=== PATIENT | male | born 1975 | race Caucasian/White ===

== ENCOUNTER → 2017-08-23 15:08 | Outpatient (CLI) | payer OTHER, MEDICAID, SELFPAY ==
[2017-08-23 15:30] LABS: Add Manual Diff / Slide Review NO; Basophils Percent Auto 0.5 % (0-2); Eosinophils Percent Auto 2.3 % (2-4); Hematocrit 37.2 % (41-53); Hemoglobin 12.6 g/dL (13.5-17.5); Lymphocytes Percent Auto 21.5 % (25-40); Mean Corpuscular Hemoglobin 34.2 PG (26-34); Mean Corpuscular Volume 100.6 fL (80-100); Monocytes Percent Auto 6.6 % (3-14); Neutrophils Absolute Auto 3700 /uL (3000-5900); Neutrophils Percent Auto 69.1 % (50-75); Platelet Count 43 X10^3/uL (150-400); Red Cell Distribution Width 13.4 % (11.6-14.8); White Blood Cell Count 5.4 X10^3/uL (4.5-11.0)
[2017-08-23 19:26] LABS: Alanine Aminotransferase 93 IU/L (21-72); Albumin 4.7 g/dL (3.5-5.0); Albumin Globulin Ratio 1.5 (1.0-2.8); Alkaline Phosphatase 117 U/L (38-126); Aspartate Aminotransferase 117 IU/L (17-59); BUN Creatinine Ratio 14.4 (6-22); Bilirubin Total 1.3 mg/dL (0.2-1.3); Calcium 8.9 mg/dL (8.4-10.2); Estimated Glomerular Filt Rate > 60.0 mL/min (>60); Globulin 3.1 g/dL (1.7-4.1); Glucose 392 mg/dL (70-100); HEMOLYSIS 16 (0-50); Potassium 4.1 mmol/L (3.4-5.1); Sodium 139 mmol/L (137-145); Total Protein 7.8 g/dL (6.3-8.2)
--- NOTE | 2017-08-24 14:40 | PC.NURSE ---
Patient calling to inquire about current PLT count which was 43K on 08/23/17. Patient is currently taking Gleevec. He is concerned because his platelets are low, and he is not due to be rechecked for [address] Szymanski and see if he would like to recheck patient's CBC weekly for the time being.
--- NOTE | 2017-09-07 16:14 | PC.NURSE ---
Received phone message from Lelo Han (Fred's mom) requesting a lorazepam refill for Fred. Called Dr Willingham office, as it is unclear whether or not they are refilling his lorazepam or not. Awaiting return call from Dr Willingham nurse.
== END ==
PROVIDERS: Family Provider Family Medicine; PCP Family Medicine; Visit Provider Internal Medicine Hematology & Oncology
DX: C92.10 Chronic myeloid leukemia, BCR/ABL-positive, not having achieved remission (principal)
CPT/HCPCS: 36415; 80053; 83036; 85025

== ENCOUNTER → 2017-08-30 11:11 | Outpatient (CLI) | payer OTHER, MEDICAID, SELFPAY ==
[2017-08-30 12:17] LABS: Add Manual Diff / Slide Review NO; Basophils Percent Auto 0.6 % (0-2); Eosinophils Percent Auto 3.2 % (2-4); Hematocrit 33.9 % (41-53); Hemoglobin 11.6 g/dL (13.5-17.5); Lymphocytes Percent Auto 35.5 % (25-40); Mean Corpuscular HGB Conc 34.2 % (30-36); Mean Corpuscular Hemoglobin 34.5 PG (26-34); Neutrophils Absolute Auto 1300 /uL (3000-5900); Neutrophils Percent Auto 51.7 % (50-75); Platelet Count 50 X10^3/uL (150-400); Red Blood Cell Count 3.35 X10^6/uL (4.5-5.9); Red Cell Distribution Width 13.9 % (11.6-14.8); White Blood Cell Count 2.5 X10^3/uL (4.5-11.0)
[2017-08-30 13:36] LABS: Hemoglobin A1C% w Est Avg Glu 7.3 % (4.0-6.0)
[2017-08-30 13:46] LABS: Alanine Aminotransferase 59 IU/L (21-72); Albumin 4.3 g/dL (3.5-5.0); Albumin Globulin Ratio 1.4 (1.0-2.8); Alkaline Phosphatase 100 U/L (38-126); Aspartate Aminotransferase 88 IU/L (17-59); Bilirubin Total 0.6 mg/dL (0.2-1.3); Calcium 8.6 mg/dL (8.4-10.2); Estimated Glomerular Filt Rate > 60.0 mL/min (>60); Glucose 318 mg/dL (70-100); HEMOLYSIS < 15 (0-50); Potassium 4.4 mmol/L (3.4-5.1); Sodium 143 mmol/L (137-145); Total Protein 7.3 g/dL (6.3-8.2)
--- NOTE | 2017-08-31 10:04 | PC.NURSE ---
noted plt count up to 50. Per Dr Szymanski, pt needs to hold Gleevec until plt >75.
--- NOTE | 2017-09-10 09:46 | PC.NURSE ---
Per Marie's triage note from yesteday: Sara called and left message for Fred's mom Lelo to explain that Jolie Gray [employer] SUPERVIS[employer] does not want to prescribe narcotics or benzodiazapines. She left a message for mom. A visit with provider may be needed to develop a plan to control nausea with another medication. Dr Willingham is also not willing to prescribe the lorazepam that he is requesting. Per mom Lelo, Fred is no longer taking any narcotics for pain control.
--- NOTE | 2017-12-27 14:27 | ONC.NAV ---
Description: T/C re: appt. reminder Activity: Left a detailed message for pt that we moved his appointment from 01/03 to 01/04 at 3:00pm, due to Dr. Camarena now having credentialing with [facility]. Encouraged him to return this call should he have any questions.
== END ==
PROVIDERS: Family Provider Family Medicine; PCP Family Medicine; Visit Provider Internal Medicine Hematology & Oncology
DX: C92.10 Chronic myeloid leukemia, BCR/ABL-positive, not having achieved remission (principal); E11.9 Type 2 diabetes mellitus without complications; R73.9 Hyperglycemia, unspecified
CPT/HCPCS: 36415; 80053; 83036; 85025

== ENCOUNTER 2017-08-31 21:17 | Emergency (ER) | payer OTHER, MEDICAID, SELFPAY ==
[2017-08-31 21:33] VITALS: BP 134/91; PULSE 89; RESP 18; TEMP 36.6; O2SAT 100; BMI 21.1
--- NOTE | 2017-08-31 21:36 | ED.HA ---
HPI - Headache General Chief Complaint: Headache Stated Complaint: DISORIENTED Time Seen by Provider: 08/31/17 21:36 Source: patient Mode of arrival: ambulatory Limitations: no limitations History of Present Illness HPI Narrative: Patient presents to the emergency department today with a chief complaint of a headache over the past few days. He denies any fever chills nor neck pain. He denies any injury nor other symptoms such as numbness, tingling or weakness. Chronically suffers from headaches. He denies any change in his medications. MD Complaint: headache Onset (ago): day(s) Onset description: gradual Severity: moderate Quality: aching and throbbing Relieving factors: nothing Exacerbating factors: none Associated symptoms: none Related Data Previous Rx's Medication Instructions Recorded Syringes syr #30 10/19/16 insulin lispro [Humalog KwikPen 1 - 12 unit SQ TIDCC #1 ea 03/25/17 Insulin] ondansetron [Zofran ODT] 4 mg SUBLINGUAL Q6HP PRN #30 odt 05/17/17 [place] ea #100 05/24/17 insulin glargine [Lantus Solostar 15 u SQ BID #1 ea 06/23/17 U-100 Insulin] imatinib [Gleevec] 300 mg PO QDAY #60 tab 07/02/17 docusate sodium [Colace] 100 mg PO QDAY PRN #10 cap 07/13/17 hydrocodone-acetaminophen [[place]] 1 - 2 tab PO Q6HP PRN #5 tab 07/13/17 hydrocortisone acetate [Anusol-HC] 25 mg R BID #14 supp 07/15/17 magnesium citrate 273 ml PO ONCE #1 bot 07/15/17 simethicone [Gas-X Extra Strength] 125 mg PO Q6HP PRN #30 cap 07/15/17 ondansetron [Zofran ODT] 4 mg SUBLINGUAL Q6HP PRN #20 odt 07/26/17 True Metrix test strips #100 each 08/18/17 Allergies Allergy/AdvReac Type Severity Reaction Status Date / Time Penicillins [PENICILLINS] Allergy Severe Tongue Verified 08/31/17 22:43 swelling, hives adhesive Allergy Unknown PLASTIC Verified 08/31/17 22:43 TAPE latex [LATEX] Allergy Unknown Verified 08/31/17 22:43 Review of Systems Review of Systems All systems reviewed & are unremarkable except as noted in HPI and below Constitutional Denies chills, Denies fever(s), Reports headache(s), Denies lethargy and Denies weakness Eyes Denies change in vision, Denies eye discharge, Denies irritation and Denies loss of vision ENT Ears, Nose, Mouth, and Throat: Reports headache(s) Cardiovascular Denies chest pain, Denies irregular heart rhythm, Denies lightheadedness, Denies palpitations and Denies orthopnea Gastrointestinal Gastrointestinal: Denies abdominal pain, Denies change in bowel habits, Denies diarrhea, Denies nausea and Denies vomiting Musculoskeletal Denies back pain, Denies muscle weakness, Denies numbness and Denies tingling Neurologic Denies confusion, Reports headache(s), Denies loss of vision, Denies numbness, Denies tingling and Denies weakness Psychiatric Denies anxiety, Denies confusion, Denies depression, Denies homicidal ideation and Denies suicidal ideation Endocrine Denies palpitations [facility] Surgical History Status post appendectomy Exam Narrative Exam Narrative: Pleasant 41-year-old male in normal state of health, no obvious distress Initial Vital Signs Initial Vital Signs: Vital Signs Temperature 97.9 F 08/31/17 21:33 Pulse Rate 89 08/31/17 21:33 Respiratory Rate 18 08/31/17 21:33 Blood Pressure 134/91 H 08/31/17 21:33 Pulse Oximetry 100 08/31/17 21:33 Const General: cooperative and well developed Nutritional Appearance: well nourished Orientation: alert, awake, oriented x3 and not confused [facility] Head: normocephalic and atraumatic Ears: external ears normal and TM's normal bilaterally Nose: external nose normal and No nasal discharge Face and sinus: sinuses nontender, face symmetric, no sinus tenderness and No dry mucous membranes Mouth: oral mucosae normal and moist mucous membranes Teeth and gingiva: dentition normal Throat: tonsils normal and uvula midline Neck Neck: normal visual inspection, trachea midline, No lymphadenopathy, No midline deformity and No JVD Lymphatic: No lymphedema Resp Effort & Inspection: normal respiratory effort, able to speak in complete sentences, no respiratory distress and no use of accessory muscles Auscultation: clear to auscultation bilaterally, no rales, no rhonchi and no wheezes GI Inspection: non-distended Palpation: soft, no hepatosplenomegaly, No guarding, No pulsatile mass and No tender Auscultation: normal bowel sounds Skin General: no rashes or lesions noted, No jaundice and No petechiae Neuro General: alert, oriented x3, gait normal and no focal motor deficits Speech: speech normal Extrem General: full ROM, no clubbing, cyanosis or edema, no pedal edema and no calf tenderness Course Orders Ordered: ED Orders 08/31/17 21:42 CT head/brain wo con Stat 08/31/17 22:25 Basic Metabolic Panel Stat Complete Blood Count AUTO DIFF Stat Discontinued Medications Dexamethasone (Decadron) 10 mg IV NOW ONE Stop: 08/31/17 21:43 Last Admin: 08/31/17 22:44 Dose: 10 mg Diphenhydramine HCl (Benadryl) 25 mg IV NOW ONE Stop: 08/31/17 21:43 Last Admin: 08/31/17 22:44 Dose: 25 mg Sodium Chloride (Normal Saline 0.9%) 1,000 mls @ 1,000 mls/hr IV BOLUS ONE Stop: 08/31/17 22:41 Last Admin: 08/31/17 22:44 Dose: 1,000 mls/hr Metoclopramide HCl (Reglan) 10 mg IV NOW ONE Stop: 08/31/17 21:43 Last Admin: 08/31/17 22:44 Dose: 10 mg Reevaluation(s) Reevaluation #1: Patient is awake, alert and oriented. He continues to be at baseline. His neurologic exam is unremarkable. He states that he is getting anxious and wants some Ativan. He was written 90 pills on August 03 and should therefore still have some left. He states that he does not. Time: 23:31 Vital Signs - 8 hr 08/31/17 21:33 08/31/17 22:53 Temperature 97.9 F Pulse Rate 89 88 Respiratory Rate 18 16 Blood Pressure 134/91 H Blood Pressure [Left Arm] 129/85 H Pulse Oximetry 100 98 MDM - Headache Differential Diagnosis Differential diagnosis: Likely migraine, tension headache, subarachnoid hemorrhage, headache, meningitis and sinusitis Medical Records Attestation: I reviewed the patient's medical records. Lab Data Attestation: I reviewed the patient's lab results. Result diagrams: 08/31/17 22:25 08/31/17 22:25 Lab Results 08/31/17 08/31/17 Range/Units 22:25 22:25 WBC 4.1 L D (4.5-11.0) X10^3/uL RBC 3.40 L (4.5-5.9) X10^6/uL Hgb 11.8 L (13.5-17.5) g/dL Hct 34.2 L (41-53) % MCV 100.5 H (80-100) fL MCH 34.7 H (26-34) PG MCHC 34.6 (30-36) % RDW 14.4 (11.6-14.8) % Plt Count 67 L (150-400) X10^3/uL Neut % (Auto) 54.2 (50-75) % Lymph % (Auto) 34.9 (25-40) % [place] % (Auto) 7.4 (3-14) % Eos % (Auto) 2.6 (2-4) % Baso % (Auto) 0.9 (0-2) % Neut # (Auto) 2200 L (9121-9576) /uL Sodium 148 H (137-145) mmol/L Potassium 4.0 (3.4-5.1) mmol/L Chloride 105.0 (98-107) mmol/L Carbon Dioxide 23.0 (22-32) mmol/L BUN 6.0 L (9-20) mg/dL Creatinine 0.90 (0.66-1.25) mg/dL Estimated GFR > 60.0 (>60) mL/min BUN/Creatinine Ratio 6.7 (6-22) Glucose 248 H (70-100) mg/dL Calcium 8.4 (8.4-10.2) mg/dL Imaging Data CT scan - head: Attestation: I personally reviewed and interpreted this imaging study as follows: My impression: No bleed or mass Radiologist's impression: NAP Discharge Plan Departure Patient Disposition: Home, Self-Care Clinical Impression: Headache Instructions: DI for Headache Activity Restrictions/Additional Instructions: *You have been diagnosed with headache *What to do: Stay well hydrated, take Tylenol or Motrin for pain *Take other medications as directed *Follow up with your primary care provider in 2-3 days [and follow up with ortho, urology etc] *Return to ER if you should have any new, worsening or concerning symptoms Prescriptions: No Action Syringes Qty: 30 RF: 12 insulin lispro [Humalog KwikPen Insulin] 100 UNIT/1 ML insulin pen 1 - 12 unit SQ TIDCC Qty: 1 RF: 3 ondansetron [Zofran ODT] 4 MG tablet,disintegrating 4 mg Sublingual Q6HP PRNQty: 30 RF: 0 [place] Qty: 100 RF: 6 insulin glargine [Lantus Solostar U-100 Insulin] 100 UNIT/1 ML insulin pen 15 u SQ BID Qty: 1 RF: 3 imatinib [Gleevec] 100 MG tablet 300 mg PO QDAY Qty: 60 RF: 0 docusate sodium [Colace] 100 MG capsule 100 mg PO QDAY PRNQty: 10 RF: 0 hydrocodone-acetaminophen [[place]] 5 MG/325 MG tablet 1 - 2 tab PO Q6HP PRNQty: 5 RF: 0 simethicone [Gas-X Extra Strength] 125 MG capsule 125 mg PO Q6HP PRNQty: 30 RF: 0 hydrocortisone acetate [Anusol-HC] 25 MG suppository 25 mg R BID Qty: 14 RF: 0 magnesium citrate 296 ML solution 273 ml PO ONCE Qty: 1 RF: 0 ondansetron [Zofran ODT] 4 MG tablet,disintegrating 4 mg Sublingual Q6HP PRNQty: 20 RF: 0 True Metrix test strips Qty: 100 RF: 1 Stand Alone Forms: Against Medical Advice
--- NOTE | 2017-08-31 21:42 | DI.CT.S_ITS ---
PROCEDURE: CT HEAD/BRAIN WO CON INDICATIONS: severe headache, sudden onset, extensive med hx TECHNIQUE: Noncontrast 4.5 mm thick angled axial sections acquired from the foramen magnum to the vertex, with coronal and sagittal reformats. For radiation dose reduction, the following was used: automated exposure control, adjustment of mA and/or kV according to patient size. COMPARISON: [facility], CT, HEAD WITHOUT CONTRAST, 07/26/2017, 3:49. FINDINGS: Image quality: Excellent. CSF spaces: Basal cisterns are patent. No extra-axial fluid collections. Ventricles are normal in size and shape. Brain: No midline shift. Punctate bilateral basal ganglia calcifications. Diffuse volume loss, which is slightly more than expected for patient's age although the actual clinical significance is unknown. No intracranial masses or hemorrhage. Patino-white matter interface is normal. Skull and face: Calvarium and visualized facial bones are intact, without suspicious lesions. Sinuses: Visualized sinuses and mastoids are clear. IMPRESSION: No acute intracranial process. Dictated by: Yariel Dumont M.D. on 09/01/2017 at 7:05 Approved by: Yariel Dumont M.D. on 09/01/2017 at 7:07
[2017-08-31 22:44] LABS: Add Manual Diff / Slide Review NO; Basophils Percent Auto 0.9 % (0-2); Eosinophils Percent Auto 2.6 % (2-4); Hematocrit 34.2 % (41-53); Hemoglobin 11.8 g/dL (13.5-17.5); Lymphocytes Percent Auto 34.9 % (25-40); Mean Corpuscular HGB Conc 34.6 % (30-36); Mean Corpuscular Hemoglobin 34.7 PG (26-34); Mean Corpuscular Volume 100.5 fL (80-100); Monocytes Percent Auto 7.4 % (3-14); Neutrophils Absolute Auto 2200 /uL (3000-5900); Neutrophils Percent Auto 54.2 % (50-75); Platelet Count 67 X10^3/uL (150-400); Red Cell Distribution Width 14.4 % (11.6-14.8); White Blood Cell Count 4.1 X10^3/uL (4.5-11.0)
[2017-08-31] MEDS: SODIUM CHLORIDE 0.9% 1,000 ML 1000 ML IV (22:44)
[2017-08-31] MEDS: DEXAMETHASONE 10 MG/ML VIAL IV (22:44)
[2017-08-31] MEDS: diphenhydrAMINE 50 MG/ML VIAL 25 MG IV (22:44)
[2017-08-31] MEDS: METOCLOPRAMIDE 10 MG/2 ML INJ IV (22:44)
[2017-08-31 22:49] LABS: BUN Creatinine Ratio 6.7 (6-22); Calcium 8.4 mg/dL (8.4-10.2); Estimated Glomerular Filt Rate > 60.0 mL/min (>60); Glucose 248 mg/dL (70-100); HEMOLYSIS < 15 (0-50); Sodium 148 mmol/L (137-145)
[2017-08-31 22:53] VITALS: BP 129/85; PULSE 88; RESP 16; O2SAT 98
--- NOTE | 2017-08-31 23:48 | ED_ITS ---
HPI - Headache General Chief Complaint: Headache Stated Complaint: DISORIENTED Time Seen by Provider: 08/31/17 21:36 Source: patient Mode of arrival: ambulatory Limitations: no limitations History of Present Illness HPI Narrative: Patient presents to the emergency department today with a chief complaint of a headache over the past few days. He denies any fever chills nor neck pain. He denies any injury nor other symptoms such as numbness, tingling or weakness. Chronically suffers from headaches. He denies any change in his medications. MD Complaint: headache Onset (ago): day(s) Onset description: gradual Severity: moderate Quality: aching and throbbing Relieving factors: nothing Exacerbating factors: none Associated symptoms: none Related Data Previous Rx's Medication Instructions Recorded Syringes syr #30 10/19/16 insulin lispro [Humalog KwikPen 1 - 12 unit SQ TIDCC #1 ea 03/25/17 Insulin] ondansetron [Zofran ODT] 4 mg SUBLINGUAL Q6HP PRN #30 odt 05/17/17 [place] ea #100 05/24/17 insulin glargine [Lantus Solostar 15 u SQ BID #1 ea 06/23/17 U-100 Insulin] imatinib [Gleevec] 300 mg PO QDAY #60 tab 07/02/17 docusate sodium [Colace] 100 mg PO QDAY PRN #10 cap 07/13/17 hydrocodone-acetaminophen [[place]] 1 - 2 tab PO Q6HP PRN #5 tab 07/13/17 hydrocortisone acetate [Anusol-HC] 25 mg R BID #14 supp 07/15/17 magnesium citrate 273 ml PO ONCE #1 bot 07/15/17 simethicone [Gas-X Extra Strength] 125 mg PO Q6HP PRN #30 cap 07/15/17 ondansetron [Zofran ODT] 4 mg SUBLINGUAL Q6HP PRN #20 odt 07/26/17 True Metrix test strips #100 each 08/18/17 Allergies Allergy/AdvReac Type Severity Reaction Status Date / Time Penicillins [PENICILLINS] Allergy Severe Tongue Verified 08/31/17 22:43 swelling, hives adhesive Allergy Unknown PLASTIC Verified 08/31/17 22:43 TAPE latex [LATEX] Allergy Unknown Verified 08/31/17 22:43 Review of Systems Review of Systems All systems reviewed & are unremarkable except as noted in HPI and below Constitutional Denies chills, Denies fever(s), Reports headache(s), Denies lethargy and Denies weakness Eyes Denies change in vision, Denies eye discharge, Denies irritation and Denies loss of vision ENT Ears, Nose, Mouth, and Throat: Reports headache(s) Cardiovascular Denies chest pain, Denies irregular heart rhythm, Denies lightheadedness, Denies palpitations and Denies orthopnea Gastrointestinal Gastrointestinal: Denies abdominal pain, Denies change in bowel habits, Denies diarrhea, Denies nausea and Denies vomiting Musculoskeletal Denies back pain, Denies muscle weakness, Denies numbness and Denies tingling Neurologic Denies confusion, Reports headache(s), Denies loss of vision, Denies numbness, Denies tingling and Denies weakness Psychiatric Denies anxiety, Denies confusion, Denies depression, Denies homicidal ideation and Denies suicidal ideation Endocrine Denies palpitations [facility] Surgical History Status post appendectomy Exam Narrative Exam Narrative: Pleasant 41-year-old male in normal state of health, no obvious distress Initial Vital Signs Initial Vital Signs: Vital Signs Temperature 97.9 F 08/31/17 21:33 Pulse Rate 89 08/31/17 21:33 Respiratory Rate 18 08/31/17 21:33 Blood Pressure 134/91 H 08/31/17 21:33 Pulse Oximetry 100 08/31/17 21:33 Const General: cooperative and well developed Nutritional Appearance: well nourished Orientation: alert, awake, oriented x3 and not confused [facility] Head: normocephalic and atraumatic Ears: external ears normal and TM's normal bilaterally Nose: external nose normal and No nasal discharge Face and sinus: sinuses nontender, face symmetric, no sinus tenderness and No dry mucous membranes Mouth: oral mucosae normal and moist mucous membranes Teeth and gingiva: dentition normal Throat: tonsils normal and uvula midline Neck Neck: normal visual inspection, trachea midline, No lymphadenopathy, No midline deformity and No JVD Lymphatic: No lymphedema Resp Effort & Inspection: normal respiratory effort, able to speak in complete sentences, no respiratory distress and no use of accessory muscles Auscultation: clear to auscultation bilaterally, no rales, no rhonchi and no wheezes GI Inspection: non-distended Palpation: soft, no hepatosplenomegaly, No guarding, No pulsatile mass and No tender Auscultation: normal bowel sounds Skin General: no rashes or lesions noted, No jaundice and No petechiae Neuro General: alert, oriented x3, gait normal and no focal motor deficits Speech: speech normal Extrem General: full ROM, no clubbing, cyanosis or edema, no pedal edema and no calf tenderness Course Orders Ordered: ED Orders 08/31/17 21:42 CT head/brain wo con Stat 08/31/17 22:25 Basic Metabolic Panel Stat Complete Blood Count AUTO DIFF Stat Discontinued Medications Dexamethasone (Decadron) 10 mg IV NOW ONE Stop: 08/31/17 21:43 Last Admin: 08/31/17 22:44 Dose: 10 mg Diphenhydramine HCl (Benadryl) 25 mg IV NOW ONE Stop: 08/31/17 21:43 Last Admin: 08/31/17 22:44 Dose: 25 mg Sodium Chloride (Normal Saline 0.9%) 1,000 mls @ 1,000 mls/hr IV BOLUS ONE Stop: 08/31/17 22:41 Last Admin: 08/31/17 22:44 Dose: 1,000 mls/hr Metoclopramide HCl (Reglan) 10 mg IV NOW ONE Stop: 08/31/17 21:43 Last Admin: 08/31/17 22:44 Dose: 10 mg Reevaluation(s) Reevaluation #1: Patient is awake, alert and oriented. He continues to be at baseline. His neurologic exam is unremarkable. He states that he is getting anxious and wants some Ativan. He was written 90 pills on August 03 and should therefore still have some left. He states that he does not. Time: 23:31 Vital Signs - 8 hr 08/31/17 21:33 08/31/17 22:53 Temperature 97.9 F Pulse Rate 89 88 Respiratory Rate 18 16 Blood Pressure 134/91 H Blood Pressure [Left Arm] 129/85 H Pulse Oximetry 100 98 MDM - Headache Differential Diagnosis Differential diagnosis: Likely migraine, tension headache, subarachnoid hemorrhage, headache, meningitis and sinusitis Medical Records Attestation: I reviewed the patient's medical records. Lab Data Attestation: I reviewed the patient's lab results. Result diagrams: 08/31/17 22:25 08/31/17 22:25 Lab Results 08/31/17 08/31/17 Range/Units 22:25 22:25 WBC 4.1 L D (4.5-11.0) X10^3/uL RBC 3.40 L (4.5-5.9) X10^6/uL Hgb 11.8 L (13.5-17.5) g/dL Hct 34.2 L (41-53) % MCV 100.5 H (80-100) fL MCH 34.7 H (26-34) PG MCHC 34.6 (30-36) % RDW 14.4 (11.6-14.8) % Plt Count 67 L (150-400) X10^3/uL Neut % (Auto) 54.2 (50-75) % Lymph % (Auto) 34.9 (25-40) % Ross % (Auto) 7.4 (3-14) % Eos % (Auto) 2.6 (2-4) % Baso % (Auto) 0.9 (0-2) % Neut # (Auto) 2200 L (0087-7106) /uL Sodium 148 H (137-145) mmol/L Potassium 4.0 (3.4-5.1) mmol/L Chloride 105.0 (98-107) mmol/L Carbon Dioxide 23.0 (22-32) mmol/L BUN 6.0 L (9-20) mg/dL Creatinine 0.90 (0.66-1.25) mg/dL Estimated GFR > 60.0 (>60) mL/min BUN/Creatinine Ratio 6.7 (6-22) Glucose 248 H (70-100) mg/dL Calcium 8.4 (8.4-10.2) mg/dL Imaging Data CT scan - head: Attestation: I personally reviewed and interpreted this imaging study as follows: My impression: No bleed or mass Radiologist's impression: NAP Discharge Plan Departure Patient Disposition: Home, Self-Care Clinical Impression: Headache Instructions: DI for Headache Activity Restrictions/Additional Instructions: *You have been diagnosed with headache *What to do: Stay well hydrated, take Tylenol or Motrin for pain *Take other medications as directed *Follow up with your primary care provider in 2-3 days [and follow up with ortho , urology etc] *Return to ER if you should have any new, worsening or concerning symptoms Prescriptions: No Action Syringes Qty: 30 RF: 12 insulin lispro [Humalog KwikPen Insulin] 100 UNIT/1 ML insulin pen 1 - 12 unit SQ TIDCC Qty: 1 RF: 3 ondansetron [Zofran ODT] 4 MG tablet,disintegrating 4 mg Sublingual Q6HP PRNQty: 30 RF: 0 [place] Qty: 100 RF: 6 insulin glargine [Lantus Solostar U-100 Insulin] 100 UNIT/1 ML insulin pen 15 u SQ BID Qty: 1 RF: 3 imatinib [Gleevec] 100 MG tablet 300 mg PO QDAY Qty: 60 RF: 0 docusate sodium [Colace] 100 MG capsule 100 mg PO QDAY PRNQty: 10 RF: 0 hydrocodone-acetaminophen [[place]] 5 MG/325 MG tablet 1 - 2 tab PO Q6HP PRNQty: 5 RF: 0 simethicone [Gas-X Extra Strength] 125 MG capsule 125 mg PO Q6HP PRNQty: 30 RF: 0 hydrocortisone acetate [Anusol-HC] 25 MG suppository 25 mg R BID Qty: 14 RF: 0 magnesium citrate 296 ML solution 273 ml PO ONCE Qty: 1 RF: 0 ondansetron [Zofran ODT] 4 MG tablet,disintegrating 4 mg Sublingual Q6HP PRNQty: 20 RF: 0 True Metrix test strips Qty: 100 RF: 1 Stand Alone Forms: Against Medical Advice
[2017-09-01 00:01] VITALS: BP 122/84; PULSE 98; RESP 16; O2SAT 98
== END 2017-09-01 00:06 | disposition home or self-care (01) ==
PROVIDERS: Emergency Provider Emergency Medicine; Family Provider Internal Medicine Hematology & Oncology; PCP Family Medicine
DX: R51 Headache (principal)
CPT/HCPCS: 36591; 70450; 80048; 82962; 85025; 96361; 96374; 96375; 99283; 99284; J1100; J1200; J2765

== ENCOUNTER 2017-09-29 11:30 | Outpatient (RCR) | payer OTHER, MEDICAID, SELFPAY ==
--- NOTE | 2017-08-25 09:46 | PT.OIE ---
Current Diagnoses Chronic pain due to trauma (08/25/17) Weakness (08/25/17) History of falling (08/25/17) Past Surgical History Status post appendectomy Provider Visit Care Team Role Provider Type Madalyn Willingham DO Attending Provider Physician Family Provider Primary Care Provider Specialty: Family Practice Address: [address] [place] [address], [id number] Email: [email or web address] Therapy Initial Evaluation PT-OP-A Visit Information Start: 08/25/17 08:08 Freq: Status: Active Protocol: Document 08/25/17 08:15 SAK (Rec: 08/25/17 09:20 SAK [id number]) Out-Patient Physical Therapy Visit Information Visit Information Visit Type Initial Evaluation Visit Start Time 08:15 Visit Stop Time 09:15 Total Visit Minutes 60 Visit Number 05/05 Number of WRAPPER STRIPPER Visits 0 Evaluation Information Evaluation Date 08/25/17 PT-OP-B Current Condition Start: 08/25/17 08:08 Freq: Status: Active Protocol: Document 08/25/17 08:16 SAK (Rec: 08/25/17 09:09 SAK [id number]) Current Condition History of Current Condition History of Current Condition Referred to PT due to function -limiting pain and weakness which started 15 yrs ago with accident;states he broke neck had cervical fusion. States 11 years ago diagnosed with cancer and started chemo, underwent lumbar fusion surgery. Onset of DM 15 yrs ago. 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 Has had falls related to neuropathy in feet, legs giving way. Uses cane, previously used walker. Daily chemo at this time. Able to take short walks. left leg stronger than right. Prior Treatments and Tests Imaging shows back messed up . c/s fusion. Future Testing and Treatments Planned Ongoing chemotherapy Treatment Goals Patient/Caregiver Goals Wants to gain strength, improve mobility of legs so they don't cramp up as much. Return to fishing, able to play with dog. Prior Functional Status Baseline Function- ADL's Independent Baseline Function- Mobility Independent Baseline Function- Recreation/Hobbies fishing, playing with dog Baseline Function- Other Caregiver 2x/wk for cooking, cleaning, shopping, etc. Uses barbells for UE's, a few ex in bed. Current Functional Impairments (Reported) Functional Limitations- Mobility/Gait uses cane for gait. 2 falls in past 6 months Functional Limitations- Work/School unable Functional Limitations- Recreation/ unable to go fishing, play Hobbies with dog. PT-OP-C Subjective Start: 08/25/17 08:08 Freq: Status: Active Protocol: Document 08/25/17 08:16 [facility] (Rec: 08/25/17 09:09 [facility] [id number]) OP-PT Pain Assessment Pain Assessment Grid Paper Pain Assessment Grid Completed Yes: cervical and lumbar spines, bilateral lower legs Location Bilateral Back Description Aching Chronic Cramping Throbbing Pain Aggravating Factors Activity Pain Alleviating Factors None PT-OP-E Functional Tests Start: 08/25/17 08:08 Freq: Status: Active Protocol: Document 08/25/17 09:20 [facility] (Rec: 08/25/17 09:25 [facility] [id number]) Functional Tests Other 3 Name of Test tandem stand Comment unable 2 Name of Test stand eyes closed Comment unsteady 1 Name of Test sls Score unable PT-OP-F Manual Assessment Start: 08/25/17 08:08 Freq: Status: Active Protocol: Document 08/25/17 09:20 [facility] (Rec: 08/25/17 09:25 [facility] [id number]) Manual Assessments Soft Tissue Assessment Soft Tissue Mobility Assessment decreased mobility of paraspinal musculature throughout PT-OP-G Mobility & Gait Start: 08/25/17 08:08 Freq: Status: Active Protocol: Document 08/25/17 09:20 [facility] (Rec: 08/25/17 09:25 [facility] [id number]) OP Gait Assessment Gait Gait Assistance Required: Standby Assistance Distance (Feet) (feet) 75 Assistive Devices Assistive Device Straight Cane Orthotic/Prosthetic Devices or Brace: No Gait Deviations General Gait Pattern Decreased Stride Length Flexed Trunk Wide Based Gait Factors Limiting Gait Function Factors Limiting Gait Function Decreased Activity Tolerance Decreased Strength Pain Poor Balance PT-OP-J Posture/Palpation/Skin Start: 08/25/17 08:08 Freq: Status: Active Protocol: Document 08/25/17 09:20 [facility] (Rec: 08/25/17 09:25 [facility] [id number]) Posture Evaluation Position Standing Head/C-Spine Posture Flexed T-Spine Posture Increased Kyphosis Thorax Posture (R) Prominent L-Spine Posture Decreased Lordosis Flexed PT-OP-K Range of Motion Start: 08/25/17 08:08 Freq: Status: Active Protocol: Document 08/25/17 09:25 [facility] (Rec: 08/25/17 09:46 [facility] [id number]) Cervical Spine Range of Motion Cervical Spine Active Testing Position Supine ROM Limitations Pain Lumbar Spine Range of Motion Lumbar Spine Active ROM Limitations Pain Hip Goniometric Range of Motion Hip Measured in Degrees Active Hip ROM WFL No Hip ROM Limitations Hip ROM Limitations Soft Tissue Tightness Muscle Weakness Comments severe hamstring tightness with SLR left 40, right 45 Knee Goniometric Range of Motion Knee ROM Limitations Knee ROM Limitations Soft Tissue Tightness Muscle Weakness Ankle and Foot Goniometric Range of Motion Ankle and Foot ROM Limitations ROM Limitations Soft Tissue Tightness Muscle Weakness Comments mod heelcord tightness PT-OP-M Strength Start: 08/25/17 08:08 Freq: Status: Active Protocol: Document 08/25/17 09:25 [facility] (Rec: 08/25/17 09:46 [facility] [id number]) Trunk Strength Trunk Manual Muscle Testing Testing Position Prone Flexion 3 Fair Extension 3+ Fair+ Core Stabilization poor Comments testing painful Hip Strength Hip Manual Muscle Testing Right Flexion (L2) 3+ Fair+ Extension (S1) 3- Fair- Abduction 3- Fair- Adduction 3- Fair- External Rotation 3+ Fair+ Left Flexion (L2) 4- Good- Extension (S1) 3+ Fair+ Abduction 3- Fair- External Rotation 3- Fair- Internal Rotation 3+ Fair+ Knee Strength Knee Manual Muscle Testing Right Flexion (S2) 4- Good- Extension (L3) 4- Good- Left Flexion (S2) 4+ Good+ Extension (L3) 4+ Good+ Ankle/Foot Strength Ankle and Foot Manual Muscle Testing Right Dorsiflexion (L4) 4- Good- Plantarflexion (S1) 4- Good- Left Dorsiflexion (L4) 4+ Good+ Plantarflexion (S1) 4+ Good+ PT-OP-Q Treatments Start: 08/25/17 08:08 Freq: Status: Active Protocol: Document 08/25/17 09:25 [facility] (Rec: 08/25/17 09:46 [facility] [id number]) Self-Care/Home Management Treatment Education Patient Education Home Exercise Program Other Education written HEP PT-OP-R Modalities Start: 08/25/17 08:08 Freq: Status: Active Protocol: Document 08/25/17 09:25 [facility] (Rec: 08/25/17 09:46 [facility] [id number]) Hot Pack/Cold Pack Treatment Hot Pack Location l/s Treatment Duration (minutes) 15 Patient Tolerance Fair Comments 90/90 position PT-OP-T Assessment and Plan Start: 08/25/17 08:08 Freq: Status: Active Protocol: Document 08/25/17 09:25 [facility] (Rec: 08/25/17 09:46 [facility] [id number]) Physical Therapy Assessment Rehab Potential Rehabilitation Potential Fair Evaluation Complexity Number of Personal Factors/Comorbidities 3 or More Number of Body Systems Impaired 3 Clinical Presentation at Evaluation Unstable Impairments Impairments Activity Tolerance Balance Gait Pain Soft Tissue Mobility Strength Other Concerns Fall Risk yes Barriers to Rehabilitation chronicity of condition, multiple comorbidities Goals Four Impairment soft tissue flexibility, pain Short Term Goal (STG) Patient will be compliant with HEP for pain management and flexibility STG Duration 6 wks Shelter Goal (LTG) Patient to report at least 30% decrease in pain and be independent and compliant with HEP and aquatic exercise program for long-term pain management and fitness LTG Duration 12 wks Three Impairment balance dysfunction Short Term Goal (STG) SLS 2 sec, Tandem stand 5 sec to decrease fall risk STG Duration 6 wks Shelter Goal (LTG) SLS 5 sec, tandem stand 10 sec to decrease fall risk Two Impairment activity tolerance; patient spends most of day in bed Short Term Goal (STG) Patient will be able to resume some prior activities including light housework and playing some with his dog for improved independence and quality of life. STG Duration 6 wks Email Campaign Manager Goal (LTG) Patient will be able to resume 75% prior activities including going fishing for improved quality of life. One Impairment weakness Short Term Goal (STG) Patient able to tolerate 30-45 min low intensity aquatic exercise program and spend 25% increased time OOB. STG Duration 6 wks Email Campaign Manager Goal (LTG) Patient able to tolerate 45 min mod intensity aquatic exercise program and spend 50% increased LTG Duration 12 wks Assessment Summary Assessment Patient presents with pain, weakness, balance dysfunction, activity intolerance, decreased soft tissue mobility related to multiple medical issues including neck and back injuries s/p surgical intervention in the past, chemotherapy, DM. Feel he would benefit highly from PT, especially aquatic, to work all above goal areas. Physical Therapy Plan Frequency and Duration Frequency of Treatment 2x/Week Duration of Treatment 12 wks Plan of Care Start Date 08/25/17 Plan of Care End Date 11/22/17 Therapeutic Interventions Therapeutic Interventions Aquatic Therapy Balance Training Gait Training Home Exercise Program Manual Therapy Neuromuscular Re-education Self-Care/Home Management Therapeutic Activities Therapeutic Exercises Next Visit Focus/Plan Next Visit Plan Initiate aquatic PT Provider Signature Date
--- NOTE | 2017-08-25 09:47 | PT.OPPOC ---
Current Diagnoses Chronic pain due to trauma (08/25/17) Weakness (08/25/17) History of falling (08/25/17) Provider Visit Care Team Role Provider Type Madalyn Willingham DO Attending Provider Physician Family Provider Primary Care Provider Specialty: Family Practice Address: [address] [place] [address], [id number] Email: [email or web address] Plan Of Care PT-OP-T Assessment and Plan Start: 08/25/17 08:08 Freq: Status: Active Protocol: Document 08/25/17 09:25 [facility] (Rec: 08/25/17 09:46 SAK [id number]) Physical Therapy Assessment Rehab Potential Rehabilitation Potential Fair Evaluation Complexity Number of Personal Factors/Comorbidities 3 or More Number of Body Systems Impaired 3 Clinical Presentation at Evaluation Unstable Impairments Impairments Activity Tolerance Balance Gait Pain Soft Tissue Mobility Strength Other Concerns Fall Risk yes Barriers to Rehabilitation chronicity of condition, multiple comorbidities Goals Four Impairment soft tissue flexibility, pain Short Term Goal (STG) Patient will be compliant with HEP for pain management and flexibility STG Duration 6 wks Qa Automation Architect Goal (LTG) Patient to report at least 30% decrease in pain and be independent and compliant with HEP and aquatic exercise program for long-term pain management and fitness LTG Duration 12 wks Three Impairment balance dysfunction Short Term Goal (STG) SLS 2 sec, Tandem stand 5 sec to decrease fall risk STG Duration 6 wks Custodial Goal (LTG) SLS 5 sec, tandem stand 10 sec to decrease fall risk Two Impairment activity tolerance; patient spends most of day in bed Short Term Goal (STG) Patient will be able to resume some prior activities including light housework and playing some with his dog for improved independence and quality of life. STG Duration 6 wks Custodial Goal (LTG) Patient will be able to resume 75% prior activities including going fishing for improved quality of life. One Impairment weakness Short Term Goal (STG) Patient able to tolerate 30-45 min low intensity aquatic exercise program and spend 25% increased time OOB. STG Duration 6 wks Custodial Goal (LTG) Patient able to tolerate 45 min mod intensity aquatic exercise program and spend 50% increased LTG Duration 12 wks Assessment Summary Assessment Patient presents with pain, weakness, balance dysfunction, activity intolerance, decreased soft tissue mobility related to multiple medical issues including neck and back injuries s/p surgical intervention in the past, chemotherapy, DM. Feel he would benefit highly from PT, especially aquatic, to work all above goal areas. Physical Therapy Plan Frequency and Duration Frequency of Treatment 2x/Week Duration of Treatment 12 wks Plan of Care Start Date 08/25/17 Plan of Care End Date 11/22/17 Therapeutic Interventions Therapeutic Interventions Aquatic Therapy Balance Training Gait Training Home Exercise Program Manual Therapy Neuromuscular Re-education Self-Care/Home Management Therapeutic Activities Therapeutic Exercises Next Visit Focus/Plan Next Visit Plan Initiate aquatic PT Plan of Care Dates Plan of Care Start Date 08/25/17 Plan of Care End Date 11/22/17 Please Sign and Return: I have reviewed this Plan of Care and certify that the skilled therapy services above are required to meet the patient???s needs. Physician Signature Date Printed Name and Credentials
--- NOTE | 2017-08-25 16:12 | PC.NURSE ---
Per Dr Szymanski, pt needs to stop Gleevac for plt are only 43K and pt having nosebleeds. He would like pt to have his lab rechecked on 08/30 (CBC). Left message on pt's phone to call and schedule a lab appt on 08/30 and instructed pt to Stop his Gleevac as well. Parameter for restarting gleevac is platelets >75k. Info given to [facility] scheduler to follow up.
--- NOTE | 2017-09-01 16:24 | PT.OTN ---
Current Diagnoses Chronic pain due to trauma (09/01/17) Weakness (09/01/17) Physical Therapy Treatment Note PT-OP-A Visit Information Start: 08/25/17 08:08 Freq: Status: Active Protocol: Document 09/01/17 11:00 SAK (Rec: 09/01/17 16:24 [facility] [id number]) Out-Patient Physical Therapy Visit Information Visit Information Visit Type Treatment Note Visit Start Time 11:00 Visit Stop Time 11:40 Total Visit Minutes 40 Visit Number 06/05 Number of MINES SAFETY ENGINEER Visits 0 Evaluation Information Evaluation Date 08/25/17 PT-OP-B Current Condition Start: 08/25/17 08:08 Freq: Status: Active Protocol: Document 08/25/17 08:16 SAK (Rec: 08/25/17 09:09 [facility] [id number]) Current Condition History of Current Condition History of Current Condition Referred to PT due to function -limiting pain and weakness which started 15 yrs ago with accident;states he broke neck had cervical fusion. States 11 years ago diagnosed with cancer and started chemo, underwent lumbar fusion surgery. Onset of DM 15 yrs ago. 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 Has had falls related to neuropathy in feet, legs giving way. Uses cane, previously used walker. Daily chemo at this time. Able to take short walks. left leg stronger than right. Prior Treatments and Tests Imaging shows back messed up . c/s fusion. Future Testing and Treatments Planned Ongoing chemotherapy Treatment Goals Patient/Caregiver Goals Wants to gain strength, improve mobility of legs so they don't cramp up as much. Return to fishing, able to play with dog. Prior Functional Status Baseline Function- ADL's Independent Baseline Function- Mobility Independent Baseline Function- Recreation/Hobbies fishing, playing with dog Baseline Function- Other Caregiver 2x/wk for cooking, cleaning, shopping, etc. Uses barbells for UE's, a few ex in bed. Current Functional Impairments (Reported) Functional Limitations- Mobility/Gait uses cane for gait. 2 falls in past 6 months Functional Limitations- Work/School unable Functional Limitations- Recreation/ unable to go fishing, play Hobbies with dog. PT-OP-C Subjective Start: 08/25/17 08:08 Freq: Status: Active Protocol: Document 09/01/17 11:00 [facility] (Rec: 09/01/17 16:24 [facility] [id number]) OP-PT Subjective Patient Comments Patient Comments Patient reports it has been years since he has been in a pool; hopeful it will be helpful. PT-OP-E Functional Tests Start: 08/25/17 08:08 Freq: Status: Active Protocol: Document 08/25/17 09:20 [facility] (Rec: 08/25/17 09:25 [facility] [id number]) Functional Tests Other 3 Name of Test tandem stand Comment unable 2 Name of Test stand eyes closed Comment unsteady 1 Name of Test sls Score unable PT-OP-F Manual Assessment Start: 08/25/17 08:08 Freq: Status: Active Protocol: Document 08/25/17 09:20 [facility] (Rec: 08/25/17 09:25 [facility] [id number]) Manual Assessments Soft Tissue Assessment Soft Tissue Mobility Assessment decreased mobility of paraspinal musculature throughout PT-OP-G Mobility & Gait Start: 08/25/17 08:08 Freq: Status: Active Protocol: Document 08/25/17 09:20 [facility] (Rec: 08/25/17 09:25 [facility] [id number]) OP Gait Assessment Gait Gait Assistance Required: Standby Assistance Distance (Feet) (feet) 75 Assistive Devices Assistive Device Straight Cane Orthotic/Prosthetic Devices or Brace: No Gait Deviations General Gait Pattern Decreased Stride Length Flexed Trunk Wide Based Gait Factors Limiting Gait Function Factors Limiting Gait Function Decreased Activity Tolerance Decreased Strength Pain Poor Balance PT-OP-J Posture/Palpation/Skin Start: 08/25/17 08:08 Freq: Status: Active Protocol: Document 08/25/17 09:20 [facility] (Rec: 08/25/17 09:25 [facility] [id number]) Posture Evaluation Position Standing Head/C-Spine Posture Flexed T-Spine Posture Increased Kyphosis Thorax Posture (R) Prominent L-Spine Posture Decreased Lordosis Flexed PT-OP-K Range of Motion Start: 08/25/17 08:08 Freq: Status: Active Protocol: Document 08/25/17 09:25 [facility] (Rec: 08/25/17 09:46 [facility] [id number]) Cervical Spine Range of Motion Cervical Spine Active Testing Position Supine ROM Limitations Pain Lumbar Spine Range of Motion Lumbar Spine Active ROM Limitations Pain Hip Goniometric Range of Motion Hip Measured in Degrees Active Hip ROM WFL No Hip ROM Limitations Hip ROM Limitations Soft Tissue Tightness Muscle Weakness Comments severe hamstring tightness with SLR left 40, right 45 Knee Goniometric Range of Motion Knee ROM Limitations Knee ROM Limitations Soft Tissue Tightness Muscle Weakness Ankle and Foot Goniometric Range of Motion Ankle and Foot ROM Limitations ROM Limitations Soft Tissue Tightness Muscle Weakness Comments mod heelcord tightness PT-OP-M Strength Start: 08/25/17 08:08 Freq: Status: Active Protocol: Document 08/25/17 09:25 [facility] (Rec: 08/25/17 09:46 [facility] [id number]) Trunk Strength Trunk Manual Muscle Testing Testing Position Prone Flexion 3 Fair Extension 3+ Fair+ Core Stabilization poor Comments testing painful Hip Strength Hip Manual Muscle Testing Right Flexion (L2) 3+ Fair+ Extension (S1) 3- Fair- Abduction 3- Fair- Adduction 3- Fair- External Rotation 3+ Fair+ Left Flexion (L2) 4- Good- Extension (S1) 3+ Fair+ Abduction 3- Fair- External Rotation 3- Fair- Internal Rotation 3+ Fair+ Knee Strength Knee Manual Muscle Testing Right Flexion (S2) 4- Good- Extension (L3) 4- Good- Left Flexion (S2) 4+ Good+ Extension (L3) 4+ Good+ Ankle/Foot Strength Ankle and Foot Manual Muscle Testing Right Dorsiflexion (L4) 4- Good- Plantarflexion (S1) 4- Good- Left Dorsiflexion (L4) 4+ Good+ Plantarflexion (S1) 4+ Good+ PT-OP-Q Treatments Start: 08/25/17 08:08 Freq: Status: Active Protocol: Document 08/25/17 09:25 [facility] (Rec: 08/25/17 09:46 [facility] [id number]) Self-Care/Home Management Treatment Education Patient Education Home Exercise Program Other Education written HEP PT-OP-R Modalities Start: 08/25/17 08:08 Freq: Status: Active Protocol: Document 08/25/17 09:25 [facility] (Rec: 08/25/17 09:46 [facility] [id number]) Hot Pack/Cold Pack Treatment Hot Pack Location l/s Treatment Duration (minutes) 15 Patient Tolerance Fair Comments 90/90 position PT-OP-S Aquatic Treatment Start: 08/25/17 08:08 Freq: Status: Active Protocol: Document 09/01/17 11:00 [facility] (Rec: 09/01/17 16:24 [facility] [id number]) Aquatics Treatment Pool Entry/Exit Pool Entry/Exit Method Stairs Assistance Standby Assistance Water Walking Marching Water Level Chest Level Level of Assistance Verbal Cues Sideways Water Level Chest Level Level of Assistance Verbal Cues Backwards Water Level Chest Level Level of Assistance Verbal Cues Forwards Water Level Chest Level Level of Assistance Verbal Cues Lower Extremity Exercises 1 Details hip flex/ext, ab/ad, circles Body Position Standing Water Level Chest Level Reps/Duration 10 Lower Extremity Stretches 1 Details SKTC, DKTC Body Position Standing Water Level Delta Comments at wall Upper Extremity Exercises 1 Details shoulder hor ab/ad, flex/ext Body Position Standing Water Level Chest Level Reps/Duration 10 ea javy and unil Spinal Exercises 2 Details postural isometric Body Position Standing Water Level Chest Level Comments wall 1 Details wall squat DLS Body Position 90/90 at wall Water Level Neck Level Reps/Duration 5 min Delta Activities Delta Activities Bicycle Equipment large noodle Duration 10 PT-OP-T Assessment and Plan Start: 08/25/17 08:08 Freq: Status: Active Protocol: Document 09/01/17 11:00 [facility] (Rec: 09/01/17 16:24 [facility] [id number]) Physical Therapy Assessment Assessment Summary Assessment Patient requires frequent verbal cues for postural alignment; has tendency to be excessively flexed at hips and extended in lumbar spine. Frequent rest breaks; fatigues easily. Physical Therapy Plan Frequency and Duration Frequency of Treatment 2x/Week Duration of Treatment 12 wks Plan of Care Start Date 08/25/17 Plan of Care End Date 11/22/17 Therapeutic Interventions Therapeutic Interventions Aquatic Therapy Balance Training Gait Training Home Exercise Program Manual Therapy Neuromuscular Re-education Self-Care/Home Management Therapeutic Activities Therapeutic Exercises Next Visit Focus/Plan Next Visit Plan Progress aquatic therapy as tolerated. Please Sign and Return: I have reviewed this Plan of Care and certify that the skilled therapy services above are required to meet the patient???s needs. Physician Signature Date Printed Name and Credentials Clinical Instructor Signature Printed Name and Credentials
--- NOTE | 2017-09-29 16:44 | PT.OTN ---
Current Diagnoses Chronic pain due to trauma (09/29/17) Weakness (09/29/17) Physical Therapy Treatment Note PT-OP-A Visit Information Start: 08/25/17 08:08 Freq: Status: Active Protocol: Document 09/29/17 11:45 TMS (Rec: 09/29/17 16:43 TMS [id number]) Out-Patient Physical Therapy Visit Information Visit Information Visit Type Treatment Note Visit Start Time 11:30 Visit Stop Time 12:15 Visit Number 07/03 Number of [employer] Visits 1 PT-OP-B Current Condition Start: 08/25/17 08:08 Freq: Status: Active Protocol: Document 08/25/17 08:16 SAK (Rec: 08/25/17 09:09 SAK [id number]) Current Condition History of Current Condition History of Current Condition Referred to PT due to function -limiting pain and weakness which started 15 yrs ago with accident;states he broke neck had cervical fusion. States 11 years ago diagnosed with cancer and started chemo, underwent lumbar fusion surgery. Onset of DM 15 yrs ago. 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 Has had falls related to neuropathy in feet, legs giving way. Uses cane, previously used walker. Daily chemo at this time. Able to take short walks. left leg stronger than right. Prior Treatments and Tests Imaging shows back messed up . c/s fusion. Future Testing and Treatments Planned Ongoing chemotherapy Treatment Goals Patient/Caregiver Goals Wants to gain strength, improve mobility of legs so they don't cramp up as much. Return to fishing, able to play with dog. Prior Functional Status Baseline Function- ADL's Independent Baseline Function- Mobility Independent Baseline Function- Recreation/Hobbies fishing, playing with dog Baseline Function- Other Caregiver 2x/wk for cooking, cleaning, shopping, etc. Uses barbells for UE's, a few ex in bed. Current Functional Impairments (Reported) Functional Limitations- Mobility/Gait uses cane for gait. 2 falls in past 6 months Functional Limitations- Work/School unable Functional Limitations- Recreation/ unable to go fishing, play Hobbies with dog. PT-OP-C Subjective Start: 08/25/17 08:08 Freq: Status: Active Protocol: Document 09/29/17 11:45 TMS (Rec: 09/29/17 16:43 TMS [id number]) OP-PT Subjective Patient Comments Patient Comments Pt. states he's been sick, had extra chemo appointments and then the flu. PT-OP-E Functional Tests Start: 08/25/17 08:08 Freq: Status: Active Protocol: Document 08/25/17 09:20 [facility] (Rec: 08/25/17 09:25 [facility] [id number]) Functional Tests Other 3 Name of Test tandem stand Comment unable 2 Name of Test stand eyes closed Comment unsteady 1 Name of Test sls Score unable PT-OP-F Manual Assessment Start: 08/25/17 08:08 Freq: Status: Active Protocol: Document 08/25/17 09:20 SAK (Rec: 08/25/17 09:25 [facility] [id number]) Manual Assessments Soft Tissue Assessment Soft Tissue Mobility Assessment decreased mobility of paraspinal musculature throughout PT-OP-G Mobility & Gait Start: 08/25/17 08:08 Freq: Status: Active Protocol: Document 08/25/17 09:20 SAK (Rec: 08/25/17 09:25 [facility] [id number]) OP Gait Assessment Gait Gait Assistance Required: Standby Assistance Distance (Feet) (feet) 75 Assistive Devices Assistive Device Straight Cane Orthotic/Prosthetic Devices or Brace: No Gait Deviations General Gait Pattern Decreased Stride Length Flexed Trunk Wide Based Gait Factors Limiting Gait Function Factors Limiting Gait Function Decreased Activity Tolerance Decreased Strength Pain Poor Balance PT-OP-J Posture/Palpation/Skin Start: 08/25/17 08:08 Freq: Status: Active Protocol: Document 08/25/17 09:20 SAK (Rec: 08/25/17 09:25 [facility] [id number]) Posture Evaluation Position Standing Head/C-Spine Posture Flexed T-Spine Posture Increased Kyphosis Thorax Posture (R) Prominent L-Spine Posture Decreased Lordosis Flexed PT-OP-K Range of Motion Start: 08/25/17 08:08 Freq: Status: Active Protocol: Document 08/25/17 09:25 SAK (Rec: 08/25/17 09:46 [facility] [id number]) Cervical Spine Range of Motion Cervical Spine Active Testing Position Supine ROM Limitations Pain Lumbar Spine Range of Motion Lumbar Spine Active ROM Limitations Pain Hip Goniometric Range of Motion Hip Measured in Degrees Active Hip ROM WFL No Hip ROM Limitations Hip ROM Limitations Soft Tissue Tightness Muscle Weakness Comments severe hamstring tightness with SLR left 40, right 45 Knee Goniometric Range of Motion Knee ROM Limitations Knee ROM Limitations Soft Tissue Tightness Muscle Weakness Ankle and Foot Goniometric Range of Motion Ankle and Foot ROM Limitations ROM Limitations Soft Tissue Tightness Muscle Weakness Comments mod heelcord tightness PT-OP-M Strength Start: 08/25/17 08:08 Freq: Status: Active Protocol: Document 08/25/17 09:25 SAK (Rec: 08/25/17 09:46 SAK [id number]) Trunk Strength Trunk Manual Muscle Testing Testing Position Prone Flexion 3 Fair Extension 3+ Fair+ Core Stabilization poor Comments testing painful Hip Strength Hip Manual Muscle Testing Right Flexion (L2) 3+ Fair+ Extension (S1) 3- Fair- Abduction 3- Fair- Adduction 3- Fair- External Rotation 3+ Fair+ Left Flexion (L2) 4- Good- Extension (S1) 3+ Fair+ Abduction 3- Fair- External Rotation 3- Fair- Internal Rotation 3+ Fair+ Knee Strength Knee Manual Muscle Testing Right Flexion (S2) 4- Good- Extension (L3) 4- Good- Left Flexion (S2) 4+ Good+ Extension (L3) 4+ Good+ Ankle/Foot Strength Ankle and Foot Manual Muscle Testing Right Dorsiflexion (L4) 4- Good- Plantarflexion (S1) 4- Good- Left Dorsiflexion (L4) 4+ Good+ Plantarflexion (S1) 4+ Good+ PT-OP-Q Treatments Start: 08/25/17 08:08 Freq: Status: Active Protocol: Document 08/25/17 09:25 SAK (Rec: 08/25/17 09:46 SAK [id number]) Self-Care/Home Management Treatment Education Patient Education Home Exercise Program Other Education written HEP PT-OP-R Modalities Start: 08/25/17 08:08 Freq: Status: Active Protocol: Document 08/25/17 09:25 SAK (Rec: 08/25/17 09:46 SAK [id number]) Hot Pack/Cold Pack Treatment Hot Pack Location l/s Treatment Duration (minutes) 15 Patient Tolerance Fair Comments 90/90 position PT-OP-S Aquatic Treatment Start: 08/25/17 08:08 Freq: Status: Active Protocol: Document 09/29/17 11:45 TMS (Rec: 09/29/17 16:43 TMS [id number]) Aquatics Treatment Pool Entry/Exit Pool Entry/Exit Method Stairs Assistance Standby Assistance Water Walking Marching Water Level Chest Level Level of Assistance Verbal Cues Sideways Water Level Chest Level Level of Assistance Verbal Cues Backwards Water Level Chest Level Level of Assistance Verbal Cues Forwards Water Level Chest Level Level of Assistance Verbal Cues Lower Extremity Exercises 1 Details hip flex/ext, ab/ad, circles Body Position Standing Water Level Chest Level Reps/Duration 10 Upper Extremity Exercises 1 Details shoulder hor ab/ad, flex/ext Body Position Standing Water Level Chest Level Reps/Duration 10 ea javy and unil Spinal Exercises 2 Details postural isometric Body Position Standing Water Level Chest Level 1 Details wall squat DLS Body Position 90/90 at wall Water Level Neck Level Reps/Duration 5 min [place]idell Activities Slidell Activities Bicycle Equipment large noodle Duration 10 PT-OP-T Assessment and Plan Start: 08/25/17 08:08 Freq: Status: Active Protocol: Document 09/29/17 11:45 TMS (Rec: 09/29/17 16:43 TMS [id number]) Physical Therapy Assessment Assessment Summary Assessment Pt. needed cues for posture, complained of back pain occasionally. Cues to verbalize pain so can stay within tolerance. Physical Therapy Plan Frequency and Duration Frequency of Treatment 2x/Week Duration of Treatment 12 wks Plan of Care Start Date 08/25/17 Plan of Care End Date 11/22/17 Next Visit Focus/Plan Next Visit Plan Progress aquatic therapy as tolerated.
--- NOTE | 2018-01-14 10:30 | PT.OPDS ---
Current Diagnoses Chronic pain due to trauma (09/29/17) Weakness (09/29/17) Provider Visit Care Team Role Provider Type Madalyn Willingham DO Attending Provider Physician Family Provider Primary Care Provider Specialty: Family Practice Address: [address] [place] [address], [id number] Email: [email or web address] Visit Number Visit Number 07/03 Discharge Summary PT-OP-B Current Condition Start: 08/25/17 08:08 Freq: Status: Active Protocol: Document 08/25/17 08:16 SAK (Rec: 08/25/17 09:09 SAK [id number]) Current Condition History of Current Condition History of Current Condition Referred to PT due to function -limiting pain and weakness which started 15 yrs ago with accident;states he broke neck had cervical fusion. States 11 years ago diagnosed with cancer and started chemo, underwent lumbar fusion surgery. Onset of DM 15 yrs ago. FPC opiate use, recently went off medication. Has had falls related to neuropathy in feet, legs giving way. Uses cane, previously used walker. Daily chemo at this time. Able to take short walks. left leg stronger than right. Prior Treatments and Tests Imaging shows back messed up . c/s fusion. Future Testing and Treatments Planned Ongoing chemotherapy Treatment Goals Patient/Caregiver Goals Wants to gain strength, improve mobility of legs so they don't cramp up as much. Return to fishing, able to play with dog. Prior Functional Status Baseline Function- ADL's Independent Baseline Function- Mobility Independent Baseline Function- Recreation/Hobbies fishing, playing with dog Baseline Function- Other Caregiver 2x/wk for cooking, cleaning, shopping, etc. Uses barbells for UE's, a few ex in bed. Current Functional Impairments (Reported) Functional Limitations- Mobility/Gait uses cane for gait. 2 falls in past 6 months Functional Limitations- Work/School unable Functional Limitations- Recreation/ unable to go fishing, play Hobbies with dog. PT-OP-C Subjective Start: 08/25/17 08:08 Freq: Status: Active Protocol: Document 09/29/17 11:45 TMS (Rec: 09/29/17 16:43 TMS [id number]) OP-PT Subjective Patient Comments Patient Comments Pt. states he's been sick, had extra chemo appointments and then the flu. PT-OP-E Functional Tests Start: 08/25/17 08:08 Freq: Status: Active Protocol: Document 08/25/17 09:20 [facility] (Rec: 08/25/17 09:25 [facility] [id number]) Functional Tests Other 3 Name of Test tandem stand Comment unable 2 Name of Test stand eyes closed Comment unsteady 1 Name of Test sls Score unable PT-OP-F Manual Assessment Start: 08/25/17 08:08 Freq: Status: Active Protocol: Document 08/25/17 09:20 SAK (Rec: 08/25/17 09:25 [facility] [id number]) Manual Assessments Soft Tissue Assessment Soft Tissue Mobility Assessment decreased mobility of paraspinal musculature throughout PT-OP-G Mobility & Gait Start: 08/25/17 08:08 Freq: Status: Active Protocol: Document 08/25/17 09:20 SAK (Rec: 08/25/17 09:25 [facility] [id number]) OP Gait Assessment Gait Gait Assistance Required: Standby Assistance Distance (Feet) 75 Assistive Devices Assistive Device Straight Cane Orthotic/Prosthetic Devices or Brace: No Gait Deviations General Gait Pattern Decreased Stride Length Flexed Trunk Wide Based Gait Factors Limiting Gait Function Factors Limiting Gait Function Decreased Activity Tolerance Decreased Strength Pain Poor Balance PT-OP-J Posture/Palpation/Skin Start: 08/25/17 08:08 Freq: Status: Active Protocol: Document 08/25/17 09:20 SAK (Rec: 08/25/17 09:25 [facility] [id number]) Posture Evaluation Position Standing Head/C-Spine Posture Flexed T-Spine Posture Increased Kyphosis Thorax Posture (R) Prominent L-Spine Posture Decreased Lordosis Flexed PT-OP-K Range of Motion Start: 08/25/17 08:08 Freq: Status: Active Protocol: Document 08/25/17 09:25 SAK (Rec: 08/25/17 09:46 [facility] [id number]) Cervical Spine Range of Motion Cervical Spine Active Testing Position Supine ROM Limitations Pain Lumbar Spine Range of Motion Lumbar Spine Active ROM Limitations Pain Hip Goniometric Range of Motion Hip Measured in Degrees Active Hip ROM WFL No Hip ROM Limitations Hip ROM Limitations Soft Tissue Tightness Muscle Weakness Comments severe hamstring tightness with SLR left 40, right 45 Knee Goniometric Range of Motion Knee ROM Limitations Knee ROM Limitations Soft Tissue Tightness Muscle Weakness Ankle and Foot Goniometric Range of Motion Ankle and Foot ROM Limitations ROM Limitations Soft Tissue Tightness Muscle Weakness Comments mod heelcord tightness PT-OP-M Strength Start: 08/25/17 08:08 Freq: Status: Active Protocol: Document 08/25/17 09:25 [facility] (Rec: 08/25/17 09:46 [facility] [id number]) Trunk Strength Trunk Manual Muscle Testing Testing Position Prone Flexion 3 Fair Extension 3+ Fair+ Core Stabilization poor Comments testing painful Hip Strength Hip Manual Muscle Testing Right Flexion (L2) 3+ Fair+ Extension (S1) 3- Fair- Abduction 3- Fair- Adduction 3- Fair- External Rotation 3+ Fair+ Left Flexion (L2) 4- Good- Extension (S1) 3+ Fair+ Abduction 3- Fair- External Rotation 3- Fair- Internal Rotation 3+ Fair+ Knee Strength Knee Manual Muscle Testing Right Flexion (S2) 4- Good- Extension (L3) 4- Good- Left Flexion (S2) 4+ Good+ Extension (L3) 4+ Good+ Ankle/Foot Strength Ankle and Foot Manual Muscle Testing Right Dorsiflexion (L4) 4- Good- Plantarflexion (S1) 4- Good- Left Dorsiflexion (L4) 4+ Good+ Plantarflexion (S1) 4+ Good+ PT-OP-T Assessment and Plan Start: 08/25/17 08:08 Freq: Status: Active Protocol: Document 01/14/18 10:29 [facility] (Rec: 01/14/18 10:30 [facility] [id number]) Physical Therapy Plan Discharge Physical Therapy Discharge Reasons Patient Request Discharge Comments Patient not tolerating aquatic PT, last seen 09/29/17. Requested discharge from PT.
== END 2018-01-20 15:27 ==
LOC: PHYS 11:30
PROVIDERS: Family Provider Family Medicine; PCP Family Medicine; Visit Provider Family Medicine
DX: G89.21 Chronic pain due to trauma (principal); R53.1 Weakness
CPT/HCPCS: 97010; 97113; 97163; 97535

== ENCOUNTER → 2017-11-03 09:37 | Outpatient (CLI) | payer OTHER, SELFPAY ==
--- NOTE | 2017-11-03 15:26 | PC.NURSE ---
Received call from mom Lelo stating Fred had labs drawn today. She called to request the platelet count and is wondering if the other labs we lester today will be faxed to [place] providers. Noted labs drawn today on pt but were basically labs to measure the state of his disease. No CBC was ordered. Looking over his last CBC done on 10/20, note his platelet count was 30. Spoke with Dr Singh about this and he agrees pt needs CBC checked some time this week. Spoke with Lelo and maxi made for CBC tomorrow at 10 am.
[2017-11-08 08:53] LABS: Miscellaneous to Univ of WA SEE SEPARATE REPORTS
== END ==
PROVIDERS: Family Provider Family Medicine; PCP Family Medicine; Visit Provider Internal Medicine Hematology & Oncology
DX: C92.10 Chronic myeloid leukemia, BCR/ABL-positive, not having achieved remission (principal)
CPT/HCPCS: 36415; 81206

== ENCOUNTER → 2017-11-04 10:40 | Outpatient (CLI) | payer OTHER, SELFPAY ==
[2017-11-04 11:46] LABS: Eosinophils Percent Auto 2.1 % (2-4); Hematocrit 37.8 % (41-53); Hemoglobin 12.7 g/dL (13.5-17.5); Lymphocytes Percent Auto 23.8 % (25-40); Mean Corpuscular HGB Conc 33.4 % (30-36); Mean Corpuscular Hemoglobin 36.1 PG (26-34); Mean Corpuscular Volume 107.8 fL (80-100); Monocytes Percent Auto 8.9 % (3-14); Neutrophils Absolute Auto 2600 /uL (3000-5900); Neutrophils Percent Auto 64.2 % (50-75); Platelet Count 44 X10^3/uL (150-400); Red Blood Cell Count 3.51 X10^6/uL (4.5-5.9); Red Cell Distribution Width 14.4 % (11.6-14.8)
[2017-11-04 11:52] LABS: Add Manual Diff / Slide Review SLIDE REVIEW
[2017-11-04 12:29] LABS: Anisocytosis 1+; Macrocytosis 1+
== END ==
PROVIDERS: Internal Medicine Hematology & Oncology; Family Provider Family Medicine; PCP Family Medicine; Visit Provider Nurse Practitioner Gerontology
DX: C95.10 Chronic leukemia of unspecified cell type not having achieved remission (principal)
CPT/HCPCS: 36415; 85025

== ENCOUNTER 2017-11-10 13:55 | Emergency (ER) | payer OTHER, SELFPAY ==
[2017-11-10] VITALS (14 sets, daily range): BP systolic 114–145; BP diastolic 68–90; PULSE 99–141; RESP 16–37; TEMP 36.6–37.3; O2SAT 98–100
--- NOTE | 2017-11-10 14:36 | ED_ITS ---
HPI - GI Bleed General Chief complaint: GI Bleed Stated complaint: BACK HURTING,FAINTING,BLOOD IN VOMIT, DIZZY Time Seen by Provider: 11/10/17 14:34 Source: patient Mode of arrival: ambulatory Limitations: no limitations History of Present Illness HPI Narrative: Patient is somewhat difficult to obtain history from however he is a insulin-dependent diabetic with a history of CML currently receiving daily oral chemotherapy here for evaluation of approximately 1 month of abdominal pain and dark stools and bright red blood per rectum. Patient states that over the past several days the symptoms have been worsening and he has had more bright red blood per rectum now also was having dark emesis. No fevers. He states he is taking his medications. He states he has had a blood transfusion in the past. Related Data Home Medications Medication Instructions Recorded Confirmed docusate sodium [Colace] 100 mg PO QDAY PRN 10/20/17 11/10/17 [place] 1 ea MISCELLANEOUS DIRECTED 11/10/17 11/10/17 Syringes 1 syr MISCELLANEOUS DIRECTED 11/10/17 11/10/17 insulin glargine [Lantus Solostar 15 u SQ BEDTIME 11/10/17 11/10/17 U-100 Insulin] Previous Rx's Medication Instructions Recorded insulin lispro [Humalog KwikPen 1 - 12 unit SQ TIDCC #1 ea 03/25/17 Insulin] hydrocortisone acetate [Anusol-HC] 25 mg R BID #14 supp 07/15/17 ondansetron [Zofran ODT] 4 mg SUBLINGUAL Q6HP PRN #20 odt 07/26/17 True Metrix test strips #100 each 08/18/17 imatinib [Gleevec] 300 mg PO QDAY #60 tab 10/11/17 Allergies Allergy/AdvReac Type Severity Reaction Status Date / Time Penicillins [PENICILLINS] Allergy Severe Tongue Verified 08/31/17 22:43 swelling, hives adhesive Allergy Unknown PLASTIC Verified 08/31/17 22:43 TAPE latex [LATEX] Allergy Unknown Verified 08/31/17 22:43 Review of Systems Constitutional Reports fatigue, Denies fever(s), Denies headache(s), Reports lethargy, Reports malaise and Reports weakness ENT Ears, Nose, Mouth, and Throat: Denies vertigo, Denies dizziness and Denies headache(s) Cardiovascular Denies chest pain, Denies syncope, Denies palpitations and Denies dyspnea Respiratory Denies cough and Denies dyspnea Gastrointestinal Gastrointestinal: Reports abdominal pain, Reports melena, Reports bloating, Reports hematochezia, Reports coffee ground emesis, Denies diarrhea, Reports nausea and Reports vomiting Genitourinary Denies dysuria Musculoskeletal Denies myalgias and Denies arthralgias Integumentary/Breasts Denies lesions and Denies rash Neurologic Denies behavioral changes, Denies confusion, Denies vertigo, Denies dizziness, Denies syncope, Denies headache(s) and Reports weakness Psychiatric Denies anxiety, Denies behavioral changes, Denies confusion and Denies depression Endocrine Reports fatigue, Denies flushing and Denies palpitations Hematologic/Lymphatic Denies easy bleeding and Denies easy bruising [facility] Medical History CML (chronic myelocytic leukemia) (Acute) Insulin dependent diabetes mellitus (Acute) Surgical History Status post appendectomy Social History Smoking Status: Former smoker Comment: reviewed patient's past medical surgical social and family history Exam Initial Vital Signs Initial Vital Signs: Vital Signs Temperature 99.2 F 11/10/17 14:15 Pulse Rate 141 H 11/10/17 14:15 Respiratory Rate 26 H 11/10/17 14:15 Pulse Oximetry 100 11/10/17 14:15 Const General: cooperative, No healthy appearing, acute distress, No combative, diaphoretic, frail appearing and ill appearing Orientation: alert, awake and oriented x3 [place] Head: normal to inspection, normocephalic and atraumatic Eyes General: appearance normal, both eyes and all related structures Resp Effort & Inspection: normal respiratory effort Auscultation: clear to auscultation bilaterally Cardio Rate: tachycardic Rhythm: regular rhythm Pulses: radial pulses present GI Inspection: distended Palpation: soft, No firm, No guarding and tender ( diffuse) Skin Lesions: no lesions Rashes: no rashes Neuro General: alert, awake and oriented x3 Cognition: normal cognition Speech: speech normal Extrem General: normal to inspection and full ROM Psych Appearance: grossly normal and well kempt Course Orders Ordered: ED Orders 11/10/17 14:30 Complete Blood Count AUTO DIFF Stat Comprehensive Metabolic Panel Stat Packed Cells Stat Partial Thromboplastin Time Stat Prothrombin Time INR Stat Type and Screen Stat 11/10/17 14:45 EKG-12 Lead Stat 11/10/17 15:00 Lactate (Lactic Acid) Stat 11/10/17 16:00 Arterial Blood Gas Stat Pantoprazole Sodium 80 mg/ (Sodium Chloride) 100 mls @ 10 mls/hr IV NOW ONE Stop: 11/11/17 00:43 Last Admin: 11/10/17 15:35 Dose: 10 mls/hr Discontinued Medications Hydromorphone HCl (Dilaudid) 1 mg IV NOW ONE Stop: 11/10/17 14:45 Last Admin: 11/10/17 15:24 Dose: 1 mg Hydromorphone HCl (Dilaudid) 1 mg IV NOW ONE Stop: 11/10/17 16:26 Last Admin: 11/10/17 16:31 Dose: 1 mg Sodium Chloride (Normal Saline 0.9%) 1,000 mls @ 1,000 mls/hr IV BOLUS ONE Stop: 11/10/17 15:34 Last Infusion: 11/10/17 16:21 Dose: 0 mls/hr Admin: 11/10/17 14:41 Dose: 1,000 mls/hr Ondansetron HCl (Zofran) 4 mg IV NOW ONE Stop: 11/10/17 14:45 Last Admin: 11/10/17 15:24 Dose: 4 mg Pantoprazole Sodium (Protonix) 80 mg IV NOW ONE Stop: 11/10/17 15:22 Last Admin: 11/10/17 15:24 Dose: 80 mg Vital Signs - 8 hr 11/10/17 14:15 11/10/17 14:30 11/10/17 14:50 Temperature 99.2 F Pulse Rate 141 H 126 H 112 H Respiratory Rate 26 H 32 H 21 Blood Pressure Blood Pressure [Right Arm] 114/81 H 137/80 H Pulse Oximetry 100 99 100 11/10/17 15:37 11/10/17 16:00 11/10/17 16:30 Temperature Pulse Rate 113 H 112 H 105 H Respiratory Rate 19 18 22 Blood Pressure Blood Pressure [Right Arm] 132/75 H 125/83 H 145/90 H Pulse Oximetry 99 98 99 11/10/17 16:45 11/10/17 16:50 11/10/17 17:05 Temperature 98.5 F 98 F 98.2 F Pulse Rate 99 H 99 H 109 H Respiratory Rate 16 18 22 Blood Pressure 130/86 H 130/88 H Blood Pressure [Right Arm] 130/86 H Pulse Oximetry 100 11/10/17 17:34 11/10/17 17:35 Temperature Pulse Rate 118 H 108 H Respiratory Rate 37 H 18 Blood Pressure 131/90 H Blood Pressure [Right Arm] 131/90 H Pulse Oximetry 98 99 MDM - GI Bleed Lab Data Attestation: I reviewed the patient's lab results. Result diagrams: 11/10/17 14:30 11/10/17 14:30 Lab Results 11/10/17 11/10/17 11/10/17 Range/Units 14:30 14:30 14:30 WBC 6.7 (4.5-11.0) X10^3/uL RBC 1.86 L (4.5-5.9) X10^6/uL Hgb 6.9 L* (13.5-17.5) g/dL Hct 20.2 L* (41-53) % MCV 108.6 H (80-100) fL MCH 37.0 H (26-34) PG MCHC 34.0 (30-36) % RDW 13.3 (11.6-14.8) % Plt Count 45 L (150-400) X10^3/uL Neut % (Auto) 78.2 H (50-75) % Lymph % (Auto) 12.9 L (25-40) % [place] % (Auto) 8.3 (3-14) % Eos % (Auto) 0.0 L (2-4) % Baso % (Auto) 0.6 (0-2) % Neut # (Auto) 5200 (4707-6059) /uL PT 13.0 H (10.1-12.7) SECONDS INR 1.2 (0.9-1.3) APTT 28 (26.4-36.2) SECONDS ABG pH (7.35-7.45) ABG pCO2 (35-45) mmHg ABG pO2 (80-105) mmHg ABG HCO3 (23-27) mmol/L ABG Total CO2 (23-27) mmol/L ABG O2 Saturation (95-100) % ABG Base Excess (-2-3) mmol/L FiO2 Sodium 137 (137-145) mmol/L Potassium 4.9 (3.4-5.1) mmol/L Chloride 100 (98-107) mmol/L Carbon Dioxide 17 L (22-32) mmol/L BUN 43 H (9-20) mg/dL Creatinine 1.00 (0.66-1.25) mg/dL Estimated GFR > 60.0 (>60) mL/min BUN/Creatinine Ratio 43.0 H (6-22) Glucose 452 H (70-100) mg/dL Lactate (0.7-2.1) mmol/L Calcium 8.7 (8.4-10.2) mg/dL Total Bilirubin 1.4 H (0.2-1.3) mg/dL AST 64 H (17-59) IU/L ALT 51 (21-72) IU/L Alkaline Phosphatase 60 (38-126) U/L Total Protein 5.7 L (6.3-8.2) g/dL Albumin 3.7 (3.5-5.0) g/dL Globulin 2.0 (1.7-4.1) g/dL Albumin/Globulin Ratio 1.9 (1.0-2.8) Blood Type Antibody Screen Crossmatch 11/10/17 11/10/17 11/10/17 Range/Units 14:30 15:00 16:00 WBC (4.5-11.0) X10^3/uL RBC (4.5-5.9) X10^6/uL Hgb (13.5-17.5) g/dL Hct (41-53) % MCV (80-100) fL MCH (26-34) PG MCHC (30-36) % RDW (11.6-14.8) % Plt Count (150-400) X10^3/uL Neut % (Auto) (50-75) % Lymph % (Auto) (25-40) % [place] % (Auto) (3-14) % Eos % (Auto) (2-4) % Baso % (Auto) (0-2) % Neut # (Auto) (2089-4919) /uL PT (10.1-12.7) SECONDS INR (0.9-1.3) APTT (26.4-36.2) SECONDS ABG pH 7.34 L (7.35-7.45) ABG pCO2 30.4 L (35-45) mmHg ABG pO2 77 L (80-105) mmHg ABG HCO3 16 L (23-27) mmol/L ABG Total CO2 17 L (23-27) mmol/L ABG O2 Saturation 95 (95-100) % ABG Base Excess -10.0 L (-2-3) mmol/L FiO2 21 Sodium (137-145) mmol/L Potassium (3.4-5.1) mmol/L Chloride (98-107) mmol/L Carbon Dioxide (22-32) mmol/L BUN (9-20) mg/dL Creatinine (0.66-1.25) mg/dL Estimated GFR (>60) mL/min BUN/Creatinine Ratio (6-22) Glucose (70-100) mg/dL Lactate 5.2 H (0.7-2.1) mmol/L Calcium (8.4-10.2) mg/dL Total Bilirubin (0.2-1.3) mg/dL AST (17-59) IU/L ALT (21-72) IU/L Alkaline Phosphatase (38-126) U/L Total Protein (6.3-8.2) g/dL Albumin (3.5-5.0) g/dL Globulin (1.7-4.1) g/dL Albumin/Globulin Ratio (1.0-2.8) Blood Type A Positive Antibody Screen Negative Crossmatch See Detail ECG Data Attestation: I personally reviewed and interpreted this ECG as follows: Prior ECG tracings: not available for review Interpretation: sinus tachycardia ventricular rate of 124 normal axis Normal QRS Normal QTC Nonspecific ST T wave changes MDM Narrative Medical decision making narrative: patient arrived ill-appearing. H&H half today than what it was from 11/02. patient is tachycardic. Patient grossly positive blood per rectum and also vomiting. Patient was given small amount of fluids here in the ER. transfusion started here in the emergency department. Patient had an anion gap of 20. PH on the ABG was 7.337 with a pCO2 of 30 base excess of -10. patient also hyper glycemic. I suspect this is mild DKA secondary to his GI bleed. Discussed the case with Internal Medicine here at [facility] who accepted patient if surgery would scope him. I discussed the case with General surgery here who stated that they were uncertain if he was having a brisk bleed that they would be able to handle the situation. I discussed with GI at [facility] who stated they would see the patient in consultation. I discussed the case with Dr. Pacheco with Internal Medicine at [facility] who accepts the patient and transfer. I informed the patient of the transfer. He expressed understanding and agreement with plan. Discharge Plan Departure Patient Disposition: [facility] Clinical Impression: Acute GI bleeding, CML (chronic myelocytic leukemia), Abdominal pain, Hyperglycemia, Anemia Interventions: ED Discharge Assessment Last Done: 11/10/17 17:35 Prescriptions: No Action insulin lispro [Humalog KwikPen Insulin] 100 UNIT/1 ML insulin pen 1 - 12 unit SQ TIDCC Qty: 1 RF: 3 hydrocortisone acetate [Anusol-HC] 25 MG suppository 25 mg R BID Qty: 14 RF: 0 ondansetron [Zofran ODT] 4 MG tablet,disintegrating 4 mg Sublingual Q6HP PRNQty: 20 RF: 0 True Metrix test strips Qty: 100 RF: 1 imatinib [Gleevec] 100 MG tablet 300 mg PO QDAY Qty: 60 RF: 0 docusate sodium [Colace] 100 MG capsule 100 mg PO QDAY PRN (Reason: Constipation) RF: 0 insulin glargine [Lantus Solostar U-100 Insulin] 100 UNIT/1 ML insulin pen 15 u SQ BEDTIME RF: 0 [place] 1 ea miscellaneous DIRECTED RF: 0 Syringes 1 syr miscellaneous DIRECTED RF: 0
[2017-11-10] MEDS: SODIUM CHLORIDE 0.9% 1,000 ML 1000 ML IV (14:41)
[2017-11-10 14:45] LABS: Add Manual Diff / Slide Review NO; Basophils Percent Auto 0.6 % (0-2); Lymphocytes Percent Auto 12.9 % (25-40); Mean Corpuscular Volume 108.6 fL (80-100); Monocytes Percent Auto 8.3 % (3-14); Neutrophils Absolute Auto 5200 /uL (3000-5900); Neutrophils Percent Auto 78.2 % (50-75); Platelet Count 45 X10^3/uL (150-400); Red Blood Cell Count 1.86 X10^6/uL (4.5-5.9); Red Cell Distribution Width 13.3 % (11.6-14.8); White Blood Cell Count 6.7 X10^3/uL (4.5-11.0)
[2017-11-10 14:53] LABS: Hematocrit 20.2 % (41-53); Hemoglobin 6.9 g/dL (13.5-17.5)
[2017-11-10 14:57] LABS: Alanine Aminotransferase 51 IU/L (21-72); Albumin 3.7 g/dL (3.5-5.0); Albumin Globulin Ratio 1.9 (1.0-2.8); Alkaline Phosphatase 60 U/L (38-126); Aspartate Aminotransferase 64 IU/L (17-59); Bilirubin Total 1.4 mg/dL (0.2-1.3); Blood Urea Nitrogen 43 mg/dL (9-20); Calcium 8.7 mg/dL (8.4-10.2); Carbon Dioxide 17 mmol/L (22-32); Chloride 100 mmol/L (98-107); Estimated Glomerular Filt Rate > 60.0 mL/min (>60); Glucose 452 mg/dL (70-100); HEMOLYSIS < 15 (0-50); Potassium 4.9 mmol/L (3.4-5.1); Sodium 137 mmol/L (137-145); Total Protein 5.7 g/dL (6.3-8.2)
[2017-11-10 15:07] LABS: INR 1.2 (0.9-1.3); PTT Partial Thromboplastin Tim 28 SECONDS (26.4-36.2)
[2017-11-10] MEDS: HYDROMORPHONE 0.5 MG INJ 1 MG IV ×2 (15:24→16:31)
[2017-11-10] MEDS: ONDANSETRON 4 MG/2 ML INJ IV ×2 (15:24→18:14)
[2017-11-10] MEDS: PANTOPRAZOLE 40 MG VIAL 80 MG IV (15:24)
[2017-11-10] MEDS: PANTOPRAZOLE 80 MG in SODIUM CHLORIDE 0.9% 100 ML 10 ML IV (15:35)
--- NOTE | 2017-11-10 15:37 | PC.NURSE ---
Small amount, 50ml of vomit which appears to be blood. LANM at bedside and aware.
[2017-11-10 16:00] LABS: Lactate (Lactic Acid) 5.2 mmol/L (0.7-2.1)
[2017-11-10 16:10] LABS: HCO3 ABG 16 mmol/L (23-27); Oxygen Saturation ABG 95 % (95-100); PCO2 ABG 30.4 mmHg (35-45); PO2 ABG 77 mmHg (80-105); TCO2 ABG 17 mmol/L (23-27); pH ABG 7.34 (7.35-7.45)
[2017-11-10 16:11] LABS: Fractionated Inspired Oxygen 21
--- NOTE | 2017-11-10 16:58 | PC.NURSE ---
Patient reports syncopal episodes happening off and on for the last month, more in the last few days. Unwitnessed falls.
--- NOTE | 2017-11-10 17:01 | PC.NURSE ---
Dr. Daly called to bedside at 1430 when patient brought to my room. Patient is currently undergoing oral chemotherapy treatment for CML. He reports abdominal pain and blood in vomit and stool off and on for the last month. It has worsened over the last 3 days. He is pale, diaphoretic, tachycardic, and actively vomiting blood.
--- NOTE | 2017-11-10 17:04 | PC.NURSE ---
Patient with large area of bruising to left rib cage. States has had multiple falls from syncopal episodes in the last month.
--- NOTE | 2017-11-10 17:18 | PC.NURSE ---
Report called to Edith SOLIS at [facility] at this time. [facility] ETA 1740 for transfer.
--- NOTE | 2017-11-10 17:38 | PC.NURSE ---
Addendum entered by Gogo Martinez R.N. 11/10/17 17:39: Protonix drip also continued upon transfer to [facility] with [facility]. Original Note: Blood continued upon transfer to [facility] with [facility].
[2017-11-10] MEDS: HYDROMORPHONE 1 MG INJ IV (18:14)
--- NOTE | 2017-11-10 18:25 | PC.NURSE ---
1705- Rate of PRBC's was increased from 100ml/hr to 325ml/hr. NO s/s of transfusion reaction.
--- NOTE | 2017-11-10 18:26 | PC.NURSE ---
1819- First unit PRBC's completed and second unit started. Blood Check with Maci Slade RN and [facility] at bedside. Blood started at 100 ml/hr and then I transferred care of patient and blood to [facility]. Protonix drip also released to [facility] RN. Both Blood and protonix were moved to her pump and continued upon transport.
[2017-11-10 19:36] LABS: Reflexed Lactate in 2 Hours Y
== END 2017-11-10 18:27 | disposition short-term general hospital (02) ==
PROVIDERS: Emergency Provider Emergency Medicine; Family Provider Family Medicine; PCP Family Medicine
DX: K92.2 Gastrointestinal hemorrhage, unspecified (principal); C92.10 Chronic myeloid leukemia, BCR/ABL-positive, not having achieved remission; E11.65 Type 2 diabetes mellitus with hyperglycemia; D64.9 Anemia, unspecified; R10.9 Unspecified abdominal pain; Z79.4 Long term (current) use of insulin
CPT/HCPCS: 36430; 36591; 36600; 80053; 82805; 83605; 85025; 85610; 85730; 86850; 86900; 86901; 93005; 93010; 96361; 96365; 96366; 96375; 96376; 99285; P9016; C9113; J1170; J2405

== ENCOUNTER 2017-12-16 16:28 | Emergency (ER) | payer OTHER, MEDICAID, SELFPAY ==
[2017-12-16 16:32] VITALS: BP 166/100; PULSE 102; RESP 24; TEMP 37; O2SAT 100
--- NOTE | 2017-12-16 16:42 | PC.NURSE ---
States legs are painful. States abscess to l fa below the AC. States out of lorazapam today.
[2017-12-16 17:44] LABS: Add Manual Diff / Slide Review NO; Basophils Percent Auto 0.4 % (0-2); Eosinophils Percent Auto 1.2 % (2-4); Hematocrit 33.7 % (41-53); Hemoglobin 11.2 g/dL (13.5-17.5); Lymphocytes Percent Auto 11.6 % (25-40); Mean Corpuscular HGB Conc 33.2 % (30-36); Mean Corpuscular Volume 102.3 fL (80-100); Monocytes Percent Auto 7.4 % (3-14); Neutrophils Absolute Auto 3600 /uL (3000-5900); Neutrophils Percent Auto 79.4 % (50-75); Red Blood Cell Count 3.29 X10^6/uL (4.5-5.9); Red Cell Distribution Width 16.4 % (11.6-14.8); White Blood Cell Count 4.5 X10^3/uL (4.5-11.0)
[2017-12-16] MEDS: MORPHINE 5 MG/ML INJ 2 MG IV (17:46)
[2017-12-16 17:50] LABS: Platelet Count 33 X10^3/uL (150-400)
[2017-12-16 17:52] LABS: Lactate (Lactic Acid) 0.8 mmol/L (0.7-2.1)
[2017-12-16 17:54] LABS: Alanine Aminotransferase 45 IU/L (21-72); Albumin 4.3 g/dL (3.5-5.0); Albumin Globulin Ratio 1.4 (1.0-2.8); Alkaline Phosphatase 117 U/L (38-126); Aspartate Aminotransferase 72 IU/L (17-59); BUN Creatinine Ratio 18.8 (6-22); Bilirubin Total 1.1 mg/dL (0.2-1.3); Blood Urea Nitrogen 15 mg/dL (9-20); Calcium 8.9 mg/dL (8.4-10.2); Carbon Dioxide 22 mmol/L (22-32); Chloride 102 mmol/L (98-107); Estimated Glomerular Filt Rate > 60.0 mL/min (>60); Globulin 3.1 g/dL (1.7-4.1); Glucose 273 mg/dL (70-100); HEMOLYSIS < 15 (0-50); Potassium 4.3 mmol/L (3.4-5.1); Sodium 136 mmol/L (137-145); Total Protein 7.4 g/dL (6.3-8.2)
[2017-12-16 17:56] VITALS: BP 120/91; PULSE 93; O2SAT 99
--- NOTE | 2017-12-16 18:02 | PC.NURSE ---
noted small hematoma at site of iv. Flushed w/ 20 cc w/o infiltration. wrapped w/ coban for pressure on site as platelet count is low.
[2017-12-16 18:21] LABS: Anisocytosis 1+
--- NOTE | 2017-12-16 18:25 | PC.NURSE ---
did I&D of abscess of l arm. Dreesing applied with uzma and sorin bazzi. Swelling to iv site duplicated with 2nd IV start per Rosy SOLIS. Both lines are in place at this time. Reports no change in pain with meds
--- NOTE | 2017-12-16 18:59 | ED_ITS ---
HPI - Weakness General Chief complaint: Weakness Stated complaint: states bad infection in his legs Time Seen by Provider: 12/16/17 16:41 Source: patient Mode of arrival: ambulatory Limitations: no limitations History of Present Illness HPI Narrative: Patient is a 42-year-old male with history of insulin-dependent diabetes CML and a recent GI bleed for which she was transferred over to [facility] where he received multiple blood transfusions. Today he presents with overall weakness. He has an abscess in his left AC which he says he started to notice last evening. There is some erythema going up his arm he denies any fever or chills. He just overall feels weak and tired. He denies any IV drug use. He says that he did have an abscess of that arm on a long time ago and seems to have reoccurred. Related Data Home Medications Medication Instructions Recorded Confirmed docusate sodium [Colace] 100 mg PO QDAY PRN 10/20/17 12/16/17 [place] 1 ea MISCELLANEOUS DIRECTED 11/10/17 12/16/17 Syringes 1 syr MISCELLANEOUS DIRECTED 11/10/17 12/16/17 insulin glargine [Lantus Solostar 15 u SQ BEDTIME 11/10/17 12/16/17 U-100 Insulin] ondansetron [Zofran ODT] 4 mg SUBLINGUAL Q6HP PRN 11/17/17 12/16/17 imatinib [Gleevec] 300 mg PO QPM 12/16/17 12/16/17 lorazepam 1 tab PO TID PRN 12/16/17 12/16/17 pantoprazole 40 mg PO DAILY 12/16/17 12/16/17 sucralfate [Carafate] 10 ml PO QID 12/16/17 12/16/17 Previous Rx's Medication Instructions Recorded insulin lispro [Humalog KwikPen 1 - 12 unit SQ TIDCC #1 ea 03/25/17 Insulin] hydrocortisone acetate [Anusol-HC] 25 mg R BID #14 supp 07/15/17 True Metrix test strips #100 each 08/18/17 sulfamethoxazole-trimethoprim 1 tab PO BID 7 Days #14 tab 12/16/17 [Bactrim DS] Allergies Allergy/AdvReac Type Severity Reaction Status Date / Time Penicillins [PENICILLINS] Allergy Severe Tongue Verified 12/16/17 16:35 swelling, hives adhesive Allergy Unknown PLASTIC Verified 12/16/17 16:35 TAPE latex [LATEX] Allergy Unknown Verified 12/16/17 16:35 Review of Systems Review of Systems All systems reviewed & are unremarkable except as noted in HPI and below Constitutional Denies chills, Reports fatigue, Denies fever(s) and Denies frequent falls Eyes Denies change in vision, Denies eye discharge, Denies irritation and Denies loss of vision Cardiovascular Denies chest pain, Denies irregular heart rhythm, Denies lightheadedness, Denies palpitations, Denies dyspnea, Denies dyspnea on exertion and Denies orthopnea Respiratory Denies cough, Denies dyspnea, Denies dyspnea on exertion and Denies wheezing Gastrointestinal Gastrointestinal: Denies abdominal pain, Denies change in bowel habits, Denies diarrhea, Denies nausea and Denies vomiting Musculoskeletal Denies back pain, Denies muscle weakness, Denies numbness and Denies tingling Integumentary/Breasts Reports system reviewed and no additional complaints, except as docu Neurologic Denies frequent falls, Denies loss of vision, Denies numbness and Denies tingling Endocrine Reports fatigue and Denies palpitations Allergic/Immunologic Denies wheezing [facility] Social History Smoking Status: Former smoker Exam Initial Vital Signs Initial Vital Signs: Vital Signs Temperature 98.6 F 12/16/17 16:32 Pulse Rate 102 H 12/16/17 16:32 Respiratory Rate 24 12/16/17 16:32 Blood Pressure 166/100 H 12/16/17 16:32 Pulse Oximetry 100 12/16/17 16:32 GENERAL: Chronically ill young male no acute distress HEENT: Head atraumatic,EOMI, pupils reactive, face symmetric, CARDIOVASCULAR: Regular rate and rhythm without murmurs, rubs or gallops. RESPIRATORY: Breath sounds equal bilaterally, no wheezes rales or rhonchi. ABDOMEN: Soft, nontender. Normoactive bowel sounds all 4 quadrants. No guarding or rebound. EXTREMITIES: Normal range of motion, no clubbing or edema. Neurovascularly intact NEUROLOGICAL: Alert and oriented x4.Normal gait and speech. SKIN: 3 cm x 2 cm of fluctuation in the left AC with erythema up to mid biceps. No induration. It is very light streaking. Procedures Abscess I/D Site: upper extremity Side (if applicable): left Local Anesthetic: lidocaine 1% and with epi Amount of anesthesia used (mL): 2 Amount of fluid expressed (mL): 5 Irrigation: No Packing used?: none Course Orders Ordered: ED Orders 12/16/17 17:25 Complete Blood Count AUTO DIFF Stat Comprehensive Metabolic Panel Stat Lactate (Lactic Acid) Stat Procalcitonin Stat 12/16/17 17:45 Blood Culture Stat 12/16/17 18:27 Wound Culture and Gram Stain Stat Discontinued Medications Morphine Sulfate (Morphine Sulfate) 2 mg IV NOW ONE Stop: 12/16/17 17:45 Last Admin: 12/16/17 17:46 Dose: 2 mg Vital Signs - 8 hr 12/16/17 16:32 12/16/17 17:56 Temperature 98.6 F Pulse Rate 102 H 93 H Respiratory Rate 24 Blood Pressure 166/100 H Blood Pressure [Right Arm] 120/91 H Pulse Oximetry 100 99 MDM - Weakness Lab Data Attestation: I reviewed the patient's lab results. Result diagrams: 12/16/17 17:25 12/16/17 17:25 Lab Results 12/16/17 12/16/17 12/16/17 Range/Units 17:25 17:25 17:25 WBC 4.5 (4.5-11.0) X10^3/uL RBC 3.29 L (4.5-5.9) X10^6/uL Hgb 11.2 L (13.5-17.5) g/dL Hct 33.7 L (41-53) % MCV 102.3 H (80-100) fL MCH 34.0 (26-34) PG MCHC 33.2 (30-36) % RDW 16.4 H (11.6-14.8) % Plt Count 33 L* (150-400) X10^3/uL Neut % (Auto) 79.4 H (50-75) % Lymph % (Auto) 11.6 L (25-40) % [place] % (Auto) 7.4 (3-14) % Eos % (Auto) 1.2 L (2-4) % Baso % (Auto) 0.4 (0-2) % Neut # (Auto) 3600 (0229-0885) /uL RBC Morphology Not Reportable Anisocytosis 1+ H Sodium 136 L (137-145) mmol/L Potassium 4.3 (3.4-5.1) mmol/L Chloride 102 (98-107) mmol/L Carbon Dioxide 22 (22-32) mmol/L BUN 15 (9-20) mg/dL Creatinine 0.80 (0.66-1.25) mg/dL Estimated GFR > 60.0 (>60) mL/min BUN/Creatinine Ratio 18.8 (6-22) Glucose 273 H (70-100) mg/dL Lactate (0.7-2.1) mmol/L Calcium 8.9 (8.4-10.2) mg/dL Total Bilirubin 1.1 (0.2-1.3) mg/dL AST 72 H (17-59) IU/L ALT 45 (21-72) IU/L Alkaline Phosphatase 117 (38-126) U/L Total Protein 7.4 (6.3-8.2) g/dL Albumin 4.3 (3.5-5.0) g/dL Globulin 3.1 (1.7-4.1) g/dL Albumin/Globulin Ratio 1.4 (1.0-2.8) Procalcitonin 0.60 H (<0.5) ng/mL 12/16/17 Range/Units 17:25 WBC (4.5-11.0) X10^3/uL RBC (4.5-5.9) X10^6/uL Hgb (13.5-17.5) g/dL Hct (41-53) % MCV (80-100) fL MCH (26-34) PG MCHC (30-36) % RDW (11.6-14.8) % Plt Count (150-400) X10^3/uL Neut % (Auto) (50-75) % Lymph % (Auto) (25-40) % [place] % (Auto) (3-14) % Eos % (Auto) (2-4) % Baso % (Auto) (0-2) % Neut # (Auto) (3878-8486) /uL RBC Morphology Anisocytosis Sodium (137-145) mmol/L Potassium (3.4-5.1) mmol/L Chloride (98-107) mmol/L Carbon Dioxide (22-32) mmol/L BUN (9-20) mg/dL Creatinine (0.66-1.25) mg/dL Estimated GFR (>60) mL/min BUN/Creatinine Ratio (6-22) Glucose (70-100) mg/dL Lactate 0.8 (0.7-2.1) mmol/L Calcium (8.4-10.2) mg/dL Total Bilirubin (0.2-1.3) mg/dL AST (17-59) IU/L ALT (21-72) IU/L Alkaline Phosphatase (38-126) U/L Total Protein (6.3-8.2) g/dL Albumin (3.5-5.0) g/dL Globulin (1.7-4.1) g/dL Albumin/Globulin Ratio (1.0-2.8) Procalcitonin (<0.5) ng/mL MDM Narrative Medical decision making narrative: Patient is not acidotic no sign of DKA. No leukocytosis he does have an elevated slightly procalcitonin but lactic acid is within normal limits. Does not appear septic. I have faxed over an antibiotic to [facility] I have instructed him to started immediately and when to return to the ED. Platelets seen at about baseline for him. Discharge Plan Departure Patient Disposition: Home Clinical Impression: Abscess of arm, left Discharge Date/Time: 12/16/17 18:35 Interventions: ED Discharge Assessment Last Done: 12/16/17 18:34 Instructions: DI for Incision and Drainage of a Skin Abscess Activity Restrictions/Additional Instructions: *You have been diagnosed with left arm abscess *What to do: Keep clean and dry with soap and water monitor read *Continue to take medications as directed Bactrim 1 tab twice a day for 7 days start tonight-faxed to [facility] in [place] *Follow up with your primary care provider in 2-3 days *Return to ER if you should have fever, weakness, increasing redness, elevated glucose or any new, worsening or concerning symptoms Prescriptions: New sulfamethoxazole-trimethoprim [Bactrim DS] 800-160 mg tablet 1 tab PO BID 7 Days Qty: 14 RF: 0 No Action insulin lispro [Humalog KwikPen Insulin] 100 UNIT/1 ML insulin pen 1 - 12 unit SQ TIDCC Qty: 1 RF: 3 hydrocortisone acetate [Anusol-HC] 25 MG suppository 25 mg R BID Qty: 14 RF: 0 True Metrix test strips Qty: 100 RF: 1 docusate sodium [Colace] 100 MG capsule 100 mg PO QDAY PRN (Reason: Constipation) RF: 0 ondansetron [Zofran ODT] 4 MG tablet,disintegrating 4 mg Sublingual Q6HP PRN (Reason: Nausea) RF: 0 insulin glargine [Lantus Solostar U-100 Insulin] 100 UNIT/1 ML insulin pen 15 u SQ BEDTIME RF: 0 [place] 1 ea miscellaneous DIRECTED RF: 0 Syringes 1 syr miscellaneous DIRECTED RF: 0 sucralfate [Carafate] 100 mg/mL suspension 10 ml PO QID RF: 0 pantoprazole 40 mg tablet,delayed release (DR/EC) 40 mg PO DAILY RF: 0 lorazepam 0.5 mg tablet 1 tab PO TID PRN (Reason: Anxiety) RF: 0 imatinib [Gleevec] 100 MG tablet 300 mg PO QPM RF: 0 Referrals: Madalyn Willingham DO [Primary Care Provider] -
== END 2017-12-16 18:35 | disposition home or self-care (01) ==
PROVIDERS: Emergency Provider Emergency Medicine; Family Provider Family Medicine; PCP Family Medicine
DX: L02.414 Cutaneous abscess of left upper limb (principal); E11.9 Type 2 diabetes mellitus without complications; Z79.4 Long term (current) use of insulin
CPT/HCPCS: 10060; 36591; 80053; 83605; 84145; 85025; 87040; 87070; 87075; 87077; 87147; 87186; 87205; 96374; 99282; 99284; J2270

== ENCOUNTER 2017-12-21 13:20 | Emergency (ER) | payer OTHER, MEDICAID, SELFPAY ==
[2017-12-21 13:23] VITALS: BP 140/87; PULSE 68; RESP 14; TEMP 36.6; O2SAT 100
--- NOTE | 2017-12-21 13:26 | ED.EAR ---
HPI - Ear Problem <MILA Delgado - Last Filed: 12/21/17 21:20> General Chief complaint: Ear Stated complaint: EAR ACHE Time Seen by Provider: 12/21/17 13:30 Source: patient Mode of arrival: ambulatory Limitations: no limitations History of Present Illness HPI Narrative: 42-year-old male history of insulin dependent diabetes and CML that is a former smoker here for complaint of discomfort to his left ear for the past 4 months. He has not been evaluated for this at all he denies any fevers or chills. He does report having some brownish discharge from his ear. He denies any trauma to the area. He denies any stressors or relievers of his pain. He denies any other concerns or complaints at this time. Related Data Home Medications Medication Instructions Recorded Confirmed docusate sodium [Colace] 100 mg PO QDAY PRN 10/20/17 12/16/17 [place] 1 ea MISCELLANEOUS DIRECTED 11/10/17 12/16/17 Syringes 1 syr MISCELLANEOUS DIRECTED 11/10/17 12/16/17 insulin glargine [Lantus Solostar 15 u SQ BEDTIME 11/10/17 12/16/17 U-100 Insulin] ondansetron [Zofran ODT] 4 mg SUBLINGUAL Q6HP PRN 11/17/17 12/16/17 imatinib [Gleevec] 300 mg PO QPM 12/16/17 12/16/17 lorazepam 1 tab PO TID PRN 12/16/17 12/16/17 pantoprazole 40 mg PO DAILY 12/16/17 12/16/17 sucralfate [Carafate] 10 ml PO QID 12/16/17 12/16/17 Previous Rx's Medication Instructions Recorded insulin lispro [Humalog KwikPen 1 - 12 unit SQ TIDCC #1 ea 03/25/17 Insulin] hydrocortisone acetate [Anusol-HC] 25 mg R BID #14 supp 07/15/17 True Metrix test strips #100 each 08/18/17 ciprofloxacin-dexamethasone 4 drop EAR-LEFT BID 7 Days #7.5 ml 12/21/17 [Ciprodex] Allergies Allergy/AdvReac Type Severity Reaction Status Date / Time Penicillins [PENICILLINS] Allergy Severe Tongue Verified 12/21/17 13:25 swelling, hives adhesive Allergy Unknown PLASTIC Verified 12/21/17 13:25 TAPE latex [LATEX] Allergy Unknown Verified 12/21/17 13:25 Review of Systems <MILA Delgado - Last Filed: 12/21/17 21:20> Constitutional Denies chills, Denies fever(s), Denies lethargy and Denies weakness Eyes Denies change in vision, Denies eye discharge, Denies irritation and Denies loss of vision ENT Ears, Nose, Mouth, and Throat: Reports otalgia Cardiovascular Denies chest pain, Denies irregular heart rhythm, Denies lightheadedness, Denies palpitations, Denies dyspnea, Denies dyspnea on exertion and Denies orthopnea Respiratory Denies cough, Denies dyspnea, Denies dyspnea on exertion and Denies wheezing Gastrointestinal Gastrointestinal: Denies abdominal pain, Denies change in bowel habits, Denies diarrhea, Denies nausea and Denies vomiting Musculoskeletal Denies back pain, Denies muscle weakness, Denies numbness and Denies tingling Integumentary/Breasts Denies pruritus, Denies erythema, Denies rash and Denies wounds Neurologic Denies confusion, Denies loss of vision, Denies numbness, Denies tingling and Denies weakness Psychiatric Denies anxiety, Denies confusion, Denies depression, Denies homicidal ideation and Denies suicidal ideation Endocrine Denies palpitations Hematologic/Lymphatic Denies easy bruising Allergic/Immunologic Denies wheezing Exam <MILA Delgado - Last Filed: 12/21/17 21:20> Initial Vital Signs Initial Vital Signs: Vital Signs Temperature 97.9 F 12/21/17 13:23 Pulse Rate 68 12/21/17 13:23 Respiratory Rate 14 12/21/17 13:23 Blood Pressure 140/87 12/21/17 13:23 Pulse Oximetry 100 12/21/17 13:23 Const General: cooperative and well developed Nutritional Appearance: well nourished Orientation: alert, awake, oriented x3 and not confused HENMT Ears: hearing grossly normal bilaterally, TM's normal bilaterally and EAC abnormal cerumen impaction on the left and erythema on the left Mouth: oral mucosae normal, oropharynx normal and moist mucous membranes Eyes Conjunctivae: conjunctivae normal Sclera: sclerae normal Pupils: PERRL EOM: EOM intact bilaterally Resp Effort & Inspection: normal respiratory effort, able to speak in complete sentences, no respiratory distress and no use of accessory muscles Auscultation: clear to auscultation bilaterally, no rales, no rhonchi and no wheezes Cardio Rate: regular rate Rhythm: regular rhythm Heart Sounds: no click, no gallops, no murmurs and no rubs Pulses: normal peripheral pulses Skin General: no rashes or lesions noted, No jaundice and No petechiae Neuro General: alert, oriented x3, gait normal and no focal motor deficits Speech: speech normal <Bre Cespedes DO - Last Filed: 12/23/17 08:46> Initial Vital Signs Initial Vital Signs: Vital Signs Temperature 97.9 F 12/21/17 13:23 Pulse Rate 68 12/21/17 13:23 Respiratory Rate 14 12/21/17 13:23 Blood Pressure 140/87 12/21/17 13:23 Pulse Oximetry 100 12/21/17 13:23 Course <MILA Delgado - Last Filed: 12/21/17 21:20> Vital Signs - 8 hr 12/21/17 13:23 Temperature 97.9 F Pulse Rate 68 Respiratory Rate 14 Blood Pressure 140/87 Pulse Oximetry 100 <Bre Cespedes DO - Last Filed: 12/23/17 08:46> Vital Signs - 8 hr 12/21/17 13:23 Temperature 97.9 F Pulse Rate 68 Respiratory Rate 14 Blood Pressure 140/87 Pulse Oximetry 100 Medical Decision Making <MILA Delgado - Last Filed: 12/21/17 21:20> [facility] Narrative Medical decision making narrative: Left ear presents with cerumen impaction to the left ear. Cerumen impaction removed with irrigation. Patient tolerated well no complication. Patient does have erythema to the external ear canal. Will treat for otitis externa with Ciprodex. Ibuprofen as needed for any discomfort. Follow up with primary care provider. Return emergency room for any worsening symptoms. Discharge Plan Departure Patient Disposition: Home Clinical Impression: Impacted cerumen of left ear, Otitis externa Discharge Date/Time: 12/21/17 14:45 Interventions: ED Discharge Assessment Last Done: 12/21/17 14:44 Instructions: DI for Cerumen Impaction Activity Restrictions/Additional Instructions: Left ear was impacted with ear wax. Ear wax was removed by irrigation. Ear canal appears to be erythematous so year prescribed a antibiotic drops to treat for outer ear infection use as directed. Use [id number] Motrin as needed for any discomfort. May use ear wax removing drops [id number] for future ear wax removal. Follow up with her primary care provider. Return emergency room for any worsening symptoms. Prescriptions: New ciprofloxacin-dexamethasone [Ciprodex] 0.3-0.1 % drops,suspension 4 drop EAR-LEFT BID 7 Days Qty: 7.5 RF: 0 No Action insulin lispro [Humalog KwikPen Insulin] 100 UNIT/1 ML insulin pen 1 - 12 unit SQ TIDCC Qty: 1 RF: 3 hydrocortisone acetate [Anusol-HC] 25 MG suppository 25 mg R BID Qty: 14 RF: 0 True Metrix test strips Qty: 100 RF: 1 docusate sodium [Colace] 100 MG capsule 100 mg PO QDAY PRN (Reason: Constipation) RF: 0 ondansetron [Zofran ODT] 4 MG tablet,disintegrating 4 mg Sublingual Q6HP PRN (Reason: Nausea) RF: 0 insulin glargine [Lantus Solostar U-100 Insulin] 100 UNIT/1 ML insulin pen 15 u SQ BEDTIME RF: 0 [place] 1 ea miscellaneous DIRECTED RF: 0 Syringes 1 syr miscellaneous DIRECTED RF: 0 sucralfate [Carafate] 100 mg/mL suspension 10 ml PO QID RF: 0 pantoprazole 40 mg tablet,delayed release (DR/EC) 40 mg PO DAILY RF: 0 lorazepam 0.5 mg tablet 1 tab PO TID PRN (Reason: Anxiety) RF: 0 imatinib [Gleevec] 100 MG tablet 300 mg PO QPM RF: 0 Referrals: Madalyn Willingham DO [Primary Care Provider] - <Bre Cespedes DO - Last Filed: 12/23/17 08:46> Cosign ED Attending Andreaature Attestation: I was immediately available in the department for consultation. Documentation has been reviewed. I agree with assessment and plan.
== END 2017-12-21 14:45 | disposition home or self-care (01) ==
PROVIDERS: Emergency Provider Nurse Practitioner Family; Family Provider Family Medicine; PCP Family Medicine
DX: H61.22 Impacted cerumen, left ear (principal); H60.92 Unspecified otitis externa, left ear
CPT/HCPCS: 69209; 99282; 99283

== ENCOUNTER 2018-01-19 09:54 | Inpatient (IN) | payer MEDICAID, SELFPAY ==
[2018-01-19] VITALS (19 sets, daily range): BP systolic 124–157; BP diastolic 87–102; PULSE 76–115; RESP 11–18; TEMP 36.1–37.4; O2SAT 95–100; BMI 21.7
--- NOTE | 2018-01-19 | DI.CT.S_ITS ---
PROCEDURE: CT ABDOMEN PELVIS W CON INDICATIONS: abdominal pain TECHNIQUE: After the administration of intravenous contrast, 5 mm thick sections acquired from the diaphragm to the symphysis. 5 mm coronal and sagittal reformats were acquired. For radiation dose reduction, the following was used: automated exposure control, adjustment of mA and/or kV according to patient size. COMPARISON: [facility], CT, ABDOMEN/PELVIS WITH CONTRAST, 09/28/2015, 13:37. [facility], CT, ABDOMEN/PELVIS WITH CONTRAST, 07/13/2017, 15:01. FINDINGS: Image quality: Excellent. ABDOMEN: Lung bases: Lung bases are clear. Heart size is normal. Solid organs: The liver is diffusely hypodense suggesting hepatic steatosis. Multiple punctate gallstones are layered in the gallbladder fundus. No gallbladder wall thickening or pericholecystic fluid. Biliary system is non dilated. The pancreas is mildly atrophic with parenchymal calcifications throughout suggesting prior pancreatitis. Spleen measures 13.2 cm in length and is unchanged when compared with the prior CT dated 07/13/17. The spleen is decreased in length when compared with the study dated 09/28/15 where it measured 18.5 cm in length. No adrenal nodules. Kidneys demonstrate normal size and enhancement, without hydronephrosis. Peritoneum and bowel: Bowel loops demonstrate normal wall thickness and caliber. The appendix is not visualized; however there is no discrete right lower quadrant fluid or fat stranding to suggest acute appendicitis. No free fluid or air. Nodes and vessels: No retroperitoneal or mesenteric adenopathy by size criteria. Aorta and inferior vena cava are normal in size. Miscellaneous: No ventral hernias. PELVIS: Genitourinary: Bladder wall thickness is normal. Miscellaneous: No inguinal hernias or adenopathy. Bones: No suspicious bony lesions. No vertebral body compression fractures. Posterior lumbar fixation hardware appears grossly intact. IMPRESSION: 1. No acute intra-abdominal findings. The appendix is not visualized; however there are no ancillary findings to suggest acute appendicitis. 2. Hepatic steatosis and mild splenomegaly. Dictated by: Maria M Schwarz M.D. on 01/19/2018 at 14:16 Approved by: Maria M Schwarz M.D. on 01/19/2018 at 14:25
--- NOTE | 2018-01-19 09:57 | ED.NAVMDI ---
HPI - Nausea/Vomiting/Diarrhea General Chief complaint: Toxicology Problem Stated complaint: 5+ DAYS CANNOT KEEP FOOD DOWN,TREMORS Time Seen by Provider: 01/19/18 09:57 Source: patient Mode of arrival: ambulatory Limitations: no limitations History of Present Illness HPI Narrative: Patient is a 42-year-old male with a history of CML here for evaluation of ?not feeling well? for the past several days. Patient states that he has not taken his chemotherapy medication in the past for 5 days because of the nausea vomiting. He states he has not had a bowel movement that period of time as well. He states that he has started to quit drinking. Has had drinking on and off for the past couple days. States that his last drink was yesterday at 3 o'clock in the afternoon. He states that he feels like he is going through withdrawal. He states that he has withdrawn from alcohol in the past. Has had seizures in the past. He is an insulin-dependent diabetic. He states he just does not feel very well. Related Data Home Medications Medication Instructions Recorded Confirmed docusate sodium [Colace] 100 mg PO QDAY PRN 10/20/17 01/19/18 Kyburz 1 ea MISCELLANEOUS DIRECTED 11/10/17 01/19/18 Syringes 1 syr MISCELLANEOUS DIRECTED 11/10/17 01/19/18 insulin glargine [Lantus Solostar 15 u SQ BID 11/10/17 01/19/18 U-100 Insulin] ondansetron [Zofran ODT] 4 mg SUBLINGUAL Q6HP PRN 11/17/17 01/19/18 imatinib [Gleevec] 300 mg PO QPM 12/16/17 01/19/18 lorazepam 1 tab PO TID PRN 12/16/17 01/19/18 pantoprazole 40 mg PO BID 12/16/17 01/19/18 sucralfate [Carafate] 10 ml PO QID 12/16/17 01/19/18 Previous Rx's Medication Instructions Recorded insulin lispro [Humalog KwikPen 1 - 12 unit SQ TIDCC #1 ea 03/25/17 Insulin] hydrocortisone acetate [Anusol-HC] 25 mg R BID #14 supp 07/15/17 True Metrix test strips #100 each 08/18/17 Allergies Allergy/AdvReac Type Severity Reaction Status Date / Time Penicillins [PENICILLINS] Allergy Severe Tongue Verified 01/19/18 10:00 swelling, hives adhesive Allergy Unknown PLASTIC Verified 01/19/18 10:00 TAPE latex [LATEX] Allergy Unknown Verified 01/19/18 10:00 Review of Systems Constitutional Denies chills, Reports fatigue, Denies fever(s), Denies headache(s) and Reports lethargy ENT Ears, Nose, Mouth, and Throat: Denies vertigo, Denies dizziness and Denies headache(s) Cardiovascular Denies chest pain and Denies dyspnea Respiratory Denies dyspnea Gastrointestinal Gastrointestinal: Denies melena, Reports constipation, Denies diarrhea, Reports nausea and Reports vomiting Genitourinary Denies dysuria Musculoskeletal Reports myalgias, Reports arthralgias and Reports muscle weakness Integumentary/Breasts Denies lesions and Denies rash Neurologic Denies vertigo, Denies dizziness and Denies headache(s) Endocrine Reports fatigue Hematologic/Lymphatic Denies easy bleeding and Denies easy bruising [facility] Medical History CML (chronic myelocytic leukemia) (Acute) Insulin dependent diabetes mellitus (Acute) Surgical History Status post appendectomy Social History Smoking Status: Former smoker Exam Initial Vital Signs Initial Vital Signs: Vital Signs Temperature 99.3 F 01/19/18 10:00 Pulse Rate 115 H 01/19/18 10:00 Respiratory Rate 18 01/19/18 10:00 Blood Pressure 157/102 H 01/19/18 10:00 Pulse Oximetry 95 01/19/18 10:00 Const General: well developed, well groomed and anxious Orientation: alert, awake and oriented x3 HENMT Head: normal to inspection and normocephalic Nose: external nose normal Mouth: oral mucosae normal Teeth and gingiva: dentition normal Throat: posterior oropharynx normal Resp Effort & Inspection: normal respiratory effort Auscultation: clear to auscultation bilaterally Cardio Rate: tachycardic Rhythm: regular rhythm Pulses: radial pulses present GI Inspection: non-distended Palpation: soft, No firm, No guarding and tender (Diffusely tender) Skin Lesions: no lesions Rashes: no rashes Neuro General: alert, awake and oriented x3 Extrem General: normal to inspection Right upper extremity: normal to inspection Psych Appearance: grossly normal and well kempt Course Orders Ordered: ED Orders 01/19/18 10:00 Comprehensive Metabolic Panel Stat Lipase Stat Partial Thromboplastin Time Stat Prothrombin Time INR Stat 01/19/18 10:03 Complete Blood Count AUTO DIFF Stat Lactate (Lactic Acid) Stat Type and Screen Stat 01/19/18 10:40 Ethanol (ETOH) Stat 01/19/18 14:29 EKG-12 Lead Stat 01/19/18 14:31 Troponin I Stat 01/19/18 15:50 Lactate 4HR (Lactic Acid Rflx) Stat 01/19/18 16:33 Education, smoking cessation ONGOING 01/20/18 05:00 Complete Blood Count AUTO DIFF Routine Comprehensive Metabolic Panel Routine Acetaminophen (Tylenol) 650 mg PO Q6HR PRN PRN Reason: As Needed for Fever/Mild Pain Dextrose (D50w) 25 gm IV PRN PRN; Protocol PRN Reason: Hypoglycemia Enoxaparin Sodium (Lovenox) 40 mg SUBCUT DAILY ROBIN Hydromorphone HCl (Dilaudid) 0.5 mg IV Q6HR PRN PRN Reason: Pain, Moderate (4-6) Sodium Chloride (Normal Saline 0.9%) 1,000 mls @ 100 mls/hr IV CONT ROBIN Last Admin: 01/19/18 17:37 Dose: 100 mls/hr Insulin Aspart (Novolog Flexpen) 0 unit SUBCUT ACHS ROBIN; Protocol Insulin Glargine (Lantus Solostar (Pen)) 15 unit SUBCUT BID ROBIN Lorazepam (Ativan) 2 mg IV Q2HR PRN PRN Reason: Alcohol Withdrawal Ondansetron HCl (Zofran) 4 mg IV Q8HR PRN PRN Reason: Nausea And Vomiting Pantoprazole Sodium (Protonix) 20 mg PO 0600 ROBIN Discontinued Medications Hydromorphone HCl (Dilaudid) 1 mg IV NOW ONE Stop: 01/19/18 10:49 Last Admin: 01/19/18 10:54 Dose: 1 mg Hydromorphone HCl (Dilaudid) 0.5 mg IV NOW ONE Stop: 01/19/18 12:20 Last Admin: 01/19/18 12:30 Dose: 0.5 mg Hydromorphone HCl (Dilaudid) 0.5 mg IV NOW ONE Stop: 01/19/18 14:44 Last Admin: 01/19/18 14:55 Dose: 0.5 mg Sodium Chloride (Normal Saline 0.9%) 1,000 mls @ 1,000 mls/hr IV BOLUS ONE Stop: 01/19/18 11:01 Last Infusion: 01/19/18 11:32 Dose: 0 mls/hr Admin: 01/19/18 10:16 Dose: 1,000 mls/hr Lorazepam (Ativan) 1 mg IV NOW ONE Stop: 01/19/18 10:15 Last Admin: 01/19/18 10:18 Dose: 1 mg Lorazepam (Ativan) 1 mg IV NOW ONE Stop: 01/19/18 13:45 Last Admin: 01/19/18 13:45 Dose: 1 mg Lorazepam (Ativan) 1 mg IV NOW ONE Stop: 01/19/18 14:44 Last Admin: 01/19/18 14:54 Dose: 1 mg Ondansetron HCl (Zofran) 4 mg IV NOW ONE Stop: 01/19/18 10:15 Last Admin: 01/19/18 10:16 Dose: 4 mg Ondansetron HCl (Zofran) 4 mg IV NOW ONE Stop: 01/19/18 12:20 Last Admin: 01/19/18 12:30 Dose: 4 mg Ondansetron HCl (Zofran) 4 mg IV NOW ONE Stop: 01/19/18 14:44 Last Admin: 01/19/18 14:54 Dose: 4 mg Vital Signs - 8 hr 01/19/18 10:00 01/19/18 10:20 01/19/18 10:31 Temperature 99.3 F Pulse Rate 115 H 108 H 98 H Respiratory Rate 18 15 Blood Pressure 157/102 H Blood Pressure [Left Arm] 157/100 H 149/89 H Pulse Oximetry 95 95 01/19/18 11:00 01/19/18 11:30 01/19/18 12:00 Temperature Pulse Rate 93 H 92 H 93 H Respiratory Rate 11 L 12 11 L Blood Pressure Blood Pressure [Left Arm] 131/91 H 134/93 H 135/93 H Pulse Oximetry 97 96 01/19/18 12:30 01/19/18 13:00 01/19/18 13:51 Temperature Pulse Rate 92 H 90 88 Respiratory Rate 14 12 Blood Pressure Blood Pressure [Left Arm] 140/94 H 137/91 H 139/91 H Pulse Oximetry 100 01/19/18 14:00 01/19/18 14:18 01/19/18 14:42 Temperature Pulse Rate 89 80 79 Respiratory Rate 15 14 12 Blood Pressure Blood Pressure [Left Arm] 137/89 137/89 148/95 H Pulse Oximetry 97 95 01/19/18 15:00 01/19/18 15:30 01/19/18 16:00 Temperature Pulse Rate 83 79 78 Respiratory Rate 15 15 15 Blood Pressure Blood Pressure [Left Arm] 151/87 H 124/94 H 134/98 H Pulse Oximetry 96 01/19/18 16:30 Temperature Pulse Rate 91 H Respiratory Rate 17 Blood Pressure Blood Pressure [Left Arm] 133/99 H Pulse Oximetry MDM - Nausea/Vomiting/Diarrhea Medical Records Attestation: I reviewed the patient's medical records. Lab Data Attestation: I reviewed the patient's lab results. Result diagrams: 01/19/18 10:03 01/19/18 10:00 Lab Results 01/19/18 01/19/18 01/19/18 Range/Units 10:00 10:00 10:03 WBC 2.9 L (4.5-11.0) X10^3/uL RBC 3.93 L (4.5-5.9) X10^6/uL Hgb 12.7 L (13.5-17.5) g/dL Hct 38.5 L (41-53) % MCV 98.1 (80-100) fL MCH 32.3 (26-34) PG MCHC 32.9 (30-36) % RDW 15.3 H (11.6-14.8) % Plt Count 37 L (150-400) X10^3/uL Neut % (Auto) 68.2 (50-75) % Lymph % (Auto) 21.6 L (25-40) % [place] % (Auto) 9.3 (3-14) % Eos % (Auto) 0.5 L (2-4) % Baso % (Auto) 0.4 (0-2) % Neut # (Auto) 2000 L (2731-7972) /uL Platelet Estimate Decreased on smear RBC Morphology See below Anisocytosis 1+ H PT 11.9 (10.1-12.7) SECONDS INR 1.1 (0.9-1.3) APTT 31 D (26.4-36.2) SECONDS Sodium 141 (137-145) mmol/L Potassium 4.2 (3.4-5.1) mmol/L Chloride 91 L (98-107) mmol/L Carbon Dioxide 30 (22-32) mmol/L BUN 11 (9-20) mg/dL Creatinine 0.90 (0.66-1.25) mg/dL Estimated GFR > 60.0 (>60) mL/min BUN/Creatinine Ratio 12.2 (6-22) Glucose 471 H (70-100) mg/dL Lactate (0.7-2.1) mmol/L Calcium 9.3 (8.4-10.2) mg/dL Total Bilirubin 1.7 H (0.2-1.3) mg/dL AST 128 H (17-59) IU/L ALT 63 (21-72) IU/L Alkaline Phosphatase 126 (38-126) U/L Troponin I (0.01-0.034) ng/mL Total Protein 7.9 (6.3-8.2) g/dL Albumin 4.8 (3.5-5.0) g/dL Globulin 3.1 (1.7-4.1) g/dL Albumin/Globulin Ratio 1.5 (1.0-2.8) Lipase < 10 L (23-300) U/L Ethyl Alcohol mg/dL Blood Type Antibody Screen 01/19/18 01/19/18 01/19/18 Range/Units 10:03 10:03 10:40 WBC (4.5-11.0) X10^3/uL RBC (4.5-5.9) X10^6/uL Hgb (13.5-17.5) g/dL Hct (41-53) % MCV (80-100) fL MCH (26-34) PG MCHC (30-36) % RDW (11.6-14.8) % Plt Count (150-400) X10^3/uL Neut % (Auto) (50-75) % Lymph % (Auto) (25-40) % [place] % (Auto) (3-14) % Eos % (Auto) (2-4) % Baso % (Auto) (0-2) % Neut # (Auto) (5123-5293) /uL Platelet Estimate RBC Morphology Anisocytosis PT (10.1-12.7) SECONDS INR (0.9-1.3) APTT (26.4-36.2) SECONDS Sodium (137-145) mmol/L Potassium (3.4-5.1) mmol/L Chloride (98-107) mmol/L Carbon Dioxide (22-32) mmol/L BUN (9-20) mg/dL Creatinine (0.66-1.25) mg/dL Estimated GFR (>60) mL/min BUN/Creatinine Ratio (6-22) Glucose (70-100) mg/dL Lactate 3.1 H (0.7-2.1) mmol/L Calcium (8.4-10.2) mg/dL Total Bilirubin (0.2-1.3) mg/dL AST (17-59) IU/L ALT (21-72) IU/L Alkaline Phosphatase (38-126) U/L Troponin I (0.01-0.034) ng/mL Total Protein (6.3-8.2) g/dL Albumin (3.5-5.0) g/dL Globulin (1.7-4.1) g/dL Albumin/Globulin Ratio (1.0-2.8) Lipase (23-300) U/L Ethyl Alcohol 71 mg/dL Blood Type A Positive Antibody Screen Negative 01/19/18 01/19/18 Range/Units 14:31 15:50 WBC (4.5-11.0) X10^3/uL RBC (4.5-5.9) X10^6/uL Hgb (13.5-17.5) g/dL Hct (41-53) % MCV (80-100) fL MCH (26-34) PG MCHC (30-36) % RDW (11.6-14.8) % Plt Count (150-400) X10^3/uL Neut % (Auto) (50-75) % Lymph % (Auto) (25-40) % [place] % (Auto) (3-14) % Eos % (Auto) (2-4) % Baso % (Auto) (0-2) % Neut # (Auto) (9785-8751) /uL Platelet Estimate RBC Morphology Anisocytosis PT (10.1-12.7) SECONDS INR (0.9-1.3) APTT (26.4-36.2) SECONDS Sodium (137-145) mmol/L Potassium (3.4-5.1) mmol/L Chloride (98-107) mmol/L Carbon Dioxide (22-32) mmol/L BUN (9-20) mg/dL Creatinine (0.66-1.25) mg/dL Estimated GFR (>60) mL/min BUN/Creatinine Ratio (6-22) Glucose (70-100) mg/dL Lactate 0.9 (0.7-2.1) mmol/L Calcium (8.4-10.2) mg/dL Total Bilirubin (0.2-1.3) mg/dL AST (17-59) IU/L ALT (21-72) IU/L Alkaline Phosphatase (38-126) U/L Troponin I < 0.012 (0.01-0.034) ng/mL Total Protein (6.3-8.2) g/dL Albumin (3.5-5.0) g/dL Globulin (1.7-4.1) g/dL Albumin/Globulin Ratio (1.0-2.8) Lipase (23-300) U/L Ethyl Alcohol mg/dL Blood Type Antibody Screen Point of Care Testing Glucose POC [address] scan - abdomen: Radiologist's impression: PROCEDURE: CT ABDOMEN PELVIS W CON INDICATIONS: abdominal pain TECHNIQUE: After the administration of intravenous contrast, 5 mm thick sections acquired from the diaphragm to the symphysis. 5 mm coronal and sagittal reformats were acquired. For radiation dose reduction, the following was used: automated exposure control, adjustment of mA and/or kV according to patient size. COMPARISON: [facility], CT, ABDOMEN/PELVIS WITH CONTRAST, 09/28/2015, 13:37. [facility], CT, ABDOMEN/PELVIS WITH CONTRAST, 07/13/2017, 15:01. FINDINGS: Image quality: Excellent. ABDOMEN: Lung bases: Lung bases are clear. Heart size is normal. Solid organs: The liver is diffusely hypodense suggesting hepatic steatosis. Multiple punctate gallstones are layered in the gallbladder fundus. No gallbladder wall thickening or pericholecystic fluid. Biliary system is non dilated. The pancreas is mildly atrophic with parenchymal calcifications throughout suggesting prior pancreatitis. Spleen measures 13.2 cm in length and is unchanged when compared with the prior CT dated 07/13/17. The spleen is decreased in length when compared with the study dated 09/28/15 where it measured 18.5 cm in length. No adrenal nodules. Kidneys demonstrate normal size and enhancement, without hydronephrosis. Peritoneum and bowel: Bowel loops demonstrate normal wall thickness and caliber. The appendix is not visualized; however there is no discrete right lower quadrant fluid or fat stranding to suggest acute appendicitis. No free fluid or air. Nodes and vessels: No retroperitoneal or mesenteric adenopathy by size criteria. Aorta and inferior vena cava are normal in size. Miscellaneous: No ventral hernias. PELVIS: Genitourinary: Bladder wall thickness is normal. Miscellaneous: No inguinal hernias or adenopathy. Bones: No suspicious bony lesions. No vertebral body compression fractures. Posterior lumbar fixation hardware appears grossly intact. IMPRESSION: 1. No acute intra-abdominal findings. The appendix is not visualized; however there are no ancillary findings to suggest acute appendicitis. 2. Hepatic steatosis and mild splenomegaly. Dictated by: Maria M Schwarz M.D. on 01/19/2018 at 14:16 Approved by: Maria M Schwarz M.D. on 01/19/2018 at 14:25 MDM Narrative Medical decision making narrative: Patient has received multiple doses of pain medication and also Ativan here in the emergency department for what appeared to be withdrawal like symptoms. Lactate cleared with fluids. CT scan abdomen ordered per recommendation of admitting provider does not show any acute pathology. No signs of active bleeding. Patient states that he has withdrawn from alcohol in the past. Initial alcohol level 71 here in the ER patient states that his last drink was at 3 o'clock yesterday afternoon. Patient hyperglycemic here the ER. CO2 of 30 on his CMP. Doubt DKA. Patient has not taken any of his oncology medications for the past 5 days secondary to nausea and vomiting. He states he has been trying to quit drinking over the past 5 days. Discussed case with Dr. Bucio with Internal Medicine who will admit the patient for continued observation and treatment. Discharge Plan Departure Patient Disposition: Admitted As Inpatient Clinical Impression: Alcohol withdrawal, Abdominal pain, Hyperglycemia Discharge Date/Time: 01/19/18 16:47 Interventions: ED Discharge Assessment Last Done: 01/19/18 16:46 Admit Date/Time: 01/19/18 14:57 Admit Provider: Kim Bucio
[2018-01-19] MEDS: SODIUM CHLORIDE 0.9% 1,000 ML 1000 ML IV (10:16)
[2018-01-19] MEDS: ONDANSETRON 4 MG/2 ML INJ IV ×4 (10:16→19:55)
[2018-01-19] MEDS: LORazepam 2 MG/ML SYRINGE 1 MG IV ×3 (10:18→14:54)
[2018-01-19 10:28] LABS: Alanine Aminotransferase 63 IU/L (21-72); Albumin 4.8 g/dL (3.5-5.0); Albumin Globulin Ratio 1.5 (1.0-2.8); Alkaline Phosphatase 126 U/L (38-126); Aspartate Aminotransferase 128 IU/L (17-59); BUN Creatinine Ratio 12.2 (6-22); Bilirubin Total 1.7 mg/dL (0.2-1.3); Blood Urea Nitrogen 11 mg/dL (9-20); Calcium 9.3 mg/dL (8.4-10.2); Carbon Dioxide 30 mmol/L (22-32); Chloride 91 mmol/L (98-107); Estimated Glomerular Filt Rate > 60.0 mL/min (>60); Globulin 3.1 g/dL (1.7-4.1); Glucose 471 mg/dL (70-100); HEMOLYSIS < 15 (0-50); Potassium 4.2 mmol/L (3.4-5.1); Sodium 141 mmol/L (137-145); Total Protein 7.9 g/dL (6.3-8.2)
[2018-01-19 10:29] LABS: Lipase < 10 U/L (23-300)
--- NOTE | 2018-01-19 10:30 | PC.NURSE ---
for type and screen and lactate.
[2018-01-19 10:31] LABS: INR 1.1 (0.9-1.3); Prothrombin Time 11.9 SECONDS (10.1-12.7)
--- NOTE | 2018-01-19 10:31 | PC.NURSE ---
pt relaxed and cooperative with care.
[2018-01-19 10:33] LABS: PTT Partial Thromboplastin Tim 31 SECONDS (26.4-36.2)
[2018-01-19 10:35] LABS: Hematocrit 38.5 % (41-53); Hemoglobin 12.7 g/dL (13.5-17.5); Neutrophils Absolute Auto 2000 /uL (3000-5900)
[2018-01-19 10:41] LABS: Basophils Percent Auto 0.4 % (0-2); Eosinophils Percent Auto 0.5 % (2-4); Lymphocytes Percent Auto 21.6 % (25-40); Mean Corpuscular HGB Conc 32.9 % (30-36); Mean Corpuscular Hemoglobin 32.3 PG (26-34); Mean Corpuscular Volume 98.1 fL (80-100); Monocytes Percent Auto 9.3 % (3-14); Neutrophils Percent Auto 68.2 % (50-75); Red Blood Cell Count 3.93 X10^6/uL (4.5-5.9); Red Cell Distribution Width 15.3 % (11.6-14.8)
[2018-01-19 10:44] LABS: Platelet Count 37 X10^3/uL (150-400); White Blood Cell Count 2.9 X10^3/uL (4.5-11.0)
[2018-01-19 10:45] LABS: Add Manual Diff / Slide Review SLIDE REVIEW
[2018-01-19] MEDS: HYDROMORPHONE 1 MG INJ IV (10:54)
[2018-01-19 11:01] LABS: Ethanol (ETOH) 71 mg/dL
[2018-01-19 11:13] LABS: Lactate (Lactic Acid) 3.1 mmol/L (0.7-2.1)
[2018-01-19 11:15] LABS: Anisocytosis 1+; Platelet Estimate Decreased on smear
[2018-01-19] MEDS: HYDROMORPHONE 0.5 MG INJ IV ×2 (12:30→14:55)
--- NOTE | 2018-01-19 14:17 | PC.NURSE ---
pt remain alert and cooperative with care, continue to complaint throat pain, with nausea and heaving. skin with slight diaphoresis, medicated with ativan for comfort. pt requesting water to drink, reassured that at this time, needs to remain npo. verbal understanding plan of care. awaiting for ct result at this time.
--- NOTE | 2018-01-19 14:41 | CM.SWNOTE ---
ED SYSTEM VALIDATION ENGINEER NOTE Presenting problem: [facility] was asked to meet with pt since he identified that ETOH abuse was an issue. Although he came into the hospital because of not feeling well, concerns about being unable to take his chemo meds and not having a bowel movement in a few days, he also stated that his drinking was of concern. Plan: [facility] offered pt resources, but he declined. He stated that he only needed to get medication to help with the withdrawal and he'd be ok. He has had a hx of withdrawal related seizures in the past. When asked if pt had any supportive people in his life, he mentioned his parents, but when asked if they drank he stated that they do. It is unclear if pt has any supportive people who are sober in his life. Pt is aware of the location of local AA meetings and open to returning to them. [facility] informed pt that since he is getting admitted, if he changes his mind and wants resources to mention this to the social work/discharge planners on the medical floor. Discharge Planning/Care Management ED Crisis Response Assessment Start: 01/19/18 14:34 Freq: Status: Active Protocol: Document 01/19/18 14:35 (Rec: 01/19/18 14:41 [id number]) ED Crisis Response Assessment SYSTEM VALIDATION ENGINEER Assessment Type Substance Abuse Reason for SYSTEM VALIDATION ENGINEER Referral Pt mentioned to his RN that he desires to quit drinking. Referred by Emergency Department RN Presenting Problem Pt came to the ED because he is not feeling well has had N/ V for several days and been unable to take his chemo medication. He has also not had a bowel movement in several days. He mentioned that he had started drinking again and needs to quit. Pt has had a hx of seizures when withdrawing from ETOH. Mental health diagnosis unknown VOA/CMS check No Suicidal thoughts No Current Risk factors Substance abuse Relevant Medical History CML, low platelets, alcoholism Crisis Plan Pt will be admitted to medical hospital. Resources Provided [facility] inquired if pt was interested in brochures for Crisis Center, [facility], AA or Rethinking drinking. He stated that he has gone through this several times and just needs the medication to help him through the withdrawal. Additional Comment Pt stated that he has started drining again and most recently was drinking 4 24 oz beers daily.
[2018-01-19 15:04] LABS: Reflexed Lactate in 2 Hours Y
[2018-01-19 15:09] LABS: Troponin I < 0.012 ng/mL (0.01-0.034)
[2018-01-19 16:13] LABS: Lactate 2HR (Lactic Acid Rflx) 0.9 mmol/L (0.7-2.1)
--- NOTE | 2018-01-19 17:21 | PM.HP.1 ---
History of Present Illness Date Patient Seen: 01/19/18 Chief complaint: 5+ DAYS CANNOT KEEP FOOD DOWN,TREMORS Narrative: The patient is a 42-year-old male with a history of CML long-standing alcohol abuse who presents at this time with nausea vomiting and abdominal pain. Patient reports he drinks 424 oz beers per day. He about 5 days ago he developed nausea and vomiting. He has been unable to take his medications. Patient has been dry heaving as well. He has not been able to keep any solid food down. He has not vomited up any blood. He has had no blood out of his bottom. He reports he has had no BM. He has had no fever or chills. The patient reports a few months ago he was hospitalized at [facility]. He had what sounds like a Raeann-[place]on[place] tear. Patient received multiple blood transfusions.He underwent CT scan of the pelvis, this confirmed fatty liver. The rest of the CT was unremarkable. The patient reports a history of alcohol withdrawal associated with DT's and seizures. Patient is admitted to the hospital for further evaluation. In the emergency department the patient had an elevated lactate of 3.1 which normalized subsequently. Patient had a markedly elevated blood sugar but no evidence of DKA. Patient History Medical History CML (chronic myelocytic leukemia) (Acute) Insulin dependent diabetes mellitus (Acute) Surgical History Status post appendectomy Family & Social History Family History: Reviewed 01/19/18 by Jermaine Daly DO Safety & Behavioral: Suicidal Ideation Description None Suicide Plan Description No Plan Tobacco & Substance use: Patient is a heavy drinker, drinking 4 24 ounce beers daily Smoking Status Former smoker alcohol intake frequency holiday/special occasion Substance Use Type does not use Meds Home Medications Medication Instructions Recorded Confirmed Type insulin lispro [Humalog KwikPen 1 - 12 unit SQ TIDCC #1 ea 03/25/17 01/19/18 Rx Insulin] hydrocortisone acetate [Anusol-HC] 25 mg R BID #14 supp 07/15/17 01/19/18 Rx True Metrix test strips #100 each 08/18/17 01/19/18 Rx docusate sodium [Colace] 100 mg PO QDAY PRN 10/20/17 01/19/18 History [place] 1 ea MISCELLANEOUS DIRECTED 11/10/17 01/19/18 History Syringes 1 syr MISCELLANEOUS DIRECTED 11/10/17 01/19/18 History insulin glargine [Lantus Solostar 15 u SQ BID 11/10/17 01/19/18 History U-100 Insulin] ondansetron [Zofran ODT] 4 mg SUBLINGUAL Q6HP PRN 11/17/17 01/19/18 History imatinib [Gleevec] 300 mg PO QPM 12/16/17 01/19/18 History lorazepam 1 tab PO TID PRN 12/16/17 01/19/18 History pantoprazole 40 mg PO BID 12/16/17 01/19/18 History sucralfate [Carafate] 10 ml PO QID 12/16/17 01/19/18 History Allergies Allergy/AdvReac Type Severity Reaction Status Date / Time Penicillins [PENICILLINS] Allergy Severe Tongue Verified 01/19/18 10:00 swelling, hives adhesive Allergy Unknown PLASTIC Verified 01/19/18 10:00 TAPE latex [LATEX] Allergy Unknown Verified 01/19/18 10:00 Review of Systems Review of Systems other (He reports headache, blurred vision, chills no fever, weight loss, no appetite, heart burn, joint pains, dysuria) Exam Vital Signs (past 8 hours): - 01/19/18 10:00 01/19/18 10:20 01/19/18 10:31 Temperature 99.3 F Pulse Rate 115 H 108 H 98 H Respiratory Rate 18 15 Blood Pressure 157/102 H Blood Pressure [Left Arm] 157/100 H 149/89 H Pulse Oximetry 95 95 01/19/18 11:00 01/19/18 11:30 01/19/18 12:00 Temperature Pulse Rate 93 H 92 H 93 H Respiratory Rate 11 L 12 11 L Blood Pressure Blood Pressure [Left Arm] 131/91 H 134/93 H 135/93 H Pulse Oximetry 97 96 01/19/18 12:30 01/19/18 13:00 01/19/18 13:51 Temperature Pulse Rate 92 H 90 88 Respiratory Rate 14 12 Blood Pressure Blood Pressure [Left Arm] 140/94 H 137/91 H 139/91 H Pulse Oximetry 100 01/19/18 14:00 01/19/18 14:18 01/19/18 14:42 Temperature Pulse Rate 89 80 79 Respiratory Rate 15 14 12 Blood Pressure Blood Pressure [Left Arm] 137/89 137/89 148/95 H Pulse Oximetry 97 95 01/19/18 15:00 01/19/18 15:30 01/19/18 16:00 Temperature Pulse Rate 83 79 78 Respiratory Rate 15 15 15 Blood Pressure Blood Pressure [Left Arm] 151/87 H 124/94 H 134/98 H Pulse Oximetry 96 01/19/18 16:30 Temperature Pulse Rate 91 H Respiratory Rate 17 Blood Pressure Blood Pressure [Left Arm] 133/99 H Pulse Oximetry Oxygen Delivery Method Room Air Narrative Exam Narrative: Ill appearing dishelved man HEENT: NC/AT, EOMI, Oropharynx: red posterior pharynx Neck: supple without adenopathy Lungs: decreased breath sounds but clear to auscultation CV: tachy RRR nl S1 S2 ABd: soft/ mildly tender/ non distended/ no Hepatosplenomegaly Ext: no edema Neuro: non focal Skin: no lesions Objective Labs Result Diagrams: 01/19/18 10:03 01/19/18 10:00 Labs: Laboratory Results - last 24 hr 01/19/18 01/19/18 01/19/18 10:00 10:00 10:03 WBC 2.9 L RBC 3.93 L Hgb 12.7 L Hct 38.5 L MCV 98.1 MCH 32.3 MCHC 32.9 RDW 15.3 H Plt Count 37 L Neut % (Auto) 68.2 Lymph % (Auto) 21.6 L [place] % (Auto) 9.3 Eos % (Auto) 0.5 L Baso % (Auto) 0.4 Neut # (Auto) 2000 L Platelet Estimate Decreased on smear RBC Morphology See below Anisocytosis 1+ H PT 11.9 INR 1.1 APTT 31 D Sodium 141 Potassium 4.2 Chloride 91 L Carbon Dioxide 30 BUN 11 Creatinine 0.90 Estimated GFR > 60.0 BUN/Creatinine Ratio 12.2 Glucose 471 H Lactate Calcium 9.3 Total Bilirubin 1.7 H AST 128 H ALT 63 Alkaline Phosphatase 126 Troponin I Total Protein 7.9 Albumin 4.8 Globulin 3.1 Albumin/Globulin Ratio 1.5 Lipase < 10 L Ethyl Alcohol Blood Type Antibody Screen 1001/19/18 01/19/18 10:03 10:03 10:40 WBC RBC Hgb Hct MCV MCH MCHC RDW Plt Count Neut % (Auto) Lymph % (Auto) [place] % (Auto) Eos % (Auto) Baso % (Auto) Neut # (Auto) Platelet Estimate RBC Morphology Anisocytosis PT INR APTT Sodium Potassium Chloride Carbon Dioxide BUN Creatinine Estimated GFR BUN/Creatinine Ratio Glucose Lactate 3.1 H Calcium Total Bilirubin AST ALT Alkaline Phosphatase Troponin I Total Protein Albumin Globulin Albumin/Globulin Ratio Lipase Ethyl Alcohol 71 Blood Type A Positive Antibody Screen Negative 01/19/18 01/19/18 14:31 15:50 WBC RBC Hgb Hct MCV MCH MCHC RDW Plt Count Neut % (Auto) Lymph % (Auto) [place] % (Auto) Eos % (Auto) Baso % (Auto) Neut # (Auto) Platelet Estimate RBC Morphology Anisocytosis PT INR APTT Sodium Potassium Chloride Carbon Dioxide BUN Creatinine Estimated GFR BUN/Creatinine Ratio Glucose Lactate 0.9 Calcium Total Bilirubin AST ALT Alkaline Phosphatase Troponin I < 0.012 Total Protein Albumin Globulin Albumin/Globulin Ratio Lipase Ethyl Alcohol Blood Type Antibody Screen Assessment & Plan (1) CML (chronic myelocytic leukemia): Problem details: 42-year-old man with longstanding history of CML. He will continue on Gleevec at 300 mg daily. Gleevec on hold given persistent nausea and vomiting Current visit: No Status: Acute (2) Weakness: Problem details: Likely related to the alcoholism/vomiting, will resume IVF Current visit: No Status: Acute (3) Dizziness: Problem details: as above Current visit: No Status: Acute (4) Nausea & vomiting: Problem details: Suspect alcoholic gastritis vs. GERD. No evidence of bleeding at this time. Will start antiemetics, PPI, IV hydration Current visit: No Status: Acute (5) Alcohol withdrawal: Problem details: Patient has been placed on high dose of Ativan for withdrawal. Will start Multivitamins as well Qualifiers: Complication of substance-induced condition: with unspecified complication Qualified Code(s): F10.239 - Alcohol dependence with withdrawal, unspecified Current visit: Yes Status: Acute
[2018-01-19] MEDS: SODIUM CHLORIDE 0.9% 1,000 ML 100 ML IV (17:37)
[2018-01-19] MEDS: LORazepam 2 MG/ML SYRINGE IV ×3 (17:44→21:59)
[2018-01-19] MEDS: MAGNESIUM SULFATE 2 GM, FOLIC ACID 1 MG, THIAMINE 100 MG, MULTIVITAMIN 10 ML in SODIUM ... IV (18:08)
--- NOTE | 2018-01-19 18:47 | PC.NURSE ---
Chelsie shift note: Patient admitted to AC from ED, awake, alert and cooperative. Ambulated to BR to void, no skin issues noted. Required 1 person assistance with FWW for support. IVF initiated. C/O nausea and abdominal discomfort. Call light within reach. Oriented to room/environment and plan of care.
[2018-01-19] MEDS: HYDROMORPHONE 1 MG INJ 0.5 MG IV (19:55)
[2018-01-19] MEDS: INSULIN GLARGINE 100 UNIT/ML 3ML PEN 15 UNIT SUBCUT (20:05)
[2018-01-19] MEDS: INSULIN ASPART 100 UNIT/ML INSULN PEN SUBCUT (20:06)
[2018-01-20] VITALS (9 sets, daily range): BP systolic 118–148; BP diastolic 79–98; PULSE 74–97; RESP 16–20; TEMP 36.5–36.8; O2SAT 96–98; BMI 21.8
[2018-01-20] MEDS: LORazepam 2 MG/ML SYRINGE IV ×7 (00:55→23:54)
[2018-01-20] MEDS: HYDROMORPHONE 1 MG INJ 0.5 MG IV ×4 (01:57→18:59)
[2018-01-20] MEDS: SODIUM CHLORIDE 0.9% 1,000 ML 100 ML IV ×3 (02:40→22:47)
[2018-01-20] MEDS: ONDANSETRON 4 MG/2 ML INJ IV ×2 (04:16→19:00)
[2018-01-20 05:11] LABS: Basophils Percent Auto 0.4 % (0-2); Eosinophils Percent Auto 1.4 % (2-4); Hematocrit 31.8 % (41-53); Hemoglobin 10.6 g/dL (13.5-17.5); Lymphocytes Percent Auto 26.2 % (25-40); Mean Corpuscular HGB Conc 33.2 % (30-36); Mean Corpuscular Hemoglobin 32.5 PG (26-34); Mean Corpuscular Volume 97.9 fL (80-100); Monocytes Percent Auto 6.6 % (3-14); Neutrophils Absolute Auto 1900 /uL (3000-5900); Neutrophils Percent Auto 65.4 % (50-75); Red Blood Cell Count 3.25 X10^6/uL (4.5-5.9); Red Cell Distribution Width 15.7 % (11.6-14.8); White Blood Cell Count 2.9 X10^3/uL (4.5-11.0)
[2018-01-20 05:21] LABS: Alanine Aminotransferase 56 IU/L (21-72); Albumin 3.7 g/dL (3.5-5.0); Albumin Globulin Ratio 1.4 (1.0-2.8); Alkaline Phosphatase 90 U/L (38-126); Aspartate Aminotransferase 104 IU/L (17-59); BUN Creatinine Ratio 16.3 (6-22); Bilirubin Total 1.5 mg/dL (0.2-1.3); Blood Urea Nitrogen 13 mg/dL (9-20); Calcium 8.5 mg/dL (8.4-10.2); Carbon Dioxide 32 mmol/L (22-32); Chloride 100 mmol/L (98-107); Estimated Glomerular Filt Rate > 60.0 mL/min (>60); Globulin 2.7 g/dL (1.7-4.1); Glucose 98 mg/dL (70-100); HEMOLYSIS < 15 (0-50); Potassium 3.5 mmol/L (3.4-5.1); Sodium 140 mmol/L (137-145); Total Protein 6.4 g/dL (6.3-8.2)
[2018-01-20 05:40] LABS: Platelet Count 26 X10^3/uL (150-400)
[2018-01-20 05:45] LABS: Add Manual Diff / Slide Review SLIDE REVIEW
[2018-01-20 05:48] LABS: Anisocytosis 1+
[2018-01-20 05:50] LABS: Platelet Estimate APPEAR DECREASED
[2018-01-20] MEDS: PANTOPRAZOLE 20 MG TABLET PO (07:05)
--- NOTE | 2018-01-20 10:58 | PC.NURSE ---
Dr. Bucio into see patient around 914, pt stated to her that he was having some hallucinations and seeing things on the wall. She asked nursing to give pt 2mg of iv ativan. Medication given and this rn reminded patient to use call light if he was feeling to over sedated. Pt has been visiting with his friend, and he is doing well so far. He does dose in/out but is totally A&Ox3.
--- NOTE | 2018-01-20 12:15 | PM.PN.1 ---
Subjective Date Patient Seen: 01/20/18 Interval history: Patient reports he is hallucinating. He also complains of burning esophageal pain and back pain. He has been unable to eat. He was given ativan earlier this morning. Patient states esophageal pain feels like prior episode of Raeann [place] Tear. No hemetemsis noted here. Exam Vital Signs (past 8 hours): - 01/20/18 08:00 01/20/18 10:31 Temperature 97.8 F Pulse Rate 74 Respiratory Rate 17 Blood Pressure 126/79 Pulse Oximetry 97 96 Oxygen Delivery Method Room Air Oxygen Flow Rate 0 Narrative Exam Narrative: Ill appearing male, with tremor Lungs: decreased breath sounds CV: RRR nl Sl S2 ABd: soft/ mildly tender Ext: no edema Objective Labs Result Diagrams: 01/20/18 04:55 01/20/18 04:55 Labs: Laboratory Results - last 24 hr 01/19/18 01/19/18 01/20/18 14:31 15:50 04:55 WBC 2.9 L RBC 3.25 L Hgb 10.6 L Hct 31.8 L MCV 97.9 MCH 32.5 MCHC 33.2 RDW 15.7 H Plt Count 26 L* Neut % (Auto) 65.4 Lymph % (Auto) 26.2 [place] % (Auto) 6.6 Eos % (Auto) 1.4 L Baso % (Auto) 0.4 Neut # (Auto) 1900 L Platelet Estimate Appear decreased RBC Morphology See below Anisocytosis 1+ H Sodium Potassium Chloride Carbon Dioxide BUN Creatinine Estimated GFR BUN/Creatinine Ratio Glucose Lactate 0.9 Calcium Total Bilirubin AST ALT Alkaline Phosphatase Troponin I < 0.012 Total Protein Albumin Globulin Albumin/Globulin Ratio 01/20/18 04:55 WBC RBC Hgb Hct MCV MCH MCHC RDW Plt Count Neut % (Auto) Lymph % (Auto) [place] % (Auto) Eos % (Auto) Baso % (Auto) Neut # (Auto) Platelet Estimate RBC Morphology Anisocytosis Sodium 140 Potassium 3.5 Chloride 100 Carbon Dioxide 32 BUN 13 Creatinine 0.80 Estimated GFR > 60.0 BUN/Creatinine Ratio 16.3 Glucose 98 D Lactate Calcium 8.5 Total Bilirubin 1.5 H AST 104 H ALT 56 Alkaline Phosphatase 90 Troponin I Total Protein 6.4 Albumin 3.7 Globulin 2.7 Albumin/Globulin Ratio 1.4 Assessment & Plan (1) Back pain: Problem details: Continue pain medications Current visit: No Status: Acute (2) Hyperglycemia: Problem details: Will cover with sliding scale insulin Current visit: Yes Status: Acute (3) Nausea & vomiting: Problem details: Suspect alcoholic gastritis vs. GERD. No evidence of bleeding at this time. Will start antiemetics, PPI, IV hydration Will add sulcrafate Current visit: No Status: Acute (4) Anemia: Problem details: will follow, suspect rehydration, no obvious source of bleeding Current visit: No Status: Acute (5) Dehydration: Current visit: No Status: Acute (6) Thrombocytopenia: Problem details: Related to alcoholic marrow suppression vs.Gleevec,( he has been off this med for some time) Current visit: Yes Status: Acute Plan: Assessment/Plan Narrative: CML-resume gleevec when able to do so
[2018-01-20] MEDS: INSULIN ASPART 100 UNIT/ML INSULN PEN SUBCUT ×2 (12:57→17:02)
--- NOTE | 2018-01-20 14:48 | PC.NURSE ---
Patient is a 42 y.o male here due to inability to keep food down and nausea and alcohol withdrawal. He has a PMH of leukemia and diabetes mellitus. He is on a clear liquid diet. Patient complains of generalized pain throughout abdomen, chest, neck and head, nausea, and anxiety. His last dose of lorazepam was at 9:51am at 2mg due to anxiety post med perez patient appeared relaxed, sleeping and (patient reports it did not work for anxiety) Last dose of hydromorphone 13:25 for pain patient reported pain decreased. Normal saline running 100mL/hour. Patient oxygen 96% on room air. On tele with normal sinus rhythm. Speech is slurred and slow. No BM in 5 days.
[2018-01-21] VITALS (8 sets, daily range): BP systolic 114–150; BP diastolic 74–98; PULSE 70–97; RESP 16–18; TEMP 36.6–37.1; O2SAT 95–99
[2018-01-21] MEDS: HYDROMORPHONE 1 MG INJ 0.5 MG IV ×3 (01:02→12:24)
[2018-01-21] MEDS: ONDANSETRON 4 MG/2 ML INJ IV ×2 (03:21→12:55)
[2018-01-21] MEDS: LORazepam 2 MG/ML SYRINGE IV ×4 (03:21→10:35)
[2018-01-21] MEDS: PANTOPRAZOLE 20 MG TABLET PO ×2 (05:53→14:22)
[2018-01-21] MEDS: SODIUM CHLORIDE 0.9% 1,000 ML 100 ML IV (08:07)
[2018-01-21] MEDS: INSULIN GLARGINE 100 UNIT/ML 3ML PEN 15 UNIT SUBCUT ×2 (10:00→20:46)
--- NOTE | 2018-01-21 10:38 | PC.NURSE ---
pt ambulated to bathroom using walker with 1 person assist and gait belt. pt unsteady on feet. flushed toilet before bm assessed. pt states he had a little BM. showered with assistance. Tele back on. Ativan 2mg IV given. IV infusing.
[2018-01-21] MEDS: INSULIN ASPART 100 UNIT/ML INSULN PEN SUBCUT ×2 (12:56→20:45)
[2018-01-21] MEDS: chlordiazePOXIDE 10 MG CAPSULE PO (14:22)
--- NOTE | 2018-01-21 14:34 | CM.DPC ---
DCP Cont: Dr Casas is interested in discharging pt tomorrow if he can speak w/pt and his mom, and go over treatment options that might assist pt in remaining sober. Dr Casas suggests medication assisted treatment if pt's mom can assist in the administration w/close outpt f/u w/ PCP. TC placed to pt's mom Lelo and Dad Roberth, requested that they come in today to speak w/pt and Dr Casas and they agreed to a mtg at 1730 (Dr Casas's requested time). This PLUG MACHINE OPERATOR updated Dr Casas. Then met w/pt to review DCP. Pt is fairly agitated during this PLUG MACHINE OPERATOR's visit and states he is ready to go, he's hungry and has a lot of shit to take care of in the real world. Pt agreeable to staying in the hospital until his parents arrive tonight to meet w/fredi and Dr Casas. Pt indicates he wants to remain sober but does not elaborate on how he will stay sober upon DC. He denies the need for counseling or addiction/treatment resources and exhibits resentment re: his parents tendency to worry about him. This PLUG MACHINE OPERATOR attempted to support pt in his stated frustration and encouraged pt to consider that he is in a fragile medical state that is complicated by heavy alcohol use and pt agreed. Pt understands this PLUG MACHINE OPERATOR is available today and tomorrow, w/addtl. PLUG MACHINE OPERATOR support thereafter if needed and pt was appreciative. Still eager to leave the hospital. P: Likely home w/parents tonight. This PLUG MACHINE OPERATOR following closely if pt remains here Wednesday. YASMINE Johnston
--- NOTE | 2018-01-21 16:30 | PT.IPTN ---
Current Diagnoses Chronic myeloid leukemia, BCR/ABL-positive, not having achieved remission (01/19/18) Anemia, unspecified (01/19/18) Thrombocytopenia, unspecified (01/19/18) Dehydration (01/19/18) Alcohol dependence with withdrawal, unspecified (01/19/18) Dorsalgia, unspecified (01/19/18) Nausea with vomiting, unspecified (01/19/18) Dizziness and giddiness (01/19/18) Weakness (01/19/18) Hyperglycemia, unspecified (01/19/18) Physical Therapy Treatment Note M3 PT-IP Subjective Start: 01/21/18 16:28 Freq: NEEDED Status: Active Protocol: Document 01/21/18 16:28 AB (Rec: 01/21/18 16:30 AB [id number]) Subjective Physical Therapy Visit Type Notes attempted PT eval but pt refused. pt with confusion and when educated and motivated to participate, starting to get agitated stating that he does not need any PT and that he is going home tonight or tomorrow.
[2018-01-21] MEDS: chlordiazePOXIDE 25 MG CAPSULE PO (20:53)
[2018-01-21] MEDS: POLYETHYLENE GLYCOL 3350 17 GM POWD.PACK PO (20:53)
[2018-01-21] MEDS: SODIUM CHLORIDE 0.9% FLUSH 10 ML IV (20:53)
--- NOTE | 2018-01-21 22:57 | PC.NURSE ---
Patient's CIWA score was 3 at start of shift; Patient's CIWA score is now 19. Patient states he is seeing bugs on the curtains, floor, etc, is hearing people talking about knives. Patient states he has a severe headache, feels extremely cold, and feels moderately agitated/fidgety. Patient states he feels very anxious. This RN observed patient to have tremors in upper extremities. Patient was oriented at start of shift; patient is no longer oriented as he states he is in a jail cell. While speaking, patient is mixing up words and large parts of sentences are word-salad. Per Dr. Lundberg, ordered ativan 1-2 mg IV q2h PRN. BA is active, patient has multiple warm blankets on him and has been asking for lots of food items. Call light is in reach. Will continue to monitor.
[2018-01-21] MEDS: LORazepam 2 MG/ML SYRINGE 1 MG IV (23:44)
[2018-01-22] VITALS (7 sets, daily range): BP systolic 112–130; BP diastolic 83–93; PULSE 79–103; RESP 16–20; TEMP 36.4–36.7; O2SAT 98
[2018-01-22] MEDS: LORazepam 2 MG/ML SYRINGE 1 MG IV ×3 (03:24→08:55)
--- NOTE | 2018-01-22 05:31 | PC.NURSE ---
during initial assessment pt is hallucinating and was seeing cars. he also believed he was in a hotel and thought that the staff were spies. pt's ciwa was 17, I gave him 1mg of ativan which lasted 4hrs, then ciwa at 0400 was 17 and administered 2mg ativan total. I initially gave him 1mg ativan, but pt remained agitated and kept wanting to get up and leave the hospital. he also called 911 from his cell phone. I reassured pt that he is safe and I also talked to the dispatch. Pt removed his tele x 4. bed alarm on. call light in reach. BG @[phone], @[phone]
[2018-01-22] MEDS: chlordiazePOXIDE 25 MG CAPSULE PO (08:41)
[2018-01-22] MEDS: INSULIN GLARGINE 100 UNIT/ML 3ML PEN 15 UNIT SUBCUT (08:42)
[2018-01-22] MEDS: INSULIN ASPART 100 UNIT/ML INSULN PEN SUBCUT (08:42)
--- NOTE | 2018-01-22 10:10 | PT.IIE ---
Current Diagnoses Chronic myeloid leukemia, BCR/ABL-positive, not having achieved remission (01/19/18) Anemia, unspecified (01/19/18) Thrombocytopenia, unspecified (01/19/18) Dehydration (01/19/18) Alcohol dependence with withdrawal, unspecified (01/19/18) Dorsalgia, unspecified (01/19/18) Nausea with vomiting, unspecified (01/19/18) Dizziness and giddiness (01/19/18) Weakness (01/19/18) Hyperglycemia, unspecified (01/19/18) Surgical History (Last Reviewed 01/19/18 @ 17:37 by Kim Bucio MD) Status post appendectomy Medical History (Last Reviewed 01/19/18 @ 17:37 by Kim Bucio MD) CML (chronic myelocytic leukemia) (Acute) Insulin dependent diabetes mellitus (Acute) Physical Therapy Inpatient Evaluation/Re-Eval M1 PT/OT-IP Prior Functional Status Start: 01/21/18 16:28 Freq: NEEDED Status: Discharge Protocol: Document 01/22/18 10:10 AB (Rec: 01/22/18 13:38 AB [id number]) Medical Review Prior Functional Status Medical History Reviewed Yes Communication able to make needs know but pt with confusion Mobility and Gait pt stated that he is independent with all mobilities and ambulation without AD but occasionally uses a SPC Social History Household Members none Living Arrangements House Number of Floors (Floors) One Floor Number of Stairs To Enter/Railing? no steps to enter Home Environment Standard Height Toilet Walk in Shower Home Equipment Straight Cane Shower Seat without Backrest Grab Bars In Shower M2 PT-IP Current Condition Start: 01/21/18 16:28 Freq: NEEDED Status: Discharge Protocol: Document 01/22/18 10:10 AB (Rec: 01/22/18 13:38 AB [id number]) Physical Therapy Current Condition Current Condition Evaluation Date 01/22/18 Treatment Diagnosis alcohol withdrawal; difficulty in walking Onset Date 01/19/18 Precautions Other Precautions falls M3 PT-IP Subjective Start: 01/21/18 16:28 Freq: NEEDED Status: Discharge Protocol: Document 01/22/18 10:10 AB (Rec: 01/22/18 13:38 AB [id number]) Subjective Physical Therapy Visit Type Type Initial Evaluation Visit Start Time 10:10 Visit Stop Time 10:32 Total Visit Minutes 22 Number of HEAVY DUTY TRUCK MECHANIC Visits 0 Physical Therapy Visit Comments Patient Goals to go home Therapy Pain Assessment Pain When Pain Assessed During Mobility Pain Present Pain Present Pain Reported Location Lower Back Scale Used pain scale not stated Description Chronic M4 PT-IP Mobility and Gait Start: 01/21/18 16:28 Freq: NEEDED Status: Discharge Protocol: Document 01/22/18 10:10 AB (Rec: 01/22/18 13:38 AB [id number]) PT-Bed Mobility Assessment Supine to Sit Supine to Sit Standby Assistance Sit to Supine Sit to Supine Standby Assistance PT-Transfer Assessment Sit to and From Stand Sit to and from Stand Standby Assistance Equipment Transfer Assistive Device Gait Belt Straight Cane Transfers Transfer Destination Toilet Transfer Technique pt ambulated to the toilet using SPC Gait Assessment Gait Gait Assistance Required: Standby Assistance Contact Guard Assist Distance (Feet) 150 Able to Maintain Weight Bearing Status Yes During Gait Assistive Devices Assistive Device Gait Belt Straight Cane Gait Deviations General Gait Pattern Antalgic Flexed Trunk Factors Limiting Gait Function Factors Limiting Gait Function Decreased Activity Tolerance Decreased Strength Difficulty Following Directions Limited Range of Motion Pain Poor Balance Poor Safety Awareness Comments Gait Comments pt presents with unsteady gait but no LOB. pt also presents with increase forward trunk flexion and pt stated that he has constant chronic low back pain. PT-Balance Assessment Sitting Balance and Reactions Static Sitting Balance Ability Good Dynamic Sitting Balance Ability Good Standing Balance and Reactions Static Standing Balance Ability Fair Dynamic Standing Balance Ability Fair Device Used SPC M5 PT-IP Objective Assessments Start: 01/21/18 16:28 Freq: NEEDED Status: Discharge Protocol: Document 01/22/18 10:10 AB (Rec: 01/22/18 13:38 AB [id number]) Orientation Orientation/Cognition Level of Alertness Confusional State Orientation Name Safety Awareness Decreased Safety Awareness Memory Description Short Term Impaired [place] Impaired Gross Range of Motion Lower Extremity ROM Assessment Within Functional Limits Strength Lower Extremity Strength Assessment Within Functional Limits M6 PT-IP Treatment Start: 01/21/18 16:28 Freq: NEEDED Status: Discharge Protocol: Document 01/22/18 10:10 AB (Rec: 01/22/18 13:38 AB [id number]) Physical Therapy Treatment Education Education Provided Safety M7 PT-IP Assessment and Plan Start: 01/21/18 16:28 Freq: NEEDED Status: Discharge Protocol: Document 01/22/18 10:10 AB (Rec: 01/22/18 13:38 AB [id number]) PT Summary Assessment and Plan Potential Rehabilitation Potential Fair Status of Condition at Evaluation Evolving Summary Impairments Pain ROM Strength Balance Coordination Sensation Tone Cognition Bed Mobility Transfers Gait Activity Tolerance Assessment Summary pt requires one person assist for safety as pt is impulsive with decrease safety awareness . program manager transportation stated that pt 's parents checks on him. pt may go home with assist when medically stable. Goals Bed Mobility Goal Independent Transfer Goal Independent Gait Goal Independent Gait Distance 200 Days to Meet Goals 3 Frequency of Treatment Frequency Of Treatment Once a Day Treatment Plan Physical Therapy Treatment Plan Bed Mobility Training Transfer Training Gait Training Therapeutic Exercise Balance Retraining Discharge Planning Hot or Cold Pack Neuromuscular Re-ed Recommendations To Nursing Amount of Assist Needed 1 Person Assist Discharge Recommendations PT Discharge Recommendations Home with 02/11 Assist
--- NOTE | 2018-01-22 12:57 | PC.NURSE ---
Discharge pt with 1:1 PSA for first 4 hrs of shift. Pt impulsive, wobbles on feet. CIWA score this AM was 9, pt continues to feel diaphoretic and have tremors. recognizes that he was hallucinating last night. PIV changed this AM as he had removed it accidentally. PIV removed prior to d/c. d/c instructions provided to pt and his father, notified of f/u apt with Dr Willingham on 01/25. Also told pt to contact MD with any additional questions or concerns. Pt states he took all belongings with him including his cane and cell phone/practice clinician. d/c Rx given to pt's father along with d/c paperwork. Pt left in a w/c with RN escort.
--- NOTE | 2018-01-22 15:10 | PM.PN.1 ---
Subjective Date Patient Seen: 01/21/18 Time Patient Seen: 10:10 Interval history: History of present illness Follow-up on patient with alcohol withdrawal syndrome and thrombocytopenia Review of systems Patient is anxious for discharge. No chest pain or shortness of breath no nausea. Exam Vital Signs (past 8 hours): - 01/22/18 08:10 01/22/18 12:02 Temperature 98.1 F 97.9 F Pulse Rate 93 H 94 H Respiratory Rate 20 16 Blood Pressure 126/85 114/83 Pulse Oximetry 98 Oxygen Delivery Method Room Air Oxygen Flow Rate 0 Narrative Exam Narrative: General appearance awake and alert cachectic appearing male in no apparent distress Psychiatric well oriented to time place person mood was pleasant though of bit anxious Respiratory clear to auscultation with good air flow no wheezes no crackles Cardiovascular regular rate rhythm no murmurs +3 pulses to extremities and GI is benign soft nontender positive bowel sounds no distension no guarding no bruits Neurologic no resting tremors noted no focal neurologic deficit cranial nerves 2-12 grossly intact Objective Labs Result Diagrams: 01/20/18 04:55 01/20/18 04:55 Assessment & Plan Plan: Assessment/Plan Narrative: Alcohol withdrawal syndrome Patient doing fairly well with no resting tremor Low CIWA score noted Alcoholism Spoke to the patient's mother and father as family conference in patient's room Patient's mother and father will be control integration engineer of the [employer] at 25 mg p.o. b.i.d. initially tapered to once daily in outpatient setting with the proviso that patient does not drink any alcohol Patient also to be provided naltrexone 50 mg daily with prescription as well Tentative plan to discharge tomorrow in a.m. Nausea & vomiting: Resolved Patient provided antiemetic therapy IV fluids as needed Anemia: Stable Dehydration: Resolving IV fluids provided Thrombocytopenia: Slightly improving: Time Spent With Patient Time with patient: 25 - 35 minutes (35 min)
--- NOTE | 2018-01-22 15:14 | CM.DPC ---
DC Note: Home w/parents today. Dr Casas completed DC and felt pt was medically stable. According to the conversation w/ RN Nancy, pt's CIWA remains elevated and he is likely still in active withdraw, Dr Casas feels he is medically stable to leave. PT Magda has cleared pt for return home if someone available to assist or check in on him. 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 Pt wants to get out of her and deal with my shit. P: DC home w/family via pov. Pt has an appt w/PCP scheduled this week and has denied need for resources for ETOH treatment/recovery. DREW
--- NOTE | 2018-01-22 15:15 | P.PN_ITS ---
Subjective Date Patient Seen: 01/21/18 Time Patient Seen: 10:10 Interval history: History of present illness Follow-up on patient with alcohol withdrawal syndrome and thrombocytopenia Review of systems Patient is anxious for discharge. No chest pain or shortness of breath no nausea. Exam Vital Signs (past 8 hours): - 01/22/18 08:10 01/22/18 12:02 Temperature 98.1 F 97.9 F Pulse Rate 93 H 94 H Respiratory Rate 20 16 Blood Pressure 126/85 114/83 Pulse Oximetry 98 Oxygen Delivery Method Room Air Oxygen Flow Rate 0 Narrative Exam Narrative: General appearance awake and alert cachectic appearing male in no apparent distress Psychiatric well oriented to time place person mood was pleasant though of bit anxious Respiratory clear to auscultation with good air flow no wheezes no crackles Cardiovascular regular rate rhythm no murmurs +3 pulses to extremities and GI is benign soft nontender positive bowel sounds no distension no guarding no bruits Neurologic no resting tremors noted no focal neurologic deficit cranial nerves 2 -12 grossly intact Objective Labs Result Diagrams: 01/20/18 04:55 01/20/18 04:55 Assessment & Plan Plan: Assessment/Plan Narrative: Alcohol withdrawal syndrome Patient doing fairly well with no resting tremor Low CIWA score noted Alcoholism Spoke to the patient's mother and father as family conference in patient's room Patient's mother and father will be motor vehicle operator road supervisor of the [employer] at 25 mg p.o. b.i.d. initially tapered to once daily in outpatient setting with the proviso that patient does not drink any alcohol Patient also to be provided naltrexone 50 mg daily with prescription as well Tentative plan to discharge tomorrow in a.m. Nausea & vomiting: Resolved Patient provided antiemetic therapy IV fluids as needed Anemia: Stable Dehydration: Resolving IV fluids provided Thrombocytopenia: Slightly improving: Time Spent With Patient Time with patient: 25 - 35 minutes (35 min)
--- NOTE | 2018-01-22 15:15 | PM.DS.1 ---
History of Present Illness Date Patient Seen: 01/22/18 Time Patient Seen: 13:16 Chief complaint: 5+ DAYS CANNOT KEEP FOOD DOWN,TREMORS Narrative: Patient admitted to the hospital with alcohol withdrawal syndrome with gastric upset nausea and vomiting. Patient was managed with IV fluids and CIWA Ativan protocol Medications for his gastric upset including sucralfate and proton pump inhibitor was provided Discharge Providers Date of admission: 01/19/18 14:57 Primary care physician: Madalyn Baeza DO Consults: 01/21/18 13:36 Consult to Physical Therapy Evaluate & Treat Comment: Physician Instructions: Evaluate and Treat Discharge provider: Matthew Casas MD Discharge Date: 01/22/18 Summary Discharge Diagnosis: Alcohol withdrawal syndrome Resolved during hospital course Alcoholism Patient's mother and father will be woven paper hat mender of the [employer] at 25 mg p.o. b.i.d. initially tapered to once daily in outpatient setting with the proviso that patient does not drink any alcohol Patient also to be provided naltrexone 50 mg daily with prescription as well Depression Discharging patient on Celexa 20 mg daily with follow-up with his primary care physician Nausea & vomiting: Resolved Anemia: Stable on discharge Dehydration: Resolved with IV fluids provided during hospital course Thrombocytopenia: Stable on discharge Hospital Course: Patient admitted to the hospital with nausea vomiting and gastric upset. IV fluids provided. Antiemetic therapy provided. CIWA Ativan protocol for alcohol withdrawal was provided. During hospital course I spoke to the patient's mother and father and made arrangements for them to be the woven paper hat mender of [employer] upon discharge. Patient will be provided prescription for [employer] at 25 mg p.o. b.i.d. for 10 days then once daily as needed as long as patient is not drinking Prescription also provided for naltrexone at 50 mg daily I spoke to patient about his depression history and he favor starting an antidepressant. Patient also started on Celexa 20 mg daily prescription provided Status at Discharge Cognitive/behavioral status at discharge: Well oriented no apparent distress on discharge Functional status at discharge: independent ambulation Time Spent with Patient Greater than 30 minutes (40 min) Exam Vital Signs (past 8 hours): - 01/22/18 08:10 01/22/18 12:02 Temperature 98.1 F 97.9 F Pulse Rate 93 H 94 H Respiratory Rate 20 16 Blood Pressure 126/85 114/83 Pulse Oximetry 98 Oxygen Delivery Method Room Air Oxygen Flow Rate 0 Narrative Exam Narrative: Patient ambulates without any difficulties well-oriented no apparent distress Respiratory clear to auscultation with good airflow no wheezes no crackles Cardiovascular regular rate rhythm no murmurs GI benign soft nontender positive bowel sounds noted Neurologic no focal neurologic changes cranial nerves 2-12 grossly intact note tried resting tremor noted Objective Labs Result Diagrams: 01/20/18 04:55 01/20/18 04:55 Discharge Plan Discharge Plan Patient Disposition: Home Discharge Med Rec/Prescriptions Prescriptions: New chlordiazepoxide HCl 25 mg Capsule 25 mg PO BID Qty: 60 RF: 0 naltrexone 50 mg tablet 50 mg PO DAILY Qty: 30 RF: 3 escitalopram oxalate 20 mg tablet 10 mg PO DAILY Qty: 30 RF: 8 Continue insulin lispro [Humalog KwikPen Insulin] 100 UNIT/1 ML insulin pen 1 - 12 unit SQ TIDCC Qty: 1 RF: 3 hydrocortisone acetate [Anusol-HC] 25 MG suppository 25 mg R BID Qty: 14 RF: 0 True Metrix test strips Qty: 100 RF: 1 docusate sodium [Colace] 100 MG capsule 100 mg PO QDAY PRN (Reason: Constipation) RF: 0 ondansetron [Zofran ODT] 4 MG tablet,disintegrating 4 mg Sublingual Q6HP PRN (Reason: Nausea) RF: 0 insulin glargine [Lantus Solostar U-100 Insulin] 100 UNIT/1 ML insulin pen 15 u SQ BID RF: 0 [place] 1 ea miscellaneous DIRECTED RF: 0 Syringes 1 syr miscellaneous DIRECTED RF: 0 sucralfate 100 mg/mL suspension 10 ml PO QID RF: 0 pantoprazole 40 mg tablet,delayed release (DR/EC) 40 mg PO BID RF: 0 imatinib [Gleevec] 100 MG tablet 300 mg PO QPM RF: 0 Discontinued lorazepam 0.5 mg tablet 1 tab PO TID PRN (Reason: Anxiety) RF: 0 Follow up/Referrals: Madalyn Baeza DO [Primary Care Provider] - (appt:01/25 @ 4:15 w/dr baeza [phone]) Provider Discharge Instructions Diet: Diet as Tolerated and Regular Skin/Wound/Dressing Care Report to your healthcare provider any signs of infection, such as:: chills, fever, night sweats, increased pain and unusual drainage Visit Report/Discharge Packet Instructions: DI for Alcohol Abuse, DI for Alcoholic Gastritis Visit Report Forms: Stroke Signs & Symptoms Discharge Data Primary Care Provider: Madalyn Baeza Attending Provider: Kim Bucio Admit Date/Time: 01/19/18 14:57 Discharges patient from system. Discharge Date/Time: 01/22/18 12:45
--- NOTE | 2018-01-22 15:21 | P.DS_ITS ---
History of Present Illness Date Patient Seen: 01/22/18 Time Patient Seen: 13:16 Chief complaint: 5+ DAYS CANNOT KEEP FOOD DOWN,TREMORS Narrative: Patient admitted to the hospital with alcohol withdrawal syndrome with gastric upset nausea and vomiting. Patient was managed with IV fluids and CIWA Ativan protocol Medications for his gastric upset including sucralfate and proton pump inhibitor was provided Discharge Providers Date of admission: 01/19/18 14:57 Primary care physician: Madalyn Baeza DO Consults: 01/21/18 13:36 Consult to Physical Therapy Evaluate & Treat Comment: Physician Instructions: Evaluate and Treat Discharge provider: Matthew Casas MD Discharge Date: 01/22/18 Summary Discharge Diagnosis: Alcohol withdrawal syndrome Resolved during hospital course Alcoholism Patient's mother and father will be senior marketing specialist of the [employer] at 25 mg p.o. b.i.d. initially tapered to once daily in outpatient setting with the proviso that patient does not drink any alcohol Patient also to be provided naltrexone 50 mg daily with prescription as well Depression Discharging patient on Celexa 20 mg daily with follow-up with his primary care physician Nausea & vomiting: Resolved Anemia: Stable on discharge Dehydration: Resolved with IV fluids provided during hospital course Thrombocytopenia: Stable on discharge Hospital Course: Patient admitted to the hospital with nausea vomiting and gastric upset. IV fluids provided. Antiemetic therapy provided. CIWA Ativan protocol for alcohol withdrawal was provided. During hospital course I spoke to the patient's mother and father and made arrangements for them to be the senior marketing specialist of [employer] upon discharge. Patient will be provided prescription for [employer] at 25 mg p.o. b.i.d. for 10 days then once daily as needed as long as patient is not drinking Prescription also provided for naltrexone at 50 mg daily I spoke to patient about his depression history and he favor starting an antidepressant. Patient also started on Celexa 20 mg daily prescription provided Status at Discharge Cognitive/behavioral status at discharge: Well oriented no apparent distress on discharge Functional status at discharge: independent ambulation Time Spent with Patient Greater than 30 minutes (40 min) Exam Vital Signs (past 8 hours): - 01/22/18 08:10 01/22/18 12:02 Temperature 98.1 F 97.9 F Pulse Rate 93 H 94 H Respiratory Rate 20 16 Blood Pressure 126/85 114/83 Pulse Oximetry 98 Oxygen Delivery Method Room Air Oxygen Flow Rate 0 Narrative Exam Narrative: Patient ambulates without any difficulties well-oriented no apparent distress Respiratory clear to auscultation with good airflow no wheezes no crackles Cardiovascular regular rate rhythm no murmurs GI benign soft nontender positive bowel sounds noted Neurologic no focal neurologic changes cranial nerves 2-12 grossly intact note tried resting tremor noted Objective Labs Result Diagrams: 01/20/18 04:55 01/20/18 04:55 Discharge Plan Discharge Plan Patient Disposition: Home Discharge Med Rec/Prescriptions Prescriptions: New chlordiazepoxide HCl 25 mg Capsule 25 mg PO BID Qty: 60 RF: 0 naltrexone 50 mg tablet 50 mg PO DAILY Qty: 30 RF: 3 escitalopram oxalate 20 mg tablet 10 mg PO DAILY Qty: 30 RF: 8 Continue insulin lispro [Humalog KwikPen Insulin] 100 UNIT/1 ML insulin pen 1 - 12 unit SQ TIDCC Qty: 1 RF: 3 hydrocortisone acetate [Anusol-HC] 25 MG suppository 25 mg R BID Qty: 14 RF: 0 True Metrix test strips Qty: 100 RF: 1 docusate sodium [Colace] 100 MG capsule 100 mg PO QDAY PRN (Reason: Constipation) RF: 0 ondansetron [Zofran ODT] 4 MG tablet,disintegrating 4 mg Sublingual Q6HP PRN (Reason: Nausea) RF: 0 insulin glargine [Lantus Solostar U-100 Insulin] 100 UNIT/1 ML insulin pen 15 u SQ BID RF: 0 [place] 1 ea miscellaneous DIRECTED RF: 0 Syringes 1 syr miscellaneous DIRECTED RF: 0 sucralfate 100 mg/mL suspension 10 ml PO QID RF: 0 pantoprazole 40 mg tablet,delayed release (DR/EC) 40 mg PO BID RF: 0 imatinib [Gleevec] 100 MG tablet 300 mg PO QPM RF: 0 Discontinued lorazepam 0.5 mg tablet 1 tab PO TID PRN (Reason: Anxiety) RF: 0 Follow up/Referrals: Madalyn Baeza DO [Primary Care Provider] - (appt:01/25 @ 4:15 w/dr baeza [phone]) Provider Discharge Instructions Diet: Diet as Tolerated and Regular Skin/Wound/Dressing Care Report to your healthcare provider any signs of infection, such as:: chills, fever, night sweats, increased pain and unusual drainage Visit Report/Discharge Packet Instructions: DI for Alcohol Abuse, DI for Alcoholic Gastritis Visit Report Forms: Stroke Signs & Symptoms Discharge Data Primary Care Provider: Madalyn Baeza Attending Provider: Kim Bucio Admit Date/Time: 01/19/18 14:57 Discharges patient from system. Discharge Date/Time: 01/22/18 12:45
== END 2018-01-22 12:45 | disposition home or self-care (01) | DRG 392 ==
LOC: ED 14:42 → AC 14:58
PROVIDERS: Admitting Provider Internal Medicine; Emergency Provider Emergency Medicine; Family Provider Family Medicine; PCP Family Medicine; Visit Provider Internal Medicine
DX: K29.70 Gastritis, unspecified, without bleeding (principal); F10.230 Alcohol dependence with withdrawal, uncomplicated; C92.10 Chronic myeloid leukemia, BCR/ABL-positive, not having achieved remission; E11.65 Type 2 diabetes mellitus with hyperglycemia; Z79.4 Long term (current) use of insulin; K21.9 Gastro-esophageal reflux disease without esophagitis; D69.59 Other secondary thrombocytopenia; Z87.891 Personal history of nicotine dependence; D64.9 Anemia, unspecified; E86.0 Dehydration; D69.6 Thrombocytopenia, unspecified; F32.9 Major depressive disorder, single episode, unspecified
CPT/HCPCS: 36415; 36591; 74177; 80053; 80320; 82962; 83605; 83690; 84484; 85025; 85610; 85730; 86850; 86900; 86901; 93005; 96361; 96374; 96375; 96376; 97162; 99285; J1170; J2060; J2405; J3475; Q9967

== ENCOUNTER 2018-02-21 12:21 | Emergency (ER) | payer OTHER, MEDICAID, SELFPAY ==
[2018-01-19 17:50] VITALS: BMI 21.7
[2018-02-21 12:37] VITALS: BP 117/73; PULSE 83; RESP 16; O2SAT 100; BMI 22.4
[2018-02-21 13:57] VITALS: TEMP 36.4
--- NOTE | 2018-02-21 13:58 | ED.SKABFB ---
HPI - Skin/Abscess/Foreign Bdy <Adilene Amato PA-C - Last Filed: 02/21/18 21:28> General Chief complaint: Extremity Injury, Upper Stated complaint: thinks his right shoulder is infected from Flu Kaylie Time Seen by Provider: 02/21/18 13:57 Source: patient and family Mode of arrival: ambulatory Limitations: no limitations History of Present Illness HPI narrative: This 42-year-old male comes in due to concern for right upper extremity infection. He thinks this was caused by flu vaccine that he got about a month ago. He states that he has had pain and difficulty moving the arm since then. Mom states that she had him come in today just due to concern for persistent symptoms. Patient denies any acute changes today. He denies any injury or contusion. He has not followed up with his PCP. He has not had any new redness or fever. Mom also notes that he had a blood blister on his right ft that seems to be getting better, not sure where it came from. Related Data Home Medications Medication Instructions Recorded Confirmed docusate sodium [Colace] 100 mg PO QDAY PRN 10/20/17 02/25/18 [place] 1 ea MISCELLANEOUS DIRECTED 11/10/17 01/31/18 Syringes 1 syr MISCELLANEOUS DIRECTED 11/10/17 01/31/18 insulin glargine [Lantus Solostar 15 u SQ BID 11/10/17 02/25/18 U-100 Insulin] ondansetron [Zofran ODT] 4 mg SUBLINGUAL Q6HP PRN 11/17/17 02/25/18 imatinib [Gleevec] 300 mg PO QPM 12/16/17 02/25/18 Previous Rx's Medication Instructions Recorded insulin lispro [Humalog KwikPen 1 - 12 unit SQ TIDCC #1 ea 03/25/17 Insulin] hydrocortisone acetate [Anusol-HC] 25 mg R BID #14 supp 07/15/17 True Metrix test strips #100 each 08/18/17 escitalopram oxalate 10 mg PO DAILY #30 tab 01/22/18 chlordiazepoxide 25 mg capsule 25 mg PO ONCE #30 cap 01/31/18 pantoprazole 40 mg tablet,delayed 40 mg PO BID #60 tab 01/31/18 release cyclobenzaprine 20 mg PO Q8H PRN #20 tab 02/21/18 Allergies Allergy/AdvReac Type Severity Reaction Status Date / Time Penicillins [PENICILLINS] Allergy Severe Tongue Verified 02/25/18 13:47 swelling, hives adhesive Allergy Unknown PLASTIC Verified 02/25/18 13:47 TAPE latex [LATEX] Allergy Unknown Verified 02/25/18 13:47 Review of Systems <Adilene Amato PA-C - Last Filed: 02/21/18 21:28> Review of Systems All systems reviewed & are unremarkable except as noted in HPI and below Exam <Adilene Amato PA-C - Last Filed: 02/21/18 21:28> Narrative Exam Narrative: GENERAL APPEARANCE: Patient sitting comfortably, in no distress. LUNGS: Clear to auscultation bilaterally. HEART: Rate and rhythm regular without murmur, normal S1 and S2, no S3 or S4. MUSCULOSKELETAL: Right shoulder tender to palpation over the AC joint and anterior shoulder, no tenderness over the superior shoulder or posterior bony prominences or trapezius. Mildly tender over the right deltoid, no tenderness over the anterior musculature. Positive impingement sign with forced shoulder abduction. Reduced range of motion throughout secondary to tenderness. Normal range of motion in the elbow, wrist, and hand DERMATOLOGIC: No erythema or effusion over the right shoulder. Calloused small patches of eschar noted on the R. inferiorlateral foot proximal to the 5th toe NEUROVASCULAR: Sensation is grossly intact in the extremities, warm and pink Initial Vital Signs Initial Vital Signs: Vital Signs Pulse Rate 83 02/21/18 12:37 Respiratory Rate 16 02/21/18 12:37 Blood Pressure 117/73 02/21/18 12:37 Pulse Oximetry 100 02/21/18 12:37 <Lvaon Gomez DO - Last Filed: 02/28/18 18:52> Initial Vital Signs Initial Vital Signs: Vital Signs Pulse Rate 83 02/21/18 12:37 Respiratory Rate 16 02/21/18 12:37 Blood Pressure 117/73 02/21/18 12:37 Pulse Oximetry 100 02/21/18 12:37 Course <MAGALI Damon Last Filed: 02/21/18 21:28> Additional Information: The patient preferred to discharge home and follow up with his PCP. Discharge instructions were written, however follow-up was not available with his PCP until next week. Patient and his mom then decided they would prefer to get x-ray and try a muscle relaxant. X-ray findings reviewed. Patient continues to hold his shoulder at his side but is moving the remainder of his upper extremity. Explained my concern for frozen shoulder since he says this has been going on for a month. Review gentle hozva-uq-[id number] exercises such as pendulum and while walking. We did increase his muscle relaxant, and advised to work on exercises. He is not sure whether he can take anti-inflammatories, so will try this and Tylenol, and advised he will likely need therapy and may need further testing. Orders Ordered: Discontinued Medications Acetaminophen (Tylenol) 650 mg PO NOW ONE Stop: 02/21/18 16:03 Last Admin: 02/21/18 16:05 Dose: 650 mg Cyclobenzaprine HCl (Flexeril) 10 mg PO NOW ONE Stop: 02/21/18 14:54 Last Admin: 02/21/18 15:00 Dose: 10 mg Cyclobenzaprine HCl (Flexeril) 10 mg PO NOW ONE Stop: 02/21/18 16:03 Last Admin: 02/21/18 16:05 Dose: 10 mg Vital Signs - 8 hr 02/21/18 13:57 02/21/18 16:16 Temperature 97.6 F Pulse Rate 68 Respiratory Rate 16 Blood Pressure 101/72 Pulse Oximetry 100 <Lavon Gomez DO - Last Filed: 02/28/18 18:52> Orders Ordered: Discontinued Medications Acetaminophen (Tylenol) 650 mg PO NOW ONE Stop: 02/21/18 16:03 Last Admin: 02/21/18 16:05 Dose: 650 mg Cyclobenzaprine HCl (Flexeril) 10 mg PO NOW ONE Stop: 02/21/18 14:54 Last Admin: 02/21/18 15:00 Dose: 10 mg Cyclobenzaprine HCl (Flexeril) 10 mg PO NOW ONE Stop: 02/21/18 16:03 Last Admin: 02/21/18 16:05 Dose: 10 mg Vital Signs - 8 hr 02/21/18 13:57 02/21/18 16:16 Temperature 97.6 F Pulse Rate 68 Respiratory Rate 16 Blood Pressure 101/72 Pulse Oximetry 100 MDM - Skin/Abscess/Foreign Bdy <Adilene Amato PA-C - Last Filed: 02/21/18 21:28> Imaging Data shoulder: Radiologist's impression: [address] [address] XRay Report Signed Patient: Lalo Han CMR#: [id number] : 1975Acct:[id number] Age/Sex: 42 / MDate of Service: 02/21/18 Loc: ED Accession Number: [id number] Procedure: XR shoulder RT min 2V Ordering Provider: Adilene Amato P.A-C PROCEDURE: XR SHOULDER RT MIN 2V INDICATIONS: right shoulder pain TECHNIQUE: 3 views of the shoulder were acquired. COMPARISON: [facility], CT, CT ANGIO CHEST PE, 11/14/2017, 14:08. FINDINGS: Bones: No fractures or dislocations. No suspicious bony lesions. Visualized ribs appear intact. There is lower cervical spine fusion. Soft tissues: No suspicious soft tissue calcifications. IMPRESSION: No fracture or dislocation. Dictated by: Darby Infante M.D. on 02/21/2018 at 15:31 Approved by: Darby Infante M.D. on 02/21/2018 at 15:34 Discharge Plan Departure Patient Disposition: Home Clinical Impression: Right shoulder tendinitis Discharge Date/Time: 02/21/18 16:15 Interventions: ED Discharge Assessment Last Done: 02/21/18 16:16 Instructions: DI for Shoulder Tendinopathy Activity Restrictions/Additional Instructions: The area where you had your flu vaccine does not appear infected, and you appear to be more sore over the area where your shoulder joint and collarbone connect, called the AC joint. Your xray did not show a problem with the bones. I think you have an inflamed tendon there. Please try to gently mobilize your shoulder to keep the joint moving. Do the pendulum and wall walking exercises that we talked about at least several times daily. You can use ice, heat, topical pain relievers such as [place] or for percent lidocaine patches to help with pain, and any pain medicines that usually take at home. (Try Tylenol for now since you need to check on whether you can take any NSAIDs). You can use the muscle relaxant as needed, but remember it can make you sleepy. Talk with your primary care provider about whether a referral for physical therapy may be helpful, or an injection. Please return if you have any acutely worsening symptoms. Also please recheck the spots on your feet with your PCP. They are callused so likely they have been there for some time and okay to monitor for now since you think they are getting better. We did make you a follow-up appointment with your PCP on 02/28 at 4:15 p.m., however they advised that you can also be seen any time in the walk-in clinic sooner if needed. Prescriptions: New cyclobenzaprine 10 mg tablet 20 mg PO Q8H PRN (Reason: muscle spasm/tightness) Qty: 20 RF: 0 No Action chlordiazepoxide HCl 25 mg capsule 25 mg PO ONCE Qty: 30 RF: 0 pantoprazole 40 mg tablet,delayed release (DR/EC) 40 mg PO BID Qty: 60 RF: 2 insulin lispro [Humalog KwikPen Insulin] 100 UNIT/1 ML insulin pen 1 - 12 unit SQ TIDCC Qty: 1 RF: 3 hydrocortisone acetate [Anusol-HC] 25 MG suppository 25 mg R BID Qty: 14 RF: 0 True Metrix test strips Qty: 100 RF: 1 docusate sodium [Colace] 100 MG capsule 100 mg PO QDAY PRN (Reason: Constipation) RF: 0 ondansetron [Zofran ODT] 4 MG tablet,disintegrating 4 mg Sublingual Q6HP PRN (Reason: Nausea) RF: 0 insulin glargine [Lantus Solostar U-100 Insulin] 100 UNIT/1 ML insulin pen 15 u SQ BID RF: 0 [place] 1 ea miscellaneous DIRECTED RF: 0 Syringes 1 syr miscellaneous DIRECTED RF: 0 imatinib [Gleevec] 100 MG tablet 300 mg PO QPM RF: 0 escitalopram oxalate 20 mg tablet 10 mg PO DAILY Qty: 30 RF: 8 Referrals: Madalyn Willingham DO [Primary Care Provider] - <Lavon Gomez DO - Last Filed: 02/28/18 18:52> Cosign ED Attending Donato Attestation: I was immediately available in the department for consultation. Documentation has been reviewed. I agree with assessment and plan.
--- NOTE | 2018-02-21 14:53 | DI.RAD.S_ITS ---
PROCEDURE: XR SHOULDER RT MIN 2V INDICATIONS: right shoulder pain TECHNIQUE: 3 views of the shoulder were acquired. COMPARISON: [facility], CT, CT ANGIO CHEST PE, 11/14/2017, 14:08. FINDINGS: Bones: No fractures or dislocations. No suspicious bony lesions. Visualized ribs appear intact. There is lower cervical spine fusion. Soft tissues: No suspicious soft tissue calcifications. IMPRESSION: No fracture or dislocation. Dictated by: Darby Infante M.D. on 02/21/2018 at 15:31 Approved by: Darby Infante M.D. on 02/21/2018 at 15:34
[2018-02-21] MEDS: CYCLOBENZAPRINE 10 MG TABLET PO ×2 (15:00→16:05)
[2018-02-21] MEDS: ACETAMINOPHEN 325 MG TABLET 650 MG PO (16:05)
[2018-02-21 16:16] VITALS: BP 101/72; PULSE 68; RESP 16; O2SAT 100
== END 2018-02-21 16:15 | disposition home or self-care (01) ==
PROVIDERS: Emergency Provider Internal Medicine; Family Provider Family Medicine; PCP Family Medicine
DX: M75.81 Other shoulder lesions, right shoulder (principal)
CPT/HCPCS: 73030; 99282; 99283

== ENCOUNTER → 2018-03-28 13:16 | Outpatient (CLI) | payer OTHER, MEDICAID, SELFPAY ==
[2018-01-19 17:50] VITALS: BMI 21.7
[2018-03-28 14:11] LABS: Add Manual Diff / Slide Review NO; Basophils Percent Auto 0.3 % (0-2); Eosinophils Percent Auto 1.3 % (2-4); Hematocrit 35.9 % (41-53); Hemoglobin 11.9 g/dL (13.5-17.5); Lymphocytes Percent Auto 19.8 % (25-40); Mean Corpuscular HGB Conc 33.2 % (30-36); Mean Corpuscular Hemoglobin 31.8 PG (26-34); Mean Corpuscular Volume 95.9 fL (80-100); Monocytes Percent Auto 8.1 % (3-14); Neutrophils Absolute Auto 2300 /uL (1500-7000); Neutrophils Percent Auto 70.5 % (50-75); Platelet Count 59 X10^3/uL (150-400); Red Blood Cell Count 3.74 X10^6/uL (4.5-5.9); Red Cell Distribution Width 16.7 % (11.6-14.8); White Blood Cell Count 3.2 X10^3/uL (4.5-11.0)
[2018-03-28 14:45] LABS: Alanine Aminotransferase 28 IU/L (21-72); Albumin 4.4 g/dL (3.5-5.0); Albumin Globulin Ratio 1.5 (1.0-2.8); Alkaline Phosphatase 98 U/L (38-126); Aspartate Aminotransferase 47 IU/L (17-59); Bilirubin Total 0.6 mg/dL (0.2-1.3); Blood Urea Nitrogen 11 mg/dL (9-20); Calcium 8.8 mg/dL (8.4-10.2); Carbon Dioxide 24 mmol/L (22-32); Chloride 103 mmol/L (98-107); Estimated Glomerular Filt Rate > 60.0 mL/min (>60); Globulin 2.9 g/dL (1.7-4.1); Glucose 212 mg/dL (70-100); HEMOLYSIS < 15 (0-50); Potassium 4.1 mmol/L (3.4-5.1); Sodium 144 mmol/L (137-145); Total Protein 7.3 g/dL (6.3-8.2)
[2018-04-06 12:53] LABS: Miscellaneous to Univ of WA SEE SEPERATE REPORT
== END ==
PROVIDERS: Family Provider Family Medicine; PCP Family Medicine
DX: C92.10 Chronic myeloid leukemia, BCR/ABL-positive, not having achieved remission (principal)
CPT/HCPCS: 36415; 80053; 81206; 85025

== ENCOUNTER → 2018-05-02 09:19 | Outpatient (CLI) | payer OTHER, MEDICAID, SELFPAY ==
[2018-01-19 17:50] VITALS: BMI 21.7
[2018-05-02 09:30] LABS: Add Manual Diff / Slide Review NO; Basophils Absolute Auto 0 /uL (0-100); Basophils Percent Auto 0.6 % (0-2); Eosinophils Absolute Auto 0 /uL (0-450); Eosinophils Percent Auto 1.4 % (2-4); Hemoglobin 13.6 g/dL (13.5-17.5); Lymphocytes Absolute Auto 800 /uL (1100-4500); Lymphocytes Percent Auto 24.6 % (25-40); Mean Corpuscular HGB Conc 33.3 % (30-36); Mean Corpuscular Hemoglobin 33.9 PG (26-34); Mean Corpuscular Volume 101.8 fL (80-100); Monocytes Absolute Auto 300 /uL (0-900); Monocytes Percent Auto 9.1 % (3-14); Neutrophils Absolute Auto 2100 /uL (1500-7000); Neutrophils Percent Auto 64.3 % (50-75); Platelet Count 47 X10^3/uL (150-400); Red Blood Cell Count 4.03 X10^6/uL (4.5-5.9); Red Cell Distribution Width 16.4 % (11.6-14.8); White Blood Cell Count 3.3 X10^3/uL (4.5-11.0)
[2018-05-02 11:21] LABS: Erythrocyte Sedimentation Rate 9 MM/HR (0-15)
== END ==
PROVIDERS: PCP Family Medicine; Visit Provider Family Medicine
DX: M25.511 Pain in right shoulder (principal)
CPT/HCPCS: 36415; 85025; 85651

== ENCOUNTER 2018-05-08 07:27 | Inpatient (IN) | payer OTHER, MEDICAID, SELFPAY ==
[2018-01-19 17:50] VITALS: BMI 21.7
[2018-05-08] VITALS (17 sets, daily range): BP systolic 122–156; BP diastolic 72–98; PULSE 64–86; RESP 15–20; TEMP 36.9–37.7; O2SAT 97–100; BMI 21.7; BMI 20.6
--- NOTE | 2018-05-08 | DI.US.S_ITS ---
PROCEDURE: US ABDOMEN COMPLETE INDICATIONS: PAIN; ELEVATED LFTS TECHNIQUE: Real-time scanning was performed of the abdominal and retroperitoneal organs, with image documentation. COMPARISON: [facility], US, ABDOMEN COMPLETE, 01/12/2017, 17:39. FINDINGS: Liver: The liver demonstrates normal size. The liver demonstrates generalized increased echogenicity. This decreases ultrasound sensitivity for detection of hepatic masses. Gallbladder: Several gallstones are seen, including a gallstone apparently lodged at the gallbladder neck measuring 7 mm. The gallbladder wall is not thickened, measuring 3 mm or less. No specific pericholecystic fluid is seen. The sonographic Sidhu sign is negative. Biliary ducts: Intrahepatic bile ducts are non-dilated. Extrahepatic bile duct caliber measures 6 mm. Normal is 6-7 mm or less in diameter, or 10 mm or less post-cholecystectomy. Pancreas: Not seen, obscured by overlying bowel gas. Spleen: The spleen measures within upper limits of normal at 13 cm. Kidneys: Kidneys are normal in size and echotexture. Right kidney measures 12 cm long; left kidney measures 9.4 cm long. No hydronephrosis or nephrolithiasis. No solid masses. Aorta: Not seen, obscured by overlying bowel gas. Iliacs: Not seen, obscured by overlying bowel gas. IVC: Not seen, obscured by overlying bowel gas. Miscellaneous: No free abdominal fluid. IMPRESSION: Gallstones are seen, yet without additional sonographic signs of cholecystitis. No biliary dilatation. The spleen measures at the upper limits of normal at 13 cm. The liver demonstrates increased echogenicity. This finding is nonspecific, yet it is most commonly attributed to fatty infiltration. Study limited by bowel gas, without visualization of the pancreas, aorta, common iliac arteries, or IVC. Dictated by: Hector Lai M.D. on 05/09/2018 at 8:43 Approved by: Hector Lai M.D. on 05/09/2018 at 8:45
--- NOTE | 2018-05-08 07:39 | ED.GENADULT ---
HPI - General Adult General Chief complaint: Abdominal Pain Stated complaint: stomach pain, unable to eat for a week, vomiting Time Seen by Provider: 05/08/18 07:33 Source: patient Mode of arrival: ambulatory Limitations: no limitations History of Present Illness HPI narrative: 42-year-old male with a history of CML who is currently undergoing treatment but has not taken his medicines over the past couple days because of his vomiting. I saw him here in the emergency department in January of last year for alcohol withdrawal. Admitted into the hospital. He states that after that admission went 4months without drinking however has not been 4 months since that admission and he told me that he started drinking at the end of February. He states that since the end of February he has been drinking every day. He states he does not drink to get drunk just to maintain he states his last drink was last night at approximately 0800 hr. He states he has been trying to stop drinking over the past week. Has had nausea and abdominal pain. No seizures however he has had seizures in the past due to alcohol withdrawal. He did have 1 episode where he passed out and fell however has no injuries except for bruising on his abdomen. He has been checking his blood sugar at home. Has not been taking his insulin because he states that his blood sugars been low because he has not been eating. Has been just maintaining himself on boost meal supplements. Related Data Home Medications Medication Instructions Recorded Confirmed [place] 1 ea MISCELLANEOUS DIRECTED 11/10/17 05/02/18 Syringes 1 syr MISCELLANEOUS DIRECTED 11/10/17 05/02/18 imatinib [Gleevec] 300 mg PO QPM 12/16/17 05/02/18 [facility] 04/06/18 05/02/18 True Metrix test strips 0 .ROUTE .MEDSUPPLY 04/06/18 05/02/18 Previous Rx's Medication Instructions Recorded insulin lispro [Humalog KwikPen 1 - 12 unit SQ TIDCC #1 ea 03/25/17 Insulin] insulin glargine (U-100) 100 20 unit SUBCUT BID #15 ml 03/01/18 unit/mL (3 mL) subcutaneous pen Allergies Allergy/AdvReac Type Severity Reaction Status Date / Time Penicillins [PENICILLINS] Allergy Severe Tongue Verified 05/02/18 08:50 swelling, hives adhesive Allergy Unknown PLASTIC Verified 05/02/18 08:50 TAPE latex [LATEX] Allergy Unknown Verified 05/02/18 08:50 Review of Systems Constitutional Reports fatigue, Denies fever(s), Reports lethargy and Reports malaise ENT Ears, Nose, Mouth, and Throat: Reports dizziness and Reports disequilibrium Cardiovascular Denies chest pain and Denies dyspnea Respiratory Denies dyspnea Gastrointestinal Gastrointestinal: Reports abdominal pain, Denies change in bowel habits, Reports nausea and Reports vomiting Genitourinary Denies dysuria Musculoskeletal Denies myalgias, Reports arthralgias (Shoulder pain) and Denies numbness Integumentary/Breasts Comments: Bruise on his abdomen Neurologic Denies confusion, Reports dizziness, Reports lack of coordination, Denies memory loss, Denies numbness, Reports restless legs, Denies seizure-like activity, Reports paresthesias and Reports disequilibrium Psychiatric Reports anxiety, Denies confusion, Reports irritability, Denies memory loss, Denies homicidal ideation and Denies suicidal ideation Endocrine Reports fatigue Hematologic/Lymphatic Denies easy bleeding and Denies easy bruising [facility] Social History household members: none Smoking Status: Former smoker alcohol intake: current Exam Initial Vital Signs Initial Vital Signs: Vital Signs Temperature 98.4 F 05/08/18 07:36 Pulse Rate 83 05/08/18 07:36 Respiratory Rate 16 05/08/18 07:36 Blood Pressure 156/96 H 05/08/18 07:36 Pulse Oximetry 97 05/08/18 07:36 Const General: cooperative, No comfortable (Uncomfortable), well developed, anxious, No combative, disheveled, No intoxicated appearing and No lethargic Orientation: alert, awake and oriented x3 HENME Head: normal to inspection and normocephalic Resp Effort & Inspection: normal respiratory effort Auscultation: clear to auscultation bilaterally Cardio Rate: regular rate Rhythm: regular rhythm GI Inspection: non-distended Palpation: soft, No firm and No tender Back/Spine/Pelvis Back: No CVA tenderness Cervical Spine: No cervical spinal tenderness Skin Other: Bruise over his right lower abdomen that is nontender to palpation Neuro General: alert, awake and oriented x3 Cognition: normal cognition Motor: muscle tone normal throughout Sensory Exam: no sensory deficits noted Extrem General: normal to inspection and capillary refill normal Psych Appearance: disheveled Speech and Movement: not agitated and restless Mood: No angry Affect: No hostile and No irritable affect Attitude: cooperative Thought Process: normal Course Orders Ordered: ED Orders 05/08/18 07:45 Acetaminophen Stat Complete Blood Count AUTO DIFF Stat Comprehensive Metabolic Panel Stat Ethanol (ETOH) Stat Ketones (Beta-Hydroxybutyrate) Stat Lipase Stat Magnesium Stat Phosphorous Stat Salicylate Stat 05/08/18 07:52 Urine Drug Screen, Rapid Stat Magnesium Sulfate 2 gm/ Folic Acid 1 mg/ Thiamine HCl 100 mg / Multivitamins 10 ml/ Sodium Chloride 1,015.2 mls @ 125 mls/hr IV NOW ONE Stop: 05/08/18 15:58 Discontinued Medications Sodium Chloride (Normal Saline 0.9%) 1,000 mls @ 1,000 mls/hr IV BOLUS ONE Stop: 05/08/18 08:38 Last Admin: 05/08/18 07:56 Dose: 1,000 mls/hr Lorazepam (Ativan) 2 mg IV NOW ONE Stop: 05/08/18 07:52 Last Admin: 05/08/18 07:57 Dose: 2 mg Lorazepam (Ativan) 2 mg IV NOW ONE Stop: 05/08/18 08:22 Last Admin: 05/08/18 08:28 Dose: 2 mg Vital Signs - 8 hr 05/08/18 07:36 Temperature 98.4 F Pulse Rate 83 Respiratory Rate 16 Blood Pressure 156/96 H Pulse Oximetry 97 Medical Decision Making Lab Data Result diagrams: 05/08/18 07:45 05/08/18 07:45 Lab Results 05/08/18 05/08/18 Range/Units 07:45 07:45 WBC 4.4 L (4.5-11.0) X10^3/uL RBC 3.91 L (4.5-5.9) X10^6/uL Hgb 13.3 L (13.5-17.5) g/dL Hct 38.5 L (41-53) % MCV 98.4 D (80-100) fL MCH 34.0 (26-34) PG MCHC 34.5 (30-36) % RDW 14.8 (11.6-14.8) % Plt Count 39 L (150-400) X10^3/uL Neut % (Auto) 78.6 H (50-75) % Lymph % (Auto) 13.1 L (25-40) % [place] % (Auto) 7.7 (3-14) % Eos % (Auto) 0.2 L (2-4) % Baso % (Auto) 0.4 (0-2) % Neut # (Auto) 3500 (8035-7606) /uL Lymph # (Auto) 600 L (4600-0608) /uL [place] # (Auto) 300 (0-900) /uL Eos # (Auto) 0 (0-450) /uL Baso # (Auto) 0 (0-100) /uL Platelet Estimate Decreased on smear RBC Morphology See below Rouleaux 1+ H Sodium 136 L (137-145) mmol/L Potassium 3.8 (3.4-5.1) mmol/L Chloride 97 L (98-107) mmol/L Carbon Dioxide 22 (22-32) mmol/L BUN 17 (9-20) mg/dL Creatinine 1.00 (0.66-1.25) mg/dL Estimated GFR > 60.0 (>60) mL/min BUN/Creatinine Ratio 17.0 (6-22) Glucose 298 H (70-100) mg/dL Calcium 9.0 (8.4-10.2) mg/dL Phosphorus 3.8 (2.5-4.5) mg/dL Magnesium 1.9 (1.6-2.3) mg/dL Total Bilirubin 1.1 (0.2-1.3) mg/dL AST 113 H (17-59) IU/L ALT 68 (21-72) IU/L Alkaline Phosphatase 95 (38-126) U/L Total Protein 8.0 (6.3-8.2) g/dL Albumin 4.7 (3.5-5.0) g/dL Globulin 3.3 (1.7-4.1) g/dL Albumin/Globulin Ratio 1.4 (1.0-2.8) Lipase < 10 L (23-300) U/L Salicylates < 1.0 (<20) mg/dL Acetaminophen < 10 L (10-30) ug/mL Ethyl Alcohol 81 mg/dL Ketones 0.85 H (<0.27) mmol/L MDM Narrative Medical decision making narrative: Patient is here for alcohol withdrawal. He is hyperglycemic however do not feel that he is in DKA. He was given fluids here in the emergency department. Was started on a banana bag. Alcohol level was 81 here in the emergency department. He was given multiple doses of Ativan given his tremors. Started on a banana bag. Discussed the case with Dr. Benson with the hospital team who will admit the patient for continued evaluation and treatment. Discussed admission with the patient. He expressed understanding and agreement. Discharge Plan Departure Patient Disposition: Admitted As Inpatient Clinical Impression: Alcohol withdrawal, Diabetes, Leukemia
[2018-05-08] MEDS: SODIUM CHLORIDE 0.9% 1,000 ML 1000 ML IV (07:56)
[2018-05-08] MEDS: LORazepam 2 MG/ML SYRINGE IV ×5 (07:57→22:50)
[2018-05-08 08:00] LABS: Add Manual Diff / Slide Review NO; Basophils Absolute Auto 0 /uL (0-100); Basophils Percent Auto 0.4 % (0-2); Eosinophils Absolute Auto 0 /uL (0-450); Eosinophils Percent Auto 0.2 % (2-4); Hematocrit 38.5 % (41-53); Hemoglobin 13.3 g/dL (13.5-17.5); Lymphocytes Absolute Auto 600 /uL (1100-4500); Lymphocytes Percent Auto 13.1 % (25-40); Mean Corpuscular HGB Conc 34.5 % (30-36); Monocytes Absolute Auto 300 /uL (0-900); Monocytes Percent Auto 7.7 % (3-14); Neutrophils Absolute Auto 3500 /uL (1500-7000); Neutrophils Percent Auto 78.6 % (50-75); Red Blood Cell Count 3.91 X10^6/uL (4.5-5.9); Red Cell Distribution Width 14.8 % (11.6-14.8); White Blood Cell Count 4.4 X10^3/uL (4.5-11.0)
[2018-05-08 08:01] LABS: Mean Corpuscular Volume 98.4 fL (80-100); Platelet Count 39 X10^3/uL (150-400)
[2018-05-08 08:03] LABS: HEMOLYSIS < 15 (0-50)
[2018-05-08 08:08] LABS: Acetaminophen < 10 ug/mL (10-30); Alanine Aminotransferase 68 IU/L (21-72); Albumin 4.7 g/dL (3.5-5.0); Albumin Globulin Ratio 1.4 (1.0-2.8); Alkaline Phosphatase 95 U/L (38-126); Aspartate Aminotransferase 113 IU/L (17-59); Bilirubin Total 1.1 mg/dL (0.2-1.3); Blood Urea Nitrogen 17 mg/dL (9-20); Carbon Dioxide 22 mmol/L (22-32); Chloride 97 mmol/L (98-107); Estimated Glomerular Filt Rate > 60.0 mL/min (>60); Ethanol (ETOH) 81 mg/dL; Globulin 3.3 g/dL (1.7-4.1); Glucose 298 mg/dL (70-100); Magnesium 1.9 mg/dL (1.6-2.3); Phosphorous 3.8 mg/dL (2.5-4.5); Potassium 3.8 mmol/L (3.4-5.1); Sodium 136 mmol/L (137-145)
[2018-05-08 08:15] LABS: Lipase < 10 U/L (23-300); Salicylate < 1.0 mg/dL (<20)
[2018-05-08 08:24] LABS: Platelet Estimate Decreased on smear
[2018-05-08 08:25] LABS: Rouleaux 1+
[2018-05-08 08:26] LABS: Ketones (Beta-Hydroxybutyrate) 0.85 mmol/L (<0.27)
[2018-05-08] MEDS: MAGNESIUM SULFATE 2 GM, FOLIC ACID 1 MG, THIAMINE 100 MG, MULTIVITAMIN 10 ML in SODIUM ... IV (09:01)
--- NOTE | 2018-05-08 09:22 | PM.HP.1 ---
History of Present Illness Date Patient Seen: 05/08/18 Time Patient Seen: 10:03 Chief complaint: stomach pain, unable to eat for a week, vomiting Narrative: This is a 42-year-old male with a history of type 1 insulin-dependent diabetes and alcoholism. He also has CML, currently treated with Gleevec. He is heavily sedated when I see him and so much of the historical details below are reported from the initial ED interview with him. He apparently was able to stop his alcohol intake for extended period time, then returning to his daily alcohol use last February, and then experiencing alcohol withdrawal currently. It is not clear what prompted the alcohol withdrawal, whether it was a decision he made or his other illnesses lead to that. Apparently his last drink was at 8:00 p.m. yesterday and his level today is 81. He says he drinks 6 beers a day. His blood sugars are in the 200-300 range and there are no other laboratory confirmatory signs of DKA. He did not complain of abdominal pain to me but the ICU nurse reports that he did mention abdominal pain to her. His lipase level was normal. There is no abdominal tenderness. His platelets are chronically low most recently 59 but now down to 39. This is thought to be either from bone marrow suppression of alcohol use or his Gleevec use. He has had the CML for 12 years. He initially tells me that he does not have a primary care physician but when I asked who prescribes his insulin he mentions Dr. Willingham. He smokes marijuana but denies smoking cigarettes. 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 Because of his complicated medical issues, including the potential for DKA, he is admitted for alcohol withdrawal treatment. Patient History Medical History Alcoholism (Acute) Thrombocytopenia (Acute) CML (chronic myelocytic leukemia) (Acute) Insulin dependent diabetes mellitus (Acute) Surgical History Status post appendectomy Family & Social History Family History: Reviewed 05/08/18 by Yaneth Benson MD Social History: household members none Safety & Behavioral: Feels Safe in Current Yes Environment Tobacco & Substance use: Smoking Status Former smoker alcohol intake current alcohol intake frequency 3 or more drinks per day Substance Use Type does not use Comment: He falls asleep when I ask him about his Family Medical History Meds Home Medications Medication Instructions Recorded Confirmed Type insulin lispro [Humalog KwikPen 1 - 12 unit SQ TIDCC #1 ea 03/25/17 05/02/18 Rx Insulin] [place] 1 ea MISCELLANEOUS DIRECTED 11/10/17 05/02/18 History Syringes 1 syr MISCELLANEOUS DIRECTED 11/10/17 05/02/18 History imatinib [Gleevec] 300 mg PO QPM 12/16/17 05/02/18 History insulin glargine (U-100) 100 20 unit SUBCUT BID #15 ml 03/01/18 05/02/18 Rx unit/mL (3 mL) subcutaneous pen Medical Daniel 04/06/18 05/02/18 History True Metrix test strips 0 .ROUTE .MEDSUPPLY 04/06/18 05/02/18 History Allergies Allergy/AdvReac Type Severity Reaction Status Date / Time Penicillins [PENICILLINS] Allergy Severe Tongue Verified 05/02/18 08:50 swelling, hives adhesive Allergy Unknown PLASTIC Verified 05/02/18 08:50 TAPE latex [LATEX] Allergy Unknown Verified 05/02/18 08:50 Review of Systems Review of Systems All systems reviewed & are unremarkable except as noted in HPI and below Constitutional Constitutional: Reports malaise and Reports poor appetite Eyes Eyes: Denies double vision ENT Ears, Nose, Mouth, and Throat: No difficulty swallowing and No throat swelling Cardiovascular Cardiovascular: Denies chest pain, Denies chest pain at rest and Denies shortness of breath with activity Respiratory Respiratory: Denies cough and Denies dyspnea on exertion Gastrointestinal Gastrointestinal: Reports abdominal pain and Denies dysphagia Genitourinary Genitourinary: Denies urinary frequency Musculoskeletal Musculoskeletal: Denies arthralgias Neurologic Neurologic: Denies abnormal movements and Denies behavioral changes Psychiatric Psychiatric: Denies behavioral changes Hematologic/Lymphatic Hematologic/Lymphatic: Denies easy bleeding Allergic/Immunologic Allergic/Immunologic: Denies throat swelling Exam Vital Signs (past 8 hours): - 05/08/18 07:36 Temperature 98.4 F Pulse Rate 83 Respiratory Rate 16 Blood Pressure 156/96 H Pulse Oximetry 97 Oxygen Delivery Method Room Air Narrative Exam Narrative: He is oriented x3 but falls asleep in the middle of sentences as he is trying to answer questions and then eventually just stops trying. He has been recently sedated with high-dose lorazepam due to severe tremors. There is no other apparent distress and he does not mention abdominal pain to me. Pupils are equally round and reactive to light and accommodation. Extraocular muscles are intact. Sclerae are pink and nonicteric. There are no lymph nodes felt head, neck, supraclavicular area. There is no thyromegaly. There is no JVD increase. There is no carotid bruits heard. Heart is regular rate and rhythm without murmur. Lungs clear to auscultation bilaterally. Abdomen is soft, bowel sounds positive, nontender, no organomegaly. Extremities have no ankle edema. Neuro. Cranial nerves 2-12 tested intact. Motor function is 5/5 throughout. He does have a resting tremor without asterixis. Deep tendon reflexes are symmetrically normal. Skin no rash, jaundice, petechia. Objective Labs Result Diagrams: 05/08/18 07:45 05/08/18 07:45 Labs: Laboratory Results - last 24 hr 05/08/18 05/08/18 07:45 07:45 WBC 4.4 L RBC 3.91 L Hgb 13.3 L Hct 38.5 L MCV 98.4 D MCH 34.0 MCHC 34.5 RDW 14.8 Plt Count 39 L Neut % (Auto) 78.6 H Lymph % (Auto) 13.1 L [place] % (Auto) 7.7 Eos % (Auto) 0.2 L Baso % (Auto) 0.4 Neut # (Auto) 3500 Lymph # (Auto) 600 L [place] # (Auto) 300 Eos # (Auto) 0 Baso # (Auto) 0 Platelet Estimate Decreased on smear RBC Morphology See below Rouleaux 1+ H Sodium 136 L Potassium 3.8 Chloride 97 L Carbon Dioxide 22 BUN 17 Creatinine 1.00 Estimated GFR > 60.0 BUN/Creatinine Ratio 17.0 Glucose 298 H Calcium 9.0 Phosphorus 3.8 Magnesium 1.9 Total Bilirubin 1.1 AST 113 H ALT 68 Alkaline Phosphatase 95 Total Protein 8.0 Albumin 4.7 Globulin 3.3 Albumin/Globulin Ratio 1.4 Lipase < 10 L Salicylates < 1.0 Acetaminophen < 10 L Ethyl Alcohol 81 Ketones 0.85 H Assessment & Plan (1) Alcohol withdrawal: Problem details: Admit to ICU on CIWA protocol with Benzodiazepine use for withdrawal symptoms and Protonix for Abdominal Pain. Continue Folate, MVT, Thiamine. Repeat CBC and CMP in the morning. Qualifiers: Complication of substance-induced condition: with unspecified complication Qualified Code(s): F10.239 - Alcohol dependence with withdrawal, unspecified Current visit: Yes Status: Acute (2) Leukemia: Problem details: His platelets are quite low. His Oncologist is Dr. Camarena. Follow CBC daily. Qualifiers: Leukemia Active/Remission status: without remission Leukemia type: unspecified Lymphoid leukemia type: Monocytic leukemia type: Myeloid leukemia type: Qualified Code(s): C95.90 - Leukemia, unspecified not having achieved remission Current visit: No Status: Acute (3) Thrombocytopenia: Problem details: Related to alcoholic marrow suppression or the Gleevec Current visit: Yes Status: Acute (4) CML (chronic myelocytic leukemia): Problem details: 42-year-old man with longstanding history of CML. He is on Gleevec at 300 mg daily. His CBC has changed with a white count up to 4.4, hemoglobin of 13[place] [address]. He attends with Dr. Camarena. Current visit: Yes Status: Acute (5) Chronic low back pain: Current visit: Yes Status: Acute (6) Drug-induced low platelet count: Problem details: Follow daily Current visit: Yes Status: Acute (7) Alcoholism: Problem details: Encourage participation in an Alcohol dependency program at the time of discharge. Current visit: Yes Status: Acute (8) CML (chronic myelocytic leukemia): Problem details: per Dr. Camarena Current visit: No Status: Acute (9) Insulin dependent diabetes mellitus: Problem details: No signs of DKA. Continue Lantus BID and prn correctional scale Novolog. Current visit: No Status: Acute (10) Thrombocytopenia: Current visit: Yes Status: Acute (11) Abdominal pain: Problem details: Begin Protonix and check abdominal ultrasound. Follow liver function test and white count. Current visit: Yes Status: Acute (12) Alcoholic cirrhosis: Problem details: Follow liver function tests and order abdominal ultrasound. Current visit: Yes Status: Acute
[2018-05-08] MEDS: LORazepam 2 MG/ML SYRINGE 1 MG IV ×2 (11:24→13:03)
[2018-05-08] MEDS: ENOXAPARIN 40 MG/0.4 ML SYRINGE SUBCUT (13:02)
[2018-05-08] MEDS: ONDANSETRON 4 MG/2 ML INJ IV (13:03)
[2018-05-08] MEDS: cloNIDine 0.1 MG TABLET PO ×2 (13:04→19:09)
[2018-05-08] MEDS: INSULIN ASPART 100 UNIT/ML INSULN PEN SUBCUT ×2 (13:05→21:26)
[2018-05-08] MEDS: PANTOPRAZOLE 40 MG VIAL IV (13:06)
--- NOTE | 2018-05-08 14:41 | PC.ADMIT ---
[id number] Admission Note: The patient,Lalo Han,42 y/o, was given written information regarding hospital policies, unit procedures and contact persons. Patient's smoking status: Former smoker. Vital Signs - 8 hr 05/08/18 07:36 05/08/18 09:11 05/08/18 10:11 Temperature 98.4 F Pulse Rate 83 79 78 Respiratory Rate 16 17 18 Blood Pressure 156/96 H Blood Pressure [Left Arm] 122/77 125/84 Pulse Oximetry 97 97 98 05/08/18 10:40 05/08/18 11:00 05/08/18 13:04 Temperature 100 F H Pulse Rate 86 79 80 Respiratory Rate 20 16 Blood Pressure 128/89 130/87 Blood Pressure [Left Arm] 135/82 Pulse Oximetry 98 97 05/08/18 14:00 Temperature Pulse Rate 79 Respiratory Rate 20 Blood Pressure 130/72 Blood Pressure [Left Arm] Pulse Oximetry 97 1100- Rec'd pt from ED via stretcher with banana bag infusing. Pt is Ox3 but drowsy with mild to moderate tremors of BUE noted. Assessed CIWA 9. Reports 7/10 abd pain that is generalized and worse on palpation. He is asking for something to drink and requesting ativan. Oriented to room and ICU routine. Educated to fall risk and instructed on use of call light. Pt agrees to use call light and wait for assistance before getting OOB. 1200- Spoke with Dr. Benson. Reported pt c/o abd pain, requesting something to drink, requested clarification of orders for lovenox with platelets of 39. Dr. Benson orders diet, sliding scale novolog, abd US, and instructs to administer the lovenox as ordered. VORB to start protonix first dose now. 1300- Pt uses call light and reports having an attack. Pt reports he is having an anxiety attack, requesting ativan. CIWA 9. Administered 1 mg IV PRN per order along with clonidine and also zofran for c/o mild nausea. Educated to lovenox. Pt verbalizes understanding and accepts sub q lovenox. After PRNs, pt was able to rest comfortably with eyes closed and even/unlabored RR. Call light in reach, bed alarm, frequent rounds.
[2018-05-08] MEDS: SODIUM CHLORIDE 0.9% 1,000 ML 100 ML IV (17:29)
--- NOTE | 2018-05-08 18:45 | PC.NURSE ---
1730- Patient unable to eat dinner due to nausea. Patient having visable tremors. Ciwaa 15 medicated per protocol. Will monitor.
[2018-05-08 20:44] LABS: INR 1.1 (0.9-1.3); Prothrombin Time 12.2 SECONDS (10.1-12.7)
[2018-05-08 20:47] LABS: PTT Partial Thromboplastin Tim 32 SECONDS (26.4-36.2)
[2018-05-08 21:06] LABS: Procalcitonin 0.06 ng/mL (<0.5)
[2018-05-08] MEDS: INSULIN GLARGINE 100 UNIT/ML 3ML PEN 20 UNIT SUBCUT (21:26)
[2018-05-09] VITALS (25 sets, daily range): BP systolic 90–137; BP diastolic 54–96; PULSE 60–86; RESP 13–26; TEMP 36.6–37.2; O2SAT 98–100
[2018-05-09] MEDS: LORazepam 2 MG/ML SYRINGE IV ×10 (00:30→23:21)
[2018-05-09] MEDS: ONDANSETRON 4 MG/2 ML INJ IV ×2 (01:34→08:00)
--- NOTE | 2018-05-09 01:51 | PC.NURSE ---
Addendum entered by Melissa Adams R.N. 05/09/18 06:13: CBG rechecked at 0300 = 192, then 140 with am lab draw. Patient denies nausea. Continue with IV Ativan for CIWA >8, c/o seeing and hearing things, 2mg IV Haldol given x1 per prn order. VSS. Original Note: 0035-Patient alert, oriented, and says I'm having an attack again CIWA 17 for modearate anxiety, tremors, agitation, and diaphoresis, 2mg IV Ativan given per protocol. 0130-Patient woke, using call light states I feel like I'm going to pass out. My blood sugar is low. CBG checked, 42. Since patient is awake, alert, and can take PO, approximately 600ml orange juice given per his request along with 1/2 egg salad sandwich, rechecked CBG to be 121 at 0150, IV Zofran given also, VSS, says he feels better. Will monitor.
[2018-05-09] MEDS: SODIUM CHLORIDE 0.9% 1,000 ML 100 ML IV ×3 (03:24→23:22)
[2018-05-09 05:08] LABS: Add Manual Diff / Slide Review NO; Basophils Absolute Auto 0 /uL (0-100); Basophils Percent Auto 0.4 % (0-2); Eosinophils Absolute Auto 0 /uL (0-450); Eosinophils Percent Auto 0.7 % (2-4); Hematocrit 33.5 % (41-53); Hemoglobin 11.7 g/dL (13.5-17.5); Lymphocytes Absolute Auto 900 /uL (1100-4500); Lymphocytes Percent Auto 23.9 % (25-40); Mean Corpuscular HGB Conc 34.9 % (30-36); Mean Corpuscular Hemoglobin 34.4 PG (26-34); Mean Corpuscular Volume 98.5 fL (80-100); Monocytes Absolute Auto 400 /uL (0-900); Monocytes Percent Auto 9.8 % (3-14); Neutrophils Absolute Auto 2300 /uL (1500-7000); Neutrophils Percent Auto 65.2 % (50-75); Red Cell Distribution Width 14.7 % (11.6-14.8); White Blood Cell Count 3.6 X10^3/uL (4.5-11.0)
[2018-05-09 05:11] LABS: Alanine Aminotransferase 46 IU/L (21-72); Albumin 3.7 g/dL (3.5-5.0); Albumin Globulin Ratio 1.2 (1.0-2.8); Alkaline Phosphatase 71 U/L (38-126); Aspartate Aminotransferase 66 IU/L (17-59); BUN Creatinine Ratio 22.2 (6-22); Blood Urea Nitrogen 20 mg/dL (9-20); Calcium 8.3 mg/dL (8.4-10.2); Carbon Dioxide 23 mmol/L (22-32); Chloride 104 mmol/L (98-107); Estimated Glomerular Filt Rate > 60.0 mL/min (>60); Glucose 140 mg/dL (70-100); HEMOLYSIS < 15 (0-50); Magnesium 2.1 mg/dL (1.6-2.3); Potassium 3.6 mmol/L (3.4-5.1); Sodium 137 mmol/L (137-145); Total Protein 6.7 g/dL (6.3-8.2)
[2018-05-09] MEDS: HALOPERIDOL 5 MG/ML VIAL 2 MG IV ×3 (05:14→12:22)
[2018-05-09 05:42] LABS: Platelet Count 32 X10^3/uL (150-400)
[2018-05-09 05:49] LABS: RBC Morphology Normal Morphology
[2018-05-09 05:51] LABS: Platelet Estimate DECREASED ON SMEAR
[2018-05-09] MEDS: THIAMINE 100 MG TABLET PO (08:00)
[2018-05-09] MEDS: FOLIC ACID 1 MG TABLET PO (08:00)
[2018-05-09] MEDS: MULTIVITAMIN 1 TABLET 1 TAB PO (08:00)
[2018-05-09] MEDS: PANTOPRAZOLE 40 MG VIAL IV (08:00)
[2018-05-09] MEDS: cloNIDine 0.1 MG TABLET PO ×3 (08:01→16:07)
--- NOTE | 2018-05-09 08:34 | PC.NURSE ---
Addendum entered by Yariel Guzman R.N. 05/09/18 14:36: Pt able to rest until 1415. Used call light. Reported doran are melting. Dr. Cruz on rounds at bedside. Reported symptoms, CIWA scored, meds given. Clarified lovenox with platelets 32. Reported BG. Clarified lantus. Orders received to change lantus to 10 units BID first dose tonight and to hold lovenox for now and await instruction. Original Note: Addendum entered by Yariel Guzman R.N. 05/09/18 12:01: 0840- Pt uses call light, reports hallucinations, requests the other stuff. Reports shadows and bugs are worse now more than than ever and are disturbing/scary. Administered haldol per order. After, pt able to rest comfortably. US tech at bedside for imaging. After completion of US, pt is able to rest intermittently waking up and using call light reporting hallucinations to other staff members but then noted to be sleeping upon this RNs assessment just minutes later. Pt awakens for lunch. Reports he is much worse now than before. Oriented x3. Minimally diaphoretic. CBG 64. Reports critters and bugs that he is trying to get away from. Administered ativan per CIWA protocol and PRN clonidine. Pt fed himself lunch. After lunch, pt states Eating lunch made me paranoid. Provided reorientation and emotional support. Pt was able to calm. Will monitor for effect of PRN ativan. Bed alarm/call light/seizure pads. Original Note: Pt slept until about 0800 at which time he awoke, used call light, and reported having an attack. Reports bugs on the doran, headache, nausea, and anxiety. He is observed to be fidgety, tremulous, and sweaty. He acknowledges that the hallucinations he is experiencing are not real and is able to tell me his name, today's date, location, and situation. He reports generalized achy/crampy pain to abd x4 quadrants worse to palpation. Assessed BG at 48. Pt was able to drink 8 oz of orange juice but continues to have symptoms so administered PRN ativan per protocol along with scheduled meds and PRN clonidine. Pt was able to sit up in bed and feed self 85% of breakfast. After eating, BG checked and was 148. Pt states, I shouldn't have eaten. It made everything worse. Reports that hallucinations are worse and on top of seeing bugs on the doran, scary shadows are present. I'm falling off the deep end. Provided reassurance and reality orientation to pt and administered PRN ativan per protocol. Will reevaluate and assess need for haldol. Seizure pads/precautions, bed alarm, curtain opened.
--- NOTE | 2018-05-09 15:44 | P.PN_ITS ---
Subjective Date Patient Seen: 05/09/18 Interval history: Lalo Han is a 42-year-old male with a past medical history significant for alcohol use disorder, diabetes mellitus type 1, and 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 The patient was stable overnight. Early this morning the patient had an episode of hypoglcemia (40's) for which he was symptomatic (diaphoresis and tremulousness) and was given food with resolution. The patient is sleeping today in bed when I entered the room. CIWA scores have been low teens and seem to be more subjective than overtly objective. The patient continues to report the doran are melting and reports he doesn't know where he is at but then can tell me place and date. The patient endorses mild tremulousnes which curiously is only with movement and mild nausea relieved with zofran tolerating meals. He is voiding and eliminating without difficulty. He is up ambulating minimally. Exam Vital Signs (past 8 hours): - 05/09/18 07:51 05/09/18 08:00 05/09/18 08:01 Temperature 98.8 F Pulse Rate 86 81 Respiratory Rate 26 H Blood Pressure 116/59 L 116/59 L Pulse Oximetry 100 05/09/18 09:00 05/09/18 10:00 05/09/18 11:00 Temperature Pulse Rate 69 62 60 Respiratory Rate 18 16 17 Blood Pressure 90/54 L 125/74 132/86 Pulse Oximetry 100 100 100 05/09/18 11:36 05/09/18 11:50 05/09/18 12:00 Temperature 98.4 F Pulse Rate 77 70 Respiratory Rate 20 Blood Pressure 132/86 131/96 H Pulse Oximetry 100 05/09/18 13:00 05/09/18 14:00 05/09/18 15:00 Temperature Pulse Rate 63 65 64 Respiratory Rate 17 16 18 Blood Pressure 119/77 124/76 119/78 Pulse Oximetry 100 100 100 Oxygen Delivery Method Room Air Oxygen Flow Rate 0 Narrative Exam Narrative: General: Young man lying in bed and in no acute distress, appears mildly uncomfortable, anxious, tremulous only with movement? well-developed, well- nourished, appropriately interactive. HEENT: Normocephalic, atraumatic. External ears without defect. Pupils equal, round, and reactive to light. Anicteric sclerae, moist conjunctivae, and no lid lag. Neck: Supple with full range of motion. No lymphadenopathy or thyromegaly. Cardiovascular: Regular rate and rhythm without murmurs, rubs, or gallops appreciated. Pulmonary: Clear to auscultation bilaterally without crackles, wheezes, or rhonchi. Normal respiratory effort with no use of accessory muscles. Abdomen: Soft, bowel sounds present, mild diffuse tenderness to palpation, nondistended. Hepatosplenomegaly appreciated. No masses appreciated. Extremities: No clubbing, cyanosis, or edema. Skin: Normal temperature, turgor, and texture; no rash, ulcers, or subcutaneous nodules appreciated. Neurological: Cranial nerves grossly intact. Psychiatric: Depressed mood and flat affect. Alert and oriented x 3. Objective Labs Result Diagrams: 05/10/18 04:35 05/10/18 04:35 Labs: Laboratory Results - last 24 hr 05/08/18 05/08/18 05/09/18 20:30 20:30 04:45 WBC 3.6 L RBC 3.40 L Hgb 11.7 L Hct 33.5 L MCV 98.5 MCH 34.4 H MCHC 34.9 RDW 14.7 Plt Count 32 L* Neut % (Auto) 65.2 Lymph % (Auto) 23.9 L [place] % (Auto) 9.8 Eos % (Auto) 0.7 L Baso % (Auto) 0.4 Neut # (Auto) 2300 Lymph # (Auto) 900 L [place] # (Auto) 400 Eos # (Auto) 0 Baso # (Auto) 0 Platelet Estimate Decreased on smear RBC Morphology Normal morphology PT 12.2 INR 1.1 APTT 32 Sodium Potassium Chloride Carbon Dioxide BUN Creatinine Estimated GFR BUN/Creatinine Ratio Glucose Calcium Magnesium Total Bilirubin AST ALT Alkaline Phosphatase Total Protein Albumin Globulin Albumin/Globulin Ratio Procalcitonin 0.06 05/09/18 04:45 WBC RBC Hgb Hct MCV MCH MCHC RDW Plt Count Neut % (Auto) Lymph % (Auto) [place] % (Auto) Eos % (Auto) Baso % (Auto) Neut # (Auto) Lymph # (Auto) [place] # (Auto) Eos # (Auto) Baso # (Auto) Platelet Estimate RBC Morphology PT INR APTT Sodium 137 Potassium 3.6 Chloride 104 Carbon Dioxide 23 BUN 20 Creatinine 0.90 Estimated GFR > 60.0 BUN/Creatinine Ratio 22.2 H Glucose 140 H D Calcium 8.3 L Magnesium 2.1 Total Bilirubin 1.0 AST 66 H ALT 46 Alkaline Phosphatase 71 Total Protein 6.7 Albumin 3.7 Globulin 3.0 Albumin/Globulin Ratio 1.2 Procalcitonin Assessment & Plan Plan: Assessment/Plan Narrative: Lalo Han is a 42-year-old male with a past medical history significant for alcohol use disorder, diabetes mellitus type 1, and 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 1. Acute alcohol withdrawal, present on admission. Active. -Admit to ICU on CIWA protocol with benzodiazepine use for withdrawal symptoms and protonix for abdominal pain. -Continue Folate, multivitamin, and thiamine. -Will replete electrolytes as needed. 2. Acute abdominal pain, present on admission. Resolved. -Likely secondary to alcohol withdrawal. -Continue Protonix. -Abdominal ultrasound demonstrated cholelithiasis without signs of cholecystitis and echogenic liver. -Follow liver function test and white count. 3. Thrombocytopenia, chronic, present on admission. Active. -Likely related to alcoholic marrow suppression and Gleevec. -Abdominal ultrasound demonstrated fatty liver disease which was also demonstrated on a CT abdomen and pelvis previously. No cirrhotic changes and patient does not have cirrhosis yet. -Continue monitor platelets daily. -Consider switching to Eliquis 2.5 mg twice daily for DVT prophylaxis if platelets continue to trend down. 4. CML, present on admission. Presumed stable. -Longstanding history of CML on Gleevec. He is managed by Dr. Camarena of Oncology. -Continue Gleevec 300 mg daily. -Continue monitor CBC daily. 5. Chronic low back pain, present on admission. Stable. -Patient reports this is a significant reason for his use of alcohol, as well as , other traumas that have occurred in his life. -Will order pain medication as needed. 6. Alcohol use disorder, present on admission. Active. -Encouraged participation in an intensive alcohol dependency program at the time of discharge. 7. Diabetes mellitus type 1, insulin using, chronic, present on admission. Active. -Decreased Lantus from 20 units twice daily to 10 units twice daily due to low blood glucose trend and decreased p.o. intake. -Continue low-dose correctional scale insulin Disposition: Likely to discharge in 1-2 days depending upon treatment of alcohol withdrawal.
[2018-05-09] MEDS: ENOXAPARIN 40 MG/0.4 ML SYRINGE SUBCUT (16:07)
[2018-05-09] MEDS: NICOTINE 14 PATCH 14 MG TOP (16:41)
--- NOTE | 2018-05-09 17:36 | PC.NURSE ---
Addendum entered by Elaine Sutherland R.N. 05/09/18 18:30: pt asking for more anxiety medicine. Even with scoring pt as having hallucinations(melting doran), CIWA score only 7. Pt has long history of issues with his father, who pt says is very controlling. Suggested counseling for pt to learn ways to better manage his relationship with his father. Original Note: bassam note pt requesting Ativan. Pt says the doran are melting again. CIWA score 10, with pt reporting severe anxiety attack, hallucinations. Trying to minimize Ativan use per Dr. Cruz. Also medicated with Clonidine and got a nicotine patch ordered (pt chews tobacco).Instructed pt in deep breathing exercises. Pt says he does not get Ativan at home. Asked pt what he does for anxiety at home and he really didn't have an answer. Pt says he should not have talked to his parents on the phone, they give him anxiety.
[2018-05-09] MEDS: MELATONIN 3 MG TABLET 6 MG PO (20:36)
[2018-05-09] MEDS: INSULIN GLARGINE 100 UNIT/ML 3ML PEN 10 UNIT SUBCUT (20:40)
[2018-05-09] MEDS: INSULIN ASPART 100 UNIT/ML INSULN PEN SUBCUT (20:41)
[2018-05-10] VITALS (7 sets, daily range): BP systolic 104–141; BP diastolic 71–93; PULSE 60–85; RESP 16–21; TEMP 36.7–37.4; O2SAT 95–100; BMI 21.5
[2018-05-10] MEDS: LORazepam 2 MG/ML SYRINGE IV ×2 (02:27→05:35)
[2018-05-10] MEDS: cloNIDine 0.1 MG TABLET PO (02:27)
[2018-05-10 04:53] LABS: Add Manual Diff / Slide Review NO; Basophils Absolute Auto 0 /uL (0-100); Basophils Percent Auto 0.4 % (0-2); Eosinophils Absolute Auto 0 /uL (0-450); Eosinophils Percent Auto 1.4 % (2-4); Hematocrit 35.8 % (41-53); Hemoglobin 12.1 g/dL (13.5-17.5); Lymphocytes Absolute Auto 700 /uL (1100-4500); Lymphocytes Percent Auto 24.6 % (25-40); Mean Corpuscular HGB Conc 33.8 % (30-36); Mean Corpuscular Hemoglobin 33.7 PG (26-34); Monocytes Absolute Auto 300 /uL (0-900); Monocytes Percent Auto 11.8 % (3-14); Neutrophils Absolute Auto 1800 /uL (1500-7000); Neutrophils Percent Auto 61.8 % (50-75); Red Blood Cell Count 3.58 X10^6/uL (4.5-5.9); Red Cell Distribution Width 14.7 % (11.6-14.8); White Blood Cell Count 2.9 X10^3/uL (4.5-11.0)
[2018-05-10 04:55] LABS: Platelet Count 30 X10^3/uL (150-400)
[2018-05-10 05:04] LABS: Alanine Aminotransferase 61 IU/L (21-72); Albumin 3.8 g/dL (3.5-5.0); Albumin Globulin Ratio 1.4 (1.0-2.8); Alkaline Phosphatase 75 U/L (38-126); Aspartate Aminotransferase 90 IU/L (17-59); BUN Creatinine Ratio 16.7 (6-22); Bilirubin Total 0.9 mg/dL (0.2-1.3); Blood Urea Nitrogen 15 mg/dL (9-20); Calcium 8.6 mg/dL (8.4-10.2); Carbon Dioxide 22 mmol/L (22-32); Chloride 105 mmol/L (98-107); Estimated Glomerular Filt Rate > 60.0 mL/min (>60); Globulin 2.8 g/dL (1.7-4.1); Glucose 168 mg/dL (70-100); HEMOLYSIS < 15 (0-50); Magnesium 1.7 mg/dL (1.6-2.3); Potassium 3.7 mmol/L (3.4-5.1); Sodium 137 mmol/L (137-145); Total Protein 6.6 g/dL (6.3-8.2)
[2018-05-10] MEDS: ONDANSETRON 4 MG/2 ML INJ IV ×2 (05:41→18:29)
[2018-05-10 05:49] LABS: RBC Morphology Normal Morphology
[2018-05-10 05:50] LABS: Platelet Estimate DECREASED ON SMEAR
--- NOTE | 2018-05-10 06:21 | PC.NURSE ---
Patient says I'm DTing bad moderate anxiety and agitation noted, diaphoresis, mild tremors, says I'm seeing bugs and the doran are closing in on me SR/SB, BP 120-130s/80-90s, afebrile, SpO2 100% on RA. Medicated with IV Ativan and PO Clonidine, IV Zofran for c/o nausea, no emesis, taking food and liquids.
--- NOTE | 2018-05-10 08:16 | P.PN_ITS ---
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 The patient was stable overnight. His last CIWA score was 11. He has received 1 dose of Ativan in the last 12 hr. Subjectively the patient continues to report hallucinations, headache, tremulousness and anxiety. Objectively his vital signs are stable, he is only tremulous with movement and does appear anxious. Discussed in depth inpatient rehabilitation for which I highly recommend at the end of his hospitalization. He is somewhat reluctant to repeat inpatient rehabilitation as he reports he has done this several times. Discussed antabuse and Librium for which the patient abstained from drinking for 2 or 3 months. I encouraged the patient to be up and ambulate in the room and hallways. He is voiding eliminating without difficulty. He reports a good appetite. Exam Vital Signs (past 8 hours): - 05/10/18 02:27 05/10/18 05:15 Temperature 98.7 F Pulse Rate 68 69 Respiratory Rate 18 Blood Pressure 121/83 Pulse Oximetry 100 Oxygen Delivery Method Room Air Oxygen Flow Rate 0 Narrative Exam Narrative: General: Young man lying in bed and in no acute distress, anxious, tremulous only with movement, well-developed, well-nourished, appropriately interactive. HEENT: Normocephalic, atraumatic. External ears without defect. Pupils equal, round, and reactive to light. Anicteric sclerae, moist conjunctivae, and no lid lag. Neck: Supple with full range of motion. No lymphadenopathy or thyromegaly. Cardiovascular: Regular rate and rhythm without murmurs, rubs, or gallops appreciated. Pulmonary: Clear to auscultation bilaterally without crackles, wheezes, or rhonchi. Normal respiratory effort with no use of accessory muscles. Abdomen: Soft, bowel sounds present, no tenderness to palpation, nondistended. Hepatosplenomegaly appreciated. No masses appreciated. Extremities: No clubbing, cyanosis, or edema. Skin: Normal temperature, turgor, and texture; no rash, ulcers, or subcutaneous nodules appreciated. Neurological: Cranial nerves grossly intact. Psychiatric: Depressed mood, anxious, and flat affect. Alert and oriented x 3. Objective Labs Result Diagrams: 05/10/18 04:35 05/10/18 04:35 Labs: Laboratory Results - last 24 hr 05/10/18 05/10/18 04:35 04:35 WBC 2.9 L RBC 3.58 L Hgb 12.1 L Hct 35.8 L MCV 100.0 MCH 33.7 MCHC 33.8 RDW 14.7 Plt Count 30 L* Neut % (Auto) 61.8 Lymph % (Auto) 24.6 L [place] % (Auto) 11.8 Eos % (Auto) 1.4 L Baso % (Auto) 0.4 Neut # (Auto) 1800 Lymph # (Auto) 700 L [place] # (Auto) 300 Eos # (Auto) 0 Baso # (Auto) 0 Platelet Estimate Decreased on smear RBC Morphology Normal morphology Sodium 137 Potassium 3.7 Chloride 105 Carbon Dioxide 22 BUN 15 Creatinine 0.90 Estimated GFR > 60.0 BUN/Creatinine Ratio 16.7 Glucose 168 H Calcium 8.6 Magnesium 1.7 Total Bilirubin 0.9 AST 90 H ALT 61 Alkaline Phosphatase 75 Total Protein 6.6 Albumin 3.8 Globulin 2.8 Albumin/Globulin Ratio 1.4 Assessment & Plan Plan: Assessment/Plan Narrative: Lalo Han is a 42-year-old male with a past medical history significant for alcohol use disorder, diabetes mellitus type 1, and 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 1. Acute alcohol withdrawal, present on admission. Active. -Discontinued CIWA protocol. Started librium taper with 75 mg twice daily for the next 1-2 days then will decrease to 50 mg twice daily and so forth until on lowest maintenance dose. -Continue protonix for abdominal pain. -Continue Folate, multivitamin, and thiamine. -Will replete electrolytes as needed. Ordered magnesium sulfate 2 g IV x1 and potassium chloride 40 mEq p.o. x1 as both were trending down and at low normal. 2. Acute abdominal pain, present on admission. Resolved. -Likely secondary to alcohol withdrawal. -Continue Protonix. -Abdominal ultrasound demonstrated cholelithiasis without signs of cholecystitis and echogenic liver indicative of fatty liver disease. -Follow liver function test and white count. 3. Thrombocytopenia, chronic, present on admission. Active. -Likely related to alcoholic marrow suppression and Gleevec. -Abdominal ultrasound demonstrated fatty liver disease which was also demonstrated on a CT abdomen and pelvis previously. No cirrhotic changes and patient does not have cirrhosis yet. -Continue monitor platelets daily. -Consider switching to Eliquis 2.5 mg twice daily for DVT prophylaxis if platelets continue to trend down. 4. Transaminitis, acuity unknown but likely chronic, present on admission. Resolving. -Secondary to alcohol use with AST to ALT ratio 2:1. -Continue to recommend abstaining from alcohol. Monitor LFTs daily. 5. CML, present on admission. Presumed stable. -Longstanding history of CML on Gleevec. He is managed by Dr. Camarena [facility]. -Continue Gleevec 300 mg daily. -Continue monitor CBC daily. 6. Chronic low back pain, present on admission. Stable. -Patient reports this is a significant reason for his use of alcohol, as well as , other traumas that have occurred in his life. -Will order pain medication as needed. 7. Alcohol use disorder, present on admission. Active. -Encouraged participation in an intensive alcohol dependency program at the time of discharge. 8. Diabetes mellitus type 1, insulin using, chronic, present on admission. Active. -Last hemoglobin A1c 7.3% 08/2017. Repeat hemoglobin A1c pending. -Decreased Lantus from 20 units twice daily to 10 units twice daily due to low blood glucose trend and decreased p.o. intake. Now the patient is adequately maintaining p.o. may restart normal Lantus dose depending upon blood glucose levels. -Continue low-dose correctional scale insulin. Disposition: Likely to discharge in 1-2 days depending upon treatment of alcohol withdrawal and highly recommend inpatient rehabilitation program.
[2018-05-10] MEDS: INSULIN ASPART 100 UNIT/ML INSULN PEN SUBCUT ×4 (09:02→21:18)
[2018-05-10] MEDS: POTASSIUM CHLORIDE 20 MEQ TAB 40 MEQ PO (09:03)
[2018-05-10] MEDS: MAGNESIUM SULFATE 2 GM/50 ML PIGGYBACK IV (09:03)
[2018-05-10] MEDS: INSULIN GLARGINE 100 UNIT/ML 3ML PEN 10 UNIT SUBCUT ×2 (09:04→21:22)
[2018-05-10] MEDS: ENOXAPARIN 40 MG/0.4 ML SYRINGE SUBCUT (09:04)
[2018-05-10] MEDS: FOLIC ACID 1 MG TABLET PO (09:04)
[2018-05-10] MEDS: PANTOPRAZOLE 40 MG VIAL IV (09:05)
[2018-05-10] MEDS: MULTIVITAMIN 1 TABLET 1 TAB PO (09:05)
[2018-05-10] MEDS: THIAMINE 100 MG TABLET PO (09:06)
[2018-05-10] MEDS: SODIUM CHLORIDE 0.9% 1,000 ML 100 ML IV (09:11)
[2018-05-10] MEDS: chlordiazePOXIDE 25 MG CAPSULE 75 MG PO ×2 (09:29→21:36)
[2018-05-10 09:47] LABS: Hemoglobin A1C% w Est Avg Glu 7.2 % (4.0-6.0)
[2018-05-10] MEDS: HALOPERIDOL 5 MG/ML VIAL 2 MG IV ×2 (12:27→15:45)
--- NOTE | 2018-05-10 13:25 | CM.DANOTE ---
DCP/Assessment continued: Reviewed chart. Per MD, in AM rounds CIWA protocol stopped and librium taper started. GUEST RELATIONS COORDINATOR met with patient explained CM/SW role. Patient alert and oriented during visit. Patient reports that he resides alone in [place]. Patient has cane but is primarily I in all ADL's. Patient with long h/o substance and alcohol abuse. Patient reports that he had been sober for unknown amount of time but started to drink again in March. Patient reports drinking approximately 4 beers a day. Patient has supportive family that live in [place] and assist patient financially. Patient plans to d/c home once stable. Offered patient options including the possibility of inpatient rehab. Patient reports I have been to them all. Patient has no desire to go to inpatient for substance abuse/mental health. Patient acknowledges that he has underlining mental health disorders that have not been treated. Patient's PCP is Dr. Willingham. Patient reports not having the best relationship with her. Patient also with h/o CML and sees Dr. Henrández at [facility]. Patient agreeable to resources for outpatient mental health follow up. Provided patient with list and encouraged him to go to 1)[facility] 2)[place] 3)[facility]. None of the mentioned agencies require referral for assessment. Patient also provided information to [facility] in [place]. At this time patient requesting no additional resources. Patient denies suicidal or homicidal ideations. P: CM team to continue to follow for d/c planning needs. Patient provided with mental health and substance abuse resources. YASMINE Cowan Discharge Planning/Care Management CM Discharge Assessment Start: 05/09/18 15:58 Freq: Status: Active Protocol: Document 05/09/18 15:58 KJS (Rec: 05/09/18 16:04 [place] [id number]) Discharge Planning Assessment Assigned Nurse Examiner YASMINE Cowan Contact Information Lelo Han (Mother) Advance Directives? No History Provided By Patient Medical Record Household Members none Type of transporation used prior to Relies on Others admit Is patient alert and oriented? No: Not currently [employer] Caregiver for Another No Comment Unclear at this time. Comment Reviewed chart. Patient is a 42yr old male admitted to [facility] for alcohol withdrawal. PCP is Dr. Willingham. Primary payor is 1)[employer] 20[employer]. GUEST RELATIONS COORDINATOR attempted to meet with patient today. CIWA scores in the high teens and patient sleeping at time of visit. Patient with h/o diabetes, CML , alcoholism, and substance abuse. No family at bedside at time of visit. GUEST RELATIONS COORDINATOR to re-attempt visit when patient medically appropriate. Review Status In Process Please Provide Date Initial DC 05/09/18 Assessment Was Performed Next Review Type Continued Stay Review Document 05/10/18 13:24 KJS (Rec: 05/10/18 13:24 KJS [id number]) Discharge Planning Assessment Assigned Nurse Examiner YASMINE Cowan Contact Information Lelo Han (Mother) Advance Directives? No History Provided By Patient Medical Record Household Members none Type of transporation used prior to Relies on Others admit Is patient alert and oriented? No: Not currently [employer] Caregiver for Another No Comment Unclear at this time. Comment Reviewed chart. Patient is a 42yr old male admitted [facility] for [facility] withdrawal. PCP is Dr. Willingham. Primary payor is 1)[employer] 20[employer]. GUEST RELATIONS COORDINATOR attempted to meet with patient today. CIWA scores in the high teens and patient sleeping at time of visit. Patient with h/o diabetes, CML , alcoholism, and substance abuse. No family at bedside at time of visit. GUEST RELATIONS COORDINATOR to re-attempt visit when patient medically appropriate. Review Status In Process Please Provide Date Initial DC 05/09/18 Assessment Was Performed Next Review Type Continued Stay Review
--- NOTE | 2018-05-10 15:21 | PC.NURSE ---
Day Shift Note Clarified Lovenox administration this morning with Dr. Cruz as well as CIWA scores overnights. OK to give Lovenox per Dr. Cruz. Librium administered per MD order. CIWA scores 8 and 5 this shift. Pt continues to report visual hallucinations, specifically doran melting around me - Haldol administered. Pt denies nausea, denies abdominal pain. Call light within reach. Seizure precautions in place with seizure pads. Bed alarm on.
[2018-05-10] MEDS: NICOTINE 14 PATCH 14 MG TOP (16:54)
--- NOTE | 2018-05-10 20:12 | PC.NURSE ---
2009 - Patient transferred to room 216. Left ICU in good condition with all belongings. Report given to receiving nurse Yesenia.
[2018-05-10] MEDS: MELATONIN 3 MG TABLET 6 MG PO (21:37)
--- NOTE | 2018-05-10 22:36 | PC.NURSE ---
Evening Shift Note- Patient transfered to acute care from ICU. Patient arrived via bed at 1999. Patient oriented to room, bathroom, lights, and call oscar/tv remote. No complaints of pain or discomfort. No complaints of N/V. CIWA precautions in place. Safety precautions in place. bed alarm activated. called oscar and phone within reach. Will continue to monitor.
[2018-05-11] MEDS: HALOPERIDOL 5 MG/ML VIAL 2 MG IV ×6 (01:06→23:59)
--- NOTE | 2018-05-11 01:23 | PC.NURSE ---
Addendum entered by Anurag Ortiz R.N. 05/11/18 02:58: 0257: Awake, Pt states his stomach hurts and wants more Haldol. Original Note: Internet Marketing Consultant Note: 0045: Awake, resting in bed. Pt states he is having hallucinations, abdominal pain, and wants Ativan. No tremor noted in hands initially, but now has a pronounced tremor. Pt is alert, oriented X3. MILA Allen notified of patient's request for Ativan and pain medication. Pt notified that Ativan is discontinued, and that he may have Haldol. Pt states Haldol doesn't work and that Tylenol won't help. He agreed to try Haldol. Warm pad placed on abdomen for comfort.
[2018-05-11] MEDS: ACETAMINOPHEN 325 MG TABLET 650 MG PO ×2 (03:06→08:39)
[2018-05-11 03:56] VITALS: BP 120/80; PULSE 80; RESP 18; TEMP 36.4; O2SAT 100
[2018-05-11 06:01] LABS: Add Manual Diff / Slide Review NO; Basophils Absolute Auto 0 /uL (0-100); Basophils Percent Auto 1.6 % (0-2); Eosinophils Absolute Auto 0 /uL (0-450); Eosinophils Percent Auto 1.1 % (2-4); Hemoglobin 11.9 g/dL (13.5-17.5); Lymphocytes Absolute Auto 700 /uL (1100-4500); Lymphocytes Percent Auto 27.8 % (25-40); Mean Corpuscular HGB Conc 33.8 % (30-36); Mean Corpuscular Hemoglobin 33.8 PG (26-34); Mean Corpuscular Volume 99.8 fL (80-100); Monocytes Absolute Auto 400 /uL (0-900); Monocytes Percent Auto 15.3 % (3-14); Neutrophils Absolute Auto 1400 /uL (1500-7000); Neutrophils Percent Auto 54.2 % (50-75); Red Blood Cell Count 3.51 X10^6/uL (4.5-5.9); Red Cell Distribution Width 14.6 % (11.6-14.8); White Blood Cell Count 2.6 X10^3/uL (4.5-11.0)
[2018-05-11 06:08] LABS: Platelet Count 32 X10^3/uL (150-400)
[2018-05-11 06:15] LABS: Alanine Aminotransferase 68 IU/L (21-72); Albumin 3.7 g/dL (3.5-5.0); Albumin Globulin Ratio 1.4 (1.0-2.8); Alkaline Phosphatase 79 U/L (38-126); Aspartate Aminotransferase 81 IU/L (17-59); Bilirubin Total 0.8 mg/dL (0.2-1.3); Blood Urea Nitrogen 16 mg/dL (9-20); Calcium 8.4 mg/dL (8.4-10.2); Carbon Dioxide 20 mmol/L (22-32); Chloride 105 mmol/L (98-107); Estimated Glomerular Filt Rate > 60.0 mL/min (>60); Globulin 2.7 g/dL (1.7-4.1); Glucose 215 mg/dL (70-100); HEMOLYSIS < 15 (0-50); Potassium 4.1 mmol/L (3.4-5.1); Sodium 135 mmol/L (137-145); Total Protein 6.4 g/dL (6.3-8.2)
[2018-05-11 06:19] LABS: RBC Morphology Normal Morphology
[2018-05-11 06:20] LABS: Platelet Estimate DECREASED ON SMEAR
[2018-05-11] MEDS: SODIUM CHLORIDE 0.9% 1,000 ML 100 ML IV (06:30)
[2018-05-11 08:00] VITALS: BP 101/69; PULSE 77; RESP 16; TEMP 36.2; O2SAT 99
[2018-05-11] MEDS: FOLIC ACID 1 MG TABLET PO (08:37)
[2018-05-11] MEDS: ENOXAPARIN 40 MG/0.4 ML SYRINGE SUBCUT (08:37)
[2018-05-11] MEDS: PANTOPRAZOLE 40 MG VIAL IV (08:37)
[2018-05-11] MEDS: THIAMINE 100 MG TABLET PO (08:37)
[2018-05-11] MEDS: MULTIVITAMIN 1 TABLET 1 TAB PO (08:37)
[2018-05-11] MEDS: INSULIN GLARGINE 100 UNIT/ML 3ML PEN 10 UNIT SUBCUT (08:38)
[2018-05-11] MEDS: INSULIN ASPART 100 UNIT/ML INSULN PEN SUBCUT ×3 (08:38→16:29)
[2018-05-11] MEDS: chlordiazePOXIDE 25 MG CAPSULE 75 MG PO (08:43)
--- NOTE | 2018-05-11 10:16 | PC.NURSE ---
Day shift note Assumed pt care at 0700. Pt is a/o X3, complains of pain in abdomen and hallucinations, requesting Haldol. Medicated pt per JUN, Haldol given and Tylenol with effect. Pt sleeping at this time, plan of care continues. Bed in lowest locked position and call light within reach.
[2018-05-11 11:53] VITALS: BP 135/88; PULSE 73; RESP 16; TEMP 36.7; O2SAT 99
--- NOTE | 2018-05-11 12:04 | P.PN_ITS ---
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 The patient reports chronic back pain and bilateral shoulder pain that he believes is from of flu vaccination in which he got SIRVA. We will have Physical therapy evaluate thoroughly. Subjectively the patient continues to report nausea and anxiety. Objectively his vital signs are stable and he is anxious. His tremulousness with movement has resolved. The patient's parents were present and we were able to discuss the patient's alcoholism in depth and high recommendations for repeat inpatient rehabilitation at the end of his hospitalization. The patient continues to be reluctant to go to inpatient rehabilitation. He is voiding and eliminating without difficulty. He reports a good appetite. Exam Vital Signs (past 8 hours): - 05/11/18 08:00 05/11/18 11:53 Temperature 97.2 F L 98.1 F Pulse Rate 77 73 Respiratory Rate 16 16 Blood Pressure 101/69 135/88 Pulse Oximetry 99 99 Oxygen Delivery Method Room Air Oxygen Flow Rate 0 Narrative Exam Narrative: General: Young man lying in bed and in no acute distress, anxious, well- developed, well-nourished, appropriately interactive. HEENT: Normocephalic, atraumatic. External ears without defect. Pupils equal, round, and reactive to light. Anicteric sclerae, moist conjunctivae, and no lid lag. Neck: Supple with full range of motion. No lymphadenopathy or thyromegaly. Cardiovascular: Regular rate and rhythm without murmurs, rubs, or gallops appreciated. Pulmonary: Clear to auscultation bilaterally without crackles, wheezes, or rhonchi. Normal respiratory effort with no use of accessory muscles. Abdomen: Soft, bowel sounds present, no tenderness to palpation, nondistended. Hepatosplenomegaly appreciated. No masses appreciated. Extremities: No clubbing, cyanosis, or edema. Skin: Normal temperature, turgor, and texture; no rash, ulcers, or subcutaneous nodules appreciated. Neurological: Cranial nerves grossly intact. Psychiatric: Depressed mood, anxious, and flat affect. Alert and oriented x 3. Objective Labs Result Diagrams: 05/11/18 05:37 05/11/18 05:37 Labs: Laboratory Results - last 24 hr 05/11/18 05/11/18 05:37 05:37 WBC 2.6 L RBC 3.51 L Hgb 11.9 L Hct 35.0 L MCV 99.8 MCH 33.8 MCHC 33.8 RDW 14.6 Plt Count 32 L* Neut % (Auto) 54.2 Lymph % (Auto) 27.8 [place] % (Auto) 15.3 H Eos % (Auto) 1.1 L Baso % (Auto) 1.6 Neut # (Auto) 1400 L Lymph # (Auto) 700 L [place] # (Auto) 400 Eos # (Auto) 0 Baso # (Auto) 0 Platelet Estimate Decreased on smear RBC Morphology Normal morphology Sodium 135 L Potassium 4.1 Chloride 105 Carbon Dioxide 20 L BUN 16 Creatinine 1.00 Estimated GFR > 60.0 BUN/Creatinine Ratio 16.0 Glucose 215 H Calcium 8.4 Total Bilirubin 0.8 AST 81 H ALT 68 Alkaline Phosphatase 79 Total Protein 6.4 Albumin 3.7 Globulin 2.7 Albumin/Globulin Ratio 1.4 Assessment & Plan Plan: Assessment/Plan Narrative: Lalo Han is a 42-year-old male with a past medical history significant for alcohol use disorder, diabetes mellitus type 1, and 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 1. Acute alcohol withdrawal, present on admission. Active. -Discontinued CIWA protocol. Started librium taper with 75 mg twice daily and decreased to 50 mg twice daily and will continue to titrate down to lowest possible maintenance dose to control alcohol withdraw and anxiety. -Continue protonix for abdominal pain. -Continue Folate, multivitamin, and thiamine. -Will replete electrolytes as needed. Ordered magnesium sulfate 2 g IV x1 and potassium chloride 40 mEq p.o. x1 as both were trending down and at low normal. 2. Acute abdominal pain, present on admission. Resolved. -Likely secondary to alcohol withdrawal. -Continue Protonix. -Abdominal ultrasound demonstrated cholelithiasis without signs of cholecystitis and echogenic liver indicative of fatty liver disease. 3. Thrombocytopenia, chronic, present on admission. Active. -Likely related to alcoholic marrow suppression and Gleevec. -Abdominal ultrasound demonstrated fatty liver disease which was also demonstrated on a CT abdomen and pelvis previously. No cirrhotic changes and patient does not have cirrhosis yet. -Continue monitor platelets daily. 4. Transaminitis, acuity unknown but likely chronic, present on admission. Resolving. -Secondary to alcohol use with AST to ALT ratio 2:1. -Continue to recommend abstaining from alcohol. Monitor LFTs daily. 5. CML, present on admission. Presumed stable. -Longstanding history of CML on Gleevec. He is managed by Dr. Camarena of [facility]. -Continue Gleevec 300 mg daily. -Continue monitor CBC daily. 6. Chronic low back pain and shoulder pain, present on admission. Stable. -Patient reports this is a significant reason for his use of alcohol, as well as , other traumas that have occurred in his life. -Patient has history of heroin abuse and therefore will avoid opiates. -Patient believes his shoulder pain is due to influenza vaccination in which he acquired ?SIRVA?, however, pain is sometimes bilateral. Ordered physical therapy who evaluated and reports that ROM is intact and that patient guards movement quite often although he is able to move it. Recommend continued PT. 7. Alcohol use disorder, present on admission. Active. -Encouraged participation in an intensive alcohol dependency program at the time of discharge. 8. Diabetes mellitus type 1, insulin using, chronic, present on admission. Active. -Last hemoglobin A1c 7.3% 08/2017. Repeat hemoglobin A1c pending. -Restarted normal Lantus dose 20 units twice daily. -Continue low-dose correctional scale insulin. Disposition: Likely to discharge tomorrow hopefully to an inpatient rehabilitation program. Will plan to start Antabuse at time of discharge.
--- NOTE | 2018-05-11 15:19 | PT.IIE ---
Current Diagnoses Chronic myeloid leukemia, BCR/ABL-positive, not having achieved remission (05/08/18) Leukemia, unspecified not having achieved remission (05/08/18) Other secondary thrombocytopenia (05/08/18) Thrombocytopenia, unspecified (05/08/18) Type 2 diabetes mellitus without complications (05/08/18) Alcohol dependence, uncomplicated (05/08/18) Alcohol dependence with withdrawal, uncomplicated (05/08/18) Alcohol dependence with withdrawal, unspecified (05/08/18) Other chronic pain (05/08/18) Alcoholic cirrhosis of liver without ascites (05/08/18) Low back pain (05/08/18) Unspecified abdominal pain (05/08/18) Adverse effect of unspecified drugs, medicaments and biological substances, initial encounter (05/08/18) 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 (05/08/18) Surgical History (Last Reviewed 05/08/18 @ 09:22 by Yaneth Benson MD) Status post appendectomy Medical History (Last Updated 05/08/18 @ 12:14 by Yaneth Benson MD) Alcoholism (Acute) Thrombocytopenia (Acute) CML (chronic myelocytic leukemia) (Acute) Insulin dependent diabetes mellitus (Acute) Physical Therapy Inpatient Evaluation/Re-Eval M1 PT/OT-IP Prior Functional Status Start: 05/11/18 16:54 Freq: NEEDED Status: Active Protocol: Document 05/11/18 15:19 AB (Rec: 05/11/18 17:16 AB [id number]) Medical Review Prior Functional Status Medical History Reviewed Yes Communication able to make needs known Mobility and Gait pt stated that he is modified independent with all mobilities and ambulation without AD. has used a SPC but has stopped using it for ~ 8 months already Social History Household Members none Number of Floors (Floors) One Floor Number of Stairs To Enter/Railing? no steps to enter Home Environment Standard Height Toilet Walk in Shower Built-In Shower Seat Home Equipment Hand Held Shower Grab Bars Near Toilet Grab Bars In Shower Additional Social History Comment stated that he has a caregiver that comes in 2x/week for 3 hours/day. stated that his parents also comes in to assist him. M2 PT-IP Current Condition Start: 05/11/18 16:54 Freq: NEEDED Status: Active Protocol: Document 05/11/18 15:19 AB (Rec: 05/11/18 17:16 AB [id number]) Physical Therapy Current Condition Current Condition Evaluation Date 05/11/18 Treatment Diagnosis alcohol withdrawal; difficulties in walking Onset Date 05/08/18 M3 PT-IP Subjective Start: 05/11/18 16:54 Freq: NEEDED Status: Active Protocol: Document 05/11/18 15:19 AB (Rec: 05/11/18 17:16 AB [id number]) Subjective Physical Therapy Visit Type Type Initial Evaluation Visit Start Time 15:19 Visit Stop Time 15:44 Total Visit Minutes 25 Notes pt admitted for alcohol withdrawal. MD requested PT eval to include shoulder assessment due to c/o pain and if further imaging is necessary. Number of FORMING MACHINE TENDER Visits 0 Physical Therapy Visit Comments Patient Comments pt agreeable to do PT Therapy Pain Assessment Pain When Pain Assessed At Rest Pain Present Pain Present Pain Reported Location Bilateral Shoulder Scale Used pain scale not stated; pain with movement Description With Movement Pain Behaviors Guarding Lower Back Intensity 8 Scale Used Numeric (1 - 10) Description Chronic M4 PT-IP Mobility and Gait Start: 05/11/18 16:54 Freq: NEEDED Status: Active Protocol: Document 05/11/18 15:19 AB (Rec: 05/11/18 17:16 AB [id number]) PT-Bed Mobility Assessment Supine to Sit Supine to Sit Standby Assistance Sit to Supine Sit to Supine Standby Assistance Scooting Scooting to Edge of Bed Standby Assistance PT-Transfer Assessment Sit to and From Stand Sit to and from Stand Standby Assistance Equipment Transfer Assistive Device Gait Belt Front Wheeled Walker Orthotic/Prosthetic Devices or Brace: No Transfers Transfer Destination Toilet Transfer Technique pt ambulated to the toilet without AD Transfer Ability Level of Assist Contact Guard Assistance Comments Mobility Comments pt ambulated in room ~ 30 ft without AD SBA to CGA. pt presents with ataxic gait with increase lateral trunk flexion to the R. pt with unsteady gait and tends to reach for the wall/things around the room for balance. educated pt on posture and stability and asked to ambulate again. pt ambulated for ~ 25 ft SBA without AD. assessed pt's shoulders. pt requested to use the toilet afterwards and ambulated without AD SBA to CGA. pt wants to sit on the toilet for awhile. call light given and nurse informed. Gait Assessment Gait Gait Assistance Required: Standby Assistance Contact Guard Assist Distance (Feet) 30 Able to Maintain Weight Bearing Status Yes During Gait Assistive Devices Assistive Device None Gait Belt Orthotic/Prosthetic Devices or Brace: No Gait Deviations General Gait Pattern Antalgic Ataxic Decreased Stride Length Decreased Feet Clearance Flexed Trunk Factors Limiting Gait Function Factors Limiting Gait Function Decreased Activity Tolerance Decreased Strength Difficulty Following Directions Limited Range of Motion Pain Poor Balance Poor Safety Awareness PT-Balance Assessment Sitting Balance and Reactions Static Sitting Balance Ability Good Dynamic Sitting Balance Ability Good Standing Balance and Reactions Static Standing Balance Ability Fair Dynamic Standing Balance Ability Fair Device Used without AD M5 PT-IP Objective Assessments Start: 05/11/18 16:54 Freq: NEEDED Status: Active Protocol: Document 05/11/18 15:19 AB (Rec: 05/11/18 17:16 AB [id number]) Orientation Orientation/Cognition Level of Alertness Alert Orientation Name Age Safety Awareness Decreased Safety Awareness Gross Range of Motion Upper Extremity ROM Assessment Bilaterally Impaired Impairments PROM: L shoulder flexion and abduction: 0-170 degrees R shoulder flexion and abduction: 0-150 deg Lower Extremity ROM Assessment Within Functional Limits Strength Upper Extremity Strength Assessment Bilaterally Impaired Shoulder 3+/5 Elbow 5/5 Lower Extremity Strength Assessment Within Functional Limits Sensation Assessment Sensation Gross Sensation WNL Muscle Tone Muscle Tone WNL Yes Other Assessments Other Other Assessments pt initially c/o R shoulder pain but when asked to move shoulders, stated that he has pain on both shoulders. stated that pain started last january when he got the flu shot. no tenderness during palpation AROM limited with c/o pain. completed PROM: increase guarding during movement and seems like pt is resisting movement especially on RUE with pt pushing down on PT hand. (pls refer to ROM for measurements). no swelling or edema noted. (-) drop arm test (-) lainez-chanel test (-) carl test pt has forward and and forward shoulder posture . M6 PT-IP Treatment Start: 05/11/18 16:54 Freq: NEEDED Status: Active Protocol: Document 05/11/18 15:19 AB (Rec: 05/11/18 17:16 AB [id number]) Physical Therapy Treatment Education Education Provided Safety M7 PT-IP Assessment and Plan Start: 05/11/18 16:54 Freq: NEEDED Status: Active Protocol: Document 05/11/18 15:19 AB (Rec: 05/11/18 17:16 AB [id number]) PT Summary Assessment and Plan Potential Rehabilitation Potential Fair Status of Condition at Evaluation Stable Summary Impairments Pain ROM Strength Balance Coordination Sensation Tone Cognition Bed Mobility Transfers Gait Activity Tolerance Assessment Summary pt requiring SBA to CGA with mobility. pt plans to go home with his parents/caregiver to assist him. Shoulder assessment also completed and informed the doctor regarding findings and no urgent concerns on the shoulders at this time. will continue PT intervention while here in the hospital for ambulation and balance training. Goals Bed Mobility Goal Independent Transfer Goal Independent Gait Goal Independent Gait Distance 300 Days to Meet Goals 3 Frequency of Treatment Frequency Of Treatment Once a Day Treatment Plan Physical Therapy Treatment Plan Bed Mobility Training Transfer Training Gait Training Therapeutic Exercise Balance Retraining Discharge Planning Hot or Cold Pack Neuromuscular Re-ed Coordination Retraining Manual Therapy Other Recommendations and Next Treatment ambulation using SPC/without Focus AD (safest least restrictive AD), standing balance assessment and training Recommendations To Nursing Amount of Assist Needed 1 Person Assist Discharge Recommendations PT Discharge Recommendations Home with Assistance
[2018-05-11 16:03] VITALS: BP 126/92; PULSE 83; RESP 18; TEMP 36.9; O2SAT 99
[2018-05-11] MEDS: NICOTINE 14 PATCH 14 MG TOP (16:26)
[2018-05-11] MEDS: ONDANSETRON 4 MG/2 ML INJ IV (16:26)
[2018-05-11 19:10] VITALS: BP 103/74; PULSE 76; RESP 16; TEMP 36.9; O2SAT 98
[2018-05-11] MEDS: INSULIN GLARGINE 100 UNIT/ML 3ML PEN 20 UNIT SUBCUT (20:40)
[2018-05-11] MEDS: chlordiazePOXIDE 25 MG CAPSULE 50 MG PO (20:49)
[2018-05-11] MEDS: MELATONIN 3 MG TABLET 6 MG PO (20:50)
[2018-05-11] MEDS: SODIUM CHLORIDE 0.9% FLUSH 10 ML IV (20:51)
[2018-05-12] VITALS: BP 127/84; PULSE 81; RESP 18; TEMP 36.7; O2SAT 98
[2018-05-12 04:00] VITALS: BP 131/86; PULSE 74; RESP 18; TEMP 36.7; O2SAT 99
[2018-05-12 05:49] LABS: Add Manual Diff / Slide Review NO; Basophils Absolute Auto 0 /uL (0-100); Basophils Percent Auto 0.4 % (0-2); Eosinophils Absolute Auto 100 /uL (0-450); Eosinophils Percent Auto 1.6 % (2-4); Hematocrit 35.8 % (41-53); Hemoglobin 11.9 g/dL (13.5-17.5); Lymphocytes Absolute Auto 800 /uL (1100-4500); Lymphocytes Percent Auto 23.6 % (25-40); Mean Corpuscular HGB Conc 33.4 % (30-36); Mean Corpuscular Hemoglobin 33.8 PG (26-34); Mean Corpuscular Volume 101.4 fL (80-100); Monocytes Absolute Auto 500 /uL (0-900); Monocytes Percent Auto 16.9 % (3-14); Neutrophils Absolute Auto 1900 /uL (1500-7000); Neutrophils Percent Auto 57.5 % (50-75); Platelet Count 43 X10^3/uL (150-400); Red Blood Cell Count 3.53 X10^6/uL (4.5-5.9); Red Cell Distribution Width 14.8 % (11.6-14.8); White Blood Cell Count 3.2 X10^3/uL (4.5-11.0)
[2018-05-12 05:55] LABS: Alanine Aminotransferase 65 IU/L (21-72); Albumin 3.8 g/dL (3.5-5.0); Albumin Globulin Ratio 1.4 (1.0-2.8); Alkaline Phosphatase 83 U/L (38-126); Aspartate Aminotransferase 60 IU/L (17-59); BUN Creatinine Ratio 14.2 (6-22); Bilirubin Total 0.5 mg/dL (0.2-1.3); Blood Urea Nitrogen 17 mg/dL (9-20); Carbon Dioxide 19 mmol/L (22-32); Chloride 103 mmol/L (98-107); Estimated Glomerular Filt Rate > 60.0 mL/min (>60); Globulin 2.7 g/dL (1.7-4.1); Glucose 333 mg/dL (70-100); HEMOLYSIS < 15 (0-50); Potassium 4.3 mmol/L (3.4-5.1); Sodium 135 mmol/L (137-145); Total Protein 6.5 g/dL (6.3-8.2)
[2018-05-12 08:00] VITALS: BP 118/85; PULSE 90; RESP 16; TEMP 36.6; O2SAT 99
[2018-05-12] MEDS: chlordiazePOXIDE 25 MG CAPSULE 50 MG PO (08:54)
[2018-05-12] MEDS: ACETAMINOPHEN 325 MG TABLET 650 MG PO ×2 (08:56→20:17)
[2018-05-12] MEDS: ENOXAPARIN 40 MG/0.4 ML SYRINGE SUBCUT (08:57)
[2018-05-12] MEDS: INSULIN ASPART 100 UNIT/ML INSULN PEN SUBCUT ×3 (09:07→20:08)
[2018-05-12] MEDS: INSULIN GLARGINE 100 UNIT/ML 3ML PEN 20 UNIT SUBCUT ×2 (09:09→20:11)
[2018-05-12] MEDS: FOLIC ACID 1 MG TABLET PO (09:10)
[2018-05-12] MEDS: THIAMINE 100 MG TABLET PO (09:10)
[2018-05-12] MEDS: MULTIVITAMIN 1 TABLET 1 TAB PO (09:10)
[2018-05-12] MEDS: SODIUM CHLORIDE 0.9% FLUSH 10 ML IV ×2 (09:12→20:08)
[2018-05-12] MEDS: PANTOPRAZOLE 40 MG VIAL IV (10:45)
--- NOTE | 2018-05-12 11:58 | PT.IPTN ---
Current Diagnoses Chronic myeloid leukemia, BCR/ABL-positive, not having achieved remission (05/08/18) Leukemia, unspecified not having achieved remission (05/08/18) Other secondary thrombocytopenia (05/08/18) Thrombocytopenia, unspecified (05/08/18) Type 2 diabetes mellitus without complications (05/08/18) Alcohol dependence, uncomplicated (05/08/18) Alcohol dependence with withdrawal, uncomplicated (05/08/18) Alcohol dependence with withdrawal, unspecified (05/08/18) Other chronic pain (05/08/18) Alcoholic cirrhosis of liver without ascites (05/08/18) Low back pain (05/08/18) Unspecified abdominal pain (05/08/18) Adverse effect of unspecified drugs, medicaments and biological substances, initial encounter (05/08/18) 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 (05/08/18) Physical Therapy Treatment Note M2 PT-IP Current Condition Start: 05/11/18 16:54 Freq: NEEDED Status: Active Protocol: Document 05/11/18 15:19 AB (Rec: 05/11/18 17:16 AB [id number]) Physical Therapy Current Condition Current Condition Evaluation Date 05/11/18 Treatment Diagnosis alcohol withdrawal; difficulties in walking Onset Date 05/08/18 M3 PT-IP Subjective Start: 05/11/18 16:54 Freq: NEEDED Status: Active Protocol: Document 05/12/18 11:56 AB (Rec: 05/12/18 11:58 AB [id number]) Subjective Physical Therapy Visit Type Type Patient Refusal Notes checked on pt and pt that he is not feeling too well today. c/o soreness all over. refused PT. pt educated and informed that PT will check back 1130 am. pt stated check back at 1230 instead.
--- NOTE | 2018-05-12 12:47 | P.PN_ITS ---
Subjective Date Patient Seen: 05/12/18 Interval history: Lalo Han is a 42-year-old male with a past medical history significant for alcohol use disorder, diabetes mellitus type 1, and 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 Today the patient is resting bed comfortably. He denies any symptoms of alcohol withdrawal other than mild headache. He denies tremulousness, lightheadedness or dizziness, nausea, vomiting, abdominal pain, fever, chills, formication, dysuria or diarrhea. He does endorse mild constipation. The patient continues to be reluctant to go to inpatient rehabilitation and states that he will manage this outpatient. He is voiding and eliminating without difficulty. He continues to have a good appetite. He is in bed most of the day and encouraged him to be up and ambulating which he is able to do independently. Continue working with physical therapy regarding bilateral shoulder pain. Exam Vital Signs (past 8 hours): - 05/12/18 08:00 Temperature 97.9 F Pulse Rate 90 Respiratory Rate 16 Blood Pressure 118/85 Pulse Oximetry 99 Oxygen Delivery Method Room Air Oxygen Flow Rate 0 Narrative Exam Narrative: General: Young man lying in bed and in no acute distress, mildly anxious, well- developed, well-nourished, appropriately interactive. HEENT: Normocephalic, atraumatic. External ears without defect. Pupils equal, round, and reactive to light. Anicteric sclerae, moist conjunctivae, and no lid lag. Neck: Supple with full range of motion. No lymphadenopathy or thyromegaly. Cardiovascular: Regular rate and rhythm without murmurs, rubs, or gallops appreciated. Pulmonary: Clear to auscultation bilaterally without crackles, wheezes, or rhonchi. Normal respiratory effort with no use of accessory muscles. Abdomen: Soft, bowel sounds present, no tenderness to palpation, nondistended. Hepatosplenomegaly appreciated. No masses appreciated. Extremities: No clubbing, cyanosis, or edema. Skin: Normal temperature, turgor, and texture; no rash, ulcers, or subcutaneous nodules appreciated. Neurological: Cranial nerves grossly intact. Psychiatric: Depressed mood, anxious, and flat affect. Alert and oriented x 3. Objective Labs Result Diagrams: 05/12/18 05:14 05/12/18 05:14 Labs: Laboratory Results - last 24 hr 05/12/18 05/12/18 05:14 05:14 WBC 3.2 L RBC 3.53 L Hgb 11.9 L Hct 35.8 L MCV 101.4 H MCH 33.8 MCHC 33.4 RDW 14.8 Plt Count 43 L Neut % (Auto) 57.5 Lymph % (Auto) 23.6 L [place] % (Auto) 16.9 H Eos % (Auto) 1.6 L Baso % (Auto) 0.4 Neut # (Auto) 1900 Lymph # (Auto) 800 L [place] # (Auto) 500 Eos # (Auto) 100 Baso # (Auto) 0 Sodium 135 L Potassium 4.3 Chloride 103 Carbon Dioxide 19 L BUN 17 Creatinine 1.20 Estimated GFR > 60.0 BUN/Creatinine Ratio 14.2 Glucose 333 H D Calcium 9.0 Total Bilirubin 0.5 AST 60 H ALT 65 Alkaline Phosphatase 83 Total Protein 6.5 Albumin 3.8 Globulin 2.7 Albumin/Globulin Ratio 1.4 Assessment & Plan Plan: Assessment/Plan Narrative: Lalo Han is a 42-year-old male with a past medical history significant for alcohol use disorder, diabetes mellitus type 1, and 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 1. Acute alcohol withdrawal, present on admission. Active. -Discontinued CIWA protocol. Continue slow librium taper. Decreased to 25 mg twice daily to start this evening (started at 75 mg twice daily). Continue to titrate to lowest possible maintenance dose to control alcohol withdraw and anxiety. -Continue protonix for abdominal pain. -Continue Folate, multivitamin, and thiamine. -Will replete electrolytes as needed. Received magnesium sulfate 2 g IV x1 and potassium chloride 40 mEq p.o. x1 as both were trending down and at low normal. 2. Acute abdominal pain, present on admission. Resolved. -Likely secondary to alcohol withdrawal. -Continue Protonix. -Abdominal ultrasound demonstrated cholelithiasis without signs of cholecystitis and echogenic liver indicative of fatty liver disease. 3. Thrombocytopenia, chronic, present on admission. Improving. -Likely related to alcoholic marrow suppression and Gleevec. -Abdominal ultrasound demonstrated fatty liver disease which was also demonstrated on a CT abdomen and pelvis previously. No cirrhotic changes and patient does not have cirrhosis yet. -Continue monitor platelets daily. 4. Transaminitis, acuity unknown but likely chronic, present on admission. Improving. -Secondary to alcohol use with AST to ALT ratio 2:1. -Recommend abstaining from alcohol indefinitely. Continue to monitor LFTs daily. 5. CML, present on admission. Presumed stable. -Longstanding history of CML on Gleevec. He is managed by Dr. Camarena of Oncology. -Continue Gleevec 300 mg daily. -Continue monitor CBC daily. 6. Chronic low back pain and shoulder pain, present on admission. Stable. -Patient reports this is a significant reason for his use of alcohol, as well as , other traumas that have occurred in his life. -Patient has history of heroin abuse and therefore will avoid opiates. -Patient believes his shoulder pain is due to influenza vaccination in which he acquired ?SIRVA?, however, pain is bilateral. Physical therapy evaluated patient's shoulders and specialized testing did not demonstrate any signs of ligamentous injury and ROM is intact. Continue PT and recommend outpatient PT. 7. Alcohol use disorder, present on admission. Active. -Encouraged participation in an intensive alcohol dependency program at the time of discharge for which patient refuses. -CONFERENCE SERVICES COORDINATOR provided resources for outpatient alcohol rehabilitation and treatment, as well as, behavioral health. 8. Diabetes mellitus type 1, insulin using, chronic, present on admission. Active. -Last hemoglobin A1c 7.3% 08/2017. Hemoglobin A1c 7.2% this admission. -Continue normal Lantus dose 20 units twice daily. -Increased correctional scale insulin to medium dose algorithm. -Continue carbohydrate consistent diet and decreased amount of carbohydrates as BG elevated. 9. History of bipolar disorder. -Patient believes this was an incorrect diagnosis. He is significantly depressed. -Recommended outpatient psychiatric evaluation to delineate true psychiatric diagnosis and appropriate treatment. Disposition: Likely to discharge home tomorrow on stable Librium dose with outpatient rehabilitation and treatment. Will plan to start Antabuse at time of discharge.
--- NOTE | 2018-05-12 13:11 | PT.IPTN ---
Current Diagnoses Chronic myeloid leukemia, BCR/ABL-positive, not having achieved remission (05/08/18) Leukemia, unspecified not having achieved remission (05/08/18) Other secondary thrombocytopenia (05/08/18) Thrombocytopenia, unspecified (05/08/18) Type 2 diabetes mellitus without complications (05/08/18) Alcohol dependence, uncomplicated (05/08/18) Alcohol dependence with withdrawal, uncomplicated (05/08/18) Alcohol dependence with withdrawal, unspecified (05/08/18) Other chronic pain (05/08/18) Alcoholic cirrhosis of liver without ascites (05/08/18) Low back pain (05/08/18) Unspecified abdominal pain (05/08/18) Adverse effect of unspecified drugs, medicaments and biological substances, initial encounter (05/08/18) 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 (05/08/18) Physical Therapy Treatment Note M2 PT-IP Current Condition Start: 05/11/18 16:54 Freq: NEEDED Status: Active Protocol: Document 05/11/18 15:19 AB (Rec: 05/11/18 17:16 AB [id number]) Physical Therapy Current Condition Current Condition Evaluation Date 05/11/18 Treatment Diagnosis alcohol withdrawal; difficulties in walking Onset Date 05/08/18 M3 PT-IP Subjective Start: 05/11/18 16:54 Freq: NEEDED Status: Active Protocol: Document 05/12/18 12:59 SA (Rec: 05/12/18 13:10 SA [id number]) Subjective Physical Therapy Visit Type Type Treatment Note Visit Start Time 12:35 Visit Stop Time 12:56 Total Visit Minutes 21 Notes Pt had just finished lunch and was agreeable to PT. Number of GUIDE ESCORT Visits 1 Physical Therapy Visit Comments Patient Comments Pt had c/o abdominal pain but states this usually happens after meals. Therapy Pain Assessment Pain When Pain Assessed At Rest Pain Present Pain Present Pain Reported Location Bilateral Shoulder Scale Used Pt could not quantify, abdominal pain but not shoulder pain. M4 PT-IP Mobility and Gait Start: 05/11/18 16:54 Freq: NEEDED Status: Active Protocol: Document 05/12/18 12:59 SA (Rec: 05/12/18 13:10 SA [id number]) PT-Bed Mobility Assessment Rolling Type of Rolling Roll to Right Level of Assist Standby Assistance Supine to Sit Supine to Sit Standby Assistance Sit to Supine Sit to Supine Standby Assistance Scooting Scooting to Edge of Bed Standby Assistance Scooting Up and Down in Bed Standby Assistance PT-Transfer Assessment Sit to and From Stand Sit to and from Stand Standby Assistance Equipment Transfer Assistive Device Gait Belt Orthotic/Prosthetic Devices or Brace: No Transfers Transfer Destination Bed Toilet Transfer Technique Stand Step Pivot Transfer Ability Level of Assist Contact Guard Assistance Comments Mobility Comments Pt had c/o dizziness with initial supine>sit transition but subsided, SBA-CGA with bed mobility and transfers, cues for safety. Gait Assessment Gait Gait Assistance Required: Contact Guard Assist Distance (Feet) 85 Able to Maintain Weight Bearing Status Yes During Gait Assistive Devices Assistive Device None Gait Belt Straight Cane Orthotic/Prosthetic Devices or Brace: No Gait Deviations General Gait Pattern Antalgic Ataxic Decreased Stride Length Decreased Feet Clearance Flexed Trunk Factors Limiting Gait Function Factors Limiting Gait Function Decreased Activity Tolerance Decreased Strength Difficulty Following Directions Limited Range of Motion Pain Poor Balance Poor Safety Awareness Comments Gait Comments Initial walk with no AD in room and in barton about 40 feet with CGA and pt seeming unsteady. 2nd walk with SPC and CGA, mod cues for sequencing and safety, about 45 feet. Pt actually did better without SPC as it seemed to require more sequencing and cues to use correctly and pt preferred not using it, also pt states using SPC aggrivates his shoulder. PT-Balance Assessment Sitting Balance and Reactions Static Sitting Balance Ability Good Dynamic Sitting Balance Ability Good Comments Other Balance Tests/Deviations/Treatment Standing static/dynamic : balance training at sink with pt side stepping and UE reaching x 4 min. No LOB but pt takes short, shuffling steps consistant with LE neuropathy. M5 PT-IP Objective Assessments Start: 05/11/18 16:54 Freq: NEEDED Status: Active Protocol: Document 05/11/18 15:19 AB (Rec: 05/11/18 17:16 AB [id number]) Orientation Orientation/Cognition Level of Alertness Alert Orientation Name Age Safety Awareness Decreased Safety Awareness Gross Range of Motion Upper Extremity ROM Assessment Bilaterally Impaired Impairments PROM: L shoulder flexion and abduction: 0-170 degrees R shoulder flexion and abduction: 0-150 deg Lower Extremity ROM Assessment Within Functional Limits Strength Upper Extremity Strength Assessment Bilaterally Impaired Shoulder 3+/5 Elbow 5/5 Lower Extremity Strength Assessment Within Functional Limits Sensation Assessment Sensation Gross Sensation WNL Muscle Tone Muscle Tone WNL Yes Other Assessments Other Other Assessments pt initially c/o R shoulder pain but when asked to move shoulders, stated that he has pain on both shoulders. stated that pain started last january when he got the flu shot. no tenderness during palpation AROM limited with c/o pain. completed PROM: increase guarding during movement and seems like pt is resisting movement especially on RUE with pt pushing down on PT hand. (pls refer to ROM for measurements). no swelling or edema noted. (-) drop arm test (-) lainez-chanel test (-) carl test pt has forward and and forward shoulder posture . M6 PT-IP Treatment Start: 05/11/18 16:54 Freq: NEEDED Status: Active Protocol: Document 05/12/18 12:59 SA (Rec: 05/12/18 13:10 [id number]) Physical Therapy Treatment Education Education Provided Safety M7 PT-IP Assessment and Plan Start: 05/11/18 16:54 Freq: NEEDED Status: Active Protocol: Document 05/12/18 12:59 SA (Rec: 05/12/18 13:10 [id number]) PT Summary Assessment and Plan Potential Rehabilitation Potential Fair Status of Condition at Evaluation Stable Frequency of Treatment Frequency Of Treatment Once a Day Recommendations To Nursing Amount of Assist Needed 1 Person Assist Discharge Recommendations PT Discharge Recommendations Home with Assistance
--- NOTE | 2018-05-12 13:18 | CM.SWNOTE ---
Addendum entered by YASMINE Johnston 05/13/18 15:52: DC today, home w/family. Pt's father stopped this MASON HELPER in the barton and asked about arranging an inpt rehab for pt? This MASON HELPER requested pt be included in this conversation. Once in room, this MASON HELPER reiterated that pt did not want inpt rehab and pt agreed. Then reiterated that [facility] was available for walk in appts Tuesdays and Wednesdays, first come, first serve so its encouraged to arrive at 0530. Pt understood and pt's mom/dad said they could get him there. JW Original Note: Discussed pt this morning in multi-disciplinary rounds. Dr Cruz asked if pt is going to inpt drug rehab ? vs home w/outpt f/u. Pt ready to DC the hospital tomorrow, Wednesday. Met w/pt today and reviewed what he wants for his DC(?) Pt explained he has been to numerous drug rehab facilities and he states I get mad I'm there, leave, and start drinking again. Pt reiterates to this MASON HELPER that he wants to DC home, not inpt rehab. Pt states he is willing to go to an outpt appt. This MASON HELPER suggested [facility] because they have drop in appt days Tuesdays and Wednesdays and can establish him w/a counselor and discuss medication assisted treatment. Pt says he can get a ride. Reviewed above w/Dr Cruz. Pt will most likely be DC Wednesday, home. Following closely in case addtl. needs arise or plans change. YASMINE Johnston
--- NOTE | 2018-05-12 14:17 | PC.NURSE ---
Pt is A&Ox3 today, BS 280s this morning and 7u of novolog given with 20u of lantus. Pt was on the high dose insulin algorithm, and gave order to put patient on a medium algorithm which has been done. BS 134 at lunch and pt refused his insulin, he states that he does not take insulin if bs is below 150. Given 1 sugar free vanilla ice cream. Pt had a shower today, and walked with pt. Pt unsteady on his feet and needs to use a walker , bed alarm is still on and pt is resting comfortably.
[2018-05-12 15:20] VITALS: BP 115/81; PULSE 94; RESP 17; TEMP 36.7; O2SAT 99
[2018-05-12] MEDS: NICOTINE 14 PATCH 14 MG TOP (16:38)
[2018-05-12] MEDS: HALOPERIDOL 5 MG/ML VIAL 2 MG IV (20:04)
[2018-05-12 20:05] VITALS: BP 124/99; PULSE 86; RESP 18; TEMP 36.7; O2SAT 99
[2018-05-12] MEDS: chlordiazePOXIDE 25 MG CAPSULE PO (20:16)
[2018-05-12] MEDS: MELATONIN 3 MG TABLET 6 MG PO (20:16)
[2018-05-12 23:40] VITALS: BP 117/84; PULSE 92; RESP 18; TEMP 36.4
[2018-05-13 04:50] VITALS: BP 102/60; PULSE 80; RESP 16; TEMP 37.1; O2SAT 95
[2018-05-13 06:10] LABS: Add Manual Diff / Slide Review NO; Basophils Absolute Auto 0 /uL (0-100); Basophils Percent Auto 0.4 % (0-2); Eosinophils Absolute Auto 0 /uL (0-450); Eosinophils Percent Auto 0.9 % (2-4); Hematocrit 35.8 % (41-53); Hemoglobin 12.2 g/dL (13.5-17.5); Lymphocytes Absolute Auto 900 /uL (1100-4500); Mean Corpuscular HGB Conc 34.1 % (30-36); Mean Corpuscular Volume 99.8 fL (80-100); Monocytes Absolute Auto 700 /uL (0-900); Monocytes Percent Auto 17.6 % (3-14); Neutrophils Absolute Auto 2500 /uL (1500-7000); Neutrophils Percent Auto 60.1 % (50-75); Platelet Count 51 X10^3/uL (150-400); Red Blood Cell Count 3.58 X10^6/uL (4.5-5.9); Red Cell Distribution Width 14.8 % (11.6-14.8); White Blood Cell Count 4.1 X10^3/uL (4.5-11.0)
[2018-05-13 06:24] LABS: Alanine Aminotransferase 55 IU/L (21-72); Albumin 3.8 g/dL (3.5-5.0); Albumin Globulin Ratio 1.3 (1.0-2.8); Alkaline Phosphatase 80 U/L (38-126); Aspartate Aminotransferase 41 IU/L (17-59); BUN Creatinine Ratio 18.2 (6-22); Bilirubin Total 0.5 mg/dL (0.2-1.3); Blood Urea Nitrogen 20 mg/dL (9-20); Calcium 9.2 mg/dL (8.4-10.2); Carbon Dioxide 19 mmol/L (22-32); Chloride 105 mmol/L (98-107); Estimated Glomerular Filt Rate > 60.0 mL/min (>60); Glucose 234 mg/dL (70-100); HEMOLYSIS < 15 (0-50); Potassium 4.2 mmol/L (3.4-5.1); Sodium 136 mmol/L (137-145); Total Protein 6.8 g/dL (6.3-8.2)
[2018-05-13 08:00] VITALS: BP 115/84; PULSE 99; RESP 20; TEMP 36.3; O2SAT 98
[2018-05-13] MEDS: FOLIC ACID 1 MG TABLET PO (08:41)
[2018-05-13] MEDS: ENOXAPARIN 40 MG/0.4 ML SYRINGE SUBCUT (08:41)
[2018-05-13] MEDS: chlordiazePOXIDE 25 MG CAPSULE PO (08:41)
[2018-05-13] MEDS: MULTIVITAMIN 1 TABLET 1 TAB PO (08:42)
[2018-05-13] MEDS: INSULIN ASPART 100 UNIT/ML INSULN PEN SUBCUT ×2 (08:43→12:47)
[2018-05-13] MEDS: INSULIN GLARGINE 100 UNIT/ML 3ML PEN 20 UNIT SUBCUT (08:43)
[2018-05-13] MEDS: PANTOPRAZOLE 40 MG VIAL IV (08:44)
[2018-05-13] MEDS: ACETAMINOPHEN 325 MG TABLET 650 MG PO (08:46)
--- NOTE | 2018-05-13 11:01 | PM.DS.1 ---
History of Present Illness Chief complaint: stomach pain, unable to eat for a week, vomiting Narrative: This is a 42-year-old male with a history of type 1 insulin-dependent diabetes and alcoholism. He also has CML, currently treated with Gleevec. He is heavily sedated when I see him and so much of the historical details below are reported from the initial ED interview with him. He apparently was able to stop his alcohol intake for extended period time, then returning to his daily alcohol use last February, and then experiencing alcohol withdrawal currently. It is not clear what prompted the alcohol withdrawal, whether it was a decision he made or his other illnesses lead to that. Apparently his last drink was at 8:00 p.m. yesterday and his level today is 81. He says he drinks 6 beers a day. His blood sugars are in the 200-300 range and there are no other laboratory confirmatory signs of DKA. He did not complain of abdominal pain to me but the ICU nurse reports that he did mention abdominal pain to her. His lipase level was normal. There is no abdominal tenderness. His platelets are chronically low most recently 59 but now down to 39. This is thought to be either from bone marrow suppression of alcohol use or his Gleevec use. He has had the CML for 12 years. He initially tells me that he does not have a primary care physician but when I asked who prescribes his insulin he mentions Dr. Willingham. He smokes marijuana but denies smoking cigarettes. 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 Because of his complicated medical issues, including the potential for DKA, he is admitted for alcohol withdrawal treatment. Discharge Providers Date of admission: 05/08/18 08:54 Primary care physician: Madalyn Willingham DO Consults: 05/08/18 09:12 Consult to Dietitian, Adult Routine Comment: Reason For Exam: Malnourishment 05/08/18 11:38 Consult to Dietitian, Adult Routine Comment: Reason For Exam: assessed at risk Consult to Web Site Project Manager Routine Comment: 05/11/18 12:03 Consult to Physical Therapy Evaluate & Treat Comment: Right shoulder pain evaluation Physician Instructions: Evaluate and Treat Discharge provider: Yaneth Benson MD Discharge Date: 05/13/18 Summary Hospital Course: 1. Acute alcohol withdrawal, present on admission. Active. -completed alcohol withdrawal [facility] protocol. Continue low-dose Librium for few more days at home. -given protonix for abdominal pain. -treated with Folate, multivitamin, and thiamine. -Received magnesium sulfate 2 g IV x1 and potassium chloride 40 mEq p.o. x1 as both were trending down and at low normal. 2. Acute abdominal pain, present on admission. Resolved. -Likely secondary to alcohol withdrawal. -treated with Protonix. -Abdominal ultrasound demonstrated cholelithiasis without signs of cholecystitis and echogenic liver indicative of fatty liver disease. 3. Thrombocytopenia, chronic, present on admission. Improving. -Likely related to alcoholic marrow suppression and Gleevec. -Abdominal ultrasound demonstrated fatty liver disease which was also demonstrated on a CT abdomen and pelvis previously. No cirrhotic changes and patient does not have cirrhosis yet. -Continue monitor platelets daily. 4. Transaminitis, acuity unknown but likely chronic, present on admission. Improving. -Secondary to alcohol use with AST to ALT ratio 2:1. -Recommend abstaining from alcohol indefinitely. Continue to monitor LFTs daily. 5. CML, present on admission. Presumed stable. -Longstanding history of CML on Gleevec. He is managed by Dr. Camarena of Oncology. -Continue Gleevec 300 mg daily. 6. Chronic low back pain and shoulder pain, present on admission. Stable. -Patient reports this is a significant reason for his use of alcohol, as well as, other traumas that have occurred in his life. -Patient has history of heroin abuse and therefore will avoid opiates. -Patient believes his shoulder pain is due to influenza vaccination in which he acquired ?SIRVA?, however, pain is bilateral. Physical therapy evaluated patient's shoulders and specialized testing did not demonstrate any signs of ligamentous injury and ROM is intact. Continue PT at home. 7. Alcohol use disorder, present on admission. Active. -Encouraged participation in an intensive alcohol dependency program at the time of discharge for which he now seems to agree. -BIOSTATISTICS PROFESSOR provided resources for outpatient alcohol rehabilitation and treatment, as well as, behavioral health. -he feels that he will be able to abstain from alcohol with Antabuse and so that prescription is provided. 8. Diabetes mellitus type 1, insulin using, chronic, present on admission. Active. -Last hemoglobin A1c 7.3% 08/2017. Hemoglobin A1c 7.2% this admission. -Continue normal Lantus dose 20 units twice daily. -Continue carbohydrate consistent diet and decreased amount of carbohydrates as BG elevated. 9. History of bipolar disorder. -Patient believes this was an incorrect diagnosis. He is significantly depressed. -Recommended outpatient psychiatric evaluation to delineate true psychiatric diagnosis and appropriate treatment. Status at Discharge Functional status at discharge: independent ambulation Time Spent with Patient Greater than 30 minutes Exam Vital Signs (past 8 hours): - 05/13/18 04:50 05/13/18 08:00 Temperature 98.7 F 97.4 F L Pulse Rate 80 99 H Respiratory Rate 16 20 Blood Pressure 102/60 115/84 Pulse Oximetry 95 98 Oxygen Delivery Method Room Air Oxygen Flow Rate 0 Narrative Exam Narrative: He is alert and oriented x3. No signs of alcohol withdrawal. No tremors. Heart is regular rate and rhythm without murmur. Lungs are clear to auscultation bilaterally. Abdomen is soft, bowel sounds positive, nontender, no organomegaly. Extremities have no ankle edema. Objective Labs Result Diagrams: 05/13/18 04:46 05/13/18 04:46 Labs: Laboratory Results - last 24 hr 05/13/18 05/13/18 04:46 04:46 WBC 4.1 L RBC 3.58 L Hgb 12.2 L Hct 35.8 L MCV 99.8 MCH 34.0 MCHC 34.1 RDW 14.8 Plt Count 51 L Neut % (Auto) 60.1 Lymph % (Auto) 21.0 L [place] % (Auto) 17.6 H Eos % (Auto) 0.9 L Baso % (Auto) 0.4 Neut # (Auto) 2500 Lymph # (Auto) 900 L [place] # (Auto) 700 Eos # (Auto) 0 Baso # (Auto) 0 Sodium 136 L Potassium 4.2 Chloride 105 Carbon Dioxide 19 L BUN 20 Creatinine 1.10 Estimated GFR > 60.0 BUN/Creatinine Ratio 18.2 Glucose 234 H Calcium 9.2 Total Bilirubin 0.5 AST 41 ALT 55 Alkaline Phosphatase 80 Total Protein 6.8 Albumin 3.8 Globulin 3.0 Albumin/Globulin Ratio 1.3 Discharge Plan Discharge Plan Patient Disposition: Home Discharge comment: Follow up with the [facility] for chemical dependency treatment. Discharge Med Rec/Prescriptions Prescriptions: New chlordiazepoxide HCl 25 mg Capsule 25 mg PO BID Qty: 14 RF: 0 disulfiram [Antabuse] 250 mg tablet 250 mg PO DAILY Qty: 30 RF: 0 Continue insulin lispro [Humalog KwikPen Insulin] 100 UNIT/1 ML insulin pen 1 - 12 unit SQ TIDCC Qty: 1 RF: 3 insulin glargine [Lantus Solostar U-100 Insulin] 100 unit/mL (3 mL) insulin pen 20 unit SUBCUT BID Qty: 15 RF: 1 True Metrix test strips strip .Route .MEDSUPPLY RF: 0 [place] 1 ea miscellaneous DIRECTED RF: 0 Syringes 1 syr miscellaneous DIRECTED RF: 0 imatinib [Gleevec] 100 MG tablet 300 mg PO QPM RF: 0 Follow up/Referrals: Madalyn Willingham DO [Primary Care Provider] - 1 Week ([facility] medicine will be calling you on wednesday to arrange a follow up appointment [phone]) Provider Discharge Instructions Diet: Diet as Tolerated Diet comment: Abstain from alcohol indefinitely Other treatments: PT referral for b/l shoulder pain. Visit Report/Discharge Packet Instructions: DI for Alcohol Abuse, Chlordiazepoxide, Disulfiram Visit Report Forms: Stroke Signs & Symptoms Discharge Data Primary Care Provider: Madalyn Willingham Attending Provider: Yaneth Benson Admit Date/Time: 05/08/18 08:54 Discharges patient from system. Discharge Date/Time: 05/13/18 13:28
--- NOTE | 2018-05-13 11:03 | PT.IPTN ---
Current Diagnoses Chronic myeloid leukemia, BCR/ABL-positive, not having achieved remission (05/08/18) Leukemia, unspecified not having achieved remission (05/08/18) Other secondary thrombocytopenia (05/08/18) Thrombocytopenia, unspecified (05/08/18) Type 2 diabetes mellitus without complications (05/08/18) Alcohol dependence, uncomplicated (05/08/18) Alcohol dependence with withdrawal, uncomplicated (05/08/18) Alcohol dependence with withdrawal, unspecified (05/08/18) Other chronic pain (05/08/18) Alcoholic cirrhosis of liver without ascites (05/08/18) Low back pain (05/08/18) Unspecified abdominal pain (05/08/18) Adverse effect of unspecified drugs, medicaments and biological substances, initial encounter (05/08/18) 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 (05/08/18) Physical Therapy Treatment Note M2 PT-IP Current Condition Start: 05/11/18 16:54 Freq: NEEDED Status: Active Protocol: Document 05/11/18 15:19 AB (Rec: 05/11/18 17:16 AB [id number]) Physical Therapy Current Condition Current Condition Evaluation Date 05/11/18 Treatment Diagnosis alcohol withdrawal; difficulties in walking Onset Date 05/08/18 M3 PT-IP Subjective Start: 05/11/18 16:54 Freq: NEEDED Status: Active Protocol: Document 05/13/18 11:03 AB (Rec: 05/13/18 12:11 AB [email or web address]) Subjective Physical Therapy Visit Type Type Treatment Note Visit Start Time 11:03 Visit Stop Time 11:35 Total Visit Minutes 32 Number of FLEET DRIVER Visits 0 Physical Therapy Visit Comments Patient Comments pt agreeable to do PT Therapy Pain Assessment Pain When Pain Assessed At Rest Pain Present Pain Present Pain Reported Location Bilateral Shoulder Scale Used pain scale not stated M4 PT-IP Mobility and Gait Start: 05/11/18 16:54 Freq: NEEDED Status: Active Protocol: Document 05/13/18 11:03 AB (Rec: 05/13/18 12:11 AB [email or web address]) PT-Bed Mobility Assessment Supine to Sit Supine to Sit Independent Sit to Supine Sit to Supine Independent PT-Transfer Assessment Sit to and From Stand Sit to and from Stand Standby Assistance Equipment Transfer Assistive Device None Gait Belt Orthotic/Prosthetic Devices or Brace: No Gait Assessment Gait Gait Assistance Required: Standby Assistance Contact Guard Assist Distance (Feet) 250 Able to Maintain Weight Bearing Status Yes During Gait Assistive Devices Assistive Device None Gait Belt Orthotic/Prosthetic Devices or Brace: No Gait Deviations General Gait Pattern Ataxic Factors Limiting Gait Function Factors Limiting Gait Function Decreased Activity Tolerance Decreased Strength Incoordination Limited Range of Motion Pain Poor Balance Poor Safety Awareness Comments Gait Comments pt completed ambulation in hallway ~ 250 ft requiring SBA to occasional CGA. pt presents with unsteady ataxic gait but with no LOB. pt with forward trunk posture and stated that he had previous 3 broken vertebra. M5 PT-IP Objective Assessments Start: 05/11/18 16:54 Freq: NEEDED Status: Active Protocol: Document 05/11/18 15:19 AB (Rec: 05/11/18 17:16 AB [id number]) Orientation Orientation/Cognition Level of Alertness Alert Orientation Name Age Safety Awareness Decreased Safety Awareness Gross Range of Motion Upper Extremity ROM Assessment Bilaterally Impaired Impairments PROM: L shoulder flexion and abduction: 0-170 degrees R shoulder flexion and abduction: 0-150 deg Lower Extremity ROM Assessment Within Functional Limits Strength Upper Extremity Strength Assessment Bilaterally Impaired Shoulder 3+/5 Elbow 5/5 Lower Extremity Strength Assessment Within Functional Limits Sensation Assessment Sensation Gross Sensation WNL Muscle Tone Muscle Tone WNL Yes Other Assessments Other Other Assessments pt initially c/o R shoulder pain but when asked to move shoulders, stated that he has pain on both shoulders. stated that pain started last january when he got the flu shot. no tenderness during palpation AROM limited with c/o pain. completed PROM: increase guarding during movement and seems like pt is resisting movement especially on RUE with pt pushing down on PT hand. (pls refer to ROM for measurements). no swelling or edema noted. (-) drop arm test (-) lainez-chanel test (-) carl test pt has forward and and forward shoulder posture . M6 PT-IP Treatment Start: 05/11/18 16:54 Freq: NEEDED Status: Active Protocol: Document 05/13/18 11:03 AB (Rec: 05/13/18 12:11 AB [email or web address]) Physical Therapy Treatment Exercises Exercises Shoulder Flexion Education Education Provided Safety Other Treatments Other Treatment Performed pt educated on shoulder ROM. HEP given and reviewed with pt . pt completed bilateral shoulder flexion/ abduction, scap retraction exercises. M7 PT-IP Assessment and Plan Start: 05/11/18 16:54 Freq: NEEDED Status: Active Protocol: Document 05/13/18 11:03 AB (Rec: 05/13/18 12:11 AB [email or web address]) PT Summary Assessment and Plan Potential Rehabilitation Potential Fair Summary Impairments Pain ROM Strength Balance Coordination Sensation Tone Cognition Bed Mobility Transfers Gait Activity Tolerance Assessment Summary pt requiring SBA to CGA with ambulation and may go home with assist. pt stated that his parents will be able to assist him. Goals Bed Mobility Goal Independent Transfer Goal Independent Gait Goal Independent Gait Distance 300 Days to Meet Goals 3 Frequency of Treatment Frequency Of Treatment Once a Day Treatment Plan Physical Therapy Treatment Plan Bed Mobility Training Transfer Training Gait Training Therapeutic Exercise Balance Retraining Discharge Planning Hot or Cold Pack Neuromuscular Re-ed Coordination Retraining Manual Therapy Other Recommendations and Next Treatment ambulation using SPC/without Focus AD (safest least restrictive AD), standing balance assessment and training Recommendations To Nursing Amount of Assist Needed 1 Person Assist Discharge Recommendations PT Discharge Recommendations Home with Assistance
== END 2018-05-13 13:28 | disposition home or self-care (01) | DRG 775 ==
LOC: ED 08:46 → AC 08:54 → ICU 05-09 10:47 → AC 05-11 11:15 → ICU 03-28 07:39 → AC 03-28 07:39
PROVIDERS: Internal Medicine; Nurse Practitioner Adult Health; Admitting Provider Family Medicine; Emergency Provider Emergency Medicine; Family Provider Family Medicine; PCP Family Medicine; Visit Provider Family Medicine
DX: F10.230 Alcohol dependence with withdrawal, uncomplicated (principal); C92.10 Chronic myeloid leukemia, BCR/ABL-positive, not having achieved remission; D69.59 Other secondary thrombocytopenia; E10.65 Type 1 diabetes mellitus with hyperglycemia; K70.30 Alcoholic cirrhosis of liver without ascites; T45.1X5A Adverse effect of antineoplastic and immunosuppressive drugs, initial encounter; Z79.4 Long term (current) use of insulin; Z87.891 Personal history of nicotine dependence; G89.29 Other chronic pain
CPT/HCPCS: 36415; 36591; 76700; 80053; 80320; 80329; 82009; 82962; 83036; 83690; 83735; 84100; 84145; 85025; 85610; 85730; 87797; 94762; 96361; 96365; 96366; 96375; 96376; 97110; 97116; 97161; 97530; 99283; 99284; C9113; G0480; J1630; J1650; J2060; J2405; J3475

== ENCOUNTER → 2018-06-27 16:09 | Outpatient (CLI) | payer OTHER, MEDICAID, SELFPAY ==
[2018-05-08 11:00] VITALS: BMI 20.6
== END ==
PROVIDERS: Family Provider Family Medicine; PCP Family Medicine
DX: C92.10 Chronic myeloid leukemia, BCR/ABL-positive, not having achieved remission (principal)
CPT/HCPCS: 80053; 85025

== ENCOUNTER → 2018-08-01 08:56 | Outpatient (CLI) | payer OTHER, MEDICAID, SELFPAY ==
[2018-05-08 11:00] VITALS: BMI 20.6
--- NOTE | 2018-08-01 | DI.US.S_ITS ---
LIMITED ULTRASOUND OF RIGHT BREAST: 08/01/2018 CLINICAL: Palpable right breast lump. [facility] and Doppler ultrasound of the right breast retroareolar were performed. Patino scale images of the real-time examination were reviewed. Targeted ultrasound was performed in the region of the patient's and patient's referring providers focal palpable abnormality in the right retroareolar region. There is hypoechoic lobulated retroareolar glandular tissue consistent with gynecomastia, which demonstrates parallel orientation and no internal vascularity on Doppler ultrasound. No other underlying breast mass or abnormality is identified in the area of concern. This correlates with findings seen on comparison mammography. IMPRESSION: BENIGN 1) Right retroareolar gynecomastia, which correlates with the patient and patient's referring provider's palpable abnormality in the right retroareolar region. Recommend clinical follow-up for further evaluation and management of this finding and the patient's reported symptoms. 2) There is no sonographic evidence of malignancy in the imaged right breast/chest. The patient is advised to monitor his breasts/chest and to return for re-evaluation should he or his clinical providers feel anything grow or change. This exam was interpreted at Station ID: [id number]. Electronically Signed By: Gabe Valle M.D. ecl/:08/01/2018 10:44:09 copy to: MARK LAWLER letter sent: Clinical Evaluation Ultrasound BI-RADS: 2 Benign
--- NOTE | 2018-08-01 08:58 | DI.MG.S_ITS ---
MALE BILATERAL DIGITAL DIAGNOSTIC MAMMOGRAM 3D/2D: 08/01/2018 CLINICAL: Right breast lump. No prior exams were available for comparison. There is a triangular marker overlying the periareolar skin of the right breast adjacent to the nipple at the site of the patient's and patient's referring provider's reported palpable retroareolar abnormality. There is right greater than left retroareolar glandular tissue consistent with gynecomastia. No convincing right breast mass is identified mammographically. No significant masses or abnormalities are seen in either breast. IMPRESSION: INCOMPLETE: NEEDS ADDITIONAL IMAGING EVALUATION Right greater than left retroareolar gynecomastia, with the right retroareolar gynecomastia correlating with the site of patient's and patient's referring provider's palpable concern. Targeted diagnostic right retroareolar ultrasound recommended for further evaluation, which will be performed immediately following this exam. This exam was interpreted at Station ID: [id number]. NOTE: For mammograms, a report in lay terms will be sent to the patient. Approximately 15% of breast malignancies will not be visualized mammographically. In the management of a palpable breast mass, a negative mammogram must not discourage biopsy of a clinically suspicious lesion. Electronically Signed By: Gabe Valle M.D. ecl/:08/01/2018 10:03:03 copy to: [facility]ADS Category 0: Incomplete [id number]
== END ==
PROVIDERS: PCP Family Medicine; Visit Provider Family Medicine
DX: N63.41 Unspecified lump in right breast, subareolar (principal); N62 Hypertrophy of breast
CPT/HCPCS: 76642; 77066; G0279

== ENCOUNTER → 2018-08-03 07:48 | Outpatient (CLI) | payer OTHER, MEDICAID, SELFPAY ==
[2018-05-08 11:00] VITALS: BMI 20.6
[2018-08-03 08:34] LABS: Basophils Absolute Auto 0 /uL (0-100); Basophils Percent Auto 0.4 % (0-2); Eosinophils Absolute Auto 100 /uL (0-450); Eosinophils Percent Auto 1.8 % (2-4); Hemoglobin 12.1 g/dL (13.5-17.5); Lymphocytes Absolute Auto 600 /uL (1100-4500); Lymphocytes Percent Auto 16.2 % (25-40); Mean Corpuscular HGB Conc 33.6 % (30-36); Mean Corpuscular Hemoglobin 31.2 PG (26-34); Mean Corpuscular Volume 92.9 fL (80-100); Monocytes Absolute Auto 300 /uL (0-900); Monocytes Percent Auto 8.2 % (3-14); Neutrophils Absolute Auto 2700 /uL (1500-7000); Neutrophils Percent Auto 73.4 % (50-75); Platelet Count 48 X10^3/uL (150-400); Red Blood Cell Count 3.88 X10^6/uL (4.5-5.9); Red Cell Distribution Width 15.2 % (11.6-14.8); White Blood Cell Count 3.7 X10^3/uL (4.5-11.0)
[2018-08-03 08:37] LABS: Add Manual Diff / Slide Review SLIDE REVIEW
[2018-08-03 08:47] LABS: Alanine Aminotransferase 34 IU/L (21-72); Albumin 4.2 g/dL (3.5-5.0); Albumin Globulin Ratio 1.6 (1.0-2.8); Alkaline Phosphatase 111 U/L (38-126); Aspartate Aminotransferase 30 IU/L (17-59); Bilirubin Total 0.4 mg/dL (0.2-1.3); Blood Urea Nitrogen 15 mg/dL (9-20); Calcium 8.7 mg/dL (8.4-10.2); Carbon Dioxide 19 mmol/L (22-32); Chloride 105 mmol/L (98-107); Estimated Glomerular Filt Rate > 60.0 mL/min (>60); Globulin 2.7 g/dL (1.7-4.1); Glucose 349 mg/dL (70-100); HEMOLYSIS < 15 (0-50); Potassium 4.6 mmol/L (3.4-5.1); Sodium 136 mmol/L (137-145); Total Protein 6.9 g/dL (6.3-8.2)
[2018-08-03 08:50] LABS: Hemoglobin A1C% w Est Avg Glu 9.5 % (4.0-6.0)
[2018-08-03 08:54] LABS: Platelet Estimate Decreased on smear; Platelet Morphology Comment NOTE; RBC Morphology Normal Morphology
[2018-08-03 09:16] LABS: Cholesterol 104 mg/dL (140-199); HDL Cholesterol 46 mg/dL (40-60); LDL Cholesterol Calculated 45 mg/dL (<100); Triglycerides 63 mg/dL (35-150)
[2018-08-03 09:56] LABS: Creatinine Urine Random 14.4 mg/dL
[2018-08-03 10:02] LABS: Microalbumi Creatinin Ratio Ur 41.6 ug/mg CR (<30); Microalbumin Urine Random < 0.6 mg/dL (0-1.6)
== END ==
PROVIDERS: PCP Family Medicine; Visit Provider Family Medicine
DX: E11.65 Type 2 diabetes mellitus with hyperglycemia (principal); C92.10 Chronic myeloid leukemia, BCR/ABL-positive, not having achieved remission
CPT/HCPCS: 36415; 80053; 80061; 82043; 82570; 83036; 85025

== ENCOUNTER 2018-09-08 10:19 | Emergency (ER) | payer OTHER, MEDICAID, SELFPAY ==
[2018-05-08 11:00] VITALS: BMI 20.6
--- NOTE | 2018-09-08 10:21 | DI.RAD.S_ITS ---
PROCEDURE: XR HAND RT MIN 3V INDICATIONS: injury, pain TECHNIQUE: 3 views of the hand(s) acquired. COMPARISON: None. FINDINGS: Bones: Mildly angulated distal 5th metacarpal fracture. Carpal bones are normally aligned. No suspicious bony lesions. Soft tissues: No suspicious soft tissue calcifications. IMPRESSION: Mildly angulated distal 5th metacarpal fracture. Dictated by: Crissy Martinez M.D. on 09/08/2018 at 10:40 Approved by: Crissy Martinez M.D. on 09/08/2018 at 10:42
[2018-09-08 10:26] VITALS: BMI 23.3
[2018-09-08 10:30] VITALS: BP 134/78; PULSE 91; O2SAT 98
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
[2018-09-08 11:41] VITALS: BP 151/94; PULSE 81; RESP 18; O2SAT 100
== END 2018-09-08 11:53 | disposition home or self-care (01) ==
PROVIDERS: Emergency Provider Emergency Medicine; PCP Family Medicine
DX: S62.366A Nondisplaced fracture of neck of fifth metacarpal bone, right hand, initial encounter for closed fracture (principal); W23.0XXA Caught, crushed, jammed, or pinched between moving objects, initial encounter
CPT/HCPCS: 29125; 73130; 99283

== ENCOUNTER → 2018-09-21 11:07 | Outpatient (CLI) | payer OTHER, SELFPAY ==
[2018-05-08 11:00] VITALS: BMI 20.6
[2018-09-21 12:02] LABS: Add Manual Diff / Slide Review NO; Basophils Absolute Auto 0 /uL (0-100); Basophils Percent Auto 0.1 % (0-2); Eosinophils Absolute Auto 100 /uL (0-450); Eosinophils Percent Auto 0.9 % (2-4); Hematocrit 35.7 % (41-53); Hemoglobin 12.3 g/dL (13.5-17.5); Lymphocytes Absolute Auto 500 /uL (1100-4500); Lymphocytes Percent Auto 8.9 % (25-40); Mean Corpuscular HGB Conc 34.3 % (30-36); Mean Corpuscular Hemoglobin 32.2 PG (26-34); Monocytes Absolute Auto 400 /uL (0-900); Monocytes Percent Auto 6.8 % (3-14); Neutrophils Absolute Auto 5000 /uL (1500-7000); Neutrophils Percent Auto 83.3 % (50-75); Platelet Count 72 X10^3/uL (150-400); Red Cell Distribution Width 15.5 % (11.6-14.8); White Blood Cell Count 6.1 X10^3/uL (4.5-11.0)
[2018-09-21 13:05] LABS: Alanine Aminotransferase 27 IU/L (21-72); Albumin Globulin Ratio 1.6 (1.0-2.8); Alkaline Phosphatase 143 U/L (38-126); Aspartate Aminotransferase 23 IU/L (17-59); Bilirubin Total 0.7 mg/dL (0.2-1.3); Blood Urea Nitrogen 6 mg/dL (9-20); Calcium 8.8 mg/dL (8.4-10.2); Carbon Dioxide 24 mmol/L (22-32); Chloride 102 mmol/L (98-107); Estimated Glomerular Filt Rate > 60.0 mL/min (>60); Globulin 2.5 g/dL (1.7-4.1); Glucose 285 mg/dL (70-100); HEMOLYSIS < 15 (0-50); Potassium 4.2 mmol/L (3.4-5.1); Sodium 138 mmol/L (137-145); Total Protein 6.5 g/dL (6.3-8.2)
== END ==
PROVIDERS: Family Provider Family Medicine; PCP Family Medicine
DX: C92.10 Chronic myeloid leukemia, BCR/ABL-positive, not having achieved remission (principal)
CPT/HCPCS: 36415; 80053; 85025

== ENCOUNTER 2018-10-06 00:37 | Emergency (ER) | payer OTHER, MEDICAID, SELFPAY ==
[2018-05-08 11:00] VITALS: BMI 20.6
[2018-10-06 00:40] VITALS: BP 154/95; PULSE 102; RESP 18; TEMP 36.8; O2SAT 100; BMI 22.4
--- NOTE | 2018-10-06 01:02 | ED_ITS ---
HPI - Anxiety General Chief Complaint: Abdominal Pain Stated Complaint: vomiting x1 week/stomach pain Time Seen by Provider: 10/06/18 00:45 Source: patient and old records reviewed Mode of arrival: ambulatory Limitations: no limitations History of Present Illness HPI narrative: This is a 42-year-old male who comes in with complaint of anxiety as well as vomiting and stomach discomfort. Patient states that he has had persistent vomiting while he has been on his Gleevac. This is for his CML. While he has been in remission. He states that he does take lorazepam for it typically in the morning. Patient states that he had several episodes this morning but has not had any episodes this evening. He states that he feels like he is having a panic and feels very shaky. He denies any fevers, no chills. He states he does sometimes get sweats. He denies any chest pain or current shortness of breath patient states that does not have any abdominal pain currently but does earlier. Patient denies any changes with bowel movements and states they have been regular. He denies any back or bloody stools. He states he has been urinating. Patient states he has not had any other medication changes. He states he has been told he has to deal with the side effects to prevent his cancer from returning. Related Data Home Medications Medication Instructions Recorded Confirmed Syringes 1 syr MISCELLANEOUS DIRECTED 11/10/17 09/21/18 imatinib [Gleevec] 300 mg PO QPM 12/16/17 09/21/18 True Metrix test strips 0 strip .ROUTE .MEDSUPPLY 04/06/18 09/21/18 Previous Rx's Medication Instructions Recorded disulfiram 250 mg tablet 250 mg PO DAILY #30 tab 05/30/18 BD U/F Hilda Pen Needle [id number] #100 each 06/13/18 insulin lispro (U- 100) 100 1 - 12 unit SUBCUT TIDCC #1 ea 06/13/18 unit/mL subcutaneous pen ondansetron 4 mg disintegrating 4 mg PO QID PRN #30 tab 07/15/18 tablet meloxicam 15 mg tablet 15 mg PO DAILY #30 tab 07/29/18 insulin glargine (U-100) 100 25 unit SUBCUT BID #15 ml 08/02/18 unit/mL (3 mL) subcutaneous pen acetaminophen-codeine 1 tab PO Q6H PRN #10 tab 09/08/18 [Tylenol-Codeine #3] lorazepam 1 mg PO BID 30 Days #60 tab 09/21/18 prochlorperazine maleate 10 mg PO Q6H PRN #30 tab 10/04/18 [Compazine] Allergies Allergy/AdvReac Type Severity Reaction Status Date / Time Penicillins [PENICILLINS] Allergy Severe Tongue Verified 07/29/18 08:07 swelling, hives adhesive Allergy Unknown PLASTIC Verified 07/29/18 08:07 TAPE latex [LATEX] Allergy Unknown Verified 07/29/18 08:07 Review of Systems Review of Systems ROS Unobtainable: All systems reviewed & are unremarkable except as noted in HPI and below Constitutional Denies chills, Reports excessive sweating (Occurred sometime), Denies fever(s), Denies headache(s), Denies lethargy and Denies weakness ENT Ears, Nose, Mouth, and Throat: Denies headache(s) Cardiovascular Denies chest pain, Reports diaphoresis, Denies syncope, Denies edema, Denies irregular heart rhythm, Denies lightheadedness, Denies palpitations, Denies dyspnea and Denies orthopnea Respiratory Denies chest congestion, Denies cough, Denies excessive phlegm production, Denies pain on inspiration, Denies dyspnea and Denies wheezing Gastrointestinal Gastrointestinal: Denies abdominal pain, Denies melena, Denies hematochezia, Denies change in bowel habits, Denies diarrhea, Reports nausea and Reports vomiting Genitourinary Denies hematuria, Denies dysuria, Denies flank pain, Denies urinary incontinence, Denies urinary urgency and Denies other (Decreased urine output) Integumentary/Breasts Denies rash Neurologic Denies syncope, Denies headache(s), Denies focal weakness, Denies paresthesias and Denies weakness Psychiatric Reports anxiety, Denies depression and Denies suicidal ideation Endocrine Reports excessive sweating (Occurred sometime) and Denies palpitations Hematologic/Lymphatic Reports other (has had low platelets in the past) Allergic/Immunologic Denies wheezing PFSH Medical History Alcoholism (Acute) CML (chronic myelocytic leukemia) (Acute) Insulin dependent diabetes mellitus (Acute) Thrombocytopenia (Acute) Surgical History Status post appendectomy Family History Grandfather Diabetes mellitus Mother Cancer Social History household members: none Smoking Status: Former smoker alcohol intake: current Family History Grandfather Diabetes mellitus Mother Cancer Social History household members: none Smoking Status: Former smoker alcohol intake: current Exam Narrative Exam Narrative: GENERAL: Alert and oriented x three, well-nourished, ill- appearing male in mild distress HEENT: Head normocephalic, atraumatic, EOMI, pupils reactive, face symmetric, moist mucous membranes NECK: Supple, full range of motion CARDIOVASCULAR: Regular rate and rhythm without murmurs, rubs or gallops. RESPIRATORY: Breath sounds equal bilaterally, no wheezes rales or rhonchi. No tachypnea or accessory muscle use. ABDOMEN: Soft, nontender. Normoactive bowel sounds all 4 quadrants. No guarding or rebound, rigidity, no mass : No CVA tenderness EXTREMITIES: Normal range of motion, no clubbing or edema. Neurovascularly intact. Patient has 2+ pulses bilateral lower extremities patient has had 2+ blood and rest, his right upper extremity has a on a cast. He has cap refill less than 2 seconds in all 5 fingers. Normal sensation throughout all extremities. NEUROLOGICAL: Cranial nerves II through XII grossly intact. Moving all extremities SKIN: Warm, dry, no petechiae, no rashes or lesions. Initial Vital Signs Initial Vital Signs: Vital Signs Temperature 98.2 F 10/06/18 00:40 Pulse Rate 102 H 10/06/18 00:40 Respiratory Rate 18 10/06/18 00:40 Blood Pressure 154/95 H 10/06/18 00:40 Pulse Oximetry 100 10/06/18 00:40 Course Orders Ordered: ED Orders 10/06/18 00:50 Complete Blood Count AUTO DIFF Stat Comprehensive Metabolic Panel Stat Lipase Stat Partial Thromboplastin Time Stat Prothrombin Time INR Stat Discontinued Medications Sodium Chloride (Normal Saline 0.9%) 1,000 mls @ 1,000 mls/hr IV BOLUS ONE Stop: 10/06/18 01:53 Last Infusion: 10/06/18 02:08 Dose: 1,000 mls/hr Admin: 10/06/18 01:10 Dose: 1,000 mls/hr Sodium Chloride (Normal Saline 0.9%) 1,000 mls @ 150 mls/hr IV CONT ROBIN Last Admin: 10/06/18 01:16 Dose: Not Given Lorazepam (Ativan) 1 mg PO NOW ONE Stop: 10/06/18 00:55 Last Admin: 10/06/18 01:11 Dose: 1 mg Lorazepam (Ativan) 1 mg PO NOW ONE Stop: 10/06/18 01:56 Last Admin: 10/06/18 02:01 Dose: 1 mg Vital Signs - 8 hr 10/06/18 00:40 Temperature 98.2 F Pulse Rate 102 H Respiratory Rate 18 Blood Pressure 154/95 H Pulse Oximetry 100 MDM - Anxiety Lab Data Attestation: I reviewed the patient's lab results. Result diagrams: 10/06/18 00:50 10/06/18 00:50 Lab Results 10/06/18 10/06/18 10/06/18 Range/Units 00:50 00:50 00:50 WBC 4.2 L (4.5-11.0) X10^3/uL RBC 3.68 L (4.5-5.9) X10^6/uL Hgb 12.0 L (13.5-17.5) g/dL Hct 35.6 L (41-53) % MCV 96.8 (80-100) fL MCH 32.6 (26-34) PG MCHC 33.7 (30-36) % RDW 15.2 H (11.6-14.8) % Plt Count 51 L (150-400) X10^3/uL Neut % (Auto) 77.0 H (50-75) % Lymph % (Auto) 13.5 L (25-40) % [place] % (Auto) 7.6 (3-14) % Eos % (Auto) 1.5 L (2-4) % Baso % (Auto) 0.4 (0-2) % Neut # (Auto) 3200 (4413-0338) /uL Lymph # (Auto) 600 L (6253-8913) /uL [place] # (Auto) 300 (0-900) /uL Eos # (Auto) 100 (0-450) /uL Baso # (Auto) 0 (0-100) /uL PT 12.0 (10.1-12.7) SECONDS INR 1.0 (0.9-1.3) APTT 31 (26.4-36.2) SECONDS Sodium 137 (137-145) mmol/L Potassium 4.4 (3.4-5.1) mmol/L Chloride 101 (98-107) mmol/L Carbon Dioxide 26 (22-32) mmol/L BUN 6 L (9-20) mg/dL Creatinine 1.10 (0.66-1.25) mg/dL Estimated GFR > 60.0 (>60) mL/min BUN/Creatinine Ratio 5.5 L (6-22) Glucose 292 H (70-100) mg/dL Calcium 8.0 L (8.4-10.2) mg/dL Total Bilirubin 0.6 (0.2-1.3) mg/dL AST 25 (17-59) IU/L ALT 13 L (21-72) IU/L Alkaline Phosphatase 106 (38-126) U/L Total Protein 6.4 (6.3-8.2) g/dL Albumin 3.7 (3.5-5.0) g/dL Globulin 2.7 (1.7-4.1) g/dL Albumin/Globulin Ratio 1.4 (1.0-2.8) Lipase < 10 L (23-300) U/L MDM Narrative Medical decision making narrative: Patient states he feelings he is having a panic attack, he has taken lorazepam twice daily for his nausea and vomiting and we discussed trying a dose of this to see if it is helpful orally. Also discussed repeating his labs as he has had abnormalities in the past to make sure he is not having any acute changes. Will also give a 1L of fluids as he has had chronic vomiting. No emesis in department. Patient continues to feel shaky. States lorazepam helped a little bit. Patient's vitals have improved. He was given one additional dose. Denies recent etoh use. Patient comfortable with this plan. Platelets are low, they are not at their lowest and plan for recheck in the next day or 2 and for him to follow up with Oncology. Patient ambulates in department without issue and request we contact his family for pickup. Discharge Plan Departure Patient Disposition: Home Clinical Impression: Thrombocytopenia Vomiting Qualifiers: Vomiting Intractability: non-intractable Nausea presence: with nausea Instructions: DI for Anxiety -- Adult Activity Restrictions/Additional Instructions: Follow-up with your oncologist Dr. Camarena in the next 24-48 hours regarding your platelet count which is 51 so that you may have it rechecked. Call the office tomorrow morning. Continue home medications as prescribed. Return to the emergency department for fevers greater than 100.4 F, persistent vomiting that does not respond to medications, signs of dehydration, new chest pain, shortness of breath, passing out, black or bloody stools, signs of bleeding, new or unusual bruising or other new or concerning symptoms. Prescriptions: No Action disulfiram [Antabuse] 250 mg tablet 250 mg PO DAILY Qty: 30 RF: 0 ondansetron 4 mg tablet,disintegrating 4 mg PO QID PRN (Reason: nausea and vomiting) Qty: 30 RF: 3 BD U/F Hilda Pen Needle [id number] .Route .MEDSUPPLY Qty: 100 RF: 3 Humalog KwikPen Insulin 100 unit/mL insulin pen 1 - 12 unit subcut TIDCC Qty: 1 RF: 3 Lantus Solostar U-100 Insulin 100 unit/mL (3 mL) insulin pen 25 unit SUBCUT BID Qty: 15 RF: 3 True Metrix test strips strip .Route .MEDSUPPLY RF: 0 lorazepam 1 mg Tablet 1 mg PO BID 30 Days Qty: 60 RF: 0 prochlorperazine maleate [Compazine] 10 mg Tablet 10 mg PO Q6H PRN (Reason: Nausea) Qty: 30 RF: 2 Syringes 1 syr miscellaneous DIRECTED RF: 0 imatinib [Gleevec] 100 MG tablet 300 mg PO QPM RF: 0 acetaminophen-codeine [Tylenol-Codeine #3] 300-30 mg tablet 1 tab PO Q6H PRN (Reason: pain) Qty: 10 RF: 0 meloxicam 15 mg tablet 15 mg PO DAILY Qty: 30 RF: 2 Referrals: Romain Camarena MD [Physician] - Madalyn Willingham DO [Primary Care Provider] -
[2018-10-06] MEDS: SODIUM CHLORIDE 0.9% 1,000 ML 1000 ML IV (01:10)
[2018-10-06] MEDS: LORazepam 0.5 MG TABLET 1 MG PO ×2 (01:11→02:01)
[2018-10-06 01:17] LABS: Add Manual Diff / Slide Review NO; Basophils Absolute Auto 0 /uL (0-100); Basophils Percent Auto 0.4 % (0-2); Eosinophils Absolute Auto 100 /uL (0-450); Eosinophils Percent Auto 1.5 % (2-4); Hematocrit 35.6 % (41-53); Lymphocytes Absolute Auto 600 /uL (1100-4500); Lymphocytes Percent Auto 13.5 % (25-40); Mean Corpuscular HGB Conc 33.7 % (30-36); Mean Corpuscular Hemoglobin 32.6 PG (26-34); Mean Corpuscular Volume 96.8 fL (80-100); Monocytes Absolute Auto 300 /uL (0-900); Monocytes Percent Auto 7.6 % (3-14); Neutrophils Absolute Auto 3200 /uL (1500-7000); Platelet Count 51 X10^3/uL (150-400); Red Blood Cell Count 3.68 X10^6/uL (4.5-5.9); Red Cell Distribution Width 15.2 % (11.6-14.8); White Blood Cell Count 4.2 X10^3/uL (4.5-11.0)
[2018-10-06 01:21] LABS: Alanine Aminotransferase 13 IU/L (21-72); Albumin 3.7 g/dL (3.5-5.0); Albumin Globulin Ratio 1.4 (1.0-2.8); Alkaline Phosphatase 106 U/L (38-126); Aspartate Aminotransferase 25 IU/L (17-59); BUN Creatinine Ratio 5.5 (6-22); Bilirubin Total 0.6 mg/dL (0.2-1.3); Blood Urea Nitrogen 6 mg/dL (9-20); Carbon Dioxide 26 mmol/L (22-32); Chloride 101 mmol/L (98-107); Estimated Glomerular Filt Rate > 60.0 mL/min (>60); Globulin 2.7 g/dL (1.7-4.1); Glucose 292 mg/dL (70-100); HEMOLYSIS < 15 (0-50); Lipase < 10 U/L (23-300); Potassium 4.4 mmol/L (3.4-5.1); Sodium 137 mmol/L (137-145); Total Protein 6.4 g/dL (6.3-8.2)
[2018-10-06 01:39] LABS: PTT Partial Thromboplastin Tim 31 SECONDS (26.4-36.2)
[2018-10-06 02:23] VITALS: BP 141/90; PULSE 87; RESP 15; O2SAT 99
== END 2018-10-06 02:23 | disposition home or self-care (01) ==
PROVIDERS: Emergency Provider Emergency Medicine; Family Provider Family Medicine; PCP Family Medicine
DX: D69.6 Thrombocytopenia, unspecified (principal); R11.2 Nausea with vomiting, unspecified; F41.9 Anxiety disorder, unspecified
CPT/HCPCS: 36591; 80053; 83690; 85025; 85610; 85730; 96360; 99283

== ENCOUNTER 2018-10-19 12:41 | Inpatient (IN) | payer MEDICAID, SELFPAY ==
[2018-05-08 11:00] VITALS: BMI 20.6
[2018-10-19 12:45] VITALS: BP 176/93; PULSE 86; RESP 18; TEMP 37.4; O2SAT 98
--- NOTE | 2018-10-19 13:18 | DI.RAD.S_ITS ---
PROCEDURE: XR FOOT RT MIN 3V INDICATIONS: wound to rt lateral foot TECHNIQUE: 3 views of the foot were acquired. COMPARISON: None. FINDINGS: Bones: No fractures or dislocations. No suspicious bony lesions. Calcaneal spurring. Soft tissues: Soft tissue swelling and ulceration lateral to the 5th metatarsal phalangeal joint is present. No tibiotalar joint effusion. Achilles tendon appears normal. IMPRESSION: Soft tissue swelling laterally. No acute fracture. No osseous lesion. If symptoms and/or clinical suspicion for pathology persist, further assessment with repeat, or advanced imaging (e.g., CT, MRI, or bone scan) may be helpful for further assessment. Dictated by: Brian Wei M.D. on 10/19/2018 at 13:38 Approved by: Brian Wei M.D. on 10/19/2018 at 13:39
--- NOTE | 2018-10-19 13:44 | DI.RAD.S_ITS ---
PROCEDURE: XR CHEST 1V INDICATIONS: fever, cough TECHNIQUE: One view of the chest was acquired. COMPARISON: [facility], , CHEST 1 VIEW, 07/26/2017, 3:38. FINDINGS: Surgical changes and devices: Low anterior cervical fusion has been performed. Lungs and pleura: Lungs are clear. No pleural effusions or pneumothorax. Mediastinum: Mediastinal contours appear normal. Heart size is normal. Bones and chest wall: No suspicious bony lesions. Overlying soft tissues appear unremarkable. IMPRESSION: No acute process. Dictated by: Brian Wei M.D. on 10/19/2018 at 14:16 Approved by: Brian Wei M.D. on 10/19/2018 at 14:17
[2018-10-19 13:52] LABS: Add Manual Diff / Slide Review NO; Basophils Absolute Auto 0 /uL (0-100); Basophils Percent Auto 0.6 % (0-2); Eosinophils Absolute Auto 0 /uL (0-450); Hematocrit 36.7 % (41-53); Hemoglobin 12.6 g/dL (13.5-17.5); Lymphocytes Absolute Auto 300 /uL (1100-4500); Lymphocytes Percent Auto 3.9 % (25-40); Mean Corpuscular HGB Conc 34.3 % (30-36); Mean Corpuscular Hemoglobin 33.5 PG (26-34); Mean Corpuscular Volume 97.6 fL (80-100); Monocytes Absolute Auto 700 /uL (0-900); Monocytes Percent Auto 9.2 % (3-14); Neutrophils Absolute Auto 7000 /uL (1500-7000); Neutrophils Percent Auto 86.3 % (50-75); Platelet Count 54 X10^3/uL (150-400); Red Blood Cell Count 3.76 X10^6/uL (4.5-5.9); Red Cell Distribution Width 15.5 % (11.6-14.8); White Blood Cell Count 8.2 X10^3/uL (4.5-11.0)
[2018-10-19] MEDS: ONDANSETRON 4 MG/2 ML INJ IV (13:56)
[2018-10-19] MEDS: SODIUM CHLORIDE 0.9% 1,000 ML 1000 ML IV (13:56)
[2018-10-19] MEDS: MORPHINE 4 MG/ML INJ IV ×2 (13:57→14:40)
[2018-10-19 14:07] LABS: Lactate (Lactic Acid) 1.4 mmol/L (0.7-2.1)
[2018-10-19 14:10] LABS: Alanine Aminotransferase 29 IU/L (21-72); Albumin 3.9 g/dL (3.5-5.0); Albumin Globulin Ratio 1.3 (1.0-2.8); Alkaline Phosphatase 137 U/L (38-126); Aspartate Aminotransferase 52 IU/L (17-59); Bilirubin Total 1.1 mg/dL (0.2-1.3); Blood Urea Nitrogen 13 mg/dL (9-20); Calcium 8.4 mg/dL (8.4-10.2); Carbon Dioxide 25 mmol/L (22-32); Chloride 98 mmol/L (98-107); Estimated Glomerular Filt Rate > 60.0 mL/min (>60); Globulin 3.1 g/dL (1.7-4.1); Glucose 381 mg/dL (70-100); HEMOLYSIS < 15 (0-50); Potassium 4.3 mmol/L (3.4-5.1); Sodium 135 mmol/L (137-145)
--- NOTE | 2018-10-19 14:46 | DI.CT.S_ITS ---
PROCEDURE: CT LE RT W CON INDICATIONS: wound, ulcer right foot TECHNIQUE: After the administration of intravenous contrast, 3 mm axial sections acquired of the right foot, with coronal and sagittal reformats. COMPARISON: [facility], CR, XR FOOT RT MIN 3V, 10/19/2018, 13:21. FINDINGS: Image quality: Excellent. Bones: Slightly increased internal trabeculation involving the head of the fifth metacarpal. There is a single questionable area of erosive change along the medial base of the fifth proximal phalanx (series 2 image 291). There is a healed deformity of the remote fourth proximal phalanx impaction fracture at the neck. There are hammertoe deformities 2 through 5. Bony alignment is otherwise normal. There is a well delineated irregular shaped sclerotic bone lesion measuring 2.2 cm the distal tibial metaphysis, likely an enchondroma or remote bone infarct. Soft tissues: Moderate subcutaneous edema along the dorsolateral aspect of the foot. A peripherally enhancing periarticular fluid collection adjacent, plantar and lateral to the fifth MTP joint measuring 3.2 cm in maximal diameter. There is mild enhancement of the fifth MTP joint capsule and a small joint effusion is suspected. These findings are immediately underlying a soft tissue defect. IMPRESSION: 1. 2.2 cm peripherally enhancing fluid collection concerning for abscess in the soft tissues adjacent to the fifth metatarsophalangeal joint. 2. There is a single questionable erosive change along the base of the fifth proximal phalanx. In combination with possible small joint effusion and mild capsular enhancement, this is suspicious for early septic arthritis. 3. There is subtle alteration mineralization of the fifth metatarsal head which may indicate early osteomyelitis. This could be further best evaluated by MRI or nuclear medicine bone scan. 4. 2.2 cm delineated sclerotic lesion in distal tibia suggestive of enchondroma or bone infarct. Dictated by: Jessica Freeman M.D. on 10/19/2018 at 14:20 Approved by: Jessica Freeman M.D. on 10/19/2018 at 14:33
[2018-10-19 15:06] LABS: Procalcitonin 0.19 ng/mL (<0.5)
[2018-10-19 16:11] LABS: C-Reactive Protein Quant 8.4 mg/dL (<1.0)
[2018-10-19 16:18] LABS: Erythrocyte Sedimentation Rate 36 MM/HR (0-15)
[2018-10-19] MEDS: VANCOMYCIN 2,000 MG in SODIUM CHLORIDE 0.9% 500 ML 250 ML IV (16:25)
[2018-10-19] MEDS: HYDROMORPHONE 1 MG INJ IV (16:39)
[2018-10-19 17:01] VITALS: BP 151/85; PULSE 79; O2SAT 98
[2018-10-19 17:13] LABS: RBC Urine None Seen (0-5/HPF)
[2018-10-19 17:15] LABS: Appearance Urine UA SL CLOUDY; Bilirubin Urine UA NEGATIVE (NEGATIVE); Color Urine UA YELLOW; Glucose Urine UA 2+ g/dL (Negative); Ketones Urine UA NEGATIVE (NEGATIVE); Leukocyte Esterase Urine UA NEGATIVE (NEGATIVE); Nitrite Urine UA POSITIVE (Negative); Occult Blood Urine UA NEGATIVE (Negative); Protein Urine UA NEGATIVE (Negative); Specific Gravity Urine UA 1.015 (1.000-1.035); Urobilinogen Urine UA 0.2 E.U./dL (0.2)
[2018-10-19 17:35] LABS: Amorphous Sediment Urine 1+; Bacteria Urine Many (>30); Culture Indicated Urine Specimen Cultured; Squamous Epithelial Cell Urine 0-1 /HPF (0-5/HPF); WBC Urine 10-30/HPF (0-5/HPF)
--- NOTE | 2018-10-19 18:28 | PM.HP.1 ---
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 He woke up in the middle of the night with the pain. He was noted to have a distal right 5th metatarsal ulceration which patient was not aware of prior to ER visit. Also noted to have significant cellulitis appearance of the right foot. He denies fevers or chills. On ER workup, WBC 8.2, ESR 36, CRP 8.4 (versus baseline CRP 0.6 on 12/24/2016). Lower extremity CT reported showing 2.2 cm enhancing fluid collection concerning for abscess adjacent to 5th metatarsophalangeal joint, questionable erosive change at base of 5th proximal phalanx suspicious for early septic arthritis, subtle alteration of 5th metatarsal head which may indicate early osteomyelitis. Patient was started in the ER on vancomycin and meropenem and admitted to inpatient service. Patient History Family & Social History Family History Grandfather Diabetes mellitus Mother Cancer Social History: household members none Safety & Behavioral: Feels Safe in Current Yes Environment Been Physically Hurt or No Threatened By a Person Tobacco & Substance use: Smoking Status Former smoker alcohol intake current alcohol intake frequency 3 or more drinks per day Substance Use Type does not use Meds Home Medications Medication Instructions Recorded Confirmed Type Syringes 1 syr MISCELLANEOUS DIRECTED 11/10/17 10/19/18 History imatinib [Gleevec] 300 mg PO QPM 12/16/17 10/19/18 History True Metrix test strips 0 strip .ROUTE .MEDSUPPLY 04/06/18 10/19/18 History BD U/F Hilda Pen Needle [id number] #100 each 06/13/18 10/19/18 Rx insulin lispro (U- 100) 100 1 - 12 unit SUBCUT TIDCC #1 ea 06/13/18 10/19/18 Rx unit/mL subcutaneous pen ondansetron 4 mg disintegrating 4 mg PO QID PRN #30 tab 07/15/18 10/19/18 Rx tablet meloxicam 15 mg tablet 15 mg PO DAILY #30 tab 07/29/18 10/19/18 Rx insulin glargine (U-100) 100 25 unit SUBCUT BID #15 ml 08/02/18 10/19/18 Rx unit/mL (3 mL) subcutaneous pen lorazepam 1 mg PO BID 30 Days #60 tab 09/21/18 10/19/18 Rx prochlorperazine maleate 10 mg PO Q6H PRN #30 tab 10/04/18 10/19/18 Rx [Compazine] Allergies Allergy/AdvReac Type Severity Reaction Status Date / Time Penicillins [PENICILLINS] Allergy Severe Tongue Verified 10/19/18 12:54 swelling, hives adhesive Allergy Unknown PLASTIC Verified 10/19/18 12:54 TAPE latex [LATEX] Allergy Unknown Verified 10/19/18 12:54 Review of Systems Review of Systems All systems reviewed & are unremarkable except as noted in HPI and below Exam Vital Signs (past 8 hours): - 10/19/18 12:45 10/19/18 17:01 Temperature 99.3 F Pulse Rate 86 79 Respiratory Rate 18 Blood Pressure 176/93 H Blood Pressure [Left Arm] 151/85 H Pulse Oximetry 98 98 Oxygen Delivery Method Room Air Narrative Exam Narrative: GENERAL: Alert and pleasant cooperative male HEAD: Atraumatic. Normocephalic. EYES: Pupils equal, round and reactive. Extraocular motions intact. No scleral icterus. No injection or drainage. OROPHARYNX: moist mucosa NECK: Trachea midline. No lymphadenopathy. CARDIOVASCULAR: Regular rate and rhythm without murmurs, gallops, or rubs. RESPIRATORY: Clear to auscultation bilaterally. GASTROINTESTINAL: Abdomen nondistended, soft, non-tender. No hepato-splenomegaly, or palpable masses. EXTREMITIES: No pretibial edema. The right foot is diffusely swollen with macular erythema on most of the surface of the dorsum of the foot. In addition there is an approximately 1 cm ulceration of the distal 5th metatarsal with small amount of clear drainage which can be expressed from the ulcer. There is some induration around this ulcer as well. He has some diminished sensation to light touch but definitely is able to feel my hand on his foot. NEUROLOGICAL: Well oriented, speech intact, normal bilateral upper and lower extremity strength SKIN: warm, dry, no rash Objective Labs Result Diagrams: 10/19/18 13:43 10/19/18 13:43 Labs: Laboratory Results - last 24 hr 10/19/18 10/19/18 10/19/18 13:42 13:42 13:43 WBC 8.2 RBC 3.76 L Hgb 12.6 L Hct 36.7 L MCV 97.6 MCH 33.5 MCHC 34.3 RDW 15.5 H Plt Count 54 L Neut % (Auto) 86.3 H Lymph % (Auto) 3.9 L [place] % (Auto) 9.2 Eos % (Auto) 0.0 L Baso % (Auto) 0.6 Neut # (Auto) 7000 Lymph # (Auto) 300 L [place] # (Auto) 700 Eos # (Auto) 0 Baso # (Auto) 0 ESR 36 H Sodium Potassium Chloride Carbon Dioxide BUN Creatinine Estimated GFR BUN/Creatinine Ratio Glucose Lactate Calcium Total Bilirubin AST ALT Alkaline Phosphatase C-Reactive Protein 8.4 H Total Protein Albumin Globulin Albumin/Globulin Ratio Procalcitonin Urine Color Urine Appearance Urine pH Ur Specific [place] Urine Protein Urine Glucose (UA) Urine Ketones Urine Occult Blood Urine Nitrate Urine Bilirubin Urine Urobilinogen Ur Leukocyte Esterase Urine RBC Urine WBC Ur Squamous Epith Cells Amorphous Sediment Urine Bacteria Ur Culture Indicated? 10/19/18 10/19/18 10/19/18 13:43 13:43 13:43 WBC RBC Hgb Hct MCV MCH MCHC RDW Plt Count Neut % (Auto) Lymph % (Auto) [place] % (Auto) Eos % (Auto) Baso % (Auto) Neut # (Auto) Lymph # (Auto) [place] # (Auto) Eos # (Auto) Baso # (Auto) ESR Sodium 135 L Potassium 4.3 Chloride 98 Carbon Dioxide 25 BUN 13 Creatinine 1.00 Estimated GFR > 60.0 BUN/Creatinine Ratio 13.0 Glucose 381 H Lactate 1.4 Calcium 8.4 Total Bilirubin 1.1 AST 52 ALT 29 Alkaline Phosphatase 137 H C-Reactive Protein Total Protein 7.0 Albumin 3.9 Globulin 3.1 Albumin/Globulin Ratio 1.3 Procalcitonin 0.19 Urine Color Urine Appearance Urine pH Ur Specific [place] Urine Protein Urine Glucose (UA) Urine Ketones Urine Occult Blood Urine Nitrate Urine Bilirubin Urine Urobilinogen Ur Leukocyte Esterase Urine RBC Urine WBC Ur Squamous Epith Cells Amorphous Sediment Urine Bacteria Ur Culture Indicated? 10/19/18 15:15 WBC RBC Hgb Hct MCV MCH MCHC RDW Plt Count Neut % (Auto) Lymph % (Auto) [place] % (Auto) Eos % (Auto) Baso % (Auto) Neut # (Auto) Lymph # (Auto) [place] # (Auto) Eos # (Auto) Baso # (Auto) ESR Sodium Potassium Chloride Carbon Dioxide BUN Creatinine Estimated GFR BUN/Creatinine Ratio Glucose Lactate Calcium Total Bilirubin AST ALT Alkaline Phosphatase C-Reactive Protein Total Protein Albumin Globulin Albumin/Globulin Ratio Procalcitonin Urine Color Yellow Urine Appearance Sl cloudy Urine pH 7.0 Ur Specific [place] 1.015 Urine Protein Negative Urine Glucose (UA) 2+ H Urine Ketones Negative Urine Occult Blood Negative Urine Nitrate Positive Urine Bilirubin Negative Urine Urobilinogen 0.2 Ur Leukocyte Esterase Negative Urine RBC None seen Urine WBC 10-30/hpf H Ur Squamous Epith Cells 0-1 /hpf Amorphous Sediment 1+ Urine Bacteria Many (>30) H Ur Culture Indicated? Specimen cultured Assessment & Plan Assessment & Plan narrative: This is a 42-year-old male with type 1 diabetes, CML, maintained on Gleevec, chronic nausea controlled with lorazepam, alcohol dependence although states has been mostly abstinent for past couple of months, presented with right foot swelling and redness which appears likely associated with right foot ulcer. 1. Right foot cellulitis associated with diabetic foot ulcer -ulceration of distal 5th metatarsal with some question on CT of soft tissue abscess and possible early osteomyelitis -afebrile, normal WBC and no evidence of sepsis -CRP 8.4 -patient at risk for MRSA and other polymicrobial in organisms including anaerobic and gram-negative bacteria -vancomycin and meropenem for initial antibiotic management -wound culture sent -reviewed case with Ortho account consultant, Dr. Baljinder Torres to evaluate for need for debridement and obtainment of deep wound cultures and bone biopsy -Dilaudid as needed for severe pain 2. Type 1 diabetes -admit glucose 381, worsening control likely due to acute infection -continue patient's Lantus 25 units b.i.d., use NovoLog 5 units with meals, and NovoLog medium dose sliding scale, and adjust insulin dosing as required to achieve adequate control 3. CML -followed locally by Dr. Romain Camarena -continue patient's Gleevec -continue lorazepam 1 mg b.i.d. for Gleevec associated nausea 4. Alcohol dependence -recently abstinent and at low risk for alcohol withdrawal
--- NOTE | 2018-10-19 18:32 | P.HP_ITS ---
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 He woke up in the middle of the night with the pain. He was noted to have a distal right 5th metatarsal ulceration which patient was not aware of prior to ER visit. Also noted to have significant cellulitis appearance of the right foot. He denies fevers or chills. On ER workup, WBC 8.2, ESR 36, CRP 8.4 (versus baseline CRP 0.6 on 12/24/2016). Lower extremity CT reported showing 2.2 cm enhancing fluid collection concerning for abscess adjacent to 5th metatarsophalangeal joint, questionable erosive change at base of 5th proximal phalanx suspicious for early septic arthritis, subtle alteration of 5th metatarsal head which may indicate early osteomyelitis. Patient was started in the ER on vancomycin and meropenem and admitted to inpatient service. Patient History Family & Social History Family History Grandfather Diabetes mellitus Mother Cancer Social History: household members none Safety & Behavioral: Feels Safe in Current Yes Environment Been Physically Hurt or No Threatened By a Person Tobacco & Substance use: Smoking Status Former smoker alcohol intake current alcohol intake frequency 3 or more drinks per day Substance Use Type does not use Meds Home Medications Medication Instructions Recorded Confirmed Type Syringes 1 syr MISCELLANEOUS DIRECTED 11/10/17 10/19/18 History imatinib [Gleevec] 300 mg PO QPM 12/16/17 10/19/18 History True Metrix test strips 0 strip .ROUTE .MEDSUPPLY 04/06/18 10/19/18 History BD U/F Hilda Pen Needle [id number] #100 each 06/13/18 10/19/18 Rx insulin lispro (U- 100) 100 1 - 12 unit SUBCUT TIDCC #1 ea 06/13/18 10/19/18 Rx unit/mL subcutaneous pen ondansetron 4 mg disintegrating 4 mg PO QID PRN #30 tab 07/15/18 10/19/18 Rx tablet meloxicam 15 mg tablet 15 mg PO DAILY #30 tab 07/29/18 10/19/18 Rx insulin glargine (U-100) 100 25 unit SUBCUT BID #15 ml 08/02/18 10/19/18 Rx unit/mL (3 mL) subcutaneous pen lorazepam 1 mg PO BID 30 Days #60 tab 09/21/18 10/19/18 Rx prochlorperazine maleate 10 mg PO Q6H PRN #30 tab 10/04/18 10/19/18 Rx [Compazine] Allergies Allergy/AdvReac Type Severity Reaction Status Date / Time Penicillins [PENICILLINS] Allergy Severe Tongue Verified 10/19/18 12:54 swelling, hives adhesive Allergy Unknown PLASTIC Verified 10/19/18 12:54 TAPE latex [LATEX] Allergy Unknown Verified 10/19/18 12:54 Review of Systems Review of Systems All systems reviewed & are unremarkable except as noted in HPI and below Exam Vital Signs (past 8 hours): - 10/19/18 12:45 10/19/18 17:01 Temperature 99.3 F Pulse Rate 86 79 Respiratory Rate 18 Blood Pressure 176/93 H Blood Pressure [Left Arm] 151/85 H Pulse Oximetry 98 98 Oxygen Delivery Method Room Air Narrative Exam Narrative: GENERAL: Alert and pleasant cooperative male HEAD: Atraumatic. Normocephalic. EYES: Pupils equal, round and reactive. Extraocular motions intact. No scleral icterus. No injection or drainage. OROPHARYNX: moist mucosa NECK: Trachea midline. No lymphadenopathy. CARDIOVASCULAR: Regular rate and rhythm without murmurs, gallops, or rubs. RESPIRATORY: Clear to auscultation bilaterally. GASTROINTESTINAL: Abdomen nondistended, soft, non-tender. No hepato- splenomegaly, or palpable masses. EXTREMITIES: No pretibial edema. The right foot is diffusely swollen with macular erythema on most of the surface of the dorsum of the foot. In addition there is an approximately 1 cm ulceration of the distal 5th metatarsal with small amount of clear drainage which can be expressed from the ulcer. There is some induration around this ulcer as well. He has some diminished sensation to light touch but definitely is able to feel my hand on his foot. NEUROLOGICAL: Well oriented, speech intact, normal bilateral upper and lower extremity strength SKIN: warm, dry, no rash Objective Labs Result Diagrams: 10/19/18 13:43 10/19/18 13:43 Labs: Laboratory Results - last 24 hr 10/19/18 10/19/18 10/19/18 13:42 13:42 13:43 WBC 8.2 RBC 3.76 L Hgb 12.6 L Hct 36.7 L MCV 97.6 MCH 33.5 MCHC 34.3 RDW 15.5 H Plt Count 54 L Neut % (Auto) 86.3 H Lymph % (Auto) 3.9 L [place] % (Auto) 9.2 Eos % (Auto) 0.0 L Baso % (Auto) 0.6 Neut # (Auto) 7000 Lymph # (Auto) 300 L [place] # (Auto) 700 Eos # (Auto) 0 Baso # (Auto) 0 ESR 36 H Sodium Potassium Chloride Carbon Dioxide BUN Creatinine Estimated GFR BUN/Creatinine Ratio Glucose Lactate Calcium Total Bilirubin AST ALT Alkaline Phosphatase C-Reactive Protein 8.4 H Total Protein Albumin Globulin Albumin/Globulin Ratio Procalcitonin Urine Color Urine Appearance Urine pH Ur Specific [place] Urine Protein Urine Glucose (UA) Urine Ketones Urine Occult Blood Urine Nitrate Urine Bilirubin Urine Urobilinogen Ur Leukocyte Esterase Urine RBC Urine WBC Ur Squamous Epith Cells Amorphous Sediment Urine Bacteria Ur Culture Indicated? 10/19/18 10/19/18 10/19/18 13:43 13:43 13:43 WBC RBC Hgb Hct MCV MCH MCHC RDW Plt Count Neut % (Auto) Lymph % (Auto) [place] % (Auto) Eos % (Auto) Baso % (Auto) Neut # (Auto) Lymph # (Auto) [place] # (Auto) Eos # (Auto) Baso # (Auto) ESR Sodium 135 L Potassium 4.3 Chloride 98 Carbon Dioxide 25 BUN 13 Creatinine 1.00 Estimated GFR > 60.0 BUN/Creatinine Ratio 13.0 Glucose 381 H Lactate 1.4 Calcium 8.4 Total Bilirubin 1.1 AST 52 ALT 29 Alkaline Phosphatase 137 H C-Reactive Protein Total Protein 7.0 Albumin 3.9 Globulin 3.1 Albumin/Globulin Ratio 1.3 Procalcitonin 0.19 Urine Color Urine Appearance Urine pH Ur Specific [place] Urine Protein Urine Glucose (UA) Urine Ketones Urine Occult Blood Urine Nitrate Urine Bilirubin Urine Urobilinogen Ur Leukocyte Esterase Urine RBC Urine WBC Ur Squamous Epith Cells Amorphous Sediment Urine Bacteria Ur Culture Indicated? 10/19/18 15:15 WBC RBC Hgb Hct MCV MCH MCHC RDW Plt Count Neut % (Auto) Lymph % (Auto) [place] % (Auto) Eos % (Auto) Baso % (Auto) Neut # (Auto) Lymph # (Auto) [place] # (Auto) Eos # (Auto) Baso # (Auto) ESR Sodium Potassium Chloride Carbon Dioxide BUN Creatinine Estimated GFR BUN/Creatinine Ratio Glucose Lactate Calcium Total Bilirubin AST ALT Alkaline Phosphatase C-Reactive Protein Total Protein Albumin Globulin Albumin/Globulin Ratio Procalcitonin Urine Color Yellow Urine Appearance Sl cloudy Urine pH 7.0 Ur Specific [place] 1.015 Urine Protein Negative Urine Glucose (UA) 2+ H Urine Ketones Negative Urine Occult Blood Negative Urine Nitrate Positive Urine Bilirubin Negative Urine Urobilinogen 0.2 Ur Leukocyte Esterase Negative Urine RBC None seen Urine WBC 10-30/hpf H Ur Squamous Epith Cells 0-1 /hpf Amorphous Sediment 1+ Urine Bacteria Many (>30) H Ur Culture Indicated? Specimen cultured Assessment & Plan Assessment & Plan narrative: This is a 42-year-old male with type 1 diabetes, CML, maintained on Gleevec, chronic nausea controlled with lorazepam, alcohol dependence although states has been mostly abstinent for past couple of months, presented with right foot swelling and redness which appears likely associated with right foot ulcer. 1. Right foot cellulitis associated with diabetic foot ulcer -ulceration of distal 5th metatarsal with some question on CT of soft tissue abscess and possible early osteomyelitis -afebrile, normal WBC and no evidence of sepsis -CRP 8.4 -patient at risk for MRSA and other polymicrobial in organisms including anaerobic and gram-negative bacteria -vancomycin and meropenem for initial antibiotic management -wound culture sent -reviewed case with Ortho curator of collections, Dr. Baljinder Torres to evaluate for need for debridement and obtainment of deep wound cultures and bone biopsy -Dilaudid as needed for severe pain 2. Type 1 diabetes -admit glucose 381, worsening control likely due to acute infection -continue patient's Lantus 25 units b.i.d., use NovoLog 5 units with meals, and NovoLog medium dose sliding scale, and adjust insulin dosing as required to achieve adequate control 3. CML -followed locally by Dr. Romain Camarena -continue patient's Gleevec -continue lorazepam 1 mg b.i.d. for Gleevec associated nausea 4. Alcohol dependence -recently abstinent and at low risk for alcohol withdrawal
[2018-10-19] MEDS: HYDROMORPHONE 0.5 MG INJ IV (18:40)
--- NOTE | 2018-10-19 18:43 | PC.NURSE ---
1840 vanco inf continues at time of transfer to acute care
[2018-10-19 18:57] VITALS: BMI 20.3
[2018-10-19 19:00] VITALS: BP 132/88; PULSE 83; RESP 18; TEMP 38.2
--- NOTE | 2018-10-19 19:09 | PM.CN ---
History of Present Illness Date Patient Seen: 10/19/18 Time Patient Seen: 19:00 Chief complaint: right foot swelling and burning x2 days Reason for consult: Right diabetic foot infection Requesting provider: Prudencio Lugo Narrative: Patient is a 42-year-old gentleman with a history of brittle diabetes. He has had about 2 days of right foot pain coupled with some swelling. He was unaware that he had an ulcer underneath his 5th metatarsal head. He reports he does not routinely inspect his feet. He was seen in the emergency room today. Initially the plan was to treat him on oral Bactrim and have him follow-up with podiatry as an outpatient however he was found to have significantly elevated blood sugars and was admitted to the hospitalist service. [facility] Medical History Alcoholism (Acute) CML (chronic myelocytic leukemia) (Acute) Insulin dependent diabetes mellitus (Acute) Thrombocytopenia (Acute) Surgical History Status post appendectomy Family History Grandfather Diabetes mellitus Mother Cancer Social History household members: none Smoking Status: Former smoker alcohol intake: current Family History Grandfather Diabetes mellitus Mother Cancer Social History household members: none Smoking Status: Former smoker alcohol intake: current Meds Home Medications Medication Instructions Recorded Confirmed Type Syringes 1 syr MISCELLANEOUS DIRECTED 11/10/17 10/19/18 History imatinib [Gleevec] 300 mg PO QPM 12/16/17 10/19/18 History True Metrix test strips 0 strip .ROUTE .MEDSUPPLY 04/06/18 10/19/18 History BD U/F Hilda Pen Needle [id number] #100 each 06/13/18 10/19/18 Rx insulin lispro (U- 100) 100 1 - 12 unit SUBCUT TIDCC #1 ea 06/13/18 10/19/18 Rx unit/mL subcutaneous pen ondansetron 4 mg disintegrating 4 mg PO QID PRN #30 tab 07/15/18 10/19/18 Rx tablet meloxicam 15 mg tablet 15 mg PO DAILY #30 tab 07/29/18 10/19/18 Rx insulin glargine (U-100) 100 25 unit SUBCUT BID #15 ml 08/02/18 10/19/18 Rx unit/mL (3 mL) subcutaneous pen lorazepam 1 mg PO BID 30 Days #60 tab 09/21/18 10/19/18 Rx prochlorperazine maleate 10 mg PO Q6H PRN #30 tab 10/04/18 10/19/18 Rx [Compazine] Allergies Allergy/AdvReac Type Severity Reaction Status Date / Time Penicillins [PENICILLINS] Allergy Severe Tongue Verified 10/19/18 12:54 swelling, hives adhesive Allergy Unknown PLASTIC Verified 10/19/18 12:54 TAPE latex [LATEX] Allergy Unknown Verified 10/19/18 12:54 Review of Systems Review of Systems The patient reports he does not routinely do foot inspections. He does have neuropathy. Denies symptoms of acute infection other than the swelling of his foot. No fevers or chills. Exam Vital Signs (past 8 hours): - 10/19/18 12:45 10/19/18 17:01 Temperature 99.3 F Pulse Rate 86 79 Respiratory Rate 18 Blood Pressure 176/93 H Blood Pressure [Left Arm] 151/85 H Pulse Oximetry 98 98 Oxygen Delivery Method Room Air Narrative Exam Narrative: Right foot is significantly swollen compared to the opposite side. There is a in approximately dime-sized ulcer underlying the 5th metatarsal head with some purulence drainage on the bandage that has been placed. There is mild erythema around the foot. There does not appear to be any significant ascending lymphangitis. Objective Labs Result Diagrams: 10/19/18 13:43 10/19/18 13:43 Labs: Laboratory Results - last 24 hr 10/19/18 10/19/18 10/19/18 13:42 13:42 13:43 WBC 8.2 RBC 3.76 L Hgb 12.6 L Hct 36.7 L MCV 97.6 MCH 33.5 MCHC 34.3 RDW 15.5 H Plt Count 54 L Neut % (Auto) 86.3 H Lymph % (Auto) 3.9 L [place] % (Auto) 9.2 Eos % (Auto) 0.0 L Baso % (Auto) 0.6 Neut # (Auto) 7000 Lymph # (Auto) 300 L [place] # (Auto) 700 Eos # (Auto) 0 Baso # (Auto) 0 ESR 36 H Sodium Potassium Chloride Carbon Dioxide BUN Creatinine Estimated GFR BUN/Creatinine Ratio Glucose Lactate Calcium Total Bilirubin AST ALT Alkaline Phosphatase C-Reactive Protein 8.4 H Total Protein Albumin Globulin Albumin/Globulin Ratio Procalcitonin Urine Color Urine Appearance Urine pH Ur Specific [place] Urine Protein Urine Glucose (UA) Urine Ketones Urine Occult Blood Urine Nitrate Urine Bilirubin Urine Urobilinogen Ur Leukocyte Esterase Urine RBC Urine WBC Ur Squamous Epith Cells Amorphous Sediment Urine Bacteria Ur Culture Indicated? 10/19/18 10/19/18 10/19/18 13:43 13:43 13:43 WBC RBC Hgb Hct MCV MCH MCHC RDW Plt Count Neut % (Auto) Lymph % (Auto) [place] % (Auto) Eos % (Auto) Baso % (Auto) Neut # (Auto) Lymph # (Auto) [place] # (Auto) Eos # (Auto) Baso # (Auto) ESR Sodium 135 L Potassium 4.3 Chloride 98 Carbon Dioxide 25 BUN 13 Creatinine 1.00 Estimated GFR > 60.0 BUN/Creatinine Ratio 13.0 Glucose 381 H Lactate 1.4 Calcium 8.4 Total Bilirubin 1.1 AST 52 ALT 29 Alkaline Phosphatase 137 H C-Reactive Protein Total Protein 7.0 Albumin 3.9 Globulin 3.1 Albumin/Globulin Ratio 1.3 Procalcitonin 0.19 Urine Color Urine Appearance Urine pH Ur Specific [place] Urine Protein Urine Glucose (UA) Urine Ketones Urine Occult Blood Urine Nitrate Urine Bilirubin Urine Urobilinogen Ur Leukocyte Esterase Urine RBC Urine WBC Ur Squamous Epith Cells Amorphous Sediment Urine Bacteria Ur Culture Indicated? 10/19/18 15:15 WBC RBC Hgb Hct MCV MCH MCHC RDW Plt Count Neut % (Auto) Lymph % (Auto) [place] % (Auto) Eos % (Auto) Baso % (Auto) Neut # (Auto) Lymph # (Auto) [place] # (Auto) Eos # (Auto) Baso # (Auto) ESR Sodium Potassium Chloride Carbon Dioxide BUN Creatinine Estimated GFR BUN/Creatinine Ratio Glucose Lactate Calcium Total Bilirubin AST ALT Alkaline Phosphatase C-Reactive Protein Total Protein Albumin Globulin Albumin/Globulin Ratio Procalcitonin Urine Color Yellow Urine Appearance Sl cloudy Urine pH 7.0 Ur Specific [place] 1.015 Urine Protein Negative Urine Glucose (UA) 2+ H Urine Ketones Negative Urine Occult Blood Negative Urine Nitrate Positive Urine Bilirubin Negative Urine Urobilinogen 0.2 Ur Leukocyte Esterase Negative Urine RBC None seen Urine WBC 10-30/hpf H Ur Squamous Epith Cells 0-1 /hpf Amorphous Sediment 1+ Urine Bacteria Many (>30) H Ur Culture Indicated? Specimen cultured Assessment & Plan Assessment & Plan narrative: The patient is a 42-year-old diabetic with a history of chronic myelogenous leukemia as well. He also has a history of alcohol dependency. He does not routinely inspect his feet and has had an ulcer that he was unaware of. He has gone on to develop a draining infection of the foot. A CT scan was obtained today showing soft tissue infection around the metatarsophalangeal joint of the small toe. His swelling is considerably more generalized in that period My plan for him is to start IV antibiotic treatment to see where things begin to demarcate. He will need an I and D of the 5th metatarsal ulcer probably this will be done on Wednesday morning. I will inspect his foot and wound again tomorrow evening.
--- NOTE | 2018-10-19 19:18 | ED.EXTPRO ---
HPI - Extremity Problem <Zainab AmadorDAVID-BC - Last Filed: 10/19/18 19:54> General Chief complaint: Extremity Problem,Nontraumatic Stated complaint: right foot swelling and burning x2 days Time Seen by Provider: 10/19/18 13:09 Source: patient Mode of arrival: ambulatory Limitations: no limitations History of Present Illness HPI Narrative: The patient is a 42-year-old male current smoker with history of CML, diabetes and osteomyelitis who presents with a chief complaint of right foot pain. He denies any fevers, but complains of chills and aches. He denies any vomiting, but complains of nausea. He states his right foot is red and warm. He denies any chest pain, but complains of some coughing. He denies any congestion. He states he has a history of pneumonia, alcoholism, IV drug use and anxiety. Use admitted at [facility] for osteomyelitis of his spine. Related Data Home Medications Medication Instructions Recorded Confirmed Syringes 1 syr MISCELLANEOUS DIRECTED 11/10/17 10/19/18 imatinib [Gleevec] 300 mg PO QPM 12/16/17 10/19/18 True Metrix test strips 0 strip .ROUTE .MEDSUPPLY 04/06/18 10/19/18 Previous Rx's Medication Instructions Recorded BD U/F Hilda Pen Needle [id number] #100 each 06/13/18 insulin lispro (U- 100) 100 1 - 12 unit SUBCUT TIDCC #1 ea 06/13/18 unit/mL subcutaneous pen ondansetron 4 mg disintegrating 4 mg PO QID PRN #30 tab 07/15/18 tablet meloxicam 15 mg tablet 15 mg PO DAILY #30 tab 07/29/18 insulin glargine (U-100) 100 25 unit SUBCUT BID #15 ml 08/02/18 unit/mL (3 mL) subcutaneous pen lorazepam 1 mg PO BID 30 Days #60 tab 09/21/18 prochlorperazine maleate 10 mg PO Q6H PRN #30 tab 10/04/18 [Compazine] Allergies Allergy/AdvReac Type Severity Reaction Status Date / Time Penicillins [PENICILLINS] Allergy Severe Tongue Verified 10/19/18 12:54 swelling, hives adhesive Allergy Unknown PLASTIC Verified 10/19/18 12:54 TAPE latex [LATEX] Allergy Unknown Verified 10/19/18 12:54 Review of Systems <ZACH Lauren - Last Filed: 10/19/18 19:54> Review of Systems GENERAL: See HPI HEENT: Denies sinus pain, ear pain, sore throat, difficulty swallowing, dizziness. RESPIRATORY: Denies dyspnea, cough, wheezing, hemoptysis, sputum. CARDIOVASCULAR: Denies chest pain, palpitations, orthopnea, edema, GASTROINTESTINAL: See HPI : See HPI MUSCULOSKELETAL: denies weakness, joint pain, or bony pain SKIN: Denies rash, skin lesions, or other NEUROLOGIC: Denies weakness, headache, numbness, change in speech, confusion, seizures, incoordination. PSYCHIATRIC: No concerning psychosocial issues. 12 point review of systems is negative except for those stated above PFSH <ZACH Lauren - Last Filed: 10/19/18 19:54> Medical History Alcoholism (Acute) CML (chronic myelocytic leukemia) (Acute) Insulin dependent diabetes mellitus (Acute) Thrombocytopenia (Acute) Surgical History Status post appendectomy Family History Grandfather Diabetes mellitus Mother Cancer Social History household members: none Smoking Status: Former smoker alcohol intake: current Family History Grandfather Diabetes mellitus Mother Cancer Social History household members: none Smoking Status: Former smoker alcohol intake: current Exam <ZACH Lauren - Last Filed: 10/19/18 19:54> Narrative Exam Narrative: GENERAL: This is a well-nourished, well-developed patient, in mild distress. HEAD: Atraumatic. Normocephalic. No temporal or scalp tenderness. EYES: Pupils equal round and reactive. Extraocular motions intact. No scleral icterus. No injection or drainage. ENT: Nose without bleeding, purulent drainage or septal hematoma. Throat without erythema, tonsillar hypertrophy or exudate. Uvula midline. Airway patent. NECK: Trachea midline. No JVD or lymphadenopathy. Supple, nontender, no meningeal signs. CARDIOVASCULAR: Regular rate and rhythm without murmurs, gallops, or rubs. RESPIRATORY: Coarse breath sounds to auscultation. Breath sounds equal bilaterally. No wheezes, rales, or rhonchi. No cough. No increased respiratory effort. No accessory muscle use. GASTROINTESTINAL: Abdomen soft, non-tender, nondistended. No hepato-splenomegaly, or palpable masses. No guarding. Active bowel sounds. EXTREMITIES: See skin exam. Positive pedal pulses bilaterally. Able to flex all toes. BACK: Nontender without deformity or crepitance. No flank tenderness. NEURO: AOx3. SKIN: 1 cm wound distal to 5th toe on right foot. Draining serosanguineous drainage. Erythema noted covering dorsal aspect of right foot. Erythema and warmth. Positive pedal pulses. Initial Vital Signs Initial Vital Signs: Vital Signs Temperature 99.3 F 10/19/18 12:45 Pulse Rate 86 10/19/18 12:45 Respiratory Rate 18 10/19/18 12:45 Blood Pressure 176/93 H 10/19/18 12:45 Pulse Oximetry 98 10/19/18 12:45 <Zainab Patrick DO - Last Filed: 10/19/18 19:56> Initial Vital Signs Initial Vital Signs: Vital Signs Temperature 99.3 F 10/19/18 12:45 Pulse Rate 86 10/19/18 12:45 Respiratory Rate 18 10/19/18 12:45 Blood Pressure 176/93 H 10/19/18 12:45 Pulse Oximetry 98 10/19/18 12:45 Course <DAVID Lauren-BC - Last Filed: 10/19/18 19:54> Course Narrative: I checked on the patient several times throughout his stay in the ER Orders Ordered: ED Orders 10/19/18 13:18 XR foot RT min 3V Stat 10/19/18 13:42 C-Reactive Protein Quant Stat Erythrocyte Sedimentation Rate Stat 10/19/18 13:43 Complete Blood Count AUTO DIFF Stat Comprehensive Metabolic Panel Stat Lactate (Lactic Acid) Stat Procalcitonin Stat 10/19/18 13:44 XR chest 1V Stat 10/19/18 13:58 Blood Culture Stat 10/19/18 14:46 CT LE RT w con Stat 10/19/18 15:15 Urinalysis and Microscopic Stat Urine Culture Stat 10/19/18 16:05 Wound Culture and Gram Stain Stat 10/19/18 18:20 Education, smoking cessation ONGOING 10/19/18 18:36 Consult to Physician Routine 10/20/18 18:15 Vancomycin Trough Urgent Acetaminophen (Tylenol) 650 mg PO Q6HR PRN PRN Reason: As Needed for Fever/Mild Pain Bisacodyl (Dulcolax) 10 mg PO DAILY PRN PRN Reason: Constipation Dextrose (D50w) 25 gm IV PRN PRN; Protocol PRN Reason: Hypoglycemia Meropenem (Merrem) 1 gm in 50 mls @ 100 mls/hr IV Q8H ROBIN Vancomycin HCl 1,250 mg/ (Sodium Chloride) 250 mls @ 250 mls/hr IV Q8H [facility] Last Admin: 10/19/18 19:16 Dose: Not Given Insulin Aspart (Novolog Flexpen) 0 unit SUBCUT ACHS ROBIN; Protocol Insulin Aspart (Novolog Flexpen) 5 unit SUBCUT TIDWM [facility] Insulin Glargine (Lantus Solostar (Pen)) 25 unit SUBCUT BID ROBIN Lorazepam (Ativan) 1 mg PO BID ROBIN Magnesium Hydroxide (Milk Of Magnesia) 30 ml PO DAILY PRN PRN Reason: Constipation Meloxicam (Mobic) 15 mg PO DAILY [facility] Nicotine (Nicoderm) 14 mg TOP DAILY [facility] Imatinib [Gleevec] (300 Mg) 300 mg PO QPM ROBIN Ondansetron HCl (Zofran) 4 mg IV Q4HR PRN PRN Reason: Nausea And Vomiting Vancomycin HCl (Vancomycin Trough) 1 request MISC NOW ONE Stop: 10/20/18 18:16 Discontinued Medications Hydromorphone HCl (Dilaudid) 1 mg IV NOW ONE Stop: 10/19/18 16:32 Last Admin: 10/19/18 16:39 Dose: 1 mg Hydromorphone HCl (Dilaudid) 0.5 mg IV NOW ONE Stop: 10/19/18 17:54 Last Admin: 10/19/18 18:40 Dose: 0.5 mg Sodium Chloride (Normal Saline 0.9%) 1,000 mls @ 1,000 mls/hr IV BOLUS ONE Stop: 10/19/18 14:40 Last Infusion: 10/19/18 16:19 Dose: 0 mls/hr Admin: 10/19/18 13:56 Dose: 1,000 mls/hr Vancomycin HCl 2,000 mg/ (Sodium Chloride) 500 mls @ 250 mls/hr IV NOW ONE Stop: 10/19/18 15:55 Last Infusion: 10/19/18 19:10 Dose: 250 mls/hr Admin: 10/19/18 16:25 Dose: 250 mls/hr Piperacillin/Tazobactam/Dextrose (Zosyn) 3.375 gm in 50 mls @ 100 mls/hr IV Q6H ROBIN Last Admin: 10/19/18 19:13 Dose: Not Given Morphine Sulfate (Morphine) 4 mg IV NOW ONE Stop: 10/19/18 13:57 Last Admin: 10/19/18 13:57 Dose: 4 mg Morphine Sulfate (Morphine) 4 mg IV NOW ONE Stop: 10/19/18 14:32 Last Admin: 10/19/18 14:40 Dose: 4 mg Nicotine (Nicoderm) 14 mg TOP NOW ONE Stop: 10/19/18 19:23 Ondansetron HCl (Zofran) 4 mg IV NOW ONE Stop: 10/19/18 13:41 Last Admin: 10/19/18 13:56 Dose: 4 mg Vancomycin HCl (Vancomycin Per Pharmacy) 1 request MISC NOW ONE Stop: 10/19/18 18:21 Vital Signs - 8 hr 10/19/18 12:45 10/19/18 17:01 10/19/18 19:00 Temperature 99.3 F 100.7 F H Pulse Rate 86 79 83 Respiratory Rate 18 18 Blood Pressure 176/93 H 132/88 Blood Pressure [Left Arm] 151/85 H Pulse Oximetry 98 98 <Zainab Patrick, - Last Filed: 10/19/18 19:56> Orders Ordered: ED Orders 10/19/18 13:18 XR foot RT min 3V Stat 10/19/18 13:42 C-Reactive Protein Quant Stat Erythrocyte Sedimentation Rate Stat 10/19/18 13:43 Complete Blood Count AUTO DIFF Stat Comprehensive Metabolic Panel Stat Lactate (Lactic Acid) Stat Procalcitonin Stat 10/19/18 13:44 XR chest 1V Stat 10/19/18 13:58 Blood Culture Stat 10/19/18 14:46 CT LE RT w con Stat 10/19/18 15:15 Urinalysis and Microscopic Stat Urine Culture Stat 10/19/18 16:05 Wound Culture and Gram Stain Stat 10/19/18 18:20 Education, smoking cessation ONGOING 10/19/18 18:36 Consult to Physician Routine 10/20/18 18:15 Vancomycin Trough Urgent Acetaminophen (Tylenol) 650 mg PO Q6HR PRN PRN Reason: As Needed for Fever/Mild Pain Bisacodyl (Dulcolax) 10 mg PO DAILY PRN PRN Reason: Constipation Dextrose (D50w) 25 gm IV PRN PRN; Protocol PRN Reason: Hypoglycemia Meropenem (Merrem) 1 gm in 50 mls @ 100 mls/hr IV Q8H ROBIN Vancomycin HCl 1,250 mg/ (Sodium Chloride) 250 mls @ 250 mls/hr IV Q8H [facility] Last Admin: 10/19/18 19:16 Dose: Not Given Insulin Aspart (Novolog Flexpen) 0 unit SUBCUT ACHS ROBIN; Protocol Insulin Aspart (Novolog Flexpen) 5 unit SUBCUT TIDWM [facility] Insulin Glargine (Lantus Solostar (Pen)) 25 unit SUBCUT BID ROBIN Lorazepam (Ativan) 1 mg PO BID ROBIN Magnesium Hydroxide (Milk Of Magnesia) 30 ml PO DAILY PRN PRN Reason: Constipation Meloxicam (Mobic) 15 mg PO DAILY [facility] Nicotine (Nicoderm) 14 mg TOP DAILY [facility] Imatinib [Gleevec] (300 Mg) 300 mg PO QPM ROBIN Ondansetron HCl (Zofran) 4 mg IV Q4HR PRN PRN Reason: Nausea And Vomiting Vancomycin HCl (Vancomycin Trough) 1 request MISC NOW ONE Stop: 10/20/18 18:16 Discontinued Medications Hydromorphone HCl (Dilaudid) 1 mg IV NOW ONE Stop: 10/19/18 16:32 Last Admin: 10/19/18 16:39 Dose: 1 mg Hydromorphone HCl (Dilaudid) 0.5 mg IV NOW ONE Stop: 10/19/18 17:54 Last Admin: 10/19/18 18:40 Dose: 0.5 mg Sodium Chloride (Normal Saline 0.9%) 1,000 mls @ 1,000 mls/hr IV BOLUS ONE Stop: 10/19/18 14:40 Last Infusion: 10/19/18 16:19 Dose: 0 mls/hr Admin: 10/19/18 13:56 Dose: 1,000 mls/hr Vancomycin HCl 2,000 mg/ (Sodium Chloride) 500 mls @ 250 mls/hr IV NOW ONE Stop: 10/19/18 15:55 Last Infusion: 10/19/18 19:10 Dose: 250 mls/hr Admin: 10/19/18 16:25 Dose: 250 mls/hr Piperacillin/Tazobactam/Dextrose (Zosyn) 3.375 gm in 50 mls @ 100 mls/hr IV Q6H ROBIN Last Admin: 10/19/18 19:13 Dose: Not Given Morphine Sulfate (Morphine) 4 mg IV NOW ONE Stop: 10/19/18 13:57 Last Admin: 10/19/18 13:57 Dose: 4 mg Morphine Sulfate (Morphine) 4 mg IV NOW ONE Stop: 10/19/18 14:32 Last Admin: 10/19/18 14:40 Dose: 4 mg Nicotine (Nicoderm) 14 mg TOP NOW ONE Stop: 10/19/18 19:23 Ondansetron HCl (Zofran) 4 mg IV NOW ONE Stop: 10/19/18 13:41 Last Admin: 10/19/18 13:56 Dose: 4 mg Vancomycin HCl (Vancomycin Per Pharmacy) 1 request MISC NOW ONE Stop: 10/19/18 18:21 Vital Signs - 8 hr 10/19/18 12:45 10/19/18 17:01 10/19/18 19:00 Temperature 99.3 F 100.7 F H Pulse Rate 86 79 83 Respiratory Rate 18 18 Blood Pressure 176/93 H 132/88 Blood Pressure [Left Arm] 151/85 H Pulse Oximetry 98 98 MDM - Extremity (Nontraumatic) <DAVID Lauren-RAY - Last Filed: 10/19/18 19:54> Lab Data Result diagrams: 10/19/18 13:43 10/19/18 13:43 Lab Results 10/19/18 10/19/18 10/19/18 Range/Units 13:42 13:42 13:43 WBC 8.2 (4.5-11.0) X10^3/uL RBC 3.76 L (4.5-5.9) X10^6/uL Hgb 12.6 L (13.5-17.5) g/dL Hct 36.7 L (41-53) % MCV 97.6 (80-100) fL MCH 33.5 (26-34) PG MCHC 34.3 (30-36) % RDW 15.5 H (11.6-14.8) % Plt Count 54 L (150-400) X10^3/uL Neut % (Auto) 86.3 H (50-75) % Lymph % (Auto) 3.9 L (25-40) % Griggs % (Auto) 9.2 (3-14) % Eos % (Auto) 0.0 L (2-4) % Baso % (Auto) 0.6 (0-2) % Neut # (Auto) 7000 (0946-0302) /uL Lymph # (Auto) 300 L (1382-5597) /uL Griggs # (Auto) 700 (0-900) /uL Eos # (Auto) 0 (0-450) /uL Baso # (Auto) 0 (0-100) /uL ESR 36 H (0-15) MM/HR Sodium (137-145) mmol/L Potassium (3.4-5.1) mmol/L Chloride (98-107) mmol/L Carbon Dioxide (22-32) mmol/L BUN (9-20) mg/dL Creatinine (0.66-1.25) mg/dL Estimated GFR (>60) mL/min BUN/Creatinine Ratio (6-22) Glucose (70-100) mg/dL Lactate (0.7-2.1) mmol/L Calcium (8.4-10.2) mg/dL Total Bilirubin (0.2-1.3) mg/dL AST (17-59) IU/L ALT (21-72) IU/L Alkaline Phosphatase (38-126) U/L C-Reactive Protein 8.4 H (<1.0) mg/dL Total Protein (6.3-8.2) g/dL Albumin (3.5-5.0) g/dL Globulin (1.7-4.1) g/dL Albumin/Globulin Ratio (1.0-2.8) Procalcitonin (<0.5) ng/mL Urine Color Urine Appearance Urine pH (4.5-8.0) Ur Specific [place] (1.000-1.035) Urine Protein (Negative) Urine Glucose (UA) (Negative) g/dL Urine Ketones (NEGATIVE) Urine Occult Blood (Negative) Urine Nitrate (Negative) Urine Bilirubin (NEGATIVE) Urine Urobilinogen (0.2) E.U./dL Ur Leukocyte Esterase (NEGATIVE) Urine RBC (0-5/HPF) Urine WBC (0-5/HPF) Ur Squamous Epith Cells (0-5/HPF) Amorphous Sediment Urine Bacteria (None) Ur Culture Indicated? 10/19/18 10/19/18 10/19/18 Range/Units 13:43 13:43 13:43 WBC (4.5-11.0) X10^3/uL RBC (4.5-5.9) X10^6/uL Hgb (13.5-17.5) g/dL Hct (41-53) % MCV (80-100) fL MCH (26-34) PG MCHC (30-36) % RDW (11.6-14.8) % Plt Count (150-400) X10^3/uL Neut % (Auto) (50-75) % Lymph % (Auto) (25-40) % Griggs % (Auto) (3-14) % Eos % (Auto) (2-4) % Baso % (Auto) (0-2) % Neut # (Auto) (6739-9901) /uL Lymph # (Auto) (8102-7961) /uL Griggs # (Auto) (0-900) /uL Eos # (Auto) (0-450) /uL Baso # (Auto) (0-100) /uL ESR (0-15) MM/HR Sodium 135 L (137-145) mmol/L Potassium 4.3 (3.4-5.1) mmol/L Chloride 98 (98-107) mmol/L Carbon Dioxide 25 (22-32) mmol/L BUN 13 (9-20) mg/dL Creatinine 1.00 (0.66-1.25) mg/dL Estimated GFR > 60.0 (>60) mL/min BUN/Creatinine Ratio 13.0 (6-22) Glucose 381 H (70-100) mg/dL Lactate 1.4 (0.7-2.1) mmol/L Calcium 8.4 (8.4-10.2) mg/dL Total Bilirubin 1.1 (0.2-1.3) mg/dL AST 52 (17-59) IU/L ALT 29 (21-72) IU/L Alkaline Phosphatase 137 H (38-126) U/L C-Reactive Protein (<1.0) mg/dL Total Protein 7.0 (6.3-8.2) g/dL Albumin 3.9 (3.5-5.0) g/dL Globulin 3.1 (1.7-4.1) g/dL Albumin/Globulin Ratio 1.3 (1.0-2.8) Procalcitonin 0.19 (<0.5) ng/mL Urine Color Urine Appearance Urine pH (4.5-8.0) Ur Specific [place] (1.000-1.035) Urine Protein (Negative) Urine Glucose (UA) (Negative) g/dL Urine Ketones (NEGATIVE) Urine Occult Blood (Negative) Urine Nitrate (Negative) Urine Bilirubin (NEGATIVE) Urine Urobilinogen (0.2) E.U./dL Ur Leukocyte Esterase (NEGATIVE) Urine RBC (0-5/HPF) Urine WBC (0-5/HPF) Ur Squamous Epith Cells (0-5/HPF) Amorphous Sediment Urine Bacteria (None) Ur Culture Indicated? 10/19/18 Range/Units 15:15 WBC (4.5-11.0) X10^3/uL RBC (4.5-5.9) X10^6/uL Hgb (13.5-17.5) g/dL Hct (41-53) % MCV (80-100) fL MCH (26-34) PG MCHC (30-36) % RDW (11.6-14.8) % Plt Count (150-400) X10^3/uL Neut % (Auto) (50-75) % Lymph % (Auto) (25-40) % Gr[place]gs % (Auto) (3-14) % Eos % (Auto) (2-4) % Baso % (Auto) (0-2) % Neut # (Auto) (3753-5528) /uL Lymph # (Auto) (6739-9257) /uL [place]gs # (Auto) (0-900) /uL Eos # (Auto) (0-450) /uL Baso # (Auto) (0-100) /uL ESR (0-15) MM/HR Sodium (137-145) mmol/L Potassium (3.4-5.1) mmol/L Chloride (98-107) mmol/L Carbon Dioxide (22-32) mmol/L BUN (9-20) mg/dL Creatinine (0.66-1.25) mg/dL Estimated GFR (>60) mL/min BUN/Creatinine Ratio (6-22) Glucose (70-100) mg/dL Lactate (0.7-2.1) mmol/L Calcium (8.4-10.2) mg/dL Total Bilirubin (0.2-1.3) mg/dL AST (17-59) IU/L ALT (21-72) IU/L Alkaline Phosphatase (38-126) U/L C-Reactive Protein (<1.0) mg/dL Total Protein (6.3-8.2) g/dL Albumin (3.5-5.0) g/dL Globulin (1.7-4.1) g/dL Albumin/Globulin Ratio (1.0-2.8) Procalcitonin (<0.5) ng/mL Urine Color Yellow Urine Appearance Sl cloudy Urine pH 7.0 (4.5-8.0) Ur Specific [place] 1.015 (1.000-1.035) Urine Protein Negative (Negative) Urine Glucose (UA) 2+ H (Negative) g/dL Urine Ketones Negative (NEGATIVE) Urine Occult Blood Negative (Negative) Urine Nitrate Positive (Negative) Urine Bilirubin Negative (NEGATIVE) Urine Urobilinogen 0.2 (0.2) E.U./dL Ur Leukocyte Esterase Negative (NEGATIVE) Urine RBC None seen (0-5/HPF) Urine WBC 10-30/hpf H (0-5/HPF) Ur Squamous Epith Cells 0-1 /hpf (0-5/HPF) Amorphous Sediment 1+ Urine Bacteria Many (>30) H (None) Ur Culture Indicated? Specimen cultured Imaging Data Lower extremity CT: Radiologist's impression: Lalo Han 42 M [address] [address] [address] Scan Report Signed Patient: Lalo Han [facility]#: [id number] : 1975Acct:[id number] Age/Sex: 42 / MDate of Service: 10/19/18 Loc: ED Accession Number: [id number] Procedure: CT LE RT w con Ordering Provider: Zainab Amador PROCEDURE: CT LE RT W CON INDICATIONS: wound, ulcer right foot TECHNIQUE: After the administration of intravenous contrast, 3 mm axial sections acquired of the right foot, with coronal and sagittal reformats. COMPARISON: [facility], CR, XR FOOT RT MIN 3V, 10/19/2018, 13:21. FINDINGS: Image quality: Excellent. Bones: Slightly increased internal trabeculation involving the head of the fifth metacarpal. There is a single questionable area of erosive change along the medial base of the fifth proximal phalanx (series 2 image 291). There is a healed deformity of the remote fourth proximal phalanx impaction fracture at the neck. There are hammertoe deformities 2 through 5. Bony alignment is otherwise normal. There is a well delineated irregular shaped sclerotic bone lesion measuring 2.2 cm the distal tibial metaphysis, likely an enchondroma or remote bone infarct. Soft tissues: Moderate subcutaneous edema along the dorsolateral aspect of the foot. A peripherally enhancing periarticular fluid collection adjacent, plantar and lateral to the fifth MTP joint measuring 3.2 cm in maximal diameter. There is mild enhancement of the fifth MTP joint capsule and a small joint effusion is suspected. These findings are immediately underlying a soft tissue defect. IMPRESSION: 1. 2.2 cm peripherally enhancing fluid collection concerning for abscess in the soft tissues adjacent to the fifth metatarsophalangeal joint. 2. There is a single questionable erosive change along the base of the fifth proximal phalanx. In combination with possible small joint effusion and mild capsular enhancement, this is suspicious for early septic arthritis. 3. There is subtle alteration mineralization of the fifth metatarsal head which may indicate early osteomyelitis. This could be further best evaluated by MRI or nuclear medicine bone scan. 4. 2.2 cm delineated sclerotic lesion in distal tibia suggestive of enchondroma or bone infarct. Dictated by: Jessica Freeman M.D. on 10/19/2018 at 14:20 Approved by: Jessica Freeman M.D. on 10/19/2018 at 14:33 Chest x-ray: Radiologist's impression: EmelyLalo Keen 42 M [address] [address] XRay Report Signed Patient: Lalo Han CMR#: [id number] : 1975Acct:[id number] Age/Sex: 42 / MDate of Service: 10/19/18 Loc: ED Accession Number: [id number] Procedure: XR chest 1V Ordering Provider: Zainab Amador BOG WORKER-BC PROCEDURE: XR CHEST 1V INDICATIONS: fever, cough TECHNIQUE: One view of the chest was acquired. COMPARISON: [facility], , CHEST 1 VIEW, 07/26/2017, 3:38. FINDINGS: Surgical changes and devices: Low anterior cervical fusion has been performed. Lungs and pleura: Lungs are clear. No pleural effusions or pneumothorax. Mediastinum: Mediastinal contours appear normal. Heart size is normal. Bones and chest wall: No suspicious bony lesions. Overlying soft tissues appear unremarkable. IMPRESSION: No acute process. Dictated by: Brian Wei M.D. on 10/19/2018 at 14:16 Approved by: Brian Wei M.D. on 10/19/2018 at 14:17 Foot x-ray: Radiologist's impression: [facility] DATE TYPE STATUS AUTHOR 10/19/18 14:46 Jessica Freeman 10/19/18 13:44 Brian Wei 10/19/18 13:18 Brian Wei 09/08/18 10:21 Crissy Martinez 08/01/18 08:58 Gabe Valle 08/01/18 00:00 Gabe Valle 05/08/18 08:54 05/08/18 00:00 Hector Lai 02/21/18 14:53 Ritu Infante 01/19/18 14:57 01/19/18 00:00 Maria M Schwarz 08/31/17 21:42 Yariel Dumont Gabriel C 42, M1975 ADM [place], AC 217 -1 185.42cm 70kg BMI: 20.4kg/m? Search Chart No Data to Display NF - Not included in interaction checking Tongue swelling, hives PLASTIC TAPE ONSET Today 19:00 Lalo Han 42 M [address] [address] XRay Report Signed Patient: Lalo Han CMR#: [id number] : 1975Acct:[id number] Age/Sex: 42 / MDate of Service: 10/19/18 Loc: ED Accession Number: [id number] Procedure: XR foot RT min 3V Ordering Provider: Zainab Amador-BC PROCEDURE: XR FOOT RT MIN 3V INDICATIONS: wound to rt lateral foot TECHNIQUE: 3 views of the foot were acquired. COMPARISON: None. FINDINGS: Bones: No fractures or dislocations. No suspicious bony lesions. Calcaneal spurring. Soft tissues: Soft tissue swelling and ulceration lateral to the 5th metatarsal phalangeal joint is present. No tibiotalar joint effusion. Achilles tendon appears normal. IMPRESSION: Soft tissue swelling laterally. No acute fracture. No osseous lesion. If symptoms and/or clinical suspicion for pathology persist, further assessment with repeat, or advanced imaging (e.g., CT, MRI, or bone scan) may be helpful for further assessment. Dictated by: Brian Wei M.D. on 10/19/2018 at 13:38 Approved by: Brian Wei M.D. on 10/19/2018 at 13:39 MDM Narrative Medical decision making narrative: The patient is a 42-year-old male with history of CML as well as diabetes who presents with a chief complaint of foot pain. He has a new wound on exam, not sure of how long it has been there. CT is concerning for osteo versus septic joint. He definitely has overlying cellulitis. Given that he is diabetic and immunocompromise, as well as poor follow-up, I am concerned about discharging this patient. I did speak with Dr. Torres regarding the patient, who suggested outpatient therapy. However spoke with Dr. Lugo to admit the patient, who kindly agreed to accept the patient for admission. In the emergency department I initiated treatment for osteo including vancomycin. The patient is type 2 diabetic with a history of DKA, but is not in DKA at this time with a CO2 of 25. He was given IV fluids in the emergency department. He does not have an elevated white blood cell,, normal lactate or procalcitonin. However given clinical clinical concern of the patient, I did contact the hospitalist for admission despite orthopedic recommendations. Patient stated understanding of admission, and was okay with staying at this facility. The patient was afebrile and hemodynamically stable throughout his stay in the emergency department. <Zainab Patrick, DO - Last Filed: 10/19/18 19:56> Lab Data Lab Results 10/19/18 10/19/18 10/19/18 Range/Units 13:42 13:42 13:43 WBC 8.2 (4.5-11.0) X10^3/uL RBC 3.76 L (4.5-5.9) X10^6/uL Hgb 12.6 L (13.5-17.5) g/dL Hct 36.7 L (41-53) % MCV 97.6 (80-100) fL MCH 33.5 (26-34) PG MCHC 34.3 (30-36) % RDW 15.5 H (11.6-14.8) % Plt Count 54 L (150-400) X10^3/uL Neut % (Auto) 86.3 H (50-75) % Lymph % (Auto) 3.9 L (25-40) % [place] % (Auto) 9.2 (3-14) % Eos % (Auto) 0.0 L (2-4) % Baso % (Auto) 0.6 (0-2) % Neut # (Auto) 7000 (1277-0329) /uL Lymph # (Auto) 300 L (0506-7282) /uL [place] # (Auto) 700 (0-900) /uL Eos # (Auto) 0 (0-450) /uL Baso # (Auto) 0 (0-100) /uL ESR 36 H (0-15) MM/HR Sodium (137-145) mmol/L Potassium (3.4-5.1) mmol/L Chloride (98-107) mmol/L Carbon Dioxide (22-32) mmol/L BUN (9-20) mg/dL Creatinine (0.66-1.25) mg/dL Estimated GFR (>60) mL/min BUN/Creatinine Ratio (6-22) Glucose (70-100) mg/dL Lactate (0.7-2.1) mmol/L Calcium (8.4-10.2) mg/dL Total Bilirubin (0.2-1.3) mg/dL AST (17-59) IU/L ALT (21-72) IU/L Alkaline Phosphatase (38-126) U/L C-Reactive Protein 8.4 H (<1.0) mg/dL Total Protein (6.3-8.2) g/dL Albumin (3.5-5.0) g/dL Globulin (1.7-4.1) g/dL Albumin/Globulin Ratio (1.0-2.8) Procalcitonin (<0.5) ng/mL Urine Color Urine Appearance Urine pH (4.5-8.0) Ur Specific [place] (1.000-1.035) Urine Protein (Negative) Urine Glucose (UA) (Negative) g/dL Urine Ketones (NEGATIVE) Urine Occult Blood (Negative) Urine Nitrate (Negative) Urine Bilirubin (NEGATIVE) Urine Urobilinogen (0.2) E.U./dL Ur Leukocyte Esterase (NEGATIVE) Urine RBC (0-5/HPF) Urine WBC (0-5/HPF) Ur Squamous Epith Cells (0-5/HPF) Amorphous Sediment Urine Bacteria (None) Ur Culture Indicated? 10/19/18 10/19/18 10/19/18 Range/Units 13:43 13:43 13:43 WBC (4.5-11.0) X10^3/uL RBC (4.5-5.9) X10^6/uL Hgb (13.5-17.5) g/dL Hct (41-53) % MCV (80-100) fL MCH (26-34) PG MCHC (30-36) % RDW (11.6-14.8) % Plt Count (150-400) X10^3/uL Neut % (Auto) (50-75) % Lymph % (Auto) (25-40) % [place] % (Auto) (3-14) % Eos % (Auto) (2-4) % Baso % (Auto) (0-2) % Neut # (Auto) (9930-7015) /uL Lymph # (Auto) (9080-6418) /uL [place]gs # (Auto) (0-900) /uL Eos # (Auto) (0-450) /uL Baso # (Auto) (0-100) /uL ESR (0-15) MM/HR Sodium 135 L (137-145) mmol/L Potassium 4.3 (3.4-5.1) mmol/L Chloride 98 (98-107) mmol/L Carbon Dioxide 25 (22-32) mmol/L BUN 13 (9-20) mg/dL Creatinine 1.00 (0.66-1.25) mg/dL Estimated GFR > 60.0 (>60) mL/min BUN/Creatinine Ratio 13.0 (6-22) Glucose 381 H (70-100) mg/dL Lactate 1.4 (0.7-2.1) mmol/L Calcium 8.4 (8.4-10.2) mg/dL Total Bilirubin 1.1 (0.2-1.3) mg/dL AST 52 (17-59) IU/L ALT 29 (21-72) IU/L Alkaline Phosphatase 137 H (38-126) U/L C-Reactive Protein (<1.0) mg/dL Total Protein 7.0 (6.3-8.2) g/dL Albumin 3.9 (3.5-5.0) g/dL Globulin 3.1 (1.7-4.1) g/dL Albumin/Globulin Ratio 1.3 (1.0-2.8) Procalcitonin 0.19 (<0.5) ng/mL Urine Color Urine Appearance Urine pH (4.5-8.0) Ur Specific [place] (1.000-1.035) Urine Protein (Negative) Urine Glucose (UA) (Negative) g/dL Urine Ketones (NEGATIVE) Urine Occult Blood (Negative) Urine Nitrate (Negative) Urine Bilirubin (NEGATIVE) Urine Urobilinogen (0.2) E.U./dL Ur Leukocyte Esterase (NEGATIVE) Urine RBC (0-5/HPF) Urine WBC (0-5/HPF) Ur Squamous Epith Cells (0-5/HPF) Amorphous Sediment Urine Bacteria (None) Ur Culture Indicated? 10/19/18 Range/Units 15:15 WBC (4.5-11.0) X10^3/uL RBC (4.5-5.9) X10^6/uL Hgb (13.5-17.5) g/dL Hct (41-53) % MCV (80-100) fL MCH (26-34) PG MCHC (30-36) % RDW (11.6-14.8) % Plt Count (150-400) X10^3/uL Neut % (Auto) (50-75) % Lymph % (Auto) (25-40) % [place] % (Auto) (3-14) % Eos % (Auto) (2-4) % Baso % (Auto) (0-2) % Neut # (Auto) (3039-9078) /uL Lymph # (Auto) (3219-3556) /uL [place]gs # (Auto) (0-900) /uL Eos # (Auto) (0-450) /uL Baso # (Auto) (0-100) /uL ESR (0-15) MM/HR Sodium (137-145) mmol/L Potassium (3.4-5.1) mmol/L Chloride (98-107) mmol/L Carbon Dioxide (22-32) mmol/L BUN (9-20) mg/dL Creatinine (0.66-1.25) mg/dL Estimated GFR (>60) mL/min BUN/Creatinine Ratio (6-22) Glucose (70-100) mg/dL Lactate (0.7-2.1) mmol/L Calcium (8.4-10.2) mg/dL Total Bilirubin (0.2-1.3) mg/dL AST (17-59) IU/L ALT (21-72) IU/L Alkaline Phosphatase (38-126) U/L C-Reactive Protein (<1.0) mg/dL Total Protein (6.3-8.2) g/dL Albumin (3.5-5.0) g/dL Globulin (1.7-4.1) g/dL Albumin/Globulin Ratio (1.0-2.8) Procalcitonin (<0.5) ng/mL Urine Color Yellow Urine Appearance Sl cloudy Urine pH 7.0 (4.5-8.0) Ur Specific [place] 1.015 (1.000-1.035) Urine Protein Negative (Negative) Urine Glucose (UA) 2+ H (Negative) g/dL Urine Ketones Negative (NEGATIVE) Urine Occult Blood Negative (Negative) Urine Nitrate Positive (Negative) Urine Bilirubin Negative (NEGATIVE) Urine Urobilinogen 0.2 (0.2) E.U./dL Ur Leukocyte Esterase Negative (NEGATIVE) Urine RBC None seen (0-5/HPF) Urine WBC 10-30/hpf H (0-5/HPF) Ur Squamous Epith Cells 0-1 /hpf (0-5/HPF) Amorphous Sediment 1+ Urine Bacteria Many (>30) H (None) Ur Culture Indicated? Specimen cultured Discharge Plan Departure Patient Disposition: Admitted As Inpatient Clinical Impression: Wound abscess Osteomyelitis Qualifiers: Osteomyelitis type: other Osteomyelitis location: foot Laterality: left Qualified Code(s): M86.8X7 - Other osteomyelitis, ankle and foot Discharge Date/Time: 10/19/18 18:40 Interventions: ED Discharge Assessment Last Done: 10/19/18 18:40 Admit Date/Time: 10/19/18 16:47 Admit Provider: Prudencio Lugo <Zainab Patrick DO - Last Filed: 10/19/18 19:56> Cosign ED Attending Cosignature Attestation: I was immediately available in the department for consultation, case discussed. Plan for admission, starting Vanco and coverage for osteo. 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 This documentation has been reviewed and I agree with assessment and plan. Supervised by Zainab Patrick DO
--- NOTE | 2018-10-19 19:23 | ED_ITS ---
HPI - Extremity Problem <Zainab AmadorDAVID-BC - Last Filed: 10/19/18 19:54> General Chief complaint: Extremity Problem,Nontraumatic Stated complaint: right foot swelling and burning x2 days Time Seen by Provider: 10/19/18 13:09 Source: patient Mode of arrival: ambulatory Limitations: no limitations History of Present Illness HPI Narrative: The patient is a 42-year-old male current smoker with history of CML, diabetes and osteomyelitis who presents with a chief complaint of right foot pain. He denies any fevers, but complains of chills and aches. He denies any vomiting, but complains of nausea. He states his right foot is red and warm. He denies any chest pain, but complains of some coughing. He denies any congestion. He states he has a history of pneumonia, alcoholism, IV drug use and anxiety. Use admitted at [facility] for osteomyelitis of his spine. Related Data Home Medications Medication Instructions Recorded Confirmed Syringes 1 syr MISCELLANEOUS DIRECTED 11/10/17 10/19/18 imatinib [Gleevec] 300 mg PO QPM 12/16/17 10/19/18 True Metrix test strips 0 strip .ROUTE .MEDSUPPLY 04/06/18 10/19/18 Previous Rx's Medication Instructions Recorded BD U/F Hilda Pen Needle [id number] #100 each 06/13/18 insulin lispro (U- 100) 100 1 - 12 unit SUBCUT TIDCC #1 ea 06/13/18 unit/mL subcutaneous pen ondansetron 4 mg disintegrating 4 mg PO QID PRN #30 tab 07/15/18 tablet meloxicam 15 mg tablet 15 mg PO DAILY #30 tab 07/29/18 insulin glargine (U-100) 100 25 unit SUBCUT BID #15 ml 08/02/18 unit/mL (3 mL) subcutaneous pen lorazepam 1 mg PO BID 30 Days #60 tab 09/21/18 prochlorperazine maleate 10 mg PO Q6H PRN #30 tab 10/04/18 [Compazine] Allergies Allergy/AdvReac Type Severity Reaction Status Date / Time Penicillins [PENICILLINS] Allergy Severe Tongue Verified 10/19/18 12:54 swelling, hives adhesive Allergy Unknown PLASTIC Verified 10/19/18 12:54 TAPE latex [LATEX] Allergy Unknown Verified 10/19/18 12:54 Review of Systems <ZACH Lauren - Last Filed: 10/19/18 19:54> Review of Systems GENERAL: See HPI HEENT: Denies sinus pain, ear pain, sore throat, difficulty swallowing, dizzin ess. RESPIRATORY: Denies dyspnea, cough, wheezing, hemoptysis, sputum. CARDIOVASCULAR: Denies chest pain, palpitations, orthopnea, edema, GASTROINTESTINAL: See HPI : See HPI MUSCULOSKELETAL: denies weakness, joint pain, or bony pain SKIN: Denies rash, skin lesions, or other NEUROLOGIC: Denies weakness, headache, numbness, change in speech, confusion, seizures, incoordination. PSYCHIATRIC: No concerning psychosocial issues. 12 point review of systems is negative except for those stated above PFSH <ZACH Lauren - Last Filed: 10/19/18 19:54> Medical History Alcoholism (Acute) CML (chronic myelocytic leukemia) (Acute) Insulin dependent diabetes mellitus (Acute) Thrombocytopenia (Acute) Surgical History Status post appendectomy Family History Grandfather Diabetes mellitus Mother Cancer Social History household members: none Smoking Status: Former smoker alcohol intake: current Family History Grandfather Diabetes mellitus Mother Cancer Social History household members: none Smoking Status: Former smoker alcohol intake: current Exam <ZACH Lauren - Last Filed: 10/19/18 19:54> Narrative Exam Narrative: GENERAL: This is a well-nourished, well-developed patient, in mild distress. HEAD: Atraumatic. Normocephalic. No temporal or scalp tenderness. EYES: Pupils equal round and reactive. Extraocular motions intact. No scleral icterus. No injection or drainage. ENT: Nose without bleeding, purulent drainage or septal hematoma. Throat without erythema, tonsillar hypertrophy or exudate. Uvula midline. Airway patent. NECK: Trachea midline. No JVD or lymphadenopathy. Supple, nontender, no meningeal signs. CARDIOVASCULAR: Regular rate and rhythm without murmurs, gallops, or rubs. RESPIRATORY: Coarse breath sounds to auscultation. Breath sounds equal bilaterally. No wheezes, rales, or rhonchi. No cough. No increased respiratory effort. No accessory muscle use. GASTROINTESTINAL: Abdomen soft, non-tender, nondistended. No hepato- splenomegaly, or palpable masses. No guarding. Active bowel sounds. EXTREMITIES: See skin exam. Positive pedal pulses bilaterally. Able to flex all toes. BACK: Nontender without deformity or crepitance. No flank tenderness. NEURO: AOx3. SKIN: 1 cm wound distal to 5th toe on right foot. Draining serosanguineous drainage. Erythema noted covering dorsal aspect of right foot. Erythema and wa rmth. Positive pedal pulses. Initial Vital Signs Initial Vital Signs: Vital Signs Temperature 99.3 F 10/19/18 12:45 Pulse Rate 86 10/19/18 12:45 Respiratory Rate 18 10/19/18 12:45 Blood Pressure 176/93 H 10/19/18 12:45 Pulse Oximetry 98 10/19/18 12:45 <Zainab Patrick DO - Last Filed: 10/19/18 19:56> Initial Vital Signs Initial Vital Signs: Vital Signs Temperature 99.3 F 10/19/18 12:45 Pulse Rate 86 10/19/18 12:45 Respiratory Rate 18 10/19/18 12:45 Blood Pressure 176/93 H 10/19/18 12:45 Pulse Oximetry 98 10/19/18 12:45 Course <DAVID Lauren-BC - Last Filed: 10/19/18 19:54> Course Narrative: I checked on the patient several times throughout his stay in the ER Orders Ordered: ED Orders 10/19/18 13:18 XR foot RT min 3V Stat 10/19/18 13:42 C-Reactive Protein Quant Stat Erythrocyte Sedimentation Rate Stat 10/19/18 13:43 Complete Blood Count AUTO DIFF Stat Comprehensive Metabolic Panel Stat Lactate (Lactic Acid) Stat Procalcitonin Stat 10/19/18 13:44 XR chest 1V Stat 10/19/18 13:58 Blood Culture Stat 10/19/18 14:46 CT LE RT w con Stat 10/19/18 15:15 Urinalysis and Microscopic Stat Urine Culture Stat 10/19/18 16:05 Wound Culture and Gram Stain Stat 10/19/18 18:20 Education, smoking cessation ONGOING 10/19/18 18:36 Consult to Physician Routine 10/20/18 18:15 Vancomycin Trough Urgent Acetaminophen (Tylenol) 650 mg PO Q6HR PRN PRN Reason: As Needed for Fever/Mild Pain Bisacodyl (Dulcolax) 10 mg PO DAILY PRN PRN Reason: Constipation Dextrose (D50w) 25 gm IV PRN PRN; Protocol PRN Reason: Hypoglycemia Meropenem (Merrem) 1 gm in 50 mls @ 100 mls/hr IV Q8H ROBIN Vancomycin HCl 1,250 mg/ (Sodium Chloride) 250 mls @ 250 mls/hr IV Q8H ROBIN Last Admin: 10/19/18 19:16 Dose: Not Given Insulin Aspart (Novolog Flexpen) 0 unit SUBCUT ACHS ROBIN; Protocol Insulin Aspart (Novolog Flexpen) 5 [facility]BCUT [facility] Insulin Glargine (Lantus Solostar (Pen)) 25 unit SUBCUT BID ROBIN Lorazepam (Ativan) 1 mg PO BID ROBIN Magnesium Hydroxide (Milk Of Magnesia) 30 ml PO DAILY PRN PRN Reason: Constipation Meloxicam (Mobic) 15 mg PO [facility]ILY [facility] Nicotine (Nicoderm) 14 mg TOP DA[facility] Imatinib [Gleevec] (300 Mg) 300 mg PO QPM ROBIN Ondansetron HCl (Zofran) 4 mg IV Q4HR PRN PRN Reason: Nausea And Vomiting Vancomycin HCl (Vancomycin Trough) 1 request MISC NOW ONE Stop: 10/20/18 18:16 Discontinued Medications Hydromorphone HCl (Dilaudid) 1 mg IV NOW ONE Stop: 10/19/18 16:32 Last Admin: 10/19/18 16:39 Dose: 1 mg Hydromorphone HCl (Dilaudid) 0.5 mg IV NOW ONE Stop: 10/19/18 17:54 Last Admin: 10/19/18 18:40 Dose: 0.5 mg Sodium Chloride (Normal Saline 0.9%) 1,000 mls @ 1,000 mls/hr IV BOLUS ONE Stop: 10/19/18 14:40 Last Infusion: 10/19/18 16:19 Dose: 0 mls/hr Admin: 10/19/18 13:56 Dose: 1,000 mls/hr Vancomycin HCl 2,000 mg/ (Sodium Chloride) 500 mls @ 250 mls/hr IV NOW ONE Stop: 10/19/18 15:55 Last Infusion: 10/19/18 19:10 Dose: 250 mls/hr Admin: 10/19/18 16:25 Dose: 250 mls/hr Piperacillin/Tazobactam/Dextrose (Zosyn) 3.375 gm in 50 mls @ 100 mls/hr IV Q6H ROBIN Last Admin: 10/19/18 19:13 Dose: Not Given Morphine Sulfate (Morphine) 4 mg IV NOW ONE Stop: 10/19/18 13:57 Last Admin: 10/19/18 13:57 Dose: 4 mg Morphine Sulfate (Morphine) 4 mg IV NOW ONE Stop: 10/19/18 14:32 Last Admin: 10/19/18 14:40 Dose: 4 mg Nicotine (Nicoderm) 14 mg TOP NOW ONE Stop: 10/19/18 19:23 Ondansetron HCl (Zofran) 4 mg IV NOW ONE Stop: 10/19/18 13:41 Last Admin: 10/19/18 13:56 Dose: 4 mg Vancomycin HCl (Vancomycin Per Pharmacy) 1 request MISC NOW ONE Stop: 10/19/18 18:21 Vital Signs - 8 hr 10/19/18 12:45 10/19/18 17:01 10/19/18 19:00 Temperature 99.3 F 100.7 F H Pulse Rate 86 79 83 Respiratory Rate 18 18 Blood Pressure 176/93 H 132/88 Blood Pressure [Left Arm] 151/85 H Pulse Oximetry 98 98 <Zainab Patrick DO - Last Filed: 10/19/18 19:56> Orders Ordered: ED Orders 10/19/18 13:18 XR foot RT min 3V Stat 10/19/18 13:42 C-Reactive Protein Quant Stat Erythrocyte Sedimentation Rate Stat 10/19/18 13:43 Complete Blood Count AUTO DIFF Stat Comprehensive Metabolic Panel Stat Lactate (Lactic Acid) Stat Procalcitonin Stat 10/19/18 13:44 XR chest 1V Stat 10/19/18 13:58 Blood Culture Stat 10/19/18 14:46 CT LE RT w con Stat 10/19/18 15:15 Urinalysis and Microscopic Stat Urine Culture Stat 10/19/18 16:05 Wound Culture and Gram Stain Stat 10/19/18 18:20 Education, smoking cessation ONGOING 10/19/18 18:36 Consult to Physician Routine 10/20/18 18:15 Vancomycin Trough Urgent Acetaminophen (Tylenol) 650 mg PO Q6HR PRN PRN Reason: As Needed for Fever/Mild Pain Bisacodyl (Dulcolax) 10 mg PO DAILY PRN PRN Reason: Constipation Dextrose (D50w) 25 gm IV PRN PRN; Protocol PRN Reason: Hypoglycemia Meropenem (Merrem) 1 gm in 50 mls @ 100 mls/hr IV Q8H ROBIN Vancomycin HCl 1,250 mg/ (Sodium Chloride) 250 mls @ 250 mls/hr IV [facility] Last Admin: 10/19/18 19:16 Dose: Not Given Insulin Aspart (Novolog Flexpen) 0 unit SUBCUT ACHS ROBIN; Protocol Insulin Aspart (Novolog Flexpen) 5 unit SUBCUT [facility] Insulin Glargine (Lantus Solostar (Pen)) 25 unit SUBCUT BID ROBIN Lorazepam (Ativan) 1 mg PO BID ROBIN Magnesium Hydroxide (Milk Of Magnesia) 30 ml PO DAILY PRN PRN Reason: Constipation Meloxicam (Mobic) 15 mg PO [facility] Nicotine (Nicoderm) 14 mg TOP [facility] Imatinib [Gleevec] (300 Mg) 300 mg PO QPM ROBIN Ondansetron HCl (Zofran) 4 mg IV Q4HR PRN PRN Reason: Nausea And Vomiting Vancomycin HCl (Vancomycin Trough) 1 request MISC NOW ONE Stop: 10/20/18 18:16 Discontinued Medications Hydromorphone HCl (Dilaudid) 1 mg IV NOW ONE Stop: 10/19/18 16:32 Last Admin: 10/19/18 16:39 Dose: 1 mg Hydromorphone HCl (Dilaudid) 0.5 mg IV NOW ONE Stop: 10/19/18 17:54 Last Admin: 10/19/18 18:40 Dose: 0.5 mg Sodium Chloride (Normal Saline 0.9%) 1,000 mls @ 1,000 mls/hr IV BOLUS ONE Stop: 10/19/18 14:40 Last Infusion: 10/19/18 16:19 Dose: 0 mls/hr Admin: 10/19/18 13:56 Dose: 1,000 mls/hr Vancomycin HCl 2,000 mg/ (Sodium Chloride) 500 mls @ 250 mls/hr IV NOW ONE Stop: 10/19/18 15:55 Last Infusion: 10/19/18 19:10 Dose: 250 mls/hr Admin: 10/19/18 16:25 Dose: 250 mls/hr Piperacillin/Tazobactam/Dextrose (Zosyn) 3.375 gm in 50 mls @ 100 mls/hr IV Q6H ROBIN Last Admin: 10/19/18 19:13 Dose: Not Given Morphine Sulfate (Morphine) 4 mg IV NOW ONE Stop: 10/19/18 13:57 Last Admin: 10/19/18 13:57 Dose: 4 mg Morphine Sulfate (Morphine) 4 mg IV NOW ONE Stop: 10/19/18 14:32 Last Admin: 10/19/18 14:40 Dose: 4 mg Nicotine (Nicoderm) 14 mg TOP NOW ONE Stop: 10/19/18 19:23 Ondansetron HCl (Zofran) 4 mg IV NOW ONE Stop: 10/19/18 13:41 Last Admin: 10/19/18 13:56 Dose: 4 mg Vancomycin HCl (Vancomycin Per Pharmacy) 1 request MISC NOW ONE Stop: 10/19/18 18:21 Vital Signs - 8 hr 10/19/18 12:45 10/19/18 17:01 10/19/18 19:00 Temperature 99.3 F 100.7 F H Pulse Rate 86 79 83 Respiratory Rate 18 18 Blood Pressure 176/93 H 132/88 Blood Pressure [Left Arm] 151/85 H Pulse Oximetry 98 98 MDM - Extremity (Nontraumatic) <DAVID Lauren-RAY - Last Filed: 10/19/18 19:54> Lab Data Result diagrams: 10/19/18 13:43 10/19/18 13:43 Lab Results 10/19/18 10/19/18 10/19/18 Range/Units 13:42 13:42 13:43 WBC 8.2 (4.5-11.0) X10^3/uL RBC 3.76 L (4.5-5.9) X10^6/uL Hgb 12.6 L (13.5-17.5) g/dL Hct 36.7 L (41-53) % MCV 97.6 (80-100) fL MCH 33.5 (26-34) PG MCHC 34.3 (30-36) % RDW 15.5 H (11.6-14.8) % Plt Count 54 L (150-400) X10^3/uL Neut % (Auto) 86.3 H (50-75) % Lymph % (Auto) 3.9 L (25-40) % Deuel % (Auto) 9.2 (3-14) % Eos % (Auto) 0.0 L (2-4) % Baso % (Auto) 0.6 (0-2) % Neut # (Auto) 7000 (9183-6770) /uL Lymph # (Auto) 300 L (3764-0192) /uL Deuel # (Auto) 700 (0-900) /uL Eos # (Auto) 0 (0-450) /uL Baso # (Auto) 0 (0-100) /uL ESR 36 H (0-15) MM/HR Sodium (137-145) mmol/L Potassium (3.4-5.1) mmol/L Chloride (98-107) mmol/L Carbon Dioxide (22-32) mmol/L BUN (9-20) mg/dL Creatinine (0.66-1.25) mg/dL Estimated GFR (>60) mL/min BUN/Creatinine Ratio (6-22) Glucose (70-100) mg/dL Lactate (0.7-2.1) mmol/L Calcium (8.4-10.2) mg/dL Total Bilirubin (0.2-1.3) mg/dL AST (17-59) IU/L ALT (21-72) IU/L Alkaline Phosphatase (38-126) U/L C-Reactive Protein 8.4 H (<1.0) mg/dL Total Protein (6.3-8.2) g/dL Albumin (3.5-5.0) g/dL Globulin (1.7-4.1) g/dL Albumin/Globulin Ratio (1.0-2.8) Procalcitonin (<0.5) ng/mL Urine Color Urine Appearance Urine pH (4.5-8.0) Ur Specific [place] (1.000-1.035) Urine Protein (Negative) Urine Glucose (UA) (Negative) g/dL Urine Ketones (NEGATIVE) Urine Occult Blood (Negative) Urine Nitrate (Negative) Urine Bilirubin (NEGATIVE) Urine Urobilinogen (0.2) E.U./dL Ur Leukocyte Esterase (NEGATIVE) Urine RBC (0-5/HPF) Urine WBC (0-5/HPF) Ur Squamous Epith Cells (0-5/HPF) Amorphous Sediment Urine Bacteria (None) Ur Culture Indicated? 10/19/18 10/19/18 10/19/18 Range/Units 13:43 13:43 13:43 WBC (4.5-11.0) X10^3/uL RBC (4.5-5.9) X10^6/uL Hgb (13.5-17.5) g/dL Hct (41-53) % MCV (80-100) fL MCH (26-34) PG MCHC (30-36) % RDW (11.6-14.8) % Plt Count (150-400) X10^3/uL Neut % (Auto) (50-75) % Lymph % (Auto) (25-40) % Deuel % (Auto) (3-14) % Eos % (Auto) (2-4) % Baso % (Auto) (0-2) % Neut # (Auto) (8850-1487) /uL Lymph # (Auto) (4734-1630) /uL Deuel # (Auto) (0-900) /uL Eos # (Auto) (0-450) /uL Baso # (Auto) (0-100) /uL ESR (0-15) MM/HR Sodium 135 L (137-145) mmol/L Potassium 4.3 (3.4-5.1) mmol/L Chloride 98 (98-107) mmol/L Carbon Dioxide 25 (22-32) mmol/L BUN 13 (9-20) mg/dL Creatinine 1.00 (0.66-1.25) mg/dL Estimated GFR > 60.0 (>60) mL/min BUN/Creatinine Ratio 13.0 (6-22) Glucose 381 H (70-100) mg/dL Lactate 1.4 (0.7-2.1) mmol/L Calcium 8.4 (8.4-10.2) mg/dL Total Bilirubin 1.1 (0.2-1.3) mg/dL AST 52 (17-59) IU/L ALT 29 (21-72) IU/L Alkaline Phosphatase 137 H (38-126) U/L C-Reactive Protein (<1.0) mg/dL Total Protein 7.0 (6.3-8.2) g/dL Albumin 3.9 (3.5-5.0) g/dL Globulin 3.1 (1.7-4.1) g/dL Albumin/Globulin Ratio 1.3 (1.0-2.8) Procalcitonin 0.19 (<0.5) ng/mL Urine Color Urine Appearance Urine pH (4.5-8.0) Ur Specific [place] (1.000-1.035) Urine Protein (Negative) Urine Glucose (UA) (Negative) g/dL Urine Ketones (NEGATIVE) Urine Occult Blood (Negative) Urine Nitrate (Negative) Urine Bilirubin (NEGATIVE) Urine Urobilinogen (0.2) E.U./dL Ur Leukocyte Esterase (NEGATIVE) Urine RBC (0-5/HPF) Urine WBC (0-5/HPF) Ur Squamous Epith Cells (0-5/HPF) Amorphous Sediment Urine Bacteria (None) Ur Culture Indicated? 10/19/18 Range/Units 15:15 WBC (4.5-11.0) X10^3/uL RBC (4.5-5.9) X10^6/uL Hgb (13.5-17.5) g/dL Hct (41-53) % MCV (80-100) fL MCH (26-34) PG MCHC (30-36) % RDW (11.6-14.8) % Plt Count (150-400) X10^3/uL Neut % (Auto) (50-75) % Lymph % (Auto) (25-40) % De[place] % (Auto) (3-14) % Eos % (Auto) (2-4) % Baso % (Auto) (0-2) % Neut # (Auto) (6808-0679) /uL Lymph # (Auto) (8626-7319) /uL Deuel # (Auto) (0-900) /uL Eos # (Auto) (0-450) /uL Baso # (Auto) (0-100) /uL ESR (0-15) MM/HR Sodium (137-145) mmol/L Potassium (3.4-5.1) mmol/L Chloride (98-107) mmol/L Carbon Dioxide (22-32) mmol/L BUN (9-20) mg/dL Creatinine (0.66-1.25) mg/dL Estimated GFR (>60) mL/min BUN/Creatinine Ratio (6-22) Glucose (70-100) mg/dL Lactate (0.7-2.1) mmol/L Calcium (8.4-10.2) mg/dL Total Bilirubin (0.2-1.3) mg/dL AST (17-59) IU/L ALT (21-72) IU/L Alkaline Phosphatase (38-126) U/L C-Reactive Protein (<1.0) mg/dL Total Protein (6.3-8.2) g/dL Albumin (3.5-5.0) g/dL Globulin (1.7-4.1) g/dL Albumin/Globulin Ratio (1.0-2.8) Procalcitonin (<0.5) ng/mL Urine Color Yellow Urine Appearance Sl cloudy Urine pH 7.0 (4.5-8.0) Ur Specific [place] 1.015 (1.000-1.035) Urine Protein Negative (Negative) Urine Glucose (UA) 2+ H (Negative) g/dL Urine Ketones Negative (NEGATIVE) Urine Occult Blood Negative (Negative) Urine Nitrate Positive (Negative) Urine Bilirubin Negative (NEGATIVE) Urine Urobilinogen 0.2 (0.2) E.U./dL Ur Leukocyte Esterase Negative (NEGATIVE) Urine RBC None seen (0-5/HPF) Urine WBC 10-30/hpf H (0-5/HPF) Ur Squamous Epith Cells 0-1 /hpf (0-5/HPF) Amorphous Sediment 1+ Urine Bacteria Many (>30) H (None) Ur Culture Indicated? Specimen cultured Imaging Data Lower extremity CT: Radiologist's impression: Lalo Han 42 M [address] [address] [address] Scan Report Signed Patient: Lalo Han CMR#: [id number] : 1975Acct:[id number] Age/Sex: 42 / MDate of Service: 10/19/18 Loc: ED Accession Number: [id number] Procedure: CT LE RT w con Ordering Provider: Zainab Amador PROCEDURE: CT LE RT W CON INDICATIONS: wound, ulcer right foot TECHNIQUE: After the administration of intravenous contrast, 3 mm axial sections acquired of the right foot, with coronal and sagittal reformats. COMPARISON: [facility], CR, XR FOOT RT MIN 3V, 10/19/2018, 13:21. FINDINGS: Image quality: Excellent. Bones: Slightly increased internal trabeculation involving the head of the fifth metacarpal. There is a single questionable area of erosive change along the medial base of the fifth proximal phalanx (series 2 image 291). There is a healed deformity of the remote fourth proximal phalanx impaction fracture at the neck. There are hammertoe deformities 2 through 5. Bony alignment is otherwise normal. There is a well delineated irregular shaped sclerotic bone lesion measuring 2.2 cm the distal tibial metaphysis, likely an enchondroma or remote bone infarct. Soft tissues: Moderate subcutaneous edema along the dorsolateral aspect of the foot. A peripherally enhancing periarticular fluid collection adjacent, plantar and lateral to the fifth MTP joint measuring 3.2 cm in maximal diameter. There is mild enhancement of the fifth MTP joint capsule and a small joint effusion is suspected. These findings are immediately underlying a soft tissue defect. IMPRESSION: 1. 2.2 cm peripherally enhancing fluid collection concerning for abscess in the soft tissues adjacent to the fifth metatarsophalangeal joint. 2. There is a single questionable erosive change along the base of the fifth proximal phalanx. In combination with possible small joint effusion and mild capsular enhancement, this is suspicious for early septic arthritis. 3. There is subtle alteration mineralization of the fifth metatarsal head which may indicate early osteomyelitis. This could be further best evaluated by MRI or nuclear medicine bone scan. 4. 2.2 cm delineated sclerotic lesion in distal tibia suggestive of enchondroma or bone infarct. Dictated by: Jessica Freeman M.D. on 10/19/2018 at 14:20 Approved by: Jessica Freeman M.D. on 10/19/2018 at 14:33 Chest x-ray: Radiologist's impression: EmelyLalo Keen 42 M [address] [address] XRay Report Signed Patient: Lalo Han CMR#: [id number] : 1975Acct:[id number] Age/Sex: 42 / MDate of Service: 10/19/18 Loc: ED Accession Number: [id number] Procedure: XR chest 1V Ordering Provider: Zainab Amador-BC PROCEDURE: XR CHEST 1V INDICATIONS: fever, cough TECHNIQUE: One view of the chest was acquired. COMPARISON: [facility], , CHEST 1 VIEW, 07/26/2017, 3:38. FINDINGS: Surgical changes and devices: Low anterior cervical fusion has been performed. Lungs and pleura: Lungs are clear. No pleural effusions or pneumothorax. Mediastinum: Mediastinal contours appear normal. Heart size is normal. Bones and chest wall: No suspicious bony lesions. Overlying soft tissues appear unremarkable. IMPRESSION: No acute process. Dictated by: Brian Wei M.D. on 10/19/2018 at 14:16 Approved by: Brian Wei M.D. on 10/19/2018 at 14:17 Foot x-ray: Radiologist's impression: [facility] DATE TYPE STATUS AUTHOR Hx 10/19/18 14:46 Jessica Freeman 10/19/18 13:44 Brian Wei 10/19/18 13:18 [facility] 09/08/18 10:21 Crissy Martinez 08/01/18 08:58 Gabe Valle 08/01/18 00:00 Gabe Valle 05/08/18 08:54 05/08/18 00:00 Hector Lai 02/21/18 14:53 Ritu Infante 01/19/18 14:57 01/19/18 00:00 Maria M Schwarz 08/31/17 21:42 Yariel Dumont Luis Fernando Hanriel Osmani 42, M1975 ADM [place], AC 217 -1 185.42cm 70kg BMI: 20.4kg/m? Search Chart No Data to Display NF - Not included in interaction checking Tongue swelling, hives PLASTIC TAPE ONSET Today 19:00 aLlo Han 42 M [address] [address] XRay Report Signed Patient: Lalo Han CMR#: [id number] : 1975Acct:[id number] Age/Sex: 42 / MDate of Service: 10/19/18 Loc: ED Accession Number: [id number] Procedure: XR foot RT min 3V Ordering Provider: Zainab Amador- PROCEDURE: XR FOOT RT MIN 3V INDICATIONS: wound to rt lateral foot TECHNIQUE: 3 views of the foot were acquired. COMPARISON: None. FINDINGS: Bones: No fractures or dislocations. No suspicious bony lesions. Calcaneal spurring. Soft tissues: Soft tissue swelling and ulceration lateral to the 5th metatarsal phalangeal joint is present. No tibiotalar joint effusion. Achilles tendon appears normal. IMPRESSION: Soft tissue swelling laterally. No acute fracture. No osseous lesion. If symptoms and/or clinical suspicion for pathology persist, further assessment with repeat, or advanced imaging (e.g., CT, MRI, or bone scan) may be helpful for further assessment. Dictated by: Brian Wei M.D. on 10/19/2018 at 13:38 Approved by: Brian Wei M.D. on 10/19/2018 at 13:39 MDM Narrative Medical decision making narrative: The patient is a 42-year-old male with his tory of CML as well as diabetes who presents with a chief complaint of foot pain. He has a new wound on exam, not sure of how long it has been there. CT is concerning for osteo versus septic joint. He definitely has overlying cellulitis. Given that he is diabetic and immunocompromise, as well as poor follow-up, I am concerned about discharging this patient. I did speak with Dr. Torres regarding the patient, who suggested outpatient therapy. However spoke with Dr. Lugo to admit the patient, who kindly agreed to accept the patient for admission. In the emergency department I initiated treatment for osteo including vancomycin. The patient is type 2 diabetic with a history of DKA, but is not in DKA at this time with a CO2 of 25. He was given IV fluids in the emergency department. He does not have an elevated white blood cell,, normal lactate or procalcitonin. However given clinical clinical concern of the patient, I did contact the hospitalist for admission despite orthopedic re commendations. Patient stated understanding of admission, and was okay with staying at this facility. The patient was afebrile and hemodynamically stable throughout his stay in the emergency department. <Zainabduglas Hawkinsmargarita, DO - Last Filed: 10/19/18 19:56> Lab Data Lab Results 10/19/18 10/19/18 10/19/18 Range/Units 13:42 13:42 13:43 WBC 8.2 (4.5-11.0) X10^3/uL RBC 3.76 L (4.5-5.9) X10^6/uL Hgb 12.6 L (13.5-17.5) g/dL Hct 36.7 L (41-53) % MCV 97.6 (80-100) fL MCH 33.5 (26-34) PG MCHC 34.3 (30-36) % RDW 15.5 H (11.6-14.8) % Plt Count 54 L (150-400) X10^3/uL Neut % (Auto) 86.3 H (50-75) % Lymph % (Auto) 3.9 L (25-40) % [place] % (Auto) 9.2 (3-14) % Eos % (Auto) 0.0 L (2-4) % Baso % (Auto) 0.6 (0-2) % Neut # (Auto) 7000 (4556-1891) /uL Lymph # (Auto) 300 L (0856-6809) /uL [place] # (Auto) 700 (0-900) /uL Eos # (Auto) 0 (0-450) /uL Baso # (Auto) 0 (0-100) /uL ESR 36 H (0-15) MM/HR Sodium (137-145) mmol/L Potassium (3.4-5.1) mmol/L Chloride (98-107) mmol/L Carbon Dioxide (22-32) mmol/L BUN (9-20) mg/dL Creatinine (0.66-1.25) mg/dL Estimated GFR (>60) mL/min BUN/Creatinine Ratio (6-22) Glucose (70-100) mg/dL Lactate (0.7-2.1) mmol/L Calcium (8.4-10.2) mg/dL Total Bilirubin (0.2-1.3) mg/dL AST (17-59) IU/L ALT (21-72) IU/L Alkaline Phosphatase (38-126) U/L C-Reactive Protein 8.4 H (<1.0) mg/dL Total Protein (6.3-8.2) g/dL Albumin (3.5-5.0) g/dL Globulin (1.7-4.1) g/dL Albumin/Globulin Ratio (1.0-2.8) Procalcitonin (<0.5) ng/mL Urine Color Urine Appearance Urine pH (4.5-8.0) Ur Specific [place] (1.000-1.035) Urine Protein (Negative) Urine Glucose (UA) (Negative) g/dL Urine Ketones (NEGATIVE) Urine Occult Blood (Negative) Urine Nitrate (Negative) Urine Bilirubin (NEGATIVE) Urine Urobilinogen (0.2) E.U./dL Ur Leukocyte Esterase (NEGATIVE) Urine RBC (0-5/HPF) Urine WBC (0-5/HPF) Ur Squamous Epith Cells (0-5/HPF) Amorphous Sediment Urine Bacteria (None) Ur Culture Indicated? 10/19/18 10/19/18 10/19/18 Range/Units 13:43 13:43 13:43 WBC (4.5-11.0) X10^3/uL RBC (4.5-5.9) X10^6/uL Hgb (13.5-17.5) g/dL Hct (41-53) % MCV (80-100) fL MCH (26-34) PG MCHC (30-36) % RDW (11.6-14.8) % Plt Count (150-400) X10^3/uL Neut % (Auto) (50-75) % Lymph % (Auto) (25-40) % [place] % (Auto) (3-14) % Eos % (Auto) (2-4) % Baso % (Auto) (0-2) % Neut # (Auto) (0470-3209) /uL Lymph # (Auto) (6566-2208) /uL [place] # (Auto) (0-900) /uL Eos # (Auto) (0-450) /uL Baso # (Auto) (0-100) /uL ESR (0-15) MM/HR Sodium 135 L (137-145) mmol/L Potassium 4.3 (3.4-5.1) mmol/L Chloride 98 (98-107) mmol/L Carbon Dioxide 25 (22-32) mmol/L BUN 13 (9-20) mg/dL Creatinine 1.00 (0.66-1.25) mg/dL Estimated GFR > 60.0 (>60) mL/min BUN/Creatinine Ratio 13.0 (6-22) Glucose 381 H (70-100) mg/dL Lactate 1.4 (0.7-2.1) mmol/L Calcium 8.4 (8.4-10.2) mg/dL Total Bilirubin 1.1 (0.2-1.3) mg/dL AST 52 (17-59) IU/L ALT 29 (21-72) IU/L Alkaline Phosphatase 137 H (38-126) U/L C-Reactive Protein (<1.0) mg/dL Total Protein 7.0 (6.3-8.2) g/dL Albumin 3.9 (3.5-5.0) g/dL Globulin 3.1 (1.7-4.1) g/dL Albumin/Globulin Ratio 1.3 (1.0-2.8) Procalcitonin 0.19 (<0.5) ng/mL Urine Color Urine Appearance Urine pH (4.5-8.0) Ur Specific [place] (1.000-1.035) Urine Protein (Negative) Urine Glucose (UA) (Negative) g/dL Urine Ketones (NEGATIVE) Urine Occult Blood (Negative) Urine Nitrate (Negative) Urine Bilirubin (NEGATIVE) Urine Urobilinogen (0.2) E.U./dL Ur Leukocyte Esterase (NEGATIVE) Urine RBC (0-5/HPF) Urine WBC (0-5/HPF) Ur Squamous Epith Cells (0-5/HPF) Amorphous Sediment Urine Bacteria (None) Ur Culture Indicated? 10/19/18 Range/Units 15:15 WBC (4.5-11.0) X10^3/uL RBC (4.5-5.9) X10^6/uL Hgb (13.5-17.5) g/dL Hct (41-53) % MCV (80-100) fL MCH (26-34) PG MCHC (30-36) % RDW (11.6-14.8) % Plt Count (150-400) X10^3/uL Neut % (Auto) (50-75) % Lymph % (Auto) (25-40) % [place] % (Auto) (3-14) % Eos % (Auto) (2-4) % Baso % (Auto) (0-2) % Neut # (Auto) (9893-7786) /uL Lymph # (Auto) (7408-4468) /uL [place] # (Auto) (0-900) /uL Eos # (Auto) (0-450) /uL Baso # (Auto) (0-100) /uL ESR (0-15) MM/HR Sodium (137-145) mmol/L Potassium (3.4-5.1) mmol/L Chloride (98-107) mmol/L Carbon Dioxide (22-32) mmol/L BUN (9-20) mg/dL Creatinine (0.66-1.25) mg/dL Estimated GFR (>60) mL/min BUN/Creatinine Ratio (6-22) Glucose (70-100) mg/dL Lactate (0.7-2.1) mmol/L Calcium (8.4-10.2) mg/dL Total Bilirubin (0.2-1.3) mg/dL AST (17-59) IU/L ALT (21-72) IU/L Alkaline Phosphatase (38-126) U/L C-Reactive Protein (<1.0) mg/dL Total Protein (6.3-8.2) g/dL Albumin (3.5-5.0) g/dL Globulin (1.7-4.1) g/dL Albumin/Globulin Ratio (1.0-2.8) Procalcitonin (<0.5) ng/mL Urine Color Yellow Urine Appearance Sl cloudy Urine pH 7.0 (4.5-8.0) Ur Specific [place] 1.015 (1.000-1.035) Urine Protein Negative (Negative) Urine Glucose (UA) 2+ H (Negative) g/dL Urine Ketones Negative (NEGATIVE) Urine Occult Blood Negative (Negative) Urine Nitrate Positive (Negative) Urine Bilirubin Negative (NEGATIVE) Urine Urobilinogen 0.2 (0.2) E.U./dL Ur Leukocyte Esterase Negative (NEGATIVE) Urine RBC None seen (0-5/HPF) Urine WBC 10-30/hpf H (0-5/HPF) Ur Squamous Epith Cells 0-1 /hpf (0-5/HPF) Amorphous Sediment 1+ Urine Bacteria Many (>30) H (None) Ur Culture Indicated? Specimen cultured Discharge Plan Departure Patient Disposition: Admitted As Inpatient Clinical Impression: Wound abscess Osteomyelitis Qualifiers: Osteomyelitis type: other Osteomyelitis location: foot Laterality: left Qualified Code(s): M86.8X7 - Other osteomyelitis, ankle and foot Discharge Date/Time: 10/19/18 18:40 Interventions: ED Discharge Assessment Last Done: 10/19/18 18:40 Admit Date/Time: 10/19/18 16:47 Admit Provider: Prudencio Lugo <Zainab Patrick DO - Last Filed: 10/19/18 19:56> Cosign ED Attending Cosignature Attestation: I was immediately available in the department for consultation, case discussed. Plan for admission, starting Vanco and coverage for osteo. 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 This documentation has been reviewed and I agree with assessment and plan. Supervised by Zainab Patrick DO
[2018-10-19] MEDS: LORazepam 1 MG TABLET PO (20:50)
[2018-10-19] MEDS: NICOTINE 14 PATCH 14 MG TOP (20:50)
[2018-10-19] MEDS: INSULIN ASPART 100 UNIT/ML INSULN PEN SUBCUT (20:51)
[2018-10-19] MEDS: INSULIN GLARGINE 100 UNIT/ML 3ML PEN 25 UNIT SUBCUT (20:51)
[2018-10-19] MEDS: MEROPENEM 1 GM/50 ML PIGGYBACK IV (21:35)
[2018-10-19 23:40] VITALS: BP 127/87; PULSE 81; RESP 16; TEMP 37.2; O2SAT 99
[2018-10-20] VITALS (9 sets, daily range): BP systolic 111–140; BP diastolic 73–89; PULSE 80–94; RESP 16–20; TEMP 36.8–37.7; O2SAT 96–99
[2018-10-20] MEDS: HYDROMORPHONE 0.5 MG INJ 1 MG IV (00:28)
[2018-10-20] MEDS: ONDANSETRON 4 MG/2 ML INJ IV ×3 (02:33→13:03)
[2018-10-20] MEDS: VANCOMYCIN 1,250 MG in SODIUM CHLORIDE 0.9% 250 ML IV ×3 (02:40→19:10)
[2018-10-20] MEDS: HYDROMORPHONE 1 MG INJ IV ×2 (04:28→08:33)
[2018-10-20] MEDS: MEROPENEM 1 GM/50 ML PIGGYBACK IV ×3 (04:31→21:11)
--- NOTE | 2018-10-20 06:34 | PC.NURSE ---
Pain level this shift -11/19 medciated x2 doses of Dilaudid 1 mg. IVP. Also C/O nausea Zofran admin. @ 1098, will monitor.
[2018-10-20] MEDS: LORazepam 1 MG TABLET PO ×2 (08:33→21:11)
[2018-10-20] MEDS: MELOXICAM 7.5 MG TABLET 15 MG PO (08:35)
[2018-10-20] MEDS: INSULIN GLARGINE 100 UNIT/ML 3ML PEN 25 UNIT SUBCUT ×2 (08:38→21:11)
[2018-10-20] MEDS: INSULIN ASPART 100 UNIT/ML INSULN PEN SUBCUT ×4 (08:39→16:41)
[2018-10-20] MEDS: NICOTINE 14 PATCH 14 MG TOP (08:39)
--- NOTE | 2018-10-20 09:02 | CM.DANOTE ---
Addendum entered by Vanessa Mas R.N. 10/20/18 12:04: Spoke with [facility] Lumber Handler, patient's [employer] oil field caser is now Came, out of the [facility] office. Addendum entered by Vanessa Mas R.N. 10/20/18 11:13: Discussed patient during team rounds, he will be having surgery. Went ahead and had Dr. Lugo sign face to face for nursing for home health. Original Note: DCP: Case received, EMR reviewed and met with patient. Introduced self and role. Was able to obtain some health history from patient. DCP template assessment completed with information currently available. Patient is a 42 year old male who admitted yesterday afternoon to the care of the hospitalist team. PCP: Dr. Willingham. Payer: confirmed: [facility] [place]/Medicaid. Patient came to the hospital via private vehicle secondary to increased redness and swelling to his R. foot. Patient is a type one Diabetic, and has history of osteomyelitis. Patient holds diagnosis of R. foot cellulitis. He lives alone, but his mother checks on him daily. He has caregivers come in through [employer] on and Fridays. He has a [employer] oil field caser named Sita Mckeon. Was unable to reach Sita, but was able to talk to Karen, road gang supervisor at [employer]. She stated that the caregivers come in to clean and cook for him Tuesdays and Fridays. He does not drive. Met with patient in his room. He stated that Dr. Willingham is his doctor, but he is thinking about finding another provider. Verified that he checks his blood sugar a few times a day. He stated that he can do his own showers. His mother is Lelo, and she comes by his house daily. Discussed home health with patient as a possible option for wound care. P: DCP to follow closely. Is currently on IV antibiotics. Patient may benefit from home health nursing upon discharge. Vanessa Mas RN/Truck Body Repairer
[2018-10-20] MEDS: KETOROLAC 60 MG/2 ML VIAL 30 MG IV ×2 (10:51→16:46)
[2018-10-20] MEDS: HYDROMORPHONE 2 MG INJ IV ×4 (10:59→22:46)
--- NOTE | 2018-10-20 11:30 | PM.PN.1 ---
Subjective Date Patient Seen: 10/20/18 Time Patient Seen: 11:30 Interval history: Patient denies fever chills. No nausea vomiting. Exam Vital Signs (past 8 hours): - 10/20/18 04:20 10/20/18 05:31 10/20/18 08:10 Temperature 99.3 F 98.4 F Pulse Rate 82 Respiratory Rate 16 Blood Pressure 124/73 Pulse Oximetry 99 99 10/20/18 09:00 Temperature 98.9 F Pulse Rate 82 Respiratory Rate 18 Blood Pressure 140/89 Pulse Oximetry 98 Oxygen Delivery Method Room Air Oxygen Flow Rate 0 Narrative Exam Narrative: 42-year-old male resting comfortably in bed in no apparent distress. Right foot swelling with large blister over the lateral aspect. Objective Labs Result Diagrams: 10/19/18 13:43 10/19/18 13:43 Labs: Laboratory Results - last 24 hr 10/19/18 10/19/18 10/19/18 13:42 13:42 13:43 WBC 8.2 RBC 3.76 L Hgb 12.6 L Hct 36.7 L MCV 97.6 MCH 33.5 MCHC 34.3 RDW 15.5 H Plt Count 54 L Neut % (Auto) 86.3 H Lymph % (Auto) 3.9 L [place] % (Auto) 9.2 Eos % (Auto) 0.0 L Baso % (Auto) 0.6 Neut # (Auto) 7000 Lymph # (Auto) 300 L [place] # (Auto) 700 Eos # (Auto) 0 Baso # (Auto) 0 ESR 36 H Sodium Potassium Chloride Carbon Dioxide BUN Creatinine Estimated GFR BUN/Creatinine Ratio Glucose Lactate Calcium Total Bilirubin AST ALT Alkaline Phosphatase C-Reactive Protein 8.4 H Total Protein Albumin Globulin Albumin/Globulin Ratio Procalcitonin Urine Color Urine Appearance Urine pH Ur Specific [place] Urine Protein Urine Glucose (UA) Urine Ketones Urine Occult Blood Urine Nitrate Urine Bilirubin Urine Urobilinogen Ur Leukocyte Esterase Urine RBC Urine WBC Ur Squamous Epith Cells Amorphous Sediment Urine Bacteria Ur Culture Indicated? 10/19/18 10/19/18 10/19/18 13:43 13:43 13:43 WBC RBC Hgb Hct MCV MCH MCHC RDW Plt Count Neut % (Auto) Lymph % (Auto) [place] % (Auto) Eos % (Auto) Baso % (Auto) Neut # (Auto) Lymph # (Auto) [place] # (Auto) Eos # (Auto) Baso # (Auto) ESR Sodium 135 L Potassium 4.3 Chloride 98 Carbon Dioxide 25 BUN 13 Creatinine 1.00 Estimated GFR > 60.0 BUN/Creatinine Ratio 13.0 Glucose 381 H Lactate 1.4 Calcium 8.4 Total Bilirubin 1.1 AST 52 ALT 29 Alkaline Phosphatase 137 H C-Reactive Protein Total Protein 7.0 Albumin 3.9 Globulin 3.1 Albumin/Globulin Ratio 1.3 Procalcitonin 0.19 Urine Color Urine Appearance Urine pH Ur Specific [place] Urine Protein Urine Glucose (UA) Urine Ketones Urine Occult Blood Urine Nitrate Urine Bilirubin Urine Urobilinogen Ur Leukocyte Esterase Urine RBC Urine WBC Ur Squamous Epith Cells Amorphous Sediment Urine Bacteria Ur Culture Indicated? 10/19/18 15:15 WBC RBC Hgb Hct MCV MCH MCHC RDW Plt Count Neut % (Auto) Lymph % (Auto) [place] % (Auto) Eos % (Auto) Baso % (Auto) Neut # (Auto) Lymph # (Auto) [place] # (Auto) Eos # (Auto) Baso # (Auto) ESR Sodium Potassium Chloride Carbon Dioxide BUN Creatinine Estimated GFR BUN/Creatinine Ratio Glucose Lactate Calcium Total Bilirubin AST ALT Alkaline Phosphatase C-Reactive Protein Total Protein Albumin Globulin Albumin/Globulin Ratio Procalcitonin Urine Color Yellow Urine Appearance Sl cloudy Urine pH 7.0 Ur Specific [place] 1.015 Urine Protein Negative Urine Glucose (UA) 2+ H Urine Ketones Negative Urine Occult Blood Negative Urine Nitrate Positive Urine Bilirubin Negative Urine Urobilinogen 0.2 Ur Leukocyte Esterase Negative Urine RBC None seen Urine WBC 10-30/hpf H Ur Squamous Epith Cells 0-1 /hpf Amorphous Sediment 1+ Urine Bacteria Many (>30) H Ur Culture Indicated? Specimen cultured Assessment & Plan Assessment & Plan narrative: Patient has right diabetic foot infection. CT scan shows soft tissue infection around the metatarsophalangeal joint of the small toe. Plan is for I&D right 5th metatarsal ulcer October 21, 2018. Patient will be NPO 8 hours prior to surgery. The procedure, alternatives, risk are reviewed and all questions answered. Surgical consent signed. Quality VTE Deep Vein Thrombosis/Pulmonary Embolism Present on Admission: No
--- NOTE | 2018-10-20 12:11 | P.PN_ITS ---
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 This morning patient notes increase in his right foot pain as well as development of a new large fluid-filled blister on the lateral foot. Exam Vital Signs (past 8 hours): - 10/20/18 04:20 10/20/18 05:31 10/20/18 08:10 Temperature 99.3 F 98.4 F Pulse Rate 82 Respiratory Rate 16 Blood Pressure 124/73 Pulse Oximetry 99 99 10/20/18 09:00 Temperature 98.9 F Pulse Rate 82 Respiratory Rate 18 Blood Pressure 140/89 Pulse Oximetry 98 Oxygen Delivery Method Room Air Oxygen Flow Rate 0 Narrative Exam Narrative: General: Patient alert and appearing in some discomfort Extremities: Previously noted diffuse macular erythema of the right foot somewhat lessened in appearance; however, there is a large fluid-filled blister that has formed on the dorsum of the right foot on the distal 5th metatarsal, and same appearance of a small ulceration at the volar aspect of the 5th distal metatarsal. Objective Labs Result Diagrams: 10/19/18 13:43 10/19/18 13:43 Labs: Laboratory Results - last 24 hr 10/19/18 10/19/18 10/19/18 13:42 13:42 13:43 WBC 8.2 RBC 3.76 L Hgb 12.6 L Hct 36.7 L MCV 97.6 MCH 33.5 MCHC 34.3 RDW 15.5 H Plt Count 54 L Neut % (Auto) 86.3 H Lymph % (Auto) 3.9 L [place] % (Auto) 9.2 Eos % (Auto) 0.0 L Baso % (Auto) 0.6 Neut # (Auto) 7000 Lymph # (Auto) 300 L [place] # (Auto) 700 Eos # (Auto) 0 Baso # (Auto) 0 ESR 36 H Sodium Potassium Chloride Carbon Dioxide BUN Creatinine Estimated GFR BUN/Creatinine Ratio Glucose Lactate Calcium Total Bilirubin AST ALT Alkaline Phosphatase C-Reactive Protein 8.4 H Total Protein Albumin Globulin Albumin/Globulin Ratio Procalcitonin Urine Color Urine Appearance Urine pH Ur Specific [place] Urine Protein Urine Glucose (UA) Urine Ketones Urine Occult Blood Urine Nitrate Urine Bilirubin Urine Urobilinogen Ur Leukocyte Esterase Urine RBC Urine WBC Ur Squamous Epith Cells Amorphous Sediment Urine Bacteria Ur Culture Indicated? 10/19/18 10/19/18 10/19/18 13:43 13:43 13:43 WBC RBC Hgb Hct MCV MCH MCHC RDW Plt Count Neut % (Auto) Lymph % (Auto) [place] % (Auto) Eos % (Auto) Baso % (Auto) Neut # (Auto) Lymph # (Auto) [place] # (Auto) Eos # (Auto) Baso # (Auto) ESR Sodium 135 L Potassium 4.3 Chloride 98 Carbon Dioxide 25 BUN 13 Creatinine 1.00 Estimated GFR > 60.0 BUN/Creatinine Ratio 13.0 Glucose 381 H Lactate 1.4 Calcium 8.4 Total Bilirubin 1.1 AST 52 ALT 29 Alkaline Phosphatase 137 H C-Reactive Protein Total Protein 7.0 Albumin 3.9 Globulin 3.1 Albumin/Globulin Ratio 1.3 Procalcitonin 0.19 Urine Color Urine Appearance Urine pH Ur Specific [place] Urine Protein Urine Glucose (UA) Urine Ketones Urine Occult Blood Urine Nitrate Urine Bilirubin Urine Urobilinogen Ur Leukocyte Esterase Urine RBC Urine WBC Ur Squamous Epith Cells Amorphous Sediment Urine Bacteria Ur Culture Indicated? 10/19/18 15:15 WBC RBC Hgb Hct MCV MCH MCHC RDW Plt Count Neut % (Auto) Lymph % (Auto) [place] % (Auto) Eos % (Auto) Baso % (Auto) Neut # (Auto) Lymph # (Auto) [place] # (Auto) Eos # (Auto) Baso # (Auto) ESR Sodium Potassium Chloride Carbon Dioxide BUN Creatinine Estimated GFR BUN/Creatinine Ratio Glucose Lactate Calcium Total Bilirubin AST ALT Alkaline Phosphatase C-Reactive Protein Total Protein Albumin Globulin Albumin/Globulin Ratio Procalcitonin Urine Color Yellow Urine Appearance Sl cloudy Urine pH 7.0 Ur Specific [place] 1.015 Urine Protein Negative Urine Glucose (UA) 2+ H Urine Ketones Negative Urine Occult Blood Negative Urine Nitrate Positive Urine Bilirubin Negative Urine Urobilinogen 0.2 Ur Leukocyte Esterase Negative Urine RBC None seen Urine WBC 10-30/hpf H Ur Squamous Epith Cells 0-1 /hpf Amorphous Sediment 1+ Urine Bacteria Many (>30) H Ur Culture Indicated? Specimen cultured Assessment & Plan Assessment & Plan narrative: This is a 42-year-old male with type 1 diabetes, CML, maintained on Gleevec, chronic nausea controlled with lorazepam, alcohol dependence although states has been mostly abstinent for past couple of months, presented with right foot swelling and redness which appears likely associated with right foot ulcer. 1. Right foot cellulitis associated with diabetic foot ulcer -ulceration of distal 5th metatarsal with some question on CT of soft tissue abscess and possible early osteomyelitis -afebrile, normal WBC and no evidence of sepsis -CRP 8.4 -patient at risk for MRSA and other polymicrobial in organisms including anaerobic and gram-negative bacteria -vancomycin and meropenem for initial antibiotic management (note patient allergic to penicillin) -wound drainage from ulcer Gram stain showing gram-positive cocci and gram- negative bacilli and culture growing 2 different gram-negative bacilli -patient is scheduled for I and D on Wednesday with Dr. Baljinder Torres -Dilaudid increased to 2 mg IV q.4 hours as needed for severe pain, also ordered Toradol 30 mg IV q.6 hours as needed and held patient's Mobic -consider need for PICC line based on culture results and determined duration of antibiotic therapy, noting patient has past history of IVDU may complicate potential outpatient IV antibiotic therapy 2. Type 1 diabetes -admit glucose 381, worsening control likely due to acute infection -last CBG in mid 200 range -continue patient's Lantus 25 units b.i.d., use NovoLog 5 units with meals, and NovoLog medium dose sliding scale, and adjust insulin dosing as required to achieve adequate control 3. CML -followed locally by Dr. Romain Camarena -continue patient's Gleevec -continue lorazepam 1 mg b.i.d. for Gleevec associated nausea 4. Alcohol dependence -recently abstinent and appears at low risk for alcohol withdrawal Quality VTE Deep Vein Thrombosis/Pulmonary Embolism Present on Admission: No
--- NOTE | 2018-10-20 12:54 | PC.NURSE ---
Large purplish blister to lateral right of right foot (viewed by Dr. Lugo and GORAN Russ) has now burst. Blister area cleaned and covered with an Optifoam and netting. Fluid from blister was pinkish serous in nature. No apparent pus or other discharge. Pt now resting with right foot elevated. Spoke with Dr. Lugo about sending a new culture (one was sent yesterday and is awaiting culture results. Pt is already on contact precautions and Dr. Lugo stated a new culture would be sent after Pt's I and D tomorrow).
[2018-10-20 18:47] LABS: Vancomycin Trough 19.8 ug/mL (10-20)
--- NOTE | 2018-10-20 22:36 | PC.NURSE ---
PATIENT REQUESTING MORE PAIN MEDS FOR INCREASED PAIN TO RIGHT FOOT,INFORMED MILA NORWOOD NO NEW ORDERS. INSTRUCTED TO ELEVATE FOOT AND STAY IN BED.4 PILLOWS UNDER RIGHT LEG NOW ABOVE HEART LEVEL.WILL BE DUE FOR IV DILAUDID IN 15-20 MIN.
[2018-10-21] VITALS (19 sets, daily range): BP systolic 101–154; BP diastolic 60–104; PULSE 68–89; RESP 12–20; TEMP 36.3–37.2; O2SAT 94–100; BMI 21.3
[2018-10-21] MEDS: KETOROLAC 60 MG/2 ML VIAL 30 MG IV ×2 (00:32→06:48)
--- NOTE | 2018-10-21 01:45 | PC.NURSE ---
Patient alert/oriented. Reports pain /10 and medicated with toradol. patient reports dressing fell off. New dressing applied and RLE elevated up on pillows. IV fluids at TKO. IV site WNL. Remain on contact isolation. call light within reach.
[2018-10-21] MEDS: VANCOMYCIN 1,250 MG in SODIUM CHLORIDE 0.9% 250 ML IV ×3 (02:29→18:35)
[2018-10-21] MEDS: HYDROMORPHONE 2 MG INJ IV ×3 (02:30→10:34)
[2018-10-21] MEDS: ONDANSETRON 4 MG/2 ML INJ IV ×3 (02:50→12:52)
--- NOTE | 2018-10-21 03:47 | PC.NURSE ---
Patient medicated with Zofran for nausea, patient reports effective.
[2018-10-21] MEDS: MEROPENEM 1 GM/50 ML PIGGYBACK IV ×3 (04:48→21:09)
[2018-10-21] MEDS: DEXTROSE 5%-LACTATED RINGERS 1,000 ML 84 ML IV (08:20)
[2018-10-21] MEDS: INSULIN GLARGINE 100 UNIT/ML 3ML PEN 25 UNIT SUBCUT ×2 (08:22→22:03)
[2018-10-21] MEDS: NICOTINE 14 PATCH 14 MG TOP (08:23)
[2018-10-21] MEDS: LORazepam 1 MG TABLET PO ×2 (08:27→21:04)
--- NOTE | 2018-10-21 08:51 | P.PN_ITS ---
Subjective Date Patient Seen: 10/21/18 Time Patient Seen: 08:51 Interval history: He is seen today to follow-up his type 1 diabetes, chronic myelogenous leukemia, chronic pain, right foot ulcer. He will be going for surgery to debride the toe and the foot this afternoon. He has some, unde rstandable concerns about his insulin dosing this morning. He will be fasting for the surgery and will be on a dextrose drip. Adjustments to his insulin will be done. Exam Vital Signs (past 8 hours): - 10/21/18 01:37 10/21/18 04:25 10/21/18 08:00 Temperature 98.4 F 98.4 F Pulse Rate 85 81 Respiratory Rate 16 16 Blood Pressure 129/60 142/91 H Pulse Oximetry 96 99 100 Oxygen Delivery Method Room Air Oxygen Flow Rate 0 Narrative Exam Narrative: He is alert and oriented x3, in no apparent distress. His father is visiting during the exam. The right ankle is slightly pink and swollen with a dressing over the large right foot ulcer on the side of the 5th metatarsal. Heart is regular rate and rhythm without murmur. Lungs are clear to auscultation bilaterally. Objective Labs Result Diagrams: 10/19/18 13:43 10/19/18 13:43 Labs: Laboratory Results - last 24 hr 10/20/18 18:15 Vancomycin Trough 19.8 Assessment & Plan Assessment & Plan narrative: This is a 42-year-old male with type 1 diabetes, CML, maintained on Gleevec, ch ronic nausea controlled with lorazepam, alcohol dependence although states has been mostly abstinent for past couple of months, who presented with right foot swelling and redness associated with a right foot ulcer. 1. Right foot cellulitis associated with diabetic foot ulcer -ulceration of distal 5th metatarsal with some question on CT of soft tissue abscess and possible early osteomyelitis -afebrile, normal WBC and no evidence of sepsis -CRP 8.4 -his wound culture is growing Proteus, E coli and strep group A. A urine culture is growing Staphylococcus. -continue on vancomycin and meropenem pending sensitivities (note patient allergic to penicillin) -patient is scheduled for I and D today with Dr. Baljinder Torres -Dilaudid increased to 2 mg IV q.4 hours as needed for severe pain, also ordered Toradol 30 mg IV q.6 hours as needed and held patient's Mobic -consider need for PICC line based on culture results and determined duration of antibiotic therapy, noting patient has past history of IVDU may complicate potential outpatient IV antibiotic therapy 2. Type 1 diabetes -admit glucose 381, worsening control likely due to acute infection -continue patient's Lantus 25 units b.i.d., use NovoLog 5 units with meals, and NovoLog medium dose sliding scale, and adjust insulin dosing as required to achieve adequate control -decreased doses of insulin given today while fasting. 3. CML -followed locally by Dr. Romain Camarena -continue patient's Gleevec -continue lorazepam 1 mg b.i.d. for Gleevec associated nausea 4. Alcohol dependence -recently abstinent and appears at low risk for alcohol withdrawal Quality VTE Deep Vein Thrombosis/Pulmonary Embolism Present on Admission: No
[2018-10-21] MEDS: KETOROLAC 30 MG/ML VIAL IV (12:52)
--- NOTE | 2018-10-21 13:14 | CM.DPC ---
DCP: continued: case received, EMR reviewed and history of prior IH admissions including ER are reviewed. Pt has been followed by the [facility] team in the past and those notes are reviewed. YASMINE Herrmann, who works in CM department and also in Oncology clinic is here today, says she is very familiar with pt and his ongoing issues. She readily agrees to consult on this patient and her notes will be forthcoming. She notes issues re noncompliance with treatment, active drug and alcohol abuse. He has been in and out of the ER several times over the last 2 years. P: will await her notes, pass information on to hospitalist Dr. Benson, on for the next few days and follow up accordingly.
--- NOTE | 2018-10-21 14:30 | PC.NURSE ---
Pt IV heplocked and chart with Pt-Pt to OR for I & D via bed.
[2018-10-21] MEDS: LACTATED RINGERS 1,000 ML 42 ML IV (15:09)
--- NOTE | 2018-10-21 15:17 | PM.PREOP ---
Pre-operative Note Interval Note History & Physical reviewed/Exam performed by Physician: Yes Changes to H&P: No
--- NOTE | 2018-10-21 15:52 | SUR.OPER ---
Supine on padded OR bed, head on pillow, arms secured on padded arm boards at <90 degrees abduction, legs uncrossed, safety belt at waist, tape over blanket over lowerl eft leg, right leg draped free with bump underright buttock.
[2018-10-21] MEDS: MEPERIDINE 100 MG/ML INJ IV (16:30)
[2018-10-21] MEDS: fentaNYL 100 MCG/2 ML INJ 50 MCG IV ×2 (16:35→16:40)
--- NOTE | 2018-10-21 16:40 | P.OP_ITS ---
Operative Date/Time/Diagnoses Date of procedure: 10/21/18 Time of procedure: 16:15 Pre-op diagnosis: Right diabetic foot infection Post-op diagnosis: same Procedure & Clinicians Procedure: 1. Incision and drainage of right diabetic foot infection including skin, subcutaneous tissue and tendons. 2. Application of wound VAC Same procedure as scheduled: Yes Indications: The patient is a 42-year-old gentleman with diabetes mellitus. He presented to the emergency room 2 days ago with a diabetic foot ulcer with some drainage. A CT scan showed a fluid collection around the 5th metatarsal region. This was underlying an ulcer. In the ensuing 24 hours despite IV antibiotics he developed significant pointing abscesses around the lateral aspect of the foot. He is taken to the operating room for incision and drainage of this area. The risks benefits and alternatives were discussed with him at length including the need potentially for 5th ray resection, failure to relieve the infection, bleeding, nerve damage, deep venous thrombosis, pulmonary embolism, stroke, myocardial infarction, permanent paralysis and . Surgeon: Baljinder Torres Click Yes if Unassisted: Yes Anesthesia Type: General Operative Notes Findings: Gross necrosis of the skin and subcutaneous tissues of the lateral aspect of the foot extending from the midportion of the 5th metatarsal to the metatarsophalangeal joint. The infection did not appear to enter the metatarsophalangeal joint or be connected to the bone in any way. Closure Type: not applicable (Wound VAC) Specimen(s): other (Swabs for culture) Applied: drain(s) Estimated Blood Loss (mL): 10 Blood products transfused: none Tourniquet time (min): 20 Procedure in detail: The patient was seen in the preoperative area where he identified and confirmed his right foot is the operative site. This was marked with my initials. He had already been receiving his IV antibiotics and these were continued so additional perioperative antibiotics were not administered. He was taken to the operating room and placed on the operating room table in a supine position. He underwent the induction of a general anesthetic. A tourniquet was placed about his proximal right thigh. His right leg was prepared from the toes to the tourniquet with Betadine and draped through sterile drapes. The leg was elevated for 1 minutes to exsanguinate it. The tourniquet was inflated to 250 mm of mercury. I excised the necrotic skin, subcutaneous tissue and abductor tendons from the lateral aspect of the 5th metatarsal. The bone itself did not appear to be soft or involved in the infection and I left it intact. Necrotic fat and tissue were sharply removed using a rongeur and also with the scalpel. The wound was irrigated with 3 L of saline solution and further debrided with soft debridement with sponges. The tourniquet was briefly deflated to allow hemostasis with the electrocautery. Although there was some bleeding from the skin edges there were no pulsatile ble eding vessels in the base of the wound. The tourniquet was reinflated and the wound VAC applied. After dressing placement and confirmation of wound VAC function the tourniquet was deflated. The patient was then recovered in the operating room due to his isolation requirements. Complications: none Condition: stable Disposition: Acute Care Plan for aftercare: Our plan is to leave the wound VAC in place until Wednesday. This will be changed and it will be determined at that time if additional debridement is necessary. If no further debridement is necessary he will receive further wound care through the [facility] Care Center. If debridement is necessary this will be scheduled for later in the day on Wednesday.
[2018-10-21] MEDS: LACTATED RINGERS 1,000 ML 125 ML IV (17:36)
[2018-10-21] MEDS: OXYCODONE IR 10 MG TABLET PO ×2 (18:34→21:00)
--- NOTE | 2018-10-21 20:15 | CM.DPC ---
DCP Continued... This PREPARER met with pt to check-in following his surgery earlier this afternoon. Pt found to be alert and oriented x3, complaining of pain and is worried that he won't be able to sleep tonight. He states that he has been getting in-home caregiving through [facility] on Tuesdays and Fridays, but that he is receptive to having Home Health for nursing following discharge. This PREPARER did explain that per Dr. Blankenship's note, he will most likely require wound care through the wound clinic at [facility] following his discharge, due to the extent of his wound and infection. This pt is well known to this PREPARER through his care in Oncology. Pt has a long history of benzodiazapine and alcohol abuse, noncompliance with his treatment and frequent cancellations/no show of his oncology appointments. Additionally, it's well documented from his oncology call notes that he is to obtain benzodiazapines and all pain meds through his PCP, Dr. Willingham, due to multiple ED presentations seeking Lorazapam for anxiety. Please see note from 10/04 from WILL Torre when pt was seeking additional Lorazapam for nausea. He was prescribed Compazine by Dr. Camarena, then presented 2-days later in the ER, falsely stating that oncology told him to deal with his symptoms and side effects without treatment. He was given Lorazapam in the ER and sent home. He also doesn't take his Gleevec consistently as prescribed. His next oncology appt. is scheduled for November. This PREPARER will update Dr. Camarena re: pt's current hospitalization.
[2018-10-21] MEDS: DOCUSATE 100 MG CAPSULE PO (20:56)
[2018-10-21] MEDS: ACETAMINOPHEN 325 MG TABLET 975 MG PO (20:56)
[2018-10-21] MEDS: HYDROMORPHONE 0.5 MG INJ IV (21:00)
[2018-10-21] MEDS: INSULIN ASPART 100 UNIT/ML INSULN PEN SUBCUT (22:02)
--- NOTE | 2018-10-21 22:40 | PC.NURSE ---
LATE NOTE, AFTER BEING BACK IN ROOM AFTER SURGERY FOR APPROX.30 MINUTES PATIENTS WOUND VAC ALARMED AND WAS LOSING SUCTION,REINFORCEMENTS MADE TO COVERING AROUND TOES,ENOUGH FOR VAC TO START FUNCTIONING AGAIN.INFORMED PATIENT BED REST AND BEDPAN.FOOT ELEVATED
[2018-10-22] VITALS (7 sets, daily range): BP systolic 121–149; BP diastolic 82–94; PULSE 64–88; RESP 16–18; TEMP 36.5–37.1; O2SAT 98–100
[2018-10-22] MEDS: OXYCODONE IR 10 MG TABLET PO ×7 (00:04→19:35)
[2018-10-22] MEDS: HYDROMORPHONE 0.5 MG INJ IV ×3 (01:08→12:29)
[2018-10-22] MEDS: VANCOMYCIN 1,250 MG in SODIUM CHLORIDE 0.9% 250 ML IV (03:05)
--- NOTE | 2018-10-22 05:02 | PC.NURSE ---
Pt is AxOx3, Vital signs stable. Pt is a bit manipulative in terms of his diet, pain meds, and nausea complaints asking for ativan. Pt frequently says he is unaware he is on a diabetic CC diet and that they usually allow him to have whatever. Pt is a brittle diabetic, he was educated on this and explained his diet. He states he has nausea from the pain and requesting ativan. I told pt he was not due to get ativan until late in the morning and i could call for an order for maybe Zofran but he declined. I have not heard/seen any dry heaving. Right foot is swollen +2 pitting edema, red, hot, with a black foam Wound Vac running continuously at 125mmHg. Minimal sanguinous output. Wound Vac having some issues with suction, however i have fixed the air leak and has been functioning well throughout the night. Pt got up with a 2 person assist to BSC and had a large BM.
[2018-10-22 05:26] LABS: Hematocrit 29.5 % (41-53); Hemoglobin 10.1 g/dL (13.5-17.5); Mean Corpuscular HGB Conc 34.3 % (30-36); Mean Corpuscular Hemoglobin 33.3 PG (26-34); Mean Corpuscular Volume 97.3 fL (80-100); Platelet Count 50 X10^3/uL (150-400); Red Blood Cell Count 3.03 X10^6/uL (4.5-5.9); Red Cell Distribution Width 15.1 % (11.6-14.8); White Blood Cell Count 2.9 X10^3/uL (4.5-11.0)
[2018-10-22 05:36] LABS: Estimated Glomerular Filt Rate > 60.0 mL/min (>60)
[2018-10-22] MEDS: MEROPENEM 1 GM/50 ML PIGGYBACK IV ×3 (06:12→21:47)
--- NOTE | 2018-10-22 06:41 | PM.EVENT ---
Date Patient Seen: 10/22/18 Time Patient Seen: 06:42 Patient c/o uncontrolled pain. Pain 8-9/10. Seen at bedside, does not appear to be in distress. H/O chronic pain (baseline 2/10 per patient) and history of EtOH abuse. At home pain is controlled with 4 pills of oxycontin (later in conversation state 4 pills of oxycodone), beer, and marijuana. States pain meds minimally effective, decrease pain to 7/10. Specifically asking for dilaudid 2 mg IV or fentanyl. Currently has dilaudid 0.5 mg IV Q1H, tylenol 975 TID, and Oxy IR 10 mg Q3H. Discussed intensifying pain regimen, however patient declines ultram, toradol, and oral dilaudid. Also, declines zofran, compazine, phenergan, and benadryl for nausea, asking increase in lorazepam. Patient exhibiting drug seeking tendencies. After being given a number of options, patient wishes for Dr. Torres to adjust his regimen. Patient's nurse present in room at time of discussion.
--- NOTE | 2018-10-22 08:49 | PM.PN.1 ---
Subjective Date Patient Seen: 10/22/18 Time Patient Seen: 08:49 Interval history: He is seen today due to follow-up the right foot diabetic ulcer infection and cellulitis along with his CML, chronic pain, chronic benzo/narcotic use. Overnight he has had pain flares that have been addressed with his Dilaudid but he is upset about the dose decrease postoperatively. He had been getting 2 mg but is now at 0.5 mg per Orthopedics. The wound VAC appears to be functioning well. The hemoglobin has dropped from 12.6 down to 10.1. The platelets are 50 which is relatively stable and the white count is 2.9. Exam Vital Signs (past 8 hours): - 10/22/18 03:27 Temperature 98.7 F Pulse Rate 88 Respiratory Rate 16 Blood Pressure 136/93 H Pulse Oximetry 100 Oxygen Delivery Method Room Air Oxygen Flow Rate 0 Narrative Exam Narrative: He is alert and oriented, quite calm and not agitated during my visit. Heart is regular rate and rhythm without murmur Lungs are clear to auscultation bilaterally There is no ankle edema The right ankle and foot is warm/pink up to the medial side of the right ankle with a wound VAC in place over the 5th metatarsal area. The 5th toe is quite red Objective Labs Result Diagrams: 10/22/18 05:01 10/22/18 05:01 Labs: Laboratory Results - last 24 hr 10/22/18 10/22/18 05:01 05:01 WBC 2.9 L RBC 3.03 L Hgb 10.1 L Hct 29.5 L MCV 97.3 MCH 33.3 MCHC 34.3 RDW 15.1 H Plt Count 50 L Creatinine 1.00 Estimated GFR > 60.0 Assessment & Plan Assessment & Plan narrative: This is a 42-year-old male with type 1 diabetes, CML, maintained on Gleevec, chronic nausea controlled with lorazepam, alcohol dependence although states has been mostly abstinent for past couple of months, who presented with right foot swelling and redness associated with a right foot ulcer. 1. Right foot cellulitis associated with diabetic foot ulcer -ulceration of distal 5th metatarsal -POD #1 Wound debridement and Wound Vac placement per Dr. Torres -his wound culture is growing Proteus, E coli and strep group A. The Urine culture is growing Staphylococcus Hominis - MRSH. -continue on vancomycin and meropenem due to sensitivities -Dilaudid decreased to 0.5 mg IV post op. He is upset by this. Continue Toradol. D/W Ortho. -consider need for PICC line based on culture results and determined duration of antibiotic therapy, noting patient has past history of IVDU may complicate potential outpatient IV antibiotic therapy -Wound Vac until 10/24. -ID consult will be needed. 2. Type 1 diabetes -Widely varying blood sugars -continue patient's Lantus 25 units b.i.d., use NovoLog 5 units with meals, and NovoLog medium dose sliding scale, and adjust insulin dosing as required to achieve adequate control 3. CML -followed locally by Dr. Romain Camarena -continue patient's Gleevec -continue lorazepam 1 mg b.i.d. for Gleevec associated nausea 4. Alcohol dependence -recently abstinent and appears at low risk for alcohol withdrawal Quality VTE Deep Vein Thrombosis/Pulmonary Embolism Present on Admission: No
[2018-10-22] MEDS: ACETAMINOPHEN 325 MG TABLET 975 MG PO ×3 (09:18→21:46)
[2018-10-22] MEDS: ENOXAPARIN 40 MG/0.4 ML SYRINGE SUBCUT (09:18)
[2018-10-22] MEDS: NICOTINE 14 PATCH 14 MG TOP (09:20)
[2018-10-22] MEDS: LORazepam 1 MG TABLET PO ×2 (09:20→21:46)
[2018-10-22] MEDS: INSULIN GLARGINE 100 UNIT/ML 3ML PEN 25 UNIT SUBCUT ×2 (09:33→21:42)
--- NOTE | 2018-10-22 09:43 | PM.PNPO.1 ---
Subjective Date Patient Seen: 10/22/18 Time Patient Seen: 09:43 Interval history: Hospital day 4, postop day 1 following right foot diabetic ulcer abscess I and D by Dr. Torres. Patient is currently on vancomycin and meropenem. Wound culture noted Proteus hauseri and E coli both sensitive to meropenem. He still has urine culture which notes staph with sensitivity still pending. He has been getting oxycodone 10 mg p.o. and Dilaudid 0.5 mg IV q.1h as needed. He states still having some noticeable pain to the foot. He is being followed by hospitalist, Dr. Benson, for medical issues. Exam Vital Signs (past 8 hours): - 10/22/18 03:27 Temperature 98.7 F Pulse Rate 88 Respiratory Rate 16 Blood Pressure 136/93 H Pulse Oximetry 100 Oxygen Delivery Method Room Air Oxygen Flow Rate 0 Narrative Exam Narrative: Alert, oriented in no acute distress sitting on edge of bed. Right leg. No calf pain or swelling. Pulses symmetrical. Good blanching of toes. Wound VAC in place with good seal. Mild swelling of the foot and lower leg. Objective Labs Result Diagrams: 10/22/18 05:01 10/22/18 05:01 Labs: Laboratory Results - last 24 hr 10/22/18 10/22/18 05:01 05:01 WBC 2.9 L RBC 3.03 L Hgb 10.1 L Hct 29.5 L MCV 97.3 MCH 33.3 MCHC 34.3 RDW 15.1 H Plt Count 50 L Creatinine 1.00 Estimated GFR > 60.0 Assessment & Plan Post-op Postoperative Procedures Operation Date: 10/21/18 15:00 Actual Procedures Side Surgeon p I&D ulcer 5th toe Right Baljinder Torres MD Plan: Discussed case with Dr. Benson. Will add Toradol 30 mg IV q.6h for pain. Continue on current her pain medication. Waiting on for final culture sensitivity of urine to determine if we can stop the vancomycin. His foot cultures are sensitive to meropenem. Will put an order for wound care consult to be done on 10/24/2018. Patient is to have wound VAC in place until 10/24/2018 and he will be seen by Dr. Torres at that time to evaluate for further surgery and treatment. Quality VTE Deep Vein Thrombosis/Pulmonary Embolism Present on Admission: No
[2018-10-22] MEDS: KETOROLAC 30 MG/ML VIAL IV ×3 (10:03→17:49)
--- NOTE | 2018-10-22 10:13 | CM.DPC ---
DCP: continued: EMR reviewed including CM social media marketing manager Argelia's note from yesterday afternoon and Dr. Torres OP note which includes the placement of a wound van on the foot post I&D. Orthopedic team plan to change the vac on Tuesday 10/17 and consider another I&D if indicated. Dr. Torres noted plan for pt to followup at the [facility]. Discussed all this in Team Rounds with ortho GORAN Reed and hospitalist Dr. Benson. Alerted team to pt's insurance: [employer] and with a need for an authorization if pt is to leave with a wound vac planned for home setting. Pt is also not established with the Wound Clinic. GORAN Reed agrees to put in a referral for a wound care consult while pt is in the hospital. (the clinic is not open over the weekend). Will not at this point put in a referral to [facility] as too much is unclear re the vac plan. Pt may need an alternate wound care treatment and will wait to see what wound care team consutation shows. Ortho team is also planning IV antibiotics, likely at d/c and this is discussed. Dr. Benson notes the complex issues for this pt re his non-compliance history, his medical comorbidities and the need to find a d/c treatment plan that will be appropriate for this particular patient. He says he does anticipate pt will be here several more days as his POC unfolds.
[2018-10-22 11:15] LABS: Vancomycin Trough 25.2 ug/mL (10-20)
[2018-10-22 11:22] LABS: Clostridium Difficile Tox PCR Negative for C. diff
--- NOTE | 2018-10-22 11:34 | PT.IIE ---
Current Diagnoses Type 1 diabetes mellitus with foot ulcer (10/19/18) Surgery Performed Operation Date: 10/21/18 15:00 Actual Procedures p I&D ulcer 5th toe(Right) - Baljinder Torres MD Surgical History (Last Reviewed 10/19/18 @ 19:48 by FANG Lauren) Status post appendectomy Medical History (Last Reviewed 10/19/18 @ 19:48 by ZACH Lauren) Alcoholism (Acute) CML (chronic myelocytic leukemia) (Acute) Insulin dependent diabetes mellitus (Acute) Thrombocytopenia (Acute) Physical Therapy Inpatient Evaluation/Re-Eval M1 PT/OT-IP Prior Functional Status Start: 10/22/18 13:02 Freq: NEEDED Status: Active Protocol: Document 10/22/18 11:34 AB (Rec: 10/22/18 13:14 AB [id number]) Medical Review Prior Functional Status Medical History Reviewed Yes Communication able to make needs known Mobility and Gait pt stated that he is independent with all mobilities and ambulation without AD Social History Household Members none Living Arrangements Apartment/Condo Number of Floors (Floors) One Floor Number of Stairs To Enter/Railing? pt stated that he lives in a cabin Home Environment Standard Height Toilet Walk in Shower Built-In Shower Seat Home Equipment Straight Cane Hand Held Shower Grab Bars Near Toilet Grab Bars In Shower Additional Social History Comment pt stated that he has a caregiver that comes in ~ 4 hours/day and his parents also checks on him. M2 PT-IP Current Condition Start: 10/22/18 13:02 Freq: NEEDED Status: Active Protocol: Document 10/22/18 11:34 AB (Rec: 10/22/18 13:14 AB [id number]) Physical Therapy Current Condition Current Condition Evaluation Date 10/22/18 Treatment Diagnosis I&D R diabetic foot infection; difficulty in walking Onset Date 10/19/18 Weight Bearing Status Weight Bearing Status Partial Weight Bearing Allowed Weight Bearing Amount (enter % RLE: PWB; may WB on R heel to or #) (%) transfer M3 PT-IP Subjective Start: 10/22/18 13:02 Freq: NEEDED Status: Active Protocol: Document 10/22/18 11:34 AB (Rec: 10/22/18 13:14 AB [id number]) Subjective Physical Therapy Visit Type Type Initial Evaluation Visit Start Time 11:34 Visit Stop Time 11:55 Total Visit Minutes 21 Number of ROLLED GLASS CROSSCUTTER Visits 0 Physical Therapy Visit Comments Patient Comments pt initially refusing PT. stated that he does not want his wound to reopen. informed pt regarding PT order from the doctor and pt agreed to do some PT. Therapy Pain Assessment Pain When Pain Assessed At Rest Pain Present Pain Present Pain Reported Location Right Foot Scale Used pain scale not stated M4 PT-IP Mobility and Gait Start: 10/22/18 13:02 Freq: NEEDED Status: Active Protocol: Document 10/22/18 11:34 AB (Rec: 10/22/18 13:14 AB [id number]) PT-Bed Mobility Assessment Supine to Sit Supine to Sit Independent Sit to Supine Sit to Supine Independent PT-Transfer Assessment Sit to and From Stand Sit to and from Stand Standby Assistance Equipment Transfer Assistive Device Gait Belt Orthotic/Prosthetic Devices or Brace: Yes Comments Mobility Comments pt completed sit to stand from the EOB SBA. pt ambulated in room ~ 5 ft using FWW SBA. initially requiring CGA as pt is still getting used to R forefoot offloading post-op shoe. Gait Assessment Gait Gait Assistance Required: Standby Assistance Contact Guard Assist Distance (Feet) 5 Assistive Devices Assistive Device None Gait Belt Front Wheeled Walker Orthotic/Prosthetic Devices or Brace: Yes Gait Deviations General Gait Pattern Antalgic Decreased Stride Length Decreased Feet Clearance Factors Limiting Gait Function Factors Limiting Gait Function Pain Poor Balance Comments Gait Comments pt ambulated ~ 5 ft using FWW SBA to CGA. ambulated without AD ~ 3 ft SBA to CGA. pt has R front offloading post-op shoe on. PT-Balance Assessment Sitting Balance and Reactions Static Sitting Balance Ability Good Dynamic Sitting Balance Ability Good Standing Balance and Reactions Static Standing Balance Ability Fair Dynamic Standing Balance Ability Fair Device Used without AD M5 PT-IP Objective Assessments Start: 10/22/18 13:02 Freq: NEEDED Status: Active Protocol: Document 10/22/18 11:34 AB (Rec: 10/22/18 13:14 AB [id number]) Orientation Orientation/Cognition Level of Alertness Alert Orientation Name Age Place Situation Language Function Ability No Deficits Noted Safety Awareness Understands Safety Issues Gross Range of Motion Lower Extremity ROM Assessment Within Functional Limits Strength Lower Extremity Strength Assessment Bilaterally Impaired Hip 4-/5 Knee 4-/5 Coordination Assessment Gross Coordination Gross Coordination WNL Muscle Tone Muscle Tone WNL Yes M6 PT-IP Treatment Start: 10/22/18 13:02 Freq: NEEDED Status: Active Protocol: Document 10/22/18 11:34 AB (Rec: 10/22/18 13:14 AB [id number]) Physical Therapy Treatment Education Education Provided Precautions Weight Bearing Status Safety Equipment Issued Equipment Type and Company R front offloading post-op shoe: [employer] M7 PT-IP Assessment and Plan Start: 10/22/18 13:02 Freq: NEEDED Status: Active Protocol: Document 10/22/18 11:34 AB (Rec: 10/22/18 13:14 AB [id number]) PT Summary Assessment and Plan Potential Rehabilitation Potential Good Status of Condition at Evaluation Stable Summary Impairments Pain ROM Strength Balance Sensation Cognition Bed Mobility Transfers Gait Activity Tolerance Assessment Summary pt requiring SBA to occasional CGA with mobility. pt plans to go home and his parents check on him and has a caregiver that comes in 2x/ week. pt may go home when medically stable. Goals Bed Mobility Goal Independent Transfer Goal Independent Cane Gait Goal Independent Cane Gait Distance 150 Days to Meet Goals 5 Frequency of Treatment Frequency Of Treatment Once a Day Treatment Plan Physical Therapy Treatment Plan Bed Mobility Training Transfer Training Gait Training Therapeutic Exercise Balance Retraining Post Op Education Discharge Planning Hot or Cold Pack Neuromuscular Re-ed Coordination Retraining Manual Therapy Recommendations To Nursing Amount of Assist Needed 1 Person Assist Discharge Recommendations PT Discharge Recommendations Home with Assistance
[2018-10-22] MEDS: VANCOMYCIN TROUGH 1 REQUEST MISC (11:49)
[2018-10-22] MEDS: VANCOMYCIN 1,000 MG/200 ML PIGGYBACK 200 MG IV ×2 (11:53→19:28)
[2018-10-22] MEDS: INSULIN ASPART 100 UNIT/ML INSULN PEN SUBCUT ×2 (12:03)
--- NOTE | 2018-10-22 20:53 | PC.NURSE ---
patient is A&Ox4, pleasant to staff and able to make needs known. Patient has had loose stool throughout the day today and c/o a stomach ache. Stool cult was obtained. Discussed findings of yellow, gelatinous stools with some small streak of blood in stool. Question with nolvia ZARAGOZA if stool should be sent for CDIFF? Catracho states no need to send off but a probiotic was prescribed. This nurse noticed flakes of tobacco all over patients table while SL IV. When I asked patient if he had chewing tobacco he reported NO. Soda can at bedside was dumped out prior to throwing away in garbage and the smell of winter green was noted and tobacco/spit was found in can. When confronted a second time patient said No I don't have any, I asked why there was tobacco in the can of soda he just opened with in the last hour. Patient states I don't have anymore. Explained to patient that he has a nicotine patch on and that there is a tobacco free rule while in hospital. Asked patient nicely to please be honest with me when asking him questions. Patient still denied having chewing tobacco in room despite all evidence. Patient states as this nurse was leaving I dont have any because my mom wouldn't bring me more. Explained to patient that if he is found to have more chewing tobacco, it will need to be taken but he may have it upon d/c.
[2018-10-23] VITALS (7 sets, daily range): BP systolic 137–162; BP diastolic 90–99; PULSE 56–79; RESP 16–18; TEMP 36.6–36.8; O2SAT 98–100
[2018-10-23] MEDS: SODIUM CHLORIDE 0.9% FLUSH 10 ML IV ×4 (00:38→22:14)
[2018-10-23] MEDS: KETOROLAC 30 MG/ML VIAL IV ×4 (00:38→18:10)
--- NOTE | 2018-10-23 01:04 | PC.NURSE ---
Addendum entered by Giselle Dumont R.N. 10/23/18 06:42: Patient currently asleep. Addendum entered by Giselle Dumont R.N. 10/23/18 05:44: 0510 Wound vac alarming low pressure. Coban applied around foot at suction site per WILL Berumen and pressure now maintaining at 125mm hg. Complains of 8/10 foot/leg pain bilateral so medicated with scheduled Toradol. Addendum entered by Giselle Dumont R.N. 10/23/18 02:59: CBG on recheck was 98 Addendum entered by Giselle Dumont R.N. 10/23/18 02:23: Complains of 8/10 bilateral leg pain so medicated with Oxycodone. Also states he is shaky and sweaty so CBG checked and was 52; provided with snack Original Note: Patient is alert and oriented. Breath sounds CTA with RA sat of 100%. HRR with BP of 140/82. Denies nausea. BT present and abdomen is soft. States he is voiding frequently but denies dysuria; uses urinal. Able to turn himself. Reportedly gets OOB with SBA and wears ortho boot when up. Currently complaining of 8/10 pain in bilateral legs; medicated with scheduled Toradol. Has chronic bilateral foot peripheral neuropathy. States he is unable to feel sensation on toes of right foot. Wound vac in place to 125mm hg and draining sanguinous fluid. Remains on contact isolation as wound culture final not back as yet. Refuses SCD's despite information re: DVT prevention so reminded to ankle wave. Fall risk score is moderate; bed alarm is activated.
[2018-10-23] MEDS: OXYCODONE IR 10 MG TABLET PO ×7 (02:22→22:20)
[2018-10-23] MEDS: VANCOMYCIN 1,000 MG/200 ML PIGGYBACK 200 MG IV (02:40)
--- NOTE | 2018-10-23 03:09 | CM.MNRNOTE ---
Addendum entered by Kim Pathak CNA 10/23/18 03:37: Accidentally hit the wrong type of note this is. It's a nurse's note (steward/stewardess second class note?) not [facility] [place]. note. Can't amend it to fix. Original Note: IMELDA note: Was told by nurse that patient needed to void, that he needed to stand up. Patient was a [address] [facility] according to my notes and was on a bed alarm. I was gowning up outside the room when I asked Hey, I thought you use the urinal independently in the bed. I walked into the room and patient said I don't need this bed alarm. I can go to the bathroom by myself. I won't fall. I don't need everyone here. I explained look it is just a safety thing, we don't want you to fall, and it's just an extra pair of hands. Patient shook his head, removed his urinal from under the covers and said I'm not a dumb ass. I heard what you said before you came in, that I can use the urinal in bed. I nodded and explained yeah that's how you've been doing it all night. I'm just confused on why we are getting you up. Patient said I don't need to go to the bathroom. I will just wait. Patient was upset he was on the bed alarm, that he has to have help to stand, and couldn't be independent in the room. Asked if I could do anything else for him. He refused and closed his eyes. I left the room. Call light in place, patient's bed alarm on.
[2018-10-23] MEDS: MEROPENEM 1 GM/50 ML PIGGYBACK IV (05:03)
[2018-10-23] MEDS: ENOXAPARIN 40 MG/0.4 ML SYRINGE SUBCUT (08:21)
[2018-10-23] MEDS: INSULIN GLARGINE 100 UNIT/ML 3ML PEN 25 UNIT SUBCUT ×2 (08:22→22:15)
[2018-10-23] MEDS: LORazepam 1 MG TABLET PO ×2 (08:26→22:20)
[2018-10-23] MEDS: LACTOBACILLUS ACIDOPHILUS TABLET 1 EACH PO ×3 (08:26→17:55)
--- NOTE | 2018-10-23 08:27 | P.PN_ITS ---
Subjective Date Patient Seen: 10/23/18 Time Patient Seen: 08:27 Interval history: He is seen today to follow up the type 1 diabetes, right foot diabetic ulcer infection and cellulitis, foot pain and wound VAC. Says he had a miserable night but does not complain about the foot pain as much as he was before. The vancomycin trough is 25.2. That will be stopped as the urinary culture is p robably a skin contaminant. He looks diaphoretic but his blood sugar is only 124. Exam Vital Signs (past 8 hours): - 10/23/18 05:00 10/23/18 05:41 Temperature 97.9 F Pulse Rate 70 Respiratory Rate 18 Blood Pressure 162/90 H Pulse Oximetry 100 Oxygen Delivery Method Room Air Oxygen Flow Rate 0 Narrative Exam Narrative: He is alert and oriented x3. He appears to be in mild distress. Heart is regular rate and rhythm without murmur Lungs are clear to auscultation bilaterally Extremities have no ankle edema The swelling on the right foot as diminished. The redness of the 5th toe is also improved compared to yesterday. The wound VAC is in place and is draining reddish fluid. Objective Labs Result Diagrams: 10/22/18 05:01 10/22/18 05:01 Labs: Laboratory Results - last 24 hr 10/22/18 10/22/18 10:15 10:15 Vancomycin Trough 25.2 H* C. difficile Tox (PCR) Negative for c. 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 1. Right foot cellulitis associated with diabetic foot ulcer -ulceration of distal 5th metatarsal -POD #2 Wound debridement and Wound Vac placement per Dr. Torres -his wound culture is growing Proteus, E coli and strep group A. The Urine culture is growing Staphylococcus Hominis - MRSH. -continue on meropenem due and stop Vancomycin today. -Dilaudid decreased to 0.5 mg IV post op. He is upset by this. Continue Toradol. D/W Ortho. -consider need for PICC line based on culture results and determined duration of antibiotic therapy, noting patient has past history of IVDU may complicate pot ential outpatient IV antibiotic therapy -Wound Vac until 10/24. -ID consult will be helpful to determine duration of IV antibiotics, now that the swelling and redness are improving. 2. Type 1 diabetes -Widely varying blood sugars, between 52 and 239 in the last 24 hours. -continue patient's Lantus 25 units b.i.d., use NovoLog 5 units with meals, and NovoLog medium dose sliding scale, and adjust insulin dosing as required to achieve adequate control 3. CML -followed locally by Dr. Romain Camarena -continue patient's Gleevec -continue lorazepam 1 mg b.i.d. for Gleevec associated nausea 4. Alcohol dependence -recently abstinent and appears at low risk for alcohol withdrawal 5. Disposition -due to history of IV drug use he is not an ideal candidate for community PICC line use to complete antibiotics. This will be challenging. At this time the plan is wound VAC until the and antibiotic duration per pending discussion with Infectious Disease. Quality VTE Deep Vein Thrombosis/Pulmonary Embolism Present on Admission: No
--- NOTE | 2018-10-23 10:54 | PC.NURSE ---
Addendum entered by Melissa Pathak R.N. 10/23/18 13:09: Talked to and asked what he would like us to do with Pts wound vac as it is on low suction at 75mm. He states to keep it in place and will take dressing down tomorrow. Pt given another oxycodone and toradol for pain and he is resting. BS x2 this shift have both been wnl. Original Note: Pt has a wound vac to his r.foot. Dressing does leak around pts toes a tegaderm is hard to wrap around area.. Suppose to run at 125mm suction and somtimes suction goes lower. Staff has reinforced dressings, It may need a new dressing change. Foot with good pulse. Pt given oxycodone for pain and helpful. BS 124 this morning, pt refused his fast acting 5u of insulin and only wanted his lantus. Ate well at breakfast.
--- NOTE | 2018-10-23 11:18 | PM.PN.1 ---
Exam Vital Signs (past 8 hours): - 10/23/18 05:00 10/23/18 05:41 10/23/18 09:00 Temperature 97.9 F 98.2 F Pulse Rate 70 64 Respiratory Rate 18 16 Blood Pressure 162/90 H 144/99 H Pulse Oximetry 100 100 10/23/18 11:11 Temperature Pulse Rate Respiratory Rate Blood Pressure Pulse Oximetry 98 Oxygen Delivery Method Room Air Oxygen Flow Rate 0 Objective Labs Result Diagrams: 10/22/18 05:01 10/22/18 05:01 Labs: Laboratory Results - last 24 hr 10/22/18 10:15 C. difficile Tox (PCR) Negative for c. diff Assessment & Plan Assessment & Plan narrative: Patient is admitted after surgery. Patient has been stable and progressing with physical therapy. Patient is neurovascularly intact on exam. Patient has no signs or symptoms of DVT. Patient's dressing is clean dry and intact with occasional beep. Seal for the wound vac is intact on my exam today. The erythema is minimum around the wound. POD#2 s/p I&D and amputation of small toe. Will continue IV antibiotics and wound check tomorrow. Quality VTE Deep Vein Thrombosis/Pulmonary Embolism Present on Admission: No
[2018-10-23 11:49] LABS: Vancomycin Trough 25.9 ug/mL (10-20)
--- NOTE | 2018-10-23 11:52 | PT.IPTN ---
Current Diagnoses Type 1 diabetes mellitus with foot ulcer (10/19/18) Surgery Performed Operation Date: 10/21/18 15:00 Actual Procedures p I&D ulcer 5th toe(Right) - Baljinder Torres MD Physical Therapy Treatment Note M2 PT-IP Current Condition Start: 10/22/18 13:02 Freq: NEEDED Status: Active Protocol: Document 10/22/18 11:34 AB (Rec: 10/22/18 13:14 AB [id number]) Physical Therapy Current Condition Current Condition Evaluation Date 10/22/18 Treatment Diagnosis I&D R diabetic foot infection; difficulty in walking Onset Date 10/19/18 Weight Bearing Status Weight Bearing Status Partial Weight Bearing Allowed Weight Bearing Amount (enter % RLE: PWB; may WB on R heel to or #) (%) transfer M3 PT-IP Subjective Start: 10/22/18 13:02 Freq: NEEDED Status: Active Protocol: Document 10/23/18 11:51 CLB (Rec: 10/23/18 11:52 CLB [id number]) Subjective Physical Therapy Visit Type Type Patient Refusal Notes Pt refused stating his would vac was leaking and they wouldn't be able to fix it until Wednesday. RN informed pt that he could transfer to the chair and pt continued to refuse any mobility.
[2018-10-23] MEDS: CEFTRIAXONE 1 GM/50 ML FROZ.PIGGY IV (12:17)
[2018-10-23] MEDS: ONDANSETRON 4 MG/2 ML INJ IV ×2 (14:20→22:33)
[2018-10-23] MEDS: ACETAMINOPHEN 325 MG TABLET 975 MG PO ×2 (14:20→22:16)
--- NOTE | 2018-10-23 15:53 | CM.DPC ---
DCP: continued: Met this morning with pt and introduced self and role. Conversation was brief as pt was getting lab draws but her confirmed that his mother Lelo was his DPOA and that it was fine to discuss his care and needs with her. He confirmed that he does live in a little cottage in [facility], that his mother and father lives nearby and see him daily. His sister and her family also live nearby. Called Lelo and set up appt for a conference today and then met at length with her while pt visited with his father. Lelo filled in some of pt's background and said they brought him up to leave near them about 7 years ago. [place] and part of his treatment was opioids for pain. From here he went to addiction of same with included abuse of pills and IV heroin. She says as far as she knows he has not used IV narcotics in the 7 years he has been here. He has struggled with alcohol and he has friends who bring it to him sometimes. She sees him every day and says she has seen no recent signs of alcohol use. She says she has been diagnosed as bipolar. He also is under oncology care with Dr. Camarena and says he does take his chemo medication but it makes him so sick. She says he was diagnosed as a diabetic when he was about 20. She says she and her are aware of how fragile his health is at this point and that his overall ability to heal is compromised by the lifestyle he has led as well as the oncology dx and treatment and the diabetes. Asked if his cottage was conducive to recovering for the foot wound if he is to need IV antibiotics and a wound vac. She stated that the cottage was very nice, small but well set up and kept clean. Pt has a [employer] worker who comes in 2x week to clean and cook. Pt also enjoys cooking when he feels well. She says pt gets no money at all from any source including Medicaid. Anything that Medicaid does not provide his parents assist with and we do not ever give him any money. Pt has all his mail go to their home. His listed address is a mailing address only. Pt does not drive; his parents take him grocery shopping etc but no funds ever change hands. She says it is just what they have had to do to help their son survive and they will continue to do this. We try our best to be supportive but we are aware of his mental illness and addiction history and tendencies and our bottom line is that no money will be given to him for any reason. Pt is basically homebound, he is able to take a bus is he wishes but he has not been well enough. Went over the possible financial limitations of a wound vac as is unclear at this point if [facility] will authorize this. A Wound care consult is in but cannot verify that the Wound clinic has received this until Wednesday. Both pt and Lelo confirm that pt has a [facility] Referral Nurse: Asif: [phone] who is usually available Wednesday - Wednesday. He talks frequently to pt and both says he is very helpful and may be of assist in getting the wound vac approved. Lelo says if not approved but needed, she and her would pay for this. Did check in with pt after his. He asked what all was discussed and went over basics of same. He said he very much appreciated his parents and their care. P: follow up with [facility], Wound care center to check on referral. Dr. Torres and ? need for another I&D. At this point it sounds like IV antibiotics will not be needed. Dr. Benson spoke with ID this afternoon and there is a plan for continued IV in hospital but home on orals....Another hospitalist will be seeing pt tomorrow. Keep pt and MARYANN Lind updated as POC unfolds.
--- NOTE | 2018-10-23 16:08 | PC.NURSE ---
1545- Pt asking to shave, brush teeth, and get a bed bath and have linen changed. IMELDA De La O and this show card writer developed a plan as to fit all these tasks in during the shift. Pt agreed. Black foam wound vac to right outer aspect foot is 125mm and draining sang fluid. Reported from AM RN, wound vac has beed decreasing to 75mm at times. Wound vac has been wrapped with coband to help secure vac and this has been helpful to keep wound vac at 125mm. reported, Dr. Aj stated to not redress the wound/woundvac, Dr. Torres will take down the drsg tomorrow AM. Pt will be on NPO status at midnight and placed on IV fluids as well. 1PA to BSC to BM. Pt is currently shaving, using bedside table vanity mirror. CBG- 104, no intervention required.
[2018-10-23] MEDS: HYDROMORPHONE 0.5 MG INJ IV (19:55)
[2018-10-23] MEDS: DOCUSATE 100 MG CAPSULE PO (22:16)
[2018-10-24] VITALS: BP 125/85; PULSE 68; RESP 16; TEMP 36.3; O2SAT 100
[2018-10-24] MEDS: KETOROLAC 30 MG/ML VIAL IV ×3 (00:10→11:30)
[2018-10-24] MEDS: SODIUM CHLORIDE 0.9% FLUSH 10 ML IV (00:11)
[2018-10-24] MEDS: DEXTROSE 40% GEL (ORAL) 15 GM 15 ML PO (01:35)
[2018-10-24] MEDS: DEXTROSE 5%-LACTATED RINGERS 1,000 ML 84 ML IV (01:43)
--- NOTE | 2018-10-24 01:49 | PC.NURSE ---
0100 CBG, only 40 pt. C/O dizziness & also diaphoretic. Pt. NPO since midnight, MILA Acuña notified. Pt. is awake 15 gm. of Glutose ordered & admin. D5LR admin. early per order @ 84 cc/hr. Will monitor.
--- NOTE | 2018-10-24 01:59 | PC.NURSE ---
0155 CBG rechecked 41, MILA Acuña notified ordered to recheck CBG in 15 mins. Will monitor.
[2018-10-24 04:24] VITALS: BP 161/99; PULSE 61; RESP 16; O2SAT 100
[2018-10-24] MEDS: HYDROMORPHONE 0.5 MG INJ IV ×3 (04:31→10:48)
[2018-10-24 06:00] LABS: Add Manual Diff / Slide Review NO; Basophils Absolute Auto 0 /uL (0-100); Basophils Percent Auto 0.2 % (0-2); Eosinophils Absolute Auto 0 /uL (0-450); Eosinophils Percent Auto 0.8 % (2-4); Hematocrit 32.6 % (41-53); Hemoglobin 10.9 g/dL (13.5-17.5); Lymphocytes Absolute Auto 400 /uL (1100-4500); Lymphocytes Percent Auto 11.2 % (25-40); Mean Corpuscular HGB Conc 33.5 % (30-36); Mean Corpuscular Hemoglobin 32.9 PG (26-34); Mean Corpuscular Volume 97.9 fL (80-100); Monocytes Absolute Auto 600 /uL (0-900); Monocytes Percent Auto 14.7 % (3-14); Neutrophils Absolute Auto 2900 /uL (1500-7000); Neutrophils Percent Auto 73.1 % (50-75); Platelet Count 57 X10^3/uL (150-400); Red Blood Cell Count 3.33 X10^6/uL (4.5-5.9); Red Cell Distribution Width 14.9 % (11.6-14.8); White Blood Cell Count 3.9 X10^3/uL (4.5-11.0)
[2018-10-24 06:10] LABS: Blood Urea Nitrogen 19 mg/dL (9-20); Calcium 8.5 mg/dL (8.4-10.2); Carbon Dioxide 25 mmol/L (22-32); Chloride 106 mmol/L (98-107); Estimated Glomerular Filt Rate > 60.0 mL/min (>60); Glucose 85 mg/dL (70-100); HEMOLYSIS < 15 (0-50); Potassium 4.3 mmol/L (3.4-5.1); Sodium 140 mmol/L (137-145)
--- NOTE | 2018-10-24 06:55 | PC.NURSE ---
0214 CBG 69, 0315 CBG. 90, 0424 CBG 92 & lab. result glucose 85. Pt. C/O muscles weakness & aches states my muscles is aching from the low blood sugar & I'm feeling weak. Also reported that at home I'm not given myself a shot of Lantus on the evening, I only get it in the morning. Will report to day RN.
[2018-10-24 08:00] VITALS: BP 114/72; PULSE 70; RESP 16; TEMP 36.6; O2SAT 100
--- NOTE | 2018-10-24 09:59 | CM.DPC ---
Addendum entered by Vanessa Mas R.N. 10/24/18 14:42: Patient is to be discharged home today, will be on oral antibiotics. [facility]iana Moon and Dr. Root stopped by the care management office. They stated that patient is not going home with wound vac, but will be seen on Wed at [facility], and wound vac could potentially be placed there. Dr. Cruz is also aware, and writing the discharge orders. Discussed home health option with patient. He stated, he thinks that home health would be a good idea, for he does not get out, does not drive, unless he goes to appts. He has support of his parents. He gave this major case detective another address as to where he is staying, here in [place]. Called [facility] [employer], and confirmed that they do accept his insurance. Faxed over face to face, orders, clinical notes, and discharge summary. On face sheet, let them know that patient has appt Wed at the wound clinic. Patient is eager to go home and see his dog. Original Note: DCP Cont: Discussed patient during team rounds. Unclear at this time if patient will be getting another surgery today. Goal is for home with oral antibiotic, as well as wound vac. Called over at the wound clinic, for there is a consult. Spoke to Lyndsay, who stated that she would talk to Lakshmi Moon, and will work on getting her here to see patient. She stated, would try for noon. Let her know the goals, and patient could potentially be discharged tomorrow, depending on surgery. Lyndsay stated, [facility] will pay for wound vac, but not a lot. P: DCP to continue to follow closely. Will follow up with wound clinic, Quiana, and will see if patient will be getting another surgery today. Vanessa Mas RN/Manager Safe
--- NOTE | 2018-10-24 10:42 | PM.PNPO.1 ---
Subjective Date Patient Seen: 10/24/18 Time Patient Seen: 10:30 Interval history: The patient reports that his blood sugars have been labile. He is very anxious to go home if possible. Exam Vital Signs (past 8 hours): - 10/24/18 04:24 10/24/18 08:00 Temperature 97.8 F Pulse Rate 61 70 Respiratory Rate 16 16 Blood Pressure 161/99 H 114/72 Pulse Oximetry 100 100 Oxygen Delivery Method Room Air Oxygen Flow Rate 0 Narrative Exam Narrative: The right foot examination after removal of the wound VAC shows clean granulation tissue in the entire base of the lateral wound with the exception of a small area of exposed periosteum overlying the metatarsal head which appears to be clean but not granulated yet. There does not appear to be any necrotic tissue. Objective Labs Result Diagrams: 10/24/18 05:15 10/24/18 05:15 Labs: Laboratory Results - last 24 hr 10/23/18 10/24/18 10/24/18 10:35 05:15 05:15 WBC 3.9 L RBC 3.33 L Hgb 10.9 L Hct 32.6 L MCV 97.9 MCH 32.9 MCHC 33.5 RDW 14.9 H Plt Count 57 L Neut % (Auto) 73.1 Lymph % (Auto) 11.2 L [place] % (Auto) 14.7 H Eos % (Auto) 0.8 L Baso % (Auto) 0.2 Neut # (Auto) 2900 Lymph # (Auto) 400 L [place] # (Auto) 600 Eos # (Auto) 0 Baso # (Auto) 0 Sodium 140 Potassium 4.3 Chloride 106 Carbon Dioxide 25 BUN 19 Creatinine 1.00 Estimated GFR > 60.0 BUN/Creatinine Ratio 19.0 Glucose 85 D Calcium 8.5 Vancomycin Trough 25.9 H* Assessment & Plan Post-op Postoperative Procedures Operation Date: 10/21/18 15:00 Actual Procedures Side Surgeon p I&D ulcer 5th toe Right Baljinder Torres MD Postoperative day: 3 Postoperative status: doing well Postoperative status narrative: The patient's wound appears to be granulating well. It does not appear that he needs further sharp debridement. The wound is relatively large and will require extended treatment at the Wound Care Center to allow closure. Postoperative plan: routine post-op care Postoperative plan narrative: The Wound Care Center has been consulted and I have spoken to Dr. Arango. I have applied a saline moistened gauze dressing to the wound to keep it from drying out. They will come by in the next couple of hours to evaluate the patient to facilitate his discharge. Time Spent With Patient 15-24 minutes Quality VTE Deep Vein Thrombosis/Pulmonary Embolism Present on Admission: No
[2018-10-24] MEDS: CEFTRIAXONE 1 GM/50 ML FROZ.PIGGY IV (10:46)
[2018-10-24] MEDS: ENOXAPARIN 40 MG/0.4 ML SYRINGE SUBCUT (10:47)
[2018-10-24] MEDS: LORazepam 1 MG TABLET PO (10:47)
--- NOTE | 2018-10-24 10:58 | PT.IPTN ---
Current Diagnoses Type 1 diabetes mellitus with foot ulcer (10/19/18) Surgery Performed Operation Date: 10/21/18 15:00 Actual Procedures p I&D ulcer 5th toe(Right) - Baljinder Torres MD Physical Therapy Treatment Note M2 PT-IP Current Condition Start: 10/22/18 13:02 Freq: NEEDED Status: Active Protocol: Document 10/22/18 11:34 AB (Rec: 10/22/18 13:14 AB [id number]) Physical Therapy Current Condition Current Condition Evaluation Date 10/22/18 Treatment Diagnosis I&D R diabetic foot infection; difficulty in walking Onset Date 10/19/18 Weight Bearing Status Weight Bearing Status Partial Weight Bearing Allowed Weight Bearing Amount (enter % RLE: PWB; may WB on R heel to or #) (%) transfer M3 PT-IP Subjective Start: 10/22/18 13:02 Freq: NEEDED Status: Active Protocol: Document 10/24/18 10:56 CLB (Rec: 10/24/18 10:58 CLB [id number]) Subjective Physical Therapy Visit Type Type Patient Refusal Notes Pt continues to refuse therapy stating he is waiting for surgery and he has low blood sugars. Explained to pt that doctor has ordered PT and pt stated he does not want to participate. Pt will be discharged from PT services at this time.
[2018-10-24] MEDS: LACTOBACILLUS ACIDOPHILUS TABLET 1 EACH PO (11:28)
[2018-10-24] MEDS: ACETAMINOPHEN 325 MG TABLET 975 MG PO (11:29)
[2018-10-24] MEDS: OXYCODONE IR 5 MG TABLET 10 MG PO ×2 (11:30→14:48)
[2018-10-24 12:01] VITALS: O2SAT 99
--- NOTE | 2018-10-24 12:09 | P.PN_ITS ---
Subjective Date Patient Seen: 10/24/18 Interval history: Lalo Han is a 42-year-old male with a past medical history significant for alcohol use disorder, diabetes mellitus type 1 with neuropathy, CML on Gleevac with chronic nausea due to Gleevec and chronic low back pain, who presented for right foot pain and swelling x2 days. The patient is resting in bed comfortably. He did not need further debridement per Dr. Torres. He is eager to go home. Plan to have wound care evaluate today and implement a long-term wound care plan. He denies headache, shortness of breath, chest pain, abdominal pain, nausea, vomiting, fever, chills, dysuria, diarrhea or constipation. He is voiding and eliminating without difficulty. Exam Vital Signs (past 8 hours): - 10/24/18 04:24 10/24/18 08:00 10/24/18 12:01 Temperature 97.8 F Pulse Rate 61 70 Respiratory Rate 16 16 Blood Pressure 161/99 H 114/72 Pulse Oximetry 100 100 99 Oxygen Delivery Method Room Air Oxygen Flow Rate 0 Narrative Exam Narrative: General: Young man lying in bed and in no acute distress, well-developed, well- nourished, appropriately interactive. HEENT: Normocephalic, atraumatic. External ears without defect. Pupils equal, round, and reactive to light. Anicteric sclerae, moist conjunctivae, and no lid lag. Neck: Supple with full range of motion. No lymphadenopathy or thyromegaly. Cardiovascular: Regular rate and rhythm without murmurs, rubs, or gallops appreciated. Pulmonary: Clear to auscultation bilaterally without crackles, wheezes, or rhonchi. Normal respiratory effort with no use of accessory muscles. Abdomen: Soft, bowel sounds present, no tenderness to palpation, nondistended. Hepatosplenomegaly appreciated. No masses appreciated. Extremities: No clubbing, cyanosis, or edema. Right foot with bandage in place C/D/I. Skin: Normal temperature, turgor, and texture; no rash, ulcers, or subcutaneous nodules appreciated. Neurological: Cranial nerves grossly intact. Psychiatric: Depressed mood and flat affect. Alert and oriented x 3. Objective Labs Result Diagrams: 10/24/18 05:15 10/24/18 05:15 Labs: Laboratory Results - last 24 hr 10/24/18 10/24/18 05:15 05:15 WBC 3.9 L RBC 3.33 L Hgb 10.9 L Hct 32.6 L MCV 97.9 MCH 32.9 MCHC 33.5 RDW 14.9 H Plt Count 57 L Neut % (Auto) 73.1 Lymph % (Auto) 11.2 L [place] % (Auto) 14.7 H Eos % (Auto) 0.8 L Baso % (Auto) 0.2 Neut # (Auto) 2900 Lymph # (Auto) 400 L [place] # (Auto) 600 Eos # (Auto) 0 Baso # (Auto) 0 Sodium 140 Potassium 4.3 Chloride 106 Carbon Dioxide 25 BUN 19 Creatinine 1.00 Estimated GFR > 60.0 BUN/Creatinine Ratio 19.0 Glucose 85 D Calcium 8.5 Assessment & Plan Assessment & Plan narrative: . CML, present on admission. Presumed stable. -Longstanding history of CML on Gleevec. He is managed by Dr. Camarena of Oncology. -Continue Gleevec 300 mg daily. -Continue monitor CBC daily. . Chronic low back pain and shoulder pain, present on admission. Stable. -Patient reports this is a significant reason for his use of alcohol, as well as, other traumas that have occurred in his life. -Patient has history of heroin abuse and therefore will avoid opiates. -Patient believes his shoulder pain is due to influenza vaccination in which he acquired ?SIRVA?, however, pain is bilateral. Physical therapy evaluated patient's shoulders and specialized testing did not demonstrate any signs of ligamentous injury and ROM is intact. Continue PT and recommend outpatient PT. . Alcohol use disorder, present on admission. Active. -Encouraged participation in an intensive alcohol dependency program at the time of discharge for which patient refuses. -POLICE COMMANDING OFFICER provided resources for outpatient alcohol rehabilitation and treatment, as well as, behavioral health. . Diabetes mellitus type 1, insulin using, chronic, present on admission. Active. -Last hemoglobin A1c 7.3% 08/2017. Hemoglobin A1c 7.2% this admission. -Continue normal Lantus dose 20 units twice daily. -Increased correctional scale insulin to medium dose algorithm. -Continue carbohydrate consistent diet and decreased amount of carbohydrates as BG elevated. . History of bipolar disorder. -Patient believes this was an incorrect diagnosis. He is significantly depressed. -Recommended outpatient psychiatric evaluation to delineate true psychiatric diagnosis and appropriate treatment. Quality VTE Deep Vein Thrombosis/Pulmonary Embolism Present on Admission: No
--- NOTE | 2018-10-24 12:42 | PM.DS.1 ---
History of Present Illness Date Patient Seen: 10/19/18 Chief complaint: right foot swelling and burning x2 days Narrative: Written by Dr. 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 He woke up in the middle of the night with the pain. He was noted to have a distal right 5th metatarsal ulceration which patient was not aware of prior to ER visit. Also noted to have significant cellulitis appearance of the right foot. He denies fevers or chills. On ER workup, WBC 8.2, ESR 36, CRP 8.4 (versus baseline CRP 0.6 on 12/24/2016). Lower extremity CT reported showing 2.2 cm enhancing fluid collection concerning for abscess adjacent to 5th metatarsophalangeal joint, questionable erosive change at base of 5th proximal phalanx suspicious for early septic arthritis, subtle alteration of 5th metatarsal head which may indicate early osteomyelitis. Patient was started in the ER on vancomycin and meropenem and admitted to inpatient service. Discharge Providers Date of admission: 10/19/18 16:47 Discharge Date: 10/24/18 Primary care physician: Madalyn Willingham DO Consults: 10/19/18 18:36 Consult to Physician Routine Comment: Consulting Provider: Baljinder Torres Reason for consultation: rt foot sbscess Has provider been notified: Yes 10/21/18 17:20 Consult to Discharge Planning Routine Comment: Consult to Physical Therapy Evaluate & Treat Comment: Physician Instructions: Evaluate and Treat 10/22/18 09:39 Consult to Wound Care Routine Comment: Postop R foot diabetic ulcer I and D, wound VAC Consulting Provider: [facility] Discharge provider: Berta Cruz DO Summary Discharge Diagnosis: 1. Right foot polymicrobial infection, secondary to diabetic foot ulcer, present on admission. Active. 2. Diabetes mellitus type 1, present on admission. Stable. 3. CML, present on admission. Presumed stable. 4. History of alcohol abuse. Hospital Course: Lalo aHn is a 42-year-old male with a past medical history significant for alcohol use disorder, diabetes mellitus type 1 with neuropathy, CML on Gleevac with chronic nausea due to Gleevec and chronic low back pain who presented for right foot pain and swelling x2 days. 1. Right foot polymicrobial infection, secondary to diabetic foot ulcer, present on admission. Active. -Diabetic ulceration of distal 5th metatarsal with polymicrobial infection status post debridement on 10/21/2018. Wound VAC has been removed. -Wound culture is growing Proteus, E coli and strep group A. 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 -Continued antibiotics with meropenem and Vancomycin which was switched to ceftriaxone after wound cultures resulted and at the recommendation of infectious disease at [facility]. Discharged on levofloxacin due to penicillin allergy for 11 additional days to complete a 14 day course from day of debridement. -Wound care consulted and have provided long-term wound care plan. Patient has scheduled appointment on 10/26 at [facility]. Plan to pursue possible wound VAC and a knee scooter outpatient if covered by insurance. 2. Diabetes mellitus type 1, present on admission. Stable. -Patient has had widely varying blood glucose levels during hospitalization. Discussed and educated on hypoglycemic emergency and management. -Continued patient's Lantus 25 units b.i.d., use NovoLog 5 units with meals, and NovoLog medium dose sliding scale, and adjust insulin dosing as required to achieve adequate control 3. CML, present on admission. Presumed stable. -Followed by Oncology, Dr. Romain Camarena. -Patient's Gleevec was not restarted as he was unable to have someone bring medication into the hospital. -Continue lorazepam 1 mg b.i.d. for Gleevec associated nausea. 4. History of alcohol abuse. -Recently abstinent and appears at low risk for alcohol withdrawal Exam Vital Signs (past 8 hours): - 10/24/18 08:00 10/24/18 12:01 Temperature 97.8 F Pulse Rate 70 Respiratory Rate 16 Blood Pressure 114/72 Pulse Oximetry 100 99 Oxygen Delivery Method Room Air Oxygen Flow Rate 0 Narrative Exam Narrative: General: Young man lying in bed and in no acute distress, well-developed, well-nourished, appropriately interactive. HEENT: Normocephalic, atraumatic. External ears without defect. Pupils equal, round, and reactive to light. Anicteric sclerae, moist conjunctivae, and no lid lag. Neck: Supple with full range of motion. No lymphadenopathy or thyromegaly. Cardiovascular: Regular rate and rhythm without murmurs, rubs, or gallops appreciated. Pulmonary: Clear to auscultation bilaterally without crackles, wheezes, or rhonchi. Normal respiratory effort with no use of accessory muscles. Abdomen: Soft, bowel sounds present, no tenderness to palpation, nondistended. Hepatosplenomegaly appreciated. No masses appreciated. Extremities: No clubbing, cyanosis, or edema. Right foot with bandage in place C/D/I. Skin: Normal temperature, turgor, and texture; no rash, ulcers, or subcutaneous nodules appreciated. Neurological: Cranial nerves grossly intact. Psychiatric: Depressed mood and flat affect. Alert and oriented x 3. Objective Labs Result Diagrams: 10/24/18 05:15 10/24/18 05:15 Labs: Laboratory Results - last 24 hr 10/24/18 10/24/18 05:15 05:15 WBC 3.9 L RBC 3.33 L Hgb 10.9 L Hct 32.6 L MCV 97.9 MCH 32.9 MCHC 33.5 RDW 14.9 H Plt Count 57 L Neut % (Auto) 73.1 Lymph % (Auto) 11.2 L [place] % (Auto) 14.7 H Eos % (Auto) 0.8 L Baso % (Auto) 0.2 Neut # (Auto) 2900 Lymph # (Auto) 400 L [place] # (Auto) 600 Eos # (Auto) 0 Baso # (Auto) 0 Sodium 140 Potassium 4.3 Chloride 106 Carbon Dioxide 25 BUN 19 Creatinine 1.00 Estimated GFR > 60.0 BUN/Creatinine Ratio 19.0 Glucose 85 D Calcium 8.5 Discharge Plan Discharge Plan Patient Disposition: Home Health Service Transfer to: [facility] Discharge comment: You are being discharged home with home health for PT/OT/Nursing for wound care and diabetic management. Please follow-up at your scheduled appointment with wound care on 10/26/18. Please follow-up with your PCP in the next 3-5 days which we are scheduling you an appointment. You were given a temporary prescription for oxycodone to use sparingly. Do not use oxycodone while operating motor vehicle or under the influence of alcohol or drugs. Any further Narcotic prescriptions will need to come from your PCP. You have been prescribed levofloxacin 750 mg daily for 11 additional days to treat your foot infection. Discharge Med Rec/Prescriptions Prescriptions: New Bacid (L. acidophilus) 1 billion cell- 250 mg Tablet 1 ea PO TIDWM Qty: 90 RF: 0 docusate sodium [DOK] 100 mg Capsule 100 mg PO BID Qty: 60 RF: 0 oxycodone 5 mg Tablet 10 mg PO Q6-12H PRN (Reason: Pain, Moderate (4-6)) Qty: 15 RF: 0 levofloxacin 750 mg tablet 750 mg PO DAILY Qty: 11 RF: 0 Continued ondansetron 4 mg tablet,disintegrating 4 mg PO QID PRN (Reason: nausea and vomiting) Qty: 30 RF: 3 BD U/F Hilda Pen Needle [id number] .Route .MEDSUPPLY Qty: 100 RF: 3 Humalog KwikPen Insulin 100 unit/mL insulin pen 1 - 12 unit subcut TIDCC Qty: 1 RF: 3 Lantus Solostar U-100 Insulin 100 unit/mL (3 mL) insulin pen 25 unit SUBCUT BID Qty: 15 RF: 3 True Metrix test strips strip .Route .MEDSUPPLY RF: 0 prochlorperazine maleate [Compazine] 10 mg Tablet 10 mg PO Q6H PRN (Reason: Nausea) Qty: 30 RF: 2 Syringes 1 syr miscellaneous DIRECTED RF: 0 imatinib [Gleevec] 100 MG tablet 300 mg PO QPM RF: 0 meloxicam 15 mg tablet 15 mg PO DAILY Qty: 30 RF: 2 Follow up/Referrals: Madalyn Willingham DO [Primary Care Provider] - 3-5 Days (Nursing staff from office will call patient with appoitment for folow up 3-[address]ham) Provider Discharge Instructions Diet: Diet as Tolerated and Carb-consistent/Diabetic Activity: Activity as tolerated with crutches and scooter once obtained Skin/Wound/Dressing Care Other wound treatment: Follow-up at wound Care Clinic on 10/26/2018 at scheduled appointment and continue wound care management per their instructions. Visit Report/Discharge Packet Instructions: DI for Hypoglycemia, DI for Wound Infection, [facility]: Wound Care Discharge Data Primary Care Provider: Madalyn Willingham Attending Provider: Prudencio Lugo Admit Date/Time: 10/19/18 16:47 Quality VTE Deep Vein Thrombosis/Pulmonary Embolism Present on Admission: No
--- NOTE | 2018-10-24 14:59 | PC.NURSE ---
Day Shift Discharge instructions given to pt on prescriptions, follow-up appts, and wound care. Acknowledged understanding. Crutches provided by PT and in room. Pt now awaiting ride.
--- NOTE | 2018-10-24 15:20 | PT.IPTN ---
Current Diagnoses Type 1 diabetes mellitus with foot ulcer (10/19/18) Surgery Performed Operation Date: 10/21/18 15:00 Actual Procedures p I&D ulcer 5th toe(Right) - Baljinder Torres MD Physical Therapy Treatment Note M2 PT-IP Current Condition Start: 10/22/18 13:02 Freq: NEEDED Status: Discharge Protocol: Document 10/22/18 11:34 AB (Rec: 10/22/18 13:14 AB [id number]) Physical Therapy Current Condition Current Condition Evaluation Date 10/22/18 Treatment Diagnosis I&D R diabetic foot infection; difficulty in walking Onset Date 10/19/18 Weight Bearing Status Weight Bearing Status Partial Weight Bearing Allowed Weight Bearing Amount (enter % RLE: PWB; may WB on R heel to or #) (%) transfer M3 PT-IP Subjective Start: 10/22/18 13:02 Freq: NEEDED Status: Discharge Protocol: Document 10/24/18 15:20 RS (Rec: 10/24/18 15:59 RS [id number]) Subjective Physical Therapy Visit Type Type Treatment Note Visit Start Time 14:50 Visit Stop Time 15:20 Total Visit Minutes 30 Notes Pt evaluated already, actually discharged from acute PT this morning by pt request. later putting new order in so pt could participate and acquire crutches for discharge today. No IE or re-eval needed. This was just a final treatment session for the above reason. Physical Therapy Visit Comments Patient Comments Pt reports doing ok agreeable to try crutches. M4 PT-IP Mobility and Gait Start: 10/22/18 13:02 Freq: NEEDED Status: Discharge Protocol: Document 10/24/18 15:20 RS (Rec: 10/24/18 15:59 RS [id number]) PT-Transfer Assessment Equipment Transfer Assistive Device Axillary Crutches Transfers Transfer Destination Bed Chair Transfer Technique Stand Step Pivot Transfer Ability Level of Assist Standby Assistance Gait Assessment Gait Gait Assistance Required: Standby Assistance Distance (Feet) 25 Able to Maintain Weight Bearing Status Yes During Gait Assistive Devices Assistive Device Axillary Crutches Stair Climbing Assessment Comments Stair Climbing Comments not tested; pt declined. PT-Balance Assessment Standing Balance and Reactions Static Standing Balance Ability Good Dynamic Standing Balance Ability Good Device Used crutches M5 PT-IP Objective Assessments Start: 10/22/18 13:02 Freq: NEEDED Status: Discharge Protocol: Document 10/22/18 11:34 AB (Rec: 10/22/18 13:14 AB [id number]) Orientation Orientation/Cognition Level of Alertness Alert Orientation Name Age Place Situation Language Function Ability No Deficits Noted Safety Awareness Understands Safety Issues Gross Range of Motion Lower Extremity ROM Assessment Within Functional Limits Strength Lower Extremity Strength Assessment Bilaterally Impaired Hip 4-/5 Knee 4-/5 Coordination Assessment Gross Coordination Gross Coordination WNL Muscle Tone Muscle Tone WNL Yes M6 PT-IP Treatment Start: 10/22/18 13:02 Freq: NEEDED Status: Discharge Protocol: Document 10/24/18 15:20 RS (Rec: 10/24/18 15:59 RS [id number]) Physical Therapy Treatment Equipment Issued Equipment Type and Company axillary crutces via [employer] Other Treatments Other Treatment Performed instructed pt on ideal use of axillary crutches for transfers and gait pattern M7 PT-IP Assessment and Plan Start: 10/22/18 13:02 Freq: NEEDED Status: Discharge Protocol: Document 10/24/18 15:20 RS (Rec: 10/24/18 15:59 RS [id number]) PT Summary Assessment and Plan Potential Rehabilitation Potential Good Status of Condition at Evaluation Stable Summary Progress Towards Goals Safe For Discharge Goals Met Assessment Summary Pt mobilizes safely with axillary crutches, able to maintain WB precautions while mobilizing in a household setting. Pt has no other acute PT goals, will sign off. Frequency of Treatment Frequency Of Treatment Discharge Recommendations To Nursing Amount of Assist Needed Independent Discharge Recommendations PT Discharge Recommendations Home with Assistance Equipment Needed for Home Before crutches were provided from Discharge [facility]
== END 2018-10-24 15:47 | disposition home health service (06) | DRG 982 ==
LOC: ED 16:46 → AC 16:48
PROVIDERS: Family Medicine; Orthopaedic Surgery; Admitting Provider Internal Medicine; Emergency Provider Nurse Practitioner Family; Family Provider Family Medicine; PCP Family Medicine; Visit Provider Internal Medicine
PROC: 0LBV0ZZ Excision of Right Foot Tendon, Open Approach (ICD-10-PCS; principal; 2018-10-21 15:00)
DX: E10.621 Type 1 diabetes mellitus with foot ulcer (principal); L03.115 Cellulitis of right lower limb; C92.10 Chronic myeloid leukemia, BCR/ABL-positive, not having achieved remission; E10.65 Type 1 diabetes mellitus with hyperglycemia; E10.40 Type 1 diabetes mellitus with diabetic neuropathy, unspecified; F10.20 Alcohol dependence, uncomplicated; L97.511 Non-pressure chronic ulcer of other part of right foot limited to breakdown of skin; Z87.891 Personal history of nicotine dependence; R11.0 Nausea; T45.1X5A Adverse effect of antineoplastic and immunosuppressive drugs, initial encounter
CPT/HCPCS: 36415; 36591; 71045; 73630; 73701; 80048; 80053; 80202; 81001; 82565; 82962; 83605; 84145; 85025; 85027; 85651; 86140; 87040; 87070; 87075; 87077; 87086; 87147; 87186; 87205; 87493; 96365; 96366; 96375; 96376; 97116; 97161; 97530; 99283; 99284; 99406; J1170; J1650; J1885; J2175; J2250; J2270; J2405; J2704; J3010; J7121; Q9967

== ENCOUNTER → 2018-10-28 13:49 | Outpatient (CLI) | payer OTHER, MEDICAID, SELFPAY ==
[2018-10-19 18:57] VITALS: BMI 20.3
== END ==
PROVIDERS: Family Provider Family Medicine; PCP Family Medicine; Visit Provider Family Medicine
DX: E11.621 Type 2 diabetes mellitus with foot ulcer (principal); E11.40 Type 2 diabetes mellitus with diabetic neuropathy, unspecified; L97.515 Non-pressure chronic ulcer of other part of right foot with muscle involvement without evidence of necrosis; C92.10 Chronic myeloid leukemia, BCR/ABL-positive, not having achieved remission; Z79.899 Other long term (current) drug therapy; Z92.25 Personal history of immunosuppression therapy
CPT/HCPCS: 11043; 11046; 99203; 99213

== ENCOUNTER → 2018-11-04 13:44 | Outpatient (CLI) | payer OTHER, MEDICAID, SELFPAY ==
[2018-10-19 18:57] VITALS: BMI 20.3
== END ==
PROVIDERS: Family Provider Family Medicine; Visit Provider Family Medicine
DX: E11.621 Type 2 diabetes mellitus with foot ulcer (principal); L97.513 Non-pressure chronic ulcer of other part of right foot with necrosis of muscle; C92.10 Chronic myeloid leukemia, BCR/ABL-positive, not having achieved remission; Z79.899 Other long term (current) drug therapy; Z92.25 Personal history of immunosuppression therapy
CPT/HCPCS: 11042; 11045; 87070; 87075; 87077; 87186; 87205

== ENCOUNTER → 2018-11-05 08:43 | Outpatient (CLI) | payer OTHER, MEDICAID, SELFPAY ==
[2018-10-19 18:57] VITALS: BMI 20.3
--- NOTE | 2018-11-05 08:52 | DI.RAD.S_ITS ---
PROCEDURE: XR FOOT RT MIN 3V INDICATIONS: EVAL FOR OSTEOMYELITIS TECHNIQUE: 3 views of the foot were acquired. COMPARISON: None. FINDINGS: Bones: No fractures or dislocations. No suspicious bony lesions. There is diffuse interphalangeal joint space narrowing and osteophytosis. There is a large calcaneal spur. Soft tissues: No tibiotalar joint effusion. Achilles tendon appears normal. IMPRESSION: Degenerative change. There are no suspicious bony erosions to suggest acute osteomyelitis; however plain film radiography can be less sensitive in the acute phases of osteomyelitis. If there is high clinical suspicion for acute osteomyelitis, MRI of the foot with and without contrast is recommended. Dictated by: Maria M Schwarz M.D. on 11/05/2018 at 10:36 Approved by: Maria M Schwarz M.D. on 11/05/2018 at 10:38
[2018-11-05 09:45] LABS: Add Manual Diff / Slide Review NO; Basophils Absolute Auto 0 /uL (0-100); Basophils Percent Auto 0.5 % (0-2); Eosinophils Absolute Auto 100 /uL (0-450); Eosinophils Percent Auto 1.4 % (2-4); Hematocrit 32.7 % (41-53); Hemoglobin 10.9 g/dL (13.5-17.5); Lymphocytes Absolute Auto 1000 /uL (1100-4500); Mean Corpuscular HGB Conc 33.3 % (30-36); Mean Corpuscular Hemoglobin 31.9 PG (26-34); Mean Corpuscular Volume 95.8 fL (80-100); Monocytes Absolute Auto 600 /uL (0-900); Monocytes Percent Auto 8.6 % (3-14); Neutrophils Absolute Auto 5200 /uL (1500-7000); Neutrophils Percent Auto 74.5 % (50-75); Platelet Count 209 X10^3/uL (150-400); Red Blood Cell Count 3.42 X10^6/uL (4.5-5.9); Red Cell Distribution Width 14.4 % (11.6-14.8)
[2018-11-05 10:07] LABS: Erythrocyte Sedimentation Rate 61 MM/HR (0-15)
[2018-11-05 10:12] LABS: Alanine Aminotransferase 24 IU/L (21-72); Albumin Globulin Ratio 1.2 (1.0-2.8); Alkaline Phosphatase 148 U/L (38-126); Aspartate Aminotransferase 27 IU/L (17-59); BUN Creatinine Ratio 6.4 (6-22); Bilirubin Total 0.6 mg/dL (0.2-1.3); Blood Urea Nitrogen 7 mg/dL (9-20); C-Reactive Protein Quant 1.5 mg/dL (<1.0); Calcium 9.1 mg/dL (8.4-10.2); Carbon Dioxide 24 mmol/L (22-32); Chloride 103 mmol/L (98-107); Estimated Glomerular Filt Rate > 60.0 mL/min (>60); Globulin 3.4 g/dL (1.7-4.1); Glucose 235 mg/dL (70-100); HEMOLYSIS < 15 (0-50); Potassium 5.2 mmol/L (3.4-5.1); Sodium 141 mmol/L (137-145); Total Protein 7.4 g/dL (6.3-8.2)
== END ==
PROVIDERS: Visit Provider Family Medicine
DX: L08.89 Other specified local infections of the skin and subcutaneous tissue (principal)
CPT/HCPCS: 36415; 73630; 80053; 85025; 85651; 86140

== ENCOUNTER → 2018-11-11 13:18 | Outpatient (CLI) | payer OTHER, MEDICAID, SELFPAY ==
[2018-10-19 18:57] VITALS: BMI 20.3
== END ==
PROVIDERS: Visit Provider Family Medicine
DX: E11.621 Type 2 diabetes mellitus with foot ulcer (principal); L97.515 Non-pressure chronic ulcer of other part of right foot with muscle involvement without evidence of necrosis; C92.10 Chronic myeloid leukemia, BCR/ABL-positive, not having achieved remission; Z79.899 Other long term (current) drug therapy; Z92.25 Personal history of immunosuppression therapy; L08.9 Local infection of the skin and subcutaneous tissue, unspecified; R52 Pain, unspecified; R60.0 Localized edema
CPT/HCPCS: 11043; 11046; 99214

== ENCOUNTER → 2018-11-22 14:18 | Outpatient (CLI) | payer OTHER, MEDICAID, SELFPAY | PROVIDERS: Visit Provider Family Medicine | DX: E11.621 Type 2 diabetes mellitus with foot ulcer (principal); E11.40 Type 2 diabetes mellitus with diabetic neuropathy, unspecified; L97.511 Non-pressure chronic ulcer of other part of right foot limited to breakdown of skin; C92.10 Chronic myeloid leukemia, BCR/ABL-positive, not having achieved remission; Z79.899 Other long term (current) drug therapy; Z92.25 Personal history of immunosuppression therapy; Z79.4 Long term (current) use of insulin | CPT/HCPCS: 11042; 99214 ==

== ENCOUNTER → 2018-11-22 15:53 | Outpatient (CLI) | payer OTHER, MEDICAID, SELFPAY ==
[2018-11-22 16:12] LABS: Add Manual Diff / Slide Review NO; Basophils Absolute Auto 0 /uL (0-100); Basophils Percent Auto 0.7 % (0-2); Eosinophils Absolute Auto 100 /uL (0-450); Eosinophils Percent Auto 1.2 % (2-4); Hematocrit 35.3 % (41-53); Hemoglobin 11.5 g/dL (13.5-17.5); Lymphocytes Absolute Auto 1200 /uL (1100-4500); Lymphocytes Percent Auto 18.5 % (25-40); Mean Corpuscular HGB Conc 32.6 % (30-36); Mean Corpuscular Hemoglobin 30.7 PG (26-34); Mean Corpuscular Volume 94.4 fL (80-100); Monocytes Absolute Auto 600 /uL (0-900); Monocytes Percent Auto 8.7 % (3-14); Neutrophils Absolute Auto 4500 /uL (1500-7000); Neutrophils Percent Auto 70.9 % (50-75); Platelet Count 126 X10^3/uL (150-400); Red Blood Cell Count 3.74 X10^6/uL (4.5-5.9); Red Cell Distribution Width 13.7 % (11.6-14.8); White Blood Cell Count 6.4 X10^3/uL (4.5-11.0)
[2018-11-22 16:26] LABS: Erythrocyte Sedimentation Rate 32 MM/HR (0-15)
[2018-11-22 16:48] LABS: Blood Urea Nitrogen 9 mg/dL (9-20); Calcium 8.9 mg/dL (8.4-10.2); Carbon Dioxide 21 mmol/L (22-32); Chloride 104 mmol/L (98-107); Estimated Glomerular Filt Rate > 60.0 mL/min (>60); Glucose 193 mg/dL (70-100); HEMOLYSIS < 15 (0-50); Potassium 4.2 mmol/L (3.4-5.1); Sodium 139 mmol/L (137-145)
[2018-11-22 16:49] LABS: C-Reactive Protein Quant < 0.5 mg/dL (<1.0)
== END ==
PROVIDERS: Visit Provider Family Medicine
DX: E11.621 Type 2 diabetes mellitus with foot ulcer (principal); L97.513 Non-pressure chronic ulcer of other part of right foot with necrosis of muscle
CPT/HCPCS: 36415; 80048; 85025; 85651; 86140

== ENCOUNTER → 2018-12-01 07:40 | Outpatient (CLI) | payer OTHER, MEDICAID, SELFPAY ==
--- NOTE | 2018-12-01 | DI.MRI.S_ITS ---
PROCEDURE: MR FOOT RT WO/W CON INDICATIONS: Type 2 diabetes mellitus with foot ulcer TECHNIQUE: Noncontrast sagittal T1 spin echo and T2 fast spin echo with fat saturation, long-axis T1 spin echo and T2 fast spin echo with fat saturation; short-axis T1 spin echo, proton density fast spin echo, and T2 fast spin echo with fat saturation through the forefoot. Post-contrast short axis, long axis, and sagittal T1 spin echo with fat saturation through the forefoot. COMPARISON: [facility], CR, XR FOOT RT MIN 3V, 11/05/2018, 9:13. FINDINGS: Image quality: Excellent. Bones and joints: There is a small focus of bony erosion along the lateral aspect of the 5th metatarsal head. There is associated bone marrow and periosteal edema and enhancement within the distal aspect of the 5th metatarsal as well as the 5th proximal phalanx. Findings are compatible of osteomyelitis. There is a small effusion at the 5th metatarsophalangeal joint raising the possibility of septic arthritis. No fractures. The sesamoid bones appear in expected positions, without internal edema. There is mild degeneration of the 1st interphalangeal and metatarsophalangeal joints. Soft tissues: There is a soft tissue ulcer along the lateral aspect of the forefoot overlying the 5th metatarsal head. There is apparent extension to the underlying bone where there is subjacent cortical erosion. There is associated regional soft tissue edema and enhancement within the lateral forefoot compatible with cellulitis no discrete abscess collection identified.. Mild nonspecific subcutaneous edema is considered dorsally in the mid and forefoot without associated enhancement. The visualized plantar foot muscles demonstrate minimal nonspecific edema and fatty atrophy. Visualized flexor and extensor tendons appear intact, without tenosynovitis. The distal insertions of the peroneus brevis and longus tendons appear intact. The principal Lisfranc ligament appears intact. No soft tissue ganglion cysts or bursal fluid collections. Sagittal images demonstrate no evidence for plantar plate disruption. IMPRESSION: 1. Soft tissue ulcer demonstrated laterally in the forefoot with extension to the underlying 5th metatarsal head associated with subjacent focus of cortical erosion. Associated osteomyelitis is demonstrated within the 5th metatarsal and 5th proximal phalanx with possible septic arthritis at the 5th metatarsophalangeal joint. 2. Soft tissue edema and enhancement laterally in the forefoot consistent with cellulitis without a discrete abscess identified. Dictated by: Bryce Martin M.D. on 12/01/2018 at 12:21 Approved by: Bryce Martin M.D. on 12/01/2018 at 12:33
== END ==
PROVIDERS: Visit Provider Family Medicine
DX: E11.621 Type 2 diabetes mellitus with foot ulcer (principal); L97.509 Non-pressure chronic ulcer of other part of unspecified foot with unspecified severity
CPT/HCPCS: 73720

== ENCOUNTER → 2018-12-26 09:33 | Outpatient (CLI) | payer OTHER, MEDICAID, SELFPAY ==
[2018-12-26 10:58] LABS: Add Manual Diff / Slide Review NO; Basophils Absolute Auto 100 /uL (0-100); Basophils Percent Auto 1.3 % (0-2); Eosinophils Absolute Auto 100 /uL (0-450); Eosinophils Percent Auto 1.6 % (2-4); Hematocrit 35.2 % (41-53); Hemoglobin 11.5 g/dL (13.5-17.5); Lymphocytes Absolute Auto 900 /uL (1100-4500); Lymphocytes Percent Auto 11.9 % (25-40); Mean Corpuscular HGB Conc 32.8 % (30-36); Mean Corpuscular Hemoglobin 29.6 PG (26-34); Monocytes Absolute Auto 700 /uL (0-900); Monocytes Percent Auto 9.3 % (3-14); Neutrophils Absolute Auto 5900 /uL (1500-7000); Neutrophils Percent Auto 75.9 % (50-75); Platelet Count 127 X10^3/uL (150-400); Red Blood Cell Count 3.91 X10^6/uL (4.5-5.9); Red Cell Distribution Width 15.3 % (11.6-14.8); White Blood Cell Count 7.7 X10^3/uL (4.5-11.0)
[2018-12-26 11:09] LABS: Erythrocyte Sedimentation Rate 21 MM/HR (0-15)
[2018-12-26 11:16] LABS: Alanine Aminotransferase 22 IU/L (21-72); Albumin 4.1 g/dL (3.5-5.0); Albumin Globulin Ratio 1.3 (1.0-2.8); Alkaline Phosphatase 123 U/L (38-126); Aspartate Aminotransferase 42 IU/L (17-59); BUN Creatinine Ratio 11.5 (6-22); Bilirubin Total 0.4 mg/dL (0.2-1.3); Blood Urea Nitrogen 15 mg/dL (9-20); Calcium 8.3 mg/dL (8.4-10.2); Carbon Dioxide 24 mmol/L (22-32); Chloride 106 mmol/L (98-107); Estimated Glomerular Filt Rate > 60.0 mL/min (>60); Globulin 3.1 g/dL (1.7-4.1); Glucose 127 mg/dL (70-100); HEMOLYSIS < 15 (0-50); Sodium 143 mmol/L (137-145); Total Protein 7.2 g/dL (6.3-8.2)
[2018-12-26 11:21] LABS: C-Reactive Protein Quant < 0.5 mg/dL (<1.0)
== END ==
PROVIDERS: Visit Provider Internal Medicine Infectious Disease
DX: E11.628 Type 2 diabetes mellitus with other skin complications (principal); L08.9 Local infection of the skin and subcutaneous tissue, unspecified
CPT/HCPCS: 36415; 80053; 85025; 85651; 86140

== ENCOUNTER → 2018-12-30 11:43 | Outpatient (ROUT) | payer OTHER, MEDICAID, SELFPAY ==
[2018-12-30 12:03] LABS: Creatine Kinase 253 U/L (55-170)
== END ==
PROVIDERS: Visit Provider Internal Medicine Infectious Disease
DX: M86.172 Other acute osteomyelitis, left ankle and foot (principal); E11.621 Type 2 diabetes mellitus with foot ulcer
CPT/HCPCS: 82550

== ENCOUNTER → 2019-01-09 13:24 | Outpatient (ROUT) | payer OTHER, MEDICAID, SELFPAY ==
[2019-01-09 13:35] LABS: Add Manual Diff / Slide Review NO; Basophils Absolute Auto 200 /uL (0-100); Basophils Percent Auto 2.2 % (0-2); Eosinophils Absolute Auto 0 /uL (0-450); Eosinophils Percent Auto 0.4 % (2-4); Hematocrit 36.6 % (41-53); Lymphocytes Absolute Auto 600 /uL (1100-4500); Lymphocytes Percent Auto 6.3 % (25-40); Mean Corpuscular HGB Conc 32.8 % (30-36); Mean Corpuscular Hemoglobin 29.5 PG (26-34); Mean Corpuscular Volume 89.8 fL (80-100); Monocytes Absolute Auto 700 /uL (0-900); Neutrophils Absolute Auto 7700 /uL (1500-7000); Neutrophils Percent Auto 83.1 % (50-75); Platelet Count 93 X10^3/uL (150-400); Red Blood Cell Count 4.07 X10^6/uL (4.5-5.9); Red Cell Distribution Width 16.6 % (11.6-14.8); White Blood Cell Count 9.3 X10^3/uL (4.5-11.0)
[2019-01-09 13:43] LABS: Alanine Aminotransferase 34 IU/L (21-72); Albumin 4.4 g/dL (3.5-5.0); Albumin Globulin Ratio 1.5 (1.0-2.8); Alkaline Phosphatase 139 U/L (38-126); Aspartate Aminotransferase 46 IU/L (17-59); Bilirubin Total 0.6 mg/dL (0.2-1.3); Blood Urea Nitrogen 7 mg/dL (9-20); Carbon Dioxide 26 mmol/L (22-32); Chloride 95 mmol/L (98-107); Creatine Kinase 82 U/L (55-170); Estimated Glomerular Filt Rate > 60.0 mL/min (>60); Glucose 347 mg/dL (70-100); HEMOLYSIS < 15 (0-50); Sodium 136 mmol/L (137-145); Total Protein 7.4 g/dL (6.3-8.2)
[2019-01-09 13:44] LABS: C-Reactive Protein Quant < 0.5 mg/dL (<1.0)
== END ==
PROVIDERS: Visit Provider Internal Medicine Infectious Disease
DX: M86.172 Other acute osteomyelitis, left ankle and foot (principal); E11.621 Type 2 diabetes mellitus with foot ulcer
CPT/HCPCS: 80053; 82550; 85025; 86140

== ENCOUNTER → 2019-01-24 13:05 | Outpatient (ROUT) | payer OTHER, MEDICAID, SELFPAY ==
[2019-01-24 13:14] LABS: Add Manual Diff / Slide Review NO; Basophils Absolute Auto 200 /uL (0-100); Basophils Percent Auto 2.1 % (0-2); Eosinophils Absolute Auto 100 /uL (0-450); Eosinophils Percent Auto 1.9 % (2-4); Hematocrit 35.5 % (41-53); Hemoglobin 11.6 g/dL (13.5-17.5); Lymphocytes Absolute Auto 1000 /uL (1100-4500); Lymphocytes Percent Auto 12.9 % (25-40); Mean Corpuscular HGB Conc 32.7 % (30-36); Mean Corpuscular Hemoglobin 29.3 PG (26-34); Mean Corpuscular Volume 89.6 fL (80-100); Monocytes Absolute Auto 600 /uL (0-900); Monocytes Percent Auto 8.2 % (3-14); Neutrophils Absolute Auto 5800 /uL (1500-7000); Neutrophils Percent Auto 74.9 % (50-75); Platelet Count 79 X10^3/uL (150-400); Red Blood Cell Count 3.97 X10^6/uL (4.5-5.9); Red Cell Distribution Width 18.8 % (11.6-14.8); White Blood Cell Count 7.8 X10^3/uL (4.5-11.0)
[2019-01-24 13:35] LABS: Alanine Aminotransferase 43 IU/L (21-72); Albumin 4.5 g/dL (3.5-5.0); Albumin Globulin Ratio 1.5 (1.0-2.8); Alkaline Phosphatase 132 U/L (38-126); Aspartate Aminotransferase 93 IU/L (17-59); Bilirubin Total 0.5 mg/dL (0.2-1.3); Blood Urea Nitrogen 9 mg/dL (9-20); Calcium 8.5 mg/dL (8.4-10.2); Carbon Dioxide 25 mmol/L (22-32); Chloride 100 mmol/L (98-107); Creatine Kinase 103 U/L (55-170); Estimated Glomerular Filt Rate > 60.0 mL/min (>60); Glucose 243 mg/dL (70-100); HEMOLYSIS < 15 (0-50); Potassium 4.5 mmol/L (3.4-5.1); Sodium 141 mmol/L (137-145); Total Protein 7.5 g/dL (6.3-8.2)
[2019-01-24 13:36] LABS: C-Reactive Protein Quant < 0.5 mg/dL (<1.0)
== END ==
PROVIDERS: Visit Provider Internal Medicine Infectious Disease
DX: M86.172 Other acute osteomyelitis, left ankle and foot (principal); E11.621 Type 2 diabetes mellitus with foot ulcer
CPT/HCPCS: 80053; 82550; 85025; 86140

== ENCOUNTER 2019-02-09 22:14 | Emergency (ER) | payer OTHER, MEDICAID, SELFPAY ==
[2019-02-09 22:27] VITALS: BP 143/104; PULSE 101; RESP 15; TEMP 36.8; O2SAT 100; BMI 37.7
--- NOTE | 2019-02-09 22:40 | DI.RAD.S_ITS ---
PROCEDURE: XR CHEST 1V INDICATIONS: chest pain TECHNIQUE: One view of the chest was acquired. COMPARISON: [facility], CR, XR CHEST 1V, 10/19/2018, 14:02. FINDINGS: Surgical changes and devices: Cervical spine fixation hardware. Lungs and pleura: Lungs are clear. No pleural effusions or pneumothorax. Mediastinum: Mediastinal contours appear normal. Heart size is normal. Bones and chest wall: No suspicious bony lesions. Overlying soft tissues appear unremarkable. IMPRESSION: No acute cardiopulmonary disease process. Dictated by: Sharita Lepe MD, PhD on 02/10/2019 at 8:30 Approved by: Sharita Lepe MD, PhD on 02/10/2019 at 8:31
[2019-02-09 23:07] LABS: Prothrombin Time 11.3 SECONDS (10.1-12.7)
[2019-02-09 23:09] LABS: Hematocrit 37.1 % (41-53); Hemoglobin 12.5 g/dL (13.5-17.5); Mean Corpuscular HGB Conc 33.6 % (30-36); Mean Corpuscular Hemoglobin 29.1 PG (26-34); Mean Corpuscular Volume 86.8 fL (80-100); PTT Partial Thromboplastin Tim 34 SECONDS (26.4-36.2); Platelet Count 120 X10^3/uL (150-400); Red Blood Cell Count 4.27 X10^6/uL (4.5-5.9); Red Cell Distribution Width 18.6 % (11.6-14.8); White Blood Cell Count 20.3 X10^3/uL (4.5-11.0)
[2019-02-09 23:11] LABS: Alanine Aminotransferase 36 IU/L (<50); Albumin 4.7 g/dL (3.5-5.0); Albumin Globulin Ratio 1.4 (1.0-2.8); Alkaline Phosphatase 138 U/L (38-126); Aspartate Aminotransferase 86 IU/L (17-59); BUN Creatinine Ratio 8.2 (6-22); Bilirubin Total 0.5 mg/dL (0.2-1.3); Blood Urea Nitrogen 9 mg/dL (9-20); Calcium 8.3 mg/dL (8.4-10.2); Carbon Dioxide 23 mmol/L (22-32); Chloride 102 mmol/L (98-107); Creatine Kinase 221 U/L (55-170); Estimated Glomerular Filt Rate > 60.0 mL/min (>60); Globulin 3.3 g/dL (1.7-4.1); Glucose 177 mg/dL (70-100); HEMOLYSIS < 15 (0-50); Potassium 4.3 mmol/L (3.4-5.1); Sodium 140 mmol/L (137-145)
[2019-02-09 23:12] LABS: Add Manual Diff / Slide Review YES; Lipase < 10 U/L (23-300)
[2019-02-09 23:22] LABS: Troponin I < 0.012 ng/mL (0.01-0.034)
--- NOTE | 2019-02-09 23:24 | ED.CHESTPAIN ---
HPI - Chest Pain General Chief Complaint: Chest Pain Stated Complaint: RIGHT ARM AND CHEST PAIN S/P PICC LINE REMOVAL Time Seen by Provider: 02/09/19 23:23 Source: patient Mode of arrival: Ambulatory Limitations: no limitations History of Present Illness HPI narrative: Patient is a 43-year-old male with history of type 1 diabetes, CML, alcoholism, recent osteomyelitis presenting with right-sided chest discomfort. He had a PICC line removed today after he had been on 7 weeks of antibiotics for osteomyelitis. He is followed closely by wound care. She states that the PICC line was removed in about 2 hours after which he started having significant right-sided pain. He feels a little short of breath as well. He says that his legs are slowly getting better. Pain is nonradiating he feels slightly short of breath. He also states that he has not been taking his Gleevec for the last 2 and half weeks. MD complaint: chest pain Onset (ago): hour(s) Duration: constant Onset: during rest Pain location: substernal Related Data Home Medications Medication Instructions Recorded Confirmed Syringes 1 syr MISCELLANEOUS DIRECTED 11/10/17 10/19/18 imatinib [Gleevec] 300 mg PO QPM 12/16/17 11/22/18 True Metrix test strips 0 strip .ROUTE .MEDSUPPLY 04/06/18 10/19/18 Previous Rx's Medication Instructions Recorded BD U/F Hilda Pen Needle [id number] #100 each 06/13/18 insulin lispro 100 unit/mL 1 - 12 unit SUBCUT TIDCC #1 ea 06/13/18 subcutaneous pen insulin glargine 100 unit/mL (3 25 unit SUBCUT BID #15 ml 08/02/18 mL) subcutaneous pen prochlorperazine maleate 10 mg PO Q6H PRN #30 tab 10/04/18 [Compazine] L.acidoph-L.bulg-B.bif-S.therm 1 ea PO TIDWM #90 tab 10/24/18 [Bacid (L. acidophilus)] docusate sodium [DOK] 100 mg PO BID #60 cap 10/24/18 oxycodone 10 mg PO Q6-12H PRN #15 tab 10/24/18 ondansetron 4 mg PO QID PRN #30 tab 11/22/18 True Metrix Glucose Test Strip #100 each NS 11/29/18 True Metrix Blood Glucose Meter #1 ea 12/09/18 Allergies Allergy/AdvReac Type Severity Reaction Status Date / Time Penicillins [PENICILLINS] Allergy Severe Tongue Verified 10/19/18 12:54 swelling, hives adhesive Allergy Unknown PLASTIC Verified 10/19/18 12:54 TAPE latex [LATEX] Allergy Unknown Verified 10/19/18 12:54 Review of Systems Review of Systems Narrative: GENERAL: Denies chills, fatigue, malaise, fever, sweats, travel HEENT: Denies sinus pain, ear pain, sore throat, difficulty swallowing, neck pain RESPIRATORY: Denies dyspnea, cough, wheezing, hemoptysis, sputum. CARDIOVASCULAR: See HPI GASTROINTESTINAL: Denies nausea, vomiting, abdominal pain, diarrhea, constipation, melena. : Denies dysuria, frequency, incontinence, hematuria, urinary retention, flank pain. MUSCULOSKELETAL: Denies weakness, joint pain, or bony pain SKIN: No rash, no erythema, no pruritus NEUROLOGIC: Denies weakness, dizziness, headache, numbness, change in speech, confusion PSYCHIATRIC: No concerning psychosocial issues. 12 point review of systems is negative except for those stated above and HPI Patient History Medical History Alcoholism (Acute) CML (chronic myelocytic leukemia) (Acute) Insulin dependent diabetes mellitus (Acute) Thrombocytopenia (Acute) Surgical History Status post appendectomy Family History Grandfather Diabetes mellitus Mother Cancer Social History household members: none Smoking Status: Former smoker alcohol intake: current alcohol intake frequency: a few times a week Alcohol type: beer Substance Use Type: does not use Exam Initial Vital Signs Initial Vital Signs: Vital Signs Temperature 98.3 F 02/09/19 22:27 Pulse Rate 101 H 02/09/19 22:27 Respiratory Rate 15 02/09/19 22:27 Blood Pressure 143/104 H 02/09/19 22:27 Pulse Oximetry 100 02/09/19 22:27 GENERAL: Well-appearing, well-nourished and in no acute distress. HEENT: Head atraumatic,EOMI, pupils reactive, face symmetric, moist mucous membranes CARDIOVASCULAR: Regular rate and rhythm without murmurs, rubs or gallops. RESPIRATORY: Breath sounds equal bilaterally, no wheezes rales or rhonchi. ABDOMEN: Soft, nontender. Normoactive bowel sounds all 4 quadrants. No guarding or rebound. EXTREMITIES: Normal range of motion, no clubbing or edema. Neurovascularly intact NEUROLOGICAL: Alert and oriented x4.Normal gait and speech. Cranial nerves II through XII grossly intact. SKIN: Warm, dry, no laceration, no petechiae, no rashes or lesions. Lower extremities are currently wrapped and have compression socks off Course Orders Ordered: ED Orders 02/09/19 22:30 EKG-12 Lead Routine 02/09/19 22:40 XR chest 1V Stat 02/09/19 22:55 Complete Blood Count AUTO DIFF Stat Comprehensive Metabolic Panel Stat Lipase Stat Partial Thromboplastin Time Stat Procalcitonin Stat Prothrombin Time INR Stat Troponin & CK Cardiac Panel Stat 02/09/19 23:29 CT angio chest PE protocol Stat 02/10/19 01:26 EKG-12 Lead Routine Discontinued Medications Al Hydrox/Mg Hydrox/Simethicone 20 ml/ Lidocaine HCl 15 ml 0 ml PO NOW ONE Stop: 02/10/19 01:20 Last Admin: 02/10/19 01:32 Dose: 35 ml Documented by: SLOAN Ketorolac Tromethamine (Toradol) 15 mg IV NOW ONE Stop: 02/09/19 23:30 Last Admin: 02/09/19 23:44 Dose: 15 mg Documented by: SLOAN Vital Signs Vital signs: Vital Signs - 8 hr 02/09/19 22:27 02/10/19 01:13 Temperature 98.3 F Pulse Rate 101 H 85 Respiratory Rate 15 13 Blood Pressure 143/104 H Blood Pressure [Left Arm] 119/81 Pulse Oximetry 100 98 MDM - Chest Pain Lab Data Attestation: I reviewed the patient's lab results. Result diagrams: 02/09/19 22:55 02/09/19 22:55 Labs: Lab Results 02/09/19 02/09/19 02/09/19 Range/Units 22:55 22:55 22:55 WBC 20.3 H (4.5-11.0) X10^3/uL RBC 4.27 L (4.5-5.9) X10^6/uL Hgb 12.5 L (13.5-17.5) g/dL Hct 37.1 L (41-53) % MCV 86.8 (80-100) fL MCH 29.1 (26-34) PG MCHC 33.6 (30-36) % RDW 18.6 H (11.6-14.8) % Plt Count 120 L (150-400) X10^3/uL Neut % (Auto) Not Reportable Lymph % (Auto) Not Reportable [place] % (Auto) Not Reportable Eos % (Auto) Not Reportable Baso % (Auto) Not Reportable Lymph # (Auto) Not Reportable [place] # (Auto) Not Reportable Baso # (Auto) Not Reportable Total Counted 100 Seg Neutrophils % 56.0 (38-70) % Band Neutrophils % 9.0 H (3-7) % Lymphocytes % (Manual) 12.0 L (25-45) % Atypical Lymphs % 2.0 H ( - 0) % Monocytes % (Manual) 4.0 (2-11) % Eosinophils % (Manual) 3.0 (2-4) % Basophils % (Manual) 1.0 (0-1) % Metamyelocytes % 8.0 H (-0) % Myelocytes % 5.0 H (-0) % Neutrophils # (Manual) 79355 H (7048-2016) /uL Toxic Granulation Present H Dohle Bodies 1+ H Platelet Estimate Decreased on smear Plt Morphology Comment RBC Morphology See below Poikilocytosis 1+ H Anisocytosis 1+ H PT 11.3 (10.1-12.7) SECONDS INR 1.0 (0.9-1.3) APTT 34 D (26.4-36.2) SECONDS Sodium 140 (137-145) mmol/L Potassium 4.3 (3.4-5.1) mmol/L Chloride 102 (98-107) mmol/L Carbon Dioxide 23 (22-32) mmol/L BUN 9 (9-20) mg/dL Creatinine 1.10 (0.66-1.25) mg/dL Estimated GFR > 60.0 (>60) mL/min BUN/Creatinine Ratio 8.2 (6-22) Glucose 177 H (70-100) mg/dL Calcium 8.3 L (8.4-10.2) mg/dL Total Bilirubin 0.5 (0.2-1.3) mg/dL AST 86 H (17-59) IU/L ALT 36 (<50) IU/L Alkaline Phosphatase 138 H (38-126) U/L Total Creatine Kinase 221 H (55-170) U/L CK-MB (CK-2) 3.49 H (<2.37) ng/mL CK-MB (CK-2) Rel Index 1.6 (1.5-5.0) % Troponin I < 0.012 (0.01-0.034) ng/mL Total Protein 8.0 (6.3-8.2) g/dL Albumin 4.7 (3.5-5.0) g/dL Globulin 3.3 (1.7-4.1) g/dL Albumin/Globulin Ratio 1.4 (1.0-2.8) Lipase < 10 L (23-300) U/L Procalcitonin (<0.5) ng/mL 02/09/19 Range/Units 22:55 WBC (4.5-11.0) X10^3/uL RBC (4.5-5.9) X10^6/uL Hgb (13.5-17.5) g/dL Hct (41-53) % MCV (80-100) fL MCH (26-34) PG MCHC (30-36) % RDW (11.6-14.8) % Plt Count (150-400) X10^3/uL Neut % (Auto) Lymph % (Auto) [place] % (Auto) Eos % (Auto) Baso % (Auto) Lymph # (Auto) [place] # (Auto) Baso # (Auto) Total Counted Seg Neutrophils % (38-70) % Band Neutrophils % (3-7) % Lymphocytes % (Manual) (25-45) % Atypical Lymphs % ( - 0) % Monocytes % (Manual) (2-11) % Eosinophils % (Manual) (2-4) % Basophils % (Manual) (0-1) % Metamyelocytes % (-0) % Myelocytes % (-0) % Neutrophils # (Manual) (6420-5040) /uL Toxic Granulation Dohle Bodies Platelet Estimate Plt Morphology Comment RBC Morphology Poikilocytosis Anisocytosis PT (10.1-12.7) SECONDS INR (0.9-1.3) APTT (26.4-36.2) SECONDS Sodium (137-145) mmol/L Potassium (3.4-5.1) mmol/L Chloride (98-107) mmol/L Carbon Dioxide (22-32) mmol/L BUN (9-20) mg/dL Creatinine (0.66-1.25) mg/dL Estimated GFR (>60) mL/min BUN/Creatinine Ratio (6-22) Glucose (70-100) mg/dL Calcium (8.4-10.2) mg/dL Total Bilirubin (0.2-1.3) mg/dL AST (17-59) IU/L ALT (<50) IU/L Alkaline Phosphatase (38-126) U/L Total Creatine Kinase (55-170) U/L CK-MB (CK-2) (<2.37) ng/mL CK-MB (CK-2) Rel Index (1.5-5.0) % Troponin I (0.01-0.034) ng/mL Total Protein (6.3-8.2) g/dL Albumin (3.5-5.0) g/dL Globulin (1.7-4.1) g/dL Albumin/Globulin Ratio (1.0-2.8) Lipase (23-300) U/L Procalcitonin 0.06 (<0.5) ng/mL Imaging Data Chest x-ray: Attestation: I personally reviewed and interpreted this imaging study as follows: My impression: No acute cardiopulmonary process CT scan - chest: Radiologist's impression: Preliminary report no PE is identified. Mild esophageal wall thickening may be incidental although mild esophagitis is technically a possibility ECG Data Attestation: I personally reviewed and interpreted this ECG as follows: Prior ECG tracings: available for review Interpretation: Normal sinus rhythm rate 87 p.r. interval [address] elevation depression or T-wave inversion MDM Narrative Medical decision making narrative: Patient continues to have some mild right-sided chest pain. He has s elevated WBC however he has stopped his Gleevec with history of CML. I told him to start taking and Gleevac again I think that this may be related. He is afebrile his procalcitonin is improved my do not believe him to have acute infection is. He did just finish 7 weeks of IV antibiotics for his osteomyelitis. Symptoms are not consistent with cardiac. CT does not show any evidence of pulmonary embolism or any other abnormality. He is given a GI cocktail for possible esophagitis. He does come within the [facility] report Discharge Plan Departure Patient Disposition: Home Clinical Impression: Atypical chest pain Discharge Date/Time: 02/10/19 02:10 Instructions: DI for Atypical Chest Pain Activity Restrictions/Additional Instructions: *You have been diagnosed with atypical chest *What to do: At this time CT scan blood work EKG are reassuring please follow up with her PCP in regards to your chest discomfort *Continue to take medications as directed *Follow up with your primary care provider in 2-3 days *Return to ER if you should have increasing chest pain, increasing shortness of breath or any new, worsening or concerning symptoms Prescriptions: No Action (DME) BD U/F Hilda Pen Needle [id number] 0 .Route .MEDSUPPLY Qty: 100 RF: 3 Humalog KwikPen Insulin 100 unit/mL insulin pen 1 - 12 unit subcut TIDCC Qty: 1 RF: 3 Lantus Solostar U-100 Insulin 100 unit/mL (3 mL) insulin pen 25 unit SUBCUT BID Qty: 15 RF: 3 (DME) True Metrix Glucose Test Strip strip See Dose Instructions .ROUTE .MEDSUPPLY Qty: 100 RF: 1 (DME) True Metrix Blood Glucose Meter Qty: 1 RF: 0 True Metrix test strips strip 0 strip .Route .MEDSUPPLY RF: 0 prochlorperazine maleate [Compazine] 10 mg Tablet 10 mg PO Q6H PRN (Reason: Nausea) Qty: 30 RF: 2 ondansetron 4 mg tablet,disintegrating 4 mg PO QID PRN (Reason: nausea and vomiting) Qty: 30 RF: 3 Syringes 1 syr miscellaneous DIRECTED RF: 0 imatinib [Gleevec] 100 MG tablet 300 mg PO QPM RF: 0 Bacid 1 billion cell- 250 mg Tablet 1 ea PO TIDWM Qty: 90 RF: 0 docusate sodium [DOK] 100 mg Capsule 100 mg PO BID Qty: 60 RF: 0 oxycodone 5 mg Tablet 10 mg PO Q6-12H PRN (Reason: Pain, Moderate (4-6)) Qty: 15 RF: 0
[2019-02-09 23:26] LABS: CKMB % Relative Index 1.6 % (1.5-5.0); Creatine Kinase MB 3.49 ng/mL (<2.37)
--- NOTE | 2019-02-09 23:29 | DI.CT.S_ITS ---
PROCEDURE: CT ANGIO CHEST PE PROTOCOL INDICATIONS: right sided pain and shortness of brath, PICC pulled earlier today TECHNIQUE: After the administration of intravenous contrast, 2 mm thick sections acquired from the pulmonary apices to the posterior costophrenic angles. 3-dimensional maximum intensity projection (MIP) coronal and sagittal reformats were then acquired through the thorax. For radiation dose reduction, the following was used: automated exposure control, adjustment of mA and/or kV according to patient size. COMPARISON: None. FINDINGS: Image quality: Excellent. Pulmonary arteries: Pulmonary arteries are normal in size, and demonstrate no intraluminal filling defects to suggest central pulmonary embolism. Lungs and pleura: Lungs are clear. No pleural effusions or pneumothorax. Central and peripheral airways are patent. Mediastinum: Heart size is normal, without pericardial effusion. No mediastinal or hilar adenopathy. Thoracic aorta is normal in caliber and enhancement. Circumferential wall thickening noted in the distal esophagus. Bones and chest wall: No suspicious bony lesions. Ribs and thoracic spine appear intact throughout. No axillary or supraclavicular adenopathy. Abdomen: The liver has nodular margins compatible with hepatic cirrhosis. Visualized spleen is enlarged. Pancreatic atrophy is noted. Multiple pancreatic ossifications noted compatible with sequela of chronic pancreatitis. IMPRESSION: 1. No pulmonary embolus. 2. Circumferential wall thickening involving the distal esophagus which could be due to inflammatory process or infiltrating neoplasm. Recommend endoscopy or barium contrasted esophagram further evaluation. 3. Hepatic cirrhosis. 4. Splenomegaly. 5. Sequela of chronic pancreatitis with pancreatic atrophy.. Dictated by: Sharita Lepe MD, PhD on 02/10/2019 at 7:31 Approved by: Sharita Lepe MD, PhD on 02/10/2019 at 7:35
[2019-02-09 23:33] LABS: Neutrophils Absolute Manual 13195 /uL (3000-5900); Total Cells Counted 100
[2019-02-09 23:34] LABS: Anisocytosis 1+; Platelet Estimate Decreased on smear
[2019-02-09 23:35] LABS: Poikilocytosis 1+
[2019-02-09 23:36] LABS: Dohle Bodies 1+; Toxic Granulation Present
[2019-02-09] MEDS: KETOROLAC 60 MG/2 ML VIAL 15 MG IV (23:44)
[2019-02-10 00:55] LABS: Procalcitonin 0.06 ng/mL (<0.5)
[2019-02-10 01:13] VITALS: BP 119/81; PULSE 85; RESP 13; O2SAT 98
[2019-02-10] MEDS: MAG HYDROX/ALUMINUM/SIMETH SUS 20 ML, LIDOCAINE VISCOUS 2% 15 ML PO (01:32)
== END 2019-02-10 02:10 | disposition home or self-care (01) ==
PROVIDERS: Emergency Provider Emergency Medicine
DX: R07.89 Other chest pain (principal); M86.9 Osteomyelitis, unspecified; Z98.1 Arthrodesis status; R79.89 Other specified abnormal findings of blood chemistry
CPT/HCPCS: 36415; 71045; 71275; 80053; 82550; 82553; 83690; 84145; 84484; 85025; 85610; 85730; 93005; 93010; 96374; 99282; 99285; J1885; Q9967

== ENCOUNTER → 2019-03-08 10:40 | Oncology outpatient (ONC) | payer OTHER, SELFPAY ==
--- NOTE | 2017-08-10 15:36 | PC.NURSE ---
Received voicemail from patient stating that Dr. Szymanski had written him an Rx for Hydrocodone and Ativan. He states his pharmacy could only fill a certain amount of the Hydrocodone due to insurance. Patient states that per [facility] pharmacy, our office needs to call the patient's insurance to override the maximum quantity allowed. This RN was under the impression that Jolie ZARAGOZA had spoken in great detail previously to Dr. Madalyn Willingham at [facility] as well as the patient's mother about Dr. Willingham being the patient's primary prescriber for any narcotic or benzodiazepines. At patient's 08/03/17 visit, Dr. Szymanski prescribed Hydrocodone x 90 tabs and Ativan x 100 tabs (x2 refills). Dr. Szymanski was not aware of the patient's agreement with Dr. Willingham. Once informed, Dr. Szymanski gave verbal orders to D/C all remaining Hydrocodone and cancel any Ativan refills. Spoke with the pharmacist at [facility], who will cancel all remaining refills and additional Hydrocodone ordered by Dr. Szymanski. The pharmacy asked that we notify the patient. The patient did call back this afternoon and was transferred to [place], director. Called [facility] and spoke with Thelma who will notify. Dr. Willingham of the situation.
--- NOTE | 2017-10-20 14:02 | ONC.PN ---
Assessment and Plan - Time Spent with Patient IMPRESSION: 1. Chronic myelogenous leukemia, chronic phase by history. 2. Thrombocytopenia. 3. History of substance abuse. 4. Diabetes mellitus. 5. Anxiety with panic attacks. Lab work was drawn at his visit and is pending at this time. I have instructed him to continue with imatinib 300 mg daily pending results of blood counts, Chem panel and bcr/ABL PCR today. Monitor for new symptoms and call back as needed. I have instructed him to follow up with his PCP for management of anxiety and other health issues. PLAN: 1. Continue imatinib 300 mg daily. We will call his pharmacy to approve refill today. 2. CBC, CMP, LDH and RT PCR for bcr/ABL pending today. 3. Follow up with other providers and PCP as discussed. 4. Return appointment in 2 months. 5. CBC, CMP, LDH prior to the visit. DICTATED BY KIM CAMP MD MEDICAL ONCOLOGY AND HEMATOLOGY PN -Subjective Interval history: HEMATOLOGY/ONCOLOGY PROGRESS NOTE DATE OF SERVICE: OCTOBER 20, 2017 PATIENT NAME: RADHA MCDOWELL DATE OF : 1975 PCP: IDENTIFICATION: Mr. Mcdowell is a 41-year-old gentleman with CML reportedly diagnosed 11 years ago in [place], [place]. Initially managed by Dr. Maurice and later transitioning here to Dr. Leger. INTERVAL HISTORY: Mr. Mcdowell is a 41-year-old gentleman with history of CML diagnosed February 2011 according to note from Dr Leger in 2013, however, pt states he was diagnosed in [place], [place] about 11 years ago. Treated previously with imatinib 300 mg daily though this was reportedly held earlier this year when he was admitted for evaluation of rectal bleeding. [facility] endoscopy reportedly did not identify a bleeding source according to the patient. He was seen in clinic in July by MILA Trejo and at that time Bcr/ABL 07/21/2017 was 14%. She asked him to resume Gleevec at 300 mg daily which he says he has been taking until he ran out last night. They have contacted the pharmacy for refill. He presents to clinic today accompanied by his mom, Lelo. He notes ongoing symptoms include poor appetite, abdominal discomfort, intermittent nose bleeds, anxiety with panic attacks. Also has diabetes. Followed by Michaela Willingham ONCOLOGY HISTORY: Chronic myelogenous leukemia, chronic phase diagnosed in [place], [place]. Initially treated with imatinib later switching to dasatinib for an unclear period of time. Recently treated with imatinib. Assessment/Plan Time spent with Patient A total of 20 minutes were spent on this appointment, all of that time [id number] with the patient in counseling and coordination of care. Discussion with patient included lab results, [diagnosis], treatment options, risks and benefits. Plan for treatment This is a 41 year old man with a long history oc CML chronic phase with partially treated disease based on the chronic intermittent nature of TKI treatment due to a combination of side effects, intercurrent illness, substance abuse and compliance. His recent rise in quantitative PCR for p210 may be attributed tro being off gleleevec for two weeks. He has tried all the TKIs and tolerated gleevec the best; it is surprising and yet encouraging that he seems to continue to respond to gleevec when taken appropriately. To confirm this, he will have quantitative PCR for p210 monthly for the next three months with an exam in three months. at 1102 <Electronically signed by Justino Werner MD> (PLEASE NOTE): This report may have been all or partially generated using a voice recognition software program. While every effort has been made to edit content upon its completion, landscape artist errors may occur. Please contact the [facility] at if there are any questions, or if further clarification is necessitated. - Additional ROS Additional ROS: Review of systems General: Denies fever or night sweats. HEENT no headaches, vision change or dysphagia. Respiratory: No cough or dyspnea. Cardiac: No PND or orthopnea. GI: As above. : Stable. Musculoskeletal: As above. Neurologic: Negative. Results - Labs 10/20/17 13:53 10/20/17 13:53 - Imaging Additional studies: Procedures Biopsy of bone, other bones (07/01/14) Detoxification Services for Substance Abuse Treatment (09/20/16) Excisional debridement of wound, infection, or burn (12/23/13) Injection of tranquilizer (01/01/14) Injection or infusion of other therapeutic or prophylactic substance (01/01/14) Inspection of Lower Intestinal Tract, Via Natural or Artificial Opening Endoscopic (12/23/16) Inspection of Upper Intestinal Tract, Via Natural or Artificial Opening Endoscopic (12/23/16) Other endoscopy of small intestine (08/21/13) Transfusion of Nonautologous Platelets into Peripheral Vein, Percutaneous Approach (12/23/16) Transfusion of Nonautologous Red Blood Cells into Peripheral Vein, Percutaneous Approach (12/23/16) Transfusion of packed cells (07/01/14) Transfusion of platelets (06/10/14) Venous catheterization, not elsewhere classified (07/01/14) Home Medications and Allergies Home Medications Medication Instructions Recorded Confirmed Type Syringes syr #30 10/19/16 Rx insulin lispro [Humalog KwikPen 1 - 12 unit SQ TIDCC #1 ea 03/25/17 Rx Insulin] ondansetron [Zofran ODT] 4 mg SUBLINGUAL Q6HP PRN #30 odt 05/17/17 Rx [place] ea #100 05/24/17 Rx insulin glargine [Lantus Solostar 15 u SQ BID #1 ea 06/23/17 Rx U-100 Insulin] hydrocodone-acetaminophen [[place]] 1 - 2 tab PO Q6HP PRN #5 tab 07/13/17 Rx hydrocortisone acetate [Anusol-HC] 25 mg R BID #14 supp 07/15/17 Rx magnesium citrate 273 ml PO ONCE #1 bot 07/15/17 Rx simethicone [Gas-X Extra Strength] 125 mg PO Q6HP PRN #30 cap 07/15/17 Rx ondansetron [Zofran ODT] 4 mg SUBLINGUAL Q6HP PRN #20 odt 07/26/17 Rx True Metrix test strips #100 each 08/18/17 Rx imatinib [Gleevec] 300 mg PO QDAY #60 tab 10/11/17 Rx docusate sodium [Colace] 100 mg PO QDAY PRN 10/20/17 10/20/17 History Allergies Allergy/AdvReac Type Severity Reaction Status Date / Time Penicillins [PENICILLINS] Allergy Severe Tongue Verified 08/31/17 22:43 swelling, hives adhesive Allergy Unknown PLASTIC Verified 08/31/17 22:43 TAPE latex [LATEX] Allergy Unknown Verified 08/31/17 22:43 Exam - Constitutional positive no acute distress, positive thin, positive cooperative - Routine HEENT Exam Head: Present: normocephalic, atraumatic Eye: Present: EOMI, PERRL, conjunctivae pink. Absent: conjunctival icterus, scleral injection ENT: Present: mucous membranes moist, oropharynx clear - Routine Neck Exam Present: supple. Absent: JVD, lymphadenopathy - Routine Respiratory Exam Present: Clear to auscultation bilaterally. Absent: accessory muscle use, rales, wheezes, crackles - Routine Cardiovascular Exam Present: RRR, S1, S2, murmur. Absent: S3 - Routine Abdominal Exam Present: soft, normoactive bowel sounds. Absent: tenderness, distended, organomegaly Comments: Spleen tip palpable on inspiration. - Routine Extremities Exam Absent: cyanosis, clubbing, edema - Routine Skin Exam Present: intact. Absent: cyanosis, erythema, jaundice - Routine Neurological Exam Present: alert, oriented X3, moving all extremities, normal speech - Routine Psychiatric Exam Present: normal affect, normal thought process, cooperative, good judgment
[2017-10-20 14:17] LABS: Alanine Aminotransferase 54 IU/L (21-72); Albumin 4.4 g/dL (3.5-5.0); Albumin Globulin Ratio 1.6 (1.0-2.8); Alkaline Phosphatase 111 U/L (38-126); Aspartate Aminotransferase 131 IU/L (17-59); Bilirubin Total 1.3 mg/dL (0.2-1.3); Blood Urea Nitrogen 9 mg/dL (9-20); Calcium 8.4 mg/dL (8.4-10.2); Carbon Dioxide 22 mmol/L (22-32); Chloride 101 mmol/L (98-107); Estimated Glomerular Filt Rate > 60.0 mL/min (>60); Globulin 2.7 g/dL (1.7-4.1); Glucose 314 mg/dL (70-100); HEMOLYSIS < 15 (0-50); Potassium 4.2 mmol/L (3.4-5.1); Sodium 141 mmol/L (137-145); Total Protein 7.1 g/dL (6.3-8.2)
--- NOTE | 2017-10-20 14:19 | P.PNONC_ITS ---
Assessment and Plan - Time Spent with Patient IMPRESSION: 1. Chronic myelogenous leukemia, chronic phase by history. 2. Thrombocytopenia. 3. History of substance abuse. 4. Diabetes mellitus. 5. Anxiety with panic attacks. Lab work was drawn at his visit and is pending at this time. I have instructed him to continue with imatinib 300 mg daily pending results of blood counts, Chem panel and bcr/ABL PCR today. Monitor for new symptoms and call back as needed. I have instructed him to follow up with his PCP for management of anxiety and other health issues. PLAN: 1. Continue imatinib 300 mg daily. We will call his pharmacy to approve refill today. 2. CBC, CMP, LDH and RT PCR for bcr/ABL pending today. 3. Follow up with other providers and PCP as discussed. 4. Return appointment in 2 months. 5. CBC, CMP, LDH prior to the visit. DICTATED BY KIM CAMP MD MEDICAL ONCOLOGY AND HEMATOLOGY PN -Subjective Interval history: HEMATOLOGY/ONCOLOGY PROGRESS NOTE DATE OF SERVICE: OCTOBER 20, 2017 PATIENT NAME: RADHA MCDOWELL DATE OF : 1975 PCP: IDENTIFICATION: Mr. Mcdowell is a 41-year-old gentleman with CML reportedly diagnosed 11 years ago in [place], [place]. Initially managed by Dr. Maurice and later transitioning here to Dr. Leger. INTERVAL HISTORY: Mr. Mcdowell is a 41-year-old gentleman with history of CML diagnosed February 2011 according to note from Dr Leger in 2013, however, pt states he was diagnosed in [place], [place] about 11 years ago. Treated previously with imatinib 300 mg daily though this was reportedly held earlier this year when he was admitted for evaluation of rectal bleeding. [facility] endoscopy reportedly did not identify a bleeding source according to the patient. He was seen in clinic in July by MILA Trejo and at that time Bcr/ABL 07/21/2017 was 14%. She asked him to resume Gleevec at 300 mg daily which he says he has been taking until he ran out last night. They have contacted the pharmacy for refill. He presents to clinic today accompanied by his mom, Lelo. He notes ongoing symptoms include poor appetite, abdominal discomfort, intermittent nose bleeds, anxiety with panic attacks. Also has diabetes. Followed by Michaela Willingham ONCOLOGY HISTORY: Chronic myelogenous leukemia, chronic phase diagnosed in [place], [place]. Initially treated with imatinib later switching to dasatinib for an unclear period of time. Recently treated with imatinib. Assessment/Plan Time spent with Patient A total of 20 minutes were spent on this appointment, all of that time face-to- face with the patient in counseling and coordination of care. Discussion with patient included lab results, [diagnosis], treatment options, risks and benefits. Plan for treatment This is a 41 year old man with a long history oc CML chronic phase with partially treated disease based on the chronic intermittent nature of TKI treatment due to a combination of side effects, intercurrent illness, substance abuse and compliance. His recent rise in quantitative PCR for p210 may be attributed tro being off gleleevec for two weeks. He has tried all the TKIs and tolerated gleevec the best; it is surprising and yet encouraging that he seems to continue to respond to gleevec when taken appropriately. To confirm this, he will have quantitative PCR for p210 monthly for the next three months with an exam in three months. at 1102 <Electronically signed by Justino Werner MD> (PLEASE NOTE): This report may have been all or partially generated using a voice recognition software program. While every effort has been made to edit content upon its completion, senior cost analyst errors may occur. Please contact the [facility] Dept[facility] at if there are any questions, or if further clarification is necessitated. - Additional ROS Additional ROS: Review of systems General: Denies fever or night sweats. HEENT no headaches, vision change or dysphagia. Respiratory: No cough or dyspnea. Cardiac: No PND or orthopnea. GI: As above. : Stable. Musculoskeletal: As above. Neurologic: Negative. Results - Labs 10/20/17 13:53 10/20/17 13:53 - Imaging Additional studies: Procedures Biopsy of bone, other bones (07/01/14) Detoxification Services for Substance Abuse Treatment (09/20/16) Excisional debridement of wound, infection, or burn (12/23/13) Injection of tranquilizer (01/01/14) Injection or infusion of other therapeutic or prophylactic substance (01/01/14) Inspection of Lower Intestinal Tract, Via Natural or Artificial Opening Endoscopic (12/23/16) Inspection of Upper Intestinal Tract, Via Natural or Artificial Opening Endoscopic (12/23/16) Other endoscopy of small intestine (08/21/13) Transfusion of Nonautologous Platelets into Peripheral Vein, Percutaneous Approach (12/23/16) Transfusion of Nonautologous Red Blood Cells into Peripheral Vein, Percutaneous Approach (12/23/16) Transfusion of packed cells (07/01/14) Transfusion of platelets (06/10/14) Venous catheterization, not elsewhere classified (07/01/14) Home Medications and Allergies Home Medications Medication Instructions Recorded Confirmed Type Syringes syr #30 10/19/16 Rx insulin lispro [Humalog KwikPen 1 - 12 unit SQ TIDCC #1 ea 03/25/17 Rx Insulin] ondansetron [Zofran ODT] 4 mg SUBLINGUAL Q6HP PRN #30 odt 05/17/17 Rx [place] ea #100 05/24/17 Rx insulin glargine [Lantus Solostar 15 u SQ BID #1 ea 06/23/17 Rx U-100 Insulin] hydrocodone-acetaminophen [[place]] 1 - 2 tab PO Q6HP PRN #5 tab 07/13/17 Rx hydrocortisone acetate [Anusol-HC] 25 mg R BID #14 supp 07/15/17 Rx magnesium citrate 273 ml PO ONCE #1 bot 07/15/17 Rx simethicone [Gas-X Extra Strength] 125 mg PO Q6HP PRN #30 cap 07/15/17 Rx ondansetron [Zofran ODT] 4 mg SUBLINGUAL Q6HP PRN #20 odt 07/26/17 Rx True Metrix test strips #100 each 08/18/17 Rx imatinib [Gleevec] 300 mg PO QDAY #60 tab 10/11/17 Rx docusate sodium [Colace] 100 mg PO QDAY PRN 10/20/17 10/20/17 History Allergies Allergy/AdvReac Type Severity Reaction Status Date / Time Penicillins [PENICILLINS] Allergy Severe Tongue Verified 08/31/17 22:43 swelling, hives adhesive Allergy Unknown PLASTIC Verified 08/31/17 22:43 TAPE latex [LATEX] Allergy Unknown Verified 08/31/17 22:43 Exam - Constitutional positive no acute distress, positive thin, positive cooperative - Routine HEENT Exam Head: Present: normocephalic, atraumatic Eye: Present: EOMI, PERRL, conjunctivae pink. Absent: conjunctival icterus, scleral injection ENT: Present: mucous membranes moist, oropharynx clear - Routine Neck Exam Present: supple. Absent: JVD, lymphadenopathy - Routine Respiratory Exam Present: Clear to auscultation bilaterally. Absent: accessory muscle use, rales , wheezes, crackles - Routine Cardiovascular Exam Present: RRR, S1, S2, murmur. Absent: S3 - Routine Abdominal Exam Present: soft, normoactive bowel sounds. Absent: tenderness, distended, organomegaly Comments: Spleen tip palpable on inspiration. - Routine Extremities Exam Absent: cyanosis, clubbing, edema - Routine Skin Exam Present: intact. Absent: cyanosis, erythema, jaundice - Routine Neurological Exam Present: alert, oriented X3, moving all extremities, normal speech - Routine Psychiatric Exam Present: normal affect, normal thought process, cooperative, good judgment
[2017-10-20 14:29] LABS: Add Manual Diff / Slide Review NO; Basophils Percent Auto 0.7 % (0-2); Eosinophils Percent Auto 1.5 % (2-4); Hematocrit 32.6 % (41-53); Hemoglobin 11.2 g/dL (13.5-17.5); Lymphocytes Percent Auto 33.1 % (25-40); Mean Corpuscular HGB Conc 34.2 % (30-36); Mean Corpuscular Hemoglobin 36.4 PG (26-34); Mean Corpuscular Volume 106.5 fL (80-100); Monocytes Percent Auto 13.9 % (3-14); Neutrophils Absolute Auto 1100 /uL (3000-5900); Neutrophils Percent Auto 50.8 % (50-75); Red Blood Cell Count 3.07 X10^6/uL (4.5-5.9); Red Cell Distribution Width 15.1 % (11.6-14.8); White Blood Cell Count 2.2 X10^3/uL (4.5-11.0)
[2017-10-20 14:31] LABS: Platelet Count 30 X10^3/uL (150-400)
[2017-10-20 14:56] LABS: Anisocytosis 1+; Macrocytosis 1+
[2017-10-20 15:54] VITALS: BP 103/84; PULSE 85; RESP 15; TEMP 36.8; O2SAT 97
--- NOTE | 2017-10-25 15:47 | PC.NURSE ---
Nikole;patients mom called as pt is out of RX and she states they need clarification from us -noted that scipt was re-faxed 10/20 . When I called was told that clarification had been taken care of I did not need to speak to pharmacist and it was working through their system . I reported that pt is out of the med.They stated they would overnight RX
--- NOTE | 2017-11-17 15:26 | ONC.PN ---
Assessment and Plan - Time Spent with Patient IMPRESSION: 1. Chronic myelogenous leukemia, chronic phase per notes. 2. Thrombocytopenia. 3. Upper GI bleed 4. Raeann-Coron[place] tear 5. Coagulopathy 6. History of substance abuse. 7. Diabetes mellitus. 8. Anxiety with panic attacks. 9. Alcoholism. 10. Upper GI bleed, recently hospitalized at [facility]. 11. Nausea and vomiting, improved. I reviewed recent hospital records and lab results with him and his mom at today's visit. He continues to recover from recent upper GI bleed. Has been off imatinib for about 3 weeks he estimates. We discussed treatment options though he says he has tried other TK inhibitors in the past, including Dasatinib but that he tolerated imatinib the best of them. I do not have some of his past treatment records available to review at his appointment today. Additionally, he was scheduled for routine follow-up and will need to return with additional time to review past charts in history. Unclear whether imatinib is the primary cause for his nausea and vomiting given other health issues including ongoing alcohol consumption, anxiety and and other issues noted. He does have odor of alcohol on his breath in clinic today. Ultimately, we will need to get him back on active treatment for his CML lest it progress or accelerate off treatment. I reviewed these concerns as well as potential for resistance to treatment with TK inhibitors. I would recommend follow-up with his other providers before we make a decision to resume treatment given his recent Raeann-Coronado tear and GI bleed. PLAN: 1. Follow-up with Dr. Padilla and Dr. Willinghma as planned. 2. Anticipate resuming imatinib 300 mg daily pending above. 3. Return to clinic in 2 weeks to review treatment history, options and plan. 4. CBC, CMP, LDH prior to the visit. 5. PCR for BCR/ABL every 12 weeks. 6. NOTE: LORAZEPAM SHOULD NOT BE PRESCRIBED BY THIS OFFICE GIVEN MULTIPLE REPORTED ISSUES IN THE PAST ACCORDING TO [facility] CENTER ADMINISTRATIVE STAFF. He will need to follow up with PCP for this if needed. DICTATED BY KIM CAMP MD MEDICAL ONCOLOGY AND HEMATOLOGY PN -Subjective Interval history: HEMATOLOGY/ONCOLOGY PROGRESS NOTE DATE OF SERVICE: November 17, 2017 PATIENT NAME: RADHA MCDOWELL DATE OF : 1975 PCP: IDENTIFICATION: Mr. Mcdowell is a 42-year-old gentleman with CML reportedly diagnosed 11 years ago in [place], [place]. Initially managed by Dr. Maurice and later transitioning here to Dr. Leegr. INTERVAL HISTORY: Mr. Mcdowell is a 42-year-old gentleman with history of CML diagnosed February 2011 according to note from Dr Leger in 2013, however, pt states he was diagnosed in [place], [place] about 11 years ago. Treated previously with imatinib 300 mg daily though this was reportedly held earlier this year when he was admitted for evaluation of rectal bleeding. [facility] endoscopy reportedly did not identify a bleeding source according to the patient. He resumed treatment with imatinib at 300 mg daily. He does report very is symptoms from the medication including decreased appetite, abdominal discomfort, nausea. Also reports frequent emesis which she says is daily. He was recently hospitalized for hematemesis with treatment at [facility] ICU and discharged last week on pantoprazole and 1 month of sucralfate. He feels somewhat better off the imatinib which he last took about 3 weeks ago he estimates. Still with occasional emesis though much less frequent. He says he has tried other TK inhibitors for CML in the past, ?all of them,? and that he tolerates imatinib the past. Has tried multiple antiemetics and says none of them work. His preference is for lorazepam. His mom brings a bag with CBD oil and wonders if that might help. He denies recent fever, night sweats, early satiety or left upper quadrant abdominal pain. No significant bleeding or bruising since his recent hospitalization. He was seen in clinic in July by MILA Trejo and at that time Bcr/ABL 07/21/2017 was 14%. She asked him to resume Gleevec at 300 mg daily which he says he has been taking until he ran out last night. They have contacted the pharmacy for refill. He presents to clinic today accompanied by his mom, Lelo. He notes ongoing symptoms include poor appetite, abdominal discomfort, intermittent nose bleeds, anxiety with panic attacks. Also has diabetes. Followed by Michaela Willingham ONCOLOGY HISTORY: Chronic myelogenous leukemia, chronic phase diagnosed in [place], [place]. Initially treated with imatinib later switching to dasatinib for an unclear period of time. Recently treated with imatinib. Assessment/Plan Time spent with Patient A total of 20 minutes were spent on this appointment, all of that time [id number] with the patient in counseling and coordination of care. Discussion with patient included lab results, [diagnosis], treatment options, risks and benefits. Plan for treatment This is a 41 year old man with a long history oc CML chronic phase with partially treated disease based on the chronic intermittent nature of TKI treatment due to a combination of side effects, intercurrent illness, substance abuse and compliance. His recent rise in quantitative PCR for p210 may be attributed tro being off gleleevec for two weeks. He has tried all the TKIs and tolerated gleevec the best; it is surprising and yet encouraging that he seems to continue to respond to gleevec when taken appropriately. To confirm this, he will have quantitative PCR for p210 monthly for the next three months with an exam in three months. at 1102 <Electronically signed by Justino Werner MD> (PLEASE NOTE): This report may have been all or partially generated using a voice recognition software program. While every effort has been made to edit content upon its completion, mixer machine feeder errors may occur. Please contact the [facility] A[facility] Services Dept. at if there are any questions, or if further clarification is necessitated. - Patient Self-Reported Symptoms SR Constitution: Weight loss/gain, Fatigue/Malaise, Night Sweats SR ears, nose, mouth, throat issues: Nose bleeds SR Cardiovascular issues: Dizzy/lightheaded SR Skin issues: Nail changes SR Gastrointestinal issues: Poor or no appetite, Change in bowel pattern, Nausea, Vomiting, Diarrhea, Constipation, Blood in stool, Abdominal pain SR Genitourinary issues: Frequent urination, Change in stream SR Musculoskeletal issues: Joint pain or swelling, Muscle weakness, Muscle pain or cramps, Back or neck pain, Cold hands or feet, Difficulty walking, Bone pain SR Neuro issues: Headache, Lightheaded/dizzy, Numbness or tingling, Difficulty balancing SR Hematologic issues: Slow healing, Bleeding/bruising SR Endocrine issues: Cold intolerance - Additional ROS Additional ROS: Review of systems: General: No fever or chills reported. HEENT: Recent fall with facial laceration, healing. No recent epistaxis or dysphagia reported. Respiratory no cough or dyspnea. Cardiac: No PND or orthopnea. GI: As above. : No flank pain or hematuria. Musculoskeletal: As above. Neurologic: Stable. Results - Labs 10/20/17 13:53 10/20/17 13:53 Laboratory Last Values WBC 2.2 X10^3/uL (4.5-11.0) L 10/20/17 13:53 RBC 3.07 X10^6/uL (4.5-5.9) L 10/20/17 13:53 Hgb 11.2 g/dL (13.5-17.5) L 10/20/17 13:53 Hct 32.6 % (41-53) L 10/20/17 13:53 MCV 106.5 fL (80-100) H 10/20/17 13:53 MCH 36.4 PG (26-34) H 10/20/17 13:53 MCHC 34.2 % (30-36) 10/20/17 13:53 RDW 15.1 % (11.6-14.8) H 10/20/17 13:53 Plt Count 30 X10^3/uL (150-400) L* 10/20/17 13:53 Neut % (Auto) 50.8 % (50-75) 10/20/17 13:53 Lymph % (Auto) 33.1 % (25-40) 10/20/17 13:53 [place] % (Auto) 13.9 % (3-14) 10/20/17 13:53 Eos % (Auto) 1.5 % (2-4) L 10/20/17 13:53 Baso % (Auto) 0.7 % (0-2) 10/20/17 13:53 Neut # (Auto) 1100 /uL (8610-9447) L 10/20/17 13:53 RBC Morphology Not Reportable 10/20/17 13:53 Anisocytosis 1+ H 10/20/17 13:53 Macrocytosis 1+ H 10/20/17 13:53 Sodium 141 mmol/L (137-145) 10/20/17 13:53 Potassium 4.2 mmol/L (3.4-5.1) 10/20/17 13:53 Chloride 101 mmol/L (98-107) 10/20/17 13:53 Carbon Dioxide 22 mmol/L (22-32) 10/20/17 13:53 BUN 9 mg/dL (9-20) 10/20/17 13:53 Creatinine 0.90 mg/dL (0.66-1.25) 10/20/17 13:53 Estimated GFR > 60.0 mL/min (>60) 10/20/17 13:53 BUN/Creatinine Ratio 10.0 (6-22) 10/20/17 13:53 Glucose 314 mg/dL (70-100) H 10/20/17 13:53 Calcium 8.4 mg/dL (8.4-10.2) 10/20/17 13:53 Total Bilirubin 1.3 mg/dL (0.2-1.3) 10/20/17 13:53 AST 131 IU/L (17-59) H 10/20/17 13:53 ALT 54 IU/L (21-72) 10/20/17 13:53 Alkaline Phosphatase 111 U/L (38-126) 10/20/17 13:53 Total Protein 7.1 g/dL (6.3-8.2) 10/20/17 13:53 Albumin 4.4 g/dL (3.5-5.0) 10/20/17 13:53 Globulin 2.7 g/dL (1.7-4.1) 10/20/17 13:53 Albumin/Globulin Ratio 1.6 (1.0-2.8) 10/20/17 13:53 - Imaging Additional studies: Procedures Biopsy of bone, other bones (07/01/14) Detoxification Services for Substance Abuse Treatment (09/20/16) Excisional debridement of wound, infection, or burn (12/23/13) Injection of tranquilizer (01/01/14) Injection or infusion of other therapeutic or prophylactic substance (01/01/14) Other endoscopy of small intestine (08/21/13) Transfusion of Nonautologous Platelets into Peripheral Vein, Percutaneous Approach (09/20/16) Transfusion of packed cells (07/01/14) Transfusion of platelets (06/10/14) Venous catheterization, not elsewhere classified (07/01/14) Home Medications and Allergies Home Medications Medication Instructions Recorded Confirmed Type insulin lispro [Humalog KwikPen 1 - 12 unit SQ TIDCC #1 ea 03/25/17 11/10/17 Rx Insulin] hydrocortisone acetate [Anusol-HC] 25 mg R BID #14 supp 07/15/17 11/10/17 Rx True Metrix test strips #100 each 08/18/17 11/10/17 Rx imatinib [Gleevec] 300 mg PO QDAY #60 tab 10/11/17 11/10/17 Rx docusate sodium [Colace] 100 mg PO QDAY PRN 10/20/17 11/10/17 History [place] 1 ea MISCELLANEOUS DIRECTED 11/10/17 11/10/17 History Syringes 1 syr MISCELLANEOUS DIRECTED 11/10/17 11/10/17 History insulin glargine [Lantus Solostar 15 u SQ BEDTIME 11/10/17 11/10/17 History U-100 Insulin] ondansetron [Zofran ODT] 4 mg SUBLINGUAL Q6HP PRN 11/17/17 11/17/17 History Allergies Allergy/AdvReac Type Severity Reaction Status Date / Time Penicillins [PENICILLINS] Allergy Severe Tongue Verified 08/31/17 22:43 swelling, hives adhesive Allergy Unknown PLASTIC Verified 08/31/17 22:43 TAPE latex [LATEX] Allergy Unknown Verified 08/31/17 22:43 Exam Vital signs: Last Vital Signs Temp 98.2 F 10/20/17 15:54 Pulse 85 10/20/17 15:54 Resp 15 10/20/17 15:54 BP 103/84 H 10/20/17 15:54 Pulse Ox 97 10/20/17 15:54 - Constitutional positive no acute distress, positive thin, positive chronically ill appearing, positive cooperative - Routine HEENT Exam Head: Present: normocephalic, abrasion, laceration Eye: Present: EOMI, PERRL, periorbital ecchymosis, periorbital swelling. Absent: conjunctival icterus, scleral injection, conjunctivae pink ENT: Present: mucous membranes moist, oropharynx clear - Routine Neck Exam Absent: JVD, lymphadenopathy - Routine Respiratory Exam Present: Clear to auscultation bilaterally. Absent: accessory muscle use, rales, rhonchi, wheezes - Routine Cardiovascular Exam Present: RRR, S1, S2. Absent: murmur, S3 - Routine Abdominal Exam Present: soft, normoactive bowel sounds. Absent: tenderness, distended Palpation/Percussion: Absent: splenomegaly - Routine Extremities Exam Absent: cyanosis, clubbing, edema - Routine Skin Exam Absent: cyanosis, erythema, petechiae, jaundice, rash - Routine Neurological Exam Present: alert, oriented X3, normal speech - Routine Psychiatric Exam Present: normal affect, normal thought process, cooperative
[2017-11-17 15:35] VITALS: BP 133/89; PULSE 97; RESP 17; TEMP 36.8; O2SAT 99
--- NOTE | 2017-11-17 15:53 | P.PNONC_ITS ---
Assessment and Plan - Time Spent with Patient IMPRESSION: 1. Chronic myelogenous leukemia, chronic phase per notes. 2. Thrombocytopenia. 3. Upper GI bleed 4. Raeann-Coron[place] tear 5. Coagulopathy 6. History of substance abuse. 7. Diabetes mellitus. 8. Anxiety with panic attacks. 9. Alcoholism. 10. Upper GI bleed, recently hospitalized at [facility]. 11. Nausea and vomiting, improved. I reviewed recent hospital records and lab results with him and his mom at today 's visit. He continues to recover from recent upper GI bleed. Has been off imatinib for about 3 weeks he estimates. We discussed treatment options though he says he has tried other TK inhibitors in the past, including Dasatinib but that he tolerated imatinib the best of them. I do not have some of his past treatment records available to review at his appointment today. Additionally, he was scheduled for routine follow-up and will need to return with additional time to review past charts in history. Unclear whether imatinib is the primary cause for his nausea and vomiting given other health issues including ongoing alcohol consumption, anxiety and and other issues noted. He does have odor of alcohol on his breath in clinic today. Ultimately, we will need to get him back on active treatment for his CML lest it progress or accelerate off treatment. I reviewed these concerns as well as potential for resistance to treatment with TK inhibitors. I would recommend follow-up with his other providers before we make a decision to resume treatment given his recent Raeann -Coronado tear and GI bleed. PLAN: 1. Follow-up with Dr. Padilla and Dr. Willingham as planned. 2. Anticipate resuming imatinib 300 mg daily pending above. 3. Return to clinic in 2 weeks to review treatment history, options and plan. 4. CBC, CMP, LDH prior to the visit. 5. PCR for BCR/ABL every 12 weeks. 6. NOTE: LORAZEPAM SHOULD NOT BE PRESCRIBED BY THIS OFFICE GIVEN MULTIPLE REPORTED ISSUES IN THE PAST ACCORDING TO [facility]ER CENTER ADMINISTRATIVE STAFF. He will need to follow up with PCP for this if needed. DICTATED BY KIM CAMP MD MEDICAL ONCOLOGY AND HEMATOLOGY PN -Subjective Interval history: HEMATOLOGY/ONCOLOGY PROGRESS NOTE DATE OF SERVICE: November 17, 2017 PATIENT NAME: RADHA MCDOWELL DATE OF : 1975 PCP: IDENTIFICATION: Mr. Mcdowell is a 42-year-old gentleman with CML reportedly diagnosed 11 years ago in [place], [place]. Initially managed by Dr. Maurice and later transitioning here to Dr. Leger. INTERVAL HISTORY: Mr. Mcdowell is a 42-year-old gentleman with history of CML diagnosed February 2011 according to note from Dr Leger in 2013, however, pt states he was diagnosed in [place], [place] about 11 years ago. Treated previously with imatinib 300 mg daily though this was reportedly held earlier this year when he was admitted for evaluation of rectal bleeding. [facility] endoscopy reportedly did not identify a bleeding source according to the patient. He resumed treatment with imatinib at 300 mg daily. He does report very is symptoms from the medication including decreased appetite, abdominal discomfort, nausea. Also reports frequent emesis which she says is daily. He was recently hospitalized for hematemesis with treatment at [facility] ICU and discharged last week on pantoprazole and 1 month of sucralfate. He feels somewhat better off the imatinib which he last took about 3 weeks ago he estimates. Still with occasional emesis though much less frequent. He says he has tried other TK inhibitors for CML in the past, ?all of them,? and that he tolerates imatinib the past. Has tried multiple antiemetics and says none of them work. His preference is for lorazepam. His mom brings a bag with CBD oil and wonders if that might help. He denies recent fever, night sweats, early satiety or left upper quadrant abdominal pain. No significant bleeding or bruising since his recent hospitalization. He was seen in clinic in July by MILA Trejo and at that time Bcr/ABL 07/21/2017 was 14%. She asked him to resume Gleevec at 300 mg daily which he says he has been taking until he ran out last night. They have contacted the pharmacy for refill. He presents to clinic today accompanied by his mom, Lelo. He notes ongoing symptoms include poor appetite, abdominal discomfort, intermittent nose bleeds, anxiety with panic attacks. Also has diabetes. Followed by Michaela Willingham ONCOLOGY HISTORY: Chronic myelogenous leukemia, chronic phase diagnosed in [place], [place]. Initially treated with imatinib later switching to dasatinib for an unclear period of time. Recently treated with imatinib. Assessment/Plan Time spent with Patient A total of 20 minutes were spent on this appointment, all of that time face-to- face with the patient in counseling and coordination of care. Discussion with patient included lab results, [diagnosis], treatment options, risks and benefits. Plan for treatment This is a 41 year old man with a long history oc CML chronic phase with partially treated disease based on the chronic intermittent nature of TKI treatment due to a combination of side effects, intercurrent illness, substance abuse and compliance. His recent rise in quantitative PCR for p210 may be attributed tro being off gleleevec for two weeks. He has tried all the TKIs and tolerated gleevec the best; it is surprising and yet encouraging that he seems to continue to respond to gleevec when taken appropriately. To confirm this, he will have quantitative PCR for p210 monthly for the next three months with an exam in three months. at 1102 <Electronically signed by Justino Werner MD> (PLEASE NOTE): This report may have been all or partially generated using a voice recognition software program. While every effort has been made to edit content upon its completion, customer services manager errors may occur. Please contact the [facility] Biostatistician Services Dept. at if there are any questions, or if further clarification is necessitated. - Patient Self-Reported Symptoms SR Constitution: Weight loss/gain, Fatigue/Malaise, Night Sweats SR ears, nose, mouth, throat issues: Nose bleeds SR Cardiovascular issues: Dizzy/lightheaded SR Skin issues: Nail changes SR Gastrointestinal issues: Poor or no appetite, Change in bowel pattern, Nausea , Vomiting, Diarrhea, Constipation, Blood in stool, Abdominal pain SR Genitourinary issues: Frequent urination, Change in stream SR Musculoskeletal issues: Joint pain or swelling, Muscle weakness, Muscle pain or cramps, Back or neck pain, Cold hands or feet, Difficulty walking, Bone pain SR Neuro issues: Headache, Lightheaded/dizzy, Numbness or tingling, Difficulty balancing SR Hematologic issues: Slow healing, Bleeding/bruising SR Endocrine issues: Cold intolerance - Additional ROS Additional ROS: Review of systems: General: No fever or chills reported. HEENT: Recent fall with facial laceration, healing. No recent epistaxis or dysphagia reported. Respiratory no cough or dyspnea. Cardiac: No PND or orthopnea. GI: As above. : No flank pain or hematuria. Musculoskeletal: As above. Neurologic: Stable. Results - Labs 10/20/17 13:53 10/20/17 13:53 Laboratory Last Values WBC 2.2 X10^3/uL (4.5-11.0) L 10/20/17 13:53 RBC 3.07 X10^6/uL (4.5-5.9) L 10/20/17 13:53 Hgb 11.2 g/dL (13.5-17.5) L 10/20/17 13:53 Hct 32.6 % (41-53) L 10/20/17 13:53 MCV 106.5 fL (80-100) H 10/20/17 13:53 MCH 36.4 PG (26-34) H 10/20/17 13:53 MCHC 34.2 % (30-36) 10/20/17 13:53 RDW 15.1 % (11.6-14.8) H 10/20/17 13:53 Plt Count 30 X10^3/uL (150-400) L* 10/20/17 13:53 Neut % (Auto) 50.8 % (50-75) 10/20/17 13:53 Lymph % (Auto) 33.1 % (25-40) 10/20/17 13:53 [place] % (Auto) 13.9 % (3-14) 10/20/17 13:53 Eos % (Auto) 1.5 % (2-4) L 10/20/17 13:53 Baso % (Auto) 0.7 % (0-2) 10/20/17 13:53 Neut # (Auto) 1100 /uL (4747-8136) L 10/20/17 13:53 RBC Morphology Not Reportable 10/20/17 13:53 Anisocytosis 1+ H 10/20/17 13:53 Macrocytosis 1+ H 10/20/17 13:53 Sodium 141 mmol/L (137-145) 10/20/17 13:53 Potassium 4.2 mmol/L (3.4-5.1) 10/20/17 13:53 Chloride 101 mmol/L (98-107) 10/20/17 13:53 Carbon Dioxide 22 mmol/L (22-32) 10/20/17 13:53 BUN 9 mg/dL (9-20) 10/20/17 13:53 Creatinine 0.90 mg/dL (0.66-1.25) 10/20/17 13:53 Estimated GFR > 60.0 mL/min (>60) 10/20/17 13:53 BUN/Creatinine Ratio 10.0 (6-22) 10/20/17 13:53 Glucose 314 mg/dL (70-100) H 10/20/17 13:53 Calcium 8.4 mg/dL (8.4-10.2) 10/20/17 13:53 Total Bilirubin 1.3 mg/dL (0.2-1.3) 10/20/17 13:53 AST 131 IU/L (17-59) H 10/20/17 13:53 ALT 54 IU/L (21-72) 10/20/17 13:53 Alkaline Phosphatase 111 U/L (38-126) 10/20/17 13:53 Total Protein 7.1 g/dL (6.3-8.2) 10/20/17 13:53 Albumin 4.4 g/dL (3.5-5.0) 10/20/17 13:53 Globulin 2.7 g/dL (1.7-4.1) 10/20/17 13:53 Albumin/Globulin Ratio 1.6 (1.0-2.8) 10/20/17 13:53 - Imaging Additional studies: Procedures Biopsy of bone, other bones (07/01/14) Detoxification Services for Substance Abuse Treatment (09/20/16) Excisional debridement of wound, infection, or burn (12/23/13) Injection of tranquilizer (01/01/14) Injection or infusion of other therapeutic or prophylactic substance (01/01/14) Other endoscopy of small intestine (08/21/13) Transfusion of Nonautologous Platelets into Peripheral Vein, Percutaneous Approach (09/20/16) Transfusion of packed cells (07/01/14) Transfusion of platelets (06/10/14) Venous catheterization, not elsewhere classified (07/01/14) Home Medications and Allergies Home Medications Medication Instructions Recorded Confirmed Type insulin lispro [Humalog KwikPen 1 - 12 unit SQ TIDCC #1 ea 03/25/17 11/10/17 Rx Insulin] hydrocortisone acetate [Anusol-HC] 25 mg R BID #14 supp 07/15/17 11/10/17 Rx True Metrix test strips #100 each 08/18/17 11/10/17 Rx imatinib [Gleevec] 300 mg PO QDAY #60 tab 10/11/17 11/10/17 Rx docusate sodium [Colace] 100 mg PO QDAY PRN 10/20/17 11/10/17 History [place] 1 ea MISCELLANEOUS DIRECTED 11/10/17 11/10/17 History Syringes 1 syr MISCELLANEOUS DIRECTED 11/10/17 11/10/17 History insulin glargine [Lantus Solostar 15 u SQ BEDTIME 11/10/17 11/10/17 History U-100 Insulin] ondansetron [Zofran ODT] 4 mg SUBLINGUAL Q6HP PRN 11/17/17 11/17/17 History Allergies Allergy/AdvReac Type Severity Reaction Status Date / Time Penicillins [PENICILLINS] Allergy Severe Tongue Verified 08/31/17 22:43 swelling, hives adhesive Allergy Unknown PLASTIC Verified 08/31/17 22:43 TAPE latex [LATEX] Allergy Unknown Verified 08/31/17 22:43 Exam Vital signs: Last Vital Signs Temp 98.2 F 10/20/17 15:54 Pulse 85 10/20/17 15:54 Resp 15 10/20/17 15:54 BP 103/84 H 10/20/17 15:54 Pulse Ox 97 10/20/17 15:54 - Constitutional positive no acute distress, positive thin, positive chronically ill appearing, positive cooperative - Routine HEENT Exam Head: Present: normocephalic, abrasion, laceration Eye: Present: EOMI, PERRL, periorbital ecchymosis, periorbital swelling. Absent : conjunctival icterus, scleral injection, conjunctivae pink ENT: Present: mucous membranes moist, oropharynx clear - Routine Neck Exam Absent: JVD, lymphadenopathy - Routine Respiratory Exam Present: Clear to auscultation bilaterally. Absent: accessory muscle use, rales , rhonchi, wheezes - Routine Cardiovascular Exam Present: RRR, S1, S2. Absent: murmur, S3 - Routine Abdominal Exam Present: soft, normoactive bowel sounds. Absent: tenderness, distended Palpation/Percussion: Absent: splenomegaly - Routine Extremities Exam Absent: cyanosis, clubbing, edema - Routine Skin Exam Absent: cyanosis, erythema, petechiae, jaundice, rash - Routine Neurological Exam Present: alert, oriented X3, normal speech - Routine Psychiatric Exam Present: normal affect, normal thought process, cooperative
--- NOTE | 2018-01-04 16:39 | ONC.PN ---
PN -Subjective Interval history: HEMATOLOGY/ONCOLOGY PROGRESS NOTE DATE OF SERVICE: November 17, 2017 PATIENT NAME: RADHA MCDOWELL DATE OF : 1975 PCP: IDENTIFICATION: Mr. Mcdowell is a 42-year-old gentleman with CML reportedly diagnosed 11 years ago in [place], [place]. Initially managed by Dr. Maurice and later transitioning here to Dr. Leger. INTERVAL HISTORY: Mr. Mcdowell is a 42-year-old gentleman with history of CML diagnosed February 2011 according to note from Dr Leger in 2013, however, pt states he was diagnosed in [place], [place] about 11 years ago. He has been on several different tyrosine kinase inhibitors over the years but has most recently been on Gleevec 300 mg daily. He tells me that he has been taking this regularly. He does have some side effects with that. He has diarrhea several times daily but finds that he gets constipated if he takes Imodium so he has not been using it. He has not been bothered by swelling in his feet or ankles. He denies any shortness of breath. He does have some nausea and vomiting. He denies any fevers chills or sweats. Appetite has been fair. His weight has been stable. He was hospitalized several months ago with GI bleeding and required transfusions. He has had a chronically low platelet count. His most recent BCR/ABL transcripts is from October 2017 it was 7%. That was down from 14% in July. It appears that he had been off of his Gleevec around that time. His past medical history is notable for history of diabetes, substance abuse and recurrent infections including diskitis and osteomyelitis. He has a history of MRSA pneumonia. - Patient Self-Reported Symptoms SR Constitution: Weight loss/gain, Fatigue/Malaise, Night Sweats SR ears, nose, mouth, throat issues: Nose bleeds SR respiratory issues: Difficulty breathing SR Cardiovascular issues: Dizzy/lightheaded SR Skin issues: Nail changes SR Gastrointestinal issues: Poor or no appetite, Change in bowel pattern, Nausea, Vomiting, Diarrhea, Constipation, Blood in stool, Abdominal pain SR Genitourinary issues: Frequent urination, Change in stream SR Musculoskeletal issues: Joint pain or swelling, Muscle weakness, Muscle pain or cramps, Back or neck pain, Cold hands or feet, Difficulty walking, Bone pain SR Neuro issues: Headache, Lightheaded/dizzy, Numbness or tingling, Difficulty balancing SR Hematologic issues: Slow healing, Bleeding/bruising SR Endocrine issues: Cold intolerance Home Medications and Allergies Home Medications Medication Instructions Recorded Confirmed Type insulin lispro [Humalog KwikPen 1 - 12 unit SQ TIDCC #1 ea 03/25/17 12/16/17 Rx Insulin] hydrocortisone acetate [Anusol-HC] 25 mg R BID #14 supp 07/15/17 12/16/17 Rx True Metrix test strips #100 each 08/18/17 12/16/17 Rx docusate sodium [Colace] 100 mg PO QDAY PRN 10/20/17 12/16/17 History [place] 1 ea MISCELLANEOUS DIRECTED 11/10/17 12/16/17 History Syringes 1 syr MISCELLANEOUS DIRECTED 11/10/17 12/16/17 History insulin glargine [Lantus Solostar 15 u SQ BEDTIME 11/10/17 12/16/17 History U-100 Insulin] ondansetron [Zofran ODT] 4 mg SUBLINGUAL Q6HP PRN 11/17/17 12/16/17 History imatinib [Gleevec] 300 mg PO QPM 12/16/17 12/16/17 History lorazepam 1 tab PO TID PRN 12/16/17 12/16/17 History pantoprazole 40 mg PO DAILY 12/16/17 12/16/17 History sucralfate [Carafate] 10 ml PO QID 12/16/17 12/16/17 History Allergies Allergy/AdvReac Type Severity Reaction Status Date / Time Penicillins [PENICILLINS] Allergy Severe Tongue Verified 12/21/17 13:25 swelling, hives adhesive Allergy Unknown PLASTIC Verified 12/21/17 13:25 TAPE latex [LATEX] Allergy Unknown Verified 12/21/17 13:25 Exam Vital signs: Last Vital Signs Temp 98.3 F 11/17/17 15:35 Pulse 97 H 11/17/17 15:35 Resp 17 11/17/17 15:35 BP 133/89 H 11/17/17 15:35 Pulse Ox 99 11/17/17 15:35 - Constitutional positive no acute distress, positive average body habitus - Routine HEENT Exam Head: Present: normocephalic, atraumatic Eye: Present: EOMI, PERRL. Absent: conjunctival icterus, scleral injection ENT: Present: mucous membranes moist, oropharynx clear - Routine Neck Exam Present: supple. Absent: lymphadenopathy, thyromegaly - Routine Respiratory Exam Present: Clear to auscultation bilaterally. Absent: rales, wheezes - Routine Cardiovascular Exam Present: RRR, S1, S2. Absent: murmur - Routine Abdominal Exam Present: soft, normoactive bowel sounds. Absent: tenderness Palpation/Percussion: Absent: splenomegaly - Routine Extremities Exam Absent: cyanosis, clubbing, edema - Routine Back/Spine Exam Back/Spine: Absent: paraspinal tenderness, vertebral tenderness - Routine Skin Exam Present: intact. Absent: petechiae, rash - Routine Neurological Exam Present: alert, oriented X3 - Routine Psychiatric Exam Present: normal affect, normal thought process Results - Labs Laboratory Last Values WBC 2.2 X10^3/uL (4.5-11.0) L 10/20/17 13:53 RBC 3.07 X10^6/uL (4.5-5.9) L 10/20/17 13:53 Hgb 11.2 g/dL (13.5-17.5) L 10/20/17 13:53 Hct 32.6 % (41-53) L 10/20/17 13:53 MCV 106.5 fL (80-100) H 10/20/17 13:53 MCH 36.4 PG (26-34) H 10/20/17 13:53 MCHC 34.2 % (30-36) 10/20/17 13:53 RDW 15.1 % (11.6-14.8) H 10/20/17 13:53 Plt Count 30 X10^3/uL (150-400) L* 10/20/17 13:53 Neut % (Auto) 50.8 % (50-75) 10/20/17 13:53 Lymph % (Auto) 33.1 % (25-40) 10/20/17 13:53 [place] % (Auto) 13.9 % (3-14) 10/20/17 13:53 Eos % (Auto) 1.5 % (2-4) L 10/20/17 13:53 Baso % (Auto) 0.7 % (0-2) 10/20/17 13:53 Neut # (Auto) 1100 /uL (1703-1646) L 10/20/17 13:53 RBC Morphology Not Reportable 10/20/17 13:53 Anisocytosis 1+ H 10/20/17 13:53 Macrocytosis 1+ H 10/20/17 13:53 Sodium 141 mmol/L (137-145) 10/20/17 13:53 Potassium 4.2 mmol/L (3.4-5.1) 10/20/17 13:53 Chloride 101 mmol/L (98-107) 10/20/17 13:53 Carbon Dioxide 22 mmol/L (22-32) 10/20/17 13:53 BUN 9 mg/dL (9-20) 10/20/17 13:53 Creatinine 0.90 mg/dL (0.66-1.25) 10/20/17 13:53 Estimated GFR > 60.0 mL/min (>60) 10/20/17 13:53 BUN/Creatinine Ratio 10.0 (6-22) 10/20/17 13:53 Glucose 314 mg/dL (70-100) H 10/20/17 13:53 Calcium 8.4 mg/dL (8.4-10.2) 10/20/17 13:53 Total Bilirubin 1.3 mg/dL (0.2-1.3) 10/20/17 13:53 AST 131 IU/L (17-59) H 10/20/17 13:53 ALT 54 IU/L (21-72) 10/20/17 13:53 Alkaline Phosphatase 111 U/L (38-126) 10/20/17 13:53 Total Protein 7.1 g/dL (6.3-8.2) 10/20/17 13:53 Albumin 4.4 g/dL (3.5-5.0) 10/20/17 13:53 Globulin 2.7 g/dL (1.7-4.1) 10/20/17 13:53 Albumin/Globulin Ratio 1.6 (1.0-2.8) 10/20/17 13:53 - Imaging Additional studies: Procedures Biopsy of bone, other bones (07/01/14) Detoxification Services for Substance Abuse Treatment (09/20/16) Excisional debridement of wound, infection, or burn (12/23/13) Injection of tranquilizer (01/01/14) Injection or infusion of other therapeutic or prophylactic substance (01/01/14) Other endoscopy of small intestine (08/21/13) Transfusion of Nonautologous Platelets into Peripheral Vein, Percutaneous Approach (09/20/16) Transfusion of packed cells (07/01/14) Transfusion of platelets (06/10/14) Venous catheterization, not elsewhere classified (07/01/14) Assessment and Plan (1) CML (chronic myelocytic leukemia) Problem details: 42-year-old man with longstanding history of CML. He will continue on Gleevec at 300 mg daily. I did stressed to him the importance of continuing it on and staying compliant with the medication. It appears that he really has never had undetectable or even consistently less than 1% on his bcr/ABL transcripts. He certainly could take some Imodium if the diarrhea is bothersome to him but he is not interested. He will continue with his current regimen and return to clinic in about 3 months for follow-up. He will be due for another PCR at that time. Current visit: No Status: Acute
[2018-01-05 08:37] VITALS: BP 122/90; PULSE 85; RESP 17; TEMP 36.8; O2SAT 96
[2018-04-06 15:19] VITALS: BP 139/88; PULSE 100; RESP 20; TEMP 36.9; O2SAT 98
--- NOTE | 2018-04-06 15:38 | P.PNONC_ITS ---
PN -Subjective Interval history: HEMATOLOGY/ONCOLOGY PROGRESS NOTE DATE OF SERVICE: November 17, 2017 PATIENT NAME: RADHA MCDOWELL DATE OF : 1975 PCP: IDENTIFICATION: Mr. Mcdowell is a 42-year-old gentleman with CML reportedly diagnosed 11 years ago in [place], [place]. Initially managed by Dr. Maurice and later transitioning here to Dr. Leger. INTERVAL HISTORY: Mr. Mcdowell is a 42-year-old gentleman with history of CML diagnosed February 2011 according to note from Dr Leger in 2013, however, pt states he was diagnosed in [place], [place] about 11 years ago. He has been on several different tyrosine kinase inhibitors over the years but has most recently been on Gleevec 300 mg daily. Since his last visit here, he has been bothered by ongoing shoulder pain that began shortly after getting a flu shot. He is seen by his primary physician and referred to physical therapy but does not have an appointment there until April. He continues on Gleevec 300 mg daily. He has been fairly regular in taking it although he thinks he probably misses on average about 1 dose a week. Has had some trouble with nausea and vomiting. His appetite has been low. He has occasional diarrhea. He has not noted any swelling in the feet or ankles. He does have various musculoskeletal complaints but it does not sound like cramping. He does have occasional fevers and chills. He has noted some shortness of breath as well as occasional cough. He has had some episodes of epistaxis but denies any blood in the urine or stool. He denies any other changes in his health. His past medical history is notable for history of diabetes, substance abuse and recurrent infections including diskitis and osteomyelitis. He has a history of MRSA pneumonia. - Patient Self-Reported Symptoms SR Constitution: Fatigue/Malaise, Night Sweats SR ears, nose, mouth, throat issues: Ears ringing, Cough, Difficulty swallowing , Nose bleeds, Changes in taste SR respiratory issues: Cough SR Cardiovascular issues: Dizzy/lightheaded SR Skin issues: Nail changes SR Gastrointestinal issues: Poor or no appetite, Change in bowel pattern, Nausea , Vomiting SR Genitourinary issues: Frequent urination, Burning/painful urination, Change in stream, Incontinence SR Musculoskeletal issues: Joint pain or swelling, Muscle weakness, Muscle pain or cramps, Back or neck pain, Cold hands or feet, Bone pain SR Neuro issues: Headache, Numbness or tingling SR Hematologic issues: Slow healing, Bleeding/bruising SR Endocrine issues: Hot flashes Home Medications and Allergies Home Medications Medication Instructions Recorded Confirmed Type insulin lispro [Humalog KwikPen 1 - 12 unit SQ TIDCC #1 ea 03/25/17 04/06/18 Rx Insulin] [place] 1 ea MISCELLANEOUS DIRECTED 11/10/17 04/06/18 History Syringes 1 syr MISCELLANEOUS DIRECTED 11/10/17 04/06/18 History imatinib [Gleevec] 300 mg PO QPM 12/16/17 04/06/18 History escitalopram oxalate 10 mg PO DAILY #30 tab 01/22/18 04/06/18 Rx chlordiazepoxide 25 mg capsule 25 mg PO ONCE #30 cap 01/31/18 04/06/18 Rx pantoprazole 40 mg tablet,delayed 40 mg PO BID #60 tab 01/31/18 02/25/18 Rx release cyclobenzaprine 20 mg PO Q8H PRN #20 tab 02/21/18 04/06/18 Rx insulin glargine (U-100) 100 20 unit SUBCUT BID #15 ml 03/01/18 04/06/18 Rx unit/mL (3 mL) subcutaneous pen [facility] 04/06/18 History True Metrix test strips 0 .ROUTE .MEDSUPPLY 04/06/18 History Allergies Allergy/AdvReac Type Severity Reaction Status Date / Time Penicillins [PENICILLINS] Allergy Severe Tongue Verified 02/25/18 13:47 swelling, hives adhesive Allergy Unknown PLASTIC Verified 02/25/18 13:47 TAPE latex [LATEX] Allergy Unknown Verified 02/25/18 13:47 Exam - Constitutional positive no acute distress, positive average body habitus - Routine HEENT Exam Head: Present: normocephalic, atraumatic Eye: Present: EOMI, PERRL. Absent: conjunctival icterus, scleral injection ENT: Present: mucous membranes moist, oropharynx clear - Routine Neck Exam Present: supple. Absent: lymphadenopathy, thyromegaly - Routine Respiratory Exam Present: Clear to auscultation bilaterally. Absent: rales, wheezes - Routine Cardiovascular Exam Present: RRR, S1, S2. Absent: murmur - Routine Abdominal Exam Present: soft, normoactive bowel sounds. Absent: tenderness, organomegaly, mass - Routine Extremities Exam Absent: cyanosis, clubbing, edema - Routine Skin Exam Present: intact. Absent: petechiae, rash - Routine Neurological Exam Present: alert, oriented X3 - Routine Psychiatric Exam Present: normal affect, normal thought process Results - Labs Laboratory Last Values WBC 2.2 X10^3/uL (4.5-11.0) L 10/20/17 13:53 RBC 3.07 X10^6/uL (4.5-5.9) L 10/20/17 13:53 Hgb 11.2 g/dL (13.5-17.5) L 10/20/17 13:53 Hct 32.6 % (41-53) L 10/20/17 13:53 MCV 106.5 fL (80-100) H 10/20/17 13:53 MCH 36.4 PG (26-34) H 10/20/17 13:53 MCHC 34.2 % (30-36) 10/20/17 13:53 RDW 15.1 % (11.6-14.8) H 10/20/17 13:53 Plt Count 30 X10^3/uL (150-400) L* 10/20/17 13:53 Neut % (Auto) 50.8 % (50-75) 10/20/17 13:53 Lymph % (Auto) 33.1 % (25-40) 10/20/17 13:53 [place] % (Auto) 13.9 % (3-14) 10/20/17 13:53 Eos % (Auto) 1.5 % (2-4) L 10/20/17 13:53 Baso % (Auto) 0.7 % (0-2) 10/20/17 13:53 Neut # (Auto) 1100 /uL (5684-8710) L 10/20/17 13:53 RBC Morphology Not Reportable 10/20/17 13:53 Anisocytosis 1+ H 10/20/17 13:53 Macrocytosis 1+ H 10/20/17 13:53 Sodium 141 mmol/L (137-145) 10/20/17 13:53 Potassium 4.2 mmol/L (3.4-5.1) 10/20/17 13:53 Chloride 101 mmol/L (98-107) 10/20/17 13:53 Carbon Dioxide 22 mmol/L (22-32) 10/20/17 13:53 BUN 9 mg/dL (9-20) 10/20/17 13:53 Creatinine 0.90 mg/dL (0.66-1.25) 10/20/17 13:53 Estimated GFR > 60.0 mL/min (>60) 10/20/17 13:53 BUN/Creatinine Ratio 10.0 (6-22) 10/20/17 13:53 Glucose 314 mg/dL (70-100) H 10/20/17 13:53 Calcium 8.4 mg/dL (8.4-10.2) 10/20/17 13:53 Total Bilirubin 1.3 mg/dL (0.2-1.3) 10/20/17 13:53 AST 131 IU/L (17-59) H 10/20/17 13:53 ALT 54 IU/L (21-72) 10/20/17 13:53 Alkaline Phosphatase 111 U/L (38-126) 10/20/17 13:53 Total Protein 7.1 g/dL (6.3-8.2) 10/20/17 13:53 Albumin 4.4 g/dL (3.5-5.0) 10/20/17 13:53 Globulin 2.7 g/dL (1.7-4.1) 10/20/17 13:53 Albumin/Globulin Ratio 1.6 (1.0-2.8) 10/20/17 13:53 - Imaging Additional studies: Procedures Biopsy of bone, other bones (07/01/14) Detoxification Services for Substance Abuse Treatment (09/20/16) Excisional debridement of wound, infection, or burn (12/23/13) Injection of tranquilizer (01/01/14) Injection or infusion of other therapeutic or prophylactic substance (01/01/14) Other endoscopy of small intestine (08/21/13) Transfusion of Nonautologous Platelets into Peripheral Vein, Percutaneous Approach (09/20/16) Transfusion of packed cells (07/01/14) Transfusion of platelets (06/10/14) Venous catheterization, not elsewhere classified (07/01/14) Assessment and Plan (1) CML (chronic myelocytic leukemia) Problem details: 42-year-old man with longstanding history of CML. He will continue on Gleevec at 300 mg daily. His CBC is stable with a white count of 3.2 hematocrit 35 [place] [address]. His BCR-ABL transcripts are up slightly at 12%. This is higher than his previous visit. We talked about the potential strategies. We could potentially try and increase the dose of Gleevec or switch to a different inhibitor such as sprycel or tasigna. He has tried each of these approaches in the past and been poorly tolerant. I think it is probably better to keep him on a medication which she is tolerating even if it is not inducing a deep molecular remission then to try and switch to medication which she may not tolerate it may not take. He will continue with his current regimen for now and then return to clinic in about 3 months for follow-up. Current visit: No Status: Acute
[2018-06-27 14:33] LABS: Add Manual Diff / Slide Review NO; Basophils Absolute Auto 100 /uL (0-100); Basophils Percent Auto 1.2 % (0-2); Eosinophils Absolute Auto 100 /uL (0-450); Eosinophils Percent Auto 2.6 % (2-4); Hematocrit 40.9 % (41-53); Hemoglobin 13.4 g/dL (13.5-17.5); Lymphocytes Absolute Auto 900 /uL (1100-4500); Lymphocytes Percent Auto 16.1 % (25-40); Mean Corpuscular HGB Conc 32.6 % (30-36); Mean Corpuscular Hemoglobin 31.1 PG (26-34); Mean Corpuscular Volume 95.4 fL (80-100); Monocytes Absolute Auto 400 /uL (0-900); Monocytes Percent Auto 7.8 % (3-14); Neutrophils Absolute Auto 4000 /uL (1500-7000); Neutrophils Percent Auto 72.3 % (50-75); Platelet Count 93 X10^3/uL (150-400); Red Blood Cell Count 4.29 X10^6/uL (4.5-5.9); White Blood Cell Count 5.5 X10^3/uL (4.5-11.0)
[2018-06-27 15:02] LABS: Alanine Aminotransferase 32 IU/L (21-72); Albumin 4.3 g/dL (3.5-5.0); Albumin Globulin Ratio 1.3 (1.0-2.8); Alkaline Phosphatase 118 U/L (38-126); Aspartate Aminotransferase 31 IU/L (17-59); Bilirubin Total 0.7 mg/dL (0.2-1.3); Blood Urea Nitrogen 11 mg/dL (9-20); Carbon Dioxide 19 mmol/L (22-32); Chloride 104 mmol/L (98-107); Estimated Glomerular Filt Rate > 60.0 mL/min (>60); Globulin 3.3 g/dL (1.7-4.1); Glucose 259 mg/dL (70-100); HEMOLYSIS < 15 (0-50); Potassium 4.1 mmol/L (3.4-5.1); Sodium 138 mmol/L (137-145); Total Protein 7.6 g/dL (6.3-8.2)
[2018-06-30 11:28] LABS: Miscellaneous to Univ of WA SEE SEPERATE REPORT
--- NOTE | 2018-07-05 09:45 | PC.NURSE ---
Addendum entered by Sangita Gold R.N. 07/05/18 12:26: Per Dr. Camarena, pt instructed to restart Gleevec and okay to keep appt on 07/20/18. This content writer informed pt, pt verbalizes understanding. Original Note: Contacted pt per Dr. Camarena's request r/t lab result. Pt reports not taking Gleevec when I was in the hospital they told me not to take it until my organs healed. According to pt he was last admitted to hospital in April. Pt has scheduled lab only appt on 07/06 and doesn't see provider until 07/20/18. Will clarify with Provider to see if pt needs to be seen sooner. Will notify pt.
[2018-07-20 16:22] VITALS: BP 123/78; PULSE 88; RESP 18; TEMP 36.8; O2SAT 96
--- NOTE | 2018-07-20 16:50 | P.PNONC_ITS ---
PN -Subjective Interval history: HEMATOLOGY/ONCOLOGY PROGRESS NOTE DATE OF SERVICE: November 17, 2017 PATIENT NAME: RADHA MCDOWELL DATE OF : 1975 PCP: Diagnosis: CML reportedly diagnosed 11 years ago in [place], [place]. Initially managed by Dr. Maurice and later transitioning here to Dr. Leger. Previous treatment: His previously been on several different tyrosine kinase inhibitors but has most recently been on Gleevec 300 mg daily. INTERVAL HISTORY: The patient is a 42-year-old man who returns today for follow-up. He has had a longstanding history of CML and has been on Gleevec 300 mg daily. Since his last visit here, he was hospitalized in April with alcohol withdrawal symptoms. At that time his Gleevec was stopped. He did not restarted until about 2 weeks ago. He reports that he has been feeling generally well. He does have some ongoing shoulder pain that he relates to a previous flu shot. No fevers or chills. No shortness of breath. Appetite has been stable. His strength and energy level have been low but stable. He denies any unusual bleeding or bruising. He has had a little bit of loose stool but no jl diarrhea. He has not noticed any edema. He does have some muscle cramps but does not think that they improve significantly while he was off of his medication. He did have bcr/ABL transcripts checked about 2 weeks ago. They were markedly elevated at 97%. He had been off his Gleevec and did restart at that time. His past medical history is notable for history of diabetes, substance abuse and recurrent infections including diskitis and osteomyelitis. He has a history of MRSA pneumonia. - Patient Self-Reported Symptoms SR Constitution: Fatigue/Malaise, Night Sweats SR ears, nose, mouth, throat issues: Ears ringing SR respiratory issues: Cough SR Cardiovascular issues: Dizzy/lightheaded SR Skin issues: Nail changes SR Gastrointestinal issues: Poor or no appetite, Change in bowel pattern SR Genitourinary issues: Frequent urination, Burning/painful urination, Change in stream, Incontinence SR Musculoskeletal issues: Muscle pain or cramps SR Neuro issues: Headache SR Hematologic issues: Slow healing, Bleeding/bruising SR Endocrine issues: Hot flashes Home Medications and Allergies Home Medications Medication Instructions Recorded Confirmed Type Syringes 1 syr MISCELLANEOUS DIRECTED 11/10/17 07/15/18 History imatinib [Gleevec] 300 mg PO QPM 12/16/17 07/15/18 History insulin glargine (U-100) 100 20 unit SUBCUT BID #15 ml 03/01/18 07/15/18 Rx unit/mL (3 mL) subcutaneous pen True Metrix test strips 0 strip .ROUTE .MEDSUPPLY 04/06/18 07/15/18 History disulfiram 250 mg tablet 250 mg PO DAILY #30 tab 05/30/18 07/15/18 Rx BD U/F Hilda Pen Needle [id number] #100 each 06/13/18 07/15/18 Rx insulin lispro (U- 100) 100 1 - 12 unit SUBCUT TIDCC #1 ea 06/13/18 07/15/18 Rx unit/mL subcutaneous pen ondansetron 4 mg disintegrating 4 mg PO QID PRN #30 tab 07/15/18 Rx tablet Allergies Allergy/AdvReac Type Severity Reaction Status Date / Time Penicillins [PENICILLINS] Allergy Severe Tongue Verified 07/15/18 13:27 swelling, hives adhesive Allergy Unknown PLASTIC Verified 07/15/18 13:27 TAPE latex [LATEX] Allergy Unknown Verified 07/15/18 13:27 Exam Vital signs: Vital Signs Temp Pulse Resp BP Pulse Ox 07/20/18 16:22 98.2 F 88 18 123/78 96 Intake and Output 07/20/18 07/20/18 07/20/18 07:59 15:59 23:59 Other: Weight 74.5 kg Patient Weight 07/20/18 23:59 Weight 74.5 kg - Constitutional positive no acute distress, positive average body habitus - Routine HEENT Exam Head: Present: normocephalic, atraumatic Eye: Present: EOMI, PERRL. Absent: conjunctival icterus, scleral injection ENT: Present: mucous membranes moist, oropharynx clear - Routine Neck Exam Present: supple. Absent: lymphadenopathy, thyromegaly - Routine Respiratory Exam Present: Clear to auscultation bilaterally. Absent: rales, wheezes - Routine Cardiovascular Exam Present: RRR, S1, S2. Absent: murmur - Routine Abdominal Exam Present: soft, normoactive bowel sounds. Absent: tenderness, organomegaly - Routine Extremities Exam Absent: cyanosis, clubbing, edema - Routine Skin Exam Present: intact. Absent: petechiae, rash - Routine Neurological Exam Present: alert, oriented X3 - Routine Psychiatric Exam Present: normal affect, normal thought process Results - Labs Laboratory Last Values WBC 5.5 X10^3/uL (4.5-11.0) 06/27/18 13:22 RBC 4.29 X10^6/uL (4.5-5.9) L 06/27/18 13:22 Hgb 13.4 g/dL (13.5-17.5) L 06/27/18 13:22 Hct 40.9 % (41-53) L 06/27/18 13:22 MCV 95.4 fL (80-100) 06/27/18 13:22 MCH 31.1 PG (26-34) 06/27/18 13:22 MCHC 32.6 % (30-36) 06/27/18 13:22 RDW 13.0 % (11.6-14.8) 06/27/18 13:22 Plt Count 93 X10^3/uL (150-400) L 06/27/18 13:22 Neut % (Auto) 72.3 % (50-75) 06/27/18 13:22 Lymph % (Auto) 16.1 % (25-40) L 06/27/18 13:22 [place] % (Auto) 7.8 % (3-14) 06/27/18 13:22 Eos % (Auto) 2.6 % (2-4) 06/27/18 13:22 Baso % (Auto) 1.2 % (0-2) 06/27/18 13:22 Neut # (Auto) 4000 /uL (6535-6738) 06/27/18 13:22 Lymph # (Auto) 900 /uL (5955-8692) L 06/27/18 13:22 [place] # (Auto) 400 /uL (0-900) 06/27/18 13:22 Eos # (Auto) 100 /uL (0-450) 06/27/18 13:22 Baso # (Auto) 100 /uL (0-100) 06/27/18 13:22 RBC Morphology Not Reportable 10/20/17 13:53 Anisocytosis 1+ H 10/20/17 13:53 Macrocytosis 1+ H 07/11/18 13:53 Sodium 138 mmol/L (137-145) 06/27/18 13:22 Potassium 4.1 mmol/L (3.4-5.1) 06/27/18 13:22 Chloride 104 mmol/L (98-107) 06/27/18 13:22 Carbon Dioxide 19 mmol/L (22-32) L 06/27/18 13:22 BUN 11 mg/dL (9-20) 06/27/18 13:22 Creatinine 1.00 mg/dL (0.66-1.25) 06/27/18 13:22 Estimated GFR > 60.0 mL/min (>60) 06/27/18 13:22 BUN/Creatinine Ratio 11.0 (6-22) 06/27/18 13:22 Glucose 259 mg/dL (70-100) H 06/27/18 13:22 Calcium 9.0 mg/dL (8.4-10.2) 06/27/18 13:22 Total Bilirubin 0.7 mg/dL (0.2-1.3) 06/27/18 13:22 AST 31 IU/L (17-59) 06/27/18 13:22 ALT 32 IU/L (21-72) 06/27/18 13:22 Alkaline Phosphatase 118 U/L (38-126) 06/27/18 13:22 Total Protein 7.6 g/dL (6.3-8.2) 06/27/18 13:22 Albumin 4.3 g/dL (3.5-5.0) 06/27/18 13:22 Globulin 3.3 g/dL (1.7-4.1) 06/27/18 13:22 Albumin/Globulin Ratio 1.3 (1.0-2.8) 06/27/18 13:22 Ref Test (Refrig) See seperate report 06/27/18 13:22 - Imaging Additional studies: Procedures Biopsy of bone, other bones (07/01/14) Detoxification Services for Substance Abuse Treatment (09/20/16) Excisional debridement of wound, infection, or burn (12/23/13) Injection of tranquilizer (01/01/14) Injection or infusion of other therapeutic or prophylactic substance (01/01/14) Other endoscopy of small intestine (08/21/13) Transfusion of Nonautologous Platelets into Peripheral Vein, Percutaneous Approach (09/20/16) Transfusion of packed cells (07/01/14) Transfusion of platelets (06/10/14) Venous catheterization, not elsewhere classified (07/01/14) Assessment and Plan (1) CML (chronic myelocytic leukemia) Problem details: 42-year-old man with longstanding history of CML. Current visit: No Status: Acute He has been off Gleevec for about 3 months and just recently started back about 2 weeks ago. He appears to be tolerating his medication adequately. He will return to clinic in about 2 weeks for follow-up with a recheck on his transcripts. If they are decreasing, we will change back to monthly follow-up for awhile. If he is not having adequate response, he may need a different tyrosine kinase inhibitor.
[2018-08-03 13:46] VITALS: BP 133/84; PULSE 84; RESP 18; TEMP 36.3; O2SAT 99
--- NOTE | 2018-08-03 14:05 | P.PNONC_ITS ---
PN -Subjective Interval history: HEMATOLOGY/ONCOLOGY PROGRESS NOTE DATE OF SERVICE: November 17, 2017 PATIENT NAME: RADHA MCDOWELL DATE OF : 1975 PCP: Diagnosis: CML reportedly diagnosed 11 years ago in [place], [place]. Initially managed by Dr. Maurice and later transitioning here to Dr. Leger. Previous treatment: His previously been on several different tyrosine kinase inhibitors but has most recently been on Gleevec 300 mg daily. INTERVAL HISTORY: The patient is a 42-year-old man who returns today for follow-up. He has had a longstanding history of CML and has been on Gleevec 300 mg daily. Since his last visit here, he has been taking his Gleevec regularly and tolerating it fairly well. He has noted some nausea and a few episodes of vomiting. He has been taking ondansetron but does not find it particularly helpful. He has not had any diarrhea and in fact has been 20 towards constipation. He does have some sweats and chills but no fever. He denies any shortness of breath or cough. He has not noted any adenopathy. No unusual bleeding or bruising. He did have a mammogram and ultrasound done that showed only gynecomastia. He denies any other changes in his health. His past medical history is notable for history of diabetes, substance abuse and recurrent infections including diskitis and osteomyelitis. He has a history of MRSA pneumonia. - Patient Self-Reported Symptoms SR Constitution: Fatigue/Malaise, Night Sweats SR ears, nose, mouth, throat issues: Ears ringing SR respiratory issues: Cough SR Cardiovascular issues: Dizzy/lightheaded SR Skin issues: Nail changes SR Gastrointestinal issues: Poor or no appetite, Nausea, Constipation SR Genitourinary issues: Frequent urination SR Musculoskeletal issues: Muscle pain or cramps SR Neuro issues: Headache SR Hematologic issues: Slow healing, Bleeding/bruising SR Endocrine issues: Hot flashes Home Medications and Allergies Home Medications Medication Instructions Recorded Confirmed Type Syringes 1 syr MISCELLANEOUS DIRECTED 11/10/17 07/29/18 History imatinib [Gleevec] 300 mg PO QPM 12/16/17 08/03/18 History True Metrix test strips 0 strip .ROUTE .MEDSUPPLY 04/06/18 08/03/18 History disulfiram 250 mg tablet 250 mg PO DAILY #30 tab 05/30/18 08/03/18 Rx BD U/F Hilda Pen Needle [id number] #100 each 06/13/18 08/03/18 Rx insulin lispro (U- 100) 100 1 - 12 unit SUBCUT TIDCC #1 ea 06/13/18 08/03/18 Rx unit/mL subcutaneous pen ondansetron 4 mg disintegrating 4 mg PO QID PRN #30 tab 07/15/18 08/03/18 Rx tablet meloxicam 15 mg tablet 15 mg PO DAILY #30 tab 07/29/18 08/03/18 Rx insulin glargine (U-100) 100 25 unit SUBCUT BID #15 ml 08/02/18 08/03/18 Rx unit/mL (3 mL) subcutaneous pen Allergies Allergy/AdvReac Type Severity Reaction Status Date / Time Penicillins [PENICILLINS] Allergy Severe Tongue Verified 07/29/18 08:07 swelling, hives adhesive Allergy Unknown PLASTIC Verified 07/29/18 08:07 TAPE latex [LATEX] Allergy Unknown Verified 07/29/18 08:07 Exam Vital signs: Vital Signs Temp Pulse Resp BP Pulse Ox 08/03/18 13:46 97.3 F L 84 18 133/84 99 Intake and Output 08/02/18 08/03/18 08/03/18 23:59 07:59 15:59 Other: Weight 73.5 kg Patient Weight 08/03/18 23:59 Weight 73.5 kg - Constitutional positive no acute distress, positive average body habitus - Routine HEENT Exam Head: Present: normocephalic, atraumatic Eye: Present: EOMI, PERRL. Absent: conjunctival icterus, scleral injection ENT: Present: mucous membranes moist, oropharynx clear - Routine Neck Exam Present: supple. Absent: lymphadenopathy, thyromegaly - Routine Respiratory Exam Present: Clear to auscultation bilaterally. Absent: rales, wheezes - Routine Cardiovascular Exam Present: RRR, S1, S2. Absent: murmur - Routine Abdominal Exam Present: soft, normoactive bowel sounds Comments: He does have some mild tenderness in the left upper quadrant. There is no rebound or guarding. The liver edge is just palpable under the costal margin with deep inspiration. I do not feel any splenomegaly. - Routine Extremities Exam Absent: cyanosis, clubbing, edema - Routine Back/Spine Exam Back/Spine: Absent: vertebral tenderness - Routine Skin Exam Present: intact. Absent: petechiae, rash - Routine Neurological Exam Present: alert, oriented X3 - Routine Psychiatric Exam Present: normal affect, normal thought process Results - Labs Laboratory Last Values WBC 5.5 X10^3/uL (4.5-11.0) 06/27/18 13:22 RBC 4.29 X10^6/uL (4.5-5.9) L 06/27/18 13:22 Hgb 13.4 g/dL (13.5-17.5) L 06/27/18 13:22 Hct 40.9 % (41-53) L 06/27/18 13:22 MCV 95.4 fL (80-100) 06/27/18 13:22 MCH 31.1 PG (26-34) 06/27/18 13:22 MCHC 32.6 % (30-36) 06/27/18 13:22 RDW 13.0 % (11.6-14.8) 06/27/18 13:22 Plt Count 93 X10^3/uL (150-400) L 06/27/18 13:22 Neut % (Auto) 72.3 % (50-75) 06/27/18 13:22 Lymph % (Auto) 16.1 % (25-40) L 06/27/18 13:22 [place] % (Auto) 7.8 % (3-14) 06/27/18 13:22 Eos % (Auto) 2.6 % (2-4) 06/27/18 13:22 Baso % (Auto) 1.2 % (0-2) 06/27/18 13:22 Neut # (Auto) 4000 /uL (9053-3277) 06/27/18 13:22 Lymph # (Auto) 900 /uL (6207-1106) L 06/27/18 13:22 [place] # (Auto) 400 /uL (0-900) 06/27/18 13:22 Eos # (Auto) 100 /uL (0-450) 06/27/18 13:22 Baso # (Auto) 100 /uL (0-100) 06/27/18 13:22 RBC Morphology Not Reportable 10/20/17 13:53 Anisocytosis 1+ H 10/20/17 13:53 Macrocytosis 1+ H 10/20/17 13:53 Sodium 138 mmol/L (137-145) 06/27/18 13:22 Potassium 4.1 mmol/L (3.4-5.1) 06/27/18 13:22 Chloride 104 mmol/L (98-107) 06/27/18 13:22 Carbon Dioxide 19 mmol/L (22-32) L 06/27/18 13:22 BUN 11 mg/dL (9-20) 06/27/18 13:22 Creatinine 1.00 mg/dL (0.66-1.25) 06/27/18 13:22 Estimated GFR > 60.0 mL/min (>60) 06/27/18 13:22 BUN/Creatinine Ratio 11.0 (6-22) 06/27/18 13:22 Glucose 259 mg/dL (70-100) H 06/27/18 13:22 Calcium 9.0 mg/dL (8.4-10.2) 06/27/18 13:22 Total Bilirubin 0.7 mg/dL (0.2-1.3) 06/27/18 13:22 AST 31 IU/L (17-59) 06/27/18 13:22 ALT 32 IU/L (21-72) 06/27/18 13:22 Alkaline Phosphatase 118 U/L (38-126) 06/27/18 13:22 Total Protein 7.6 g/dL (6.3-8.2) 06/27/18 13:22 Albumin 4.3 g/dL (3.5-5.0) 06/27/18 13:22 Globulin 3.3 g/dL (1.7-4.1) 06/27/18 13:22 Albumin/Globulin Ratio 1.3 (1.0-2.8) 06/27/18 13:22 Ref Test (Refrig) See seperate report 06/27/18 13:22 - Imaging Additional studies: Procedures Biopsy of bone, other bones (07/01/14) Detoxification Services for Substance Abuse Treatment (09/20/16) Excisional debridement of wound, infection, or burn (12/23/13) Injection of tranquilizer (01/01/14) Injection or infusion of other therapeutic or prophylactic substance (01/01/14) Other endoscopy of small intestine (08/21/13) Transfusion of Nonautologous Platelets into Peripheral Vein, Percutaneous Approach (09/20/16) Transfusion of packed cells (07/01/14) Transfusion of platelets (06/10/14) Venous catheterization, not elsewhere classified (07/01/14) Assessment and Plan (1) CML (chronic myelocytic leukemia) Problem details: 42-year-old man with longstanding history of CML. Current visit: No Status: Acute He has been taking his Gleevec regularly and tolerating it with some difficulty. His blood counts have return to his usual baseline. Bcr/ABL transcripts are pending. He will return to clinic in about 1 month for follow-up. If he is doing well, we may be able to switch to 3 month follow-up after that.
--- NOTE | 2018-09-20 15:55 | PC.NURSE ---
Patient's mother called today concerned about patient having nauseau, increased bowel movements and looking very pale and requested to move appt sooner. She states no black stool tho patient does report occasional bright blood with bowel movement, no fever, no SOB. Patient notified by schedulers that appt would be moved to 09/21. She was told to bring him to ER if uncontrolled bleeding, SOB or chest pain.
[2018-09-21 10:41] VITALS: BP 127/79; PULSE 102; RESP 18; TEMP 37; O2SAT 97
--- NOTE | 2018-09-21 10:59 | P.PNONC_ITS ---
PN -Subjective Interval history: HEMATOLOGY/ONCOLOGY PROGRESS NOTE DATE OF SERVICE: November 17, 2017 PATIENT NAME: RADHA MCDOWELL DATE OF : 1975 PCP: Diagnosis: CML reportedly diagnosed 11 years ago in [place], [place]. Initially managed by Dr. Maurice and later transitioning here to Dr. Leger. Previous treatment: His previously been on several different tyrosine kinase inhibitors but has most recently been on Gleevec 300 mg daily. INTERVAL HISTORY: The patient is a 42-year-old man who returns today for follow-up. He has had a longstanding history of CML and has been on Gleevec 300 mg daily. Since his last visit here, he has been taking his Gleevec regularly. He has been bothered by increased toxicity however. He has been bothered by a nausea and vomiting. He claims to have retching 50-100 times a day for the last several weeks. It has been difficult for him to eat and drink. He also notes frequent diarrhea. He has had muscle cramps and swelling. He notes some dyspnea on exertion. He has been taking Zofran which has not been providing much relief any requests lorazepam. He did have grew all fall on his hand and fractured bone in his wrist. He now has a cast. He denies any other changes in his health. His past medical history is notable for history of diabetes, substance abuse and recurrent infections including diskitis and osteomyelitis. He has a history of MRSA pneumonia. - Patient Self-Reported Symptoms SR Constitution: Fatigue/Malaise, Night Sweats SR ears, nose, mouth, throat issues: Ears ringing SR respiratory issues: Cough SR Cardiovascular issues: Dizzy/lightheaded SR Skin issues: Nail changes SR Gastrointestinal issues: Poor or no appetite, Change in bowel pattern, Nausea, Vomiting, Diarrhea, Blood in stool, Abdominal pain SR Genitourinary issues: Frequent urination SR Musculoskeletal issues: Muscle weakness, Difficulty walking, Bone pain SR Neuro issues: Lightheaded/dizzy SR Hematologic issues: Slow healing SR Endocrine issues: Excessive urination, Hot flashes Home Medications and Allergies Home Medications Medication Instructions Recorded Confirmed Type Syringes 1 syr MISCELLANEOUS DIRECTED 11/10/17 09/21/18 History imatinib [Gleevec] 300 mg PO QPM 12/16/17 09/21/18 History True Metrix test strips 0 strip .ROUTE .MEDSUPPLY 04/06/18 09/21/18 History disulfiram 250 mg tablet 250 mg PO DAILY #30 tab 05/30/18 09/21/18 Rx BD U/F Hilda Pen Needle [id number] #100 each 06/13/18 09/21/18 Rx insulin lispro (U- 100) 100 1 - 12 unit SUBCUT TIDCC #1 ea 06/13/18 09/21/18 Rx unit/mL subcutaneous pen ondansetron 4 mg disintegrating 4 mg PO QID PRN #30 tab 07/15/18 09/21/18 Rx tablet meloxicam 15 mg tablet 15 mg PO DAILY #30 tab 07/29/18 09/21/18 Rx insulin glargine (U-100) 100 25 unit SUBCUT BID #15 ml 08/02/18 09/21/18 Rx unit/mL (3 mL) subcutaneous pen acetaminophen-codeine 1 tab PO Q6H PRN #10 tab 09/08/18 09/21/18 Rx [Tylenol-Codeine #3] lorazepam 1 mg PO BID 30 Days #60 tab 09/21/18 Rx Allergies Allergy/AdvReac Type Severity Reaction Status Date / Time Penicillins [PENICILLINS] Allergy Severe Tongue Verified 07/29/18 08:07 swelling, hives adhesive Allergy Unknown PLASTIC Verified 07/29/18 08:07 TAPE latex [LATEX] Allergy Unknown Verified 07/29/18 08:07 Exam Vital signs: Vital Signs Temp Pulse Resp BP Pulse Ox 09/21/18 10:41 98.6 F 102 H 18 127/79 97 Intake and Output 09/20/18 09/21/18 09/21/18 23:59 07:59 15:59 Other: Weight 74.1 kg Patient Weight 09/21/18 23:59 Weight 74.1 kg - Constitutional positive no acute distress, positive average body habitus Comments: He does appear somewhat uncomfortable. - Routine HEENT Exam Head: Present: normocephalic, atraumatic Eye: Present: EOMI, PERRL. Absent: conjunctival icterus, scleral injection ENT: Present: mucous membranes moist, oropharynx clear - Routine Neck Exam Present: supple. Absent: lymphadenopathy, thyromegaly - Routine Chest/Breast/Axilla Exam Axillae: Absent: lymphadenopathy - Routine Respiratory Exam Present: Clear to auscultation bilaterally. Absent: rales, wheezes - Routine Cardiovascular Exam Present: RRR, S1, S2. Absent: murmur - Routine Abdominal Exam Present: soft, normoactive bowel sounds. Absent: tenderness, organomegaly, mass - Routine Extremities Exam Absent: cyanosis, clubbing, edema - Routine Skin Exam Present: intact, normal turgor. Absent: petechiae, rash - Routine Neurological Exam Present: alert, oriented X3 - Routine Psychiatric Exam Present: normal affect, normal thought process Results - Labs Laboratory Last Values WBC 5.5 X10^3/uL (4.5-11.0) 06/27/18 13:22 RBC 4.29 X10^6/uL (4.5-5.9) L 06/27/18 13:22 Hgb 13.4 g/dL (13.5-17.5) L 06/27/18 13:22 Hct 40.9 % (41-53) L 06/27/18 13:22 MCV 95.4 fL (80-100) 06/27/18 13:22 MCH 31.1 PG (26-34) 06/27/18 13:22 MCHC 32.6 % (30-36) 06/27/18 13:22 RDW 13.0 % (11.6-14.8) 06/27/18 13:22 Plt Count 93 X10^3/uL (150-400) L 06/27/18 13:22 Neut % (Auto) 72.3 % (50-75) 06/27/18 13:22 Lymph % (Auto) 16.1 % (25-40) L 06/27/18 13:22 [place] % (Auto) 7.8 % (3-14) 06/27/18 13:22 Eos % (Auto) 2.6 % (2-4) 06/27/18 13:22 Baso % (Auto) 1.2 % (0-2) 06/27/18 13:22 Neut # (Auto) 4000 /uL (8886-3283) 06/27/18 13:22 Lymph # (Auto) 900 /uL (7549-7547) L 06/27/18 13:22 [place] # (Auto) 400 /uL (0-900) 06/27/18 13:22 Eos # (Auto) 100 /uL (0-450) 06/27/18 13:22 Baso # (Auto) 100 /uL (0-100) 06/27/18 13:22 RBC Morphology Not Reportable 10/20/17 13:53 Anisocytosis 1+ H 10/20/17 13:53 Macrocytosis 1+ H 10/20/17 13:53 Sodium 138 mmol/L (137-145) 06/27/18 13:22 Potassium 4.1 mmol/L (3.4-5.1) 06/27/18 13:22 Chloride 104 mmol/L (98-107) 06/27/18 13:22 Carbon Dioxide 19 mmol/L (22-32) L 06/27/18 13:22 BUN 11 mg/dL (9-20) 06/27/18 13:22 Creatinine 1.00 mg/dL (0.66-1.25) 06/27/18 13:22 Estimated GFR > 60.0 mL/min (>60) 06/27/18 13:22 BUN/Creatinine Ratio 11.0 (6-22) 06/27/18 13:22 Glucose 259 mg/dL (70-100) H 06/27/18 13:22 Calcium 9.0 mg/dL (8.4-10.2) 06/27/18 13:22 Total Bilirubin 0.7 mg/dL (0.2-1.3) 06/27/18 13:22 AST 31 IU/L (17-59) 06/27/18 13:22 ALT 32 IU/L (21-72) 06/27/18 13:22 Alkaline Phosphatase 118 U/L (38-126) 06/27/18 13:22 Total Protein 7.6 g/dL (6.3-8.2) 06/27/18 13:22 Albumin 4.3 g/dL (3.5-5.0) 06/27/18 13:22 Globulin 3.3 g/dL (1.7-4.1) 06/27/18 13:22 Albumin/Globulin Ratio 1.3 (1.0-2.8) 06/27/18 13:22 Ref Test (Refrig) See seperate report 06/27/18 13:22 - Imaging Additional studies: Procedures Biopsy of bone, other bones (07/01/14) Detoxification Services for Substance Abuse Treatment (09/20/16) Excisional debridement of wound, infection, or burn (12/23/13) Injection of tranquilizer (01/01/14) Injection or infusion of other therapeutic or prophylactic substance (01/01/14) Other endoscopy of small intestine (08/21/13) Transfusion of Nonautologous Platelets into Peripheral Vein, Percutaneous Approach (09/20/16) Transfusion of packed cells (07/01/14) Transfusion of platelets (06/10/14) Venous catheterization, not elsewhere classified (07/01/14) Assessment and Plan (1) CML (chronic myelocytic leukemia) Problem details: 42-year-old man with longstanding history of CML. Current visit: No Status: Acute He has been taking his Gleevec regularly and tolerating it with some difficulty. His blood counts have return to his usual baseline. Bcr/ABL transcripts are pending from today but it is last visit were around 40% down from 100% previously. I did give him a prescription for some a lorazepam for his nausea but cautioned him not to take more than 2 pills a day. He clinically does not appear to be dehydrated and his weight is actually increased since his last visit. He will continue with his Gleevec and return to clinic in about 2 months for follow-up.
--- NOTE | 2018-09-22 16:52 | PC.NURSE ---
Returned call from mother of patient and informed her of patient's last platelet level.
--- NOTE | 2018-10-04 11:19 | PC.NURSE ---
Patient contacted by this nurse following call by his mother stating that he is constantly throwing up. Patient states that he is throwing up or having dry heaves most of the day except for a couple of hours after taking his ativan. In this time he is able to eat and drink and keep some of it down. He does not think he has lost more weight. His urine he states is light yellow and his usual amount of about 1/2 cup 15 to 20 times in a 24 hours. This he reports as his usual urination pattern. He does feel that the emesis has gotten somewhat worse since his last visit. He states that zofran has not been very effective anymore. He was encouraged to drink small amounts of water very frequently throughout the day. This nurse sent report/request for further action to Dr. Camarena. Patient would also like to know if results are back on his Bcr/ABL transcript test and requests if Dr. Camarena can call him with the results.
--- NOTE | 2018-10-04 15:31 | PC.NURSE ---
This nurse called patient to inform that Dr. Camarena e-scripted compazine for him. He was encouraged to drink water very frequently in small amounts and to eat frequent small meals, both measures he says he has been doing. He says his sugars do get down to 40s or 50s but he always has pop, juice and fructose tablets handy and also wakes in night to measure and eat some snacks. Patient says this has been going on for years in this way and he thinks the [facility] accentuates it. Patient informed that no new results of Bcr/ABL transcript test available.
--- NOTE | 2018-10-11 12:07 | PC.NURSE ---
This nurse called patient to check back on results of new prescription compazine use for nauseau and vomiting. Patient said he has tried it out but not really better, I am still sick with nauseau and vomiting. He states he could still try taking up to the max of prn instructed and will try this out as nurse instructed. He states he is able to keep food down in the few hours around using the ativan or compazine and that he is urinating plenty of light yellow urine. He states also that he is continuing to take his Gleevec. Patient stated understanding to this plan and agreed to call in if problems with it.
--- NOTE | 2018-10-24 12:11 | PC.NURSE ---
Addendum entered by Pily Torre R.N. 10/24/18 14:34: WILL Haynes triage for Dr. Camarena called and confirmed that Dr. Camarena said for patient to continue on Gleevec. This nurse communicated this per telephone message to mother of patient. Original Note: Patient's mother had called informing that he was admitted to [facility] on October 19 for a foot infection and wondering if the Doctor wants him to be taking his gleevec. After reading hospitalist's notes stating he should continue on Gleevec this nurse called and left message on her voice mail that Dr. Lugo did order for him to continue and that they should bring in his meds and give to the floor nurse. This nurse also communicated with floor nurse about this and made her aware of the situation. As well, triage nurse of Dr. Camarena at [facility] was called requesting that she should consult with Dr. Camarena for confirmation that he should continue. WILL Haynes from triage will be calling back.
--- NOTE | 2018-11-02 15:12 | PC.NURSE ---
Pt called requesting RX for Ativan. To this data analyst report writer's understanding pt is only supposed to get controlled RX's from primary provider, Dr. Willingham. This data analyst report writer spoke with Thelma, Dr. Willingham's MA, asking for update r/t to pt's Benzo and Pain medication prescriptions and refills. Per Thelma, Dr. Willingham no longer prescribes or refills any controlled substances for patient since he broke his pain contract a while ago. Per Thelma, pt's pain contract was broken in August of last year. Pt last given 30 day RX for Ativan on 09/21/[address] Camarena. This data analyst report writer spoke with Dr. Camarena with updated information, Dr. Camarena okay with giving 30 day RX for Ativan at this time. Called pt to let him know RX is ready to be picked up at this clinic. Let pt know we will not refill RX early, pt voiced understanding. Also discussed importance of keeping all oncology appointments with with Dr. Camarena and remaining compliant with treatment plan put in place, pt verbalized understanding, states I know, I will. Thank you. Call ended
[2018-11-22 11:46] VITALS: BP 136/85; PULSE 86; RESP 18; TEMP 36.7; O2SAT 98
--- NOTE | 2018-11-22 12:13 | ONC.PN ---
PN -Subjective Interval history: HEMATOLOGY/ONCOLOGY PROGRESS NOTE DATE OF SERVICE: November 17, 2017 PATIENT NAME: RADHA MCDOWELL DATE OF : 1975 PCP: Diagnosis: CML reportedly diagnosed 11 years ago in [place], [place]. Initially managed by Dr. Maurice and later transitioning here to Dr. Leger. Previous treatment: His previously been on several different tyrosine kinase inhibitors but has most recently been on Gleevec 300 mg daily. INTERVAL HISTORY: The patient is a 42-year-old man who returns today for follow-up. He has had a longstanding history of CML and has been on Gleevec 300 mg daily. Since his last visit here, he has been taking his Gleevec regularly. He notes some ongoing fatigue, generalized weakness and nausea. He has been using ondansetron. He had been taking some lorazepam. Since his last visit, he has been bothered by a diabetic foot infection and has needed debridement surgery. He still on some oral antibiotics but does not know the name. He thinks that he has almost finished with his treatment. He is not having any fevers. No shortness of breath but he does have some cough and sore throat. He has not noticed any edema. He is having some diarrhea and occasional cramping. He denies any other changes in his health. His past medical history is notable for history of diabetes, substance abuse and recurrent infections including diskitis and osteomyelitis. He has a history of MRSA pneumonia. - Patient Self-Reported Symptoms SR Constitution: Fatigue/Malaise SR ears, nose, mouth, throat issues: Ears ringing SR respiratory issues: Cough SR Cardiovascular issues: Dizzy/lightheaded SR Skin issues: Nail changes SR Gastrointestinal issues: Poor or no appetite, Change in bowel pattern, Nausea, Vomiting SR Genitourinary issues: Frequent urination SR Musculoskeletal issues: Muscle weakness, Muscle pain or cramps, Back or neck pain, Cold hands or feet, Bone pain SR Neuro issues: Lightheaded/dizzy SR Hematologic issues: Slow healing SR Endocrine issues: Excessive urination, Hot flashes Home Medications and Allergies Home Medications Medication Instructions Recorded Confirmed Type Syringes 1 syr MISCELLANEOUS DIRECTED 11/10/17 10/19/18 History imatinib [Gleevec] 300 mg PO QPM 12/16/17 11/22/18 History True Metrix test strips 0 strip .ROUTE .MEDSUPPLY 04/06/18 10/19/18 History BD U/F Hilda Pen Needle [id number] #100 each 06/13/18 10/19/18 Rx insulin lispro (U- 100) 100 1 - 12 unit SUBCUT TIDCC #1 ea 06/13/18 11/22/18 Rx unit/mL subcutaneous pen insulin glargine (U-100) 100 25 unit SUBCUT BID #15 ml 08/02/18 11/22/18 Rx unit/mL (3 mL) subcutaneous pen prochlorperazine maleate 10 mg PO Q6H PRN #30 tab 10/04/18 11/22/18 Rx [Compazine] L.acidoph-L.bulg-B.bif-S.therm 1 ea PO TIDWM #90 tab 10/24/18 11/22/18 Rx [Bacid (L. acidophilus)] docusate sodium [DOK] 100 mg PO BID #60 cap 10/24/18 11/22/18 Rx oxycodone 10 mg PO Q6-12H PRN #15 tab 10/24/18 Rx lorazepam [Ativan] 1 mg PO BID 30 Days #60 tab 11/01/18 Rx ondansetron 4 mg PO QID PRN #30 tab 11/22/18 Rx Allergies Allergy/AdvReac Type Severity Reaction Status Date / Time Penicillins [PENICILLINS] Allergy Severe Tongue Verified 10/19/18 12:54 swelling, hives adhesive Allergy Unknown PLASTIC Verified 10/19/18 12:54 TAPE latex [LATEX] Allergy Unknown Verified 10/19/18 12:54 Exam Vital signs: Vital Signs Temp Pulse Resp BP Pulse Ox 11/22/18 11:46 98.1 F 86 18 136/85 98 Intake and Output 11/21/18 11/22/18 11/22/18 23:59 07:59 15:59 Other: Weight 75.9 kg Patient Weight 11/22/18 23:59 Weight 75.9 kg - Constitutional positive no acute distress, positive average body habitus - Routine HEENT Exam Head: Present: normocephalic, atraumatic Eye: Present: EOMI, PERRL. Absent: conjunctival icterus, scleral injection ENT: Present: mucous membranes moist, oropharynx clear - Routine Neck Exam Present: supple. Absent: lymphadenopathy, thyromegaly - Routine Respiratory Exam Present: Clear to auscultation bilaterally. Absent: rales, wheezes - Routine Cardiovascular Exam Present: RRR, S1, S2. Absent: murmur - Routine Abdominal Exam Present: soft, normoactive bowel sounds. Absent: tenderness, organomegaly - Routine Extremities Exam Absent: cyanosis, clubbing, edema Comments: He does have a dressing on the right foot that was not taken down. - Routine Skin Exam Present: intact. Absent: petechiae, rash - Routine Neurological Exam Present: alert, oriented X3 - Routine Psychiatric Exam Present: normal affect, normal thought process Results - Labs Laboratory Last Values WBC 5.5 X10^3/uL (4.5-11.0) 06/27/18 13:22 RBC 4.29 X10^6/uL (4.5-5.9) L 06/27/18 13:22 Hgb 13.4 g/dL (13.5-17.5) L 06/27/18 13:22 Hct 40.9 % (41-53) L 06/27/18 13:22 MCV 95.4 fL (80-100) 06/27/18 13:22 MCH 31.1 PG (26-34) 06/27/18 13:22 MCHC 32.6 % (30-36) 06/27/18 13:22 RDW 13.0 % (11.6-14.8) 06/27/18 13:22 Plt Count 93 X10^3/uL (150-400) L 06/27/18 13:22 Neut % (Auto) 72.3 % (50-75) 06/27/18 13:22 Lymph % (Auto) 16.1 % (25-40) L 06/27/18 13:22 [place] % (Auto) 7.8 % (3-14) 06/27/18 13:22 Eos % (Auto) 2.6 % (2-4) 06/27/18 13:22 Baso % (Auto) 1.2 % (0-2) 06/27/18 13:22 Neut # (Auto) 4000 /uL (7481-8383) 06/27/18 13:22 Lymph # (Auto) 900 /uL (6305-7278) L 06/27/18 13:22 [place] # (Auto) 400 /uL (0-900) 06/27/18 13:22 Eos # (Auto) 100 /uL (0-450) 06/27/18 13:22 Baso # (Auto) 100 /uL (0-100) 06/27/18 13:22 RBC Morphology Not Reportable 10/20/17 13:53 Anisocytosis 1+ H 10/20/17 13:53 Macrocytosis 1+ H 10/20/17 13:53 Sodium 138 mmol/L (137-145) 06/27/18 13:22 Potassium 4.1 mmol/L (3.4-5.1) 06/27/18 13:22 Chloride 104 mmol/L (98-107) 06/27/18 13:22 Carbon Dioxide 19 mmol/L (22-32) L 06/27/18 13:22 BUN 11 mg/dL (9-20) 06/27/18 13:22 Creatinine 1.00 mg/dL (0.66-1.25) 06/27/18 13:22 Estimated GFR > 60.0 mL/min (>60) 06/27/18 13:22 BUN/Creatinine Ratio 11.0 (6-22) 06/27/18 13:22 Glucose 259 mg/dL (70-100) H 06/27/18 13:22 Calcium 9.0 mg/dL (8.4-10.2) 06/27/18 13:22 Total Bilirubin 0.7 mg/dL (0.2-1.3) 06/27/18 13:22 AST 31 IU/L (17-59) 06/27/18 13:22 ALT 32 IU/L (21-72) 06/27/18 13:22 Alkaline Phosphatase 118 U/L (38-126) 06/27/18 13:22 Total Protein 7.6 g/dL (6.3-8.2) 06/27/18 13:22 Albumin 4.3 g/dL (3.5-5.0) 06/27/18 13:22 Globulin 3.3 g/dL (1.7-4.1) 06/27/18 13:22 Albumin/Globulin Ratio 1.3 (1.0-2.8) 06/27/18 13:22 Ref Test (Refrig) See seperate report 06/27/18 13:22 - Imaging Additional studies: Procedures Biopsy of bone, other bones (07/01/14) Detoxification Services for Substance Abuse Treatment (09/20/16) Excision of Right Foot Tendon, Open Approach (10/19/18) Excisional debridement of wound, infection, or burn (12/23/13) Injection of tranquilizer (01/01/14) Injection or infusion of other therapeutic or prophylactic substance (01/01/14) Other endoscopy of small intestine (08/21/13) Transfusion of Nonautologous Platelets into Peripheral Vein, Percutaneous Approach (09/20/16) Transfusion of packed cells (07/01/14) Transfusion of platelets (06/10/14) Venous catheterization, not elsewhere classified (07/01/14) Assessment and Plan (1) CML (chronic myelocytic leukemia) Problem details: 42-year-old man with longstanding history of CML. Current visit: No Status: Acute He has been taking his Gleevec regularly and tolerating it with some difficulty but has been hematologically stable. He will continue with his current regimen. He will return to clinic in 2 months for follow-up.
[2018-12-08 08:51] LABS: Alanine Aminotransferase 24 IU/L (21-72); Albumin 3.9 g/dL (3.5-5.0); Albumin Globulin Ratio 1.3 (1.0-2.8); Alkaline Phosphatase 119 U/L (38-126); Aspartate Aminotransferase 36 IU/L (17-59); BUN Creatinine Ratio 5.4 (6-22); Bilirubin Total 0.6 mg/dL (0.2-1.3); Blood Urea Nitrogen 7 mg/dL (9-20); Calcium 8.3 mg/dL (8.4-10.2); Carbon Dioxide 25 mmol/L (22-32); Chloride 99 mmol/L (98-107); Estimated Glomerular Filt Rate > 60.0 mL/min (>60); Glucose 356 mg/dL (70-100); HEMOLYSIS < 15 (0-50); Potassium 4.5 mmol/L (3.4-5.1); Sodium 137 mmol/L (137-145); Total Protein 6.9 g/dL (6.3-8.2)
[2018-12-08 08:56] LABS: Add Manual Diff / Slide Review NO; Basophils Absolute Auto 0 /uL (0-100); Basophils Percent Auto 0.5 % (0-2); Eosinophils Absolute Auto 0 /uL (0-450); Eosinophils Percent Auto 1.2 % (2-4); Hemoglobin 10.9 g/dL (13.5-17.5); Lymphocytes Absolute Auto 400 /uL (1100-4500); Lymphocytes Percent Auto 10.7 % (25-40); Mean Corpuscular HGB Conc 33.2 % (30-36); Mean Corpuscular Hemoglobin 30.7 PG (26-34); Mean Corpuscular Volume 92.7 fL (80-100); Monocytes Absolute Auto 300 /uL (0-900); Monocytes Percent Auto 8.1 % (3-14); Neutrophils Absolute Auto 3100 /uL (1500-7000); Neutrophils Percent Auto 79.5 % (50-75); Platelet Count 80 X10^3/uL (150-400); Red Blood Cell Count 3.56 X10^6/uL (4.5-5.9); Red Cell Distribution Width 14.2 % (11.6-14.8); White Blood Cell Count 3.9 X10^3/uL (4.5-11.0)
[2018-12-10 22:05] LABS: BCR ABL1 ABL1 IS 48.657 (0.000); Specimen Source Blood
--- NOTE | 2019-01-03 10:04 | PC.NURSE ---
LORAZEPAM REQUEST: Patient called last Wednesday with 3 days notice to have lorazepam filled. This corresponded in amount(considering the weekend) correctly to what had last been ordered. Dr. Bauer did not write prescription as he did not find an active prescription of Dr. Camarena in EMR. Dr. Camarena returned from vacation today and situation explained to him including patient's report of needing the ativan in order to keep food down. Patient stated being really sick and that for a few hours after he takes ativan he is able to eat and keep it down otherwise emesis several times a day. He states that he is drinking plenty of water and ensure. Dr. Camarena stated he wants to keep him on the ativan dose he has been prescribing so that patient can continue to take his Gleevec. Patient called to picker and sorter load and unload prescription. Nurse handed prescription to him personally. Patient appears freshly washed and dressed, alert and oriented and ambulatory without any problem.
--- NOTE | 2019-02-23 11:11 | ONC.SCHED ---
Moved patient once for urgent patient. Don't move again.
[2019-03-08 10:46] VITALS: BP 164/92; PULSE 95; RESP 16; TEMP 36.6; O2SAT 99
--- NOTE | 2019-03-08 10:57 | ONC.PN ---
PN -Subjective Interval history: HEMATOLOGY/ONCOLOGY PROGRESS NOTE DATE OF SERVICE: November 17, 2017 PATIENT NAME: RADHA MCDOWELL DATE OF : 1975 PCP: Diagnosis: CML reportedly diagnosed 11 years ago in [place], [place]. Initially managed by Dr. Maurice and later transitioning here to Dr. Leger. Previous treatment: His previously been on several different tyrosine kinase inhibitors but has most recently been on Gleevec 300 mg daily. INTERVAL HISTORY: The patient is a 42-year-old man who returns today for follow-up. He has had a longstanding history of CML and has been on Gleevec 300 mg daily. Since his last visit here, he has been bothered by osteomyelitis on his foot. He was on a prolonged course of IV antibiotics and has recently transition to oral. He is taking 2 different antibiotics although he is not sure the names. He thinks that the wound is slowly healing but there still is an open area. During that time, he was off of his Gleevec for about 3 weeks but has since restarted. It still is causing some nausea but no vomiting. He has not noticed any edema. He has had some muscle cramps. He denies any unusual bleeding or bruising. He has not had any fevers but does have frequent chills and occasional night sweats. He is continue to follow with Infectious Disease in [place]. He did have an appointment with the carburetor specialist in [place] for possible insulin pump but did not go to that appointment. His past medical history is notable for history of diabetes, substance abuse and recurrent infections including diskitis and osteomyelitis. He has a history of MRSA pneumonia. - Patient Self-Reported Symptoms SR Constitution: Fatigue/Malaise SR ears, nose, mouth, throat issues: Ears ringing SR respiratory issues: Cough SR Cardiovascular issues: Dizzy/lightheaded SR Skin issues: Nail changes SR Gastrointestinal issues: Poor or no appetite, Nausea SR Genitourinary issues: Frequent urination SR Musculoskeletal issues: Muscle pain or cramps, Bone pain SR Neuro issues: Headache, Difficulty balancing SR Hematologic issues: Slow healing SR Endocrine issues: Excessive urination, Hot flashes Home Medications and Allergies Home Medications Medication Instructions Recorded Confirmed Type Syringes 1 syr MISCELLANEOUS DIRECTED 11/10/17 03/08/19 History imatinib [Gleevec] 300 mg PO QPM 12/16/17 03/08/19 History True Metrix test strips 0 strip .ROUTE .MEDSUPPLY 04/06/18 03/08/19 History BD U/F Hilda Pen Needle [id number] #100 each 06/13/18 03/08/19 Rx insulin lispro 100 unit/mL 1 - 12 unit SUBCUT TIDCC #1 ea 06/13/18 03/08/19 Rx subcutaneous pen insulin glargine 100 unit/mL (3 25 unit SUBCUT BID #15 ml 08/02/18 03/08/19 Rx mL) subcutaneous pen prochlorperazine maleate 10 mg PO Q6H PRN #30 tab 10/04/18 03/08/19 Rx [Compazine] L.acidoph-Lmarikag-B.bif-S.therm 1 ea PO TIDWM #90 tab 10/24/18 03/08/19 Rx [Bacid (L. acidophilus)] docusate sodium [DOK] 100 mg PO BID #60 cap 10/24/18 03/08/19 Rx oxycodone 10 mg PO Q6-12H PRN #15 tab 10/24/18 03/08/19 Rx ondansetron 4 mg PO QID PRN #30 tab 11/22/18 03/08/19 Rx True Metrix Glucose Test Strip #100 each NS 11/29/18 03/08/19 Rx True Metrix Blood Glucose Meter #1 ea 12/09/18 03/08/19 Rx lorazepam 1 mg PO BID PRN 30 Days #60 tab 02/28/19 03/08/19 Rx Allergies Allergy/AdvReac Type Severity Reaction Status Date / Time Penicillins [PENICILLINS] Allergy Severe Tongue Verified 10/19/18 12:54 swelling, hives adhesive Allergy Unknown PLASTIC Verified 10/19/18 12:54 TAPE latex [LATEX] Allergy Unknown Verified 10/19/18 12:54 Exam Vital signs: Vital Signs Temp Pulse Resp BP Pulse Ox 03/08/19 10:46 97.8 F 95 H 16 164/92 H 99 Intake and Output 03/07/19 03/08/19 03/08/19 23:59 07:59 15:59 Other: Weight 81.1 kg Patient Weight 03/08/19 23:59 Weight 81.1 kg - Constitutional positive no acute distress, positive average body habitus - Routine HEENT Exam Head: Present: normocephalic, atraumatic Eye: Present: EOMI, PERRL. Absent: conjunctival icterus, scleral injection ENT: Present: mucous membranes moist, oropharynx clear - Routine Neck Exam Present: supple. Absent: lymphadenopathy, thyromegaly - Routine Respiratory Exam Present: Clear to auscultation bilaterally. Absent: rales, stridor - Routine Cardiovascular Exam Present: RRR, S1, S2. Absent: murmur - Routine Abdominal Exam Present: soft, normoactive bowel sounds. Absent: tenderness, organomegaly, mass - Routine Extremities Exam Absent: cyanosis, clubbing, edema Comments: He does have a dressing on his right foot. - Routine Back/Spine Exam Back/Spine: Absent: vertebral tenderness - Routine Skin Exam Present: intact. Absent: petechiae, rash - Routine Neurological Exam Present: alert, oriented X3 - Routine Psychiatric Exam Present: normal affect, normal thought process Results - Labs Laboratory Last Values WBC 3.9 X10^3/uL (4.5-11.0) L 12/08/18 08:20 RBC 3.56 X10^6/uL (4.5-5.9) L 12/08/18 08:20 Hgb 10.9 g/dL (13.5-17.5) L 12/08/18 08:20 Hct 33.0 % (41-53) L 12/08/18 08:20 MCV 92.7 fL (80-100) 12/08/18 08:20 MCH 30.7 PG (26-34) 12/08/18 08:20 MCHC 33.2 % (30-36) 12/08/18 08:20 RDW 14.2 % (11.6-14.8) 12/08/18 08:20 Plt Count 80 X10^3/uL (150-400) L 12/08/18 08:20 Neut % (Auto) 79.5 % (50-75) H 12/08/18 08:20 Lymph % (Auto) 10.7 % (25-40) L 12/08/18 08:20 [place] % (Auto) 8.1 % (3-14) 12/08/18 08:20 Eos % (Auto) 1.2 % (2-4) L 12/08/18 08:20 Baso % (Auto) 0.5 % (0-2) 12/08/18 08:20 Neut # (Auto) 3100 /uL (1564-3336) 12/08/18 08:20 Lymph # (Auto) 400 /uL (1780-8091) L 12/08/18 08:20 [place] # (Auto) 300 /uL (0-900) 12/08/18 08:20 Eos # (Auto) 0 /uL (0-450) 12/08/18 08:20 Baso # (Auto) 0 /uL (0-100) 12/08/18 08:20 RBC Morphology Not Reportable 10/20/17 13:53 Anisocytosis 1+ H 10/20/17 13:53 Macrocytosis 1+ H 10/20/17 13:53 Sodium 137 mmol/L (137-145) 12/08/18 08:20 Potassium 4.5 mmol/L (3.4-5.1) 12/08/18 08:20 Chloride 99 mmol/L (98-107) 12/08/18 08:20 Carbon Dioxide 25 mmol/L (22-32) 12/08/18 08:20 BUN 7 mg/dL (9-20) L 12/08/18 08:20 Creatinine 1.30 mg/dL (0.66-1.25) H 12/08/18 08:20 Estimated GFR > 60.0 mL/min (>60) 12/08/18 08:20 BUN/Creatinine Ratio 5.4 (6-22) L 12/08/18 08:20 Glucose 356 mg/dL (70-100) H 12/08/18 08:20 Calcium 8.3 mg/dL (8.4-10.2) L 12/08/18 08:20 Total Bilirubin 0.6 mg/dL (0.2-1.3) 12/08/18 08:20 AST 36 IU/L (17-59) 12/08/18 08:20 ALT 24 IU/L (21-72) 12/08/18 08:20 Alkaline Phosphatase 119 U/L (38-126) 12/08/18 08:20 Total Protein 6.9 g/dL (6.3-8.2) 12/08/18 08:20 Albumin 3.9 g/dL (3.5-5.0) 12/08/18 08:20 Globulin 3.0 g/dL (1.7-4.1) 12/08/18 08:20 Albumin/Globulin Ratio 1.3 (1.0-2.8) 12/08/18 08:20 BCR/abl Source Blood 12/08/18 08:21 BCR/abl Prior Result Not given 12/08/18 08:21 BCR/abl1 to abl1 % Not Reportable 12/08/18 08:21 BCR/abl1 IS % 48.657 (0.000) H 12/08/18 08:21 BCR/abl1 Quant Interp See note 12/08/18 08:21 Ref Test (Refrig) Cancelled 12/08/18 08:20 - Imaging Additional studies: Procedures Biopsy of bone, other bones (07/01/14) Detoxification Services for Substance Abuse Treatment (09/20/16) Excision of Right Foot Tendon, Open Approach (10/19/18) Excisional debridement of wound, infection, or burn (12/23/13) Injection of tranquilizer (01/01/14) Injection or infusion of other therapeutic or prophylactic substance (01/01/14) Other endoscopy of small intestine (08/21/13) Transfusion of Nonautologous Platelets into Peripheral Vein, Percutaneous Approach (09/20/16) Transfusion of packed cells (07/01/14) Transfusion of platelets (06/10/14) Venous catheterization, not elsewhere classified (07/01/14) Assessment and Plan (1) CML (chronic myelocytic leukemia) Problem details: 42-year-old man with longstanding history of CML. Current visit: No Status: Acute He has been taking his Gleevec regularly and tolerating it with some difficulty. His white count was elevated at the end of January. This was a time when he had been off of his Gleevec. I did stress the importance of staying on the medication. He will try and be more regular in taking it. He will return to clinic in about 3 months for follow-up with repeat labs as well as bcr/ABL transcripts. He has been taking some lorazepam which seems to help his nausea and I think helped some stay on the Gleevec more regularly. He will continue to follow primary physician and Infectious Disease regarding his osteomyelitis and diabetes.
--- NOTE | 2019-03-15 11:31 | PC.NURSE ---
[facility]
--- NOTE | 2019-03-22 10:15 | PC.NURSE ---
Gleevec RX resent to [facility] at [phone]. According to Haley it needed to to be sent to [facility], not [facility].
--- NOTE | 2019-03-23 11:06 | ONC.SCHED ---
Returned call to patient's mom to give us a call back regarding Gleevec prescription.
--- NOTE | 2019-03-28 16:55 | ONC.SCHED ---
Submitted auth for Imatinib (Gleevec) with clinical notes per insurance company. Took a long time on the phone to figure out what Duncan needed. Waiting on approval/auth for the oral chemo med.
--- NOTE | 2019-03-30 13:18 | ONC.SCHED ---
Patient's mom called about the prior auth on Imatinib and so I called to check the status and it looks like it's being review today. Duncan cheek said that a decision should be made by end of day today.
--- NOTE | 2019-05-01 15:25 | PC.NURSE ---
PATIENT INFORMED PER TELEPHONE THAT [facility] READY FOR [facility].
--- NOTE | 2019-05-31 13:52 | PC.NURSE ---
RX PROFESSOR OF FAMILY MEDICINE: PATIENT INFORMED THAT [facility] RX READY FOR PICKUP AT [facility].
--- NOTE | 2019-09-19 15:26 | PC.NURSE ---
Spoke with pt over the phone; pt informs this technical writer that he is transferring his care to Dr. Noel at [facility]. Will notify schedulers to cancel appt. This RN called and spoke with the WILL Gann (Dr. Bauer's triage nurse) and notified her of pt's transfer of care and that he did pickling solution maker a RX for Ativan here yesterday. According to [facility] pt missed first appointment at their facility.
--- NOTE | 2019-10-03 08:55 | PC.NURSE ---
Addendum entered by Jose Manuel Guallpa R.N. 10/09/19 14:48: Spoke to [facility] Triage today, pt has been seen at [facility]. Original Note: TRANSFERRING CARE TO [facility]. SPOKE TO PATIENT TODAY TO ENSURE HE HAD ENOUGH MEDICATIONS TO BRIDGE THE CARE TRANSFER. PT VERBALIZED HE NEEDED LORAZEPAM, AND CONFIRMED HE HAD ENOUGH GLEEVAC TILL HIS APPOINTMENT AT [facility]. PT WAS TOLD TO CONTACT THE CLINIC IF HE NEEDED MEDICATIONS UNTIL HIS CARE HAS BEEN TRANSFERRED, PT VERBALIZED UNDERSTANDING.
--- NOTE | 2019-11-08 10:26 | ONC.MSW ---
Description: T/C re: pt seeking benzodiazepines Activity: This former patient of Dr. Camarena called seeking refills on his previously prescribed lorazapam, even though he is now a patient of [facility]. This patient is well known to our clinic for a long hx of non-compliance with treatment, and has a hx of seeking opiods and benzos from multiple hospitals and providers. His primary care doctor, whom he hasn't seen, refused to provide him with his multiple requests for this, as has the multiple times he has presented at the ER. He also has chronic ETOH addiction, and demonstrated high alcohold levels during his last ED visit on 10/22/19. SIEVE MAKER called him back and instructed him that we will NOT be providing him with any medication refills, and that he need's to go to to his primary care doctor. He expressed understanding. SIEVE MAKER updated both the Oncology Customer Field Representative and the Dr. Mistry, the Oncologist on for today.
== END ==
PROVIDERS: Nurse Practitioner Gerontology; Family Provider Family Medicine; PCP Family Medicine
DX: C92.10 Chronic myeloid leukemia, BCR/ABL-positive, not having achieved remission (principal); E11.69 Type 2 diabetes mellitus with other specified complication; M86.9 Osteomyelitis, unspecified; F19.21 Other psychoactive substance dependence, in remission; Z79.4 Long term (current) use of insulin
CPT/HCPCS: 36415; 80053; 80061; 81206; 81207; 82043; 82570; 83036; 85025; 91065; 99214; 99215

== ENCOUNTER 2019-04-23 07:42 | Emergency (ER) | payer OTHER, MEDICAID, SELFPAY ==
[2019-04-23] VITALS (10 sets, daily range): BP systolic 104–118; BP diastolic 74–80; PULSE 108–126; RESP 16–20; TEMP 36.9; O2SAT 93–97; BMI 22.4
--- NOTE | 2019-04-23 07:52 | DI.RAD.S_ITS ---
PROCEDURE: XR CHEST 2V INDICATIONS: cough TECHNIQUE: 2 views of the chest were acquired. COMPARISON: [facility], , XR CHEST 1V, 02/09/2019, 22:45. FINDINGS: Surgical changes and devices: Postoperative changes of the lower cervical spine are present. Lungs and pleura: Lungs are clear. No pleural effusions or pneumothorax. Mediastinum: Mediastinal contours are normal. Heart size is normal. Bones and chest wall: No suspicious bony abnormalities. Soft tissues appear unremarkable. IMPRESSION: Stable chest. No acute cardiopulmonary process is evident. Dictated by: Moshe Shaw M.D. on 04/23/2019 at 7:19 Approved by: Moshe Shaw M.D. on 04/23/2019 at 7:20
--- NOTE | 2019-04-23 07:56 | ED_ITS ---
HPI - URI/Sore Throat General Chief Complaint: Upper Respiratory Symptoms Stated Complaint: Back pain and sore throat Time Seen by Provider: 04/23/19 07:52 Source: patient Mode of arrival: EMS Limitations: no limitations History of Present Illness HPI Narrative: Patient comes emergency department complaining of sore throat, cough, and vomiting for the last 4 days. He states that he has not been taking his insulin because he has not been keeping much down, due to his sore throat. Patient denies fevers. He states he got dizzy and fell several days ago and twisted his back. He states he also bumped against the seat in his shower. Patient states he has been able to ambulate but that his back hurts. Patient denies any dysuria. He states that he has had left upper quadrant abdominal pain and nausea. He states that he has not had any alcohol in the last few days. He states he has been exposed to various young family members who have had similar illnesses, and that he recently got his influenza Pneumovax shots. No other complaints at this time. Related Data Home Medications Medication Instructions Recorded Confirmed Syringes 1 syr MISCELLANEOUS DIRECTED 11/10/17 03/08/19 True Metrix test strips 0 strip .ROUTE .MEDSUPPLY 04/06/18 03/08/19 Previous Rx's Medication Instructions Recorded BD U/F Hilda Pen Needle [id number] #100 each 06/13/18 insulin lispro 100 unit/mL 1 - 12 unit SUBCUT TIDCC #1 ea 06/13/18 subcutaneous pen insulin glargine 100 unit/mL (3 25 unit SUBCUT BID #15 ml 08/02/18 mL) subcutaneous pen prochlorperazine maleate 10 mg PO Q6H PRN #30 tab 10/04/18 [Compazine] L.acidoph-L.bulg-B.bif-S.therm 1 ea PO TIDWM #90 tab 10/24/18 [Bacid (L. acidophilus)] docusate sodium [DOK] 100 mg PO BID #60 cap 10/24/18 oxycodone 10 mg PO Q6-12H PRN #15 tab 10/24/18 ondansetron 4 mg PO QID PRN #30 tab 11/22/18 True Metrix Glucose Test Strip #100 each NS 11/29/18 True Metrix Blood Glucose Meter #1 ea 12/09/18 imatinib [Gleevec] 300 mg PO QPM #90 tab 03/21/19 lorazepam 1 mg PO BID PRN 30 Days #60 tab 04/04/19 alum-mag hydroxide-simeth [Maalox 5 ml PO QID PRN #355 ml 04/23/19 Maximum Strength] lorazepam [Ativan] 0.5 mg PO TID PRN #6 tab 04/23/19 ondansetron 4 mg PO Q6H #12 tab 04/23/19 Allergies Allergy/AdvReac Type Severity Reaction Status Date / Time Penicillins [PENICILLINS] Allergy Severe Tongue Verified 10/19/18 12:54 swelling, hives adhesive Allergy Unknown PLASTIC Verified 10/19/18 12:54 TAPE latex [LATEX] Allergy Unknown Verified 10/19/18 12:54 Review of Systems Constitutional Constitutional: Denies chills, Denies fatigue, Denies fever(s), Denies frequent falls, Denies lethargy and Denies weakness Eyes Eyes: Denies change in vision, Denies eye discharge, Denies irritation and Denies loss of vision ENT Ears, Nose, Mouth, and Throat: Denies change in voice, Denies dizziness, Denies neck pain, Denies sore throat and Denies throat swelling Comments: Rhinorrhea Cardiovascular Cardiovascular: Denies chest pain, Denies irregular heart rhythm, Denies lighthe adedness, Denies palpitations, Denies dyspnea, Denies dyspnea on exertion and Denies orthopnea Respiratory Respiratory: Reports cough, Denies dyspnea, Denies dyspnea on exertion and Denies wheezing Comments: Rhinorrhea Gastrointestinal Gastrointestinal: Reports abdominal pain, Denies change in bowel habits, Denies diarrhea, Reports nausea and Reports vomiting Genitourinary Genitourinary: Denies hematuria, Denies flank pain, Denies urinary incontinence and Denies urinary urgency Musculoskeletal Musculoskeletal: Reports back pain, Denies muscle weakness, Denies neck pain, Denies numbness and Denies tingling Integumentary/Breasts Skin/Breast: Denies pruritus, Denies erythema, Denies rash and Denies wounds Neurologic Neurologic: Denies behavioral changes, Denies confusion, Denies dizziness, Denies frequent falls, Denies loss of vision, Denies numbness, Denies tingling and Denies weakness Psychiatric Psychiatric: Denies anxiety, Denies behavioral changes, Denies confusion, Denies depression, Denies homicidal ideation and Denies suicidal ideation Endocrine Endocrine: Denies fatigue, Denies flushing and Denies palpitations Hematologic/Lymphatic Hematologic/Lymphatic: Denies easy bruising Allergic/Immunologic Allergic/Immunologic: Denies urticaria, Denies throat swelling and Denies wheezing Patient History Medical History Alcoholism (Acute) CML (chronic myelocytic leukemia) (Acute) Insulin dependent diabetes mellitus (Acute) Thrombocytopenia (Acute) Family History Grandfather Diabetes mellitus Mother Cancer Social History household members: none Smoking Status: Former smoker alcohol intake: current Smoking Status: Former smoker alcohol intake frequency: a few times a week Alcohol type: beer Substance Use Type: does not use Exam Initial Vital Signs Initial Vital Signs: Vital Signs Temperature 98.4 F 04/23/19 07:45 Pulse Rate 126 H 04/23/19 07:45 Respiratory Rate 20 04/23/19 07:45 Blood Pressure 104/74 04/23/19 07:45 Pulse Oximetry 93 04/23/19 07:45 Const General: cooperative and well developed Nutritional Appearance: well nourished [facility] Head: normocephalic and atraumatic Ears: external ears normal Nose: external nose normal and No nasal discharge Face and sinus: face symmetric and No dry mucous membranes Mouth: oral mucosae normal and moist mucous membranes Teeth and gingiva: dentition normal Throat: tonsils normal and uvula midline Eyes General: appearance normal, both eyes and all related structures Eyelids: eyelids normal Conjunctivae: conjunctivae normal Sclera: sclerae normal Pupils: PERRL EOM: EOM intact bilaterally Neck Neck: normal visual inspection, trachea midline, No lymphadenopathy, No midline deformity and No JVD Lymphatic: No lymphedema Chest Chest: normal inspection of the chest Resp Effort & Inspection: normal respiratory effort, able to speak in complete sentences, no respiratory distress and no use of accessory muscles Auscultation: clear to auscultation bilaterally, no rales, no rhonchi and no wheezes Cardio Rate: regular rate Rhythm: regular rhythm Heart Sounds: no click, no gallops, no murmurs and no rubs Pulses: normal peripheral pulses GI Inspection: non-distended Palpation: soft, no hepatosplenomegaly, No guarding, No pulsatile mass and tender (Left upper quadrant, mild) Back/Spine/Pelvis Back: No CVA tenderness Cervical Spine: cervical ROM normal and No pain with cervical ROM Thoracic/Lumbar Spine: thoracic and lumbar spine normal to inspection Other: Patient has mild tenderness of his bilateral paraspinal musculature in the inferior lumbar area. Skin General: no rashes or lesions noted, No jaundice and No petechiae Neuro General: alert, awake, oriented x3, moves all extremities and no focal motor deficits Cranial Nerves: CN's II-XI intact bilaterally Cognition: normal cognition Speech: speech normal Gait: other (Patient has a stiff, but steady, gait) Extrem General: full ROM Psych Appearance: well kempt Mental Status: mental status grossly normal Attitude: cooperative Thought Content: normal and suicidality Judgment: judgment good Course Course Course Narrative: Patient was treated with IV fluids, Zofran and a 0.5 mg of Dilaudid, and worked up with labs, chest x-ray, influenza and strep tests. Patient's workup was negative. He complained of feeling like he was withdrawing from alcohol, so he was given 260 mg of phenobarbital and a mg of Ativan. I felt the patient was stable for discharge home. He did not show signs of delirium tremens and was overall feeling better. He was given a prescription for half a mg of Ativan t.i.d. for the next 2 days. We've discussed home management of his symptoms, as well as the usual indications for return. Orders Ordered: Discontinued Medications Hydromorphone HCl (Dilaudid) 0.5 mg IV NOW ONE Stop: 04/23/19 07:53 Last Admin: 04/23/19 08:27 Dose: 0.5 mg Documented by: SHAYY Hydromorphone HCl (Dilaudid) 0.5 mg IV NOW ONE Stop: 04/23/19 10:35 Last Admin: 04/23/19 11:07 Dose: 0.5 mg Documented by: MEISENAmadou Sodium Chloride (Normal Saline 0.9%) 1,000 mls @ 1,000 mls/hr IV BOLUS ONE Stop: 04/23/19 08:51 Last Infusion: 04/23/19 10:36 Dose: 0 mls/hr Documented by: Admin: 04/23/19 08:27 Dose: 1,000 mls/hr Documented by: SHAYY Lorazepam (Ativan) 1 mg IV NOW ONE Stop: 04/23/19 11:38 Last Admin: 04/23/19 11:57 Dose: 1 mg Documented by: ARISTIDES Ondansetron HCl (Zofran) 4 mg IV NOW ONE Stop: 04/23/19 07:53 Last Admin: 04/23/19 08:27 Dose: 4 mg Documented by: SHAYY Phenobarbital (Phenobarbital) 260 mg IV NOW ONE Stop: 04/23/19 11:38 Last Admin: 04/23/19 11:57 Dose: 260 mg Documented by: ARISTIDES Vital Signs Vital signs: Vital Signs - 8 hr 04/23/19 12:00 04/23/19 12:32 Pulse Rate 112 H 113 H Respiratory Rate 16 Blood Pressure [Left Arm] 118/79 MDM - URI/Sore Throat Medical Records Attestation: I reviewed the patient's medical records. Lab Data Attestation: I reviewed the patient's lab results. Result diagrams: 04/23/19 07:40 04/23/19 07:40 Labs: Lab Results 04/23/19 04/23/19 04/23/19 Range/Units 07:40 07:40 07:40 WBC 7.6 (4.5-11.0) X10^3/uL RBC 3.76 L (4.5-5.9) X10^6/uL Hgb 12.7 L (13.5-17.5) g/dL Hct 37.4 L (41-53) % MCV 99.4 (80-100) fL MCH 33.8 (26-34) PG MCHC 34.0 (30-36) % RDW 15.8 H (11.6-14.8) % Plt Count 45 L (150-400) X10^3/uL Neut % (Auto) 80.2 H (50-75) % Lymph % (Auto) 10.6 L (25-40) % [place] % (Auto) 7.9 (3-14) % Eos % (Auto) 0.6 L (2-4) % Baso % (Auto) 0.7 (0-2) % Neut # (Auto) 6100 (2059-1302) /uL Lymph # (Auto) 800 L (1507-0446) /uL [place] # (Auto) 600 (0-900) /uL Eos # (Auto) 0 (0-450) /uL Baso # (Auto) 100 (0-100) /uL Sodium 139 (137-145) mmol/L Potassium 4.8 (3.4-5.1) mmol/L Chloride 98 (98-107) mmol/L Carbon Dioxide 24 (22-32) mmol/L BUN 18 (9-20) mg/dL Creatinine 1.20 (0.66-1.25) mg/dL Estimated GFR > 60.0 (>60) mL/min BUN/Creatinine Ratio 15.0 (6-22) Glucose 266 H (70-100) mg/dL Calcium 8.6 (8.4-10.2) mg/dL Total Bilirubin 1.9 H (0.2-1.3) mg/dL AST 220 H (17-59) IU/L ALT 86 H (<50) IU/L Alkaline Phosphatase 141 H (38-126) U/L Total Protein 8.0 (6.3-8.2) g/dL Albumin 4.8 (3.5-5.0) g/dL Globulin 3.2 (1.7-4.1) g/dL Albumin/Globulin Ratio 1.5 (1.0-2.8) Lipase < 10 L (23-300) U/L Influenza A (RT-PCR) (NEGATIVE) Influenza B (RT-PCR) (NEGATIVE) 04/23/19 Range/Units 08:35 WBC (4.5-11.0) X10^3/uL RBC (4.5-5.9) X10^6/uL Hgb (13.5-17.5) g/dL Hct (41-53) % MCV (80-100) fL MCH (26-34) PG MCHC (30-36) % RDW (11.6-14.8) % Plt Count (150-400) X10^3/uL Neut % (Auto) (50-75) % Lymph % (Auto) (25-40) % [place] % (Auto) (3-14) % Eos % (Auto) (2-4) % Baso % (Auto) (0-2) % Neut # (Auto) (4073-5483) /uL Lymph # (Auto) (5365-8997) /uL [place] # (Auto) (0-900) /uL Eos # (Auto) (0-450) /uL Baso # (Auto) (0-100) /uL Sodium (137-145) mmol/L Potassium (3.4-5.1) mmol/L Chloride (98-107) mmol/L Carbon Dioxide (22-32) mmol/L BUN (9-20) mg/dL Creatinine (0.66-1.25) mg/dL Estimated GFR (>60) mL/min BUN/Creatinine Ratio (6-22) Glucose (70-100) mg/dL Calcium (8.4-10.2) mg/dL Total Bilirubin (0.2-1.3) mg/dL AST (17-59) IU/L ALT (<50) IU/L Alkaline Phosphatase (38-126) U/L Total Protein (6.3-8.2) g/dL Albumin (3.5-5.0) g/dL Globulin (1.7-4.1) g/dL Albumin/Globulin Ratio (1.0-2.8) Lipase (23-300) U/L Influenza A (RT-PCR) Flu a negative (NEGATIVE) Influenza B (RT-PCR) Flu b negative (NEGATIVE) Point of Care Testing Rapid Strep A Negative Discharge Plan Departure Patient Disposition: Home Clinical Impression: Acute viral syndrome Discharge Date/Time: 04/23/19 13:14 Instructions: DI for Viral Pharyngitis, DI for Viral Syndrome, DI for Vomiting -- Adult Activity Restrictions/Additional Instructions: Your prescriptions have been electronically transmitted to [facility] in [place]. Your labs show evidence of some liver stress from your alcohol intake, and your blood sugar is somewhat elevated. Otherwise, there is no evidence of a bacterial infection causing your symptoms, and most likely, you have 1 of the many viruses that are going around right now. You may not have anything that contains Tylenol or other medications that will stress your liver. Prescriptions: New ondansetron 4 mg tablet,disintegrating 4 mg PO Q6H Qty: 12 RF: 0 Maalox Maximum Strength 400-400-40 mg/5 mL suspension 5 ml PO QID PRN (Reason: indigestion) Qty: 355 RF: 0 lorazepam [Ativan] 0.5 mg tablet 0.5 mg PO TID PRN (Reason: alcohol withdrawal) Qty: 6 RF: 0 No Action (DME) BD U/F Hilda Pen Needle [id number] 0 .Route .MEDSUPPLY Qty: 100 RF: 3 Humalog KwikPen Insulin 100 unit/mL insulin pen 1 - 12 unit subcut TIDCC Qty: 1 RF: 3 Lantus Solostar U-100 Insulin 100 unit/mL (3 mL) insulin pen 25 unit SUBCUT BID Qty: 15 RF: 3 (DME) True Metrix Glucose Test Strip strip See Dose Instructions .ROUTE .MEDSUPPLY Qty: 100 RF: 1 (DME) True Metrix Blood Glucose Meter Qty: 1 RF: 0 True Metrix test strips strip 0 strip .Route .MEDSUPPLY RF: 0 prochlorperazine maleate [Compazine] 10 mg Tablet 10 mg PO Q6H PRN (Reason: Nausea) Qty: 30 RF: 2 ondansetron 4 mg tablet,disintegrating 4 mg PO QID PRN (Reason: nausea and vomiting) Qty: 30 RF: 3 imatinib [Gleevec] 100 MG tablet 300 mg PO QPM Qty: 90 RF: 11 lorazepam 1 mg Tablet 1 mg PO BID PRN (Reason: Nausea) 30 Days Qty: 60 RF: 0 Syringes 1 syr miscellaneous DIRECTED RF: 0 Bacid 1 billion cell- 250 mg Tablet 1 ea PO TIDWM Qty: 90 RF: 0 docusate sodium [DOK] 100 mg Capsule 100 mg PO BID Qty: 60 RF: 0 oxycodone 5 mg Tablet 10 mg PO Q6-12H PRN (Reason: Pain, Moderate (4-6)) Qty: 15 RF: 0 Referrals: [facility] [Provider Group]
[2019-04-23 07:59] LABS: Add Manual Diff / Slide Review NO; Basophils Absolute Auto 100 /uL (0-100); Basophils Percent Auto 0.7 % (0-2); Eosinophils Absolute Auto 0 /uL (0-450); Eosinophils Percent Auto 0.6 % (2-4); Hematocrit 37.4 % (41-53); Hemoglobin 12.7 g/dL (13.5-17.5); Lymphocytes Absolute Auto 800 /uL (1100-4500); Lymphocytes Percent Auto 10.6 % (25-40); Mean Corpuscular Hemoglobin 33.8 PG (26-34); Mean Corpuscular Volume 99.4 fL (80-100); Monocytes Absolute Auto 600 /uL (0-900); Monocytes Percent Auto 7.9 % (3-14); Neutrophils Absolute Auto 6100 /uL (1500-7000); Neutrophils Percent Auto 80.2 % (50-75); Platelet Count 45 X10^3/uL (150-400); Red Blood Cell Count 3.76 X10^6/uL (4.5-5.9); Red Cell Distribution Width 15.8 % (11.6-14.8); White Blood Cell Count 7.6 X10^3/uL (4.5-11.0)
[2019-04-23 08:24] LABS: Alanine Aminotransferase 86 IU/L (<50); Albumin 4.8 g/dL (3.5-5.0); Albumin Globulin Ratio 1.5 (1.0-2.8); Alkaline Phosphatase 141 U/L (38-126); Aspartate Aminotransferase 220 IU/L (17-59); Bilirubin Total 1.9 mg/dL (0.2-1.3); Blood Urea Nitrogen 18 mg/dL (9-20); Calcium 8.6 mg/dL (8.4-10.2); Carbon Dioxide 24 mmol/L (22-32); Chloride 98 mmol/L (98-107); Estimated Glomerular Filt Rate > 60.0 mL/min (>60); Globulin 3.2 g/dL (1.7-4.1); Glucose 266 mg/dL (70-100); HEMOLYSIS 100 (0-50); Potassium 4.8 mmol/L (3.4-5.1); Sodium 139 mmol/L (137-145)
[2019-04-23] MEDS: HYDROMORPHONE 0.5 MG INJ IV ×2 (08:27→11:07)
[2019-04-23] MEDS: ONDANSETRON 4 MG/2 ML INJ IV (08:27)
[2019-04-23] MEDS: SODIUM CHLORIDE 0.9% 1,000 ML 1000 ML IV (08:27)
[2019-04-23 09:12] LABS: Influenza A - CEPHEID Flu A NEGATIVE (NEGATIVE); Influenza B - CEPHEID Flu B NEGATIVE (NEGATIVE)
--- NOTE | 2019-04-23 11:08 | PC.NURSE ---
states, last drink couple of days ago, requesting admission due to dt. +headache, denies nausea/vomiting,-sweaty, denies audio/visual
[2019-04-23 11:38] LABS: Lipase < 10 U/L (23-300)
[2019-04-23] MEDS: PHENobarbital 65 MG/ML VIAL 260 MG IV (11:57)
[2019-04-23] MEDS: LORazepam 2 MG/ML INJ 1 MG IV (11:57)
== END 2019-04-23 13:14 | disposition home or self-care (01) ==
PROVIDERS: Emergency Provider Emergency Medicine
DX: B34.9 Viral infection, unspecified (principal); R11.0 Nausea; E11.8 Type 2 diabetes mellitus with unspecified complications; Z79.4 Long term (current) use of insulin
CPT/HCPCS: 71046; 80053; 83690; 85025; 87502; 87880; 96361; 96374; 96375; 96376; 99284; J1170; J2060; J2405; J2560

== ENCOUNTER → 2019-06-14 09:18 | Outpatient (CLI) | payer OTHER, MEDICAID, SELFPAY ==
--- NOTE | 2019-06-14 09:26 | DI.RAD.S_ITS ---
PROCEDURE: XR FOOT RT MIN 3V INDICATIONS: RT FOOT/HEEL ULCER TECHNIQUE: 3 views of the foot were acquired. COMPARISON: [facility], MR, MR FOOT RT WO/W CON, 12/01/2018, 8:04. [facility], CR, XR FOOT RT MIN 3V, 11/05/2018, 9:13. [facility], CR, XR FOOT RT MIN 3V, 10/19/2018, 13:21. FINDINGS: Bones: No fractures or dislocations. No suspicious bony lesions that would suggest presence of malignancy but there is irregularity along the lateral border of the base of the fifth proximal phalanx and the lateral border of the adjacent fifth metatarsal head. This is in an area of prior appearance infection/osteomyelitis by MR scanning without and with contrast 12/01/18. There is a cutaneous ulceration over that area seen on the current plain film imaging. The clinical history indicates the abnormality is at the right heel were ulceration is described. No calcaneal region soft tissue or osseous abnormality is seen. The note is made of a stable appearing peripherally calcified structure within the medullary space of the distal tibial metadiaphyseal junction, benign in appearance Soft tissues: No tibiotalar joint effusion. Achilles tendon appears normal. Soft tissue swelling appears worsened over the forefoot. IMPRESSION: Please correlate clinically. The clinical history provided indicates heel ulceration concern. Plain film images raise concern for soft tissue ulceration and osteomyelitis at the lateral border of the fifth metatarsal head and the adjacent proximal phalanx of the fifth digit. Given the presence of soft tissue swelling over the forefoot this area remains a significant concern. No calcaneal region abnormality is seen. Dictated by: Tim Franks M.D. on 06/14/2019 at 12:09 Approved by: Tim Franks M.D. on 06/14/2019 at 12:22
== END ==
PROVIDERS: PCP Internal Medicine; Referring Provider Podiatrist; Visit Provider Podiatrist
DX: L97.412 Non-pressure chronic ulcer of right heel and midfoot with fat layer exposed (principal)
CPT/HCPCS: 73630

== ENCOUNTER 2019-09-08 21:06 | Emergency (ER) | payer OTHER, MEDICAID, SELFPAY ==
[2019-09-08 21:23] VITALS: BP 142/81; PULSE 85; RESP 14; TEMP 36.3; O2SAT 100; BMI 26.6
[2019-09-08 21:43] LABS: Alanine Aminotransferase 24 IU/L (<50); Albumin 3.7 g/dL (3.5-5.0); Albumin Globulin Ratio 1.1 (1.0-2.8); Alkaline Phosphatase 115 U/L (38-126); Aspartate Aminotransferase 51 IU/L (17-59); BUN Creatinine Ratio 13.2 (6-22); Bilirubin Total 0.3 mg/dL (0.2-1.3); Blood Urea Nitrogen 21 mg/dL (9-20); Carbon Dioxide 18 mmol/L (22-32); Chloride 106 mmol/L (98-107); Estimated Glomerular Filt Rate 47.8 mL/min (>60); Globulin 3.5 g/dL (1.7-4.1); Glucose 184 mg/dL (70-100); HEMOLYSIS < 15 (0-50); Sodium 134 mmol/L (137-145); Total Protein 7.2 g/dL (6.3-8.2)
[2019-09-08 21:47] LABS: Potassium 5.5 mmol/L (3.4-5.1)
--- NOTE | 2019-09-08 22:09 | PC.NURSE ---
pt asking for coffee. given. pt states he thinks his sugar is low. given milk to drink. asking for something else. given apple juice. pt states he missed his oxycodone tonight and needs it for pain. advised he needs to be assessed by the Dr before being given pain medication.
[2019-09-08 22:29] VITALS: BP 143/86; PULSE 83; RESP 13; O2SAT 99
[2019-09-08 22:49] LABS: Bacteria Urine None Seen; RBC Urine None Seen (0-5/HPF); WBC Urine None Seen (0-5/HPF)
[2019-09-08 22:51] LABS: Appearance Urine UA CLEAR; Bilirubin Urine UA NEGATIVE (NEGATIVE); Color Urine UA YELLOW; Glucose Urine UA NEGATIVE (Negative); Ketones Urine UA NEGATIVE (NEGATIVE); Leukocyte Esterase Urine UA NEGATIVE (NEGATIVE); Nitrite Urine UA NEGATIVE (Negative); Occult Blood Urine UA NEGATIVE (Negative); Protein Urine UA NEGATIVE (Negative); Urobilinogen Urine UA 0.2 E.U./dL (0.2); pH Urine UA 5.5 (4.5-8.0)
[2019-09-08 23:00] VITALS: BP 111/67; PULSE 88; RESP 15
[2019-09-08 23:00] LABS: Culture Indicated Urine Cult Not Indicated; Urine Comments Microscopic Normal
--- NOTE | 2019-09-08 23:17 | ED_ITS ---
HPI - Recheck/Abnormal Lab/Rx General Chief Complaint: Recheck/Abnormal Lab/Rx Stated Complaint: BLOOD WORK CONCERNS OF CALCIUM LEVELS ARE HIGH Time Seen by Provider: 09/08/19 23:14 Source: patient Mode of arrival: Ambulatory Limitations: no limitations History of Present Illness HPI narrative: The patient receiving chemotherapy daily for leukemia. For last 2 nights he has had a lot discomfort. He is urinating frequently. He had cough last night. He has no chest pain or dyspnea. He has had no fever. He has no cough now. His appetite is reasonably okay, but he has not been drinking much because of the polyuria. He is on medication for diabetes. He has peripheral edema, he has no history of CHF. He is not on diuretics. He is here now due to hyperkalemia. Labs today revealed a potassium level of 6.5. He is having no palpitations, no weakness, no dizziness. He has no symptoms of near syncope. Glucose this evening in the ER was 5.5. I discussed managing the potassium while here. Patient recognizes 5.5 is a noncritical level, he feels no further management necessary. He would like to go home at this time. He is oriented, obviously somewhat knowledgeable of these lab values. Related Data Home Medications Medication Instructions Recorded Confirmed Syringes 1 syr MISCELLANEOUS DIRECTED 11/10/17 03/08/19 True Metrix test strips 0 strip .ROUTE .MEDSUPPLY 04/06/18 03/08/19 Previous Rx's Medication Instructions Recorded BD U/F Hilda Pen Needle 28Be7ol #100 each 06/13/18 insulin lispro 100 unit/mL 1 - 12 unit SUBCUT TIDCC #1 ea 06/13/18 subcutaneous pen insulin glargine 100 unit/mL (3 25 unit SUBCUT BID #15 ml 08/02/18 mL) subcutaneous pen prochlorperazine maleate 10 mg PO Q6H PRN #30 tab 10/04/18 [Compazine] L.acidoph-L.bulg-B.bif-S.therm 1 ea PO TIDWM #90 tab 10/24/18 [Bacid (L. acidophilus)] docusate sodium [DOK] 100 mg PO BID #60 cap 10/24/18 oxycodone 10 mg PO Q6-12H PRN #15 tab 10/24/18 ondansetron 4 mg PO QID PRN #30 tab 11/22/18 True Metrix Glucose Test Strip #100 each NS 11/29/18 True Metrix Blood Glucose Meter #1 ea 12/09/18 alum-mag hydroxide-simeth [Maalox 5 ml PO QID PRN #355 ml 04/23/19 Maximum Strength] ondansetron 4 mg PO Q6H #12 tab 04/23/19 lorazepam 1 mg PO BID PRN #60 tab 07/24/19 imatinib [Gleevec] 300 mg PO QPM #90 tab 08/17/19 Allergies Allergy/AdvReac Type Severity Reaction Status Date / Time Penicillins [PENICILLINS] Allergy Severe Tongue Verified 09/08/19 21:23 swelling, hives adhesive Allergy Unknown PLASTIC Verified 09/08/19 21:23 TAPE latex [LATEX] Allergy Unknown Verified 09/08/19 21:23 Review of Systems Review of Systems ROS Unobtainable: All systems reviewed & are unremarkable except as noted in HPI and below Constitutional Constitutional: Denies chills, Reports fatigue, Denies fever(s) and Denies weakness Eyes Eyes: Denies blurry vision and Denies change in vision ENT Ears, Nose, Mouth, and Throat: Denies nasal congestion, Denies post nasal drip and Denies sore throat Cardiovascular Cardiovascular: Denies chest pain, Denies lightheadedness, Denies palpitations, Denies dyspnea, Denies dyspnea on exertion and Denies orthopnea Respiratory Respiratory: Denies cough, Denies dyspnea, Denies dyspnea on exertion and Denies wheezing Gastrointestinal Gastrointestinal: Denies abdominal pain, Denies change in bowel habits, Denies nausea and Denies vomiting Genitourinary Genitourinary: Denies dysuria Comments: Polyuria Musculoskeletal Musculoskeletal: Denies back pain, Denies muscle weakness, Denies numbness and Denies tingling Comments: Lower extremity edema Integumentary/Breasts Skin/Breast: Denies erythema, Denies rash and Denies wounds Neurologic Neurologic: Denies numbness, Denies tingling and Denies weakness Endocrine Endocrine: Reports fatigue and Denies palpitations Allergic/Immunologic Allergic/Immunologic: Denies wheezing Patient History Medical History Alcoholism (Acute) CML (chronic myelocytic leukemia) (Acute) Insulin dependent diabetes mellitus (Acute) Thrombocytopenia (Acute) Surgical History Status post appendectomy Family History Grandfather Diabetes mellitus Mother Cancer Social History household members: none Smoking Status: Former smoker alcohol intake: current Smoking Status: Former smoker alcohol intake frequency: a few times a week Alcohol type: beer Substance Use Type: does not use Exam Initial Vital Signs Initial Vital Signs: Vital Signs Temperature 97.3 F L 09/08/19 21:23 Pulse Rate 85 09/08/19 21:23 Respiratory Rate 14 09/08/19 21:23 Blood Pressure 142/81 H 09/08/19 21:23 Pulse Oximetry 100 09/08/19 21:23 Const General: cooperative and well developed Nutritional Appearance: well nourished HENMT Mouth: oral mucosae normal Throat: posterior oropharynx normal Eyes General: appearance normal, both eyes and all related structures Eyelids: eyelids normal Conjunctivae: conjunctivae normal Sclera: sclerae normal Pupils: PERRL EOM: EOM intact bilaterally Neck Neck: No JVD Chest Chest: normal inspection of the chest Resp Effort & Inspection: normal respiratory effort and able to speak in complete sentences Auscultation: clear to auscultation bilaterally, no rales, no rhonchi and no wheezes Cardio Rate: regular rate Rhythm: regular rhythm Heart Sounds: S1 normal, S2 normal, no click, no gallops, no murmurs and no rubs Pulses: normal peripheral pulses GI Inspection: non-distended Palpation: soft, no hepatosplenomegaly, No guarding, No pulsatile mass and No t ewa Auscultation: normal bowel sounds Back/Spine/Pelvis Back: No CVA tenderness Skin General: pallor Rashes: no rashes Neuro General: alert, oriented x3, gait normal and no focal motor deficits Speech: speech normal Extrem Other: 4+ bilateral lower extremity edema. Negative Homans sign bilaterally. Normal size pedis pulses. Course Course Course Narrative: The patient's labs were discussed. He tells me he was 6.5 earlier, he is now 5.5. He declined management of the potassium level, seem ingly understanding that is a safe level. He is advised to drink plenty of fluid, and recheck his potassium level in 2 days. Orders Ordered: ED Orders 09/08/19 21:20 CMP [Comprehensive Metabolic Panel] Stat 09/08/19 21:24 EKG-12 Lead Routine 09/08/19 22:44 Urinalysis and Microscopic Stat Vital Signs Vital signs: Vital Signs - 8 hr 09/08/19 21:23 09/08/19 22:29 09/08/19 23:00 Temperature 97.3 F L Pulse Rate 85 83 88 Respiratory Rate 14 13 15 Blood Pressure 142/81 H Blood Pressure [Left Arm] 143/86 H 111/67 Pulse Oximetry 100 99 MDM - Recheck/Abnormal Lab/Rx Lab Data Result diagrams: 09/08/19 21:20 Labs: Lab Results 09/08/19 09/08/19 Range/Units 21:20 22:44 Sodium 134 L (137-145) mmol/L Potassium 5.5 H (3.4-5.1) mmol/L Chloride 106 (98-107) mmol/L Carbon Dioxide 18 L (22-32) mmol/L BUN 21 H (9-20) mg/dL Creatinine 1.59 H (0.66-1.25) mg/dL Estimated GFR 47.8 L (>60) mL/min BUN/Creatinine Ratio 13.2 (6-22) Glucose 184 H (70-100) mg/dL Calcium 8.0 L (8.4-10.2) mg/dL Total Bilirubin 0.3 (0.2-1.3) mg/dL AST 51 (17-59) IU/L ALT 24 (<50) IU/L Alkaline Phosphatase 115 (38-126) U/L Total Protein 7.2 (6.3-8.2) g/dL Albumin 3.7 (3.5-5.0) g/dL Globulin 3.5 (1.7-4.1) g/dL Albumin/Globulin Ratio 1.1 (1.0-2.8) Urine Color Yellow Urine Appearance Clear Urine pH 5.5 (4.5-8.0) Ur Specific [place] 1.020 (1.000-1.035) Urine Protein Negative (Negative) Urine Glucose (UA) Negative (Negative) g/dL Urine Ketones Negative (NEGATIVE) Urine Occult Blood Negative (Negative) Urine Nitrate Negative (Negative) Urine Bilirubin Negative (NEGATIVE) Urine Urobilinogen 0.2 (0.2) E.U./dL Ur Leukocyte Esterase Negative (NEGATIVE) Urine RBC None seen (0-5/HPF) Urine WBC None seen (0-5/HPF) Urine Bacteria None seen (None) Ur Culture Indicated? Cult not indicated Micro UA Comment Microscopic normal ECG Data Attestation: I personally reviewed and interpreted this ECG as follows: (Normal sinus rhythm rate 86 beats per minute. Normal intervals. No ectopy. No acute ST T wave changes. Normal study.) Discharge Plan Departure Patient Disposition: Home Clinical Impression: Acute hyperkalemia, Leukemia Instructions: DI for Hyperkalemia Activity Restrictions/Additional Instructions: Drink plenty of fluids, stay well hydrated. Follow-up with your doctor to recheck her potassium level 2 days. Return the ER as necessary. Prescriptions: No Action (DME) BD U/F Hilda Pen Needle 51Ct7as 0 .Route .MEDSUPPLY Qty: 100 RF: 3 Humalog KwikPen Insulin 100 unit/mL insulin pen 1 - 12 unit subcut TIDCC Qty: 1 RF: 3 Lantus Solostar U-100 Insulin 100 unit/mL (3 mL) insulin pen 25 unit SUBCUT BID Qty: 15 RF: 3 (DME) True Metrix Glucose Test Strip strip See Dose Instructions .ROUTE .MEDSUPPLY Qty: 100 RF: 1 (DME) True Metrix Blood Glucose Meter Qty: 1 RF: 0 True Metrix test strips strip 0 strip .Route .MEDSUPPLY RF: 0 prochlorperazine maleate [Compazine] 10 mg Tablet 10 mg PO Q6H PRN (Reason: Nausea) Qty: 30 RF: 2 ondansetron 4 mg tablet,disintegrating 4 mg PO QID PRN (Reason: nausea and vomiting) Qty: 30 RF: 3 lorazepam 1 mg Tablet 1 mg PO BID PRN (Reason: nauseas) Qty: 60 RF: 0 imatinib [Gleevec] 100 MG tablet 300 mg PO QPM Qty: 90 RF: 11 Syringes 1 syr miscellaneous DIRECTED RF: 0 ondansetron 4 mg tablet,disintegrating 4 mg PO Q6H Qty: 12 RF: 0 Maalox Maximum Strength 400-400-40 mg/5 mL suspension 5 ml PO QID PRN (Reason: indigestion) Qty: 355 RF: 0 Bacid 1 billion cell- 250 mg Tablet 1 ea PO TIDWM Qty: 90 RF: 0 docusate sodium [DOK] 100 mg Capsule 100 mg PO BID Qty: 60 RF: 0 oxycodone 5 mg Tablet 10 mg PO Q6-12H PRN (Reason: Pain, Moderate (4-6)) Qty: 15 RF: 0 Referrals: Graciela Murphy MD [Primary Care Provider] -
[2019-09-08 23:38] VITALS: BP 111/67; PULSE 87; RESP 16; O2SAT 97
== END 2019-09-08 23:39 | disposition home or self-care (01) ==
PROVIDERS: Emergency Provider Emergency Medicine; PCP Internal Medicine
DX: E87.5 Hyperkalemia (principal); C95.90 Leukemia, unspecified not having achieved remission
CPT/HCPCS: 80053; 81001; 93005; 93010; 99281; 99283

== ENCOUNTER → 2019-09-30 12:55 | Outpatient (ROUT) | payer OTHER, SELFPAY ==
[2019-09-30 13:02] LABS: Add Manual Diff / Slide Review NO; Basophils Absolute Auto 0 /uL (0-100); Basophils Percent Auto 0.1 % (0-2); Eosinophils Absolute Auto 100 /uL (0-450); Eosinophils Percent Auto 0.8 % (2-4); Hematocrit 33.2 % (41-53); Hemoglobin 11.2 g/dL (13.5-17.5); Lymphocytes Absolute Auto 700 /uL (1100-4500); Lymphocytes Percent Auto 7.5 % (25-40); Mean Corpuscular HGB Conc 33.7 % (30-36); Mean Corpuscular Hemoglobin 32.2 PG (26-34); Mean Corpuscular Volume 95.8 fL (80-100); Monocytes Absolute Auto 500 /uL (0-900); Monocytes Percent Auto 4.6 % (3-14); Neutrophils Absolute Auto 8600 /uL (1500-7000); Platelet Count 94 X10^3/uL (150-400); Red Blood Cell Count 3.47 X10^6/uL (4.5-5.9); Red Cell Distribution Width 15.7 % (11.6-14.8); White Blood Cell Count 9.9 X10^3/uL (4.5-11.0)
== END ==
PROVIDERS: PCP Internal Medicine; Visit Provider Internal Medicine Infectious Disease
DX: M86.172 Other acute osteomyelitis, left ankle and foot (principal); M86.071 Acute hematogenous osteomyelitis, right ankle and foot; E11.621 Type 2 diabetes mellitus with foot ulcer
CPT/HCPCS: 85025

== ENCOUNTER 2019-10-22 19:04 | Emergency (ER) | payer OTHER, MEDICAID, SELFPAY ==
[2019-10-22 19:11] VITALS: BP 162/105; PULSE 113; RESP 24; TEMP 36.8; O2SAT 95; BMI 22.4
--- NOTE | 2019-10-22 19:32 | ED_ITS ---
HPI - Nausea/Vomiting/Diarrhea General Chief complaint: Nausea/Vomiting/Diarrhea Stated complaint: Not feeling well Time Seen by Provider: 10/22/19 19:11 Source: patient and EMS Mode of arrival: EMS Limitations: no limitations History of Present Illness HPI Narrative: Patient is a 43-year-old male with a history of CML currently taking oral chemotherapy medication here for evaluation of what he states his the fact that he has been out of his pain medication and benzodiazepine medication for the past 5 days. He states that it generally does not feel very well. Describes chest pain shortness of breath nausea and vomiting and pain and also anxiety. Patient states he does not have a primary provider. When I asked to prescribe these medications for him he states that it is his oncologist. When asked if he contacted his oncologist regarding the fact that he ran out of medicines he says that he has not. He states that he feels like he is ?going through DTs ? Related Data Home Medications Medication Instructions Recorded Confirmed Syringes 1 syr MISCELLANEOUS DIRECTED 11/10/17 03/08/19 True Metrix test strips 0 strip .ROUTE .MEDSUPPLY 04/06/18 03/08/19 Previous Rx's Medication Instructions Recorded BD U/F Hilda Pen Needle [id number] #100 each 06/13/18 insulin lispro 100 unit/mL 1 - 12 unit SUBCUT TIDCC #1 ea 06/13/18 subcutaneous pen insulin glargine 100 unit/mL (3 25 unit SUBCUT BID #15 ml 08/02/18 mL) subcutaneous pen prochlorperazine maleate 10 mg PO Q6H PRN #30 tab 10/04/18 [Compazine] L.acidoph-L.bulg-B.bif-S.therm 1 ea PO TIDWM #90 tab 10/24/18 [Bacid (L. acidophilus)] docusate sodium [DOK] 100 mg PO BID #60 cap 10/24/18 oxycodone 10 mg PO Q6-12H PRN #15 tab 10/24/18 ondansetron 4 mg PO QID PRN #30 tab 11/22/18 True Metrix Glucose Test Strip #100 each NS 11/29/18 True Metrix Blood Glucose Meter #1 ea 12/09/18 alum-mag hydroxide-simeth [Maalox 5 ml PO QID PRN #355 ml 04/23/19 Maximum Strength] ondansetron 4 mg PO Q6H #12 tab 04/23/19 imatinib [Gleevec] 300 mg PO QPM #90 tab 08/17/19 lorazepam 1 mg PO BID PRN #60 tab 09/18/19 Allergies Allergy/AdvReac Type Severity Reaction Status Date / Time Penicillins [PENICILLINS] Allergy Severe Tongue Verified 10/22/19 19:15 swelling, hives adhesive Allergy Unknown PLASTIC Verified 10/22/19 19:15 TAPE latex [LATEX] Allergy Unknown Verified 10/22/19 19:15 Review of Systems Constitutional Constitutional: Reports chills, Reports difficulty sleeping, Denies fever(s), R eports lethargy, Reports malaise, Reports poor appetite and Reports weakness Eyes Eyes: Denies change in vision ENT Ears, Nose, Mouth, and Throat: Reports dizziness Cardiovascular Cardiovascular: Reports chest pain, Reports lightheadedness and Reports dyspnea Respiratory Respiratory: Reports dyspnea Gastrointestinal Gastrointestinal: Reports diarrhea, Reports nausea and Reports vomiting Musculoskeletal Musculoskeletal: Reports arthralgias, Reports myalgias, Reports muscle cramps, Reports muscle weakness, Reports myalgias and Reports tingling Integumentary/Breasts Skin/Breast: Denies pruritus and Denies rash Neurologic Neurologic: Reports dizziness, Reports tingling and Reports weakness Patient History Medical History (Updated 10/23/19 @ 00:00 by ) Alcoholism (Acute) CML (chronic myelocytic leukemia) (Acute) Insulin dependent diabetes mellitus (Acute) Thrombocytopenia (Acute) Surgical History Status post appendectomy Family History Grandfather Diabetes mellitus Mother Cancer Social History household members: none Smoking Status: Former smoker alcohol intake: current Smoking Status: Former smoker alcohol intake frequency: a few times a week Alcohol type: beer Substance Use Type: does not use Exam Initial Vital Signs Initial Vital Signs: Vital Signs Temperature 98.3 F 10/22/19 19:11 Pulse Rate 113 H 10/22/19 19:11 Respiratory Rate 24 10/22/19 19:11 Blood Pressure 162/105 H 10/22/19 19:11 Pulse Oximetry 95 10/22/19 19:11 Const General: cooperative and disheveled Limitations: mental status not altered HENMT Head: normal to inspection and normocephalic Resp Effort & Inspection: normal respiratory effort Auscultation: clear to auscultation bilaterally Cardio Rate: regular rate Rhythm: regular rhythm GI Inspection: non-distended Palpation: soft Skin Lesions: no lesions Rashes: no rashes Neuro General: patient alert, patient awake and patient oriented x3 Speech: speech normal Extrem General: normal to inspection and capillary refill normal Psych Appearance: grossly normal and well kempt Course Orders Ordered: ED Orders 10/22/19 19:39 XR chest 1V Stat EKG-12 Lead Stat 10/22/19 19:40 Complete Blood Count AUTO DIFF Stat Comprehensive Metabolic Panel Stat Ethanol (ETOH) Stat Ketones (Beta-Hydroxybutyrate) Stat Lipase Stat Magnesium Stat Partial Thromboplastin Time Stat Phosphorous Stat Prothrombin Time INR Stat Troponin I Stat Discontinued Medications Clonidine HCl (Catapres-Tts 1) 0.1 mg TOP NOW ONE Stop: 10/22/19 19:38 Last Admin: 10/22/19 19:59 Dose: 0.1 mg Documented by: TIMOTHYL Sodium Chloride (Normal Saline 0.9%) 1,000 mls @ 1,000 mls/hr IV BOLUS ONE Stop: 10/22/19 20:36 Last Infusion: 10/22/19 20:48 Dose: 0 mls/hr Documented by: Admin: 10/22/19 19:47 Dose: 1,000 mls/hr Documented by: BLANCA Lorazepam (Ativan) 1 mg IV NOW ONE Stop: 10/22/19 21:28 Last Admin: 10/22/19 21:46 Dose: 1 mg Documented by: CTRCHAY Ondansetron HCl (Zofran) 4 mg IV NOW ONE Stop: 10/22/19 19:38 Last Admin: 10/22/19 19:47 Dose: 4 mg Documented by: BLANCA Ondansetron HCl (Zofran) 4 mg IV NOW ONE Stop: 10/22/19 20:31 Last Admin: 10/22/19 20:35 Dose: 4 mg Documented by: BLANCA Vital Signs Vital signs: Vital Signs - 8 hr 10/22/19 19:11 07/12/20 20:00 10/22/19 20:30 Temperature 98.3 F Pulse Rate 113 H 89 89 Respiratory Rate 24 19 17 Blood Pressure 162/105 H 142/90 H 147/100 H Pulse Oximetry 95 96 98 10/22/19 21:00 10/22/19 21:30 10/22/19 22:09 Temperature Pulse Rate 95 H 98 H 103 H Respiratory Rate 19 19 16 Blood Pressure 136/90 142/90 H 138/92 H Pulse Oximetry 97 95 96 MDM - Nausea/Vomiting/Diarrhea Lab Data Attestation: I reviewed the patient's lab results. Result diagrams: 10/22/19 19:40 10/22/19 19:40 Labs: Lab Results 10/22/19 10/22/19 10/22/19 Range/Units 19:40 19:40 19:40 WBC 8.2 (4.5-11.0) X10^3/uL RBC 3.89 L (4.5-5.9) X10^6/uL Hgb 12.2 L (13.5-17.5) g/dL Hct 36.5 L (41-53) % MCV 93.9 (80-100) fL MCH 31.4 (26-34) PG MCHC 33.5 (30-36) % RDW 17.5 H (11.6-14.8) % Plt Count 73 L (150-400) X10^3/uL Neut % (Auto) 83.6 H (50-75) % Lymph % (Auto) 9.9 L (25-40) % Mcpherson % (Auto) 5.8 (3-14) % Eos % (Auto) 0.1 L (2-4) % Baso % (Auto) 0.6 (0-2) % Neut # (Auto) 6900 (4739-7875) /uL Lymph # (Auto) 800 L (9415-1935) /uL Mcpherson # (Auto) 500 (0-900) /uL Eos # (Auto) 0 (0-450) /uL Baso # (Auto) 100 (0-100) /uL PT 13.0 H (10.1-12.7) SECONDS INR 1.1 (0.9-1.3) APTT 30 D (26.4-36.2) SECONDS Sodium 139 (137-145) mmol/L Potassium 4.0 (3.4-5.1) mmol/L Chloride 99 (98-107) mmol/L Carbon Dioxide 25 (22-32) mmol/L BUN 11 (9-20) mg/dL Creatinine 0.93 (0.66-1.25) mg/dL Estimated GFR > 60.0 (>60) mL/min BUN/Creatinine Ratio 11.8 (6-22) Glucose 86 (70-100) mg/dL Calcium 8.6 (8.4-10.2) mg/dL Phosphorus (2.5-4.5) mg/dL Magnesium (1.6-2.3) mg/dL Total Bilirubin 1.2 (0.2-1.3) mg/dL AST 382 H (17-59) IU/L ALT 135 H (<50) IU/L Alkaline Phosphatase 190 H (38-126) U/L Troponin I < 0.012 (0.01-0.034) ng/mL Total Protein 7.6 (6.3-8.2) g/dL Albumin 4.4 (3.5-5.0) g/dL Globulin 3.2 (1.7-4.1) g/dL Albumin/Globulin Ratio 1.4 (1.0-2.8) Lipase < 10 L (23-300) U/L Ethyl Alcohol 294 H ( - 10) mg/dL Ketones (<0.27) mmol/L 10/22/19 Range/Units 19:40 WBC (4.5-11.0) X10^3/uL RBC (4.5-5.9) X10^6/uL Hgb (13.5-17.5) g/dL Hct (41-53) % MCV (80-100) fL MCH (26-34) PG MCHC (30-36) % RDW (11.6-14.8) % Plt Count (150-400) X10^3/uL Neut % (Auto) (50-75) % Lymph % (Auto) (25-40) % Mcpherson % (Auto) (3-14) % Eos % (Auto) (2-4) % Baso % (Auto) (0-2) % Neut # (Auto) (5371-5328) /uL Lymph # (Auto) (3726-3108) /uL Mcpherson # (Auto) (0-900) /uL Eos # (Auto) (0-450) /uL Baso # (Auto) (0-100) /uL PT (10.1-12.7) SECONDS INR (0.9-1.3) APTT (26.4-36.2) SECONDS Sodium (137-145) mmol/L Potassium (3.4-5.1) mmol/L Chloride (98-107) mmol/L Carbon Dioxide (22-32) mmol/L BUN (9-20) mg/dL Creatinine (0.66-1.25) mg/dL Estimated GFR (>60) mL/min BUN/Creatinine Ratio (6-22) Glucose (70-100) mg/dL Calcium (8.4-10.2) mg/dL Phosphorus 2.9 (2.5-4.5) mg/dL Magnesium 2.1 (1.6-2.3) mg/dL Total Bilirubin (0.2-1.3) mg/dL AST (17-59) IU/L ALT (<50) IU/L Alkaline Phosphatase (38-126) U/L Troponin I (0.01-0.034) ng/mL Total Protein (6.3-8.2) g/dL Albumin (3.5-5.0) g/dL Globulin (1.7-4.1) g/dL Albumin/Globulin Ratio (1.0-2.8) Lipase (23-300) U/L Ethyl Alcohol ( - 10) mg/dL Ketones 0.33 H (<0.27) mmol/L Imaging Data Chest x-ray: Radiologist's Impression: [address] [address] XRay Report Signed Patient: Lalo Han CMR#: [id number] : 1975Acct:[id number] Age/Sex: 43 / MDate of Service: 10/22/19 Loc: ED Accession Number: [id number] Procedure: XR chest 1V Ordering Provider: Jermaine Daly D.O. PROCEDURE: XR CHEST 1V INDICATIONS: chest pain TECHNIQUE: One view of the chest was acquired. COMPARISON: [facility], ANA, XR CHEST 2V, 04/23/2019, 7:56. FINDINGS: Surgical changes and devices: Partially visualized cervical fixation plates are noted. Lungs and pleura: Lungs are clear. No pleural effusions or pneumothorax. Mediastinum: Mediastinal contours appear normal. Heart size is normal. Bones and chest wall: No suspicious bony lesions. Overlying soft tissues appear unremarkable. IMPRESSION: No acute pulmonary process. Dictated by: Crissy Martinez M.D. on 10/22/2019 at 20:24 Approved by: Crissy Martinez M.D. on 10/22/2019 at 20:24 ECG Data Attestation: I personally reviewed and interpreted this ECG as follows: Prior ECG tracings: not available for review Interpretation: Sinus rhythm Ventricular rate of 100 Normal QRS QTC [address] T wave changes MDM Narrative Medical decision making narrative: Patient has multiple complaints and multiple positive answers on his review of systems. His EKG shows no acute pathology. His chest x-ray is negative. Patient is diabetic but is not in DKA. Somewhat confusing information from the patient regarding why he is here. Initially was stating that it was because he was out of his pain medication and also his benzodiazepine medication and states that he felt like he was going through ?DTs. When I confronted him about his alcohol level being elevated he seemed somewhat confused along his alcohol was elevated is he denied drinking. Patient asked for pain medication however I informed him that given his elevated alcohol level that I would not provide him opioid pain medication. I did offer him Tylenol or ibuprofen which he declined. Patient did have quite a bit of nausea and vomiting. I suspect that this is from the withdrawals of his medications. He was shaking quite a bit. He was provided 1 dose of Ativan however I told him that this would be the only dose that he would be receiving here. I do feel that the patient is most likely withdrawing from opioids/benzodiazepines. I offered to find the patient a treatment facility regarding this but he declined. I did inform him that this emergency department would not be refilling any chronic pain or anxiety medications and that he needs to talk with his primary doctor or his oncologist regarding this. Review of the patient's record shows that he has no oncology visits in our system for approximately 7 months. I am still somewhat unsure as to who is providing his pain medication for him. I have a high suspicion for drug-seeking behavior in this individual and would recommend no further prescriptions out of the emergency department these controlled substances. Patient's mother came and picked the patient up from the ER. He was given return precautions. Discharge Plan Departure Patient Disposition: Home Clinical Impression: Opioid withdrawal, Nausea Alcohol intoxication Qualifiers: Complication of substance-induced condition: with unspecified complication Qualified Code(s): F10.929 - Alcohol use, unspecified with intoxication, unspecified Benzodiazepine withdrawal Qualifiers: Complication of substance-induced condition: with unspecified complication Qualified Code(s): F13.239 - Sedative, hypnotic or anxiolytic dependence with withdrawal, unspecified Discharge Date/Time: 10/22/19 22:05 Instructions: Alcohol Use Disorder, Opioid Addiction Activity Restrictions/Additional Instructions: Unfortunately the emergency department does not refill chronic pain/anxiety medications. You will need to talk with your primary provider or your oncologist have this refilled. Continue the rest your medications as directed. Prescriptions: No Action (DME) BD U/F Hilda Pen Needle [id number] .Route .MEDSUPPLY Qty: 100 RF: 3 Humalog KwikPen Insulin 100 unit/mL insulin pen 1 - 12 unit subcut TIDCC Qty: 1 RF: 3 Lantus Solostar U-100 Insulin 100 unit/mL (3 mL) insulin pen 25 unit SUBCUT BID Qty: 15 RF: 3 (DME) True Metrix Glucose Test Strip strip See Dose Instructions .ROUTE .MEDSUPPLY Qty: 100 RF: 1 (DME) True Metrix Blood Glucose Meter Qty: 1 RF: 0 True Metrix test strips strip 0 strip .Route .MEDSUPPLY RF: 0 prochlorperazine maleate [Compazine] 10 mg Tablet 10 mg PO Q6H PRN (Reason: Nausea) Qty: 30 RF: 2 ondansetron 4 mg tablet,disintegrating 4 mg PO QID PRN (Reason: nausea and vomiting) Qty: 30 RF: 3 imatinib [Gleevec] 100 MG tablet 300 mg PO QPM Qty: 90 RF: 11 lorazepam 1 mg Tablet 1 mg PO BID PRN (Reason: nauseas) Qty: 60 RF: 0 Syringes 1 syr miscellaneous DIRECTED RF: 0 ondansetron 4 mg tablet,disintegrating 4 mg PO Q6H Qty: 12 RF: 0 Maalox Maximum Strength 400-400-40 mg/5 mL suspension 5 ml PO QID PRN (Reason: indigestion) Qty: 355 RF: 0 Bacid 1 billion cell- 250 mg Tablet 1 ea PO TIDWM Qty: 90 RF: 0 docusate sodium [DOK] 100 mg Capsule 100 mg PO BID Qty: 60 RF: 0 oxycodone 5 mg Tablet 10 mg PO Q6-12H PRN (Reason: Pain, Moderate (4-6)) Qty: 15 RF: 0
--- NOTE | 2019-10-22 19:36 | PC.NURSE ---
Pt states n/v and body aches patient states has leukemia and usually takes ativan and hydrocodone 3 x daily, has run out of meds and hasn't taken for 5 days and is feeling terrible. Pt also stating he is having CP, Dr. Daly aware and EKG ordered.
--- NOTE | 2019-10-22 19:39 | DI.RAD.S_ITS ---
PROCEDURE: XR CHEST 1V INDICATIONS: chest pain TECHNIQUE: One view of the chest was acquired. COMPARISON: [facility], CR, XR CHEST 2V, 04/23/2019, 7:56. FINDINGS: Surgical changes and devices: Partially visualized cervical fixation plates are noted. Lungs and pleura: Lungs are clear. No pleural effusions or pneumothorax. Mediastinum: Mediastinal contours appear normal. Heart size is normal. Bones and chest wall: No suspicious bony lesions. Overlying soft tissues appear unremarkable. IMPRESSION: No acute pulmonary process. Dictated by: Crissy Martinez M.D. on 10/22/2019 at 20:24 Approved by: Crissy Martinez M.D. on 10/22/2019 at 20:24
[2019-10-22] MEDS: ONDANSETRON 4 MG/2 ML INJ IV ×2 (19:47→20:35)
[2019-10-22] MEDS: SODIUM CHLORIDE 0.9% 1,000 ML 1000 ML IV (19:47)
[2019-10-22] MEDS: cloNIDine TTS 0.1 MG PATCH TOP (19:59)
[2019-10-22 20:00] VITALS: BP 142/90; PULSE 89; RESP 19; O2SAT 96
[2019-10-22 20:05] LABS: Add Manual Diff / Slide Review NO; Basophils Absolute Auto 100 /uL (0-100); Basophils Percent Auto 0.6 % (0-2); Eosinophils Absolute Auto 0 /uL (0-450); Eosinophils Percent Auto 0.1 % (2-4); Hematocrit 36.5 % (41-53); Hemoglobin 12.2 g/dL (13.5-17.5); Lymphocytes Absolute Auto 800 /uL (1100-4500); Lymphocytes Percent Auto 9.9 % (25-40); Mean Corpuscular HGB Conc 33.5 % (30-36); Mean Corpuscular Hemoglobin 31.4 PG (26-34); Mean Corpuscular Volume 93.9 fL (80-100); Monocytes Absolute Auto 500 /uL (0-900); Monocytes Percent Auto 5.8 % (3-14); Neutrophils Absolute Auto 6900 /uL (1500-7000); Neutrophils Percent Auto 83.6 % (50-75); Platelet Count 73 X10^3/uL (150-400); Red Blood Cell Count 3.89 X10^6/uL (4.5-5.9); Red Cell Distribution Width 17.5 % (11.6-14.8); White Blood Cell Count 8.2 X10^3/uL (4.5-11.0)
[2019-10-22 20:16] LABS: INR 1.1 (0.9-1.3)
[2019-10-22 20:18] LABS: PTT Partial Thromboplastin Tim 30 SECONDS (26.4-36.2)
[2019-10-22 20:19] LABS: Magnesium 2.1 mg/dL (1.6-2.3); Phosphorous 2.9 mg/dL (2.5-4.5)
[2019-10-22 20:20] LABS: Alanine Aminotransferase 135 IU/L (<50); Albumin 4.4 g/dL (3.5-5.0); Albumin Globulin Ratio 1.4 (1.0-2.8); Alkaline Phosphatase 190 U/L (38-126); Aspartate Aminotransferase 382 IU/L (17-59); BUN Creatinine Ratio 11.8 (6-22); Bilirubin Total 1.2 mg/dL (0.2-1.3); Blood Urea Nitrogen 11 mg/dL (9-20); Calcium 8.6 mg/dL (8.4-10.2); Carbon Dioxide 25 mmol/L (22-32); Chloride 99 mmol/L (98-107); Estimated Glomerular Filt Rate > 60.0 mL/min (>60); Ethanol (ETOH) 294 mg/dL; Globulin 3.2 g/dL (1.7-4.1); Glucose 86 mg/dL (70-100); HEMOLYSIS < 15 (0-50); Lipase < 10 U/L (23-300); Sodium 139 mmol/L (137-145); Total Protein 7.6 g/dL (6.3-8.2)
[2019-10-22 20:22] LABS: Ketones (Beta-Hydroxybutyrate) 0.33 mmol/L (<0.27)
[2019-10-22 20:30] VITALS: BP 147/100; PULSE 89; RESP 17; O2SAT 98
[2019-10-22 20:31] LABS: Troponin I < 0.012 ng/mL (0.01-0.034)
[2019-10-22 21:00] VITALS: BP 136/90; PULSE 95; RESP 19; O2SAT 97
[2019-10-22 21:30] VITALS: BP 142/90; PULSE 98; RESP 19; O2SAT 95
[2019-10-22] MEDS: LORazepam 2 MG/ML INJ 1 MG IV (21:46)
[2019-10-22 22:09] VITALS: BP 138/92; PULSE 103; RESP 16; O2SAT 96
== END 2019-10-22 22:05 | disposition home or self-care (01) ==
PROVIDERS: Emergency Provider Emergency Medicine
DX: F13.239 Sedative, hypnotic or anxiolytic dependence with withdrawal, unspecified (principal); F10.929 Alcohol use, unspecified with intoxication, unspecified; R06.02 Shortness of breath; F41.9 Anxiety disorder, unspecified; R11.2 Nausea with vomiting, unspecified
CPT/HCPCS: 36415; 71045; 80053; 80320; 82009; 83690; 83735; 84100; 84484; 85025; 85610; 85730; 93005; 93010; 96361; 96374; 96375; 96376; 99284; J2060; J2405

== ENCOUNTER 2019-11-21 13:14 | Emergency (ER) | payer OTHER, MEDICAID, SELFPAY ==
[2019-11-21] VITALS (23 sets, daily range): BP systolic 110–157; BP diastolic 72–94; PULSE 69–94; RESP 9–25; TEMP 36.4–36.8; O2SAT 95–100; BMI 25.7
--- NOTE | 2019-11-21 13:17 | DI.CT.S_ITS ---
PROCEDURE: CT HEAD/BRAIN WO CON INDICATIONS: trauma TECHNIQUE: Noncontrast 4.5 mm thick angled axial sections acquired from the foramen magnum to the vertex, with coronal and sagittal reformats. For radiation dose reduction, the following was used: automated exposure control, adjustment of mA and/or kV according to patient size. COMPARISON: [facility], CT, HEAD WITHOUT CONTRAST, 07/26/2017, 3:49. [facility], CT, CT CERVICAL SPINE WO CON, 11/21/2019, 13:15. [facility], CT, CT CHEST ABD PEL WO CON, 11/21/2019, 13:15. [facility], CT, CT HEAD/BRAIN WO CON, 08/31/2017, 22:36. FINDINGS: Image quality: Excellent. CSF spaces: Basal cisterns are patent. No extra-axial fluid collections. Ventricles are normal in size and shape. Brain: No midline shift. No intracranial masses or hemorrhage. Patino-white matter interface is normal. Skull and face: Calvarium and visualized facial bones are intact, without suspicious lesions. Sinuses: Visualized sinuses and mastoids are clear. Bilateral joleen bullosa can be seen. There is mild leftward nasal septal deviation. IMPRESSION: No acute intracranial hemorrhage is seen. No acute intracranial process is seen. Dictated by: Hector Lai M.D. on 11/21/2019 at 12:33 Approved by: Hector Lai M.D. on 11/21/2019 at 12:35
--- NOTE | 2019-11-21 13:18 | DI.CT.S_ITS ---
PROCEDURE: CT CHEST ABD PEL WO CON INDICATIONS: trauma TECHNIQUE: After the administration of oral contrast, 5 mm thick sections acquired from the lung apices to the symphysis pubis. 5 mm thick coronal and sagittal reformats acquired, with additional 7 mm coronal MIP reformats through the lungs. Additional 3 mm sagittal bone reconstruction images were reformatted through the spine. For radiation dose reduction, the following was used: automated exposure control, adjustment of mA and/or kV according to patient size. COMPARISON: [facility], CT, CT ABDOMEN PELVIS W CON, 01/19/2018, 13:47. [facility], CT, CT ANGIO CHEST PE PROTOCOL, 02/09/2019, 23:35. [facility], CT, CT CERVICAL SPINE WO CON, 11/21/2019, 13:15. [facility], CT, CT HEAD/BRAIN WO CON, 11/21/2019, 13:15. FINDINGS: Image quality: There is streak artifact through the upper abdomen. Evaluation is limited by lack of IV contrast. CHEST: Lungs and pleura: No acute pulmonary opacities. No pleural effusions or pneumothorax. Central and peripheral airways are patent are normal in caliber. Mediastinum: Heart size is normal. No pericardial effusion. No mediastinal adenopathy by CT size criteria. Thoracic aorta and central pulmonary arteries are normal in size. Esophagus is normal in caliber. No hiatal hernia. Chest wall: Remote right posterior rib fractures are seen, with relatively poor healing. No acute rib fractures can be seen. No axillary or supraclavicular adenopathy by size criteria. Thyroid gland demonstrates no significant noncontrast abnormality. ABDOMEN: Solid organs: The liver demonstrates a cirrhotic appearance, with a nodular contour. Gallbladder demonstrates gallstones within its lumen. The pancreas is small in size and demonstrates calcification along its course. Spleen is enlarged, measuring 15.5 cm in greatest axial dimension. No adrenal nodules. Both kidneys are normal in size, without hydronephrosis or nephrolithiasis. Peritoneum and bowel: Small and large bowel loops are normal in caliber and wall thickness. No free fluid or air. Nodes and vessels: No retroperitoneal or mesenteric adenopathy by size criteria. Aorta and inferior vena cava are normal in size. Miscellaneous: No ventral hernias. PELVIS: Genitourinary: Bladder wall thickness is normal. Miscellaneous: No inguinal hernias or adenopathy. Bones: Cervical spine fixation hardware is partially seen. At the L4-5 level, there is prior remote trauma seen with posterior fixation hardware. A disc spacer is also seen at this level. No findings of hardware failure or hardware loosening are seen. No suspicious bony lesions. No acute vertebral body compression fractures. Left sacroiliac joint fusion can be seen. Mild levoconvex scoliotic curvature is noted. IMPRESSION: No jl, acute posttraumatic abnormality is detected. Remote, poorly healed right posterior rib fractures, without an acute rib fracture seen. Incidental note is made of: Gallstones Cirrhotic appearing liver Splenomegaly Chronic pancreatitis Postoperative change of the cervical spine and L4-5 Left sacroiliac joint fusion. Note: Case discussed by telephone with Dr. Patel at 12:43 p.m. [place] time on November 21, 2019. Dictated by: Hector Lai M.D. on 11/21/2019 at 12:39 Approved by: Hector Lai M.D. on 11/21/2019 at 12:45
--- NOTE | 2019-11-21 13:25 | DI.CT.S_ITS ---
PROCEDURE: CT CERVICAL SPINE WO CON INDICATIONS: trauma TECHNIQUE: Noncontrast 3 mm thick sections acquired from the skull base to the T4 level. Sagittal and coronal reformats were then constructed. For radiation dose reduction, the following was used: automated exposure control, adjustment of mA and/or kV according to patient size. COMPARISON: [facility], CT, CT CHEST ABD PEL WO CON, 11/21/2019, 13:15. [facility], CT, CT HEAD/BRAIN WO CON, 11/21/2019, 13:15. [facility], CT, C-SPINE WITHOUT CONTRAST, 05/18/2013, 12:31. FINDINGS: Image quality: Excellent. Bones: No fractures or dislocations. Visualized superior ribs are intact. C4 through C7 fixation hardware is seen anteriorly. The fusion plate is well seated. No findings of hardware failure or hardware loosening are seen. Vertebral body fusion is seen within the fused region, with apparent bony interbody grafts. There is moderate disc space narrowing seen at C2-C3 and C3-C4. Bridging anterior osteophytes are seen at these levels. Postop directed endplate osteophytes are seen at the C3-C4 level. Mild grade 1 retrolisthesis is seen at C3-C4. Soft tissues: Prevertebral soft tissues are normal in thickness. No paravertebral hematomas. No apical pneumothoraces. IMPRESSION: No acute fractures are seen. Intact C4 through C7 anterior postoperative hardware. Focal premature C2-C3 and C3-C4 degenerative change. Dictated by: Hector Lai M.D. on 11/21/2019 at 12:35 Approved by: Hector Lai M.D. on 11/21/2019 at 12:37
[2019-11-21 13:41] LABS: Add Manual Diff / Slide Review NO; Basophils Absolute Auto 0 /uL (0-100); Basophils Percent Auto 0.7 % (0-2); Eosinophils Absolute Auto 100 /uL (0-450); Eosinophils Percent Auto 2.8 % (2-4); Hematocrit 32.7 % (41-53); Hemoglobin 10.7 g/dL (13.5-17.5); Lymphocytes Absolute Auto 1000 /uL (1100-4500); Lymphocytes Percent Auto 22.5 % (25-40); Mean Corpuscular HGB Conc 32.8 % (30-36); Mean Corpuscular Hemoglobin 32.7 PG (26-34); Mean Corpuscular Volume 99.7 fL (80-100); Monocytes Absolute Auto 300 /uL (0-900); Neutrophils Absolute Auto 2800 /uL (1500-7000); Platelet Count 75 X10^3/uL (150-400); Red Blood Cell Count 3.27 X10^6/uL (4.5-5.9); Red Cell Distribution Width 15.8 % (11.6-14.8); White Blood Cell Count 4.2 X10^3/uL (4.5-11.0)
--- NOTE | 2019-11-21 13:47 | ED.FALL ---
HPI - Fall General Chief Complaint: Trauma Stated Complaint: Fall Time Seen by Provider: 11/21/19 13:24 Source: patient and EMS Mode of arrival: EMS History of Present Illness HPI Narrative: Patient arrives by EMS from home board and collared. Complaints of fall at home in the kitchen. Patient states he was caring a dish into the kitchen but recently they placed a dressing on his right foot that makes it slippery. He slipped on the kitchen floor and fell forward hitting his head on the counter top and then onto the floor.. He was found on the floor by his care provider they came to see him today. Complains of head pain neck pain and lower back pain. No new limb pain. ATLS protocol completed. Please see nurse's notes. Patient has history of CML, leukemia, currently on treatment. Patient is also on pain medication which he is out of and has been supplementing with alcohol. Patient is awake alert oriented x4. Not combative. GCS of 15. Has a 2 cm linear shallow laceration mid forehead. Denies any joint pain or injury. Has bruising to umbilicus area. Previous history of cervical and lumbar surgeries. Tetanus is up-to-date Related Data Home Medications Medication Instructions Recorded Confirmed Syringes 1 syr MISCELLANEOUS DIRECTED 11/10/17 03/08/19 True Metrix test strips 0 strip .ROUTE .MEDSUPPLY 04/06/18 03/08/19 Previous Rx's Medication Instructions Recorded BD U/F Hilda Pen Needle [id number] #100 each 06/13/18 insulin lispro 100 unit/mL 1 - 12 unit SUBCUT TIDCC #1 ea 06/13/18 subcutaneous pen insulin glargine 100 unit/mL (3 25 unit SUBCUT BID #15 ml 08/02/18 mL) subcutaneous pen prochlorperazine maleate 10 mg PO Q6H PRN #30 tab 10/04/18 [Compazine] L.acidoph-L.bulg-B.bif-S.therm 1 ea PO TIDWM #90 tab 10/24/18 [Bacid (L. acidophilus)] docusate sodium [DOK] 100 mg PO BID #60 cap 10/24/18 oxycodone 10 mg PO Q6-12H PRN #15 tab 10/24/18 ondansetron 4 mg PO QID PRN #30 tab 11/22/18 True Metrix Glucose Test Strip #100 each NS 11/29/18 True Metrix Blood Glucose Meter #1 ea 12/09/18 alum-mag hydroxide-simeth [Maalox 5 ml PO QID PRN #355 ml 04/23/19 Maximum Strength] ondansetron 4 mg PO Q6H #12 tab 04/23/19 imatinib [Gleevec] 300 mg PO QPM #90 tab 08/17/19 lorazepam 1 mg PO BID PRN #60 tab 09/18/19 Allergies Allergy/AdvReac Type Severity Reaction Status Date / Time Penicillins [PENICILLINS] Allergy Severe Tongue Verified 10/22/19 19:15 swelling, hives adhesive Allergy Unknown PLASTIC Verified 10/22/19 19:15 TAPE latex [LATEX] Allergy Unknown Verified 10/22/19 19:15 Review of Systems Review of Systems Narrative: GENERAL: Denies chills, fatigue, malaise, fever, sweats. HEENT: Denies sinus pain, ear pain, sore throat, difficulty swallowing, dizziness. RESPIRATORY: Denies dyspnea, cough, wheezing, hemoptysis, sputum. CARDIOVASCULAR: Denies chest pain, palpitations, orthopnea, edema, GASTROINTESTINAL: Denies nausea, vomiting, abdominal pain, diarrhea, constipation, melena. : Denies dysuria, frequency, incontinence, hematuria, urinary retention. MUSCULOSKELETAL: denies weakness, joint pain, or bony pain SKIN: Denies rash, skin lesions, complains of laceration forehead NEUROLOGIC: Denies change in speech, confusion, seizures, incoordination. Complains of weakness and numbness to the upper extremities PSYCHIATRIC: No concerning psychosocial issues. ROS Unobtainable: All systems reviewed & are unremarkable except as noted in HPI and below Patient History Medical History Alcoholism (Acute) CML (chronic myelocytic leukemia) (Acute) Insulin dependent diabetes mellitus (Acute) Thrombocytopenia (Acute) Surgical History Status post appendectomy Family History Grandfather Diabetes mellitus Mother Cancer Social History household members: none Smoking Status: Former smoker alcohol intake: current Smoking Status: Former smoker alcohol intake frequency: a few times a week Alcohol type: beer Substance Use Type: does not use Exam Narrative Exam Narrative: GENERAL: patient appears stated age. Well-nourished, well-developed patient, in no distress, not toxic, patient in C-collar and on backboard HEAD: Normocephalic. 2 cm superficial horizontal laceration mid forehead EYES: Pupils equal round and reactive. Extraocular motions intact. No scleral icterus. No injection or drainage. ENT: Nose without bleeding, purulent drainage. Throat without erythema, tonsillar hypertrophy or exudate. Airway patent. NECK: Trachea midline. Patient remains in C-collar CARDIOVASCULAR: Regular rate and rhythm without murmurs, gallops, or rubs. Strong bilateral carotid and radial pulses RESPIRATORY: Clear to auscultation. Breath sounds equal bilaterally. No wheezes, rales, or rhonchi. GASTROINTESTINAL: Abdomen soft, non-tender, nondistended. No peritoneal signs. Small bruise at the umbilicus EXTREMITIES: No edema or joint tenderness. BACK: Skin intact without deformity or crepitance. No flank tenderness. Diffuse mild tenderness of the thoracic and lumbar spine but no step-off. Patient was log-rolled with spinal precautions. Nurse had head of bed to stabilize C-collar and 3 nurses to logroll patient. Backboard cleared.. NEURO: AOx3. Clear speech able to bring each leg off the bed individually. Light touch intact to bilateral face, clear speech no facial droop. Left hand receiver/laborer weaker than the right however both are weak. Strong rectal tone Light touch intact to bilateral hands and legs SKIN: No rash or erythema of visible areas PSYCH: Not anxious, is cooperative, not combative Initial Vital Signs Initial Vital Signs: Vital Signs Pulse Rate 77 11/21/19 13:25 Respiratory Rate 13 11/21/19 13:25 Pulse Oximetry 97 11/21/19 13:25 Procedures Laceration Repair Laceration 1: Site: other (Mid forehead) Size (cm): 2 Description: linear Depth: simple, single layer Local Anesthetic: lidocaine 1% and with epi Amount of anesthesia used (mL): 1 Pre-repair: wound explored and irrigated extensively Skin layer closed with: nylon Size (cm): 5-0 Number of sutures: 4 Technique: simple, interrupted Laceration 2: Site: other (Chin) Size (cm): 2 Description: linear Depth: simple, single layer Local Anesthetic: lidocaine 1% and with epi Amount of anesthesia used (mL): 1 Pre-repair: wound explored and irrigated extensively Skin layer closed with: nylon Size (cm): 5-0 Number of sutures: 4 Technique: simple, interrupted Course Course Course Narrative: Patient continues with left hand and arm weakness. MRI reviewed with patient and father at bedside. Appropriate for transfer to neurosurgery [facility] Decision to Admit Date: 11/21/19 Decision to Admit time: 18:46 Orders Ordered: ED Orders 11/21/19 13:17 CT head/brain wo con Stat 11/21/19 13:18 CT chest abd pel wo con Stat 11/21/19 13:25 CT cervical spine wo con Stat Complete Blood Count AUTO DIFF Stat Comprehensive Metabolic Panel Stat Ethanol (ETOH) Stat 11/21/19 13:36 EKG-12 Lead Stat 11/21/19 13:53 MR cervical spine wo con Stat MR lumbar spine wo con Stat 11/21/19 16:46 CT angio head and neck Stat Magnesium Sulfate 2 gm/ Folic Acid 1 mg/ Thiamine HCl 100 mg / Multivitamins 10 ml/ Sodium Chloride 1,015.2 mls @ 125 mls/hr IV NOW ONE Stop: 11/22/19 00:19 Last Admin: 11/21/19 16:58 Dose: 125 mls/hr Documented by: SHEREEN Discontinued Medications Hydromorphone HCl (Dilaudid) 0.5 mg IV NOW ONE Stop: 11/21/19 15:58 Last Admin: 11/21/19 16:03 Dose: 0.5 mg Documented by: SHEREEN Hydromorphone HCl (Dilaudid) 1 mg IV NOW ONE Stop: 11/21/19 16:47 Last Admin: 11/21/19 16:58 Dose: 1 mg Documented by: SHEREEN Hydromorphone HCl (Dilaudid) 1 mg IV NOW ONE Stop: 11/21/19 18:16 Last Admin: 11/21/19 18:25 Dose: 1 mg Documented by: SHEREEN Lidocaine/Epinephrine (Xylocaine 1% W/Epi) 4 ml INJ INTRA-OP ONE Stop: 11/21/19 15:58 Last Admin: 11/21/19 16:06 Dose: 4 ml Documented by: SHEREEN Lorazepam (Ativan) 0.5 mg IV NOW ONE Stop: 11/21/19 14:42 Last Admin: 11/21/19 14:47 Dose: 0.5 mg Documented by: SHEREEN Methylprednisolone (Solu-Medrol 125 Mg Vial) 125 mg IV NOW ONE Stop: 11/21/19 18:22 Last Admin: 11/21/19 18:25 Dose: 125 mg Documented by: SHEREEN Morphine Sulfate (Morphine) 4 mg IV NOW ONE Stop: 11/21/19 14:17 Last Admin: 11/21/19 14:25 Dose: 4 mg Documented by: SHEREEN Ondansetron HCl (Zofran) 4 mg IV NOW ONE Stop: 11/21/19 14:17 Last Admin: 11/21/19 14:25 Dose: 4 mg Documented by: SHEREEN Reevaluation(s) Reevaluation #1: No changes with left arm weakness. Maintains strength in both legs Time: 18:46 Consultations Consultation #1: Spoke with Trauma surgery [facility] Dr. Becerra and Neurosurgery Dr suzan martinez.. Reviewed CAT scans and MRIs. They will accept patient in the emergency department. Spoke with Emergency Department physician Dr. Reaves, he will accept patient Time: 18:47 Vital Signs Vital signs: Vital Signs - 8 hr 11/21/19 13:25 11/21/19 13:26 11/21/19 13:30 Temperature Pulse Rate 77 78 77 Respiratory Rate 13 9 L 13 Blood Pressure 123/88 127/87 Pulse Oximetry 97 99 98 11/21/19 13:45 11/21/19 13:48 11/21/19 14:00 Temperature 97.5 F L Pulse Rate 69 78 70 Respiratory Rate 17 24 17 Blood Pressure 118/82 123/88 122/86 Pulse Oximetry 98 99 98 11/21/19 14:15 11/21/19 14:30 11/21/19 14:45 Temperature 97.7 F Pulse Rate 74 78 75 Respiratory Rate 16 25 H 17 Blood Pressure 122/88 129/91 H 123/86 Pulse Oximetry 98 98 98 11/21/19 15:48 11/21/19 16:00 11/21/19 16:08 Temperature Pulse Rate 94 H 82 86 Respiratory Rate 15 15 Blood Pressure 118/80 Pulse Oximetry 97 95 97 11/21/19 16:15 11/21/19 16:30 11/21/19 16:45 Temperature Pulse Rate 85 87 89 Respiratory Rate 14 16 21 Blood Pressure 133/82 126/78 120/85 Pulse Oximetry 98 97 97 11/21/19 17:38 11/21/19 17:40 11/21/19 18:00 Temperature Pulse Rate 86 82 82 Respiratory Rate 12 11 L Blood Pressure 118/80 114/78 Pulse Oximetry 99 99 97 11/21/19 18:30 Temperature Pulse Rate 86 Respiratory Rate 12 Blood Pressure 113/78 Pulse Oximetry 100 MDM - Fall Differential Diagnosis Differential diagnosis: Likely compression fracture and other (Spinal cord injury) Medical Records Attestation: I reviewed the patient's medical records. Lab Data Attestation: I reviewed the patient's lab results. Result diagrams: 11/21/19 13:25 11/21/19 13:25 Labs: Lab Results 11/21/19 11/21/19 11/21/19 Range/Units 13:25 13:25 16:50 WBC 4.2 L (4.5-11.0) X10^3/uL RBC 3.27 L (4.5-5.9) X10^6/uL Hgb 10.7 L (13.5-17.5) g/dL Hct 32.7 L (41-53) % MCV 99.7 (80-100) fL MCH 32.7 (26-34) PG MCHC 32.8 (30-36) % RDW 15.8 H (11.6-14.8) % Plt Count 75 L (150-400) X10^3/uL Neut % (Auto) 66.0 (50-75) % Lymph % (Auto) 22.5 L (25-40) % [place] % (Auto) 8.0 (3-14) % Eos % (Auto) 2.8 (2-4) % Baso % (Auto) 0.7 (0-2) % Neut # (Auto) 2800 (5574-3713) /uL Lymph # (Auto) 1000 L (1558-7598) /uL [place] # (Auto) 300 (0-900) /uL Eos # (Auto) 100 (0-450) /uL Baso # (Auto) 0 (0-100) /uL Sodium 137 (137-145) mmol/L Potassium 3.8 (3.4-5.1) mmol/L Chloride 107 (98-107) mmol/L Carbon Dioxide 18 L (22-32) mmol/L BUN 16 (9-20) mg/dL Creatinine 0.77 (0.66-1.25) mg/dL Estimated GFR > 60.0 (>60) mL/min BUN/Creatinine Ratio 20.8 (6-22) Glucose 198 H (70-100) mg/dL Calcium 8.3 L (8.4-10.2) mg/dL Total Bilirubin 0.7 (0.2-1.3) mg/dL AST 77 H (17-59) IU/L ALT 44 (<50) IU/L Alkaline Phosphatase 90 (38-126) U/L Total Protein 6.4 (6.3-8.2) g/dL Albumin 3.7 (3.5-5.0) g/dL Globulin 2.7 (1.7-4.1) g/dL Albumin/Globulin Ratio 1.4 (1.0-2.8) Ethyl Alcohol 250 H ( - 10) mg/dL COVID-19 PCR Negative (Negative) Urine Dip Bedside Urine Glucose Negative Bedside Urine Bilirubin - Negative Urine Specific Kiel 1.010 Bedside Urine Occult Blood - Negative Bedside Urine pH 6.0 Bedside Urine Protein - Negative Bedside Urine Urobilinogen - Negative Bedside Urine Nitrite - Negative Bedside Urine Leukocytes - Negative Esterase Imaging Data MRI cervical spine: Radiologist's Impression: [address] [address] Magnetic Resonance Report Signed Patient: Lalo Han CMR#: [id number] : 1975Acct:[id number] Age/Sex: 44 / MDate of Service: 11/21/19 Loc: ED Accession Number: [id number] Procedure: MR cervical spine wo con Ordering Provider: Leonidas Patel MD PROCEDURE: MR CERVICAL SPINE WO CON INDICATIONS: Fall/injury/upper arm weakness TECHNIQUE: Noncontrast sagittal T1 spin echo and T2 fast spin echo, sagittal STIR, foraminal oblique sagittal T2 fast spin echo, and axial gradient echo or T2 fast spin echo through the cervical spine. COMPARISON: [facility], MR, L-SPINE W&WO CONTRAST, 12/29/2014, 13:46. [facility], MR, L-SPINE W&WO CONTRAST, 09/24/2014, 14:37. [facility], MR, L-SPINE W&WO CONTRAST, 07/10/2014, 15:26. [facility], MR, MR LUMBAR SPINE WO CON, 11/21/2019, 15:28. [facility], CT, CT CERVICAL SPINE WO CON, 11/21/2019, 13:15. FINDINGS: Image quality: This examination is limited by involuntary motion artifact. Alignment and Curvature: There is grade 1 retrolisthesis seen at the C3-C4 level. Bone Marrow: Marrow demonstrates normal overall signal. Spinal Cord: There is increased abnormal T2 weighted signal seen within the spinal cord at the C3-C4 level, as on series 3, image 12 and on series 6, image 11. Visualized spinal cord has normal size. No cerebellar tonsillar herniation. Paraspinous Soft Tissues: No paravertebral masses. Prevertebral soft tissues are normal in thickness. Postoperative changes are seen, with an anterior fusion plate C4 through C7. There is associated susceptibility artifact. Vertebral body fusion is seen C4 through C7. C2-C3: Moderate loss of disc height is seen. Loss of disc signal is seen. Bridging endplate osteophytes are seen. Reactive marrow endplate changes are seen, which are hyperintense on T1-weighted and T2-weighted imaging and most consistent with fatty metaplasia (Modic type II changes). At least moderate disc osteophyte complex is seen, which is eccentric to the right. Mild facet joint hypertrophy is seen. Moderate bilateral neural foraminal narrowing is seen, left worse than right. Mild to moderate central canal narrowing is seen. C3-C4: Moderate loss of disc height is seen. Loss of disc signal is seen. At least moderate disc osteophyte complex is seen. Bridging endplate osteophytes are seen. Mild to moderate facet hypertrophy is seen. There is moderate to severe bilateral neural foraminal narrowing seen. Moderate to severe central canal narrowing is seen. Associated ventral cord flattening is seen. C4-C5: Mild to moderate disc osteophyte complex is seen. There is moderate to severe right-sided and moderate left-sided neural foraminal narrowing seen. Mild central canal narrowing is seen. C5-C6: At least moderate disc osteophyte complex is seen, which is eccentric to the right. There is moderate to severe right-sided and at least moderate left-sided neural foraminal narrowing seen. Mild central canal narrowing is seen. C6-C7: At least moderate disc osteophyte complex is seen, which is eccentric to the right. Mild to moderate facet hypertrophy is seen. There is moderate to severe right-sided and at least moderate left-sided neural foraminal narrowing seen. Mild central canal narrowing is seen. C7-T1: Mild loss of disc height is seen. Loss of disc signal is seen. Mild to moderate disc osteophyte complex is seen. Mild facet joint hypertrophy is seen. There is mild to moderate right-sided and no left-sided neural foraminal narrowing seen. No significant central canal narrowing is seen. IMPRESSION: Abnormal cord signal can be seen within the C3-C4 level. 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 Differential diagnosis includes an acute process in this patient with a presenting history of neurological deficits after a fall, however. Fusion changes are seen C4 through C7. Degenerative changes are seen, which are most prominent at C3-C4. Dictated by: Hector Lai M.D. on 11/21/2019 at 14:56 Approved by: Hector Lai M.D. on 11/21/2019 at 15:07 MRI lumbar spine: Radiologist's Impression: [place] [address] Magnetic Resonance Report Signed Patient: Lalo Han CMR#: [id number] : 1975Acct:[id number] Age/Sex: 44 / MDate of Service: 11/21/19 Loc: ED Accession Number: [id number] Procedure: MR lumbar spine wo con Ordering Provider: Leonidas Patel MD PROCEDURE: MR LUMBAR SPINE WO CON INDICATIONS: Fall/injury/leg weakness TECHNIQUE: Noncontrast sagittal T1 spin echo and T2 fast echo, sagittal STIR, and T2 fast spin echo through the lumbar spine. The patient terminated the examination before can be completed. No axial T1 weighted images were performed. COMPARISON: [facility], MR, L-SPINE W&WO CONTRAST, 12/29/2014, 13:46. [facility], MR, L-SPINE W&WO CONTRAST, 09/24/2014, 14:37. [facility], MR, L-SPINE W&WO CONTRAST, 07/10/2014, 15:26. [facility], MR, MR CERVICAL SPINE WO CON, 11/21/2019, 14:58. [facility], CT, CT CHEST ABD PEL WO CON, 11/21/2019, 13:15. FINDINGS: Image quality: Excellent. Alignment and Curvature: There is grade 1 retrolisthesis seen at the L4-5 level. Bone Marrow: Marrow is of normal overall signal. No acute vertebral body compression fractures. Spinal Cord: Conus medullaris terminates at the L1-L2 level. Visualized cord demonstrates normal signal and size. Paraspinous Soft Tissues: No paravertebral masses. T12-L1: Normal appearance. L1-L2: Normal appearance. L2-L3: The disc height and disc signal are relatively well preserved. Moderate generalized disc bulge is seen. Moderate facet joint hypertrophy is seen. Associated hypertrophy of the ligamentum flavum can be seen. Mild to moderate bilateral neural foraminal narrowing is seen. Mild to moderate central canal narrowing is seen. There has been progression of degenerative change compared to 2014 L3-L4: The disc height is well-preserved. Loss of disc signal is seen at this level. Moderate disc bulge is seen, with a central disc protrusion. Moderate facet joint hypertrophy is seen. There is mild left-sided and no significant right-sided neural foraminal narrowing seen. Moderate central canal narrowing is seen. These imaging findings have progressed compared to the prior study. L4-L5: Postoperative changes are seen at this level, with bilateral pedicle screws and a disc spacer. At least moderate disc bulge is seen. There is at least moderate bilateral neural foraminal narrowing seen. At least moderate central canal narrowing is seen. These imaging findings are similar to 2015. L5-S1: The disc height and disk signal are well-preserved. Moderate disc bulge is seen, which is eccentric to the right. Moderate prominent facet hypertrophy is seen. There is moderate to severe bilateral neural foraminal narrowing seen at this level. At least moderate central canal narrowing is seen. Compared to 2015, the degenerative changes are mildly progressed. IMPRESSION: No jl, acute abnormality is seen by MRI. Stable postoperative changes are seen at L4-5. Degenerative changes are seen, which have overall progressed compared to 2014. Dictated by: Hector Lai M.D. on 11/21/2019 at 15:12 Approved by: Hector Lai M.D. on 11/21/2019 at 15:17 CT scan - head: Radiologist's Impression: [place] [address] CT Scan Report Signed Patient: Lalo Han CMR#: [id number] : 1975Acct:[id number] Age/Sex: 44 / MDate of Service: 11/21/19 Loc: ED Accession Number: [id number] Procedure: CT head/brain wo con Ordering Provider: Leonidas Patel MD PROCEDURE: CT HEAD/BRAIN WO CON INDICATIONS: trauma TECHNIQUE: Noncontrast 4.5 mm thick angled axial sections acquired from the foramen magnum to the vertex, with coronal and sagittal reformats. For radiation dose reduction, the following was used: automated exposure control, adjustment of mA and/or kV according to patient size. COMPARISON: [facility], CT, HEAD WITHOUT CONTRAST, 07/26/2017, 3:49. [facility], CT, CT CERVICAL SPINE WO CON, 11/21/2019, 13:15. [facility], CT, CT CHEST ABD PEL WO CON, 11/21/2019, 13:15. [facility], CT, CT HEAD/BRAIN WO CON, 08/31/2017, 22:36. FINDINGS: Image quality: Excellent. CSF spaces: Basal cisterns are patent. No extra-axial fluid collections. Ventricles are normal in size and shape. Brain: No midline shift. No intracranial masses or hemorrhage. Patino-white matter interface is normal. Skull and face: Calvarium and visualized facial bones are intact, without suspicious lesions. Sinuses: Visualized sinuses and mastoids are clear. Bilateral joleen bullosa can be seen. There is mild leftward nasal septal deviation. IMPRESSION: No acute intracranial hemorrhage is seen. No acute intracranial process is seen. Dictated by: Hector Lai M.D. on 11/21/2019 at 12:33 Approved by: Hector Lai M.D. on 11/21/2019 at 12:35 CT - cervical spine: Radiologist's Impression: [address] [address] [address] Scan Report Signed Patient: Lalo Han CMR#: [id number] : 1975Acct:[id number] Age/Sex: 44 / MDate of Service: 11/21/19 Loc: ED Accession Number: [id number] Procedure: CT cervical spine wo con Ordering Provider: Leonidas Patel MD PROCEDURE: CT CERVICAL SPINE WO CON INDICATIONS: trauma TECHNIQUE: Noncontrast 3 mm thick sections acquired from the skull base to the T4 level. Sagittal and coronal reformats were then constructed. For radiation dose reduction, the following was used: automated exposure control, adjustment of mA and/or kV according to patient size. COMPARISON: [facility], CT, CT CHEST ABD PEL WO CON, 11/21/2019, 13:15. [facility], CT, CT HEAD/BRAIN WO CON, 11/21/2019, 13:15. [facility], CT, C-SPINE WITHOUT CONTRAST, 05/18/2013, 12:31. FINDINGS: Image quality: Excellent. Bones: No fractures or dislocations. Visualized superior ribs are intact. C4 through C7 fixation hardware is seen anteriorly. The fusion plate is well seated. No findings of hardware failure or hardware loosening are seen. Vertebral body fusion is seen within the fused region, with apparent bony interbody grafts. There is moderate disc space narrowing seen at C2-C3 and C3-C4. Bridging anterior osteophytes are seen at these levels. Postop directed endplate osteophytes are seen at the C3-C4 level. Mild grade 1 retrolisthesis is seen at C3-C4. Soft tissues: Prevertebral soft tissues are normal in thickness. No paravertebral hematomas. No apical pneumothoraces. IMPRESSION: No acute fractures are seen. Intact C4 through C7 anterior postoperative hardware. Focal premature C2-C3 and C3-C4 degenerative change. Dictated by: Hector Lai M.D. on 11/21/2019 at 12:35 Approved by: Hector Lai M.D. on 11/21/2019 at 12:37 CT scan chest abdomen pelvis: Radiologist's Impression: [address] [address] [address] Scan Report Signed Patient: Lalo Han [facility]#: [id number] : 1975Acct:[id number] Age/Sex: 44 / MDate of Service: 11/21/19 Loc: ED Accession Number: [id number] Procedure: CT chest abd pel wo con Ordering Provider: Leonidas Patel MD PROCEDURE: CT CHEST ABD PEL WO CON INDICATIONS: trauma TECHNIQUE: After the administration of oral contrast, 5 mm thick sections acquired from the lung apices to the symphysis pubis. 5 mm thick coronal and sagittal reformats acquired, with additional 7 mm coronal MIP reformats through the lungs. Additional 3 mm sagittal bone reconstruction images were reformatted through the spine. For radiation dose reduction, the following was used: automated exposure control, adjustment of mA and/or kV according to patient size. COMPARISON: [facility], CT, CT ABDOMEN PELVIS W CON, 01/19/2018, 13:47. [facility], CT, CT ANGIO CHEST PE PROTOCOL, 02/09/2019, 23:35. [facility], CT, CT CERVICAL SPINE WO CON, 11/21/2019, 13:15. [facility], CT, CT HEAD/BRAIN WO CON, 11/21/2019, 13:15. FINDINGS: Image quality: There is streak artifact through the upper abdomen. Evaluation is limited by lack of IV contrast. CHEST: Lungs and pleura: No acute pulmonary opacities. No pleural effusions or pneumothorax. Central and peripheral airways are patent are normal in caliber. Mediastinum: Heart size is normal. No pericardial effusion. No mediastinal adenopathy by CT size criteria. Thoracic aorta and central pulmonary arteries are normal in size. Esophagus is normal in caliber. No hiatal hernia. Chest wall: Remote right posterior rib fractures are seen, with relatively poor healing. No acute rib fractures can be seen. No axillary or supraclavicular adenopathy by size criteria. Thyroid gland demonstrates no significant noncontrast abnormality. ABDOMEN: Solid organs: The liver demonstrates a cirrhotic appearance, with a nodular contour. Gallbladder demonstrates gallstones within its lumen. The pancreas is small in size and demonstrates calcification along its course. Spleen is enlarged, measuring 15.5 cm in greatest axial dimension. No adrenal nodules. Both kidneys are normal in size, without hydronephrosis or nephrolithiasis. Peritoneum and bowel: Small and large bowel loops are normal in caliber and wall thickness. No free fluid or air. Nodes and vessels: No retroperitoneal or mesenteric adenopathy by size criteria. Aorta and inferior vena cava are normal in size. Miscellaneous: No ventral hernias. PELVIS: Genitourinary: Bladder wall thickness is normal. Miscellaneous: No inguinal hernias or adenopathy. Bones: Cervical spine fixation hardware is partially seen. At the L4-5 level, there is prior remote trauma seen with posterior fixation hardware. A disc spacer is also seen at this level. No findings of hardware failure or hardware loosening are seen. No suspicious bony lesions. No acute vertebral body compression fractures. Left sacroiliac joint fusion can be seen. Mild levoconvex scoliotic curvature is noted. IMPRESSION: No jl, acute posttraumatic abnormality is detected. Remote, poorly healed right posterior rib fractures, without an acute rib fracture seen. Incidental note is made of: Gallstones Cirrhotic appearing liver Splenomegaly Chronic pancreatitis Postoperative change of the cervical spine and L4-5 Left sacroiliac joint fusion. Note: Case discussed by telephone with Dr. Patle at 12:43 p.m. [place] time on November 21, 2019. Dictated by: Hector Lai M.D. on 11/21/2019 at 12:39 Approved by: Hector Lai M.D. on 11/21/2019 at 12:45 CT angiogram head and neck: Radiologist's Impression: [place] [address] CT Scan Report Signed Patient: Lalo Han CMR#: [id number] : 1975Acct:[id number] Age/Sex: 44 / MDate of Service: 11/21/19 Loc: ED Accession Number: [id number] Procedure: CT angio head and neck Ordering Provider: Leonidas Patel MD PROCEDURE: CT ANGIO HEAD AND NECK INDICATIONS: Trauma/arm weakness/headache TECHNIQUE: Noncontrast images were performed earlier in the day and not repeated. After the administration of intravenous contrast, 1 mm thick sections acquired from the aortic arch through the [place] of [place]. Post-contrast 4.5 mm thick sections then re-acquired from the foramen magnum to the vertex. 3-dimensional ikvqdok-xqtcbpnmo-ocvjrhdbtn (MIP) and/or volume rendering reformats were acquired of the central intracranial vasculature and neck separately. COMPARISON: [facility], CT, CT HEAD/BRAIN WO CON, 08/31/2017, 22:36. [facility], MR, MR LUMBAR SPINE WO CON, 11/21/2019, 15:28. [facility], MR, MR CERVICAL SPINE WO CON, 11/21/2019, 14:58. [facility], CT, CT CHEST ABD PEL WO CON, 11/21/2019, 13:15. [facility], CT, CT HEAD/BRAIN WO CON, 11/21/2019, 13:15. [facility], CT, CT CERVICAL SPINE WO CON, 11/21/2019, 13:15. FINDINGS: Image quality: Excellent. BRAIN: CSF spaces: Ventricles are normal in size and shape. Basal cisterns are patent. No extra-axial fluid collections. Brain: No midline shift. No intracranial bleeds or masses. Patino-white matter interface appears intact. Skull and face: Calvarium and facial bones appear intact, without suspicious lesions. Orbits appear normal. Sinuses: Sinuses and mastoids are clear. HEAD CT ANGIOGRAPHY: Anterior circulation: Intracranial internal carotid arteries are normal in size and flow. The flow within the paired anterior cerebral arteries is normal and symmetric. The flow within the middle cerebral arteries is normal and symmetric. The anterior communicating artery is seen. No aneurysms are seen. Posterior circulation: Visualized portions of the vertebral arteries demonstrate normal caliber, and join to form a normal appearing basilar artery. There is a prominent right posterior communicating artery seen, with an accompanying diminutive right P1 segment. This is attributed to a type origin of the right posterior cerebral artery, which is considered to be a normal developmental variant of typically no clinical consequence. Flow within the posterior cerebral arteries is normal and symmetric. No aneurysms are seen. NECK CT ANGIOGRAPHY: Carotid system: Incidental note is made of a common origin of the right brachiocephalic artery and the left common carotid artery (bovine type arch). This is considered to be a developmental variant of no clinical consequence. The origins of the common carotid arteries appear patent. The common carotid arteries demonstrate normal caliber and courses. The bifurcation regions are both widely patent. The internal carotid arteries demonstrate normal calibers and courses. Posterior circulation: The origins of the vertebral arteries both appear widely patent. The more superior extracranial portions of both vertebral arteries also demonstrate normal courses and calibers. They join to form a normal appearing basilar artery. Soft tissues: Visualized neck soft tissues demonstrate no suspicious abnormalities. Bones: No suspicious bony lesions. Visualized cervical spine appears normally aligned. C4 through C7 postoperative hardware is seen. IMPRESSION: No significant intracranial arterial abnormality is seen. Within the arteries of the neck, no hemodynamically significant stenosis can be seen. Incidental note is made of: type origin of the right posterior cerebral artery Bovine type aortic branching pattern Cervical spine fixation hardware Any quantitative measurements of stenosis were performed using NASCET criteria. Dictated by: Hector Lai M.D. on 11/21/2019 at 16:43 Approved by: Hector Lai M.D. on 11/21/2019 at 16:46 ECG Data Attestation: I personally reviewed and interpreted this ECG as follows: Interpretation: Normal sinus rhythm no ST elevation or depression. MDM Narrative Medical decision making narrative: Appropriate for transfer, needs neurosurgery services consult in services as well as trauma. 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, initial encounter Face lacerations Qualifiers: Encounter type: initial encounter Qualified Code(s): S01.81XA - Laceration without foreign body of other part of head, initial encounter Prescriptions: No Action (DME) BD U/F Hilda Pen Needle [id number] 0 .Route .MEDSUPPLY Qty: 100 RF: 3 Humalog KwikPen Insulin 100 unit/mL insulin pen 1 - 12 unit subcut TIDCC Qty: 1 RF: 3 Lantus Solostar U-100 Insulin 100 unit/mL (3 mL) insulin pen 25 unit SUBCUT BID Qty: 15 RF: 3 (DME) True Metrix Glucose Test Strip strip See Dose Instructions .ROUTE .MEDSUPPLY Qty: 100 RF: 1 (DME) True Metrix Blood Glucose Meter Qty: 1 RF: 0 True Metrix test strips strip 0 strip .Route .MEDSUPPLY RF: 0 prochlorperazine maleate [Compazine] 10 mg Tablet 10 mg PO Q6H PRN (Reason: Nausea) Qty: 30 RF: 2 ondansetron 4 mg tablet,disintegrating 4 mg PO QID PRN (Reason: nausea and vomiting) Qty: 30 RF: 3 imatinib [Gleevec] 100 MG tablet 300 mg PO QPM Qty: 90 RF: 11 lorazepam 1 mg Tablet 1 mg PO BID PRN (Reason: nauseas) Qty: 60 RF: 0 Syringes 1 syr miscellaneous DIRECTED RF: 0 ondansetron 4 mg tablet,disintegrating 4 mg PO Q6H Qty: 12 RF: 0 Maalox Maximum Strength 400-400-40 mg/5 mL suspension 5 ml PO QID PRN (Reason: indigestion) Qty: 355 RF: 0 Bacid 1 billion cell- 250 mg Tablet 1 ea PO TIDWM Qty: 90 RF: 0 docusate sodium [DOK] 100 mg Capsule 100 mg PO BID Qty: 60 RF: 0 oxycodone 5 mg Tablet 10 mg PO Q6-12H PRN (Reason: Pain, Moderate (4-6)) Qty: 15 RF: 0
[2019-11-21 13:48] LABS: Alanine Aminotransferase 44 IU/L (<50); Albumin 3.7 g/dL (3.5-5.0); Albumin Globulin Ratio 1.4 (1.0-2.8); Alkaline Phosphatase 90 U/L (38-126); Aspartate Aminotransferase 77 IU/L (17-59); BUN Creatinine Ratio 20.8 (6-22); Bilirubin Total 0.7 mg/dL (0.2-1.3); Blood Urea Nitrogen 16 mg/dL (9-20); Calcium 8.3 mg/dL (8.4-10.2); Carbon Dioxide 18 mmol/L (22-32); Chloride 107 mmol/L (98-107); Estimated Glomerular Filt Rate > 60.0 mL/min (>60); Ethanol (ETOH) 250 mg/dL; Globulin 2.7 g/dL (1.7-4.1); HEMOLYSIS < 15 (0-50); Potassium 3.8 mmol/L (3.4-5.1); Sodium 137 mmol/L (137-145); Total Protein 6.4 g/dL (6.3-8.2)
--- NOTE | 2019-11-21 13:53 | DI.MRI.S_ITS ---
PROCEDURE: MR CERVICAL SPINE WO CON INDICATIONS: Fall/injury/upper arm weakness TECHNIQUE: Noncontrast sagittal T1 spin echo and T2 fast spin echo, sagittal STIR, foraminal oblique sagittal T2 fast spin echo, and axial gradient echo or T2 fast spin echo through the cervical spine. COMPARISON: [facility], MR, L-SPINE W&WO CONTRAST, 12/29/2014, 13:46. [facility], MR, L-SPINE W&WO CONTRAST, 09/24/2014, 14:37. [facility], MR, L-SPINE W&WO CONTRAST, 07/10/2014, 15:26. [facility], MR, MR LUMBAR SPINE WO CON, 11/21/2019, 15:28. [facility], CT, CT CERVICAL SPINE WO CON, 11/21/2019, 13:15. FINDINGS: Image quality: This examination is limited by involuntary motion artifact. Alignment and Curvature: There is grade 1 retrolisthesis seen at the C3-C4 level. Bone Marrow: Marrow demonstrates normal overall signal. Spinal Cord: There is increased abnormal T2 weighted signal seen within the spinal cord at the C3-C4 level, as on series 3, image 12 and on series 6, image 11. Visualized spinal cord has normal size. No cerebellar tonsillar herniation. Paraspinous Soft Tissues: No paravertebral masses. Prevertebral soft tissues are normal in thickness. Postoperative changes are seen, with an anterior fusion plate C4 through C7. There is associated susceptibility artifact. Vertebral body fusion is seen C4 through C7. C2-C3: Moderate loss of disc height is seen. Loss of disc signal is seen. Bridging endplate osteophytes are seen. Reactive marrow endplate changes are seen, which are hyperintense on T1-weighted and T2-weighted imaging and most consistent with fatty metaplasia (Modic type II changes). At least moderate disc osteophyte complex is seen, which is eccentric to the right. Mild facet joint hypertrophy is seen. Moderate bilateral neural foraminal narrowing is seen, left worse than right. Mild to moderate central canal narrowing is seen. C3-C4: Moderate loss of disc height is seen. Loss of disc signal is seen. At least moderate disc osteophyte complex is seen. Bridging endplate osteophytes are seen. Mild to moderate facet hypertrophy is seen. There is moderate to severe bilateral neural foraminal narrowing seen. Moderate to severe central canal narrowing is seen. Associated ventral cord flattening is seen. C4-C5: Mild to moderate disc osteophyte complex is seen. There is moderate to severe right-sided and moderate left-sided neural foraminal narrowing seen. Mild central canal narrowing is seen. C5-C6: At least moderate disc osteophyte complex is seen, which is eccentric to the right. There is moderate to severe right-sided and at least moderate left-sided neural foraminal narrowing seen. Mild central canal narrowing is seen. C6-C7: At least moderate disc osteophyte complex is seen, which is eccentric to the right. Mild to moderate facet hypertrophy is seen. There is moderate to severe right-sided and at least moderate left-sided neural foraminal narrowing seen. Mild central canal narrowing is seen. C7-T1: Mild loss of disc height is seen. Loss of disc signal is seen. Mild to moderate disc osteophyte complex is seen. Mild facet joint hypertrophy is seen. There is mild to moderate right-sided and no left-sided neural foraminal narrowing seen. No significant central canal narrowing is seen. IMPRESSION: Abnormal cord signal can be seen within the C3-C4 level. 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 Differential diagnosis includes an acute process in this patient with a presenting history of neurological deficits after a fall, however. Fusion changes are seen C4 through C7. Degenerative changes are seen, which are most prominent at C3-C4. Dictated by: Hector Lai M.D. on 11/21/2019 at 14:56 Approved by: Hector Lai M.D. on 11/21/2019 at 15:07
--- NOTE | 2019-11-21 13:53 | DI.MRI.S_ITS ---
PROCEDURE: MR LUMBAR SPINE WO CON INDICATIONS: Fall/injury/leg weakness TECHNIQUE: Noncontrast sagittal T1 spin echo and T2 fast echo, sagittal STIR, and T2 fast spin echo through the lumbar spine. The patient terminated the examination before can be completed. No axial T1 weighted images were performed. COMPARISON: [facility], MR, L-SPINE W&WO CONTRAST, 12/29/2014, 13:46. [facility], MR, L-SPINE W&WO CONTRAST, 09/24/2014, 14:37. [facility], MR, L-SPINE W&WO CONTRAST, 07/10/2014, 15:26. [facility], MR, MR CERVICAL SPINE WO CON, 11/21/2019, 14:58. [facility], CT, CT CHEST ABD PEL WO CON, 11/21/2019, 13:15. FINDINGS: Image quality: Excellent. Alignment and Curvature: There is grade 1 retrolisthesis seen at the L4-5 level. Bone Marrow: Marrow is of normal overall signal. No acute vertebral body compression fractures. Spinal Cord: Conus medullaris terminates at the L1-L2 level. Visualized cord demonstrates normal signal and size. Paraspinous Soft Tissues: No paravertebral masses. T12-L1: Normal appearance. L1-L2: Normal appearance. L2-L3: The disc height and disc signal are relatively well preserved. Moderate generalized disc bulge is seen. Moderate facet joint hypertrophy is seen. Associated hypertrophy of the ligamentum flavum can be seen. Mild to moderate bilateral neural foraminal narrowing is seen. Mild to moderate central canal narrowing is seen. There has been progression of degenerative change compared to 2015 L3-L4: The disc height is well-preserved. Loss of disc signal is seen at this level. Moderate disc bulge is seen, with a central disc protrusion. Moderate facet joint hypertrophy is seen. There is mild left-sided and no significant right-sided neural foraminal narrowing seen. Moderate central canal narrowing is seen. These imaging findings have progressed compared to the prior study. L4-L5: Postoperative changes are seen at this level, with bilateral pedicle screws and a disc spacer. At least moderate disc bulge is seen. There is at least moderate bilateral neural foraminal narrowing seen. At least moderate central canal narrowing is seen. These imaging findings are similar to 2015. L5-S1: The disc height and disk signal are well-preserved. Moderate disc bulge is seen, which is eccentric to the right. Moderate prominent facet hypertrophy is seen. There is moderate to severe bilateral neural foraminal narrowing seen at this level. At least moderate central canal narrowing is seen. Compared to 2015, the degenerative changes are mildly progressed. IMPRESSION: No jl, acute abnormality is seen by MRI. Stable postoperative changes are seen at L4-5. Degenerative changes are seen, which have overall progressed compared to 2014. Dictated by: Hector Lai M.D. on 11/21/2019 at 15:12 Approved by: Hector Lai M.D. on 11/21/2019 at 15:17
[2019-11-21 14:03] LABS: Glucose 198 mg/dL (70-100)
[2019-11-21] MEDS: MORPHINE 4 MG/ML INJ IV (14:25)
[2019-11-21] MEDS: ONDANSETRON 4 MG/2 ML INJ IV (14:25)
[2019-11-21] MEDS: LORazepam 2 MG/ML INJ 0.5 MG IV (14:47)
[2019-11-21] MEDS: HYDROMORPHONE 0.5 MG INJ IV (16:03)
[2019-11-21] MEDS: LIDOCAINE 1% W/EPI 4 ML INJ (16:06)
--- NOTE | 2019-11-21 16:46 | DI.CT.S_ITS ---
PROCEDURE: CT ANGIO HEAD AND NECK INDICATIONS: Trauma/arm weakness/headache TECHNIQUE: Noncontrast images were performed earlier in the day and not repeated. After the administration of intravenous contrast, 1 mm thick sections acquired from the aortic arch through the [place] of [place]. Post-contrast 4.5 mm thick sections then re-acquired from the foramen magnum to the vertex. 3-dimensional eipdure-rettvhmfn-mrxzylcxqo (MIP) and/or volume rendering reformats were acquired of the central intracranial vasculature and neck separately. COMPARISON: [facility], CT, CT HEAD/BRAIN WO CON, 08/31/2017, 22:36. [facility], MR, MR LUMBAR SPINE WO CON, 11/21/2019, 15:28. [facility], MR, MR CERVICAL SPINE WO CON, 11/21/2019, 14:58. [facility], CT, CT CHEST ABD PEL WO CON, 11/21/2019, 13:15. [facility], CT, CT HEAD/BRAIN WO CON, 11/21/2019, 13:15. [facility], CT, CT CERVICAL SPINE WO CON, 11/21/2019, 13:15. FINDINGS: Image quality: Excellent. BRAIN: CSF spaces: Ventricles are normal in size and shape. Basal cisterns are patent. No extra-axial fluid collections. Brain: No midline shift. No intracranial bleeds or masses. Patino-white matter interface appears intact. Skull and face: Calvarium and facial bones appear intact, without suspicious lesions. Orbits appear normal. Sinuses: Sinuses and mastoids are clear. HEAD CT ANGIOGRAPHY: Anterior circulation: Intracranial internal carotid arteries are normal in size and flow. The flow within the paired anterior cerebral arteries is normal and symmetric. The flow within the middle cerebral arteries is normal and symmetric. The anterior communicating artery is seen. No aneurysms are seen. Posterior circulation: Visualized portions of the vertebral arteries demonstrate normal caliber, and join to form a normal appearing basilar artery. There is a prominent right posterior communicating artery seen, with an accompanying diminutive right P1 segment. This is attributed to a type origin of the right posterior cerebral artery, which is considered to be a normal developmental variant of typically no clinical consequence. Flow within the posterior cerebral arteries is normal and symmetric. No aneurysms are seen. NECK CT ANGIOGRAPHY: Carotid system: Incidental note is made of a common origin of the right brachiocephalic artery and the left common carotid artery (bovine type arch). This is considered to be a developmental variant of no clinical consequence. The origins of the common carotid arteries appear patent. The common carotid arteries demonstrate normal caliber and courses. The bifurcation regions are both widely patent. The internal carotid arteries demonstrate normal calibers and courses. Posterior circulation: The origins of the vertebral arteries both appear widely patent. The more superior extracranial portions of both vertebral arteries also demonstrate normal courses and calibers. They join to form a normal appearing basilar artery. Soft tissues: Visualized neck soft tissues demonstrate no suspicious abnormalities. Bones: No suspicious bony lesions. Visualized cervical spine appears normally aligned. C4 through C7 postoperative hardware is seen. IMPRESSION: No significant intracranial arterial abnormality is seen. Within the arteries of the neck, no hemodynamically significant stenosis can be seen. Incidental note is made of: type origin of the right posterior cerebral artery Bovine type aortic branching pattern Cervical spine fixation hardware Any quantitative measurements of stenosis were performed using NASCET criteria. Dictated by: Hector Lia M.D. on 11/21/2019 at 16:43 Approved by: Hector Lai M.D. on 11/21/2019 at 16:46
[2019-11-21] MEDS: HYDROMORPHONE 1 MG INJ IV ×3 (16:58→20:35)
[2019-11-21] MEDS: MAGNESIUM SULFATE 2 GM, FOLIC ACID 1 MG, THIAMINE 100 MG, MULTIVITAMIN 10 ML in SODIUM ... IV (16:58)
[2019-11-21 18:13] LABS: COVID19 -Nasal RAPID Negative (Negative)
[2019-11-21] MEDS: methylPREDNISolone 125 MG/2 ML VIAL IV (18:25)
--- NOTE | 2019-11-21 20:50 | PC.NURSE ---
Transport arrived to take pt to [facility]. Medicated w/1mg IV dilaudid for 8/10 pain. Pt remains weak in upper arms, able to lift up against gravity. No barrel cleaner in left hand. Partial barrel cleaner in right, slightly better than previous assessment. Diabetic blood sugar monitor sent home with caregiver.
== END 2019-11-21 21:03 | disposition short-term general hospital (02) ==
PROVIDERS: Emergency Provider Emergency Medicine
DX: S14.123A Central cord syndrome at C3 level of cervical spinal cord, initial encounter (principal); S01.81XA Laceration without foreign body of other part of head, initial encounter; R53.1 Weakness; R51 Headache; E11.9 Type 2 diabetes mellitus without complications; W01.198A Fall on same level from slipping, tripping and stumbling with subsequent striking against other object, initial encounter; Z11.59 Encounter for screening for other viral diseases
CPT/HCPCS: 12013; 36415; 51701; 70450; 70496; 70498; 71250; 72125; 72141; 72148; 74176; 80053; 80320; 81003; 82962; 85025; 87635; 93005; 96361; 96374; 96375; 96376; 99285; J1170; J2060; J2270; J2405; J2930; J3475; Q9967

== ENCOUNTER → 2020-01-18 13:14 | Outpatient (CLI) | payer OTHER, MEDICAID, SELFPAY ==
--- NOTE | 2020-01-18 | DI.RAD.S_ITS ---
PROCEDURE: XR CERVICAL SPINE 2V OR 3V INDICATIONS: Arthrodesis status TECHNIQUE: 3 view(s) of the cervical spine were acquired. COMPARISON: [facility], CT, CT ANGIO HEAD AND NECK, 11/21/2019, 17:08. FINDINGS: Bones: No definite acute fracture although exam limited by extensive postsurgical and discogenic changes as well as diffuse osteopenia. ACDF from the level of C4-C7. Posterior spinal fixation with paraspinal rasheed and articular pillar screws from C2-C6. Hardware appears intact. Evaluation for hardware loosening is precluded by severe diffuse osteopenia. Multilevel degenerative endplate sclerosis and spurring. Diffuse facet arthropathy. Moderate narrowing of the C2-C3 and C3-C4 disc spaces. Mild levocurvature. Probable laminectomies from the level of C3-C6 although recommend correlation with operative history as this is not well seen. Soft tissues: No prevertebral soft tissue swelling. IMPRESSION: Extensive postsurgical and advanced degenerative changes as above Dictated by: Yariel Dumont M.D. on 01/18/2020 at 14:22 Approved by: Yariel Dumont M.D. on 01/18/2020 at 14:26
== END ==
PROVIDERS: Referring Provider Physician Assistant; Visit Provider Physician Assistant
DX: Z09 Encounter for follow-up examination after completed treatment for conditions other than malignant neoplasm (principal); Z98.1 Arthrodesis status; M85.88 Other specified disorders of bone density and structure, other site; M47.812 Spondylosis without myelopathy or radiculopathy, cervical region; M48.02 Spinal stenosis, cervical region
CPT/HCPCS: 72040

== ENCOUNTER 2020-01-20 13:04 | Emergency (ER) | payer OTHER, MEDICAID, SELFPAY ==
[2020-01-20 13:09] VITALS: BP 136/85; PULSE 84; RESP 17; TEMP 37.2; O2SAT 100
[2020-01-20 13:10] VITALS: BP 136/85; PULSE 89; O2SAT 98
[2020-01-20 13:12] VITALS: RESP 14; TEMP 36.6
--- NOTE | 2020-01-20 13:31 | ED.SKABFB ---
HPI - Skin/Abscess/Foreign Bdy <Shawn MILA Salamanca - Last Filed: 01/20/20 15:58> General Chief complaint: Skin/Abscess/Foreign Body Stated complaint: wound on lip, sent by home nurse Time Seen by Provider: 01/20/20 13:09 Source: patient Mode of arrival: Ambulatory Limitations: no limitations History of Present Illness HPI narrative: This is a 44-year-old male, former smoker, who is currently being treated for osteomyelitis in right foot with home health care for wound care and started on Septra DS yesterday afternoon, history of diabetes and leukemia but no currently on chemotherapy , C-spine fracture from a recent fall and wears c collar for this presents to ED with upper lip swelling and pain for last 34 hours. Patient denies fever, chills, nausea or vomiting. Patient reports the pain and swelling is spreading to nose and slightly difficulty breathing through right side nostril. Patient reports he had she yesterday using a new razor but prior to that shaved about a week ago using old razor. He was sent to ED for an evaluation by home healthcare nurse and concerned for spider bite. Patient states he had seen spiders in his house. Patient also has several small skin lesions on right lower arm. Patient swelling to his throat, tongue or known exposure to allergy reaction. Patient denies injury or trauma to lips. Patient came in with [place] cervical collar and has clean and intact compression dressing on right lower leg. Patient reports dressing has been changed today by home health nurse and wound size is in 1.5 x 1.5 cm appears to be improving. Related Data Home Medications Medication Instructions Recorded Confirmed Syringes 1 syr MISCELLANEOUS DIRECTED 11/10/17 03/08/19 True Metrix test strips 0 strip .ROUTE .MEDSUPPLY 04/06/18 03/08/19 sulfamethoxazole-trimethoprim 01/20/20 Previous Rx's Medication Instructions Recorded BD U/F Hilda Pen Needle [id number] #100 each 06/13/18 insulin lispro 100 unit/mL 1 - 12 unit SUBCUT TIDCC #1 ea 06/13/18 subcutaneous pen insulin glargine 100 unit/mL (3 25 unit SUBCUT BID #15 ml 08/02/18 mL) subcutaneous pen prochlorperazine maleate 10 mg PO Q6H PRN #30 tab 10/04/18 [Compazine] L.acidoph-L.bulg-B.bif-S.therm 1 ea PO TIDWM #90 tab 10/24/18 [Bacid (L. acidophilus)] docusate sodium [DOK] 100 mg PO BID #60 cap 10/24/18 oxycodone 10 mg PO Q6-12H PRN #15 tab 10/24/18 ondansetron 4 mg PO QID PRN #30 tab 11/22/18 True Metrix Glucose Test Strip #100 each NS 11/29/18 True Metrix Blood Glucose Meter #1 ea 12/09/18 alum-mag hydroxide-simeth [Maalox 5 ml PO QID PRN #355 ml 04/23/19 Maximum Strength] ondansetron 4 mg PO Q6H #12 tab 04/23/19 imatinib [Gleevec] 300 mg PO QPM #90 tab 08/17/19 lorazepam 1 mg PO BID PRN #60 tab 09/18/19 cephalexin [Keflex] 500 mg PO Q6H 7 Days #28 cap 01/20/20 oxycodone 5 mg PO BID PRN #5 tab 01/20/20 Allergies Allergy/AdvReac Type Severity Reaction Status Date / Time Penicillins [PENICILLINS] Allergy Severe Tongue Verified 01/20/20 13:53 swelling, hives adhesive Allergy Unknown PLASTIC Verified 01/20/20 13:12 TAPE latex [LATEX] Allergy Unknown Verified 01/20/20 13:12 Review of Systems <MILA Porras - Last Filed: 01/20/20 15:58> Review of Systems Narrative: General: Denies fever, chills, fatigue, malaise, sweats. HEENT: Denies sinus pain, ear pain, sore throat, difficulty swallowing, dizziness. Respiratory: Denies dyspnea, cough, wheezing, hemoptysis, sputum. Cardiovascular: Denies chest pain, palpitations, orthopnea, edema. Gastrointestinal: Denies nausea, vomiting, abdominal pain, diarrhea, constipation, melena. : Denies dysuria, frequency, incontinence, hematuria, urinary retention. Musculoskeletal: Denies weakness, joint pain or bony pain. Skin: See HPI Neurologic: Denies weakness, headache, numbness, change in speech, confusion, seizures, incoordination. Psychiatric: No concerning psychosocial issues. 12-point review of systems is negative except for those stated above. Patient History <MILA Porras - Last Filed: 01/20/20 15:58> Medical History (Updated 01/20/20 @ 14:28 by MILA Porras) Alcoholism (Acute) Central cord syndrome at C3 level of cervical spinal cord (Acute) CML (chronic myelocytic leukemia) (Acute) Insulin dependent diabetes mellitus (Acute) Thrombocytopenia (Acute) Surgical History Status post appendectomy Family History Grandfather Diabetes mellitus Mother Cancer Social History (Updated 01/20/20 @ 14:28 by MILA Porras) household members: none Smoking Status: Former smoker alcohol intake: former substance use type: former substance user Smoking Status: Former smoker alcohol intake frequency: a few times a week Alcohol type: beer Substance Use Type: does not use Exam <MILA Porras - Last Filed: 01/20/20 15:58> Narrative Exam Narrative: General appearance: well developed, well nourished, in no acute distress. Head: normocephalic, atraumatic, no scalp lesions, non-tender. ENT: Hearing grossly intact. Nose without bleeding, purulent discharge, septal hematoma or deviation. Right-sided turbinate with moderate erythema or swelling. Facial sinuses nontender to palpate. Mucous membrane moist. Right>left upper lip edema. A tiny white head on pore right above right lip. Induration appeciateted on the upper lip without any drainage. No bite geraldine appreciated on the upper lip. Throat without erythema, tonsillar hypertrophy or exudate. Uvula in midline, airway patent. Neck/Thyroid: neck supple, full range of motion, no visible masses or meningeal signs. No JVD, non-tender without lymphadenopathy. Skin: See ENT. Right lower leg has clean and intact dressing on by home health nurse that has been changed today and this has not been removed for an inspection. Warm and dry and appropriate color for ethnicity. Heart: no clubbing, no cyanosis, no edema. S1 and S2 normal. RRR w/o murmurs, clicks, or bruits. Lungs: Breathing even and unlabored. No stridor. No accessory muscles used. Able to speak in full sentences. Chest: normal shape and expansion. Abdomen: non-obese, non-distended. Neurologic: alert and oriented. Cognitive exam, LOSS CONTROL MANAGER and PNS grossly intact on informal exam. Psych: good eye contact, normal affect. Initial Vital Signs Initial Vital Signs: Vital Signs Temperature 98.9 F 01/20/20 13:09 Pulse Rate 84 01/20/20 13:09 Respiratory Rate 17 01/20/20 13:09 Blood Pressure 136/85 01/20/20 13:09 Pulse Oximetry 100 01/20/20 13:09 <Lavon Gomez DO - Last Filed: 01/20/20 18:11> Initial Vital Signs Initial Vital Signs: Vital Signs Temperature 98.9 F 01/20/20 13:09 Pulse Rate 84 01/20/20 13:09 Respiratory Rate 17 01/20/20 13:09 Blood Pressure 136/85 01/20/20 13:09 Pulse Oximetry 100 01/20/20 13:09 Scores <MILA Porras - Last Filed: 01/20/20 15:58> GCS [place] coma scale eye opening: Spontaneous [place] coma scale verbal response: Orientated [place] coma scale motor response: Obey commands [place] coma scale total score: 15 qSOFA Altered Mental Status (GCS <15): No Respiratory rate greater than/equal to 22: No Systolic blood pressure less than or equal to 100: No qSOFA Total: 0 0-1 Not High Risk 1-3 High risk Course <MILA Porras - Last Filed: 01/20/20 15:58> Orders Ordered: Discontinued Medications Cephalexin HCl (Keflex) 500 mg PO NOW ONE Stop: 01/20/20 13:51 Last Admin: 01/20/20 14:25 Dose: 500 mg Documented by: BRENDEN Oxycodone/Acetaminophen (Percocet 5/325) 1 tab PO NOW ONE Stop: 01/20/20 13:50 Last Admin: 01/20/20 14:25 Dose: 1 tab Documented by: BRENDEN Vital Signs Vital signs: Vital Signs - 8 hr 01/20/20 13:09 01/20/20 13:10 01/20/20 13:12 Temperature 98.9 F 97.9 F Pulse Rate 84 89 Respiratory Rate 17 14 Blood Pressure 136/85 136/85 Pulse Oximetry 100 98 01/20/20 14:58 Temperature Pulse Rate 88 Respiratory Rate 15 Blood Pressure 134/86 Pulse Oximetry 95 <Lavon Gomez DO - Last Filed: 01/20/20 18:11> Orders Ordered: Discontinued Medications Cephalexin HCl (Keflex) 500 mg PO NOW ONE Stop: 01/20/20 13:51 Last Admin: 01/20/20 14:25 Dose: 500 mg Documented by: BRENDEN Oxycodone/Acetaminophen (Percocet 5/325) 1 tab PO NOW ONE Stop: 01/20/20 13:50 Last Admin: 01/20/20 14:25 Dose: 1 tab Documented by: BRENDEN Vital Signs Vital signs: Vital Signs - 8 hr 01/20/20 13:09 01/20/20 13:10 01/20/20 13:12 Temperature 98.9 F 97.9 F Pulse Rate 84 89 Respiratory Rate 17 14 Blood Pressure 136/85 136/85 Pulse Oximetry 100 98 01/20/20 14:58 Temperature Pulse Rate 88 Respiratory Rate 15 Blood Pressure 134/86 Pulse Oximetry 95 MDM - Skin/Abscess/Foreign Bdy <MILA Porras - Last Filed: 01/20/20 15:58> Differential Diagnosis Differential diagnosis: Likely abscess of skin or subcutaneous tissue, allergic reaction to drug, cellulitis and insect bites Medical Records Attestation: I reviewed the patient's medical records. MDM Narrative Medical decision making narrative: This is a 44-year-old male who presents to ED with upper lip swelling and pain for last 34 hours. Patient shaved yesterday morning using a clean razor. Physical exam appreciated induration on right upper lip without drainage. No significant warmth to touch. No significant swelling and redness extending to nose or upper face. Mild erythema and swelling to right turbinate but no septal hematoma. Patient is taking Septra DS since yesterday afternoon for p.m. with ongoing right lateral foot infection after had taken Vanco IV for 6 weeks and stopped 2-3 weeks ago and he has been following infectious disease, wound care doctors at [facility] and has follow up appointment next week on . He states also has database management specialist appointment on Wednesday. Patient does not appears to be toxic. Patient does not endorses constitutional symptoms. Patient's vital signs with normotensive, respiration rate, heart rate and afebrile in ED. since patient has started Septra DS yesterday afternoon without much improvement as of now, we will cover with Keflex for possible strep infection as well. Patient advised to use warm pack on affected site about 4 times a day as needed for discomfort and promote healing. Patient requesting pain medication and states is not able to tolerate Tylenol Motrin due to previous condition from chemotherapy and leukemia. Discussed a few tabs of oxycodone will be provided but he needs to follow up with his primary care physician for further pain medication prescription. Patient reports he hasn't followed up with PCP for a month for additional pain medication Rx. Return precautions were discussed with patient and advised to follow with primary care physician, wound care provider, or infectious disease specialist in 2-3 days after he started Keflex as well. Patient verbalized understanding and agreement with the treatment plan. Dr. Gomez consulted with the treatment plan and the patient's current treatment with medical history with diabetes, osteomyelitis, C-spine fracture, and leukemia. Discharge Plan Departure Patient Disposition: Home Clinical Impression: Cellulitis of skin of lip Discharge Date/Time: 01/20/20 14:58 Instructions: DI for Cellulitis -- Adult Activity Restrictions/Additional Instructions: You have been diagnosed with [cellulitis on right side lip. You're currently on Septra DS for foot infection. Will add Keflex to cover strep infection. You reported that you can take penicillin without reaction and you have been desensitized for this.]. What to do: *Take your medications as directed. Continue to take her medications and add Keflex 4 times a day for next 7 days. You can take oxycodone as needed for pain. Please follow-up with your doctor for additional pain medication request. Please use warm pack on affected site 4 times a day. This medication has been transmitted to [facility]. *Follow up with your primary care provider/wound care provider in 2-3 days, call for an appointment. Let them know you were seen in the ED and that we asked you to be seen in follow up. *Return to ED if you have any new, worsening, or concerning symptoms, such as [increasing redness, swelling, pain, fever, chills, nausea or vomiting, chest pain breathing difficulty fainting like episodes, or any acute concerns]. Prescriptions: New cephalexin [Keflex] 500 mg capsule 500 mg PO Q6H 7 Days Qty: 28 RF: 0 oxycodone 5 mg tablet 5 mg PO BID PRN (Reason: pain) Qty: 5 RF: 0 No Action (DME) BD U/F Hilda Pen Needle [id number] 0 .Route .MEDSUPPLY Qty: 100 RF: 3 Humalog KwikPen Insulin 100 unit/mL insulin pen 1 - 12 unit subcut TIDCC Qty: 1 RF: 3 Lantus Solostar U-100 Insulin 100 unit/mL (3 mL) insulin pen 25 unit SUBCUT BID Qty: 15 RF: 3 (DME) True Metrix Glucose Test Strip strip See Dose Instructions .ROUTE .MEDSUPPLY Qty: 100 RF: 1 (DME) True Metrix Blood Glucose Meter Qty: 1 RF: 0 True Metrix test strips strip 0 strip .Route .MEDSUPPLY RF: 0 prochlorperazine maleate [Compazine] 10 mg Tablet 10 mg PO Q6H PRN (Reason: Nausea) Qty: 30 RF: 2 ondansetron 4 mg tablet,disintegrating 4 mg PO QID PRN (Reason: nausea and vomiting) Qty: 30 RF: 3 imatinib [Gleevec] 100 MG tablet 300 mg PO QPM Qty: 90 RF: 11 lorazepam 1 mg Tablet 1 mg PO BID PRN (Reason: nauseas) Qty: 60 RF: 0 Syringes 1 syr miscellaneous DIRECTED RF: 0 ondansetron 4 mg tablet,disintegrating 4 mg PO Q6H Qty: 12 RF: 0 Maalox Maximum Strength 400-400-40 mg/5 mL suspension 5 ml PO QID PRN (Reason: indigestion) Qty: 355 RF: 0 sulfamethoxazole-trimethoprim 800-160 mg tablet RF: 0 Bacid 1 billion cell- 250 mg Tablet 1 ea PO TIDWM Qty: 90 RF: 0 docusate sodium [DOK] 100 mg Capsule 100 mg PO BID Qty: 60 RF: 0 oxycodone 5 mg Tablet 10 mg PO Q6-12H PRN (Reason: Pain, Moderate (4-6)) Qty: 15 RF: 0 <Lavon Gomez DO - Last Filed: 01/20/20 18:11> Cosign ED Attending Cosignature Attestation: I was immediately available in the department for consultation. This documentation has been reviewed and I agree with assessment and plan. Supervised by Lavon Gomez DO
[2020-01-20] MEDS: cephALEXin 250 MG CAPSULE 500 MG PO (14:25)
[2020-01-20] MEDS: OXYCODONE/ACETAMINOPHEN 5/325 TABLET 1 TAB PO (14:25)
[2020-01-20 14:58] VITALS: BP 134/86; PULSE 88; RESP 15; O2SAT 95
== END 2020-01-20 14:58 | disposition home or self-care (01) ==
PROVIDERS: Emergency Provider Nurse Practitioner Family
DX: K13.0 Diseases of lips (principal); M86.9 Osteomyelitis, unspecified
CPT/HCPCS: 99283

== ENCOUNTER 2020-03-19 12:53 | Emergency (ER) | payer OTHER, MEDICAID, SELFPAY ==
[2020-03-19 13:04] VITALS: BP 147/93; PULSE 92; RESP 18; TEMP 36.6; O2SAT 100; BMI 22.4
--- NOTE | 2020-03-19 13:26 | DI.US.S_ITS ---
PROCEDURE: US PERIPH VENOUS LOW EXTREM RT INDICATIONS: PAIN AND SWELLING RIGHT LEG TECHNIQUE: Real-time imaging, as well as color and pulse Doppler interrogation, were performed of the lower extremity deep veins from the inguinal ligament to the popliteal fossa. COMPARISON: None. FINDINGS: The common femoral, femoral and popliteal veins are normally compressible, and free of intraluminal thrombus. Color and pulse Doppler demonstrate normal phasic intraluminal flow. There is normal augmentation response to distal compression maneuver. Multiple lymph nodes are noted in right inguinal region measures up to 2.5 x 1.6 x 0.9 cm in size with increased vascularity. Right calf soft tissue edema is also noted. IMPRESSION: 1. No evidence of DVT in visualized right lower extremity veins. 2. Right calf edema. Mildly prominent right inguinal lymph nodes suggestive of reactive inflammatory lymphadenopathy. Dictated by: Mk Cordero M.D. on 03/19/2020 at 13:41 Approved by: Mk Cordero M.D. on 03/19/2020 at 13:46
[2020-03-19] MEDS: SODIUM CHLORIDE 0.9% 1,000 ML 1000 ML IV (13:40)
--- NOTE | 2020-03-19 13:41 | ED_ITS ---
HPI - Skin/Abscess/Foreign Bdy <Zainab Amador, PRODUCT DEVELOPMENT COORDINATOR-BC - Last Filed: 03/19/20 18:36> General Chief complaint: Skin/Abscess/Foreign Body Stated complaint: Big Red Bump on Butt and Rt Cano Time Seen by Provider: 03/19/20 13:10 Source: patient Mode of arrival: Ambulatory Limitations: no limitations History of Present Illness HPI narrative: The patient is a 44-year-old male former smoker uses smokeless tobacco who presents with a chief complaint of a bump on his buttock as well as a red painful swollen right lower leg. He states that his home health nurse notice what appears to be a small abscess on his right buttock he yesterday. He also notes that he has a red painful area all around his right lower leg. He does note that he has a history of osteomyelitis and his 5th toe was removed and now he sees wound care. He denies any fevers, does complain of some nausea. He denies any muscle aches or chills, but states that he shakes from the pain. He does note that he has history of diabetes, his sugars have been in the 200s as well as CML, thrombocytopenia, history of alcoholism. Related Data Home Medications Medication Instructions Recorded Confirmed Syringes 1 syr MISCELLANEOUS DIRECTED 11/10/17 03/08/19 True Metrix test strips 0 strip .ROUTE .MEDSUPPLY 04/06/18 03/08/19 sulfamethoxazole-trimethoprim 01/20/20 Previous Rx's Medication Instructions Recorded BD U/F Hilda Pen Needle [id number] #100 each 06/13/18 insulin lispro 100 unit/mL 1 - 12 unit SUBCUT TIDCC #1 ea 06/13/18 subcutaneous pen insulin glargine 100 unit/mL (3 25 unit SUBCUT BID #15 ml 08/02/18 mL) subcutaneous pen prochlorperazine maleate 10 mg PO Q6H PRN #30 tab 10/04/18 [Compazine] L.acidoph-L.bulg-B.bif-S.therm 1 ea PO TIDWM #90 tab 10/24/18 [Bacid (L. acidophilus)] docusate sodium [DOK] 100 mg PO BID #60 cap 10/24/18 oxycodone 10 mg PO Q6-12H PRN #15 tab 10/24/18 ondansetron 4 mg PO QID PRN #30 tab 11/22/18 True Metrix Glucose Test Strip #100 each NS 11/29/18 True Metrix Blood Glucose Meter #1 ea 12/09/18 alum-mag hydroxide-simeth [Maalox 5 ml PO QID PRN #355 ml 04/23/19 Maximum Strength] ondansetron 4 mg PO Q6H #12 tab 04/23/19 imatinib [Gleevec] 300 mg PO QPM #90 tab 08/17/19 lorazepam 1 mg PO BID PRN #60 tab 09/18/19 oxycodone 5 mg PO BID PRN #5 tab 01/20/20 cephalexin 500 mg PO TID #30 cap 03/19/20 sulfamethoxazole-trimethoprim 1 tab PO BID #20 tab 03/19/20 [Bactrim DS] Allergies Allergy/AdvReac Type Severity Reaction Status Date / Time Penicillins [PENICILLINS] Allergy Severe Tongue Verified 03/19/20 13:07 swelling, hives adhesive Allergy Unknown PLASTIC Verified 03/19/20 13:07 TAPE latex [LATEX] Allergy Unknown Verified 03/19/20 13:07 Review of Systems <ZACH Lauren - Last Filed: 03/19/20 18:36> Review of Systems Narrative: GENERAL: Denies chills, fatigue, malaise, fever, sweats. HEENT: Denies sinus pain, ear pain, sore throat, difficulty swallowing, dizziness. RESPIRATORY: Denies dyspnea, cough, wheezing, hemoptysis, sputum. CARDIOVASCULAR: Denies chest pain, palpitations, orthopnea, edema, GASTROINTESTINAL: Denies nausea, vomiting, abdominal pain, diarrhea, constipation, melena. : Denies dysuria, frequency, incontinence, hematuria, urinary retention. MUSCULOSKELETAL: See HPI SKIN: See HPI NEUROLOGIC: Denies weakness, headache, numbness, change in speech, confusion, seizures, incoordination. PSYCHIATRIC: No concerning psychosocial issues. 12 point review of systems is negative except for those stated above Patient History <ZACH Lauren - Last Filed: 03/19/20 18:36> Medical History (Updated 03/19/20 @ 16:42 by Zainab Marjorie, PRODUCT DEVELOPMENT COORDINATOR-BC) Alcoholism Central cord syndrome at C3 level of cervical spinal cord CML (chronic myelocytic leukemia) Insulin dependent diabetes mellitus Thrombocytopenia Surgical History Status post appendectomy Family History Grandfather Diabetes mellitus Mother Cancer Social History (Updated 01/20/20 @ 14:28 by IMLA Porras) household members: none Smoking Status: Former smoker alcohol intake: former substance use type: former substance user Smoking Status: Former smoker tobacco type: smokeless tobacco alcohol intake frequency: a few times a week Alcohol type: beer Substance Use Type: does not use Exam <DAVID Lauren- - Last Filed: 03/19/20 18:36> Narrative Exam Narrative: GENERAL: This is a well-nourished, well-developed patient, appears uncomfortable HEAD: Atraumatic. Normocephalic. No temporal or scalp tenderness. EYES: Pupils equal round and reactive. Extraocular motions intact. No scleral icterus. No injection or drainage. ENT: Nose without bleeding, purulent drainage or septal hematoma. Wearing a mask. Airway patent. NECK: Trachea midline. No JVD or lymphadenopathy. Supple, nontender, no meningeal signs. CARDIOVASCULAR: Regular rate and rhythm RESPIRATORY: Clear to auscultation. Breath sounds equal bilaterally. No wheezes, rales, or rhonchi. No cough. No increased respiratory effort. No accessory muscle use. GASTROINTESTINAL: Abdomen soft, non-tender, nondistended. No hepato-spl enomegaly, or palpable masses. No guarding. EXTREMITIES: Bilateral pedal pulses intact, see skin exam BACK: Nontender without deformity or crepitance. No flank tenderness. NEURO: AOx3. SKIN: 1 cm palpable abscess noted on right buttock, draining purulent fluid. Very slight overlying erythema contain it to abscess. Right lower leg with 1 cm abrasion on anterior aspect, erythema noted from ankle to just distal to knee almost circumferential, outlined. Site of Right 5th toe amputation dressed with nonstick, appears clean dry and intact. Initial Vital Signs Initial Vital Signs: Vital Signs Temperature 97.9 F 03/19/20 13:04 Pulse Rate 92 H 03/19/20 13:04 Respiratory Rate 18 03/19/20 13:04 Blood Pressure 147/93 H 03/19/20 13:04 Pulse Oximetry 100 03/19/20 13:04 <Jermaine Dlay DO - Last Filed: 03/19/20 18:41> Initial Vital Signs Initial Vital Signs: Vital Signs Temperature 97.9 F 03/19/20 13:04 Pulse Rate 92 H 03/19/20 13:04 Respiratory Rate 18 03/19/20 13:04 Blood Pressure 147/93 H 03/19/20 13:04 Pulse Oximetry 100 03/19/20 13:04 Scores <ZACH Lauren - Last Filed: 03/19/20 18:36> GCS Myrna coma scale eye opening: Spontaneous [place] coma scale verbal response: Orientated Myrna coma scale motor response: Obey commands [place] coma scale total score: 15 Course <ZACH Lauren - Last Filed: 03/19/20 18:36> Orders Ordered: ED Orders 03/19/20 13:26 US periph venous low extrem rt Stat 03/19/20 13:35 Wound Culture and Gram Stain Stat 03/19/20 13:39 C-Reactive Protein Quant Stat Complete Blood Count AUTO DIFF Stat Comprehensive Metabolic Panel Stat Erythrocyte Sedimentation Rate Stat Lactate (Lactic Acid) Stat Procalcitonin Stat 03/19/20 14:20 Blood Culture Stat Discontinued Medications Cephalexin HCl (Cephalexin 250 Mg Capsule) 500 mg PO NOW ONE Stop: 03/19/20 15:27 Last Admin: 03/19/20 15:40 Dose: 500 mg Documented by: ELISABETH Sodium Chloride (Normal Saline 0.9%) 1,000 mls @ 1,000 mls/hr IV BOLUS ONE Stop: 03/19/20 14:30 Last Infusion: 03/19/20 18:24 Dose: 0 mls/hr Documented by: Admin: 03/19/20 13:40 Dose: 1,000 mls/hr Documented by: ELISABETH Morphine Sulfate (Morphine 4 Mg/Ml Inj) 4 mg IV NOW ONE Stop: 03/19/20 14:25 Last Admin: 03/19/20 14:32 Dose: 4 mg Documented by: ELISABETH Morphine Sulfate (Morphine 4 Mg/Ml Inj) 4 mg IV NOW ONE Stop: 03/19/20 15:27 Last Admin: 03/19/20 15:40 Dose: 4 mg Documented by: ELISABETH Ondansetron HCl (Ondansetron 4 Mg/2 Ml Inj) 4 mg IV NOW ONE Stop: 03/19/20 14:25 Last Admin: 03/19/20 14:32 Dose: 4 mg Documented by: ELISABETH Trimethoprim/Sulfamethoxazole (Trimeth/Sulfa 160/800 (Ds) Tablet) 1 tab PO NOW ONE Stop: 03/19/20 15:27 Last Admin: 03/19/20 15:40 Dose: 1 tab Documented by: ELISABETH Vital Signs Vital signs: Vital Signs - 8 hr 03/19/20 13:04 03/19/20 17:35 Temperature 97.9 F Pulse Rate 92 H 82 Respiratory Rate 18 16 Blood Pressure 147/93 H 121/82 Pulse Oximetry 100 98 <Jermaine Daly DO - Last Filed: 03/19/20 18:41> Orders Ordered: ED Orders 03/19/20 13:26 US periph venous low extrem rt Stat 03/19/20 13:35 Wound Culture and Gram Stain Stat 03/19/20 13:39 C-Reactive Protein Quant Stat Complete Blood Count AUTO DIFF Stat Comprehensive Metabolic Panel Stat Erythrocyte Sedimentation Rate Stat Lactate (Lactic Acid) Stat Procalcitonin Stat 03/19/20 14:20 Blood Culture Stat Discontinued Medications Cephalexin HCl (Cephalexin 250 Mg Capsule) 500 mg PO NOW ONE Stop: 03/19/20 15:27 Last Admin: 03/19/20 15:40 Dose: 500 mg Documented by: ELISABETH Sodium Chloride (Normal Saline 0.9%) 1,000 mls @ 1,000 mls/hr IV BOLUS ONE Stop: 03/19/20 14:30 Last Infusion: 03/19/20 18:24 Dose: 0 mls/hr Documented by: Admin: 03/19/20 13:40 Dose: 1,000 mls/hr Documented by: ELISABETH Morphine Sulfate (Morphine 4 Mg/Ml Inj) 4 mg IV NOW ONE Stop: 03/19/20 14:25 Last Admin: 03/19/20 14:32 Dose: 4 mg Documented by: ELISABETH Morphine Sulfate (Morphine 4 Mg/Ml Inj) 4 mg IV NOW ONE Stop: 03/19/20 15:27 Last Admin: 03/19/20 15:40 Dose: 4 mg Documented by: SMICHEAU Ondansetron HCl (Ondansetron 4 Mg/2 Ml Inj) 4 mg IV NOW ONE Stop: 03/19/20 14:25 Last Admin: 03/19/20 14:32 Dose: 4 mg Documented by: ELISABETH Trimethoprim/Sulfamethoxazole (Trimeth/Sulfa 160/800 (Ds) Tablet) 1 tab PO NOW ONE Stop: 03/19/20 15:27 Last Admin: 03/19/20 15:40 Dose: 1 tab Documented by: ELISABETH Vital Signs Vital signs: Vital Signs - 8 hr 03/19/20 13:04 03/19/20 17:35 Temperature 97.9 F Pulse Rate 92 H 82 Respiratory Rate 18 16 Blood Pressure 147/93 H 121/82 Pulse Oximetry 100 98 MDM - Skin/Abscess/Foreign Bdy <DAVID Lauren-BC - Last Filed: 03/19/20 18:36> Lab Data Result diagrams: 03/19/20 13:39 03/19/20 13:39 Labs: Lab Results 03/19/20 03/19/20 03/19/20 Range/Units 13:39 13:39 13:39 WBC 7.9 (4.5-11.0) X10^3/uL RBC 2.92 L (4.5-5.9) X10^6/uL Hgb 8.6 L (13.5-17.5) g/dL Hct 26.3 L (41-53) % MCV 90.2 (80-100) fL MCH 29.5 (26-34) PG MCHC 32.8 (30-36) % RDW 17.4 H (11.6-14.8) % Plt Count 37 L (150-400) X10^3/uL Neut % (Auto) 83.0 H (50-75) % Lymph % (Auto) 9.9 L (25-40) % Toole % (Auto) 4.7 (3-14) % Eos % (Auto) 2.1 (2-4) % Baso % (Auto) 0.3 (0-2) % Neut # (Auto) 6500 (8976-8464) /uL Lymph # (Auto) 800 L (9322-5782) /uL Toole # (Auto) 400 (0-900) /uL Eos # (Auto) 200 (0-450) /uL Baso # (Auto) 0 (0-100) /uL Platelet Estimate Decreased on smear RBC Morphology Normal morphology ESR (0-15) MM/HR Sodium 137 (137-145) mmol/L Potassium 4.6 (3.4-5.1) mmol/L Chloride 109 H (98-107) mmol/L Carbon Dioxide 19 L (22-32) mmol/L BUN 14 (9-20) mg/dL Creatinine 1.05 (0.66-1.25) mg/dL Estimated GFR > 60.0 (>60) mL/min BUN/Creatinine Ratio 13.3 (6-22) Glucose 242 H (70-100) mg/dL Lactate (0.7-2.1) mmol/L Calcium 8.3 L (8.4-10.2) mg/dL Total Bilirubin 0.7 (0.2-1.3) mg/dL AST 33 (17-59) IU/L ALT 26 (<50) IU/L Alkaline Phosphatase 128 H (38-126) U/L C-Reactive Protein 6.5 H (<1.0) mg/dL Total Protein 7.0 (6.3-8.2) g/dL Albumin 3.8 (3.5-5.0) g/dL Globulin 3.2 (1.7-4.1) g/dL Albumin/Globulin Ratio 1.2 (1.0-2.8) Procalcitonin 0.15 (<0.5) ng/mL 03/19/20 03/19/20 Range/Units 13:39 13:39 WBC (4.5-11.0) X10^3/uL RBC (4.5-5.9) X10^6/uL Hgb (13.5-17.5) g/dL Hct (41-53) % MCV (80-100) fL MCH (26-34) PG MCHC (30-36) % RDW (11.6-14.8) % Plt Count (150-400) X10^3/uL Neut % (Auto) (50-75) % Lymph % (Auto) (25-40) % Toole % (Auto) (3-14) % Eos % (Auto) (2-4) % Baso % (Auto) (0-2) % Neut # (Auto) (3573-8950) /uL Lymph # (Auto) (4951-0271) /uL Toole # (Auto) (0-900) /uL Eos # (Auto) (0-450) /uL Baso # (Auto) (0-100) /uL Platelet Estimate RBC Morphology ESR 53 H (0-15) MM/HR Sodium (137-145) mmol/L Potassium (3.4-5.1) mmol/L Chloride (98-107) mmol/L Carbon Dioxide (22-32) mmol/L BUN (9-20) mg/dL Creatinine (0.66-1.25) mg/dL Estimated GFR (>60) mL/min BUN/Creatinine Ratio (6-22) Glucose (70-100) mg/dL Lactate 1.3 (0.7-2.1) mmol/L Calcium (8.4-10.2) mg/dL Total Bilirubin (0.2-1.3) mg/dL AST (17-59) IU/L ALT (<50) IU/L Alkaline Phosphatase (38-126) U/L C-Reactive Protein (<1.0) mg/dL Total Protein (6.3-8.2) g/dL Albumin (3.5-5.0) g/dL Globulin (1.7-4.1) g/dL Albumin/Globulin Ratio (1.0-2.8) Procalcitonin (<0.5) ng/mL MDM Narrative Medical decision making narrative: The patient is a 44-year-old male who presents with a chief complaint of an abscess on his right buttock and erythema and pain to his right lower leg. His abscess is draining at this time, and a culture was taken. Regarding his right lower leg, ultrasound was taken to DVT as the patient has had multiple injuries including C-spine injury. His exam is concerning for cellulitis, worsened by the fact that he has leukemia and diabetes. However he has no leukocytosis, does not have an elevated lactate, did not have an elevated procalcitonin. He is able to tolerate p.o. Keflex and Bactrim. Did discuss the patient's anemia with him, he states that is normal given his history. The patient appears nontoxic and hemodynamically stable throughout stay in the ER. Blood cultures were taken. Reviewed patient's labs, exam, plan of care with Dr Daly. The patient requested prescription pain medications, though is noted that he recently filled 60 tablets of lorazepam and 84 tablets of hydrocodone 7.5. He later states he lost these prescriptions. I was willing to treat his pain in the emergency department with morphine, but encouraged him to follow up with primary care provider in the next few days. I did discuss at length very strict return precautions particularly given his comorbidities including fevers, inability keep down fluids etcetera. Encourage patient a probiotic or yogurt with his antibiotics. Patient has no questions or concerns upon discharge and states understanding return precautions as well as follow-up care. <Jermaine Daly, DO - Last Filed: 03/19/20 18:41> Lab Data Labs: Lab Results 03/19/20 03/19/20 03/19/20 Range/Units 13:39 13:39 13:39 WBC 7.9 (4.5-11.0) X10^3/uL RBC 2.92 L (4.5-5.9) X10^6/uL Hgb 8.6 L (13.5-17.5) g/dL Hct 26.3 L (41-53) % MCV 90.2 (80-100) fL MCH 29.5 (26-34) PG MCHC 32.8 (30-36) % RDW 17.4 H (11.6-14.8) % Plt Count 37 L (150-400) X10^3/uL Neut % (Auto) 83.0 H (50-75) % Lymph % (Auto) 9.9 L (25-40) % Toole % (Auto) 4.7 (3-14) % Eos % (Auto) 2.1 (2-4) % Baso % (Auto) 0.3 (0-2) % Neut # (Auto) 6500 (1941-6934) /uL Lymph # (Auto) 800 L (1693-2082) /uL Toole # (Auto) 400 (0-900) /uL Eos # (Auto) 200 (0-450) /uL Baso # (Auto) 0 (0-100) /uL Platelet Estimate Decreased on smear RBC Morphology Normal morphology ESR (0-15) MM/HR Sodium 137 (137-145) mmol/L Potassium 4.6 (3.4-5.1) mmol/L Chloride 109 H (98-107) mmol/L Carbon Dioxide 19 L (22-32) mmol/L BUN 14 (9-20) mg/dL Creatinine 1.05 (0.66-1.25) mg/dL Estimated GFR > 60.0 (>60) mL/min BUN/Creatinine Ratio 13.3 (6-22) Glucose 242 H (70-100) mg/dL Lactate (0.7-2.1) mmol/L Calcium 8.3 L (8.4-10.2) mg/dL Total Bilirubin 0.7 (0.2-1.3) mg/dL AST 33 (17-59) IU/L ALT 26 (<50) IU/L Alkaline Phosphatase 128 H (38-126) U/L C-Reactive Protein 6.5 H (<1.0) mg/dL Total Protein 7.0 (6.3-8.2) g/dL Albumin 3.8 (3.5-5.0) g/dL Globulin 3.2 (1.7-4.1) g/dL Albumin/Globulin Ratio 1.2 (1.0-2.8) Procalcitonin 0.15 (<0.5) ng/mL 03/19/20 03/19/20 Range/Units 13:39 13:39 WBC (4.5-11.0) X10^3/uL RBC (4.5-5.9) X10^6/uL Hgb (13.5-17.5) g/dL Hct (41-53) % MCV (80-100) fL MCH (26-34) PG MCHC (30-36) % RDW (11.6-14.8) % Plt Count (150-400) X10^3/uL Neut % (Auto) (50-75) % Lymph % (Auto) (25-40) % Toole % (Auto) (3-14) % Eos % (Auto) (2-4) % Baso % (Auto) (0-2) % Neut # (Auto) (8335-4073) /uL Lymph # (Auto) (3219-3333) /uL Toole # (Auto) (0-900) /uL Eos # (Auto) (0-450) /uL Baso # (Auto) (0-100) /uL Platelet Estimate RBC Morphology ESR 53 H (0-15) MM/HR Sodium (137-145) mmol/L Potassium (3.4-5.1) mmol/L Chloride (98-107) mmol/L Carbon Dioxide (22-32) mmol/L BUN (9-20) mg/dL Creatinine (0.66-1.25) mg/dL Estimated GFR (>60) mL/min BUN/Creatinine Ratio (6-22) Glucose (70-100) mg/dL Lactate 1.3 (0.7-2.1) mmol/L Calcium (8.4-10.2) mg/dL Total Bilirubin (0.2-1.3) mg/dL AST (17-59) IU/L ALT (<50) IU/L Alkaline Phosphatase (38-126) U/L C-Reactive Protein (<1.0) mg/dL Total Protein (6.3-8.2) g/dL Albumin (3.5-5.0) g/dL Globulin (1.7-4.1) g/dL Albumin/Globulin Ratio (1.0-2.8) Procalcitonin (<0.5) ng/mL Discharge Plan Departure Patient Disposition: Home Clinical Impression: Abscess Cellulitis Qualifiers: Site of cellulitis: extremity Site of cellulitis of extremity: lower extremity Laterality: right Qualified Code(s): L03.115 - Cellulitis of right lower limb Anemia Qualifiers: Anemia type: unspecified type Qualified Code(s): D64.9 - Anemia, unspecified Instructions: DI for Cellulitis -- Adult, Anemia, DI for Skin Abscess Activity Restrictions/Additional Instructions: Thank you for trusting us with your care today As discussed, your lab work came back reassuring. It does show some anemia. Please follow-up with primary care provider regarding this. However if you develops signs of worsening, it is imperative that you come back to the emergency department. This includes morning for fever, inability keep down fluids inability keep down your antibiotics etcetera [facility] Please take these with probiotic or yogurt. That will help prevent antibiotic related side effects such as diarrhea. Please follow-up with primary care provider in the next few days. Please come back to the emergency department for any acute concerns Prescriptions: New sulfamethoxazole-trimethoprim [Bactrim DS] 800-160 mg tablet 1 tab PO BID Qty: 20 RF: 0 cephalexin 500 mg capsule 500 mg PO TID Qty: 30 RF: 0 No Action (DME) BD U/F Hilda Pen Needle [id number] 0 .Route .MEDSUPPLY Qty: 100 RF: 3 Humalog KwikPen Insulin 100 unit/mL insulin pen 1 - 12 unit subcut TIDCC Qty: 1 RF: 3 Lantus Solostar U-100 Insulin 100 unit/mL (3 mL) insulin pen 25 unit SUBCUT BID Qty: 15 RF: 3 (DME) True Metrix Glucose Test Strip strip See Dose Instructions .ROUTE .MEDSUPPLY Qty: 100 RF: 1 (DME) True Metrix Blood Glucose Meter Qty: 1 RF: 0 True Metrix test strips strip 0 strip .Route .MEDSUPPLY RF: 0 prochlorperazine maleate [Compazine] 10 mg Tablet 10 mg PO Q6H PRN (Reason: Nausea) Qty: 30 RF: 2 ondansetron 4 mg tablet,disintegrating 4 mg PO QID PRN (Reason: nausea and vomiting) Qty: 30 RF: 3 imatinib [Gleevec] 100 MG tablet 300 mg PO QPM Qty: 90 RF: 11 lorazepam 1 mg Tablet 1 mg PO BID PRN (Reason: nauseas) Qty: 60 RF: 0 Syringes 1 syr miscellaneous DIRECTED RF: 0 ondansetron 4 mg tablet,disintegrating 4 mg PO Q6H Qty: 12 RF: 0 Maalox Maximum Strength 400-400-40 mg/5 mL suspension 5 ml PO QID PRN (Reason: indigestion) Qty: 355 RF: 0 sulfamethoxazole-trimethoprim 800-160 mg tablet RF: 0 oxycodone 5 mg tablet 5 mg PO BID PRN (Reason: pain) Qty: 5 RF: 0 Bacid 1 billion cell- 250 mg Tablet 1 ea PO TIDWM Qty: 90 RF: 0 docusate sodium [DOK] 100 mg Capsule 100 mg PO BID Qty: 60 RF: 0 oxycodone 5 mg Tablet 10 mg PO Q6-12H PRN (Reason: Pain, Moderate (4-6)) Qty: 15 RF: 0 Referrals: [facility] [Outside] <Jermaine Daly, DO - Last Filed: 03/19/20 18:41> Cosign ED Attending Cosignature Attestation: Dr Dayl Co-Sign Statement: I was available for consultation during this patient's emergency department visit. This chart is signed by myself for administrative purposes only. I did not have direct contact with this patient during this visit. They were seen independently by the APC.
[2020-03-19 14:13] LABS: Basophils Absolute Auto 0 /uL (0-100); Basophils Percent Auto 0.3 % (0-2); Eosinophils Absolute Auto 200 /uL (0-450); Eosinophils Percent Auto 2.1 % (2-4); Hematocrit 26.3 % (41-53); Hemoglobin 8.6 g/dL (13.5-17.5); Lymphocytes Absolute Auto 800 /uL (1100-4500); Lymphocytes Percent Auto 9.9 % (25-40); Mean Corpuscular HGB Conc 32.8 % (30-36); Mean Corpuscular Hemoglobin 29.5 PG (26-34); Mean Corpuscular Volume 90.2 fL (80-100); Monocytes Absolute Auto 400 /uL (0-900); Monocytes Percent Auto 4.7 % (3-14); Neutrophils Absolute Auto 6500 /uL (1500-7000); Platelet Count 37 X10^3/uL (150-400); Red Blood Cell Count 2.92 X10^6/uL (4.5-5.9); Red Cell Distribution Width 17.4 % (11.6-14.8); White Blood Cell Count 7.9 X10^3/uL (4.5-11.0)
[2020-03-19 14:14] LABS: Add Manual Diff / Slide Review SLIDE REVIEW
[2020-03-19 14:22] LABS: Lactate (Lactic Acid) 1.3 mmol/L (0.7-2.1)
[2020-03-19 14:26] LABS: Alanine Aminotransferase 26 IU/L (<50); Albumin 3.8 g/dL (3.5-5.0); Albumin Globulin Ratio 1.2 (1.0-2.8); Alkaline Phosphatase 128 U/L (38-126); Aspartate Aminotransferase 33 IU/L (17-59); BUN Creatinine Ratio 13.3 (6-22); Bilirubin Total 0.7 mg/dL (0.2-1.3); Blood Urea Nitrogen 14 mg/dL (9-20); C-Reactive Protein Quant 6.5 mg/dL (<1.0); Calcium 8.3 mg/dL (8.4-10.2); Carbon Dioxide 19 mmol/L (22-32); Chloride 109 mmol/L (98-107); Estimated Glomerular Filt Rate > 60.0 mL/min (>60); Globulin 3.2 g/dL (1.7-4.1); Glucose 242 mg/dL (70-100); HEMOLYSIS < 15 (0-50); Potassium 4.6 mmol/L (3.4-5.1); Sodium 137 mmol/L (137-145)
[2020-03-19] MEDS: MORPHINE 4 MG/ML INJ IV ×2 (14:32→15:40)
[2020-03-19] MEDS: ONDANSETRON 4 MG/2 ML INJ IV (14:32)
[2020-03-19 14:39] LABS: Erythrocyte Sedimentation Rate 53 MM/HR (0-15); Procalcitonin 0.15 ng/mL (<0.5)
[2020-03-19 15:23] LABS: Platelet Estimate Decreased on smear; RBC Morphology Normal Morphology
[2020-03-19] MEDS: TRIMETH/SULFA 160/800 (DS) TABLET 1 TAB PO (15:40)
[2020-03-19] MEDS: cephALEXin 250 MG CAPSULE 500 MG PO (15:40)
[2020-03-19 17:35] VITALS: BP 121/82; PULSE 82; RESP 16; O2SAT 98
--- NOTE | 2020-03-19 17:38 | PC.NURSE ---
Patient right leg dressed with nonstick tefla pad and wrapped with coban.
== END 2020-03-19 17:38 | disposition home or self-care (01) ==
PROVIDERS: Emergency Provider Nurse Practitioner Family
DX: L02.31 Cutaneous abscess of buttock (principal); L03.115 Cellulitis of right lower limb; D64.9 Anemia, unspecified; E11.9 Type 2 diabetes mellitus without complications; C92.10 Chronic myeloid leukemia, BCR/ABL-positive, not having achieved remission; D69.6 Thrombocytopenia, unspecified
CPT/HCPCS: 36415; 80053; 83605; 84145; 85025; 85651; 86140; 87040; 87070; 87075; 87077; 87147; 87186; 87205; 93971; 96361; 96374; 96375; 96376; 99281; 99284; J2270; J2405

== ENCOUNTER 2020-03-23 05:43 | Emergency (ER) | payer OTHER, MEDICAID, SELFPAY ==
[2020-03-23] VITALS (21 sets, daily range): BP systolic 113–180; BP diastolic 69–98; PULSE 80–117; RESP 12–33; TEMP 37.4; O2SAT 96–100; BMI 22.0
--- NOTE | 2020-03-23 06:18 | ED.WOUNDLAC ---
HPI - Wound/Laceration <Leonidas Patel MD - Last Filed: 03/23/20 18:05> General Chief Complaint: Extremity Problem,Nontraumatic Stated Complaint: Infection in leg x1 week Time Seen by Provider: 03/23/20 05:51 Source: patient Limitations: no limitations History of Present Illness HPI narrative: Patient here for recheck of worsening skin wounds. Seen here this past Wednesday on March 19 for same complaint. Had ultrasound of the right leg no DVT. He did follow up 2 days ago on at the wound clinic with his providers in [facility]. Had some debridement some of the wounds. Patient is currently on Bactrim and Keflex. His right mid anterior hogan wound is worsening with more drainage. There is a new necrotic area on the tip of the right great toe. Left great toe is improving as well as the left mid medial thigh and right buttock abscess. Wound on the plantar surface of the right 5th MTP joint area is worsening. Patient has had subjective fever. Heart rate noted. Denies any chest pain or dyspnea. Denies any nausea or vomiting. No cough cold congestion. Related Data Home Medications Medication Instructions Recorded Confirmed Syringes 1 syr MISCELLANEOUS DIRECTED 11/10/17 03/08/19 True Metrix test strips 0 strip .ROUTE .MEDSUPPLY 04/06/18 03/08/19 sulfamethoxazole-trimethoprim 01/20/20 Previous Rx's Medication Instructions Recorded BD U/F Hilda Pen Needle [id number] #100 each 06/13/18 insulin lispro 100 unit/mL 1 - 12 unit SUBCUT TIDCC #1 ea 06/13/18 subcutaneous pen insulin glargine 100 unit/mL (3 25 unit SUBCUT BID #15 ml 08/02/18 mL) subcutaneous pen prochlorperazine maleate 10 mg PO Q6H PRN #30 tab 10/04/18 [Compazine] L.acidoph-L.bulg-B.bif-S.therm 1 ea PO TIDWM #90 tab 10/24/18 [Bacid (L. acidophilus)] docusate sodium [DOK] 100 mg PO BID #60 cap 10/24/18 oxycodone 10 mg PO Q6-12H PRN #15 tab 10/24/18 ondansetron 4 mg PO QID PRN #30 tab 11/22/18 True Metrix Glucose Test Strip #100 each NS 11/29/18 True Metrix Blood Glucose Meter #1 ea 12/09/18 alum-mag hydroxide-simeth [Maalox 5 ml PO QID PRN #355 ml 04/23/19 Maximum Strength] ondansetron 4 mg PO Q6H #12 tab 04/23/19 imatinib [Gleevec] 300 mg PO QPM #90 tab 08/17/19 lorazepam 1 mg PO BID PRN #60 tab 09/18/19 oxycodone 5 mg PO BID PRN #5 tab 01/20/20 cephalexin 500 mg PO TID #30 cap 03/19/20 sulfamethoxazole-trimethoprim 1 tab PO BID #20 tab 03/19/20 [Bactrim DS] Allergies Allergy/AdvReac Type Severity Reaction Status Date / Time Penicillins [PENICILLINS] Allergy Severe Tongue Verified 03/19/20 13:07 swelling, hives adhesive Allergy Unknown PLASTIC Verified 03/19/20 13:07 TAPE latex [LATEX] Allergy Unknown Verified 03/19/20 13:07 Review of Systems <Leonidas Patel MD - Last Filed: 03/23/20 18:05> Review of Systems Narrative: GENERAL: Complains chills, fatigue, malaise, fever, denies sweats. HEENT: Denies sinus pain, ear pain, sore throat, difficulty swallowing RESPIRATORY: Denies dyspnea, cough CARDIOVASCULAR: Denies chest pain, palpitations, edema, GASTROINTESTINAL: Denies nausea, vomiting, abdominal pain, diarrhea, constipation, melena. : Denies dysuria, frequency, hematuria MUSCULOSKELETAL: Complains muscle or bony pain SKIN: Complains of worsening erythema/wound infection NEUROLOGIC: Denies weakness, headache, numbness, change in speech, confusion PSYCHIATRIC: No SI or HI or hallucinations ROS Unobtainable: All systems reviewed & are unremarkable except as noted in HPI and below Patient History <Leonidas Patel MD - Last Filed: 03/23/20 18:05> Medical History Alcoholism Central cord syndrome at C3 level of cervical spinal cord CML (chronic myelocytic leukemia) Insulin dependent diabetes mellitus Thrombocytopenia Surgical History Status post appendectomy Family History Grandfather Diabetes mellitus Mother Cancer Social History household members: none Smoking Status: Former smoker alcohol intake: former substance use type: former substance user Smoking Status: Former smoker tobacco type: smokeless tobacco alcohol intake frequency: a few times a week Alcohol type: beer Substance Use Type: does not use Exam <Leonidas Patel MD - Last Filed: 03/23/20 18:05> Narrative Exam Narrative: GENERAL: patient appears stated age. Well-nourished, well-developed patient, in no distress, not toxic not dyspneic HEAD: Normocephalic. EYES: Pupils equal round and reactive. No scleral icterus. No injection no discharge ENT: Mucous membranes moist. No drooling no tongue elevation no trismus no malocclusion NECK: Trachea midline. Non tender CARDIOVASCULAR: Regular rate and rhythm without murmurs, gallops, or rubs. RESPIRATORY: Clear to auscultation. Breath sounds equal bilaterally. No wheezes, rales, or rhonchi. GASTROINTESTINAL: Abdomen soft, non-tender, nondistended. EXTREMITIES: Right buttock and left medial thigh abscess nontender no erythema. Patient states not painful and has been improving. Examination left foot at the great toe there is recent debridement of skin with good granulation tissue. Pictures of this toe during the week shows improvement. Examination and comparison of pictures of the right foot shows new necrotic tissue at the tip of the right great toe dime-size, with worsening necrotic tissue at the 5th metatarsal phalangeal joint space. Otherwise both feet warm soft pink with strong pedal pulses. No foul odor BACK: Nontender without deformity or crepitance. No flank tenderness. NEURO: AOx4. SKIN: Warm and dry, see extremity exam PSYCH: Not anxious, is cooperative Initial Vital Signs Initial Vital Signs: Vital Signs Temperature 99.3 F 03/23/20 05:50 Pulse Rate 117 H 03/23/20 05:50 Respiratory Rate 18 03/23/20 05:50 Blood Pressure 151/81 H 03/23/20 05:50 Pulse Oximetry 100 03/23/20 05:50 <Tere Tirado MD - Last Filed: 03/23/20 12:35> Initial Vital Signs Initial Vital Signs: Vital Signs Temperature 99.3 F 03/23/20 05:50 Pulse Rate 117 H 03/23/20 05:50 Respiratory Rate 18 03/23/20 05:50 Blood Pressure 151/81 H 03/23/20 05:50 Pulse Oximetry 100 03/23/20 05:50 Course <Leonidas Patel MD - Last Filed: 03/23/20 18:05> Course Course Narrative: No new complaints during ED course. Patient will need transfer to [place] for continuity of care Time 7:00 a.m.. Sign out to Dr. Tirado, awaiting laboratory results and x-ray results for transfer to [facility] for wound care and IV antibiotics Orders Ordered: Discontinued Medications Acetaminophen (Acetaminophen 325 Mg Tablet) 975 mg PO NOW ONE Stop: 03/23/20 06:15 Last Admin: 03/23/20 06:20 Dose: 975 mg Documented by: BRANDON Hydromorphone HCl (Hydromorphone 1 Mg Inj) 1 mg IV NOW ONE Stop: 03/23/20 06:41 Last Admin: 03/23/20 06:44 Dose: 1 mg Documented by: BRANDON Hydromorphone HCl (Hydromorphone 1 Mg Inj) 1 mg IV NOW ONE Stop: 03/23/20 11:01 Last Admin: 03/23/20 11:12 Dose: 1 mg Documented by: GIFTY Hydromorphone HCl (Hydromorphone 1 Mg Inj) 1 mg IV NOW ONE Stop: 03/23/20 15:06 Last Admin: 03/23/20 15:09 Dose: 1 mg Documented by: SHEREEN Hydromorphone HCl (Hydromorphone 1 Mg Inj) 1 mg IV NOW ONE Stop: 03/23/20 15:07 Last Admin: 03/23/20 15:10 Dose: Not Given Documented by: SHEREEN Sodium Chloride (Normal Saline 0.9%) 1,000 mls @ 1,000 mls/hr IV BOLUS ONE Stop: 03/23/20 07:13 Last Infusion: 03/23/20 08:15 Dose: 0 mls/hr Documented by: Admin: 03/23/20 06:21 Dose: 1,000 mls/hr Documented by: BRANDON Vancomycin HCl (Vancomycin) 1,000 mg in 200 mls @ 200 mls/hr IV NOW ONE Stop: 03/23/20 07:27 Last Infusion: 03/23/20 08:15 Dose: 0 mls/hr Documented by: Admin: 03/23/20 06:34 Dose: 200 mls/hr Documented by: BRANDON Ceftriaxone Sodium/Dextrose (Rocephin) 2 gm in 50 mls @ 100 mls/hr IV NOW ONE Stop: 03/23/20 07:32 Last Infusion: 03/23/20 08:15 Dose: 0 mls/hr Documented by: Admin: 03/23/20 07:26 Dose: 100 mls/hr Documented by: GIFTY Insulin Aspart (Insulin Aspart 100 Unit/Ml Insuln Pen) 2 unit SUBCUT AC ROBIN Last Admin: 03/23/20 12:18 Dose: 2 unit Documented by: FRANKLYN Cosigned by: GIANNI Insulin Glargine (Insulin Glargine 100 Unit/Ml 3ml Pen) 22 unit SUBCUT NOW ONE Stop: 03/23/20 09:16 Last Admin: 03/23/20 11:12 Dose: 22 unit Documented by: GIFTY Cosigned by: GIANNI Ketorolac Tromethamine (Ketorolac 60 Mg/2 Ml Vial) 15 mg IV NOW ONE Stop: 03/23/20 07:56 Last Admin: 03/23/20 08:47 Dose: 15 mg Documented by: GIFTY Morphine Sulfate (Morphine 4 Mg/Ml Inj) 4 mg IV NOW ONE Stop: 03/23/20 06:14 Last Admin: 03/23/20 06:20 Dose: 4 mg Documented by: BRANDON Ondansetron HCl (Ondansetron 4 Mg/2 Ml Inj) 4 mg IV NOW ONE Stop: 03/23/20 06:13 Last Admin: 03/23/20 06:20 Dose: 4 mg Documented by: BRANDON Ondansetron HCl (Ondansetron 4 Mg/2 Ml Inj) 4 mg IV NOW ONE Stop: 03/23/20 07:56 Last Admin: 03/23/20 08:47 Dose: 4 mg Documented by: GIFTY Ondansetron HCl (Ondansetron 4 Mg/2 Ml Inj) 4 mg IV NOW ONE Stop: 03/23/20 13:56 Last Admin: 03/23/20 14:03 Dose: 4 mg Documented by: SHEREEN Oxycodone/Acetaminophen (Oxycodone/Acetaminophen 5/325 Tablet) 2 tab PO NOW ONE Stop: 03/23/20 07:56 Last Admin: 03/23/20 08:47 Dose: 2 tab Documented by: GIFTY Oxycodone/Acetaminophen (Oxycodone/Acetaminophen 5/325 Tablet) 1 tab PO Q8HR ROBIN Last Admin: 03/23/20 13:25 Dose: 1 tab Documented by: SHEREEN Vital Signs Vital signs: Vital Signs - 8 hr 03/23/20 10:30 03/23/20 11:00 03/23/20 11:30 Pulse Rate 88 86 91 H Respiratory Rate 14 18 17 Blood Pressure 128/75 122/75 130/80 Pulse Oximetry 100 100 100 03/23/20 12:00 03/23/20 12:01 03/23/20 12:30 Pulse Rate 102 H 105 H 92 H Respiratory Rate 31 H 27 H 16 Blood Pressure 145/98 H 137/80 Pulse Oximetry 100 98 100 03/23/20 13:00 03/23/20 13:30 03/23/20 14:00 Pulse Rate 87 83 80 Respiratory Rate 14 12 12 Blood Pressure 129/77 115/71 113/69 Pulse Oximetry 99 98 96 03/23/20 14:30 03/23/20 15:00 Pulse Rate 83 98 H Respiratory Rate 16 24 Blood Pressure 132/79 Pulse Oximetry 99 99 <Tere Tirado MD - Last Filed: 03/23/20 12:35> Course Course Narrative: Care is assumed. Patient is examined and notes are reviewed. Complains of increasing pain and is typically on Vicodin 7.5 3 times a day. He does note that the wound was biopsied and cultured earlier this week and those notes are requested from [facility]. Vancomycin was initially started and ceftriaxone was added will review cultures when available. Patient requested consideration of admission to [facility]. This was reviewed with the hospitalist. In light of the complicated infection, Infectious Disease consultation already and falling red blood cell and platelet parameters in light of oncology treatment her recommendation was to continue with assumption that he needs transfer to [facility] where all of his caregivers an additional consultants are immediately available. Orders Ordered: Discontinued Medications Acetaminophen (Acetaminophen 325 Mg Tablet) 975 mg PO NOW ONE Stop: 03/23/20 06:15 Last Admin: 03/23/20 06:20 Dose: 975 mg Documented by: BRANDON Hydromorphone HCl (Hydromorphone 1 Mg Inj) 1 mg IV NOW ONE Stop: 03/23/20 06:41 Last Admin: 03/23/20 06:44 Dose: 1 mg Documented by: BRANDON Hydromorphone HCl (Hydromorphone 1 Mg Inj) 1 mg IV NOW ONE Stop: 03/23/20 11:01 Last Admin: 03/23/20 11:12 Dose: 1 mg Documented by: GIFTY Hydromorphone HCl (Hydromorphone 1 Mg Inj) 1 mg IV NOW ONE Stop: 03/23/20 15:06 Last Admin: 03/23/20 15:09 Dose: 1 mg Documented by: SHEREEN Hydromorphone HCl (Hydromorphone 1 Mg Inj) 1 mg IV NOW ONE Stop: 03/23/20 15:07 Last Admin: 03/23/20 15:10 Dose: Not Given Documented by: SHEREEN Sodium Chloride (Normal Saline 0.9%) 1,000 mls @ 1,000 mls/hr IV BOLUS ONE Stop: 03/23/20 07:13 Last Infusion: 03/23/20 08:15 Dose: 0 mls/hr Documented by: Admin: 03/23/20 06:21 Dose: 1,000 mls/hr Documented by: BRANDON Vancomycin HCl (Vancomycin) 1,000 mg in 200 mls @ 200 mls/hr IV NOW ONE Stop: 03/23/20 07:27 Last Infusion: 03/23/20 08:15 Dose: 0 mls/hr Documented by: Admin: 03/23/20 06:34 Dose: 200 mls/hr Documented by: BRANDON Ceftriaxone Sodium/Dextrose (Rocephin) 2 gm in 50 mls @ 100 mls/hr IV NOW ONE Stop: 03/23/20 07:32 Last Infusion: 03/23/20 08:15 Dose: 0 mls/hr Documented by: Admin: 03/23/20 07:26 Dose: 100 mls/hr Documented by: GIFTY Insulin Aspart (Insulin Aspart 100 Unit/Ml Insuln Pen) 2 unit SUBCUT AC [facility] Last Admin: 03/23/20 12:18 Dose: 2 unit Documented by: FRANKLYN Cosigned by: GIANNI Insulin Glargine (Insulin Glargine 100 Unit/Ml 3ml Pen) 22 unit SUBCUT NOW ONE Stop: 03/23/20 09:16 Last Admin: 03/23/20 11:12 Dose: 22 unit Documented by: GIFTY Cosigned by: GIANNI Ketorolac Tromethamine (Ketorolac 60 Mg/2 Ml Vial) 15 mg IV NOW ONE Stop: 03/23/20 07:56 Last Admin: 03/23/20 08:47 Dose: 15 mg Documented by: GIFTY Morphine Sulfate (Morphine 4 Mg/Ml Inj) 4 mg IV NOW ONE Stop: 03/23/20 06:14 Last Admin: 03/23/20 06:20 Dose: 4 mg Documented by: BRANDON Ondansetron HCl (Ondansetron 4 Mg/2 Ml Inj) 4 mg IV NOW ONE Stop: 03/23/20 06:13 Last Admin: 03/23/20 06:20 Dose: 4 mg Documented by: BRANDON Ondansetron HCl (Ondansetron 4 Mg/2 Ml Inj) 4 mg IV NOW ONE Stop: 03/23/20 07:56 Last Admin: 03/23/20 08:47 Dose: 4 mg Documented by: GIFTY Ondansetron HCl (Ondansetron 4 Mg/2 Ml Inj) 4 mg IV NOW ONE Stop: 03/23/20 13:56 Last Admin: 03/23/20 14:03 Dose: 4 mg Documented by: SHEREEN Oxycodone/Acetaminophen (Oxycodone/Acetaminophen 5/325 Tablet) 2 tab PO NOW ONE Stop: 03/23/20 07:56 Last Admin: 03/23/20 08:47 Dose: 2 tab Documented by: GIFTY Oxycodone/Acetaminophen (Oxycodone/Acetaminophen 5/325 Tablet) 1 tab PO Q8HR ROBIN Last Admin: 03/23/20 13:25 Dose: 1 tab Documented by: KSWANSO Vital Signs Vital signs: Vital Signs - 8 hr 03/23/20 10:30 03/23/20 11:00 03/23/20 11:30 Pulse Rate 88 86 91 H Respiratory Rate 14 18 17 Blood Pressure 128/75 122/75 130/80 Pulse Oximetry 100 100 100 03/23/20 12:00 03/23/20 12:01 03/23/20 12:30 Pulse Rate 102 H 105 H 92 H Respiratory Rate 31 H 27 H 16 Blood Pressure 145/98 H 137/80 Pulse Oximetry 100 98 100 03/23/20 13:00 03/23/20 13:30 03/23/20 14:00 Pulse Rate 87 83 80 Respiratory Rate 14 12 12 Blood Pressure 129/77 115/71 113/69 Pulse Oximetry 99 98 96 03/23/20 14:30 03/23/20 15:00 Pulse Rate 83 98 H Respiratory Rate 16 24 Blood Pressure 132/79 Pulse Oximetry 99 99 MDM - Wound/Laceration <Leonidas Patel MD - Last Filed: 03/23/20 18:05> Medical Records Attestation: I reviewed the patient's medical records. Medical records narrative: [address] [id number] ReportSigned Patient: Lalo Han CMR#: [id number]: 1975Acct:[id number]/Sex: 44 / MDate of Service: 03/19/20Loc: EDAccession Number: [id number] Procedure: US perip venous low extrem rt Ordering Provider: Zainab Amador- PROCEDURE: US PERIPH VENOUS LOW EXTREM RT INDICATIONS: PAIN AND SWELLING RIGHT LEG TECHNIQUE: Real-time imaging, as well as color and pulse Doppler interrogation, were performed of the lower extremity deep veins from the inguinal ligament to the popliteal fossa. COMPARISON: None. FINDINGS: The common femoral, femoral and popliteal veins are normally compressible, and free of intraluminal thrombus. Color and pulse Doppler demonstrate normal phasic intraluminal flow. There is normal augmentation response to distal compression maneuver. Multiple lymph nodes are noted in right inguinal region measures up to 2.5 x 1.6 x 0.9 cm in size with increased vascularity. Right calf soft tissue edema is also noted. IMPRESSION: 1. No evidence of DVT in visualized right lower extremity veins. 2. Right calf edema. Mildly prominent right inguinal lymph nodes suggestive of reactive inflammatory lymphadenopathy. Dictated by: Mk Cordero M.D. on 03/19/2020 at 13:41 Approved by: Mk Cordero M.D. on 03/19/2020 at 13:46 Lab Data Attestation: I reviewed the patient's lab results. Result diagrams: 03/23/20 06:00 03/23/20 06:00 Labs: Lab Results 03/23/20 03/23/20 03/23/20 Range/Units 06:00 06:00 06:00 WBC 8.7 (4.5-11.0) X10^3/uL RBC 2.60 L (4.5-5.9) X10^6/uL Hgb 7.7 L (13.5-17.5) g/dL Hct 23.4 L (41-53) % MCV 89.9 (80-100) fL MCH 29.4 (26-34) PG MCHC 32.7 (30-36) % RDW 17.2 H (11.6-14.8) % Plt Count 25 L* (150-400) X10^3/uL Neut % (Auto) 83.2 H (50-75) % Lymph % (Auto) 12.8 L (25-40) % Schley % (Auto) 2.6 L (3-14) % Eos % (Auto) 0.8 L (2-4) % Baso % (Auto) 0.6 (0-2) % Neut # (Auto) 7200 H (3249-5817) /uL Lymph # (Auto) 1100 (8629-5901) /uL Schley # (Auto) 200 (0-900) /uL Eos # (Auto) 100 (0-450) /uL Baso # (Auto) 100 (0-100) /uL Platelet Estimate Decreased on smear RBC Morphology See below Poikilocytosis 1+ H Anisocytosis 1+ H Sodium 138 (137-145) mmol/L Potassium 4.4 (3.4-5.1) mmol/L Chloride 111 H (98-107) mmol/L Carbon Dioxide 16 L (22-32) mmol/L BUN 14 (9-20) mg/dL Creatinine 1.26 H (0.66-1.25) mg/dL Estimated GFR > 60.0 (>60) mL/min BUN/Creatinine Ratio 11.1 (6-22) Glucose 172 H (70-100) mg/dL Lactate (0.7-2.1) mmol/L Calcium 7.6 L (8.4-10.2) mg/dL Total Bilirubin 0.4 (0.2-1.3) mg/dL AST 34 (17-59) IU/L ALT 18 (<50) IU/L Alkaline Phosphatase 136 H (38-126) U/L Lactate Dehydrogenase 507 (313-618) U/L Total Protein 6.8 (6.3-8.2) g/dL Albumin 3.5 (3.5-5.0) g/dL Globulin 3.3 (1.7-4.1) g/dL Albumin/Globulin Ratio 1.1 (1.0-2.8) Procalcitonin 0.26 (<0.5) ng/mL COVID-19 PCR (Negative) 03/23/20 03/23/20 Range/Units 06:00 06:24 WBC (4.5-11.0) X10^3/uL RBC (4.5-5.9) X10^6/uL Hgb (13.5-17.5) g/dL Hct (41-53) % MCV (80-100) fL MCH (26-34) PG MCHC (30-36) % RDW (11.6-14.8) % Plt Count (150-400) X10^3/uL Neut % (Auto) (50-75) % Lymph % (Auto) (25-40) % Schley % (Auto) (3-14) % Eos % (Auto) (2-4) % Baso % (Auto) (0-2) % Neut # (Auto) (7344-3391) /uL Lymph # (Auto) (5122-6110) /uL Schley # (Auto) (0-900) /uL Eos # (Auto) (0-450) /uL Baso # (Auto) (0-100) /uL Platelet Estimate RBC Morphology Poikilocytosis Anisocytosis Sodium (137-145) mmol/L Potassium (3.4-5.1) mmol/L Chloride (98-107) mmol/L Carbon Dioxide (22-32) mmol/L BUN (9-20) mg/dL Creatinine (0.66-1.25) mg/dL Estimated GFR (>60) mL/min BUN/Creatinine Ratio (6-22) Glucose (70-100) mg/dL Lactate 1.5 (0.7-2.1) mmol/L Calcium (8.4-10.2) mg/dL Total Bilirubin (0.2-1.3) mg/dL AST (17-59) IU/L ALT (<50) IU/L Alkaline Phosphatase (38-126) U/L Lactate Dehydrogenase (313-618) U/L Total Protein (6.3-8.2) g/dL Albumin (3.5-5.0) g/dL Globulin (1.7-4.1) g/dL Albumin/Globulin Ratio (1.0-2.8) Procalcitonin (<0.5) ng/mL COVID-19 PCR Negative (Negative) ECG Data Attestation: I personally reviewed and interpreted this ECG as follows: Interpretation: Sinus tachycardia, no ST elevation depression. Ventricular rate 113. MDM Narrative Medical decision making narrative: Appropriate for transfer to [facility] for continued care. Patient states all his providers and Wound Clinic is in [place] <Tere Tirado MD - Last Filed: 03/23/20 12:35> Medical Records Attestation: I reviewed the patient's medical records. Medical records narrative: Culture on March 21 of his leg wound is showing moderate PMNs and rare Gram-positive cocci on Gram stain and culture is still pending Lab Data Attestation: I reviewed the patient's lab results. Labs: Lab Results 03/23/20 03/23/20 03/23/20 Range/Units 06:00 06:00 06:00 WBC 8.7 (4.5-11.0) X10^3/uL RBC 2.60 L (4.5-5.9) X10^6/uL Hgb 7.7 L (13.5-17.5) g/dL Hct 23.4 L (41-53) % MCV 89.9 (80-100) fL MCH 29.4 (26-34) PG MCHC 32.7 (30-36) % RDW 17.2 H (11.6-14.8) % Plt Count 25 L* (150-400) X10^3/uL Neut % (Auto) 83.2 H (50-75) % Lymph % (Auto) 12.8 L (25-40) % Schley % (Auto) 2.6 L (3-14) % Eos % (Auto) 0.8 L (2-4) % Baso % (Auto) 0.6 (0-2) % Neut # (Auto) 7200 H (4885-3309) /uL Lymph # (Auto) 1100 (5810-0494) /uL Schley # (Auto) 200 (0-900) /uL Eos # (Auto) 100 (0-450) /uL Baso # (Auto) 100 (0-100) /uL Platelet Estimate Decreased on smear RBC Morphology See below Poikilocytosis 1+ H Anisocytosis 1+ H Sodium 138 (137-145) mmol/L Potassium 4.4 (3.4-5.1) mmol/L Chloride 111 H (98-107) mmol/L Carbon Dioxide 16 L (22-32) mmol/L BUN 14 (9-20) mg/dL Creatinine 1.26 H (0.66-1.25) mg/dL Estimated GFR > 60.0 (>60) mL/min BUN/Creatinine Ratio 11.1 (6-22) Glucose 172 H (70-100) mg/dL Lactate (0.7-2.1) mmol/L Calcium 7.6 L (8.4-10.2) mg/dL Total Bilirubin 0.4 (0.2-1.3) mg/dL AST 34 (17-59) IU/L ALT 18 (<50) IU/L Alkaline Phosphatase 136 H (38-126) U/L Lactate Dehydrogenase 507 (313-618) U/L Total Protein 6.8 (6.3-8.2) g/dL Albumin 3.5 (3.5-5.0) g/dL Globulin 3.3 (1.7-4.1) g/dL Albumin/Globulin Ratio 1.1 (1.0-2.8) Procalcitonin 0.26 (<0.5) ng/mL COVID-19 PCR (Negative) 03/23/20 03/23/20 Range/Units 06:00 06:24 WBC (4.5-11.0) X10^3/uL RBC (4.5-5.9) X10^6/uL Hgb (13.5-17.5) g/dL Hct (41-53) % MCV (80-100) fL MCH (26-34) PG MCHC (30-36) % RDW (11.6-14.8) % Plt Count (150-400) X10^3/uL Neut % (Auto) (50-75) % Lymph % (Auto) (25-40) % Schley % (Auto) (3-14) % Eos % (Auto) (2-4) % Baso % (Auto) (0-2) % Neut # (Auto) (5301-9326) /uL Lymph # (Auto) (4765-2853) /uL Schley # (Auto) (0-900) /uL Eos # (Auto) (0-450) /uL Baso # (Auto) (0-100) /uL Platelet Estimate RBC Morphology Poikilocytosis Anisocytosis Sodium (137-145) mmol/L Potassium (3.4-5.1) mmol/L Chloride (98-107) mmol/L Carbon Dioxide (22-32) mmol/L BUN (9-20) mg/dL Creatinine (0.66-1.25) mg/dL Estimated GFR (>60) mL/min BUN/Creatinine Ratio (6-22) Glucose (70-100) mg/dL Lactate 1.5 (0.7-2.1) mmol/L Calcium (8.4-10.2) mg/dL Total Bilirubin (0.2-1.3) mg/dL AST (17-59) IU/L ALT (<50) IU/L Alkaline Phosphatase (38-126) U/L Lactate Dehydrogenase (313-618) U/L Total Protein (6.3-8.2) g/dL Albumin (3.5-5.0) g/dL Globulin (1.7-4.1) g/dL Albumin/Globulin Ratio (1.0-2.8) Procalcitonin (<0.5) ng/mL COVID-19 PCR Negative (Negative) Imaging Data XR foot: Radiologist's Impression: Benign appearing lesion, possibly chondroid, involving the distal tibial metaphysis. Plantar calcaneal spur. Dr Sandy Pop [facility] Narrative Medical decision making narrative: [address] Wang, hospitalist at [facility]. Except the patient. Patient is continuing to complain of significant right lower extremity pain. He has had Toradol, additional Percocet beyond his baseline as well as a mg of Dilaudid none of which have influenced his pain. His chronic pain regimen is 7.5 mg of hydrocodone/to see the medicine every 8 hours At this point he is safe for transfer to [facility] for admission for right lower extremity wound and cellulitis nonresponsive to oral treatment. Discharge Plan Departure Patient Disposition: [facility] Clinical Impression: Cellulitis and abscess of other specified site, Thrombocytopenia, Acute kidney injury, CML (chronic myelocytic leukemia), Type 1 diabetes Prescriptions: No Action (DME) BD U/F Hilda Pen Needle [id number] .Route .MEDSUPPLY Qty: 100 RF: 3 Humalog KwikPen Insulin 100 unit/mL insulin pen 1 - 12 unit subcut TIDCC Qty: 1 RF: 3 Lantus Solostar U-100 Insulin 100 unit/mL (3 mL) insulin pen 25 unit SUBCUT BID Qty: 15 RF: 3 (DME) True Metrix Glucose Test Strip strip See Dose Instructions .ROUTE .MEDSUPPLY Qty: 100 RF: 1 (DME) True Metrix Blood Glucose Meter Qty: 1 RF: 0 True Metrix test strips strip 0 strip .Route .MEDSUPPLY RF: 0 prochlorperazine maleate [Compazine] 10 mg Tablet 10 mg PO Q6H PRN (Reason: Nausea) Qty: 30 RF: 2 ondansetron 4 mg tablet,disintegrating 4 mg PO QID PRN (Reason: nausea and vomiting) Qty: 30 RF: 3 imatinib [Gleevec] 100 MG tablet 300 mg PO QPM Qty: 90 RF: 11 lorazepam 1 mg Tablet 1 mg PO BID PRN (Reason: nauseas) Qty: 60 RF: 0 Syringes 1 syr miscellaneous DIRECTED RF: 0 ondansetron 4 mg tablet,disintegrating 4 mg PO Q6H Qty: 12 RF: 0 Maalox Maximum Strength 400-400-40 mg/5 mL suspension 5 ml PO QID PRN (Reason: indigestion) Qty: 355 RF: 0 sulfamethoxazole-trimethoprim 800-160 mg tablet RF: 0 oxycodone 5 mg tablet 5 mg PO BID PRN (Reason: pain) Qty: 5 RF: 0 sulfamethoxazole-trimethoprim [Bactrim DS] 800-160 mg tablet 1 tab PO BID Qty: 20 RF: 0 cephalexin 500 mg capsule 500 mg PO TID Qty: 30 RF: 0 Bacid 1 billion cell- 250 mg Tablet 1 ea PO TIDWM Qty: 90 RF: 0 docusate sodium [DOK] 100 mg Capsule 100 mg PO BID Qty: 60 RF: 0 oxycodone 5 mg Tablet 10 mg PO Q6-12H PRN (Reason: Pain, Moderate (4-6)) Qty: 15 RF: 0
[2020-03-23] MEDS: ACETAMINOPHEN 325 MG TABLET 975 MG PO (06:20)
[2020-03-23] MEDS: MORPHINE 4 MG/ML INJ IV (06:20)
[2020-03-23] MEDS: ONDANSETRON 4 MG/2 ML INJ IV ×3 (06:20→14:03)
[2020-03-23] MEDS: SODIUM CHLORIDE 0.9% 1,000 ML 1000 ML IV (06:21)
--- NOTE | 2020-03-23 06:28 | DI.RAD.S_ITS ---
PROCEDURE: XR FOOT RT 2V INDICATIONS: Pain TECHNIQUE: 2 views of the foot were acquired. COMPARISON: [facility], MR, MR FOREFOOT RIGHT WITH/WITHOUT CONTRAST, 08/17/2019, 14:24. [facility], CR, XR FOOT RT MIN 3V, 06/14/2019, 9:38. [facility], CR, XR FOOT RT MIN 3V, 11/05/2018, 9:13. FINDINGS: Bones: Improvement of the erosion at the 5th digit MTP joint. No new areas of erosion or periosteal reaction are identified. No fractures or dislocations. No suspicious bony lesions. Small area of sclerosis in the distal tibia, unchanged since at least 2018. Large plantar calcaneal spur. Moderate degenerative change in the midfoot and [id number] in the forefoot. Hallucis valgus deformity. Soft tissues: No tibiotalar joint effusion. Achilles tendon appears normal. Vascular calcifications. IMPRESSION: Improvement of the erosion at the 5th digit MTP joint compared to June 2019. No new areas of erosion or periosteal reaction are identified. If clinically indicated three-phase bone scan may be helpful for further evaluation. Overall moderate degenerative change in the foot. Large plantar calcaneal spur. This report is concordant with the overnight preliminary interpretation. Dictated by: Elver Macias M.D. on 03/23/2020 at 7:06 Approved by: Elver Macias M.D. on 03/23/2020 at 7:14
--- NOTE | 2020-03-23 06:28 | DI.RAD.S_ITS ---
PROCEDURE: XR FOOT LT 2V INDICATIONS: Pain TECHNIQUE: 2 views of the foot were acquired. COMPARISON: [facility], CT, CT LE RT W CON, 10/19/2018, 14:42. [facility], MR, MR FOREFOOT RIGHT WITH/WITHOUT CONTRAST, 08/17/2019, 14:24. [facility], CR, XR FOOT RT MIN 3V, 06/14/2019, 9:38. [facility], CR, XR FOOT RT MIN 3V, 11/05/2018, 9:13. FINDINGS: Bones: No fractures or dislocations. No osseous erosion. No periosteal reaction seen. No suspicious bony lesions. Small area of sclerosis in the distal tibia. This appears similar to the area of sclerosis in the contralateral right distal tibia. Moderate-sized calcaneal plantar spur. Mild degenerative change elsewhere in the foot. Soft tissues: No tibiotalar joint effusion. Achilles tendon appears normal. IMPRESSION: No acute osseous abnormality. Prominent moderate-sized plantar calcaneal spur. Sclerotic focus in the distal tibia. This appears similar to the abnormality in the contralateral right distal tibia. This could represent a benign chondroid lesion such as enchondroma. Alternatively this could represent an area of remote infarction. This report is concordant with the overnight preliminary interpretation. Dictated by: Elver Macias M.D. on 03/23/2020 at 7:14 Approved by: Elver Macias M.D. on 03/23/2020 at 7:21
[2020-03-23 06:31] LABS: Alanine Aminotransferase 18 IU/L (<50); Albumin 3.5 g/dL (3.5-5.0); Albumin Globulin Ratio 1.1 (1.0-2.8); Alkaline Phosphatase 136 U/L (38-126); Aspartate Aminotransferase 34 IU/L (17-59); BUN Creatinine Ratio 11.1 (6-22); Bilirubin Total 0.4 mg/dL (0.2-1.3); Blood Urea Nitrogen 14 mg/dL (9-20); Calcium 7.6 mg/dL (8.4-10.2); Carbon Dioxide 16 mmol/L (22-32); Chloride 111 mmol/L (98-107); Estimated Glomerular Filt Rate > 60.0 mL/min (>60); Globulin 3.3 g/dL (1.7-4.1); Glucose 172 mg/dL (70-100); HEMOLYSIS < 15 (0-50); Lactate Dehydrogenase 507 U/L (313-618); Potassium 4.4 mmol/L (3.4-5.1); Sodium 138 mmol/L (137-145); Total Protein 6.8 g/dL (6.3-8.2)
[2020-03-23 06:32] LABS: Lactate (Lactic Acid) 1.5 mmol/L (0.7-2.1)
[2020-03-23 06:34] LABS: Add Manual Diff / Slide Review NO; Basophils Absolute Auto 100 /uL (0-100); Basophils Percent Auto 0.6 % (0-2); Eosinophils Absolute Auto 100 /uL (0-450); Eosinophils Percent Auto 0.8 % (2-4); Hematocrit 23.4 % (41-53); Hemoglobin 7.7 g/dL (13.5-17.5); Lymphocytes Absolute Auto 1100 /uL (1100-4500); Lymphocytes Percent Auto 12.8 % (25-40); Mean Corpuscular HGB Conc 32.7 % (30-36); Mean Corpuscular Hemoglobin 29.4 PG (26-34); Mean Corpuscular Volume 89.9 fL (80-100); Monocytes Absolute Auto 200 /uL (0-900); Monocytes Percent Auto 2.6 % (3-14); Neutrophils Absolute Auto 7200 /uL (1500-7000); Neutrophils Percent Auto 83.2 % (50-75); Red Cell Distribution Width 17.2 % (11.6-14.8); White Blood Cell Count 8.7 X10^3/uL (4.5-11.0)
[2020-03-23] MEDS: VANCOMYCIN 1,000 MG/200 ML PIGGYBACK 200 MG IV (06:34)
[2020-03-23 06:36] LABS: Platelet Count 25 X10^3/uL (150-400)
[2020-03-23 06:41] LABS: COVID19 -Nasal RAPID Negative (Negative)
[2020-03-23] MEDS: HYDROMORPHONE 1 MG INJ IV ×3 (06:44→15:09)
[2020-03-23 06:48] LABS: Procalcitonin 0.26 ng/mL (<0.5)
[2020-03-23 06:53] LABS: Platelet Estimate Decreased on smear; Poikilocytosis 1+
[2020-03-23 06:55] LABS: Anisocytosis 1+
[2020-03-23] MEDS: CEFTRIAXONE 2 GM/50 ML FROZ.PIGGY IV (07:26)
[2020-03-23] MEDS: OXYCODONE/ACETAMINOPHEN 5/325 TABLET 2 TAB PO (08:47)
[2020-03-23] MEDS: KETOROLAC 60 MG/2 ML VIAL 15 MG IV (08:47)
[2020-03-23] MEDS: INSULIN GLARGINE 100 UNIT/ML 3ML PEN 22 UNIT SUBCUT (11:12)
[2020-03-23] MEDS: INSULIN ASPART 100 UNIT/ML INSULN PEN SUBCUT (12:18)
--- NOTE | 2020-03-23 12:39 | PC.NURSE ---
Cleaned with saline and applied dressing to right hogan, right lateral foot, and left great toe.
[2020-03-23] MEDS: OXYCODONE/ACETAMINOPHEN 5/325 TABLET 1 TAB PO (13:25)
== END 2020-03-23 13:20 | disposition short-term general hospital (02) ==
PROVIDERS: Emergency Provider Emergency Medicine
DX: L03.317 Cellulitis of buttock (principal); L03.032 Cellulitis of left toe; L03.031 Cellulitis of right toe; L02.31 Cutaneous abscess of buttock; D69.6 Thrombocytopenia, unspecified; N17.9 Acute kidney failure, unspecified; C92.10 Chronic myeloid leukemia, BCR/ABL-positive, not having achieved remission; E10.9 Type 1 diabetes mellitus without complications; Z79.4 Long term (current) use of insulin
CPT/HCPCS: 36415; 73620; 80053; 83605; 83615; 84145; 85025; 87040; 87635; 93005; 93010; 96365; 96366; 96367; 96372; 96375; 96376; 99284; J0696; J1170; J1885; J2270; J2405

== ENCOUNTER → 2020-04-08 15:48 | Outpatient (ROUT) | payer OTHER, MEDICAID, SELFPAY | PROVIDERS: Visit Provider Internal Medicine Infectious Disease | DX: L08.9 Local infection of the skin and subcutaneous tissue, unspecified (principal) | CPT/HCPCS: 87070; 87075; 87205 ==

== ENCOUNTER 2020-04-08 16:18 | Emergency (ER) | payer OTHER, MEDICAID, SELFPAY ==
[2020-04-08] VITALS (16 sets, daily range): BP systolic 123–161; BP diastolic 68–87; PULSE 69–92; RESP 11–23; TEMP 36.7; O2SAT 100
[2020-04-08 17:44] LABS: Add Manual Diff / Slide Review NO; Basophils Absolute Auto 0 /uL (0-100); Basophils Percent Auto 0.7 % (0-2); Eosinophils Absolute Auto 0 /uL (0-450); Eosinophils Percent Auto 1.1 % (2-4); Hemoglobin 9.2 g/dL (13.5-17.5); Lymphocytes Absolute Auto 800 /uL (1100-4500); Lymphocytes Percent Auto 23.9 % (25-40); Mean Corpuscular HGB Conc 32.7 % (30-36); Mean Corpuscular Volume 91.7 fL (80-100); Monocytes Absolute Auto 400 /uL (0-900); Monocytes Percent Auto 11.7 % (3-14); Neutrophils Absolute Auto 2100 /uL (1500-7000); Neutrophils Percent Auto 62.6 % (50-75); Red Blood Cell Count 3.06 X10^6/uL (4.5-5.9); Red Cell Distribution Width 19.2 % (11.6-14.8); White Blood Cell Count 3.3 X10^3/uL (4.5-11.0)
[2020-04-08 17:51] LABS: Platelet Count 46 X10^3/uL (150-400)
[2020-04-08 17:56] LABS: Lactate (Lactic Acid) 1.1 mmol/L (0.7-2.1)
[2020-04-08 17:57] LABS: Alanine Aminotransferase 23 IU/L (<50); Albumin 3.7 g/dL (3.5-5.0); Alkaline Phosphatase 117 U/L (38-126); Aspartate Aminotransferase 43 IU/L (17-59); BUN Creatinine Ratio 8.8 (6-22); Bilirubin Total 0.4 mg/dL (0.2-1.3); Blood Urea Nitrogen 9 mg/dL (9-20); Calcium 8.1 mg/dL (8.4-10.2); Carbon Dioxide 24 mmol/L (22-32); Chloride 108 mmol/L (98-107); Estimated Glomerular Filt Rate > 60.0 mL/min (>60); Globulin 3.6 g/dL (1.7-4.1); Glucose 178 mg/dL (70-100); HEMOLYSIS < 15 (0-50); Sodium 135 mmol/L (137-145); Total Protein 7.3 g/dL (6.3-8.2)
[2020-04-08 18:11] LABS: Procalcitonin 0.06 ng/mL (<0.5)
[2020-04-08 18:14] LABS: COVID19 -Nasal RAPID Negative (Negative)
[2020-04-08] MEDS: HYDROMORPHONE 0.5 MG INJ IV (18:42)
--- NOTE | 2020-04-08 18:43 | ED_ITS ---
HPI - Skin/Abscess/Foreign Bdy General Chief complaint: Skin/Abscess/Foreign Body Stated complaint: Couple Open Wounds Rt&Lt Legs, Infection, Fever Time Seen by Provider: 04/08/20 18:04 Source: patient Mode of arrival: Ambulatory History of Present Illness HPI narrative: 44-year-old type 1 diabetic, CML on Gleevec, recurrent lower extremity infections presents with increasing myalgias continue diarrhea, nausea and temperatures vacillating (high was 99.6 measured by nurse at home). Open wounds on lower extremities and currently followed by Dr. Valle and wound care clinic with home health wound care. The nurse that saw the wounds today was worried that they were looking more infected. He is here for further evaluation. He does note that he has had diarrhea since being on antibiotics and did not have C diff when recently hospitalized. Is followed by infectious disease specialist from [facility]. Related Data Home Medications Medication Instructions Recorded Confirmed Syringes 1 syr MISCELLANEOUS DIRECTED 11/10/17 03/08/19 True Metrix test strips 0 strip .ROUTE .MEDSUPPLY 04/06/18 03/08/19 sulfamethoxazole-trimethoprim 01/20/20 Previous Rx's Medication Instructions Recorded BD U/F Hilda Pen Needle [id number] #100 each 06/13/18 insulin lispro 100 unit/mL 1 - 12 unit SUBCUT TIDCC #1 ea 06/13/18 subcutaneous pen insulin glargine 100 unit/mL (3 25 unit SUBCUT BID #15 ml 08/02/18 mL) subcutaneous pen prochlorperazine maleate 10 mg PO Q6H PRN #30 tab 10/04/18 [Compazine] L.acidoph-L.bulg-B.bif-S.therm 1 ea PO TIDWM #90 tab 10/24/18 [Bacid (L. acidophilus)] docusate sodium [DOK] 100 mg PO BID #60 cap 10/24/18 oxycodone 10 mg PO Q6-12H PRN #15 tab 10/24/18 ondansetron 4 mg PO QID PRN #30 tab 11/22/18 True Metrix Glucose Test Strip #100 each NS 11/29/18 True Metrix Blood Glucose Meter #1 ea 12/09/18 alum-mag hydroxide-simeth [Maalox 5 ml PO QID PRN #355 ml 04/23/19 Maximum Strength] ondansetron 4 mg PO Q6H #12 tab 04/23/19 imatinib [Gleevec] 300 mg PO QPM #90 tab 08/17/19 lorazepam 1 mg PO BID PRN #60 tab 09/18/19 oxycodone 5 mg PO BID PRN #5 tab 01/20/20 cephalexin 500 mg PO TID #30 cap 03/19/20 sulfamethoxazole-trimethoprim 1 tab PO BID #20 tab 03/19/20 [Bactrim DS] doxycycline hyclate 100 mg PO BID #20 cap 04/08/20 Allergies Allergy/AdvReac Type Severity Reaction Status Date / Time Penicillins [PENICILLINS] Allergy Severe Tongue Verified 03/19/20 13:07 swelling, hives adhesive Allergy Unknown PLASTIC Verified 03/19/20 13:07 TAPE latex [LATEX] Allergy Unknown Verified 03/19/20 13:07 Review of Systems Review of Systems Narrative: Pertinent positive and negative findings as per HPI Remainder of review of systems is otherwise unremarkable for ENT: No sore throat, neck pain, ear pain CV: Chest pain, palpitations, dyspnea on exertion Respiratory: Cough, wheeze, GI: Nausea, vomiting, : Dysuria, hematuria, flank pain Patient History Medical History Alcoholism Central cord syndrome at C3 level of cervical spinal cord CML (chronic myelocytic leukemia) Insulin dependent diabetes mellitus Thrombocytopenia Surgical History Status post appendectomy Family History Grandfather Diabetes mellitus Mother Cancer Social History household members: none Smoking Status: Former smoker alcohol intake: former substance use type: former substance user Smoking Status: Former smoker tobacco type: smokeless tobacco alcohol intake frequency: a few times a week Alcohol type: beer Substance Use Type: does not use Exam Narrative Exam Narrative: General: Pale, Alert appropriate in no acute distress Respiratory: Able to speak in full sentences, no obvious respiratory distress, no wheezes rales or rhonchi are appreciated Cardiac: Regular rate and rhythm no murmurs Skin: Wound care dressing in place over the right leg removed and he has a shallow 2 x 2 cm ulcer the upper portion of the right hogan with slight erythema extending out from it but good granulation at the base and no significant drainage Neurologic: Grossly intact no obvious asymmetries or abnormalities Psych: appropriate insight and affect, cooperative Initial Vital Signs Initial Vital Signs: Vital Signs Temperature 98.1 F 04/08/20 16:30 Pulse Rate 92 H 04/08/20 16:30 Respiratory Rate 22 04/08/20 16:30 Blood Pressure 150/72 H 04/08/20 16:30 Pulse Oximetry 100 04/08/20 16:30 Course Orders Ordered: ED Orders 04/08/20 19:37 EKG-12 Lead Stat Discontinued Medications Doxycycline Hyclate (Doxycycline Hyclate 100 Mg Tablet) 100 mg PO NOW ONE Stop: 04/08/20 20:01 Last Admin: 04/08/20 20:19 Dose: 100 mg Documented by: BRANDON Hydromorphone HCl (Hydromorphone 0.5 Mg Inj) 0.5 mg IV Q15MIN PRN PRN Reason: Pain, Last Admin: 04/08/20 18:42 Dose: 0.5 mg Documented by: SUSAN Levofloxacin (Levofloxacin 250 Mg Tablet) 750 mg PO NOW ONE Stop: 04/08/20 20:01 Oxycodone/Acetaminophen (Oxycodone/Acetaminophen 5/325 Tablet) 2 tab PO NOW ONE Stop: 04/08/20 20:01 Last Admin: 04/08/20 20:19 Dose: 2 tab Documented by: BRANDON Oxycodone/Acetaminophen (Oxycodone/Apap 5/325 Prepack) 1 bottle MISC SEEINSTR ONE Stop: 04/08/20 20:01 Last Admin: 04/08/20 20:19 Dose: 1 bottle Documented by: BRANDON Vital Signs Vital signs: Vital Signs - 8 hr 04/08/20 19:30 04/08/20 19:45 04/08/20 20:00 Pulse Rate 70 71 78 Respiratory Rate 14 17 23 Blood Pressure 123/76 136/68 Pulse Oximetry 100 100 100 04/08/20 20:01 04/08/20 20:15 04/08/20 20:16 Pulse Rate 76 75 75 Respiratory Rate 11 L 15 19 Blood Pressure 159/74 H 138/82 Pulse Oximetry 100 100 100 MDM - Skin/Abscess/Foreign Bdy Lab Data Result diagrams: 04/08/20 17:28 04/08/20 17:28 Labs: Lab Results 04/08/20 04/08/20 04/08/20 Range/Units 17:28 17:28 17:28 WBC 3.3 L (4.5-11.0) X10^3/uL RBC 3.06 L (4.5-5.9) X10^6/uL Hgb 9.2 L (13.5-17.5) g/dL Hct 28.0 L (41-53) % MCV 91.7 (80-100) fL MCH 30.0 (26-34) PG MCHC 32.7 (30-36) % RDW 19.2 H (11.6-14.8) % Plt Count 46 L (150-400) X10^3/uL Neut % (Auto) 62.6 (50-75) % Lymph % (Auto) 23.9 L (25-40) % [place] % (Auto) 11.7 (3-14) % Eos % (Auto) 1.1 L (2-4) % Baso % (Auto) 0.7 (0-2) % Neut # (Auto) 2100 (1314-1932) /uL Lymph # (Auto) 800 L (9795-6231) /uL [place] # (Auto) 400 (0-900) /uL Eos # (Auto) 0 (0-450) /uL Baso # (Auto) 0 (0-100) /uL Sodium 135 L (137-145) mmol/L Potassium 5.0 (3.4-5.1) mmol/L Chloride 108 H (98-107) mmol/L Carbon Dioxide 24 (22-32) mmol/L BUN 9 (9-20) mg/dL Creatinine 1.02 (0.66-1.25) mg/dL Estimated GFR > 60.0 (>60) mL/min BUN/Creatinine Ratio 8.8 (6-22) Glucose 178 H (70-100) mg/dL Lactate (0.7-2.1) mmol/L Calcium 8.1 L (8.4-10.2) mg/dL Total Bilirubin 0.4 (0.2-1.3) mg/dL AST 43 (17-59) IU/L ALT 23 (<50) IU/L Alkaline Phosphatase 117 (38-126) U/L Total Protein 7.3 (6.3-8.2) g/dL Albumin 3.7 (3.5-5.0) g/dL Globulin 3.6 (1.7-4.1) g/dL Albumin/Globulin Ratio 1.0 (1.0-2.8) Procalcitonin 0.06 (<0.5) ng/mL COVID-19 PCR (Negative) Blood Type Antibody Screen 04/08/20 04/08/20 04/08/20 Range/Units 17:28 17:28 17:34 WBC (4.5-11.0) X10^3/uL RBC (4.5-5.9) X10^6/uL Hgb (13.5-17.5) g/dL Hct (41-53) % MCV (80-100) fL MCH (26-34) PG MCHC (30-36) % RDW (11.6-14.8) % Plt Count (150-400) X10^3/uL Neut % (Auto) (50-75) % Lymph % (Auto) (25-40) % [place] % (Auto) (3-14) % Eos % (Auto) (2-4) % Baso % (Auto) (0-2) % Neut # (Auto) (6594-3172) /uL Lymph # (Auto) (3966-9437) /uL [place] # (Auto) (0-900) /uL Eos # (Auto) (0-450) /uL Baso # (Auto) (0-100) /uL Sodium (137-145) mmol/L Potassium (3.4-5.1) mmol/L Chloride (98-107) mmol/L Carbon Dioxide (22-32) mmol/L BUN (9-20) mg/dL Creatinine (0.66-1.25) mg/dL Estimated GFR (>60) mL/min BUN/Creatinine Ratio (6-22) Glucose (70-100) mg/dL Lactate 1.1 (0.7-2.1) mmol/L Calcium (8.4-10.2) mg/dL Total Bilirubin (0.2-1.3) mg/dL AST (17-59) IU/L ALT (<50) IU/L Alkaline Phosphatase (38-126) U/L Total Protein (6.3-8.2) g/dL Albumin (3.5-5.0) g/dL Globulin (1.7-4.1) g/dL Albumin/Globulin Ratio (1.0-2.8) Procalcitonin (<0.5) ng/mL COVID-19 PCR Negative (Negative) Blood Type A Positive Antibody Screen Negative Urine Dip Bedside Urine Glucose Negative Bedside Urine Bilirubin - Negative Bedside Urine Ketone - Negative Urine Specific [place] 1.020 Bedside Urine Occult Blood - Negative Bedside Urine pH 6.0 Bedside Urine Protein - Negative Bedside Urine Urobilinogen - Negative Bedside Urine Nitrite - Negative Bedside Urine Leukocytes - Negative Esterase MDM Narrative Medical decision making narrative: 44-year-old gentleman with complex wound healing issues, history of addiction issues presents worried that his wounds were worsening. His home health wound care nurse felt that there is more erythema around the right anterior hogan wound and he feels that the leg is getting warm again. He complains of nausea, increasing diarrhea and myalgias. At the end of his visit he also notes that he has been out of his narcotics for the last 48 hours. States that he takes oxycodone 4 times a day is not clear on the dose. Does have an appointment with his primary care medical doctor tomorrow to refill his chonic narcotics Care is reviewed with Dr. Kamila Lang, ID specialist. Labs are also reviewed no evidence of sepsis or overwhelming infection at this point with the slight increase in erythema on the anterior hogan recommendation was adding levofloxacin (presuming QTC was less than 450) and doxycycline. He last had a dose of Dalbavancin on March 27 which will not be due to be redosed until April 10, if Infectious Disease chooses to do so. His QTC is 468 so Levaquin will not be prescribed. Will continue with doxycycline. He is given 2 Percocet prior to leaving the department for presumed opiate withdrawal symptoms and a prepack to last through to his appointment tomorrow with his primary care physician to refill medications. He is safe for home discharge at this time Discharge Plan Departure Patient Disposition: Home Clinical Impression: Opiate withdrawal, CML (chronic myelocytic leukemia), Complicated wound infection Instructions: DI for Drug or Alcohol Withdrawal, DI for Wound Infection Activity Restrictions/Additional Instructions: Thank you for coming in today Your wound actually looks like it is continuing to heal. Your lab work is reassuring. With the increase in warmth in the leg that you are experiencing, after talking with the infectious disease doctor, I am going to add doxycycline to your current antibiotics. The last last IV dose of the antibiotic Dalbavancin is still in your body and effective through April 10. A prescription for doxycycline has been electronically transmitted to [facility] in [place] for you to flower picker tomorrow. I suspect that the nausea, increase in diarrhea and myalgias are all related to opioid withdrawal. I have given you 2 Percocet in the emergency department and of prepack of medication to go home and you have an appointment with your primary care doctor to refill your chronic pain medication tomorrow The infectious disease office will be contacting you to set up a follow-up appointment as well If you feel that you are getting worse, please feel free to return to the emergency department Prescriptions: New doxycycline hyclate 100 mg capsule 100 mg PO BID Qty: 20 RF: 0 No Action (DME) BD U/F Hilda Pen Needle [id number] .Route .MEDSUPPLY Qty: 100 RF: 3 Humalog KwikPen Insulin 100 unit/mL insulin pen 1 - 12 unit subcut TIDCC Qty: 1 RF: 3 Lantus Solostar U-100 Insulin 100 unit/mL (3 mL) insulin pen 25 unit SUBCUT BID Qty: 15 RF: 3 (DME) True Metrix Glucose Test Strip strip See Dose Instructions .ROUTE .MEDSUPPLY Qty: 100 RF: 1 (DME) True Metrix Blood Glucose Meter Qty: 1 RF: 0 True Metrix test strips strip 0 strip .Route .MEDSUPPLY RF: 0 prochlorperazine maleate [Compazine] 10 mg Tablet 10 mg PO Q6H PRN (Reason: Nausea) Qty: 30 RF: 2 ondansetron 4 mg tablet,disintegrating 4 mg PO QID PRN (Reason: nausea and vomiting) Qty: 30 RF: 3 imatinib [Gleevec] 100 MG tablet 300 mg PO QPM Qty: 90 RF: 11 lorazepam 1 mg Tablet 1 mg PO BID PRN (Reason: nauseas) Qty: 60 RF: 0 Syringes 1 syr miscellaneous DIRECTED RF: 0 ondansetron 4 mg tablet,disintegrating 4 mg PO Q6H Qty: 12 RF: 0 Maalox Maximum Strength 400-400-40 mg/5 mL suspension 5 ml PO QID PRN (Reason: indigestion) Qty: 355 RF: 0 sulfamethoxazole-trimethoprim 800-160 mg tablet RF: 0 oxycodone 5 mg tablet 5 mg PO BID PRN (Reason: pain) Qty: 5 RF: 0 sulfamethoxazole-trimethoprim [Bactrim DS] 800-160 mg tablet 1 tab PO BID Qty: 20 RF: 0 cephalexin 500 mg capsule 500 mg PO TID Qty: 30 RF: 0 Bacid 1 billion cell- 250 mg Tablet 1 ea PO TIDWM Qty: 90 RF: 0 docusate sodium [DOK] 100 mg Capsule 100 mg PO BID Qty: 60 RF: 0 oxycodone 5 mg Tablet 10 mg PO Q6-12H PRN (Reason: Pain, Moderate (4-6)) Qty: 15 RF: 0
--- NOTE | 2020-04-08 19:19 | PC.NURSE ---
the surgical, rt lower leg wound is pale and dull and the surrounding tissue is red, 6-7 cm in diameter. pt has another wound on the rt foot, near petite bunion area.
[2020-04-08] MEDS: ONDANSETRON 4 MG/2 ML INJ (19:34)
--- NOTE | 2020-04-08 19:58 | PC.NURSE ---
Pts right hogan and right foot had dressings replaced with xeroform and nonadherent gauze, wrapped in kerlix and coban
[2020-04-08] MEDS: OXYCODONE/ACETAMINOPHEN 5/325 TABLET 2 TAB PO (20:19)
[2020-04-08] MEDS: DOXYCYCLINE HYCLATE 100 MG TABLET PO (20:19)
[2020-04-08] MEDS: OXYCODONE/APAP 5/325 PREPACK 1 BOTTLE MISC (20:19)
== END 2020-04-08 20:38 | disposition home or self-care (01) ==
PROVIDERS: Emergency Medicine; Emergency Provider Emergency Medicine
DX: F11.23 Opioid dependence with withdrawal (principal); T81.49XA Infection following a procedure, other surgical site, initial encounter; C92.10 Chronic myeloid leukemia, BCR/ABL-positive, not having achieved remission; R19.7 Diarrhea, unspecified; E10.9 Type 1 diabetes mellitus without complications; Z79.4 Long term (current) use of insulin; Z20.828 Contact with and (suspected) exposure to other viral communicable diseases; L08.9 Local infection of the skin and subcutaneous tissue, unspecified
CPT/HCPCS: 36415; 80053; 81003; 83605; 84145; 85025; 86850; 86900; 86901; 87040; 87070; 87075; 87205; 87635; 93005; 96374; 96375; 99283; 99284; J1170; J2405

== ENCOUNTER 2020-08-18 14:40 | Emergency (ER) | payer OTHER, MEDICAID, SELFPAY ==
[2020-08-18 15:21] VITALS: BP 185/87; PULSE 90; RESP 20; TEMP 36.8; O2SAT 100
--- NOTE | 2020-08-18 15:42 | ED.BACK ---
HPI - Back Pain/Injury General Chief Complaint: Back Pain/Injury Stated Complaint: Whole body cramping/Pain Time Seen by Provider: 08/18/20 15:41 Source: patient Limitations: no limitations History of Present Illness HPI Narrative: Gentleman with type 1 diabetes, CML, chronic myalgias presents with increasing myalgias and muscle spasm. Notes that his sugars have been stable with his current 20 units of Lantus at night and sliding scale Humalog however his monitor has recently broken and he is only checking twice a day. He complains of chronic morning nausea secondary to chemotherapy and does not feel like this is significantly changed. No fevers, cough, chest pain, orthopnea, lower extremity edema, abdominal pain, diarrhea. He does note that there is a rash developing over his forehead and temples mildly erythematous with small milia appreciated. He has a history of spinal osteomyelitis and back pain. He is complaining of back pain, spasms, right hip pain and overall general malaise. His primary care physician is Dr. Dhillon in [facility]. There is a he was seen by his primary care physician and prescribed muscle relaxers which were of no benefit. Related Data Home Medications Medication Instructions Recorded Confirmed Syringes 1 syr MISCELLANEOUS DIRECTED 11/10/17 03/08/19 True Metrix test strips 0 strip .ROUTE .MEDSUPPLY 04/06/18 03/08/19 sulfamethoxazole-trimethoprim 01/20/20 Previous Rx's Medication Instructions Recorded BD U/F Hilad Pen Needle [id number] #100 each 06/13/18 insulin lispro 100 unit/mL 1 - 12 unit SUBCUT TIDCC #1 ea 06/13/18 subcutaneous pen insulin glargine 100 unit/mL (3 25 unit SUBCUT BID #15 ml 08/02/18 mL) subcutaneous pen prochlorperazine maleate 10 mg PO Q6H PRN #30 tab 10/04/18 [Compazine] L.acidoph-L.bulg-B.bif-S.therm 1 ea PO TIDWM #90 tab 10/24/18 [Bacid (L. acidophilus)] docusate sodium [DOK] 100 mg PO BID #60 cap 10/24/18 oxycodone 10 mg PO Q6-12H PRN #15 tab 07/15/19 ondansetron 4 mg PO QID PRN #30 tab 11/22/18 True Metrix Glucose Test Strip #100 each NS 11/29/18 True Metrix Blood Glucose Meter #1 ea 12/09/18 alum-mag hydroxide-simeth [Maalox 5 ml PO QID PRN #355 ml 04/23/19 Maximum Strength] ondansetron 4 mg PO Q6H #12 tab 04/23/19 imatinib [Gleevec] 300 mg PO QPM #90 tab 08/17/19 lorazepam 1 mg PO BID PRN #60 tab 09/18/19 oxycodone 5 mg PO BID PRN #5 tab 01/20/20 cephalexin 500 mg PO TID #30 cap 03/19/20 sulfamethoxazole-trimethoprim 1 tab PO BID #20 tab 03/19/20 [Bactrim DS] doxycycline hyclate 100 mg PO BID #20 cap 04/08/20 Allergies Allergy/AdvReac Type Severity Reaction Status Date / Time Penicillins [PENICILLINS] Allergy Severe Tongue Verified 03/19/20 13:07 swelling, hives adhesive Allergy Unknown PLASTIC Verified 03/19/20 13:07 TAPE latex [LATEX] Allergy Unknown Verified 03/19/20 13:07 Review of Systems Review of Systems Narrative: Remainder of complete review of systems is otherwise unremarkable except for that included in the HPI. Patient History Medical History Alcoholism Central cord syndrome at C3 level of cervical spinal cord Chronic, continuous use of opioids CML (chronic myelocytic leukemia) Insulin dependent diabetes mellitus Pancytopenia Thrombocytopenia Surgical History Status post appendectomy Family History Grandfather Diabetes mellitus Mother Cancer Social History household members: none Smoking Status: Former smoker alcohol intake: former substance use type: former substance user Smoking Status: Former smoker tobacco type: smokeless tobacco alcohol intake frequency: a few times a week Alcohol type: beer Substance Use Type: does not use Exam Narrative Exam Narrative: General: Pale, chronically ill-appearing, in no acute distress. Able to give a complete and coherent history. HEENT: Moist mucous membranes, normal sclera with reactive pupils, Respiratory: Lungs are clear to auscultation, no wheezing no rales no rhonchi. Full and symmetrical air movement Cardiac: Regular rate and rhythm no murmurs no bruits Abdomen: Soft, nontender, good bowel tones, no flank pain Spine: No skin changes or point tenderness along the lumbar spine however he complains of tenderness and muscle spasm along the entire lower back radiating down into the right hip Skin: Warm and dry, no rashes Neurologic: Grossly neurologically intact with no obvious asymmetries or abnormalities Extremities: No trauma, well perfused Psych: Cooperative, appropriate insight and affect Initial Vital Signs Initial Vital Signs: Vital Signs Temperature 98.2 F 08/18/20 15:21 Pulse Rate 90 08/18/20 15:21 Respiratory Rate 20 08/18/20 15:21 Blood Pressure 185/87 H 08/18/20 15:21 Pulse Oximetry 100 08/18/20 15:21 Course Orders Ordered: ED Orders 08/18/20 15:53 XR hip w pel if done RT 2V Stat XR lumbar spine 2-3V Stat 08/18/20 16:05 Urinalysis and Microscopic Stat 08/18/20 16:31 Complete Blood Count AUTO DIFF Stat Comprehensive Metabolic Panel Stat Lipase Stat Magnesium Stat Hydromorphone HCl (Hydromorphone 0.5 Mg Inj) 0.5 mg IV Q15MIN PRN PRN Reason: Pain, Last Admin: 08/18/20 16:42 Dose: 0.5 mg Documented by: CTRBEVERLY Discontinued Medications Hydromorphone HCl (Hydromorphone 1 Mg Inj) 1 mg IV NOW ONE Stop: 08/18/20 17:57 Last Admin: 08/18/20 18:07 Dose: 1 mg Documented by: Sodium Chloride (Normal Saline 0.9%) 1,000 mls @ 1,000 mls/hr IV BOLUS ONE Stop: 08/18/20 16:52 Last Admin: 08/18/20 16:38 Dose: 1,000 mls/hr Documented by: CTRBEVERLY Ondansetron HCl (Ondansetron 4 Mg/2 Ml Inj) 4 mg IV NOW ONE Stop: 08/18/20 15:54 Last Admin: 08/18/20 16:40 Dose: 4 mg Documented by: [email or web address] Vital Signs Vital signs: Vital Signs - 8 hr 08/18/20 15:21 08/18/20 17:12 Temperature 98.2 F Pulse Rate 90 73 Respiratory Rate 20 Blood Pressure 185/87 H 154/84 H Pulse Oximetry 100 100 MDM - Back Pain/Injury Medical Records Attestation: I reviewed the patient's medical records. Lab Data Attestation: I reviewed the patient's lab results. Result diagrams: 08/18/20 16:31 08/18/20 16:31 Labs: Lab Results 08/18/20 08/18/20 08/18/20 Range/Units 16:05 16:31 16:31 WBC 2.6 L (4.5-11.0) X10^3/uL RBC 2.88 L (4.5-5.9) X10^6/uL Hgb 9.6 L (13.5-17.5) g/dL Hct 27.7 L (41-53) % MCV 96.2 (80-100) fL MCH 33.3 (26-34) PG MCHC 34.6 (30-36) % RDW 14.8 (11.6-14.8) % Plt Count 56 L (150-400) X10^3/uL Neut % (Auto) 61.7 (50-75) % Lymph % (Auto) 23.4 L (25-40) % [place] % (Auto) 11.7 (3-14) % Eos % (Auto) 2.8 (2-4) % Baso % (Auto) 0.4 (0-2) % Neut # (Auto) 1600 (0990-4816) /uL Lymph # (Auto) 600 L (8563-0808) /uL [place] # (Auto) 300 (0-900) /uL Eos # (Auto) 100 (0-450) /uL Baso # (Auto) 0 (0-100) /uL Sodium 139 (137-145) mmol/L Potassium 4.8 (3.4-5.1) mmol/L Chloride 111 H (98-107) mmol/L Carbon Dioxide 19 L (22-32) mmol/L BUN 13 (9-20) mg/dL Creatinine 1.01 (0.66-1.25) mg/dL Estimated GFR > 60.0 (>60) mL/min BUN/Creatinine Ratio 12.9 (6-22) Glucose 196 H (70-100) mg/dL Calcium 8.9 (8.4-10.2) mg/dL Magnesium 1.6 (1.6-2.3) mg/dL Total Bilirubin 0.3 (0.2-1.3) mg/dL AST 46 (17-59) IU/L ALT 24 (<50) IU/L Alkaline Phosphatase 115 (38-126) U/L Total Protein 7.3 (6.3-8.2) g/dL Albumin 4.1 (3.5-5.0) g/dL Globulin 3.2 (1.7-4.1) g/dL Albumin/Globulin Ratio 1.3 (1.0-2.8) Lipase < 10 L (23-300) U/L Urine Color Yellow Urine Appearance Clear Urine pH 6.0 (4.5-8.0) Ur Specific [place] 1.020 (1.000-1.035) Urine Protein Negative (Negative) Urine Glucose (UA) Negative (Negative) g/dL Urine Ketones Negative (NEGATIVE) Urine Occult Blood Negative (Negative) Urine Nitrate Negative (Negative) Urine Bilirubin Negative (NEGATIVE) Urine Urobilinogen 0.2 (0.2) E.U./dL Ur Leukocyte Esterase Negative (NEGATIVE) Urine RBC None seen (0-5/HPF) Urine WBC None seen (0-5/HPF) Urine Bacteria Few (2-10) H (None) Ur Culture Indicated? Cult not indicated Urine Dip Bedside Urine Glucose Negative Bedside Urine Bilirubin - Negative Bedside Urine Ketone - Negative Urine Specific [place] 1.020 Bedside Urine Occult Blood - Negative Bedside Urine pH 6.0 Bedside Urine Protein - Negative Bedside Urine Urobilinogen - Negative Bedside Urine Nitrite - Negative Bedside Urine Leukocytes - Negative Esterase Imaging Data X-ray hip: Radiologist's Impression: FINDINGS: Bones: No fractures or dislocations. Pelvic ring appears intact. No suspicious bony lesions. There is mild superior joint space narrowing seen of both hips, with associated remodeling changes with subchondral sclerosis and osteophyte formation. Lower lumbar spine postoperative change is seen. Soft tissues: The visualized bowel gas pattern is normal. No suspicious soft tissue calcifications. IMPRESSION: Mild bilateral hip degenerative change. If it would be helpful for clinical management decision making, please consider a dedicated hip MRI for further evaluation (assuming that there is no contraindication). If there is strong clinical concern for a labral abnormality, this should be performed according to the arthrogram protocol. Dictated by: Hector Lai M.D. on 08/18/2020 at 15:30 XR pelvis and hip: Radiologist's Impression: FINDINGS: Bones: Stable anterior compression deformity can be seen of L4. Grade 1/2 retrolisthesis is seen at L4-L5. There is overall straightening of the normal lumbar lordosis. L4-L5 fixation hardware is seen, with bilateral pedicle screws and vertical fixation rods. A disc spacer is seen. 5 nonrib-bearing, lumbar type vertebral bodies are seen. No displaced fractures are seen. No suspicious lytic or blastic lesions are seen. Soft tissues: Overlying bowel gas pattern is normal. No suspicious soft tissue calcifications. IMPRESSION: No acute abnormality can be seen. No suspicious bony abnormality is seen to suggest osteomyelitis. If it would be helpful for clinical management decision making, please consider a dedicated lumbar spine MRI (without and with contrast) for further evaluation (assuming that there is no contraindication). Stable findings of L4 anterior wedge deformity with L4-L5 retrolisthesis and stable postoperative hardware. Dictated by: Hector Lai M.D. on 08/18/2020 at 15:47 MDM Narrative Medical decision making narrative: 44-year-old gentleman with type 1 diabetes, CML and multiple chronic pain and spasm complaints. He does have a history of polysubstance abuse including alcohol, pain medications and is currently on a mg of Valium at least daily to help with chemotherapy related nausea. He has an established primary care physician ev Gillette who he saw 2 days ago for the same issues. He was given a prescription for cyclobenzaprine which he has not found effective. At this time, with Dilaudid, his symptoms are not changed at all. His labs and remaining workup is entirely unremarkable without evidence of acute infection, dehydration, electrolyte abnormalities and his pancytopenia is unchanged. He is requesting a muscle relaxer that would be more effective. Given the fact that this is been present for 6 months and not particularly changing and not sure that I have access to a medication like that. I did suggest amitriptyline is something that might help mitigate his symptoms and help him sleep. He states that he has tried that in the past and has not been effective. He is discharged home. He does have follow-up scheduled with his primary care physician next week. Discharge Plan Departure Patient Disposition: Home Clinical Impression: Muscle spasm, Type 1 diabetes Back pain Qualifiers: Back pain location: low back pain Chronicity: chronic Back pain laterality: bilateral Sciatica presence: without sciatica Qualified Code(s): M54.5 - Low back pain Instructions: DI for Muscle Spasm Activity Restrictions/Additional Instructions: Thank you for coming in today Your lab work was reassuring. There are no acute findings to suggest underlying diagnosis for the muscle spasms that you are experiencing. Please follow-up with your primary care physician to see what other options they suggest. I hope you feel better Prescriptions: No Action (DME) BD U/F Hilda Pen Needle [id number] .Route .MEDSUPPLY Qty: 100 RF: 3 Humalog KwikPen Insulin 100 unit/mL insulin pen 1 - 12 unit subcut TIDCC Qty: 1 RF: 3 Lantus Solostar U-100 Insulin 100 unit/mL (3 mL) insulin pen 25 unit SUBCUT BID Qty: 15 RF: 3 (DME) True Metrix Glucose Test Strip strip See Dose Instructions .ROUTE .MEDSUPPLY Qty: 100 RF: 1 (DME) True Metrix Blood Glucose Meter Qty: 1 RF: 0 True Metrix test strips strip 0 strip .Route .MEDSUPPLY RF: 0 prochlorperazine maleate [Compazine] 10 mg Tablet 10 mg PO Q6H PRN (Reason: Nausea) Qty: 30 RF: 2 ondansetron 4 mg tablet,disintegrating 4 mg PO QID PRN (Reason: nausea and vomiting) Qty: 30 RF: 3 imatinib [Gleevec] 100 MG tablet 300 mg PO QPM Qty: 90 RF: 11 lorazepam 1 mg Tablet 1 mg PO BID PRN (Reason: nauseas) Qty: 60 RF: 0 Syringes 1 syr miscellaneous DIRECTED RF: 0 ondansetron 4 mg tablet,disintegrating 4 mg PO Q6H Qty: 12 RF: 0 Maalox Maximum Strength 400-400-40 mg/5 mL suspension 5 ml PO QID PRN (Reason: indigestion) Qty: 355 RF: 0 sulfamethoxazole-trimethoprim 800-160 mg tablet RF: 0 oxycodone 5 mg tablet 5 mg PO BID PRN (Reason: pain) Qty: 5 RF: 0 sulfamethoxazole-trimethoprim [Bactrim DS] 800-160 mg tablet 1 tab PO BID Qty: 20 RF: 0 cephalexin 500 mg capsule 500 mg PO TID Qty: 30 RF: 0 Bacid 1 billion cell- 250 mg Tablet 1 ea PO TIDWM Qty: 90 RF: 0 docusate sodium [DOK] 100 mg Capsule 100 mg PO BID Qty: 60 RF: 0 oxycodone 5 mg Tablet 10 mg PO Q6-12H PRN (Reason: Pain, Moderate (4-6)) Qty: 15 RF: 0 doxycycline hyclate 100 mg capsule 100 mg PO BID Qty: 20 RF: 0
--- NOTE | 2020-08-18 15:53 | DI.RAD.S_ITS ---
PROCEDURE: XR LUMBAR SPINE 2-3V INDICATIONS: pain, h/o osteomyelitis, CML TECHNIQUE: 3 views of the lumbar spine were acquired. COMPARISON: [facility], MR, MR LUMBAR SPINE WO CON, 11/21/2019, 15:28. [facility], CR, XR HIP W PEL IF DONE RT 2V, 08/18/2020, 16:00. [facility], CT, CT CHEST ABDOMEN PELVIS WITH CONTRAST, 11/10/2017, 21:33. [facility], CR, XR LUMBAR SPINE 2 OR 3 VIEWS, 11/14/2017, 14:56. [facility], CR, L-SPINE MINIMUM 4 VIEWS, 01/01/2015, 5:48. FINDINGS: Bones: Stable anterior compression deformity can be seen of L4. Grade 1/2 retrolisthesis is seen at L4-L5. There is overall straightening of the normal lumbar lordosis. L4-L5 fixation hardware is seen, with bilateral pedicle screws and vertical fixation rods. A disc spacer is seen. 5 nonrib-bearing, lumbar type vertebral bodies are seen. No displaced fractures are seen. No suspicious lytic or blastic lesions are seen. Soft tissues: Overlying bowel gas pattern is normal. No suspicious soft tissue calcifications. IMPRESSION: No acute abnormality can be seen. No suspicious bony abnormality is seen to suggest osteomyelitis. If it would be helpful for clinical management decision making, please consider a dedicated lumbar spine MRI (without and with contrast) for further evaluation (assuming that there is no contraindication). Stable findings of L4 anterior wedge deformity with L4-L5 retrolisthesis and stable postoperative hardware. Dictated by: Hector Lai M.D. on 08/18/2020 at 15:47 Approved by: Hector Lai M.D. on 08/18/2020 at 15:49
--- NOTE | 2020-08-18 15:53 | DI.RAD.S_ITS ---
PROCEDURE: XR HIP W PEL IF DONE RT 2V INDICATIONS: pain and cramping TECHNIQUE: AP pelvis with lateral view(s) of the right hip(s). COMPARISON: [facility], , XR LUMBAR SPINE 2-3V, 08/18/2020, 16:00. [facility], , [id number] W PEL IF PERFORMED, 04/29/2015, 10:38. FINDINGS: Bones: No fractures or dislocations. Pelvic ring appears intact. No suspicious bony lesions. There is mild superior joint space narrowing seen of both hips, with associated remodeling changes with subchondral sclerosis and osteophyte formation. Lower lumbar spine postoperative change is seen. Soft tissues: The visualized bowel gas pattern is normal. No suspicious soft tissue calcifications. IMPRESSION: Mild bilateral hip degenerative change. If it would be helpful for clinical management decision making, please consider a dedicated hip MRI for further evaluation (assuming that there is no contraindication). If there is strong clinical concern for a labral abnormality, this should be performed according to the arthrogram protocol. Dictated by: Hector Lai M.D. on 08/18/2020 at 15:30 Approved by: Hector Lai M.D. on 08/18/2020 at 15:31
[2020-08-18 16:38] LABS: Add Manual Diff / Slide Review NO; Basophils Absolute Auto 0 /uL (0-100); Basophils Percent Auto 0.4 % (0-2); Eosinophils Absolute Auto 100 /uL (0-450); Eosinophils Percent Auto 2.8 % (2-4); Hematocrit 27.7 % (41-53); Hemoglobin 9.6 g/dL (13.5-17.5); Lymphocytes Absolute Auto 600 /uL (1100-4500); Lymphocytes Percent Auto 23.4 % (25-40); Mean Corpuscular HGB Conc 34.6 % (30-36); Mean Corpuscular Hemoglobin 33.3 PG (26-34); Mean Corpuscular Volume 96.2 fL (80-100); Monocytes Absolute Auto 300 /uL (0-900); Monocytes Percent Auto 11.7 % (3-14); Neutrophils Absolute Auto 1600 /uL (1500-7000); Neutrophils Percent Auto 61.7 % (50-75); Platelet Count 56 X10^3/uL (150-400); Red Blood Cell Count 2.88 X10^6/uL (4.5-5.9); Red Cell Distribution Width 14.8 % (11.6-14.8); White Blood Cell Count 2.6 X10^3/uL (4.5-11.0)
[2020-08-18] MEDS: SODIUM CHLORIDE 0.9% 1,000 ML 1000 ML IV (16:38)
[2020-08-18 16:39] LABS: RBC Urine None Seen (0-5/HPF); WBC Urine None Seen (0-5/HPF)
[2020-08-18] MEDS: ONDANSETRON 4 MG/2 ML INJ IV (16:40)
[2020-08-18 16:42] LABS: Appearance Urine UA CLEAR; Bilirubin Urine UA NEGATIVE (NEGATIVE); Color Urine UA YELLOW; Glucose Urine UA NEGATIVE (Negative); Ketones Urine UA NEGATIVE (NEGATIVE); Leukocyte Esterase Urine UA NEGATIVE (NEGATIVE); Nitrite Urine UA NEGATIVE (Negative); Occult Blood Urine UA NEGATIVE (Negative); Protein Urine UA NEGATIVE (Negative); Urobilinogen Urine UA 0.2 E.U./dL (0.2)
[2020-08-18] MEDS: HYDROMORPHONE 0.5 MG INJ IV (16:42)
[2020-08-18 16:47] LABS: Alanine Aminotransferase 24 IU/L (<50); Albumin 4.1 g/dL (3.5-5.0); Albumin Globulin Ratio 1.3 (1.0-2.8); Alkaline Phosphatase 115 U/L (38-126); Aspartate Aminotransferase 46 IU/L (17-59); BUN Creatinine Ratio 12.9 (6-22); Bilirubin Total 0.3 mg/dL (0.2-1.3); Blood Urea Nitrogen 13 mg/dL (9-20); Calcium 8.9 mg/dL (8.4-10.2); Carbon Dioxide 19 mmol/L (22-32); Chloride 111 mmol/L (98-107); Estimated Glomerular Filt Rate > 60.0 mL/min (>60); Globulin 3.2 g/dL (1.7-4.1); Glucose 196 mg/dL (70-100); HEMOLYSIS 15 (0-50); Magnesium 1.6 mg/dL (1.6-2.3); Potassium 4.8 mmol/L (3.4-5.1); Sodium 139 mmol/L (137-145); Total Protein 7.3 g/dL (6.3-8.2)
[2020-08-18 16:48] LABS: Lipase < 10 U/L (23-300)
[2020-08-18 16:59] LABS: Bacteria Urine Few (2-10); Culture Indicated Urine Cult Not Indicated
[2020-08-18 17:12] VITALS: BP 154/84; PULSE 73; O2SAT 100
[2020-08-18] MEDS: HYDROMORPHONE 1 MG INJ IV (18:07)
--- NOTE | 2020-08-18 18:24 | PC.NURSE ---
Gave pt sandwich and apple juice.
[2020-08-18 18:31] VITALS: BP 162/82; PULSE 68; RESP 18; O2SAT 98
== END 2020-08-18 18:32 | disposition home or self-care (01) ==
PROVIDERS: Emergency Provider Emergency Medicine
DX: M62.838 Other muscle spasm (principal); M54.5 Low back pain; E10.9 Type 1 diabetes mellitus without complications
CPT/HCPCS: 36415; 72100; 73502; 80053; 81001; 81003; 83690; 83735; 85025; 96374; 96375; 96376; 99284; J1170; J2405

== ENCOUNTER 2020-10-21 06:16 | Emergency (ER) | payer OTHER, MEDICAID, SELFPAY ==
[2020-10-21] VITALS (12 sets, daily range): BP systolic 125–158; BP diastolic 76–90; PULSE 66–106; RESP 14–24; TEMP 36.8; O2SAT 98–100; BMI 19.8
[2020-10-21 06:41] LABS: Add Manual Diff / Slide Review NO; Basophils Absolute Auto 0 /uL (0-100); Basophils Percent Auto 0.4 % (0-2); Eosinophils Absolute Auto 100 /uL (0-450); Eosinophils Percent Auto 1.3 % (2-4); Hematocrit 32.4 % (41-53); Lymphocytes Absolute Auto 1500 /uL (1100-4500); Lymphocytes Percent Auto 34.6 % (25-40); Mean Corpuscular HGB Conc 33.9 % (30-36); Mean Corpuscular Hemoglobin 32.9 PG (26-34); Monocytes Absolute Auto 400 /uL (0-900); Neutrophils Absolute Auto 2300 /uL (1500-7000); Neutrophils Percent Auto 53.7 % (50-75); Platelet Count 76 X10^3/uL (150-400); Red Blood Cell Count 3.34 X10^6/uL (4.5-5.9); Red Cell Distribution Width 13.4 % (11.6-14.8); White Blood Cell Count 4.2 X10^3/uL (4.5-11.0)
[2020-10-21 06:49] LABS: COVID19 -Nasal RAPID Negative (Negative)
[2020-10-21 06:50] LABS: Alanine Aminotransferase 22 IU/L (<50); Albumin 4.6 g/dL (3.5-5.0); Albumin Globulin Ratio 1.3 (1.0-2.8); Alkaline Phosphatase 107 U/L (38-126); Aspartate Aminotransferase 34 IU/L (17-59); BUN Creatinine Ratio 12.8 (6-22); Bilirubin Total 0.4 mg/dL (0.2-1.3); Blood Urea Nitrogen 14 mg/dL (9-20); Calcium 9.2 mg/dL (8.4-10.2); Carbon Dioxide 21 mmol/L (22-32); Chloride 110 mmol/L (98-107); Estimated Glomerular Filt Rate > 60.0 mL/min (>60); Globulin 3.5 g/dL (1.7-4.1); Glucose 134 mg/dL (70-100); HEMOLYSIS < 15 (0-50); Potassium 4.7 mmol/L (3.4-5.1); Sodium 142 mmol/L (137-145); Total Protein 8.1 g/dL (6.3-8.2)
[2020-10-21 06:51] LABS: Lipase < 10 U/L (23-300)
--- NOTE | 2020-10-21 07:03 | ED_ITS ---
HPI - Nausea/Vomiting/Diarrhea General Chief complaint: Nausea/Vomiting/Diarrhea Stated complaint: nausea/vomiting weak shakey on chemo Time Seen by Provider: 10/21/20 07:02 Source: patient Mode of arrival: Ambulatory Limitations: no limitations History of Present Illness HPI Narrative: This is a 44-year-old male with known, CML and history of osteomyelitis 6 years prior with chronic back pain. Patient states that through the weekend he has had nausea and vomiting and abdominal cramping. Patient states he typically has fevers and chills and had this through the weekend but this is normal for him. He denies any new chest pain or shortness of breath. He abdominal cramping. Patient has had bowel movements they have been a little bit more solid. He has not any bright red or blood. He has had urinary ivonne quency but no dysuria, sense of urgency or discharge. He also states his urinary frequency is normal for him as well. Patient states that he did not get his lorazepam prescription to the pharmacy before the beginning of the weekend and he was out throughout the weekend. He usually takes this for antinausea medication. Patient has not had any new changes to his medications recently. Patient has not had any 2 changes to his back pain. His primary care is Dr. Dhillon in [place]. Patient comes today stating that his sugars have been and down. He was 290 this morning, and states he thinks he is likely lower since he was vomiting all morning. Related Data Home Medications Medication Instructions Recorded Confirmed Syringes 1 syr MISCELLANEOUS DIRECTED 11/10/17 03/08/19 True Metrix test strips 0 strip .ROUTE .MEDSUPPLY 04/06/18 03/08/19 sulfamethoxazole 800 01/20/20 mg-trimethoprim 160 mg tablet Previous Rx's Medication Instructions Recorded BD U/F Hilda Pen Needle [id number] #100 each 06/13/18 insulin lispro 100 unit/mL 1 - 12 unit SUBCUT TIDCC #1 ea 06/13/18 subcutaneous pen (Humalog KwikPen (U-100) Insulin) insulin glargine 100 unit/mL (3 25 unit SUBCUT BID #15 ml 08/02/18 mL) subcutaneous pen (Lantus Solostar U-100 Insulin) prochlorperazine maleate 10 mg 10 mg PO Q6H PRN #30 tab 10/04/18 tablet (Compazine) L.acidophilus-L.bulgar-B.bifid-S.thermoph 1 ea PO TIDWM #90 tab 10/24/18 1 billion cell-250 mg tablet (Bacid) docusate sodium 100 mg capsule 100 mg PO BID #60 cap 10/24/18 (DOK) oxycodone 5 mg tablet 10 mg PO Q6-12H PRN #15 tab 10/24/18 ondansetron 4 mg disintegrating 4 mg PO QID PRN #30 tab 11/22/18 tablet True Metrix Glucose Test Strip #100 each NS 11/29/18 (blood sugar diagnostic) True Metrix Blood Glucose Meter #1 ea 12/09/18 aluminum-mag hydroxide-simethicone 5 ml PO QID PRN #355 ml 04/23/19 400 mg-400 mg-40 mg/5 mL oral susp (Maalox Maximum Strength) ondansetron 4 mg disintegrating 4 mg PO Q6H #12 tab 04/23/19 tablet imatinib 100 mg tablet (Gleevec) 300 mg PO QPM #90 tab 08/17/19 lorazepam 1 mg tablet 1 mg PO BID PRN #60 tab 09/18/19 oxycodone 5 mg tablet 5 mg PO BID PRN #5 tab 01/20/20 cephalexin 500 mg capsule 500 mg PO TID #30 cap 03/19/20 sulfamethoxazole 800 1 tab PO BID #20 tab 03/19/20 mg-trimethoprim 160 mg tablet (Bactrim DS) doxycycline hyclate 100 mg capsule 100 mg PO BID #20 cap 04/08/20 Allergies Allergy/AdvReac Type Severity Reaction Status Date / Time Penicillins [PENICILLINS] Allergy Severe Tongue Verified 10/21/20 06:28 swelling, hives morphine Allergy Mild Hives Verified 10/21/20 08:34 adhesive Allergy Unknown PLASTIC Verified 10/21/20 06:28 TAPE latex [LATEX] Allergy Unknown Verified 10/21/20 06:28 Review of Systems Review of Systems ROS Unobtainable: All systems reviewed & are unremarkable except as noted in HPI and below Patient History Medical History Alcoholism Central cord syndrome at C3 level of cervical spinal cord Chronic, continuous use of opioids CML (chronic myelocytic leukemia) Insulin dependent diabetes mellitus Pancytopenia Thrombocytopenia Surgical History Status post appendectomy Family History Grandfather Diabetes mellitus Mother Cancer Social History household members: none Smoking Status: Former smoker alcohol intake: former substance use type: former substance user Smoking Status: Former smoker tobacco type: smokeless tobacco alcohol intake frequency: a few times a week Alcohol type: beer Substance Use Type: does not use Exam Narrative Exam Narrative: GENERAL: Alert and oriented x three, male in mild distress. HEENT: Head normocephalic, atraumatic, EOMI, pupils reactive, face symmetric, moist mucous membranes NECK: Supple, full range of motion CARDIOVASCULAR: Regular rate and rhythm without murmurs, rubs or gallops. RESPIRATORY: Breath sounds equal bilaterally, no wheezes rales or rhonchi. ABDOMEN: Soft, mild generalized tenderness. Nondistended. Normoactive bowel sounds all 4 quadrants. No guarding or rebound, rigidity, no mass : No CVA tenderness EXTREMITIES: Normal range of motion, no clubbing or edema. Neurovascularly intact NEUROLOGICAL: Cranial nerves II through XII grossly intact. Moving all extremities SKIN: Warm, dry, no petechiae, no rashes or lesions. Initial Vital Signs Initial Vital Signs: Vital Signs Temperature 98.3 F 10/21/20 06:28 Pulse Rate 106 H 10/21/20 06:28 Respiratory Rate 24 10/21/20 06:28 Blood Pressure 143/81 H 10/21/20 06:28 Pulse Oximetry 100 10/21/20 06:28 Course Orders Ordered: Discontinued Medications Diphenhydramine HCl (Diphenhydramine 50 Mg/Ml Vial) 50 mg IV NOW ONE Stop: 10/21/20 08:23 Last Admin: 10/21/20 08:28 Dose: 50 mg Documented by: SUSAN Hydromorphone HCl (Hydromorphone 0.5 Mg Inj) 0.5 mg IV NOW ONE Stop: 10/21/20 09:12 Last Admin: 10/21/20 09:51 Dose: 0.5 mg Documented by: SUSAN Sodium Chloride (Normal Saline 0.9%) 1,000 mls @ 1,000 mls/hr IV BOLUS ONE Stop: 10/21/20 08:06 Last Infusion: 10/21/20 09:37 Dose: 0 mls/hr Documented by: Admin: 10/21/20 07:32 Dose: 1,000 mls/hr Documented by: SUSAN Ketorolac Tromethamine (Ketorolac 30 Mg/Ml Vial) 15 mg IV NOW ONE Stop: 10/21/20 07:16 Last Admin: 10/21/20 07:30 Dose: 15 mg Documented by: SUSAN Lorazepam (Lorazepam 2 Mg/Ml Inj) 0.5 mg IV NOW ONE Stop: 10/21/20 07:16 Last Admin: 10/21/20 07:30 Dose: 0.5 mg Documented by: SUSAN Lorazepam (Lorazepam 2 Mg/Ml Inj) 0.5 mg IV NOW ONE Stop: 10/21/20 09:42 Last Admin: 10/21/20 09:52 Dose: 0.5 mg Documented by: SUSAN Methylprednisolone (Methylprednisolone 125 Mg/2 Ml Vial) 125 mg IV NOW ONE Stop: 10/21/20 08:28 Last Admin: 10/21/20 08:29 Dose: 125 mg Documented by: SUSAN Morphine Sulfate (Morphine 4 Mg/Ml Inj) 4 mg IV NOW ONE Stop: 10/21/20 07:53 Last Admin: 10/21/20 08:11 Dose: 4 mg Documented by: SUSAN Oxycodone HCl (Oxycodone Ir 5 Mg Tablet) 5 mg PO NOW ONE Stop: 10/21/20 09:42 Last Admin: 10/21/20 09:52 Dose: Not Given Documented by: SUSAN Reevaluation(s) Reevaluation #1: Patient had reaction to morphine. He has erythema and hives over his left forearm this site of the IV. This occurred right after morphine and prior to receiving IV contrast from the CT. Patient states he has not had similar symptoms in the past. He denies any other symptoms currently. Erythema and hives. Just before the crease of the elbow. Patient denies any other systemic symptoms currently. Benadryl and solumedrol given. Reevaluation #2: On recheck patient's erythema is resolved hives are still present but appears improved. Patient is not having any other systemic sym ptoms. Updated him on his findings, CT shows gallstones, possible thickening although this may be contracted. Ultrasound of right upper quadrant was ordered and ultimately did not show any thickening, no gallstones were in the fundus and not in the neck of the gallbladder and patient is nontender on exam. Discussed he will need follow-up for this but this is a less likely cause of his symptoms. Chemotherapy may be a cause as well as he is quite constipated on exam. Patient feels comfortable with this plan and feels comfortable to return home at this time. Vital Signs Vital signs: Vital Signs - 8 hr 10/21/20 06:28 10/21/20 07:00 10/21/20 07:30 Temperature 98.3 F Pulse Rate 106 H 93 H 89 Respiratory Rate 24 14 17 Blood Pressure 143/81 H 130/78 131/83 Pulse Oximetry 100 99 99 10/21/20 07:52 10/21/20 08:12 10/21/20 08:13 Temperature Pulse Rate 82 81 81 Respiratory Rate 14 Blood Pressure 136/83 Pulse Oximetry 99 99 98 10/21/20 08:30 10/21/20 08:33 10/21/20 09:00 Temperature Pulse Rate 85 90 72 Respiratory Rate Blood Pressure 158/86 H 129/79 Pulse Oximetry 100 100 100 10/21/20 09:30 Temperature Pulse Rate 71 Respiratory Rate Blood Pressure 158/87 H Pulse Oximetry 100 MDM - Nausea/Vomiting/Diarrhea Lab Data Result diagrams: 10/21/20 06:28 10/21/20 06:28 Labs: Lab Results 10/21/20 10/21/20 10/21/20 Range/Units 06:28 06:28 06:28 WBC 4.2 L (4.5-11.0) X10^3/uL RBC 3.34 L (4.5-5.9) X10^6/uL Hgb 11.0 L (13.5-17.5) g/dL Hct 32.4 L (41-53) % MCV 97.0 (80-100) fL MCH 32.9 (26-34) PG MCHC 33.9 (30-36) % RDW 13.4 (11.6-14.8) % Plt Count 76 L (150-400) X10^3/uL Neut % (Auto) 53.7 (50-75) % Lymph % (Auto) 34.6 (25-40) % [place]ette % (Auto) 10.0 (3-14) % Eos % (Auto) 1.3 L (2-4) % Baso % (Auto) 0.4 (0-2) % Neut # (Auto) 2300 (3784-6547) /uL Lymph # (Auto) 1500 (8701-2455) /uL [place] # (Auto) 400 (0-900) /uL Eos # (Auto) 100 (0-450) /uL Baso # (Auto) 0 (0-100) /uL Sodium 142 (137-145) mmol/L Potassium 4.7 (3.4-5.1) mmol/L Chloride 110 H (98-107) mmol/L Carbon Dioxide 21 L (22-32) mmol/L BUN 14 (9-20) mg/dL Creatinine 1.09 (0.66-1.25) mg/dL Estimated GFR > 60.0 (>60) mL/min BUN/Creatinine Ratio 12.8 (6-22) Glucose 134 H (70-100) mg/dL Calcium 9.2 (8.4-10.2) mg/dL Total Bilirubin 0.4 (0.2-1.3) mg/dL AST 34 (17-59) IU/L ALT 22 (<50) IU/L Alkaline Phosphatase 107 (38-126) U/L Total Protein 8.1 (6.3-8.2) g/dL Albumin 4.6 (3.5-5.0) g/dL Globulin 3.5 (1.7-4.1) g/dL Albumin/Globulin Ratio 1.3 (1.0-2.8) Lipase < 10 L (23-300) U/L SARS-CoV-2 (PCR) Negative (Negative) Point of Care Testing Glucose POC 102 Urine Dip Bedside Urine Glucose Negative Bedside Urine Bilirubin - Negative Bedside Urine Ketone - Negative Urine Specific [place] 1.015 Bedside Urine Occult Blood - Negative Bedside Urine pH 6 Bedside Urine Protein - Negative Bedside Urine Urobilinogen - Negative Bedside Urine Nitrite - Negative Bedside Urine Leukocytes - Negative Esterase Imaging Data CT scan - abdomen/pelvis: Radiologist's Impression: [address] [id number] Scan ReportSigned Patient: Lalo Han CMR#: [id number]: [id number]:[id number]/Sex: 44 / MDate of Service: 10/21/20Loc: EDAccession Number: [id number] Procedure: CT abdomen pelvis w con Ordering Provider: Zainab Patrick D.O. PROCEDURE: CT ABDOMEN PELVIS W CON INDICATIONS: vomiting, abd pain TECHNIQUE: After the administration of intravenous contrast, axial sections acquired from the lung bases to the pubic symphysis. Coronal and sagittal reformats were performed. For radiation dose reduction, the following was used: automated exposure control, adjustment of mA and/or kV according to patient size. COMPARISON: [facility], CT, CT ABDOMEN PELVIS W CON, 01/19/2018, 13:47. FINDINGS: Image quality: Excellent. Lung bases: Unremarkable. Heart: Heart size is normal, trace pericardial effusion is seen. ABDOMEN: Liver: No discrete hepatic lesion is noted. Liver size is normal. Gallbladder: Gallbladder is contracted. There is suggestion of mild gallbladder wall thickening and trace amount of pericholecystic fluid. Numerous calcified stones are seen in dependent portion of gallbladder lumen. Biliary ducts: No gross biliary ductal dilatation is seen. Pancreas: Pancreas is atrophic and fatty replaced containing numerous parenchymal calcifications likely represent prior episodes of pancreatitis. No peripancreatic fluid collection is seen. Spleen: There is splenomegaly, no discrete splenic lesion is seen. Adrenal Glands: Unremarkable. Kidneys and Ureters: No obstructing renal stone or hydronephrosis. Stomach and Bowel: Marked fecal stasis throughout the colon is seen extending to the rectum. No evidence of bowel obstruction. No gross gastric, small bowel or colon wall thickening. No mesenteric fat stranding. No abscess collection. Small hiatal hernia is seen. Peritoneum: No abnormal intraperitoneal fluid. No free air. Ventral Wall: No hernias. Abdominal Nodes: No retroperitoneal or mesenteric adenopathy by size criteria. Vessels: Aorta and inferior vena cava are normal in size. PELVIS: Pelvic Organs: Unremarkable. Bladder: Mild diffuse bladder wall thickening is noted, no discrete bladder wall mass. Pelvic Nodes: No enlarged lymph nodes. Miscellaneous: No hernias are seen. Bones: Post fusion changes are noted at L4-5 level. Straightening of normal lumbar lordosis is seen. No acute compression fracture. IMPRESSION: 1. Cholelithiasis with gallbladder wall thickening and trace amount of pericholecystic fluid concerning for cholecystitis. Gallbladder is contracted which could also contribute to the appearance of gallbladder wall thickening. Clinical correlation and possible ultrasound of right upper quadrant abdomen can be done for further evaluation of this region. 2. No significant biliary ductal dilatation. 3. Atrophic and fatty replaced pancreas with numerous pancreatic parenchymal calcifications suggestive of prior episodes of pancreatitis. No peripancreatic fluid collection. 4. Significant constipation and fecal impaction. No abnormal bowel wall thickening. No free fluid or free air. Small hiatal hernia. 5. Splenomegaly, no discrete splenic lesion. Dictated by: Mk Cordero M.D. on 10/21/2020 at 8:31 Approved by: Mk Cordero M.D. on 10/21/2020 at 8:37 US - abdomen: Radiologist's Impression: [address] [id number] ReportSigned Patient: Lalo Han CMR#: [id number]: 1975Acct:[id number]/Sex: 44 / MDate of Service: 10/21/20Loc: EDAccession Number: [id number] Procedure: US abdomen limited Ordering Provider: Zainab Patrick D.O. PROCEDURE: US ABDOMEN LIMITED INDICATIONS: abdominal pain, n/v over weekend. TECHNIQUE: Real-time focused scanning was performed of the abdomen, with image documentation. COMPARISON: None. FINDINGS: Normal size of the liver. Mildly increased hepatic parenchymal echogenicity indicative of diffuse mild to moderate hepatic steatosis. No focal hepatic mass. No intrahepatic or extrahepatic biliary ductal dilatation. The common duct measures approximately 6-7 millimeters at the jareth hepatis. The gallbladder is normally distended. There are multiple small stones and some sludge near the gallbladder fundus. No gallbladder wall thickening or pericholecystic fluid. Visualized portions of the pancreas are unremarkable IMPRESSION: Gallbladder sludge and small gallstones with no findings of cholecystitis. Dictated by: Aleks Drew M.D. on 10/21/2020 at 9:45 Approved by: Aleks Drew M.D. on 10/21/2020 at 9:46 [facility] Narrative Medical decision making narrative: This is a 44-year-old male comes in with complaint of nausea and vomiting and has been off his antinausea medication throughout the weekend which is lorazepam. Patient may also have a little bit a component of withdrawal. He is on chemotherapy for CML., patient's labs and imaging do show some possible gallstones on ultrasound he has stones with some sludge but no other acute changes consistent with cholecystitis, patient's a bdominal labs are not suspicious and he is nontender in the right upper quadrant on his initial or repeat exams. Patient does have quite a bit of constipation, he also has been vomiting regularly throughout the weekend. He is feeling improved at this time. Was recommended follow-up with General surgery as he may have future issues. Labs appear stable with a slight improvement his platelets 76. Electrolytes do show a chloride of 110 and a CO2 of 21 with no acute renal dysfunction or LFT/liver enzyme changes patient has had chronic pancreatitis and his lipase is negative with calcifications but no acute pancreatitis appreciated. Urine is negative without ketones after fluids. Patient states his medication should be available to pharmacy today. All questions answered he feel comfortable returning home at this time. Discharge Plan Departure Patient Disposition: Home Clinical Impression: Nausea & vomiting, Abdominal pain, Gallstones Instructions: DI for Gallstones Activity Restrictions/Additional Instructions: Follow up with your physician in the next several days. Call for an appointment. Your imaging today does show gallstones, you do not have any acute changes to your labs and your ultrasound does not show any thickening or signs of infection today. You may wish to have your gallbladder removed in the future and referral to General surgery is included. You imaging does show chronic changes consistent with prior pancreatitis and a fair amount of stool/constipation. I would recommend increasing your stool softeners. For fevers, lightheadedness or passing out, chest pain or shortness of breath, persistent vomiting, black or bloody stools or other new or concerning symptoms. Prescriptions: No Action (DME) BD U/F Hilda Pen Needle [id number] 0 .Route .MEDSUPPLY Qty: 100 RF: 3 Humalog KwikPen Insulin 100 unit/mL insulin pen 1 - 12 unit subcut TIDCC Qty: 1 RF: 3 Lantus Solostar U-100 Insulin 100 unit/mL (3 mL) insulin pen 25 unit SUBCUT BID Qty: 15 RF: 3 (DME) True Metrix Glucose Test Strip strip See Dose Instructions .ROUTE .MEDSUPPLY Qty: 100 RF: 1 (DME) True Metrix Blood Glucose Meter Qty: 1 RF: 0 True Metrix test strips strip 0 strip .Route .MEDSUPPLY RF: 0 prochlorperazine maleate [Compazine] 10 mg Tablet 10 mg PO Q6H PRN (Reason: Nausea) Qty: 30 RF: 2 ondansetron 4 mg tablet,disintegrating 4 mg PO QID PRN (Reason: nausea and vomiting) Qty: 30 RF: 3 imatinib [Gleevec] 100 MG tablet 300 mg PO QPM Qty: 90 RF: 11 lorazepam 1 mg Tablet 1 mg PO BID PRN (Reason: nauseas) Qty: 60 RF: 0 Syringes 1 syr miscellaneous DIRECTED RF: 0 ondansetron 4 mg tablet,disintegrating 4 mg PO Q6H Qty: 12 RF: 0 Maalox Maximum Strength 400-400-40 mg/5 mL suspension 5 ml PO QID PRN (Reason: indigestion) Qty: 355 RF: 0 sulfamethoxazole-trimethoprim 800-160 mg tablet RF: 0 oxycodone 5 mg tablet 5 mg PO BID PRN (Reason: pain) Qty: 5 RF: 0 sulfamethoxazole-trimethoprim [Bactrim DS] 800-160 mg tablet 1 tab PO BID Qty: 20 RF: 0 cephalexin 500 mg capsule 500 mg PO TID Qty: 30 RF: 0 Bacid 1 billion cell- 250 mg Tablet 1 ea PO TIDWM Qty: 90 RF: 0 docusate sodium [DOK] 100 mg Capsule 100 mg PO BID Qty: 60 RF: 0 oxycodone 5 mg Tablet 10 mg PO Q6-12H PRN (Reason: Pain, Moderate (4-6)) Qty: 15 RF: 0 doxycycline hyclate 100 mg capsule 100 mg PO BID Qty: 20 RF: 0 Referrals: Karen Workman MD [Physician] -
--- NOTE | 2020-10-21 07:15 | DI.CT.S_ITS ---
PROCEDURE: CT ABDOMEN PELVIS W CON INDICATIONS: vomiting, abd pain TECHNIQUE: After the administration of intravenous contrast, axial sections acquired from the lung bases to the pubic symphysis. Coronal and sagittal reformats were performed. For radiation dose reduction, the following was used: automated exposure control, adjustment of mA and/or kV according to patient size. COMPARISON: [facility], CT, CT ABDOMEN PELVIS W CON, 01/19/2018, 13:47. FINDINGS: Image quality: Excellent. Lung bases: Unremarkable. Heart: Heart size is normal, trace pericardial effusion is seen. ABDOMEN: Liver: No discrete hepatic lesion is noted. Liver size is normal. Gallbladder: Gallbladder is contracted. There is suggestion of mild gallbladder wall thickening and trace amount of pericholecystic fluid. Numerous calcified stones are seen in dependent portion of gallbladder lumen. Biliary ducts: No gross biliary ductal dilatation is seen. Pancreas: Pancreas is atrophic and fatty replaced containing numerous parenchymal calcifications likely represent prior episodes of pancreatitis. No peripancreatic fluid collection is seen. Spleen: There is splenomegaly, no discrete splenic lesion is seen. Adrenal Glands: Unremarkable. Kidneys and Ureters: No obstructing renal stone or hydronephrosis. Stomach and Bowel: Marked fecal stasis throughout the colon is seen extending to the rectum. No evidence of bowel obstruction. No gross gastric, small bowel or colon wall thickening. No mesenteric fat stranding. No abscess collection. Small hiatal hernia is seen. Peritoneum: No abnormal intraperitoneal fluid. No free air. Ventral Wall: No hernias. Abdominal Nodes: No retroperitoneal or mesenteric adenopathy by size criteria. Vessels: Aorta and inferior vena cava are normal in size. PELVIS: Pelvic Organs: Unremarkable. Bladder: Mild diffuse bladder wall thickening is noted, no discrete bladder wall mass. Pelvic Nodes: No enlarged lymph nodes. Miscellaneous: No hernias are seen. Bones: Post fusion changes are noted at L4-5 level. Straightening of normal lumbar lordosis is seen. No acute compression fracture. IMPRESSION: 1. Cholelithiasis with gallbladder wall thickening and trace amount of pericholecystic fluid concerning for cholecystitis. Gallbladder is contracted which could also contribute to the appearance of gallbladder wall thickening. Clinical correlation and possible ultrasound of right upper quadrant abdomen can be done for further evaluation of this region. 2. No significant biliary ductal dilatation. 3. Atrophic and fatty replaced pancreas with numerous pancreatic parenchymal calcifications suggestive of prior episodes of pancreatitis. No peripancreatic fluid collection. 4. Significant constipation and fecal impaction. No abnormal bowel wall thickening. No free fluid or free air. Small hiatal hernia. 5. Splenomegaly, no discrete splenic lesion. Dictated by: Mk Cordero M.D. on 10/21/2020 at 8:31 Approved by: Mk Cordero M.D. on 10/21/2020 at 8:37
[2020-10-21] MEDS: LORazepam 2 MG/ML INJ 0.5 MG IV ×2 (07:30→09:52)
[2020-10-21] MEDS: KETOROLAC 30 MG/ML VIAL 15 MG IV (07:30)
[2020-10-21] MEDS: SODIUM CHLORIDE 0.9% 1,000 ML 1000 ML IV (07:32)
[2020-10-21] MEDS: MORPHINE 4 MG/ML INJ IV (08:11)
[2020-10-21] MEDS: diphenhydrAMINE 50 MG/ML VIAL IV (08:28)
[2020-10-21] MEDS: methylPREDNISolone 125 MG/2 ML VIAL IV (08:29)
--- NOTE | 2020-10-21 08:30 | PC.NURSE ---
Pt returned from CT w/ hives on left arm. States they appeared after morphine but before IV contrast. No other hives, rash. No increase in work of breathing. Airway patent and intact. Dr. Patrick in to evaluate. Pt given benedryl and solumedrol.
--- NOTE | 2020-10-21 08:34 | PC.NURSE ---
Morphine added to Allergy list.
--- NOTE | 2020-10-21 08:57 | DI.US.S_ITS ---
PROCEDURE: US ABDOMEN LIMITED INDICATIONS: abdominal pain, n/v over weekend. TECHNIQUE: Real-time focused scanning was performed of the abdomen, with image documentation. COMPARISON: None. FINDINGS: Normal size of the liver. Mildly increased hepatic parenchymal echogenicity indicative of diffuse mild to moderate hepatic steatosis. No focal hepatic mass. No intrahepatic or extrahepatic biliary ductal dilatation. The common duct measures approximately 6-7 millimeters at the jareth hepatis. The gallbladder is normally distended. There are multiple small stones and some sludge near the gallbladder fundus. No gallbladder wall thickening or pericholecystic fluid. Visualized portions of the pancreas are unremarkable IMPRESSION: Gallbladder sludge and small gallstones with no findings of cholecystitis. Dictated by: Aleks Drew M.D. on 10/21/2020 at 9:45 Approved by: Aleks Drew M.D. on 10/21/2020 at 9:46
[2020-10-21] MEDS: HYDROMORPHONE 0.5 MG INJ IV (09:51)
== END 2020-10-21 10:48 | disposition home or self-care (01) ==
PROVIDERS: Emergency Medicine; Emergency Provider Emergency Medicine
DX: K80.20 Calculus of gallbladder without cholecystitis without obstruction (principal); R10.9 Unspecified abdominal pain; R11.2 Nausea with vomiting, unspecified; Z20.822 Contact with and (suspected) exposure to COVID-19
CPT/HCPCS: 36415; 74177; 76705; 80053; 81003; 82962; 83690; 85025; 87635; 96361; 96374; 96375; 96376; 99284; 99285; C9803; J1170; J1200; J1885; J2060; J2270; J2930

== ENCOUNTER → 2020-10-25 13:59 | Outpatient (CLI) | payer OTHER, MEDICAID, SELFPAY ==
--- NOTE | 2020-10-25 14:00 | DI.CT.S_ITS ---
PROCEDURE: CT CERVICAL SPINE WO CON INDICATIONS: Arthrodesis status TECHNIQUE: Noncontrast 3 mm thick sections acquired from the skull base to the T4 level. Sagittal and coronal reformats were then constructed. For radiation dose reduction, the following was used: automated exposure control, adjustment of mA and/or kV according to patient size. COMPARISON: [facility], MR, MR CERVICAL SPINE WITHOUT CONTRAST, 10/22/2020, 15:15. FINDINGS: These images demonstrate postsurgical changes of posterior fixation from C2-C6 and anterior fixation from C4-C7. No abnormal lucency surrounding the hardware to suggest loosening. The hardware appears to be in normal position and intact without evidence of an acute complicating hardware feature. Mature osseous fusion is present across the intervertebral disc spaces from C4 through C7 and amongst the posterior elements from C2-C6. No suspicious lytic or blastic osseous lesion. Vertebral body height and alignment are normal. The unenhanced prevertebral and paraspinal soft tissues are within normal limits. At C2-C3, the spinal canal is been widely decompressed. There is facet and uncovertebral hypertrophy but there is no neural foraminal stenosis. At C3-C4, the spinal canal is widely decompressed. There is facet and uncovertebral hypertrophy produces mild bilateral neural foraminal stenosis. At C4-C5, the spinal canal is widely decompressed. There is facet and uncovertebral hypertrophy producing mild bilateral neural foraminal stenosis. At C5-C6, the spinal canal is widely decompressed. There is facet and uncovertebral hypertrophy producing mild bilateral neural foraminal stenosis. At C6-C7, there is no spinal canal stenosis. There is facet and uncovertebral hypertrophy producing moderate left and mild right neural foraminal stenosis. At C7-T1, no spinal canal or neural foraminal stenosis. IMPRESSION: Postsurgical changes of posterior fixation from C2-C6 and anterior fixation from C4-C7. No acute complicating hardware feature. Multilevel multifactorial degenerative changes, most pronounced at C6-C7. Dictated by: Aleks Drew M.D. on 10/25/2020 at 15:00 Approved by: Aleks Drew M.D. on 10/25/2020 at 15:09
== END ==
PROVIDERS: Referring Provider Physician Assistant; Visit Provider Physician Assistant
DX: M47.812 Spondylosis without myelopathy or radiculopathy, cervical region (principal); Z98.1 Arthrodesis status
CPT/HCPCS: 72125

== ENCOUNTER 2020-11-13 06:57 | Emergency (ER) | payer OTHER, MEDICAID, SELFPAY ==
[2020-11-13] VITALS (7 sets, daily range): BP systolic 121–190; BP diastolic 74–89; PULSE 98–113; RESP 18–20; TEMP 36.7–37.7; O2SAT 99–100; BMI 20.4
--- NOTE | 2020-11-13 07:08 | ED_ITS ---
HPI - Extremity Problem General Chief complaint: Extremity Problem,Nontraumatic Stated complaint: right calf pain/warm to touch/x1 day Time Seen by Provider: 11/13/20 07:06 Source: patient Mode of arrival: Ambulatory Limitations: no limitations History of Present Illness HPI Narrative: This is a 45-year-old male with known CML on treatment with history of osteomyelitis with chronic back pain. Patient presents with swelling, redness and pain of his right lower extremity. Patient states he did have an infection in his lower extremity in the skin which required IV vancomycin. Patient states he was on IV vancomycin for approximately a year. He has not had any fevers or chills. He denies any chest pain or shortness of breath. No cold cough or congestion. No nausea or vomiting. Denies any abdominal pain. He has had some constipation but has been stooling. No urinary symptoms. Patient is currently actively on treatment for his CML. He does not take any blood thinners. Patient has not had any recent interventions or changes to his medications. He is allergic to penicillin. His primary care is Dr. Dhillon in [facility]. Related Data Home Medications Medication Instructions Recorded Confirmed Syringes 1 syr MISCELLANEOUS DIRECTED 11/10/17 03/08/19 True Metrix test strips 0 strip .ROUTE .MEDSUPPLY 04/06/18 03/08/19 sulfamethoxazole 800 01/20/20 mg-trimethoprim 160 mg tablet Previous Rx's Medication Instructions Recorded BD U/F Hilda Pen Needle 60Hb0cl #100 each 06/13/18 insulin lispro 100 unit/mL 1 - 12 unit SUBCUT TIDCC #1 ea 06/13/18 subcutaneous pen (Humalog KwikPen (U-100) Insulin) insulin glargine 100 unit/mL (3 25 unit SUBCUT BID #15 ml 08/02/18 mL) subcutaneous pen (Lantus Solostar U-100 Insulin) prochlorperazine maleate 10 mg 10 mg PO Q6H PRN #30 tab 10/04/18 tablet (Compazine) L.acidophilus-L.bulgar-B.bifid-S.thermoph 1 ea PO TIDWM #90 tab 10/24/18 1 billion cell-250 mg tablet (Bacid) docusate sodium 100 mg capsule 100 mg PO BID #60 cap 10/24/18 (DOK) oxycodone 5 mg tablet 10 mg PO Q6-12H PRN #15 tab 10/24/18 ondansetron 4 mg disintegrating 4 mg PO QID PRN #30 tab 11/22/18 tablet True Metrix Glucose Test Strip #100 each NS 11/29/18 (blood sugar diagnostic) True Metrix Blood Glucose Meter #1 ea 12/09/18 aluminum-mag hydroxide-simethicone 5 ml PO QID PRN #355 ml 04/23/19 400 mg-400 mg-40 mg/5 mL oral susp (Maalox Maximum Strength) ondansetron 4 mg disintegrating 4 mg PO Q6H #12 tab 04/23/19 tablet imatinib 100 mg tablet (Gleevec) 300 mg PO QPM #90 tab 08/17/19 lorazepam 1 mg tablet 1 mg PO BID PRN #60 tab 09/18/19 oxycodone 5 mg tablet 5 mg PO BID PRN #5 tab 01/20/20 cephalexin 500 mg capsule 500 mg PO TID #30 cap 03/19/20 sulfamethoxazole 800 1 tab PO BID #20 tab 03/19/20 mg-trimethoprim 160 mg tablet (Bactrim DS) doxycycline hyclate 100 mg capsule 100 mg PO BID #20 cap 04/08/20 clindamycin HCl 300 mg capsule 300 mg PO Q6H #40 cap 11/13/20 oxycodone 5 mg tablet 5 mg PO Q6H PRN #14 tab 11/13/20 Allergies Allergy/AdvReac Type Severity Reaction Status Date / Time Penicillins [PENICILLINS] Allergy Severe Tongue Verified 10/21/20 06:28 swelling, hives morphine Allergy Mild Hives Verified 10/21/20 08:34 adhesive Allergy Unknown PLASTIC Verified 10/21/20 06:28 TAPE latex [LATEX] Allergy Unknown Verified 10/21/20 06:28 Review of Systems Review of Systems ROS Unobtainable: All systems reviewed & are unremarkable except as noted in HPI and below Patient History Medical History Alcoholism Central cord syndrome at C3 level of cervical spinal cord Chronic, continuous use of opioids CML (chronic myelocytic leukemia) Insulin dependent diabetes mellitus Pancytopenia Thrombocytopenia Surgical History Status post appendectomy Family History Grandfather Diabetes mellitus Mother Cancer Social History household members: none Smoking Status: Former smoker alcohol intake: former substance use type: former substance user Smoking Status: Former smoker tobacco type: smokeless tobacco alcohol intake frequency: a few times a week Alcohol type: beer Substance Use Type: marijuana Exam Narrative Exam Narrative: GENERAL: Alert and oriented x three, male in mild distress. HEENT: Head normocephalic, atraumatic, EOMI, pupils reactive, face symmetric, moist mucous membranes NECK: Supple, full range of motion CARDIOVASCULAR: Fully tachycardic but Regular rate and rhythm without murmurs, rubs or gallops. RESPIRATORY: Breath sounds equal bilaterally, no wheezes rales or rhonchi. No tachypnea accessory muscle use. ABDOMEN: Soft, nontender. Normoactive bowel sounds all 4 quadrants. No guarding or rebound, rigidity, no mass : No CVA tenderness EXTREMITIES: Normal range of motion, no clubbing. Patient is a 50 was rib lower extremity, he does have some warmth of the lower extremity from the hogan down as well as some mild erythema. There is an area of healed skin that is fully intact. He has mild tenderness to touch. Neurovascularly intact. 2+ pulse. Normal sensation. NEUROLOGICAL: Cranial nerves II through XII grossly intact. Moving all extremities SKIN: Warm, dry, no petechiae, no rashes or lesions. Initial Vital Signs Initial Vital Signs: Vital Signs Temperature 99.9 F H 11/13/20 07:04 Pulse Rate 113 H 11/13/20 07:04 Respiratory Rate 20 11/13/20 07:04 Blood Pressure 190/81 H 11/13/20 07:04 Pulse Oximetry 99 11/13/20 07:04 Course Orders Ordered: ED Orders 11/13/20 07:13 US periph venous low extrem rt Stat 11/13/20 07:53 Complete Blood Count AUTO DIFF Stat Comprehensive Metabolic Panel Stat Lactate (Lactic Acid) Stat Partial Thromboplastin Time Stat Procalcitonin Stat Prothrombin Time INR Stat 11/13/20 08:22 Blood Culture Stat Discontinued Medications Hydromorphone HCl (Hydromorphone 0.5 Mg Inj) 0.5 mg IV NOW ONE Stop: 11/13/20 07:18 Last Admin: 11/13/20 08:09 Dose: 0.5 mg Documented by: ZULAY Hydromorphone HCl (Hydromorphone 0.5 Mg Inj) 0.5 mg IV NOW ONE Stop: 11/13/20 09:07 Last Admin: 11/13/20 09:47 Dose: 0.5 mg Documented by: ZULAY Clindamycin Phosphate (Cleocin) 900 mg in 50 mls @ 50 mls/hr IV NOW ONE Stop: 11/13/20 08:16 Last Infusion: 11/13/20 09:46 Dose: 0 mls/hr Documented by: Admin: 11/13/20 08:37 Dose: 50 mls/hr Documented by: ZULAY Ondansetron HCl (Ondansetron 4 Mg/2 Ml Inj) 4 mg IV NOW ONE Stop: 11/13/20 08:02 Last Admin: 11/13/20 08:08 Dose: 4 mg Documented by: ZULAY Vital Signs Vital signs: Vital Signs - 8 hr 11/13/20 07:04 11/13/20 07:52 11/13/20 08:00 Temperature 99.9 F H Pulse Rate 113 H 102 H 100 H Respiratory Rate 20 Blood Pressure 190/81 H 145/84 H 140/83 Pulse Oximetry 99 100 100 11/13/20 08:30 11/13/20 08:39 11/13/20 09:48 Temperature Pulse Rate 98 H 104 H Respiratory Rate Blood Pressure 121/74 147/89 H Pulse Oximetry 99 99 11/13/20 10:43 Temperature 98.1 F Pulse Rate 99 H Respiratory Rate 18 Blood Pressure 147/89 H Pulse Oximetry 100 MDM - Extremity (Nontraumatic) Lab Data Result diagrams: 11/13/20 07:53 11/13/20 07:53 Labs: Lab Results 11/13/20 11/13/20 11/13/20 Range/Units 07:53 07:53 07:53 WBC 4.6 (4.5-11.0) X10^3/uL RBC 3.16 L (4.5-5.9) X10^6/uL Hgb 10.3 L (13.5-17.5) g/dL Hct 30.3 L (41-53) % MCV 96.0 (80-100) fL MCH 32.6 (26-34) PG MCHC 34.0 (30-36) % RDW 14.0 (11.6-14.8) % Plt Count 51 L (150-400) X10^3/uL Neut % (Auto) 66.4 (50-75) % Lymph % (Auto) 24.1 L (25-40) % Lane % (Auto) 7.6 (3-14) % Eos % (Auto) 1.5 L (2-4) % Baso % (Auto) 0.4 (0-2) % Neut # (Auto) 3100 (3744-7791) /uL Lymph # (Auto) 1100 (0781-3811) /uL Lane # (Auto) 400 (0-900) /uL Eos # (Auto) 100 (0-450) /uL Baso # (Auto) 0 (0-100) /uL PT 12.3 (10.1-12.7) SECONDS INR 1.1 (0.9-1.3) APTT (26.4-36.2) SECONDS Sodium 139 (137-145) mmol/L Potassium 4.4 (3.4-5.1) mmol/L Chloride 108 H (98-107) mmol/L Carbon Dioxide 21 L (22-32) mmol/L BUN 17 (9-20) mg/dL Creatinine 1.33 H (0.66-1.25) mg/dL Estimated GFR 58.1 L (>60) mL/min BUN/Creatinine Ratio 12.8 (6-22) Glucose 153 H (70-100) mg/dL Lactate (0.7-2.1) mmol/L Calcium 8.8 (8.4-10.2) mg/dL Total Bilirubin 0.4 (0.2-1.3) mg/dL AST 34 (17-59) IU/L ALT 19 (<50) IU/L Alkaline Phosphatase 108 (38-126) U/L Total Protein 7.6 (6.3-8.2) g/dL Albumin 4.3 (3.5-5.0) g/dL Globulin 3.3 (1.7-4.1) g/dL Albumin/Globulin Ratio 1.3 (1.0-2.8) Procalcitonin 0.11 (<0.5) ng/mL 11/13/20 11/13/20 Range/Units 07:53 07:53 WBC (4.5-11.0) X10^3/uL RBC (4.5-5.9) X10^6/uL Hgb (13.5-17.5) g/dL Hct (41-53) % MCV (80-100) fL MCH (26-34) PG MCHC (30-36) % RDW (11.6-14.8) % Plt Count (150-400) X10^3/uL Neut % (Auto) (50-75) % Lymph % (Auto) (25-40) % Lane % (Auto) (3-14) % Eos % (Auto) (2-4) % Baso % (Auto) (0-2) % Neut # (Auto) (9604-4159) /uL Lymph # (Auto) (9857-4144) /uL Lane # (Auto) (0-900) /uL Eos # (Auto) (0-450) /uL Baso # (Auto) (0-100) /uL PT (10.1-12.7) SECONDS INR (0.9-1.3) APTT 38 H D (26.4-36.2) SECONDS Sodium (137-145) mmol/L Potassium (3.4-5.1) mmol/L Chloride (98-107) mmol/L Carbon Dioxide (22-32) mmol/L BUN (9-20) mg/dL Creatinine (0.66-1.25) mg/dL Estimated GFR (>60) mL/min BUN/Creatinine Ratio (6-22) Glucose (70-100) mg/dL Lactate 0.7 (0.7-2.1) mmol/L Calcium (8.4-10.2) mg/dL Total Bilirubin (0.2-1.3) mg/dL AST (17-59) IU/L ALT (<50) IU/L Alkaline Phosphatase (38-126) U/L Total Protein (6.3-8.2) g/dL Albumin (3.5-5.0) g/dL Globulin (1.7-4.1) g/dL Albumin/Globulin Ratio (1.0-2.8) Procalcitonin (<0.5) ng/mL Imaging Data US - DVT: Radiologist's Impression: [address] [id number] ReportSigned Patient: Lalo Han CMR#: [id number]: [id number]:[id number]/Sex: 45 / MDate of Service: 11/13/20Loc: EDAccession Number: [id number] Procedure: US perip venous low extrem rt Ordering Provider: Zainab Patrick D.O. PROCEDURE: US PERIP VENOUS LOW EXTREM RT INDICATIONS: EDEMA, PAIN TECHNIQUE: Real-time imaging, as well as color and pulse Doppler interrogation, were p erformed of the lower extremity deep veins from the inguinal ligament to the popliteal fossa. COMPARISON: [facility], PERIP VENOUS LOW EXTREM RT, 03/19/2020, 13:53. FINDINGS: The common femoral, femoral and popliteal veins are normally compressible, and free of intraluminal thrombus. Color and pulse Doppler demonstrate normal phasic intraluminal flow. There is normal augmentation response to distal compression maneuver. IMPRESSION: No sonographic evidence of deep venous thrombosis in the right lower extremity. Dictated by: Kevin Rubio M.D. on 11/13/2020 at 7:51 Approved by: Kevin Rubio M.D. on 11/13/2020 at 7:52 MDM Narrative Medical decision making narrative: This is a 45-year-old male comes emergency department with concern for cellulitis in his lower extremity but also does have risk factors for DVT. He does not have a clearly localized area of erythema for source for cellulitis. DVT ultrasound was obtained, labs and blood cultures were also obtained. Patient's labs are reassuring. DVT is negative. Suspect patient does have recurrence of cellulitis. He had wounds on his foot before which actually appear healed as well as the 1 that was infected on his hogan. But there is warmth erythema that is mild generalized. Patient was started on oral antibiotics. He does not appear to be septic. He was asked to contact his infectious disease physician to follow up shortly and he is agreeable with this plan. All questions answered. Return precautions discussed. Discharge Plan Departure Patient Disposition: Home Clinical Impression: Cellulitis of leg, right Instructions: DI for Cellulitis -- Adult Activity Restrictions/Additional Instructions: Call to follow up with Dr. Rene at infectious disease if this is a recurrence of your prior infection you may ultimately need IV antibiotics again. Today your labs are reassuring, your blood cultures are pending and typically take 48 hours to result. If these are positive we would recontact you. Take oral antibiotics until gone. Take oral pain medication as prescribed. This medication can make you sleepy do not drive, perform hazardous activities or make any major decisions while taking it. This medication will make you constipated please take a stool softener once to twice daily until stools are soft and regular. [facility] [place]. Return for fevers, worsening redness, swelling or pain in your lower extremity that is extending up higher, if you develop any open wounds, if you are having any new chest pain, shortness of breath, lightheadedness or passing out, p ersistent vomiting or other new or concerning symptoms. Prescriptions: New clindamycin HCl 300 mg capsule 300 mg PO Q6H Qty: 40 RF: 0 oxycodone 5 mg tablet 5 mg PO Q6H PRN (Reason: pain) Qty: 14 RF: 0 No Action (DME) BD U/F Hilda Pen Needle [id number] .Route .MEDSUPPLY Qty: 100 RF: 3 Humalog KwikPen Insulin 100 unit/mL insulin pen 1 - 12 unit subcut TIDCC Qty: 1 RF: 3 Lantus Solostar U-100 Insulin 100 unit/mL (3 mL) insulin pen 25 unit SUBCUT BID Qty: 15 RF: 3 (DME) True Metrix Glucose Test Strip strip See Dose Instructions .ROUTE .MEDSUPPLY Qty: 100 RF: 1 (DME) True Metrix Blood Glucose Meter Qty: 1 RF: 0 True Metrix test strips strip 0 strip .Route .MEDSUPPLY RF: 0 prochlorperazine maleate [Compazine] 10 mg Tablet 10 mg PO Q6H PRN (Reason: Nausea) Qty: 30 RF: 2 ondansetron 4 mg tablet,disintegrating 4 mg PO QID PRN (Reason: nausea and vomiting) Qty: 30 RF: 3 imatinib [Gleevec] 100 MG tablet 300 mg PO QPM Qty: 90 RF: 11 lorazepam 1 mg Tablet 1 mg PO BID PRN (Reason: nauseas) Qty: 60 RF: 0 Syringes 1 syr miscellaneous DIRECTED RF: 0 ondansetron 4 mg tablet,disintegrating 4 mg PO Q6H Qty: 12 RF: 0 Maalox Maximum Strength 400-400-40 mg/5 mL suspension 5 ml PO QID PRN (Reason: indigestion) Qty: 355 RF: 0 sulfamethoxazole-trimethoprim 800-160 mg tablet RF: 0 oxycodone 5 mg tablet 5 mg PO BID PRN (Reason: pain) Qty: 5 RF: 0 sulfamethoxazole-trimethoprim [Bactrim DS] 800-160 mg tablet 1 tab PO BID Qty: 20 RF: 0 cephalexin 500 mg capsule 500 mg PO TID Qty: 30 RF: 0 Bacid 1 billion cell- 250 mg Tablet 1 ea PO TIDWM Qty: 90 RF: 0 docusate sodium [DOK] 100 mg Capsule 100 mg PO BID Qty: 60 RF: 0 oxycodone 5 mg Tablet 10 mg PO Q6-12H PRN (Reason: Pain, Moderate (4-6)) Qty: 15 RF: 0 doxycycline hyclate 100 mg capsule 100 mg PO BID Qty: 20 RF: 0
--- NOTE | 2020-11-13 07:13 | DI.US.S_ITS ---
PROCEDURE: US [facility] VENOUS LOW EXTREM RT INDICATIONS: EDEMA, PAIN TECHNIQUE: Real-time imaging, as well as color and pulse Doppler interrogation, were performed of the lower extremity deep veins from the inguinal ligament to the popliteal fossa. COMPARISON: [facility], [facility] VENOUS LOW EXTREM RT, 03/19/2020, 13:53. FINDINGS: The common femoral, femoral and popliteal veins are normally compressible, and free of intraluminal thrombus. Color and pulse Doppler demonstrate normal phasic intraluminal flow. There is normal augmentation response to distal compression maneuver. IMPRESSION: No sonographic evidence of deep venous thrombosis in the right lower extremity. Dictated by: Kevin Rubio M.D. on 11/13/2020 at 7:51 Approved by: Kevin Rubio M.D. on 11/13/2020 at 7:52
[2020-11-13] MEDS: ONDANSETRON 4 MG/2 ML INJ IV (08:08)
[2020-11-13] MEDS: HYDROMORPHONE 0.5 MG INJ IV ×2 (08:09→09:47)
[2020-11-13 08:10] LABS: Add Manual Diff / Slide Review NO; Basophils Absolute Auto 0 /uL (0-100); Basophils Percent Auto 0.4 % (0-2); Eosinophils Absolute Auto 100 /uL (0-450); Eosinophils Percent Auto 1.5 % (2-4); Hematocrit 30.3 % (41-53); Hemoglobin 10.3 g/dL (13.5-17.5); Lymphocytes Absolute Auto 1100 /uL (1100-4500); Lymphocytes Percent Auto 24.1 % (25-40); Mean Corpuscular Hemoglobin 32.6 PG (26-34); Monocytes Absolute Auto 400 /uL (0-900); Monocytes Percent Auto 7.6 % (3-14); Neutrophils Absolute Auto 3100 /uL (1500-7000); Neutrophils Percent Auto 66.4 % (50-75); Platelet Count 51 X10^3/uL (150-400); Red Blood Cell Count 3.16 X10^6/uL (4.5-5.9); White Blood Cell Count 4.6 X10^3/uL (4.5-11.0)
[2020-11-13 08:11] LABS: INR 1.1 (0.9-1.3); Prothrombin Time 12.3 SECONDS (10.1-12.7)
[2020-11-13 08:16] LABS: Alanine Aminotransferase 19 IU/L (<50); Albumin 4.3 g/dL (3.5-5.0); Albumin Globulin Ratio 1.3 (1.0-2.8); Alkaline Phosphatase 108 U/L (38-126); Aspartate Aminotransferase 34 IU/L (17-59); BUN Creatinine Ratio 12.8 (6-22); Bilirubin Total 0.4 mg/dL (0.2-1.3); Blood Urea Nitrogen 17 mg/dL (9-20); Calcium 8.8 mg/dL (8.4-10.2); Carbon Dioxide 21 mmol/L (22-32); Chloride 108 mmol/L (98-107); Estimated Glomerular Filt Rate 58.1 mL/min (>60); Globulin 3.3 g/dL (1.7-4.1); Glucose 153 mg/dL (70-100); HEMOLYSIS < 15 (0-50); Potassium 4.4 mmol/L (3.4-5.1); Sodium 139 mmol/L (137-145); Total Protein 7.6 g/dL (6.3-8.2)
[2020-11-13 08:20] LABS: PTT Partial Thromboplastin Tim 38 SECONDS (26.4-36.2)
[2020-11-13 08:22] LABS: Lactate (Lactic Acid) 0.7 mmol/L (0.7-2.1)
[2020-11-13 08:33] LABS: Procalcitonin 0.11 ng/mL (<0.5)
[2020-11-13] MEDS: CLINDAMYCIN 900 MG/50 ML PIGGYBACK 50 MG IV (08:37)
== END 2020-11-13 10:45 | disposition home or self-care (01) ==
PROVIDERS: Emergency Provider Emergency Medicine
DX: L03.115 Cellulitis of right lower limb (principal)
CPT/HCPCS: 36415; 80053; 83605; 84145; 85025; 85610; 85730; 87040; 93971; 96365; 96375; 96376; 99284; J1170; J2405

== ENCOUNTER 2020-12-11 13:28 | Emergency (ER) | payer OTHER, MEDICAID, SELFPAY ==
[2020-12-11] VITALS (12 sets, daily range): BP systolic 136–181; BP diastolic 75–99; PULSE 78–95; RESP 13–36; TEMP 37.3; O2SAT 92–100
--- NOTE | 2020-12-11 14:26 | ED.FEVER ---
HPI - Fever General Chief Complaint: Fever Stated Complaint: infection in leg/raised temperature Time Seen by Provider: 12/11/20 14:26 Source: patient Mode of arrival: Ambulatory Limitations: no limitations History of Present Illness HPI Narrative: 45-year-old male comes with concern for infection in his right lower extremity. He has had pain and swelling in his right lower extremity for several weeks. Patient was here earlier in the month with concern for possible cellulitis. He has a history of CML which she is currently on oral chemotherapy for. He has had multiple wounds on his feet and has a history of osteomyelitis with chronic back pain. Patient follows regularly with Infectious Disease.. Patient was seen by myself earlier in November. He received a dose of oral antibiotics. At that time his findings were equivocal. He has not had any worsening symptoms but no significant improvement. He has not had any fevers. No new chest pain, shortness of breath, no nausea or vomiting. He notes that he has had pain that feels like a burning sensation in his leg. That leg has been more swollen than the alternate. He feels like there has been some warmth by touch in comparison but does not note significant color changes. He is allergic to penicillin. Related Data Home Medications Medication Instructions Recorded Confirmed Syringes 1 syr MISCELLANEOUS DIRECTED 11/10/17 03/08/19 True Metrix test strips 0 strip .ROUTE .MEDSUPPLY 04/06/18 03/08/19 sulfamethoxazole 800 01/20/20 mg-trimethoprim 160 mg tablet Previous Rx's Medication Instructions Recorded BD U/F Hilda Pen Needle [id number] #100 each 06/13/18 insulin lispro 100 unit/mL 1 - 12 unit SUBCUT TIDCC #1 ea 06/13/18 subcutaneous pen (Humalog KwikPen (U-100) Insulin) insulin glargine 100 unit/mL (3 25 unit SUBCUT BID #15 ml 08/02/18 mL) subcutaneous pen (Lantus Solostar U-100 Insulin) prochlorperazine maleate 10 mg 10 mg PO Q6H PRN #30 tab 10/04/18 tablet (Compazine) L.acidophilus-L.bulgar-B.bifid-S.thermoph 1 ea PO TIDWM #90 tab 10/24/18 1 billion cell-250 mg tablet (Bacid) docusate sodium 100 mg capsule 100 mg PO BID #60 cap 10/24/18 (DOK) oxycodone 5 mg tablet 10 mg PO Q6-12H PRN #15 tab 10/24/18 ondansetron 4 mg disintegrating 4 mg PO QID PRN #30 tab 11/22/18 tablet True Metrix Glucose Test Strip #100 each NS 11/29/18 (blood sugar diagnostic) True Metrix Blood Glucose Meter #1 ea 12/09/18 aluminum-mag hydroxide-simethicone 5 ml PO QID PRN #355 ml 04/23/19 400 mg-400 mg-40 mg/5 mL oral susp (Maalox Maximum Strength) ondansetron 4 mg disintegrating 4 mg PO Q6H #12 tab 04/23/19 tablet imatinib 100 mg tablet (Gleevec) 300 mg PO QPM #90 tab 08/17/19 lorazepam 1 mg tablet 1 mg PO BID PRN #60 tab 09/18/19 oxycodone 5 mg tablet 5 mg PO BID PRN #5 tab 01/20/20 cephalexin 500 mg capsule 500 mg PO TID #30 cap 03/19/20 sulfamethoxazole 800 1 tab PO BID #20 tab 03/19/20 mg-trimethoprim 160 mg tablet (Bactrim DS) doxycycline hyclate 100 mg capsule 100 mg PO BID #20 cap 04/08/20 clindamycin HCl 300 mg capsule 300 mg PO Q6H #40 cap 11/13/20 oxycodone 5 mg tablet 5 mg PO Q6H PRN #14 tab 11/13/20 oxycodone 5 mg tablet 5 mg PO Q6H PRN #5 tab 12/11/20 Allergies Allergy/AdvReac Type Severity Reaction Status Date / Time Penicillins [PENICILLINS] Allergy Severe Tongue Verified 10/21/20 06:28 swelling, hives morphine Allergy Mild Hives Verified 10/21/20 08:34 adhesive Allergy Unknown PLASTIC Verified 10/21/20 06:28 TAPE latex [LATEX] Allergy Unknown Verified 10/21/20 06:28 Review of Systems Review of Systems ROS Unobtainable: All systems reviewed & are unremarkable except as noted in HPI and below Patient History Medical History Alcoholism Central cord syndrome at C3 level of cervical spinal cord Chronic, continuous use of opioids CML (chronic myelocytic leukemia) Insulin dependent diabetes mellitus Pancytopenia Thrombocytopenia Surgical History Status post appendectomy Family History Grandfather Diabetes mellitus Mother Cancer Social History household members: none Smoking Status: Former smoker alcohol intake: former substance use type: former substance user Smoking Status: Former smoker tobacco type: smokeless tobacco alcohol intake frequency: a few times a week Alcohol type: beer Substance Use Type: marijuana Exam Narrative Exam Narrative: GENERAL: Alert and oriented x three, male in mild distress. HEENT: Head normocephalic, atraumatic, EOMI, pupils reactive, face symmetric, moist mucous membranes NECK: Supple, full range of motion CARDIOVASCULAR: Regular rate and rhythm without murmurs, rubs or gallops. RESPIRATORY: Breath sounds equal bilaterally, no wheezes rales or rhonchi. ABDOMEN: Soft, nontender. Normoactive bowel sounds all 4 quadrants. No guarding or rebound, rigidity, no mass : No CVA tenderness EXTREMITIES: Normal range of motion, no clubbing. Positive right lower extremity swelling, some mild warmth right person left. Some mild erythema. Patient has a healed on the anterior hogan. He has healing wound on the 1st metatarsal joint on the lateral edge which is scabbed but appears not to be open, with no drainage, warmth or erythema.. Neurovascularly intact. Patient's left leg does appear swollen in comparison to the right. It is soft. Mildly tender to touch. I have difficulty appreciating warmth in the right comparison to the left. Patient does not have any obvious skin color changes noted. NEUROLOGICAL: Cranial nerves II through XII grossly intact. Moving all extremities SKIN: Warm, dry, no petechiae, no rashes or lesions. Patient has a wound on the bottom of the 1st toe of the left foot which appears to be healing. And wound on the heel of the left foot. Initial Vital Signs Initial Vital Signs: Vital Signs Temperature 99.2 F 12/11/20 13:55 Pulse Rate 95 H 12/11/20 13:55 Respiratory Rate 18 12/11/20 13:55 Blood Pressure 177/91 H 12/11/20 13:55 Pulse Oximetry 99 12/11/20 13:55 Course Orders Ordered: ED Orders 12/11/20 14:27 RT Consult Eval and Treat Now 12/11/20 14:35 XR foot RT min 3V Stat 12/11/20 14:36 US periph venous low extrem rt Stat 12/11/20 15:15 COVID19 - ADMIT ([facility] [employer] swab/PCR) Stat 12/11/20 15:18 C-Reactive Protein Quant Stat Complete Blood Count AUTO DIFF Stat Comprehensive Metabolic Panel Stat Erythrocyte Sedimentation Rate Stat Lactate (Lactic Acid) Stat Lipase Stat Procalcitonin Stat 12/11/20 15:24 Blood Culture Stat Discontinued Medications Hydromorphone HCl (Hydromorphone 0.5 Mg Inj) 0.5 mg IV NOW ONE Stop: 12/11/20 16:20 Last Admin: 12/11/20 17:12 Dose: 0.5 mg Documented by: ALDAIR Sodium Chloride (Normal Saline 0.9%) 1,000 mls @ 1,000 mls/hr IV BOLUS ONE Stop: 12/11/20 15:26 Last Infusion: 12/11/20 16:30 Dose: 0 mls/hr Documented by: Admin: 12/11/20 15:28 Dose: 1,000 mls/hr Documented by: SUSAN Vancomycin HCl/Dextrose (Vancomycin) 2,000 mg in 400 mls @ 200 mls/hr IV NOW ONE Stop: 12/11/20 16:35 Last Admin: 12/11/20 15:29 Dose: 200 mls/hr Documented by: SUSAN Consultations Consultation #1: Attempted to contact infectious disease at [facility] without success. Vital Signs Vital signs: Vital Signs - 8 hr 12/11/20 13:55 12/11/20 14:54 12/11/20 15:00 Temperature 99.2 F Pulse Rate 95 H 92 H Respiratory Rate 18 24 Blood Pressure 177/91 H 160/90 H Pulse Oximetry 99 92 100 12/11/20 15:30 12/11/20 16:00 12/11/20 16:30 Temperature Pulse Rate 90 93 H 80 Respiratory Rate 24 22 13 Blood Pressure 157/88 H 181/84 H 136/79 Pulse Oximetry 100 99 98 12/11/20 17:00 12/11/20 17:30 12/11/20 18:00 Temperature Pulse Rate 81 92 H 78 Respiratory Rate 13 36 H 14 Blood Pressure 141/75 H 168/99 H 139/81 Pulse Oximetry 98 99 99 12/11/20 18:30 Temperature Pulse Rate 83 Respiratory Rate 18 Blood Pressure 147/94 H Pulse Oximetry 100 MDM - Fever Lab Data Result diagrams: 12/11/20 15:18 12/11/20 15:18 Labs: Lab Results 12/11/20 12/11/20 12/11/20 Range/Units 15:15 15:18 15:18 WBC 4.0 L (4.5-11.0) X10^3/uL RBC 2.76 L (4.5-5.9) X10^6/uL Hgb 8.9 L (13.5-17.5) g/dL Hct 26.4 L (41-53) % MCV 95.5 (80-100) fL MCH 32.4 (26-34) PG MCHC 33.9 (30-36) % RDW 14.5 (11.6-14.8) % Plt Count 79 L (150-400) X10^3/uL Neut % (Auto) 64.9 (50-75) % Lymph % (Auto) 25.1 (25-40) % [place] % (Auto) 8.3 (3-14) % Eos % (Auto) 1.4 L (2-4) % Baso % (Auto) 0.3 (0-2) % Neut # (Auto) 2600 (0669-1044) /uL Lymph # (Auto) 1000 L (3775-1658) /uL [place] # (Auto) 300 (0-900) /uL Eos # (Auto) 100 (0-450) /uL Baso # (Auto) 0 (0-100) /uL ESR (0-15) MM/HR Sodium 141 (137-145) mmol/L Potassium 5.3 H (3.4-5.1) mmol/L Chloride 113 H (98-107) mmol/L Carbon Dioxide 19 L (22-32) mmol/L BUN 15 (9-20) mg/dL Creatinine 1.33 H (0.66-1.25) mg/dL Estimated GFR 58.1 L (>60) mL/min BUN/Creatinine Ratio 11.3 (6-22) Glucose 104 H (70-100) mg/dL Lactate (0.7-2.1) mmol/L Calcium 8.4 (8.4-10.2) mg/dL Total Bilirubin 0.3 (0.2-1.3) mg/dL AST 41 (17-59) IU/L ALT 24 (<50) IU/L Alkaline Phosphatase 100 (38-126) U/L C-Reactive Protein (<1.0) mg/dL Total Protein 7.4 (6.3-8.2) g/dL Albumin 4.2 (3.5-5.0) g/dL Globulin 3.2 (1.7-4.1) g/dL Albumin/Globulin Ratio 1.3 (1.0-2.8) Lipase < 10 L (23-300) U/L Procalcitonin 0.08 (<0.5) ng/mL SARS-CoV-2 (PCR) Negative (Negative) 12/11/20 12/11/20 12/11/20 Range/Units 15:18 15:18 15:18 WBC (4.5-11.0) X10^3/uL RBC (4.5-5.9) X10^6/uL Hgb (13.5-17.5) g/dL Hct (41-53) % MCV (80-100) fL MCH (26-34) PG MCHC (30-36) % RDW (11.6-14.8) % Plt Count (150-400) X10^3/uL Neut % (Auto) (50-75) % Lymph % (Auto) (25-40) % [place]arro % (Auto) (3-14) % Eos % (Auto) (2-4) % Baso % (Auto) (0-2) % Neut # (Auto) (0823-9940) /uL Lymph # (Auto) (6462-8086) /uL [place]arro # (Auto) (0-900) /uL Eos # (Auto) (0-450) /uL Baso # (Auto) (0-100) /uL ESR 70 H (0-15) MM/HR Sodium (137-145) mmol/L Potassium (3.4-5.1) mmol/L Chloride (98-107) mmol/L Carbon Dioxide (22-32) mmol/L BUN (9-20) mg/dL Creatinine (0.66-1.25) mg/dL Estimated GFR (>60) mL/min BUN/Creatinine Ratio (6-22) Glucose (70-100) mg/dL Lactate 0.8 (0.7-2.1) mmol/L Calcium (8.4-10.2) mg/dL Total Bilirubin (0.2-1.3) mg/dL AST (17-59) IU/L ALT (<50) IU/L Alkaline Phosphatase (38-126) U/L C-Reactive Protein 0.7 (<1.0) mg/dL Total Protein (6.3-8.2) g/dL Albumin (3.5-5.0) g/dL Globulin (1.7-4.1) g/dL Albumin/Globulin Ratio (1.0-2.8) Lipase (23-300) U/L Procalcitonin (<0.5) ng/mL SARS-CoV-2 (PCR) (Negative) Urine Dip Bedside Urine Glucose Negative Bedside Urine Bilirubin - Negative Bedside Urine Ketone - Negative Urine Specific [place] 1.015 Bedside Urine Occult Blood - Negative Bedside Urine pH 6.0 Bedside Urine Protein - Negative Bedside Urine Urobilinogen - Negative Bedside Urine Nitrite - Negative Bedside Urine Leukocytes - Negative Esterase Imaging Data US - DVT: Radiologist's Impression: [address] [id number] ReportSigned Patient: Lalo Han CMR#: [id number]: [id number]:[id number]/Sex: 45 / MDate of Service: 12/11/20Loc: EDAccession Number: [id number] Procedure: US periph venous low extrem rt Ordering Provider: Zainab Patrick D.O. PROCEDURE: US PERIPH VENOUS LOW EXTREM RT INDICATIONS: WARM, RED, SWOLLEN TECHNIQUE: Real-time imaging, as well as color and pulse Doppler interrogation, were performed of the lower extremity deep veins from the inguinal ligament to the popliteal fossa. COMPARISON: None. FINDINGS: The common femoral, femoral and popliteal veins are normally compressible, and free of intraluminal thrombus. Color and pulse Doppler demonstrate normal phasic intraluminal flow. There is normal augmentation response to distal compression maneuver. IMPRESSION: No evidence of deep vein thrombosis involving the left lower extremity. Dictated by: Sharita Lepe MD, PhD on 12/11/2020 at 15:01 Approved by: Sharita Lepe MD, PhD on 12/11/2020 at 15:01 Extremity x-ray #1: Radiologist's Impression: no acute fx or changes consistent with osteomyelitis. MDM Narrative Medical decision making narrative: This is a 45-year-old male with prior osteomyelitis in his back with wounds on bilateral lower extremities that had pad concern for osteomyelitis in the past as well. Patient is concerned about infection in his right lower extremity. He has appreciated some increased pain, he has had swelling that is been present for several weeks. Patient has been afebrile but feels like that leg has intermittently been warmer to touch. He has not appreciated significant skin changes. Patient does follow with Infectious Disease. DVT was negative, x-ray of the foot 3 does have a wound of 1st metatarsal joint is negative. He is mildly tender to touch. Has a elevated ESR but negative CRP with a negative procalcitonin. And CBC which seems consistent with his history of CML. Blood cultures were obtained. Patient is afebrile and department without any signs of sepsis. Patient initially received 1 dose of vancomycin. After discussion at this time I would defer antibiotic initiation to infectious disease. We did attempt to contact them but without success. Patient feels comfortable to contact them 1st thing in the morning he states they are usually quite responsive for recommendations about next steps. Patient was also provided with copy of his labs to share with his infectious disease team. Discharge Plan Departure Patient Disposition: Home Clinical Impression: Leg pain, right Activity Restrictions/Additional Instructions: Call your infectious disease doctor tomorrow morning to set up close follow-up for recheck. Your labs are included so that you can share these numbers today and help to decide if you should start on antibiotics. Take pain medication as prescribed. Prescription sent to [facility]. Your blood cultures are pending. Your ESR is elevated but your CRP is normal with a negative procalcitonin. Your x-ray imaging and DVT ultrasound are negative. Please return for fevers, new or worsening swelling, redness or other changes to your lower extremity. New numbness, tingling or weakness, new chest pain, shortness of breath or other new or concerning symptoms. Prescriptions: New oxycodone 5 mg tablet 5 mg PO Q6H PRN (Reason: pain) Qty: 5 RF: 0 No Action (DME) BD U/F Hilda Pen Needle [id number] 0 .Route .MEDSUPPLY Qty: 100 RF: 3 Humalog KwikPen Insulin 100 unit/mL insulin pen 1 - 12 unit subcut TIDCC Qty: 1 RF: 3 Lantus Solostar U-100 Insulin 100 unit/mL (3 mL) insulin pen 25 unit SUBCUT BID Qty: 15 RF: 3 (DME) True Metrix Glucose Test Strip strip See Dose Instructions .ROUTE .MEDSUPPLY Qty: 100 RF: 1 (DME) True Metrix Blood Glucose Meter Qty: 1 RF: 0 True Metrix test strips strip 0 strip .Route .MEDSUPPLY RF: 0 prochlorperazine maleate [Compazine] 10 mg Tablet 10 mg PO Q6H PRN (Reason: Nausea) Qty: 30 RF: 2 ondansetron 4 mg tablet,disintegrating 4 mg PO QID PRN (Reason: nausea and vomiting) Qty: 30 RF: 3 imatinib [Gleevec] 100 MG tablet 300 mg PO QPM Qty: 90 RF: 11 lorazepam 1 mg Tablet 1 mg PO BID PRN (Reason: nauseas) Qty: 60 RF: 0 Syringes 1 syr miscellaneous DIRECTED RF: 0 ondansetron 4 mg tablet,disintegrating 4 mg PO Q6H Qty: 12 RF: 0 Maalox Maximum Strength 400-400-40 mg/5 mL suspension 5 ml PO QID PRN (Reason: indigestion) Qty: 355 RF: 0 sulfamethoxazole-trimethoprim 800-160 mg tablet RF: 0 oxycodone 5 mg tablet 5 mg PO BID PRN (Reason: pain) Qty: 5 RF: 0 sulfamethoxazole-trimethoprim [Bactrim DS] 800-160 mg tablet 1 tab PO BID Qty: 20 RF: 0 cephalexin 500 mg capsule 500 mg PO TID Qty: 30 RF: 0 Bacid 1 billion cell- 250 mg Tablet 1 ea PO TIDWM Qty: 90 RF: 0 docusate sodium [DOK] 100 mg Capsule 100 mg PO BID Qty: 60 RF: 0 oxycodone 5 mg Tablet 10 mg PO Q6-12H PRN (Reason: Pain, Moderate (4-6)) Qty: 15 RF: 0 doxycycline hyclate 100 mg capsule 100 mg PO BID Qty: 20 RF: 0 clindamycin HCl 300 mg capsule 300 mg PO Q6H Qty: 40 RF: 0 oxycodone 5 mg tablet 5 mg PO Q6H PRN (Reason: pain) Qty: 14 RF: 0 Referrals: Vania Hernandez MD [Non-Staff] -
--- NOTE | 2020-12-11 14:35 | DI.RAD.S_ITS ---
PROCEDURE: XR FOOT LT MIN 3V INDICATIONS: suspected sepsis TECHNIQUE: 3 views of the foot were acquired. COMPARISON: [facility], CR, XR FOOT LT 2V, 03/23/2020, 6:34. FINDINGS: Bones: No fractures or dislocations. No suspicious bony lesions. Enchondroma versus chronic bone infarct in distal tibia which is stable compared to prior examination. Plantar calcaneal bone spur. No periosteal reaction. No osseous erosive changes. Soft tissues: No tibiotalar joint effusion. Achilles tendon appears normal. No soft tissue gas. IMPRESSION: No jl evidence of osteomyelitis. Plain film radiographs can be insensitive to osteomyelitis during the initial 15 days of the disease process. If there is clinical concern for osteomyelitis, then three-phase nuclear medicine bone scan or MRI should be considered for further evaluation. Dictated by: Sharita Lepe MD, PhD on 12/11/2020 at 14:47 Approved by: Sharita Lepe MD, PhD on 12/11/2020 at 14:50
--- NOTE | 2020-12-11 14:36 | DI.US.S_ITS ---
PROCEDURE: US PERIPH VENOUS LOW EXTREM RT INDICATIONS: WARM, RED, SWOLLEN TECHNIQUE: Real-time imaging, as well as color and pulse Doppler interrogation, were performed of the lower extremity deep veins from the inguinal ligament to the popliteal fossa. COMPARISON: None. FINDINGS: The common femoral, femoral and popliteal veins are normally compressible, and free of intraluminal thrombus. Color and pulse Doppler demonstrate normal phasic intraluminal flow. There is normal augmentation response to distal compression maneuver. IMPRESSION: No evidence of deep vein thrombosis involving the left lower extremity. Dictated by: Sharita Lepe MD, PhD on 12/11/2020 at 15:01 Approved by: Sharita Lepe MD, PhD on 12/11/2020 at 15:01
[2020-12-11 15:22] LABS: Add Manual Diff / Slide Review NO; Basophils Absolute Auto 0 /uL (0-100); Basophils Percent Auto 0.3 % (0-2); Eosinophils Absolute Auto 100 /uL (0-450); Eosinophils Percent Auto 1.4 % (2-4); Hematocrit 26.4 % (41-53); Hemoglobin 8.9 g/dL (13.5-17.5); Lymphocytes Absolute Auto 1000 /uL (1100-4500); Lymphocytes Percent Auto 25.1 % (25-40); Mean Corpuscular HGB Conc 33.9 % (30-36); Mean Corpuscular Hemoglobin 32.4 PG (26-34); Mean Corpuscular Volume 95.5 fL (80-100); Monocytes Absolute Auto 300 /uL (0-900); Monocytes Percent Auto 8.3 % (3-14); Neutrophils Absolute Auto 2600 /uL (1500-7000); Neutrophils Percent Auto 64.9 % (50-75); Platelet Count 79 X10^3/uL (150-400); Red Blood Cell Count 2.76 X10^6/uL (4.5-5.9); Red Cell Distribution Width 14.5 % (11.6-14.8)
[2020-12-11] MEDS: SODIUM CHLORIDE 0.9% 1,000 ML 1000 ML IV (15:28)
[2020-12-11] MEDS: VANCOMYCIN 2,000 MG/400 ML PIGGYBACK 200 MG IV (15:29)
[2020-12-11 15:34] LABS: Alanine Aminotransferase 24 IU/L (<50); Albumin 4.2 g/dL (3.5-5.0); Albumin Globulin Ratio 1.3 (1.0-2.8); Alkaline Phosphatase 100 U/L (38-126); Aspartate Aminotransferase 41 IU/L (17-59); BUN Creatinine Ratio 11.3 (6-22); Bilirubin Total 0.3 mg/dL (0.2-1.3); Blood Urea Nitrogen 15 mg/dL (9-20); Calcium 8.4 mg/dL (8.4-10.2); Carbon Dioxide 19 mmol/L (22-32); Chloride 113 mmol/L (98-107); Estimated Glomerular Filt Rate 58.1 mL/min (>60); Globulin 3.2 g/dL (1.7-4.1); Glucose 104 mg/dL (70-100); HEMOLYSIS < 15 (0-50); Lactate (Lactic Acid) 0.8 mmol/L (0.7-2.1); Potassium 5.3 mmol/L (3.4-5.1); Sodium 141 mmol/L (137-145); Total Protein 7.4 g/dL (6.3-8.2)
[2020-12-11 15:35] LABS: Lipase < 10 U/L (23-300)
[2020-12-11 15:51] LABS: Procalcitonin 0.08 ng/mL (<0.5)
[2020-12-11 16:06] LABS: Erythrocyte Sedimentation Rate 70 MM/HR (0-15)
[2020-12-11 16:39] LABS: COVID19 - ADMIT (NP swab/PCR) Negative (Negative)
[2020-12-11] MEDS: HYDROMORPHONE 0.5 MG INJ IV (17:12)
[2020-12-11 17:48] LABS: C-Reactive Protein Quant 0.7 mg/dL (<1.0)
== END 2020-12-11 19:16 | disposition home or self-care (01) ==
PROVIDERS: Emergency Provider Emergency Medicine
DX: M79.604 Pain in right leg (principal); M79.89 Other specified soft tissue disorders; Z20.822 Contact with and (suspected) exposure to COVID-19
CPT/HCPCS: 36415; 73630; 80053; 81003; 83605; 83690; 84145; 85025; 85651; 86140; 87040; 87635; 93971; 96365; 96366; 96375; 99284; C9803; J1170

== ENCOUNTER → 2021-05-09 10:22 | Outpatient (CLI) | payer OTHER, MEDICAID, SELFPAY ==
[2021-05-09 11:02] LABS: Add Manual Diff / Slide Review NO; Basophils Absolute Auto 0 /uL (0-100); Basophils Percent Auto 0.4 % (0-2); Eosinophils Absolute Auto 100 /uL (0-450); Eosinophils Percent Auto 2.1 % (2-4); Hemoglobin 11.3 g/dL (13.5-17.5); Lymphocytes Absolute Auto 800 /uL (1100-4500); Lymphocytes Percent Auto 14.1 % (25-40); Mean Corpuscular HGB Conc 33.4 % (30-36); Mean Corpuscular Hemoglobin 30.7 PG (26-34); Monocytes Absolute Auto 400 /uL (0-900); Monocytes Percent Auto 7.1 % (3-14); Neutrophils Absolute Auto 4300 /uL (1500-7000); Neutrophils Percent Auto 76.3 % (50-75); Platelet Count 107 X10^3/uL (150-400); Red Blood Cell Count 3.69 X10^6/uL (4.5-5.9); Red Cell Distribution Width 13.3 % (11.6-14.8); White Blood Cell Count 5.6 X10^3/uL (4.5-11.0)
[2021-05-09 11:14] LABS: Alanine Aminotransferase 12 IU/L (<50); Albumin 4.2 g/dL (3.5-5.0); Albumin Globulin Ratio 1.2 (1.0-2.8); Alkaline Phosphatase 105 U/L (38-126); Aspartate Aminotransferase 23 IU/L (17-59); BUN Creatinine Ratio 10.9 (6-22); Bilirubin Total 0.5 mg/dL (0.2-1.3); Blood Urea Nitrogen 13 mg/dL (9-20); Calcium 8.8 mg/dL (8.4-10.2); Carbon Dioxide 23 mmol/L (22-32); Chloride 108 mmol/L (98-107); Estimated Glomerular Filt Rate > 60.0 mL/min (>60); Globulin 3.4 g/dL (1.7-4.1); Glucose 146 mg/dL (70-100); HEMOLYSIS < 15 (0-50); Potassium 4.5 mmol/L (3.4-5.1); Sodium 140 mmol/L (137-145); Total Protein 7.6 g/dL (6.3-8.2)
[2021-05-18 12:18] LABS: Interpretation Positive (.); e13a2(b2a2) transcript 17.3542 % (.)
== END ==
PROVIDERS: Referring Provider Internal Medicine Hematology & Oncology; Visit Provider Internal Medicine Hematology & Oncology
DX: C92.10 Chronic myeloid leukemia, BCR/ABL-positive, not having achieved remission (principal)
CPT/HCPCS: 36415; 80053; 81206; 81207; 85025

== ENCOUNTER → 2021-07-18 10:24 | Outpatient (CLI) | payer OTHER, MEDICAID, SELFPAY | PROVIDERS: Referring Provider Podiatrist; Visit Provider Nurse Practitioner Family | DX: E11.621 Type 2 diabetes mellitus with foot ulcer (principal); L97.412 Non-pressure chronic ulcer of right heel and midfoot with fat layer exposed; L97.522 Non-pressure chronic ulcer of other part of left foot with fat layer exposed; L97.422 Non-pressure chronic ulcer of left heel and midfoot with fat layer exposed; L08.9 Local infection of the skin and subcutaneous tissue, unspecified; L84 Corns and callosities; R60.0 Localized edema; C95.91 Leukemia, unspecified, in remission; Z79.4 Long term (current) use of insulin | CPT/HCPCS: 11042; 87070; 87075; 87077; 87147; 87186; 87205; 99214 ==

== ENCOUNTER → 2021-07-22 09:15 | Outpatient (CLI) | payer OTHER, MEDICAID, SELFPAY ==
--- NOTE | 2021-07-22 09:39 | DI.RAD.S_ITS ---
PROCEDURE: XR FOOT LT MIN 3V INDICATIONS: Eval for osteomyelitis TECHNIQUE: 3 views of the foot were acquired. COMPARISON: None. FINDINGS: Bones: No fractures or dislocations. No suspicious bony lesions. Large dorsal calcaneal bone spur. No osseous erosions. No periosteal reaction. Soft tissues: No tibiotalar joint effusion. Achilles tendon appears normal. No soft tissue gas. Soft tissue swelling noted adjacent to the 5th MTP joint. IMPRESSION: No jl evidence of osteomyelitis. Plain film radiographs can be insensitive to osteomyelitis during the initial 15 days of the disease process. If there is clinical concern for osteomyelitis, then three-phase nuclear medicine bone scan or MRI should be considered for further evaluation. Dictated by: Sharita Lepe MD, PhD on 07/22/2021 at 15:02 Approved by: Sharita Lepe MD, PhD on 07/22/2021 at 15:03
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
[2021-07-22 12:22] LABS: Add Manual Diff / Slide Review NO; Basophils Absolute Auto 0 /uL (0-100); Basophils Percent Auto 0.2 % (0-2); Eosinophils Absolute Auto 100 /uL (0-450); Hematocrit 36.2 % (41-53); Hemoglobin 11.9 g/dL (13.5-17.5); Lymphocytes Absolute Auto 900 /uL (1100-4500); Lymphocytes Percent Auto 15.4 % (25-40); Mean Corpuscular HGB Conc 32.9 % (30-36); Mean Corpuscular Hemoglobin 29.4 PG (26-34); Mean Corpuscular Volume 89.3 fL (80-100); Monocytes Absolute Auto 400 /uL (0-900); Monocytes Percent Auto 6.1 % (3-14); Neutrophils Absolute Auto 4700 /uL (1500-7000); Neutrophils Percent Auto 77.3 % (50-75); Platelet Count 135 X10^3/uL (150-400); Red Blood Cell Count 4.06 X10^6/uL (4.5-5.9); Red Cell Distribution Width 14.7 % (11.6-14.8); White Blood Cell Count 6.1 X10^3/uL (4.5-11.0)
[2021-07-22 12:29] LABS: Hemoglobin A1C% w Est Avg Glu 5.8 % (4.0-6.0)
[2021-07-22 12:58] LABS: Alanine Aminotransferase 16 IU/L (<50); Albumin 3.9 g/dL (3.5-5.0); Albumin Globulin Ratio 1.1 (1.0-2.8); Alkaline Phosphatase 135 U/L (38-126); Aspartate Aminotransferase 23 IU/L (17-59); BUN Creatinine Ratio 17.8 (6-22); Bilirubin Total 0.6 mg/dL (0.2-1.3); Blood Urea Nitrogen 21 mg/dL (9-20); C-Reactive Protein Quant < 0.5 mg/dL (<1.0); Calcium 8.2 mg/dL (8.4-10.2); Carbon Dioxide 21 mmol/L (22-32); Chloride 109 mmol/L (98-107); Estimated Glomerular Filt Rate > 60.0 mL/min (>60); Globulin 3.5 g/dL (1.7-4.1); Glucose 117 mg/dL (70-100); HEMOLYSIS < 15 (0-50); Potassium 4.3 mmol/L (3.4-5.1); Sodium 143 mmol/L (137-145); Total Protein 7.4 g/dL (6.3-8.2)
[2021-07-22 13:02] LABS: Erythrocyte Sedimentation Rate 39 MM/HR (0-15)
[2021-07-22 13:03] LABS: Prealbumin 15.5 mg/dL (17.6-36.0)
[2021-07-31 04:43] LABS: Interpretation Positive (.); e13a2(b2a2) transcript Comment: % (.)
== END ==
LOC: LAB 09:20 → RAD 09:35
PROVIDERS: Referring Provider Internal Medicine Hematology & Oncology; Visit Provider Internal Medicine Hematology & Oncology
DX: C92.10 Chronic myeloid leukemia, BCR/ABL-positive, not having achieved remission (principal); E11.621 Type 2 diabetes mellitus with foot ulcer; L97.516 Non-pressure chronic ulcer of other part of right foot with bone involvement without evidence of necrosis; L97.522 Non-pressure chronic ulcer of other part of left foot with fat layer exposed; L08.9 Local infection of the skin and subcutaneous tissue, unspecified; S93.124A Dislocation of metatarsophalangeal joint of right lesser toe(s), initial encounter
CPT/HCPCS: 11042; 36415; 73630; 80053; 81206; 81207; 83036; 84134; 85025; 85651; 86140

== ENCOUNTER → 2021-08-01 12:46 | Outpatient (CLI) | payer OTHER, MEDICAID, SELFPAY | PROVIDERS: Referring Provider Podiatrist; Visit Provider Family Medicine | DX: E11.621 Type 2 diabetes mellitus with foot ulcer (principal); L97.512 Non-pressure chronic ulcer of other part of right foot with fat layer exposed; L97.522 Non-pressure chronic ulcer of other part of left foot with fat layer exposed; L84 Corns and callosities | CPT/HCPCS: 11042; 97597 ==

== ENCOUNTER → 2021-08-08 09:27 | Outpatient (CLI) | payer OTHER, MEDICAID, SELFPAY | PROVIDERS: Referring Provider Podiatrist; Visit Provider Nurse Practitioner Family | DX: E11.621 Type 2 diabetes mellitus with foot ulcer (principal); L97.412 Non-pressure chronic ulcer of right heel and midfoot with fat layer exposed; L97.522 Non-pressure chronic ulcer of other part of left foot with fat layer exposed; L97.422 Non-pressure chronic ulcer of left heel and midfoot with fat layer exposed; L84 Corns and callosities; L08.9 Local infection of the skin and subcutaneous tissue, unspecified; E11.40 Type 2 diabetes mellitus with diabetic neuropathy, unspecified; C95.91 Leukemia, unspecified, in remission; Z79.4 Long term (current) use of insulin | CPT/HCPCS: 11042; 87070; 87075; 87077; 87147; 87186; 87205; 97597; 99213 ==

== ENCOUNTER 2021-08-11 12:35 | Emergency (ER) | payer OTHER, MEDICAID, SELFPAY ==
[2021-08-11 13:17] VITALS: BP 145/89; PULSE 104; RESP 18; TEMP 36.6; O2SAT 100
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
[2021-08-11 16:18] VITALS: BP 180/106; PULSE 93; O2SAT 97
[2021-08-11 16:19] VITALS: BP 180/106; PULSE 88; O2SAT 98
[2021-08-11 17:36] VITALS: PULSE 88; O2SAT 99
[2021-08-11 17:37] VITALS: BP 174/101; PULSE 85; O2SAT 99
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
[2021-08-11] MEDS: HYDROMORPHONE 2 MG INJ 1 MG SUBCUT (18:49)
== END 2021-08-11 19:08 | disposition home or self-care (01) ==
PROVIDERS: Emergency Provider Emergency Medicine
DX: S16.1XXA Strain of muscle, fascia and tendon at neck level, initial encounter (principal); Z87.891 Personal history of nicotine dependence; Z88.5 Allergy status to narcotic agent; V29.9XXA Motorcycle rider (driver) (passenger) injured in unspecified traffic accident, initial encounter
CPT/HCPCS: 70450; 71045; 72125; 96372; 99283; 99284; J1170

== ENCOUNTER → 2021-08-22 11:14 | Outpatient (CLI) | payer OTHER, MEDICAID, SELFPAY | PROVIDERS: Visit Provider Nurse Practitioner Family | DX: E11.621 Type 2 diabetes mellitus with foot ulcer (principal); L97.412 Non-pressure chronic ulcer of right heel and midfoot with fat layer exposed; L84 Corns and callosities; L08.9 Local infection of the skin and subcutaneous tissue, unspecified; E11.40 Type 2 diabetes mellitus with diabetic neuropathy, unspecified; C95.91 Leukemia, unspecified, in remission; Z79.4 Long term (current) use of insulin; Z87.39 Personal history of other diseases of the musculoskeletal system and connective tissue | CPT/HCPCS: 11042; 99213 ==

== ENCOUNTER → 2021-08-29 09:45 | Outpatient (CLI) | payer OTHER, MEDICAID, SELFPAY | PROVIDERS: Visit Provider Nurse Practitioner Family | DX: E11.621 Type 2 diabetes mellitus with foot ulcer (principal); L97.512 Non-pressure chronic ulcer of other part of right foot with fat layer exposed; L84 Corns and callosities; E11.40 Type 2 diabetes mellitus with diabetic neuropathy, unspecified; C92.11 Chronic myeloid leukemia, BCR/ABL-positive, in remission; Z79.4 Long term (current) use of insulin; Z87.39 Personal history of other diseases of the musculoskeletal system and connective tissue | CPT/HCPCS: 11042 ==

== ENCOUNTER → 2021-09-12 12:01 | Outpatient (CLI) | payer OTHER, MEDICAID, SELFPAY | PROVIDERS: Visit Provider Nurse Practitioner Family | DX: E11.621 Type 2 diabetes mellitus with foot ulcer (principal); L97.512 Non-pressure chronic ulcer of other part of right foot with fat layer exposed; L84 Corns and callosities; E11.40 Type 2 diabetes mellitus with diabetic neuropathy, unspecified; C92.11 Chronic myeloid leukemia, BCR/ABL-positive, in remission; Z79.4 Long term (current) use of insulin | CPT/HCPCS: 11042; 99213 ==

== ENCOUNTER → 2021-09-26 10:48 | Outpatient (CLI) | payer OTHER, MEDICAID, SELFPAY | PROVIDERS: Referring Provider Podiatrist; Visit Provider Nurse Practitioner Family | DX: E11.621 Type 2 diabetes mellitus with foot ulcer (principal); L97.412 Non-pressure chronic ulcer of right heel and midfoot with fat layer exposed; L84 Corns and callosities; E11.40 Type 2 diabetes mellitus with diabetic neuropathy, unspecified; C92.11 Chronic myeloid leukemia, BCR/ABL-positive, in remission; Z79.4 Long term (current) use of insulin; Z87.39 Personal history of other diseases of the musculoskeletal system and connective tissue | CPT/HCPCS: 11042; 99213 ==

== ENCOUNTER → 2021-10-03 10:44 | Outpatient (CLI) | payer OTHER, MEDICAID, SELFPAY | PROVIDERS: Referring Provider Podiatrist; Visit Provider Nurse Practitioner Family | DX: E11.621 Type 2 diabetes mellitus with foot ulcer (principal); L97.412 Non-pressure chronic ulcer of right heel and midfoot with fat layer exposed; E11.40 Type 2 diabetes mellitus with diabetic neuropathy, unspecified; C92.11 Chronic myeloid leukemia, BCR/ABL-positive, in remission; Z79.4 Long term (current) use of insulin; Z87.39 Personal history of other diseases of the musculoskeletal system and connective tissue | CPT/HCPCS: 11042 ==

== ENCOUNTER → 2021-10-17 09:34 | Outpatient (CLI) | payer OTHER, MEDICAID, SELFPAY | PROVIDERS: Visit Provider Family Medicine | DX: E11.621 Type 2 diabetes mellitus with foot ulcer (principal); L97.412 Non-pressure chronic ulcer of right heel and midfoot with fat layer exposed; L97.522 Non-pressure chronic ulcer of other part of left foot with fat layer exposed; L84 Corns and callosities; E11.40 Type 2 diabetes mellitus with diabetic neuropathy, unspecified; C92.11 Chronic myeloid leukemia, BCR/ABL-positive, in remission; Z79.4 Long term (current) use of insulin; Z87.39 Personal history of other diseases of the musculoskeletal system and connective tissue | CPT/HCPCS: 11042; 99213 ==

== ENCOUNTER → 2021-11-07 09:44 | Outpatient (CLI) | payer OTHER, MEDICAID, SELFPAY ==
[2021-11-07 17:23] LABS: BUN Creatinine Ratio 12.9 (6-22); Blood Urea Nitrogen 16 mg/dL (9-20); Carbon Dioxide 17 mmol/L (22-32); Chloride 113 mmol/L (98-107); Estimated Glomerular Filt Rate > 60 mL/min (>60); Glucose 107 mg/dL (70-100); HEMOLYSIS 43 (0-50); Sodium 139 mmol/L (137-145)
== END ==
PROVIDERS: Referring Provider Podiatrist; Visit Provider Nurse Practitioner Family
DX: E11.621 Type 2 diabetes mellitus with foot ulcer (principal); L97.412 Non-pressure chronic ulcer of right heel and midfoot with fat layer exposed; L97.521 Non-pressure chronic ulcer of other part of left foot limited to breakdown of skin; L84 Corns and callosities; L08.9 Local infection of the skin and subcutaneous tissue, unspecified; E11.40 Type 2 diabetes mellitus with diabetic neuropathy, unspecified; T14.8XXD Other injury of unspecified body region, subsequent encounter
CPT/HCPCS: 11042; 36415; 80048; 85025; 85651; 86140; 87070; 87075; 87077; 87147; 87186; 87205; 99213

== ENCOUNTER → 2021-11-07 14:26 | Outpatient (CLI) | payer OTHER, MEDICAID, SELFPAY ==
[2021-11-07 15:22] LABS: Add Manual Diff / Slide Review NO; Basophils Absolute Auto 100 /uL (0-100); Eosinophils Absolute Auto 100 /uL (0-450); Eosinophils Percent Auto 1.6 % (2-4); Hematocrit 33.3 % (41-53); Hemoglobin 11.2 g/dL (13.5-17.5); Lymphocytes Absolute Auto 800 /uL (1100-4500); Mean Corpuscular HGB Conc 33.7 % (30-36); Mean Corpuscular Hemoglobin 30.8 PG (26-34); Mean Corpuscular Volume 91.5 fL (80-100); Monocytes Absolute Auto 300 /uL (0-900); Monocytes Percent Auto 5.8 % (3-14); Neutrophils Absolute Auto 3800 /uL (1500-7000); Neutrophils Percent Auto 75.6 % (50-75); Platelet Count 81 X10^3/uL (150-400); Red Blood Cell Count 3.64 X10^6/uL (4.5-5.9)
[2021-11-07 15:53] LABS: Erythrocyte Sedimentation Rate 43 MM/HR (0-15)
[2021-11-07 17:17] LABS: C-Reactive Protein Quant 2.6 mg/dL (<1.0)
== END ==
PROVIDERS: Referring Provider Nurse Practitioner Family; Visit Provider Nurse Practitioner Family
DX: E10.621 Type 1 diabetes mellitus with foot ulcer (principal); T14.8XXD Other injury of unspecified body region, subsequent encounter
CPT/HCPCS: 36415; 85025; 85651; 86140

== ENCOUNTER → 2021-11-14 09:34 | Outpatient (CLI) | payer OTHER, MEDICAID, SELFPAY | PROVIDERS: Referring Provider Podiatrist; Visit Provider Family Medicine | DX: E11.621 Type 2 diabetes mellitus with foot ulcer (principal); L97.512 Non-pressure chronic ulcer of other part of right foot with fat layer exposed; L97.521 Non-pressure chronic ulcer of other part of left foot limited to breakdown of skin | CPT/HCPCS: 99213 ==

== ENCOUNTER → 2021-11-18 13:20 | Outpatient (CLI) | payer OTHER, MEDICAID, SELFPAY ==
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
== END ==
PROVIDERS: Referring Provider Nurse Practitioner Family; Visit Provider Nurse Practitioner Family
DX: E11.621 Type 2 diabetes mellitus with foot ulcer (principal); L08.9 Local infection of the skin and subcutaneous tissue, unspecified; L03.115 Cellulitis of right lower limb; M60.871 Other myositis, right ankle and foot
CPT/HCPCS: 73720

== ENCOUNTER → 2021-11-26 16:47 | Outpatient (CLI) | payer OTHER, MEDICAID, SELFPAY ==
[2021-11-26 17:58] LABS: Add Manual Diff / Slide Review NO; Alanine Aminotransferase 19 IU/L (<50); Albumin 3.9 g/dL (3.5-5.0); Albumin Globulin Ratio 1.4 (1.0-2.8); Alkaline Phosphatase 139 U/L (38-126); Aspartate Aminotransferase 34 IU/L (17-59); BUN Creatinine Ratio 9.1 (6-22); Basophils Absolute Auto 100 /uL (0-100); Bilirubin Total 0.5 mg/dL (0.2-1.3); Blood Urea Nitrogen 12 mg/dL (9-20); C-Reactive Protein Quant < 0.5 mg/dL (<1.0); Calcium 7.9 mg/dL (8.4-10.2); Carbon Dioxide 27 mmol/L (22-32); Chloride 108 mmol/L (98-107); Eosinophils Absolute Auto 100 /uL (0-450); Eosinophils Percent Auto 1.2 % (2-4); Estimated Glomerular Filt Rate > 60 mL/min (>60); Globulin 2.7 g/dL (1.7-4.1); Glucose 128 mg/dL (70-100); HEMOLYSIS < 15 (0-50); Hematocrit 33.5 % (41-53); Hemoglobin 11.2 g/dL (13.5-17.5); Lymphocytes Absolute Auto 1000 /uL (1100-4500); Lymphocytes Percent Auto 15.4 % (25-40); Mean Corpuscular HGB Conc 33.5 % (30-36); Mean Corpuscular Hemoglobin 30.9 PG (26-34); Mean Corpuscular Volume 92.1 fL (80-100); Monocytes Absolute Auto 500 /uL (0-900); Neutrophils Absolute Auto 4900 /uL (1500-7000); Neutrophils Percent Auto 74.4 % (50-75); Platelet Count 70 X10^3/uL (150-400); Potassium 4.6 mmol/L (3.4-5.1); Red Blood Cell Count 3.64 X10^6/uL (4.5-5.9); Red Cell Distribution Width 14.7 % (11.6-14.8); Sodium 142 mmol/L (137-145); Total Protein 6.6 g/dL (6.3-8.2); White Blood Cell Count 6.6 X10^3/uL (4.5-11.0)
== END ==
PROVIDERS: Referring Provider Internal Medicine Infectious Disease; Visit Provider Internal Medicine Infectious Disease
DX: E11.628 Type 2 diabetes mellitus with other skin complications (principal); L08.9 Local infection of the skin and subcutaneous tissue, unspecified
CPT/HCPCS: 36415; 80053; 85025; 86140

== ENCOUNTER → 2021-11-28 10:16 | Outpatient (CLI) | payer OTHER, MEDICAID, SELFPAY | PROVIDERS: Visit Provider Family Medicine | DX: E11.628 Type 2 diabetes mellitus with other skin complications (principal); L08.9 Local infection of the skin and subcutaneous tissue, unspecified; K74.60 Unspecified cirrhosis of liver; M86.9 Osteomyelitis, unspecified; L97.512 Non-pressure chronic ulcer of other part of right foot with fat layer exposed; L97.521 Non-pressure chronic ulcer of other part of left foot limited to breakdown of skin; C92.11 Chronic myeloid leukemia, BCR/ABL-positive, in remission; Z79.4 Long term (current) use of insulin | CPT/HCPCS: 11042; 36415; 85610; 93005; 93010; 99213 ==

== ENCOUNTER → 2021-11-28 10:45 | Outpatient (CLI) | payer OTHER, MEDICAID, SELFPAY ==
[2021-11-28 12:37] LABS: INR 1.2 (0.9-1.3); Prothrombin Time 13.2 SECONDS (10.1-12.7)
== END ==
PROVIDERS: Referring Provider Internal Medicine Infectious Disease; Visit Provider Family Medicine
DX: E11.628 Type 2 diabetes mellitus with other skin complications (principal); L08.9 Local infection of the skin and subcutaneous tissue, unspecified; K74.60 Unspecified cirrhosis of liver; M86.9 Osteomyelitis, unspecified
CPT/HCPCS: 36415; 85610; 93005

== ENCOUNTER → 2021-12-12 08:36 | Outpatient (CLI) | payer OTHER, MEDICAID, SELFPAY | PROVIDERS: Referring Provider Podiatrist; Visit Provider Nurse Practitioner Family | DX: L97.512 Non-pressure chronic ulcer of other part of right foot with fat layer exposed (principal); L97.522 Non-pressure chronic ulcer of other part of left foot with fat layer exposed; E11.621 Type 2 diabetes mellitus with foot ulcer; M86.60 Other chronic osteomyelitis, unspecified site; C95.91 Leukemia, unspecified, in remission | CPT/HCPCS: 11042; 99212; 99213 ==

== ENCOUNTER → 2021-12-25 12:31 | Outpatient (CLI) | payer OTHER, MEDICAID, SELFPAY ==
[2021-12-25 13:38] LABS: Add Manual Diff / Slide Review NO; Basophils Absolute Auto 100 /uL (0-100); Basophils Percent Auto 1.2 % (0-2); Eosinophils Absolute Auto 100 /uL (0-450); Eosinophils Percent Auto 2.2 % (2-4); Hematocrit 35.2 % (41-53); Hemoglobin 11.7 g/dL (13.5-17.5); Lymphocytes Absolute Auto 800 /uL (1100-4500); Lymphocytes Percent Auto 13.2 % (25-40); Mean Corpuscular HGB Conc 33.4 % (30-36); Mean Corpuscular Hemoglobin 30.5 PG (26-34); Mean Corpuscular Volume 91.4 fL (80-100); Monocytes Absolute Auto 400 /uL (0-900); Monocytes Percent Auto 6.2 % (3-14); Neutrophils Absolute Auto 4700 /uL (1500-7000); Neutrophils Percent Auto 77.2 % (50-75); Platelet Count 80 X10^3/uL (150-400); Red Blood Cell Count 3.85 X10^6/uL (4.5-5.9); White Blood Cell Count 6.1 X10^3/uL (4.5-11.0)
[2021-12-25 14:13] LABS: Hemoglobin A1C% w Est Avg Glu 5.2 % (4.0-6.0)
[2021-12-25 14:29] LABS: Alanine Aminotransferase 21 IU/L (<50); Albumin Globulin Ratio 1.3 (1.0-2.8); Alkaline Phosphatase 127 U/L (38-126); Aspartate Aminotransferase 32 IU/L (17-59); BUN Creatinine Ratio 9.1 (6-22); Bilirubin Total 0.5 mg/dL (0.2-1.3); Blood Urea Nitrogen 12 mg/dL (9-20); C-Reactive Protein Quant < 0.5 mg/dL (<1.0); Carbon Dioxide 25 mmol/L (22-32); Chloride 106 mmol/L (98-107); Estimated Glomerular Filt Rate > 60 mL/min (>60); Glucose 100 mg/dL (70-100); HEMOLYSIS < 15 (0-50); Sodium 142 mmol/L (137-145)
[2021-12-25 14:34] LABS: Potassium 5.6 mmol/L (3.4-5.1)
== END ==
PROVIDERS: Referring Provider Internal Medicine Infectious Disease; Visit Provider Internal Medicine Infectious Disease
DX: M86.679 Other chronic osteomyelitis, unspecified ankle and foot (principal); M86.60 Other chronic osteomyelitis, unspecified site; E11.621 Type 2 diabetes mellitus with foot ulcer; L97.522 Non-pressure chronic ulcer of other part of left foot with fat layer exposed; L97.512 Non-pressure chronic ulcer of other part of right foot with fat layer exposed
CPT/HCPCS: 36415; 80053; 83036; 85025; 86140

== ENCOUNTER → 2021-12-26 09:26 | Outpatient (CLI) | payer OTHER, MEDICAID, SELFPAY | PROVIDERS: Referring Provider Podiatrist; Visit Provider Nurse Practitioner Family | DX: E11.621 Type 2 diabetes mellitus with foot ulcer (principal); L97.512 Non-pressure chronic ulcer of other part of right foot with fat layer exposed; M86.60 Other chronic osteomyelitis, unspecified site; Z79.4 Long term (current) use of insulin | CPT/HCPCS: 99213; 99214 ==

== ENCOUNTER → 2021-12-29 12:43 | Outpatient (CLI) | payer OTHER, MEDICAID, SELFPAY ==
[2021-12-29 13:40] LABS: BUN Creatinine Ratio 10.3 (6-22); Blood Urea Nitrogen 12 mg/dL (9-20); Calcium 7.8 mg/dL (8.4-10.2); Carbon Dioxide 24 mmol/L (22-32); Chloride 108 mmol/L (98-107); Estimated Glomerular Filt Rate > 60 mL/min (>60); Glucose 102 mg/dL (70-100); HEMOLYSIS < 15 (0-50); Potassium 4.4 mmol/L (3.4-5.1); Sodium 140 mmol/L (137-145)
== END ==
PROVIDERS: Referring Provider Internal Medicine Infectious Disease; Visit Provider Internal Medicine Infectious Disease
DX: M86.679 Other chronic osteomyelitis, unspecified ankle and foot (principal)
CPT/HCPCS: 36415; 80048

== ENCOUNTER → 2022-01-16 09:34 | Outpatient (CLI) | payer OTHER, MEDICAID, SELFPAY | PROVIDERS: Referring Provider Podiatrist; Visit Provider Nurse Practitioner Family | DX: M86.60 Other chronic osteomyelitis, unspecified site (principal); Z86.31 Personal history of diabetic foot ulcer; Z79.4 Long term (current) use of insulin | CPT/HCPCS: 99212; 99213 ==

== ENCOUNTER → 2022-03-13 11:19 | Outpatient (CLI) | payer OTHER, MEDICAID, SELFPAY | PROVIDERS: PCP Family Medicine; Referring Provider Family Medicine; Visit Provider Nurse Practitioner Family | DX: E11.628 Type 2 diabetes mellitus with other skin complications (principal); C95.91 Leukemia, unspecified, in remission; Z79.4 Long term (current) use of insulin | CPT/HCPCS: 99213 ==

== ENCOUNTER → 2022-04-02 09:24 | Outpatient (CLI) | payer OTHER, MEDICAID, SELFPAY | PROVIDERS: PCP Family Medicine; Referring Provider Podiatrist; Visit Provider Surgery | DX: E11.621 Type 2 diabetes mellitus with foot ulcer (principal); L97.522 Non-pressure chronic ulcer of other part of left foot with fat layer exposed; E11.40 Type 2 diabetes mellitus with diabetic neuropathy, unspecified; F17.220 Nicotine dependence, chewing tobacco, uncomplicated | CPT/HCPCS: 11042; 73630; 99213 ==

== ENCOUNTER → 2022-04-02 09:54 | Outpatient (CLI) | payer OTHER, MEDICAID, SELFPAY ==
--- NOTE | 2022-04-02 09:56 | DI.RAD.S_ITS ---
PROCEDURE: XR FOOT LT MIN 3V INDICATIONS: Non Healing ulcer TECHNIQUE: 3 views of the foot were acquired. COMPARISON: [facility], CR, XR FOOT LT MIN 3V, 12/11/2020, 14:32. [facility], MR, MR FOOT RT WO/W CON, 11/18/2021, 13:34. [facility], CR, XR FOOT LT MIN 3V, 07/22/2021, 9:48. FINDINGS: Bones: No fractures or dislocations. No suspicious bony lesions. There is an intramedullary sclerotic lesion in the distal tibia, most likely a enchondroma or bone infarct. Calcaneal spurring. Soft tissues: No tibiotalar joint effusion. Achilles tendon appears normal. IMPRESSION: 1. No definitive osteomyelitis. Radiographs, however, are not sensitive to detect early osteomyelitis. If clinical suspicion is high, MRI with and without contrast or a triple phase bone scan would be helpful. 2. Suspect an enchondroma or bone infarct in distal tibia. Dictated by: Darby Infante M.D. on 04/02/2022 at 16:48 Approved by: Darby Infante M.D. on 04/02/2022 at 16:51
== END ==
PROVIDERS: PCP Family Medicine; Referring Provider Surgery; Visit Provider Surgery
DX: E11.621 Type 2 diabetes mellitus with foot ulcer (principal); L97.529 Non-pressure chronic ulcer of other part of left foot with unspecified severity
CPT/HCPCS: 73630

== ENCOUNTER → 2022-04-09 13:17 | Outpatient (CLI) | payer OTHER, MEDICAID, SELFPAY | PROVIDERS: PCP Family Medicine; Referring Provider Podiatrist; Visit Provider Surgery | DX: E11.621 Type 2 diabetes mellitus with foot ulcer (principal); L97.522 Non-pressure chronic ulcer of other part of left foot with fat layer exposed; E11.40 Type 2 diabetes mellitus with diabetic neuropathy, unspecified; Z72.0 Tobacco use | CPT/HCPCS: 11042 ==

== ENCOUNTER → 2022-04-24 09:34 | Outpatient (CLI) | payer OTHER, MEDICAID, SELFPAY | PROVIDERS: PCP Family Medicine; Referring Provider Podiatrist; Visit Provider Nurse Practitioner Family | DX: L97.522 Non-pressure chronic ulcer of other part of left foot with fat layer exposed (principal); E11.621 Type 2 diabetes mellitus with foot ulcer; E11.42 Type 2 diabetes mellitus with diabetic polyneuropathy | CPT/HCPCS: 11042; 99213 ==

== ENCOUNTER → 2022-05-22 09:23 | Outpatient (CLI) | payer OTHER, MEDICAID, SELFPAY | PROVIDERS: PCP Family Medicine; Referring Provider Family Medicine; Visit Provider Nurse Practitioner Family | DX: E11.621 Type 2 diabetes mellitus with foot ulcer (principal); L97.522 Non-pressure chronic ulcer of other part of left foot with fat layer exposed; L84 Corns and callosities; E11.40 Type 2 diabetes mellitus with diabetic neuropathy, unspecified | CPT/HCPCS: 11042; 99213 ==

== ENCOUNTER → 2022-08-27 10:02 | Outpatient (CLI) | payer OTHER, MEDICAID, SELFPAY ==
--- NOTE | 2022-08-27 10:06 | DI.RAD.S_ITS ---
PROCEDURE: XR LUMBAR SPINE 2-3V INDICATIONS: worsening pain TECHNIQUE: 3 views of the lumbar spine were acquired. COMPARISON: [facility], CR, XR LUMBAR SPINE 2-3V, 08/18/2020, 16:00. FINDINGS: Bones: 5 [id number] vertebrae are present. There is loss of normal lumbar lordosis. Chronic wedging of L4 on L5. Posterior fusion hardware at L4-L5. Interbody device at L4-L5. Multilevel disc space narrowing and endplate osteophyte formation. No acute vertebral body compression fractures. No suspicious bony lesions. Soft tissues: Overlying bowel gas pattern is normal. No suspicious soft tissue calcifications. IMPRESSION: 1. Postsurgical sequelae. 2. Multilevel degenerative disc and facet disease, as well as ligamentum flavum hypertrophy and epidural lipomatosis. 3. No acute fracture. No osseous lesion. If symptoms and/or clinical suspicion for pathology persist, further assessment with repeat, or advanced imaging (e.g., CT, MRI, or bone scan) may be helpful for further assessment. Dictated by: Brian Wei M.D. on 08/27/2022 at 13:13 Transcribed by: JEANNINE on 08/27/2022 at 13:14 Approved by: Brian Wei M.D. on 08/27/2022 at 15:59
--- NOTE | 2022-08-27 10:06 | DI.RAD.S_ITS ---
PROCEDURE: XR THORACIC SPINE 3V INDICATIONS: worsening pain. TECHNIQUE: 3 views of the thoracic spine were acquired. COMPARISON: [facility], THORACO-LUMBAR SPINE 2 VIEWS, 05/18/2013, 12:25. FINDINGS: Bones: No fractures or dislocations. No suspicious bony lesions. Visualized ribs are intact. Multilevel disc space narrowing and endplate osteophyte formation. Low cervical fusion hardware. Soft tissues: No paravertebral stripe thickening. IMPRESSION: Multilevel degenerative disc disease. No acute fracture. No osseous lesion. If symptoms and/or clinical suspicion for pathology persist, further assessment with repeat, or advanced imaging (e.g., CT, MRI, or bone scan) may be helpful for further assessment. Dictated by: Brian Wei M.D. on 08/27/2022 at 13:12 Transcribed by: JEANNINE on 08/27/2022 at 13:12 Approved by: Brian Wei M.D. on 08/27/2022 at 15:59
[2022-08-27 11:23] LABS: Alanine Aminotransferase 29 IU/L (<50); Albumin 3.8 g/dL (3.5-5.0); Albumin Globulin Ratio 1.5 (1.0-2.8); Alkaline Phosphatase 102 U/L (38-126); Aspartate Aminotransferase 37 IU/L (17-59); BUN Creatinine Ratio 9.7 (6-22); Bilirubin Total 0.4 mg/dL (0.2-1.3); Blood Urea Nitrogen 17 mg/dL (9-20); Calcium 7.7 mg/dL (8.4-10.2); Carbon Dioxide 21 mmol/L (22-32); Chloride 110 mmol/L (98-107); Estimated Glomerular Filt Rate 48 mL/min (>60); Globulin 2.6 g/dL (1.7-4.1); Glucose 204 mg/dL (70-100); HEMOLYSIS < 15 (0-50); Potassium 5.3 mmol/L (3.4-5.1); Sodium 141 mmol/L (137-145); Total Protein 6.4 g/dL (6.3-8.2)
== END ==
PROVIDERS: PCP Family Medicine; Referring Provider Family Medicine; Visit Provider Family Medicine
DX: M54.16 Radiculopathy, lumbar region (principal); R73.9 Hyperglycemia, unspecified; Z98.890 Other specified postprocedural states; M47.816 Spondylosis without myelopathy or radiculopathy, lumbar region; M46.06 Spinal enthesopathy, lumbar region; E88.2 Lipomatosis, not elsewhere classified
CPT/HCPCS: 36415; 72072; 72100; 80053

== ENCOUNTER 2022-10-16 14:15 | Emergency (ER) | payer OTHER, MEDICAID, SELFPAY ==
[2022-10-16] VITALS (25 sets, daily range): BP systolic 86–110; BP diastolic 51–70; PULSE 51–67; RESP 13–16; TEMP 37.1; O2SAT 92–100; BMI 19.2
--- NOTE | 2022-10-16 14:19 | DI.RAD.S_ITS ---
PROCEDURE: XR CHEST 1V INDICATIONS: weakness TECHNIQUE: One view of the chest was acquired. COMPARISON: [facility], CR, XR CHEST 1V, 08/11/2021, 13:52. FINDINGS: Surgical changes and devices: Cervical fusion hardware Lungs and pleura: Lungs are clear. No pleural effusions or pneumothorax. Mediastinum: Mediastinal contours appear normal. Heart size is normal. Bones and chest wall: No suspicious bony lesions. Overlying soft tissues appear unremarkable. IMPRESSION: No evidence acute pulmonary process. Dictated by: Lizandro Diane M.D. on 10/16/2022 at 16:49 Approved by: Lizandro Diane M.D. on 10/16/2022 at 16:50
--- NOTE | 2022-10-16 14:20 | ED.GENADULT ---
HPI - General Adult <Lavon Gomez DO - Last Filed: 10/31/22 18:14> General Chief complaint: Weakness Stated complaint: General Weakness Time Seen by Provider: 10/16/22 14:18 History of Present Illness HPI narrative: 46-year-old male smoker, former polysubstance abuse patient history of leukemia, osteomyelitis of the spine, diabetes presents by EMS for evaluation of dizziness, weakness and lightheadedness. He states that he just started back on oral chemotherapy for his leukemia last week and has had persistent vomiting for much of the week. He denies any fever or chills but just feels generally unwell. He has some crampy abdominal discomfort. He denies chest pain or shortness of breath. Denies runny nose, sore throat or cough. EMS placed an IV, started IV fluids and gave Zofran 8 mg Related Data Home Medications Medication Instructions Recorded Confirmed lorazepam 1 mg tablet 1 mg PO TID PRN nauseas 03/09/22 10/17/22 dasatinib 100 mg tablet (Sprycel) 100 mg PO DAILY 05/11/22 10/17/22 Previous Rx's Medication Instructions Recorded BD U/F Hilda Pen Needle [id number] #100 ea 06/13/18 blood-glucose sensor (Dexcom G6 #3 ea 05/11/22 Sensor device) blood-glucose transmitter (Dexcom #1 ea 05/11/22 G6 Transmitter device) insulin glargine 100 unit/mL (3 20 unit (0.2 mL) SUBCUT DAILY #15 05/11/22 mL) subcutaneous pen (Lantus mL Solostar U-100 Insulin) insulin lispro 100 unit/mL 1 - 12 unit (0.01 - 0.12 mL) 05/11/22 subcutaneous pen (Humalog KwikPen SUBCUT TIDCC #1 ea (U-100) Insulin) lactulose 10 gram/15 mL oral 15 ml PO DAILY #473 mL 05/11/22 solution (Constulose) pregabalin 25 mg capsule 25 mg PO TID #270 caps 10/14/22 glucagon HCl 1 mg solution for 1 mg SUBCUT Q20M PRN hypoglycemia 10/23/22 injection (Glucagon (HCl) #2 ea Emergency Kit) Allergies Allergy/AdvReac Type Severity Reaction Status Date / Time Penicillins [PENICILLINS] Allergy Severe Tongue Verified 10/12/22 10:19 swelling, hives adhesive Allergy Intermediate rash, skin Verified 10/12/22 10:19 tear morphine Allergy Mild Hives Verified 10/12/22 10:19 latex [LATEX] Allergy Unknown rash, skin Verified 10/12/22 10:19 tear Review of Systems <Lavon Gomez DO - Last Filed: 10/31/22 18:14> Review of Systems Narrative: GENERAL: See HPI HEENT: Denies sinus pain, ear pain, sore throat, difficulty swallowing, dizziness. RESPIRATORY: Denies dyspnea, cough, wheezing, hemoptysis, sputum. CARDIOVASCULAR: Denies chest pain, palpitations, orthopnea, edema, GASTROINTESTINAL: See HPI : See HPI MUSCULOSKELETAL: denies weakness, joint pain, or bony pain SKIN: Denies rash, skin lesions, or other NEUROLOGIC: Denies weakness, headache, numbness, change in speech, confusion, seizures, incoordination. PSYCHIATRIC: No concerning psychosocial issues. 12 point review of systems is negative except for those stated above Patient History <Lavon Gomez DO - Last Filed: 10/31/22 18:14> Medical History Alcoholism Ataxia Cancer of blood vessel Central cord syndrome at C3 level of cervical spinal cord Cervical radiculopathy Cervicalgia Chronic, continuous use of opioids CML (chronic myelocytic leukemia) Insulin dependent diabetes mellitus Pancytopenia Thrombocytopenia Surgical History Status post appendectomy Family History Grandfather Diabetes mellitus Mother Cancer History of heart disease Father Hyperlipidemia History of heart disease Social History household members: none Smoking Status: Former smoker Tobacco: How many years used: 10 Smokeless tobacco user: chewing tobacco (current ) quit status: considering quitting alcohol intake: former (Quit 2018 ) substance use type: former substance user (Quit 2011), marijuana (Current marijuana ) and opiates (former ) Smoking Status: Former smoker (Quit 2013 ) tobacco type: smokeless tobacco alcohol intake frequency: a few times a week Alcohol type: beer Substance Use Type: marijuana Exam <Lavon Gomez DO - Last Filed: 10/31/22 18:14> Narrative Exam Narrative: GENERAL: [46] year old patient appears older than stated age. Obvious chronic illness, appears unwell pale, dry mucous membranes HEAD: Atraumatic. Normocephalic. EYES: Pupils equal round and reactive. Extraocular motions intact. No scleral icterus. No injection or drainage. ENT: Dry mucous membranes Nose without bleeding, purulent drainage. Throat without erythema, tonsillar hypertrophy or exudate. Airway patent. NECK: Trachea midline. Non tender CARDIOVASCULAR: Regular rate and rhythm without murmurs, gallops, or rubs. RESPIRATORY: Clear to auscultation. Breath sounds equal bilaterally. No wheezes, rales, or rhonchi. GASTROINTESTINAL: Abdomen soft, non-tender, nondistended. EXTREMITIES: No edema or joint tenderness. BACK: Nontender without deformity or crepitance. No flank tenderness. NEURO: AOx3. SKIN: No rash or erythema of visible areas Initial Vital Signs Initial Vital Signs: Vital Signs Pulse Rate 66 10/16/22 14:20 Pulse Oximetry 97 10/16/22 14:20 <Jermaine Daly, DO - Last Filed: 10/17/22 18:12> Initial Vital Signs Initial Vital Signs: Vital Signs Pulse Rate 66 10/16/22 14:20 Pulse Oximetry 97 10/16/22 14:20 <Bre Cespedes DO - Last Filed: 10/17/22 14:29> Initial Vital Signs Initial Vital Signs: Vital Signs Pulse Rate 66 10/16/22 14:20 Pulse Oximetry 97 10/16/22 14:20 Course <Lavon Gomez, DO - Last Filed: 10/31/22 18:14> Orders Ordered: Discontinued Medications Acetaminophen (Acetaminophen 325 Mg Tablet) 650 mg PO NOW ONE Stop: 10/16/22 20:43 Last Admin: 10/16/22 20:48 Dose: 650 mg Documented By: ARIAS Calcium Carbonate (Calcium Carbonate 500 Mg Tab) 1,500 mg PO DAILY ROBIN Last Admin: 10/17/22 08:06 Dose: 1,500 mg Documented By: MARGY Fentanyl (Fentanyl 100 Mcg/2 Ml Inj) 25 mcg IV NOW ONE Stop: 10/16/22 18:05 Last Admin: 10/16/22 18:08 Dose: 25 mcg Documented By: ARIAS Hydromorphone HCl (Hydromorphone 0.5 Mg Inj) 0.5 mg IV NOW ONE Stop: 10/16/22 20:09 Last Admin: 10/16/22 20:15 Dose: 0.5 mg Documented By: ARIAS Hydromorphone HCl (Hydromorphone 0.5 Mg Inj) 0.5 mg IV NOW ONE Stop: 10/16/22 21:14 Last Admin: 10/16/22 21:19 Dose: 0.5 mg Documented By: ARIAS Hydromorphone HCl (Hydromorphone 1 Mg Inj) 1 mg IV NOW ONE Stop: 10/16/22 22:38 Last Admin: 10/16/22 22:54 Dose: 1 mg Documented By: ANGIE Hydromorphone HCl (Hydromorphone 0.5 Mg Inj) 0.5 mg IV Q2HR PRN PRN Reason: Pain, Mild (1-3) Last Admin: 10/17/22 11:37 Dose: 0.5 mg Documented By: Admin: 10/17/22 08:45 Dose: 0.5 mg Documented By: Admin: 10/17/22 06:14 Dose: 0.5 mg Documented By: Admin: 10/17/22 03:30 Dose: 0.5 mg Documented By: Admin: 10/17/22 01:45 Dose: 0.5 mg Documented By: ANGIE Hydromorphone HCl (Hydromorphone 0.5 Mg Inj) 0.5 mg IV Q3H PRN PRN Reason: Pain, Mild (1-3) Hydroxyurea (Hydroxyurea 500 Mg Capsule) 2,000 mg PO NOW ONE Stop: 10/16/22 19:11 Last Admin: 10/16/22 19:50 Dose: 2,000 mg Documented By: ARIAS Hydroxyurea (Hydroxyurea 500 Mg Capsule) 500 mg PO DAILY [facility] Last Admin: 10/17/22 08:06 Dose: 500 mg Documented By: MARGY Sodium Chloride (Normal Saline 0.9%) 1,000 mls @ 1,000 mls/hr IV BOLUS ONE Stop: 10/16/22 15:17 Last Infusion: 10/16/22 15:50 Dose: 0 mls/hr Documented By: Admin: 10/16/22 14:44 Dose: 1,000 mls/hr Documented By: KIKI Sodium Chloride (Normal Saline 0.9%) 1,000 mls @ 1,000 mls/hr IV BOLUS ONE Stop: 10/16/22 22:34 Last Infusion: 10/17/22 00:19 Dose: 0 mls/hr Documented By: Admin: 10/16/22 22:39 Dose: 1,000 mls/hr Documented By: SHANEL Sodium Chloride (Normal Saline 0.9%) 1,000 mls @ 150 mls/hr IV CONT ROBIN Last Infusion: 10/17/22 05:01 Dose: 0 mls/hr Documented By: Admin: 10/17/22 01:45 Dose: 150 mls/hr Documented By: ANGIE Lactated Ringer's (Lactated Ringers) 1,000 mls @ 250 mls/hr IV CONT ROBIN Last Infusion: 10/17/22 09:13 Dose: 0 mls/hr Documented By: Admin: 10/17/22 05:00 Dose: 250 mls/hr Documented By: ANGIE Calcium Gluconate 4.65 meq/ (Sodium Chloride) 60 mls @ 180 mls/hr IV NOW ONE Stop: 10/17/22 08:48 Last Infusion: 10/17/22 09:12 Dose: 0 mls/hr Documented By: Admin: 10/17/22 08:49 Dose: 180 mls/hr Documented By: MARGY Lactated Ringer's (Lactated Ringers) 1,000 mls @ 250 mls/hr IV CONT [facility] Last Admin: 10/17/22 10:21 Dose: 250 mls/hr Documented By: MARGY Insulin Glargine (Insulin Glargine 100 Unit/Ml 3ml Pen) 20 unit SUBCUT DAILY [facility] Last Admin: 10/17/22 08:26 Dose: Not Given Documented By: Admin: 10/17/22 08:00 Dose: 20 unit Documented By: MARGY Co-signed By: NHUNG Lorazepam (Lorazepam 2 Mg/Ml Inj) 1 mg IV NOW ONE Stop: 10/17/22 00:09 Last Admin: 10/17/22 00:13 Dose: 1 mg Documented By: ANGIE Lorazepam (Lorazepam 2 Mg/Ml Inj) 0.5 mg IV NOW ONE Stop: 10/17/22 12:56 Last Admin: 10/17/22 13:36 Dose: 0.5 mg Documented By: RHONDA Metoclopramide HCl (Metoclopramide 10 Mg/2 Ml Inj) 10 mg IV NOW ONE Stop: 10/17/22 06:11 Last Admin: 10/17/22 06:16 Dose: 10 mg Documented By: ANGIE Nicotine (Nicotine 14 Patch) 14 mg TOP NOW ONE Stop: 10/16/22 20:44 Last Admin: 10/17/22 00:14 Dose: 14 mg Documented By: ANGIE Ondansetron HCl (Ondansetron 4 Mg/2 Ml Inj) 4 mg IV NOW ONE Stop: 10/16/22 18:18 Last Admin: 10/16/22 18:29 Dose: 4 mg Documented By: ARIAS Ondansetron HCl (Ondansetron 4 Mg/2 Ml Inj) 4 mg IV NOW ONE Stop: 10/17/22 00:10 Last Admin: 10/17/22 03:30 Dose: 4 mg Documented By: ANGIE Pantoprazole Sodium (Pantoprazole 40 Mg Vial) 40 mg IV NOW ONE Stop: 10/16/22 14:19 Last Admin: 10/16/22 14:44 Dose: 40 mg Documented By: KIKI Consultations Consultation #1: discussed with Dr. Noel (patient's oncologist). He has CML and has been noncompliant with his medications with recent white counts reaching up into 100s. Patient is supposed to take imatinib but per recent visits and lab tests would suggest he has not been taking his medications. He suggests the patient is in leukostasis and needs transfer to Vital Signs Vital signs: Vital Signs - 8 hr 10/17/22 10:30 10/17/22 11:00 10/17/22 11:30 Pulse Rate 56 L 62 71 Respiratory Rate Blood Pressure Pulse Oximetry 100 100 99 Oxygen Delivery Method 10/17/22 11:43 10/17/22 11:43 10/17/22 12:00 Pulse Rate 61 58 L Respiratory Rate Blood Pressure 134/63 Pulse Oximetry 100 99 Oxygen Delivery Method 10/17/22 12:30 10/17/22 13:00 10/17/22 13:30 Pulse Rate 65 59 L 59 L Respiratory Rate Blood Pressure Pulse Oximetry 100 100 99 Oxygen Delivery Method 10/17/22 14:10 10/17/22 13:45 10/17/22 13:45 Pulse Rate 71 71 Respiratory Rate 18 Blood Pressure 133/70 133/70 Pulse Oximetry 100 100 Oxygen Delivery Method Room Air <Jermaine Malika, DO - Last Filed: 10/17/22 18:12> Orders Ordered: Discontinued Medications Acetaminophen (Acetaminophen 325 Mg Tablet) 650 mg PO NOW ONE Stop: 10/16/22 20:43 Last Admin: 10/16/22 20:48 Dose: 650 mg Documented By: ARIAS Calcium Carbonate (Calcium Carbonate 500 Mg Tab) 1,500 mg PO DAILY [facility] Last Admin: 10/17/22 08:06 Dose: 1,500 mg Documented By: MARGY Fentanyl (Fentanyl 100 Mcg/2 Ml Inj) 25 mcg IV NOW ONE Stop: 10/16/22 18:05 Last Admin: 10/16/22 18:08 Dose: 25 mcg Documented By: ARIAS Hydromorphone HCl (Hydromorphone 0.5 Mg Inj) 0.5 mg IV NOW ONE Stop: 10/16/22 20:09 Last Admin: 10/16/22 20:15 Dose: 0.5 mg Documented By: ARIAS Hydromorphone HCl (Hydromorphone 0.5 Mg Inj) 0.5 mg IV NOW ONE Stop: 10/16/22 21:14 Last Admin: 10/16/22 21:19 Dose: 0.5 mg Documented By: ARIAS Hydromorphone HCl (Hydromorphone 1 Mg Inj) 1 mg IV NOW ONE Stop: 10/16/22 22:38 Last Admin: 10/16/22 22:54 Dose: 1 mg Documented By: ANGIE Hydromorphone HCl (Hydromorphone 0.5 Mg Inj) 0.5 mg IV Q2HR PRN PRN Reason: Pain, Mild (1-3) Last Admin: 10/17/22 11:37 Dose: 0.5 mg Documented By: Admin: 10/17/22 08:45 Dose: 0.5 mg Documented By: Admin: 10/17/22 06:14 Dose: 0.5 mg Documented By: Admin: 10/17/22 03:30 Dose: 0.5 mg Documented By: Admin: 10/17/22 01:45 Dose: 0.5 mg Documented By: ANGIE Hydromorphone HCl (Hydromorphone 0.5 Mg Inj) 0.5 mg IV Q3H PRN PRN Reason: Pain, Mild (1-3) Hydroxyurea (Hydroxyurea 500 Mg Capsule) 2,000 mg PO NOW ONE Stop: 10/16/22 19:11 Last Admin: 10/16/22 19:50 Dose: 2,000 mg Documented By: ARIAS Hydroxyurea (Hydroxyurea 500 Mg Capsule) 500 mg PO DAILY ROBIN Last Admin: 10/17/22 08:06 Dose: 500 mg Documented By: MARGY Sodium Chloride (Normal Saline 0.9%) 1,000 mls @ 1,000 mls/hr IV BOLUS ONE Stop: 10/16/22 15:17 Last Infusion: 10/16/22 15:50 Dose: 0 mls/hr Documented By: Admin: 10/16/22 14:44 Dose: 1,000 mls/hr Documented By: KIKI Sodium Chloride (Normal Saline 0.9%) 1,000 mls @ 1,000 mls/hr IV BOLUS ONE Stop: 10/16/22 22:34 Last Infusion: 10/17/22 00:19 Dose: 0 mls/hr Documented By: Admin: 10/16/22 22:39 Dose: 1,000 mls/hr Documented By: SHANEL Sodium Chloride (Normal Saline 0.9%) 1,000 mls @ 150 mls/hr IV CONT ROBIN Last Infusion: 10/17/22 05:01 Dose: 0 mls/hr Documented By: Admin: 10/17/22 01:45 Dose: 150 mls/hr Documented By: ANGIE Lactated Ringer's (Lactated Ringers) 1,000 mls @ 250 mls/hr IV CONT ROBIN Last Infusion: 10/17/22 09:13 Dose: 0 mls/hr Documented By: Admin: 10/17/22 05:00 Dose: 250 mls/hr Documented By: ANGIE Calcium Gluconate 4.65 meq/ (Sodium Chloride) 60 mls @ 180 mls/hr IV NOW ONE Stop: 10/17/22 08:48 Last Infusion: 10/17/22 09:12 Dose: 0 mls/hr Documented By: Admin: 10/17/22 08:49 Dose: 180 mls/hr Documented By: MARGY Lactated Ringer's (Lactated Ringers) 1,000 mls @ 250 mls/hr IV CONT ROBIN Last Admin: 10/17/22 10:21 Dose: 250 mls/hr Documented By: MARGY Insulin Glargine (Insulin Glargine 100 Unit/Ml 3ml Pen) 20 unit SUBCUT DAILY [facility] Last Admin: 10/17/22 08:26 Dose: Not Given Documented By: Admin: 10/17/22 08:00 Dose: 20 unit Documented By: MARGY Co-signed By: NHUNG Lorazepam (Lorazepam 2 Mg/Ml Inj) 1 mg IV NOW ONE Stop: 10/17/22 00:09 Last Admin: 10/17/22 00:13 Dose: 1 mg Documented By: ANGIE Lorazepam (Lorazepam 2 Mg/Ml Inj) 0.5 mg IV NOW ONE Stop: 10/17/22 12:56 Last Admin: 10/17/22 13:36 Dose: 0.5 mg Documented By: RHONDA Metoclopramide HCl (Metoclopramide 10 Mg/2 Ml Inj) 10 mg IV NOW ONE Stop: 10/17/22 06:11 Last Admin: 10/17/22 06:16 Dose: 10 mg Documented By: ANGIE Nicotine (Nicotine 14 Patch) 14 mg TOP NOW ONE Stop: 10/16/22 20:44 Last Admin: 10/17/22 00:14 Dose: 14 mg Documented By: ANGIE Ondansetron HCl (Ondansetron 4 Mg/2 Ml Inj) 4 mg IV NOW ONE Stop: 10/16/22 18:18 Last Admin: 10/16/22 18:29 Dose: 4 mg Documented By: ARIAS Ondansetron HCl (Ondansetron 4 Mg/2 Ml Inj) 4 mg IV NOW ONE Stop: 10/17/22 00:10 Last Admin: 10/17/22 03:30 Dose: 4 mg Documented By: ANGIE Pantoprazole Sodium (Pantoprazole 40 Mg Vial) 40 mg IV NOW ONE Stop: 10/16/22 14:19 Last Admin: 10/16/22 14:44 Dose: 40 mg Documented By: KIKI Vital Signs Vital signs: Vital Signs - 8 hr 10/17/22 10:30 10/17/22 11:00 10/17/22 11:30 Pulse Rate 56 L 62 71 Respiratory Rate Blood Pressure Pulse Oximetry 100 100 99 Oxygen Delivery Method 10/17/22 11:43 10/17/22 11:43 10/17/22 12:00 Pulse Rate 61 58 L Respiratory Rate Blood Pressure 134/63 Pulse Oximetry 100 99 Oxygen Delivery Method 10/17/22 12:30 10/17/22 13:00 10/17/22 13:30 Pulse Rate 65 59 L 59 L Respiratory Rate Blood Pressure Pulse Oximetry 100 100 99 Oxygen Delivery Method 10/17/22 14:10 10/17/22 13:45 10/17/22 13:45 Pulse Rate 71 71 Respiratory Rate 18 Blood Pressure 133/70 133/70 Pulse Oximetry 100 100 Oxygen Delivery Method Room Air <Bre Cespedes, DO - Last Filed: 10/17/22 14:29> Orders Ordered: Discontinued Medications Acetaminophen (Acetaminophen 325 Mg Tablet) 650 mg PO NOW ONE Stop: 10/16/22 20:43 Last Admin: 10/16/22 20:48 Dose: 650 mg Documented By: ARIAS Calcium Carbonate (Calcium Carbonate 500 Mg Tab) 1,500 mg PO DAILY ROBIN Last Admin: 10/17/22 08:06 Dose: 1,500 mg Documented By: MARGY Fentanyl (Fentanyl 100 Mcg/2 Ml Inj) 25 mcg IV NOW ONE Stop: 10/16/22 18:05 Last Admin: 10/16/22 18:08 Dose: 25 mcg Documented By: ARIAS Hydromorphone HCl (Hydromorphone 0.5 Mg Inj) 0.5 mg IV NOW ONE Stop: 10/16/22 20:09 Last Admin: 10/16/22 20:15 Dose: 0.5 mg Documented By: ARIAS Hydromorphone HCl (Hydromorphone 0.5 Mg Inj) 0.5 mg IV NOW ONE Stop: 10/16/22 21:14 Last Admin: 10/16/22 21:19 Dose: 0.5 mg Documented By: ARIAS Hydromorphone HCl (Hydromorphone 1 Mg Inj) 1 mg IV NOW ONE Stop: 10/16/22 22:38 Last Admin: 10/16/22 22:54 Dose: 1 mg Documented By: ANGIE Hydromorphone HCl (Hydromorphone 0.5 Mg Inj) 0.5 mg IV Q2HR PRN PRN Reason: Pain, Mild (1-3) Last Admin: 10/17/22 11:37 Dose: 0.5 mg Documented By: Admin: 10/17/22 08:45 Dose: 0.5 mg Documented By: Admin: 10/17/22 06:14 Dose: 0.5 mg Documented By: Admin: 10/17/22 03:30 Dose: 0.5 mg Documented By: Admin: 10/17/22 01:45 Dose: 0.5 mg Documented By: ANGIE Hydromorphone HCl (Hydromorphone 0.5 Mg Inj) 0.5 mg IV Q3H PRN PRN Reason: Pain, Mild (1-3) Hydroxyurea (Hydroxyurea 500 Mg Capsule) 2,000 mg PO NOW ONE Stop: 10/16/22 19:11 Last Admin: 10/16/22 19:50 Dose: 2,000 mg Documented By: ARIAS Hydroxyurea (Hydroxyurea 500 Mg Capsule) 500 mg PO DAILY [facility] Last Admin: 10/17/22 08:06 Dose: 500 mg Documented By: MARGY Sodium Chloride (Normal Saline 0.9%) 1,000 mls @ 1,000 mls/hr IV BOLUS ONE Stop: 10/16/22 15:17 Last Infusion: 10/16/22 15:50 Dose: 0 mls/hr Documented By: Admin: 10/16/22 14:44 Dose: 1,000 mls/hr Documented By: KIKI Sodium Chloride (Normal Saline 0.9%) 1,000 mls @ 1,000 mls/hr IV BOLUS ONE Stop: 10/16/22 22:34 Last Infusion: 10/17/22 00:19 Dose: 0 mls/hr Documented By: Admin: 10/16/22 22:39 Dose: 1,000 mls/hr Documented By: SHANEL Sodium Chloride (Normal Saline 0.9%) 1,000 mls @ 150 mls/hr IV CONT ROBIN Last Infusion: 10/17/22 05:01 Dose: 0 mls/hr Documented By: Admin: 10/17/22 01:45 Dose: 150 mls/hr Documented By: ANGIE Lactated Ringer's (Lactated Ringers) 1,000 mls @ 250 mls/hr IV CONT ROBIN Last Infusion: 10/17/22 09:13 Dose: 0 mls/hr Documented By: Admin: 10/17/22 05:00 Dose: 250 mls/hr Documented By: ANGIE Calcium Gluconate 4.65 meq/ (Sodium Chloride) 60 mls @ 180 mls/hr IV NOW ONE Stop: 10/17/22 08:48 Last Infusion: 10/17/22 09:12 Dose: 0 mls/hr Documented By: Admin: 10/17/22 08:49 Dose: 180 mls/hr Documented By: MARGY Lactated Ringer's (Lactated Ringers) 1,000 mls @ 250 mls/hr IV CONT [facility] Last Admin: 10/17/22 10:21 Dose: 250 mls/hr Documented By: MARGY Insulin Glargine (Insulin Glargine 100 Unit/Ml 3ml Pen) 20 unit SUBCUT DAILY [facility] Last Admin: 10/17/22 08:26 Dose: Not Given Documented By: Admin: 10/17/22 08:00 Dose: 20 unit Documented By: MARGY Co-signed By: NHUNG Lorazepam (Lorazepam 2 Mg/Ml Inj) 1 mg IV NOW ONE Stop: 10/17/22 00:09 Last Admin: 10/17/22 00:13 Dose: 1 mg Documented By: ANGIE Lorazepam (Lorazepam 2 Mg/Ml Inj) 0.5 mg IV NOW ONE Stop: 10/17/22 12:56 Last Admin: 10/17/22 13:36 Dose: 0.5 mg Documented By: RHONDA Metoclopramide HCl (Metoclopramide 10 Mg/2 Ml Inj) 10 mg IV NOW ONE Stop: 10/17/22 06:11 Last Admin: 10/17/22 06:16 Dose: 10 mg Documented By: ANGIE Nicotine (Nicotine 14 Patch) 14 mg TOP NOW ONE Stop: 10/16/22 20:44 Last Admin: 10/17/22 00:14 Dose: 14 mg Documented By: ANGIE Ondansetron HCl (Ondansetron 4 Mg/2 Ml Inj) 4 mg IV NOW ONE Stop: 10/16/22 18:18 Last Admin: 10/16/22 18:29 Dose: 4 mg Documented By: ARIAS Ondansetron HCl (Ondansetron 4 Mg/2 Ml Inj) 4 mg IV NOW ONE Stop: 10/17/22 00:10 Last Admin: 10/17/22 03:30 Dose: 4 mg Documented By: ANGIE Pantoprazole Sodium (Pantoprazole 40 Mg Vial) 40 mg IV NOW ONE Stop: 10/16/22 14:19 Last Admin: 10/16/22 14:44 Dose: 40 mg Documented By: KIKI Vital Signs Vital signs: Vital Signs - 8 hr 10/17/22 10:30 10/17/22 11:00 10/17/22 11:30 Pulse Rate 56 L 62 71 Respiratory Rate Blood Pressure Pulse Oximetry 100 100 99 Oxygen Delivery Method 10/17/22 11:43 10/17/22 11:43 10/17/22 12:00 Pulse Rate 61 58 L Respiratory Rate Blood Pressure 134/63 Pulse Oximetry 100 99 Oxygen Delivery Method 10/17/22 12:30 10/17/22 13:00 10/17/22 13:30 Pulse Rate 65 59 L 59 L Respiratory Rate Blood Pressure Pulse Oximetry 100 100 99 Oxygen Delivery Method 10/17/22 14:10 10/17/22 13:45 10/17/22 13:45 Pulse Rate 71 71 Respiratory Rate 18 Blood Pressure 133/70 133/70 Pulse Oximetry 100 100 Oxygen Delivery Method Room Air Medical Decision Making <Lavon Gomez, - Last Filed: 10/31/22 18:14> Lab Data 10/17/22 08:10 10/17/22 08:10 Labs: Lab Results 10/16/22 10/16/22 10/16/22 Range/Units 14:18 14:18 14:18 WBC 144.0 H* (4.5-11.0) X10^3/uL RBC 2.83 L (4.5-5.9) X10^6/uL Hgb 8.4 L (13.5-17.5) g/dL Hct 27.4 L (41-53) % MCV 96.5 (80-100) fL MCH 29.6 (26-34) PG MCHC 30.7 (30-36) % RDW 16.1 H (11.6-14.8) % Plt Count 162 (150-400) X10^3/uL Neut % (Auto) Not Reportable Lymph % (Auto) Not Reportable [place] % (Auto) Not Reportable Eos % (Auto) Not Reportable Baso % (Auto) Not Reportable Lymph # (Auto) Not Reportable [place] # (Auto) Not Reportable Baso # (Auto) Not Reportable Total Counted 100 Seg Neutrophils % 47.0 (38-70) % Band Neutrophils % 20.0 H (3-7) % Lymphocytes % (Manual) 5.0 L (25-45) % Monocytes % (Manual) 4.0 (2-11) % Basophils % (Manual) 2.0 H (0-1) % Metamyelocytes % 5.0 H (-0) % Myelocytes % 17.0 H (-0) % Neutrophils # (Manual) 24119 H (4458-2743) /uL RBC Morphology Normal morphology Anisocytosis Percent Retic (0.9-2.6) % Sodium 139 (137-145) mmol/L Potassium 5.8 H (3.4-5.1) mmol/L Chloride 110 H (98-107) mmol/L Carbon Dioxide 17 L (22-32) mmol/L BUN 46 H (9-20) mg/dL Creatinine 3.48 H (0.66-1.25) mg/dL Estimated GFR 21 L (>60) mL/min BUN/Creatinine Ratio 13.2 (6-22) Glucose 120 H (70-100) mg/dL Lactate 0.7 (0.7-2.1) mmol/L Uric Acid (3.5-8.5) mg/dL Calcium 6.7 L (8.4-10.2) mg/dL Magnesium 2.6 H (1.6-2.3) mg/dL Erythropoietin (2.6-18.5) mIU/mL Total Bilirubin 0.4 (0.2-1.3) mg/dL GGT (15-73) U/L AST 61 H (17-59) IU/L ALT 33 (<50) IU/L Alkaline Phosphatase 150 H (38-126) U/L Ammonia (9-30) umol/L Lactate Dehydrogenase (120-246) U/L Total Protein 6.3 (6.3-8.2) g/dL Albumin 3.6 (3.5-5.0) g/dL Globulin 2.7 (1.7-4.1) g/dL Albumin/Globulin Ratio 1.3 (1.0-2.8) Vitamin B12 (239-931) pg/mL Folate (2.76-20.0) ng/mL TSH (0.47-4.68) uIU/mL Ur Bilirubin Confirm (Negative) Ur Random Sodium (30-90) mmol/L Urine Creatinine mg/dL U Opiates 300ng/mL cut (Negative) Ur Oxycodone Screen (Negative) Urine Methadone Screen (Negative) Ur Barbiturates Screen (Negative) U Tricyclic Antidepress (Negative) Ur Phencyclidine Scrn (Negative) Ur Amphetamines Screen (Negative) U Methamphetamines Scrn (Negative) Ur MDMA Scrn (Ecstasy) (Negative) U Benzodiazepines Scrn (Negative) Urine Cocaine Screen (Negative) U Marijuana (THC) Screen (Negative) SARS-CoV-2 (PCR) (Negative) Blood Type Antibody Screen 10/16/22 10/16/22 10/16/22 Range/Units 14:18 14:18 14:18 WBC (4.5-11.0) X10^3/uL RBC (4.5-5.9) X10^6/uL Hgb (13.5-17.5) g/dL Hct (41-53) % MCV (80-100) fL MCH (26-34) PG MCHC (30-36) % RDW (11.6-14.8) % Plt Count (150-400) X10^3/uL Neut % (Auto) Lymph % (Auto) [place] % (Auto) Eos % (Auto) Baso % (Auto) Lymph # (Auto) [place] # (Auto) Baso # (Auto) Total Counted Seg Neutrophils % (38-70) % Band Neutrophils % (3-7) % Lymphocytes % (Manual) (25-45) % Monocytes % (Manual) (2-11) % Basophils % (Manual) (0-1) % Metamyelocytes % (-0) % Myelocytes % (-0) % Neutrophils # (Manual) (2092-0170) /uL RBC Morphology Anisocytosis Percent Retic 0.9 (0.9-2.6) % Sodium (137-145) mmol/L Potassium (3.4-5.1) mmol/L Chloride (98-107) mmol/L Carbon Dioxide (22-32) mmol/L BUN (9-20) mg/dL Creatinine (0.66-1.25) mg/dL Estimated GFR (>60) mL/min BUN/Creatinine Ratio (6-22) Glucose (70-100) mg/dL Lactate (0.7-2.1) mmol/L Uric Acid 14.6 H* (3.5-8.5) mg/dL Calcium (8.4-10.2) mg/dL Magnesium (1.6-2.3) mg/dL Erythropoietin (2.6-18.5) mIU/mL Total Bilirubin (0.2-1.3) mg/dL GGT 77 H (15-73) U/L AST (17-59) IU/L ALT (<50) IU/L Alkaline Phosphatase (38-126) U/L Ammonia (9-30) umol/L Lactate Dehydrogenase 1078 H (120-246) U/L Total Protein (6.3-8.2) g/dL Albumin (3.5-5.0) g/dL Globulin (1.7-4.1) g/dL Albumin/Globulin Ratio (1.0-2.8) Vitamin B12 > 1000 H (239-931) pg/mL Folate 14.5 (2.76-20.0) ng/mL TSH 1.02 (0.47-4.68) uIU/mL Ur Bilirubin Confirm (Negative) Ur Random Sodium (30-90) mmol/L Urine Creatinine mg/dL U Opiates 300ng/mL cut (Negative) Ur Oxycodone Screen (Negative) Urine Methadone Screen (Negative) Ur Barbiturates Screen (Negative) U Tricyclic Antidepress (Negative) Ur Phencyclidine Scrn (Negative) Ur Amphetamines Screen (Negative) U Methamphetamines Scrn (Negative) Ur MDMA Scrn (Ecstasy) (Negative) U Benzodiazepines Scrn (Negative) Urine Cocaine Screen (Negative) U Marijuana (THC) Screen (Negative) SARS-CoV-2 (PCR) (Negative) Blood Type Antibody Screen 10/16/22 10/16/22 10/16/22 Range/Units 20:22 22:12 22:12 WBC (4.5-11.0) X10^3/uL RBC (4.5-5.9) X10^6/uL Hgb (13.5-17.5) g/dL Hct (41-53) % MCV (80-100) fL MCH (26-34) PG MCHC (30-36) % RDW (11.6-14.8) % Plt Count (150-400) X10^3/uL Neut % (Auto) Lymph % (Auto) [place] % (Auto) Eos % (Auto) Baso % (Auto) Lymph # (Auto) [place] # (Auto) Baso # (Auto) Total Counted Seg Neutrophils % (38-70) % Band Neutrophils % (3-7) % Lymphocytes % (Manual) (25-45) % Monocytes % (Manual) (2-11) % Basophils % (Manual) (0-1) % Metamyelocytes % (-0) % Myelocytes % (-0) % Neutrophils # (Manual) (6318-9731) /uL RBC Morphology Anisocytosis Percent Retic (0.9-2.6) % Sodium (137-145) mmol/L Potassium (3.4-5.1) mmol/L Chloride (98-107) mmol/L Carbon Dioxide (22-32) mmol/L BUN (9-20) mg/dL Creatinine (0.66-1.25) mg/dL Estimated GFR (>60) mL/min BUN/Creatinine Ratio (6-22) Glucose (70-100) mg/dL Lactate (0.7-2.1) mmol/L Uric Acid (3.5-8.5) mg/dL Calcium (8.4-10.2) mg/dL Magnesium (1.6-2.3) mg/dL Erythropoietin 9.7 (2.6-18.5) mIU/mL Total Bilirubin (0.2-1.3) mg/dL GGT (15-73) U/L AST (17-59) IU/L ALT (<50) IU/L Alkaline Phosphatase (38-126) U/L Ammonia 35 H (9-30) umol/L Lactate Dehydrogenase (120-246) U/L Total Protein (6.3-8.2) g/dL Albumin (3.5-5.0) g/dL Globulin (1.7-4.1) g/dL Albumin/Globulin Ratio (1.0-2.8) Vitamin B12 (239-931) pg/mL Folate (2.76-20.0) ng/mL TSH (0.47-4.68) uIU/mL Ur Bilirubin Confirm (Negative) Ur Random Sodium (30-90) mmol/L Urine Creatinine mg/dL U Opiates 300ng/mL cut (Negative) Ur Oxycodone Screen (Negative) Urine Methadone Screen (Negative) Ur Barbiturates Screen (Negative) U Tricyclic Antidepress (Negative) Ur Phencyclidine Scrn (Negative) Ur Amphetamines Screen (Negative) U Methamphetamines Scrn (Negative) Ur MDMA Scrn (Ecstasy) (Negative) U Benzodiazepines Scrn (Negative) Urine Cocaine Screen (Negative) U Marijuana (THC) Screen (Negative) SARS-CoV-2 (PCR) Negative (Negative) Blood Type Antibody Screen 10/16/22 10/16/22 10/16/22 Range/Units 22:12 22:25 22:25 WBC (4.5-11.0) X10^3/uL RBC (4.5-5.9) X10^6/uL Hgb (13.5-17.5) g/dL Hct (41-53) % MCV (80-100) fL MCH (26-34) PG MCHC (30-36) % RDW (11.6-14.8) % Plt Count (150-400) X10^3/uL Neut % (Auto) Lymph % (Auto) [place] % (Auto) Eos % (Auto) Baso % (Auto) Lymph # (Auto) [place] # (Auto) Baso # (Auto) Total Counted Seg Neutrophils % (38-70) % Band Neutrophils % (3-7) % Lymphocytes % (Manual) (25-45) % Monocytes % (Manual) (2-11) % Basophils % (Manual) (0-1) % Metamyelocytes % (-0) % Myelocytes % (-0) % Neutrophils # (Manual) (8421-3934) /uL RBC Morphology Anisocytosis Percent Retic (0.9-2.6) % Sodium (137-145) mmol/L Potassium (3.4-5.1) mmol/L Chloride (98-107) mmol/L Carbon Dioxide (22-32) mmol/L BUN (9-20) mg/dL Creatinine (0.66-1.25) mg/dL Estimated GFR (>60) mL/min BUN/Creatinine Ratio (6-22) Glucose (70-100) mg/dL Lactate (0.7-2.1) mmol/L Uric Acid (3.5-8.5) mg/dL Calcium (8.4-10.2) mg/dL Magnesium (1.6-2.3) mg/dL Erythropoietin (2.6-18.5) mIU/mL Total Bilirubin (0.2-1.3) mg/dL GGT (15-73) U/L AST (17-59) IU/L ALT (<50) IU/L Alkaline Phosphatase (38-126) U/L Ammonia (9-30) umol/L Lactate Dehydrogenase (120-246) U/L Total Protein (6.3-8.2) g/dL Albumin (3.5-5.0) g/dL Globulin (1.7-4.1) g/dL Albumin/Globulin Ratio (1.0-2.8) Vitamin B12 (239-931) pg/mL Folate (2.76-20.0) ng/mL TSH (0.47-4.68) uIU/mL Ur Bilirubin Confirm (Negative) Ur Random Sodium 16 L (30-90) mmol/L Urine Creatinine 137.2 mg/dL U Opiates 300ng/mL cut Negative (Negative) Ur Oxycodone Screen Negative (Negative) Urine Methadone Screen Negative (Negative) Ur Barbiturates Screen Negative (Negative) U Tricyclic Antidepress Negative (Negative) Ur Phencyclidine Scrn Negative (Negative) Ur Amphetamines Screen Negative (Negative) U Methamphetamines Scrn Negative (Negative) Ur MDMA Scrn (Ecstasy) Negative (Negative) U Benzodiazepines Scrn Positive H (Negative) Urine Cocaine Screen Negative (Negative) U Marijuana (THC) Screen Positive H (Negative) SARS-CoV-2 (PCR) (Negative) Blood Type A Positive Antibody Screen Negative 10/16/22 10/17/22 10/17/22 Range/Units 22:25 04:00 04:00 WBC 95.4 H* (4.5-11.0) X10^3/uL RBC 2.46 L (4.5-5.9) X10^6/uL Hgb 7.2 L (13.5-17.5) g/dL Hct 23.8 L (41-53) % MCV 96.8 (80-100) fL MCH 29.1 (26-34) PG MCHC 30.0 (30-36) % RDW 16.2 H (11.6-14.8) % Plt Count 110 L (150-400) X10^3/uL Neut % (Auto) Not Reportable Lymph % (Auto) Not Reportable [place] % (Auto) Not Reportable Eos % (Auto) Not Reportable Baso % (Auto) Not Reportable Lymph # (Auto) Not Reportable [place] # (Auto) Not Reportable Baso # (Auto) Not Reportable Total Counted 100 Seg Neutrophils % 57.0 (38-70) % Band Neutrophils % 18.0 H (3-7) % Lymphocytes % (Manual) 3.0 L (25-45) % Monocytes % (Manual) (2-11) % Basophils % (Manual) 1.0 (0-1) % Metamyelocytes % 10.0 H (-0) % Myelocytes % 11.0 H (-0) % Neutrophils # (Manual) 08130 H (3212-1031) /uL RBC Morphology See below Anisocytosis 1+ H Percent Retic (0.9-2.6) % Sodium 136 L (137-145) mmol/L Potassium 5.8 H (3.4-5.1) mmol/L Chloride 111 H (98-107) mmol/L Carbon Dioxide 15 L (22-32) mmol/L BUN 48 H (9-20) mg/dL Creatinine 3.09 H (0.66-1.25) mg/dL Estimated GFR 24 L (>60) mL/min BUN/Creatinine Ratio 15.5 (6-22) Glucose 208 H (70-100) mg/dL Lactate (0.7-2.1) mmol/L Uric Acid (3.5-8.5) mg/dL Calcium 6.2 L* (8.4-10.2) mg/dL Magnesium (1.6-2.3) mg/dL Erythropoietin (2.6-18.5) mIU/mL Total Bilirubin 0.2 (0.2-1.3) mg/dL GGT (15-73) U/L AST 46 (17-59) IU/L ALT 29 (<50) IU/L Alkaline Phosphatase 119 (38-126) U/L Ammonia (9-30) umol/L Lactate Dehydrogenase (120-246) U/L Total Protein 5.2 L (6.3-8.2) g/dL Albumin 2.9 L (3.5-5.0) g/dL Globulin 2.3 (1.7-4.1) g/dL Albumin/Globulin Ratio 1.3 (1.0-2.8) Vitamin B12 (239-931) pg/mL Folate (2.76-20.0) ng/mL TSH (0.47-4.68) uIU/mL Ur Bilirubin Confirm Negative (Negative) Ur Random Sodium (30-90) mmol/L Urine Creatinine mg/dL U Opiates 300ng/mL cut (Negative) Ur Oxycodone Screen (Negative) Urine Methadone Screen (Negative) Ur Barbiturates Screen (Negative) U Tricyclic Antidepress (Negative) Ur Phencyclidine Scrn (Negative) Ur Amphetamines Screen (Negative) U Methamphetamines Scrn (Negative) Ur MDMA Scrn (Ecstasy) (Negative) U Benzodiazepines Scrn (Negative) Urine Cocaine Screen (Negative) U Marijuana (THC) Screen (Negative) SARS-CoV-2 (PCR) (Negative) Blood Type Antibody Screen 10/17/22 10/17/22 Range/Units 08:10 08:10 WBC 88.1 H* (4.5-11.0) X10^3/uL RBC 2.55 L (4.5-5.9) X10^6/uL Hgb 7.4 L (13.5-17.5) g/dL Hct 24.7 L (41-53) % MCV 96.7 (80-100) fL MCH 29.1 (26-34) PG MCHC 30.1 (30-36) % RDW 16.1 H (11.6-14.8) % Plt Count 109 L (150-400) X10^3/uL Neut % (Auto) Not Reportable Lymph % (Auto) Not Reportable [place] % (Auto) Not Reportable Eos % (Auto) Not Reportable Baso % (Auto) Not Reportable Lymph # (Auto) Not Reportable [place] # (Auto) Not Reportable Baso # (Auto) Not Reportable Total Counted 100 Seg Neutrophils % 68.0 (38-70) % Band Neutrophils % 13.0 H (3-7) % Lymphocytes % (Manual) 1.0 L (25-45) % Monocytes % (Manual) 1.0 L (2-11) % Basophils % (Manual) 1.0 (0-1) % Metamyelocytes % 11.0 H (-0) % Myelocytes % 5.0 H (-0) % Neutrophils # (Manual) 53132 H (0808-3472) /uL RBC Morphology See below Anisocytosis 1+ H Percent Retic (0.9-2.6) % Sodium 136 L (137-145) mmol/L Potassium 5.6 H (3.4-5.1) mmol/L Chloride 111 H (98-107) mmol/L Carbon Dioxide 16 L (22-32) mmol/L BUN 47 H (9-20) mg/dL Creatinine 3.00 H (0.66-1.25) mg/dL Estimated GFR 25 L (>60) mL/min BUN/Creatinine Ratio 15.7 (6-22) Glucose 157 H (70-100) mg/dL Lactate (0.7-2.1) mmol/L Uric Acid (3.5-8.5) mg/dL Calcium 6.4 L* (8.4-10.2) mg/dL Magnesium (1.6-2.3) mg/dL Erythropoietin (2.6-18.5) mIU/mL Total Bilirubin (0.2-1.3) mg/dL GGT (15-73) U/L AST (17-59) IU/L ALT (<50) IU/L Alkaline Phosphatase (38-126) U/L Ammonia (9-30) umol/L Lactate Dehydrogenase (120-246) U/L Total Protein (6.3-8.2) g/dL Albumin (3.5-5.0) g/dL Globulin (1.7-4.1) g/dL Albumin/Globulin Ratio (1.0-2.8) Vitamin B12 (239-931) pg/mL Folate (2.76-20.0) ng/mL TSH (0.47-4.68) uIU/mL Ur Bilirubin Confirm (Negative) Ur Random Sodium (30-90) mmol/L Urine Creatinine mg/dL U Opiates 300ng/mL cut (Negative) Ur Oxycodone Screen (Negative) Urine Methadone Screen (Negative) Ur Barbiturates Screen (Negative) U Tricyclic Antidepress (Negative) Ur Phencyclidine Scrn (Negative) Ur Amphetamines Screen (Negative) U Methamphetamines Scrn (Negative) Ur MDMA Scrn (Ecstasy) (Negative) U Benzodiazepines Scrn (Negative) Urine Cocaine Screen (Negative) U Marijuana (THC) Screen (Negative) SARS-CoV-2 (PCR) (Negative) Blood Type Antibody Screen Point of Care Testing Glucose POC 230 Urine Dip Bedside Urine Glucose Negative Bedside Urine Bilirubin + 1 Bedside Urine Ketone - Negative Urine Specific [place] 1.025 Bedside Urine Occult Blood - Negative Bedside Urine pH 6.0 Bedside Urine Protein +/- 15 Bedside Urine Urobilinogen - Negative Bedside Urine Nitrite - Negative Bedside Urine Leukocytes - Negative Esterase Point of care testing: Point of Care Testing Glucose POC 230 Urine Dip Bedside Urine Glucose Negative Bedside Urine Bilirubin + 1 Bedside Urine Ketone - Negative Urine Specific [place] 1.025 Bedside Urine Occult Blood - Negative Bedside Urine pH 6.0 Bedside Urine Protein +/- 15 Bedside Urine Urobilinogen - Negative Bedside Urine Nitrite - Negative Bedside Urine Leukocytes - Negative Esterase MDM Narrative Medical decision making narrative: [46] year old patient presents with persistent nausea and vomiting since starting oral chemotherapy Multiple etiologies for patient's symptoms considered including, but not limited to: [Dehydrated versus electrolyte abnormality] Prior Charts reviewed in our EMR Primary Historian: patient Labs reviewed and interpreted by myself: Imaging reviewed: Consultations: Patient's symptoms improved over duration of stay with above-stated therapies. Findings and discharge diagnosis discussed with patient/family followed by verbalization of understanding Return precautions discussed with patient/family whom verbalize understanding of diagnosis and plan <Jermaine Daly, DO - Last Filed: 10/17/22 18:12> Medical Records Medical records reviewed: Yes I reviewed the patient's medical records. Lab Data Lab results reviewed: Yes I reviewed the patient's lab results. Labs: Lab Results 10/16/22 10/16/22 10/16/22 Range/Units 14:18 14:18 14:18 WBC 144.0 H* (4.5-11.0) X10^3/uL RBC 2.83 L (4.5-5.9) X10^6/uL Hgb 8.4 L (13.5-17.5) g/dL Hct 27.4 L (41-53) % MCV 96.5 (80-100) fL MCH 29.6 (26-34) PG MCHC 30.7 (30-36) % RDW 16.1 H (11.6-14.8) % Plt Count 162 (150-400) X10^3/uL Neut % (Auto) Not Reportable Lymph % (Auto) Not Reportable [place] % (Auto) Not Reportable Eos % (Auto) Not Reportable Baso % (Auto) Not Reportable Lymph # (Auto) Not Reportable [place] # (Auto) Not Reportable Baso # (Auto) Not Reportable Total Counted 100 Seg Neutrophils % 47.0 (38-70) % Band Neutrophils % 20.0 H (3-7) % Lymphocytes % (Manual) 5.0 L (25-45) % Monocytes % (Manual) 4.0 (2-11) % Basophils % (Manual) 2.0 H (0-1) % Metamyelocytes % 5.0 H (-0) % Myelocytes % 17.0 H (-0) % Neutrophils # (Manual) 92743 H (6988-7568) /uL RBC Morphology Normal morphology Anisocytosis Percent Retic (0.9-2.6) % Sodium 139 (137-145) mmol/L Potassium 5.8 H (3.4-5.1) mmol/L Chloride 110 H (98-107) mmol/L Carbon Dioxide 17 L (22-32) mmol/L BUN 46 H (9-20) mg/dL Creatinine 3.48 H (0.66-1.25) mg/dL Estimated GFR 21 L (>60) mL/min BUN/Creatinine Ratio 13.2 (6-22) Glucose 120 H (70-100) mg/dL Lactate 0.7 (0.7-2.1) mmol/L Uric Acid (3.5-8.5) mg/dL Calcium 6.7 L (8.4-10.2) mg/dL Magnesium 2.6 H (1.6-2.3) mg/dL Erythropoietin (2.6-18.5) mIU/mL Total Bilirubin 0.4 (0.2-1.3) mg/dL GGT (15-73) U/L AST 61 H (17-59) IU/L ALT 33 (<50) IU/L Alkaline Phosphatase 150 H (38-126) U/L Ammonia (9-30) umol/L Lactate Dehydrogenase (120-246) U/L Total Protein 6.3 (6.3-8.2) g/dL Albumin 3.6 (3.5-5.0) g/dL Globulin 2.7 (1.7-4.1) g/dL Albumin/Globulin Ratio 1.3 (1.0-2.8) Vitamin B12 (239-931) pg/mL Folate (2.76-20.0) ng/mL TSH (0.47-4.68) uIU/mL Ur Bilirubin Confirm (Negative) Ur Random Sodium (30-90) mmol/L Urine Creatinine mg/dL U Opiates 300ng/mL cut (Negative) Ur Oxycodone Screen (Negative) Urine Methadone Screen (Negative) Ur Barbiturates Screen (Negative) U Tricyclic Antidepress (Negative) Ur Phencyclidine Scrn (Negative) Ur Amphetamines Screen (Negative) U Methamphetamines Scrn (Negative) Ur MDMA Scrn (Ecstasy) (Negative) U Benzodiazepines Scrn (Negative) Urine Cocaine Screen (Negative) U Marijuana (THC) Screen (Negative) SARS-CoV-2 (PCR) (Negative) Blood Type Antibody Screen 10/16/22 10/16/22 10/16/22 Range/Units 14:18 14:18 14:18 WBC (4.5-11.0) X10^3/uL RBC (4.5-5.9) X10^6/uL Hgb (13.5-17.5) g/dL Hct (41-53) % MCV (80-100) fL MCH (26-34) PG MCHC (30-36) % RDW (11.6-14.8) % Plt Count (150-400) X10^3/uL Neut % (Auto) Lymph % (Auto) [place] % (Auto) Eos % (Auto) Baso % (Auto) Lymph # (Auto) [place] # (Auto) Baso # (Auto) Total Counted Seg Neutrophils % (38-70) % Band Neutrophils % (3-7) % Lymphocytes % (Manual) (25-45) % Monocytes % (Manual) (2-11) % Basophils % (Manual) (0-1) % Metamyelocytes % (-0) % Myelocytes % (-0) % Neutrophils # (Manual) (6715-2786) /uL RBC Morphology Anisocytosis Percent Retic 0.9 (0.9-2.6) % Sodium (137-145) mmol/L Potassium (3.4-5.1) mmol/L Chloride (98-107) mmol/L Carbon Dioxide (22-32) mmol/L BUN (9-20) mg/dL Creatinine (0.66-1.25) mg/dL Estimated GFR (>60) mL/min BUN/Creatinine Ratio (6-22) Glucose (70-100) mg/dL Lactate (0.7-2.1) mmol/L Uric Acid 14.6 H* (3.5-8.5) mg/dL Calcium (8.4-10.2) mg/dL Magnesium (1.6-2.3) mg/dL Erythropoietin (2.6-18.5) mIU/mL Total Bilirubin (0.2-1.3) mg/dL GGT 77 H (15-73) U/L AST (17-59) IU/L ALT (<50) IU/L Alkaline Phosphatase (38-126) U/L Ammonia (9-30) umol/L Lactate Dehydrogenase 1078 H (120-246) U/L Total Protein (6.3-8.2) g/dL Albumin (3.5-5.0) g/dL Globulin (1.7-4.1) g/dL Albumin/Globulin Ratio (1.0-2.8) Vitamin B12 > 1000 H (239-931) pg/mL Folate 14.5 (2.76-20.0) ng/mL TSH 1.02 (0.47-4.68) uIU/mL Ur Bilirubin Confirm (Negative) Ur Random Sodium (30-90) mmol/L Urine Creatinine mg/dL U Opiates 300ng/mL cut (Negative) Ur Oxycodone Screen (Negative) Urine Methadone Screen (Negative) Ur Barbiturates Screen (Negative) U Tricyclic Antidepress (Negative) Ur Phencyclidine Scrn (Negative) Ur Amphetamines Screen (Negative) U Methamphetamines Scrn (Negative) Ur MDMA Scrn (Ecstasy) (Negative) U Benzodiazepines Scrn (Negative) Urine Cocaine Screen (Negative) U Marijuana (THC) Screen (Negative) SARS-CoV-2 (PCR) (Negative) Blood Type Antibody Screen 10/16/22 10/16/22 10/16/22 Range/Units 20:22 22:12 22:12 WBC (4.5-11.0) X10^3/uL RBC (4.5-5.9) X10^6/uL Hgb (13.5-17.5) g/dL Hct (41-53) % MCV (80-100) fL MCH (26-34) PG MCHC (30-36) % RDW (11.6-14.8) % Plt Count (150-400) X10^3/uL Neut % (Auto) Lymph % (Auto) [place] % (Auto) Eos % (Auto) Baso % (Auto) Lymph # (Auto) [place] # (Auto) Baso # (Auto) Total Counted Seg Neutrophils % (38-70) % Band Neutrophils % (3-7) % Lymphocytes % (Manual) (25-45) % Monocytes % (Manual) (2-11) % Basophils % (Manual) (0-1) % Metamyelocytes % (-0) % Myelocytes % (-0) % Neutrophils # (Manual) (2481-2207) /uL RBC Morphology Anisocytosis Percent Retic (0.9-2.6) % Sodium (137-145) mmol/L Potassium (3.4-5.1) mmol/L Chloride (98-107) mmol/L Carbon Dioxide (22-32) mmol/L BUN (9-20) mg/dL Creatinine (0.66-1.25) mg/dL Estimated GFR (>60) mL/min BUN/Creatinine Ratio (6-22) Glucose (70-100) mg/dL Lactate (0.7-2.1) mmol/L Uric Acid (3.5-8.5) mg/dL Calcium (8.4-10.2) mg/dL Magnesium (1.6-2.3) mg/dL Erythropoietin 9.7 (2.6-18.5) mIU/mL Total Bilirubin (0.2-1.3) mg/dL GGT (15-73) U/L AST (17-59) IU/L ALT (<50) IU/L Alkaline Phosphatase (38-126) U/L Ammonia 35 H (9-30) umol/L Lactate Dehydrogenase (120-246) U/L Total Protein (6.3-8.2) g/dL Albumin (3.5-5.0) g/dL Globulin (1.7-4.1) g/dL Albumin/Globulin Ratio (1.0-2.8) Vitamin B12 (239-931) pg/mL Folate (2.76-20.0) ng/mL TSH (0.47-4.68) uIU/mL Ur Bilirubin Confirm (Negative) Ur Random Sodium (30-90) mmol/L Urine Creatinine mg/dL U Opiates 300ng/mL cut (Negative) Ur Oxycodone Screen (Negative) Urine Methadone Screen (Negative) Ur Barbiturates Screen (Negative) U Tricyclic Antidepress (Negative) Ur Phencyclidine Scrn (Negative) Ur Amphetamines Screen (Negative) U Methamphetamines Scrn (Negative) Ur MDMA Scrn (Ecstasy) (Negative) U Benzodiazepines Scrn (Negative) Urine Cocaine Screen (Negative) U Marijuana (THC) Screen (Negative) SARS-CoV-2 (PCR) Negative (Negative) Blood Type Antibody Screen 10/16/22 10/16/22 10/16/22 Range/Units 22:12 22:25 22:25 WBC (4.5-11.0) X10^3/uL RBC (4.5-5.9) X10^6/uL Hgb (13.5-17.5) g/dL Hct (41-53) % MCV (80-100) fL MCH (26-34) PG MCHC (30-36) % RDW (11.6-14.8) % Plt Count (150-400) X10^3/uL Neut % (Auto) Lymph % (Auto) [place] % (Auto) Eos % (Auto) Baso % (Auto) Lymph # (Auto) [place] # (Auto) Baso # (Auto) Total Counted Seg Neutrophils % (38-70) % Band Neutrophils % (3-7) % Lymphocytes % (Manual) (25-45) % Monocytes % (Manual) (2-11) % Basophils % (Manual) (0-1) % Metamyelocytes % (-0) % Myelocytes % (-0) % Neutrophils # (Manual) (1543-0717) /uL RBC Morphology Anisocytosis Percent Retic (0.9-2.6) % Sodium (137-145) mmol/L Potassium (3.4-5.1) mmol/L Chloride (98-107) mmol/L Carbon Dioxide (22-32) mmol/L BUN (9-20) mg/dL Creatinine (0.66-1.25) mg/dL Estimated GFR (>60) mL/min BUN/Creatinine Ratio (6-22) Glucose (70-100) mg/dL Lactate (0.7-2.1) mmol/L Uric Acid (3.5-8.5) mg/dL Calcium (8.4-10.2) mg/dL Magnesium (1.6-2.3) mg/dL Erythropoietin (2.6-18.5) mIU/mL Total Bilirubin (0.2-1.3) mg/dL GGT (15-73) U/L AST (17-59) IU/L ALT (<50) IU/L Alkaline Phosphatase (38-126) U/L Ammonia (9-30) umol/L Lactate Dehydrogenase (120-246) U/L Total Protein (6.3-8.2) g/dL Albumin (3.5-5.0) g/dL Globulin (1.7-4.1) g/dL Albumin/Globulin Ratio (1.0-2.8) Vitamin B12 (239-931) pg/mL Folate (2.76-20.0) ng/mL TSH (0.47-4.68) uIU/mL Ur Bilirubin Confirm (Negative) Ur Random Sodium 16 L (30-90) mmol/L Urine Creatinine 137.2 mg/dL U Opiates 300ng/mL cut Negative (Negative) Ur Oxycodone Screen Negative (Negative) Urine Methadone Screen Negative (Negative) Ur Barbiturates Screen Negative (Negative) U Tricyclic Antidepress Negative (Negative) Ur Phencyclidine Scrn Negative (Negative) Ur Amphetamines Screen Negative (Negative) U Methamphetamines Scrn Negative (Negative) Ur MDMA Scrn (Ecstasy) Negative (Negative) U Benzodiazepines Scrn Positive H (Negative) Urine Cocaine Screen Negative (Negative) U Marijuana (THC) Screen Positive H (Negative) SARS-CoV-2 (PCR) (Negative) Blood Type A Positive Antibody Screen Negative 10/16/22 10/17/22 10/17/22 Range/Units 22:25 04:00 04:00 WBC 95.4 H* (4.5-11.0) X10^3/uL RBC 2.46 L (4.5-5.9) X10^6/uL Hgb 7.2 L (13.5-17.5) g/dL Hct 23.8 L (41-53) % MCV 96.8 (80-100) fL MCH 29.1 (26-34) PG MCHC 30.0 (30-36) % RDW 16.2 H (11.6-14.8) % Plt Count 110 L (150-400) X10^3/uL Neut % (Auto) Not Reportable Lymph % (Auto) Not Reportable [place] % (Auto) Not Reportable Eos % (Auto) Not Reportable Baso % (Auto) Not Reportable Lymph # (Auto) Not Reportable [place] # (Auto) Not Reportable Baso # (Auto) Not Reportable Total Counted 100 Seg Neutrophils % 57.0 (38-70) % Band Neutrophils % 18.0 H (3-7) % Lymphocytes % (Manual) 3.0 L (25-45) % Monocytes % (Manual) (2-11) % Basophils % (Manual) 1.0 (0-1) % Metamyelocytes % 10.0 H (-0) % Myelocytes % 11.0 H (-0) % Neutrophils # (Manual) 45228 H (3887-6111) /uL RBC Morphology See below Anisocytosis 1+ H Percent Retic (0.9-2.6) % Sodium 136 L (137-145) mmol/L Potassium 5.8 H (3.4-5.1) mmol/L Chloride 111 H (98-107) mmol/L Carbon Dioxide 15 L (22-32) mmol/L BUN 48 H (9-20) mg/dL Creatinine 3.09 H (0.66-1.25) mg/dL Estimated GFR 24 L (>60) mL/min BUN/Creatinine Ratio 15.5 (6-22) Glucose 208 H (70-100) mg/dL Lactate (0.7-2.1) mmol/L Uric Acid (3.5-8.5) mg/dL Calcium 6.2 L* (8.4-10.2) mg/dL Magnesium (1.6-2.3) mg/dL Erythropoietin (2.6-18.5) mIU/mL Total Bilirubin 0.2 (0.2-1.3) mg/dL GGT (15-73) U/L AST 46 (17-59) IU/L ALT 29 (<50) IU/L Alkaline Phosphatase 119 (38-126) U/L Ammonia (9-30) umol/L Lactate Dehydrogenase (120-246) U/L Total Protein 5.2 L (6.3-8.2) g/dL Albumin 2.9 L (3.5-5.0) g/dL Globulin 2.3 (1.7-4.1) g/dL Albumin/Globulin Ratio 1.3 (1.0-2.8) Vitamin B12 (239-931) pg/mL Folate (2.76-20.0) ng/mL TSH (0.47-4.68) uIU/mL Ur Bilirubin Confirm Negative (Negative) Ur Random Sodium (30-90) mmol/L Urine Creatinine mg/dL U Opiates 300ng/mL cut (Negative) Ur Oxycodone Screen (Negative) Urine Methadone Screen (Negative) Ur Barbiturates Screen (Negative) U Tricyclic Antidepress (Negative) Ur Phencyclidine Scrn (Negative) Ur Amphetamines Screen (Negative) U Methamphetamines Scrn (Negative) Ur MDMA Scrn (Ecstasy) (Negative) U Benzodiazepines Scrn (Negative) Urine Cocaine Screen (Negative) U Marijuana (THC) Screen (Negative) SARS-CoV-2 (PCR) (Negative) Blood Type Antibody Screen 10/17/22 10/17/22 Range/Units 08:10 08:10 WBC 88.1 H* (4.5-11.0) X10^3/uL RBC 2.55 L (4.5-5.9) X10^6/uL Hgb 7.4 L (13.5-17.5) g/dL Hct 24.7 L (41-53) % MCV 96.7 (80-100) fL MCH 29.1 (26-34) PG MCHC 30.1 (30-36) % RDW 16.1 H (11.6-14.8) % Plt Count 109 L (150-400) X10^3/uL Neut % (Auto) Not Reportable Lymph % (Auto) Not Reportable [place] % (Auto) Not Reportable Eos % (Auto) Not Reportable Baso % (Auto) Not Reportable Lymph # (Auto) Not Reportable [place] # (Auto) Not Reportable Baso # (Auto) Not Reportable Total Counted 100 Seg Neutrophils % 68.0 (38-70) % Band Neutrophils % 13.0 H (3-7) % Lymphocytes % (Manual) 1.0 L (25-45) % Monocytes % (Manual) 1.0 L (2-11) % Basophils % (Manual) 1.0 (0-1) % Metamyelocytes % 11.0 H (-0) % Myelocytes % 5.0 H (-0) % Neutrophils # (Manual) 09399 H (6754-6848) /uL RBC Morphology See below Anisocytosis 1+ H Percent Retic (0.9-2.6) % Sodium 136 L (137-145) mmol/L Potassium 5.6 H (3.4-5.1) mmol/L Chloride 111 H (98-107) mmol/L Carbon Dioxide 16 L (22-32) mmol/L BUN 47 H (9-20) mg/dL Creatinine 3.00 H (0.66-1.25) mg/dL Estimated GFR 25 L (>60) mL/min BUN/Creatinine Ratio 15.7 (6-22) Glucose 157 H (70-100) mg/dL Lactate (0.7-2.1) mmol/L Uric Acid (3.5-8.5) mg/dL Calcium 6.4 L* (8.4-10.2) mg/dL Magnesium (1.6-2.3) mg/dL Erythropoietin (2.6-18.5) mIU/mL Total Bilirubin (0.2-1.3) mg/dL GGT (15-73) U/L AST (17-59) IU/L ALT (<50) IU/L Alkaline Phosphatase (38-126) U/L Ammonia (9-30) umol/L Lactate Dehydrogenase (120-246) U/L Total Protein (6.3-8.2) g/dL Albumin (3.5-5.0) g/dL Globulin (1.7-4.1) g/dL Albumin/Globulin Ratio (1.0-2.8) Vitamin B12 (239-931) pg/mL Folate (2.76-20.0) ng/mL TSH (0.47-4.68) uIU/mL Ur Bilirubin Confirm (Negative) Ur Random Sodium (30-90) mmol/L Urine Creatinine mg/dL U Opiates 300ng/mL cut (Negative) Ur Oxycodone Screen (Negative) Urine Methadone Screen (Negative) Ur Barbiturates Screen (Negative) U Tricyclic Antidepress (Negative) Ur Phencyclidine Scrn (Negative) Ur Amphetamines Screen (Negative) U Methamphetamines Scrn (Negative) Ur MDMA Scrn (Ecstasy) (Negative) U Benzodiazepines Scrn (Negative) Urine Cocaine Screen (Negative) U Marijuana (THC) Screen (Negative) SARS-CoV-2 (PCR) (Negative) Blood Type Antibody Screen Point of Care Testing Glucose POC 230 Urine Dip Bedside Urine Glucose Negative Bedside Urine Bilirubin + 1 Bedside Urine Ketone - Negative Urine Specific [place] 1.025 Bedside Urine Occult Blood - Negative Bedside Urine pH 6.0 Bedside Urine Protein +/- 15 Bedside Urine Urobilinogen - Negative Bedside Urine Nitrite - Negative Bedside Urine Leukocytes - Negative Esterase Point of care testing: Point of Care Testing Glucose POC 230 Urine Dip Bedside Urine Glucose Negative Bedside Urine Bilirubin + 1 Bedside Urine Ketone - Negative Urine Specific [place] 1.025 Bedside Urine Occult Blood - Negative Bedside Urine pH 6.0 Bedside Urine Protein +/- 15 Bedside Urine Urobilinogen - Negative Bedside Urine Nitrite - Negative Bedside Urine Leukocytes - Negative Esterase MDM Narrative Medical decision making narrative: [46] year old patient presents with persistent nausea and vomiting since starting oral chemotherapy Multiple etiologies for patient's symptoms considered including, but not limited to: [Dehydrated versus electrolyte abnormality] Prior Charts reviewed in our EMR Primary Historian: patient Dr Daly: Received turned over. Review patient's history and physical and workup up to this point. Dr. Gomez was able to speak with Dr. burden who is the patient's primary oncologist. The concern was the patient's elevated white blood cell count but also his acute kidney injury in the concern for Leukostasis. He recommended the patient be transferred to the [facility]. He also recommended giving the patient 2 g of hydroxyurea. I then discussed the case with Dr. Jacques who is the leukemia attending on-call the [facility]. He stated that he did not feel necessarily that the patient needed to be transferred. He recommended hydration. Also recommended continuing the hydroxyurea. Checking his labs for concern of potential anemia because the hydroxyurea and potentially needing a blood transfusion. He felt that most likely his labs would improve with the hydroxyurea and his oral chemotherapy and also hydration. I then discussed the case with Dr. Singh the on-call oncologist at [facility] who stated that he agreed that the patient could be transferred to their facility and they could continue with the fluid hydration and oral chemotherapy. He also recommended several blood tests which I did order per his recommendation. I then discussed the case with Dr. Shay on-call nephrology who agreed to see the patient in transfer but did not feel that there was need for emergent dialysis. I then discuss the case with Dr. Keita who was the hospitalist on-call at [facility] who was uncomfortable taking the patient in transfer because the patient's original oncologist felt that he needed transfer to the [facility]. She stated that she would be willing to take the patient in transfer if his oncologist okay the transfer. Fena is 0.3% which would be consistent with a prerenal process. Despite what is in his medical record he states he only takes 20 units of Lantus in the morning. He then does use a sliding scale but only takes any short-acting insulin if his blood sugars greater than 250. He did confirm that he takes his Lantus in the morning and not at night This hospital does not have Dasatinib on formulary. Patient is contacting family members to have them bring this medication and so that he can take his home medication on a daily basis. Care turned over to Dr. Coy leonardo continue to observe until disposition. <Bre Cespedes, DO - Last Filed: 10/17/22 14:29> Lab Data Labs: Lab Results 10/16/22 10/16/22 10/16/22 Range/Units 14:18 14:18 14:18 WBC 144.0 H* (4.5-11.0) X10^3/uL RBC 2.83 L (4.5-5.9) X10^6/uL Hgb 8.4 L (13.5-17.5) g/dL Hct 27.4 L (41-53) % MCV 96.5 (80-100) fL MCH 29.6 (26-34) PG MCHC 30.7 (30-36) % RDW 16.1 H (11.6-14.8) % Plt Count 162 (150-400) X10^3/uL Neut % (Auto) Not Reportable Lymph % (Auto) Not Reportable [place] % (Auto) Not Reportable Eos % (Auto) Not Reportable Baso % (Auto) Not Reportable Lymph # (Auto) Not Reportable [place] # (Auto) Not Reportable Baso # (Auto) Not Reportable Total Counted 100 Seg Neutrophils % 47.0 (38-70) % Band Neutrophils % 20.0 H (3-7) % Lymphocytes % (Manual) 5.0 L (25-45) % Monocytes % (Manual) 4.0 (2-11) % Basophils % (Manual) 2.0 H (0-1) % Metamyelocytes % 5.0 H (-0) % Myelocytes % 17.0 H (-0) % Neutrophils # (Manual) 87859 H (9882-6783) /uL RBC Morphology Normal morphology Anisocytosis Percent Retic (0.9-2.6) % Sodium 139 (137-145) mmol/L Potassium 5.8 H (3.4-5.1) mmol/L Chloride 110 H (98-107) mmol/L Carbon Dioxide 17 L (22-32) mmol/L BUN 46 H (9-20) mg/dL Creatinine 3.48 H (0.66-1.25) mg/dL Estimated GFR 21 L (>60) mL/min BUN/Creatinine Ratio 13.2 (6-22) Glucose 120 H (70-100) mg/dL Lactate 0.7 (0.7-2.1) mmol/L Uric Acid (3.5-8.5) mg/dL Calcium 6.7 L (8.4-10.2) mg/dL Magnesium 2.6 H (1.6-2.3) mg/dL Erythropoietin (2.6-18.5) mIU/mL Total Bilirubin 0.4 (0.2-1.3) mg/dL GGT (15-73) U/L AST 61 H (17-59) IU/L ALT 33 (<50) IU/L Alkaline Phosphatase 150 H (38-126) U/L Ammonia (9-30) umol/L Lactate Dehydrogenase (120-246) U/L Total Protein 6.3 (6.3-8.2) g/dL Albumin 3.6 (3.5-5.0) g/dL Globulin 2.7 (1.7-4.1) g/dL Albumin/Globulin Ratio 1.3 (1.0-2.8) Vitamin B12 (239-931) pg/mL Folate (2.76-20.0) ng/mL TSH (0.47-4.68) uIU/mL Ur Bilirubin Confirm (Negative) Ur Random Sodium (30-90) mmol/L Urine Creatinine mg/dL U Opiates 300ng/mL cut (Negative) Ur Oxycodone Screen (Negative) Urine Methadone Screen (Negative) Ur Barbiturates Screen (Negative) U Tricyclic Antidepress (Negative) Ur Phencyclidine Scrn (Negative) Ur Amphetamines Screen (Negative) U Methamphetamines Scrn (Negative) Ur MDMA Scrn (Ecstasy) (Negative) U Benzodiazepines Scrn (Negative) Urine Cocaine Screen (Negative) U Marijuana (THC) Screen (Negative) SARS-CoV-2 (PCR) (Negative) Blood Type Antibody Screen 10/16/22 10/16/22 10/16/22 Range/Units 14:18 14:18 14:18 WBC (4.5-11.0) X10^3/uL RBC (4.5-5.9) X10^6/uL Hgb (13.5-17.5) g/dL Hct (41-53) % MCV (80-100) fL MCH (26-34) PG MCHC (30-36) % RDW (11.6-14.8) % Plt Count (150-400) X10^3/uL Neut % (Auto) Lymph % (Auto) [place] % (Auto) Eos % (Auto) Baso % (Auto) Lymph # (Auto) [place] # (Auto) Baso # (Auto) Total Counted Seg Neutrophils % (38-70) % Band Neutrophils % (3-7) % Lymphocytes % (Manual) (25-45) % Monocytes % (Manual) (2-11) % Basophils % (Manual) (0-1) % Metamyelocytes % (-0) % Myelocytes % (-0) % Neutrophils # (Manual) (1752-8632) /uL RBC Morphology Anisocytosis Percent Retic 0.9 (0.9-2.6) % Sodium (137-145) mmol/L Potassium (3.4-5.1) mmol/L Chloride (98-107) mmol/L Carbon Dioxide (22-32) mmol/L BUN (9-20) mg/dL Creatinine (0.66-1.25) mg/dL Estimated GFR (>60) mL/min BUN/Creatinine Ratio (6-22) Glucose (70-100) mg/dL Lactate (0.7-2.1) mmol/L Uric Acid 14.6 H* (3.5-8.5) mg/dL Calcium (8.4-10.2) mg/dL Magnesium (1.6-2.3) mg/dL Erythropoietin (2.6-18.5) mIU/mL Total Bilirubin (0.2-1.3) mg/dL GGT 77 H (15-73) U/L AST (17-59) IU/L ALT (<50) IU/L Alkaline Phosphatase (38-126) U/L Ammonia (9-30) umol/L Lactate Dehydrogenase 1078 H (120-246) U/L Total Protein (6.3-8.2) g/dL Albumin (3.5-5.0) g/dL Globulin (1.7-4.1) g/dL Albumin/Globulin Ratio (1.0-2.8) Vitamin B12 > 1000 H (239-931) pg/mL Folate 14.5 (2.76-20.0) ng/mL TSH 1.02 (0.47-4.68) uIU/mL Ur Bilirubin Confirm (Negative) Ur Random Sodium (30-90) mmol/L Urine Creatinine mg/dL U Opiates 300ng/mL cut (Negative) Ur Oxycodone Screen (Negative) Urine Methadone Screen (Negative) Ur Barbiturates Screen (Negative) U Tricyclic Antidepress (Negative) Ur Phencyclidine Scrn (Negative) Ur Amphetamines Screen (Negative) U Methamphetamines Scrn (Negative) Ur MDMA Scrn (Ecstasy) (Negative) U Benzodiazepines Scrn (Negative) Urine Cocaine Screen (Negative) U Marijuana (THC) Screen (Negative) SARS-CoV-2 (PCR) (Negative) Blood Type Antibody Screen 10/16/22 10/16/22 10/16/22 Range/Units 20:22 22:12 22:12 WBC (4.5-11.0) X10^3/uL RBC (4.5-5.9) X10^6/uL Hgb (13.5-17.5) g/dL Hct (41-53) % MCV (80-100) fL MCH (26-34) PG MCHC (30-36) % RDW (11.6-14.8) % Plt Count (150-400) X10^3/uL Neut % (Auto) Lymph % (Auto) [place] % (Auto) Eos % (Auto) Baso % (Auto) Lymph # (Auto) [place] # (Auto) Baso # (Auto) Total Counted Seg Neutrophils % (38-70) % Band Neutrophils % (3-7) % Lymphocytes % (Manual) (25-45) % Monocytes % (Manual) (2-11) % Basophils % (Manual) (0-1) % Metamyelocytes % (-0) % Myelocytes % (-0) % Neutrophils # (Manual) (6868-3461) /uL RBC Morphology Anisocytosis Percent Retic (0.9-2.6) % Sodium (137-145) mmol/L Potassium (3.4-5.1) mmol/L Chloride (98-107) mmol/L Carbon Dioxide (22-32) mmol/L BUN (9-20) mg/dL Creatinine (0.66-1.25) mg/dL Estimated GFR (>60) mL/min BUN/Creatinine Ratio (6-22) Glucose (70-100) mg/dL Lactate (0.7-2.1) mmol/L Uric Acid (3.5-8.5) mg/dL Calcium (8.4-10.2) mg/dL Magnesium (1.6-2.3) mg/dL Erythropoietin 9.7 (2.6-18.5) mIU/mL Total Bilirubin (0.2-1.3) mg/dL GGT (15-73) U/L AST (17-59) IU/L ALT (<50) IU/L Alkaline Phosphatase (38-126) U/L Ammonia 35 H (9-30) umol/L Lactate Dehydrogenase (120-246) U/L Total Protein (6.3-8.2) g/dL Albumin (3.5-5.0) g/dL Globulin (1.7-4.1) g/dL Albumin/Globulin Ratio (1.0-2.8) Vitamin B12 (239-931) pg/mL Folate (2.76-20.0) ng/mL TSH (0.47-4.68) uIU/mL Ur Bilirubin Confirm (Negative) Ur Random Sodium (30-90) mmol/L Urine Creatinine mg/dL U Opiates 300ng/mL cut (Negative) Ur Oxycodone Screen (Negative) Urine Methadone Screen (Negative) Ur Barbiturates Screen (Negative) U Tricyclic Antidepress (Negative) Ur Phencyclidine Scrn (Negative) Ur Amphetamines Screen (Negative) U Methamphetamines Scrn (Negative) Ur MDMA Scrn (Ecstasy) (Negative) U Benzodiazepines Scrn (Negative) Urine Cocaine Screen (Negative) U Marijuana (THC) Screen (Negative) SARS-CoV-2 (PCR) Negative (Negative) Blood Type Antibody Screen 10/16/22 10/16/22 10/16/22 Range/Units 22:12 22:25 22:25 WBC (4.5-11.0) X10^3/uL RBC (4.5-5.9) X10^6/uL Hgb (13.5-17.5) g/dL Hct (41-53) % MCV (80-100) fL MCH (26-34) PG MCHC (30-36) % RDW (11.6-14.8) % Plt Count (150-400) X10^3/uL Neut % (Auto) Lymph % (Auto) [place] % (Auto) Eos % (Auto) Baso % (Auto) Lymph # (Auto) [place] # (Auto) Baso # (Auto) Total Counted Seg Neutrophils % (38-70) % Band Neutrophils % (3-7) % Lymphocytes % (Manual) (25-45) % Monocytes % (Manual) (2-11) % Basophils % (Manual) (0-1) % Metamyelocytes % (-0) % Myelocytes % (-0) % Neutrophils # (Manual) (1370-6165) /uL RBC Morphology Anisocytosis Percent Retic (0.9-2.6) % Sodium (137-145) mmol/L Potassium (3.4-5.1) mmol/L Chloride (98-107) mmol/L Carbon Dioxide (22-32) mmol/L BUN (9-20) mg/dL Creatinine (0.66-1.25) mg/dL Estimated GFR (>60) mL/min BUN/Creatinine Ratio (6-22) Glucose (70-100) mg/dL Lactate (0.7-2.1) mmol/L Uric Acid (3.5-8.5) mg/dL Calcium (8.4-10.2) mg/dL Magnesium (1.6-2.3) mg/dL Erythropoietin (2.6-18.5) mIU/mL Total Bilirubin (0.2-1.3) mg/dL GGT (15-73) U/L AST (17-59) IU/L ALT (<50) IU/L Alkaline Phosphatase (38-126) U/L Ammonia (9-30) umol/L Lactate Dehydrogenase (120-246) U/L Total Protein (6.3-8.2) g/dL Albumin (3.5-5.0) g/dL Globulin (1.7-4.1) g/dL Albumin/Globulin Ratio (1.0-2.8) Vitamin B12 (239-931) pg/mL Folate (2.76-20.0) ng/mL TSH (0.47-4.68) uIU/mL Ur Bilirubin Confirm (Negative) Ur Random Sodium 16 L (30-90) mmol/L Urine Creatinine 137.2 mg/dL U Opiates 300ng/mL cut Negative (Negative) Ur Oxycodone Screen Negative (Negative) Urine Methadone Screen Negative (Negative) Ur Barbiturates Screen Negative (Negative) U Tricyclic Antidepress Negative (Negative) Ur Phencyclidine Scrn Negative (Negative) Ur Amphetamines Screen Negative (Negative) U Methamphetamines Scrn Negative (Negative) Ur MDMA Scrn (Ecstasy) Negative (Negative) U Benzodiazepines Scrn Positive H (Negative) Urine Cocaine Screen Negative (Negative) U Marijuana (THC) Screen Positive H (Negative) SARS-CoV-2 (PCR) (Negative) Blood Type A Positive Antibody Screen Negative 10/16/22 10/17/22 10/17/22 Range/Units 22:25 04:00 04:00 WBC 95.4 H* (4.5-11.0) X10^3/uL RBC 2.46 L (4.5-5.9) X10^6/uL Hgb 7.2 L (13.5-17.5) g/dL Hct 23.8 L (41-53) % MCV 96.8 (80-100) fL MCH 29.1 (26-34) PG MCHC 30.0 (30-36) % RDW 16.2 H (11.6-14.8) % Plt Count 110 L (150-400) X10^3/uL Neut % (Auto) Not Reportable Lymph % (Auto) Not Reportable [place] % (Auto) Not Reportable Eos % (Auto) Not Reportable Baso % (Auto) Not Reportable Lymph # (Auto) Not Reportable [place] # (Auto) Not Reportable Baso # (Auto) Not Reportable Total Counted 100 Seg Neutrophils % 57.0 (38-70) % Band Neutrophils % 18.0 H (3-7) % Lymphocytes % (Manual) 3.0 L (25-45) % Monocytes % (Manual) (2-11) % Basophils % (Manual) 1.0 (0-1) % Metamyelocytes % 10.0 H (-0) % Myelocytes % 11.0 H (-0) % Neutrophils # (Manual) 48027 H (6573-2474) /uL RBC Morphology See below Anisocytosis 1+ H Percent Retic (0.9-2.6) % Sodium 136 L (137-145) mmol/L Potassium 5.8 H (3.4-5.1) mmol/L Chloride 111 H (98-107) mmol/L Carbon Dioxide 15 L (22-32) mmol/L BUN 48 H (9-20) mg/dL Creatinine 3.09 H (0.66-1.25) mg/dL Estimated GFR 24 L (>60) mL/min BUN/Creatinine Ratio 15.5 (6-22) Glucose 208 H (70-100) mg/dL Lactate (0.7-2.1) mmol/L Uric Acid (3.5-8.5) mg/dL Calcium 6.2 L* (8.4-10.2) mg/dL Magnesium (1.6-2.3) mg/dL Erythropoietin (2.6-18.5) mIU/mL Total Bilirubin 0.2 (0.2-1.3) mg/dL GGT (15-73) U/L AST 46 (17-59) IU/L ALT 29 (<50) IU/L Alkaline Phosphatase 119 (38-126) U/L Ammonia (9-30) umol/L Lactate Dehydrogenase (120-246) U/L Total Protein 5.2 L (6.3-8.2) g/dL Albumin 2.9 L (3.5-5.0) g/dL Globulin 2.3 (1.7-4.1) g/dL Albumin/Globulin Ratio 1.3 (1.0-2.8) Vitamin B12 (239-931) pg/mL Folate (2.76-20.0) ng/mL TSH (0.47-4.68) uIU/mL Ur Bilirubin Confirm Negative (Negative) Ur Random Sodium (30-90) mmol/L Urine Creatinine mg/dL U Opiates 300ng/mL cut (Negative) Ur Oxycodone Screen (Negative) Urine Methadone Screen (Negative) Ur Barbiturates Screen (Negative) U Tricyclic Antidepress (Negative) Ur Phencyclidine Scrn (Negative) Ur Amphetamines Screen (Negative) U Methamphetamines Scrn (Negative) Ur MDMA Scrn (Ecstasy) (Negative) U Benzodiazepines Scrn (Negative) Urine Cocaine Screen (Negative) U Marijuana (THC) Screen (Negative) SARS-CoV-2 (PCR) (Negative) Blood Type Antibody Screen 10/17/22 10/17/22 Range/Units 08:10 08:10 WBC 88.1 H* (4.5-11.0) X10^3/uL RBC 2.55 L (4.5-5.9) X10^6/uL Hgb 7.4 L (13.5-17.5) g/dL Hct 24.7 L (41-53) % MCV 96.7 (80-100) fL MCH 29.1 (26-34) PG MCHC 30.1 (30-36) % RDW 16.1 H (11.6-14.8) % Plt Count 109 L (150-400) X10^3/uL Neut % (Auto) Not Reportable Lymph % (Auto) Not Reportable [place] % (Auto) Not Reportable Eos % (Auto) Not Reportable Baso % (Auto) Not Reportable Lymph # (Auto) Not Reportable [place] # (Auto) Not Reportable Baso # (Auto) Not Reportable Total Counted 100 Seg Neutrophils % 68.0 (38-70) % Band Neutrophils % 13.0 H (3-7) % Lymphocytes % (Manual) 1.0 L (25-45) % Monocytes % (Manual) 1.0 L (2-11) % Basophils % (Manual) 1.0 (0-1) % Metamyelocytes % 11.0 H (-0) % Myelocytes % 5.0 H (-0) % Neutrophils # (Manual) 40098 H (9835-9417) /uL RBC Morphology See below Anisocytosis 1+ H Percent Retic (0.9-2.6) % Sodium 136 L (137-145) mmol/L Potassium 5.6 H (3.4-5.1) mmol/L Chloride 111 H (98-107) mmol/L Carbon Dioxide 16 L (22-32) mmol/L BUN 47 H (9-20) mg/dL Creatinine 3.00 H (0.66-1.25) mg/dL Estimated GFR 25 L (>60) mL/min BUN/Creatinine Ratio 15.7 (6-22) Glucose 157 H (70-100) mg/dL Lactate (0.7-2.1) mmol/L Uric Acid (3.5-8.5) mg/dL Calcium 6.4 L* (8.4-10.2) mg/dL Magnesium (1.6-2.3) mg/dL Erythropoietin (2.6-18.5) mIU/mL Total Bilirubin (0.2-1.3) mg/dL GGT (15-73) U/L AST (17-59) IU/L ALT (<50) IU/L Alkaline Phosphatase (38-126) U/L Ammonia (9-30) umol/L Lactate Dehydrogenase (120-246) U/L Total Protein (6.3-8.2) g/dL Albumin (3.5-5.0) g/dL Globulin (1.7-4.1) g/dL Albumin/Globulin Ratio (1.0-2.8) Vitamin B12 (239-931) pg/mL Folate (2.76-20.0) ng/mL TSH (0.47-4.68) uIU/mL Ur Bilirubin Confirm (Negative) Ur Random Sodium (30-90) mmol/L Urine Creatinine mg/dL U Opiates 300ng/mL cut (Negative) Ur Oxycodone Screen (Negative) Urine Methadone Screen (Negative) Ur Barbiturates Screen (Negative) U Tricyclic Antidepress (Negative) Ur Phencyclidine Scrn (Negative) Ur Amphetamines Screen (Negative) U Methamphetamines Scrn (Negative) Ur MDMA Scrn (Ecstasy) (Negative) U Benzodiazepines Scrn (Negative) Urine Cocaine Screen (Negative) U Marijuana (THC) Screen (Negative) SARS-CoV-2 (PCR) (Negative) Blood Type Antibody Screen Point of Care Testing Glucose POC 230 Urine Dip Bedside Urine Glucose Negative Bedside Urine Bilirubin + 1 Bedside Urine Ketone - Negative Urine Specific [place] 1.025 Bedside Urine Occult Blood - Negative Bedside Urine pH 6.0 Bedside Urine Protein +/- 15 Bedside Urine Urobilinogen - Negative Bedside Urine Nitrite - Negative Bedside Urine Leukocytes - Negative Esterase Point of care testing: Point of Care Testing Glucose POC 230 Urine Dip Bedside Urine Glucose Negative Bedside Urine Bilirubin + 1 Bedside Urine Ketone - Negative Urine Specific [place] 1.025 Bedside Urine Occult Blood - Negative Bedside Urine pH 6.0 Bedside Urine Protein +/- 15 Bedside Urine Urobilinogen - Negative Bedside Urine Nitrite - Negative Bedside Urine Leukocytes - Negative Esterase MDM Narrative Medical decision making narrative: [46] year old patient presents with persistent nausea and vomiting since starting oral chemotherapy Multiple etiologies for patient's symptoms considered including, but not limited to: [Dehydrated versus electrolyte abnormality] Prior Charts reviewed in our EMR Primary Historian: patient Dr Daly: Received turned over. Review patient's history and physical and workup up to this point. Dr. Gomez was able to speak with Dr. burden who is the patient's primary oncologist. The concern was the patient's elevated white blood cell count but also his acute kidney injury in the concern for Leukostasis. He recommended the patient be transferred to the [facility]. He also recommended giving the patient 2 g of hydroxyurea. I then discussed the case with Dr. Jacques who is the leukemia attending on-call the [facility]. He stated that he did not feel necessarily that the patient needed to be transferred. He recommended hydration. Also recommended continuing the hydroxyurea. Checking his labs for concern of potential anemia because the hydroxyurea and potentially needing a blood transfusion. He felt that most likely his labs would improve with the hydroxyurea and his oral chemotherapy and also hydration. I then discussed the case with Dr. Singh the on-call oncologist at [facility] who stated that he agreed that the patient could be transferred to their facility and they could continue with the fluid hydration and oral chemotherapy. He also recommended several blood tests which I did order per his recommendation. I then discussed the case with Dr. Shay on-call nephrology who agreed to see the patient in transfer but did not feel that there was need for emergent dialysis. I then discuss the case with Dr. Keita who was the hospitalist on-call at [facility] who was uncomfortable taking the patient in transfer because the patient's original oncologist felt that he needed transfer to the [facility]. She stated that she would be willing to take the patient in transfer if his oncologist okay the transfer. Fena is 0.3% which would be consistent with a prerenal process. Despite what is in his medical record he states he only takes 20 units of Lantus in the morning. He then does use a sliding scale but only takes any short-acting insulin if his blood sugars greater than 250. He did confirm that he takes his Lantus in the morning and not at night This hospital does not have Dasatinib on formulary. Patient is contacting family members to have them bring this medication and so that he can take his home medication on a daily basis. Care turned over to Dr. Cespedes do continue to observe until disposition. Dr. Cespedes 10/17/22 8am-patient signed out to me by Dr. Daly I've seen evaluated patient myself. He overall appears older than stated age but seems to be feeling better having some chronic pain issues blood work is overall improving. Leukocytosis is down to 88 creatinine is improved from 3.48-3.0 potassium remains mildly elevated at 5.6 overall everything is improving with IV fluids. He received a loading dose of hydroxyurea 2000 g last night and 500 mg this morning. His anemia is stable and hemoglobin not yet below 7, no indication for transfusion yet he is also been receiving a lot of IV fluids possible dilution. Dr. Montero hospitalist at [facility] up dated [facility] recommendations Oncology Nephrology agrees to accept patient. Waiting bed placement. <Bre Cespedes, - Last Filed: 10/17/22 14:29> Critical Care Time Critical Care Time: Yes Total Critical Care Time: 30 Attestation: The high probability of a clinically significant, sudden or life threatening deterioration of the [cardiovascular] system(s) required my full and direct attention, intervention and personal management. The aggregate critical care time was 30 minutes. This time is in addition to time spent performing reported procedures but includes the following: [x] Data Review and interpretation [x] Patient assessment and monitoring of vital signs [x] Documentation [x] Medication orders and management Discharge Plan Departure Patient Disposition: [facility] Clinical Impression: Leukemia, LYNNE (acute kidney injury), Hypocalcemia Prescriptions: No Action (DME) BD U/F Hilda Pen Needle [id number] .Route .MEDSUPPLY Qty: 100 3RF Dose Instruction: As directed Rx Instructions: BD U/F Hilda Pen Needle [id number] use as directed with insulin insulin glargine [Lantus Solostar U-100 Insulin] 100 unit/mL (3 mL) insulin pen 20 unit SUBCUT DAILY Qty: 15 3RF insulin lispro [Humalog KwikPen Insulin] 100 unit/mL insulin pen 1 - 12 unit subcut TIDCC Qty: 1 3RF Patient Comments: patient states none today lactulose [Constulose] 10 gram/15 mL solution 15 ml PO DAILY Qty: 473 6RF (DME) Dexcom G6 Sensor Device See Rx Instructions .Route Qty: 3 5RF Rx Instructions: As directed (DME) Dexcom G6 Transmitter Device See Rx Instructions .Route Qty: 1 3RF Rx Instructions: As directed Sprycel 100 mg tablet 100 mg PO DAILY Patient Comments: 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
[2022-10-16 14:41] LABS: Hematocrit 27.4 % (41-53); Hemoglobin 8.4 g/dL (13.5-17.5); Mean Corpuscular HGB Conc 30.7 % (30-36); Mean Corpuscular Hemoglobin 29.6 PG (26-34); Mean Corpuscular Volume 96.5 fL (80-100); Platelet Count 162 X10^3/uL (150-400); Red Blood Cell Count 2.83 X10^6/uL (4.5-5.9); Red Cell Distribution Width 16.1 % (11.6-14.8)
--- NOTE | 2022-10-16 14:41 | PC.NURSE ---
patient complains that he vomits more often now associated to his chemo medication. He says he developed a cough after his vomiting increased and is making yellow sputum.
[2022-10-16] MEDS: PANTOPRAZOLE 40 MG VIAL IV (14:44)
[2022-10-16] MEDS: SODIUM CHLORIDE 0.9% 1,000 ML 1000 ML IV ×2 (14:44→22:39)
[2022-10-16 14:52] LABS: Add Manual Diff / Slide Review YES
[2022-10-16 14:53] LABS: Lactate (Lactic Acid) 0.7 mmol/L (0.7-2.1)
[2022-10-16 14:54] LABS: Alanine Aminotransferase 33 IU/L (<50); Albumin 3.6 g/dL (3.5-5.0); Albumin Globulin Ratio 1.3 (1.0-2.8); Alkaline Phosphatase 150 U/L (38-126); Aspartate Aminotransferase 61 IU/L (17-59); BUN Creatinine Ratio 13.2 (6-22); Bilirubin Total 0.4 mg/dL (0.2-1.3); Blood Urea Nitrogen 46 mg/dL (9-20); Calcium 6.7 mg/dL (8.4-10.2); Carbon Dioxide 17 mmol/L (22-32); Chloride 110 mmol/L (98-107); Estimated Glomerular Filt Rate 21 mL/min (>60); Globulin 2.7 g/dL (1.7-4.1); Glucose 120 mg/dL (70-100); HEMOLYSIS < 15 (0-50); Magnesium 2.6 mg/dL (1.6-2.3); Sodium 139 mmol/L (137-145); Total Protein 6.3 g/dL (6.3-8.2)
[2022-10-16 14:55] LABS: Neutrophils Absolute Manual 96480 /uL (3000-5900); Total Cells Counted 100
[2022-10-16 14:56] LABS: Potassium 5.8 mmol/L (3.4-5.1)
[2022-10-16 14:57] LABS: RBC Morphology Normal Morphology
--- NOTE | 2022-10-16 15:24 | DI.CT.S_ITS ---
PROCEDURE: CT KIDNEY URETER BLADDER (KUB) INDICATIONS: flank pain, renal failure, obtructive uropathy? TECHNIQUE: Axial sections were acquired from the lung bases to the pubic symphysis. Coronal and sagittal reformats were performed. For radiation dose reduction, the following was used: automated exposure control, adjustment of mA and/or kV according to patient size. COMPARISON: [facility], CT, CT ABDOMEN PELVIS WITH CONTRAST, 11/10/2020, 21:21. [facility], CT, KIDNEY/ URETER/BLADDER, 07/01/2014, 15:09. FINDINGS: Image quality: Excellent. Lung bases: Mild atelectasis is present at the bilateral lung bases. Heart: No significant findings. URINARY: Right Kidney: The right renal pyramids appear hyperdense suggesting medullary calcinosis. No nephrolithiasis or hydronephrosis. Right Ureter: No hydroureter. Left Kidney: The left renal pyramids appear hyperdense suggesting medullary nephrocalcinosis. No hydronephrosis or nephrolithiasis. Left Ureter: No hydroureter. Bladder: Normal wall thickness. No stones. ABDOMEN: Liver: Unremarkable. Gallbladder: Multiple subcentimeter calcified stones are layered in the gallbladder fundus. No gallbladder wall thickening or pericholecystic fluid. Biliary ducts: Unremarkable. Pancreas: The pancreas is atrophic with multiple calcifications present. Spleen: The spleen measures 18.1 cm in length which is markedly increased from the prior CT dated November 10, 2020 where the spleen measured 12.2 cm in length. Adrenal Glands: Unremarkable. Stomach and Bowel: Stomach, small bowel loops, and colon are unremarkable. Peritoneum: No abnormal intraperitoneal fluid. No free air. Ventral Wall: No hernia. Abdominal Nodes: No enlarged retroperitoneal or mesenteric lymph nodes. Vessels: Aorta and inferior vena cava are normal in size. PELVIS: Pelvic Organs: Unremarkable. Pelvic Nodes: Unremarkable. Miscellaneous: No inguinal hernias are seen. Bones: Unremarkable. IMPRESSION: 1. No hydronephrosis, nephrolithiasis, hydroureter, or ureterolithiasis. 2. Marked splenomegaly which is new when compared with the study dated November 10, 2020. The significance of this finding is unclear. Differential considerations include portal hypertension and hematologic neoplasm. 3. Hyperdense renal pyramids bilaterally suggesting medullary nephrocalcinosis. Dictated by: Maria M Schwarz M.D. on 10/16/2022 at 16:49 Approved by: Maria M Schwarz M.D. on 10/16/2022 at 17:03
[2022-10-16] MEDS: fentaNYL 100 MCG/2 ML INJ 25 MCG IV (18:08)
--- NOTE | 2022-10-16 18:17 | PC.NURSE ---
Provider okayed zofran 4mg IV. NOT the pharmacy
[2022-10-16] MEDS: ONDANSETRON 4 MG/2 ML INJ IV (18:29)
[2022-10-16] MEDS: HYDROXYUREA 500 MG CAPSULE 2000 MG PO (19:50)
[2022-10-16] MEDS: HYDROMORPHONE 0.5 MG INJ IV ×2 (20:15→21:19)
[2022-10-16 20:44] LABS: COVID19 -Nasal RAPID Negative (Negative)
--- NOTE | 2022-10-16 20:44 | PC.NURSE ---
patient states that he has had nicotine patches before and the adhesive is not an issue with those.
[2022-10-16] MEDS: ACETAMINOPHEN 325 MG TABLET 650 MG PO (20:48)
[2022-10-16 21:53] LABS: Reticulocyte Count, Percent 0.9 % (0.9-2.6)
[2022-10-16 22:41] LABS: UR Morphine/Opiate cutoff 300 Negative (Negative); Ur Creatinine Normal (Normal); Ur Specific Gravity Normal (Normal); Urine Amphetamines Negative (Negative); Urine Barbiturates Negative (Negative); Urine Benzodiazepines Positive (Negative); Urine Cocaine Negative (Negative); Urine MDMA Negative (Negative); Urine Methadone Negative (Negative); Urine Methamphetamines Negative (Negative); Urine Oxycodone Negative (Negative); Urine Phencyclidine Negative (Negative); Urine Tetrahydrocannabinol Positive (Negative); Urine Tricyclic Antidepressant Negative (Negative); Urine pH Normal (Normal)
[2022-10-16 22:48] LABS: Ammonia (NH3) 35 umol/L (9-30)
[2022-10-16 22:50] LABS: Gamma Glutamyl Transpeptidase 77 U/L (15-73)
[2022-10-16] MEDS: HYDROMORPHONE 1 MG INJ IV (22:54)
[2022-10-16 22:58] LABS: Creatinine Urine Random 137.2 mg/dL; Sodium Urine Random 16 mmol/L (30-90)
[2022-10-16 23:01] LABS: Lactate Dehydrogenase 1078 U/L (120-246)
[2022-10-16 23:02] LABS: Uric Acid 14.6 mg/dL (3.5-8.5)
[2022-10-16 23:15] LABS: Thyroid Stimulating Hormone 1.02 uIU/mL (0.47-4.68)
[2022-10-16 23:57] LABS: Folate 14.5 ng/mL (2.76-20.0); Vitamin B12 > 1000 pg/mL (239-931)
[2022-10-17] VITALS (34 sets, daily range): BP systolic 87–134; BP diastolic 52–70; PULSE 48–83; RESP 18; O2SAT 97–100
[2022-10-17] MEDS: LORazepam 2 MG/ML INJ 1 MG IV (00:13)
[2022-10-17] MEDS: NICOTINE 14 PATCH 14 MG TOP (00:14)
[2022-10-17] MEDS: HYDROMORPHONE 0.5 MG INJ IV ×5 (01:45→11:37)
[2022-10-17] MEDS: SODIUM CHLORIDE 0.9% 1,000 ML 150 ML IV (01:45)
[2022-10-17 01:56] LABS: Ictotest Urine Negative (Negative)
[2022-10-17] MEDS: ONDANSETRON 4 MG/2 ML INJ IV (03:30)
--- NOTE | 2022-10-17 03:58 | PC.NURSE ---
Provider spoke with about transferring Pt, at this time Pt not accepted to . suggested to follow up with [facility] oncology about placement for the Pt at the facility where the Pt sees his oncologist. Provider spoke with [employer] [place],Nephrology,Oncologist and Hospitalist at [facility] At this time Pt is to remain in this ED until the day shift of 10/17/22 and staff are to F/U with oncology and hospitalist at [facility] during the day to see if it is still appropriate to send Pt to [facility]
[2022-10-17 04:20] LABS: Hematocrit 23.8 % (41-53); Hemoglobin 7.2 g/dL (13.5-17.5); Mean Corpuscular Hemoglobin 29.1 PG (26-34); Mean Corpuscular Volume 96.8 fL (80-100); Platelet Count 110 X10^3/uL (150-400); Red Blood Cell Count 2.46 X10^6/uL (4.5-5.9); Red Cell Distribution Width 16.2 % (11.6-14.8)
[2022-10-17 04:21] LABS: Add Manual Diff / Slide Review YES
[2022-10-17 04:22] LABS: Alanine Aminotransferase 29 IU/L (<50); Albumin 2.9 g/dL (3.5-5.0); Albumin Globulin Ratio 1.3 (1.0-2.8); Alkaline Phosphatase 119 U/L (38-126); Aspartate Aminotransferase 46 IU/L (17-59); BUN Creatinine Ratio 15.5 (6-22); Bilirubin Total 0.2 mg/dL (0.2-1.3); Blood Urea Nitrogen 48 mg/dL (9-20); Carbon Dioxide 15 mmol/L (22-32); Chloride 111 mmol/L (98-107); Estimated Glomerular Filt Rate 24 mL/min (>60); Globulin 2.3 g/dL (1.7-4.1); Glucose 208 mg/dL (70-100); HEMOLYSIS < 15 (0-50); Sodium 136 mmol/L (137-145); Total Protein 5.2 g/dL (6.3-8.2); White Blood Cell Count 95.4 X10^3/uL (4.5-11.0)
[2022-10-17 04:36] LABS: Potassium 5.8 mmol/L (3.4-5.1)
[2022-10-17 04:37] LABS: Calcium 6.2 mg/dL (8.4-10.2)
[2022-10-17 04:51] LABS: Neutrophils Absolute Manual 71550 /uL (3000-5900); Total Cells Counted 100
[2022-10-17 04:53] LABS: Anisocytosis 1+
[2022-10-17] MEDS: LACTATED RINGERS 1,000 ML 250 ML IV ×2 (05:00→10:21)
[2022-10-17] MEDS: METOCLOPRAMIDE 10 MG/2 ML INJ IV (06:16)
--- NOTE | 2022-10-17 06:29 | PC.NURSE ---
pt's will call his mother this am to have her bring his spricel so that he can continue to take his medication
--- NOTE | 2022-10-17 07:50 | PC.NURSE ---
Pt refuses SCD leg compressions devices.
[2022-10-17] MEDS: INSULIN GLARGINE 100 UNIT/ML 3ML PEN 20 UNIT SUBCUT (08:00)
[2022-10-17] MEDS: HYDROXYUREA 500 MG CAPSULE PO (08:06)
[2022-10-17] MEDS: CALCIUM CARBONATE 500 MG TAB 1500 MG PO (08:06)
[2022-10-17 08:19] LABS: Hematocrit 24.7 % (41-53); Hemoglobin 7.4 g/dL (13.5-17.5); Mean Corpuscular HGB Conc 30.1 % (30-36); Mean Corpuscular Hemoglobin 29.1 PG (26-34); Mean Corpuscular Volume 96.7 fL (80-100); Platelet Count 109 X10^3/uL (150-400); Red Blood Cell Count 2.55 X10^6/uL (4.5-5.9); Red Cell Distribution Width 16.1 % (11.6-14.8)
--- NOTE | 2022-10-17 08:20 | PC.NURSE ---
Pt resting with eyes closed at time of shift change 0715. Introduced myself to pt at 0740. Performed BG testing, result 188. Then verified home meds for med rec. Physician at bedside for consultation. Morning meds administered. Pt requesting pain meds, physician aware. Breakfast served at 0815.
[2022-10-17 08:27] LABS: BUN Creatinine Ratio 15.7 (6-22); Blood Urea Nitrogen 47 mg/dL (9-20); Carbon Dioxide 16 mmol/L (22-32); Chloride 111 mmol/L (98-107); Estimated Glomerular Filt Rate 25 mL/min (>60); Glucose 157 mg/dL (70-100); HEMOLYSIS < 15 (0-50); Sodium 136 mmol/L (137-145)
[2022-10-17 08:28] LABS: Add Manual Diff / Slide Review YES; Potassium 5.6 mmol/L (3.4-5.1); White Blood Cell Count 88.1 X10^3/uL (4.5-11.0)
[2022-10-17 08:29] LABS: Calcium 6.4 mg/dL (8.4-10.2)
[2022-10-17 08:32] LABS: Anisocytosis 1+; Neutrophils Absolute Manual 71361 /uL (3000-5900); Total Cells Counted 100
--- NOTE | 2022-10-17 08:35 | PC.NURSE ---
Pt states he has Lispro as a home med but he does not take it. Pt states Lispro bottoms him out. His physician is aware. NATALYA miller updated about this medication reconciliation.
[2022-10-17] MEDS: CALCIUM GLUCONATE 4.65 MEQ in SODIUM CHLORIDE 0.9% 50 ML 180 MEQ IV (08:49)
--- NOTE | 2022-10-17 09:20 | PC.NURSE ---
Father at the bedside. Pt resting comfortably. Pt ate very little of his breakfast.
[2022-10-17] MEDS: LORazepam 2 MG/ML INJ 0.5 MG IV (13:36)
[2022-10-18 17:41] LABS: Erythropoietin 9.7 mIU/mL (2.6-18.5)
== END 2022-10-17 14:10 | disposition short-term general hospital (02) ==
PROVIDERS: Emergency Medicine; Emergency Provider Emergency Medicine; PCP Family Medicine
DX: C95.90 Leukemia, unspecified not having achieved remission (principal); N17.9 Acute kidney failure, unspecified; E83.51 Hypocalcemia; Z20.822 Contact with and (suspected) exposure to COVID-19
CPT/HCPCS: 36415; 51798; 71045; 74176; 80048; 80053; 80305; 81003; 82140; 82570; 82607; 82668; 82746; 82962; 82977; 83605; 83615; 83735; 84300; 84443; 84550; 85007; 85025; 85045; 86850; 86900; 86901; 87040; 87635; 93005; 93010; 96361; 96374; 96375; 96376; 99284; 99291; C9803; C9113; J0612; J1170; J2060; J2405; J2765; J3010

== ENCOUNTER 2022-10-27 13:06 | Emergency (ER) | payer OTHER, MEDICAID, SELFPAY ==
[2022-10-27] VITALS (22 sets, daily range): BP systolic 120–174; BP diastolic 65–105; PULSE 67–89; RESP 16–20; TEMP 36.8; O2SAT 97–100; BMI 22.6
--- NOTE | 2022-10-27 13:19 | ED.WEAKNESS ---
HPI - Weakness General Chief complaint: Recheck/Abnormal Lab/Rx Stated complaint: sent by [facility] Time Seen by Provider: 10/27/22 13:09 History of Present Illness HPI Narrative: Patient is a 46-year-old male history of insulin-dependent diabetes, some cancer presenting today the request of his oncologist. He was recently admitted to [facility] with CLL. Today he had outpatient blood work which I do not have access to reporting that he had elevated creatinine of 2.7 and potassium of 5.5. I have called and spoken with Dr. Quintanilla Oncology who is concerned that he may be having tumor lysis syndrome. Patient reports that he has had significant weight gain of about 25 lb with fluid retention. He denies any chest pain or shortness of breath. He is not had any fever or chills. He continues to have increasing pain. He says that he got Dilaudid regularly while in the hospital but having pain now. He denies abdominal pain nausea vomiting or other symptoms. Related Data Home Medications Medication Instructions Recorded Confirmed lorazepam 1 mg tablet 1 mg PO TID PRN nauseas 03/09/22 10/17/22 dasatinib 100 mg tablet (Sprycel) 100 mg PO DAILY 05/11/22 10/17/22 Previous Rx's Medication Instructions Recorded BD U/F Hilda Pen Needle [id number] #100 ea 06/13/18 blood-glucose sensor (Dexcom G6 #3 ea 05/11/22 Sensor device) blood-glucose transmitter (Dexcom #1 ea 05/11/22 G6 Transmitter device) insulin glargine 100 unit/mL (3 20 unit (0.2 mL) SUBCUT DAILY #15 05/11/22 mL) subcutaneous pen (Lantus mL Solostar U-100 Insulin) insulin lispro 100 unit/mL 1 - 12 unit (0.01 - 0.12 mL) 05/11/22 subcutaneous pen (Humalog KwikPen SUBCUT TIDCC #1 ea (U-100) Insulin) lactulose 10 gram/15 mL oral 15 ml PO DAILY #473 mL 05/11/22 solution (Constulose) pregabalin 25 mg capsule 25 mg PO TID #270 caps 10/14/22 glucagon HCl 1 mg solution for 1 mg SUBCUT Q20M PRN hypoglycemia 10/23/22 injection (Glucagon (HCl) #2 ea Emergency Kit) Allergies Allergy/AdvReac Type Severity Reaction Status Date / Time Penicillins [PENICILLINS] Allergy Severe Tongue Verified 10/12/22 10:19 swelling, hives adhesive Allergy Intermediate rash, skin Verified 10/12/22 10:19 tear morphine Allergy Mild Hives Verified 10/12/22 10:19 latex [LATEX] Allergy Unknown rash, skin Verified 10/12/22 10:19 tear Review of Systems Review of Systems ROS Unobtainable: All systems reviewed & are unremarkable except as noted in HPI and below Patient History Medical History Alcoholism Ataxia Cancer of blood vessel Central cord syndrome at C3 level of cervical spinal cord Cervical radiculopathy Cervicalgia Chronic, continuous use of opioids CML (chronic myelocytic leukemia) Insulin dependent diabetes mellitus Pancytopenia Thrombocytopenia Surgical History Status post appendectomy Family History Grandfather Diabetes mellitus Mother Cancer History of heart disease Father Hyperlipidemia History of heart disease Social History household members: none Smoking Status: Former smoker Tobacco: How many years used: 10 Smokeless tobacco user: chewing tobacco (current ) quit status: considering quitting alcohol intake: former (Quit 2018 ) substance use type: former substance user (Quit 2011), marijuana (Current marijuana ) and opiates (former ) Smoking Status: Former smoker tobacco type: smokeless tobacco alcohol intake frequency: a few times a week Alcohol type: beer Substance Use Type: marijuana Exam Initial Vital Signs Initial Vital Signs: Vital Signs Temperature 98.2 F 10/27/22 13:09 Pulse Rate 88 10/27/22 13:09 Respiratory Rate 16 10/27/22 13:09 Blood Pressure 151/66 H 10/27/22 13:09 Pulse Oximetry 98 10/27/22 13:09 Oxygen Delivery Method Room Air 10/27/22 13:09 GENERAL: Weak chronically ill 46-year-old male HEENT: Head atraumatic,EOMI, pupils reactive, face symmetric, moist mucous membranes CARDIOVASCULAR: Regular rate and rhythm without murmurs, rubs or gallops. RESPIRATORY: Breath sounds equal bilaterally, no wheezes rales or rhonchi. ABDOMEN: Soft, nontender. Normoactive bowel sounds all 4 quadrants. No guarding or rebound. EXTREMITIES: Normal range of motion, no clubbing.+3 pitting edema Neurovascularly intact NEUROLOGICAL: Alert and oriented x4.Normal gait and speech. SKIN: Warm, dry, no laceration, no petechiae, no rashes or lesions. Course Orders Ordered: Discontinued Medications Furosemide (Furosemide 40 Mg/4 Ml Vial) 40 mg IV NOW ONE Stop: 10/27/22 14:59 Last Admin: 10/27/22 16:25 Dose: 40 mg Documented By: MARIANO Hydromorphone HCl (Hydromorphone 1 Mg Inj) 1 mg IV NOW ONE Stop: 10/27/22 15:15 Last Admin: 10/27/22 15:24 Dose: 1 mg Documented By: RHONDA Hydromorphone HCl (Hydromorphone 1 Mg Inj) 2 mg IV NOW ONE Stop: 10/27/22 16:52 Last Admin: 10/27/22 16:57 Dose: 2 mg Documented By: LEIA Hydromorphone HCl (Hydromorphone 1 Mg Inj) 1 mg IV Q2HR PRN PRN Reason: Pain, Mild (1-3) Last Admin: 10/27/22 21:48 Dose: 1 mg Documented By: Admin: 10/27/22 19:38 Dose: 1 mg Documented By: Calcium Gluconate 4.65 meq/ (Sodium Chloride) 60 mls @ 120 mls/hr IV NOW ONE Stop: 10/27/22 14:59 Last Infusion: 10/27/22 17:03 Dose: 0 mls/hr Documented By: AMKeyshawn Admin: 10/27/22 16:37 Dose: 120 mls/hr Documented By: MARIANO Vital Signs Vital signs: Vital Signs - 8 hr 10/27/22 13:09 10/27/22 13:13 10/27/22 13:15 Temperature 98.2 F Pulse Rate 88 89 83 Respiratory Rate 16 Blood Pressure 151/66 H 151/66 H 148/75 H Pulse Oximetry 98 98 99 Oxygen Delivery Method Room Air 10/27/22 13:30 10/27/22 14:00 10/27/22 14:30 Temperature Pulse Rate 78 72 71 Respiratory Rate 20 20 Blood Pressure 121/75 120/69 132/76 Pulse Oximetry 99 97 99 Oxygen Delivery Method Room Air Room Air 10/27/22 16:44 10/27/22 17:00 10/27/22 17:30 Temperature Pulse Rate 68 75 73 Respiratory Rate 20 Blood Pressure 122/65 Pulse Oximetry 100 100 100 Oxygen Delivery Method Room Air 10/27/22 18:00 10/27/22 18:01 10/27/22 18:01 Temperature Pulse Rate 69 68 Respiratory Rate Blood Pressure 174/102 H Pulse Oximetry 100 100 Oxygen Delivery Method 10/27/22 18:30 10/27/22 18:31 10/27/22 18:31 Temperature Pulse Rate 73 72 Respiratory Rate Blood Pressure 121/78 Pulse Oximetry 100 100 Oxygen Delivery Method 10/27/22 19:00 Temperature Pulse Rate 75 Respiratory Rate Blood Pressure Pulse Oximetry 99 Oxygen Delivery Method MDM - Weakness Lab Data 10/27/22 13:25 10/27/22 13:25 Labs: Lab Results 10/27/22 10/27/22 Range/Units 13:25 13:25 WBC 62.6 H* (4.5-11.0) X10^3/uL RBC 2.50 L (4.5-5.9) X10^6/uL Hgb 7.3 L (13.5-17.5) g/dL Hct 23.7 L (41-53) % MCV 94.8 (80-100) fL MCH 29.4 (26-34) PG MCHC 31.0 (30-36) % RDW 15.7 H (11.6-14.8) % Plt Count 58 L (150-400) X10^3/uL Neut % (Auto) Not Reportable Lymph % (Auto) Not Reportable [place] % (Auto) Not Reportable Eos % (Auto) Not Reportable Baso % (Auto) Not Reportable Lymph # (Auto) Not Reportable [place] # (Auto) Not Reportable Baso # (Auto) Not Reportable Total Counted 100 Seg Neutrophils % 73.0 H (38-70) % Band Neutrophils % 11.0 H (3-7) % Lymphocytes % (Manual) 7.0 L (25-45) % Eosinophils % (Manual) 2.0 (2-4) % Metamyelocytes % 7.0 H (-0) % Neutrophils # (Manual) 80862 H (8548-1642) /uL RBC Morphology Normal morphology Sodium 137 (137-145) mmol/L Potassium 5.1 (3.4-5.1) mmol/L Chloride 112 H (98-107) mmol/L Carbon Dioxide 13 L (22-32) mmol/L BUN 30 H (9-20) mg/dL Creatinine 2.71 H (0.66-1.25) mg/dL Estimated GFR 28 L (>60) mL/min BUN/Creatinine Ratio 11.1 (6-22) Glucose 134 H (70-100) mg/dL Calcium 6.2 L* (8.4-10.2) mg/dL Total Bilirubin 0.6 (0.2-1.3) mg/dL AST 46 (17-59) IU/L ALT 33 (<50) IU/L Alkaline Phosphatase 179 H (38-126) U/L Total Protein 6.3 (6.3-8.2) g/dL Albumin 3.3 L (3.5-5.0) g/dL Globulin 3.0 (1.7-4.1) g/dL Albumin/Globulin Ratio 1.1 (1.0-2.8) Point of Care Testing Glucose POC 117 ECG Data Interpretation: Sinus rhythm rate 65 NE interval 202 QRS 102 QTC well 457 no U waves appreciated MDM Narrative Medical decision making narrative: Patient 46-year-old male presenting with increasing weakness weight gain concern for tumor lysis syndrome. Patient has creatinine today of 2.7 potassium of 5.1. Apparently at discharge he had creatinine of 1.5. Patient is hemodynamically stable. Not hypoxic hypotensive or tachycardic. Complaining of pain which is controlled with Dilaudid. Dr. Noel Oncology myself. He reports with weight gain increased creatinine hypocalcemia definitely concern for tumor lysis. Recommends diuresis monitoring in regards to kidney function. Agrees with transferring over to [facility]. Nephrology Dr. Adame at [facility] updated on symptoms test results agrees with no need for emergent dialysis Dr. Howard, hospitalist [facility] kindly accepts patient Discharge Plan Departure Patient Disposition: Xfer [facility] Clinical Impression: LYNNE (acute kidney injury) Prescriptions: No Action (DME) BD U/F Hilda Pen Needle [id number] .Route .MEDSUPPLY Qty: 100 3RF Dose Instruction: As directed Rx Instructions: BD U/F Hilda Pen Needle [id number] use as directed with insulin insulin glargine [Lantus Solostar U-100 Insulin] 100 unit/mL (3 mL) insulin pen 20 unit SUBCUT DAILY Qty: 15 3RF insulin lispro [Humalog KwikPen Insulin] 100 unit/mL insulin pen 1 - 12 unit subcut TIDCC Qty: 1 3RF Patient Comments: patient states none today lactulose [Constulose] 10 gram/15 mL solution 15 ml PO DAILY Qty: 473 6RF (DME) Dexcom G6 Sensor Device See Rx Instructions .Route Qty: 3 5RF Rx Instructions: As directed (DME) Dexcom G6 Transmitter Device See Rx Instructions .Route Qty: 1 3RF Rx Instructions: As directed Sprycel 100 mg tablet 100 mg PO DAILY Patient Comments: 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
[2022-10-27 13:36] LABS: Hematocrit 23.7 % (41-53); Hemoglobin 7.3 g/dL (13.5-17.5); Mean Corpuscular Hemoglobin 29.4 PG (26-34); Mean Corpuscular Volume 94.8 fL (80-100); Platelet Count 58 X10^3/uL (150-400); Red Cell Distribution Width 15.7 % (11.6-14.8)
[2022-10-27 13:48] LABS: Add Manual Diff / Slide Review YES; White Blood Cell Count 62.6 X10^3/uL (4.5-11.0)
[2022-10-27 13:52] LABS: Alanine Aminotransferase 33 IU/L (<50); Albumin 3.3 g/dL (3.5-5.0); Albumin Globulin Ratio 1.1 (1.0-2.8); Alkaline Phosphatase 179 U/L (38-126); Aspartate Aminotransferase 46 IU/L (17-59); BUN Creatinine Ratio 11.1 (6-22); Bilirubin Total 0.6 mg/dL (0.2-1.3); Blood Urea Nitrogen 30 mg/dL (9-20); Carbon Dioxide 13 mmol/L (22-32); Chloride 112 mmol/L (98-107); Estimated Glomerular Filt Rate 28 mL/min (>60); Glucose 134 mg/dL (70-100); HEMOLYSIS < 15 (0-50); Potassium 5.1 mmol/L (3.4-5.1); Sodium 137 mmol/L (137-145); Total Protein 6.3 g/dL (6.3-8.2)
[2022-10-27 13:58] LABS: Neutrophils Absolute Manual 52584 /uL (3000-5900); Total Cells Counted 100
[2022-10-27 14:00] LABS: Calcium 6.2 mg/dL (8.4-10.2)
[2022-10-27 14:05] LABS: RBC Morphology Normal Morphology
[2022-10-27] MEDS: HYDROMORPHONE 1 MG INJ IV ×3 (15:24→21:48)
[2022-10-27] MEDS: FUROSEMIDE 40 MG/4 ML VIAL IV (16:25)
[2022-10-27] MEDS: CALCIUM GLUCONATE 4.65 MEQ in SODIUM CHLORIDE 0.9% 50 ML 120 MEQ IV (16:37)
[2022-10-27] MEDS: HYDROMORPHONE 1 MG INJ 2 MG IV (16:57)
--- NOTE | 2022-10-27 18:02 | PC.NURSE ---
Pt sent to be evaluated for LYNNE. Pt states he's gain 30 lbs over the past few days. Ankles are swollen and abd is bloated. Pt also reports all over generalized pain.
== END 2022-10-27 22:10 | disposition short-term general hospital (02) ==
PROVIDERS: Emergency Provider Emergency Medicine; PCP Family Medicine
DX: N17.9 Acute kidney failure, unspecified (principal)
CPT/HCPCS: 36415; 80053; 82962; 85007; 85025; 87040; 93005; 96374; 96375; 96376; 99284; J0612; J1170; J1940

== ENCOUNTER → 2022-11-17 11:40 | Outpatient (CLI) | payer OTHER, MEDICAID, SELFPAY ==
[2022-11-17 13:16] LABS: Hematocrit 23.7 % (41-53); Hemoglobin 7.9 g/dL (13.5-17.5); Mean Corpuscular HGB Conc 33.3 % (30-36); Mean Corpuscular Hemoglobin 31.7 PG (26-34); Mean Corpuscular Volume 95.4 fL (80-100); Red Blood Cell Count 2.48 X10^6/uL (4.5-5.9); Red Cell Distribution Width 18.5 % (11.6-14.8); White Blood Cell Count 4.1 X10^3/uL (4.5-11.0)
[2022-11-17 13:58] LABS: Alanine Aminotransferase 24 IU/L (<50); Albumin 3.2 g/dL (3.5-5.0); Albumin Globulin Ratio 1.1 (1.0-2.8); Alkaline Phosphatase 193 U/L (38-126); Aspartate Aminotransferase 46 IU/L (17-59); BUN Creatinine Ratio 14.8 (6-22); Bilirubin Total 0.5 mg/dL (0.2-1.3); Blood Urea Nitrogen 28 mg/dL (9-20); Carbon Dioxide 23 mmol/L (22-32); Chloride 105 mmol/L (98-107); Estimated Glomerular Filt Rate 44 mL/min (>60); Glucose 86 mg/dL (70-100); HEMOLYSIS < 15 (0-50); Potassium 4.8 mmol/L (3.4-5.1); Sodium 136 mmol/L (137-145); Total Protein 6.2 g/dL (6.3-8.2)
[2022-11-17 14:16] LABS: Add Manual Diff / Slide Review YES; Platelet Count 35 X10^3/uL (150-400)
[2022-11-17 14:17] LABS: Calcium 5.7 mg/dL (8.4-10.2)
[2022-11-17 14:42] LABS: Neutrophils Absolute Manual 2788 /uL (3000-5900); Total Cells Counted 100
[2022-11-17 14:43] LABS: Platelet Estimate Decreased on smear; RBC Morphology Normal Morphology
== END ==
PROVIDERS: PCP Family Medicine; Referring Provider Internal Medicine Hematology & Oncology; Visit Provider Internal Medicine Hematology & Oncology
DX: C92.10 Chronic myeloid leukemia, BCR/ABL-positive, not having achieved remission (principal); E79.0 Hyperuricemia without signs of inflammatory arthritis and tophaceous disease; E83.51 Hypocalcemia
CPT/HCPCS: 36415; 80053; 85007; 85025

== ENCOUNTER → 2022-11-23 10:48 | Outpatient (CLI) | payer OTHER, MEDICAID, SELFPAY | PROVIDERS: PCP Family Medicine; Referring Provider Family Medicine; Visit Provider Surgery | DX: R60.9 Edema, unspecified (principal); E83.51 Hypocalcemia; R06.02 Shortness of breath; E11.621 Type 2 diabetes mellitus with foot ulcer; L97.412 Non-pressure chronic ulcer of right heel and midfoot with fat layer exposed; L97.522 Non-pressure chronic ulcer of other part of left foot with fat layer exposed; L84 Corns and callosities | CPT/HCPCS: 11042; 36415; 71045; 71275; 80053; 81003; 83605; 83880; 84484; 85025; 85610; 87070; 87077; 87186; 87205; 93005; 96365; 96375; 99213; 99214; 99284; J0612; J1170; J1940; J2405; Q9967 ==

== ENCOUNTER 2022-11-23 12:41 | Emergency (ER) | payer OTHER, MEDICAID, SELFPAY ==
[2022-11-23] VITALS (15 sets, daily range): BP systolic 115–157; BP diastolic 66–79; PULSE 61–75; RESP 10–20; TEMP 37; O2SAT 93–98; BMI 22.5
--- NOTE | 2022-11-23 13:16 | DI.RAD.S_ITS ---
PROCEDURE: XR CHEST 1V INDICATIONS: Shortness of breath TECHNIQUE: One view of the chest was acquired. COMPARISON: [facility], CR, XR CHEST 1 VIEW, 10/17/2022, 16:45. [facility], CR, XR CHEST 1V, 10/16/2022, 14:45. [facility], CR, XR CHEST 1V, 08/11/2021, 13:52. FINDINGS: Surgical changes and devices: Partially imaged cervical fusion hardware Lungs and pleura: Small bilateral pleural effusions, right larger than left. Patchy opacities present at both mid and lower lungs, right side worse than left. No definite pneumothorax. Mediastinum: Mediastinal and hilar contours appear similar to before. Bones and chest wall: No suspicious bony lesions. Overlying soft tissues appear unremarkable. IMPRESSION: Small bilateral pleural effusions, right larger than left. Opacities at both mid and lower lungs are also present, could represent atelectasis but edema or pneumonia cannot be excluded. Dictated by: Kevin Henriquez M.D. on 11/23/2022 at 14:24 Approved by: Kevin Henriquez M.D. on 11/23/2022 at 14:27
[2022-11-23 14:08] LABS: Add Manual Diff / Slide Review SLIDE REVIEW; Basophils Absolute Auto 0 /uL (0-100); Basophils Percent Auto 0.3 % (0-2); Eosinophils Absolute Auto 0 /uL (0-450); Eosinophils Percent Auto 0.1 % (2-4); Hematocrit 22.8 % (41-53); Hemoglobin 7.6 g/dL (13.5-17.5); Lymphocytes Absolute Auto 300 /uL (1100-4500); Lymphocytes Percent Auto 6.1 % (25-40); Mean Corpuscular HGB Conc 33.3 % (30-36); Mean Corpuscular Hemoglobin 31.7 PG (26-34); Mean Corpuscular Volume 95.3 fL (80-100); Monocytes Absolute Auto 400 /uL (0-900); Monocytes Percent Auto 7.4 % (3-14); Neutrophils Absolute Auto 4600 /uL (1500-7000); Neutrophils Percent Auto 86.1 % (50-75); Platelet Count 45 X10^3/uL (150-400); Red Blood Cell Count 2.39 X10^6/uL (4.5-5.9); Red Cell Distribution Width 19.4 % (11.6-14.8); White Blood Cell Count 5.3 X10^3/uL (4.5-11.0)
[2022-11-23 14:12] LABS: INR 1.2 (0.9-1.3); Prothrombin Time 13.6 SECONDS (10.1-12.7)
[2022-11-23 14:19] LABS: Alanine Aminotransferase 19 IU/L (<50); Albumin 3.5 g/dL (3.5-5.0); Alkaline Phosphatase 174 U/L (38-126); Aspartate Aminotransferase 38 IU/L (17-59); BUN Creatinine Ratio 17.7 (6-22); Bilirubin Total 0.5 mg/dL (0.2-1.3); Blood Urea Nitrogen 33 mg/dL (9-20); Carbon Dioxide 24 mmol/L (22-32); Chloride 103 mmol/L (98-107); Estimated Glomerular Filt Rate 44 mL/min (>60); Globulin 3.4 g/dL (1.7-4.1); Glucose 136 mg/dL (70-100); HEMOLYSIS < 15 (0-50); Lactate (Lactic Acid) 0.6 mmol/L (0.7-2.1); Potassium 5.1 mmol/L (3.4-5.1); Sodium 135 mmol/L (137-145); Total Protein 6.9 g/dL (6.3-8.2)
[2022-11-23 14:20] LABS: Calcium 5.9 mg/dL (8.4-10.2)
--- NOTE | 2022-11-23 14:28 | ED_ITS ---
HPI - SOB/Dyspnea General Chief Complaint: Shortness of Breath/Dyspnea Stated Complaint: check for pneumonia/sent by wound care Time Seen by Provider: 11/23/22 15:41 Source: patient Mode of arrival: Family Vehicle Limitations: no limitations History of Present Illness HPI Narrative: Patient 47-year-old male multiple comorbidities including insulin-dependent diabetes, CLL, fluid retention presenting today with increased difficulty breathing and some chest heaviness. He reports that he is supposed to take Lasix he did not take it this morning he went to Wound Care for a wound on his right heel which he reports was chipped off. He says that he gained 25 lb overnight. He said yesterday at home he weighed 157 and this morning wound care he was in the 170s. I find this difficult to believe. He reports that he has gained 10 lb overnight but usually not this much. He is says he is only missed today's dose of the diuretic. He denies fever chills or cough. He is seen daily by Oncology for chemotherapy. He is requesting pain medication for his chest Related Data Home Medications Medication Instructions Recorded Confirmed lorazepam 1 mg tablet 1 mg PO TID PRN nauseas 03/09/22 10/17/22 dasatinib 100 mg tablet (Sprycel) 100 mg PO DAILY 05/11/22 10/17/22 Previous Rx's Medication Instructions Recorded BD U/F Hilda Pen Needle [id number] #100 ea 06/13/18 insulin lispro 100 unit/mL 1 - 12 unit (0.01 - 0.12 mL) 05/11/22 subcutaneous pen (Humalog KwikPen SUBCUT TIDCC #1 ea (U-100) Insulin) lactulose 10 gram/15 mL oral 15 ml PO DAILY #473 mL 05/11/22 solution (Constulose) pregabalin 25 mg capsule 25 mg PO TID #270 caps 10/14/22 glucagon HCl 1 mg solution for 1 mg SUBCUT Q20M PRN hypoglycemia 10/23/22 injection (Glucagon (HCl) #2 ea Emergency Kit) Lantus Solostar U-100 Insulin 100 20 unit (0.2 mL) SUBCUT DAILY #15 11/03/22 unit/mL (3 mL) subcutaneous pen mL (insulin glargine) blood-glucose sensor (Dexcom G6 #3 ea 11/06/22 Sensor device) blood-glucose transmitter (Dexcom #1 ea 11/06/22 G6 Transmitter device) Allergies Allergy/AdvReac Type Severity Reaction Status Date / Time adhesive Allergy Intermediate rash, skin Verified 11/23/22 13:15 tear latex [LATEX] Allergy Unknown rash, skin Verified 11/23/22 13:15 tear Review of Systems Review of Systems ROS Unobtainable: All systems reviewed & are unremarkable except as noted in HPI and below Patient History Medical History Alcoholism Ataxia Cancer of blood vessel Central cord syndrome at C3 level of cervical spinal cord Cervical radiculopathy Cervicalgia Chronic, continuous use of opioids CML (chronic myelocytic leukemia) Insulin dependent diabetes mellitus Pancytopenia Thrombocytopenia Surgical History Status post appendectomy Family History Grandfather Diabetes mellitus Mother Cancer History of heart disease Father Hyperlipidemia History of heart disease Social History household members: none Smoking Status: Former smoker Tobacco: How many years used: 10 Smokeless tobacco user: chewing tobacco (current ) quit status: considering quitting alcohol intake: former (Quit 2018 ) substance use type: former substance user (Quit 2011), marijuana (Current black emery ) and opiates (former ) Smoking Status: Former smoker tobacco type: cigarettes and smokeless tobacco alcohol intake frequency: 0-2 drinks per day Alcohol type: beer Substance Use Type: marijuana Exam Initial Vital Signs Initial Vital Signs: Vital Signs Temperature 98.6 F 11/23/22 13:08 Pulse Rate 75 11/23/22 13:08 Respiratory Rate 18 11/23/22 13:08 Blood Pressure 148/67 H 11/23/22 13:08 Pulse Oximetry 96 11/23/22 13:08 Oxygen Delivery Method Room Air 11/23/22 13:08 GENERAL: Alert chronically ill 47-year-old male and in no acute distress. HEENT: Head atraumatic,EOMI, pupils reactive, face symmetric, moist mucous membranes CARDIOVASCULAR: Regular rate and rhythm without murmurs, rubs or gallops. RESPIRATORY: Decreased breath sounds at bases ABDOMEN: Soft, nontender. Normoactive bowel sounds all 4 quadrants. No gu arding or rebound. EXTREMITIES: Normal range of motion. For extremity edema bilaterally NEUROLOGICAL: Alert and oriented x4.Normal gait and speech. SKIN: Warm, dry, no laceration, no petechiae, no rashes or lesions. Course Orders Ordered: Discontinued Medications Furosemide (Furosemide 40 Mg/4 Ml Vial) 40 mg IV NOW ONE Stop: 11/23/22 16:00 Last Admin: 11/23/22 16:36 Dose: 40 mg Documented By: LUNA Hydromorphone HCl (Hydromorphone 1 Mg Inj) 1 mg IV NOW ONE Stop: 11/23/22 16:09 Last Admin: 11/23/22 16:16 Dose: 1 mg Documented By: JUNIOR Calcium Gluconate 9.3 meq/ (Sodium Chloride) 70 mls @ 140 mls/hr IV NOW ONE Stop: 11/23/22 14:57 Last Infusion: 11/23/22 15:53 Dose: 0 mls/hr Documented By: Admin: 11/23/22 14:56 Dose: 140 mls/hr Documented By: JUNIOR Ondansetron HCl (Ondansetron 4 Mg/2 Ml Inj) 4 mg IV NOW ONE Stop: 11/23/22 16:52 Last Admin: 11/23/22 16:57 Dose: 4 mg Documented By: JUNIOR Vital Signs Vital signs: Vital Signs - 8 hr 11/23/22 13:08 Temperature 98.6 F Pulse Rate 75 Respiratory Rate 18 Blood Pressure 148/67 H Pulse Oximetry 96 Oxygen Delivery Method Room Air MDM - SOB/Dyspnea Lab Data 11/23/22 13:46 11/23/22 13:46 Labs: Lab Results 11/23/22 11/23/22 11/23/22 Range/Units 13:46 13:46 13:46 WBC 5.3 (4.5-11.0) X10^3/uL RBC 2.39 L (4.5-5.9) X10^6/uL Hgb 7.6 L (13.5-17.5) g/dL Hct 22.8 L (41-53) % MCV 95.3 (80-100) fL MCH 31.7 (26-34) PG MCHC 33.3 (30-36) % RDW 19.4 H (11.6-14.8) % Plt Count 45 L (150-400) X10^3/uL Neut % (Auto) 86.1 H (50-75) % Lymph % (Auto) 6.1 L (25-40) % Real % (Auto) 7.4 (3-14) % Eos % (Auto) 0.1 L (2-4) % Baso % (Auto) 0.3 (0-2) % Neut # (Auto) 4600 (8994-0217) /uL Lymph # (Auto) 300 L (6731-4781) /uL Real # (Auto) 400 (0-900) /uL Eos # (Auto) 0 (0-450) /uL Baso # (Auto) 0 (0-100) /uL Platelet Estimate Decreased on smear RBC Morphology See below Anisocytosis 1+ H PT 13.6 H (10.1-12.7) SECONDS INR 1.2 (0.9-1.3) Sodium 135 L (137-145) mmol/L Potassium 5.1 (3.4-5.1) mmol/L Chloride 103 (98-107) mmol/L Carbon Dioxide 24 (22-32) mmol/L BUN 33 H (9-20) mg/dL Creatinine 1.86 H (0.66-1.25) mg/dL Estimated GFR 44 L (>60) mL/min BUN/Creatinine Ratio 17.7 (6-22) Glucose 136 H (70-100) mg/dL Lactate (0.7-2.1) mmol/L Calcium 5.9 L* (8.4-10.2) mg/dL Total Bilirubin 0.5 (0.2-1.3) mg/dL AST 38 (17-59) IU/L ALT 19 (<50) IU/L Alkaline Phosphatase 174 H (38-126) U/L Troponin I < 0.012 (0.01-0.034) ng/mL NT-Pro-B Natriuret Pep 1260 H (<125) pg/mL Total Protein 6.9 (6.3-8.2) g/dL Albumin 3.5 (3.5-5.0) g/dL Globulin 3.4 (1.7-4.1) g/dL Albumin/Globulin Ratio 1.0 (1.0-2.8) 11/23/22 Range/Units 13:46 WBC (4.5-11.0) X10^3/uL RBC (4.5-5.9) X10^6/uL Hgb (13.5-17.5) g/dL Hct (41-53) % MCV (80-100) fL MCH (26-34) PG MCHC (30-36) % RDW (11.6-14.8) % Plt Count (150-400) X10^3/uL Neut % (Auto) (50-75) % Lymph % (Auto) (25-40) % Real % (Auto) (3-14) % Eos % (Auto) (2-4) % Baso % (Auto) (0-2) % Neut # (Auto) (6073-7894) /uL Lymph # (Auto) (3731-3108) /uL Real # (Auto) (0-900) /uL Eos # (Auto) (0-450) /uL Baso # (Auto) (0-100) /uL Platelet Estimate RBC Morphology Anisocytosis PT (10.1-12.7) SECONDS INR (0.9-1.3) Sodium (137-145) mmol/L Potassium (3.4-5.1) mmol/L Chloride (98-107) mmol/L Carbon Dioxide (22-32) mmol/L BUN (9-20) mg/dL Creatinine (0.66-1.25) mg/dL Estimated GFR (>60) mL/min BUN/Creatinine Ratio (6-22) Glucose (70-100) mg/dL Lactate 0.6 L (0.7-2.1) mmol/L Calcium (8.4-10.2) mg/dL Total Bilirubin (0.2-1.3) mg/dL AST (17-59) IU/L ALT (<50) IU/L Alkaline Phosphatase (38-126) U/L Troponin I (0.01-0.034) ng/mL NT-Pro-B Natriuret Pep (<125) pg/mL Total Protein (6.3-8.2) g/dL Albumin (3.5-5.0) g/dL Globulin (1.7-4.1) g/dL Albumin/Globulin Ratio (1.0-2.8) Urine Dip Bedside Urine Glucose Negative Bedside Urine Bilirubin - Negative Bedside Urine Ketone - Negative Urine Specific [place] 1.010 Bedside Urine Occult Blood - Negative Bedside Urine pH 6.0 Bedside Urine Protein - Negative Bedside Urine Urobilinogen - Negative Bedside Urine Nitrite - Negative Bedside Urine Leukocytes - Negative Esterase Imaging Data Chest x-ray: Radiologist's Impression: PROCEDURE:? XR CHEST 1V ? INDICATIONS:? Shortness of breath ? TECHNIQUE:? One view of the chest was acquired.? ? COMPARISON:? [facility], CR, XR CHEST 1 VIEW, 10/17/2022, 16:45.? [facility], CR, XR CHEST 1V, 10/16/2022, 14:45.? [facility], CR, XR CHEST 1V, 08/11/2021, 13:52. ? FINDINGS:? ? Surgical changes and devices:? Partially imaged cervical fusion hardware ? Lungs and pleura:? Small bilateral pleural effusions, right larger than left.? Patchy opacities present at both mid and lower lungs, right side worse than left.? No definite pneumothorax. ? Mediastinum:? Mediastinal and hilar contours appear similar to before. ? Bones and chest wall:? No suspicious bony lesions.? Overlying soft tissues appear unremarkable.? ? IMPRESSION:? Small bilateral pleural effusions, right larger than left.? Opacities at both mid and lower lungs are also present, could represent atelectasis but edema or pneumonia cannot be excluded. ? ? Dictated by: Kevin Henriquez M.D. on 11/23/2022 at 14:24 ? ? Approved by: Kevin Henriquez M.D. on 11/23/2022 at 14:27 ? CT scan - chest: Radiologist's Impression: PROCEDURE:? CT ANGIO CHEST PE PROTOCOL ? INDICATIONS:? cancer chest pain ? TECHNIQUE:? After the administration of intravenous contrast, 2 mm thick sections acquired from the pulmonary apices to the posterior costophrenic angles.? 3-dimensional maximum intensity projection (MIP) coronal and sagittal reformats were then acquired through the thorax.? For radiation dose reduction, the following was used:? automated exposure control, adjustment of mA and/or kV according to patient size.? ? COMPARISON:? [facility], CT, CT CHEST ABD PEL WO CON, 11/21/2019, 13:15.? [facility], CT, CT KIDNEY URETER BLADDER (KUB), 10/16/2022, 15:44.? [facility], CT, CT ANGIO CHEST PE PROTOCOL, 02/09/2019, 23:35. ? FINDINGS:? Image quality:? Excellent.? ? Pulmonary arteries:? Pulmonary arteries are normal in size, and demonstrate no intraluminal filling defects to suggest central pulmonary embolism.? ? Lungs and pleura:? Question mild asymmetric pulmonary edema, involving predominantly the right mid and lower lung field with septal lobular thickening in fluid.? There is dense left basilar atelectasis, compressed secondary to a moderately large left pleural effusion.? Mild to moderate right pleural effusion with minimal right basilar atelectasis. ? Mediastinum:? Cardiomegaly with left ventricular and left atrial enlargement.? No pericardial effusion.? Shotty subcarinal lymph nodes.? Thoracic aorta is normal in caliber and enhancement.? Esophagus is normal in caliber, without hiatal hernia.? ? Bones and chest wall:? No suspicious bony lesions.? Ribs and thoracic spine appear intact throughout.? Thyroid gland is unremarkable.? No axillary or supraclavicular adenopathy.? ? Abdomen:? Cirrhosis, splenomegaly, ascites. ? IMPRESSION:? ? 1. No acute pulmonary emboli. ? 2. Findings may potentially represent a congestive heart failure exacerbation.? There is a question of asymmetric pulmonary edema.? There is a moderately large left pleural effusion with compressive atelectasis in the left base.? There is a mild-to- moderate right pleural effusion.? There is cardiomegaly with left sided enlargement. ? 3. Cirrhosis, splenomegaly.? ? ? Dictated by: Lizandro Diane M.D. on 11/23/2022 at 16:50 ? ECG Data Interpretation: Sinus rhythm rate 68 AK 160 QRS [address] changes similar to prior MDM Narrative Medical decision making narrative: Patient 47-year-old male multiple comorbidities he has fluid retention he is chronically on Lasix. Reports weight gain I do not think it is as much as he says in 1 night. BNP is elevated at 1260. He is not hypoxic he has some bilateral pleural effusions on chest xray. I suspect more fluid overload however pulmonary embolism can not be excluded. CT does not show evidence of pulmonary embolism but are consistent with congestive heart failure. Symptoms and history most consistent with a congestive heart failure picture. He reports that he has had an echocardiogram however I do not have record. Labs have been reviewed he is no evidence of DKA a creatinine is stable calcium is low at 5.9 he is given calcium replacement. At this time recommend follow-up outpatient and increase his Lasix. Discharge Plan Departure Patient Disposition: Home Clinical Impression: Fluid retention, Hypocalcemia Instructions: Heart Failure Activity Restrictions/Additional Instructions: *You have been diagnosed with fluid retention, low calcium *What to do: Please talk with your oncologist about getting an echocardiogram o f your heart. You desperately need this to assess the function of your heart and your fluids Limit salt intake Weigh herself daily on the same scale, and similar clothing *Continue to take medications as directed Increase your Lasix to twice daily for the next 3 days *Follow up with your primary care provider in 2-3 days or call [phone] *Return to ER if you should have increasing chest pain shortness of breath or fever or any new, worsening or concerning symptoms Prescriptions: No Action (DME) BD U/F Hilda Pen Needle [id number] 0 .Route .MEDSUPPLY Qty: 100 3RF Dose Instruction: As directed Rx Instructions: BD U/F Hilda Pen Needle [id number] use as directed with insulin insulin lispro [Humalog KwikPen Insulin] 100 unit/mL insulin pen 1 - 12 unit subcut TIDCC Qty: 1 3RF Patient Comments: patient states none today lactulose [Constulose] 10 gram/15 mL solution 15 ml PO DAILY Qty: 473 6RF Sprycel 100 mg tablet 100 mg PO DAILY Patient Comments: pt started for his CML pregabalin 25 mg capsule 25 mg PO TID Qty: 270 0RF glucagon HCl [Glucagon (HCl) Emergency Kit] 1 mg recon soln 1 mg SUBCUT Q20M PRN (Reason: hypoglycemia) Qty: 2 0RF Rx Instructions: until target blood sugar attained insulin glargine [Lantus Solostar U-100 Insulin] 100 unit/mL (3 mL) insulin pen 20 unit SUBCUT DAILY Qty: 15 3RF (DME) Dexcom G6 Sensor Device See Rx Instructions .Route Qty: 3 5RF Rx Instructions: As directed (DME) Dexcom G6 Transmitter Device See Rx Instructions .Route Qty: 1 3RF Rx Instructions: As directed lorazepam 1 mg tablet 1 mg PO TID PRN (Reason: nauseas) Referrals: Zakia Kidd DO [Primary Care Provider] - Stand Alone Forms: Patient Portal/API
[2022-11-23 14:29] LABS: NT-proBNP (BNP-Adult 18+) 1260 pg/mL (<125); Troponin I < 0.012 ng/mL (0.01-0.034)
[2022-11-23 14:30] LABS: Anisocytosis 1+; Platelet Estimate Decreased on smear
[2022-11-23] MEDS: CALCIUM GLUCONATE 9.3 MEQ in SODIUM CHLORIDE 0.9% 50 ML 140 MEQ IV (14:56)
--- NOTE | 2022-11-23 16:08 | DI.CT.S_ITS ---
PROCEDURE: CT ANGIO CHEST PE PROTOCOL INDICATIONS: cancer chest pain TECHNIQUE: After the administration of intravenous contrast, 2 mm thick sections acquired from the pulmonary apices to the posterior costophrenic angles. 3-dimensional maximum intensity projection (MIP) coronal and sagittal reformats were then acquired through the thorax. For radiation dose reduction, the following was used: automated exposure control, adjustment of mA and/or kV according to patient size. COMPARISON: [facility], CT, CT CHEST ABD PEL WO CON, 11/21/2019, 13:15. [facility], CT, CT KIDNEY URETER BLADDER (KUB), 10/16/2022, 15:44. [facility], CT, CT ANGIO CHEST PE PROTOCOL, 02/09/2019, 23:35. FINDINGS: Image quality: Excellent. Pulmonary arteries: Pulmonary arteries are normal in size, and demonstrate no intraluminal filling defects to suggest central pulmonary embolism. Lungs and pleura: Question mild asymmetric pulmonary edema, involving predominantly the right mid and lower lung field with septal lobular thickening in fluid. There is dense left basilar atelectasis, compressed secondary to a moderately large left pleural effusion. Mild to moderate right pleural effusion with minimal right basilar atelectasis. Mediastinum: Cardiomegaly with left ventricular and left atrial enlargement. No pericardial effusion. Shotty subcarinal lymph nodes. Thoracic aorta is normal in caliber and enhancement. Esophagus is normal in caliber, without hiatal hernia. Bones and chest wall: No suspicious bony lesions. Ribs and thoracic spine appear intact throughout. Thyroid gland is unremarkable. No axillary or supraclavicular adenopathy. Abdomen: Cirrhosis, splenomegaly, ascites. IMPRESSION: 1. No acute pulmonary emboli. 2. Findings may potentially represent a congestive heart failure exacerbation. There is a question of asymmetric pulmonary edema. There is a moderately large left pleural effusion with compressive atelectasis in the left base. There is a [id number] right pleural effusion. There is cardiomegaly with left sided enlargement. 3. Cirrhosis, splenomegaly. Dictated by: Lizandro Diane M.D. on 11/23/2022 at 16:50 Approved by: Lizandro Diane M.D. on 11/23/2022 at 16:56
[2022-11-23] MEDS: HYDROMORPHONE 1 MG INJ IV (16:16)
[2022-11-23] MEDS: FUROSEMIDE 40 MG/4 ML VIAL IV (16:36)
[2022-11-23] MEDS: ONDANSETRON 4 MG/2 ML INJ IV (16:57)
== END 2022-11-23 17:36 | disposition home or self-care (01) ==
PROVIDERS: Emergency Provider Emergency Medicine; PCP Family Medicine
DX: R60.9 Edema, unspecified (principal); E83.51 Hypocalcemia; R06.02 Shortness of breath
CPT/HCPCS: 36415; 71045; 71275; 80053; 81003; 83605; 83880; 84484; 85025; 85610; 93005; J0612; J1170; J1940; J2405; Q9967

== ENCOUNTER → 2022-12-08 13:48 | Outpatient (CLI) | payer OTHER, MEDICAID, SELFPAY | PROVIDERS: PCP Family Medicine; Referring Provider Podiatrist; Visit Provider Surgery | DX: E11.621 Type 2 diabetes mellitus with foot ulcer (principal); L97.522 Non-pressure chronic ulcer of other part of left foot with fat layer exposed; E11.40 Type 2 diabetes mellitus with diabetic neuropathy, unspecified; R60.0 Localized edema; L84 Corns and callosities | CPT/HCPCS: 11042; 99213 ==

== ENCOUNTER → 2022-12-21 13:52 | Outpatient (CLI) | payer OTHER, MEDICAID, SELFPAY | PROVIDERS: PCP Family Medicine; Referring Provider Podiatrist; Visit Provider Surgery | DX: E11.621 Type 2 diabetes mellitus with foot ulcer (principal); L97.412 Non-pressure chronic ulcer of right heel and midfoot with fat layer exposed; L97.522 Non-pressure chronic ulcer of other part of left foot with fat layer exposed; E11.40 Type 2 diabetes mellitus with diabetic neuropathy, unspecified; L84 Corns and callosities; R60.0 Localized edema | CPT/HCPCS: 11042 ==

== ENCOUNTER 2022-12-22 16:26 | Emergency (ER) | payer OTHER, MEDICAID, SELFPAY ==
[2022-12-22] VITALS (14 sets, daily range): BP systolic 136–194; BP diastolic 77–96; PULSE 70–110; RESP 12–37; TEMP 36.9; O2SAT 97–99; BMI 22.4
[2022-12-22 17:50] LABS: Add Manual Diff / Slide Review NO; Basophils Absolute Auto 0 /uL (0-100); Basophils Percent Auto 0.6 % (0-2); Eosinophils Absolute Auto 0 /uL (0-450); Eosinophils Percent Auto 0.3 % (2-4); Hemoglobin 8.1 g/dL (13.5-17.5); Lymphocytes Absolute Auto 800 /uL (1100-4500); Lymphocytes Percent Auto 22.1 % (25-40); Mean Corpuscular HGB Conc 33.9 % (30-36); Mean Corpuscular Hemoglobin 32.9 PG (26-34); Monocytes Absolute Auto 300 /uL (0-900); Monocytes Percent Auto 7.6 % (3-14); Neutrophils Absolute Auto 2500 /uL (1500-7000); Neutrophils Percent Auto 69.4 % (50-75); Platelet Count 41 X10^3/uL (150-400); Red Blood Cell Count 2.48 X10^6/uL (4.5-5.9); Red Cell Distribution Width 19.9 % (11.6-14.8); White Blood Cell Count 3.6 X10^3/uL (4.5-11.0)
[2022-12-22 17:51] LABS: Alanine Aminotransferase 23 IU/L (<50); Albumin 3.7 g/dL (3.5-5.0); Albumin Globulin Ratio 1.1 (1.0-2.8); Alkaline Phosphatase 119 U/L (38-126); Aspartate Aminotransferase 49 IU/L (17-59); BUN Creatinine Ratio 15.5 (6-22); Bilirubin Total 0.6 mg/dL (0.2-1.3); Blood Urea Nitrogen 30 mg/dL (9-20); Calcium 6.8 mg/dL (8.4-10.2); Carbon Dioxide 19 mmol/L (22-32); Chloride 109 mmol/L (98-107); Estimated Glomerular Filt Rate 42 mL/min (>60); Globulin 3.3 g/dL (1.7-4.1); Glucose 56 mg/dL (70-100); HEMOLYSIS < 15 (0-50); Sodium 137 mmol/L (137-145)
[2022-12-22 17:54] LABS: Potassium 5.9 mmol/L (3.4-5.1)
--- NOTE | 2022-12-22 18:10 | ED_ITS ---
HPI - Recheck/Abnormal Lab/Rx General Chief Complaint: Recheck/Abnormal Lab/Rx Stated Complaint: ONC. ref potassium/ heart rate high Time Seen by Provider: 12/22/22 17:25 Source: patient Mode of arrival: Ambulatory History of Present Illness HPI narrative: 47-year-old male smoker, former polysubstance abuse patient history of leukemia, osteomyelitis of the spine, diabetes presents for evaluation of elevated potassium as noted by lab draw from Oncology. He states that he has been having some trouble for about the past month and has been feeling anxious with frequent panic attacks which leads him to feel short of breath. He states that his trouble seemed to start when an insurance problem lead to have some issues with not having access to some of his medications about a month ago. He states he was most recently admitted at [facility] about 2 weeks ago. Related Data Home Medications Medication Instructions Recorded Confirmed lorazepam 1 mg tablet 1 mg PO TID PRN nauseas 03/09/22 10/17/22 dasatinib 100 mg tablet (Sprycel) 100 mg PO DAILY 05/11/22 10/17/22 Previous Rx's Medication Instructions Recorded BD U/F Hilda Pen Needle [id number] #100 ea 06/13/18 insulin lispro 100 unit/mL 1 - 12 unit (0.01 - 0.12 mL) 05/11/22 subcutaneous pen (Humalog KwikPen SUBCUT TIDCC #1 ea (U-100) Insulin) lactulose 10 gram/15 mL oral 15 ml PO DAILY #473 mL 05/11/22 solution (Constulose) pregabalin 25 mg capsule 25 mg PO TID #270 caps 10/14/22 glucagon HCl 1 mg solution for 1 mg SUBCUT Q20M PRN hypoglycemia 10/23/22 injection (Glucagon (HCl) #2 ea Emergency Kit) Lantus Solostar U-100 Insulin 100 20 unit (0.2 mL) SUBCUT DAILY #15 11/03/22 unit/mL (3 mL) subcutaneous pen mL (insulin glargine) blood-glucose sensor (Dexcom G6 #3 ea 11/06/22 Sensor device) blood-glucose transmitter (Dexcom #1 ea 11/06/22 G6 Transmitter device) Allergies Allergy/AdvReac Type Severity Reaction Status Date / Time adhesive Allergy Intermediate rash, skin Verified 11/23/22 13:15 tear latex [LATEX] Allergy Unknown rash, skin Verified 11/23/22 13:15 tear Review of Systems Review of Systems Narrative: GENERAL: See HPI HEENT: Denies sinus pain, ear pain, sore throat, difficulty swallowing, dizziness. RESPIRATORY: See HPI CARDIOVASCULAR: Denies chest pain, palpitations, orthopnea, edema, GASTROINTESTINAL: Denies nausea, vomiting, abdominal pain, diarrhea, constipation, melena. : Denies dysuria, frequency, incontinence, hematuria, urinary retention. MUSCULOSKELETAL: denies weakness, joint pain, or bony pain SKIN: Denies rash, skin lesions, or other NEUROLOGIC: Denies weakness, headache, numbness, change in speech, confusion, seizures, incoordination. PSYCHIATRIC: No concerning psychosocial issues. 12 point review of systems is negative except for those stated above Patient History Medical History Alcoholism Ataxia Cancer of blood vessel Central cord syndrome at C3 level of cervical spinal cord Cervical radiculopathy Cervicalgia Chronic, continuous use of opioids CML (chronic myelocytic leukemia) Insulin dependent diabetes mellitus Pancytopenia Thrombocytopenia Surgical History Status post appendectomy Family History Grandfather Diabetes mellitus Mother Cancer History of heart disease Father Hyperlipidemia History of heart disease Social History household members: none Smoking Status: Former smoker Tobacco: How many years used: 10 Smokeless tobacco user: chewing tobacco (current ) quit status: considering quitting alcohol intake: former (Quit 2018 ) substance use type: former substance user (Quit 2011), marijuana (Current marijuana ) and opiates (former ) Smoking Status: Former smoker tobacco type: cigarettes and smokeless tobacco alcohol intake frequency: 0-2 drinks per day Alcohol type: beer Substance Use Type: marijuana Exam Narrative Exam Narrative: GENERAL: [47] year old patient appears stated age. Well-developed patient, in mild distress. HEAD: Atraumatic. Normocephalic. EYES: Pupils equal round and reactive. Extraocular motions intact. No scleral icterus. No injection or drainage. ENT: Nose without bleeding, purulent drainage. Throat without erythema, tonsillar hypertrophy or exudate. Airway patent. NECK: Trachea midline. Non tender CARDIOVASCULAR: Regular rate and rhythm without murmurs, gallops, or rubs. RESPIRATORY: Clear to auscultation. Breath sounds equal bilaterally. No wheezes, rales, or rhonchi. GASTROINTESTINAL: Abdomen soft, non-tender, nondistended. EXTREMITIES: No edema or joint tenderness. BACK: Nontender without deformity or crepitance. No flank tenderness. NEURO: AOx3. SKIN: No rash or erythema of visible areas Initial Vital Signs Initial Vital Signs: Vital Signs Pulse Rate 85 12/22/22 16:52 Blood Pressure 173/89 H 12/22/22 16:52 Pulse Oximetry 98 12/22/22 16:52 Course Orders Ordered: ED Orders 12/22/22 20:35 BMP [Basic Metabolic Panel] Stat Discontinued Medications Albuterol (Albuterol 2.5 Mg/3 Ml Neb (Adult)) 20 mg INH NOW ONE Stop: 12/22/22 18:15 Last Admin: 12/22/22 18:25 Dose: 20 mg Documented By: SHAWN Furosemide (Furosemide 40 Mg/4 Ml Vial) 40 mg IV NOW ONE Stop: 12/22/22 18:15 Last Admin: 12/22/22 18:24 Dose: 40 mg Documented By: ANABELLA Hydromorphone HCl (Hydromorphone 1 Mg Inj) 1 mg IV NOW ONE Stop: 12/22/22 20:24 Last Admin: 12/22/22 20:37 Dose: 1 mg Documented By: ANABELLA Sodium Chloride (Normal Saline 0.9%) 1,000 mls @ 1,000 mls/hr IV BOLUS ONE Stop: 12/22/22 19:13 Last Infusion: 12/22/22 20:21 Dose: 0 mls/hr Documented By: Admin: 12/22/22 18:24 Dose: 1,000 mls/hr Documented By: ANABELLA Vital Signs Vital signs: Vital Signs - 8 hr 12/22/22 21:54 Pulse Rate 102 H Pulse Oximetry 99 MDM - Recheck/Abnormal Lab/Rx Lab Data 12/22/22 17:28 12/22/22 20:35 Labs: Lab Results 12/22/22 12/22/22 12/22/22 Range/Units 17:28 17:28 20:35 WBC 3.6 L (4.5-11.0) X10^3/uL RBC 2.48 L (4.5-5.9) X10^6/uL Hgb 8.1 L (13.5-17.5) g/dL Hct 24.0 L (41-53) % MCV 97.0 (80-100) fL MCH 32.9 (26-34) PG MCHC 33.9 (30-36) % RDW 19.9 H (11.6-14.8) % Plt Count 41 L (150-400) X10^3/uL Neut % (Auto) 69.4 (50-75) % Lymph % (Auto) 22.1 L (25-40) % Andrews % (Auto) 7.6 (3-14) % Eos % (Auto) 0.3 L (2-4) % Baso % (Auto) 0.6 (0-2) % Neut # (Auto) 2500 (5794-1667) /uL Lymph # (Auto) 800 L (5589-0182) /uL Andrews # (Auto) 300 (0-900) /uL Eos # (Auto) 0 (0-450) /uL Baso # (Auto) 0 (0-100) /uL Sodium 137 135 L (137-145) mmol/L Potassium 5.9 H 4.9 (3.4-5.1) mmol/L Chloride 109 H 107 (98-107) mmol/L Carbon Dioxide 19 L 16 L (22-32) mmol/L BUN 30 H 29 H (9-20) mg/dL Creatinine 1.94 H 1.92 H (0.66-1.25) mg/dL Estimated GFR 42 L 43 L (>60) mL/min BUN/Creatinine Ratio 15.5 15.1 (6-22) Glucose 56 L 281 H D (70-100) mg/dL Calcium 6.8 L 6.4 L* (8.4-10.2) mg/dL Total Bilirubin 0.6 (0.2-1.3) mg/dL AST 49 (17-59) IU/L ALT 23 (<50) IU/L Alkaline Phosphatase 119 (38-126) U/L Total Protein 7.0 (6.3-8.2) g/dL Albumin 3.7 (3.5-5.0) g/dL Globulin 3.3 (1.7-4.1) g/dL Albumin/Globulin Ratio 1.1 (1.0-2.8) Point of Care Testing Glucose POC 57 MDM Narrative Medical decision making narrative: CC: 47-year-old male sent for abnormal labs Complicating co-morbidities: Leukemia, alcohol, opioid abuse versus other Data collected from: Patient Medical records reviewed: Prior notes reviewed in our EMR Differential considered, but not limited to: Abnormal labs Exam documented above, pertinent findings include: No significant abnormal findings Lab Test results independently reviewed as above. Pertinent findings: White blood cells 3.6, largely at his baseline, H&H 8.1 and 24, also at his baseline, potassium 5.9, chloride 109, carbon dioxide 19, creatinine 1.94, baseline for him, calcium 6.8 Independently reviewed EKG as above Treatments: Normal saline, Lasix, albuterol continuous, Dilaudid Re-evaluations: Patient feeling quite well with significant improvement over the course of the visit. He is ambulatory without difficulty. No dizziness, weakness or lightheadedness. No chest pain or shortness of breath. Above stated therapies have improved electrolytes and he is requesting discharge Discussion: Disposition: see below, along with detailed discharge instructions that have been reviewed with patient as well as indications for ED re-evaluation and additional outpatient follow up Discharge Plan Departure Patient Disposition: Home Clinical Impression: Acute hyperkalemia, Hypocalcemia Instructions: DI for Hyperkalemia, DI for Hypocalcemia Activity Restrictions/Additional Instructions: *You have been diagnosed with [electrolyte abnormalities including high potassium and low calcium. *What to do: *Please continue to take your regular medications as directed. *Please follow up with your primary care provider in 2-3 days, call for an appointment. Let them know you were seen in the Emergency Department and that we ask that you be seen in follow up. We will electronically transmit a record of today's note if your PCP is in our system *If you do not have a primary care provider please contact the [facility] Resource line at [phone]. They will ask some questions about your medical history and help get you set up with a doctor in the community. *Return to Emergency Department if you should have any new, worsening or concerning symptoms, such as [fever greater than 101 F, shaking chills, worsening pain, persistent vomiting or other bothersome symptoms] Prescriptions: No Action (DME) BD U/F Hilda Pen Needle [id number] 0 .Route .MEDSUPPLY Qty: 100 3RF Dose Instruction: As directed Rx Instructions: BD U/F Hilda Pen Needle [id number] use as directed with insulin insulin lispro [Humalog KwikPen Insulin] 100 unit/mL insulin pen 1 - 12 unit subcut TIDCC Qty: 1 3RF Patient Comments: patient states none today lactulose [Constulose] 10 gram/15 mL solution 15 ml PO DAILY Qty: 473 6RF Sprycel 100 mg tablet 100 mg PO DAILY Patient Comments: pt started for his CML pregabalin 25 mg capsule 25 mg PO TID Qty: 270 0RF glucagon HCl [Glucagon (HCl) Emergency Kit] 1 mg recon soln 1 mg SUBCUT Q20M PRN (Reason: hypoglycemia) Qty: 2 0RF Rx Instructions: until target blood sugar attained insulin glargine [Lantus Solostar U-100 Insulin] 100 unit/mL (3 mL) insulin pen 20 unit SUBCUT DAILY Qty: 15 3RF (DME) Dexcom G6 Sensor Device See Rx Instructions .Route Qty: 3 5RF Rx Instructions: As directed (DME) Dexcom G6 Transmitter Device See Rx Instructions .Route Qty: 1 3RF Rx Instructions: As directed lorazepam 1 mg tablet 1 mg PO TID PRN (Reason: nauseas) Referrals: Zakia Kidd DO [Primary Care Provider] - Stand Alone Forms: Patient Portal/API
[2022-12-22] MEDS: SODIUM ZIRCONIUM CYCLOSILICATE 10 GM POWD.PACK PO (18:11)
[2022-12-22] MEDS: FUROSEMIDE 40 MG/4 ML VIAL IV (18:24)
[2022-12-22] MEDS: SODIUM CHLORIDE 0.9% 1,000 ML 1000 ML IV (18:24)
[2022-12-22] MEDS: ALBUTEROL 2.5 MG/3 ML NEB (ADULT) 20 MG INH (18:25)
[2022-12-22] MEDS: HYDROMORPHONE 1 MG INJ IV (20:37)
[2022-12-22 20:57] LABS: BUN Creatinine Ratio 15.1 (6-22); Blood Urea Nitrogen 29 mg/dL (9-20); Carbon Dioxide 16 mmol/L (22-32); Chloride 107 mmol/L (98-107); Estimated Glomerular Filt Rate 43 mL/min (>60); Glucose 281 mg/dL (70-100); HEMOLYSIS < 15 (0-50); Potassium 4.9 mmol/L (3.4-5.1); Sodium 135 mmol/L (137-145)
[2022-12-22 21:34] LABS: Calcium 6.4 mg/dL (8.4-10.2)
== END 2022-12-22 22:27 | disposition home or self-care (01) ==
PROVIDERS: Emergency Medicine; Emergency Provider Emergency Medicine; PCP Family Medicine
DX: E87.5 Hyperkalemia (principal); E83.51 Hypocalcemia; Z79.899 Other long term (current) drug therapy
CPT/HCPCS: 36415; 80048; 80053; 82962; 85025; 96361; 96374; 96375; 99284; J1170; J1940; J7613

== ENCOUNTER 2022-12-26 14:59 | Emergency (ER) | payer OTHER, MEDICAID, SELFPAY ==
[2022-12-26] VITALS (28 sets, daily range): BP systolic 120–167; BP diastolic 66–81; PULSE 70–88; RESP 10–21; TEMP 36.6; O2SAT 95–99; BMI 19.8
--- NOTE | 2022-12-26 15:18 | DI.US.S_ITS ---
PROCEDURE: US PERIPH VENOUS LOW EXTREM RT INDICATIONS: SWELLING TECHNIQUE: Real-time imaging, as well as color and pulse Doppler interrogation, were performed of the lower extremity deep veins from the inguinal ligament to the popliteal fossa, with documentation of the visualized calf veins. COMPARISON: [facility], CT, CT KIDNEY URETER BLADDER (KUB), 10/16/2022, 15:44. [facility], US, US PERIPH VENOUS LOW EXTREM RT, 12/11/2020, 14:49. FINDINGS: The common femoral, femoral, popliteal, and the visualized calf veins are normally compressible, and free of intraluminal thrombus. Color and pulse Doppler demonstrate normal phasic intraluminal flow. There is normal augmentation response to distal compression maneuver. There is an enlarged right inguinal lymph node measures 4.2 x 2.1 x 0.9 cm. IMPRESSION: 1. No findings of lower extremity deep venous thrombosis. 2. Enlarged right inguinal lymph node recommend clinical follow-up and imaging follow-up as clinically indicated. Dictated by: Darby Infante M.D. on 12/26/2022 at 17:32 Approved by: Darby Infante M.D. on 12/26/2022 at 17:34
--- NOTE | 2022-12-26 15:18 | ED.GENADULT ---
HPI - General Adult <Jermaine Daly DO - Last Filed: 12/27/22 11:11> General Chief complaint: Weakness Stated complaint: Weakness, SOB Time Seen by Provider: 12/26/22 15:04 Source: patient and EMS Mode of arrival: EMS History of Present Illness HPI narrative: 47-year-old male. Has multiple chronic medical problems to include CML for which he takes a daily oral chemotherapy agent, kidney disease, insulin-dependent diabetes, alcoholic cirrhosis and other issues. He started back on chemotherapy approximately 2 months ago. Over the past month or so he is had increasing worsening fatigue and weakness and shortness of breath. He was seen by wound care for wounds on his lower extremities. It was seen here in the emergency department several days ago for an elevated potassium. Subsequently discharged home. Returns today with worsening weakness and shortness of breath. He also has swelling to his right lower extremity that has been new over the past 2 days. Shortness of breath has not changed. He expresses subjective fevers. Has redness to his right lower extremity. No chest pain. Related Data Home Medications Medication Instructions Recorded Confirmed lorazepam 1 mg tablet 1 mg PO TID PRN nauseas 03/09/22 10/17/22 dasatinib 100 mg tablet (Sprycel) 100 mg PO DAILY 05/11/22 12/27/22 Previous Rx's Medication Instructions Recorded BD U/F Hilda Pen Needle [id number] #100 ea 06/13/18 insulin lispro 100 unit/mL 1 - 12 unit (0.01 - 0.12 mL) 05/11/22 subcutaneous pen (Humalog KwikPen SUBCUT TIDCC #1 ea (U-100) Insulin) lactulose 10 gram/15 mL oral 15 ml PO DAILY #473 mL 05/11/22 solution (Constulose) pregabalin 25 mg capsule 25 mg PO TID #270 caps 10/14/22 glucagon HCl 1 mg solution for 1 mg SUBCUT Q20M PRN hypoglycemia 10/23/22 injection (Glucagon (HCl) #2 ea Emergency Kit) Lantus Solostar U-100 Insulin 100 20 unit (0.2 mL) SUBCUT DAILY #15 11/03/22 unit/mL (3 mL) subcutaneous pen mL (insulin glargine) blood-glucose sensor (Dexcom G6 #3 ea 11/06/22 Sensor device) blood-glucose transmitter (Dexcom #1 ea 11/06/22 G6 Transmitter device) Allergies Allergy/AdvReac Type Severity Reaction Status Date / Time adhesive Allergy Intermediate rash, skin Verified 11/23/22 13:15 tear latex [LATEX] Allergy Unknown rash, skin Verified 11/23/22 13:15 tear Review of Systems <Jermaine Daly DO - Last Filed: 12/27/22 11:11> Review of Systems ROS Unobtainable: All systems reviewed & are unremarkable except as noted in HPI and below Patient History <Jermaine Daly DO - Last Filed: 12/27/22 11:11> Medical History Alcoholism Ataxia Cancer of blood vessel Central cord syndrome at C3 level of cervical spinal cord Cervical radiculopathy Cervicalgia Chronic, continuous use of opioids CML (chronic myelocytic leukemia) Insulin dependent diabetes mellitus Pancytopenia Thrombocytopenia Surgical History Status post appendectomy Family History Grandfather Diabetes mellitus Mother Cancer History of heart disease Father Hyperlipidemia History of heart disease Social History household members: none Smoking Status: Former smoker Tobacco: How many years used: 10 Smokeless tobacco user: chewing tobacco (current ) quit status: considering quitting alcohol intake: former (Quit 2018 ) substance use type: former substance user (Quit 2011), marijuana (Current marijuana ) and opiates (former ) Smoking Status: Former smoker tobacco type: cigarettes and smokeless tobacco alcohol intake frequency: 0-2 drinks per day Alcohol type: beer Substance Use Type: marijuana Exam <Jermaine Daly DO - Last Filed: 12/27/22 11:11> Initial Vital Signs Initial Vital Signs: Vital Signs Pulse Rate 79 12/26/22 15:05 Respiratory Rate 13 12/26/22 15:05 Blood Pressure 134/79 12/26/22 15:05 Pulse Oximetry 97 12/26/22 15:05 HENMT Head: normal to inspection and normocephalic Resp Effort & Inspection: normal respiratory effort Auscultation: clear to auscultation bilaterally Cardio Rate: regular rate Rhythm: regular rhythm GI Inspection: normal to inspection Skin Other: Multiple skin wounds of the various stages of healing. He does have swelling to his right lower extremity with warmth and redness to the area. No ulceration. No blistering. Neuro General: patient alert, patient awake and moves all extremities Extrem Other: Swelling right lower extremity <Tere Tirado MD - Last Filed: 12/27/22 18:02> Initial Vital Signs Initial Vital Signs: Vital Signs Pulse Rate 79 12/26/22 15:05 Respiratory Rate 13 12/26/22 15:05 Blood Pressure 134/79 12/26/22 15:05 Pulse Oximetry 97 12/26/22 15:05 Course <Jemraine Daly DO - Last Filed: 12/27/22 11:11> Orders Ordered: Discontinued Medications Albuterol (Albuterol 2.5 Mg/3 Ml Neb (Adult)) 2.5 mg INH NOW ONE Stop: 12/27/22 04:34 Last Admin: 12/27/22 04:41 Dose: 2.5 mg Documented By: MR Calcium Carbonate (Calcium Carbonate 500 Mg Tab) 1,000 mg PO TID [facility] Last Admin: 12/26/22 21:43 Dose: 1,000 mg Documented By: Hydromorphone HCl (Hydromorphone 1 Mg Inj) 1 mg IV NOW ONE Stop: 12/26/22 15:30 Last Admin: 12/26/22 15:39 Dose: 1 mg Documented By: CTS Hydromorphone HCl (Hydromorphone 0.5 Mg Inj) 0.5 mg IV NOW ONE Stop: 12/26/22 17:26 Last Admin: 12/26/22 17:30 Dose: 0.5 mg Documented By: MPO Hydromorphone HCl (Hydromorphone 0.5 Mg Inj) 0.5 mg IV Q15MIN PRN PRN Reason: Pain, Last Admin: 12/27/22 01:20 Dose: 0.5 mg Documented By: Admin: 12/26/22 22:38 Dose: 0.5 mg Documented By: Admin: 12/26/22 19:54 Dose: 0.5 mg Documented By: Hydromorphone HCl (Hydromorphone 0.5 Mg Inj) 1 mg IV Q2H PRN PRN Reason: Pain, Last Admin: 12/27/22 07:38 Dose: 1 mg Documented By: Admin: 12/27/22 03:33 Dose: 1 mg Documented By: Hydromorphone HCl (Hydromorphone 1 Mg Inj) 1 mg IV Q2H PRN PRN Reason: Pain, Sodium Chloride (Normal Saline 0.9%) 1,000 mls @ 1,000 mls/hr IV BOLUS ONE Stop: 12/26/22 16:45 Last Infusion: 12/26/22 16:51 Dose: 0 mls/hr Documented By: Admin: 12/26/22 15:50 Dose: 1,000 mls/hr Documented By: MPO Sodium Chloride (Normal Saline 0.9%) 1,000 mls @ 125 mls/hr IV CONT ROBIN Last Infusion: 12/27/22 02:48 Dose: 0 mls/hr Documented By: Infusion: 12/26/22 23:37 Dose: 125 mls/hr Documented By: Infusion: 12/26/22 22:35 Dose: 0 mls/hr Documented By: Admin: 12/26/22 18:13 Dose: 125 mls/hr Documented By: MARGY Vancomycin HCl (Vancomycin) 1,000 mg in 200 mls @ 200 mls/hr IV NOW ONE Stop: 12/26/22 18:47 Last Infusion: 12/26/22 20:34 Dose: 0 mls/hr Documented By: Admin: 12/26/22 19:06 Dose: 200 mls/hr Documented By: MARGY(2) Ceftriaxone Sodium 1,000 mg/ (Sodium Chloride) 100 mls @ 200 mls/hr IV NOW ONE Stop: 12/26/22 17:49 Last Infusion: 12/26/22 18:57 Dose: 0 mls/hr Documented By: Admin: 12/26/22 18:02 Dose: 200 mls/hr Documented By: MARGY Sodium Chloride (Normal Saline 0.9%) 1,000 mls @ 1,000 mls/hr IV BOLUS ONE Stop: 12/26/22 23:33 Last Infusion: 12/26/22 23:37 Dose: 0 mls/hr Documented By: Admin: 12/26/22 22:38 Dose: 1,000 mls/hr Documented By: Sodium Chloride (Normal Saline 0.9%) 1,000 mls @ 125 mls/hr IV CONT ROBIN Last Infusion: 12/27/22 08:54 Dose: 0 mls/hr Documented By: Infusion: 12/27/22 08:53 Dose: 125 mls/hr Documented By: Admin: 12/27/22 02:51 Dose: 125 mls/hr Documented By: Calcium Gluconate 4.65 meq/ (Sodium Chloride) 60 mls @ 180 mls/hr IV NOW ONE Stop: 12/27/22 07:47 Last Infusion: 12/27/22 09:15 Dose: 0 mls/hr Documented By: Admin: 12/27/22 08:54 Dose: 180 mls/hr Documented By: ST Ceftriaxone Sodium 1,000 mg/ (Sodium Chloride) 100 mls @ 200 mls/hr IV NOW ONE Stop: 12/27/22 17:01 Vancomycin HCl (Vancomycin) 1,000 mg in 200 mls @ 200 mls/hr IV Q24H [facility] Lorazepam (Lorazepam 0.5 Mg Tablet) 1 mg PO TID PRN PRN Reason: anxiety Last Admin: 12/27/22 03:38 Dose: 1 mg Documented By: Admin: 12/26/22 21:56 Dose: 1 mg Documented By: Lorazepam (Lorazepam 1 Mg Tablet) 1 mg PO Q6H [facility] Last Admin: 12/27/22 08:55 Dose: 1 mg Documented By: ST Lorazepam (Lorazepam 1 Mg Tablet) 1 mg PO TID PRN PRN Reason: anxiety Methadone HCl (Methadone 10 Mg Tablet) 10 mg PO Q6H [facility] Last Admin: 12/27/22 08:55 Dose: 10 mg Documented By: Dasatinib 100 Mg (Tablet) 1 each PO DAILY [facility] Dasatinib 100 Mg (Tablet) 1 each PO BEDTIME [facility] Oxycodone HCl (Oxycodone Er 10 Mg Tab) 15 mg PO Q8HR PRN PRN Reason: Pain, Severe (7-10) Oxycodone HCl (Oxycodone Ir 5 Mg Tablet) 15 mg PO Q8HR PRN PRN Reason: Pain, Severe (7-10) Pregabalin (Pregabalin 25 Mg Capsule) 25 mg PO TID [facility] Last Admin: 12/27/22 08:55 Dose: 25 mg Documented By: Torsemide (Torsemide 100 Mg Tablet) 50 mg PO DAILY [facility] Last Admin: 12/27/22 08:57 Dose: 50 mg Documented By: ST Vital Signs Vital signs: Vital Signs - 8 hr 12/27/22 10:30 12/27/22 10:40 12/27/22 10:15 Temperature 98.0 F Pulse Rate 77 79 Respiratory Rate 14 19 Blood Pressure Pulse Oximetry 97 Oxygen Delivery Method Room Air 12/27/22 10:30 12/27/22 10:30 Temperature Pulse Rate 77 Respiratory Rate 11 L Blood Pressure 152/67 H Pulse Oximetry Oxygen Delivery Method <Tere Tirado MD - Last Filed: 12/27/22 18:02> Orders Ordered: Discontinued Medications Albuterol (Albuterol 2.5 Mg/3 Ml Neb (Adult)) 2.5 mg INH NOW ONE Stop: 12/27/22 04:34 Last Admin: 12/27/22 04:41 Dose: 2.5 mg Documented By: Calcium Carbonate (Calcium Carbonate 500 Mg Tab) 1,000 mg PO TID [facility] Last Admin: 12/26/22 21:43 Dose: 1,000 mg Documented By: Hydromorphone HCl (Hydromorphone 1 Mg Inj) 1 mg IV NOW ONE Stop: 12/26/22 15:30 Last Admin: 12/26/22 15:39 Dose: 1 mg Documented By: CTS Hydromorphone HCl (Hydromorphone 0.5 Mg Inj) 0.5 mg IV NOW ONE Stop: 12/26/22 17:26 Last Admin: 12/26/22 17:30 Dose: 0.5 mg Documented By: MPO Hydromorphone HCl (Hydromorphone 0.5 Mg Inj) 0.5 mg IV Q15MIN PRN PRN Reason: Pain, Last Admin: 12/27/22 01:20 Dose: 0.5 mg Documented By: Admin: 12/26/22 22:38 Dose: 0.5 mg Documented By: Admin: 12/26/22 19:54 Dose: 0.5 mg Documented By: Hydromorphone HCl (Hydromorphone 0.5 Mg Inj) 1 mg IV Q2H PRN PRN Reason: Pain, Last Admin: 12/27/22 07:38 Dose: 1 mg Documented By: Admin: 12/27/22 03:33 Dose: 1 mg Documented By: Hydromorphone HCl (Hydromorphone 1 Mg Inj) 1 mg IV Q2H PRN PRN Reason: Pain, Sodium Chloride (Normal Saline 0.9%) 1,000 mls @ 1,000 mls/hr IV BOLUS ONE Stop: 12/26/22 16:45 Last Infusion: 12/26/22 16:51 Dose: 0 mls/hr Documented By: Admin: 12/26/22 15:50 Dose: 1,000 mls/hr Documented By: MPO Sodium Chloride (Normal Saline 0.9%) 1,000 mls @ 125 mls/hr IV CONT ROBIN Last Infusion: 12/27/22 02:48 Dose: 0 mls/hr Documented By: Infusion: 12/26/22 23:37 Dose: 125 mls/hr Documented By: Infusion: 12/26/22 22:35 Dose: 0 mls/hr Documented By: Admin: 12/26/22 18:13 Dose: 125 mls/hr Documented By: MARGY Vancomycin HCl (Vancomycin) 1,000 mg in 200 mls @ 200 mls/hr IV NOW ONE Stop: 12/26/22 18:47 Last Infusion: 12/26/22 20:34 Dose: 0 mls/hr Documented By: Admin: 12/26/22 19:06 Dose: 200 mls/hr Documented By: MARGY(2) Ceftriaxone Sodium 1,000 mg/ (Sodium Chloride) 100 mls @ 200 mls/hr IV NOW ONE Stop: 12/26/22 17:49 Last Infusion: 12/26/22 18:57 Dose: 0 mls/hr Documented By: Admin: 12/26/22 18:02 Dose: 200 mls/hr Documented By: MARGY Sodium Chloride (Normal Saline 0.9%) 1,000 mls @ 1,000 mls/hr IV BOLUS ONE Stop: 12/26/22 23:33 Last Infusion: 12/26/22 23:37 Dose: 0 mls/hr Documented By: Admin: 12/26/22 22:38 Dose: 1,000 mls/hr Documented By: Sodium Chloride (Normal Saline 0.9%) 1,000 mls @ 125 mls/hr IV CONT ROBIN Last Infusion: 12/27/22 08:54 Dose: 0 mls/hr Documented By: Infusion: 12/27/22 08:53 Dose: 125 mls/hr Documented By: Admin: 12/27/22 02:51 Dose: 125 mls/hr Documented By: Calcium Gluconate 4.65 meq/ (Sodium Chloride) 60 mls @ 180 mls/hr IV NOW ONE Stop: 12/27/22 07:47 Last Infusion: 12/27/22 09:15 Dose: 0 mls/hr Documented By: Admin: 12/27/22 08:54 Dose: 180 mls/hr Documented By: ST Ceftriaxone Sodium 1,000 mg/ (Sodium Chloride) 100 mls @ 200 mls/hr IV NOW ONE Stop: 12/27/22 17:01 Vancomycin HCl (Vancomycin) 1,000 mg in 200 mls @ 200 mls/hr IV Q24H [facility] Lorazepam (Lorazepam 0.5 Mg Tablet) 1 mg PO TID PRN PRN Reason: anxiety Last Admin: 12/27/22 03:38 Dose: 1 mg Documented By: Admin: 12/26/22 21:56 Dose: 1 mg Documented By: Lorazepam (Lorazepam 1 Mg Tablet) 1 mg PO Q6H [facility] Last Admin: 12/27/22 08:55 Dose: 1 mg Documented By: ST Lorazepam (Lorazepam 1 Mg Tablet) 1 mg PO TID PRN PRN Reason: anxiety Methadone HCl (Methadone 10 Mg Tablet) 10 mg PO Q6H [facility] Last Admin: 12/27/22 08:55 Dose: 10 mg Documented By: Dasatinib 100 Mg (Tablet) 1 each PO DAILY [facility] Dasatinib 100 Mg (Tablet) 1 each PO BEDTIME [facility] Oxycodone HCl (Oxycodone Er 10 Mg Tab) 15 mg PO Q8HR PRN PRN Reason: Pain, Severe (7-10) Oxycodone HCl (Oxycodone Ir 5 Mg Tablet) 15 mg PO Q8HR PRN PRN Reason: Pain, Severe (7-10) Pregabalin (Pregabalin 25 Mg Capsule) 25 mg PO TID [facility] Last Admin: 12/27/22 08:55 Dose: 25 mg Documented By: ST Torsemide (Torsemide 100 Mg Tablet) 50 mg PO DAILY [facility] Last Admin: 12/27/22 08:57 Dose: 50 mg Documented By: ST Vital Signs Vital signs: Vital Signs - 8 hr 12/27/22 10:30 12/27/22 10:40 12/27/22 10:15 Temperature 98.0 F Pulse Rate 77 79 Respiratory Rate 14 19 Blood Pressure Pulse Oximetry 97 Oxygen Delivery Method Room Air 12/27/22 10:30 12/27/22 10:30 Temperature Pulse Rate 77 Respiratory Rate 11 L Blood Pressure 152/67 H Pulse Oximetry Oxygen Delivery Method Medical Decision Making <Jermaine Daly, - Last Filed: 12/27/22 11:11> Medical Records Medical records reviewed: Yes I reviewed the patient's medical records. Lab Data Lab results reviewed: Yes I reviewed the patient's lab results. 12/27/22 06:35 12/27/22 06:35 Labs: Lab Results 12/26/22 12/26/22 12/26/22 Range/Units 15:05 15:05 15:05 WBC 7.9 (4.5-11.0) X10^3/uL RBC 2.47 L (4.5-5.9) X10^6/uL Hgb 8.2 L (13.5-17.5) g/dL Hct 24.6 L (41-53) % MCV 99.6 (80-100) fL MCH 33.2 (26-34) PG MCHC 33.3 (30-36) % RDW 20.9 H (11.6-14.8) % Plt Count 37 L (150-400) X10^3/uL Neut % (Auto) 91.6 H (50-75) % Lymph % (Auto) 4.2 L (25-40) % Floyd % (Auto) 3.7 (3-14) % Eos % (Auto) 0.0 L (2-4) % Baso % (Auto) 0.5 (0-2) % Neut # (Auto) 7200 H (3442-8299) /uL Lymph # (Auto) 300 L (2330-0981) /uL Floyd # (Auto) 300 (0-900) /uL Eos # (Auto) 0 (0-450) /uL Baso # (Auto) 0 (0-100) /uL Platelet Estimate Decreased on smear RBC Morphology See below Poikilocytosis 1+ H Anisocytosis 1+ H Sodium 130 L (137-145) mmol/L Potassium 5.4 H (3.4-5.1) mmol/L Chloride 102 (98-107) mmol/L Carbon Dioxide 17 L (22-32) mmol/L BUN 40 H (9-20) mg/dL Creatinine 2.74 H (0.66-1.25) mg/dL Estimated GFR 28 L (>60) mL/min BUN/Creatinine Ratio 14.6 (6-22) Glucose 169 H D (70-100) mg/dL Lactate 1.0 (0.7-2.1) mmol/L Calcium 6.6 L (8.4-10.2) mg/dL Phosphorus 5.7 H (2.5-4.5) mg/dL Magnesium 2.7 H (1.6-2.3) mg/dL Total Bilirubin 0.5 (0.2-1.3) mg/dL AST 41 (17-59) IU/L ALT 23 (<50) IU/L Alkaline Phosphatase 111 (38-126) U/L Total Protein 6.9 (6.3-8.2) g/dL Albumin 3.6 (3.5-5.0) g/dL Globulin 3.3 (1.7-4.1) g/dL Albumin/Globulin Ratio 1.1 (1.0-2.8) Lipase < 10 L (23-300) U/L Urine RBC (0-5/HPF) Urine WBC (0-5/HPF) Ur Squamous Epith Cells (0-5/HPF) Urine Bacteria (None) Ur Culture Indicated? Ur Random Sodium (30-90) mmol/L Urine Creatinine mg/dL Ethyl Alcohol < 10 ( - 10) mg/dL Blood Type Antibody Screen Crossmatch 12/26/22 12/26/22 12/26/22 Range/Units 17:26 17:26 21:06 WBC (4.5-11.0) X10^3/uL RBC (4.5-5.9) X10^6/uL Hgb (13.5-17.5) g/dL Hct (41-53) % MCV (80-100) fL MCH (26-34) PG MCHC (30-36) % RDW (11.6-14.8) % Plt Count (150-400) X10^3/uL Neut % (Auto) (50-75) % Lymph % (Auto) (25-40) % Floyd % (Auto) (3-14) % Eos % (Auto) (2-4) % Baso % (Auto) (0-2) % Neut # (Auto) (3999-5111) /uL Lymph # (Auto) (5816-1844) /uL Floyd # (Auto) (0-900) /uL Eos # (Auto) (0-450) /uL Baso # (Auto) (0-100) /uL Platelet Estimate RBC Morphology Poikilocytosis Anisocytosis Sodium 130 L (137-145) mmol/L Potassium 5.5 H (3.4-5.1) mmol/L Chloride 104 (98-107) mmol/L Carbon Dioxide 18 L (22-32) mmol/L BUN 42 H (9-20) mg/dL Creatinine 2.54 H (0.66-1.25) mg/dL Estimated GFR 31 L (>60) mL/min BUN/Creatinine Ratio 16.5 (6-22) Glucose 151 H (70-100) mg/dL Lactate (0.7-2.1) mmol/L Calcium 6.0 L* (8.4-10.2) mg/dL Phosphorus (2.5-4.5) mg/dL Magnesium (1.6-2.3) mg/dL Total Bilirubin (0.2-1.3) mg/dL AST (17-59) IU/L ALT (<50) IU/L Alkaline Phosphatase (38-126) U/L Total Protein (6.3-8.2) g/dL Albumin (3.5-5.0) g/dL Globulin (1.7-4.1) g/dL Albumin/Globulin Ratio (1.0-2.8) Lipase (23-300) U/L Urine RBC 1-5/hpf (0-5/HPF) Urine WBC 1-5/hpf (0-5/HPF) Ur Squamous Epith Cells None seen (0-5/HPF) Urine Bacteria None seen (None) Ur Culture Indicated? Cult not indicated Ur Random Sodium 9 L (30-90) mmol/L Urine Creatinine 88.6 mg/dL Ethyl Alcohol ( - 10) mg/dL Blood Type Antibody Screen Crossmatch 12/27/22 12/27/22 12/27/22 Range/Units 06:35 06:35 07:23 WBC 4.3 L (4.5-11.0) X10^3/uL RBC 2.09 L (4.5-5.9) X10^6/uL Hgb 6.9 L* (13.5-17.5) g/dL Hct 20.8 L* (41-53) % MCV 99.1 (80-100) fL MCH 32.9 (26-34) PG MCHC 33.2 (30-36) % RDW 20.1 H (11.6-14.8) % Plt Count 10 L* (150-400) X10^3/uL Neut % (Auto) 86.1 H (50-75) % Lymph % (Auto) 5.9 L (25-40) % Floyd % (Auto) 7.5 (3-14) % Eos % (Auto) 0.2 L (2-4) % Baso % (Auto) 0.3 (0-2) % Neut # (Auto) 3700 (6774-5287) /uL Lymph # (Auto) 300 L (3993-4963) /uL Floyd # (Auto) 300 (0-900) /uL Eos # (Auto) 0 (0-450) /uL Baso # (Auto) 0 (0-100) /uL Platelet Estimate RBC Morphology See below Poikilocytosis Anisocytosis 1+ H Sodium 129 L (137-145) mmol/L Potassium 5.5 H (3.4-5.1) mmol/L Chloride 105 (98-107) mmol/L Carbon Dioxide 15 L (22-32) mmol/L BUN 40 H (9-20) mg/dL Creatinine 2.51 H (0.66-1.25) mg/dL Estimated GFR 31 L (>60) mL/min BUN/Creatinine Ratio 15.9 (6-22) Glucose 168 H (70-100) mg/dL Lactate (0.7-2.1) mmol/L Calcium 6.4 L* (8.4-10.2) mg/dL Phosphorus (2.5-4.5) mg/dL Magnesium (1.6-2.3) mg/dL Total Bilirubin 0.4 (0.2-1.3) mg/dL AST 33 (17-59) IU/L ALT 19 (<50) IU/L Alkaline Phosphatase 103 (38-126) U/L Total Protein 6.0 L (6.3-8.2) g/dL Albumin 3.0 L (3.5-5.0) g/dL Globulin 3.0 (1.7-4.1) g/dL Albumin/Globulin Ratio 1.0 (1.0-2.8) Lipase (23-300) U/L Urine RBC (0-5/HPF) Urine WBC (0-5/HPF) Ur Squamous Epith Cells (0-5/HPF) Urine Bacteria (None) Ur Culture Indicated? Ur Random Sodium (30-90) mmol/L Urine Creatinine mg/dL Ethyl Alcohol ( - 10) mg/dL Blood Type A Positive Antibody Screen Negative Crossmatch See Detail Urine Dip Bedside Urine Glucose Negative Bedside Urine Bilirubin - Negative Bedside Urine Ketone - Negative Urine Specific [place] 1.015 Bedside Urine Occult Blood - Negative Bedside Urine pH 5.5 Bedside Urine Protein + 30 Bedside Urine Urobilinogen - Negative Bedside Urine Nitrite - Negative Bedside Urine Leukocytes - Negative Esterase Point of care testing: Urine Dip Bedside Urine Glucose Negative Bedside Urine Bilirubin - Negative Bedside Urine Ketone - Negative Urine Specific [place] 1.015 Bedside Urine Occult Blood - Negative Bedside Urine pH 5.5 Bedside Urine Protein + 30 Bedside Urine Urobilinogen - Negative Bedside Urine Nitrite - Negative Bedside Urine Leukocytes - Negative Esterase Imaging Data US - DVT: Radiologist's Impression: PROCEDURE:? US PERIPH VENOUS LOW EXTREM RT ? INDICATIONS:? SWELLING ? TECHNIQUE:? Real-time imaging, as well as color and pulse Doppler interrogation, were performed of the lower extremity deep veins from the inguinal ligament to the popliteal fossa, with documentation of the visualized calf veins.? ? COMPARISON:? [facility], CT, CT KIDNEY URETER BLADDER (KUB), 10/16/2022, 15:44.? [facility], US, US PERIPH VENOUS LOW EXTREM RT, 12/11/2020, 14:49. ? FINDINGS:? The common femoral, femoral, popliteal, and the visualized calf veins are normally compressible, and free of intraluminal thrombus.? Color and pulse Doppler demonstrate normal phasic intraluminal flow.? There is normal augmentation response to distal compression maneuver.? There is an enlarged right inguinal lymph node measures 4.2 x 2.1 x 0.9 cm. ? ? IMPRESSION:? ? 1. No findings of lower extremity deep venous thrombosis. ? 2. Enlarged right inguinal lymph node recommend clinical follow-up and imaging follow-up as clinically indicated.? ECG Data Attestation: I personally reviewed and interpreted this ECG as follows: Interpretation: Sinus rhythm Ventricular rate is 77 Normal axis Normal QRS Normal QTC No ST T wave changes MDM Narrative Medical decision making narrative: Patient has CML. Is on chemotherapy. Has a ride warm swollen right lower extremity. Has multiple potential reasons for an infection. DVT negative right lower extremity. Was started on antibiotics. Care turned over to Dr. Tirado to follow-up and disposition. Dr Tirado Care established. Patient is independently evaluated. Chart is reviewed. CBC does not show significant leukocytosis but he does have significant left shift and is on chemotherapy for CLL. Also shows mild chronic anemia at 8.2 and 24.6 Chemistries show relative hyponatremia at 1:30 a.m.. Potassium is slightly elevated at 5.4. New creatinine increased from baseline of 1.9 up to 2.7. Calcium is stable and chronically low. Phosphorus is elevated at 5.7, magnesium elevated at 2.7. Liver studies are unremarkable Lipase is within normal limits Urine is unremarkable Lactic acid is appropriate at 1.0 Blood cultures are pending. Imaging studies: Vascular ultrasound does not show DVT of the swollen red right leg. 47-year-old gentleman currently on dasatinib oral chemotherapy for his chronic CLL with the right lower extremity cellulitis no evidence of acute sepsis but does show acute kidney injury. We will review with hospitalist at [facility] to see if this person may be admitted here however if renal function is worsening he may need transfer for Nephrology consultation. Did discuss with [facility] and they did not have beds available earlier this evening. 930pm [facility] still has no beds available. Care is discussed with the hospitalist, Dr Velasquez, here at [facility], given the renal function and oral chemotherapy concerns he agreed that looking for beds to transfer out would be most appropriate. We will continue that search this evening. [facility]30pm [facility] Talk[facility] with Dr Garcia, hospitalist at [facility]. They do not currently have beds but he is on their waiting list. In the meantime will continue his care here. He is had a total of 1500 cc of fluid we will give him an additional bolus of fluid at this point he has had small amount of dinner. Will recheck morning labs and if renal function improves he may be able to stay at this hospital. 430am patient is complaining of increasing pain in the leg with cellulitis and notes that he usually gets a full mg of Dilaudid rather than half a mg when he is in the hospital. Also notes that he takes Ativan 3 times a day is requesting this and with the door closed to the room he notes that he is dramatically short of breath and requests his albuterol. On re-evaluation there are no wheezes, rhonchi, blood pressure, heart rate and oxygen saturations on room air are all appropriate. No signs of volume overload or acute respiratory distress. Dr daly 12/27/22: Resumed care patient. Reviewed patient's overnight events. This morning his creatinine is improving. His potassium is staying the same. His FeNA calculates out to prerenal. Has been getting fluids. Has not clinically fluid overloaded. His H and H and platelets are low this morning. Transfusions were ordered. Discuss this with the patient. Patient has been accepted at [facility] in [place]. Dr. Tirado as an evening talked with Dr. Garcia who accepts the patient for transfer. I did not have specific interaction with a provider at [facility]. Patient is stable for transport. <Tere Tirado MD - Last Filed: 12/27/22 18:02> Lab Data Labs: Lab Results 12/26/22 12/26/22 12/26/22 Range/Units 15:05 15:05 15:05 WBC 7.9 (4.5-11.0) X10^3/uL RBC 2.47 L (4.5-5.9) X10^6/uL Hgb 8.2 L (13.5-17.5) g/dL Hct 24.6 L (41-53) % MCV 99.6 (80-100) fL MCH 33.2 (26-34) PG MCHC 33.3 (30-36) % RDW 20.9 H (11.6-14.8) % Plt Count 37 L (150-400) X10^3/uL Neut % (Auto) 91.6 H (50-75) % Lymph % (Auto) 4.2 L (25-40) % Floyd % (Auto) 3.7 (3-14) % Eos % (Auto) 0.0 L (2-4) % Baso % (Auto) 0.5 (0-2) % Neut # (Auto) 7200 H (1340-6639) /uL Lymph # (Auto) 300 L (0952-6764) /uL Floyd # (Auto) 300 (0-900) /uL Eos # (Auto) 0 (0-450) /uL Baso # (Auto) 0 (0-100) /uL Platelet Estimate Decreased on smear RBC Morphology See below Poikilocytosis 1+ H Anisocytosis 1+ H Sodium 130 L (137-145) mmol/L Potassium 5.4 H (3.4-5.1) mmol/L Chloride 102 (98-107) mmol/L Carbon Dioxide 17 L (22-32) mmol/L BUN 40 H (9-20) mg/dL Creatinine 2.74 H (0.66-1.25) mg/dL Estimated GFR 28 L (>60) mL/min BUN/Creatinine Ratio 14.6 (6-22) Glucose 169 H D (70-100) mg/dL Lactate 1.0 (0.7-2.1) mmol/L Calcium 6.6 L (8.4-10.2) mg/dL Phosphorus 5.7 H (2.5-4.5) mg/dL Magnesium 2.7 H (1.6-2.3) mg/dL Total Bilirubin 0.5 (0.2-1.3) mg/dL AST 41 (17-59) IU/L ALT 23 (<50) IU/L Alkaline Phosphatase 111 (38-126) U/L Total Protein 6.9 (6.3-8.2) g/dL Albumin 3.6 (3.5-5.0) g/dL Globulin 3.3 (1.7-4.1) g/dL Albumin/Globulin Ratio 1.1 (1.0-2.8) Lipase < 10 L (23-300) U/L Urine RBC (0-5/HPF) Urine WBC (0-5/HPF) Ur Squamous Epith Cells (0-5/HPF) Urine Bacteria (None) Ur Culture Indicated? Ur Random Sodium (30-90) mmol/L Urine Creatinine mg/dL Ethyl Alcohol < 10 ( - 10) mg/dL Blood Type Antibody Screen Crossmatch 12/26/22 12/26/22 12/26/22 Range/Units 17:26 17:26 21:06 WBC (4.5-11.0) X10^3/uL RBC (4.5-5.9) X10^6/uL Hgb (13.5-17.5) g/dL Hct (41-53) % MCV (80-100) fL MCH (26-34) PG MCHC (30-36) % RDW (11.6-14.8) % Plt Count (150-400) X10^3/uL Neut % (Auto) (50-75) % Lymph % (Auto) (25-40) % Floyd % (Auto) (3-14) % Eos % (Auto) (2-4) % Baso % (Auto) (0-2) % Neut # (Auto) (0312-1564) /uL Lymph # (Auto) (5197-3043) /uL Floyd # (Auto) (0-900) /uL Eos # (Auto) (0-450) /uL Baso # (Auto) (0-100) /uL Platelet Estimate RBC Morphology Poikilocytosis Anisocytosis Sodium 130 L (137-145) mmol/L Potassium 5.5 H (3.4-5.1) mmol/L Chloride 104 (98-107) mmol/L Carbon Dioxide 18 L (22-32) mmol/L BUN 42 H (9-20) mg/dL Creatinine 2.54 H (0.66-1.25) mg/dL Estimated GFR 31 L (>60) mL/min BUN/Creatinine Ratio 16.5 (6-22) Glucose 151 H (70-100) mg/dL Lactate (0.7-2.1) mmol/L Calcium 6.0 L* (8.4-10.2) mg/dL Phosphorus (2.5-4.5) mg/dL Magnesium (1.6-2.3) mg/dL Total Bilirubin (0.2-1.3) mg/dL AST (17-59) IU/L ALT (<50) IU/L Alkaline Phosphatase (38-126) U/L Total Protein (6.3-8.2) g/dL Albumin (3.5-5.0) g/dL Globulin (1.7-4.1) g/dL Albumin/Globulin Ratio (1.0-2.8) Lipase (23-300) U/L Urine RBC 1-5/hpf (0-5/HPF) Urine WBC 1-5/hpf (0-5/HPF) Ur Squamous Epith Cells None seen (0-5/HPF) Urine Bacteria None seen (None) Ur Culture Indicated? Cult not indicated Ur Random Sodium 9 L (30-90) mmol/L Urine Creatinine 88.6 mg/dL Ethyl Alcohol ( - 10) mg/dL Blood Type Antibody Screen Crossmatch 12/27/22 12/27/22 12/27/22 Range/Units 06:35 06:35 07:23 WBC 4.3 L (4.5-11.0) X10^3/uL RBC 2.09 L (4.5-5.9) X10^6/uL Hgb 6.9 L* (13.5-17.5) g/dL Hct 20.8 L* (41-53) % MCV 99.1 (80-100) fL MCH 32.9 (26-34) PG MCHC 33.2 (30-36) % RDW 20.1 H (11.6-14.8) % Plt Count 10 L* (150-400) X10^3/uL Neut % (Auto) 86.1 H (50-75) % Lymph % (Auto) 5.9 L (25-40) % Floyd % (Auto) 7.5 (3-14) % Eos % (Auto) 0.2 L (2-4) % Baso % (Auto) 0.3 (0-2) % Neut # (Auto) 3700 (9645-2343) /uL Lymph # (Auto) 300 L (2662-6214) /uL Floyd # (Auto) 300 (0-900) /uL Eos # (Auto) 0 (0-450) /uL Baso # (Auto) 0 (0-100) /uL Platelet Estimate RBC Morphology See below Poikilocytosis Anisocytosis 1+ H Sodium 129 L (137-145) mmol/L Potassium 5.5 H (3.4-5.1) mmol/L Chloride 105 (98-107) mmol/L Carbon Dioxide 15 L (22-32) mmol/L BUN 40 H (9-20) mg/dL Creatinine 2.51 H (0.66-1.25) mg/dL Estimated GFR 31 L (>60) mL/min BUN/Creatinine Ratio 15.9 (6-22) Glucose 168 H (70-100) mg/dL Lactate (0.7-2.1) mmol/L Calcium 6.4 L* (8.4-10.2) mg/dL Phosphorus (2.5-4.5) mg/dL Magnesium (1.6-2.3) mg/dL Total Bilirubin 0.4 (0.2-1.3) mg/dL AST 33 (17-59) IU/L ALT 19 (<50) IU/L Alkaline Phosphatase 103 (38-126) U/L Total Protein 6.0 L (6.3-8.2) g/dL Albumin 3.0 L (3.5-5.0) g/dL Globulin 3.0 (1.7-4.1) g/dL Albumin/Globulin Ratio 1.0 (1.0-2.8) Lipase (23-300) U/L Urine RBC (0-5/HPF) Urine WBC (0-5/HPF) Ur Squamous Epith Cells (0-5/HPF) Urine Bacteria (None) Ur Culture Indicated? Ur Random Sodium (30-90) mmol/L Urine Creatinine mg/dL Ethyl Alcohol ( - 10) mg/dL Blood Type A Positive Antibody Screen Negative Crossmatch See Detail Urine Dip Bedside Urine Glucose Negative Bedside Urine Bilirubin - Negative Bedside Urine Ketone - Negative Urine Specific [place] 1.015 Bedside Urine Occult Blood - Negative Bedside Urine pH 5.5 Bedside Urine Protein + 30 Bedside Urine Urobilinogen - Negative Bedside Urine Nitrite - Negative Bedside Urine Leukocytes - Negative Esterase Point of care testing: Urine Dip Bedside Urine Glucose Negative Bedside Urine Bilirubin - Negative Bedside Urine Ketone - Negative Urine Specific [place] 1.015 Bedside Urine Occult Blood - Negative Bedside Urine pH 5.5 Bedside Urine Protein + 30 Bedside Urine Urobilinogen - Negative Bedside Urine Nitrite - Negative Bedside Urine Leukocytes - Negative Esterase MDM Narrative Medical decision making narrative: Patient has CML. Is on chemotherapy. Has a ride warm swollen right lower extremity. Has multiple potential reasons for an infection. DVT negative right lower extremity. Was started on antibiotics. Care turned over to Dr. Tirado to follow-up and disposition. Dr Tirado Care established. Patient is independently evaluated. Chart is reviewed. CBC does not show significant leukocytosis but he does have significant left shift and is on chemotherapy for CLL. Also shows mild chronic anemia at 8.2 and 24.6 Chemistries show relative hyponatremia at 1:30 a.m.. Potassium is slightly elevated at 5.4. New creatinine increased from baseline of 1.9 up to 2.7. Calcium is stable and chronically low. Phosphorus is elevated at 5.7, magnesium elevated at 2.7. Liver studies are unremarkable Lipase is within normal limits Urine is unremarkable Lactic acid is appropriate at 1.0 Blood cultures are pending. Imaging studies: Vascular ultrasound does not show DVT of the swollen red right leg. 47-year-old gentleman currently on dasatinib oral chemotherapy for his chronic CLL with the right lower extremity cellulitis no evidence of acute sepsis but does show acute kidney injury. We will review with hospitalist at [facility] to see if this person may be admitted here however if renal function is worsening he may need transfer for Nephrology consultation. Did discuss with [facility] and they did not have beds available earlier this evening. 930pm [facility] still has no beds available. Care is discussed with the hospitalist, Dr Velasquez, here at [facility], given the renal function and oral chemotherapy concerns he agreed that looking for beds to transfer out would be most appropriate. We will continue that search this evening. 1030pm [facility] has no beds. Talked with Dr Garcia, hospitalist at [facility]. They do not currently have beds but he is on their waiting list. In the meantime will continue his care here. He is had a total of 1500 cc of fluid we will give him an additional bolus of fluid at this point he has had small amount of dinner. Will recheck morning labs and if renal function improves he may be able to stay at this hospital. 430am patient is complaining of increasing pain in the leg with cellulitis and notes that he usually gets a full mg of Dilaudid rather than half a mg when he is in the hospital. Also notes that he takes Ativan 3 times a day is requesting this and with the door closed to the room he notes that he is dramatically short of breath and requests his albuterol. On re-evaluation there are no wheezes, rhonchi, blood pressure, heart rate and oxygen saturations on room air are all appropriate. No signs of volume overload or acute respiratory distress. Critical Care Time <Jermaine Daly DO - Last Filed: 12/27/22 11:11> Critical Care Time Critical Care Time: Yes Total Critical Care Time: 35 Attestation: The high probability of a clinically significant, sudden or life threatening deterioration of the [renal, hematologic] system(s) required my full and direct attention, intervention and personal management. The aggregate critical care time was [35] minutes. This time is in addition to time spent performing reported procedures but includes the following: [x] Data Review and interpretation []x Patient assessment and monitoring of vital signs [x] Documentation [x] Medication orders and management Discharge Plan Departure Patient Disposition: [facility] Clinical Impression: Acute kidney injury, Hypocalcemia, Cellulitis of lower leg, Chronic lymphocytic leukemia Prescriptions: No Action (DME) BD U/F Hilda Pen Needle [id number] 0 .Route .MEDSUPPLY Qty: 100 3RF Dose Instruction: As directed Rx Instructions: BD U/F Hilda Pen Needle [id number] use as directed with insulin insulin lispro [Humalog KwikPen Insulin] 100 unit/mL insulin pen 1 - 12 unit subcut TIDCC Qty: 1 3RF Patient Comments: patient states none today lactulose [Constulose] 10 gram/15 mL solution 15 ml PO DAILY Qty: 473 6RF Sprycel 100 mg tablet 100 mg PO DAILY Patient Comments: pt started for his CML pregabalin 25 mg capsule 25 mg PO TID Qty: 270 0RF glucagon HCl [Glucagon (HCl) Emergency Kit] 1 mg recon soln 1 mg SUBCUT Q20M PRN (Reason: hypoglycemia) Qty: 2 0RF Rx Instructions: until target blood sugar attained insulin glargine [Lantus Solostar U-100 Insulin] 100 unit/mL (3 mL) insulin pen 20 unit SUBCUT DAILY Qty: 15 3RF (DME) Dexcom G6 Sensor Device See Rx Instructions .Route Qty: 3 5RF Rx Instructions: As directed (DME) Dexcom G6 Transmitter Device See Rx Instructions .Route Qty: 1 3RF Rx Instructions: As directed lorazepam 1 mg tablet 1 mg PO TID PRN (Reason: nauseas) Referrals: Zakia Kidd DO [Primary Care Provider] -
[2022-12-26 15:29] LABS: Add Manual Diff / Slide Review NO; Basophils Absolute Auto 0 /uL (0-100); Basophils Percent Auto 0.5 % (0-2); Eosinophils Absolute Auto 0 /uL (0-450); Hematocrit 24.6 % (41-53); Hemoglobin 8.2 g/dL (13.5-17.5); Lymphocytes Absolute Auto 300 /uL (1100-4500); Lymphocytes Percent Auto 4.2 % (25-40); Mean Corpuscular HGB Conc 33.3 % (30-36); Mean Corpuscular Hemoglobin 33.2 PG (26-34); Mean Corpuscular Volume 99.6 fL (80-100); Monocytes Absolute Auto 300 /uL (0-900); Monocytes Percent Auto 3.7 % (3-14); Neutrophils Absolute Auto 7200 /uL (1500-7000); Neutrophils Percent Auto 91.6 % (50-75); Platelet Count 37 X10^3/uL (150-400); Red Blood Cell Count 2.47 X10^6/uL (4.5-5.9); Red Cell Distribution Width 20.9 % (11.6-14.8); White Blood Cell Count 7.9 X10^3/uL (4.5-11.0)
[2022-12-26 15:39] LABS: Alanine Aminotransferase 23 IU/L (<50); Albumin 3.6 g/dL (3.5-5.0); Albumin Globulin Ratio 1.1 (1.0-2.8); Alkaline Phosphatase 111 U/L (38-126); Aspartate Aminotransferase 41 IU/L (17-59); BUN Creatinine Ratio 14.6 (6-22); Bilirubin Total 0.5 mg/dL (0.2-1.3); Blood Urea Nitrogen 40 mg/dL (9-20); Calcium 6.6 mg/dL (8.4-10.2); Carbon Dioxide 17 mmol/L (22-32); Chloride 102 mmol/L (98-107); Estimated Glomerular Filt Rate 28 mL/min (>60); Ethanol (ETOH) < 10 mg/dL; Globulin 3.3 g/dL (1.7-4.1); Glucose 169 mg/dL (70-100); HEMOLYSIS < 15 (0-50); Magnesium 2.7 mg/dL (1.6-2.3); Phosphorous 5.7 mg/dL (2.5-4.5); Sodium 130 mmol/L (137-145); Total Protein 6.9 g/dL (6.3-8.2)
[2022-12-26] MEDS: HYDROMORPHONE 1 MG INJ IV (15:39)
[2022-12-26 15:43] LABS: Potassium 5.4 mmol/L (3.4-5.1)
[2022-12-26 15:44] LABS: Lipase < 10 U/L (23-300)
[2022-12-26] MEDS: SODIUM CHLORIDE 0.9% 1,000 ML 1000 ML IV ×2 (15:50→22:38)
[2022-12-26] MEDS: HYDROMORPHONE 0.5 MG INJ IV ×3 (17:30→22:38)
[2022-12-26] MEDS: cefTRIAXone 1,000 MG in SODIUM CHLORIDE 0.9% 100 ML 200 MG IV (18:02)
[2022-12-26] MEDS: SODIUM CHLORIDE 0.9% 1,000 ML 125 ML IV (18:13)
[2022-12-26 18:14] LABS: Bacteria Urine None Seen; Culture Indicated Urine Cult Not Indicated; RBC Urine 1-5/HPF (0-5/HPF); Squamous Epithelial Cell Urine None Seen (0-5/HPF); WBC Urine 1-5/HPF (0-5/HPF)
[2022-12-26 18:18] LABS: Anisocytosis 1+; Platelet Estimate Decreased on smear; Poikilocytosis 1+
[2022-12-26 18:24] LABS: Creatinine Urine Random 88.6 mg/dL; Sodium Urine Random 9 mmol/L (30-90)
[2022-12-26] MEDS: VANCOMYCIN 1,000 MG/200 ML PIGGYBACK 200 MG IV (19:06)
[2022-12-26 21:25] LABS: BUN Creatinine Ratio 16.5 (6-22); Blood Urea Nitrogen 42 mg/dL (9-20); Carbon Dioxide 18 mmol/L (22-32); Chloride 104 mmol/L (98-107); Estimated Glomerular Filt Rate 31 mL/min (>60); Glucose 151 mg/dL (70-100); HEMOLYSIS < 15 (0-50); Sodium 130 mmol/L (137-145)
[2022-12-26 21:27] LABS: Potassium 5.5 mmol/L (3.4-5.1)
[2022-12-26] MEDS: CALCIUM CARBONATE 500 MG TAB 1000 MG PO (21:43)
[2022-12-26] MEDS: LORazepam 0.5 MG TABLET 1 MG PO (21:56)
--- NOTE | 2022-12-26 23:33 | PC.NURSE ---
Pt moved to RM 12 on hospital bed for boarding. Attempted to ambulate patient, pt unable to do so safely. Pt unsteady on his feet, reports feeling extremely weak in his legs. Pt assisted to wheelchair and acclimated to room 12. Padded dressing placed on pressure sore to coccyx, about quarter size, slightly tunneled, no drainage, pink.
[2022-12-27] VITALS (43 sets, daily range): BP systolic 113–176; BP diastolic 55–88; PULSE 67–94; RESP 9–25; TEMP 36.7–36.9; O2SAT 84–100; BMI 19.8
--- NOTE | 2022-12-27 00:37 | PC.NURSE ---
Pt declined wanting staff to position patient every 2 hours with pillows to prevent further worsening pressure ulcers. Pt is educated on frequent shifts in positions while in bed. Pt reports he will turn and shift himself and he is aware of the risks of worsening pressure ulcers if not doing so.
[2022-12-27] MEDS: HYDROMORPHONE 0.5 MG INJ IV (01:20)
--- NOTE | 2022-12-27 01:37 | PC.NURSE ---
Pt given dasatinib 100mg 1 tab at this time. Okay per provider.
[2022-12-27] MEDS: SODIUM CHLORIDE 0.9% 1,000 ML 125 ML IV (02:51)
--- NOTE | 2022-12-27 02:54 | PC.NURSE ---
Pt with complaints of worsening BLE pain. Requesting 1mg of dilaudid. Pt reports he always gets 1mg when he is here, pt reports 0.5mg of dilaudid is not effective. Pt also with complaints of worsening shortness of breath. VSS. Dr. Tirado at the bedside assessing patient. See MAR for medication changes.
[2022-12-27] MEDS: HYDROMORPHONE 0.5 MG INJ 1 MG IV ×2 (03:33→07:38)
[2022-12-27] MEDS: LORazepam 0.5 MG TABLET 1 MG PO (03:38)
[2022-12-27] MEDS: ALBUTEROL 2.5 MG/3 ML NEB (ADULT) INH (04:41)
[2022-12-27 07:01] LABS: Add Manual Diff / Slide Review NO; Basophils Absolute Auto 0 /uL (0-100); Basophils Percent Auto 0.3 % (0-2); Eosinophils Absolute Auto 0 /uL (0-450); Eosinophils Percent Auto 0.2 % (2-4); Lymphocytes Absolute Auto 300 /uL (1100-4500); Lymphocytes Percent Auto 5.9 % (25-40); Mean Corpuscular HGB Conc 33.2 % (30-36); Mean Corpuscular Hemoglobin 32.9 PG (26-34); Mean Corpuscular Volume 99.1 fL (80-100); Monocytes Absolute Auto 300 /uL (0-900); Neutrophils Absolute Auto 3700 /uL (1500-7000); Neutrophils Percent Auto 86.1 % (50-75); Red Blood Cell Count 2.09 X10^6/uL (4.5-5.9); Red Cell Distribution Width 20.1 % (11.6-14.8); White Blood Cell Count 4.3 X10^3/uL (4.5-11.0)
[2022-12-27 07:06] LABS: Alanine Aminotransferase 19 IU/L (<50); Alkaline Phosphatase 103 U/L (38-126); Aspartate Aminotransferase 33 IU/L (17-59); BUN Creatinine Ratio 15.9 (6-22); Bilirubin Total 0.4 mg/dL (0.2-1.3); Blood Urea Nitrogen 40 mg/dL (9-20); Carbon Dioxide 15 mmol/L (22-32); Chloride 105 mmol/L (98-107); Estimated Glomerular Filt Rate 31 mL/min (>60); Glucose 168 mg/dL (70-100); HEMOLYSIS < 15 (0-50); Sodium 129 mmol/L (137-145)
[2022-12-27 07:21] LABS: Potassium 5.5 mmol/L (3.4-5.1)
[2022-12-27 07:24] LABS: Calcium 6.4 mg/dL (8.4-10.2)
[2022-12-27 07:29] LABS: Hematocrit 20.8 % (41-53); Hemoglobin 6.9 g/dL (13.5-17.5); Platelet Count 10 X10^3/uL (150-400)
[2022-12-27 07:30] LABS: Monocytes Percent Auto 7.5 % (3-14)
[2022-12-27 07:34] LABS: Anisocytosis 1+
[2022-12-27] MEDS: CALCIUM GLUCONATE 4.65 MEQ in SODIUM CHLORIDE 0.9% 50 ML 180 MEQ IV (08:54)
[2022-12-27] MEDS: LORazepam 1 MG TABLET PO (08:55)
[2022-12-27] MEDS: METHADONE 10 MG TABLET PO (08:55)
[2022-12-27] MEDS: PREGABALIN 25 MG CAPSULE PO (08:55)
[2022-12-27] MEDS: TORSEMIDE 100 MG TABLET 50 MG PO (08:57)
--- NOTE | 2022-12-27 10:14 | PC.NURSE ---
Pt c/o shortness of breath. Lung sounds re-assessed and are clear. Pt endorses anxiety. Reports improvement in SOB after a few minutes.
--- NOTE | 2022-12-27 10:40 | PC.NURSE ---
Gave report to José Miguel SOLIS with [facility]. Assisted pt to commode again. Provided brief. Pt denies dyspnea. Pt A&Ox4 on departure. PRBCs infusing on departure. Platelets had not yet arrived at hospital at time of departure; blood bank notified that pt is leaving.
--- NOTE | 2022-12-27 11:13 | PC.NURSE ---
Called report to WILL Byrnes
== END 2022-12-27 10:45 | disposition short-term general hospital (02) ==
PROVIDERS: Emergency Medicine; Emergency Provider Emergency Medicine; PCP Family Medicine
DX: N17.9 Acute kidney failure, unspecified (principal); L03.115 Cellulitis of right lower limb; R06.02 Shortness of breath; E83.51 Hypocalcemia; C91.10 Chronic lymphocytic leukemia of B-cell type not having achieved remission
CPT/HCPCS: 36415; 36430; 80048; 80053; 80320; 81003; 81015; 82570; 83605; 83690; 83735; 84100; 84300; 85025; 86850; 86900; 86901; 87040; 93005; 93010; 93971; 94640; 96361; 96365; 96367; 96375; 96376; 99285; P9016; J0612; J0696; J1170; J7613

== ENCOUNTER → 2023-01-05 14:18 | Outpatient (CLI) | payer OTHER, MEDICAID, SELFPAY ==
[2022-12-27 00:30] VITALS: BMI 19.8
== END ==
PROVIDERS: PCP Family Medicine; Referring Provider Podiatrist; Visit Provider Surgery
DX: E11.621 Type 2 diabetes mellitus with foot ulcer (principal); L97.412 Non-pressure chronic ulcer of right heel and midfoot with fat layer exposed; L97.522 Non-pressure chronic ulcer of other part of left foot with fat layer exposed; L84 Corns and callosities; L89.153 Pressure ulcer of sacral region, stage 3; R60.0 Localized edema; E11.40 Type 2 diabetes mellitus with diabetic neuropathy, unspecified; C92.91 Myeloid leukemia, unspecified in remission; F10.21 Alcohol dependence, in remission; F11.91 Opioid use, unspecified, in remission; F17.221 Nicotine dependence, chewing tobacco, in remission; Z92.21 Personal history of antineoplastic chemotherapy
CPT/HCPCS: 11042; 97597; 99212; 99214

== ENCOUNTER → 2023-01-18 09:47 | Outpatient (CLI) | payer OTHER, MEDICAID, SELFPAY ==
[2022-12-27 00:30] VITALS: BMI 19.8
== END ==
PROVIDERS: PCP Family Medicine; Referring Provider Podiatrist; Visit Provider Surgery
DX: E11.621 Type 2 diabetes mellitus with foot ulcer (principal); E11.628 Type 2 diabetes mellitus with other skin complications; L97.522 Non-pressure chronic ulcer of other part of left foot with fat layer exposed; L89.153 Pressure ulcer of sacral region, stage 3; E11.40 Type 2 diabetes mellitus with diabetic neuropathy, unspecified; L84 Corns and callosities
CPT/HCPCS: 11042

== ENCOUNTER 2023-01-18 17:28 | Emergency (ER) | payer OTHER, MEDICAID, SELFPAY ==
[2022-12-27 00:30] VITALS: BMI 19.8
--- NOTE | 2023-01-18 17:47 | PC.NURSE ---
Went to call for triage at 1747, unable to locate.
--- NOTE | 2023-01-18 18:05 | PC.NURSE ---
Attempted to locate patient for triage, unable to find at 1805.
--- NOTE | 2023-01-18 18:18 | PC.NURSE ---
Unable to locate patient for triage @ 1818. Will [facility]DC according to protocol and attempts to locate.
== END 2023-01-18 18:19 | disposition left against medical advice (07) ==
PROVIDERS: Emergency Provider Emergency Medicine; PCP Family Medicine

== ENCOUNTER 2023-01-24 16:17 | Emergency (ER) | payer OTHER, MEDICAID, SELFPAY ==
[2022-12-27 00:30] VITALS: BMI 19.8
[2023-01-24 16:28] VITALS: BP 142/77; PULSE 77; RESP 18; TEMP 37; O2SAT 99; BMI 19.8
--- NOTE | 2023-01-24 16:40 | ED.WEAKNESS ---
HPI - Weakness General Chief complaint: Weakness Stated complaint: cancer/plate low Time Seen by Provider: 01/24/23 16:28 Source: patient Mode of arrival: Ambulatory Limitations: no limitations History of Present Illness HPI Narrative: 47-year-old male, former polysubstance abuse with history of chronic myeloid leukemia, hepatitis, prior osteomyelitis of the spine, diabetes who is on oral chemotherapy who presents with concern for low platelets and feeling weak and shaky. Patient states his sugar has also been low and a little bit difficult to control. He states he has been eating and drinking but continued to run low. Patient states no fevers or chills. No syncope. He states no headache, he denies any cough cold or congestive symptoms. No chest pain or pressure, denies shortness of breath. He is had some nausea but no vomiting, he states he has been having bowel movements no black or bloody stools. He has some urinary frequency but relates this to taking a diuretic. Patient states he is on oral narcotics he initially states methadone 4 times daily when asked if it might be oxycodone he thinks it is methadone but we discussed this seems less likely and he states he is not sure. Patient states he is on oral chemotherapy agent. No active infusions. He does use insulin for his diabetes. Allergic to adhesive been latex. Former tobacco user does use smokeless tobacco still, does drink alcohol daily last drink was 3:00 p.m. yesterday, uses marijuana denies any other recreational drugs. Patient follows with oncology at [facility]. States he would a blood draw about 2 weeks ago states he was supposed to receive a transfusion but did not he is unclear as to why that did not occur. Related Data Home Medications Medication Instructions Recorded Confirmed lorazepam 1 mg tablet 1 mg PO TID PRN nauseas 03/09/22 10/17/22 dasatinib 100 mg tablet (Sprycel) 100 mg PO DAILY 05/11/22 12/27/22 Previous Rx's Medication Instructions Recorded BD U/F Hilda Pen Needle [id number] #100 ea 06/13/18 insulin lispro 100 unit/mL 1 - 12 unit (0.01 - 0.12 mL) 05/11/22 subcutaneous pen (Humalog KwikPen SUBCUT [facility] #1 ea (U-100) Insulin) lactulose 10 gram/15 mL oral 15 ml PO DAILY #473 mL 05/11/22 solution (Constulose) glucagon HCl 1 mg solution for 1 mg SUBCUT Q20M PRN hypoglycemia 10/23/22 injection (Glucagon (HCl) #2 ea Emergency Kit) Lantus Solostar U-100 Insulin 100 20 unit (0.2 mL) SUBCUT DAILY #15 11/03/22 unit/mL (3 mL) subcutaneous pen mL (insulin glargine) blood-glucose sensor (Dexcom G6 #3 ea 11/06/22 Sensor device) blood-glucose transmitter (Dexcom #1 ea 11/06/22 G6 Transmitter device) pregabalin 25 mg capsule 25 mg PO TID #90 caps 01/19/23 Allergies Allergy/AdvReac Type Severity Reaction Status Date / Time adhesive Allergy Intermediate rash, skin Verified 01/24/23 17:09 tear latex [LATEX] Allergy Unknown rash, skin Verified 01/24/23 17:09 tear Review of Systems Review of Systems ROS Unobtainable: All systems reviewed & are unremarkable except as noted in HPI and below Patient History Medical History Ataxia Cervical radiculopathy Cervicalgia Cancer of blood vessel Pancytopenia Chronic, continuous use of opioids Central cord syndrome at C3 level of cervical spinal cord Thrombocytopenia Alcoholism Insulin dependent diabetes mellitus CML (chronic myelocytic leukemia) Surgical History Status post appendectomy Family History Grandfather Diabetes mellitus Mother Cancer History of heart disease Father Hyperlipidemia History of heart disease Social History household members: none Smoking Status: Former smoker Tobacco: How many years used: 10 Smokeless tobacco user: chewing tobacco (current ) quit status: considering quitting alcohol intake: former (Quit 2018 ) substance use type: former substance user (Quit 2011), marijuana (Current marijuana ) and opiates (former ) Smoking Status: Former smoker tobacco type: cigarettes and smokeless tobacco alcohol intake frequency: 0-2 drinks per day Alcohol type: beer Substance Use Type: marijuana Exam Narrative Exam Narrative: GENERAL: Alert and oriented x three, thin, pale chronically ill-appearing male patient is sitting up on the edge of the bed without issue. HEENT: Head normocephalic, atraumatic, EOMI, pupils reactive, face symmetric, moist mucous membranes NECK: Supple, full range of motion CARDIOVASCULAR: Regular rate and rhythm without murmurs, rubs or gallops. No JVD. Patient does have 1+ swelling bilateral lower extremities. Patient states this is his normal baseline. RESPIRATORY: Breath sounds equal bilaterally, no wheezes rales or rhonchi. ABDOMEN: Soft, nontender. Nondistended. Normoactive bowel sounds all 4 quadrants. No guarding or rebound, rigidity, no mass : No CVA tenderness EXTREMITIES: Normal range of motion. Neurovascularly intact. Cap refill less than 2 seconds bilateral lower extremities. NEUROLOGICAL: Cranial nerves II through XII grossly intact. Moving all extremities SKIN: Warm, dry, no petechiae, no rashes or lesions. Initial Vital Signs Initial Vital Signs: Vital Signs Temperature 98.6 F 01/24/23 16:28 Pulse Rate 77 01/24/23 16:28 Respiratory Rate 18 01/24/23 16:28 Blood Pressure 142/77 H 01/24/23 16:28 Pulse Oximetry 99 01/24/23 16:28 Oxygen Delivery Method Room Air 01/24/23 16:28 Course Orders Ordered: Discontinued Medications Ondansetron HCl (Ondansetron 4 Mg/2 Ml Inj) 4 mg IV NOW ONE Stop: 01/24/23 16:38 Last Admin: 01/24/23 17:09 Dose: 4 mg Documented By: KIKI Oxycodone HCl (Oxycodone Ir 5 Mg Tablet) 5 mg PO NOW ONE Stop: 01/24/23 17:41 Last Admin: 01/24/23 17:47 Dose: 5 mg Documented By: KIKI Vital Signs Vital signs: Vital Signs - 8 hr 01/24/23 16:28 01/24/23 17:15 01/24/23 17:16 Temperature 98.6 F Pulse Rate 77 72 69 Respiratory Rate 18 Blood Pressure 142/77 H Pulse Oximetry 99 98 99 Oxygen Delivery Method Room Air 01/24/23 17:16 01/24/23 17:30 Temperature Pulse Rate 69 Respiratory Rate Blood Pressure 135/71 Pulse Oximetry 98 Oxygen Delivery Method Room Air MDM - Weakness Lab Data 01/24/23 16:46 01/24/23 16:46 Labs: Lab Results 01/24/23 Range/Units 16:46 WBC 3.1 L (4.5-11.0) X10^3/uL RBC 2.47 L (4.5-5.9) X10^6/uL Hgb 8.0 L (13.5-17.5) g/dL Hct 23.4 L (41-53) % MCV 94.6 (80-100) fL MCH 32.5 (26-34) PG MCHC 34.4 (30-36) % RDW 18.9 H (11.6-14.8) % Plt Count 74 L (150-400) X10^3/uL Neut % (Auto) 70.9 (50-75) % Lymph % (Auto) 14.7 L (25-40) % [place] % (Auto) 12.7 (3-14) % Eos % (Auto) 1.0 L (2-4) % Baso % (Auto) 0.7 (0-2) % Neut # (Auto) 2200 (7214-6759) /uL Lymph # (Auto) 500 L (1777-7612) /uL [place] # (Auto) 400 (0-900) /uL Eos # (Auto) 0 (0-450) /uL Baso # (Auto) 0 (0-100) /uL PT 13.4 H (10.1-12.7) SECONDS INR 1.2 (0.9-1.3) APTT 34 (26-36) SECONDS Sodium 133 L (137-145) mmol/L Potassium 4.6 (3.4-5.1) mmol/L Chloride 103 (98-107) mmol/L Carbon Dioxide 18 L (22-32) mmol/L BUN 34 H (9-20) mg/dL Creatinine 1.46 H (0.66-1.25) mg/dL Estimated GFR 59 L (>60) mL/min BUN/Creatinine Ratio 23.3 H (6-22) Glucose 90 (70-100) mg/dL Calcium 7.9 L (8.4-10.2) mg/dL Total Bilirubin 0.3 (0.2-1.3) mg/dL AST 37 (17-59) IU/L ALT 19 (<50) IU/L Alkaline Phosphatase 87 (38-126) U/L Total Protein 7.6 (6.3-8.2) g/dL Albumin 3.9 (3.5-5.0) g/dL Globulin 3.7 (1.7-4.1) g/dL Albumin/Globulin Ratio 1.1 (1.0-2.8) Lipase < 10 L (23-300) U/L Blood Type A Positive Antibody Screen Negative Point of Care Testing Glucose POC 101 MDM Narrative Medical decision making narrative: This is chronically ill 47-year-old male with chronic myeloid leukemia on oral chemotherapy, chronic pain, diabetes type 2 on insulin, alcoholic hepatitis and history of CHF. Patient does appear pale he is concerned his platelets maybe low he feels weak and shaky states his glucoses have been low. When 118 on most recent but patient states as low as 37 home. He did eat and drink which seemed to improve it. Labs were obtained, patient was given a dose of Zofran, IV. Patient requesting dose of oral oral pain medication for chronic pain. Patient's labs are appropriate hemoglobin is 8 appears more consistent with priors from earlier in December was 6.9 on 12/27, platelets are 74 today, white count 3.1. Sodium is 133 electrolytes are otherwise appropriate renal function actually appears improved at 1.46 from patient's 12/27/2022. Patient notes his glucose has been running lower but is appropriate here. Patient states he stopped using his Lantus about a week ago, his Dexcom he states does not seem to be working right but he thinks that it is calibrated. We are not able to check it here as he states the battery is dying or it is not working currently. Ask patient to continue to hold his Lantus as his sugars appear appropriate here in the department, he states he has been eating regularly but small meals asked to follow up with his primary care regarding his glucose. Patient defers any discharge instructions and states he can just share the information with his physician. He feels comfortable with this plan and no additional questions. Discharge Plan Departure Patient Disposition: Home Clinical Impression: Anemia, Thrombocytopenia Activity Restrictions/Additional Instructions: Your labs today appear to be at baseline, your hemoglobin is 8 your platelets are 74. Please follow-up with your physician Dr. Evans as needed. Please continue your home medications. Please return for new or worsening symptoms, passing out, new worsening chest pain, shortness of breath, persistent vomiting, signs of bleeding, inappropriate bruising or other new or concerning changes. Prescriptions: No Action (DME) BD U/F Hilda Pen Needle [id number] 0 .Route .MEDSUPPLY Qty: 100 3RF Dose Instruction: As directed Rx Instructions: BD U/F Hilda Pen Needle [id number] use as directed with insulin insulin lispro [Humalog KwikPen Insulin] 100 unit/mL insulin pen 1 - 12 unit subcut TIDCC Qty: 1 3RF Patient Comments: patient states none today lactulose [Constulose] 10 gram/15 mL solution 15 ml PO DAILY Qty: 473 6RF Sprycel 100 mg tablet 100 mg PO DAILY Patient Comments: pt started for his CML glucagon HCl [Glucagon (HCl) Emergency Kit] 1 mg recon soln 1 mg SUBCUT Q20M PRN (Reason: hypoglycemia) Qty: 2 0RF Rx Instructions: until target blood sugar attained insulin glargine [Lantus Solostar U-100 Insulin] 100 unit/mL (3 mL) insulin pen 20 unit SUBCUT DAILY Qty: 15 3RF (DME) Dexcom G6 Sensor Device See Rx Instructions .Route Qty: 3 5RF Rx Instructions: As directed (DME) Dexcom G6 Transmitter Device See Rx Instructions .Route Qty: 1 3RF Rx Instructions: As directed pregabalin 25 mg capsule 25 mg PO TID Qty: 90 0RF lorazepam 1 mg tablet 1 mg PO TID PRN (Reason: nauseas) Referrals: Zakia Kidd DO [Primary Care Provider] - Stand Alone Forms: Patient Portal/API
[2023-01-24 17:01] LABS: Add Manual Diff / Slide Review NO; Basophils Absolute Auto 0 /uL (0-100); Basophils Percent Auto 0.7 % (0-2); Eosinophils Absolute Auto 0 /uL (0-450); Hematocrit 23.4 % (41-53); Lymphocytes Absolute Auto 500 /uL (1100-4500); Lymphocytes Percent Auto 14.7 % (25-40); Mean Corpuscular HGB Conc 34.4 % (30-36); Mean Corpuscular Hemoglobin 32.5 PG (26-34); Mean Corpuscular Volume 94.6 fL (80-100); Monocytes Absolute Auto 400 /uL (0-900); Monocytes Percent Auto 12.7 % (3-14); Neutrophils Absolute Auto 2200 /uL (1500-7000); Neutrophils Percent Auto 70.9 % (50-75); Platelet Count 74 X10^3/uL (150-400); Red Blood Cell Count 2.47 X10^6/uL (4.5-5.9); Red Cell Distribution Width 18.9 % (11.6-14.8); White Blood Cell Count 3.1 X10^3/uL (4.5-11.0)
[2023-01-24 17:02] LABS: INR 1.2 (0.9-1.3); Prothrombin Time 13.4 SECONDS (10.1-12.7)
[2023-01-24 17:04] LABS: PTT Partial Thromboplastin Tim 34 SECONDS (26-36)
[2023-01-24 17:06] LABS: Alanine Aminotransferase 19 IU/L (<50); Albumin 3.9 g/dL (3.5-5.0); Albumin Globulin Ratio 1.1 (1.0-2.8); Alkaline Phosphatase 87 U/L (38-126); Aspartate Aminotransferase 37 IU/L (17-59); BUN Creatinine Ratio 23.3 (6-22); Bilirubin Total 0.3 mg/dL (0.2-1.3); Blood Urea Nitrogen 34 mg/dL (9-20); Calcium 7.9 mg/dL (8.4-10.2); Carbon Dioxide 18 mmol/L (22-32); Chloride 103 mmol/L (98-107); Estimated Glomerular Filt Rate 59 mL/min (>60); Globulin 3.7 g/dL (1.7-4.1); Glucose 90 mg/dL (70-100); HEMOLYSIS < 15 (0-50); Lipase < 10 U/L (23-300); Potassium 4.6 mmol/L (3.4-5.1); Sodium 133 mmol/L (137-145); Total Protein 7.6 g/dL (6.3-8.2)
[2023-01-24] MEDS: ONDANSETRON 4 MG/2 ML INJ IV (17:09)
[2023-01-24 17:15] VITALS: PULSE 72; O2SAT 98
[2023-01-24 17:16] VITALS: BP 135/71; PULSE 69; O2SAT 99
--- NOTE | 2023-01-24 17:22 | PC.NURSE ---
Pt reports my hemorrhoids are worse than normal with bright red rectal bleeding. Pt also reporting panic attacks and difficulty sleeping.
[2023-01-24 17:30] VITALS: BP 141/73; PULSE 69; PULSE 72; O2SAT 98
[2023-01-24] MEDS: OXYCODONE IR 5 MG TABLET PO (17:47)
== END 2023-01-24 17:55 | disposition home or self-care (01) ==
PROVIDERS: Emergency Provider Emergency Medicine; PCP Family Medicine
DX: D64.9 Anemia, unspecified (principal); D69.6 Thrombocytopenia, unspecified; C92.10 Chronic myeloid leukemia, BCR/ABL-positive, not having achieved remission
CPT/HCPCS: 36415; 80053; 82962; 83690; 85025; 85610; 85730; 86850; 86900; 86901; 96374; 99284; J2405

== ENCOUNTER → 2023-01-26 10:17 | Outpatient (CLI) | payer OTHER, MEDICAID, SELFPAY ==
[2022-12-27 00:30] VITALS: BMI 19.8
== END ==
PROVIDERS: PCP Family Medicine; Referring Provider Podiatrist; Visit Provider Surgery
DX: E11.621 Type 2 diabetes mellitus with foot ulcer (principal); L97.522 Non-pressure chronic ulcer of other part of left foot with fat layer exposed; E11.40 Type 2 diabetes mellitus with diabetic neuropathy, unspecified; L84 Corns and callosities
CPT/HCPCS: 11042

== ENCOUNTER 2023-01-29 09:53 | Emergency (ER) | payer OTHER, MEDICAID, SELFPAY ==
[2022-12-27 00:30] VITALS: BMI 19.8
[2023-01-29] VITALS (14 sets, daily range): BP systolic 152–190; BP diastolic 72–93; PULSE 61–80; RESP 10–18; TEMP 36.5–37.3; O2SAT 96–99
[2023-01-29 10:25] LABS: Add Manual Diff / Slide Review NO; Basophils Absolute Auto 0 /uL (0-100); Basophils Percent Auto 0.9 % (0-2); Eosinophils Absolute Auto 0 /uL (0-450); Eosinophils Percent Auto 1.1 % (2-4); Hematocrit 22.9 % (41-53); Hemoglobin 7.8 g/dL (13.5-17.5); Lymphocytes Absolute Auto 500 /uL (1100-4500); Lymphocytes Percent Auto 14.4 % (25-40); Mean Corpuscular HGB Conc 34.1 % (30-36); Mean Corpuscular Hemoglobin 33.3 PG (26-34); Mean Corpuscular Volume 97.6 fL (80-100); Monocytes Absolute Auto 300 /uL (0-900); Monocytes Percent Auto 9.1 % (3-14); Neutrophils Absolute Auto 2400 /uL (1500-7000); Neutrophils Percent Auto 74.5 % (50-75); Platelet Count 51 X10^3/uL (150-400); Red Blood Cell Count 2.34 X10^6/uL (4.5-5.9); Red Cell Distribution Width 19.1 % (11.6-14.8); White Blood Cell Count 3.2 X10^3/uL (4.5-11.0)
--- NOTE | 2023-01-29 11:16 | ED_ITS ---
HPI - Weakness General Chief complaint: Weakness Stated complaint: dr called for blood infusion Time Seen by Provider: 01/29/23 10:04 Source: patient Mode of arrival: Family Vehicle History of Present Illness HPI Narrative: Patient 47-year-old male former polysubstance abuse chronic myeloid leukemia, hepatitis, insulin-dependent diabetes on oral chemotherapy congestive heart failure presenting today with anemia. He had outpatient blood work yesterday showed a hemoglobin of 7.8 PCP office recommended he come to the ED for a blood transfusion. He feels generally weak and fatigued no significant shortness of breath. He is not had any Related Data Home Medications Medication Instructions Recorded Confirmed lorazepam 1 mg tablet 1 mg PO TID PRN nauseas 03/09/22 10/17/22 dasatinib 100 mg tablet (Sprycel) 100 mg PO DAILY 05/11/22 12/27/22 Previous Rx's Medication Instructions Recorded BD U/F Hilda Pen Needle [id number] #100 ea 06/13/18 insulin lispro 100 unit/mL 1 - 12 unit (0.01 - 0.12 mL) 05/11/22 subcutaneous pen (Humalog KwikPen SUBCUT TIDCC #1 ea (U-100) Insulin) lactulose 10 gram/15 mL oral 15 ml PO DAILY #473 mL 05/11/22 solution (Constulose) glucagon HCl 1 mg solution for 1 mg SUBCUT Q20M PRN hypoglycemia 10/23/22 injection (Glucagon (HCl) #2 ea Emergency Kit) Lantus Solostar U-100 Insulin 100 20 unit (0.2 mL) SUBCUT DAILY #15 11/03/22 unit/mL (3 mL) subcutaneous pen mL (insulin glargine) blood-glucose sensor (Dexcom G6 #3 ea 11/06/22 Sensor device) blood-glucose transmitter (Dexcom #1 ea 11/06/22 G6 Transmitter device) pregabalin 25 mg capsule 25 mg PO TID #90 caps 01/19/23 Allergies Allergy/AdvReac Type Severity Reaction Status Date / Time adhesive Allergy Intermediate rash, skin Verified 01/29/23 10:01 tear latex [LATEX] Allergy Unknown rash, skin Verified 01/29/23 10:01 tear Review of Systems Review of Systems ROS Unobtainable: All systems reviewed & are unremarkable except as noted in HPI and below Patient History Medical History Ataxia Cervical radiculopathy Cervicalgia Cancer of blood vessel Pancytopenia Chronic, continuous use of opioids Central cord syndrome at C3 level of cervical spinal cord Thrombocytopenia Alcoholism Insulin dependent diabetes mellitus CML (chronic myelocytic leukemia) Surgical History Status post appendectomy Family History Grandfather Diabetes mellitus Mother Cancer History of heart disease Father Hyperlipidemia History of heart disease Social History household members: none Smoking Status: Former smoker Tobacco: How many years used: 10 Smokeless tobacco user: chewing tobacco (current ) quit status: considering quitting alcohol intake: former (Quit 2018 ) substance use type: former substance user (Quit 2011), marijuana (Current marijuana ) and opiates (former ) Smoking Status: Former smoker tobacco type: cigarettes and smokeless tobacco alcohol intake frequency: 0-2 drinks per day Alcohol type: beer Substance Use Type: marijuana Exam Initial Vital Signs Initial Vital Signs: Vital Signs Temperature 98.3 F 01/29/23 09:56 Pulse Rate 80 01/29/23 09:56 Respiratory Rate 12 01/29/23 09:56 Blood Pressure 178/93 H 01/29/23 09:56 Pulse Oximetry 99 01/29/23 09:56 Oxygen Delivery Method Room Air 01/29/23 09:56 GENERAL: Chronically ill-appearing 47-year-old male, slightly pale HEENT: Head atraumatic,EOMI, pupils reactive, face symmetric, moist mucous membranes CARDIOVASCULAR: Regular rate and rhythm without murmurs, rubs or gallops. RESPIRATORY: Breath sounds equal bilaterally, no wheezes rales or rhonchi. ABDOMEN: Soft, nontender. Normoactive bowel sounds all 4 quadrants. No guarding or rebound EXTREMITIES: Normal range of motion, no clubbing. Minimal edema in lower extremities Neurovascularly intact NEUROLOGICAL: Alert and oriented x4. SKIN: Warm, dry, no laceration, no petechiae, no rashes or lesions. Course Orders Ordered: ED Orders 01/29/23 10:13 CMP [Comprehensive Metabolic Panel] Stat 01/29/23 10:16 CBC Auto Diff [Complete Blood Count AUTO DIFF] Stat PRBC [Packed Cells] Stat Type and Screen Stat Discontinued Medications Oxycodone HCl (Oxycodone Ir 5 Mg Tablet) 5 mg PO NOW ONE Stop: 01/29/23 12:57 Last Admin: 01/29/23 13:09 Dose: 5 mg Documented By: KAMILLE Vital Signs Vital signs: Vital Signs - 8 hr 01/29/23 11:07 01/29/23 11:09 01/29/23 11:09 Temperature Pulse Rate 80 73 Respiratory Rate 13 Blood Pressure 166/80 H Blood Pressure [Left Arm] Pulse Oximetry 98 97 Oxygen Delivery Method 01/29/23 11:30 01/29/23 11:30 01/29/23 12:00 Temperature Pulse Rate 69 Respiratory Rate 11 L Blood Pressure 155/77 H 152/74 H Blood Pressure [Left Arm] Pulse Oximetry 98 Oxygen Delivery Method Room Air 01/29/23 12:00 01/29/23 12:07 01/29/23 12:09 Temperature 99.0 F 99.2 F Pulse Rate 61 70 63 Respiratory Rate 15 18 15 Blood Pressure 152/74 H Blood Pressure [Left Arm] 152/74 H Pulse Oximetry 99 96 Oxygen Delivery Method Room Air 01/29/23 12:25 01/29/23 12:30 01/29/23 12:30 Temperature 99.1 F Pulse Rate 64 61 Respiratory Rate 16 10 L Blood Pressure 154/78 H 154/78 H Blood Pressure [Left Arm] Pulse Oximetry 97 Oxygen Delivery Method 01/29/23 13:00 01/29/23 13:47 01/29/23 14:15 Temperature 97.7 F Pulse Rate 67 61 73 Respiratory Rate 16 14 Blood Pressure 190/87 H Blood Pressure [Left Arm] Pulse Oximetry 98 Oxygen Delivery Method Room Air MDM - Weakness Lab Data 01/29/23 10:16 01/29/23 10:13 Labs: Lab Results 01/29/23 01/29/23 Range/Units 10:13 10:16 WBC 3.2 L (4.5-11.0) X10^3/uL RBC 2.34 L (4.5-5.9) X10^6/uL Hgb 7.8 L (13.5-17.5) g/dL Hct 22.9 L (41-53) % MCV 97.6 D (80-100) fL MCH 33.3 (26-34) PG MCHC 34.1 (30-36) % RDW 19.1 H (11.6-14.8) % Plt Count 51 L (150-400) X10^3/uL Neut % (Auto) 74.5 (50-75) % Lymph % (Auto) 14.4 L (25-40) % Wharton % (Auto) 9.1 (3-14) % Eos % (Auto) 1.1 L (2-4) % Baso % (Auto) 0.9 (0-2) % Neut # (Auto) 2400 (8757-6973) /uL Lymph # (Auto) 500 L (0051-6972) /uL Wharton # (Auto) 300 (0-900) /uL Eos # (Auto) 0 (0-450) /uL Baso # (Auto) 0 (0-100) /uL Sodium 136 L (137-145) mmol/L Potassium 5.3 H (3.4-5.1) mmol/L Chloride 111 H (98-107) mmol/L Carbon Dioxide 17 L (22-32) mmol/L BUN 34 H (9-20) mg/dL Creatinine 1.21 (0.66-1.25) mg/dL Estimated GFR > 60 (>60) mL/min BUN/Creatinine Ratio 28.1 H (6-22) Glucose 205 H D (70-100) mg/dL Calcium 8.4 (8.4-10.2) mg/dL Total Bilirubin 0.4 (0.2-1.3) mg/dL AST 56 (17-59) IU/L ALT 21 (<50) IU/L Alkaline Phosphatase 104 (38-126) U/L Total Protein 7.4 (6.3-8.2) g/dL Albumin 3.8 (3.5-5.0) g/dL Globulin 3.6 (1.7-4.1) g/dL Albumin/Globulin Ratio 1.1 (1.0-2.8) Blood Type A Positive Antibody Screen Negative Crossmatch See Detail MDM Narrative Medical decision making narrative: Patient 47-year-old male with chronic multiple medical problems presenting today with anemia request a PCP. PCP unfortunately not in today I called and spoke with partner Dr. Walters. Hemoglobin today is 7.8 hematocrit 22.9 it has slowly been decreasing however on January 24 was 8.0 and 23.4 baseline seems to be right at about 8. Not significantly low today platelets are 51 which seems stable. Based on symptoms of fatigue which could be chronic PCP recommended 1 unit PRBC. Patient is not hypotensive or tachycardic but he has been slowly decreasing. Electrolytes have been reviewed they are stable for him potassium 5.3 calcium 8.4. At this time no need for any further workup or admission Discharge Plan Departure Patient Disposition: Home Clinical Impression: Anemia Instructions: Anemia Activity Restrictions/Additional Instructions: *You have been diagnosed with anemia *What to do: Follow-up with your primary care and oncology *Continue to take medications as directed *Follow up with your primary care provider in 2-3 days or call [phone] *Return to ER if you should have any new, worsening or concerning symptoms Prescriptions: No Action (DME) BD U/F Hilda Pen Needle [id number] .Route .MEDSUPPLY Qty: 100 3RF Dose Instruction: As directed Rx Instructions: BD U/F Hilda Pen Needle [id number] use as directed with insulin insulin lispro [Humalog KwikPen Insulin] 100 unit/mL insulin pen 1 - 12 unit subcut TIDCC Qty: 1 3RF Patient Comments: patient states none today lactulose [Constulose] 10 gram/15 mL solution 15 ml PO DAILY Qty: 473 6RF Sprycel 100 mg tablet 100 mg PO DAILY Patient Comments: pt started for his CML glucagon HCl [Glucagon (HCl) Emergency Kit] 1 mg recon soln 1 mg SUBCUT Q20M PRN (Reason: hypoglycemia) Qty: 2 0RF Rx Instructions: until target blood sugar attained insulin glargine [Lantus Solostar U-100 Insulin] 100 unit/mL (3 mL) insulin pen 20 unit SUBCUT DAILY Qty: 15 3RF (DME) Dexcom G6 Sensor Device See Rx Instructions .Route Qty: 3 5RF Rx Instructions: As directed (DME) Dexcom G6 Transmitter Device See Rx Instructions .Route Qty: 1 3RF Rx Instructions: As directed pregabalin 25 mg capsule 25 mg PO TID Qty: 90 0RF lorazepam 1 mg tablet 1 mg PO TID PRN (Reason: nauseas) Referrals: Zakia Kidd DO [Primary Care Provider] - Stand Alone Forms: Patient Portal/API
[2023-01-29 11:31] LABS: Alanine Aminotransferase 21 IU/L (<50); Albumin 3.8 g/dL (3.5-5.0); Albumin Globulin Ratio 1.1 (1.0-2.8); Alkaline Phosphatase 104 U/L (38-126); Aspartate Aminotransferase 56 IU/L (17-59); BUN Creatinine Ratio 28.1 (6-22); Bilirubin Total 0.4 mg/dL (0.2-1.3); Blood Urea Nitrogen 34 mg/dL (9-20); Calcium 8.4 mg/dL (8.4-10.2); Carbon Dioxide 17 mmol/L (22-32); Chloride 111 mmol/L (98-107); Estimated Glomerular Filt Rate > 60 mL/min (>60); Globulin 3.6 g/dL (1.7-4.1); Glucose 205 mg/dL (70-100); HEMOLYSIS < 15 (0-50); Potassium 5.3 mmol/L (3.4-5.1); Sodium 136 mmol/L (137-145); Total Protein 7.4 g/dL (6.3-8.2)
[2023-01-29] MEDS: OXYCODONE IR 5 MG TABLET PO (13:09)
== END 2023-01-29 14:17 | disposition home or self-care (01) ==
PROVIDERS: Emergency Provider Emergency Medicine; PCP Family Medicine
DX: D64.9 Anemia, unspecified (principal); Z79.899 Other long term (current) drug therapy
CPT/HCPCS: 36415; 36430; 80053; 85025; 86850; 86900; 86901; 99284; P9016

== ENCOUNTER → 2023-02-02 10:41 | Outpatient (CLI) | payer OTHER, MEDICAID, SELFPAY ==
[2022-12-27 00:30] VITALS: BMI 19.8
== END ==
PROVIDERS: PCP Family Medicine; Referring Provider Podiatrist; Visit Provider Surgery
DX: E11.621 Type 2 diabetes mellitus with foot ulcer (principal); L97.522 Non-pressure chronic ulcer of other part of left foot with fat layer exposed; L84 Corns and callosities; E11.40 Type 2 diabetes mellitus with diabetic neuropathy, unspecified
CPT/HCPCS: 11042

== ENCOUNTER 2023-03-18 12:37 | Emergency (ER) | payer OTHER, MEDICAID, SELFPAY ==
[2022-12-27 00:30] VITALS: BMI 19.8
[2023-03-18] VITALS (21 sets, daily range): BP systolic 152–201; BP diastolic 72–110; PULSE 60–88; RESP 9–24; TEMP 36.6–36.9; O2SAT 96–100; BMI 19.8
--- NOTE | 2023-03-18 12:49 | DI.RAD.S_ITS ---
P the ROCEDURE: XR FOOT RT MIN 3V INDICATIONS: foot pain TECHNIQUE: 3 views of the foot were acquired. COMPARISON: [facility], CR, XR FOOT RT MIN 3V, 10/19/2018, 13:21. FINDINGS: Bones: There is a 5th MTP dislocation, of unknown chronicity. It has occurred since the previous study, but abnormal appearance of the distal aspect of the 5th metatarsal suggests that this may potentially be chronic. No acute fractures. Soft tissues: No tibiotalar joint effusion. Achilles tendon appears normal. IMPRESSION: Interval development of 5th MTP dislocation, of uncertain chronicity. No other fractures or dislocations. Dictated by: Lizandro Diane M.D. on 03/18/2023 at 14:03 Approved by: Lizandro Diane M.D. on 03/18/2023 at 14:04
--- NOTE | 2023-03-18 13:21 | ED.SOB ---
HPI - SOB/Dyspnea General Chief Complaint: Recheck/Abnormal Lab/Rx Stated Complaint: DR reffered for blood transfusion/sprain R foot Time Seen by Provider: 03/18/23 12:42 Source: patient, RN notes reviewed and old records reviewed Limitations: no limitations History of Present Illness HPI Narrative: 47-year-old male history of former polysubstance abuse, chronic myeloid leukemia, hepatitis, insulin-dependent diabetes on oral chemotherapy with history of congestive heart failure and prior blood transfusions and platelet transfusions. Patient recommended to come to the emergency department for blood transfusion. Patient notes had blood work today with Dr. Noel his oncologist recommended to present for transfusion of 1 unit of packed blood cells. He does note that earlier in the week he had gotten his right ankle caught up in his coffee table. He had to pull his foot loose causing some messer or abrasions on the top of the toes. He has had ankle and foot pain since then and some swelling. He notes there has been some chronic swelling in that right lower leg there is a little bit mild erythema. He is nontender to touch. He states he is had some increased shortness of breath he is not sure if it is low hemoglobin or he might be having some fluid overload/CHF he states no chest pain or pressure no fevers or chills. He is had a mild cough which has been nonproductive. He has daily nausea which is typical. Patient states no black or bloody stools. No urinary symptoms. He states the swelling in his right leg has been present for some time he did have an ultrasound several years ago remotely in the past which was negative for DVT. Patient states no new medications changes since his last visit. He believes he had a transfusion in December knee thinks he may have had 1 in [address] [facility]. Allergies adhesive and latex. Former smoker, denies current alcohol use, uses marijuana denies other recreational drugs. Dr. Zakia Kidd as his primary care physician. Dr. Noel is his oncologist. Related Data Home Medications Medication Instructions Recorded Confirmed lorazepam 1 mg tablet 1 mg PO TID PRN nauseas 03/09/22 10/17/22 dasatinib 100 mg tablet (Sprycel) 100 mg PO DAILY 05/11/22 12/27/22 Previous Rx's Medication Instructions Recorded BD U/F Hilda Pen Needle [id number] #100 ea 06/13/18 insulin lispro 100 unit/mL 1 - 12 unit (0.01 - 0.12 mL) 05/11/22 subcutaneous pen (Humalog KwikPen SUBCUT TIDCC #1 ea (U-100) Insulin) lactulose 10 gram/15 mL oral 15 ml PO DAILY #473 mL 05/11/22 solution (Constulose) glucagon HCl 1 mg solution for 1 mg SUBCUT Q20M PRN hypoglycemia 10/23/22 injection (Glucagon (HCl) #2 ea Emergency Kit) Lantus Solostar U-100 Insulin 100 20 unit (0.2 mL) SUBCUT DAILY #15 11/03/22 unit/mL (3 mL) subcutaneous pen mL (insulin glargine) blood-glucose sensor (Dexcom G6 #3 ea 11/06/22 Sensor device) blood-glucose transmitter (Dexcom #1 ea 11/06/22 G6 Transmitter device) pregabalin 25 mg capsule 25 mg PO TID #90 caps 01/19/23 Allergies Allergy/AdvReac Type Severity Reaction Status Date / Time adhesive Allergy Intermediate rash, skin Verified 03/18/23 13:21 tear latex [LATEX] Allergy Unknown rash, skin Verified 03/18/23 13:21 tear Review of Systems Review of Systems ROS Unobtainable: All systems reviewed & are unremarkable except as noted in HPI and below Patient History Medical History Ataxia Cervical radiculopathy Cervicalgia Cancer of blood vessel Pancytopenia Chronic, continuous use of opioids Central cord syndrome at C3 level of cervical spinal cord Thrombocytopenia Alcoholism Insulin dependent diabetes mellitus CML (chronic myelocytic leukemia) Surgical History Status post appendectomy Family History Grandfather Diabetes mellitus Mother Cancer History of heart disease Father Hyperlipidemia History of heart disease Social History household members: none Smoking Status: Former smoker Tobacco: How many years used: 10 Smokeless tobacco user: chewing tobacco (current ) quit status: considering quitting alcohol intake: former (Quit 2019 ) substance use type: former substance user, marijuana and opiates Smoking Status: Former smoker tobacco type: cigarettes and smokeless tobacco alcohol intake frequency: 0-2 drinks per day Alcohol type: beer Substance Use Type: marijuana Exam Narrative Exam Narrative: GENERAL: Alert and oriented x three, thin, pale cachectic appearing male HEENT: Head normocephalic, atraumatic, EOMI, pupils reactive, face symmetric, moist mucous membranes NECK: Supple, full range of motion CARDIOVASCULAR: Regular rate and rhythm without murmurs, rubs or gallops. RESPIRATORY: Breath sounds equal bilaterally, no wheezes rales or rhonchi. ABDOMEN: Soft, nontender. Nondistended. Normoactive bowel sounds all 4 quadrants. No guarding or rebound, rigidity, no mass : No CVA tenderness EXTREMITIES: Normal range of motion, no clubbing. Patient has a edema of his right lower extremity comparison to the left. Skin is tight, 2+ edema. Patient has mild tenderness there is a small amount of bruising just below the ankle. Patient does have deformity of the 5th toe which he states is after he avulsed the toe and had repair remotely. He states this is typical there are abrasions that are scabbed over the dorsum of each toe on the right. Neurovascularly intact. NEUROLOGICAL: Cranial nerves II through XII grossly intact. Moving all extremities SKIN: Warm, dry, no petechiae, no rashes or lesions otherwise noted. Initial Vital Signs Initial Vital Signs: Vital Signs Temperature 97.8 F 03/18/23 12:40 Pulse Rate 88 03/18/23 12:40 Respiratory Rate 15 03/18/23 12:40 Blood Pressure 176/90 H 03/18/23 12:40 Pulse Oximetry 98 03/18/23 12:40 Oxygen Delivery Method Room Air 03/18/23 12:40 Course Orders Ordered: ED Orders 03/18/23 12:48 EKG-12 Lead Stat 03/18/23 12:49 XR foot RT min 3V Stat 03/18/23 12:50 BNP [NT-proBNP (BNP-Adult 18+)] Stat Complete Blood Count AUTO DIFF Stat Comprehensive Metabolic Panel Stat PRBC [Packed Cells] Stat PTT Partial Thromboplastin Efrain Stat Prothrombin Time INR Stat Troponin & CK Cardiac Panel Stat Type and Screen Stat 03/18/23 13:20 Chest [XR chest 1V] Stat 03/18/23 13:39 US periph venous low extrem rt Stat 03/18/23 16:35 BMP [Basic Metabolic Panel] Stat Discontinued Medications Furosemide (Furosemide 40 Mg/4 Ml Vial) 40 mg IV NOW ONE Stop: 03/18/23 15:09 Last Admin: 03/18/23 15:32 Dose: Not Given Documented By: MONICA Hydromorphone HCl (Hydromorphone 0.5 Mg Inj) 0.5 mg IV NOW ONE Stop: 03/18/23 15:47 Last Admin: 03/18/23 15:57 Dose: 0.5 mg Documented By: MONICA Oxycodone HCl (Oxycodone Ir 5 Mg Tablet) 5 mg PO NOW ONE Stop: 03/18/23 13:41 Last Admin: 03/18/23 14:00 Dose: 5 mg Documented By: MONICA Vital Signs Vital signs: Vital Signs - 8 hr 03/18/23 12:40 03/18/23 12:47 03/18/23 13:05 Temperature 97.8 F Pulse Rate 88 81 75 Respiratory Rate 15 Blood Pressure 176/90 H Pulse Oximetry 98 99 97 Oxygen Delivery Method Room Air 03/18/23 13:18 03/18/23 13:18 03/18/23 13:30 Temperature Pulse Rate 74 74 Respiratory Rate 9 L 14 Blood Pressure 165/88 H Pulse Oximetry 99 98 Oxygen Delivery Method 03/18/23 13:30 03/18/23 14:00 03/18/23 14:01 Temperature Pulse Rate 68 70 Respiratory Rate 11 L 19 Blood Pressure 160/87 H Pulse Oximetry 98 98 Oxygen Delivery Method 03/18/23 14:01 03/18/23 14:25 03/18/23 14:25 Temperature Pulse Rate 66 Respiratory Rate 13 Blood Pressure 165/80 H 182/81 H Pulse Oximetry 98 Oxygen Delivery Method 03/18/23 14:30 03/18/23 14:30 03/18/23 14:30 Temperature 98.3 F Pulse Rate 64 64 Respiratory Rate 16 16 Blood Pressure 152/72 H 152/72 H Pulse Oximetry 99 Oxygen Delivery Method 03/18/23 14:45 03/18/23 14:46 03/18/23 14:46 Temperature 98.3 F Pulse Rate 65 66 Respiratory Rate 16 20 Blood Pressure 174/82 H 174/82 H Pulse Oximetry 99 Oxygen Delivery Method 03/18/23 15:00 03/18/23 15:00 03/18/23 15:30 Temperature Pulse Rate 60 Respiratory Rate 15 Blood Pressure 159/84 H 187/94 H Pulse Oximetry 98 Oxygen Delivery Method 03/18/23 15:30 03/18/23 15:39 03/18/23 16:00 Temperature 98.5 F 98.4 F Pulse Rate 68 68 67 Respiratory Rate 16 16 18 Blood Pressure 187/94 H 182/81 H Pulse Oximetry 98 Oxygen Delivery Method 03/18/23 16:00 03/18/23 16:00 03/18/23 16:02 Temperature Pulse Rate 67 65 Respiratory Rate Blood Pressure 197/87 H Pulse Oximetry 99 96 Oxygen Delivery Method 03/18/23 16:02 03/18/23 16:03 03/18/23 16:03 Temperature Pulse Rate 69 Respiratory Rate Blood Pressure 183/85 H 182/81 H Pulse Oximetry 98 Oxygen Delivery Method 03/18/23 16:30 03/18/23 16:36 03/18/23 16:36 Temperature 98.5 F Pulse Rate 76 62 65 Respiratory Rate 21 14 Blood Pressure 201/87 H Pulse Oximetry 100 Oxygen Delivery Method 03/18/23 16:36 03/18/23 16:38 03/18/23 16:38 Temperature Pulse Rate 71 Respiratory Rate 22 Blood Pressure 176/110 H 201/87 H Pulse Oximetry 99 Oxygen Delivery Method 03/18/23 17:00 03/18/23 17:00 Temperature Pulse Rate 64 Respiratory Rate 24 Blood Pressure 178/82 H Pulse Oximetry 99 Oxygen Delivery Method MDM - SOB/Dyspnea Lab Data 03/18/23 12:50 03/18/23 16:35 Labs: Lab Results 03/18/23 03/18/23 Range/Units 12:50 16:35 WBC 2.5 L (4.5-11.0) X10^3/uL RBC 2.47 L (4.5-5.9) X10^6/uL Hgb 8.0 L (13.5-17.5) g/dL Hct 24.1 L (41-53) % MCV 97.8 (80-100) fL MCH 32.6 (26-34) PG MCHC 33.3 (30-36) % RDW 15.4 H (11.6-14.8) % Plt Count 65 L (150-400) X10^3/uL Neut % (Auto) 62.4 (50-75) % Lymph % (Auto) 26.0 (25-40) % [place] % (Auto) 9.9 (3-14) % Eos % (Auto) 1.4 L (2-4) % Baso % (Auto) 0.3 (0-2) % Neut # (Auto) 1600 (5065-5951) /uL Lymph # (Auto) 700 L (6743-9938) /uL [place] # (Auto) 300 (0-900) /uL Eos # (Auto) 0 (0-450) /uL Baso # (Auto) 0 (0-100) /uL PT 12.4 (9.4-12.5) SECONDS INR 1.1 (0.9-1.3) APTT 35 (25.1-36.5) SECONDS Sodium 135 L 134 L (137-145) mmol/L Potassium 5.6 H 5.4 H (3.4-5.1) mmol/L Chloride 105 106 (98-107) mmol/L Carbon Dioxide 21 L 21 L (22-32) mmol/L BUN 21 H 20 (9-20) mg/dL Creatinine 1.35 H 1.22 (0.66-1.25) mg/dL Estimated GFR > 60 > 60 (>60) mL/min BUN/Creatinine Ratio 15.6 16.4 (6-22) Glucose 123 H 131 H (70-100) mg/dL Calcium 8.3 L 7.8 L (8.4-10.2) mg/dL Total Bilirubin 0.6 (0.2-1.3) mg/dL AST 41 (17-59) IU/L ALT 24 (<50) IU/L Alkaline Phosphatase 99 (38-126) U/L Total Creatine Kinase 258 H (55-170) U/L Troponin I 0.014 (0.01-0.034) ng/mL NT-Pro-B Natriuret Pep 1380 H (<125) pg/mL Total Protein 7.3 (6.3-8.2) g/dL Albumin 3.9 (3.5-5.0) g/dL Globulin 3.4 (1.7-4.1) g/dL Albumin/Globulin Ratio 1.1 (1.0-2.8) Blood Type A Positive Antibody Screen Negative Crossmatch See Detail Imaging Data Extremity x-ray #1: Radiologist's Impression: [address] [address] XRay Report Signed Patient: Lalo Han MR#: [id number] : 1975 Acct:[id number] Age/Sex: 47 / M Date of Service: 03/18/23 Loc: ED Accession Number: [id number] Procedure: XR foot RT min 3V Ordering Provider: Zainab Patrick D.O. P the ROCEDURE: XR FOOT RT MIN 3V INDICATIONS: foot pain TECHNIQUE: 3 views of the foot were acquired. COMPARISON: [facility], XR FOOT RT MIN 3V, 10/19/2018, 13:21. FINDINGS: Bones: There is a 5th MTP dislocation, of unknown chronicity. It has occurred since the previous study, but abnormal appearance of the distal aspect of the 5th metatarsal suggests that this may potentially be chronic. No acute fractures. Soft tissues: No tibiotalar joint effusion. Achilles tendon appears normal. IMPRESSION: Interval development of 5th MTP dislocation, of uncertain chronicity. No other fractures or dislocations. Dictated by: Lizandro Diane M.D. on 03/18/2023 at 14:03 Approved by: Lizandro Diane M.D. on 03/18/2023 at 14:04 Chest x-ray: Radiologist's Impression: [address] [address] XRay Report Signed Patient: Lalo Han MR#: [id number] : 1975 Acct:[id number] Age/Sex: 47 / M Date of Service: 03/18/23 Loc: ED Accession Number: [id number] Procedure: XR chest 1V Ordering Provider: Zainab Patrick D.O. PROCEDURE: XR CHEST 1V INDICATIONS: cough, sob, sent for labs, ankle sprain TECHNIQUE: One view of the chest was acquired. COMPARISON: [facility], CHEST 2 VIEW, 07/03/2011, 20:14. FINDINGS: Surgical changes and devices: None. Lungs and pleura: Lungs are clear. No pleural effusions or pneumothorax. Mediastinum: Mediastinal contours appear normal. Heart size is mildly enlarged, as before. Bones and chest wall: No suspicious bony lesions. Overlying soft tissues appear unremarkable. IMPRESSION: No acute cardiopulmonary abnormality is seen. Dictated by: Maria M Schwarz M.D. on 03/18/2023 at 14:15 Approved by: Maria M Schwarz M.D. on 03/18/2023 at 14:15 US - DVT: Radiologist's Impression: [address] [address] Ultrasound Report Signed Patient: Lalo Han MR#: [id number] : 1975 Acct:[id number] Age/Sex: 47 / M Date of Service: 03/18/23 Loc: ED Accession Number: [id number] Procedure: US perip venous low extrem rt Ordering Provider: Zainab Patrick D.O. PROCEDURE: US PERIP VENOUS LOW EXTREM RT INDICATIONS: CHRONIC EDEMA TECHNIQUE: Real-time imaging, as well as color and pulse Doppler interrogation, were performed of the lower extremity deep veins from the inguinal ligament to the popliteal fossa, with documentation of the visualized calf veins. COMPARISON: [facility], PERIP VENOUS LOW EXTREM RT, 12/26/2022, 16:25. FINDINGS: The common femoral, femoral, popliteal, and the visualized calf veins are normally compressible, and free of intraluminal thrombus. Color and pulse Doppler demonstrate normal phasic intraluminal flow. There is normal augmentation response to distal compression maneuver. IMPRESSION: No findings of lower extremity deep venous thrombosis. Dictated by: Brian Wei M.D. on 03/18/2023 at 14:26 Approved by: Brian Wei M.D. on 03/18/2023 at 14:26 ECG Data Attestation: I personally reviewed and interpreted this ECG as follows: Prior ECG tracings: available for review Interpretation: Patient has similar EKG from 12/26/2022 11/23/2022 with no other acute changes. Sinus rhythm rate of 74 MS 160 QRS of 110, QTC 6. No acute ST elevation depression noted. MDM Narrative Medical decision making narrative: 47-year-old male with history of cirrhosis, chronic myeloid leukemia, prior polysubstance abuse presents with outpatient labs from earlier today with a hemoglobin 8.2 and platelets of 55 recommended by his oncologist to have 1 unit of blood transfused. Patient does note some increasing shortness of breath over the past several days. He suspects it maybe his anemia but he has had CHF issues in the past. Had swelling in his right leg but not the left he states that has been present for some time but did have some trauma to the right ankle several days ago where he caught his foot and had abrasions over the toes and felt a pop. Patient is slightly hypertensive no tachycardia, no hypoxia normal temperature. Patient has had chronic swelling in his right lower extremity but will obtain a DVT ultrasound as he has blood dyscrasia with known CML. Patient was noted to have a large right inguinal lymph node in December 2022 on his prior ultrasound and foot x-ray was also obtained secondary to trauma. Chest x-ray was included evaluate for any pulmonary edema. Patient had outpatient CBC with a white count of 2.1 8.2 hemoglobin crit of 25 and platelets of 55 earlier today he presented with his results. Repeat CBC consistent with this at 2.5 with a hemoglobin of 8 crit of 24 and platelets of 65. We will proceed with transfusion as recommended by oncology. Patient's sodium is 135 potassium 5 6 chloride 105 with a CO2 of 21 and a BUN of 21 with a creatinine of 1.35 and a glucose of 123. Troponin negative. BNP is 1380 patient was 1260 on past visit. We will give a dose of Lasix after patient's blood transfusion. Chest x-ray showed acute change or obvious pulmonary edema. Right foot x-ray shows 5th MTP dislocation this is chronic and after an avulsion injury and has healed in this position. This is not new. No other acute bony changes. DVT ultrasound of the right leg is negative. Patient received 1 unit packed red blood cells. Patient tolerated well. Plan to recheck electrolytes after transfusion. Potassium is improved. No other significant worsening. Patient states he has Lasix at home and deferred Lasix here. Discharge Plan Departure Patient Disposition: Home Clinical Impression: Symptomatic anemia, CML (chronic myelocytic leukemia), Foot pain, right Activity Restrictions/Additional Instructions: Follow-up with your primary care and oncology team. Call to set up an appointment. You are at risk to have some fluid overload with your blood transfusion. Please take 1 tablet of Lasix or furosemide daily x5 days. Continue your other home medications as prescribed. Please return for new or worsening changes, new or worsening chest pain, shortness of breath, lightheadedness or passing out, increasing swelling of your extremities, fevers or chills or other new or concerning changes. Prescriptions: No Action (DME) BD U/F Hilda Pen Needle [id number] 0 .Route .MEDSUPPLY Qty: 100 3RF Hold Instructions: ESTABLISHED AT NEW CL[facility] Dose Instruction: As directed Rx Instructions: BD U/F Hilda Pen Needle [id number] use as directed with insulin insulin lispro [Humalog KwikPen Insulin] 100 unit/mL insulin pen 1 - 12 unit subcut TIDCC Qty: 1 3RF Hold Instructions: ESTABLISHED AT [facility] Patient Comments: patient states none today lactulose [Constulose] 10 gram/15 mL solution 15 ml PO DAILY Qty: 473 6RF Hold Instructions: ESTABLISHED AT [facility] Sprycel 100 mg tablet 100 mg PO DAILY Hold Instructions: ESTABLISHED AT [facility] Patient Comments: pt started for his CML glucagon HCl [Glucagon (HCl) Emergency Kit] 1 mg recon soln 1 mg SUBCUT Q20M PRN (Reason: hypoglycemia) Qty: 2 0RF Hold Instructions: ESTABLISHED AT [facility] Rx Instructions: until target blood sugar attained insulin glargine [Lantus Solostar U-100 Insulin] 100 unit/mL (3 mL) insulin pen 20 unit SUBCUT DAILY Qty: 15 3RF Hold Instructions: ESTABLISHED AT NEW CL[facility] ([facility]) Dexcom G6 Sensor Device See Rx Instructions .Route Qty: 3 5RF Hold Instructions: ESTABLISHED AT [facility] Rx Instructions: As directed ([facility]) Dexcom G6 Transmitter Device See Rx Instructions .Route Qty: 1 3RF Hold Instructions: ESTABLISHED AT [facility] Rx Instructions: As directed pregabalin 25 mg capsule 25 mg PO TID Qty: 90 0RF Hold Instructions: ESTABLISHED AT [facility] lorazepam 1 mg tablet 1 mg PO TID PRN (Reason: nauseas) Hold Instructions: ESTABLISHED AT [facility] Referrals: Zakia Kidd DO [Primary Care Provider] - Stand Alone Forms: Patient Portal/API
--- NOTE | 2023-03-18 13:39 | DI.US.S_ITS ---
PROCEDURE: US PERIP VENOUS LOW EXTREM RT INDICATIONS: CHRONIC EDEMA TECHNIQUE: Real-time imaging, as well as color and pulse Doppler interrogation, were performed of the lower extremity deep veins from the inguinal ligament to the popliteal fossa, with documentation of the visualized calf veins. COMPARISON: [facility], , [facility] VENOUS LOW EXTREM RT, 12/26/2022, 16:25. FINDINGS: The common femoral, femoral, popliteal, and the visualized calf veins are normally compressible, and free of intraluminal thrombus. Color and pulse Doppler demonstrate normal phasic intraluminal flow. There is normal augmentation response to distal compression maneuver. IMPRESSION: No findings of lower extremity deep venous thrombosis. Dictated by: Brian Wei M.D. on 03/18/2023 at 14:26 Approved by: Brian Wei M.D. on 03/18/2023 at 14:26
[2023-03-18 13:40] LABS: Add Manual Diff / Slide Review NO; Basophils Absolute Auto 0 /uL (0-100); Basophils Percent Auto 0.3 % (0-2); Eosinophils Absolute Auto 0 /uL (0-450); Eosinophils Percent Auto 1.4 % (2-4); Hematocrit 24.1 % (41-53); INR 1.1 (0.9-1.3); Lymphocytes Absolute Auto 700 /uL (1100-4500); Mean Corpuscular HGB Conc 33.3 % (30-36); Mean Corpuscular Hemoglobin 32.6 PG (26-34); Mean Corpuscular Volume 97.8 fL (80-100); Monocytes Absolute Auto 300 /uL (0-900); Monocytes Percent Auto 9.9 % (3-14); Neutrophils Absolute Auto 1600 /uL (1500-7000); Neutrophils Percent Auto 62.4 % (50-75); Platelet Count 65 X10^3/uL (150-400); Prothrombin Time 12.4 SECONDS (9.4-12.5); Red Blood Cell Count 2.47 X10^6/uL (4.5-5.9); Red Cell Distribution Width 15.4 % (11.6-14.8); White Blood Cell Count 2.5 X10^3/uL (4.5-11.0)
[2023-03-18 13:42] LABS: PTT Partial Thromboplastin Tim 35 SECONDS (25.1-36.5)
[2023-03-18 13:44] LABS: Alanine Aminotransferase 24 IU/L (<50); Albumin 3.9 g/dL (3.5-5.0); Albumin Globulin Ratio 1.1 (1.0-2.8); Alkaline Phosphatase 99 U/L (38-126); Aspartate Aminotransferase 41 IU/L (17-59); BUN Creatinine Ratio 15.6 (6-22); Bilirubin Total 0.6 mg/dL (0.2-1.3); Blood Urea Nitrogen 21 mg/dL (9-20); Calcium 8.3 mg/dL (8.4-10.2); Carbon Dioxide 21 mmol/L (22-32); Chloride 105 mmol/L (98-107); Estimated Glomerular Filt Rate > 60 mL/min (>60); Globulin 3.4 g/dL (1.7-4.1); Glucose 123 mg/dL (70-100); HEMOLYSIS < 15 (0-50); Sodium 135 mmol/L (137-145); Total Protein 7.3 g/dL (6.3-8.2)
[2023-03-18 13:45] LABS: Creatine Kinase 258 U/L (55-170); Potassium 5.6 mmol/L (3.4-5.1)
[2023-03-18 13:55] LABS: NT-proBNP (BNP-Adult 18+) 1380 pg/mL (<125); Troponin I 0.014 ng/mL (0.01-0.034)
[2023-03-18] MEDS: OXYCODONE IR 5 MG TABLET PO (14:00)
[2023-03-18] MEDS: HYDROMORPHONE 0.5 MG INJ IV (15:57)
[2023-03-18 17:05] LABS: BUN Creatinine Ratio 16.4 (6-22); Blood Urea Nitrogen 20 mg/dL (9-20); Calcium 7.8 mg/dL (8.4-10.2); Carbon Dioxide 21 mmol/L (22-32); Chloride 106 mmol/L (98-107); Estimated Glomerular Filt Rate > 60 mL/min (>60); Glucose 131 mg/dL (70-100); HEMOLYSIS < 15 (0-50); Sodium 134 mmol/L (137-145)
[2023-03-18 17:07] LABS: Potassium 5.4 mmol/L (3.4-5.1)
== END 2023-03-18 17:34 | disposition home or self-care (01) ==
PROVIDERS: Emergency Provider Emergency Medicine; PCP Family Medicine
DX: D64.9 Anemia, unspecified (principal); C92.10 Chronic myeloid leukemia, BCR/ABL-positive, not having achieved remission; M79.671 Pain in right foot; E11.9 Type 2 diabetes mellitus without complications; Z79.4 Long term (current) use of insulin
CPT/HCPCS: 36415; 36430; 71045; 73630; 80048; 80053; 82550; 83880; 84484; 85025; 85610; 85730; 86850; 86900; 86901; 93005; 93010; 93971; 96374; 96375; 99285; P9016; J1170

== ENCOUNTER → 2023-04-09 14:24 | Outpatient (CLI) | payer OTHER, MEDICAID, SELFPAY ==
[2022-12-27 00:30] VITALS: BMI 19.8
== END ==
LOC: WC 14:24
PROVIDERS: PCP Family Medicine; Referring Provider Podiatrist; Visit Provider Physician Assistant
DX: C92.90 Myeloid leukemia, unspecified, not having achieved remission (principal); L97.419 Non-pressure chronic ulcer of right heel and midfoot with unspecified severity; E11.621 Type 2 diabetes mellitus with foot ulcer; L97.412 Non-pressure chronic ulcer of right heel and midfoot with fat layer exposed; L84 Corns and callosities; L53.9 Erythematous condition, unspecified; L08.89 Other specified local infections of the skin and subcutaneous tissue
CPT/HCPCS: 11042; 11045; 87070; 87075; 87077; 87147; 87186; 87205; 99213; 99214

== ENCOUNTER → 2023-04-14 09:32 | Outpatient (CLI) | payer OTHER, MEDICAID, SELFPAY ==
[2022-12-27 00:30] VITALS: BMI 19.8
[2023-04-14 10:54] LABS: Add Manual Diff / Slide Review NO; Basophils Absolute Auto 0 /uL (0-100); Basophils Percent Auto 0.1 % (0-2); Eosinophils Absolute Auto 0 /uL (0-450); Eosinophils Percent Auto 0.2 % (2-4); Hematocrit 28.6 % (41-53); Hemoglobin 9.8 g/dL (13.5-17.5); Lymphocytes Absolute Auto 500 /uL (1100-4500); Lymphocytes Percent Auto 5.4 % (25-40); Mean Corpuscular HGB Conc 34.4 % (30-36); Mean Corpuscular Hemoglobin 32.7 PG (26-34); Mean Corpuscular Volume 95.1 fL (80-100); Monocytes Absolute Auto 800 /uL (0-900); Monocytes Percent Auto 9.1 % (3-14); Neutrophils Absolute Auto 7400 /uL (1500-7000); Neutrophils Percent Auto 85.2 % (50-75); Platelet Count 109 X10^3/uL (150-400); Red Cell Distribution Width 14.3 % (11.6-14.8); White Blood Cell Count 8.7 X10^3/uL (4.5-11.0)
[2023-04-14 11:28] LABS: Alanine Aminotransferase 17 IU/L (<50); Albumin 4.1 g/dL (3.5-5.0); Alkaline Phosphatase 112 U/L (38-126); Bilirubin Total 0.8 mg/dL (0.2-1.3); Blood Urea Nitrogen 31 mg/dL (9-20); Calcium 9.1 mg/dL (8.4-10.2); Carbon Dioxide 25 mmol/L (22-32); Chloride 97 mmol/L (98-107); Estimated Glomerular Filt Rate > 60 mL/min (>60); Glucose 286 mg/dL (70-100); HEMOLYSIS < 15 (0-50); Potassium 4.3 mmol/L (3.4-5.1); Sodium 131 mmol/L (137-145); Total Protein 8.1 g/dL (6.3-8.2)
[2023-04-16 15:52] LABS: Aspartate Aminotransferase 29 IU/L (17-59)
[2023-04-25 17:17] LABS: Interpretation Positive (.)
== END ==
PROVIDERS: PCP Family Medicine; Referring Provider Internal Medicine Hematology & Oncology; Visit Provider Internal Medicine Hematology & Oncology
DX: C92.10 Chronic myeloid leukemia, BCR/ABL-positive, not having achieved remission (principal); G89.3 Neoplasm related pain (acute) (chronic)
CPT/HCPCS: 36415; 80053; 81206; 81207; 85025

== ENCOUNTER 2023-04-15 01:59 | Emergency (ER) | payer OTHER, MEDICAID, SELFPAY ==
[2022-12-27 00:30] VITALS: BMI 19.8
[2023-04-15] VITALS (22 sets, daily range): BP systolic 158–222; BP diastolic 88–110; PULSE 63–96; RESP 20–46; TEMP 36.9–37.7; O2SAT 94–97; BMI 19.8
--- NOTE | 2023-04-15 01:59 | ED_ITS ---
HPI - General Adult <Tere Tirado MD - Last Filed: 04/18/23 18:12> General Chief complaint: Diabetic Problem Stated complaint: hypoglycemia Time Seen by Provider: 04/15/23 02:00 History of Present Illness HPI narrative: 47-year-old gentleman with a history of diabetes, CML, hepatitis, congestive heart failure, history of distant alcohol and opioid abuse comes in initially after an EMS call for hypoglycemia. Patient states that he typically sits his alarms for a sugar of 80 as his blood sugars typically run in the 200s. With a brief review of lab work I do not see any recent hemoglobin A1cs in his chart. He states that he has been feeling generally off for about a week with myalgias but isn't more specific than that. He states that he has had a couple of episodes of emesis over the last couple of days with no blood in this. He reports no diarrhea or bloody stool. He is not describing fevers or chills. No specific cough. Medics note that his sugar was 70 on arrival, he had a soda and requested transport to the ER. Related Data Home Medications Medication Instructions Recorded Confirmed lorazepam 1 mg tablet 1 mg PO TID PRN nauseas 03/09/22 10/17/22 dasatinib 100 mg tablet (Sprycel) 100 mg PO DAILY 05/11/22 12/27/22 Previous Rx's Medication Instructions Recorded BD U/F Hilda Pen Needle [id number] #100 ea 06/13/18 insulin lispro 100 unit/mL 1 - 12 unit (0.01 - 0.12 mL) 05/11/22 subcutaneous pen (Humalog KwikPen SUBCUT TIDCC #1 ea (U-100) Insulin) lactulose 10 gram/15 mL oral 15 ml PO DAILY #473 mL 05/11/22 solution (Constulose) glucagon HCl 1 mg solution for 1 mg SUBCUT Q20M PRN hypoglycemia 10/23/22 injection (Glucagon (HCl) #2 ea Emergency Kit) Lantus Solostar U-100 Insulin 100 20 unit (0.2 mL) SUBCUT DAILY #15 11/03/22 unit/mL (3 mL) subcutaneous pen mL (insulin glargine) blood-glucose sensor (Dexcom G6 #3 ea 11/06/22 Sensor device) blood-glucose transmitter (Dexcom #1 ea 11/06/22 G6 Transmitter device) pregabalin 25 mg capsule 25 mg PO TID #90 caps 01/19/23 azithromycin 250 mg tablet See Rx Instructions PO .COMPLEX #6 04/15/23 tabs torsemide 20 mg tablet 20 mg PO DAILY #30 tabs 04/15/23 Allergies Allergy/AdvReac Type Severity Reaction Status Date / Time adhesive Allergy Intermediate rash, skin Verified 03/18/23 13:21 tear latex [LATEX] Allergy Unknown rash, skin Verified 03/18/23 13:21 tear Review of Systems <Tere Tirado MD - Last Filed: 04/18/23 18:12> Review of Systems Narrative: Pertinent positive and negative findings as per HPI Patient History <Tere Tirado MD - Last Filed: 04/18/23 18:12> Medical History Ataxia Cervical radiculopathy Cervicalgia Cancer of blood vessel Pancytopenia Chronic, continuous use of opioids Central cord syndrome at C3 level of cervical spinal cord Thrombocytopenia Alcoholism Insulin dependent diabetes mellitus CML (chronic myelocytic leukemia) Surgical History Status post appendectomy Family History Grandfather Diabetes mellitus Mother Cancer History of heart disease Father Hyperlipidemia History of heart disease Social History household members: none Smoking Status: Former smoker Tobacco: How many years used: 10 Smokeless tobacco user: chewing tobacco (current ) quit status: considering quitting alcohol intake: former (Quit 2019 ) substance use type: former substance user, marijuana and opiates Smoking Status: Former smoker tobacco type: cigarettes and smokeless tobacco alcohol intake frequency: 0-2 drinks per day Alcohol type: beer Substance Use Type: marijuana Exam <Tere Tirado MD - Last Filed: 04/18/23 18:12> Narrative Exam Narrative: General: Frail anxious and chronically ill-appearing Able to give a complete and coherent history. Appears quite anxious HEENT: Moist mucous membranes, normal sclera with reactive pupils, Neck: No JVD, supple Respiratory: Lungs are clear to auscultation, no wheezing no rales no rhonchi. Full and symmetrical air movement Cardiac: Tachycardic but otherwise Regular rate and rhythm no murmurs no bruits Abdomen: Soft, describes mild diffuse tenderness, there is no rebound or guarding, no flank pain Skin: Pale, he has Band-Aids the posterior heel and lateral aspect of his right foot placed by home health. No significant underlying infection Neurologic: Globally weak, Grossly neurologically intact with no obvious asymmetries or abnormalities Extremities: No trauma, significant muscle deterioration Psych: Cooperative, fluent speech Initial Vital Signs Initial Vital Signs: Vital Signs Temperature 99.9 F H 04/15/23 02:03 Pulse Rate 86 04/15/23 02:03 Respiratory Rate 20 04/15/23 02:03 Blood Pressure 193/100 H 04/15/23 02:03 Pulse Oximetry 97 04/15/23 02:03 Oxygen Delivery Method Room Air 04/15/23 02:03 <Jermaine Daly DO - Last Filed: 04/15/23 08:40> Initial Vital Signs Initial Vital Signs: Vital Signs Temperature 99.9 F H 04/15/23 02:03 Pulse Rate 86 04/15/23 02:03 Respiratory Rate 20 04/15/23 02:03 Blood Pressure 193/100 H 04/15/23 02:03 Pulse Oximetry 97 04/15/23 02:03 Oxygen Delivery Method Room Air 04/15/23 02:03 Course <Tere Tirado MD - Last Filed: 04/18/23 18:12> Orders Ordered: Discontinued Medications Bisacodyl (Bisacodyl 5 Mg Tablet) 10 mg PO NOW ONE Stop: 04/15/23 06:30 Last Admin: 04/15/23 06:57 Dose: 10 mg Documented By: RONAN Diazepam (Diazepam 10 Mg/2 Ml Syringe) 5 mg IV NOW ONE Stop: 04/15/23 02:54 Last Admin: 04/15/23 03:30 Dose: 5 mg Documented By: RNOAN Furosemide (Furosemide 40 Mg/4 Ml Vial) 40 mg IV NOW ONE Stop: 04/15/23 03:22 Last Admin: 04/15/23 03:36 Dose: 40 mg Documented By: RONAN Hydralazine HCl (Hydralazine 20 Mg/Ml Vial) 20 mg IV NOW ONE Stop: 04/15/23 04:15 Last Admin: 04/15/23 04:19 Dose: 20 mg Documented By: RONAN Hydromorphone HCl (Hydromorphone 0.5 Mg Inj) 0.5 mg IV NOW ONE Stop: 04/15/23 04:17 Last Admin: 04/15/23 04:53 Dose: 0.5 mg Documented By: RONAN Hydromorphone HCl (Hydromorphone 0.5 Mg Inj) 0.5 mg IV NOW ONE Stop: 04/15/23 08:33 Last Admin: 04/15/23 08:53 Dose: 0.5 mg Documented By: CAITLIN Sodium Chloride (Normal Saline 0.9%) 1,000 mls @ 1,000 mls/hr IV BOLUS ONE Stop: 04/15/23 03:02 Last Infusion: 04/15/23 03:42 Dose: Infused Documented By: Admin: 04/15/23 02:42 Dose: 1,000 mls/hr Documented By: RONAN Piperacillin Sod/Tazobactam (Sod 4.5 gm/ Sodium Chloride) 100 mls @ 200 mls/hr IV NOW ONE Stop: 04/15/23 04:20 Last Infusion: 04/15/23 05:35 Dose: Infused Documented By: Admin: 04/15/23 05:01 Dose: 200 mls/hr Documented By: RONAN Ondansetron HCl (Ondansetron 4 Mg/2 Ml Inj) 4 mg IV NOW ONE Stop: 04/15/23 02:04 Last Admin: 04/15/23 02:43 Dose: 4 mg Documented By: RONAN Pantoprazole Sodium (Pantoprazole 40 Mg Vial) 40 mg IV NOW ONE Stop: 04/15/23 02:54 Last Admin: 04/15/23 03:26 Dose: 40 mg Documented By: RONAN Vital Signs Vital signs: Vital Signs - 8 hr 04/15/23 02:03 04/15/23 02:08 04/15/23 02:30 Temperature 99.9 F H Pulse Rate 86 81 83 Respiratory Rate 20 27 H 24 Blood Pressure 193/100 H Pulse Oximetry 97 95 95 Oxygen Delivery Method Room Air Room Air Room Air 04/15/23 03:00 04/15/23 03:30 04/15/23 04:00 Temperature Pulse Rate 80 82 84 Respiratory Rate 27 H 33 H 30 H Blood Pressure Pulse Oximetry 96 96 96 Oxygen Delivery Method Room Air Room Air Room Air 04/15/23 04:12 04/15/23 04:12 04/15/23 04:19 Temperature Pulse Rate 72 63 Respiratory Rate 22 Blood Pressure 222/101 H 222/101 H Pulse Oximetry 97 Oxygen Delivery Method Room Air 04/15/23 04:30 04/15/23 04:30 04/15/23 04:38 Temperature Pulse Rate 90 Respiratory Rate 26 H Blood Pressure 189/110 H 158/88 H Pulse Oximetry 97 Oxygen Delivery Method Room Air 04/15/23 04:38 04/15/23 04:53 04/15/23 05:13 Temperature 98.7 F Pulse Rate 84 96 H Respiratory Rate 22 Blood Pressure Pulse Oximetry 96 Oxygen Delivery Method Room Air 04/15/23 05:30 04/15/23 05:36 04/15/23 05:36 Temperature Pulse Rate 92 H 85 Respiratory Rate 28 H 21 Blood Pressure 183/94 H Pulse Oximetry 96 96 Oxygen Delivery Method Room Air Room Air 04/15/23 06:00 04/15/23 06:00 04/15/23 06:30 Temperature Pulse Rate 92 H Respiratory Rate 23 Blood Pressure 186/91 H 163/89 H Pulse Oximetry 95 Oxygen Delivery Method 04/15/23 06:30 04/15/23 07:00 04/15/23 07:00 Temperature Pulse Rate 84 85 Respiratory Rate 46 H 27 H Blood Pressure 166/93 H Pulse Oximetry 95 95 Oxygen Delivery Method Room Air <Jermaine Daly DO - Last Filed: 04/15/23 08:40> Orders Ordered: Discontinued Medications Bisacodyl (Bisacodyl 5 Mg Tablet) 10 mg PO NOW ONE Stop: 04/15/23 06:30 Last Admin: 04/15/23 06:57 Dose: 10 mg Documented By: RONAN Diazepam (Diazepam 10 Mg/2 Ml Syringe) 5 mg IV NOW ONE Stop: 04/15/23 02:54 Last Admin: 04/15/23 03:30 Dose: 5 mg Documented By: RONAN Furosemide (Furosemide 40 Mg/4 Ml Vial) 40 mg IV NOW ONE Stop: 04/15/23 03:22 Last Admin: 04/15/23 03:36 Dose: 40 mg Documented By: RNOAN Hydralazine HCl (Hydralazine 20 Mg/Ml Vial) 20 mg IV NOW ONE Stop: 04/15/23 04:15 Last Admin: 04/15/23 04:19 Dose: 20 mg Documented By: RONAN Hydromorphone HCl (Hydromorphone 0.5 Mg Inj) 0.5 mg IV NOW ONE Stop: 04/15/23 04:17 Last Admin: 04/15/23 04:53 Dose: 0.5 mg Documented By: RONAN Hydromorphone HCl (Hydromorphone 0.5 Mg Inj) 0.5 mg IV NOW ONE Stop: 04/15/23 08:33 Last Admin: 04/15/23 08:53 Dose: 0.5 mg Documented By: CAITLIN Sodium Chloride (Normal Saline 0.9%) 1,000 mls @ 1,000 mls/hr IV BOLUS ONE Stop: 04/15/23 03:02 Last Infusion: 04/15/23 03:42 Dose: Infused Documented By: Admin: 04/15/23 02:42 Dose: 1,000 mls/hr Documented By: RONAN Piperacillin Sod/Tazobactam (Sod 4.5 gm/ Sodium Chloride) 100 mls @ 200 mls/hr IV NOW ONE Stop: 04/15/23 04:20 Last Infusion: 04/15/23 05:35 Dose: Infused Documented By: Admin: 04/15/23 05:01 Dose: 200 mls/hr Documented By: RONAN Ondansetron HCl (Ondansetron 4 Mg/2 Ml Inj) 4 mg IV NOW ONE Stop: 04/15/23 02:04 Last Admin: 04/15/23 02:43 Dose: 4 mg Documented By: RONAN Pantoprazole Sodium (Pantoprazole 40 Mg Vial) 40 mg IV NOW ONE Stop: 04/15/23 02:54 Last Admin: 04/15/23 03:26 Dose: 40 mg Documented By: RONAN Vital Signs Vital signs: Vital Signs - 8 hr 04/15/23 02:03 04/15/23 02:08 04/15/23 02:30 Temperature 99.9 F H Pulse Rate 86 81 83 Respiratory Rate 20 27 H 24 Blood Pressure 193/100 H Pulse Oximetry 97 95 95 Oxygen Delivery Method Room Air Room Air Room Air 04/15/23 03:00 04/15/23 03:30 04/15/23 04:00 Temperature Pulse Rate 80 82 84 Respiratory Rate 27 H 33 H 30 H Blood Pressure Pulse Oximetry 96 96 96 Oxygen Delivery Method Room Air Room Air Room Air 04/15/23 04:12 04/15/23 04:12 04/15/23 04:19 Temperature Pulse Rate 72 63 Respiratory Rate 22 Blood Pressure 222/101 H 222/101 H Pulse Oximetry 97 Oxygen Delivery Method Room Air 04/15/23 04:30 04/15/23 04:30 04/15/23 04:38 Temperature Pulse Rate 90 Respiratory Rate 26 H Blood Pressure 189/110 H 158/88 H Pulse Oximetry 97 Oxygen Delivery Method Room Air 04/15/23 04:38 04/15/23 04:53 04/15/23 05:13 Temperature 98.7 F Pulse Rate 84 96 H Respiratory Rate 22 Blood Pressure Pulse Oximetry 96 Oxygen Delivery Method Room Air 04/15/23 05:30 04/15/23 05:36 04/15/23 05:36 Temperature Pulse Rate 92 H 85 Respiratory Rate 28 H 21 Blood Pressure 183/94 H Pulse Oximetry 96 96 Oxygen Delivery Method Room Air Room Air 04/15/23 06:00 04/15/23 06:00 04/15/23 06:30 Temperature Pulse Rate 92 H Respiratory Rate 23 Blood Pressure 186/91 H 163/89 H Pulse Oximetry 95 Oxygen Delivery Method 04/15/23 06:30 04/15/23 07:00 04/15/23 07:00 Temperature Pulse Rate 84 85 Respiratory Rate 46 H 27 H Blood Pressure 166/93 H Pulse Oximetry 95 95 Oxygen Delivery Method Room Air Medical Decision Making <Tere Tirado MD - Last Filed: 04/18/23 18:12> Lab Data 04/15/23 02:35 04/15/23 02:35 Labs: Lab Results 04/15/23 04/15/23 04/15/23 Range/Units 02:35 03:40 04:52 WBC 11.0 (4.5-11.0) X10^3/uL RBC 2.69 L (4.5-5.9) X10^6/uL Hgb 8.8 L (13.5-17.5) g/dL Hct 25.3 L (41-53) % MCV 94.1 (80-100) fL MCH 32.7 (26-34) PG MCHC 34.7 (30-36) % RDW 14.3 (11.6-14.8) % Plt Count 89 L (150-400) X10^3/uL Neut % (Auto) 87.2 H (50-75) % Lymph % (Auto) 3.4 L (25-40) % [place] % (Auto) 8.6 (3-14) % Eos % (Auto) 0.4 L (2-4) % Baso % (Auto) 0.4 (0-2) % Neut # (Auto) 9600 H (3900-5837) /uL Lymph # (Auto) 400 L (3820-7409) /uL [place] # (Auto) 900 (0-900) /uL Eos # (Auto) 0 (0-450) /uL Baso # (Auto) 0 (0-100) /uL Sodium 131 L (137-145) mmol/L Potassium 4.2 (3.4-5.1) mmol/L Chloride 97 L (98-107) mmol/L Carbon Dioxide 26 (22-32) mmol/L BUN 29 H (9-20) mg/dL Creatinine 0.94 (0.66-1.25) mg/dL Estimated GFR > 60 (>60) mL/min BUN/Creatinine Ratio 30.9 H (6-22) Glucose 67 L D (70-100) mg/dL Lactate 1.2 (0.7-2.1) mmol/L Calcium 8.9 (8.4-10.2) mg/dL Magnesium 1.7 (1.6-2.3) mg/dL Total Bilirubin 0.6 (0.2-1.3) mg/dL AST 30 (17-59) IU/L ALT 16 (<50) IU/L Alkaline Phosphatase 95 (38-126) U/L Troponin I 0.033 (0.01-0.034) ng/mL NT-Pro-B Natriuret Pep 5290 H (<125) pg/mL Total Protein 7.6 (6.3-8.2) g/dL Albumin 3.8 (3.5-5.0) g/dL Globulin 3.8 (1.7-4.1) g/dL Albumin/Globulin Ratio 1.0 (1.0-2.8) Procalcitonin 0.19 (<0.5) ng/mL Urine Color Yellow Urine Appearance Clear Urine pH 5.0 (4.5-8.0) Ur Specific [place] >=1.030 H (1.000-1.035) Urine Protein 2+ H (Negative) Urine Glucose (UA) Negative (Negative) g/dL Urine Ketones Negative (NEGATIVE) Urine Occult Blood 3+ H (Negative) Urine Nitrate Negative (Negative) Urine Bilirubin Negative (NEGATIVE) Urine Urobilinogen 0.2 (0.2) E.U./dL Ur Leukocyte Esterase Negative (NEGATIVE) Urine RBC None seen (0-5/HPF) Urine WBC 0-1/hpf (0-5/HPF) Ur Squamous Epith Cells 0-1 /hpf (0-5/HPF) Urine Bacteria Occasional (0-1) (None) Ur Culture Indicated? Cult not indicated Chlamy pneumoniae PCR (Not Detect) Adenovirus (PCR) (Not Detect) B.parapertussis DNA PCR (Not Detecte) Coronavirus OC43 (PCR) (Not Detect) Coronavirus HKU1 (PCR) (Not Detect) Coronavirus 229E (PCR) (Not Detect) SARS-CoV-2 (PCR) (Not Detecte) Coronavirus NL63 (PCR) (Not Detect) Human Metapneumovir PCR (Not Detect) Influenza Type A (PCR) (Not Detect) Influenza Type B (PCR) (Not Detect) M. pneumoniae (PCR) (Not Detect) Parainfluenza 1 (PCR) (Not Detect) Parainfluenza 2 (PCR) (Not Detect) Parainfluenza 3 (PCR) (Not Detect) Parainfluenza 4 (PCR) (Not Detect) RSV (PCR) (Not Detect) Entero/Rhino (PCR) (Not Detect) 04/15/23 Range/Units 07:30 WBC (4.5-11.0) X10^3/uL RBC (4.5-5.9) X10^6/uL Hgb (13.5-17.5) g/dL Hct (41-53) % MCV (80-100) fL MCH (26-34) PG MCHC (30-36) % RDW (11.6-14.8) % Plt Count (150-400) X10^3/uL Neut % (Auto) (50-75) % Lymph % (Auto) (25-40) % [place] % (Auto) (3-14) % Eos % (Auto) (2-4) % Baso % (Auto) (0-2) % Neut # (Auto) (8697-6199) /uL Lymph # (Auto) (8314-7487) /uL [place] # (Auto) (0-900) /uL Eos # (Auto) (0-450) /uL Baso # (Auto) (0-100) /uL Sodium (137-145) mmol/L Potassium (3.4-5.1) mmol/L Chloride (98-107) mmol/L Carbon Dioxide (22-32) mmol/L BUN (9-20) mg/dL Creatinine (0.66-1.25) mg/dL Estimated GFR (>60) mL/min BUN/Creatinine Ratio (6-22) Glucose (70-100) mg/dL Lactate (0.7-2.1) mmol/L Calcium (8.4-10.2) mg/dL Magnesium (1.6-2.3) mg/dL Total Bilirubin (0.2-1.3) mg/dL AST (17-59) IU/L ALT (<50) IU/L Alkaline Phosphatase (38-126) U/L Troponin I (0.01-0.034) ng/mL NT-Pro-B Natriuret Pep (<125) pg/mL Total Protein (6.3-8.2) g/dL Albumin (3.5-5.0) g/dL Globulin (1.7-4.1) g/dL Albumin/Globulin Ratio (1.0-2.8) Procalcitonin (<0.5) ng/mL Urine Color Urine Appearance Urine pH (4.5-8.0) Ur Specific [place] (1.000-1.035) Urine Protein (Negative) Urine Glucose (UA) (Negative) g/dL Urine Ketones (NEGATIVE) Urine Occult Blood (Negative) Urine Nitrate (Negative) Urine Bilirubin (NEGATIVE) Urine Urobilinogen (0.2) E.U./dL Ur Leukocyte Esterase (NEGATIVE) Urine RBC (0-5/HPF) Urine WBC (0-5/HPF) Ur Squamous Epith Cells (0-5/HPF) Urine Bacteria (None) Ur Culture Indicated? Chlamy pneumoniae PCR Not detected (Not Detect) Adenovirus (PCR) Not detected (Not Detect) B.parapertussis DNA PCR Not detected (Not Detecte) Coronavirus OC43 (PCR) Not detected (Not Detect) Coronavirus HKU1 (PCR) Not detected (Not Detect) Coronavirus 229E (PCR) Not detected (Not Detect) SARS-CoV-2 (PCR) Not detected (Not Detecte) Coronavirus NL63 (PCR) Not detected (Not Detect) Human Metapneumovir PCR Not detected (Not Detect) Influenza Type A (PCR) Not detected (Not Detect) Influenza Type B (PCR) Not detected (Not Detect) M. pneumoniae (PCR) Not detected (Not Detect) Parainfluenza 1 (PCR) Not detected (Not Detect) Parainfluenza 2 (PCR) Not detected (Not Detect) Parainfluenza 3 (PCR) Not detected (Not Detect) Parainfluenza 4 (PCR) Not detected (Not Detect) RSV (PCR) Not detected (Not Detect) Entero/Rhino (PCR) Not detected (Not Detect) Point of Care Testing Glucose POC 103 Point of care testing: Point of Care Testing Glucose POC 103 MDM Narrative Medical decision making narrative: CC: General malaise for a week with an episode of hypoglycemia to 70 this evening Complicating co-morbidities: CML, hepatitis, insulin-dependent diabetes, former polysubstance use, describes recent weight loss, significant anxiety. He is had a history of osteomyelitis, multiple neck and back surgeries with chronic neck and back pain Data collected from: patient Social determinants of health that may influence the patients condition: Significant anxiety, lives independently, states that he does get out of the house, he does have home health that comes out regularly Medical records reviewed: Primary care notes from August of 2022 and February of 2022 along with pain management consultation in September of this year and multiple ER visits throughout the end of the your are all reviewed Differential considered: Differential is vast and includes everything from DKA 2 chronic abdominal pain, infection, congestive heart failure, overall decompensation, viral syndrome Exam documented above, pertinent findings include: 47-year-old gentleman chronically ill appearing and cachectic. Hyper alert and significantly anxious. Describes diffuse abdominal tenderness but does not have rebound or guarding. Wounds over his right heel have light bandages over them but do appear to be almost healed and no evidence of cellulitis Lab Test results independently reviewed as above. Pertinent findings: CBC shows a white count of 11.0. H and H are 8.8 and 25.3 which is on his higher side of normal. Platelets are at 89 which is his baseline Chemistries show normal renal function and electrolytes. Glucose is it 67 proBNP is elevated at 5290 which is a significant increase from last check about a month ago at 1380 Procalcitonin is not elevated Troponin is minimally elevated at 0 0.033 which is still in the normal range. Anion gap is normal at 8 Lactic acid is unremarkable Independently reviewed EKG: Sinus rhythm at a rate of 173. Left ventricular hypertrophy. QTC is prolonged at 515 milliseconds. Imaging studies independently reviewed: Chest x-ray shows cardiomegaly with a right middle and right lower lobe infiltrate. The infiltrate is new as of March 18. CT of the abdomen and pelvis shows patchy consolidation within the right middle and left lower lobe. He is a moderate-sized pericardial effusion. He has cholelithiasis and trace pericholecystic fluid. Mild intrahepatic biliary ductal dilatation. Upper abdominal ascites. Pancreatic atrophy. Noted amount of large volume of stool within the colon: R small bowel are otherwise unremarkable Consultations: Hospitalist, Dr Romeo Treatments: Patient complains of abdominal pain he is given a dose of Protonix. A L of fluid, requests nausea medicine so is given Zofran. Requests anxiety and pain medication. He is given 5 mg of diazepam and I told him we would re- evaluate prior to any additional pain medication. Zosyn is started for presumed right middle and left lower lobe pneumonia. Re-evaluations:415am patient's blood pressure is still significantly elevated, still complaining of severe abdominal pain with anxiety not relieved after 5 mg of IV Valium. We will go ahead and add half a mg of Dilaudid and CT scan of his abdomen to see if additional etiology to explain his pain might be identified. He has had half a turkey sandwich and half an egg salad sandwich. The right lower and middle lobe infiltrates appreciated on chest x-ray are somewhat surprising given his complete lack of pulmonary complaints. This may however be contributing to his abdominal pain. His white count is increasing and given the fact that he is typically has a very low white blood cell count it is of interest. We will add a respiratory panel and we will begin treatment for presumed bacterial pneumonia with Zosyn after obtaining blood cultures and lactic acid. 6am pt continues to complain of abdominal pain Discussion: 47-year-old gentleman with multiple chronic medical issues and chronic pain issues. Presents complaining of generally feeling poorly with blood sugars in the 70s. Blood sugars have corrected nicely with eating. He has a history of CML and typically has relatively low white blood cell count. It is in the high-normal range at 11.0 today with 87.2% neutrophils. Chest x- ray and CT scan both suggest right middle and lower lobe pneumonias. He is started on Zosyn for the bilateral pneumonia. There is no evidence of diabetic ketoacidosis or significant sepsis. He does continue to complain of abdominal pain which did not respond to antianxiety medications nor half a mg of Dilaudid. He has developing cirrhosis and mild upper extremity ascites. He has known gallstones but is not particularly tender in the right upper quadrant. I suspect that quite a bit of his abdominal pain is secondary to severe constipation. Will recommend hospitalization at this time for treatment of 1. Bilateral pneumonia right middle lobe left lower lobe- zosyn started. No signs of sepsis 2. Pericardial effusion, suspect more chonic than acute, may benefit from echocardiogram 3. Abdominal pain - chonic issue, constipation (dulcolax given), mild upper abd ascites (due to cirrhosis), possible cholecystitis (abdominal ultrasound is ordered) 4. Hypoglycemia -currently resolved 5. Congestive heart failure, Lasix given and he is beginning to show moderate diuresis 645am long discussion with the patient's father. His father is concerned with return to use with narcotics. Apparently he was given 120 tablets of 5 mg of methadone for his chronic pain and has been significantly overusing these. Since restarting narcotics his dad reports that he frequently will simply lay on the couch with being incontinent of stool and urine as well as vomiting. He is stopped eating, he is lost significant amounts of weight, he is no longer taking care of his home or himself. His father requests that we stop all of his narcotics. The narcotics may also be contributing to the significant constipation. Care is turned over at change of shift to Dr. Daly, abdominal ultrasound currently pending. Night hospitalist will let the day hospitalist know that this admission is pending <Jermaine Daly, DO - Last Filed: 04/15/23 08:40> Lab Data Lab results reviewed: Yes I reviewed the patient's lab results. Labs: Lab Results 04/15/23 04/15/23 04/15/23 Range/Units 02:35 03:40 04:52 WBC 11.0 (4.5-11.0) X10^3/uL RBC 2.69 L (4.5-5.9) X10^6/uL Hgb 8.8 L (13.5-17.5) g/dL Hct 25.3 L (41-53) % MCV 94.1 (80-100) fL MCH 32.7 (26-34) PG MCHC 34.7 (30-36) % RDW 14.3 (11.6-14.8) % Plt Count 89 L (150-400) X10^3/uL Neut % (Auto) 87.2 H (50-75) % Lymph % (Auto) 3.4 L (25-40) % [place] % (Auto) 8.6 (3-14) % Eos % (Auto) 0.4 L (2-4) % Baso % (Auto) 0.4 (0-2) % Neut # (Auto) 9600 H (3471-8418) /uL Lymph # (Auto) 400 L (8435-6757) /uL [place] # (Auto) 900 (0-900) /uL Eos # (Auto) 0 (0-450) /uL Baso # (Auto) 0 (0-100) /uL Sodium 131 L (137-145) mmol/L Potassium 4.2 (3.4-5.1) mmol/L Chloride 97 L (98-107) mmol/L Carbon Dioxide 26 (22-32) mmol/L BUN 29 H (9-20) mg/dL Creatinine 0.94 (0.66-1.25) mg/dL Estimated GFR > 60 (>60) mL/min BUN/Creatinine Ratio 30.9 H (6-22) Glucose 67 L D (70-100) mg/dL Lactate 1.2 (0.7-2.1) mmol/L Calcium 8.9 (8.4-10.2) mg/dL Magnesium 1.7 (1.6-2.3) mg/dL Total Bilirubin 0.6 (0.2-1.3) mg/dL AST 30 (17-59) IU/L ALT 16 (<50) IU/L Alkaline Phosphatase 95 (38-126) U/L Troponin I 0.033 (0.01-0.034) ng/mL NT-Pro-B Natriuret Pep 5290 H (<125) pg/mL Total Protein 7.6 (6.3-8.2) g/dL Albumin 3.8 (3.5-5.0) g/dL Globulin 3.8 (1.7-4.1) g/dL Albumin/Globulin Ratio 1.0 (1.0-2.8) Procalcitonin 0.19 (<0.5) ng/mL Urine Color Yellow Urine Appearance Clear Urine pH 5.0 (4.5-8.0) Ur Specific [place] >=1.030 H (1.000-1.035) Urine Protein 2+ H (Negative) Urine Glucose (UA) Negative (Negative) g/dL Urine Ketones Negative (NEGATIVE) Urine Occult Blood 3+ H (Negative) Urine Nitrate Negative (Negative) Urine Bilirubin Negative (NEGATIVE) Urine Urobilinogen 0.2 (0.2) E.U./dL Ur Leukocyte Esterase Negative (NEGATIVE) Urine RBC None seen (0-5/HPF) Urine WBC 0-1/hpf (0-5/HPF) Ur Squamous Epith Cells 0-1 /hpf (0-5/HPF) Urine Bacteria Occasional (0-1) (None) Ur Culture Indicated? Cult not indicated Chlamy pneumoniae PCR (Not Detect) Adenovirus (PCR) (Not Detect) B.parapertussis DNA PCR (Not Detecte) Coronavirus OC43 (PCR) (Not Detect) Coronavirus HKU1 (PCR) (Not Detect) Coronavirus 229E (PCR) (Not Detect) SARS-CoV-2 (PCR) (Not Detecte) Coronavirus NL63 (PCR) (Not Detect) Human Metapneumovir PCR (Not Detect) Influenza Type A (PCR) (Not Detect) Influenza Type B (PCR) (Not Detect) M. pneumoniae (PCR) (Not Detect) Parainfluenza 1 (PCR) (Not Detect) Parainfluenza 2 (PCR) (Not Detect) Parainfluenza 3 (PCR) (Not Detect) Parainfluenza 4 (PCR) (Not Detect) RSV (PCR) (Not Detect) Entero/Rhino (PCR) (Not Detect) 04/15/23 Range/Units 07:30 WBC (4.5-11.0) X10^3/uL RBC (4.5-5.9) X10^6/uL Hgb (13.5-17.5) g/dL Hct (41-53) % MCV (80-100) fL MCH (26-34) PG MCHC (30-36) % RDW (11.6-14.8) % Plt Count (150-400) X10^3/uL Neut % (Auto) (50-75) % Lymph % (Auto) (25-40) % [place] % (Auto) (3-14) % Eos % (Auto) (2-4) % Baso % (Auto) (0-2) % Neut # (Auto) (0203-7572) /uL Lymph # (Auto) (8614-5208) /uL [place] # (Auto) (0-900) /uL Eos # (Auto) (0-450) /uL Baso # (Auto) (0-100) /uL Sodium (137-145) mmol/L Potassium (3.4-5.1) mmol/L Chloride (98-107) mmol/L Carbon Dioxide (22-32) mmol/L BUN (9-20) mg/dL Creatinine (0.66-1.25) mg/dL Estimated GFR (>60) mL/min BUN/Creatinine Ratio (6-22) Glucose (70-100) mg/dL Lactate (0.7-2.1) mmol/L Calcium (8.4-10.2) mg/dL Magnesium (1.6-2.3) mg/dL Total Bilirubin (0.2-1.3) mg/dL AST (17-59) IU/L ALT (<50) IU/L Alkaline Phosphatase (38-126) U/L Troponin I (0.01-0.034) ng/mL NT-Pro-B Natriuret Pep (<125) pg/mL Total Protein (6.3-8.2) g/dL Albumin (3.5-5.0) g/dL Globulin (1.7-4.1) g/dL Albumin/Globulin Ratio (1.0-2.8) Procalcitonin (<0.5) ng/mL Urine Color Urine Appearance Urine pH (4.5-8.0) Ur Specific [place] (1.000-1.035) Urine Protein (Negative) Urine Glucose (UA) (Negative) g/dL Urine Ketones (NEGATIVE) Urine Occult Blood (Negative) Urine Nitrate (Negative) Urine Bilirubin (NEGATIVE) Urine Urobilinogen (0.2) E.U./dL Ur Leukocyte Esterase (NEGATIVE) Urine RBC (0-5/HPF) Urine WBC (0-5/HPF) Ur Squamous Epith Cells (0-5/HPF) Urine Bacteria (None) Ur Culture Indicated? Chlamy pneumoniae PCR Not detected (Not Detect) Adenovirus (PCR) Not detected (Not Detect) B.parapertussis DNA PCR Not detected (Not Detecte) Coronavirus OC43 (PCR) Not detected (Not Detect) Coronavirus HKU1 (PCR) Not detected (Not Detect) Coronavirus 229E (PCR) Not detected (Not Detect) SARS-CoV-2 (PCR) Not detected (Not Detecte) Coronavirus NL63 (PCR) Not detected (Not Detect) Human Metapneumovir PCR Not detected (Not Detect) Influenza Type A (PCR) Not detected (Not Detect) Influenza Type B (PCR) Not detected (Not Detect) M. pneumoniae (PCR) Not detected (Not Detect) Parainfluenza 1 (PCR) Not detected (Not Detect) Parainfluenza 2 (PCR) Not detected (Not Detect) Parainfluenza 3 (PCR) Not detected (Not Detect) Parainfluenza 4 (PCR) Not detected (Not Detect) RSV (PCR) Not detected (Not Detect) Entero/Rhino (PCR) Not detected (Not Detect) Point of Care Testing Glucose POC 103 Point of care testing: Point of Care Testing Glucose POC 103 [facility] Narrative Medical decision making narrative: CC: General malaise for a week with an episode of hypoglycemia to 70 this evening Complicating co-morbidities: CML, hepatitis, insulin-dependent diabetes, former polysubstance use, describes recent weight loss, significant anxiety. He is had a history of osteomyelitis, multiple neck and back surgeries with chronic neck and back pain Data collected from: patient Social determinants of health that may influence the patients condition: Significant anxiety, lives independently, states that he does get out of the house, he does have home health that comes out regularly Medical records reviewed: Primary care notes from August of 2022 and February of 2022 along with pain management consultation in September of this year and multiple ER visits throughout the end of the your are all reviewed Differential considered: Differential is vast and includes everything from DKA 2 chronic abdominal pain, infection, congestive heart failure, overall decompensation, viral syndrome Exam documented above, pertinent findings include: 47-year-old gentleman chronically ill appearing and cachectic. Hyper alert and significantly anxious. Describes diffuse abdominal tenderness but does not have rebound or guarding. Wounds over his right heel have light bandages over them but do appear to be almost healed and no evidence of cellulitis Lab Test results independently reviewed as above. Pertinent findings: CBC shows a white count of 11.0. H and H are 8.8 and 25.3 which is on his higher side of normal. Platelets are at 89 which is his baseline Chemistries show normal renal function and electrolytes. Glucose is it 67 proBNP is elevated at 5290 which is a significant increase from last check about a month ago at 1380 Procalcitonin is not elevated Troponin is minimally elevated at 0 0.033 which is still in the normal range. Anion gap is normal at 8 Lactic acid is unremarkable Independently reviewed EKG: Sinus rhythm at a rate of 173. Left ventricular hypertrophy. QTC is prolonged at 515 milliseconds. Imaging studies independently reviewed: Chest x-ray shows cardiomegaly with a right middle and right lower lobe infiltrate. The infiltrate is new as of March 18. CT of the abdomen and pelvis shows patchy consolidation within the right middle and left lower lobe. He is a moderate-sized pericardial effusion. He has cholelithiasis and trace pericholecystic fluid. Mild intrahepatic biliary ductal dilatation. Upper abdominal ascites. Pancreatic atrophy. Noted amount of large volume of stool within the colon: R small bowel are otherwise unremarkable Consultations: Hospitalist, Dr Romeo Treatments: Patient complains of abdominal pain he is given a dose of Protonix. A L of fluid, requests nausea medicine so is given Zofran. Requests anxiety and pain medication. He is given 5 mg of diazepam and I told him we would re- evaluate prior to any additional pain medication. Zosyn is started for presumed right middle and left lower lobe pneumonia. Re-evaluations:415am patient's blood pressure is still significantly elevated, still complaining of severe abdominal pain with anxiety not relieved after 5 mg of IV Valium. We will go ahead and add half a mg of Dilaudid and CT scan of his abdomen to see if additional etiology to explain his pain might be identified. He has had half a turkey sandwich and half an egg salad sandwich. The right lower and middle lobe infiltrates appreciated on chest x-ray are somewhat surprising given his complete lack of pulmonary complaints. This may however be contributing to his abdominal pain. His white count is increasing and given the fact that he is typically has a very low white blood cell count it is of interest. We will add a respiratory panel and we will begin treatment for presumed bacterial pneumonia with Zosyn after obtaining blood cultures and lactic acid. 6am pt continues to complain of abdominal pain Discussion: 47-year-old gentleman with multiple chronic medical issues and chronic pain issues. Presents complaining of generally feeling poorly with blood sugars in the 70s. Blood sugars have corrected nicely with eating. He has a history of CML and typically has relatively low white blood cell count. It is in the high-normal range at 11.0 today with 87.2% neutrophils. Chest x- ray and CT scan both suggest right middle and lower lobe pneumonias. He is started on Zosyn for the bilateral pneumonia. There is no evidence of diabetic ketoacidosis or significant sepsis. He does continue to complain of abdominal pain which did not respond to antianxiety medications nor half a mg of Dilaudid. He has developing cirrhosis and mild upper extremity ascites. He has known gallstones but is not particularly tender in the right upper quadrant. I suspect that quite a bit of his abdominal pain is secondary to severe constipation. Will recommend hospitalization at this time for treatment of 1. Bilateral pneumonia right middle lobe left lower lobe- zosyn started. No signs of sepsis 2. Pericardial effusion, suspect more chonic than acute, may benefit from echocardiogram 3. Abdominal pain - chonic issue, constipation (dulcolax given), mild upper abd ascites (due to cirrhosis), possible cholecystitis (abdominal ultrasound is ordered) 4. Hypoglycemia -currently resolved 5. Congestive heart failure, Lasix given and he is beginning to show moderate diuresis 645am long discussion with the patient's father. His father is concerned with return to use with narcotics. Apparently he was given 120 tablets of 5 mg of methadone for his chronic pain and has been significantly overusing these. Since restarting narcotics his dad reports that he frequently will simply lay on the couch with being incontinent of stool and urine as well as vomiting. He is stopped eating, he is lost significant amounts of weight, he is no longer taking care of his home or himself. His father requests that we stop all of his narcotics. The narcotics may also be contributing to the significant constipation. Care is turned over at change of shift to Dr. Daly, abdominal ultrasound currently pending. Night hospitalist will let the day hospitalist know that this admission is pending Dr Daly: Received turned over. Reviewed patient's history and physical and workup up to this point. Discussed the case with Dr. Boateng hospitalist who is on-call. We discussed admitting patient. Dr. Boateng evaluated patient in the emergency department. He has not hypoxic. His abdominal pain is chronic. He has been on diuretic in the past but not currently. After further evaluation with hospitalist the plan will be to discharge patient home on oral antibiotics. He is tolerating oral antibiotics. Apparently he had an appointment on this past Wednesday with his primary care provider but missed that appointment. He states they never called him. I advised that he call his primary doctor's office for follow-up. 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 Will send home on antibiotics and I will refill his diuretic Discharge Plan Departure Patient Disposition: Home Clinical Impression: Hypoglycemia, Abdominal pain, diffuse, Effusion, pericardium, Opioid use disorder Pneumonia Qualifiers: Pneumonia type: due to unspecified organism Laterality: bilateral Lung location: unspecified part of lung Qualified Code(s): J18.9 - Pneumonia, unspecified organism Constipation Qualifiers: Constipation type: unspecified constipation type Qualified Code(s): K59.00 - Constipation, unspecified Congestive heart failure, acute Qualifiers: Heart failure type: unspecified Qualified Code(s): I50.9 - Heart failure, unspecified Instructions: DI for Pneumonia -- Adult, DI for Abdominal Pain-Adult Activity Restrictions/Additional Instructions: You do need to continue to take all of your medications as directed. Management of your chronic pain will need to be from your primary care provider or your instructor painting. Recommend you contact your primary care doctor for a follow-up. Return to the emergency department for new symptoms. Prescriptions: New azithromycin 250 mg tablet See Rx Instructions .ROUTE .COMPLEX Qty: 6 0RF Rx Instructions: For 250 mg dose pack: take 500 mg today (day 1), then 250 mg for 4 days (days 2-5) torsemide 20 mg tablet 20 mg PO DAILY Qty: 30 0RF No Action (DME) BD U/F Hilda Pen Needle [id number] .Route .MEDSUPPLY Qty: 100 3RF Hold Instructions: ESTABLISHED AT NEW CLINIC Dose Instruction: As directed Rx Instructions: BD U/F Hilda Pen Needle [id number] use as directed with insulin insulin lispro [Humalog KwikPen Insulin] 100 unit/mL insulin pen 1 - 12 unit subcut TIDCC Qty: 1 3RF Hold Instructions: ESTABLISHED AT NEW CLINIC Patient Comments: patient states none today lactulose [Constulose] 10 gram/15 mL solution 15 ml PO DAILY Qty: 473 6RF Hold Instructions: ESTABLISHED AT NEW CL[facility]IC Sprycel 100 mg tablet 100 mg PO DAILY Hold Instructions: ESTABLISHED AT [facility] Patient Comments: pt started for his CML glucagon HCl [Glucagon (HCl) Emergency Kit] 1 mg recon soln 1 mg SUBCUT Q20M PRN (Reason: hypoglycemia) Qty: 2 0RF Hold Instructions: ESTABLISHED AT NEW CLINIC Rx Instructions: until target blood sugar attained insulin glargine [Lantus Solostar U-100 Insulin] 100 unit/mL (3 mL) insulin pen 20 unit SUBCUT DAILY Qty: 15 3RF Hold Instructions: [place]ABL[place] [facility] [place] [place]com G6 Sensor Device See Rx Instructions .Route Qty: 3 5RF Hold Instructions: ESTABLISHED AT [facility] Rx Instructions: [place] directed [place] [place] Dexcom G6 Transmitter Device See Rx Instructions .Route Qty: 1 3RF Hold Instructions: ESTABLISHED AT NEW CL[facility]IC Rx Instructions: As directed pregabalin 25 mg capsule 25 mg PO TID Qty: 90 0RF Hold Instructions: ESTABLISHED AT [facility] CL[facility]IC lorazepam 1 mg tablet 1 mg PO TID PRN (Reason: nauseas) Hold Instructions: ESTABLISHED AT NEW CLINIC Referrals: Zakia Kidd DO [Primary Care Provider] - Stand Alone Forms: Patient Portal/API
[2023-04-15] MEDS: SODIUM CHLORIDE 0.9% 1,000 ML 1000 ML IV (02:42)
[2023-04-15] MEDS: ONDANSETRON 4 MG/2 ML INJ IV (02:43)
[2023-04-15 02:45] LABS: Add Manual Diff / Slide Review NO; Basophils Absolute Auto 0 /uL (0-100); Basophils Percent Auto 0.4 % (0-2); Eosinophils Absolute Auto 0 /uL (0-450); Eosinophils Percent Auto 0.4 % (2-4); Hematocrit 25.3 % (41-53); Hemoglobin 8.8 g/dL (13.5-17.5); Lymphocytes Absolute Auto 400 /uL (1100-4500); Lymphocytes Percent Auto 3.4 % (25-40); Mean Corpuscular HGB Conc 34.7 % (30-36); Mean Corpuscular Hemoglobin 32.7 PG (26-34); Mean Corpuscular Volume 94.1 fL (80-100); Monocytes Absolute Auto 900 /uL (0-900); Monocytes Percent Auto 8.6 % (3-14); Neutrophils Absolute Auto 9600 /uL (1500-7000); Neutrophils Percent Auto 87.2 % (50-75); Platelet Count 89 X10^3/uL (150-400); Red Blood Cell Count 2.69 X10^6/uL (4.5-5.9); Red Cell Distribution Width 14.3 % (11.6-14.8)
[2023-04-15 02:57] LABS: Alanine Aminotransferase 16 IU/L (<50); Albumin 3.8 g/dL (3.5-5.0); Alkaline Phosphatase 95 U/L (38-126); BUN Creatinine Ratio 30.9 (6-22); Bilirubin Total 0.6 mg/dL (0.2-1.3); Blood Urea Nitrogen 29 mg/dL (9-20); Calcium 8.9 mg/dL (8.4-10.2); Carbon Dioxide 26 mmol/L (22-32); Chloride 97 mmol/L (98-107); Estimated Glomerular Filt Rate > 60 mL/min (>60); Globulin 3.8 g/dL (1.7-4.1); Glucose 67 mg/dL (70-100); HEMOLYSIS < 15 (0-50); Magnesium 1.7 mg/dL (1.6-2.3); Potassium 4.2 mmol/L (3.4-5.1); Sodium 131 mmol/L (137-145); Total Protein 7.6 g/dL (6.3-8.2)
[2023-04-15 03:08] LABS: NT-proBNP (BNP-Adult 18+) 5290 pg/mL (<125); Troponin I 0.033 ng/mL (0.01-0.034)
[2023-04-15 03:13] LABS: Procalcitonin 0.19 ng/mL (<0.5)
--- NOTE | 2023-04-15 03:21 | DI.RAD.S_ITS ---
PROCEDURE: XR CHEST 1V INDICATIONS: elevated bnp TECHNIQUE: One view of the chest was acquired. COMPARISON: [facility], CR, XR CHEST 1V, 03/18/2023, 13:40. FINDINGS: Surgical changes and devices: None. Lungs and pleura: Infiltrates in the lower lung zones bilaterally, right greater than left, consistent with pneumonia. No pleural effusions or pneumothorax. Mediastinum: Mediastinal contours appear normal. Heart size is normal. Bones and chest wall: Lower cervical spine fusion. No suspicious bony lesions. Overlying soft tissues appear unremarkable. IMPRESSION: Bilateral pneumonia. No significant discrepancy with the hourly shift radiology preliminary report. Dictated by: Darby Infante M.D. on 04/15/2023 at 8:25 Approved by: Darby Infante M.D. on 04/15/2023 at 8:26
[2023-04-15] MEDS: PANTOPRAZOLE 40 MG VIAL IV (03:26)
[2023-04-15] MEDS: diazePAM 10 MG/2 ML SYRINGE 5 MG IV (03:30)
[2023-04-15] MEDS: FUROSEMIDE 40 MG/4 ML VIAL IV (03:36)
[2023-04-15 03:45] LABS: Appearance Urine UA CLEAR; Bilirubin Urine UA NEGATIVE (NEGATIVE); Color Urine UA YELLOW; Glucose Urine UA NEGATIVE (Negative); Ketones Urine UA NEGATIVE (NEGATIVE); Leukocyte Esterase Urine UA NEGATIVE (NEGATIVE); Nitrite Urine UA NEGATIVE (Negative); Occult Blood Urine UA 3+ (Negative); Protein Urine UA 2+ (Negative); Specific Gravity Urine UA >=1.030 (1.000-1.035); Urobilinogen Urine UA 0.2 E.U./dL (0.2)
[2023-04-15 03:50] LABS: Bacteria Urine Occasional (0-1); Culture Indicated Urine Cult Not Indicated; RBC Urine None Seen (0-5/HPF); Squamous Epithelial Cell Urine 0-1 /HPF (0-5/HPF); WBC Urine 0-1/HPF (0-5/HPF)
--- NOTE | 2023-04-15 04:15 | DI.CT.S_ITS ---
PROCEDURE: CT ABDOMEN PELVIS W CON INDICATIONS: persistent abdominal pain TECHNIQUE: After the administration of intravenous contrast, axial sections acquired from the lung bases to the pubic symphysis. Coronal and sagittal reformats were performed. For radiation dose reduction, the following was used: automated exposure control, adjustment of mA and/or kV according to patient size. COMPARISON: CT, CT KIDNEY URETER BLADDER (KUB), 10/16/2022, 15:44. [facility], CT, CT ABDOMEN PELVIS WITH CONTRAST, 11/10/2020, 21:21. [facility], CT, CT ABDOMEN PELVIS W CON, 10/21/2020, 8:23. FINDINGS: Image quality: Diagnostic. Lower Chest: Right middle lobe and both lower lobe infiltrate consistent with pneumonia. Heart size is normal. There is a [id number] pericardial effusion. Small left pleural effusion and trace right pleural effusion. ABDOMEN: Liver: No solid mass. Liver demonstrates nodular contour suggesting cirrhosis. Gallbladder: There are gallstones. Biliary ducts: No biliary dilation. Pancreas: Atrophic pancreas with punctate calcifications consistent with chronic pancreatitis. Spleen: Mildly enlarged measuring 13.3 cm in length. Adrenal Glands: No adrenal nodules. Kidneys and Ureters: No hydronephrosis. No solid mass. No complex renal cystic lesion which requires follow up. Stomach and Bowel: Normal small bowel and colonic caliber, without significant wall thickening. There is a large amount of stool in colon. Peritoneum: No abnormal intraperitoneal fluid. No free air. Ventral Wall: No hernia. Abdominal Nodes: No retroperitoneal or mesenteric adenopathy by size criteria. Vessels: Aorta and inferior vena cava are normal in size. PELVIS: Pelvic Organs: Unremarkable. Bladder: Bladder is distended. No bladder stones. Pelvic Nodes: No enlarged lymph nodes. Miscellaneous: No inguinal hernias are seen. Bones: No aggressive osseous abnormality. Old L4 and L5 compression fracture and posterior fusion. IMPRESSION: 1. Cholelithiasis. No CT findings to suggest acute cholecystitis. 2. Nodular contour of liver suggesting cirrhosis. 3. Splenomegaly. The finding may be secondary to portal hypertension. 4. Chronic pancreatitis. 5 Right middle lobe pneumonia and mild bilateral lower lobe pneumonia. Recommend imaging follow-up to resolution. 6. Small left pleural effusion and trace right pleural effusion. 7. Cflmn-[id number]-wswemfmu pericardial effusion. 8. A large amount of stool in colon. No significant discrepancy with the jig mill operator radiology preliminary report. Dictated by: Darby Infante M.D. on 04/15/2023 at 7:42 Approved by: Darby Infante M.D. on 04/15/2023 at 9:58
[2023-04-15] MEDS: HYDRALAZINE 20 MG/ML VIAL IV (04:19)
[2023-04-15] MEDS: HYDROMORPHONE 0.5 MG INJ IV ×2 (04:53→08:53)
[2023-04-15] MEDS: PIPERACILLIN/TAZO 4.5 GM in SODIUM CHLORIDE 0.9% 100 ML IV (05:01)
[2023-04-15 05:15] LABS: Lactate (Lactic Acid) 1.2 mmol/L (0.7-2.1)
--- NOTE | 2023-04-15 06:29 | DI.US.S_ITS ---
PROCEDURE: US ABDOMEN LIMITED INDICATIONS: ? acute cholecystitis TECHNIQUE: Real-time scanning was performed of the abdominal and retroperitoneal organs, with image documentation. COMPARISON: [facility], , US ABDOMEN LIMITED, 10/21/2020, 9:15. FINDINGS: Liver: Liver is normal in size and homogeneous in echotexture. Gallbladder: Gallbladder sludge and small gallstones are present. Nonmobile stone is seen at the gallbladder fundus. Gallbladder wall measures 2.7 mm, which is within normal limits. No pericholecystic fluid collection or sonographic Sidhu sign. Biliary ducts: Intrahepatic bile ducts are non-dilated. Extrahepatic bile duct caliber measures 6.7 mm. Normal is 6-7 mm or less in diameter, or 10 mm or less post-cholecystectomy. Pancreas: Visualized portions of the pancreas are sonographically normal. Miscellaneous: No free abdominal fluid. IMPRESSION: 1. Cholelithiasis. No ultrasound findings to suggest acute cholecystitis. If clinical suspicion for acute cholecystitis persists, consider HIDA scan. 2. Common bile duct is at upper limit of normal in caliber. No significant discrepancy with the tiltrotor crew chief radiology preliminary report. Dictated by: Darby Infante M.D. on 04/15/2023 at 8:33 Approved by: Darby Infante M.D. on 04/15/2023 at 8:36
[2023-04-15] MEDS: BISACODYL 5 MG TABLET 10 MG PO (06:57)
[2023-04-15 08:22] LABS: Adenovirus Not Detected (Not Detect); B. parapertussis Not Detected (Not Detecte); Bordetella pertussis Not Detected (Not Detect); Chlamydophila pneumoniae Not Detected (Not Detect); Coronavirus 229E Not Detected (Not Detect); Coronavirus HKU1 Not Detected (Not Detect); Coronavirus NL 63 Not Detected (Not Detect); Coronavirus OC43 Not Detected (Not Detect); Human Metapneumovirus Not Detected (Not Detect); Human Rhinovirus/Enterovirus Not Detected (Not Detect); Influenza A Not Detected (Not Detect); Influenza B Not Detected (Not Detect); Mycoplasma pneumoniae Not Detected (Not Detect); Parainfluenza Virus 1 Not Detected (Not Detect); Parainfluenza Virus 2 Not Detected (Not Detect); Parainfluenza Virus 3 Not Detected (Not Detect); Parainfluenza Virus 4 Not Detected (Not Detect); Respiratory Syncytial Virus Not Detected (Not Detect); SARS- CoV-2 Not Detected (Not Detecte)
--- NOTE | 2023-04-15 08:24 | PM.CN ---
History of Present Illness Consult details Date Patient Seen: 04/15/23 Time Patient Seen: 08:00 Chief complaint: hypoglycemia Reason for consult: abdominal pain Narrative: Patient is a 47-year-old male with history of type 1 diabetes with neuropathy, CML on Gleevec, chronic nausea and abdominal pain due to Gleevec, chronic low back pain, alcohol use disorder in remission who presented to the emergency room with mild dyspnea on exertion, fatigue, and continued abdominal pain / nausea. He was initially mildly hypoglycemic and resolved with oral intake. Patient has not been taking his torsemide recently, reports he has been on and off of this. He is feeling improved this morning, mainly asking for pain medications. He was able to tolerate a diet. He does not feel particularly short of breath. His abdominal pain is no worse than it has been now. CT scan showed PCCF and gallstones, ultrasound of his RUQ was not likley cholecystitis. He had bilateral infiltrates vs fluid on CT, and a pericardial effusion. Medicine was asked to evaluate for admission. In review, his vitals were stable, mildly hypertensive, without fever. He was not hypoxic and appeared comfortable when I saw him. ProBNP was 5290. Meds Home Medications and Allergies Home Medications Medication Instructions Recorded Confirmed Type BD U/F Hilda Pen Needle [id number] #100 ea 06/13/18 10/12/22 Rx lorazepam 1 mg tablet 1 mg PO TID PRN nauseas 03/09/22 10/17/22 History dasatinib 100 mg tablet (Sprycel) 100 mg PO DAILY 05/11/22 12/27/22 History insulin lispro 100 unit/mL 1 - 12 unit (0.01 - 0.12 mL) 05/11/22 10/12/22 Rx subcutaneous pen (Humalog KwikPen SUBCUT [facility] #1 ea (U-100) Insulin) lactulose 10 gram/15 mL oral 15 ml PO DAILY #473 mL 05/11/22 10/17/22 Rx solution (Constulose) glucagon HCl 1 mg solution for 1 mg SUBCUT Q20M PRN hypoglycemia 10/23/22 Rx injection (Glucagon (HCl) #2 ea Emergency Kit) Lantus Solostar U-100 Insulin 100 20 unit (0.2 mL) SUBCUT DAILY #15 11/03/22 Rx unit/mL (3 mL) subcutaneous pen mL (insulin glargine) blood-glucose sensor (T[employer] Vision G6 #3 ea 11/06/22 Rx Sensor device) blood-glucose transmitter (Dexcom #1 ea 11/06/22 Rx G6 Transmitter device) pregabalin 25 mg capsule 25 mg PO TID #90 caps 01/19/23 Rx azithromycin 250 mg tablet See Rx Instructions PO .COMPLEX #6 04/15/23 Rx tabs torsemide 20 mg tablet 20 mg PO DAILY #30 tabs 04/15/23 Rx Allergies Allergy/AdvReac Type Severity Reaction Status Date / Time adhesive Allergy Intermediate rash, skin Verified 03/18/23 13:21 tear latex [LATEX] Allergy Unknown rash, skin Verified 03/18/23 13:21 tear Review of Systems Review of Systems Narrative: All other systems reviewed with the patient and are negative unless otherwise stated. Exam Vital Signs (past 8 hours): - 04/15/23 02:03 04/15/23 02:08 04/15/23 02:30 Temperature 99.9 F H Pulse Rate 86 81 83 Respiratory Rate 20 27 H 24 Blood Pressure 193/100 H Pulse Oximetry 97 95 95 Oxygen Delivery Method Room Air Room Air Room Air 04/15/23 03:00 04/15/23 03:30 04/15/23 04:00 Temperature Pulse Rate 80 82 84 Respiratory Rate 27 H 33 H 30 H Blood Pressure Pulse Oximetry 96 96 96 Oxygen Delivery Method Room Air Room Air Room Air 04/15/23 04:12 04/15/23 04:12 04/15/23 04:19 Temperature Pulse Rate 72 63 Respiratory Rate 22 Blood Pressure 222/101 H 222/101 H Pulse Oximetry 97 Oxygen Delivery Method Room Air 04/15/23 04:30 04/15/23 04:30 04/15/23 04:38 Temperature Pulse Rate 90 Respiratory Rate 26 H Blood Pressure 189/110 H 158/88 H Pulse Oximetry 97 Oxygen Delivery Method Room Air 04/15/23 04:38 04/15/23 04:53 04/15/23 05:13 Temperature 98.7 F Pulse Rate 84 96 H Respiratory Rate 22 Blood Pressure Pulse Oximetry 96 Oxygen Delivery Method Room Air 04/15/23 05:30 04/15/23 05:36 04/15/23 05:36 Temperature Pulse Rate 92 H 85 Respiratory Rate 28 H 21 Blood Pressure 183/94 H Pulse Oximetry 96 96 Oxygen Delivery Method Room Air Room Air 04/15/23 06:00 04/15/23 06:00 04/15/23 06:30 Temperature Pulse Rate 92 H Respiratory Rate 23 Blood Pressure 186/91 H 163/89 H Pulse Oximetry 95 Oxygen Delivery Method 04/15/23 06:30 04/15/23 07:00 04/15/23 07:00 Temperature Pulse Rate 84 85 Respiratory Rate 46 H 27 H Blood Pressure 166/93 H Pulse Oximetry 95 95 Oxygen Delivery Method Room Air Oxygen Delivery Method Room Air Narrative Exam Narrative: General:? Patient is chronically ill appearing, but in no distress at this time. HEENT:? Normocephalic, atraumatic, extraocular muscles intact, oral pharynx is clear and mucous membranes are moist. Neck: supple and symmetric, trachea is midline, no cervical adenopathy. Negative for JVD Chest:? Normal AP diameter and contour without kyphoscoliosis, no tachypnea, equal chest rise bilaterally. Lungs:? CTA b/l no wheezing rhonchi or rales. Cardio:?RRR no m/r/g. Abdomen: S NT ND. Musculoskeletal:? Muscle strength and tone are equal within normal limits, no deformity. Extremities: No edema or joint effusions. No cyanosis or clubbing. Skin:? Pale,? Warm to touch,dry and intact without rashes, ulcerations or petechiae.? Neuro:? Alert and orientated x3,? sensation to touch intact in all extremities, no gross deficits noted of cranial nerves. Psych:? Patient has a well-kept appearance, appropriate affect, mental status attitude thought context and judgment are appropriate for age. Objective Labs 04/15/23 02:35 04/15/23 02:35 Labs: Laboratory Results - last 24 hr 04/15/23 04/15/23 04/15/23 02:35 03:40 04:52 WBC 11.0 RBC 2.69 L Hgb 8.8 L Hct 25.3 L MCV 94.1 MCH 32.7 MCHC 34.7 RDW 14.3 Plt Count 89 L Neut % (Auto) 87.2 H Lymph % (Auto) 3.4 L [place] % (Auto) 8.6 Eos % (Auto) 0.4 L Baso % (Auto) 0.4 Neut # (Auto) 9600 H Lymph # (Auto) 400 L [place] # (Auto) 900 Eos # (Auto) 0 Baso # (Auto) 0 Sodium 131 L Potassium 4.2 Chloride 97 L Carbon Dioxide 26 BUN 29 H Creatinine 0.94 Estimated GFR > 60 BUN/Creatinine Ratio 30.9 H Glucose 67 L D Lactate 1.2 Calcium 8.9 Magnesium 1.7 Total Bilirubin 0.6 AST TNP ALT 16 Alkaline Phosphatase 95 Troponin I 0.033 NT-Pro-B Natriuret Pep 5290 H Total Protein 7.6 Albumin 3.8 Globulin 3.8 Albumin/Globulin Ratio 1.0 Procalcitonin 0.19 Urine Color Yellow Urine Appearance Clear Urine pH 5.0 Ur Specific [place] >=1.030 H Urine Protein 2+ H Urine Glucose (UA) Negative Urine Ketones Negative Urine Occult Blood 3+ H Urine Nitrate Negative Urine Bilirubin Negative Urine Urobilinogen 0.2 Ur Leukocyte Esterase Negative Urine RBC None seen Urine WBC 0-1/hpf Ur Squamous Epith Cells 0-1 /hpf Urine Bacteria Occasional (0-1) Ur Culture Indicated? Cult not indicated PFSH Medical History Ataxia Cervical radiculopathy Cervicalgia Cancer of blood vessel Pancytopenia Chronic, continuous use of opioids Central cord syndrome at C3 level of cervical spinal cord Thrombocytopenia Alcoholism Insulin dependent diabetes mellitus CML (chronic myelocytic leukemia) Surgical History Status post appendectomy Family History Grandfather Diabetes mellitus Mother Cancer History of heart disease Father Hyperlipidemia History of heart disease Social History household members: none Tobacco & Substance Use Smoking Status: Former smoker Tobacco: How many years used: 10 Smokeless tobacco user: chewing tobacco (current ) quit status: considering quitting alcohol intake: former (Quit 2019 ) substance use type: former substance user, marijuana and opiates Assessment & Plan Assessment & Plan narrative: 1. Mild acute on chronic congestive heart failure, unknown EF. - recommend resumption of home torsemide 50 mg daily (based on previous medication history from outside prescriptions in our EMR). - even with pericardial effusion this is likely due to chronic volume overload. With stable vitals and no chest pain or hypoxia, risk of acute pericardial effusion or tamponade is exceedingly low. He has documented tachypnea but breathing appeared comfortable on my examination at bedside today. He is not hypoxic and has no lower extremity edema. - outpatient echocardiogram with PCP 2. Possible pneumonia - - with normal procalcitonin, signs more consistent with volume overload, think infection is less likely, but it would not be unreasonable to discharge home with a 5 day course of augmentin for possible PNA or biliary pathology. 3. Chronic abdominal pain - he has chronic pain suspected from Gleevac based on prior notes. Based on CT he may have chronic pancreatitis as well with multiple calcifications. Consider outpatient general surgery consultation given gallstones, though no signs of acute biliary infection currently. He does not relate any recently new symptoms or changes in severity to me on this visit. - continue home pain medications, may need increase in methadone as an outpatient. 4. Remote history of alcohol use - no longer drinking alcohol per patient. 5. Insulin dependent diabetes - continue outpatient management with primary care provider. No acute changes recommended as hypoglycemia has improved. Dispo: Patient is safe for discharge home, he is agreeable with this plan. Recommend above resumption torsemide with or without antibiotics as there may be a pneumonia but this is thought to be less likely based on labs and presentation. Code: Full Disussed with the ER provider to formulate the above assessment and plan. I have utilized all available immediate resources to obtain, update, or review the patient's current medications.
[2023-04-16 14:53] LABS: Aspartate Aminotransferase 30 IU/L (17-59)
== END 2023-04-15 09:01 | disposition home or self-care (01) ==
PROVIDERS: Emergency Medicine; Emergency Provider Emergency Medicine; PCP Family Medicine
DX: E10.649 Type 1 diabetes mellitus with hypoglycemia without coma (principal); J18.9 Pneumonia, unspecified organism; K59.00 Constipation, unspecified; I50.9 Heart failure, unspecified; Z87.891 Personal history of nicotine dependence; I51.7 Cardiomegaly
CPT/HCPCS: 36415; 71045; 74177; 76705; 80053; 81001; 82962; 83605; 83735; 83880; 84145; 84484; 85025; 87040; 87633; 93005; 96365; 96375; 99284; 99285; C9113; J0360; J1170; J1940; J2405; J2543; J3360; Q9967

== ENCOUNTER 2023-05-01 12:12 | Observation (INO) | payer OTHER, MEDICAID, SELFPAY ==
[2022-12-27 00:30] VITALS: BMI 19.8
[2023-05-01] VITALS (30 sets, daily range): BP systolic 116–146; BP diastolic 73–99; PULSE 80–100; RESP 15–25; TEMP 36.4–37.1; O2SAT 97–100; BMI 19.0
--- NOTE | 2023-05-01 12:16 | DI.RAD.S_ITS ---
PROCEDURE: XR CHEST 1V INDICATIONS: WEAKNESS/MULTIPLE FALLS/ETOH TECHNIQUE: One view of the chest was acquired. COMPARISON: [facility], CR, XR CHEST 1V, 04/15/2023, 3:29. FINDINGS: Surgical changes and devices: None. Lungs and pleura: Lungs are clear. No pleural effusions or pneumothorax. Mediastinum: Mediastinal contours appear normal. Heart size is normal. Bones and chest wall: No suspicious bony lesions. Overlying soft tissues appear unremarkable. IMPRESSION: No acute cardiopulmonary abnormality is seen. Approved by: Que Aguilera M.D. on 05/01/2023 at 13:01
--- NOTE | 2023-05-01 12:16 | DI.CT.S_ITS ---
PROCEDURE: CT HEAD/BRAIN WO CON INDICATIONS: MULTIPLE FALLS/ETOH TECHNIQUE: Noncontrast 4.5 mm thick angled axial sections acquired from the foramen magnum to the vertex, with coronal and sagittal reformats. For radiation dose reduction, the following was used: automated exposure control, adjustment of mA and/or kV according to patient size. COMPARISON: [facility], CT, CT HEAD/BRAIN WO CON, 08/11/2021, 13:48. FINDINGS: Image quality: Diagnostic. CSF spaces: Basal cisterns are patent. No extra-axial fluid collections. Ventricles are normal in size and shape. Brain: No midline shift. No intracranial masses or hemorrhage. Patino-white matter interface is normal. Atrophy and chronic ischemic change without intracranial hemorrhage or mass effect Skull and face: Calvarium and visualized facial bones are intact, without suspicious lesions. Sinuses: Visualized sinuses and mastoids are clear. IMPRESSION: No acute intracranial pathology. Approved by: Que Aguilera M.D. on 05/01/2023 at 12:49
--- NOTE | 2023-05-01 12:17 | ED.GENADULT ---
HPI - General Adult General Chief complaint: Fall Stated complaint: Fall with neck pain Time Seen by Provider: 05/01/23 12:15 History of Present Illness HPI narrative: 47-year-old male with history of CML on Gleevec, insulin-dependent diabetes, alcohol use disorder, congestive heart failure presents by EMS from home for generalized weakness and several falls. Patient fell earlier this morning and was apparently wedged between his bedside table and his bed. His family called 911 but patient refused transport. Patient apparently fell again and this time consented to medical evaluation when EMS was called. Patient has history of alcohol abuse and EMS reported multiple empty vodka bottles around the patient's home. On arrival patient does appear to be intoxicated, slurring his speech. Related Data Home Medications Medication Instructions Recorded Confirmed lorazepam 1 mg tablet 1 mg PO TID PRN nauseas 03/09/22 10/17/22 dasatinib 100 mg tablet (Sprycel) 100 mg PO DAILY 05/11/22 12/27/22 Previous Rx's Medication Instructions Recorded BD U/F Hilda Pen Needle [id number] #100 ea 06/13/18 insulin lispro 100 unit/mL 1 - 12 unit (0.01 - 0.12 mL) 05/11/22 subcutaneous pen (Humalog KwikPen SUBCUT TIDCC #1 ea (U-100) Insulin) lactulose 10 gram/15 mL oral 15 ml PO DAILY #473 mL 05/11/22 solution (Constulose) glucagon HCl 1 mg solution for 1 mg SUBCUT Q20M PRN hypoglycemia 10/23/22 injection (Glucagon (HCl) #2 ea Emergency Kit) Lantus Solostar U-100 Insulin 100 20 unit (0.2 mL) SUBCUT DAILY #15 11/03/22 unit/mL (3 mL) subcutaneous pen mL (insulin glargine) blood-glucose sensor (Dexcom G6 #3 ea 11/06/22 Sensor device) blood-glucose transmitter (Dexcom #1 ea 11/06/22 G6 Transmitter device) pregabalin 25 mg capsule 25 mg PO TID #90 caps 01/19/23 azithromycin 250 mg tablet See Rx Instructions PO .COMPLEX #6 04/15/23 tabs torsemide 20 mg tablet 20 mg PO DAILY #30 tabs 04/15/23 Allergies Allergy/AdvReac Type Severity Reaction Status Date / Time adhesive Allergy Intermediate rash, skin Verified 03/18/23 13:21 tear latex [LATEX] Allergy Unknown rash, skin Verified 03/18/23 13:21 tear Review of Systems Review of Systems Narrative: Unable to obtain due to intoxication Patient History Medical History Ataxia Cervical radiculopathy Cervicalgia Cancer of blood vessel Pancytopenia Chronic, continuous use of opioids Central cord syndrome at C3 level of cervical spinal cord Thrombocytopenia Alcoholism Insulin dependent diabetes mellitus CML (chronic myelocytic leukemia) Surgical History Status post appendectomy Family History Grandfather Diabetes mellitus Mother Cancer History of heart disease Father Hyperlipidemia History of heart disease Social History household members: none Smoking Status: Former smoker Tobacco: How many years used: 10 Smokeless tobacco user: chewing tobacco (current ) quit status: considering quitting alcohol intake: former (Quit 2019 ) substance use type: former substance user, marijuana and opiates Smoking Status: Former smoker tobacco type: cigarettes and smokeless tobacco alcohol intake frequency: 0-2 drinks per day Alcohol type: beer Substance Use Type: marijuana Exam Initial Vital Signs Initial Vital Signs: Vital Signs Pulse Rate 95 H 05/01/23 12:18 Pulse Oximetry 98 05/01/23 12:18 Const: Somnolent, lethargic, appears older than stated age, underweight Eyes: PERRL, EOMI, conjunctiva normal Cardiac: regular rate, regular rhythm RESP: unlabored, clear bilaterally, no wheezing GI: Atraumatic, soft, nontender, nondistended MSK: Atraumatic, full range of motion, pulses equal Skin: Warm, Dry, pale, intact, poor skin turgor Neuro: Rouses to voice, moves all extremities Course Orders Ordered: ED Orders 05/01/23 12:16 CT head/brain wo con Stat Chest [XR chest 1V] Stat 05/01/23 12:19 CT cervical spine wo con Stat 05/01/23 12:45 CBC Auto Diff [Complete Blood Count AUTO DIFF] Stat CMP [Comprehensive Metabolic Panel] Stat Ethanol (ETOH) Stat Troponin & CK Cardiac Panel Stat 05/01/23 13:00 Magnesium Stat 05/01/23 13:06 EKG-12 Lead Stat 05/01/23 14:45 Trop I [Troponin I] Stat 05/01/23 15:50 CT angio chest PE protocol Stat 05/01/23 17:47 Respiratory Panel (Film Array) Stat 05/01/23 17:50 Ammonia (NH3) Stat Lactate (Lactic Acid) Stat Trop I [Troponin I] Stat UA Complete [Urinalysis and Microscopic] Stat Urine Drug Screen, Rapid Stat Discontinued Medications Folic Acid (Folic Acid 1 Mg Tablet) 1 mg PO NOW ONE Stop: 05/01/23 12:17 Last Admin: 05/01/23 12:42 Dose: 1 mg Documented By: RB Sodium Chloride (Normal Saline 0.9%) 1,000 mls @ 1,000 mls/hr IV BOLUS ONE Stop: 05/01/23 13:15 Last Infusion: 05/01/23 14:24 Dose: Infused Documented By: Infusion: 05/01/23 13:01 Dose: 1,000 mls/hr Documented By: Infusion: 05/01/23 12:43 Dose: 0 mls/hr Documented By: Admin: 05/01/23 12:42 Dose: 1,000 mls/hr Documented By: RB Thiamine HCl 100 mg/ Sodium (Chloride) 101 mls @ 404 mls/hr IV NOW ONE Stop: 05/01/23 12:17 Last Infusion: 05/01/23 13:33 Dose: Infused Documented By: Infusion: 05/01/23 13:01 Dose: 404 mls/hr Documented By: Infusion: 05/01/23 12:43 Dose: 0 mls/hr Documented By: Admin: 05/01/23 12:42 Dose: 404 mls/hr Documented By: RB Potassium Chloride (Potassium Chloride 20 Meq/15 Ml Udc) 40 meq PO NOW ONE Stop: 05/01/23 15:58 Last Admin: 05/01/23 16:13 Dose: 40 meq Documented By: RB Vital Signs Vital signs: Vital Signs - 8 hr 05/01/23 12:18 05/01/23 12:20 05/01/23 12:20 Temperature Pulse Rate 95 H 87 Respiratory Rate 20 Blood Pressure 123/82 Pulse Oximetry 98 99 Oxygen Delivery Method 05/01/23 12:24 05/01/23 12:30 05/01/23 12:30 Temperature 98.7 F Pulse Rate 93 H 90 Respiratory Rate 18 21 Blood Pressure 123/82 126/83 Pulse Oximetry 97 97 Oxygen Delivery Method Room Air 05/01/23 13:00 05/01/23 13:00 05/01/23 13:23 Temperature Pulse Rate 80 Respiratory Rate 23 Blood Pressure 129/81 122/84 Pulse Oximetry 99 Oxygen Delivery Method 05/01/23 13:23 05/01/23 13:30 05/01/23 13:30 Temperature Pulse Rate 83 80 Respiratory Rate 17 18 Blood Pressure 122/80 Pulse Oximetry 99 98 Oxygen Delivery Method 05/01/23 13:45 05/01/23 13:45 05/01/23 14:00 Temperature Pulse Rate 82 Respiratory Rate 20 Blood Pressure 127/79 139/81 Pulse Oximetry 98 Oxygen Delivery Method 05/01/23 14:00 05/01/23 14:15 05/01/23 14:15 Temperature Pulse Rate 94 H 87 Respiratory Rate 21 22 Blood Pressure 139/84 Pulse Oximetry 100 98 Oxygen Delivery Method 05/01/23 14:30 05/01/23 14:30 05/01/23 14:45 Temperature Pulse Rate 82 Respiratory Rate 25 H Blood Pressure 120/78 136/82 Pulse Oximetry 97 Oxygen Delivery Method 05/01/23 14:45 05/01/23 15:00 05/01/23 15:00 Temperature Pulse Rate 86 80 Respiratory Rate 20 21 Blood Pressure 137/85 Pulse Oximetry 99 99 Oxygen Delivery Method 05/01/23 15:15 05/01/23 15:15 05/01/23 15:30 Temperature Pulse Rate 80 Respiratory Rate 20 Blood Pressure 130/82 133/86 Pulse Oximetry 99 Oxygen Delivery Method 05/01/23 15:30 05/01/23 15:45 05/01/23 15:45 Temperature Pulse Rate 82 81 Respiratory Rate 21 Blood Pressure 122/77 Pulse Oximetry 99 97 Oxygen Delivery Method 05/01/23 16:12 05/01/23 16:30 05/01/23 17:00 Temperature Pulse Rate 83 81 83 Respiratory Rate 15 25 H 21 Blood Pressure Pulse Oximetry 98 98 Oxygen Delivery Method 05/01/23 17:30 05/01/23 18:00 Temperature Pulse Rate 80 97 H Respiratory Rate 22 23 Blood Pressure Pulse Oximetry 98 98 Oxygen Delivery Method Medical Decision Making Lab Data 05/01/23 12:45 05/01/23 12:45 Labs: Lab Results 05/01/23 05/01/23 05/01/23 Range/Units 12:45 13:00 14:45 WBC 6.3 (4.5-11.0) X10^3/uL RBC 3.19 L (4.5-5.9) X10^6/uL Hgb 10.5 L (13.5-17.5) g/dL Hct 30.8 L (41-53) % MCV 96.5 (80-100) fL MCH 32.8 (26-34) PG MCHC 34.0 (30-36) % RDW 14.9 H (11.6-14.8) % Plt Count 218 (150-400) X10^3/uL Neut % (Auto) 74.4 (50-75) % Lymph % (Auto) 21.4 L (25-40) % [place] % (Auto) 3.1 (3-14) % Eos % (Auto) 0.6 L (2-4) % Baso % (Auto) 0.5 (0-2) % Neut # (Auto) 4700 (7554-1756) /uL Lymph # (Auto) 1400 (9210-7070) /uL [place] # (Auto) 200 (0-900) /uL Eos # (Auto) 0 (0-450) /uL Baso # (Auto) 0 (0-100) /uL Sodium 146 H (137-145) mmol/L Potassium 3.2 L (3.4-5.1) mmol/L Chloride 117 H (98-107) mmol/L Carbon Dioxide 14 L (22-32) mmol/L BUN 22 H (9-20) mg/dL Creatinine 1.59 H (0.66-1.25) mg/dL Estimated GFR 54 L (>60) mL/min BUN/Creatinine Ratio 13.8 (6-22) Glucose 289 H (70-100) mg/dL Lactate (0.7-2.1) mmol/L Calcium 8.1 L (8.4-10.2) mg/dL Magnesium 2.2 (1.6-2.3) mg/dL Total Bilirubin 0.4 (0.2-1.3) mg/dL AST 46 (17-59) IU/L ALT 33 (<50) IU/L Alkaline Phosphatase 107 (38-126) U/L Ammonia (9-30) umol/L Total Creatine Kinase 92 (55-170) U/L Troponin I 0.049 H 0.108 H (0.01-0.034) ng/mL Total Protein 7.4 (6.3-8.2) g/dL Albumin 3.7 (3.5-5.0) g/dL Globulin 3.7 (1.7-4.1) g/dL Albumin/Globulin Ratio 1.0 (1.0-2.8) Urine Color Urine Appearance Urine pH (4.5-8.0) Ur Specific [place] (1.000-1.035) Urine Protein (Negative) Urine Glucose (UA) (Negative) g/dL Urine Ketones (NEGATIVE) Urine Occult Blood (Negative) Urine Nitrate (Negative) Urine Bilirubin (NEGATIVE) Urine Urobilinogen (0.2) E.U./dL Ur Leukocyte Esterase (NEGATIVE) U Opiates 300ng/mL cut (Negative) Ur Oxycodone Screen (Negative) Urine Methadone Screen (Negative) Ur Barbiturates Screen (Negative) U Tricyclic Antidepress (Negative) Ur Phencyclidine Scrn (Negative) Ur Amphetamines Screen (Negative) U Methamphetamines Scrn (Negative) Ur MDMA Scrn (Ecstasy) (Negative) U Benzodiazepines Scrn (Negative) Urine Cocaine Screen (Negative) U Marijuana (THC) Screen (Negative) Urine Specific [place] (Normal) Ethyl Alcohol 405 H* ( - 10) mg/dL Ur Creatinine (Normal) 05/01/23 05/01/23 Range/Units 17:50 17:50 WBC (4.5-11.0) X10^3/uL RBC (4.5-5.9) X10^6/uL Hgb (13.5-17.5) g/dL Hct (41-53) % MCV (80-100) fL MCH (26-34) PG MCHC (30-36) % RDW (11.6-14.8) % Plt Count (150-400) X10^3/uL Neut % (Auto) (50-75) % Lymph % (Auto) (25-40) % [place] % (Auto) (3-14) % Eos % (Auto) (2-4) % Baso % (Auto) (0-2) % Neut # (Auto) (6507-8378) /uL Lymph # (Auto) (0377-8359) /uL [place] # (Auto) (0-900) /uL Eos # (Auto) (0-450) /uL Baso # (Auto) (0-100) /uL Sodium (137-145) mmol/L Potassium (3.4-5.1) mmol/L Chloride (98-107) mmol/L Carbon Dioxide (22-32) mmol/L BUN (9-20) mg/dL Creatinine (0.66-1.25) mg/dL Estimated GFR (>60) mL/min BUN/Creatinine Ratio (6-22) Glucose (70-100) mg/dL Lactate 2.0 (0.7-2.1) mmol/L Calcium (8.4-10.2) mg/dL Magnesium (1.6-2.3) mg/dL Total Bilirubin (0.2-1.3) mg/dL AST (17-59) IU/L ALT (<50) IU/L Alkaline Phosphatase (38-126) U/L Ammonia 28 (9-30) umol/L Total Creatine Kinase (55-170) U/L Troponin I (0.01-0.034) ng/mL Total Protein (6.3-8.2) g/dL Albumin (3.5-5.0) g/dL Globulin (1.7-4.1) g/dL Albumin/Globulin Ratio (1.0-2.8) Urine Color Yellow Urine Appearance Clear Urine pH 5.5 Normal (4.5-8.0) Ur Specific [place] 1.015 (1.000-1.035) Urine Protein 2+ H (Negative) Urine Glucose (UA) Negative (Negative) g/dL Urine Ketones Negative (NEGATIVE) Urine Occult Blood 1+ H (Negative) Urine Nitrate Negative (Negative) Urine Bilirubin Negative (NEGATIVE) Urine Urobilinogen 0.2 (0.2) E.U./dL Ur Leukocyte Esterase Negative (NEGATIVE) U Opiates 300ng/mL cut Negative (Negative) Ur Oxycodone Screen Negative (Negative) Urine Methadone Screen Negative (Negative) Ur Barbiturates Screen Negative (Negative) U Tricyclic Antidepress Negative (Negative) Ur Phencyclidine Scrn Negative (Negative) Ur Amphetamines Screen Negative (Negative) U Methamphetamines Scrn Negative (Negative) Ur MDMA Scrn (Ecstasy) Negative (Negative) U Benzodiazepines Scrn Negative (Negative) Urine Cocaine Screen Negative (Negative) U Marijuana (THC) Screen Negative (Negative) Urine Specific [place] Normal (Normal) Ethyl Alcohol ( - 10) mg/dL Ur Creatinine Normal (Normal) MDM Narrative Medical decision making narrative: Patient presenting for generalized weakness and altered mental status after 2 falls earlier today. Patient endorsed heavy alcohol use to medics and they state that they were many empty vodka bottles around the patient's apartment. Ordered IV fluids, thiamine, folic acid. Alcohol level is 400. Glucose is elevated, patient has chronic kidney disease that is roughly similar to previous. Patient has received IV fluids, given p.o. potassium. Remains lethargic despite several hours of observation. Troponin is mildly elevated, EKG is normal sinus rhythm, it is unchanged from previous 2 weeks ago. We will order 2 hour repeat. 2 hour troponin is increased from initial. Patient continues to be lethargic, slurring his words, but does state no when asked if he is in pain. CT of head, C-spine, chest x-ray unremarkable. With no real cause of elevated troponin we will order CT angio. CT angio shows possible tree-in-bud opacities that could be infectious or inflammatory. Patient has no elevated white blood cell count, no left shift, oxygen is normal, this is felt to be unlikely to be infectious at this time and we will not give antibiotics. Patient continues to be altered, expect that he would be much more awake after this many hours with peer alcohol intoxication, however UDS is negative for any other substances. With ongoing metabolic encephalopathy plan to admit patient for observation. Discharge Plan Departure Patient Disposition: Admitted as Observation Clinical Impression: Acute metabolic encephalopathy, Alcohol intoxication Admit Date/Time: 05/01/23 18:38 Admit Provider: Erik Pastor
--- NOTE | 2023-05-01 12:19 | DI.CT.S_ITS ---
PROCEDURE: CT CERVICAL SPINE WO CON INDICATIONS: MULTIPLE FALLS/ETOH TECHNIQUE: Noncontrast 3 mm thick sections acquired from the skull base to the T4 level. Sagittal and coronal reformats were then constructed. For radiation dose reduction, the following was used: automated exposure control, adjustment of mA and/or kV according to patient size. COMPARISON: [facility], CT, CT CERVICAL SPINE WO CON, 08/11/2021, 13:48. FINDINGS: Image quality: Excellent. Bones: Cervical interbody fusion supported by anterior plate and screw hardware in the lower cervical spine and posterior rasheed and screw instrumentation in upper cervical spine. Decompression laminectomies noted at C3 through C5. Craniocervical relationships maintained Soft tissues: Prevertebral soft tissues are normal in thickness. No paravertebral hematomas. No apical pneumothoraces. IMPRESSION: Instrumented discectomy and fusion with mid cervical decompression. No fracture or hardware failure. Approved by: Que Aguilera M.D. on 05/01/2023 at 12:54
[2023-05-01] MEDS: SODIUM CHLORIDE 0.9% 1,000 ML 1000 ML IV (12:42)
[2023-05-01] MEDS: FOLIC ACID 1 MG TABLET PO (12:42)
[2023-05-01] MEDS: THIAMINE 100 MG in SODIUM CHLORIDE 0.9% 100 ML 404 MG IV (12:42)
[2023-05-01 13:08] LABS: Add Manual Diff / Slide Review NO; Basophils Absolute Auto 0 /uL (0-100); Basophils Percent Auto 0.5 % (0-2); Eosinophils Absolute Auto 0 /uL (0-450); Eosinophils Percent Auto 0.6 % (2-4); Hematocrit 30.8 % (41-53); Hemoglobin 10.5 g/dL (13.5-17.5); Lymphocytes Absolute Auto 1400 /uL (1100-4500); Lymphocytes Percent Auto 21.4 % (25-40); Mean Corpuscular Hemoglobin 32.8 PG (26-34); Mean Corpuscular Volume 96.5 fL (80-100); Monocytes Absolute Auto 200 /uL (0-900); Monocytes Percent Auto 3.1 % (3-14); Neutrophils Absolute Auto 4700 /uL (1500-7000); Neutrophils Percent Auto 74.4 % (50-75); Platelet Count 218 X10^3/uL (150-400); Red Blood Cell Count 3.19 X10^6/uL (4.5-5.9); Red Cell Distribution Width 14.9 % (11.6-14.8); White Blood Cell Count 6.3 X10^3/uL (4.5-11.0)
[2023-05-01 13:11] LABS: Alanine Aminotransferase 33 IU/L (<50); Albumin 3.7 g/dL (3.5-5.0); Alkaline Phosphatase 107 U/L (38-126); Aspartate Aminotransferase 46 IU/L (17-59); BUN Creatinine Ratio 13.8 (6-22); Bilirubin Total 0.4 mg/dL (0.2-1.3); Blood Urea Nitrogen 22 mg/dL (9-20); Calcium 8.1 mg/dL (8.4-10.2); Carbon Dioxide 14 mmol/L (22-32); Chloride 117 mmol/L (98-107); Creatine Kinase 92 U/L (55-170); Estimated Glomerular Filt Rate 54 mL/min (>60); Globulin 3.7 g/dL (1.7-4.1); Glucose 289 mg/dL (70-100); Potassium 3.2 mmol/L (3.4-5.1); Sodium 146 mmol/L (137-145); Total Protein 7.4 g/dL (6.3-8.2)
[2023-05-01 13:18] LABS: HEMOLYSIS < 15 (0-50)
[2023-05-01 13:21] LABS: Troponin I 0.049 ng/mL (0.01-0.034)
[2023-05-01 13:35] LABS: Ethanol (ETOH) 405 mg/dL
[2023-05-01 13:57] LABS: Magnesium 2.2 mg/dL (1.6-2.3)
[2023-05-01 15:18] LABS: Troponin I 0.108 ng/mL (0.01-0.034)
--- NOTE | 2023-05-01 15:50 | DI.CT.S_ITS ---
PROCEDURE: CT ANGIO CHEST PE PROTOCOL INDICATIONS: ELEVATED TROPONIN, ACTIVE CANCER TECHNIQUE: After the administration of intravenous contrast, 2 mm thick sections acquired from the pulmonary apices to the posterior costophrenic angles. MIP reformats of the arterial vasculature were utilized. For radiation dose reduction, the following was used: automated exposure control, adjustment of mA and/or kV according to patient size. COMPARISON: [facility], CT, CT ANGIO CHEST PE PROTOCOL, 11/23/2022, 16:28. FINDINGS: Cardiovascular and Mediastinum: Heart size is normal. No evidence of thoracic aortic aneurysm. Pulmonary vasculature is unremarkable. No hiatal hernia. Thyroid gland unremarkable. Lungs and Pleural Spaces: Bilateral lower lobe tree-in-bud peripheral densities. No pneumothorax Lymph Nodes: No mediastinal, hilar or axillary adenopathy. Musculoskeletal: No evidence of rib fracture. Thoracic spine unremarkable. Chest wall and sternum intact. No lytic or blastic lesions. Upper abdomen: Micronodular scalloping noted in the liver. Spleen is enlarged. IMPRESSION: 1. No evidence of pulmonary embolism, aortic dissection or aneurysm. 2. Bilateral lower lobe tree-in-bud peripheral pattern consistent with community-acquired infectious or inflammatory process Approved by: Que Aguilera M.D. on 05/01/2023 at 15:49
[2023-05-01] MEDS: POTASSIUM CHLORIDE 20 MEQ/15 ML UDC 40 MEQ PO (16:13)
[2023-05-01 17:59] LABS: Urine Volume 10mL (spun)
[2023-05-01 18:01] LABS: Appearance Urine UA CLEAR; Bilirubin Urine UA NEGATIVE (NEGATIVE); Color Urine UA YELLOW; Glucose Urine UA NEGATIVE (Negative); Ketones Urine UA NEGATIVE (NEGATIVE); Leukocyte Esterase Urine UA NEGATIVE (NEGATIVE); Nitrite Urine UA NEGATIVE (Negative); Occult Blood Urine UA 1+ (Negative); Protein Urine UA 2+ (Negative); Specific Gravity Urine UA 1.015 (1.000-1.035); Urobilinogen Urine UA 0.2 E.U./dL (0.2); pH Urine UA 5.5 (4.5-8.0)
[2023-05-01 18:09] LABS: Ammonia (NH3) 28 umol/L (9-30)
[2023-05-01 18:13] LABS: UR Morphine/Opiate cutoff 300 Negative (Negative); Ur Creatinine Normal (Normal); Ur Specific Gravity Normal (Normal); Urine Amphetamines Negative (Negative); Urine Barbiturates Negative (Negative); Urine Benzodiazepines Negative (Negative); Urine Cocaine Negative (Negative); Urine MDMA Negative (Negative); Urine Methadone Negative (Negative); Urine Methamphetamines Negative (Negative); Urine Oxycodone Negative (Negative); Urine Phencyclidine Negative (Negative); Urine Tetrahydrocannabinol Negative (Negative); Urine Tricyclic Antidepressant Negative (Negative); Urine pH Normal (Normal)
[2023-05-01 18:49] LABS: Bacteria Urine None Seen; Culture Indicated Urine Cult Not Indicated; RBC Urine 0-1/HPF (0-5/HPF); Squamous Epithelial Cell Urine 0-1 /HPF (0-5/HPF); WBC Urine None Seen (0-5/HPF)
[2023-05-01 18:59] LABS: Troponin I 0.147 ng/mL (0.01-0.034)
[2023-05-01 19:01] LABS: Adenovirus Not Detected (Not Detect); B. parapertussis Not Detected (Not Detecte); Bordetella pertussis Not Detected (Not Detect); Chlamydophila pneumoniae Not Detected (Not Detect); Coronavirus 229E Not Detected (Not Detect); Coronavirus HKU1 Not Detected (Not Detect); Coronavirus NL 63 Not Detected (Not Detect); Coronavirus OC43 Not Detected (Not Detect); Human Metapneumovirus Not Detected (Not Detect); Human Rhinovirus/Enterovirus Not Detected (Not Detect); Influenza A Not Detected (Not Detect); Influenza B Not Detected (Not Detect); Mycoplasma pneumoniae Not Detected (Not Detect); Parainfluenza Virus 1 Not Detected (Not Detect); Parainfluenza Virus 2 Not Detected (Not Detect); Parainfluenza Virus 3 Not Detected (Not Detect); Parainfluenza Virus 4 Not Detected (Not Detect); Respiratory Syncytial Virus Not Detected (Not Detect); SARS- CoV-2 Not Detected (Not Detecte)
--- NOTE | 2023-05-01 19:52 | P.HP_ITS ---
History of Present Illness History of Present Illness Date Patient Seen: 05/01/23 Chief complaint: Fall with neck pain Narrative: 47 y/o with PMH of type 1 diabetes with neuropathy, CML on Gleevec, chronic nausea and abdominal pain due to Gleevec, chronic low back pain, alcoholism, sustained several GLFs at his home and brought to the ED intoxicated with blood alcohol level of ~ 400. Given a liter of fluids, FA and thiamine and kept in the ED as he was too drowsy and wouldn't wake up. Labs showing LYNNE, elevated troponin. Placed in observation on telemetry. [facility] Medical History (Updated 05/02/23 @ 07:06 by Erik Velasquez MD) Ataxia Cervical radiculopathy Cervicalgia Cancer of blood vessel Pancytopenia Chronic, continuous use of opioids Central cord syndrome at C3 level of cervical spinal cord Thrombocytopenia Alcoholism Insulin dependent diabetes mellitus CML (chronic myelocytic leukemia) Surgical History Status post appendectomy Family History Grandfather Diabetes mellitus Mother Cancer History of heart disease Father Hyperlipidemia History of heart disease Social History household members: none Smoking Status: Former smoker Tobacco: How many years used: 10 Smokeless tobacco user: chewing tobacco (current ) quit status: considering quitting alcohol intake: former substance use type: former substance user, marijuana and opiates Meds Home Medications and Allergies Home Medications Medication Instructions Recorded Confirmed Type BD U/F Hilda Pen Needle 99Hm3ab #100 ea 06/13/18 05/01/23 Rx lorazepam 1 mg tablet 1 mg PO TID PRN nausea and anxiety 03/09/22 05/01/23 History dasatinib 100 mg tablet (Sprycel) 100 mg PO DAILY 05/11/22 05/01/23 History insulin lispro 100 unit/mL 1 - 12 unit (0.01 - 0.12 mL) 05/11/22 05/01/23 Rx subcutaneous pen (Humalog KwikPen SUBCUT [facility] #1 ea (U-100) Insulin) lactulose 10 gram/15 mL oral 15 ml PO DAILY #473 mL 05/11/22 05/01/23 Rx solution (Constulose) glucagon HCl 1 mg solution for 1 mg SUBCUT Q20M PRN hypoglycemia 10/23/22 05/01/23 Rx injection (Glucagon (HCl) #2 ea Emergency Kit) Lanemanuel Alstonostar U-100 Insulin 100 20 unit (0.2 mL) SUBCUT DAILY #15 11/03/22 05/01/23 Rx unit/mL (3 mL) subcutaneous pen mL (insulin glargine) blood-glucose sensor (Dexcom G6 #3 ea 11/06/22 05/01/23 Rx Sensor device) blood-glucose transmitter (Dexcom #1 ea 11/06/22 05/01/23 Rx G6 Transmitter device) pregabalin 25 mg capsule 25 mg PO TID #90 caps 01/19/23 05/01/23 Rx torsemide 20 mg tablet 20 mg PO DAILY #30 tabs 04/15/23 05/01/23 Rx albuterol sulfate 2.5 mg/3 mL 2.5 mg inhalation 4XD PRN wheezing 05/01/23 05/01/23 History (0.083 %) solution for nebulization duloxetine 20 mg capsule,delayed 20 mg PO BID 05/01/23 05/01/23 History release hydromorphone 2 mg tablet 2 mg PO Q6H PRN pain 05/01/23 05/01/23 History hydroxyzine HCl 25 mg tablet 25 mg PO Q6H PRN itch 05/01/23 05/01/23 History lactulose 10 gram/15 mL oral 15 ml PO DAILY 05/01/23 05/01/23 History solution (Constulose) lactulose 10 gram/15 mL oral 15 ml PO DAILY 05/01/23 05/01/23 History solution (Constulose) methadone 10 mg tablet 10 mg PO Q6H pain 05/01/23 05/01/23 History metoclopramide HCl 10 mg tablet 10 mg PO 4XD 05/01/23 05/01/23 History oxycodone 10 mg tablet 10 mg PO Q4H PRN pain 05/01/23 05/01/23 History oxycodone 5 mg tablet 5 mg PO Q4H PRN moderate pain 05/01/23 05/01/23 History Allergies Allergy/AdvReac Type Severity Reaction Status Date / Time adhesive Allergy Intermediate rash, skin Verified 03/18/23 13:21 tear latex [LATEX] Allergy Unknown rash, skin Verified 03/18/23 13:21 tear Review of Systems Review of Systems Narrative: weak Cardiovascular Comments: w/o chest pain Respiratory Comments: not short of breath Gastrointestinal Comments: chronic abdominal pain and nausea Musculoskeletal Comments: chronic LBP, neck pain Neurologic Comments: chronic diabetic neuropathy Psychiatric Comments: anxiety, depression Exam Vital Signs (past 8 hours): - 05/01/23 12:18 05/01/23 12:20 05/01/23 12:20 Temperature Pulse Rate 95 H 87 Respiratory Rate 20 Blood Pressure 123/82 Pulse Oximetry 98 99 Oxygen Delivery Method 05/01/23 12:24 05/01/23 12:30 05/01/23 12:30 Temperature 98.7 F Pulse Rate 93 H 90 Respiratory Rate 18 21 Blood Pressure 123/82 126/83 Pulse Oximetry 97 97 Oxygen Delivery Method Room Air 05/01/23 13:00 05/01/23 13:00 05/01/23 13:23 Temperature Pulse Rate 80 Respiratory Rate 23 Blood Pressure 129/81 122/84 Pulse Oximetry 99 Oxygen Delivery Method 05/01/23 13:23 05/01/23 13:30 05/01/23 13:30 Temperature Pulse Rate 83 80 Respiratory Rate 17 18 Blood Pressure 122/80 Pulse Oximetry 99 98 Oxygen Delivery Method 05/01/23 13:45 05/01/23 13:45 05/01/23 14:00 Temperature Pulse Rate 82 Respiratory Rate 20 Blood Pressure 127/79 139/81 Pulse Oximetry 98 Oxygen Delivery Method 05/01/23 14:00 05/01/23 14:15 05/01/23 14:15 Temperature Pulse Rate 94 H 87 Respiratory Rate 21 22 Blood Pressure 139/84 Pulse Oximetry 100 98 Oxygen Delivery Method 05/01/23 14:30 05/01/23 14:30 05/01/23 14:45 Temperature Pulse Rate 82 Respiratory Rate 25 H Blood Pressure 120/78 136/82 Pulse Oximetry 97 Oxygen Delivery Method 05/01/23 14:45 05/01/23 15:00 05/01/23 15:00 Temperature Pulse Rate 86 80 Respiratory Rate 20 21 Blood Pressure 137/85 Pulse Oximetry 99 99 Oxygen Delivery Method 05/01/23 15:15 05/01/23 15:15 05/01/23 15:30 Temperature Pulse Rate 80 Respiratory Rate 20 Blood Pressure 130/82 133/86 Pulse Oximetry 99 Oxygen Delivery Method 05/01/23 15:30 05/01/23 15:45 05/01/23 15:45 Temperature Pulse Rate 82 81 Respiratory Rate 21 Blood Pressure 122/77 Pulse Oximetry 99 97 Oxygen Delivery Method 05/01/23 16:12 05/01/23 16:30 05/01/23 17:00 Temperature Pulse Rate 83 81 83 Respiratory Rate 15 25 H 21 Blood Pressure Pulse Oximetry 98 98 Oxygen Delivery Method 05/01/23 17:30 05/01/23 18:00 05/01/23 18:04 Temperature Pulse Rate 80 97 H Respiratory Rate 22 23 Blood Pressure 125/81 Pulse Oximetry 98 98 Oxygen Delivery Method 05/01/23 18:04 05/01/23 18:15 05/01/23 18:15 Temperature Pulse Rate 93 H 86 Respiratory Rate 24 24 Blood Pressure 116/74 Pulse Oximetry 98 97 Oxygen Delivery Method 05/01/23 18:30 05/01/23 18:30 05/01/23 18:45 Temperature Pulse Rate 94 H Respiratory Rate 23 Blood Pressure 134/83 129/86 Pulse Oximetry 97 Oxygen Delivery Method 05/01/23 18:45 05/01/23 19:00 05/01/23 19:00 Temperature Pulse Rate 92 H 89 Respiratory Rate 24 24 Blood Pressure 128/73 Pulse Oximetry 98 97 Oxygen Delivery Method 05/01/23 19:15 05/01/23 19:15 05/01/23 19:30 Temperature Pulse Rate 93 H 93 H Respiratory Rate 25 H 24 Blood Pressure 127/76 Pulse Oximetry 98 98 Oxygen Delivery Method 05/01/23 19:30 05/01/23 19:45 05/01/23 19:45 Temperature Pulse Rate 100 H Respiratory Rate 25 H Blood Pressure 128/77 125/79 Pulse Oximetry 98 Oxygen Delivery Method Oxygen Delivery Method Room Air Const Other: laying in bed in no distress Eyes Other: eomi, equal recative pupils Resp Other: normal respiratory effort Cardio Other: RRR GI Other: abdomen not distended Skin Other: b/l heel and foot chronic wounds Extrem Other: atrophic muscles, w/o swelling Psych Other: mildly intoxicated at the time of admission Objective ECG Impression: NSR w/o ischemic changes Labs 05/02/23 04:45 05/02/23 04:45 Labs: Laboratory Results - last 24 hr 05/01/23 05/01/23 05/01/23 12:45 13:00 14:45 WBC 6.3 RBC 3.19 L Hgb 10.5 L Hct 30.8 L MCV 96.5 MCH 32.8 MCHC 34.0 RDW 14.9 H Plt Count 218 Neut % (Auto) 74.4 Lymph % (Auto) 21.4 L Wetzel % (Auto) 3.1 Eos % (Auto) 0.6 L Baso % (Auto) 0.5 Neut # (Auto) 4700 Lymph # (Auto) 1400 Wetzel # (Auto) 200 Eos # (Auto) 0 Baso # (Auto) 0 Sodium 146 H Potassium 3.2 L Chloride 117 H Carbon Dioxide 14 L BUN 22 H Creatinine 1.59 H Estimated GFR 54 L BUN/Creatinine Ratio 13.8 Glucose 289 H Lactate Calcium 8.1 L Magnesium 2.2 Total Bilirubin 0.4 AST 46 ALT 33 Alkaline Phosphatase 107 Ammonia Total Creatine Kinase 92 Troponin I 0.049 H 0.108 H Total Protein 7.4 Albumin 3.7 Globulin 3.7 Albumin/Globulin Ratio 1.0 Urine Color Urine Appearance Urine pH Ur Specific [place] Urine Protein Urine Glucose (UA) Urine Ketones Urine Occult Blood Urine Nitrate Urine Bilirubin Urine Urobilinogen Ur Leukocyte Esterase Urine RBC Urine WBC Ur Squamous Epith Cells Urine Bacteria Ur Culture Indicated? Vol Urine Centrifuged U Opiates 300ng/mL cut Ur Oxycodone Screen Urine Methadone Screen Ur Barbiturates Screen U Tricyclic Antidepress Ur Phencyclidine Scrn Ur Amphetamines Screen U Methamphetamines Scrn Ur MDMA Scrn (Ecstasy) U Benzodiazepines Scrn Urine Cocaine Screen U Marijuana (THC) Screen Urine Specific [place] Ethyl Alcohol 405 H* Ur Creatinine Chlamy pneumoniae PCR Adenovirus (PCR) B.parapertussis DNA PCR Coronavirus OC43 (PCR) Coronavirus HKU1 (PCR) Coronavirus 229E (PCR) SARS-CoV-2 (PCR) Coronavirus NL63 (PCR) Human Metapneumovir PCR Influenza Type A (PCR) Influenza Type B (PCR) M. pneumoniae (PCR) Parainfluenza 1 (PCR) Parainfluenza 2 (PCR) Parainfluenza 3 (PCR) Parainfluenza 4 (PCR) RSV (PCR) Entero/Rhino (PCR) 05/01/23 05/01/23 17:50 17:50 WBC RBC Hgb Hct MCV MCH MCHC RDW Plt Count Neut % (Auto) Lymph % (Auto) Wetzel % (Auto) Eos % (Auto) Baso % (Auto) Neut # (Auto) Lymph # (Auto) Wetzel # (Auto) Eos # (Auto) Baso # (Auto) Sodium Potassium Chloride Carbon Dioxide BUN Creatinine Estimated GFR BUN/Creatinine Ratio Glucose Lactate 2.0 Calcium Magnesium Total Bilirubin AST ALT Alkaline Phosphatase Ammonia 28 Total Creatine Kinase Troponin I 0.147 H* Total Protein Albumin Globulin Albumin/Globulin Ratio Urine Color Yellow Urine Appearance Clear Urine pH 5.5 Normal Ur Specific [place] 1.015 Urine Protein 2+ H Urine Glucose (UA) Negative Urine Ketones Negative Urine Occult Blood 1+ H Urine Nitrate Negative Urine Bilirubin Negative Urine Urobilinogen 0.2 Ur Leukocyte Esterase Negative Urine RBC 0-1/hpf Urine WBC None seen Ur Squamous Epith Cells 0-1 /hpf Urine Bacteria None seen Ur Culture Indicated? Cult not indicated Vol Urine Centrifuged 10ml (spun) U Opiates 300ng/mL cut Negative Ur Oxycodone Screen Negative Urine Methadone Screen Negative Ur Barbiturates Screen Negative U Tricyclic Antidepress Negative Ur Phencyclidine Scrn Negative Ur Amphetamines Screen Negative U Methamphetamines Scrn Negative Ur MDMA Scrn (Ecstasy) Negative U Benzodiazepines Scrn Negative Urine Cocaine Screen Negative U Marijuana (THC) Screen Negative Urine Specific [place] Normal Ethyl Alcohol Ur Creatinine Normal Chlamy pneumoniae PCR Not detected Adenovirus (PCR) Not detected B.parapertussis DNA PCR Not detected Coronavirus OC43 (PCR) Not detected Coronavirus HKU1 (PCR) Not detected Coronavirus 229E (PCR) Not detected SARS-CoV-2 (PCR) Not detected Coronavirus NL63 (PCR) Not detected Human Metapneumovir PCR Not detected Influenza Type A (PCR) Not detected Influenza Type B (PCR) Not detected M. pneumoniae (PCR) Not detected Parainfluenza 1 (PCR) Not detected Parainfluenza 2 (PCR) Not detected Parainfluenza 3 (PCR) Not detected Parainfluenza 4 (PCR) Not detected RSV (PCR) Not detected Entero/Rhino (PCR) Not detected Assessment & Plan Assessment and plan (1) Alcohol intoxication: Status: Acute (2) CML (chronic myelocytic leukemia): Problem details: 42-year-old man with longstanding history of CML. Status: Acute (3) Chronic low back pain: Qualifiers: Back pain laterality: bilateral Sciatica presence: with sciatica S ciatica laterality: bilateral sciatica Qualified Code(s): M54.42 - Lumbago with sciatica, left side; M54.41 - Lumbago with sciatica, right side; G89.29 - Other chronic pain Status: Acute (4) Chronic prescription opiate use: Status: Acute (5) Acute kidney injury: Status: Inactive Assessment & Plan narrative: 1. Alcoholism / Alcohol Intoxication - currently binging. He was drinking heavy last few days and EMS found several empty bottles. At the time of admission intoxicated. - fall several times at home. His baseline mobility is impaired, placed in observation 2. CML - Gleevec, oncology follow up - since 2017, stable counts 3. LYNNE / CKD - Cr up on admission, above the baseline - given 1 L of IVFs in ED - Hx of CHF with recent BNP of ~ 5000 in the ED visit on 04/15 - BMP, BNP in AM 4. Chronic Pain - he was asking for pain medications shortly after the admission -
[2023-05-01] MEDS: ONDANSETRON 4 MG/2 ML INJ IV (20:42)
[2023-05-01] MEDS: INSULIN LISPRO 100 UNIT/ML 3ML VIAL SUBCUT (21:04)
[2023-05-01] MEDS: METHADONE 10 MG TABLET PO (22:44)
[2023-05-01] MEDS: METOCLOPRAMIDE HCL 5 MG TABLET 10 MG PO (23:48)
[2023-05-01] MEDS: HYDROMORPHONE 2 MG TABLET PO (23:48)
--- NOTE | 2023-05-01 23:58 | PC.RNWOUND ---
^ R foot ^ L foot ^ bilateral knees ^ backside, skin tear on R buttock. Skin opening on upper L side. Semi-blanchable redness on backside.
--- NOTE | 2023-05-02 00:01 | PC.NURSE ---
shift supervisor rn: Patient arrived from the ED via stretcher at approximately 2000. Slid patient to the bed d/t dizziness and weakness. Patient is AxOx4, VSS, O2 saturation 98% on RA. Denies chest pain or difficulty breathing. Lung sounds are CTA. Complaints of generalized 5/10 pain and nausea, medicated as ordered. B, 1 unit insulin given. Skin wound photos uploaded. Drsg on R foot removed and changed, heels are elevated. Condom catheter placed d/t urinary incontinence and weakness. Oriented patient to room & call-light, fall precautions in place.
[2023-05-02] MEDS: OXYCODONE IR 5 MG TABLET PO ×2 (00:34→04:21)
[2023-05-02] MEDS: LORazepam 1 MG TABLET PO ×5 (00:34→23:59)
[2023-05-02 03:53] VITALS: BP 134/87; PULSE 94; RESP 16; TEMP 36.9; O2SAT 95
[2023-05-02] MEDS: ONDANSETRON 4 MG/2 ML INJ IV ×2 (04:21→19:58)
[2023-05-02 05:13] LABS: Add Manual Diff / Slide Review NO; Basophils Absolute Auto 0 /uL (0-100); Basophils Percent Auto 0.4 % (0-2); Eosinophils Absolute Auto 0 /uL (0-450); Eosinophils Percent Auto 0.7 % (2-4); Hematocrit 24.5 % (41-53); Hemoglobin 8.4 g/dL (13.5-17.5); Lymphocytes Absolute Auto 1000 /uL (1100-4500); Lymphocytes Percent Auto 16.2 % (25-40); Mean Corpuscular HGB Conc 34.2 % (30-36); Mean Corpuscular Hemoglobin 32.9 PG (26-34); Monocytes Absolute Auto 400 /uL (0-900); Monocytes Percent Auto 5.8 % (3-14); Neutrophils Absolute Auto 4900 /uL (1500-7000); Neutrophils Percent Auto 76.9 % (50-75); Platelet Count 157 X10^3/uL (150-400); Red Blood Cell Count 2.55 X10^6/uL (4.5-5.9); Red Cell Distribution Width 15.1 % (11.6-14.8); White Blood Cell Count 6.4 X10^3/uL (4.5-11.0)
[2023-05-02 05:26] LABS: BUN Creatinine Ratio 16.3 (6-22); Blood Urea Nitrogen 17 mg/dL (9-20); Calcium 7.5 mg/dL (8.4-10.2); Carbon Dioxide 14 mmol/L (22-32); Chloride 114 mmol/L (98-107); Estimated Glomerular Filt Rate > 60 mL/min (>60); Glucose 208 mg/dL (70-100); HEMOLYSIS < 15 (0-50); Potassium 3.9 mmol/L (3.4-5.1); Sodium 137 mmol/L (137-145)
[2023-05-02 05:33] LABS: NT-proBNP (BNP-Adult 18+) 178 pg/mL (<125)
[2023-05-02] MEDS: HYDROMORPHONE 2 MG TABLET PO (06:18)
[2023-05-02] MEDS: METOCLOPRAMIDE HCL 5 MG TABLET 10 MG PO ×4 (06:21→22:58)
[2023-05-02 07:00] VITALS: BP 155/89; PULSE 90; RESP 20; TEMP 36.9; O2SAT 95
--- NOTE | 2023-05-02 08:21 | CM.DANOTE ---
Initial DCP Assessment Note Reviewed EMR and team rounds for pt's medical status and initial anticipated d/c needs. Met with pt at bedside to introduce self and role. Pt found to be awake, oriented, appearing somnolent, yet was able to provide assessment information during [employer] visit. Payor: [employer], Medicaid Pt is a 47 year-old M with a PMH of CML on Gleevec, insulin dependent diabetes, CHF, chronic opiod and alcohol use disorder presented to the ED by EMS last evening due to worsening weakness, altered mental status, and has had several falls at home. His family found him on the floor in his home pinned between his bedside table and bed. Pt resides alone, has a [employer] cg 3-days per week for 4 1/2 hours per day. His parents are actively involved in his care and care coordination needs, as he's been chronically ill and debilitated by his STEVE. ED evaluation showed him to be highly intoxicated w/metabolic encephalopathy. Physical examination found several wounds on his feet, plus a coccyx area of skin breakdown. IV fluids were started and pt received oral potassium. Per ED note, pt remained very lethargic even after several hours in the ED, so was brought upstairs and placed in a OBS bed for further tx and evaluation. DCP will continue to follow for evolving care plan and d/c needs. Barriers to Discharge: Chronic STEVE hx, chronic noncompliance to medical recommendations, [employer] Insurance in regard to SNF placement. Discharge Planning/Care Management CM Discharge Assessment Start: 05/02/23 08:02 Freq: Status: Active Protocol: Document 05/02/23 08:02 DPL (Rec: 05/02/23 08:21 DPL [id number]) Discharge Planning Assessment Assigned Manufacturing Associate YASMINE Stout Advance Directives? Yes Advance Directives on File Yes History Provided By Patient,Medical Record Has Patient been admitted in last 30 No days? Comment Pt presents to the ED on a monthly basis for the same, ongoing issues of STEVE (alcohol and opiates), noncompliance w /care and meds, chronic foot ulcers/wounds. Recent ED dates include: , 03/18/23. 01/29/23, , 12/22/22, 11/23/22, 10/27/22, 10/16/22. Prior Living Arrangements House Household Members none Type of transporation used prior to Relies on Others admit Comment Family usually drives pt to medical appointments, etc. He does still have a [facility] cg that comes 3x per week for around 4 1/2 hours at a time. He feels that this cg plan is adequate at this time. Independent with ADL's No: modified independent Is patient alert and oriented? Yes: alert but somnolent Needs Assistance With Managing Medications,Home Chores / Shopping Caregiver for Another No Comment OP Oncology, Dr. Bauer at [facility]. Clinicals Faxed No Hours / Month 4 1/2 hours 3-days per week Patient/Family Preference Home with Home Health Barriers to Discharge Yes Comment STEVE is a barrier for SNF. Discharge Plan Home with Home Health Transportation Arrangement Family If patient plan is home with home health No: Will plan to compete if : Has signed face to face form been needed by d/c. completed? Medicare Choice List Provided No Whiteboard Updated in Patient Room with Yes name and ext. # of Manufacturing Associate Review Status In Process Please Provide Date Initial DC 05/02/23 Assessment Was Performed
[2023-05-02] MEDS: DULOXETINE 20 MG CAPSULE PO ×2 (08:32→20:14)
[2023-05-02] MEDS: OXYCODONE IR 10 MG TABLET PO ×4 (08:32→22:58)
[2023-05-02] MEDS: METHADONE 10 MG TABLET PO ×3 (08:32→19:58)
[2023-05-02] MEDS: INSULIN LISPRO 100 UNIT/ML 3ML VIAL SUBCUT (08:33)
[2023-05-02] MEDS: INSULIN GLARGINE 100 UNIT/ML 3ML PEN 20 UNIT SUBCUT (08:35)
[2023-05-02 11:00] VITALS: BP 167/97; PULSE 88; RESP 16; TEMP 37; O2SAT 94
[2023-05-02] MEDS: HYDROMORPHONE 1 MG INJ IV ×4 (11:56→23:59)
--- NOTE | 2023-05-02 12:27 | PM.PN.1 ---
Subjective Subjective Date Patient Seen: 05/02/23 Interval history: Pt complaining of sev nausea and pain. Unable to take in much po. Exam Vital Signs (past 8 hours): - 05/02/23 07:00 05/02/23 11:00 Temperature 98.4 F 98.6 F Pulse Rate 90 88 Respiratory Rate 20 16 Blood Pressure 155/89 H 167/97 H Pulse Oximetry 95 94 Oxygen Flow Rate 0 0 Oxygen Delivery Method Room Air Oxygen Flow Rate 0 Narrative Exam Narrative: Gen: alert, uncomfortable Lungs: clear to auscultation CV: regular Abd: soft Ext: no edema Neuro: mentation clear Objective Labs 05/02/23 04:45 05/02/23 04:45 Labs: Laboratory Results - last 24 hr 05/01/23 05/01/23 05/01/23 12:45 13:00 14:45 WBC 6.3 RBC 3.19 L Hgb 10.5 L Hct 30.8 L MCV 96.5 MCH 32.8 MCHC 34.0 RDW 14.9 H Plt Count 218 Neut % (Auto) 74.4 Lymph % (Auto) 21.4 L [place] % (Auto) 3.1 Eos % (Auto) 0.6 L Baso % (Auto) 0.5 Neut # (Auto) 4700 Lymph # (Auto) 1400 [place] # (Auto) 200 Eos # (Auto) 0 Baso # (Auto) 0 Sodium 146 H Potassium 3.2 L Chloride 117 H Carbon Dioxide 14 L BUN 22 H Creatinine 1.59 H Estimated GFR 54 L BUN/Creatinine Ratio 13.8 Glucose 289 H Lactate Calcium 8.1 L Magnesium 2.2 Total Bilirubin 0.4 AST 46 ALT 33 Alkaline Phosphatase 107 Ammonia Total Creatine Kinase 92 Troponin I 0.049 H 0.108 H NT-Pro-B Natriuret Pep Total Protein 7.4 Albumin 3.7 Globulin 3.7 Albumin/Globulin Ratio 1.0 Urine Color Urine Appearance Urine pH Ur Specific [place] Urine Protein Urine Glucose (UA) Urine Ketones Urine Occult Blood Urine Nitrate Urine Bilirubin Urine Urobilinogen Ur Leukocyte Esterase Urine RBC Urine WBC Ur Squamous Epith Cells Urine Bacteria Ur Culture Indicated? Vol Urine Centrifuged U Opiates 300ng/mL cut Ur Oxycodone Screen Urine Methadone Screen Ur Barbiturates Screen U Tricyclic Antidepress Ur Phencyclidine Scrn Ur Amphetamines Screen U Methamphetamines Scrn Ur MDMA Scrn (Ecstasy) U Benzodiazepines Scrn Urine Cocaine Screen U Marijuana (THC) Screen Urine Specific [place] Ethyl Alcohol 405 H* Ur Creatinine Chlamy pneumoniae PCR Adenovirus (PCR) B.parapertussis DNA PCR Coronavirus OC43 (PCR) Coronavirus HKU1 (PCR) Coronavirus 229E (PCR) SARS-CoV-2 (PCR) Coronavirus NL63 (PCR) Human Metapneumovir PCR Influenza Type A (PCR) Influenza Type B (PCR) M. pneumoniae (PCR) Parainfluenza 1 (PCR) Parainfluenza 2 (PCR) Parainfluenza 3 (PCR) Parainfluenza 4 (PCR) RSV (PCR) Entero/Rhino (PCR) 05/01/23 05/01/23 05/02/23 17:50 17:50 04:45 WBC 6.4 RBC 2.55 L Hgb 8.4 L Hct 24.5 L MCV 96.0 MCH 32.9 MCHC 34.2 RDW 15.1 H Plt Count 157 Neut % (Auto) 76.9 H Lymph % (Auto) 16.2 L [place] % (Auto) 5.8 Eos % (Auto) 0.7 L Baso % (Auto) 0.4 Neut # (Auto) 4900 Lymph # (Auto) 1000 L [place] # (Auto) 400 Eos # (Auto) 0 Baso # (Auto) 0 Sodium 137 Potassium 3.9 Chloride 114 H Carbon Dioxide 14 L BUN 17 Creatinine 1.04 Estimated GFR > 60 BUN/Creatinine Ratio 16.3 Glucose 208 H Lactate 2.0 Calcium 7.5 L Magnesium Total Bilirubin AST ALT Alkaline Phosphatase Ammonia 28 Total Creatine Kinase Troponin I 0.147 H* NT-Pro-B Natriuret Pep 178 H Total Protein Albumin Globulin Albumin/Globulin Ratio Urine Color Yellow Urine Appearance Clear Urine pH 5.5 Normal Ur Specific [place] 1.015 Urine Protein 2+ H Urine Glucose (UA) Negative Urine Ketones Negative Urine Occult Blood 1+ H Urine Nitrate Negative Urine Bilirubin Negative Urine Urobilinogen 0.2 Ur Leukocyte Esterase Negative Urine RBC 0-1/hpf Urine WBC None seen Ur Squamous Epith Cells 0-1 /hpf Urine Bacteria None seen Ur Culture Indicated? Cult not indicated Vol Urine Centrifuged 10ml (spun) U Opiates 300ng/mL cut Negative Ur Oxycodone Screen Negative Urine Methadone Screen Negative Ur Barbiturates Screen Negative U Tricyclic Antidepress Negative Ur Phencyclidine Scrn Negative Ur Amphetamines Screen Negative U Methamphetamines Scrn Negative Ur MDMA Scrn (Ecstasy) Negative U Benzodiazepines Scrn Negative Urine Cocaine Screen Negative U Marijuana (THC) Screen Negative Urine Specific [place] Normal Ethyl Alcohol Ur Creatinine Normal Chlamy pneumoniae PCR Not detected Adenovirus (PCR) Not detected B.parapertussis DNA PCR Not detected Coronavirus OC43 (PCR) Not detected Coronavirus HKU1 (PCR) Not detected Coronavirus 229E (PCR) Not detected SARS-CoV-2 (PCR) Not detected Coronavirus NL63 (PCR) Not detected Human Metapneumovir PCR Not detected Influenza Type A (PCR) Not detected Influenza Type B (PCR) Not detected M. pneumoniae (PCR) Not detected Parainfluenza 1 (PCR) Not detected Parainfluenza 2 (PCR) Not detected Parainfluenza 3 (PCR) Not detected Parainfluenza 4 (PCR) Not detected RSV (PCR) Not detected Entero/Rhino (PCR) Not detected 05/02/23 08:20 WBC RBC Hgb Hct MCV MCH MCHC RDW Plt Count Neut % (Auto) Lymph % (Auto) [place] % (Auto) Eos % (Auto) Baso % (Auto) Neut # (Auto) Lymph # (Auto) [place] # (Auto) Eos # (Auto) Baso # (Auto) Sodium Potassium Chloride Carbon Dioxide BUN Creatinine Estimated GFR BUN/Creatinine Ratio Glucose Lactate Calcium Magnesium Total Bilirubin AST ALT Alkaline Phosphatase Ammonia Total Creatine Kinase Troponin I 0.040 H NT-Pro-B Natriuret Pep Total Protein Albumin Globulin Albumin/Globulin Ratio Urine Color Urine Appearance Urine pH Ur Specific [place] Urine Protein Urine Glucose (UA) Urine Ketones Urine Occult Blood Urine Nitrate Urine Bilirubin Urine Urobilinogen Ur Leukocyte Esterase Urine RBC Urine WBC Ur Squamous Epith Cells Urine Bacteria Ur Culture Indicated? Vol Urine Centrifuged U Opiates 300ng/mL cut Ur Oxycodone Screen Urine Methadone Screen Ur Barbiturates Screen U Tricyclic Antidepress Ur Phencyclidine Scrn Ur Amphetamines Screen U Methamphetamines Scrn Ur MDMA Scrn (Ecstasy) U Benzodiazepines Scrn Urine Cocaine Screen U Marijuana (THC) Screen Urine Specific [place] Ethyl Alcohol Ur Creatinine Chlamy pneumoniae PCR Adenovirus (PCR) B.parapertussis DNA PCR Coronavirus OC43 (PCR) Coronavirus HKU1 (PCR) Coronavirus 229E (PCR) SARS-CoV-2 (PCR) Coronavirus NL63 (PCR) Human Metapneumovir PCR Influenza Type A (PCR) Influenza Type B (PCR) M. pneumoniae (PCR) Parainfluenza 1 (PCR) Parainfluenza 2 (PCR) Parainfluenza 3 (PCR) Parainfluenza 4 (PCR) RSV (PCR) Entero/Rhino (PCR) [facility] Medical History (Updated 05/02/23 @ 07:06 by Erik Velasquez MD) Ataxia Cervical radiculopathy Cervicalgia Cancer of blood vessel Pancytopenia Chronic, continuous use of opioids Central cord syndrome at C3 level of cervical spinal cord Thrombocytopenia Alcoholism Insulin dependent diabetes mellitus CML (chronic myelocytic leukemia) Surgical History Status post appendectomy Family History Grandfather Diabetes mellitus Mother Cancer History of heart disease Father Hyperlipidemia History of heart disease Social History household members: none Smoking Status: Former smoker Tobacco: How many years used: 10 Smokeless tobacco user: chewing tobacco (current ) quit status: considering quitting alcohol intake: former substance use type: former substance user, marijuana and opiates Assessment & Plan Assessment & Plan narrative: 1. Alcoholism / Alcohol Intoxication - currently binging. He was drinking heavy last few days and EMS found several empty bottles. At the time of admission intoxicated. Pt states he had a relapse. Not interested in outpatient rehab. - fall several times at home. His baseline mobility is impaired, placed in observation 2. CML - Gleevec, oncology follow up - since 2017, stable counts 3. LYNNE, resolving - Cr up on admission, above the baseline - given 1 L of IVFs in ED - Hx of CHF with recent BNP of ~ 5000 in the ED visit on 04/15 - Cr 1.54 --> 1.04 4. Diabetes - insulin requiring -no evid DKA -cont Lantus 20 units HS and lispro s/s 5. Chronic Pain - he was asking for pain medications shortly after the admission - back on routine of methadone, hydromorphne and oxycodone prn - also ordered hydromorphone 1 mg IV q4 h prn if unable take po due to nausea 6. Chronic nbausea due to Gleevec - cont on Reglan 10 mg po q6h for nausea DVT prevention: enoxaprin Pt can likely discharge home tomorrow if stable. Quality VTE Deep Vein Thrombosis/Pulmonary Embolism Present on Admission: No
[2023-05-02 16:00] VITALS: BP 158/89; PULSE 80; RESP 16; TEMP 36.4; O2SAT 95
[2023-05-02] MEDS: ONDANSETRON 4 MG ODT PO (16:09)
--- NOTE | 2023-05-02 18:43 | PC.NURSE ---
Day shift: Pt A&Ox4. CIWA scores between 4 and 6 this shift. Pt reported pain and nausea consistently between 6 and 10. IV dilaudid + all prescribed PO pain and nausea medications given. MD Solorzano increased pain medications and ordered home methadone dose. No dry heaves or vomitting. Pt has little appetite. Voiding per condom cath. Pt declined any offer by this RN to reposition or get out of bed. Pt's legs are fairly rigid and about 2/5 strength. ordered PT consult for tomorrow. This RN cleaned and changed patient's wounds on B feet. Pt tolerated well - he states his toes are numb and he has decreased sensation on B heals. Covered open wounds with allevant dressing after cleaning with sterile NS. Pt states perinatal director uses hydroferra blue at home, we did not have any on the floor today. Pt's BGs: 202, 102, 77 this shift. Gave apple juice for BG of 77 - pt felt symptomatic. Was shaky and pale. Rechecked BG 15 min later, up to 86. Notfied MD Solorzano who lowered basal insulin. Will continue to monitor.
[2023-05-02 20:00] VITALS: BP 167/101; PULSE 84; RESP 12; TEMP 37.1; O2SAT 98
[2023-05-03] VITALS: BP 164/107; PULSE 86; RESP 12; TEMP 36.9; O2SAT 98
[2023-05-03] MEDS: METHADONE 10 MG TABLET PO ×3 (01:36→13:31)
[2023-05-03] MEDS: ONDANSETRON 4 MG/2 ML INJ IV ×3 (02:25→13:33)
[2023-05-03] MEDS: OXYCODONE IR 10 MG TABLET PO ×4 (03:01→16:10)
[2023-05-03 04:00] VITALS: BP 165/109; PULSE 92; RESP 12; TEMP 36.8; O2SAT 97
[2023-05-03] MEDS: HYDROMORPHONE 1 MG INJ IV ×2 (04:45→09:09)
[2023-05-03] MEDS: METOCLOPRAMIDE HCL 5 MG TABLET 10 MG PO ×2 (04:46→12:23)
[2023-05-03] MEDS: LORazepam 1 MG TABLET PO (04:54)
--- NOTE | 2023-05-03 06:14 | PC.NURSE ---
Pt has been c/o nausea most of the night requiring anti-nausea medication, no vomiting and drinking fluids by mouth without any vomiting. BS was in the low 70's around 2100, no insulin given, pt drinking apple juice, gingerale and ensure. Pt c/o of chronic back pain 6-11/19 requiring pain medication. Pt refusing to be turn in bed, states I have a cushion on my bottom. Pt hasn't gotten out of bed since being in the hospital. pt states he gets up using a FWW at home. pt putting out adequate urine output via condom catheter.
[2023-05-03 08:00] VITALS: BP 156/99; PULSE 81; RESP 16; TEMP 36.5; O2SAT 96
[2023-05-03] MEDS: DULOXETINE 20 MG CAPSULE PO (09:09)
[2023-05-03] MEDS: ENOXAPARIN 40 MG/0.4 ML SYRINGE SUBCUT (09:09)
--- NOTE | 2023-05-03 09:26 | P.DS_ITS ---
History of Present Illness History of Present Illness Chief complaint: Fall with neck pain Narrative: 47 y/o with PMH of type 1 diabetes with neuropathy, CML on Gleevec, chronic nausea and abdominal pain due to Gleevec, chronic low back pain, alcoholism, sustained several GLFs at his home and brought to the ED intoxicated with blood alcohol level of ~ 400. Given a liter of fluids, FA and thiamine and kept in the ED as he was too drowsy and wouldn't wake up. Labs showing LYNNE, elevated troponin. Placed in observation on telemetry. Discharge Providers Provider Date of admission: 05/01/23 18:38 Discharge Date: 05/03/23 Primary care physician: Zakia Kidd DO Consults: 05/02/23 14:40 Consult to Physical Therapy Evaluate & Treat Comment: Physician Instructions: Evaluate and Treat Discharge provider: Prudencio Romeo MD Summary Hospital Course Discharge Diagnosis: 1. Alcohol abuse and intoxication, present on admission and improving. 2. Acute kidney injury, present on admission and improving. 3. CML, present on admission and stable. 4. Insulin-dependent diabetes, present on admission and stable. 5. Chronic back pain, present on admission and active. 6. Chronic opiate use, present on admission and active. Hospital Course: The patient was admitted with intoxication and acute kidney injury. He was treated with IV fluids and his renal function improved. The patient was placed in observation status and evaluated for gait. The patient notes he is going to stopped drinking, and has been in inpatient and outpatient programs in the past. He declines any referrals at this time. He also notes a recent and in her relationship with his most recent prescriber for opiates, Dr. Atkinson [facility]. He will reach out to primary care, but is trying to not use pain medications or alcohol. Status at Discharge Cognitive/behavioral status at discharge: oriented Functional status at discharge: uses cane/walker Overall status at discharge: patient is back to baseline Time Spent with Patient Time spent: Greater than 30 minutes Exam Vital Signs (past 8 hours): - 05/03/23 04:00 05/03/23 08:00 Temperature 98.2 F 97.7 F Pulse Rate 92 H 81 Respiratory Rate 12 16 Blood Pressure 165/109 H 156/99 H Pulse Oximetry 97 96 Oxygen Delivery Method Room Air Oxygen Flow Rate 0 Narrative Exam Narrative: NAD, fluent speech. Oriented. Lungs are clear, normal effort. Heart is regular, no murmur. Abdomen is soft, flat. Extremities are free of edema. Objective Imaging CT scan - chest: Radiologist's impression: 1. No evidence of pulmonary embolism, aortic dissection or aneurysm. 2. Bilateral lower lobe tree-in-bud peripheral pattern consistent with community-acquired infectious or inflammatory process Cervical spine CT: Radiologist's impression: Instrumented discectomy and fusion with mid cervical decompression. No fracture or hardware failure. CT scan - head: Radiologist's impression: No acute intracranial pathology. Chest x-ray: Radiologist's impression: No acute cardiopulmonary abnormality is seen. Labs 05/02/23 04:45 05/02/23 04:45 [facility] Medical History Ataxia Cervical radiculopathy Cervicalgia Cancer of blood vessel Pancytopenia Chronic, continuous use of opioids Central cord syndrome at C3 level of cervical spinal cord Thrombocytopenia Alcoholism Insulin dependent diabetes mellitus CML (chronic myelocytic leukemia) Surgical History Status post appendectomy Family History Grandfather Diabetes mellitus Mother Cancer History of heart disease Father Hyperlipidemia History of heart disease Social History household members: none Smoking Status: Former smoker Tobacco: How many years used: 10 Smokeless tobacco user: chewing tobacco (current ) quit status: considering quitting alcohol intake: former substance use type: former substance user, marijuana and opiates Discharge Assessment & Plan Assessment and Plan Assessment: 1. Alcohol use disorder/ Alcohol Intoxication, improved. - currently binging. He was drinking heavy last few days and EMS found several empty bottles. At the time of admission intoxicated. Pt states he had a relapse. Not interested in outpatient rehab. - fall several times at home. His baseline mobility is impaired, placed in observation 2. CML, stable - Gleevec, oncology follow up - since 2017, stable counts 3. LYNNE, resolving - Cr up on admission, above the baseline - given 1 L of IVFs in ED - Hx of CHF with recent BNP of ~ 5000 in the ED visit on 04/15 - Cr 1.54 --> 1.04 4. Diabetes, active- insulin requiring -no evid DKA -cont Lantus 10 units HS and lispro s/s 5. Chronic Pain, stable - he was asking for pain medications shortly after the admission - back on routine of methadone, hydromorphne and oxycodone prn - also ordered hydromorphone 1 mg IV q4 h prn if unable take po due to nausea 6. 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 The patient declines outpatient resource referral including alcohol programs. He intends to stop alcohol on his own and understands that he has not being prescribed pain medications and will need to stop these. He would like to stop all of these and understands that these are impacting his health. Discharge Plan Discharge Plan Patient Disposition: Home Provider Discharge Comment: The patient notes that his medical information can be shared with his mother and father at the time of discharge and in general. Discharge orders & Medications Prescriptions: Continued (DME) BD U/F Hilda Pen Needle [id number] 0 .Route .MEDSUPPLY Qty: 100 3RF Hold Instructions: ESTABLISHED AT [facility] Dose Instruction: As directed Rx Instructions: BD U/F Hilda Pen Needle [id number] use as directed with insulin insulin lispro [Humalog KwikPen Insulin] 100 unit/mL insulin pen 1 - 12 unit subcut TIDCC Qty: 1 3RF Hold Instructions: ESTABLISHED AT [facility] Patient Comments: patient states none today lactulose [Constulose] 10 gram/15 mL solution 15 ml PO DAILY Qty: 473 6RF Hold Instructions: ESTABLISHED AT [facility] Sprycel 100 mg tablet 100 mg PO DAILY Hold Instructions: ESTABLISHED AT [facility] Patient Comments: pt started for his CML glucagon HCl [Glucagon (HCl) Emergency Kit] 1 mg recon soln 1 mg SUBCUT Q20M PRN (Reason: hypoglycemia) Qty: 2 0RF Hold Instructions: ESTABLISHED AT [facility] Rx Instructions: until target blood sugar attained insulin glargine [Lantus Solostar U-100 Insulin] 100 unit/mL (3 mL) insulin pen 20 unit SUBCUT DAILY Qty: 15 3RF Hold Instructions: [place] [facility] [place] [place] Dexcom G6 Sensor Device See Rx Instructions .Route Qty: 3 5RF Hold Instructions: ESTABLISHED AT [facility] Rx Instructions: As directed (DME) Dexcom G6 Transmitter Device See Rx Instructions .Route Qty: 1 3RF Hold Instructions: ESTABLISHED AT [facility] Rx Instructions: As directed torsemide 20 mg tablet 20 mg PO DAILY Qty: 30 0RF albuterol sulfate 2.5 mg /3 mL (0.083 %) solution for nebulization 2.5 mg inhalation 4XD PRN (Reason: wheezing) Patient Comments: No longer taking lactulose [Constulose] 10 gram/15 mL solution 15 ml PO DAILY Patient Comments: was takin gregularly but just stopped lactulose [Constulose] 10 gram/15 mL solution 15 ml PO DAILY hydroxyzine HCl 25 mg tablet 25 mg PO Q6H PRN (Reason: itch) metoclopramide HCl 10 mg tablet 10 mg PO 4XD duloxetine 20 mg capsule,delayed release(DR/EC) 20 mg PO BID Discontinued pregabalin 25 mg capsule 25 mg PO TID Qty: 90 0RF Hold Instructions: ESTABLISHED AT [facility] lorazepam 1 mg tablet 1 mg PO TID PRN (Reason: nausea and anxiety) Hold Instructions: ESTABLISHED AT [facility] methadone 10 mg tablet 10 mg PO Q6H hydromorphone 2 mg tablet 2 mg PO Q6H PRN (Reason: pain) oxycodone 5 mg tablet 5 mg PO Q4H PRN (Reason: moderate pain) oxycodone 10 mg tablet 10 mg PO Q4H PRN (Reason: pain) Follow up/Referrals: Zakia Kidd DO [Primary Care Provider] - Discharge Health Status Multidrug resistant organism: No MDRO Diet/Activity/Treatments Diet comment: Regular Activity: As tolerated Visit Report/Discharge Packet Stand Alone Forms: Patient Portal/API Discharge Data Primary Care Provider: Zakia Kidd Attending Provider: Erik Pastor Admit Date/Time: 05/01/23 18:38 Quality VTE Deep Vein Thrombosis/Pulmonary Embolism Present on Admission: No
--- NOTE | 2023-05-03 09:33 | CM.DPC ---
DCP Cont. Reviewed EMR for status updates. Pt has improved since admission and is now medically stable for discharge. Family will transport once d/c paperwork is finalized.
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
[2023-05-03 12:00] VITALS: BP 159/107; PULSE 99; RESP 18; TEMP 36.7; O2SAT 96
[2023-05-03] MEDS: HYDROMORPHONE 2 MG TABLET PO (13:31)
--- NOTE | 2023-05-03 14:36 | CM.DPC ---
DCP Cont. Received call from pt's father, mother was on speaker call, stating that Fred should not go home, or he will fall, he needs to be in assisted living. [employer] explained to him that in order to move forward with plans for long-term placement, that they will need to call pt's assigned [facility] Home and Community Services case assistant and request a new functional assessment in order for him to qualify for long-term placement paid for by his Medicaid. [employer] also explained that pt is not eligible for SNF rehab due to his admission being for ETOH overdose, and long-term opiate med seeking/noncompliance with medical advice, and how frequently he requires EMS intervention for the same issues. Also explained that he was here as OBS, and does not meet with criteria for rehab anyway. [employer] discussed a potential plan for them to move forward with the care that he needs for the short-term until [facility] can complete their assessment. Encouraged them to hire private pay caregivers to augment his current [facility] caregiving hours, and provided his father the contact info for 3-different private caregiving agencies. [employer] also encouraged his parents to stay the night with him for the next few days until they have secured the in-home care that they need in order for him to stay safe and supervised. They expressed understanding of this plan, and were agreeable in moving forward. They will plan to leave the house and come transport pt home within the next hour or so. Updated inpt team.
[2023-05-03 16:00] VITALS: BP 144/118; PULSE 90; RESP 16; TEMP 36.5; O2SAT 90
--- NOTE | 2023-05-03 16:51 | PC.NURSE ---
Patient is A&OX4, soft spoken. He is in and out of sleeping today but when awake reports pain level 7-8/10 everywhere. His a.m. BG is 86 and he declines insulin today. He reports consistent nausea wich results in CIWA score of 4. No other signs of withdrawl present. He denies wanting to get out of bed this a.m. but is agreeable to ambulate with PT. Wound care supplies brought from wound clinic and MD garcia'd to place new dressings. Patient is medically stable for discharge home and patient's parents are notified. CM spoke with patient's family at length about discharge plan and out patient recommendations. His parents arrive at 1740 to transport patient home with all of his belongings. He is escorted via w/ with parents at 1655 to private vehicle home with his parents.
--- NOTE | 2023-05-04 11:12 | CM.DPNOTE ---
Post discharge family interaction CPR INSTRUCTOR received notice from medical records that pt's father wished to speak to social sciences chair. CPR INSTRUCTOR spoke with father over the phone, father angry and frustrated and requested to speak in person. CPR INSTRUCTOR agreed to meet in waiting room of acute care/ICU floor. Father inquired about paperwork to take over pt's medication management. Father reported pt is killing himself with drug usage and medication mismanagement. Father reports pt is an addict. This CPR INSTRUCTOR explained that because he is not POA, CPR INSTRUCTOR cannot disclose any PHI. This CPR INSTRUCTOR explained that people have the right to make decisions from themselves, including their medication, until they are legally deemed unable to make decisions for themselves. CPR INSTRUCTOR gave father copy of POA paperwork as closest thing to taking over for pt's medical decisions but explained it does not override pt's free will and ability to make decisions for himself until his is deemed unable to do so. CPR INSTRUCTOR encouraged pt father to see corporate legal assistant to inquire if the paperwork he was requesting was possible. Father expressed verbal understanding. YASMINE Gonzalez
== END 2023-05-03 16:55 | disposition home or self-care (01) ==
LOC: ED 15:51 → AC 18:39
PROVIDERS: Internal Medicine; Admitting Provider Internal Medicine; Emergency Provider Emergency Medicine; PCP Family Medicine; Referring Provider Emergency Medicine; Visit Provider Internal Medicine
DX: M54.2 Cervicalgia (principal); F10.129 Alcohol abuse with intoxication, unspecified; N17.9 Acute kidney failure, unspecified; C92.10 Chronic myeloid leukemia, BCR/ABL-positive, not having achieved remission; E10.40 Type 1 diabetes mellitus with diabetic neuropathy, unspecified; G89.29 Other chronic pain; M54.41 Lumbago with sciatica, right side; M54.42 Lumbago with sciatica, left side; Z79.891 Long term (current) use of opiate analgesic; W18.39XA Other fall on same level, initial encounter; Y92.003 Bedroom of unspecified non-institutional (private) residence as the place of occurrence of the external cause; Z79.4 Long term (current) use of insulin; Z91.81 History of falling; Y90.8 Blood alcohol level of 240 mg/100 ml or more
CPT/HCPCS: 36415; 51701; 70450; 71045; 71275; 72125; 80048; 80053; 80305; 80320; 81001; 82140; 82550; 82962; 83605; 83735; 83880; 84484; 85025; 87633; 93005; 93010; 96361; 96372; 96374; 96375; 96376; 97162; 99285; G0378; J1170; J1650; J1815; J2405; Q9967

== ENCOUNTER → 2023-05-24 14:44 | Outpatient (CLI) | payer OTHER, MEDICAID, SELFPAY ==
[2023-05-01 18:42] VITALS: BMI 19.0
== END ==
PROVIDERS: PCP Family Medicine; Referring Provider Podiatrist; Visit Provider Surgery
DX: E11.621 Type 2 diabetes mellitus with foot ulcer (principal); L97.512 Non-pressure chronic ulcer of other part of right foot with fat layer exposed; R60.0 Localized edema; E46 Unspecified protein-calorie malnutrition; E11.40 Type 2 diabetes mellitus with diabetic neuropathy, unspecified; C92.11 Chronic myeloid leukemia, BCR/ABL-positive, in remission; I10 Essential (primary) hypertension; Z86.718 Personal history of other venous thrombosis and embolism; Z92.21 Personal history of antineoplastic chemotherapy; Z87.891 Personal history of nicotine dependence
CPT/HCPCS: 11042; 87070; 87075; 87077; 87147; 87186; 87205; 99213; 99214

== ENCOUNTER → 2023-07-21 11:30 | Outpatient (CLI) | payer OTHER, MEDICAID, SELFPAY ==
[2023-05-01 18:42] VITALS: BMI 19.0
== END ==
LOC: WC 11:31
PROVIDERS: PCP Family Medicine; Referring Provider Family Medicine; Visit Provider Surgery
DX: E11.621 Type 2 diabetes mellitus with foot ulcer (principal); L97.412 Non-pressure chronic ulcer of right heel and midfoot with fat layer exposed; E11.42 Type 2 diabetes mellitus with diabetic polyneuropathy; L84 Corns and callosities; R23.4 Changes in skin texture
CPT/HCPCS: 11042; 99213

== ENCOUNTER → 2024-02-02 10:37 | Outpatient (CLI) | payer OTHER, MEDICAID, SELFPAY ==
[2023-05-01 18:42] VITALS: BMI 19.0
[2024-02-02 11:50] LABS: Alanine Aminotransferase 29 IU/L (<50); Albumin 3.7 g/dL (3.5-5.0); Albumin Globulin Ratio 1.2 (1.0-2.8); Alkaline Phosphatase 72 U/L (38-126); Aspartate Aminotransferase 43 IU/L (17-59); BUN Creatinine Ratio 21.2 (6-22); Bilirubin Total 0.5 mg/dL (0.2-1.3); Blood Urea Nitrogen 29 mg/dL (9-20); Calcium 8.2 mg/dL (8.4-10.2); Carbon Dioxide 18 mmol/L (22-32); Chloride 110 mmol/L (98-107); Estimated Glomerular Filt Rate > 60 mL/min (>60); Globulin 3.1 g/dL (1.7-4.1); Glucose 301 mg/dL (70-100); HEMOLYSIS < 15 (0-50); Potassium 4.8 mmol/L (3.4-5.1); Sodium 135 mmol/L (137-145); Total Protein 6.8 g/dL (6.3-8.2)
== END ==
PROVIDERS: PCP Family Medicine; Referring Provider Nurse Practitioner; Visit Provider Nurse Practitioner
DX: C92.10 Chronic myeloid leukemia, BCR/ABL-positive, not having achieved remission (principal); Z51.11 Encounter for antineoplastic chemotherapy; G89.3 Neoplasm related pain (acute) (chronic)
CPT/HCPCS: 36415; 80053

== ENCOUNTER → 2024-02-14 13:15 | Outpatient (CLI) | payer OTHER, MEDICAID, SELFPAY ==
[2023-05-01 18:42] VITALS: BMI 19.0
[2024-02-14 14:46] LABS: Add Manual Diff / Slide Review NO; Basophils Absolute Auto 0 /uL (0-100); Basophils Percent Auto 0.2 % (0-2); Eosinophils Absolute Auto 0 /uL (0-450); Hematocrit 34.8 % (41-53); Hemoglobin 11.8 g/dL (13.5-17.5); Lymphocytes Absolute Auto 500 /uL (1100-4500); Lymphocytes Percent Auto 16.3 % (25-40); Mean Corpuscular Hemoglobin 33.6 PG (26-34); Mean Corpuscular Volume 98.9 fL (80-100); Monocytes Absolute Auto 300 /uL (0-900); Monocytes Percent Auto 7.7 % (3-14); Neutrophils Absolute Auto 2500 /uL (1500-7000); Neutrophils Percent Auto 74.8 % (50-75); Platelet Count 59 X10^3/uL (150-400); Red Blood Cell Count 3.52 X10^6/uL (4.5-5.9); Red Cell Distribution Width 14.6 % (11.6-14.8); White Blood Cell Count 3.4 X10^3/uL (4.5-11.0)
== END ==
LOC: LAB 13:18
PROVIDERS: PCP Family Medicine; Referring Provider Internal Medicine Hematology & Oncology; Visit Provider Internal Medicine Hematology & Oncology
DX: C92.10 Chronic myeloid leukemia, BCR/ABL-positive, not having achieved remission (principal); Z51.11 Encounter for antineoplastic chemotherapy; G89.3 Neoplasm related pain (acute) (chronic)
CPT/HCPCS: 36415; 81206; 81207; 85025

== ENCOUNTER → 2024-04-27 10:00 | Outpatient (CLI) | payer OTHER, SELFPAY ==
[2023-05-01 18:42] VITALS: BMI 19.0
[2024-04-27 10:47] LABS: Add Manual Diff / Slide Review NO; Basophils Absolute Auto 0 /uL (0-100); Basophils Percent Auto 0.2 % (0-2); Eosinophils Absolute Auto 100 /uL (0-450); Eosinophils Percent Auto 1.9 % (2-4); Hematocrit 36.7 % (41-53); Hemoglobin 12.2 g/dL (13.5-17.5); Lymphocytes Absolute Auto 700 /uL (1100-4500); Lymphocytes Percent Auto 19.5 % (25-40); Mean Corpuscular HGB Conc 33.1 % (30-36); Mean Corpuscular Volume 99.7 fL (80-100); Monocytes Absolute Auto 200 /uL (0-900); Monocytes Percent Auto 5.6 % (3-14); Neutrophils Absolute Auto 2800 /uL (1500-7000); Neutrophils Percent Auto 72.8 % (50-75); Platelet Count 83 X10^3/uL (150-400); Red Blood Cell Count 3.68 X10^6/uL (4.5-5.9); Red Cell Distribution Width 14.1 % (11.6-14.8); White Blood Cell Count 3.8 X10^3/uL (4.5-11.0)
== END ==
PROVIDERS: PCP Family Medicine; Referring Provider Nurse Practitioner; Visit Provider Nurse Practitioner
DX: Z51.11 Encounter for antineoplastic chemotherapy (principal); C92.10 Chronic myeloid leukemia, BCR/ABL-positive, not having achieved remission; G89.3 Neoplasm related pain (acute) (chronic)
CPT/HCPCS: 36415; 81206; 81207; 85025

== ENCOUNTER → 2024-07-04 11:58 | Outpatient (CLI) | payer OTHER, SELFPAY ==
[2023-05-01 18:42] VITALS: BMI 19.0
== END ==
PROVIDERS: PCP Family Medicine; Referring Provider Family Medicine; Visit Provider Surgery
DX: E11.621 Type 2 diabetes mellitus with foot ulcer (principal); L97.516 Non-pressure chronic ulcer of other part of right foot with bone involvement without evidence of necrosis; L97.522 Non-pressure chronic ulcer of other part of left foot with fat layer exposed; L84 Corns and callosities; R60.0 Localized edema; L53.8 Other specified erythematous conditions
CPT/HCPCS: 11042; 87070; 87075; 87205; 99214

== ENCOUNTER → 2024-07-05 13:26 | Outpatient (CLI) | payer OTHER, SELFPAY ==
[2023-05-01 18:42] VITALS: BMI 19.0
--- NOTE | 2024-07-05 13:28 | DI.RAD.S_ITS ---
PROCEDURE: XR FOOT LT MIN 3V INDICATIONS: DFU of Lt plantar foot, eval for osteo TECHNIQUE: 3 views of the foot were acquired. COMPARISON: [facility], CR, XR FOOT RT MIN 3V, 03/18/2023, 13:03. [facility], CR, XR FOOT LT MIN 3V, 04/02/2022, 10:00. FINDINGS AND IMPRESSION: Soft tissue swelling and ulceration seen adjacent to the 5th MTP joint. Mildly heterogeneous marrow is seen at the base of the 5th proximal phalanx. There are also adjacent small periarticular calcifications. Findings could represent reactive changes versus early osteomyelitis. MRI could further evaluate if clinically necessary. Moderate plantar enthesopathy. Partially seen lesion in the distal tibia is stable. Dictated by: Orlando Knutson M.D. on 07/05/2024 at 16:45 Approved by: Orlando Knutson M.D. on 07/05/2024 at 16:47
--- NOTE | 2024-07-05 13:28 | DI.RAD.S_ITS ---
PROCEDURE: XR FOOT RT MIN 3V INDICATIONS: DFU of Rt plantar foot, eval for osteo TECHNIQUE: 3 views of the foot were acquired. COMPARISON: [facility], CR, XR FOOT RT MIN 3V, 03/18/2023, 13:03. [facility], CR, XR FOOT LT MIN 3V, 04/02/2022, 10:00. FINDINGS AND IMPRESSION: Chronic deformity of the 5th ray and 5th distal metatarsal is similar to prior. Moderate plantar enthesopathy. Mild 1st MTP arthrosis with slight valgus alignment, similar. No obvious radiographic erosions. Small indeterminate soft tissue densities are seen below the metatarsal heads on lateral view. If there is high concern for further derangement, consider MRI evaluation. Dictated by: Orlando Knutson M.D. on 07/05/2024 at 16:47 Approved by: Orlando Knutson M.D. on 07/05/2024 at 16:50
[2024-07-05 14:52] LABS: Add Manual Diff / Slide Review NO; Basophils Absolute Auto 0 /uL (0-100); Basophils Percent Auto 0.2 % (0-2); Eosinophils Absolute Auto 0 /uL (0-450); Eosinophils Percent Auto 1.1 % (2-4); Hematocrit 32.2 % (41-53); Hemoglobin 10.8 g/dL (13.5-17.5); Lymphocytes Absolute Auto 400 /uL (1100-4500); Lymphocytes Percent Auto 12.4 % (25-40); Mean Corpuscular HGB Conc 33.5 % (30-36); Mean Corpuscular Hemoglobin 33.4 PG (26-34); Mean Corpuscular Volume 99.8 fL (80-100); Monocytes Absolute Auto 200 /uL (0-900); Monocytes Percent Auto 8.4 % (3-14); Neutrophils Absolute Auto 2300 /uL (1500-7000); Neutrophils Percent Auto 77.9 % (50-75); Platelet Count 77 X10^3/uL (150-400); Red Blood Cell Count 3.23 X10^6/uL (4.5-5.9); White Blood Cell Count 2.9 X10^3/uL (4.5-11.0)
[2024-07-05 15:11] LABS: Erythrocyte Sedimentation Rate 49 MM/HR (0-15)
[2024-07-05 15:15] LABS: Hemoglobin A1C% w Est Avg Glu 5.1 % (4.0-6.0)
[2024-07-05 15:31] LABS: Alanine Aminotransferase 27 IU/L (<50); Albumin 4.2 g/dL (3.5-5.0); Albumin Globulin Ratio 1.6 (1.0-2.8); Alkaline Phosphatase 64 U/L (38-126); Aspartate Aminotransferase 40 IU/L (17-59); BUN Creatinine Ratio 19.6 (6-22); Bilirubin Total 0.5 mg/dL (0.2-1.3); Blood Urea Nitrogen 30 mg/dL (9-20); C-Reactive Protein Quant < 0.5 mg/dL (<1.0); Calcium 8.3 mg/dL (8.4-10.2); Carbon Dioxide 15 mmol/L (22-32); Chloride 109 mmol/L (98-107); Estimated Glomerular Filt Rate 56 mL/min (>60); Globulin 2.6 g/dL (1.7-4.1); Glucose 242 mg/dL (70-100); HEMOLYSIS < 15 (0-50); Sodium 138 mmol/L (137-145); Total Protein 6.8 g/dL (6.3-8.2)
[2024-07-05 15:34] LABS: Potassium 5.6 mmol/L (3.4-5.1)
== END ==
PROVIDERS: PCP Family Medicine; Referring Provider Surgery; Visit Provider Surgery
DX: E11.621 Type 2 diabetes mellitus with foot ulcer (principal); L97.429 Non-pressure chronic ulcer of left heel and midfoot with unspecified severity; L97.419 Non-pressure chronic ulcer of right heel and midfoot with unspecified severity; L97.516 Non-pressure chronic ulcer of other part of right foot with bone involvement without evidence of necrosis; L97.522 Non-pressure chronic ulcer of other part of left foot with fat layer exposed; L84 Corns and callosities; R60.0 Localized edema; L53.8 Other specified erythematous conditions
CPT/HCPCS: 36415; 73630; 80053; 83036; 85025; 85651; 86140; 99213

== ENCOUNTER → 2024-07-05 14:47 | Outpatient (CLI) | payer OTHER, SELFPAY ==
[2023-05-01 18:42] VITALS: BMI 19.0
== END ==
PROVIDERS: PCP Family Medicine; Referring Provider Family Medicine; Visit Provider Surgery
DX: E11.621 Type 2 diabetes mellitus with foot ulcer (principal); L97.516 Non-pressure chronic ulcer of other part of right foot with bone involvement without evidence of necrosis; L97.522 Non-pressure chronic ulcer of other part of left foot with fat layer exposed; L84 Corns and callosities; R60.0 Localized edema; L53.8 Other specified erythematous conditions
CPT/HCPCS: 99213

== ENCOUNTER → 2024-07-10 14:22 | Outpatient (CLI) | payer OTHER, SELFPAY ==
[2023-05-01 18:42] VITALS: BMI 19.0
== END ==
PROVIDERS: PCP Family Medicine; Referring Provider Family Medicine; Visit Provider Surgery
DX: E11.621 Type 2 diabetes mellitus with foot ulcer (principal); L97.512 Non-pressure chronic ulcer of other part of right foot with fat layer exposed; L97.522 Non-pressure chronic ulcer of other part of left foot with fat layer exposed; L84 Corns and callosities; R60.0 Localized edema
CPT/HCPCS: 11042; 99213

== ENCOUNTER → 2024-07-25 09:46 | Outpatient (CLI) | payer OTHER, SELFPAY ==
[2023-05-01 18:42] VITALS: BMI 19.0
== END ==
PROVIDERS: PCP Family Medicine; Referring Provider Family Medicine; Visit Provider Surgery
DX: E11.621 Type 2 diabetes mellitus with foot ulcer (principal); L97.516 Non-pressure chronic ulcer of other part of right foot with bone involvement without evidence of necrosis; R60.0 Localized edema; L84 Corns and callosities; E11.40 Type 2 diabetes mellitus with diabetic neuropathy, unspecified; F15.10 Other stimulant abuse, uncomplicated
CPT/HCPCS: 11042

== ENCOUNTER → 2024-08-01 11:43 | Outpatient (CLI) | payer OTHER, SELFPAY ==
[2023-05-01 18:42] VITALS: BMI 19.0
--- NOTE | 2024-08-01 11:45 | DI.MRI.S_ITS ---
PROCEDURE: MR FOOT LT WO/W CON INDICATIONS: non-healing diabetic foot ulcer on left 5th metatarsal head TECHNIQUE: Noncontrast coronal T1 spin echo and STIR, sagittal T1 spin echo with fat saturation and STIR, axial T1 spin echo and T2 fast spin echo with fat saturation. After the administration of contrast, axial/sagittal/coronal T1 spin echo with fat saturation through the left foot . COMPARISON: , CR, XR FOOT LT MIN 3V, 07/05/2024, 13:39. , MR, MR FOOT RT WO/W CON, 08/01/2024, 12:03. FINDINGS: Image quality: Excellent. Bones: There is marrow edema involving 5th metatarsal head and neck. Marrow edema involving adjacent 5th proximal phalangeal base is also seen. There is contrast enhancement in the above-mentioned area of edema. No fracture or dislocation. No metatarsal stress fractures. No suspicious bony lesions. No other area of abnormal marrow signal or enhancement. Soft tissues: There is ulceration involving plantar aspect of forefoot at the level of 5th MTP joint and 5th metatarsal head with surrounding soft tissue edema and swelling and mild contrast enhancement in this area. No discrete drainable abscess collection. T2 hyperintense signal in visualized plantar foot muscles is seen suggestive of mild myositis. No area of abnormal intramuscular enhancement. Extensor and flexor tendons are grossly intact. Lisfranc ligament is intact. IMPRESSION: 1. Ulceration over plantar aspect of 5th toe at the level of 5th MTP joint with significant cellulitis in plantar and lateral aspect of forefoot. No discrete drainable abscess collection. 2. Mild myositis in visualized plantar foot muscles without abnormal intramuscular enhancement or drainable fluid collection. 3. Finding is suggestive of osteomyelitis involving 5th metatarsal head and adjacent 5th proximal phalangeal base. No fracture or dislocation. No other area of abnormal marrow signal or enhancement. Dictated by: Mk Cordero M.D. on 08/01/2024 at 21:12 Approved by: Mk Cordero M.D. on 08/01/2024 at 21:16
--- NOTE | 2024-08-01 11:45 | DI.MRI.S_ITS ---
PROCEDURE: MR FOOT RT WO/W CON INDICATIONS: diabetic ulcer on right 3rd metatarsal head plantar TECHNIQUE: Noncontrast coronal T1 spin echo and STIR, sagittal T1 spin echo with fat saturation and STIR, axial T1 spin echo and T2 fast spin echo with fat saturation. After the administration of contrast, axial/sagittal/coronal T1 spin echo with fat saturation through the right foot. COMPARISON: [facility], CR, XR FOOT RT MIN 3V, 07/22/2021, 9:50. [facility], MR, MR FOOT RT WO/W CON, 11/18/2021, 13:34. FINDINGS: Image quality: Excellent. Bones: Examination of midfoot and forefoot shows no marrow edema. No acute fracture or dislocation. No metatarsal stress fractures. There is dorsiflexion at 5th MTP joint with chronic likely posttraumatic severe osteoarthritic changes noted at 5th MTP joint. No bony erosive changes are noted. Soft tissues: Ulceration over plantar aspect of 3rd toe at the level of 3rd MTP joint is seen with surrounding soft tissue edema and swelling. Mild soft tissue enhancement in this area is also noted. No discrete drainable peripherally enhancing fluid collection. Visualized plantar foot muscles show normal size and signal. No area of abnormal intramuscular enhancement. There is thickening of the flexor tendon along plantar aspect of 3rd MTP joint and 3rd metatarsal head and neck with mild surrounding soft tissue edema. Rest of the extensor and flexor tendons are intact. Principal Lisfranc ligament is intact. IMPRESSION: 1. Ulceration involving plantar aspect of forefoot at the level of 3rd MTP joint with underlying soft tissue edema and swelling with mild contrast enhancement consistent with cellulitis. No discrete drainable abscess collection. 2. 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 No acute fracture or dislocation. No evidence of osteomyelitis. No area of abnormal intraosseous enhancement. 3. Tendinosis involving flexor tendon of the 3rd toe at the level of 3rd MTP joint and 3rd metatarsal head and neck. Rest of the extensor and flexor tendons are intact. Dictated by: Mk Cordero M.D. on 08/01/2024 at 21:07 Approved by: Mk Cordero M.D. on 08/01/2024 at 21:12
== END ==
PROVIDERS: PCP Family Medicine; Referring Provider Surgery; Visit Provider Surgery
DX: E11.621 Type 2 diabetes mellitus with foot ulcer (principal); L97.419 Non-pressure chronic ulcer of right heel and midfoot with unspecified severity; L97.429 Non-pressure chronic ulcer of left heel and midfoot with unspecified severity; L03.116 Cellulitis of left lower limb; M60.872 Other myositis, left ankle and foot
CPT/HCPCS: 73720; A9579

== ENCOUNTER 2024-08-08 18:57 | Observation (INO) | payer OTHER, SELFPAY ==
[2023-05-01 18:42] VITALS: BMI 19.0
[2024-08-08 19:04] VITALS: BP 151/93; PULSE 88; RESP 18; TEMP 36.8; O2SAT 98; BMI 19.5
[2024-08-08 19:52] LABS: Add Manual Diff / Slide Review NO; Basophils Absolute Auto 0 /uL (0-100); Basophils Percent Auto 0.3 % (0-2); Eosinophils Absolute Auto 100 /uL (0-450); Eosinophils Percent Auto 1.9 % (2-4); Hematocrit 32.5 % (41-53); Hemoglobin 11.3 g/dL (13.5-17.5); Lymphocytes Absolute Auto 1000 /uL (1100-4500); Lymphocytes Percent Auto 26.5 % (25-40); Mean Corpuscular HGB Conc 34.8 % (30-36); Mean Corpuscular Hemoglobin 34.6 PG (26-34); Mean Corpuscular Volume 99.5 fL (80-100); Monocytes Absolute Auto 300 /uL (0-900); Monocytes Percent Auto 6.9 % (3-14); Neutrophils Absolute Auto 2400 /uL (1500-7000); Neutrophils Percent Auto 64.4 % (50-75); Platelet Count 66 X10^3/uL (150-400); Red Blood Cell Count 3.27 X10^6/uL (4.5-5.9); White Blood Cell Count 3.8 X10^3/uL (4.5-11.0)
[2024-08-08 20:05] LABS: Alanine Aminotransferase 49 IU/L (<50); Albumin 4.4 g/dL (3.5-5.0); Albumin Globulin Ratio 1.7 (1.0-2.8); Alkaline Phosphatase 52 U/L (38-126); Aspartate Aminotransferase 69 IU/L (17-59); BUN Creatinine Ratio 19.5 (6-22); Bilirubin Total 0.4 mg/dL (0.2-1.3); Blood Urea Nitrogen 29 mg/dL (9-20); Calcium 8.4 mg/dL (8.4-10.2); Carbon Dioxide 16 mmol/L (22-32); Chloride 112 mmol/L (98-107); Estimated Glomerular Filt Rate 58 mL/min (>60); Globulin 2.6 g/dL (1.7-4.1); Glucose 119 mg/dL (70-99); HEMOLYSIS < 15 (0-50); Lipase 19 U/L (23-300); Potassium 4.6 mmol/L (3.4-5.1); Sodium 142 mmol/L (137-145)
[2024-08-08 22:47] VITALS: BP 169/101; PULSE 83; O2SAT 99
[2024-08-08 22:56] VITALS: BP 167/119; PULSE 88; O2SAT 99
[2024-08-08 22:59] VITALS: PULSE 82; RESP 28; O2SAT 99
[2024-08-08 23:00] VITALS: BP 165/102; PULSE 81; RESP 18; O2SAT 98
[2024-08-08 23:30] VITALS: BP 155/93; PULSE 81; RESP 15; O2SAT 99
[2024-08-09] VITALS (23 sets, daily range): BP systolic 129–191; BP diastolic 80–106; PULSE 69–91; RESP 8–20; TEMP 36.4–37.3; O2SAT 93–99; BMI 19.5
[2024-08-09] MEDS: ONDANSETRON 4 MG/2 ML INJ IV (00:05)
[2024-08-09] MEDS: HYDROMORPHONE 1 MG INJ IV (00:05)
[2024-08-09] MEDS: DEXTROSE 5%-LACTATED RINGERS 1,000 ML 100 ML IV (01:21)
[2024-08-09] MEDS: SODIUM CHLORIDE 0.9% 1,000 ML 1000 ML IV (02:02)
--- NOTE | 2024-08-09 02:22 | ED.GENADULT ---
HPI - General Adult General Chief complaint: Weakness Stated complaint: General weakness, Type I DM Time Seen by Provider: 08/09/24 01:29 History of Present Illness HPI narrative: 48-year-old male with complaint of generalized weakness. History of diabetes, bilateral plantar foot ulcers followed by wound care clinic, he had outpatient MRI 08/01/2024 study through wound care, and was told that he had bone infection, now presenting here for possible IV antibiotics. He also complains of right-sided abdominal pain, no trauma injury, prior remote appendectomy, no painful urination or frequency of urination, no diarrhea or black or red stools. Some nausea without emesis. Denies chest pain shortness of breath. Related Data Home Medications Medication Instructions Recorded Confirmed dasatinib 100 mg tablet (Sprycel) 100 mg PO DAILY 05/11/22 08/09/24 albuterol sulfate 2.5 mg/3 mL 2.5 mg inhalation 4XD PRN wheezing 05/01/23 08/09/24 (0.083 %) solution for nebulization insulin glargine 100 unit/mL (3 8 unit SUBCUT DAILY 08/09/24 08/09/24 mL) subcutaneous pen (Lantus Solostar U-100 Insulin) lorazepam 1 mg tablet 1 mg PO Q6H PRN anxiety 08/09/24 08/09/24 pregabalin 25 mg capsule 25 mg PO 3XD 08/09/24 08/09/24 Previous Rx's Medication Instructions Recorded BD U/F Hilda Pen Needle [id number] #100 ea 06/13/18 insulin lispro 100 unit/mL 1 - 12 unit (0.01 - 0.12 mL) 05/11/22 subcutaneous pen (Humalog KwikPen SUBCUT TIDCC #1 ea (U-100) Insulin) glucagon HCl 1 mg solution for 1 mg SUBCUT Q20M PRN hypoglycemia 10/23/22 injection (Glucagon (HCl) #2 ea Emergency Kit) blood-glucose transmitter (Dexcom #1 ea 11/06/22 G6 Transmitter device) blood-glucose sensor (Dexcom G6 #3 ea 06/14/23 Sensor device) Allergies Allergy/AdvReac Type Severity Reaction Status Date / Time adhesive Allergy Intermediate rash, skin Verified 03/18/23 13:21 tear latex [LATEX] Allergy Unknown rash, skin Verified 12/07/23 13:21 tear Patient History Medical History Ataxia Cervical radiculopathy Cervicalgia Cancer of blood vessel Pancytopenia Chronic, continuous use of opioids Central cord syndrome at C3 level of cervical spinal cord Thrombocytopenia Alcoholism Insulin dependent diabetes mellitus CML (chronic myelocytic leukemia) Surgical History Status post appendectomy Family History Grandfather Diabetes mellitus Mother Cancer History of heart disease Father Hyperlipidemia History of heart disease Social History household members: none Smoking Status: Former smoker Tobacco: How many years used: 10 Smokeless tobacco user: chewing tobacco (current ) quit status: considering quitting alcohol intake: former substance use type: former substance user, marijuana and opiates tobacco type: cigarettes and smokeless tobacco alcohol intake frequency: 3 or more drinks per day Alcohol type: beer Exam Narrative Exam Narrative: GENERAL: Well-developed patient, in mild distress. HEAD: Atraumatic. Normocephalic. EYES: Pupils equal round and reactive. Extraocular motions intact. No scleral icterus. No injection or drainage. ENT: Nose without bleeding, purulent drainage. Throat without erythema, tonsillar hypertrophy or exudate. Airway patent. NECK: Trachea midline. Non tender CARDIOVASCULAR: Regular rate and rhythm without murmurs, gallops, or rubs. RESPIRATORY: Clear to auscultation. Breath sounds equal bilaterally. No wheezes, rales, or rhonchi. GASTROINTESTINAL: Abdomen nondistended, with right lower quadrant tenderness to palpation, no tinkles or rushes EXTREMITIES: No edema or joint tenderness. BACK: Nontender without deformity or crepitance. No flank tenderness. NEURO: AOx3. Motor functions grossly nonfocal. SKIN: No rash or erythema of visible areas Initial Vital Signs Initial Vital Signs: Vital Signs Temperature 98.2 F 08/08/24 19:04 Pulse Rate 88 08/08/24 19:04 Respiratory Rate 18 08/08/24 19:04 Blood Pressure 151/93 H 08/08/24 19:04 Pulse Oximetry 98 08/08/24 19:04 Oxygen Delivery Method Room Air 08/08/24 19:04 Course Orders Ordered: ED Orders 08/10/24 06:00 Basic Metabolic Panel Routine Complete Blood Count AUTO DIFF Routine Acetaminophen (Acetaminophen 325 Mg Tablet) 650 mg PO Q6H PRN PRN Reason: Fever/Mild Pain (1-3) Heparin Sodium (Porcine) (Heparin 5,000 Unit/Ml Vial) 5,000 unit SUBCUT BID [facility] Last Admin: 08/09/24 10:11 Dose: 5,000 unit Documented By: SCOTT Sodium Chloride (Normal Saline 0.9%) 1,000 mls @ 75 mls/hr IV CONT [facility] Last Admin: 08/09/24 05:15 Dose: 75 mls/hr Documented By: JALEESA Piperacillin Sod/Tazobactam (Sod 3.375 gm/ Sodium Chloride) 100 mls @ 25 mls/hr IV Q8H [facility] Last Infusion: 08/09/24 14:58 Dose: Infused Documented By: Admin: 08/09/24 10:11 Dose: 25 mls/hr Documented By: SCOTT Vancomycin HCl 1,000 mg/ (Sodium Chloride) 250 mls @ 250 mls/hr IV Q12H [facility] Dextrose (D10w) 100 mls @ 999 mls/hr IV PRN PRN PRN Reason: Hypoglycemia Insulin Glargine (Insulin Glargine 100 Unit/Ml 3ml Pen) 8 unit SUBCUT 0800 [facility] Insulin Human Lispro (Insulin Lispro 100 Unit/Ml 3ml Vial) 0 unit SUBCUT ACHS [facility]; Protocol Lorazepam (Lorazepam 1 Mg Tablet) 1 mg PO Q6H PRN PRN Reason: anxiety Last Admin: 08/09/24 12:00 Dose: 1 mg Documented By: SCOTT Naloxone HCl (Naloxone 0.4 Mg/Ml Vial) 0.2 mg IV Q2MIN PRN PRN Reason: Opiate Reversal Oxycodone HCl (Oxycodone Ir 5 Mg Tablet) 5 mg PO Q4HR PRN PRN Reason: Pain, Moderate (4-6) Last Admin: 08/09/24 15:01 Dose: 5 mg Documented By: Admin: 08/09/24 10:44 Dose: 5 mg Documented By: SCOTT Pregabalin (Pregabalin 25 Mg Capsule) 25 mg PO TID [facility] Vancomycin HCl (Vancomycin Per Pharmacy) 1 request MIS NOW PRN PRN Reason: osteomyelitis Vancomycin HCl (Vancomycin Trough) 1 [place] [facility] [place] [facility] Stop: 08/10/24 16:31 Vancomycin HCl (Vancomycin Peak) 1 [place] [facility] [place] [facility] Stop: 08/23/24 19:01 Discontinued Medications Hydrocodone Bitart/Acetaminophen (Hydrocodone/Acet 5/325 Tablet) 1 tab PO Q4H PRN PRN Reason: Pain, Moderate (4-6) Last Admin: 08/09/24 07:39 Dose: 1 tab Documented By: YAMILET Hydromorphone HCl (Hydromorphone 1 Mg Inj) 1 mg IV NOW ONE Stop: 08/08/24 23:37 Last Admin: 08/09/24 00:05 Dose: 1 mg Documented By: CT Hydromorphone HCl (Hydromorphone 0.5 Mg Inj) 0.5 mg IV NOW ONE Stop: 08/09/24 04:04 Last Admin: 08/09/24 05:09 Dose: 0.5 mg Documented By: CT Dextrose/Lactated Ringer's (Dextrose 5%-Lactated Ringers) 1,000 mls @ 100 mls/hr IV CONT [facility] Last Infusion: 08/09/24 05:15 Dose: Infused Documented By: Infusion: 08/09/24 03:23 Dose: 100 mls/hr Documented By: Infusion: 08/09/24 02:54 Dose: 0 mls/hr Documented By: RLOsmani Admin: 08/09/24 01:21 Dose: 100 mls/hr Documented By: CT Sodium Chloride (Normal Saline 0.9%) 1,000 mls @ 1,000 mls/hr IV BOLUS ONE Stop: 08/09/24 02:29 Last Infusion: 08/09/24 02:53 Dose: Infused Documented By: RLOsmani Admin: 08/09/24 02:02 Dose: 1,000 mls/hr Documented By: DKAmadou Piperacillin Sod/Tazobactam (Sod 4.5 gm/ Sodium Chloride) 100 mls @ 200 mls/hr IV NOW ONE Stop: 08/09/24 03:43 Last Infusion: 08/09/24 08:07 Dose: Infused Documented By: Admin: 08/09/24 05:05 Dose: 200 mls/hr Documented By: CT Vancomycin HCl/Dextrose (Vancomycin) 1,500 mg in 300 mls @ 200 mls/hr IV NOW ONE Stop: 08/09/24 05:44 Last Admin: 08/09/24 05:05 Dose: 200 mls/hr Documented By: CT Piperacillin Sod/Tazobactam (Sod 3.375 gm/ Sodium Chloride) 100 mls @ 25 mls/hr IV Q8H [facility] Last Admin: 08/09/24 05:04 Dose: Not Given Documented By: RLC Vancomycin HCl (Vancomycin) 1,250 mg in 250 mls @ 125 mls/hr IV Q24H [facility] Ketorolac Tromethamine (Ketorolac 30 Mg/Ml Vial) 15 mg IV NOW ONE Stop: 08/09/24 03:54 Last Admin: 08/09/24 05:06 Dose: 15 mg Documented By: CT Ondansetron HCl (Ondansetron 4 Mg/2 Ml Inj) 4 mg IV NOW ONE Stop: 08/08/24 23:35 Last Admin: 08/09/24 00:05 Dose: 4 mg Documented By: CT Vital Signs Vital signs: Vital Signs - 8 hr 08/08/24 22:47 08/08/24 22:47 08/08/24 22:56 Pulse Rate 83 Respiratory Rate Blood Pressure 169/101 H 167/119 H Pulse Oximetry 99 08/08/24 22:56 08/08/24 22:59 08/08/24 23:00 Pulse Rate 88 82 Respiratory Rate 28 H Blood Pressure 165/102 H Pulse Oximetry 99 99 08/08/24 23:00 08/08/24 23:30 08/08/24 23:30 Pulse Rate 81 81 Respiratory Rate 18 15 Blood Pressure 155/93 H Pulse Oximetry 98 99 08/09/24 00:00 08/09/24 00:00 08/09/24 00:30 Pulse Rate 76 78 Respiratory Rate 16 12 Blood Pressure 140/87 Pulse Oximetry 99 98 08/09/24 00:30 08/09/24 01:00 08/09/24 01:00 Pulse Rate 78 Respiratory Rate 13 Blood Pressure 138/80 137/82 Pulse Oximetry 97 08/09/24 01:30 08/09/24 01:30 08/09/24 02:00 Pulse Rate 76 Respiratory Rate 12 Blood Pressure 129/80 131/85 Pulse Oximetry 97 08/09/24 02:00 08/09/24 02:30 08/09/24 02:30 Pulse Rate 77 87 Respiratory Rate 10 L 20 Blood Pressure 187/106 H Pulse Oximetry 97 99 08/09/24 03:13 08/09/24 03:30 08/09/24 03:56 Pulse Rate 77 82 80 Respiratory Rate 12 15 Blood Pressure Pulse Oximetry 98 99 99 08/09/24 03:57 Pulse Rate Respiratory Rate Blood Pressure 178/106 H Pulse Oximetry Medical Decision Making Lab Data 08/09/24 12:10 08/09/24 12:10 Labs: Lab Results 08/08/24 08/09/24 Range/Units 19:44 02:38 WBC 3.8 L (4.5-11.0) X10^3/uL RBC 3.27 L (4.5-5.9) X10^6/uL Hgb 11.3 L (13.5-17.5) g/dL Hct 32.5 L (41-53) % MCV 99.5 (80-100) fL MCH 34.6 H (26-34) PG MCHC 34.8 (30-36) % RDW 14.0 (11.6-14.8) % Plt Count 66 L (150-400) X10^3/uL Neut % (Auto) 64.4 (50-75) % Lymph % (Auto) 26.5 (25-40) % Schley % (Auto) 6.9 (3-14) % Eos % (Auto) 1.9 L (2-4) % Baso % (Auto) 0.3 (0-2) % Neut # (Auto) 2400 (1357-9717) /uL Lymph # (Auto) 1000 L (8534-8458) /uL Schley # (Auto) 300 (0-900) /uL Eos # (Auto) 100 (0-450) /uL Baso # (Auto) 0 (0-100) /uL Sodium 142 (137-145) mmol/L Potassium 4.6 (3.4-5.1) mmol/L Chloride 112 H (98-107) mmol/L Carbon Dioxide 16 L (22-32) mmol/L BUN 29 H (9-20) mg/dL Creatinine 1.49 H (0.66-1.25) mg/dL Estimated GFR 58 L (>60) mL/min BUN/Creatinine Ratio 19.5 (6-22) Glucose 119 H (70-99) mg/dL Calcium 8.4 (8.4-10.2) mg/dL Total Bilirubin 0.4 (0.2-1.3) mg/dL AST 69 H (17-59) IU/L ALT 49 (<50) IU/L Alkaline Phosphatase 52 (38-126) U/L C-Reactive Protein < 0.5 (<1.0) mg/dL Total Protein 7.0 (6.3-8.2) g/dL Albumin 4.4 (3.5-5.0) g/dL Globulin 2.6 (1.7-4.1) g/dL Albumin/Globulin Ratio 1.7 (1.0-2.8) Lipase 19 L (23-300) U/L Urine Color Yellow Urine Appearance Clear Urine pH 5.5 (4.5-8.0) Ur Specific [place] 1.020 (1.000-1.035) Urine Protein Trace H (Negative) Urine Glucose (UA) Negative (Negative) g/dL Urine Ketones Negative (NEGATIVE) Urine Occult Blood 3+ H (Negative) Urine Nitrate Negative (Negative) Urine Bilirubin Negative (NEGATIVE) Urine Urobilinogen 0.2 (0.2) E.U./dL Ur Leukocyte Esterase Negative (NEGATIVE) Urine RBC 10-30/hpf H (0-5/HPF) Urine WBC None seen (0-5/HPF) Ur Squamous Epith Cells 1-5 /hpf (0-5/HPF) Urine Bacteria None seen (None) Ur Culture Indicated? Cult not indicated Vol Urine Centrifuged 10ml (spun) Point of Care Testing Glucose POC 263 Urine Dip Bedside Urine Glucose Negative Bedside Urine Bilirubin - Negative Bedside Urine Ketone - Negative Urine Specific [place] 1.015 Bedside Urine Occult Blood +++ Bedside Urine pH 5.5 Bedside Urine Protein +/- 15 Bedside Urine Urobilinogen - Negative Bedside Urine Nitrite - Negative Bedside Urine Leukocytes - Negative Esterase Point of care testing: Point of Care Testing Glucose POC 263 Urine Dip Bedside Urine Glucose Negative Bedside Urine Bilirubin - Negative Bedside Urine Ketone - Negative Urine Specific [place] 1.015 Bedside Urine Occult Blood +++ Bedside Urine pH 5.5 Bedside Urine Protein +/- 15 Bedside Urine Urobilinogen - Negative Bedside Urine Nitrite - Negative Bedside Urine Leukocytes - Negative Esterase MDM Narrative Medical decision making narrative: 48-year-old male with history of diabetes complains of generalized weakness. Says that he has recent diagnosis of right foot bone infection and was told to start IV antibiotics. He also on review of systems seems to have right-sided abdominal pain since yesterday, on exam has some tenderness right lower quadrant, history of prior appendectomy. Afebrile, sirs screen negative. Labs pending. We will query imaging for MRI reports of lower extremities. On examination has plantar wound right foot MTP 3 and 4 without expressible fluid or significant swelling or redness surrounding. He also has callus in very shallow small ulcer over the plantar aspect left 5th MTP. Records review. Outpatient MRI right foot without and with contrast study dated 08/01/24. Impressions: ?Ulceration involving plantar aspect forefoot of the level of the 3rd MTP joint with underlying soft tissue edema and swelling with mild contrast enhancement consistent with cellulitis. No discrete drainable abscess collection. 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 No acute fracture or ulceration. No evidence of osteomyelitis. No area of abnormal interosseous enhancement. Tendinosis involving flexor tendon of the 3rd toe at the level of the 3rd MTP joint and 3rd metatarsal head and neck. Rest of the extensor and flexor tendons are intact.See radiology report Records review. Outpatient MRI left foot without and with contrast study dated 08/01/24. Impressions: ?Ulceration over the plantar aspect of 5th toe at the level of the 5th MTP joint with significant cellulitis and plantar and lateral aspect of forefoot. No discrete drainable abscess collection. Mild myositis in visualized plantar foot muscles without abnormal intramuscular enhancement or drainable fluid collection. Findings suggestive of osteomyelitis involving 5th metatarsal head and adjacent 5th proximal phalangeal base. No fracture or dislocation. No other area of abnormal marrow signal or enhancement. ? See radiology report. Right foot pain with generalized malaise, recent diagnosis by MRI of left foot osteomyelitis. We will initiate blood cultures. IV vancomycin and IV Zosyn. He also has abdominal pain status post remote appendectomy, CT abdomen and pelvis results still pending, Zosyn we would likely cover most pathology findings intra-abdominal. Possible admission. IV vancomycin, IV Zosyn, for left foot osteomyelitis changes. CT abdomen and pelvis with IV contrast. Impressions: ?No evidence of colitis diverticulitis bowel obstruction or obstructive uropathy. Appendix is not seen. Large volume of stool within the colon compatible with constipation. Cholelithiasis. Incidental findings.. See tele radiology report. Case discussed with hospitalist Dr. Henriquez with orthopedics consulting. We will contact Dr. Kang. Case discussed with Orthopedic surgery Dr. Kang on-call who will consult as needed. Discharge Plan Departure Patient Disposition: Admitted As Inpatient Clinical Impression: Generalized weakness, Abdominal pain, Constipation, Acute osteomyelitis of left foot Admit Date/Time: 08/09/24 04:19 Admit Provider: Ben Henriquez
--- NOTE | 2024-08-09 02:36 | DI.CT.S_ITS ---
PROCEDURE: CT ABDOMEN PELVIS W CON INDICATIONS: RLQ abd pain TECHNIQUE: After the administration of intravenous contrast, axial sections acquired from the lung bases to the pubic symphysis. Coronal and sagittal reformats were performed. For radiation dose reduction, the following was used: automated exposure control, adjustment of mA and/or kV according to patient size. COMPARISON: [facility], CT, CT ABDOMEN PELVIS W CON, 04/15/2023, 4:31. FINDINGS: Image quality: Diagnostic. Lower Chest: No significant findings. ABDOMEN: Liver: No solid mass. Nodular contour to the liver. Recannulize paraumbilical vein. Gallbladder: Cholelithiasis without gallbladder wall thickening. Biliary ducts: No biliary dilation. Pancreas: Stable atrophic appearance with calcifications. Spleen: Enlarged measuring up to 14 cm Adrenal Glands: No adrenal nodules. Kidneys and Ureters: No hydronephrosis. No solid mass. No complex renal cystic lesion which requires follow up. Stomach and Bowel: Normal colonic caliber, without significant wall thickening. Large stool burden. The appendix is not seen. No right lower quadrant inflammation. Peritoneum: No abnormal intraperitoneal fluid. No free air. Ventral Wall: No significant ventral hernia. Abdominal Nodes: No retroperitoneal or mesenteric adenopathy by size criteria. Vessels: Aorta and inferior vena cava are normal in size. Splenic varices are noted. PELVIS: Pelvic Organs: Unremarkable. Bladder: No bladder wall thickening, accounting for underdistention. Pelvic Nodes: No enlarged lymph nodes. Miscellaneous: No inguinal hernias are seen. Bones: No aggressive osseous abnormality. Degenerative changes of the spine status post L4-5 fusion. IMPRESSION: 1. No acute findings within the abdomen or pelvis. 2. Large burden of stool, correlate for constipation. 3. Cholelithiasis without CT evidence of acute cholecystitis. 4. Hepatic cirrhosis with sequela of portal hypertension. 5. Please see above for additional findings. Findings are concordant with preliminary interpretation provided by [facility]. Dictated by: Silvestre Zuleta M.D. on 08/09/2024 at 8:25 Approved by: Silvestre Zuleta M.D. on 08/09/2024 at 8:32
[2024-08-09 02:54] LABS: C-Reactive Protein Quant < 0.5 mg/dL (<1.0)
[2024-08-09] MEDS: PIPERACILLIN/TAZO 4.5 GM in SODIUM CHLORIDE 0.9% 100 ML IV (05:05)
[2024-08-09] MEDS: VANCOMYCIN 1,500 MG/300 ML PIGGYBACK 200 MG IV (05:05)
[2024-08-09] MEDS: KETOROLAC 30 MG/ML VIAL 15 MG IV (05:06)
[2024-08-09] MEDS: HYDROMORPHONE 0.5 MG INJ IV (05:09)
[2024-08-09] MEDS: SODIUM CHLORIDE 0.9% 1,000 ML 75 ML IV (05:15)
--- NOTE | 2024-08-09 05:42 | P.HP_ITS ---
History of Present Illness History of Present Illness Chief complaint: General weakness, Type I DM Narrative: 48-year-old male with past medical history of insulin-dependent diabetes, asthma, depression anxiety presents with complaint of generalized weakness and foot infection. Of note the patient was seen as outpatient by wound care clinic on August 01, 2024. The patient does have chronic wound to his left foot. The patient was told that he had a bone infection today and that he would need to come into our ER for IV antibiotic. The patient also had some right-sided abdominal pain but denies any vomiting, diarrhea, GI bleed, fever or chills. The patient admitted to have some nausea. In mild emergency room, the patient was hemodynamically stable without any sign of sepsis. Patient WBC is 3.8. Creatinine 1.4 platelet 66. Based on the MRI that was done as outpatient there is concerning for left ostial myelitis of the left foot. Orthopedic was consulted and agreed that the patient to be admitted for IV antibiotic. Of note CT abdomen was done but shows no signs of acute finding other than cholelithiasis without cholecystitis. There is also signs of constipation. [facility] Medical History Ataxia Cervical radiculopathy Cervicalgia Cancer of blood vessel Pancytopenia Chronic, continuous use of opioids Central cord syndrome at C3 level of cervical spinal cord Thrombocytopenia Alcoholism Insulin dependent diabetes mellitus CML (chronic myelocytic leukemia) Surgical History Status post appendectomy Family History Grandfather Diabetes mellitus Mother Cancer History of heart disease Father Hyperlipidemia History of heart disease Social History household members: none Tobacco: How many years used: 10 Smokeless tobacco user: chewing tobacco (current ) quit status: considering quitting alcohol intake: former substance use type: former substance user, marijuana and opiates Meds Home Medications and Allergies Home Medications Medication Instructions Recorded Confirmed Type BD U/F Hilda Pen Needle [id number] #100 ea 06/13/18 05/01/23 Rx dasatinib 100 mg tablet (Sprycel) 100 mg PO DAILY 05/11/22 05/01/23 History insulin lispro 100 unit/mL 1 - 12 unit (0.01 - 0.12 mL) 05/11/22 05/01/23 Rx subcutaneous pen (Humalog KwikPen SUBCUT TIDCC #1 ea (U-100) Insulin) lactulose 10 gram/15 mL oral 15 ml PO DAILY #473 mL 05/11/22 05/01/23 Rx solution (Constulose) glucagon HCl 1 mg solution for 1 mg SUBCUT Q20M PRN hypoglycemia 10/23/22 05/01/23 Rx injection (Glucagon (HCl) #2 ea Emergency Kit) Lantus Solostar U-100 Insulin 100 20 unit (0.2 mL) SUBCUT DAILY #15 11/03/22 05/01/23 Rx unit/mL (3 mL) subcutaneous pen mL (insulin glargine) blood-glucose transmitter (Dexcom #1 ea 11/06/22 05/01/23 Rx G6 Transmitter device) torsemide 20 mg tablet 20 mg PO DAILY #30 tabs 04/15/23 05/01/23 Rx albuterol sulfate 2.5 mg/3 mL 2.5 mg inhalation 4XD PRN wheezing 05/01/23 05/01/23 History (0.083 %) solution for nebulization duloxetine 20 mg capsule,delayed 20 mg PO BID 05/01/23 05/01/23 History release hydroxyzine HCl 25 mg tablet 25 mg PO Q6H PRN itch 05/01/23 05/01/23 History lactulose 10 gram/15 mL oral 15 ml PO DAILY 05/01/23 05/01/23 History solution (Constulose) lactulose 10 gram/15 mL oral 15 ml PO DAILY 05/01/23 05/01/23 History solution (Constulose) metoclopramide HCl 10 mg tablet 10 mg PO 4XD 05/01/23 05/01/23 History blood-glucose sensor (Dexcom G6 #3 ea 06/14/23 Rx Sensor device) Allergies Allergy/AdvReac Type Severity Reaction Status Date / Time adhesive Allergy Intermediate rash, skin Verified 03/18/23 13:21 tear latex [LATEX] Allergy Unknown rash, skin Verified 03/18/23 13:21 tear Review of Systems Review of Systems ROS: Yes All systems reviewed with the patient and are negative except as otherwise documented Exam Vital Signs (past 8 hours): - 08/08/24 22:47 08/08/24 22:47 08/08/24 22:56 Pulse Rate 83 Respiratory Rate Blood Pressure 169/101 H 167/119 H Pulse Oximetry 99 08/08/24 22:56 08/08/24 22:59 08/08/24 23:00 Pulse Rate 88 82 Respiratory Rate 28 H Blood Pressure 165/102 H Pulse Oximetry 99 99 08/08/24 23:00 08/08/24 23:30 08/08/24 23:30 Pulse Rate 81 81 Respiratory Rate 18 15 Blood Pressure 155/93 H Pulse Oximetry 98 99 08/09/24 00:00 08/09/24 00:00 08/09/24 00:30 Pulse Rate 76 78 Respiratory Rate 16 12 Blood Pressure 140/87 Pulse Oximetry 99 98 08/09/24 00:30 08/09/24 01:00 08/09/24 01:00 Pulse Rate 78 Respiratory Rate 13 Blood Pressure 138/80 137/82 Pulse Oximetry 97 08/09/24 01:30 08/09/24 01:30 08/09/24 02:00 Pulse Rate 76 Respiratory Rate 12 Blood Pressure 129/80 131/85 Pulse Oximetry 97 08/09/24 02:00 08/09/24 02:30 08/09/24 02:30 Pulse Rate 77 87 Respiratory Rate 10 L 20 Blood Pressure 187/106 H Pulse Oximetry 97 99 08/09/24 03:13 08/09/24 03:30 08/09/24 03:56 Pulse Rate 77 82 80 Respiratory Rate 12 15 Blood Pressure Pulse Oximetry 98 99 99 08/09/24 03:57 08/09/24 03:57 08/09/24 04:00 Pulse Rate 82 Respiratory Rate 15 Blood Pressure 178/106 H 171/95 H Pulse Oximetry 99 08/09/24 04:00 08/09/24 04:30 08/09/24 04:30 Pulse Rate 77 72 Respiratory Rate 12 16 Blood Pressure 162/94 H Pulse Oximetry 98 98 Oxygen Delivery Method Room Air Narrative Exam Narrative: Physical Exam: GENERAL: The patient is not in any acute distressed. Awake and alert. HEENT: Nonicteric sclerae, PERRLA, EOMI. Oropharynx clear. Moist mucous membranes. Conjunctivae appear well perfused. HEART: Regular rate and rhythm without murmurs. No lower extremities edema. LUNGS: Clear to auscultation bilaterally. No wheezing, crackles or rhonchi ABDOMEN: Soft, positive bowel sounds, nontender. SKIN: Chronic wound noted on left toes/foot. Otherwise No rash, no excessive bruising, petechiae, or purpura. NEUROLOGIC: AxO x 3. Cranial nerves II-XII intact without motor/sensory deficit. Objective Labs 08/08/24 19:44 08/08/24 19:44 Labs: Laboratory Results - last 24 hr 08/08/24 19:44 WBC 3.8 L RBC 3.27 L Hgb 11.3 L Hct 32.5 L MCV 99.5 MCH 34.6 H MCHC 34.8 RDW 14.0 Plt Count 66 L Neut % (Auto) 64.4 Lymph % (Auto) 26.5 [place] % (Auto) 6.9 Eos % (Auto) 1.9 L Baso % (Auto) 0.3 Neut # (Auto) 2400 Lymph # (Auto) 1000 L [place] # (Auto) 300 Eos # (Auto) 100 Baso # (Auto) 0 Sodium 142 Potassium 4.6 Chloride 112 H Carbon Dioxide 16 L BUN 29 H Creatinine 1.49 H Estimated GFR 58 L BUN/Creatinine Ratio 19.5 Glucose 119 H Calcium 8.4 Total Bilirubin 0.4 AST 69 H ALT 49 Alkaline Phosphatase 52 C-Reactive Protein < 0.5 Total Protein 7.0 Albumin 4.4 Globulin 2.6 Albumin/Globulin Ratio 1.7 Lipase 19 L Assessment & Plan Assessment & Plan narrative: Left foot osteomyelitis with history of diabetes. Admit the patient to medical inpatient. Of note the patient not septic at this time hemodynamically stable. Continue IV vancomycin and Zosyn. NPO. Orthopedic consulted appreciate surgical intervention. Severe constipation. Bowel regimen. History of insulin-dependent diabetes. Subcu insulin monitor glucose. History of depression anxiety. Resume home medication. Chronic thrombocytopenia. Monitor for now. DVT prophylaxis SCD for now due to thrombocytopenia. CODE STATUS full code. Disposition likely home in 2 to 3 days. - As the provider of this telehealth evaluation, requested by the patient's evaluating physician, I attest that I introduced myself to the patient, provided my credentials and determined that telemedicine via a real-time, 2 way interactive audio and video platform is an appropriate and effective means of providing this service. - I reviewed the patient's chart and had a discussion with the member of the patient's treatment team. - The patient and I mutually agreed with continuation of this evaluation via telemedicine. The patient consented for the telemedicine evaluation. - This virtual encounter was taken place from [place]. The encounter was approximately 35 minutes. The nurse was present during the entire time of the encounter and was able to move the stethoscope in appropriate directions. The patient was evaluated at [facility]. Time-Based Coding :: [TOTAL MINUTES] spent with patient and on the chart (including review of chart, obtaining history, exam, reviewing outside data, placing orders, documenting exam and treatment plan, and counseling patient) on [DATE].
[2024-08-09 06:02] LABS: Lactate (Lactic Acid) 1.2 mmol/L (0.7-2.1)
[2024-08-09 06:23] LABS: Erythrocyte Sedimentation Rate 22 MM/HR (0-15)
[2024-08-09] MEDS: HYDROCODONE/ACET 5/325 TABLET 1 TAB PO (07:39)
[2024-08-09 08:36] LABS: Appearance Urine UA CLEAR; Bilirubin Urine UA NEGATIVE (NEGATIVE); Color Urine UA YELLOW; Glucose Urine UA NEGATIVE (Negative); Ketones Urine UA NEGATIVE (NEGATIVE); Leukocyte Esterase Urine UA NEGATIVE (NEGATIVE); Nitrite Urine UA NEGATIVE (Negative); Occult Blood Urine UA 3+ (Negative); Protein Urine UA TRACE (Negative); Urobilinogen Urine UA 0.2 E.U./dL (0.2); pH Urine UA 5.5 (4.5-8.0)
[2024-08-09 08:37] LABS: Urine Volume 10mL (spun)
[2024-08-09 08:38] LABS: Bacteria Urine None Seen; Culture Indicated Urine Cult Not Indicated; RBC Urine 10-30/HPF (0-5/HPF); Squamous Epithelial Cell Urine 1-5 /HPF (0-5/HPF); WBC Urine None Seen (0-5/HPF)
--- NOTE | 2024-08-09 10:01 | PC.NURSE ---
Day shift: Pt to ACU room from ED at approx 0845. A&Ox4. C/o pain and is concerned he was switched to PO pain meds and not IV. He is also having anxiety. Rt foot woiund coved woith dressing and is CDI. Left foot wound is CONNOR and shows no s/s of infestion. Dr Boateng made aware. Dr Boateng also said I don't think Pt has osteo. Oriented to room and call light. Agrees to not get OOB without help from staff. Bed alarm is on. Pt does use a FWW.
[2024-08-09] MEDS: HEPARIN 5,000 UNIT/ML VIAL 5000 UNIT SUBCUT (10:11)
[2024-08-09] MEDS: PIPERACILLIN/TAZO 3.375 GM in SODIUM CHLORIDE 0.9% 100 ML IV ×2 (10:11→18:47)
[2024-08-09] MEDS: OXYCODONE IR 5 MG TABLET PO ×4 (10:44→23:13)
--- NOTE | 2024-08-09 11:09 | PT-IP ANOTE ---
Received PT eval order and EMR reviewed. Talked with hospitalist and informed PT/OT to d/c eval order at this time.
[2024-08-09] MEDS: LORazepam 1 MG TABLET PO ×2 (12:00→18:50)
[2024-08-09 12:22] LABS: Add Manual Diff / Slide Review NO; Basophils Absolute Auto 0 /uL (0-100); Basophils Percent Auto 0.4 % (0-2); Eosinophils Absolute Auto 100 /uL (0-450); Eosinophils Percent Auto 1.8 % (2-4); Hematocrit 29.8 % (41-53); Hemoglobin 10.3 g/dL (13.5-17.5); Lymphocytes Absolute Auto 400 /uL (1100-4500); Lymphocytes Percent Auto 14.1 % (25-40); Mean Corpuscular HGB Conc 34.6 % (30-36); Mean Corpuscular Hemoglobin 34.5 PG (26-34); Mean Corpuscular Volume 99.7 fL (80-100); Monocytes Absolute Auto 300 /uL (0-900); Monocytes Percent Auto 9.1 % (3-14); Neutrophils Absolute Auto 2200 /uL (1500-7000); Neutrophils Percent Auto 74.6 % (50-75); Platelet Count 56 X10^3/uL (150-400); Red Blood Cell Count 2.99 X10^6/uL (4.5-5.9); Red Cell Distribution Width 13.9 % (11.6-14.8)
[2024-08-09 12:37] LABS: Alanine Aminotransferase 43 IU/L (<50); Albumin 3.8 g/dL (3.5-5.0); Albumin Globulin Ratio 1.5 (1.0-2.8); Alkaline Phosphatase 53 U/L (38-126); Aspartate Aminotransferase 67 IU/L (17-59); BUN Creatinine Ratio 19.4 (6-22); Bilirubin Total 0.7 mg/dL (0.2-1.3); Blood Urea Nitrogen 27 mg/dL (9-20); Calcium 8.1 mg/dL (8.4-10.2); Carbon Dioxide 18 mmol/L (22-32); Chloride 112 mmol/L (98-107); Estimated Glomerular Filt Rate > 60 mL/min (>60); Globulin 2.5 g/dL (1.7-4.1); Glucose 152 mg/dL (70-99); HEMOLYSIS < 15 (0-50); Potassium 5.2 mmol/L (3.4-5.1); Sodium 139 mmol/L (137-145); Total Protein 6.3 g/dL (6.3-8.2)
--- NOTE | 2024-08-09 15:53 | P.CONS_ITS ---
History of Present Illness Consult details Date Patient Seen: 08/09/24 Time Patient Seen: 15:53 Chief complaint: General weakness, Type I DM Reason for consult: Concern about foot ulcers and possible osteomyelitis Requesting provider: Reese Boateng Narrative: The patient is a 48-year-old male with diabetes type 1 that has been treated in the [facility] for several months for a forefoot ulceration on the right side. He states he has also previously had an ulcer on the left side but it healed. He has been using a offloading shoe from wound care. States he has had a previous history of a surgery to his 5th toe on the right foot. And he has recently been on oral antibiotics. States he thought his ulcerations were healing but wound care ordered an MRI and he was called by them yesterday and instructed to come to the emergency room. He does state he has had some trouble with his blood sugars recently and he is in between primary care doctors. He also his in the process of getting set up with [facility]. He has a history of CML on Gleevec. Occasionally has fevers. But mostly said his blood sugars have not been great. He does not note any swelling or erythema or increased drainage from his feet. He states he does have diabetic insoles and shoes but has been wearing the offloading shoes from wound care recently. No shortness of breath. No new injuries. Meds Home Medications and Allergies Home Medications Medication Instructions Recorded Confirmed Type BD U/F Hilda Pen Needle [id number] #100 ea 06/13/18 08/09/24 Rx dasatinib 100 mg tablet (Sprycel) 100 mg PO DAILY 05/11/22 08/09/24 History insulin lispro 100 unit/mL 1 - 12 unit (0.01 - 0.12 mL) 05/11/22 08/09/24 Rx subcutaneous pen (Humalog KwikPen SUBCUT TIDCC #1 ea (U-100) Insulin) glucagon HCl 1 mg solution for 1 mg SUBCUT Q20M PRN hypoglycemia 10/23/22 08/09/24 Rx injection (Glucagon (HCl) #2 ea Emergency Kit) blood-glucose transmitter (Dexcom #1 ea 11/06/22 08/09/24 Rx G6 Transmitter device) albuterol sulfate 2.5 mg/3 mL 2.5 mg inhalation 4XD PRN wheezing 05/01/23 08/09/24 History (0.083 %) solution for nebulization blood-glucose sensor (Dexcom G6 #3 ea 06/14/23 08/09/24 Rx Sensor device) insulin glargine 100 unit/mL (3 8 unit SUBCUT DAILY 08/09/24 08/09/24 History mL) subcutaneous pen (Lantus Solostar U-100 Insulin) lorazepam 1 mg tablet 1 mg PO Q6H PRN anxiety 08/09/24 08/09/24 History pregabalin 25 mg capsule 25 mg PO 3XD 08/09/24 08/09/24 History Allergies Allergy/AdvReac Type Severity Reaction Status Date / Time adhesive Allergy Intermediate rash, skin Verified 03/18/23 13:21 tear latex [LATEX] Allergy Unknown rash, skin Verified 03/18/23 13:21 tear Review of Systems Review of Systems Narrative: CML, pancytopenia, diabetes type 1 Exam Vital Signs (past 8 hours): - 08/09/24 08:00 08/09/24 08:00 08/09/24 08:17 Temperature 99.1 F Pulse Rate 83 Respiratory Rate 18 Blood Pressure 175/90 H Pulse Oximetry 93 Oxygen Delivery Method Room Air Oxygen Flow Rate 08/09/24 09:00 Temperature 97.5 F L Pulse Rate 73 Respiratory Rate 17 Blood Pressure 151/80 H Pulse Oximetry 97 Oxygen Delivery Method Oxygen Flow Rate 0 Oxygen Delivery Method Room Air Oxygen Flow Rate 0 Narrative Exam Narrative: Generalized and alert and oriented male in no acute distress lying in bed. Overall nontoxic appearing Vital signs are stable. Heart regular rate and rhythm Lungs are clear to auscultation bilaterally Bilateral lower extremities are examined. Right side demonstrates a full- thickness ulceration plantar to the 3rd metatarsal head no malodor. No surrounding cellulitis. No purulence. No ascending cellulitis or fluctuance. Bounding dorsalis pedis pulses. 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 No specific bony tenderness to palpation. No exposed bone. Equinus contracture 0? dorsiflexion with the knee extended no significant change with the knee bent. Left lower extremity demonstrates a callus around the 5th metatarsal head no open wounds no cellulitis no drainage no malodor. Bounding dorsalis pedis pulse. Stocking-glove neuropathy. Calf soft. 0? dorsiflexion with the knee extended no significant change with the knee bent Objective Labs 08/09/24 12:10 08/09/24 12:10 Labs: Laboratory Results - last 24 hr 08/08/24 08/09/24 08/09/24 19:44 02:38 05:35 WBC 3.8 L RBC 3.27 L Hgb 11.3 L Hct 32.5 L MCV 99.5 MCH 34.6 H MCHC 34.8 RDW 14.0 Plt Count 66 L Neut % (Auto) 64.4 Lymph % (Auto) 26.5 [place] % (Auto) 6.9 Eos % (Auto) 1.9 L Baso % (Auto) 0.3 Neut # (Auto) 2400 Lymph # (Auto) 1000 L [place] # (Auto) 300 Eos # (Auto) 100 Baso # (Auto) 0 ESR 22 H Sodium 142 Potassium 4.6 Chloride 112 H Carbon Dioxide 16 L BUN 29 H Creatinine 1.49 H Estimated GFR 58 L BUN/Creatinine Ratio 19.5 Glucose 119 H Lactate 1.2 Calcium 8.4 Magnesium Total Bilirubin 0.4 AST 69 H ALT 49 Alkaline Phosphatase 52 C-Reactive Protein < 0.5 Total Protein 7.0 Albumin 4.4 Globulin 2.6 Albumin/Globulin Ratio 1.7 Lipase 19 L Urine Color Yellow Urine Appearance Clear Urine pH 5.5 Ur Specific [place] 1.020 Urine Protein Trace H Urine Glucose (UA) Negative Urine Ketones Negative Urine Occult Blood 3+ H Urine Nitrate Negative Urine Bilirubin Negative Urine Urobilinogen 0.2 Ur Leukocyte Esterase Negative Urine RBC 10-30/hpf H Urine WBC None seen Ur Squamous Epith Cells 1-5 /hpf Urine Bacteria None seen Ur Culture Indicated? Cult not indicated Vol Urine Centrifuged 10ml (spun) 08/09/24 12:10 WBC 3.0 L RBC 2.99 L Hgb 10.3 L Hct 29.8 L MCV 99.7 MCH 34.5 H MCHC 34.6 RDW 13.9 Plt Count 56 L Neut % (Auto) 74.6 Lymph % (Auto) 14.1 L [place] % (Auto) 9.1 Eos % (Auto) 1.8 L Baso % (Auto) 0.4 Neut # (Auto) 2200 Lymph # (Auto) 400 L [place] # (Auto) 300 Eos # (Auto) 100 Baso # (Auto) 0 ESR Sodium 139 Potassium 5.2 H Chloride 112 H Carbon Dioxide 18 L BUN 27 H Creatinine 1.39 H Estimated GFR > 60 BUN/Creatinine Ratio 19.4 Glucose 152 H Lactate Calcium 8.1 L Magnesium 2.0 Total Bilirubin 0.7 AST 67 H ALT 43 Alkaline Phosphatase 53 C-Reactive Protein Total Protein 6.3 Albumin 3.8 Globulin 2.5 Albumin/Globulin Ratio 1.5 Lipase Urine Color Urine Appearance Urine pH Ur Specific [place] Urine Protein Urine Glucose (UA) Urine Ketones Urine Occult Blood Urine Nitrate Urine Bilirubin Urine Urobilinogen Ur Leukocyte Esterase Urine RBC Urine WBC Ur Squamous Epith Cells Urine Bacteria Ur Culture Indicated? Vol Urine Centrifuged [facility] Medical History Ataxia Cervical radiculopathy Cervicalgia Cancer of blood vessel Pancytopenia Chronic, continuous use of opioids Central cord syndrome at C3 level of cervical spinal cord Thrombocytopenia Alcoholism Insulin dependent diabetes mellitus CML (chronic myelocytic leukemia) Surgical History Status post appendectomy Family History Grandfather Diabetes mellitus Mother Cancer History of heart disease Father Hyperlipidemia History of heart disease Social History household members: none Tobacco & Substance Use Smoking Status: Former smoker Tobacco: How many years used: 10 Smokeless tobacco user: chewing tobacco (current ) quit status: considering quitting alcohol intake: former substance use type: former substance user, marijuana and opiates Assessment & Plan Assessment and plan (1) Diabetic foot ulcer: Qualifiers: Diabetic foot ulcer location: toe Diabetes mellitus type: type 1 L aterality: right Non-pressure ulcer stage: with muscle involvement without evidence of necrosis Qualified Code(s): E10.621 - Type 1 diabetes mellitus with foot ulcer; L97.515 - Non-pressure chronic ulcer of other part of right foot with muscle involvement without evidence of necrosis Status: Acute (2) Achilles tendon contracture: Qualifiers: Laterality: bilateral Qualified Code(s): M67.01 - Short Achilles tendon (acquired), right ankle; M67.02 - Short Achilles tendon (acquired), left ankle Status: Acute Plan Patient was a 48-year-old male with diabetes type 1 and CML and chronic pancytopenia. He has bilateral Achilles contractures which contributes to forefoot overload and slow or nonhealing forefoot diabetic ulcerations. He has a chronic full-thickness plantar ulceration around the 3rd metatarsal head on the right foot. He does not have any evidence of ascending cellulitis or abscess given the chronic nature and full-thickness nature of this wound likely may have some osteomyelitis at this level although there was not any impressive enhancement on the MRI. He would be a candidate for debridement bone biopsy closure and tendo-Achilles lengthening and possible cast placement on the right side. This can be done as an outpatient. Depending on culture results he may require additional oral or potentially IV antibiotics and there is a risk of recurrence but combining the tendo-Achilles lengthening with a debridement would help decrease the risk of recurrence by decreasing the forefoot pressures and would be indicated in a diabetic individual with a nonhealing forefoot wound. Regarding the left foot there is a preulcerative callus around the 5th metatarsal base. Per the patient's history he may have had an ulcer here previously that healed. He does not have any cellulitis and he fluctuance or any signs or symptoms of ascending infection. There was some edema signal on the MRIs that were read as concerning for osteomyelitis but the clinical appearance is very benign on my examination today. Does have an Achilles contracture on that side as well which contributes to forefoot pressures. We could consider a bone biopsy around the 5th metatarsal head as an outpatient as well to address the question of potential osteomyelitis but right now there is no open wound and no fluid collection or signs of sending infection. We will work on scheduling outpatient debridement biopsies and possible tendo- Achilles lengthening. Medically complex patient. Surgical discussion and decision-making will work on timing. Time-Based Coding :: [TOTAL MINUTES] spent with patient and on the chart (including review of chart, obtaining history, exam, reviewing outside data, placing orders, documenting exam and treatment plan, and counseling patient) on [DATE].
--- NOTE | 2024-08-09 16:15 | P.HP_ITS ---
History of Present Illness History of Present Illness Date Patient Seen: 08/09/24 Time Patient Seen: 16:22 Chief complaint: General weakness, Type I DM Narrative: Per overnight provider, 48-year-old male with past medical history of insulin-dependent diabetes, asthma, depression anxiety presents with complaint of generalized weakness and foot infection. Of note the patient was seen as outpatient by wound care clinic on August 01, 2024. The patient does have chronic wound to his left foot. The patient was told that he had a bone infection today and that he would need to come into our ER for IV antibiotic. The patient also had some right-sided abdominal pain but denies any vomiting, diarrhea, GI bleed, fever or chills. The patient admitted to have some nausea. In mild emergency room, the patient was hemodynamically stable without any sign of sepsis. Patient WBC is 3.8. Creatinine 1.4 platelet 66. Based on the MRI that was done as outpatient there is concerning for left ostial myelitis of the left foot. Orthopedic was consulted and agreed that the patient to be admitted for IV antibiotic. Of note CT abdomen was done but shows no signs of acute finding other than cholelithiasis without cholecystitis. There is also signs of constipation. Interval history: MRI reviewed today with orthopedic surgeon after clinical exam. Area of concern over the L 5th toe appears quite chronic with less concern for acute infection. Patient with chronic pain, slightly worse today but home lyrica has been held. CT also with large stool burden, no bowel movements yet. [facility] Medical History Ataxia Cervical radiculopathy Cervicalgia Cancer of blood vessel Pancytopenia Chronic, continuous use of opioids Central cord syndrome at C3 level of cervical spinal cord Thrombocytopenia Alcoholism Insulin dependent diabetes mellitus CML (chronic myelocytic leukemia) Surgical History Status post appendectomy Family History Grandfather Diabetes mellitus Mother Cancer History of heart disease Father Hyperlipidemia History of heart disease Social History household members: none Smoking Status: Former smoker Tobacco: How many years used: 10 Smokeless tobacco user: chewing tobacco (current ) quit status: considering quitting alcohol intake: former substance use type: former substance user, marijuana and opiates Meds Home Medications and Allergies Home Medications Medication Instructions Recorded Confirmed Type BD U/F Hilda Pen Needle [id number] #100 ea 06/13/18 08/09/24 Rx dasatinib 100 mg tablet (Sprycel) 100 mg PO DAILY 05/11/22 08/09/24 History insulin lispro 100 unit/mL 1 - 12 unit (0.01 - 0.12 mL) 05/11/22 08/09/24 Rx subcutaneous pen (Humalog KwikPen SUBCUT TIDCC #1 ea (U-100) Insulin) glucagon HCl 1 mg solution for 1 mg SUBCUT Q20M PRN hypoglycemia 10/23/22 08/09/24 Rx injection (Glucagon (HCl) #2 ea Emergency Kit) blood-glucose transmitter (Dexcom #1 ea 11/06/22 08/09/24 Rx G6 Transmitter device) albuterol sulfate 2.5 mg/3 mL 2.5 mg inhalation 4XD PRN wheezing 05/01/23 08/09/24 History (0.083 %) solution for nebulization blood-glucose sensor (Dexcom G6 #3 ea 06/14/23 08/09/24 Rx Sensor device) insulin glargine 100 unit/mL (3 8 unit SUBCUT DAILY 08/09/24 08/09/24 History mL) subcutaneous pen (Lantus Solostar U-100 Insulin) lorazepam 1 mg tablet 1 mg PO Q6H PRN anxiety 08/09/24 08/09/24 History pregabalin 25 mg capsule 25 mg PO 3XD 08/09/24 08/09/24 History Allergies Allergy/AdvReac Type Severity Reaction Status Date / Time adhesive Allergy Intermediate rash, skin Verified 03/18/23 13:21 tear latex [LATEX] Allergy Unknown rash, skin Verified 03/18/23 13:21 tear Review of Systems Review of Systems Narrative: All other systems reviewed with the patient and are negative unless otherwise stated. Exam Vital Signs (past 8 hours): - 08/09/24 08:17 08/09/24 09:00 Temperature 99.1 F 97.5 F L Pulse Rate 73 Respiratory Rate 17 Blood Pressure 151/80 H Pulse Oximetry 97 Oxygen Flow Rate 0 Oxygen Delivery Method Room Air Oxygen Flow Rate 0 Narrative Exam Narrative: Physical Exam: GENERAL: The patient is not in any acute distressed. Awake and alert. HEENT: Nonicteric sclerae, PERRLA, EOMI. Oropharynx clear. Moist mucous membranes. Conjunctivae appear well perfused. HEART: Regular rate and rhythm without murmurs. No lower extremities edema. LUNGS: Clear to auscultation bilaterally. No wheezing, crackles or rhonchi ABDOMEN: Soft, positive bowel sounds, nontender. SKIN: R foot 2-3rd metatarsal wound, chronic, no surrounding erythema or purulent drainage. L 5th foot lateral small wound without erythema induration or tenderness. NEUROLOGIC: AxO x 3. Cranial nerves II-XII intact without motor/sensory deficit. Objective Labs 08/09/24 12:10 08/09/24 12:10 Labs: Laboratory Results - last 24 hr 08/08/24 08/09/24 08/09/24 19:44 02:38 05:35 WBC 3.8 L RBC 3.27 L Hgb 11.3 L Hct 32.5 L MCV 99.5 MCH 34.6 H MCHC 34.8 RDW 14.0 Plt Count 66 L Neut % (Auto) 64.4 Lymph % (Auto) 26.5 [place] % (Auto) 6.9 Eos % (Auto) 1.9 L Baso % (Auto) 0.3 Neut # (Auto) 2400 Lymph # (Auto) 1000 L [place] # (Auto) 300 Eos # (Auto) 100 Baso # (Auto) 0 ESR 22 H Sodium 142 Potassium 4.6 Chloride 112 H Carbon Dioxide 16 L BUN 29 H Creatinine 1.49 H Estimated GFR 58 L BUN/Creatinine Ratio 19.5 Glucose 119 H Lactate 1.2 Calcium 8.4 Magnesium Total Bilirubin 0.4 AST 69 H ALT 49 Alkaline Phosphatase 52 C-Reactive Protein < 0.5 Total Protein 7.0 Albumin 4.4 Globulin 2.6 Albumin/Globulin Ratio 1.7 Lipase 19 L Urine Color Yellow Urine Appearance Clear Urine pH 5.5 Ur Specific [place] 1.020 Urine Protein Trace H Urine Glucose (UA) Negative Urine Ketones Negative Urine Occult Blood 3+ H Urine Nitrate Negative Urine Bilirubin Negative Urine Urobilinogen 0.2 Ur Leukocyte Esterase Negative Urine RBC 10-30/hpf H Urine WBC None seen Ur Squamous Epith Cells 1-5 /hpf Urine Bacteria None seen Ur Culture Indicated? Cult not indicated Vol Urine Centrifuged 10ml (spun) 08/09/24 12:10 WBC 3.0 L RBC 2.99 L Hgb 10.3 L Hct 29.8 L MCV 99.7 MCH 34.5 H MCHC 34.6 RDW 13.9 Plt Count 56 L Neut % (Auto) 74.6 Lymph % (Auto) 14.1 L [place] % (Auto) 9.1 Eos % (Auto) 1.8 L Baso % (Auto) 0.4 Neut # (Auto) 2200 Lymph # (Auto) 400 L [place] # (Auto) 300 Eos # (Auto) 100 Baso # (Auto) 0 ESR Sodium 139 Potassium 5.2 H Chloride 112 H Carbon Dioxide 18 L BUN 27 H Creatinine 1.39 H Estimated GFR > 60 BUN/Creatinine Ratio 19.4 Glucose 152 H Lactate Calcium 8.1 L Magnesium 2.0 Total Bilirubin 0.7 AST 67 H ALT 43 Alkaline Phosphatase 53 C-Reactive Protein Total Protein 6.3 Albumin 3.8 Globulin 2.5 Albumin/Globulin Ratio 1.5 Lipase Urine Color Urine Appearance Urine pH Ur Specific [place] Urine Protein Urine Glucose (UA) Urine Ketones Urine Occult Blood Urine Nitrate Urine Bilirubin Urine Urobilinogen Ur Leukocyte Esterase Urine RBC Urine WBC Ur Squamous Epith Cells Urine Bacteria Ur Culture Indicated? Vol Urine Centrifuged Assessment & Plan Assessment & Plan narrative: Bilateral diabetic foot wounds, chronic with possible acute infection - extensive discussion with orthopedics provider, Dr. Almanzar today. Appreciate her consultation. Recommends continuation of antibiotics, will set up in clinic for other indicated procedures and possible outpatient biopsy. If worsening of L 5th toe on oral antibiotics can refer to outpatient infectious disease. Less concern for acute osteomyelitis at this time. - will continue IV antibiotics with zosyn and vancomycin for now, with some worsened pain acutely, but less concern for acute osteomyelitis at this time - likely discharge tomorrow with PO antibiotics. Outpatient orthopedics follow up. - ESR 22 only mild elevation, WBC chronically low likely due to cirrhosis noted on CT imaging. Severe constipation. - continue aggressive laxative therapies. History of insulin-dependent diabetes. - resumed home lantus 8 U, sliding scale - home lyrica resumed for chronic neuropathic pain. History of depression anxiety. Alcoholic cirrhosis, chronic - seen on CT imaging this admission. History of CML CKD - monitor with BMP DVT prophylaxis SCD for now due to thrombocytopenia. CODE STATUS full code. Disposition likely home tomorrow Code: Full, surrogate is patient's Mother. I have utilized all available immediate resources to obtain, update, or review the patient's current medications. Dispo: Anticipate discharge home tomorrow. Additional history obtained via discussions with the overnight hospitalist and orthopedic provider as noted above. These discussions contributed to the creation of the above assessment and plan. I have reviewed patient's presenting documentation, labs, and imaging personally. Time-Based Coding :: [TOTAL MINUTES] spent with patient and on the chart (including review of chart, obtaining history, exam, reviewing outside data, placing orders, documenting exam and treatment plan, and counseling patient) on [DATE].
[2024-08-09] MEDS: PREGABALIN 25 MG CAPSULE PO ×2 (17:03→21:02)
[2024-08-09] MEDS: VANCOMYCIN 1,000 MG in SODIUM CHLORIDE 0.9% 250 ML 250 MG IV (17:04)
[2024-08-09] MEDS: NICOTINE 14 PATCH 14 MG TOP (17:45)
--- NOTE | 2024-08-10 00:49 | PC.NURSE ---
Addendum entered by Jessenia Cha R.N. 08/10/24 05:00: Dr Henriquez increased patient's pain medication to 10mg q4hour and oral ativan to q4hour. RN informed patient and when reassessing pain, patient stated still having a 6/10 pain, RN asked specifically what type of pain are you feeling?, nerve pain or wound site pain in your legs? patient stated the nerve pain is constant. Dr Henriquez updated of situation and ordered additional dose of gabapentin to help manage patient's pain. 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 Night time hospitalist informed. and reviewing chart.
[2024-08-10] MEDS: OXYCODONE IR 5 MG TABLET 10 MG PO ×3 (01:36→09:23)
[2024-08-10] MEDS: LORazepam 1 MG TABLET PO ×3 (01:36→09:22)
[2024-08-10] MEDS: PIPERACILLIN/TAZO 3.375 GM in SODIUM CHLORIDE 0.9% 100 ML IV (02:52)
[2024-08-10 05:16] LABS: Hemoglobin A1C% w Est Avg Glu 4.9 % (4.0-6.0)
[2024-08-10 05:22] LABS: BUN Creatinine Ratio 16.5 (6-22); Blood Urea Nitrogen 23 mg/dL (9-20); Calcium 8.2 mg/dL (8.4-10.2); Carbon Dioxide 21 mmol/L (22-32); Chloride 110 mmol/L (98-107); Estimated Glomerular Filt Rate > 60 mL/min (>60); Glucose 139 mg/dL (70-99); HEMOLYSIS < 15 (0-50); Potassium 4.6 mmol/L (3.4-5.1); Sodium 138 mmol/L (137-145)
[2024-08-10 05:24] LABS: Hematocrit 28.1 % (41-53); Hemoglobin 9.8 g/dL (13.5-17.5); Mean Corpuscular HGB Conc 34.7 % (30-36); Mean Corpuscular Hemoglobin 34.4 PG (26-34); Mean Corpuscular Volume 99.1 fL (80-100); Platelet Count 48 X10^3/uL (150-400); Red Blood Cell Count 2.84 X10^6/uL (4.5-5.9); Red Cell Distribution Width 13.7 % (11.6-14.8); White Blood Cell Count 2.6 X10^3/uL (4.5-11.0)
[2024-08-10 05:25] LABS: Add Manual Diff / Slide Review YES
[2024-08-10] MEDS: GABAPENTIN 300 MG CAPSULE PO ×2 (05:36→08:33)
[2024-08-10] MEDS: CYCLOBENZAPRINE 10 MG TABLET PO (05:36)
[2024-08-10] MEDS: VANCOMYCIN 1,000 MG in SODIUM CHLORIDE 0.9% 250 ML 250 MG IV (05:37)
[2024-08-10 06:20] LABS: Neutrophils Absolute Manual 1924 /uL (3000-5900); Platelet Estimate Decreased on smear; RBC Morphology Normal Morphology; Total Cells Counted 100
[2024-08-10 08:00] VITALS: BP 184/101; PULSE 72; RESP 21; TEMP 36.4; O2SAT 98
[2024-08-10] MEDS: NICOTINE 14 PATCH 14 MG TOP (08:32)
[2024-08-10] MEDS: HEPARIN 5,000 UNIT/ML VIAL 5000 UNIT SUBCUT (08:33)
[2024-08-10] MEDS: PREGABALIN 25 MG CAPSULE PO (08:34)
[2024-08-10] MEDS: INSULIN GLARGINE 100 UNIT/ML 3ML PEN 8 UNIT SUBCUT (08:44)
[2024-08-10] MEDS: ONDANSETRON 4 MG/2 ML INJ IV (08:58)
--- NOTE | 2024-08-10 10:21 | CM.DANOTE ---
Initial DCP Assessment Note Pt is a 48 yo male, resident of [place], insulin-dependent diabetes, asthma, depression anxiety presents with complaint of generalized weakness and foot infection. Patient admitted INPT for management of his chronic and acute medical issues. PCP: Jak Bain Payer: Miki HERRMANN Reviewed chart, pt discussed in multidisciplinary rounds this morning. According to Dr Romeo, patient will be discharged today on po abx and continue follow up at outpatient wound care clinic. Met w/patient, his [employer] caregiver was at bedside, permission given to continue. Patient lives alone in his own home in [place], has [employer] infant caregiver M-F 9-3pm. Caregiver assists w/most ADLs. Patient does not drive. Patient is followed by [facility] therapeutic case manager Asif (contact unknown). Discussed home health RN/PT, patient states he and Asif are attempting to get HH, [facility] will not authorize. Patient denies illicit drug use or alcohol use, denies having an alcohol use disorder; reports drinking 2 beers at a time. Discussed DPOA and patient withdrew and did not want to discuss, said I completed that a year ago. Patient denies needs from this CM team. No barriers identified at this time to patient's safe discharge home w/NEDA caregiver to assist; close outpatient f/u recommended. CM team will plan to follow clinical course closely in case any DC needs or concerns arise. YASMINE Bustos Discharge Planning/Care Management CM Discharge Assessment Start: 08/10/24 10:14 Freq: Status: Active Protocol: Document 08/10/24 10:14 DREW (Rec: 08/10/24 10:21 DREW [id number]) Discharge Planning Assessment Assigned Pit Laborer YASMINE Weiss DPOA/Assigned Designee Name Roberth Stormuse (Dad) [phone] Contact Information Lelo Han (Mother) [phone] Advance Directives? Yes Advance Directives on File Yes History Provided By Patient,Medical Record Has Patient been admitted in last 30 No days? Prior Living Arrangements House Household Members none Type of transporation used prior to Relies on Others admit Independent with ADL's No Is patient alert and oriented? Yes Needs Assistance With Bathing,Grooming,Meal Prep, Toileting,Home Chores / Shopping Caregiver for Another Yes: Has a dog Comment NEDA [id number]. Cg works M-F 9-3 Barriers to Discharge No Comment Home Discharge Plan Home Transportation Arrangement NEDA caregiver Referrals Initiated None needed If patient plan is home with home health No : Has signed face to face form been completed?
--- NOTE | 2024-08-10 10:23 | PM.DS.1 ---
History of Present Illness History of Present Illness Chief complaint: General weakness, Type I DM Narrative: From H&P: 48-year-old male with past medical history of insulin-dependent diabetes, asthma, depression anxiety presents with complaint of generalized weakness and foot infection. Of note the patient was seen as outpatient by wound care clinic on August 01, 2024. The patient does have chronic wound to his left foot. The patient was told that he had a bone infection today and that he would need to come into our ER for IV antibiotic. The patient also had some right-sided abdominal pain but denies any vomiting, diarrhea, GI bleed, fever or chills. The patient admitted to have some nausea. In mild emergency room, the patient was hemodynamically stable without any sign of sepsis. Patient WBC is 3.8. Creatinine 1.4 platelet 66. Based on the MRI that was done as outpatient there is concerning for left ostial myelitis of the left foot. Orthopedic was consulted and agreed that the patient to be admitted for IV antibiotic. Of note CT abdomen was done but shows no signs of acute finding other than cholelithiasis without cholecystitis. There is also signs of constipation. Discharge Providers Provider Date of admission: 08/09/24 04:19 Discharge Date: 08/10/24 Primary care physician: Zakia Kidd DO Consults: 08/09/24 04:17 Consult to Occupational Therapy Evaluate & Treat Comment: Physician Instructions: Evaluate and treat Consult to Physical Therapy Evaluate & Treat Comment: Physician Instructions: Evaluate and Treat 08/09/24 12:40 Consult to Orthopedic Surgery Routine Comment: Consulting Provider: Kailey Almanzar Reason for consultation: L 5th toe osteomyelitis Discharge provider: Prudencio Romeo MD Summary Hospital Course Discharge Diagnosis: 1. Bilateral diabetic foot wounds, chronic with possible acute infection - extensive discussion with orthopedics provider, Dr. Almanzar today. Appreciate her consultation. Recommends continuation of antibiotics, will set up in clinic for other indicated procedures and possible outpatient biopsy. If worsening of L 5th toe on oral antibiotics can refer to outpatient infectious disease. Less concern for acute osteomyelitis at this time. - IV antibiotics with zosyn and vancomycin for now, with some worsened pain acutely, but less concern for acute osteomyelitis at this time - Outpatient orthopedics follow up. - ESR 22 only mild elevation, WBC chronically low likely due to cirrhosis noted on CT imaging. 2. Severe constipation. Improved. - continue aggressive laxative therapies. 3. Insulin-dependent diabetes. Stable. - resumed home lantus 8 U, sliding scale - home lyrica resumed for chronic neuropathic pain. 4. Depression and anxiety. Stable. 5. Alcoholic cirrhosis. Stable. - seen on CT imaging this admission. 6. History of CML. Stable. 7. CKD. Stable. Hospital Course: The patient presented with acute diabetic foot wounds and concern for acute infection. He was started on empiric antibiotics and seen by Dr. Toussaint. She did not feel any surgical debridement was required but did recommend oral antibiotics and outpatient follow up within the next 1-2 weeks. The patient was stable for discharge on August 10 and we will go out on oral antibiotics. He will follow up with the wound care within the next week and Dr. Toussaint with the next 1-2 weeks. Status at Discharge Cognitive/behavioral status at discharge: oriented Functional status at discharge: independent ambulation Overall status at discharge: patient is back to baseline Time Spent with Patient Time spent: Greater than 30 minutes Exam Vital Signs (past 8 hours): - 08/10/24 08:00 Temperature 97.5 F L Pulse Rate 72 Respiratory Rate 21 Blood Pressure 184/101 H Pulse Oximetry 98 Oxygen Delivery Method Room Air Oxygen Flow Rate 0 Narrative Exam Narrative: NAD, alert and oriented. Fluent speech. Lungs are clear, normal rate and effort. Heart is regular, no murmur gallop or rub. Abdomen is soft, non distended. Extremities are free of edema. Objective Imaging CT scan - abdomen: Radiologist's impression: IMPRESSION: 1. No acute findings within the abdomen or pelvis. 2. Large burden of stool, correlate for constipation. 3. Cholelithiasis without CT evidence of acute cholecystitis. 4. Hepatic cirrhosis with sequela of portal hypertension. 5. Please see above for additional findings. Foot MRI:: Radiologist's impression: 1. Ulceration involving plantar aspect of forefoot at the level of 3rd MTP joint with underlying soft tissue edema and swelling with mild contrast enhancement consistent with cellulitis. No discrete drainable abscess collection. 2. 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 No acute fracture or dislocation. No evidence of osteomyelitis. No area of abnormal intraosseous enhancement. 3. Tendinosis involving flexor tendon of the 3rd toe at the level of 3rd MTP joint and 3rd metatarsal head and neck. Rest of the extensor and flexor tendons are intact. Labs 08/10/24 04:30 05/01/25 04:30 Labs: Laboratory Results - last 24 hr 08/09/24 08/10/24 12:10 04:30 WBC 3.0 L 2.6 L RBC 2.99 L 2.84 L Hgb 10.3 L 9.8 L Hct 29.8 L 28.1 L MCV 99.7 99.1 MCH 34.5 H 34.4 H MCHC 34.6 34.7 RDW 13.9 13.7 Plt Count 56 L 48 L Neut % (Auto) 74.6 Not Reportable Lymph % (Auto) 14.1 L Not Reportable [place] % (Auto) 9.1 Not Reportable Eos % (Auto) 1.8 L Not Reportable Baso % (Auto) 0.4 Not Reportable Neut # (Auto) 2200 Lymph # (Auto) 400 L Not Reportable [place] # (Auto) 300 Not Reportable Eos # (Auto) 100 Baso # (Auto) 0 Not Reportable Total Counted 100 Seg Neutrophils % 71.0 H Band Neutrophils % 3.0 Lymphocytes % (Manual) 16.0 L Monocytes % (Manual) 7.0 Eosinophils % (Manual) 3.0 Neutrophils # (Manual) 1924 L Platelet Estimate Decreased on smear RBC Morphology Normal morphology Sodium 139 138 Potassium 5.2 H 4.6 Chloride 112 H 110 H Carbon Dioxide 18 L 21 L BUN 27 H 23 H Creatinine 1.39 H 1.39 H Estimated GFR > 60 > 60 BUN/Creatinine Ratio 19.4 16.5 Glucose 152 H 139 H Hemoglobin A1c 4.9 Calcium 8.1 L 8.2 L Magnesium 2.0 Total Bilirubin 0.7 AST 67 H ALT 43 Alkaline Phosphatase 53 Total Protein 6.3 Albumin 3.8 Globulin 2.5 Albumin/Globulin Ratio 1.5 [facility] Medical History Ataxia Cervical radiculopathy Cervicalgia Cancer of blood vessel Pancytopenia Chronic, continuous use of opioids Central cord syndrome at C3 level of cervical spinal cord Thrombocytopenia Alcoholism Insulin dependent diabetes mellitus CML (chronic myelocytic leukemia) Surgical History Status post appendectomy Family History Grandfather Diabetes mellitus Mother Cancer History of heart disease Father Hyperlipidemia History of heart disease Social History household members: none Smoking Status: Former smoker Tobacco: How many years used: 10 Smokeless tobacco user: chewing tobacco (current ) quit status: considering quitting alcohol intake: former substance use type: former substance user, marijuana and opiates Discharge Assessment & Plan Assessment and Plan Assessment: 1. Bilateral diabetic foot wounds, chronic with possible acute infection - extensive discussion with orthopedics provider, Dr. Almanzar today. Appreciate her consultation. She advises outpatient ortho FU and PO antibiotics. Plan of Treatment: Discharge with doxycycline 100 b.i.d., 10 day course, Orthopedics within 2 weeks, wound care next week as scheduled. This is at [facility]. Discharge Plan Discharge Plan Patient Disposition: Home Provider Discharge Comment: Stable for discharge home with oral antibiotics, follow up with wound care next week, and Orthopedics within the next 2 weeks. Discharge orders & Medications Prescriptions: New pregabalin 50 mg capsule 50 mg PO TID Qty: 90 2RF oxycodone 5 mg capsule 5 mg PO Q8H PRN (Reason: pain) Qty: 20 0RF doxycycline hyclate 100 mg capsule 100 mg PO BID Qty: 14 0RF Continued (DME) BD U/F Hilda Pen Needle [id number] 0 .Route .MEDSUPPLY Qty: 100 3RF Hold Instructions: HAS NEW PCP (MYRIAM MEHTA) Dose Instruction: As directed Rx Instructions: BD U/F Hilda Pen Needle [id number] use as directed with insulin insulin lispro [Humalog KwikPen Insulin] 100 unit/mL insulin pen 1 - 12 unit subcut TIDCC Qty: 1 3RF Hold Instructions: HAS NEW PCP (MYRIAM MEHTA) Patient Comments: patient states none today Sprycel 100 mg tablet 100 mg PO DAILY Hold Instructions: HAS NEW PCP (MYRIAM MEHTA) Patient Comments: pt started for his CML glucagon HCl [Glucagon (HCl) Emergency Kit] 1 mg recon soln 1 mg SUBCUT Q20M PRN (Reason: hypoglycemia) Qty: 2 0RF Hold Instructions: HAS NEW PCP (MYRIAM MEHTA) Rx Instructions: until target blood sugar attained (DME) Dexcom G6 Transmitter Device See Rx Instructions .Route Qty: 1 3RF Hold Instructions: HAS NEW PCP (MYRIAM MEHTA) Rx Instructions: As directed (DME) Dexcom G6 Sensor Device See Rx Instructions .Route Qty: 3 5RF Hold Instructions: HAS NEW PCP (MYRIAM MEHTA) Rx Instructions: As directed insulin glargine [Lantus Solostar U-100 Insulin] 100 unit/mL (3 mL) insulin pen 8 unit SUBCUT DAILY Rx Instructions: Takes midday lorazepam 1 mg tablet 1 mg PO Q6H PRN (Reason: anxiety) Qty: 15 0RF albuterol sulfate 2.5 mg /3 mL (0.083 %) solution for nebulization 2.5 mg inhalation 4XD PRN (Reason: wheezing) Hold Instructions: HAS NEW PCP (MYRIAM MEHTA) Patient Comments: No longer taking Discontinued pregabalin 25 mg capsule 25 mg PO 3XD Follow up/Referrals: Kailey Almanzar MD [Physician] - Zakia Kidd DO [Primary Care Provider] - Diet/Activity/Treatments Diet: Carb-consistent/Diabetic Activity: As tolerated. Visit Report/Discharge Packet Instructions: DI for Diabetic Foot Ulcer, DI for Prescription Opioid Use Stand Alone Forms: Patient Portal/API Discharge Data Primary Care Provider: Zakia Kidd Attending Provider: Ben Henriquez Admit Date/Time: 08/09/24 04:19
--- NOTE | 2024-08-15 14:25 | PC.NURSE ---
late entry- per RN the 08/09 @0505 dose of Vancomycin was completed at 0710.
== END 2024-08-10 11:37 | disposition home or self-care (01) ==
LOC: ED 08-09 01:29 → AC 08-09 04:29
PROVIDERS: Internal Medicine; Admitting Provider Internal Medicine; Emergency Provider Emergency Medicine; PCP Family Medicine; Referring Provider Emergency Medicine; Visit Provider Internal Medicine
DX: E10.621 Type 1 diabetes mellitus with foot ulcer (principal); L97.415 Non-pressure chronic ulcer of right heel and midfoot with muscle involvement without evidence of necrosis; E10.22 Type 1 diabetes mellitus with diabetic chronic kidney disease; N18.9 Chronic kidney disease, unspecified; K70.30 Alcoholic cirrhosis of liver without ascites; K59.00 Constipation, unspecified; F32.A Depression, unspecified; Z79.4 Long term (current) use of insulin; Z72.0 Tobacco use
CPT/HCPCS: 36415; 74177; 80048; 80053; 81001; 81003; 82962; 83036; 83605; 83690; 83735; 85007; 85025; 85651; 86140; 87040; 96361; 96365; 96366; 96368; 96372; 96375; 96376; 99284; G0378; J1171; J1644; J1885; J2405; J2543; J7121; Q9967

== ENCOUNTER → 2024-08-23 10:34 | Outpatient (CLI) | payer OTHER, SELFPAY ==
[2024-08-09 09:00] VITALS: BMI 19.5
== END ==
PROVIDERS: PCP Family Medicine; Referring Provider Family Medicine; Visit Provider Surgery
DX: E11.621 Type 2 diabetes mellitus with foot ulcer (principal); E11.42 Type 2 diabetes mellitus with diabetic polyneuropathy; L97.412 Non-pressure chronic ulcer of right heel and midfoot with fat layer exposed; L84 Corns and callosities
CPT/HCPCS: 11042; 99213

== ENCOUNTER → 2024-08-23 11:26 | Outpatient (CLI) | payer OTHER, SELFPAY ==
[2024-08-09 09:00] VITALS: BMI 19.5
[2024-08-23 13:10] LABS: Add Manual Diff / Slide Review NO; Basophils Absolute Auto 0 /uL (0-100); Basophils Percent Auto 0.3 % (0-2); Eosinophils Absolute Auto 100 /uL (0-450); Eosinophils Percent Auto 1.3 % (2-4); Hematocrit 35.1 % (41-53); Hemoglobin 12.1 g/dL (13.5-17.5); Lymphocytes Absolute Auto 900 /uL (1100-4500); Lymphocytes Percent Auto 22.4 % (25-40); Mean Corpuscular HGB Conc 34.6 % (30-36); Mean Corpuscular Hemoglobin 34.3 PG (26-34); Mean Corpuscular Volume 99.1 fL (80-100); Monocytes Absolute Auto 200 /uL (0-900); Neutrophils Absolute Auto 2700 /uL (1500-7000); Platelet Count 86 X10^3/uL (150-400); Red Blood Cell Count 3.54 X10^6/uL (4.5-5.9); Red Cell Distribution Width 13.7 % (11.6-14.8); White Blood Cell Count 3.9 X10^3/uL (4.5-11.0)
[2024-08-23 13:33] LABS: Alanine Aminotransferase 50 IU/L (<50); Albumin 4.6 g/dL (3.5-5.0); Albumin Globulin Ratio 1.8 (1.0-2.8); Alkaline Phosphatase 80 U/L (38-126); Aspartate Aminotransferase 68 IU/L (17-59); Bilirubin Total 0.5 mg/dL (0.2-1.3); Blood Urea Nitrogen 25 mg/dL (9-20); C-Reactive Protein Quant 0.8 mg/dL (<1.0); Calcium 8.8 mg/dL (8.4-10.2); Carbon Dioxide 17 mmol/L (22-32); Chloride 106 mmol/L (98-107); Estimated Glomerular Filt Rate > 60 mL/min (>60); Globulin 2.6 g/dL (1.7-4.1); Glucose 221 mg/dL (70-99); HEMOLYSIS 20 (0-50); Potassium 5.1 mmol/L (3.4-5.1); Sodium 137 mmol/L (137-145); Total Protein 7.2 g/dL (6.3-8.2)
== END ==
PROVIDERS: PCP Family Medicine; Referring Provider Internal Medicine Infectious Disease; Visit Provider Internal Medicine Infectious Disease
DX: T14.8XXA Other injury of unspecified body region, initial encounter (principal)
CPT/HCPCS: 36415; 80053; 85025; 86140

== ENCOUNTER → 2024-09-19 10:21 | Outpatient (CLI) | payer OTHER, SELFPAY ==
[2024-08-09 09:00] VITALS: BMI 19.5
== END ==
LOC: WC 10:22
PROVIDERS: PCP Family Medicine; Referring Provider Family Medicine; Visit Provider Surgery
DX: E11.621 Type 2 diabetes mellitus with foot ulcer (principal); E11.42 Type 2 diabetes mellitus with diabetic polyneuropathy; L97.412 Non-pressure chronic ulcer of right heel and midfoot with fat layer exposed; L84 Corns and callosities; R60.0 Localized edema
CPT/HCPCS: 11042; 99213

== ENCOUNTER → 2024-09-25 14:17 | Outpatient (CLI) | payer OTHER, SELFPAY ==
[2024-08-09 09:00] VITALS: BMI 19.5
[2024-09-25 15:12] LABS: Add Manual Diff / Slide Review NO; Basophils Absolute Auto 0 /uL (0-100); Basophils Percent Auto 0.3 % (0-2); Eosinophils Absolute Auto 100 /uL (0-450); Hematocrit 38.2 % (41-53); Hemoglobin 12.9 g/dL (13.5-17.5); Lymphocytes Absolute Auto 1500 /uL (1100-4500); Lymphocytes Percent Auto 27.3 % (25-40); Mean Corpuscular HGB Conc 33.8 % (30-36); Mean Corpuscular Hemoglobin 34.2 PG (26-34); Mean Corpuscular Volume 100.9 fL (80-100); Monocytes Absolute Auto 600 /uL (0-900); Monocytes Percent Auto 11.5 % (3-14); Neutrophils Absolute Auto 3200 /uL (1500-7000); Neutrophils Percent Auto 58.9 % (50-75); Red Blood Cell Count 3.78 X10^6/uL (4.5-5.9); Red Cell Distribution Width 13.5 % (11.6-14.8); White Blood Cell Count 5.4 X10^3/uL (4.5-11.0)
[2024-09-25 15:24] LABS: Alanine Aminotransferase 30 IU/L (<50); Albumin 4.4 g/dL (3.5-5.0); Albumin Globulin Ratio 1.5 (1.0-2.8); Alkaline Phosphatase 78 U/L (38-126); Aspartate Aminotransferase 48 IU/L (17-59); BUN Creatinine Ratio 17.1 (6-22); Bilirubin Total 0.6 mg/dL (0.2-1.3); Blood Urea Nitrogen 25 mg/dL (9-20); Calcium 8.7 mg/dL (8.4-10.2); Carbon Dioxide 23 mmol/L (22-32); Chloride 106 mmol/L (98-107); Estimated Glomerular Filt Rate 59 mL/min (>60); Globulin 2.9 g/dL (1.7-4.1); Glucose 304 mg/dL (70-99); HEMOLYSIS < 15 (0-50); Sodium 138 mmol/L (137-145); Total Protein 7.3 g/dL (6.3-8.2)
[2024-09-25 15:30] LABS: Platelet Count 27 X10^3/uL (150-400)
[2024-09-25 15:59] LABS: Anisocytosis 1+
[2024-09-25 16:01] LABS: Macrocytosis 1+
== END ==
LOC: LAB 14:19
PROVIDERS: PCP Family Medicine; Referring Provider Internal Medicine Hematology & Oncology; Visit Provider Internal Medicine Hematology & Oncology
DX: C92.10 Chronic myeloid leukemia, BCR/ABL-positive, not having achieved remission (principal); F41.9 Anxiety disorder, unspecified
CPT/HCPCS: 36415; 80053; 81206; 81207; 85025

== ENCOUNTER 2024-11-11 03:51 | Emergency (ER) | payer OTHER, SELFPAY ==
[2024-08-09 09:00] VITALS: BMI 19.5
[2024-11-11] VITALS (9 sets, daily range): BP systolic 105–156; BP diastolic 71–101; PULSE 56–80; RESP 12–23; TEMP 36.1; O2SAT 97–100; BMI 19.8
--- NOTE | 2024-11-11 03:49 | ED_ITS ---
HPI - General Adult General Chief complaint: Altered Mental Status Stated complaint: low blood sugar- diabetic History of Present Illness HPI narrative: 49-year-old insulin dependent diabetes diabetic CML alcohol use disorder history of heart failure presents via EMS C-collar whereby apparently he had low blood sugar in the 40s and has been on the ground for over 6 hours as he was getting up to go to the kitchen and hit his head chest and abdomen against the coffee table. He is hurting in his arms back stomach chest at this time. He states his back feels worse than before and feels like the back infection that he had before in the remote past. Other than what is stated 14 point review of system is negative. Related Data Home Medications ?Medication ?Instructions ?Recorded ?Confirmed dasatinib 100 mg tablet (Sprycel) 100 mg PO DAILY 04/1408/09/24 albuterol sulfate 2.5 mg/3 mL 2.5 mg inhalation 4XD CO N wheezing 05/01/23 08/09/24 (0.083 %) solution for nebulization insulin glargine 100 unit/mL (3 8 unit SUBCUT DAILY 08/09/24 mL) subcutaneous pen (Lantus Solostar U-100 Insulin) Previous Rx's ?Medication ?Instructions ?Recorded BD U/F Hilda Pen Needle [id number] #100 ea 06/13/18 insulin lispro 100 unit/mL 1 - 12 unit (0.01 - 0.12 mL ) 05/11/22 subcutaneous pen (Humalog KwikPen SUBCUT TIDCC #1 ea (U-100) Insulin) glucagon HCl 1 mg solution for 1 mg SUBCUT Q20M PRN hy poglycemia 10/23/22 injection (Glucagon (HCl) #2 ea Emergency Kit) blood-glucose transmitter (Dexcom #1 ea 11/06/22 G6 Transmitter device) blood-glucose sensor (Dexcom G6 #3 ea 06/14/23 Sensor device) doxycycline hyclate 100 mg capsule 100 mg PO BID #14 c aps 08/10/24 lorazepam 1 mg tablet 1 mg PO Q6H PRN anxiety #15 tabs 08/10/24 oxycodone 5 mg capsule 5 mg PO Q8H PRN pain #20 cap s 08/10/24 pregabalin 50 mg capsule 50 mg PO TID #90 caps Allergies Allergy/AdvReac Type Severity Reaction Status Date / Time adhesive Allergy Intermediate rash, skin Verified 11/11/24 04:00 tear latex (LATEX) Allergy Unknown rash, skin Verified 11/11/24 04:00 tear Review of Systems Review of Systems ROS Unobtainable: All systems reviewed & are unremarkable except as noted in HPI and below Patient History Medical History Ataxia Cervical radiculopathy Cervicalgia Cancer of blood vessel Pancytopenia Chronic, continuous use of opioids Central cord syndrome at C3 level of cervical spinal cord Thrombocytopenia Alcoholism Insulin dependent diabetes mellitus CML (chronic myelocytic leukemia) Surgical History Status post appendectomy Family History Grandfather Diabetes mellitus Mother Cancer History of heart disease Father Hyperlipidemia History of heart disease Social History household members: none Tobacco: How many years used: 10 Smokeless tobacco user: chewing tobacco (current ) quit status: considering quitting alcohol intake: former substance use type: former substance user, marijuana and opiates Exam Narrative Exam Narrative: GENERAL: [49] year old patient appears stated age. Well-developed patient, in mild distress. HEAD: Atraumatic. Normocephalic. EYES: Pupils equal round and reactive. Extraocular motions intact. No scleral icterus. No injection or drainage. ENT: Nose without bleeding, purulent drainage. Throat without erythema, tonsillar hypertrophy or exudate. Airway patent. Blood on the lower lips NECK: Trachea midline. Non tender CARDIOVASCULAR: Regular rate and rhythm without murmurs, gallops, or rubs. RESPIRATORY: Clear to auscultation. Breath sounds equal bilaterally. No wheezes, rales, or rhonchi. GASTROINTESTINAL: Abdomen soft, non-tender, nondistended. EXTREMITIES: No edema or joint tenderness. BACK: Nontender without deformity or crepitance. No flank tenderness. NEURO: AOx3. GCS 15 SKIN: Tenderness to palpation midsternal and left-sided chest region with redness to left-sided chest, and diffuse tenderness of belly with redness diffusely periumbilical and epigastric region Initial Vital Signs Initial Vital Signs: Vital Signs Temperature 97.0 F L 11/11/24 04:00 Pulse Rate 76 11/11/24 04:00 Respiratory Rate 13 11/11/24 04:00 Blood Pressure 105/71 11/11/24 04:00 Pulse Oximetry 99 11/11/24 04:00 Oxygen Delivery Method Room Air 11/11/24 04:00 Course Orders Ordered: ED Orders 11/11/24 03:50 Complete Blood Count AUTO DIFF Stat Comprehensive Metabolic Panel Stat Lipase Stat Troponin & CK Cardiac Panel Stat 11/11/24 04:13 CT Trauma Chest Abdomen Pelvis Stat CT cervical spine wo con Stat CT head/brain wo con Stat EKG-12 Lead Stat Discontinued Medications Sodium Chloride (Normal Saline 0.9%) 1,000 mls @ 1,000 mls/hr IV BOLUS ONE Stop: 11/11/24 05:20 Last Infusion: 11/11/24 06:25 Dose: Infused Documented By: Admin: 11/11/24 04:27 Dose: 1,000 mls/hr Documented By: RASHAD Morphine Sulfate (Morphine 4 Mg/Ml Inj) 4 mg IV NOW ONE Stop: 11/11/24 04:22 Last Admin: 11/11/24 04:26 Dose: 4 mg Documented By: RASHAD Morphine Sulfate (Morphine 2 Mg/Ml Inj) 2 mg IV NOW ONE Stop: 11/11/24 06:35 Last Admin: 11/11/24 06:39 Dose: 2 mg Documented By: RASHAD Vital Signs Vital signs: Vital Signs - 8 hr 11/11/24 04:00 11/11/24 04:17 11/11/24 04:44 Temperature 97.0 F L Pulse Rate 76 69 67 Respiratory Rate 13 19 Blood Pressure 105/71 Pulse Oximetry 99 98 97 Oxygen Delivery Method Room Air 11/11/24 05:00 11/11/24 05:30 11/11/24 06:00 Temperature Pulse Rate 62 60 58 L Respiratory Rate 13 13 13 Blood Pressure Pulse Oximetry 97 97 98 Oxygen Delivery Method Medical Decision Making Lab Data 11/11/24 03:50 11/11/24 03:50 Labs: Lab Results 11/11/24 11/11/24 11/11/24 Range/Units 03:50 03:55 06:21 WBC 6.4 (4.5-11.0) X10^3/uL RBC 3.70 L (4.5-5.9) X10^6/uL Hgb 12.4 L (13.5-17.5) g/dL Hct 36.5 L (41-53) % MCV 98.7 (80-100) fL MCH 33.5 (26-34) PG MCHC 34.0 (30-36) % RDW 13.6 (11.6-14.8) % Plt Count 84 L (150-400) X10^3/uL Neut % (Auto) 88.6 H (50-75) % Lymph % (Auto) 8.2 L (25-40) % Clarke % (Auto) 3.1 (3-14) % Eos % (Auto) 0.0 L (2-4) % Baso % (Auto) 0.1 (0-2) % Neut # (Auto) 5600 (3873-5435) /uL Lymph # (Auto) 500 L (0184-1296) /uL Clarke # (Auto) 200 (0-900) /uL Eos # (Auto) 0 (0-450) /uL Baso # (Auto) 0 (0-100) /uL Sodium 136 L (137-145) mmol/L Potassium 4.3 (3.4-5.1) mmol/L Chloride 106 (98-107) mmol/L Carbon Dioxide 17 L (22-32) mmol/L BUN 20 (9-20) mg/dL Creatinine 1.33 H (0.66-1.25) mg/dL Estimated GFR > 60 (>60) mL/min BUN/Creatinine Ratio 15.0 (6-22) Glucose 35 L* (70-99) mg/dL POC Whole Bld Glucose 173 H 81 (70-99) mg/dL Calcium 8.1 L (8.4-10.2) mg/dL Total Bilirubin 0.4 (0.2-1.3) mg/dL AST 58 (17-59) IU/L ALT 33 (<50) IU/L Alkaline Phosphatase 74 (38-126) U/L Total Creatine Kinase 110 (55-170) U/L Troponin I 0.014 (0.01-0.034) ng/mL Total Protein 7.3 (6.3-8.2) g/dL Albumin 4.4 (3.5-5.0) g/dL Globulin 2.9 (1.7-4.1) g/dL Albumin/Globulin Ratio 1.5 (1.0-2.8) Lipase 11 L (23-300) U/L 11/11/24 Range/Units 07:15 WBC (4.5-11.0) X10^3/uL RBC (4.5-5.9) X10^6/uL Hgb (13.5-17.5) g/dL Hct (41-53) % MCV (80-100) fL MCH (26-34) PG MCHC (30-36) % RDW (11.6-14.8) % Plt Count (150-400) X10^3/uL Neut % (Auto) (50-75) % Lymph % (Auto) (25-40) % Clarke % (Auto) (3-14) % Eos % (Auto) (2-4) % Baso % (Auto) (0-2) % Neut # (Auto) (6727-3888) /uL Lymph # (Auto) (8471-5998) /uL Clarke # (Auto) (0-900) /uL Eos # (Auto) (0-450) /uL Baso # (Auto) (0-100) /uL Sodium (137-145) mmol/L Potassium (3.4-5.1) mmol/L Chloride (98-107) mmol/L Carbon Dioxide (22-32) mmol/L BUN (9-20) mg/dL Creatinine (0.66-1.25) mg/dL Estimated GFR (>60) mL/min BUN/Creatinine Ratio (6-22) Glucose (70-99) mg/dL POC Whole Bld Glucose 93 (70-99) mg/dL Calcium (8.4-10.2) mg/dL Total Bilirubin (0.2-1.3) mg/dL AST (17-59) IU/L ALT (<50) IU/L Alkaline Phosphatase (38-126) U/L Total Creatine Kinase (55-170) U/L Troponin I (0.01-0.034) ng/mL Total Protein (6.3-8.2) g/dL Albumin (3.5-5.0) g/dL Globulin (1.7-4.1) g/dL Albumin/Globulin Ratio (1.0-2.8) Lipase (23-300) U/L Point of Care Testing Glucose POC 173 Point of care testing: Point of Care Testing Glucose POC 173 ECG Data Interpretation: SR HR 69 CO 214 QRS [address]-t wave change Unchange from 03/18/23 [facility] Narrative Medical decision making narrative: All lab work, vital signs, nurse triage note, medication list, previous ER visits, and all imaging studies are reviewed. Patient given 1 L of normal saline bolus and morphine [address] chest abdomen and pelvis showed cholelithiasis atrophy of the pancreas and dilatation of the pancreatic duct with pancreatic calcification likely related to chronic pancreatitis. CT cervical spine showed spondylitic changes of the cervical spine with no acute traumatic injury. CT head showed no acute intracranial abnormality. Differential diagnosis hypoglycemia, brain hemorrhage, fracture, dislocation, contusion, pneumothorax, spleen injury, liver laceration. 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 Calcium 8.1 troponin 0.014 lipase 11. Patient given additional morphine 2 mg IV x1. Patient tolerating p.o. challenge. Blood sugar on recheck 93 Discharge Plan Departure Patient Disposition: Home Clinical Impression: Hypoglycemia Instructions: DI for Hypoglycemia Activity Restrictions/Additional Instructions: Return with new or worsening symptoms. Follow up PCP Wednesday if no improvement in symptoms. Prescriptions: No Action (DME) BD U/F Hilda Pen Needle [id number] .Route .MEDSUPPLY Qty: 100 3RF Dose Instruction: As directed Rx Instructions: BD U/F Hilda Pen Needle [id number] use as directed with insulin insulin lispro [Humalog KwikPen Insulin] 100 unit/mL insulin pen 1 - 12 unit subcut TIDCC Qty: 1 3RF Patient Comments: patient states none today Sprycel 100 mg tablet 100 mg PO DAILY Patient Comments: pt started for his CML glucagon HCl [Glucagon (HCl) Emergency Kit] 1 mg recon soln 1 mg SUBCUT Q20M PRN (Reason: hypoglycemia) Qty: 2 0RF Rx Instructions: until target blood sugar attained (DME) Dexcom G6 Transmitter Device See Rx Instructions .Route Qty: 1 3RF Rx Instructions: As directed (DME) Dexcom G6 Sensor Device See Rx Instructions .Route Qty: 3 5RF Rx Instructions: As directed insulin glargine [Lantus Solostar U-100 Insulin] 100 unit/mL (3 mL) insulin pen 8 unit SUBCUT DAILY Rx Instructions: Takes midday pregabalin 50 mg capsule 50 mg PO TID Qty: 90 2RF oxycodone 5 mg capsule 5 mg PO Q8H PRN (Reason: pain) Qty: 20 0RF doxycycline hyclate 100 mg capsule 100 mg PO BID Qty: 14 0RF lorazepam 1 mg tablet 1 mg PO Q6H PRN (Reason: anxiety) Qty: 15 0RF albuterol sulfate 2.5 mg /3 mL (0.083 %) solution for nebulization 2.5 mg inhalation 4XD PRN (Reason: wheezing) Patient Comments: No longer taking Referrals: Sergio Willingham DO [Primary Care Provider, Family Practice] Stand Alone Forms: Patient Portal/API
--- NOTE | 2024-11-11 04:13 | DI.CT.S_ITS ---
PROCEDURE: CT CERVICAL SPINE WO CON INDICATIONS: trauma TECHNIQUE: Noncontrast 3 mm thick sections acquired from the skull base to the T4 level. Sagittal and coronal reformats were then constructed. For radiation dose reduction, the following was used: automated exposure control, adjustment of mA and/or kV according to patient size. COMPARISON: [facility], CT, CT TRAUMA CHEST ABDOMEN PELVIS, 11/11/2024, 4:19. [facility], CT, CT HEAD/BRAIN WO CON, 11/11/2024, 4:19. [facility], CT, CT CERVICAL SPINE WO CON, 05/01/2023, 12:45. FINDINGS: Image quality: There is artifact associated with the metallic hardware. Artifact from the metallic hardware is reduced by metal reconstruction algorithm. Bones: No fractures or dislocations. Visualized superior ribs are intact. Extensive fixation hardware can be seen anteriorly and posteriorly. No findings of hardware failure or hardware loosening are seen. There has been removal of portions of the posterior elements. Bone grafting material is noted. Underlying degenerative changes are seen. Soft tissues: Prevertebral soft tissues are normal in thickness. No paravertebral hematomas. No apical pneumothoraces. IMPRESSION: No displaced fracture or traumatic subluxation. Extensive postoperative changes are seen, without complication observed. Note: No significant discrepancy from the preliminary report. Dictated by: Hector Lai M.D. on 11/11/2024 at 8:17 Approved by: Hector Lai M.D. on 11/11/2024 at 8:18
--- NOTE | 2024-11-11 04:13 | DI.CT.S_ITS ---
PROCEDURE: CT TRAUMA CHEST ABDOMEN PELVIS INDICATIONS: Found down, trauma TECHNIQUE: MDCT axial chest images were obtained with IV contrast in the arterial phase. Maximum intensity projections and multiplanar reformats were obtained. MDCT axial abdomen and pelvis images were obtained with IV contrast in the portal venous phase. Multiplanar reformats were obtained. Optional delayed phase scanning may also be obtained Advanced techniques were used to lower patient radiation exposure. COMPARISON:[facility], CT, CT ANGIO CHEST PE PROTOCOL, 05/01/2023, 15:58. [facility], CT, CT CERVICAL SPINE WO CON, 11/11/2024, 4:19. [facility], CT, CT HEAD/BRAIN WO CON, 11/11/2024, 4:19. [facility], CT, CT ABDOMEN PELVIS W CON, 08/09/2024, 2:44. FINDINGS Image Quality: Diagnostic. Chest: Lungs and pleura: No pneumothorax or hemothorax. No pulmonary contusions or lacerations. No solid pulmonary nodule requiring follow-up. Vascular: No dissection or pseudoaneurysm. No incidental central pulmonary embolism. No hemopericardium. There is a direct origin of the left vertebral artery from the aortic arch. Mediastinum: No mediastinum hematoma. No suspicious mass or lymph nodes. No actionable thyroid nodules. Chest wall: Remote right posterior rib fractures are seen. No acute rib fracture nodes are seen. Intact clavicles, scapula, and glenohumeral joint. Thoracic spine: Cervical spine fixation hardware is partially seen. No acute fracture or traumatic subluxation. ABDOMEN and PELVIS: Liver: No laceration or capsular hematoma. Diffuse fatty liver infiltration is noted. The liver demonstrates a mildly nodular contour. Gallbladder: Gallstones are seen within the gallbladder. No additional CT findings of cholecystitis are seen. Biliary system: Non-dilated. Pancreas: Pancreatic atrophy is seen, with diffuse pancreatic calcifications. There is dilatation of the pancreatic duct, measuring up to 8 mm Spleen: No laceration or capsular hematoma. Adrenals: No suspicious nodules. Kidneys: No contrast extravasation or hydronephrosis. No solid masses. Mild atrophy is seen of the left kidney. Vessels and lymph nodes: No pathology lymph nodes by size criteria. No dissection or aneurysm. No retroperitoneal hematoma. A recanalized umbilical vein is seen. Mild splenic varices can be seen. Bowel and peritoneum: No suspicious region of mesenteric hemorrhage or hemoperitoneum. No bowel obstruction. Pelvis: Unremarkable bladder. Pelvic ring and femurs: No pelvic ring disruption. No hip fractures. Lumbar spine: No acute fracture or traumatic subluxation. L4-L5 postoperative hardware can be seen. Abdominal wall: No drainable fluid collection or hematoma. IMPRESSION: No acute traumatic injury to the chest, abdomen, or pelvis. Cirrhotic appearing liver, with a recanalized umbilical vein and mild splenic varices. Chronic pancreatitis. Additional findings: Cervical spine fixation hardware Remote right posterior rib fractures Fatty liver infiltration Gallstones Mild atrophy of the left kidney L4-L5 postoperative hardware Note: No significant discrepancy from the preliminary report. Dictated by: Hector Lai M.D. on 11/11/2024 at 8:21 Approved by: Hector Lai M.D. on 11/11/2024 at 8:27
--- NOTE | 2024-11-11 04:13 | DI.CT.S_ITS ---
PROCEDURE: CT HEAD/BRAIN WO CON INDICATIONS: trauma TECHNIQUE: Noncontrast 4.5 mm thick angled axial sections acquired from the foramen magnum to the vertex, with coronal and sagittal reformats. For radiation dose reduction, the following was used: automated exposure control, adjustment of mA and/or kV according to patient size. COMPARISON: [facility], CT, CT TRAUMA CHEST ABDOMEN PELVIS, 11/11/2024, 4:19. [facility], CT, CT CERVICAL SPINE WO CON, 11/11/2024, 4:19. [facility], CT, CT HEAD/BRAIN WO CON, 05/01/2023, 12:45. FINDINGS: Image quality: Diagnostic. CSF spaces: Basal cisterns are patent. No extra-axial fluid collections. Ventricles are normal in size and shape. Brain: No midline shift. No intracranial mass effect or hemorrhage. Patino- white matter interface is normal. Atherosclerotic calcification of the aortic arch is noted. Skull and face: Calvarium and visualized facial bones are intact, without suspicious lesions. Sinuses: Visualized sinuses and mastoids are clear. IMPRESSION: No acute intracranial hemorrhage is seen. No acute intracranial pathology. Note: No significant discrepancy from the preliminary report. Dictated by: Hector Lai M.D. on 11/11/2024 at 8:16 Approved by: Hector Lai M.D. on 11/11/2024 at 8:16
--- NOTE | 2024-11-11 04:19 | EKG_ITS ---
[address] [address] Test Date: 2024-11-11 Pat Name: Lalo Han Department: [facility] Room: Gender: Male [employer]: LUIS MANUEL : 1975 Requested By: Order Number: [id number] Reading MD: Prudencio Romeo Measurements Intervals [place] Rate: 69 P: 75 WV: 214 QRS: 66 QRSD: 120 T: 76 QT: 476 QTc: 510 Interpretive Statements Sinus rhythm with 1st degree AV block Nonspecific intraventricular conduction delay Minimal voltage criteria for LVH, may be normal variant ( [place] product ) Electronically Signed On 11-17-2024 17:53:50 PDT by Prudencio Romeo
[2024-11-11 04:20] LABS: Add Manual Diff / Slide Review NO; Hematocrit 36.5 % (41-53); Hemoglobin 12.4 g/dL (13.5-17.5); Lymphocytes Absolute Auto 500 /uL (1100-4500); Mean Corpuscular HGB Conc 34.0 % (30-36); Mean Corpuscular Hemoglobin 33.5 PG (26-34); Mean Corpuscular Volume 98.7 fL (80-100); Platelet Count 84 X10^3/uL (150-400)
[2024-11-11 04:26] LABS: Alanine Aminotransferase 33 IU/L (<50); Albumin 4.4 g/dL (3.5-5.0); Albumin Globulin Ratio 1.5 (1.0-2.8); Alkaline Phosphatase 74 U/L (38-126); Blood Urea Nitrogen 20 mg/dL (9-20); Calcium 8.1 mg/dL (8.4-10.2); Carbon Dioxide 17 mmol/L (22-32); Chloride 106 mmol/L (98-107); Creatine Kinase 110 U/L (55-170); Estimated Glomerular Filt Rate > 60 mL/min (>60); Globulin 2.9 g/dL (1.7-4.1); HEMOLYSIS < 15 (0-50); Lipase 11 U/L (23-300); Potassium 4.3 mmol/L (3.4-5.1); Sodium 136 mmol/L (137-145); Total Protein 7.3 g/dL (6.3-8.2)
[2024-11-11] MEDS: MORPHINE 4 MG/ML INJ IV (04:26)
[2024-11-11] MEDS: SODIUM CHLORIDE 0.9% 1,000 ML 1000 ML IV (04:27)
[2024-11-11 04:36] LABS: Glucose 35 mg/dL (70-99)
[2024-11-11 04:37] LABS: Troponin I 0.014 ng/mL (0.01-0.034)
--- NOTE | 2024-11-11 06:26 | PC.NURSE ---
Verbal order from provider given to remove pt's c-collar. Pt still complaining of 10/10 pain. MD aware. Pt's BG was re-checked (81). Apple juice and an egg sandwich given w/provider okay.
[2024-11-11] MEDS: MORPHINE 2 MG/ML INJ IV (06:39)
== END 2024-11-11 07:47 | disposition home or self-care (01) ==
PROVIDERS: Emergency Provider Family Medicine; PCP Family Medicine
DX: E11.649 Type 2 diabetes mellitus with hypoglycemia without coma (principal); R41.82 Altered mental status, unspecified
CPT/HCPCS: 36415; 70450; 71275; 72125; 74177; 80053; 82550; 82962; 83690; 84484; 85025; 93005; 96361; 96374; 96376; 99284; J2270; Q9967

== ENCOUNTER → 2025-01-15 09:44 | Outpatient (CLI) | payer OTHER, SELFPAY ==
[2024-08-09 09:00] VITALS: BMI 19.5
[2025-01-15 10:36] LABS: Hemoglobin A1C% w Est Avg Glu 5.3 % (4.0-6.0)
[2025-01-15 10:42] LABS: HEMOLYSIS < 15 (0-50); Iron 93 ug/dL (49-181)
[2025-01-15 10:46] LABS: Alanine Aminotransferase 29 IU/L (<50); Albumin 4.6 g/dL (3.5-5.0); Albumin Globulin Ratio 1.6 (1.0-2.8); Alkaline Phosphatase 68 U/L (38-126); Blood Urea Nitrogen 28 mg/dL (9-20); Calcium 8.6 mg/dL (8.4-10.2); Carbon Dioxide 16 mmol/L (22-32); Chloride 113 mmol/L (98-107); Estimated Glomerular Filt Rate 55 mL/min (>60); Globulin 2.9 g/dL (1.7-4.1); Glucose 170 mg/dL (70-99); HEMOLYSIS < 15 (0-50); Potassium 4.5 mmol/L (3.4-5.1); Sodium 142 mmol/L (137-145); Total Protein 7.5 g/dL (6.3-8.2)
[2025-01-15 10:55] LABS: Percent Iron Saturation 41 % (20-50); Total Iron Binding Capacity 225 ug/dL (261-462); Transferrin 177 mg/dL (206-381)
[2025-01-15 11:00] LABS: Vitamin D 25 Hydroxy (D3) 18.8 ng/mL (30.0-100.0)
[2025-01-15 11:07] LABS: Add Manual Diff / Slide Review NO; Hematocrit 33.8 % (41-53); Hemoglobin 11.6 g/dL (13.5-17.5); Lymphocytes Absolute Auto 500 /uL (1100-4500); Mean Corpuscular HGB Conc 34.3 % (30-36); Mean Corpuscular Hemoglobin 34.8 PG (26-34); Mean Corpuscular Volume 101.6 fL (80-100); Platelet Count 50 X10^3/uL (150-400)
[2025-01-15 11:13] LABS: TSH w/ Reflex to FT4 1.25 uIU/mL (0.47-4.68)
[2025-01-15 11:21] LABS: Ferritin 267 ng/mL (18-464)
[2025-01-15 11:33] LABS: Vitamin B12 772 pg/mL (239-931)
[2025-01-16 07:09] LABS: Insulin Level Total 2.3 uIU/mL (2.6-24.9)
[2025-01-17 07:09] LABS: Insulin Level Total 2.3 uIU/mL (2.6-24.9)
[2025-01-18 16:40] LABS: Interpretation Positive (.); e13a2(b2a2) transcript 0.0336 % (.); e14a(b3a2) transcript <0.0032 % (.)
== END ==
PROVIDERS: PCP Family Medicine; Referring Provider Internal Medicine Hematology & Oncology; Visit Provider Internal Medicine Hematology & Oncology
DX: C92.10 Chronic myeloid leukemia, BCR/ABL-positive, not having achieved remission (principal); F41.9 Anxiety disorder, unspecified; E16.2 Hypoglycemia, unspecified; E11.9 Type 2 diabetes mellitus without complications; Z79.4 Long term (current) use of insulin; Z79.891 Long term (current) use of opiate analgesic; K70.30 Alcoholic cirrhosis of liver without ascites; D64.9 Anemia, unspecified
CPT/HCPCS: 36415; 80053; 81206; 81207; 82306; 82607; 82728; 83036; 83525; 83540; 83550; 84443; 84681; 85025; 86337